=== PATIENT | female | born 1950 | race Caucasian/White ===

== ENCOUNTER 2023-02-19 15:50 | Outpatient (REF) | payer MEDICARE, MEDICAID, SELFPAY ==
[2023-02-20 09:32] LABS: Bilirubin Urine NEGATIVE (NEGATIVE); Blood Urine TRACE-I (NEGATIVE); Clarity Urine CLEAR (CLEAR); Color Urine LT. YELLOW (YELLOW); Glucose Urine UA 500 mg/dL (NEGATIVE); Ketones Urine 15 mg/dL (NEGATIVE); Leukocyte Esterase Urine SMALL (NEGATIVE); Nitrite Urine POSITIVE (NEGATIVE); Protein Urine NEGATIVE (NEG/TRACE); Urobilinogen Urine 0.2 EU/dL (0.2-1.0); pH Urine 5.5 (5.0-9.0)
[2023-02-20 09:41] LABS: Urine Microscopic Indicated YES
[2023-02-20 09:48] LABS: Bacteria Urine MODERATE #/HPF (NONE SEEN); Calcium Oxalate Crystals Urine RARE; Crystals Seen? Seen #/HPF (None Seen); Mucus Urine NONE SEEN (NONE SEEN); Squamous Epithelial Cell Urine FEW #/LPF (NONE/RARE)
[2023-02-20 09:49] LABS: Cast Seen? NONE SEEN #/LPF (NONE SEEN); Urine Culture Indicated YES
== END 2023-02-19 15:51 | disposition home or self-care (01) ==
LOC: LAB 15:50
PROVIDERS: PCP Family Medicine; Visit Provider Nurse Practitioner Family
DX: R41.82 Altered mental status, unspecified (principal)
CPT/HCPCS: 81001; 87086; 87150; 87186

== ENCOUNTER 2023-02-20 03:18 | Outpatient (REF) | payer MEDICARE, MEDICAID, SELFPAY ==
[2023-02-20 09:21] LABS: Basophils Absolute Auto 0.1 10^3/uL (0.0-0.1); Basophils Percent Auto 1.2 % (0.2-2.0); Eosinophils Absolute Auto 0.3 10^3/uL (0.0-0.7); Eosinophils Percent Auto 4.8 % (0.9-7.0); Hematocrit 36.6 % (36.0-48.0); Hemoglobin 11.7 g/dL (12.0-16.0); Immature Granulocytes Abs Auto 0.01 10^3/uL (0.00-0.03); Immature Granulocytes Pct Auto 0.2 % (0.0-0.5); Lymphocytes Absolute Auto 1.7 10^3/uL (1.2-3.8); Lymphocytes Percent Auto 28.7 % (20.5-60.0); Mean Corpuscular Hemoglobin 29.5 pg (26.7-34.0); Mean Corpuscular Volume 92.2 fL (81.0-99.0); Mean Platelet Volume 11.8 fL (9.5-13.5); Monocytes Absolute Auto 0.4 10^3/uL (0.3-0.8); Monocytes Percent Auto 7.6 % (1.7-12.0); Neutrophils Absolute Auto 3.4 10^3/uL (1.4-6.5); Neutrophils Percent Auto 57.5 % (43.0-75.0); Platelet Count 259 10^3/uL (150-450); Red Blood Count 3.97 10^6/uL (4.20-5.40); Red Cell Distribution Width 14.4 % (11.0-15.0); White Blood Count 5.8 10^3/uL (4.0-11.0)
[2023-02-20 09:48] LABS: Alanine Aminotransferase 18 U/L (14-59); Albumin Globulin Ratio 0.8; Alkaline Phosphatase 118 U/L (46-116); Anion Gap 11.4; Aspartate Amino Transferase 17 U/L (15-37); BUN Creatinine Ratio 12.7; Bilirubin Total 0.5 mg/dL (0.2-1.0); Calcium 9.6 mg/dL (8.5-10.1); Carbon Dioxide 28.7 mmol/L (21.0-32.0); Chloride 109 mmol/L (98-107); Estimated GFR (African America >60 (>=60); Estimated GFR (Non-African Ame >60 (>=60); Globulin 3.9 g/dL; Glucose 102 mg/dL (74-106); Potassium 3.1 mmol/L (3.5-5.1); Sodium 146 mmol/L (136-145); Total Protein 6.9 g/dL (6.4-8.2)
== END 2023-02-20 03:19 | disposition home or self-care (01) ==
LOC: LAB 03:18
PROVIDERS: PCP Family Medicine; Visit Provider Nurse Practitioner Family
DX: R41.82 Altered mental status, unspecified (principal)
CPT/HCPCS: 36415; 80053; 85025

== ENCOUNTER 2023-03-06 01:08 | Outpatient (REF) | payer MEDICARE, MEDICAID, SELFPAY ==
--- OUTSIDE RECORDS SUMMARY | 2023-03-06 01:11 | XMS_ITS | CCD ---
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 Mily Beckwith Primary Care Rosemary vailable Dr. Bruce Elias Attending Unavailable Dr. Bruce Elias Referring Unavailable Dr. Bruce Elias Referring Unavailable CHELITA Sandhu Attending Unavailable Lupe, Ms. 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 Repository (7 sources) Penicillins Drug Allergy 9 Hives, Other (See Comments) [facility] Medications Current Medications Medication Drug Class(es) Dates Sig (Normalized) Sig (Original) amLODIPine 5 mg oral tablet (1 source) Dihydropyridine Calcium Channel Shantel take 1 tablet by mouth in the morning amLODIPine (NORVASC) 5 mg tablet Take 1 tablet (5 mg total) by mouth in the morning. 0 Active apixaban 5 mg oral tablet (1 source) Factor Xa Inhibitor Start: 01-21-2023 take 1 tablet by mouth in the morning, then take 1 tablet by mouth at bedtime apixaban (ELIQUIS) 5 mg tablet Take 1 tablet (5 mg total) by mouth in the morning and 1 tablet (5 mg total) before bedtime. 60 tablet 2 01/21/2023 Active calcium carbonate 1250 mg / cholecalciferol 200 unt oral tablet (1 source) Vitamin D take 1 tablet by mouth once in the morning calcium carbonate-vitam in D3 (OSCAL 500 + D) 500 mg(1,250mg) -200 units per tablet Take 1 tablet by mouth in the morning and 1 tablet in the evening. Take with meals. 0 Active docusate sodium 50 mg / sennosides, residential 8.6 mg oral tablet (1 source) take 1 tablet by mouth in the morning sennosides-docu sate sodium (SENNA WITH DOCUSATE SODIUM) 8.6-50 mg Take 1 tablet by mouth in the morning. 0 Active 3 ml insulin aspart, human 100 unt/ml pen injector (17 sources) Insulin Analog insulin aspart U-100 (NovoLOG) 100 unit/mL (3 mL) insulin pen Inject under the skin. 0 Active insulin aspart ( NOVOLOG FLEXPEN U-100 INSULIN SUBCUTANEOUS) Inject subcutaneously. Per sliding scale 0 Active NovoLOG SOLN INJ ECT SUBCUTANEOUSLY DIRECTED. Quantity: 0 Refills: 0 Ordered: 04-Dec-2020 DO Active Comment on above: Inject subcutaneousl y. Per sliding scale insulin glargine 100 unt/ml injectable solution (1 source) Insulin Analog inject 0.15 mL by subcutaneous injection once daily insulin glargine (LANTUS) 100 unit/mL injection Inject 0.15 mL (15 Units total) under the skin nightly. 0 Active insulin lispro (HumaLOG) 100 unit/mL insulin pen (2 sources) Start: 01-22-20 23 insulin lispro (HumaLOG) 100 unit/mL insulin pen Inject 4 Units under the skin in the morning and 4 Units at noon and 4 Units in the evening. Inject with meals. 15 mL 12 01/21/2023 Active Start: 01-21-2023 inject 2-10 [IU] by subcutaneous injection four times daily at mealtime insulin lispro (HumaLOG) 100 unit/mL insulin pen Inject 2-10 Units under the skin 4 (four) times a day with meals and nightly. 15 mL 12 01/21/2023 Active levothyroxine sodium 0.15 mg oral tablet (17 sources) l-Thyroxine take 1 tablet by mouth in the morning levothyroxine (SYNTHROID, LEVOTHROID) 150 MCG tablet Take 1 tablet (150 mcg total) by mouth in the morning. 0 Active Comment on above: Take 150 mcg by mout h once daily. magnesium hydroxide 80 mg/ml oral suspension (1 source) take 30 mL by mouth once daily as needed magnesium hydroxide 400 mg/5 mL suspension Take 30 mL by mouth nightly as needed. 0 Active melatonin 3 mg oral capsule (1 source) take 1 capsule by mouth once daily as needed melatonin 3 mg capsule Take 3 mg by mouth nightly as needed (insomnia). 0 Active ondansetron 4 mg oral tablet (1 source) Serotonin-3 Receptor Antagonist take 1 tablet by mouth every eight hours as needed for nausea and vomiting ondansetron (ZOFRAN) 4 mg tablet Take 1 tablet (4 mg total) by mouth every 8 (eight) hours as needed for nausea or vomiting. 0 Active pregabalin 25 mg oral capsule (1 source) take 1 capsule by mouth in the morning, then take 1 capsule by mouth at bedtime pregabalin (LYRICA) 25 mg capsule Take 1 capsule (25 mg total) by mouth in the morning and 1 capsule (25 mg total) before bedtime. 0 Active sennosides, residential 8.6 mg oral tablet (1 source) Start: 023 take 1 tablet by mouth twice daily as needed for constipation senna (SENOKOT) 8.6 mg tablet Take 1 tablet (8.6 mg total) by mouth 2 (two) times a day as needed for constipation. 30 each 0 01/21/2023 Active 24 hr venlafaxine 37.5 mg extended release oral capsule (1 source) Serotonin and Norepinephrine Reuptake Inhibitor take 1 capsule by mouth every twenty-four hours in the morning venlafaxine XR (EFFEXOR XR) 37.5 mg 24 hr capsule Take 1 capsule (37.5 mg total) by mouth in the morning. 0 Active Completed/Discontinued Medications Medication Drug Class(es) Dates Sig (Normalized) Sig (Original) aspirin 81 mg chewable tablet (20 sources) Platelet Aggregation Inhibitor, Nonsteroidal Anti-inflammatory Drug Start: 07-04-2021 take 1 tablet by mouth once daily Aspirin 81 MG Oral Tablet Chewable CHEW AND SWALLOW 1 TABLET DAILY. Quantity: 90 Refills: 3 Ordered: 04-Jul-2021 Salas Yeung Start : 04-Jul-2021 Active take 1 tablet by mouth in the mo rning aspirin 81 mg Take 1 tablet (81 mg total) by mouth in the morning. 0 Active Comment on above: Take 81 mg by mouth once daily. atorvastatin 40 mg oral tablet (17 sources) HMG-CoA Reductase Inhibitor Start: 07-05-19 take 1 tablet by mouth once daily Atorvastatin Calcium 40 MG Oral Tablet TAKE 1 TABLET EVERY DAY Quantity: 90 Refills: 3 Ordered: 26-Aug-2022 Bruce Elias DO Start : 04-Jul-2021 Active Comment on above: Take 40 mg by mouth once daily. cilostazol 50 mg oral tablet (8 sources) Phosphodiesterase 3 Inhibitor take 1 tablet by mouth twice daily Cilostazol 50 MG Oral Tablet Take 1 tablet twice daily Quantity: 0 Refills: 0 Ordered: 05-Feb-2021 DO Active clopidogrel 75 mg oral tablet (9 sources) P2Y12 Platelet Inhibitor take 1 tablet by mouth once daily clopidogrel (PLAVIX) 75 mg tablet Take 75 mg by mouth once daily. 0 Active Plavix 75 MG Ora l Tablet Quantity: 0 Refills: 0 Ordered: 04-Dec-2020 DO Active Comment on above: Take 75 mg by mouth once daily. 3 ml insulin degludec 100 unt/ml pen injector (14 sources) Insulin Analog inject 5 [IU] by subcutaneous injection once daily at bedtime insulin degludec (TRESIBA FLEXTOUCH U-100) 100 unit/mL (3 mL) injection Inject 5 Units subcutaneously daily at bedtime. 0 Active Tresiba 100 UNIT /ML Subcutaneous Solution As directed. Quantity: 0 Refills: 0 Ordered: 05-Feb-2021 DO Active Comment on above: Inject 5 Units subcu taneously daily at bedtime. iv contrast (will be provided with radiology test) (20 sources) Start: 09-19-2020 iv contrast (will be provided with radiology test) CT Chest W -Inject, intravenously, once for 1 dose.No IV access, insert saline lock prior to the beginning of sedation, infusion, injection of imaging exam. Discontinue saline lock post exam. If Pt. has a central line or IVAD, may access for administration according to line specific nursing protocol. Once exam is complete flush line and de-access according to line specific nursing protocol in the CT contrast administration guidelines link. 1 Each 0 09/19/2020 Active Start: 04-25-2020 iv contrast (w ill be provided with radiology test) CT Chest W -Inject, intravenously, once for 1 dose.No IV access, insert saline lock prior to the beginning of sedation, infusion, injection of imaging exam. Discontinue saline lock post exam. If Pt. has a central line or IVAD, may access for administration according to line specific nursing protocol. Once exam is complete flush line and de-access according to line specific nursing protocol in the CT contrast administration guidelines link. 1 Each 0 04/25/2020 Active Start: 04-20-2019 inject 1 dose intravenously on ce iv contrast (will be provided with radiology test) CT Cardiac - No IV access, insert saline lock prior to the sedation, infusion, injection for imaging exam. Discontinue saline lock post exam. If Pt. has a central line or IVAD, may access for administration according to line specific nursing protocol. Once exam is complete flush line and de-access according to line specific nursing protocol in the CT contrast administration guidelines link. 1 Each 0 04/20/2019 Active Start: 10-13-2018 inject 1 dose intravenously on ce iv contrast (will be provided with radiology test) CT Cardiac - No IV access, insert saline lock prior to the sedation, infusion, injection for imaging exam. Discontinue saline lock post exam. If Pt. has a central line or IVAD, may access for administration according to line specific nursing protocol. Once exam is complete flush line and de-access according to line specific nursing protocol in the CT contrast administration guidelines link. 1 Each 0 10/13/2018 Active Comment on above: CT Cardiac - No IV a ccess, insert saline lock prior to the sedation, infusion, injection for imaging exam. Discontinue saline lock post exam. If Pt. has a central line or IVAD, may access for administration according to line specific nursing protocol. Once exam is complete flush line and de-access according to line specific nursing protocol in the CT contrast administration guidelines link. CT Chest W -Inject, intravenously, once for 1 dose.No IV access, insert saline lock prior to the beginning of sedation, infusion, injection of imaging exam. Discontinue saline lock post exam. If Pt. has a central line or IVAD, may access for administration according to line specific nursing protocol. Once exam is complete flush line and de-access according to line specific nursing protocol in the CT contrast administration guidelines link. losartan potassium 25 mg oral tablet (16 sources) Angiotensin 2 Receptor Shantel take 2 tablets by mouth once daily losartan (COZAAR) 25 mg tablet Take 50 mg by mouth once daily. 0 Active take 1 tablet by mouth once michelle y Losartan Potassium 50 MG Oral Tablet TAKE 1 TABLET DAILY. Quantity: 90 Refills: 3 Ordered: 11-Oct-2021 Salas Yeung Active correct dose and tablet form. take 1 tablet by mouth once michelle y Losartan Potassium 100 MG Oral Tablet TAKE 1 TABLET ONCE DAILY. Quantity: 3 Refills: 3 Ordered: 05-Feb-2021 Salas Yeung Active Comment on above: Take 50 mg by mouth once daily. 24 hr metoprolol succinate 100 mg extended release oral tablet (18 sources) beta-Adrenergic Shantel Start: 09-04-19 take 1 tablet by mouth once daily Metoprolol Succinate ER 100 MG Oral Tablet Extended Release 24 Hour TAKE 1 TABLET EVERY DAY Quantity: 90 Refills: 3 Ordered: 05-Sep-2021 Bruce Elias DO Start : 03-Sep-2021 Active Comment on above: Take 100 mg by mouth once daily. nitroglycerin 0.4 mg sublingual tablet (15 sources) Nitrate Vasodilator Start: 01-08-20 Nitroglycerin 0.4 MG Sublingual Tablet Sublingual PLACE 1 TABLET UNDER THE TONGUE EVERY 5 MINUTES FOR UP TO 3 DOSES NEEDED FOR CHEST PAIN. CALL 911 IF PAIN PERSISTS. Quantity: 1 Refills: 3 Ordered: 08-Jan-2022 Bruce Elias DO Start : 07-Jan-2022 Active Comment on above: Dissolve 0.4 mg unde r the tongue every 5 minutes as needed. Problems Active Problems Problem Classification Problem Date Documented Date Episodic/Chronic Acute and unspecified renal failure (1 source) Acute injury of kidney; Translations: [Acute kidney failure, unspecified] Onset: 01-16-2023 01-16-2023 Episodic Acute cerebrovascular disease (1 source) Ischemic stroke; Translations: [Cerebral infarction, unspecified] 12-16-2022 Chronic Aortic; peripheral; and visceral artery aneurysms (12 sources) Aneurysm of descending aorta; Translations: [Aortic aneurysm of unspecified site without mention of rupture] Onset: 11-19-2020 Resolved: 01-16-2023 11-19-2020 Chronic Chronic obstructive pulmonary disease and bronchiectasis (11 sources) Chronic obstructive lung disease; Translations: [Chronic airway obstruction, not elsewhere classified] Onset: 01-16-2023 01-16-2023 Chronic Coronary atherosclerosis and other heart disease (15 sources) Coronary arteriosclerosis; Translations: [Coronary atherosclerosis of unspecified type of vessel, [place] or graft] Onset: 09-05-2020 Chronic Diabetes mellitus with complications (2 sources) Diabetic ketoacidosis without coma; Translations: [Type 2 diabetes mellitus with ketoacidosis without coma] Onset: 01-08-2021 01-16-2023 Chronic Diabetes mellitus without complication (11 sources) Diabetes mellitus; Translations: [Diabetes mellitus without mention of complication, type II or unspecified type, not stated as uncontrolled] Onset: 03-11-2021 Chronic Disorders of lipid metabolism (13 sources) Hyperlipidemia; Translations: [Other and unspecified hyperlipidemia] Onset: 12-01-2014 12-16-2022 Chronic E Codes: Fall (1 source) Fall; Translations: [Unspecified fall, initial encounter] Onset: 01-16-2023 01-16-2023 Episodic Essential hypertension (13 sources) Hypertensive disorder; Translations: [Unspecified essential hypertension] Onset: 03-11-2021 12-16-2022 Chronic Fluid and electrolyte disorders (1 source) Metabolic acidosis, increased anion gap (IAG); Translations: [High anion gap metabolic acidosis] Onset: 01-16-2023 01-16-2023 Episodic Intestinal obstruction without hernia (1 source) Fecal impaction; Translations: [Fecal impaction] Onset: 01-18-2023 01-18-2023 Episodic Noninfectious gastroenteritis (1 source) Stercoral colitis; Translations: [Other specified noninfective gastroenteritis and colitis] Onset: 01-18-2023 01-18-2023 Episodic Occlusion or stenosis of precerebral arteries (1 source) Bilateral stenosis of carotid arteries; Translations: [Occlusion and stenosis of bilateral carotid arteries] Onset: 11-19-2020 11-19-2020 Chronic Other and ill-defined cerebrovascular disease (1 source) Cerebral arterial aneurysm; Translations: [Cerebral aneurysm, nonruptured] 12-16-2022 Chronic Other and ill-defined cerebrovascular disease (1 source) Aneurysm of middle cerebral artery; Translations: [Cerebral aneurysm, nonruptured] Onset: 01-16-2023 01-16-2023 Chronic Other circulatory disease (1 source) History of cerebrovascular accident; Translations: [Personal history of transient ischemic attack (TIA), and cerebral infarction without residual deficits] Onset: 12-26-2022 01-16-2023 Episodic Other nervous system disorders (4 sources) Spinal cord compression; Translations: [Unspecified disease of spinal cord] Chronic Other nutritional; endocrine; and metabolic disorders (10 sources) Overweight in adulthood with body mass index of 25 or more but less than 30; Translations: [Overweight] Episodic Other nutritional; endocrine; and metabolic disorders (2 sources) Body mass index 25-29 - overweight; Translations: [Body Mass Index 29.0-29.9, adult] Episodic Other screening for suspected conditions (not mental disorders or infectious disease) (1 source) Raised cardiac enzyme or marker; Translations: [Other specified abnormal findings of blood chemistry] Onset: 01-16-2023 01-16-2023 Episodic Peripheral and visceral atherosclerosis (6 sources) Peripheral vascular disease; Translations: [Peripheral vascular disease, unspecified] Onset: 11-19-2020 11-19-2020 Chronic Residual codes; unclassified (1 source) Pain, unspecified; Translations: [Pain, unspecified] Onset: 03-01-2023 Episodic Substance-related disorders (11 sources) Smokes tobacco daily; Translations: [Tobacco use disorder] 12-16-2022 Chronic Comment on above: 1/2 PPD; Past or Other Problems Problem Classification Problem Date Documented Da te Episodic/Chronic Acute myocardial infarction (11 sources) Myocardial infarction; Translations: [Subendocardial infarction, initial episode of care] Onset: 01-16-2023 Resolved: 01-16-2023 01-16-2023 Chronic Screening and history of mental health and substance abuse codes (1 source) Ex-smoker; Translations: [Personal history of nicotine dependence] Onset: 01-16-2023 Resolved: 01-16-2023 01-16-2023 Episodic Spondylosis; intervertebral disc disorders; other back problems (2 sources) Lumbar radiculopathy; Translations: [Radiculopathy, lumbar region] Onset: 11-27-2021 Resolved: 01-16-2023 11-27-2021 Episodic Results Test Name Value Interpretation Reference Range Facility [facility] SERALUCILA Stan ([id number]) 1950 F Date Time Provider Department 01/02/23 JAH DIAZ [facility] During your visit today, we recorded the following information about you: Lane Alarcon RN 01/02/2023 1:34 PM Signed Voice mail left for daughter to discuss plan of care for follow up of cerebral aneurysm as discussed with Dr Diaz at appointment. Imaging in 6 months versus cerebral angiogram. Requested daughter to either call this office or send a [facility] message with preference Elisa Lees 01/07/2023 12:30 PM Signed Daughter, Mila Kramer returned call - please call [phone]. Lane Alarcon RN 01/07/2023 12:43 PM Signed Attempted to return call, voice mail left for daughter with office number to return call to this office at her convenience. Jenny Moreno 01/07/2023 2:14 PM Signed Please call daughter back at [phone]. Until 4pm. Lane Alarcon RN 01/07/2023 2:43 PM Signed Returned call to patient's daughter, she states she and patient would like to follow up in 6 months with imaging so that patient has time to recover from stroke. Reviewed signs and symptoms of SAH and when to call 911. Asked daughter to call with any questions or concerns. 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 - metoprolol succinate ER (TOPROL XL) 100 mg Take 100 mg by mouth once daily. - clopidogrel (PLAVIX) 75 mg tablet Take 75 mg by mouth once daily. - nitroglycerin sublingual (NITROQUICK) 0.4 mg SL tablet Dissolve 0.4 mg under the tongue every 5 minutes as needed. - aspirin, enteric coated (ASPIRIN, ENTERIC COATED) 81 mg EC tablet Take 81 mg by mouth once daily. - iv contrast (will be provided with radiology test) CT Chest W -Inject, intravenously, once for 1 dose.No IV access, insert saline lock prior to the beginning of sedation, infusion, injection of imaging exam. Discontinue saline lock post exam. If Pt. has a central line or IVAD, may access for administration according to line specific nursing protocol. Once exam is complete flush line and de-access according to line specific nursing protocol in the CT contrast administration guidelines link. - iv contrast (will be provided with radiology test) CT Chest W -Inject, intravenously, once for 1 dose.No IV access, insert saline lock prior to the beginning of sedation, infusion, injection of imaging exam. Discontinue saline lock post exam. If Pt. has a central line or IVAD, may access for administration according to line specific nursing protocol. Once exam is complete flush line and de-access according to line specific nursing protocol in the CT contrast administration guidelines link. - iv contrast (will be provided with radiology test) CT Cardiac - No IV access, insert saline lock prior to the sedation, infusion, injection for imaging exam. Discontinue saline lock post exam. If Pt. has a central line or IVAD, may access for administration according to line specific nursing protocol. Once exam is complete flush line and de-access according to line specific nursing protocol in the CT contrast administration guidelines link. - losartan (COZAAR) 25 mg tablet Take 50 mg by mouth once daily. - levothyroxine (SYNTHROID) 150 mcg tablet Take 150 mcg by mouth once daily. - insulin degludec (TRESIBA FLEXTOUCH U-100) 100 unit/mL (3 mL) injection Inject 5 Units subcutaneously daily at bedtime. - insulin aspart (NOVOLOG FLEXPEN U-100 INSULIN SUBCUTANEOUS) Inject subcutaneously. Per sliding scale - iv contrast (will be provided with radiology test) CT Cardiac - No IV access, insert saline lock prior to the sedation, infusion, injection for imaging exam. Discontinue saline lock post exam. If Pt. has a central line or IVAD, may access for administration according to line specific nursing protocol. Once exam is complete flush line and de-access according to line specific nursing protocol in the CT contrast administration guidelines link. Problem List As Of Date: 01/02/2023 (None) Encounter Status:Closed by LNAE ALARCON on 01/02/23 [facility] 12-04-2022 [facility] Telephone ([facility]) LUCILA TINEO ([id number]) 1950 F Date Time Provider Department 12/04/22 NEUROLOGY PROVIDER [facility] During your visit today, we recorded the following information about you: Tonja Andre 12/04/2022 12:49 PM Signed ENDOVASCULAR INTAKE Patient name: Lucila Tineo Confirm Diagnosis/RFV (Reason for Visit): Aneurysm Is this a self-referral? no, who is the referring provider : Osei Majano [facility], [place]/His direct office number if any questions: [phone] Is this a direct referral? yes neurosurgeon Have you been recommended for surgery or procedure? Yes. coiling Are you seeking a second opinion? Yes. Do you have a MRI/MRA/CT/Ultrasound for this diagnosis? Yes. Type of imaging CT's, name/address of facility where completed [facility]. [Only has reports in folder, no images] Was there a previous surgery or procedure for this diagnosis/reason for visit? No. Are there any other health history we should know about? : Hypertension, Diabetic, 4.6 Stable Thoracic Aortic Aneurysm, along with recent ongoing issues with balance + peripheral vision Would you prefer a virtual visit or in-person visit? Virtual visit : what state will you be in at the time of the visit? 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 Did see a neurologist this past Thursday to clear patient to fly back home, adamant to get her in sooner > later. Please call him if any questions. Tonja Andre 12/09/2022 2:22 PM Addendum OSH imaging/records received from [facility]: December 04, 2022 -12.02.22 Dr. Majano Progress Notes scanned to chart. PENDING: -2022 Imaging -Medical Hx AND Imaging Reports Walked discs over to imaging library + gave to Adry to upload MAGDALENE. Successfully sent CARRI AND [employer] overnight label via [employer]~ Tracking#[id number] December 05, 2022 10:30 AM 07 [employer] Priority Overnight? $14.14 From: Theresa Andre Last change on 12/04/2022 12:16:46 pm Sent on 12/04/2022 12:16:33 pm Completed Tonja Andre 12/09/2022 2:25 PM Addendum OSH imaging/records received from [facility]: December 08, 2022 -12.02.22 Dr. Majano Progress Notes scanned to chart. -Medical Hx AND Imaging Reports available in Care Everywhere. Received confirmation email from [facility] that imaging hs been uploaded--per dropping off disc to imaging library to upload as I wasn't able to + kept getting error per below. Allergies As of Date: 12/04/2022 Noted Allergy Reaction PENICILLINS 10/11/2018 4 - Hives Date Reviewed: 09/20/2020 Reviewed by: Sepideh Mustafa LPN - Fully Assessed Reason for Visit: Future Appointment [256] Cmt: New Patient, [place], Any Prescriptions as of 02/11/2023 - atorvastatin (LIPITOR) 40 mg tablet Take 40 mg by mouth once daily. - metoprolol succinate ER (TOPROL XL) 100 mg Take 100 mg by mouth once daily. - clopidogrel (PLAVIX) 75 mg tablet Take 75 mg by mouth once daily. - nitroglycerin sublingual (NITROQUICK) 0.4 mg SL tablet Dissolve 0.4 mg under the tongue every 5 minutes as needed. - aspirin, enteric coated (ASPIRIN, ENTERIC COATED) 81 mg EC tablet Take 81 mg by mouth once daily. - iv contrast (will be provided with radiology test) CT Chest W -Inject, intravenously, once for 1 dose.No IV access, insert saline lock prior to the beginning of sedation, infusion, injection of imaging exam. Discontinue saline lock post exam. If Pt. has a central line or IVAD, may access for administration according to line specific nursing protocol. Once exam is complete flush line and de-access according to line specific nursing protocol in the CT contrast administration guidelines link. - iv contrast (will be provided with radiology test) CT Chest W -Inject, intravenously, once for 1 dose.No IV access, insert saline lock prior to the beginning of sedation, infusion, injection of imaging exam. Discontinue saline lock post exam. If Pt. has a central line or IVAD, may access for administration according to line specific nursing protocol. Once exam is complete flush line and de-access according to line specific nursing protocol in the CT contrast administration guidelines link. - iv contrast (will be provided with radiology test) CT Cardiac - No IV access, insert saline lock prior to the sedation, infusion, injection for imaging exam. Discontinue saline lock post exam. If Pt. has a central line or IVAD, may access for administration according to line specific nursing protocol. Once exam is complete flush line and de-access according to line specific nursing protocol in the CT contrast administration guidelines link. - losartan (COZAAR) 25 mg tablet Take 50 mg by mouth once daily. - levothyroxine (SYNTHROID) 150 mcg tablet Take 150 mcg by mouth once daily. - insulin degludec (TRESIBA FLEXTOUCH U-100) 100 unit (more content not included)... Normal [facility] SCREENING MAMMOGRAM W/SAULO, BILATERAL*on 04-24-2022 SCREENING MAMMOGRAM W/SAULO, BILATERAL* COMPARISON: November 20, 2020, September 28, 2015 TECHNIQUE: 2D and 3D Tomosynthesis of the right and left breasts was performed. FINDINGS: Breast composition demonstrates heterogeneously dense parenchyma. Typically benign calcifications. Overall appearance is stable. No suspicious microcalcifications, asymmetry, architectural distortion, or associated features are present. IMPRESSION: BIRADS 2: Benign mammogram COMMENT: Given dense breast tissue, recommend close correlation with self-breast and clinical exam findings. If any new symptoms or signs present clinically, recommend ultrasound to complement mammography. Board Certified Radiologist. Accredited by the ACR and FDA. MAMMOGRAPHY IS VERY IMPORTANT TO YOUR HEALTH. THE CURRENT [employer] GUIDELINES RECOMMENDS ANNUAL MAMMOGRAPHY BEGINNING AT AGE 40 THIS FACILITY USES A REMINDER SYSTEM TO ENSURE ALL PATIENTS RECEIVE REMINDER NOTIFICATIONS AT THE APPROPRIATE TIME BASED ON THE RECOMMENDATIONS OF THIS EXAM. 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 Office Visit (Cardiology)on 12-11-2021 Follow-up visit Diagnoses/Problems Assessed CAD (coronary artery disease) (414.00) (I25.10) NSTEMI, initial episode of care (410.71) (I21.4) Descending aortic aneurysm (441.9) (I71.9) HLD (hyperlipidemia) (272.4) (E78.5) Hypertension (401.9) (I10) COPD (chronic obstructive pulmonary disease) (496) (J44.9) Diabetes mellitus (250.00) (E11.9) Normal echocardiogram (V72.85) Overweight with body mass index (BMI) of 27 to 27.9 in adult (278.02,V85.23) (E66.3,Z68.27) Current every day smoker (305.1) (F17.200) 1/2 PPD PVD (peripheral vascular disease) (443.9) (I73.9) Lumbar cord compression (336.9) (G95.20) Orders CAD (coronary artery disease), HLD (hyperlipidemia) ALT - Alanine Aminotransferase, Serum; Status:Active - Retrospective Authorization; Requested for:11Dec2021; AST; Status:Active - Retrospective Authorization; Requested for:11Dec2021; Lipid Panel; Status:Active - Retrospective Authorization; Requested for:11Dec2021; CAD (coronary artery disease), HLD (hyperlipidemia), Hypertension Basic Metabolic Panel; Status:Active - Retrospective Authorization; Requested for:11Dec2021; Overweight with body mass index (BMI) of 27 to 27.9 in adult Healthy Weight Tips; Status:Complete - Retrospective Authorization; Done: 11Dec2021 Some eating tips that can help you lose weight.; Status:Complete - Retrospective Authorization; Done: 11Dec2021 SocHx: Current every day smoker You need to quit smoking.; Status:Complete - Retrospective Authorization; Done: 11Dec2021 Tobacco Use Screening; Status:Complete; Done: 11Dec2021 You need to stop smoking. Though it is not easy, more than half of all adult smokers have quit. We encourage you to write down all the reasons you should quit smoking and set a quit date for yourself. Ask us how we can help. You may also call 1-409-UTJGNOW for free resources and assistance.; Status:Complete - Retrospective Authorization; Done: 11Dec2021 Patient Instructions Please bring all medicines, vitamins, and herbal supplements with you when you come to the office. Prescriptions will not be filled unless you are compliant with your follow up appointments or have a follow up appointment scheduled as per instruction of your physician. Refills should be requested at the time of your visit. Patient provided Falls Prevention education sheet. Follow up in 1 year Chief Complaint LUCILA TINEO is being seen for an annual follow-up of. 71-year-old female who returns she is doing well from a cardiac standpoint she denies angina. She does admit to vascular claudication in addition to possible pseudoclaudication due to recent diagnosis of lumbar compression degenerative disc disease but she also has bilateral lower extremity vascular disease. Her vascular surgeon placed her on cilostazol over the past year; her clopidogrel has been discontinued. She has known history of ASHD with chronic occlusion of the RCA we tried to intervene on this 1 year ago in an antegrade fashion, she has left right collaterals and normal LV function. She remains on appropriate guideline directed medical therapies. Unfortunately she continues to smoke approximately half pack cigarettes daily. We counseled her extensively on the hazards of tobacco use, worsening of vascular and coronary atherosclerosis and acute coronary/vascular and neuro events, and benefits of smoking cessation. She otherwise remains on appropriate guideline directed medical therapies, will follow-up in 1 year Current Meds Medication NameInstruction Aspirin EC 81 MG Oral Tablet Delayed ReleaseTAKE 1 TABLET DAILY. Atorvastatin Calcium 40 MG Oral TabletTAKE 1 TABLET EVERY DAY Cilostazol 50 MG Oral TabletTake 1 tablet twice daily Levothyroxine Sodium 150 MCG Oral TabletTAKE 1 TABLET DAILY. Losartan Potassium 50 MG Oral TabletTAKE 1 TABLET DAILY. Metoprolol Succinate ER 100 MG Oral Tablet Extended Release 24 HourTAKE 1 TABLET EVERY DAY Nitroglycerin 0.4 [address] Tablet SublingualPL[address] 1 TABLET UNDER THE TONGUE EVERY 5 MINUTES FOR UP TO 3 DOSES NEEDED FOR CHEST PAIN.CALL 911 IF PAIN PERSISTS. NovoLOG SOLNINJECT SUBCUTANEOUSLY DIRECTED. Tresiba 100 UNIT/ML Subcutaneous SolutionAs directed. Allergies Medication Penicillins Recorded By: Celine Marrero; 11/06/2020 3:13:58 PM Social History Problems Caffeine use (V49.89) (Z78.9) 1 TEA DAILY Current every day smoker (305.1) (F17.200) 1/2 PPD No alcohol use No illicit drug use Vitals Vital Signs Recorded: 11Dec2021 11:20AM Heart Rate76, L Radial [id number], LUE, Sitting Cpzjybkou33, LUE, Sitting Height5 ft 4 in Pwhydg710 lb BMI Iiisgglhmr19.98 kg/m2 BSA Calculated1.79 Tobacco Usea) Yes Patient encouraged to stop using tobacco productsYes PHQ-2 #1. Over the last 2 weeks have you felt down, depressed or hopeless? (If yes, answer PHQ-9 below)No PHQ-2 #2. Over the last 2 weeks have you felt little interest or pleasure in doing things? (If yes, answer PHQ-9 below)No Fa (more content not included)... Normal [place] Tobacco Screening.on Adult depression screening assessment No [facility] [employer] DO Work Phone: Fall risk assessment b) One or more fall s in the last year [facility] [employer] DO Work Phone: Tobacco use status CPHS a) Yes [facility] [employer] DO Work Phone: Tobacco Screening. Yes [facility] [employer] 250 DO Work Phone: XR Spine Lumbar Complete w/F tyrone AND Mccormick 11-18-2021 XR Spine Lumbar Complete w/Flex AND Ext FINDINGS: Vertebral body heights are normal. Mild disc space loss lumbosacral region. Sclerosis involves posterior elements of the mid and distal lumbar spine; however, no acute spondylolysis is seen. SI joints are normal. No acute fracture is identified. Soft tissues are relatively unremarkable. Flexion and extension: T12-L1 - L3-4: Normal alignment, no change L4-5: 4 mm anterolisthesis, no change L5-S1: Normal alignment, no change IMPRESSION: 1. Distal lumbar arthritis, L4-5 anterolisthesis 2. No change with flexion and extension Report reported and signed by Silviano Roth on 11/18/2021 1519 Normal [facility] [employer] US Venous, Bilateral, Lower Mccormick 10-02-2021 US Venous, Bilateral, Lower Ext FINDINGS: The deep venous system of bilateral lower extremities exhibits full compressibility and normal flow augmentation. These specifically include the common femoral, superficial femoral, popliteal, and visualized anterior tibialis, posterior tibialis, and peroneal veins. No evidence of deep venous thrombosis is present. Greater saphenous vein is patent. No cystic or soft tissue mass in the popliteal fossa. 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 Left system no significant disease Daily activity > 4 METs without recurrent symptoms Current every day smoker (305.1) (F17.200) 1/2 PPD has 'cut pack' < 1/2 pack Chantix - 'wacky' Wellbutrin - 'cry all the time' Overweight with body mass index (BMI) of 28 to 28.9 in adult (278.02,V85.24) (E66.3,Z68.28) Reviewed the merits of healthy lifestyle choices on overall cardiovascular health. Descending aortic aneurysm (441.9) (I71.9) Follows annually with [facility] Diabetes mellitus (250.00) (E11.9) Well controlled On statin/ARB Type I HLD (hyperlipidemia) (272.4) (E78.5) Moderate Intesnity Statin Sep 2020 HDL 60, LDL 93 Normal echocardiogram (V72.85) July 2020 LVEF 65-70% Orders Hypertension Changed: From Losartan Potassium 50 MG Oral Tablet TAKE 1 TABLET DAILY To Losartan Potassium 100 MG Oral Tablet TAKE 1 TABLET ONCE DAILY Basic Metabolic Panel; Status:Active; Requested for:[id number]; SocHx: Current every day smoker Tobacco Use Screening; Status:Complete; Done: [id number] Patient Instructions PLAN: Through informed decision making process incorporating patients unique circumstances, the following treatment plan will be initiated: 1. Prescription drug management of cardiovascular medication for efficacy, adherence to treatment, side effect assessment and polypharmacy. Current treatment clinically warranted and to continue with following modifications: - Increase cozaar 100mg po daily 2. Chem6 one week 3. Return for follow-up; in the interim, contact the office if new symptoms arise. 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 Discussed the dynamic nature of coronary artery disease and the importance of seeking medical attention if new symptoms arise. Continued every day tobacco use. Have reviewed the negative cardiovascular impact of nicotine. Continues to decline pharmacological assistance. Encourage healthy lifestyle choices including: - Heart Health Diet: eat plenty of nutrient-rich foods (fruits and veggies, whole grains, lean poultry and fish). Avoid saturated fats, trans fats and excess sodium and sugar. - Get at least 150 minutes per week of moderate-intensity aerobic activity. Brisk walking (at least 2.5 miles per hour), water aerobics, gardening, biking slower than 10 miles per hours. Any amount of movement is better than none. The simplest way to get moving and improve your health is to start walking. It's free, easy and can be done just about anywhere, even in place. Even if you have been sedentary for years, today is the day you can begin to make healthy changes in your life. Please bring all medicines, vitamins, and herbal supplements with you when you come to the office. Prescriptions will not be filled unless you are compliant with your follow up appointments or have a follow up appointment scheduled as per instruction of your physician. Refills should be requested at the time of your visit. Chief Complaint I have been doing ok LUCILA VANDERGRIFF is being seen for hypertension. Patient is ambulatory with steady gait. Last evaluated in clinic by Dr. Elias November 2020. Early Dec 2020 COVID+, hospitalized overnight and treated with infusion. Saw Client Service Representative inpatient at [facility] due to minimally elevated troponin. Fully recovered. Patient attends to own ADLs and functional ADLs. Patient daily activity includes: housework, vacuum and mop Patient ambulate in from parking lot without concerns. Patient denies change to exercise tolerance or functional capacity since last evaluation. Prior Angina: chest pain Last NTG use: none BP at home 130, wrist cuff. No sleep study History of Present Illness The patient presents for follow-up of essential hypertension. The patient states she has been doing well with her blood pressure control since the last visit. Comorbid Illnesses: coronary artery disease. Symptoms: denies impaired vision, denies dyspnea, denies chest pain, denies intermittent leg claudication and denies lower extremity edema. Associated symptoms include no headache, no focal neurologic deficits and no memory loss. Home monitoring: The patient checks her blood pressure regularly. Medications: the patient is adherent with her medication regimen. She denies medication side effects. Active Problems Problems CAD (coronary artery disease) (414.00) (I25.10) COPD (chronic obstructive pulmonary disease) (496) (J44.9) Current every day smoker (305.1) (more content not included)... Normal [place] Tobacco Screening.on Fall risk assessment a) No falls within the last year [facility] [employer] DO Work Phone: Tobacco use status CPHS a) Yes [facility] [employer] DO Work Phone: Tobacco Screening. Yes [facility] [employer] DO Work Phone: Tobacco Screening.on Fall risk assessment a) No falls within the last year [facility] 600 DO Work Phone: Tobacco use status CPHS a) Yes [facility] [employer] DO Work Phone: Tobacco Screening. Yes [facility] 600 DO Work Phone: Comprehensive Metabolic Pane dom 08-08-2020 Albumin [Mass/Vol] 3.1 g/dL Low 3.2-5.5 [facility] Comment on above: Performed By: #### C MP #### [address] Albumin/Globulin [Mass ratio] 0.9 {ratio} Normal [facility] Comment on above: Performed By: #### C MP #### [address] ALP [Catalytic activity/Vol] 98 U/L High 32-92 [facility] Comment on above: Performed By: #### C MP #### [address] ALT [Catalytic activity/Vol] 17 U/L Normal 10-60 [facility] Comment on above: Performed By: #### C MP #### [address] AST [Catalytic activity/Vol] 24 U/L Normal 10-42 [facility] Comment on above: Performed By: #### C MP #### [address] Bilirubin [Mass/Vol] 0.6 mg/dL Normal 0.3-1.2 [facility] Comment on above: Performed By: #### C MP #### [place] [address] [place] Calcium [Mass/Vol] 8.8 mg/dL Normal 8.2-10.2 [facility] Comment on above: Performed By: #### C MP #### [facility] [address] [place] [address] [place] Chloride [Moles/Vol] 103 mmol/L Normal 95-114 [facility] Comment on above: Performed By: #### C MP #### [address] CO2 [Moles/Vol] 20.4 mmol/L Low 22.0-30.0 [facility] Comment on above: Performed By: #### C MP #### [address] Creatinine [Mass/Vol] 1.06 mg/dL High 0.44-1.03 [facility] Comment on above: Performed By: #### C MP #### [address] Creatinine Clr Calc Pharmacy 49.44 [facility] Comment on above: Result Comment: PERF ORMED BY: [place] [address] PATHOLOGIST [employer]FF[employer]IEUTENANT DOMINGA SOLIMAN M.D. Performed By: #### C MP #### [address] Estimated GFR ( Vania > 60 [facility] Comment on above: Result Comment: GFR estimated reference range: According to KDOQI guidelines, <60 ml/min/1.73m2 is sufficient to diagnose a patient with chronic kidney disease. Performed By: #### C MP #### [address] Estimated GFR (Non- Am 51 [facility] Comment on above: Performed By: #### C MP #### [address] Globulin (S) [Mass/Vol] 3.3 g/dL [facility] Comment on above: Performed By: #### C MP #### [address] Glucose [Mass/Vol] 282 mg/dL High 70-100 [facility] Comment on above: Result Comment: [place] om Glucose Reference Range is dependent on time and content of last meal. Glucose of more than 200 mg/dL in a nonstressed, ambulatory subject supports the diagnosis of Diabetes Mellitus. ADA recommended reference range Performed By: #### C MP #### [address] Potassium [Moles/Vol] 4.5 mmol/L Normal 3.5-5.1 [facility] Comment on above: Performed By: #### C MP #### [facility] [address] Protein [Mass/Vol] 6.4 g/dL Normal 6.1-7.9 [facility] Comment on above: Performed By: #### C MP #### [facility] [address] Sodium [Moles/Vol] 134 mmol/L Low 136-146 [facility] Comment on above: Performed By: #### C MP #### [facility] [address] Urea nitrogen [Mass/Vol] 29 mg/dL High - [facility] Comment on above: Performed By: #### C MP #### [facility] [address] [place] [address] ECG 12 lead ECGon 08-08-2020 ECG 12 lead ECG [facility] [place] [address] [place] [address] Electrocardiograph Report Signed Patient: Lucila Tineo MR#: [id number] : 1950 Acct:[id number] Age/Sex: 70 / F ADM Date: 08/06/20 Loc: Room: [address] [place] [address] Type: ADM IN Attending Dr: Drew Patterson MD Ordering Provider: Jodi Elias DO Date of Service: 08/08/20 ECG/ECG 12 lead ECG: Post Angioplasty Procedure in AM Copies to: Test Reason : Blood Pressure : / mmHG Vent. Rate : 080 BPM Atrial Rate : 080 BPM P-R Int : 154 ms QRS Dur : 096 ms QT Int : 386 ms P-R-T Axes : 050 -03 -17 degrees QTc Int : 445 ms Normal sinus rhythm Incomplete right bundle branch block Voltage criteria for left ventricular hypertrophy Nonspecific ST abnormality Abnormal ECG When compared with ECG of 06-AUG-2020 21:11, No significant change was found Confirmed by MARSHALL CASTILLO MD ([id number]) on 08/08/2020 10:17:41 AM Referred By: Electronically Signed By:MARSHALL CASTILLO MD Transcribed By: MUS Dictated By: Marshall Castillo MD 08/08/20 0734 Signed By: 08/08/20 1017 Normal [facility] Glucose Poct Glucometerson 0 08-08-2020 Commemt1 Glu2: Cleaned Meter [facility] Comment on above: Result Comment: PERF ORMED BY: [place] [address] PATHOLOGIST [employer] DOMINGA SOLIMAN M.D. Performed By: #### P T, CBC, PTT #### [place] [address] [place] Glucose [Mass/Vol] 354 mg/dL Normal [facility] Comment on above: Result Comment: [place] om Glucose Reference Range is dependent on time and content of last meal. Glucose of more than 200 mg/dL in a nonstressed, ambulatory subject supports the diagnosis of Diabetes Mellitus. Performed By: #### P T, CBC, PTT #### [place] [address] [place] Commemt1 Glu2: Cleaned Meter [facility] Comment on above: Result Comment: PERF ORMED BY: [place] [address] PATHOLOGIST [employer] DOMINGA SOLIMAN M.D. Performed By: #### P T, CBC, PTT #### [place] [address] [place] Glucose [Mass/Vol] 380 mg/dL Normal [facility] Comment on above: Result Comment: [place] om Glucose Reference Range is dependent on time and content of last meal. Glucose of more than 200 mg/dL in a nonstressed, ambulatory subject supports the diagnosis of Diabetes Mellitus. Performed By: #### P T, CBC, PTT #### [facility] [address] [place] [address] [place] Glucose [Mass/Vol] 80 mg/dL Normal [facility] Comment on above: Result Comment: [place] om Glucose Reference Range is dependent on time and content of last meal. Glucose of more than 200 mg/dL in a nonstressed, ambulatory subject supports the diagnosis of Diabetes Mellitus. PERFORMED BY: [facility] [address] [place] [address] PATHOLOGIST TRAFF[employer]IE[employer]ENANT DOMINGA SOLIMAN M.D. Performed By: #### P T, CBC, PTT #### [address] Commemt1 [facility] Comment on above: Result Comment: Glu2 : FOLLOW HYPOGLYCEMIC Performed By: #### P T, CBC, PTT #### [address] Commemt2 Cleaned Meter [facility] Comment on above: Performed By: #### P T, CBC, PTT #### [address] Commemt3 WILL NOTIFY DR/RN [facility] Comment on above: Result Comment: PERF ORMED BY: [place] [address] PATHOLOGIST [employer] DOMINGA SOLIMAN M.D. Performed By: #### P T, CBC, PTT #### [address] Glucose [Mass/Vol] 42 mg/dL Off scale low [facility] Comment on above: Result Comment: [facility] Glucose Reference Range is dependent on time and content of last meal. Glucose of more than 200 mg/dL in a nonstressed, ambulatory subject supports the diagnosis of Diabetes Mellitus. Performed By: #### P T, CBC, PTT #### [facility] [address] [place] [address] Troponin I(TnI)on 08-08-2020 Troponin I.cardiac [Mass/Vol] 2.45 ng/mL Off scale high 0-0.02 [facility] Comment on above: Result Comment: [facility] [place] Cut off value > or equal to 0.03 ng/mL in conjunction with clinical conditions of myocardial infarction. (www.escardio.org/guidelines) PERFORMED BY: [place] [address] PATHOLOGIST [employer] DOMINGA SOLIMAN M.D. Performed By: #### T ROP #### [address] A1C with Estimated Average G jewell 08-07-2020 Glucose [Mass/Vol] 183 mg/dL Normal [facility] Comment on above: Result Comment: PERF ORMED BY: [place] [address] PATHOLOGIST [employer] DOMINGA SOLIMAN M.D. Performed By: #### G LULS #### Point of Care testing , HbA1c (Bld) [Mass fraction] 8.0 % High 4.3-5.6 [facility] Comment on above: Result Comment: Incr eased risk for diabetes: 5.7 - 6.4 diabetes: >6.4 glycemic control for adults with diabetes: <7.0 Performed By: #### G LULS #### Point of Care testing , Complete Blood Count Auto Di ffon 08-07-2020 Basophils (Bld) [#/Vol] 0.1 10*3/uL Normal 0.0-0.2 [facility] Comment on above: Result Comment: PERF ORMED BY: [place] [address] PATHOLOGIST [employer] DOMINGA SOLIMAN M.D. Performed By: #### G LULS #### Point of Care testing , Basophils/100 WBC (Bld) 1.4 % Normal . [facility] Comment on above: Performed By: #### G LULS #### Point of Care testing , Eosinophils (Bld) [#/Vol] 0.1 10*3/uL Normal 0.0-0.45 [facility] Comment on above: Performed By: #### G LULS #### Point of Care testing , Eosinophils/100 WBC (Bld) 2.6 % Normal . [facility] Comment on above: Performed By: #### G LULS #### Point of Care testing , Erythrocyte distribution width (RBC) [Ratio] 15.6 % High 11.9-15.3 [facility] Comment on above: Performed By: #### G LULS #### Point of Care testing , Hematocrit (Bld) [Volume fraction] 39.8 % Normal 34.0-46.4 [facility] Comment on above: Performed By: #### [place] MUNROE #### Point of Care testing , Hemoglobin (Bld) [Mass/Vol] 13.8 g/dL Normal 11.8-15.4 [facility] Comment on above: Performed By: #### [place] MUNROE #### Point of Care testing , Lymphocytes (Bld) [#/Vol] 1.5 10*3/uL Normal 1.00-4.8 [facility] Comment on above: Performed By: #### G ARVINDLS #### Point of Care testing , Lymphocytes/100 WBC (Bld) 26.4 % Normal . [facility] Comment on above: Performed By: #### [place] SAMUELSLS #### Point of Care testing , MCH (RBC) [Entitic mass] 30.9 pg Normal 24.7-34.3 [facility] Comment on above: Performed By: #### [place] SAMUELSLS #### Point of Care testing , MCV (RBC) [Entitic vol] 89.0 fL Normal 80-100 [facility] Comment on above: Performed By: #### [place] MUNROE #### Point of Care testing , Mean Corpuscular HGB Conc 34.8 g/dL Normal 32.0-35.0 [facility] Comment on above: Performed By: #### [place] MUNROE #### Point of Care testing , Monocytes (Bld) [#/Vol] 0.4 10*3/uL Normal 0.0-0.8 [facility] Comment on above: Performed By: #### [place] SAMUELSLS #### Point of Care testing , Monocytes/100 WBC (Bld) 7.0 % Normal . [facility] Comment on above: Performed By: #### [place] SAMUELSLS #### Point of Care testing , Neutrophils (Bld) [#/Vol] 3.6 10*3/uL Normal 1.8-7.7 [facility] Comment on above: Performed By: #### [place] SAMUELSLS #### Point of Care testing , Neutrophils/100 WBC (Bld) 62.6 % Normal . [facility] Comment on above: Performed By: #### G SHANEKA #### Point of Care testing , Nucleated RBC/100 WBC (Bld) [Ratio] 0.4 % Normal 0-0.5 [facility] Comment on above: Performed By: #### G SHANEKA #### Point of Care testing , Platelet mean volume (Bld) [Entitic vol] 9.1 fL Normal 6.3-10.7 [facility] Comment on above: Performed By: #### G SHANEKA #### Point of Care testing , Platelets (Bld) [#/Vol] 201 10*3/uL Normal 150-450 [facility] Comment on above: Performed By: #### G SHANEKA #### Point of Care testing , RBC (Bld) [#/Vol] 4.47 10*6/uL Normal 3.60-5.00 [facility] Comment on above: Performed By: #### G SHANEKA #### Point of Care testing , WBC (Bld) [#/Vol] 5.7 10*3/uL Normal 4.5-11.0 [facility] Comment on above: Performed By: #### [place] MUNROE #### Point of Care testing , Basophils (Bld) [#/Vol] 0.1 10*3/uL Normal 0.0-0.2 [facility] Comment on above: Result Comment: PERF ORMED BY: [place] [address] PATHOLOGIST [employer] DOMINGA SOLIMAN M.D. Performed By: #### P T, CBC, PTT #### [facility] [address] [place] [address] [place] Basophils/100 WBC (Bld) 0.7 % Normal . [facility] Comment on above: Performed By: #### P T, CBC, PTT #### [facility] [address] [place] [address] [place] Eosinophils (Bld) [#/Vol] 0.1 10*3/uL Normal 0.0-0.45 [facility] Comment on above: Performed By: #### P T, CBC, PTT #### [facility] [address] [place] [address] [place] Eosinophils/100 WBC (Bld) 1.5 % Normal . [facility] Comment on above: Performed By: #### P T, CBC, PTT #### [facility] [address] Erythrocyte distribution width (RBC) [Ratio] 15.4 % High 11.9-15.3 [facility] Comment on above: Performed By: #### P T, CBC, PTT #### [address] Hematocrit (Bld) [Volume fraction] 41.4 % Normal 34.0-46.4 [facility] Comment on above: Performed By: #### P T, CBC, PTT #### [address] Hemoglobin (Bld) [Mass/Vol] 14.0 g/dL Normal 11.8-15.4 [facility] Comment on above: Performed By: #### P T, CBC, PTT #### [address] Lymphocytes (Bld) [#/Vol] 2.0 10*3/uL Normal 1.00-4.8 [facility] Comment on above: Performed By: #### P T, CBC, PTT #### [place] [address] [place] Lymphocytes/100 WBC (Bld) 30.1 % Normal . [facility] Comment on above: Performed By: #### P T, CBC, PTT #### [place] [address] [place] MCH (RBC) [Entitic mass] 30.4 pg Normal 24.7-34.3 [facility] Comment on above: Performed By: #### P T, CBC, PTT #### [address] MCV (RBC) [Entitic vol] 89.6 fL Normal 80-100 [facility] Comment on above: Performed By: #### P T, CBC, PTT #### [facility] [address] Mean Corpuscular HGB Conc 33.9 g/dL Normal 32.0-35.0 [facility] Comment on above: Performed By: #### P T, CBC, PTT #### [facility] [address] Monocytes (Bld) [#/Vol] 0.4 10*3/uL Normal 0.0-0.8 [facility] Comment on above: Performed By: #### P T, CBC, PTT #### [facility] [address] Monocytes/100 WBC (Bld) 6.4 % Normal . [facility] Comment on above: Performed By: #### P T, CBC, PTT #### [address] Neutrophils (Bld) [#/Vol] 4.2 10*3/uL Normal 1.8-7.7 [facility] Comment on above: Performed By: #### P T, CBC, PTT #### [address] Neutrophils/100 WBC (Bld) 61.3 % Normal . [facility] Comment on above: Performed By: #### P T, CBC, PTT #### [facility] [address] [place] [address] [place] Nucleated RBC/100 WBC (Bld) [Ratio] 0.1 % Normal 0-0.5 [facility] Comment on above: Performed By: #### P T, CBC, PTT #### [facility] [address] Platelet mean volume (Bld) [Entitic vol] 8.9 fL Normal 6.3-10.7 [facility] Comment on above: Performed By: #### P T, CBC, PTT #### [facility] [address] [place] [address] [place] Platelets (Bld) [#/Vol] 197 10*3/uL Normal 150-450 [facility] Comment on above: Performed By: #### P T, CBC, PTT #### [facility] [address] RBC (Bld) [#/Vol] 4.62 10*6/uL Normal 3.60-5.00 [facility] Comment on above: Performed By: #### P T, CBC, PTT #### [facility] [address] WBC (Bld) [#/Vol] 6.8 10*3/uL Normal 4.5-11.0 [facility] Comment on above: Performed By: #### P T, CBC, PTT #### [facility] [address] [place] [address] Comprehensive Metabolic Pane dom 08-07-2020 Albumin [Mass/Vol] 3.4 g/dL Normal 3.2-5.5 [facility] Comment on above: Performed By: #### G LULS #### Point of Care testing , Albumin/Globulin [Mass ratio] 1.0 {ratio} Normal [facility] Comment on above: Performed By: #### G SHANEKA #### Point of Care testing , ALP [Catalytic activity/Vol] 107 U/L High 32-92 [facility] Comment on above: Performed By: #### G LULS #### Point of Care testing , ALT [Catalytic activity/Vol] 17 U/L Normal 10-60 [facility] Comment on above: Performed By: #### G ARVINDLS #### Point of Care testing , AST [Catalytic activity/Vol] 25 U/L Normal 10-42 [facility] Comment on above: Performed By: #### G ARVINDLS #### Point of Care testing , Bilirubin [Mass/Vol] 0.9 mg/dL Normal 0.3-1.2 [facility] Comment on above: Performed By: #### G LULS #### Point of Care testing , Calcium [Mass/Vol] 9.1 mg/dL Normal 8.2-10.2 [facility] Comment on above: Performed By: #### G ARVINDLS #### Point of Care testing , Chloride [Moles/Vol] 105 mmol/L Normal 95-114 [facility] Comment on above: Performed By: #### G ARVINDLS #### Point of Care testing , CO2 [Moles/Vol] 20.9 mmol/L Low 22.0-30.0 [facility] Comment on above: Performed By: #### G ARVINDLS #### Point of Care testing , Creatinine [Mass/Vol] 0.96 mg/dL Normal 0.44-1.03 [facility] Comment on above: Performed By: #### G ARVINDLS #### Point of Care testing , Creatinine Clr Calc Pharmacy 54.35 [facility] Comment on above: Performed By: #### G ARVINDLS #### Point of Care testing , Estimated GFR ( Vania > 60 [facility] Comment on above: Result Comment: GFR estimated reference range: According to KDOQI guidelines, <60 ml/min/1.73m2 is sufficient to diagnose a patient with chronic kidney disease. Performed By: #### G ARVINDLS #### Point of Care testing , Estimated GFR (Non- Am 57 [facility] Comment on above: Performed By: #### G ARVINDLS #### Point of Care testing , Globulin (S) [Mass/Vol] 3.5 g/dL [facility] Comment on above: Performed By: #### G ARVINDLS #### Point of Care testing , Glucose [Mass/Vol] 391 mg/dL High 70-100 [facility] Comment on above: Result Comment: [place] Glucose Reference Range is dependent on time and content of last meal. Glucose of more than 200 mg/dL in a nonstressed, ambulatory subject supports the diagnosis of Diabetes Mellitus. ADA recommended reference range Performed By: #### G ARVINDLS #### Point of Care testing , Potassium [Moles/Vol] 4.4 mmol/L Normal 3.5-5.1 [facility] Comment on above: Performed By: #### G ARVINDLS #### Point of Care testing , Protein [Mass/Vol] 6.9 g/dL Normal 6.1-7.9 [facility] Comment on above: Performed By: #### [place] MUNROE #### Point of Care testing , Sodium [Moles/Vol] 136 mmol/L Normal 136-146 [facility] Comment on above: Performed By: #### [place] MUNROE #### Point of Care testing , Urea nitrogen [Mass/Vol] 19 mg/dL Normal 9-23 [facility] Comment on above: Performed By: #### [place] MUNROE #### Point of Care testing , Albumin [Mass/Vol] 3.4 g/dL Normal 3.2-5.5 [facility] Comment on above: Performed By: #### [place] MUNROE #### Point of Care testing , Albumin/Globulin [Mass ratio] 0.9 {ratio} Normal [facility] Comment on above: Performed By: #### [place] MUNROE #### Point of Care testing , ALP [Catalytic activity/Vol] 100 U/L High 32-92 [facility] Comment on above: Performed By: #### [place] MUNROE #### Point of Care testing , ALT [Catalytic activity/Vol] 17 U/L Normal 10-60 [facility] Comment on above: Performed By: #### [place] MUNROE #### Point of Care testing , AST [Catalytic activity/Vol] 34 U/L Normal 10-42 [facility] Comment on above: Performed By: #### [place] MUNROE #### Point of Care testing , Bilirubin [Mass/Vol] 0.8 mg/dL Normal 0.3-1.2 [facility] Comment on above: Performed By: #### [place] MUNROE #### Point of Care testing , Calcium [Mass/Vol] 9.2 mg/dL Normal 8.2-10.2 [facility] Comment on above: Performed By: #### [place] MUNROE #### Point of Care testing , Chloride [Moles/Vol] 104 mmol/L Normal 95-114 [facility] Comment on above: Performed By: #### [place] MUNROE #### Point of Care testing , CO2 [Moles/Vol] 20.0 mmol/L Low 22.0-30.0 [facility] Comment on above: Performed By: #### G LULS #### Point of Care testing , Creatinine [Mass/Vol] 0.95 mg/dL Normal 0.44-1.03 [facility] Comment on above: Performed By: #### G LULS #### Point of Care testing , Creatinine Clr Calc Pharmacy 55.10 [facility] Comment on above: Result Comment: PERF ORMED BY: [facility] [address] [place] [address] PATHOLOGIST [employer] DOMINGA SOLIMAN M.D. Performed By: #### G LULS #### Point of Care testing , Estimated GFR ( Vania > 60 [facility] Comment on above: Result Comment: GFR estimated reference range: According to KDOQI guidelines, <60 ml/min/1.73m2 is sufficient to diagnose a patient with chronic kidney disease. Performed By: #### G LULS #### Point of Care testing , Estimated GFR (Non- Am 58 [facility] Comment on above: Performed By: #### G LULS #### Point of Care testing , Globulin (S) [Mass/Vol] 3.6 g/dL [facility] Comment on above: Performed By: #### G LULS #### Point of Care testing , Glucose [Mass/Vol] 271 mg/dL High 70-100 [facility] Comment on above: Result Comment: [place] Glucose Reference Range is dependent on time and content of last meal. Glucose of more than 200 mg/dL in a nonstressed, ambulatory subject supports the diagnosis of Diabetes Mellitus. ADA recommended reference range Performed By: #### G LULS #### Point of Care testing , Potassium [Moles/Vol] 4.0 mmol/L Normal 3.5-5.1 [facility] Comment on above: Performed By: #### G LULS #### Point of Care testing , Protein [Mass/Vol] 7.0 g/dL Normal 6.1-7.9 [facility] Comment on above: Performed By: #### G LULS #### Point of Care testing , Sodium [Moles/Vol] 136 mmol/L Normal 136-146 [facility] Comment on above: Performed By: #### G LULS #### Point of Care testing , Urea nitrogen [Mass/Vol] 15 mg/dL Normal 9-23 [facility] Comment on above: Performed By: #### G LULS #### Point of Care testing , [facility] echo transthoracicon [facility] echo transthoracic [facility] Main [place] [address] [place] [address] Echocardiogram Signed Patient: Lucila Tineo MR#: [id number] : 1950 Acct:[id number] Age/Sex: 70 / F ADM Date: 08/06/20 Loc: Room: [address] [place] [address] Type: ADM IN Attending Dr: Drew Patterson MD Ordering Provider: Bravo Abdi MD Date of Service: 08/06/20 [facility] echo transthoracic: NSTEMI, wall motion abnormalities Copies to: MD Cory Del Toro MD, [facility] Height: 64 in Weight: 167 lb Performed By: MARIA ALEJANDRA Pope BSA: 1.8 m2 BP: 156/88 mmHg HR: 92 Reason For Study: NSTEMI, wall motion abnormalities History: DM, HTN, Thoracic Aortic Aneurysm, Smoker Interpretation Summary Mild concentric left ventricular hypertrophy. Ejection Fraction = 65-70%. A variety of Doppler measurements indicate impaired left ventricular relaxation, which is associated with grade I/IV or mild diastolic dysfunction. Mitral valve annulus tissue Doppler imaging is consistent with elevated left atrial pressure. There is no prior echocardiogram noted for this patient. Procedure/Quality: A two-dimensional transthoracic echocardiogram with color flow and Doppler was performed. The study was technically good in quality. There is no prior echocardiogram noted for this patient. Left Ventricle: Mild concentric left ventricular hypertrophy. Left ventricular systolic function is normal. Ejection Fraction = 65-70%. A variety of Doppler measurements indicate impaired left ventricular relaxation, which is associated with grade I/IV or mild diastolic dysfunction. Mitral valve annulus tissue Doppler imaging is consistent with elevated left atrial pressure. Left Atrium: The left atrium appears normal in size. The atrial septum appears normal. Right Atrium: The right atrium appears normal in size. Right Ventricle: The right ventricular size, thickness and function are normal. Aortic Valve: The aortic valve is mildly sclerotic. Mitral Valve: The mitral valve is mildly sclerotic. There is trace mitral regurgitation. Tricuspid Valve: The tricuspid valve is normal. Pulmonic Valve: The pulmonic valve is not well visualized. Arteries: The aortic root is normal size. Pericardium/Pleura: No pericardial effusion seen. There is no pleural effusion. IVC/Hepatic Viens: The inferior vena cava is normal in size, with a normal collapsibility index. Miscellaneous: No thrombus, vegetation or mass is seen. Measurements with Normals IVSd: 1.4 cm (0.7-1.1 cm)LVIDd: 3.8 cm (3.7-5.4 cm) LVPWd: 1.0 cm (0.7-1.1 cm)LVIDs: 2.7 cm (2.3-3.6 cm) LA dimension: 2.8 cm(2.3-4.0 cm)Ao root diam: 2.8 cm(2.0-3.2 cm) Doppler with Normals MV E max sharlene: 74.4 cm/sec (0.8-1.3m/s) MV A max sharlene: 136.2 cm/sec(0.0-0.0m/s) MV E/A: 0.55 (<1.5) MMode/2D Measurements Calculations RVDd: 1.7 cm FS: 27.8 % Ao root area: 6.2 cm2 LVLd ap4: 5.6 cm TAPSE: 1.9 cm EDV(Teich): EDV(MOD-sp4): RV S Sharlene: 60.2 ml 39.3 ml 12.9 cm/sec ESV(Teich): LVLs ap4: 4.6 cm 27.3 ml ESV(MOD-sp4): EF(Teich): 54.7 % 10.8 ml EF(MOD-sp4): 72.5 % __ SV(MOD-sp4): LAV(MOD-sp4): LA A2 area: 18.5 cm2 28.5 ml 59.5 ml LAV(MOD-sp2): LA A4 area: 20.5 cm2 56.2 ml LA length (vol): 5.3 cm LA vol: 60.9 ml LA vol index: 33.6 ml/m2 Doppler Measurements Calculations MV dec time: 0.18 sec MV max PG: E/E' lat: MV dec slope: 35.0 mmHg 15.2 E/E' med: 414.2 cm/sec2 23.6 __ MR max sharlene: RAP systole: 296.8 cm/sec 5.0 mmHg MR max P.8 mmHg Transcribed By: DELANO 08/07/201126 Dictated By: Cory Vazquez MD, [facility] 08/07/20926 Signed By: 08/07/20 1127 [facility] Glucose Poct Glucometerson 0 08-07-2020 Commemt3 Cleaned Meter [facility] Comment on above: Result Comment: PERF ORMED BY: [address] [place] [address] PATHOLOGIST [employer] DOMINGA SOLIMAN M.D. Performed By: #### G SHANEKA #### Point of Care testing , Glucose [Mass/Vol] 503 mg/dL Off scale [facility] Comment on above: Result Comment: [facility] Glucose Reference Range is dependent on time and content of last meal. Glucose of more than 200 mg/dL in a nonstressed, ambulatory subject supports the diagnosis of Diabetes Mellitus. Performed By: #### G LULS #### Point of Care testing , Commemt1 Glu2: Cleaned Meter [facility] Comment on above: Result Comment: PERF ORMED BY: [facility] [address] [place] [address] PATHOLOGIST [employer] DOMINGA SOLIMAN M.D. Performed By: #### G LULS #### Point of Care testing , Glucose [Mass/Vol] 299 mg/dL [facility] Comment on above: Result Comment: [place] om Glucose Reference Range is dependent on time and content of last meal. Glucose of more than 200 mg/dL in a nonstressed, ambulatory subject supports the diagnosis of Diabetes Mellitus. Performed By: #### G LULS #### Point of Care testing , Commemt1 [facility] Comment on above: Result Comment: Glu2 : Will Repeat Test Performed By: #### G LULS #### Point of Care testing , Result Comment: Glu2 : WILL NOTIFY DR/RN Commemt2 Cleaned Meter [facility] Comment on above: Result Comment: PERF ORMED BY: [place] [address] PATHOLOGIST [employer] DOMINGA SOLIMAN M.D. Performed By: #### G LULS #### Point of Care testing , Glucose [Mass/Vol] 429 mg/dL Off scale high [facility] Comment on above: Result Comment: [place] om Glucose Reference Range is dependent on time and content of last meal. Glucose of more than 200 mg/dL in a nonstressed, ambulatory subject supports the diagnosis of Diabetes Mellitus. Performed By: #### G LULS #### Point of Care testing , Commemt1 Glu2: Cleaned Meter [facility] Comment on above: Performed By: #### P T, CBC, PTT #### [facility] [address] [place] [address]memt[address] WILL NOT[address]/SHREYA [facility] Comment on above: Performed By: #### G LULS #### Point of Care testing , Performed By: #### P T, CBC, PTT #### [facility] [address] [place] [address] Commemt3 Will Repeat Test [facility] Comment on above: Result Comment: PERF ORMED BY: [place] [address] PATHOLOGIST [employer] DOMINGA SOLIMAN M.D. Performed By: #### P T, CBC, PTT #### [facility] [address] [place] [address] Glucose [Mass/Vol] 429 mg/dL Off scale high [facility] Comment on above: Result Comment: [place] om Glucose Reference Range is dependent on time and content of last meal. Glucose of more than 200 mg/dL in a nonstressed, ambulatory subject supports the diagnosis of Diabetes Mellitus. Performed By: #### P T, CBC, PTT #### [facility] [address] [place] [address] Commemt1 Glu2: Cleaned Meter Normal [facility] Comment on above: Result Comment: PERF ORMED BY: [place] [address] PATHOLOGIST [employer] DOMINGA SOLIMAN M.D. Performed By: #### G LULS #### Point of Care testing , Glucose [Mass/Vol] 373 mg/dL Normal [facility] Comment on above: Result Comment: [place] om Glucose Reference Range is dependent on time and content of last meal. Glucose of more than 200 mg/dL in a nonstressed, ambulatory subject supports the diagnosis of Diabetes Mellitus. Performed By: #### G LULS #### Point of Care testing , Glucose [Mass/Vol] 261 mg/dL Normal [facility] Comment on above: Result Comment: [place] om Glucose Reference Range is dependent on time and content of last meal. Glucose of more than 200 mg/dL in a nonstressed, ambulatory subject supports the diagnosis of Diabetes Mellitus. PERFORMED BY: [place] [address] PATHOLOGIST [employer] DOMINGA SOLIMAN M.D. Performed By: #### P T, CBC, PTT #### [facility] [address] [place] [address] Lipid Panelon 08-07-2020 Cholesterol [Mass/Vol] 201 mg/dL High 140-200 [facility] Comment on above: Result Comment: Chol less than 200 mg/dl low risk Chol 201-239 mg/dl borderline risk Chol 240 mg/dl and greater high risk Performed By: #### G LULS #### Point of Care testing , Cholesterol in HDL [Mass/Vol] 49 mg/dL Normal 35-85 [facility] Comment on above: Result Comment: HDL CHOL ATP-III CLASSIFICATION Cardiovascular Risk HDL > or equal to 60 mg/dL LOW HDL < 40 mg/dL HIGH Performed By: #### G LULS #### Point of Care testing , Cholesterol.total/Ch olesterol in HDL [Mass ratio] 4.1 {ratio} Normal <5.0 [facility] Comment on above: Result Comment: PERF ORMED BY: [facility] [address] [place] [address] PATHOLOGIST [employer] DOMINGA SOLIMAN M.D. Performed By: #### G LULS #### Point of Care testing , LDL Cholesterol,Calculat ed 127 mg/dL High 0-100 [facility] Comment on above: Result Comment: LDL ATP III CLASSIFICATION LDL less than 100 mg/dL Optimal LDL 100-129 mg/dL Near or above optimal LDL 130-159 mg/dL Borderline high LDL 160-189 mg/dL High LDL greater than 189 mg/dL Very high Performed By: #### G LULS #### Point of Care testing , Triglyceride w/Reflex 126 mg/dL Normal 35-149 [facility] Comment on above: Result Comment: TRIG ATP III CLASSIFICATION TRIG less than 150 mg/dL Normal TRIG 150-199 mg/dL Borderline high TRIG 200-500 mg/dL High TRIG greater than 500 mg/dL Very high Standard traceable to the Center for Disease Conrtrol and Prevention (CDC) test method. Performed By: #### G LULS #### Point of Care testing , VLDL CHOLESTEROL 25 mg/dL Normal [facility] Comment on above: Performed By: #### G LULS #### Point of Care testing , Magnesiumon 08-07-2020 Magnesium [Mass/Vol] 2.0 mg/dL Normal 1.6-2.6 [facility] Comment on above: Performed By: #### G LULS #### Point of Care testing , Partial Thromboplastin Timeo n 08-07-2020 aPTT Coag (Bld) [Time] 42.8 s High 25.1-36.5 [facility] Comment on above: Result Comment: PERF ORMED BY: [place] [address] PATHOLOGIST [employer] DOMINGA SOLIMAN M.D. Performed By: #### G LULS #### Point of Care testing , aPTT Coag (Bld) [Time] 33.2 s Normal 25.1-36.5 [facility] Comment on above: Result Comment: PERF ORMED BY: [place] [address] PATHOLOGIST [employer] DOMINGA SOLIMAN M.D. Performed By: #### P T, CBC, PTT #### [address] Prothrombin Time INRon 08-07 INR Coag (PPP) [Relative time] 1.0 {INR} Normal [facility] Comment on above: Result Comment: INR Therapeutic Range A) Pre- and Peroperative OAT started two weeks before surgery. NOT HIP SURGERY: 1.5 - 2.5 HIP SURGERY: 2 - 3 B) Primary and secondary prevention of venous THROMBOSIS: 2 - 3 C) Active venous thrombosis, pulmonary embolism and prevention of recurrent venous thrombosis: 2 - 3 D) Prevention of arterial thromboembolism including patients with mechanical heart valves: 3 - 4.5 Performed By: #### G LULS #### Point of Care testing , PT Coag (PPP) [Time] 11.4 s Normal 9.0-12.9 [facility] Comment on above: Performed By: #### G LULS #### Point of Care testing , INR Coag (PPP) [Relative time] 1.0 {INR} Normal [facility] Comment on above: Result Comment: INR Therapeutic Range A) Pre- and Peroperative OAT started two weeks before surgery. NOT HIP SURGERY: 1.5 - 2.5 HIP SURGERY: 2 - 3 B) Primary and secondary prevention of venous THROMBOSIS: 2 - 3 C) Active venous thrombosis, pulmonary embolism and prevention of recurrent venous thrombosis: 2 - 3 D) Prevention of arterial thromboembolism including patients with mechanical heart valves: 3 - 4.5 Performed By: #### P T, CBC, PTT #### [facility] [address] PT Coag (PPP) [Time] 11.2 s Normal 9.0-12.9 [facility] Comment on above: Performed By: #### P T, CBC, PTT #### [facility] [address] [place] [address] [place] Troponin I(TnI)on 08-07-2020 Troponin I.cardiac [Mass/Vol] 3.26 ng/mL Off scale high 0-0.02 [facility] Comment on above: Result Comment: KRISTI CO Cut off value > or equal to 0.03 ng/mL in conjunction with clinical conditions of myocardial infarction. (www.escardio.org/guidelines) PERFORMED BY: [place] [address] PATHOLOGIST [employer]FF[employer] LIEUTENANT DOMINGA SOLIMAN M.D. Performed By: #### P T, CBC, PTT #### [facility] [address] [place] [address] [place] Troponin I.cardiac [Mass/Vol] 3.61 ng/mL Off scale high 0-0.02 [facility] Comment on above: Result Comment: KRISTI CO Cut off value > or equal to 0.03 ng/mL in conjunction with clinical conditions of myocardial infarction. (www.escardio.org/guidelines) PERFORMED BY: [place] [address] PATHOLOGIST [employer]IE[employer]ENANT DOMINGA SOLIMAN M.D. Performed By: #### T ROP #### [facility] [address] [place] [address] [place] Troponin I.cardiac [Mass/Vol] 4.39 ng/mL Off scale high 0-0.02 [facility] Comment on above: Result Comment: Resu lts called at 0009 on 08/07/20 KRISTI CO Cut off value > or equal to 0.03 ng/mL in conjunction with clinical conditions of myocardial infarction. (www.escardio.org/guidelines) PERFORMED BY: [place] [address] PATHOLOGIST [employer] LIE[employer]ENANT DOMINGA SOLIMAN M.D. Performed By: #### P T, CBC, PTT #### [facility] [address] [place] [id number] [facility] ECG 12 lead ECGon 08-06-2020 ECG 12 lead ECG [facility] [place] [address] [place] [address] Electrocardiograph Report Signed Patient: Lucila Tineo MR#: [id number] : 1950 Acct:[id number] Age/Sex: 70 / F ADM Date: 08/06/20 Loc: Room: [address] [place] [address] Type: ADM IN Attending Dr: Drew Patterson MD Ordering Provider: Drew Patterson MD Date of Service: 08/06/20 ECG/ECG 12 lead ECG: pt evaluation Copies to: Test Reason : Blood Pressure : / mmHG Vent. Rate : 082 BPM Atrial Rate : 082 BPM P-R Int : 150 ms QRS Dur : 078 ms QT Int : 404 ms P-R-T Axes : 041 -09 -08 degrees QTc Int : 472 ms Normal sinus rhythm Left ventricular hypertrophy with repolarization abnormality Abnormal ECG When compared with ECG of 06-AUG-2020 21:11, (Unconfirmed) No significant change was found Confirmed by MARSHALL CASTILLO MD ([id number]) on 08/07/2020 5:12:45 PM Referred By: Electronically Signed By:MARSHALL CASTILLO MD Transcribed By: MUS Dictated By: Marshall Castillo MD 08/06/202110 Signed By: 08/07/20 1712 [facility] Vital Signs Date Time Vital Sign Value Performing Clinician Faci lity 12-11-2021 11:20-0400 Body height 162.56 cm Mily [facility] Work Phone: 12-11-2021 11:20-0400 Body mass index (BMI) [Ratio] 27.98 kg/m2 Mily Andrade Work Phone: [facility] 250 DO Work Phone: 12-11-2021 11:20-0400 Body surface area Derived from formula 1.79 m2 Mily Ashley Andrade Work Phone: [facility] 250 DO Work Phone: 12-11-2021 11:20-0400 Body weight 73.94 kg Mily Ashley Andrade Work Phone: [facility] 250 DO Work Phone: 12-11-2021 11:20-0400 Diastolic blood pressure 78 mm[Hg] Mily Ashley Andrade Work Phone: [facility] 250 DO Work Phone: 12-11-2021 11:20-0400 Heart rate 76 /min Mily Gonzalezzpatrick Work Phone: [facility] DO Work Phone: 12-11-2021 11:20-0400 Systolic blood pressure 136 mm[Hg] Mily Gonzalezzpatrick Work Phone: [facility] 250 DO Work Phone: 02-05-2021 11:35-0500 Body height 162.56 cm Mily Gonzalezzpatrick Work Phone: [facility] 250 DO Work Phone: 02-05-2021 11:35-0500 Body mass index (BMI) [Ratio] 28.67 kg/m2 Mily Ashley Andrade Work Phone: [facility] 250 DO Work Phone: 02-05-2021 11:35-0500 Body surface area Derived from formula 1.81 m2 Mily Ashley Andrade Work Phone: [facility] 250 DO Work Phone: 02-05-2021 11:35-0500 Body weight 75.75 kg Mily Ashley Andrade Work Phone: [facility] 250 DO Work Phone: 02-05-2021 11:35-0500 Diastolic blood pressure 81 mm[Hg] Mily Ashley Andrade Work Phone: [facility] 250 DO Work Phone: 02-05-2021 11:35-0500 Heart rate 77 /min Mily Ashley Andrade Work Phone: [facility] 250 DO Work Phone: 02-05-2021 11:35-0500 Systolic blood pressure 157 mm[Hg] Mily Ashley Andrade Work Phone: [facility] DO Work Phone: 12-04-2020 15:01-0400 Diastolic blood pressure 72 mm[Hg] Bruce Elias DO Work Phone: [facility] 600 DO Work Phone: 12-04-2020 15:01-0400 Systolic blood pressure 170 mm[Hg] Bruce Elias DO Work Phone: [facility] 600 DO Work Phone: 12-04-2020 13:53-0400 Body height 162.56 cm Bruce Elias DO Work Phone: [facility] 600 DO Work Phone: 12-04-2020 13:53-0400 Body mass index (BMI) [Ratio] 29.01 kg/m2 Bruce Elias DO Work Phone: [facility] 600 DO Work Phone: 12-04-2020 13:53-0400 Body surface area Derived from formula 1.82 m2 Bruce Elias DO Work Phone: [facility] 600 DO Work Phone: 12-04-2020 13:53-0400 Body weight 76.66 kg Bruce Elias DO Work Phone: -[facility] 600 DO Work Phone: 12-04-2020 13:53-0400 Diastolic blood pressure 90 mm[Hg] Bruce Elias DO Work Phone: -[facility] 600 DO Work Phone: 12-04-2020 13:53-0400 Heart rate 68 /min Bruce Elias DO Work Phone: -[facility] 600 DO Work Phone: 12-04-2020 13:53-0400 Systolic blood pressure 150 mm[Hg] Bruce Elias DO Work Phone: -[facility] 600 DO Work Phone: 11-06-2020 15:18-0400 70 1 Bruce Elias DO Work Phone: [facility] 600 DO Work Phone: Comment on above: [id number] Encounters Encounter Date Encounter Type Care Provider Facility Start: 03-05-2023 Telephone encounter Corrie Goldstein [facility] Start: 03-02-2023 ambulatory [facility] Start: 03-01-2023 ambulatory [facility] Start: 01-20-2023 ambulatory Jah Diaz MD Work Phone: [facility] Comment on above: Anticoag Start: 01-16-2023 ambulatory Jah Diaz MD Work Phone: [facility] Comment on above: Images Start: 01-02-2023 Telephone encounter Jah Diaz MD Work Phone: [facility] 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 Start: 12-16-2022 End: 12-16-2022 ambulatory Jah Diaz MD Work Phone: [facility] Comment on above: Unruptured cerebral aneurysm (Primary Dx); Ischemic stroke (HCC); Hypertension, unspecified type; Hyperlipidemia, unspecified hyperlipidemia type; Smoking Start: 12-16-2022 End: 12-16-2022 Telemedicine consultation with patient Jah Diaz MD Work Phone: [facility] Start: 12-04-2022 Telephone encounter Neurology Provid er [facility] Comment on above: Future Appointment ( New Patient, [place], Any) Start: 08-25-2022 Rx Renewal Mily boswell Work Phone: [facility] 250 DO Work Phone: Start: 01-07-2022 Rx Renewal Mily Gaitan andreia Work Phone: [facility] 250 DO Work Phone: Start: 12-11-2021 Office outpatient vi sit 15 minutes Mily Ashley Andrade Work Phone: [facility] 250 DO Work Phone: Start: 12-11-2021 ambulatory Ms. Mily ramos Andrade Facility: Start: 10-11-2021 Telephone encounter Mily A Andrade Work Phone: [facility] 250 DO Work Phone: Start: 09-03-2021 Rx Renewal Mily Gaitan andreia Work Phone: [facility] 250 DO Work Phone: Start: 02-05-2021 Office outpatient vi sit 10 minutes Mily A Andrade Work Phone: [facility] 250 DO Work Phone: Start: 02-05-[address] Bruce Elias [facility]: Start: 12-04-2020 Patient encounter procedure Bruce Elias DO Work Phone: [facility] 600 DO Work Phone: Start: 09-05-2020 End: 03-06-2021 ambulatory SALAS ADORNOSANDHU Facility: Echocardiogram normal Mily A Andrade Work Phone: [facility] 250 DO Work Phone: Procedures Date Procedure Procedure Detail Performing Clinician Appendectomy Bruce Elias DO Work Phone: Decompression of median nerve Bruce Elias DO Work Phone: Excision of cyst Bruce zambrano DO Work Phone: Hysterectomy Bruce Elias DO Work Phone: Ligation of fallopian tube Jodi gómez Curt DO Work Phone: Percutaneous translu darryl coronary angioplasty Bruce Elias DO Work Phone: Tonsillectomy Bruce ramos DO Work Phone: Total colonoscopy Bruce robin DO Work Phone: Plan of Treatment Date Care Activity Detail Author Start: 06-09-2028 DTaP,Tdap and Td Vaccines (2 - Td or Tdap) DTaP,Tdap and Td Vaccines (2 - Td or Tdap) [facility] Start: 06-09-2028 Urine microalbumin profile DTaP,Tdap,Td Vaccine (2 - Td or Tdap) [facility] Start: 01-16-2026 Diabetes Screening Diabetes Screening [facility] Start: 01-22-2024 Adult BMI Screening Adult BMI Screening [facility] Start: 01-19-2024 Tobacco Screening Tobacco Screening [facility] Start: 03-06-2023 End: 03-06-2023 Patient encounter procedure 03/06/2023 10:15 AM EST Office Visit [facility] [address] [place] [address] Vipul Chatman MD [address] [place] [address] [facility] Start: 12-11-2022 FUV, Provider: Bruce Elias, Status: Pen, Time: 10:20 AM FUV, Provider: Bruce Elias, Status: Pen, Time: 10:20 AM -[facility] DO Work Phone: Start: 10-31-2022 Covid-19 Vaccine () Covid-19 Vaccine () [facility] Start: 10-31-2022 Influenza vaccination [facility] Start: 03-02-2022 Advance Directive Discussion Advance Directive Discussion [facility] Start: 03-02-2022 Depression Assessment Depression Assessment [facility] Start: 12-11-2021 FUV, Provider: Bruce Elias, Status: Pen, Time: 11:20 AM FUV, Provider: Bruce Elias, Status: Pen, Time: 11:20 AM [facility] 600 DO Work Phone: Start: 02-19-2021 NURSEVST, Provider: DAVID LANDEROS STUDENT 1,[id number], Status: Pen, Time: 11:00 AM NURSEVST, Provider: DAVID LANDEROS STUDENT 1,[id number], Status: Pen, Time: 11:00 AM -[facility] DO Work Phone: Start: 01-09-2021 FUV, Provider: Salas Wilson, Status: Pen, Time: 1:30 PM FUV, Provider: Salas Wilson, Status: Pen, Time: 1:30 PM -[facility] 600 DO Work Phone: Start: 04-03-2020 Administration of varicella zoster vaccine Zoster (Shingles) Vaccine (2 of 2) [facility] Start: 04-03-2020 Shingrix Vaccine (2 of 2) Shingrix Vaccine (2 of 2) [facility] Start: 2015 Bone Density Screening Bone Density Screening [facility] Start: 2015 Fall Risk Screening Fall Risk Screening [facility] Start: 2010 RSV Vaccine (1 - 1-dose 60+ series) RSV Vaccine (1 - 1-dose 60+ series) [facility] Start: 02-22-2000 Shingrix Vaccine (1 of 2) Shingrix Vaccine (1 of 2) [facility] Start: 1995 Cologuard (FIT-DNA) Cologuard (FIT-DNA) [facility] Start: 1995 Colonoscopy Colonoscopy [facility] Start: 1995 Colorectal Cancer Screening Colorectal Cancer Screening [facility] Start: [address] COLONOGRAPHY [facility] Start: 1995 Diabetes Screening Diabetes Screening [facility] Start: 1995 Fecal Occult Blood Fecal Occult Blood [facility] Start: 1995 Lipid 1996 panel - Serum or Plasma Lipid Screening [facility] Start: 1995 SIGMOIDOSCOPY SIGMOIDOSCOPY [facility] Start: 1990 Mammography Mammogram Screening [facility] Start: 1969 Urine microalbumin profile DTaP,Tdap,Td Vaccine (1 - Tdap) [facility] Start: 02-22-1968 Adult BMI Follow Up Plan Adult BMI Follow Up Plan [facility] Start: 02-22-1968 Diabetic foot examination Diabetic Foot Exam [facility] Start: 02-22-1968 Hepatitis C Screening Hepatitis C Screening [facility] Start: 1962 Depression Screening Depression Screening [facility] Start: 02-22-1956 Pneumococcal Vaccine: 65+ (1 - PCV) Pneumococcal Vaccine: 65+ (1 - PCV) [facility] Start: 1950 Glaucoma screening Diabetic Ophthalmology Exam [facility] Start: 1950 Medicare Annual Wellness Visit Medicare Annual Wellness Visit [facility] Start: 1950 Tobacco Counseling Tobacco Counseling [facility] Start: 1950 Urine screening for protein Urine Microalbumin [facility] Immunizations Immunization Date Immunization Notes Care Provider Ronny naylor 05-16-2022 influenza virus vaccine, unspecified formulation Jah Diaz MD Work Phone: [facility] 04-10-2021 Moderna COVID-19 Vaccine 100 MCG/0.5ML Intramuscular Suspension [facility]ily [facility] Work Phone: 05-09-2020 Lico COVID-19 Vaccine 0.5 ML Intramuscular Suspension Bruce Elias DO Work Phone: [facility] 02-07-2020 influenza, high dose seasonal, preservative-free [facility] DO [facility] Work Phone: 02-07-2020 zoster vaccine recombinant Bruce Elias DO Work Phone: [facility] 600 DO Work Phone: 02-07-2020 influenza virus vaccine, unspecified formulation Neurology Provider [facility] 02-07-2020 zoster vaccine, unspecified formulation Corrie Goldstein [facility] 03-02-2019 influenza, seasonal, injectable [facility] DO [facility] Work Phone: 02-14-2019 influenza, high dose seasonal, preservative-free Bruce Eli[facility] DO [facility] Work Phone: 06-09-2018 tetanus toxoid, redu clif diphtheria toxoid, and acellular pertussis vaccine, adsorbed Bruce Eli[facility] DO [facility] DO Work Phone: 03-02-2018 pneumococcal polysaccharide vaccine, 23 valent Bruce [facility] DO [facility] Work Phone: 12-02-2017 influenza, high dose seasonal, preservative-free Bruce [facility] DO [facility] Work Phone: 02-25-2017 influenza, high dose seasonal, preservative-free Bruce Elisa DO Work Phone: [facility] 600 DO Work Phone: 02-17-2017 pneumococcal polysaccharide vaccine, 23 valent Bruce Elias DO Work Phone: [facility] 600 DO Work Phone: 11-06-2015 influenza, injectabl e, quadrivalent, contains preservative Bruce Elias DO Work Phone: [facility] 600 DO Work Phone: 11-06-2015 pneumococcal conjuga te vaccine, 13 valent Bruce Elias DO Work Phone: [facility] 600 DO Work Phone: 12-15-2013 influenza, seasonal, injectable Bruce Elias DO Work Phone: [facility] 600 DO Work Phone: 12-21-2012 influenza, seasonal, injectable Bruce Elias DO Work Phone: [facility] 600 DO Work Phone: 12-16-2006 pneumococcal polysaccharide vaccine, 23 valent Bruce Elias DO Work Phone: [facility] 600 DO Work Phone: 11-18-2006 pneumococcal polysaccharide vaccine, 23 valent Bruce Elias DO Work Phone: [facility] 600 DO Work Phone: Payers Date Payer Category Payer Medicare [id number] 1959 Medicare [id number] 1950 Unknown [id number] 1950 Unknown [id number] 1950 Unknown [id number] 1950 Unknown [id number] 1950 Unknown [id number] Unknown Social History Date Type Detail Facility Start: 10-14-2018 End: 05-08-2020 No alcohol use No alcohol use [facility] Comment on above: 1 TEA DAILY; 1/2 PPD; Start: 10-14-2018 End: 05-27-2022 Tobacco smoking status NHIS Smokes tobacco daily [facility] History of tobacco use Cigarette Smoker [facility] Start: 10-14-2018 End: 05-27-2022 Tobacco use and exposure Smokeless tobacco non-user [facility] Start: 04-21-2019 End: 05-08-2020 Tobacco use panel [facility] National Score (1-10 0), lower number is lower risk Not on file [facility] Start: 1950 Sex Assigned At Female [facility] Start: 12-09-2022 Gender identity Identifies as female gender (finding) [facility] Start: 12-09-2022 Sexual orientation Heterosexual (fin pedro) [facility] Start: 01-18-2023 Alcohol intake Ex-drinker (finding) [facility] Start: 1950 Sex Assigned At Not on file P [facility] Goals Date Patient Goal Desired Activity /State Personal health goal Comment on above: Formatting of this n ote might be different from the original. Evaluation of progress towards goal: In progress: Return to [place]. Note 03-05-2023 Telephone Encounter - Corrie Goldstein CMA - 03/05/2023 12:21 PM EST Note Date & Type Note Facility 03-05-2023 Miscellaneous Notes Formattin g of this note might be different from the original. Left message for patient to remind them to bring their most current medication list with them to their appointment. documented in this encounter [facility] Telephone encounter Note 03-05-2023 Telephone Encounter - Corrie Goldstein CMA - 03/05/2023 12:21 PM EST Note Date & Type Note Facility 03-05-2023 Telephone encount er Note Left message for patient to remind them to bring their most current medication list with them to their appointment[facility] 01-02-2023 Telephone Encounter - Lane Alarcon RN - 01/02/2023 1:28 PM EDT Note Date & Type Note Facility 01-02-2023 Miscellaneous Notes Formattin g of this note might be different from the original. Voice mail left for daughter to discuss plan of care for follow up of cerebral aneurysm as discussed with Dr Diaz at appointment. Imaging in 6 months versus cerebral angiogram. Requested daughter to either call this office or send a My Chart message with preference documented in this encounter [facility] Progress note 12-16-2022 Note Date & Type Note Facility 12-16-2022 Note HNO ID: [id number] Author: Jah Diaz MD Service: ? Author Type: Physician Type: Progress Notes Filed: 12/16/2022 6:24 PM Note Text: [facility] Virtual Visit Lucila Tineo [facility]#: [id number] Date of Service: 12/16/2022 Primary Care Provider: Mily Andrade, [employer] [address] [facility] [address] The patient was referred by Osei Majano for opinion regarding brain aneurysm. I will provide a written report of my findings to the referring through letter, e communication, or epic. OUTPATIENT CONSULTATION Chief complaint: Incidental unruptured brain aneurysm History of present illness: Ms. Veloz is a 72-year-old female with vascular risk factors, who presents for evaluation of an incidentally discovered unruptured brain aneurysm. The patient was residing in [place], and was found down on October 29, 2022. She had left-sided weakness and slurred speech. She was diagnosed with a right hemispheric acute stroke and admitted to the hospital for work-up. Reportedly atrial fibrillation was found as a possible stroke etiology, as well as atherosclerotic disease. The patient was not started on anticoagulation due to fear of bleeding from an unruptured left middle cerebral artery aneurysm that was also identified on the stroke work-up. The patient then returned to [place], and she is still at a nursing facility. She continues to have significant left-sided deficits with weakness, numbness, hearing and visual field deficit. She uses a wheelchair and is unable to walk. She is a 1 assist transferred to the toilet. Previously she was independent without significant neurologic deficits. She used to be a heavy smoker until the time of her stroke in September 2022. She had smoked for about 30 years. She also has hypertension and diabetes. Reportedly she is currently on Pletal and aspirin. She denies significant headaches. There is no family history of brain aneurysm, but her son had abdominal aortic aneurysm. Hypertension NA Coronary Artery Disease NA Diabetes Y Obesity NA Dyslipidemia NA Tobacco Use (Please Update Smoking History) Y Stroke NA Intracranial Aneurysm NA Past Medical History: Thoracic aortic aneurysm Unruptured brain aneurysm Hypertension Hypertension lipidemia Diabetes Ischemic stroke PAST SURGICAL HISTORY Procedure Laterality Date APPENDECTOMY HYSTERECTOMY Allergies: Penicillins Medications: Current Outpatient Medications Medication Sig atorvastatin (LIPITOR) 40 mg tablet Take 40 mg by mouth once daily. metoprolol succinate ER (TOPROL XL) 100 mg Take 100 mg by mouth once daily. clopidogrel (PLAVIX) 75 mg tablet Take 75 mg by mouth once daily. nitroglycerin sublingual (NITROQUICK) 0.4 mg SL tablet Dissolve 0.4 mg under the tongue every 5 minutes as needed. aspirin, enteric coated (ASPIRIN, ENTERIC COATED) 81 mg EC tablet Take 81 mg by mouth once daily. iv contrast (will be provided with radiology test) CT Chest W -Inject, intravenously, once for 1 dose.No IV access, insert saline lock prior to the beginning of sedation, infusion, injection of imaging exam. Discontinue saline lock post exam. If Pt. has a central line or IVAD, may access for administration according to line specific nursing protocol. Once exam is complete flush line and de-access according to line specific nursing protocol in the CT contrast administration guidelines link. iv contrast (will be provided with radiology test) CT Chest W -Inject, intravenously, once for 1 dose.No IV access, insert saline lock prior to the beginning of sedation, infusion, injection of imaging exam. Discontinue saline lock post exam. If Pt. has a central line or IVAD, may access for administration according to line specific nursing protocol. Once exam is complete flush line and de-access according to line specific nursing protocol in the CT contrast administration guidelines link. iv contrast (will be provided with radiology test) CT Cardiac - No IV access, insert saline lock prior to the sedation, infusion, injection for imaging exam. Discontinue saline lock post exam. If Pt. has a central line or IVAD, may access for administration according to line specific nursing protocol. Once exam is complete flush line and de-access according to line specific nursing protocol in the CT contrast administration guidelines link. losartan (COZAAR) 25 mg tablet Take 50 mg by mouth once daily. levothyroxine (SYNTHROID) 150 mcg tablet Take 150 mcg by mouth once daily. insulin degludec (TRESIBA FLEXTOUCH U-100) 100 unit/mL (3 mL) injection Inject 5 Units subcutaneously daily at bedtime. insulin aspart (NOVOLOG FLEXPEN U-100 INSULIN SUBCUTANEOUS) Inject subcutaneously. Per sliding scale iv contrast (will be provided with radiology test) CT Cardiac - No IV access, insert saline lock prior to the sedation, infusion, injection for imaging exam. Discontinue saline lo (more content not included)... [facility] History of Present illness Narrative 12-16-2022 Jah Diaz MD - 12/16/2022 1:06 PM EDT Note Date & Type Note Facility 12-16-2022 History of Presen t illness Narrative [facility] Virtual Visit Lucila Tineo [facility]#: [id number] Date of Service: 12/16/2022 Primary Care Provider: Mily Andrade, PRECINCT POLICE SERGEANT [address] [facility] [address] The patient was referred by Osei Majano for opinion regarding brain aneurysm. I will provide a written report of my findings to the referring through letter, e communication, or epic. OUTPATIENT CONSULTATION Chief complaint: Incidental unruptured brain aneurysm History of present illness: Ms. Veloz is a 72-year-old female with vascular risk factors, who presents for evaluation of an incidentally discovered unruptured brain aneurysm. The patient was residing in [place], and was found down on October 29, 2022. She had left-sided weakness and slurred speech. She was diagnosed with a right hemispheric acute stroke and admitted to the hospital for work-up. Reportedly atrial fibrillation was found as a possible stroke etiology, as well as atherosclerotic disease. The patient was not started on anticoagulation due to fear of bleeding from an unruptured left middle cerebral artery aneurysm that was also identified on the stroke work-up. The patient then returned to [place], and she is still at a nursing facility. She continues to have significant left-sided deficits with weakness, numbness, hearing and visual field deficit. She uses a wheelchair and is unable to walk. She is a 1 assist transferred to the toilet. Previously she was independent without significant neurologic deficits. She used to be a heavy smoker until the time of her stroke in September 2022. She had smoked for about 30 years. She also has hypertension and diabetes. Reportedly she is currently on Pletal and aspirin. She denies significant headaches. There is no family history of brain aneurysm, but her son had abdominal aortic aneurysm. Hypertension NA Coronary Artery Disease NA Diabetes Y Obesity NA Dyslipidemia NA Tobacco Use (Please Update Smoking History) Y Stroke NA Intracranial Aneurysm NA Past Medical History: Thoracic aortic aneurysm Unruptured brain aneurysm Hypertension Hypertension lipidemia Diabetes Ischemic stroke PAST SURGICAL HISTORY Procedure Laterality Date APPENDECTOMY HYSTERECTOMY Allergies: Penicillins Medications: Current Outpatient Medications Medication Sig atorvastatin (LIPITOR) 40 mg tablet Take 40 mg by mouth once daily. metoprolol succinate ER (TOPROL XL) 100 mg Take 100 mg by mouth once daily. clopidogrel (PLAVIX) 75 mg tablet Take 75 mg by mouth once daily. nitroglycerin sublingual (NITROQUICK) 0.4 mg SL tablet Dissolve 0.4 mg under the tongue every 5 minutes as needed. aspirin, enteric coated (ASPIRIN, ENTERIC COATED) 81 mg EC tablet Take 81 mg by mouth once daily. iv contrast (will be provided with radiology test) CT Chest W -Inject, intravenously, once for 1 dose.No IV access, insert saline lock prior to the beginning of sedation, infusion, injection of imaging exam. Discontinue saline lock post exam. If Pt. has a central line or IVAD, may access for administration according to line specific nursing protocol. Once exam is complete flush line and de-access according to line specific nursing protocol in the CT contrast administration guidelines link. iv contrast (will be provided with radiology test) CT Chest W -Inject, intravenously, once for 1 dose.No IV access, insert saline lock prior to the beginning of sedation, infusion, injection of imaging exam. Discontinue saline lock post exam. If Pt. has a central line or IVAD, may access for administration according to line specific nursing protocol. Once exam is complete flush line and de-access according to line specific nursing protocol in the CT contrast administration guidelines link. iv contrast (will be provided with radiology test) CT Cardiac - No IV access, insert saline lock prior to the sedation, infusion, injection for imaging exam. Discontinue saline lock post exam. If Pt. has a central line or IVAD, may access for administration according to line specific nursing protocol. Once exam is complete flush line and de-access according to line specific nursing protocol in the CT contrast administration guidelines link. losartan (COZAAR) 25 mg tablet Take 50 mg by mouth once daily. levothyroxine (SYNTHROID) 150 mcg tablet Take 150 mcg by mouth once daily. insulin degludec (TRESIBA FLEXTOUCH U-100) 100 unit/mL (3 mL) injection Inject 5 Units subcutaneously daily at bedtime. insulin aspart (NOVOLOG FLEXPEN U-100 INSULIN SUBCUTANEOUS) Inject subcutaneously. Per sliding scale iv contrast (will be provided with radiology test) CT Cardiac - No IV access, insert saline lock prior to the sedation, infusion, injection for imaging exam. Discontinue saline lock post exam. If Pt. has a central line or IVAD, may access for administration according to line specific nursing protocol. Once exam is complete flush line and de-access according to line specific nursing protocol in the CT contrast administration guidelines link. No current facility-administered medications for this visit. Social History Tobacco Use Smoking status: Every Day Packs/day: 0.75 Years: 62.00 Additional pack years: 0.00 Total pack years: 46.50 Types: Cigarettes Smokeless tobacco: Never Illicit Drug Use: no Family History: Subarachnoid hemorrhage: None Aneurysms: None Stroke: None Vascular malformations: Yes, son with thoracic aorta aneurysm Other neurologic diseases: None Review of Systems Constitutional: Positive for fatigue. HENT: Positive for hearing loss. Eyes: Positive for visual disturbance. Respiratory: Negative. Cardiovascular: Negative. Gastrointestinal: Negative. Hematologic/Lymphatic: Negative. Musculoskeletal: Positive for arthralgias. Skin: Negative. Neurological: Positive for dizziness, numbness/tingling and weakness. Psychiatric: Positive for anxiety. Patient Entered Questionnaires Health Status Impact by Stroke or CVD 12/15/2022 Impact To a great extent PROMIS/NeuroQoL Score Percentiles Physical Health 12/15/2022 Physical Function Percentile 0 Sleep Percentile 27* Fatigue Percentile 5 Pain Interference Percentile 12 Mental Health 12/15/2022 NeuroQol Cognitive Function Percentile 2 General Self-Efficacy Percentile 8 PROMIS Global Health Scale 12/15/2022 Physical Health Percentile 4 Mental Health Percentile 13 Percentiles provide an indication of how a patient's score ranks in relation to the [place] general population. > 31st percentile is within normal limits or better * < 31st percentile is at least SD worse than population, which may be clinically relevant < 16th percentile is at least 1 SD worse than population and warrants attention Depression Screening: PHQ-9 12/15/2022 Score 10 Self-Harm Response 0 PHQ-9 Scores: PHQ-9 Self-Harm (Item 9) Response: 0 - 9 No to Mild depression 0 - Not at all 10 - 14 Moderate depression 1 - Several Days > 15 Severe depression 2 - More than half the days 3 - Nearly every day Sleep Apnea Probability Score 12/15/2022 Sleep Apnea Screen V2 29 (Sleep study not recommended) PHYSICAL EXAMINATION There were no vitals taken for this visit. General: Not in acute distress, pleasant elderly female, well-developed, well-nourished Head: atraumatic, normocephalic Eyes: No scleral icterus, no conjunctival injection Neck: Normal neck range of motion Extremities: No edema, clubbing reported. Skin: No significant bruising or rash reported Neurological: Mental status: Alert, awake and oriented x3. Speech, language, attention span are intact. Slightly decreased memory. Cranial nerves: EOMI. Facial sensation reportedly decreased on the left side. Subtle left facial asymmetry. Decreased left shoulder shrug. Motor: Left hemiparesis with limited movements on the left side.. Sensory: Decreased sensation on the left side of the body Coordination: Limited by weakness on the left side Gait: Deferred. Patient is unable to ambulate independently due to left hemiparesis. Mostly wheelchair-bound. IMAGING OSH CTA head and neck September 2022: Available images demonstrate significant diffuse atherosclerotic changes, and presence of an approximately 1.5 cm left middle cerebral bifurcation region partially thrombosed aneurysm with calcified rim. There is also cut off of mid M2 prominent branch, likely the cause of the patient's right MCA stroke. [facility] brain September 2022: Available images demonstrate a large right hemispheric acute ischemic stroke. Additional changes also seen in the left occipital pole of unclear etiology, possibly previous ischemia. Stroke Mechanism and Scales Ischemic or TIA: Ischemic Stroke Cerebrovascular Disease w/o Stroke Event: Unruptured Aneurysm Modified [place] Score: Score: 4 NIH Stroke Scale: LOC: 0 LOC Questions: 0 LOC Commands: 0 LOC Normal Gaze: 0 Visual Corona: 2 Facial Palsy: 1 Motor Left Arm: 3 Motor Right Arm: 0 Motor Left Le Motor Right Le Limb Ataxia: 0 Sensory: 2 Language: 0 Dysarthria: 0 Extinction/Neglect: 1 Total Daily NIHSS: 12 IMPRESSION Incidental unruptured brain aneurysm. Found during work-up for recent stroke. Imaging demonstrates a partially thrombosed left middle cerebral artery bifurcation aneurysm. The filling portion is approximately 4-5 mm, but the entire aneurysm appears to be approximately 1.5 cm. The aneurysm appears to have a calcified ring suggestive of a chronic lesion. Patient does not have previous imaging to compare. She is asymptomatic from the aneurysm standpoint, and her recent stroke was unrelated to this aneurysm. Discussed natural history and rupture risk with patient and her daughter. Normally this aneurysm would be considered for treatment, however, the patient is currently post recent stroke event with significant residual deficits. A diagnostic cerebral angiogram for treatment planning is a consideration once she is in a condition to undergo the procedure. However, I emphasized that treatment would also require further hospitalization, general anesthesia, which would put the patient at further risk for adverse events in addition to the procedure risk. The family would like to discuss these with the patient, and we will decide about conservative management versus possible diagnostic angiogram for treatment planning. All questions were answered. Ischemic strokes. Imaging from September 2022 revealed a large right hemispheric ischemic stroke with an M2 vessel cutoff. Patient's daughter states atrial fibrillation was found, which is a possible etiology. Imaging also suggests a separate left occipital lobe possible prior infarct. The patient would require further cardiac work-up and possible anticoagulation if atrial fibrillation is confirmed. PLAN Difficult decision about possible angiography and subsequent aneurysm treatment due to significant comorbidities and recent stroke. See discussion above. Recommend consideration of cardiac work-up for stroke etiology and proper treatment. See discussion above. Blood pressure and vascular risk factor control Education provided Thank you very much for this consultation. Questions asked/ answered. Follow-up with results/ adherence to plan/ continued education. SIGNATURE Jah Diaz MD December 16, 2022 CC OSEI MAJANO [address] [facility] [address] Mily Andrade [address] [place] [address] documented in this encounter [facility] Note 12-08-2022 Telephone Encounter - Tonja Andre - 12/08/2022 7:18 AM EDTTelephone Encounter - Tonja Andre - 12/04/2022 11:16 AM EDTTelephone Encounter - Tonja Andre - 12/04/2022 11:00 AM EDT Note Date & Type Note Facility 12-08-2022 Miscellaneous Notes Formattin g of this note might be different from the original. Images from the original note were not included. OSH imaging/records received from [facility]: December 08, 2022 -12.02.22 Dr. Majano Progress Notes scanned to chart. -Medical Hx & Imaging Reports available in Care Everywhere. Received confirmation email from Caio that imaging hs been uploaded--per dropping off disc to imaging library to upload as I wasn't able to + kept getting error per below. Images from the original note were not included. OSH imaging/records received from [facility]: December 04, 2022 -12.02.22 Dr. Majano Progress Notes scanned to chart. PENDING: -2022 Imaging -Medical Hx & Imaging Reports Walked discs over to imaging library + gave to Adry to upload MAGDALENE. Successfully sent CARRI & [employer] overnight label via [employer]~ Tracking#[id number] December 05, 2022 10:30 AM 07 [employer] Priority Overnight $14.14 From: Theresa mabry Last change on 12/04/2022 12:16:46 pm Sent on 12/04/2022 12:16:33 pm Completed [facility] Patient name: Lucila Tineo Confirm Diagnosis/RFV (Reason for Visit): Aneurysm Is this a self-referral? no, who is the referring provider : Osei Majano [facility] in [place], [place]/His direct office number if any questions: [phone] Is this a direct referral? yes neurosurgeon Have you been recommended for surgery or procedure? Yes. coiling Are you seeking a second opinion? Yes. Do you have a MRI/MRA/CT/Ultrasound for this diagnosis? Yes. Type of imaging CT's, name/address of facility where completed [facility]. [Only has reports in folder, no images] Was there a previous surgery or procedure for this diagnosis/reason for visit? No. Are there any other health history we should know about? : Hypertension, Diabetic, 4.6 Stable Thoracic Aortic Aneurysm, along with recent ongoing issues with balance + peripheral vision Would you prefer a virtual visit or in-person visit? Virtual visit : what state will you be in at the time of the visit? 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 Did see a neurologist this past Thursday to clear patient to fly back home, adamant to get her in sooner > later. Please call him if any questions. documented in this encounter [facility] Evaluation note Note Date & Type Note Facility Evaluation note Diagnosis Unruptured cerebral aneurysm- Primary Cerebral aneurysm, nonruptured Ischemic stroke (HCC) Hypertension, unspecified type Hyperlipidemia, unspecified hyperlipidemia type Smoking Tobacco use disorder documented in this encounter [facility] History of Present illness Narrative Note Date & Type Note Facility History of Present illness Narrative The patient presents for follow-up of essential hypertension. The patient states she has been doing well with her blood pressure control since the last visit. Comorbid Illnesses: coronary artery disease.Symptoms: denies impaired vision, denies dyspnea, denies chest pain, denies intermittent leg claudication and denies lower extremity edema. Associated symptoms include no headache, no focal neurologic deficits and no memory loss.Home monitoring: The patient checks her blood pressure regularly.Medications: the patient is adherent with her medication regimen. She denies medication side effects. [facility] [address] DO Work Phone: Instructions Note Date & Type Note Facility Instructions Not on filedocumented in this en counter [facility] Summary Purpose Family History Unknown Family Member Name Dates Details Essential hypertension, allison gn: Brother Status:Active Family history of lung cance r: Father(V16.1, Z80.1) Status:Active Unknown Family Member Name Dates Details Essential hypertension, allison gn: Brother Status:Active Family history of lung cance r: Father(V16.1, Z80.1) Status:Active Unknown Family Member Name Dates Details Essential hypertension, allison gn: Brother Status:Active Family history of lung cance r: Father(V16.1, Z80.1) Status:Active Unknown Family Member Name Dates Details Essential hypertension, allison gn: Brother Status:Active Family history of lung cance r: Father(V16.1, Z80.1) Status:Active Unknown Family Member Name Dates Details Essential hypertension, allison gn: Brother Status:Active Family history of lung cance r: Father(V16.1, Z80.1) Status:Active Unknown Family Member Name Dates Details Essential hypertension, allison gn: Brother Status:Active Family history of lung cance r: Father(V16.1, Z80.1) Status:Active Unknown Family Member Name Dates Details Essential hypertension, allison gn: Brother Status:Active Family history of lung cance r: Father(V16.1, Z80.1) Status:Active Unknown Family Member Name Dates Details Essential hypertension, allison gn: Brother Status:Active Family history of lung cance r: Father(V16.1, Z80.1) Status:Active Unknown Family Member Name Dates Details Essential hypertension, allison gn: Brother Status:Active Family history of lung cance r: Father(V16.1, Z80.1) Status:Active Advance Directives Documents on File Type Date Recorded Patient 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 * Patient is ambulatory with steady gait. * Last evaluated in clinic by Dr. Elias November 2020. * Early Dec 2020 COVID+, hospitalized overnight and treated with infusion. Saw Client Service Representative [facility] due to minimally elevated troponin. Fully recovered. * Patient attends to own ADLs and functional ADLs. * Patient daily activity includes: housework, vacuum and mop * Patient ambulate in from parking lot without concerns. * Patient denies change to exercise tolerance or functional capacity since last evaluation. * Prior Angina: chest pain * Last NTG use: none * BP at home 130, wrist cuff. * No sleep study * LUCILA TINEO is being seen for an annual follow-up of. * 71-year-old female who returns she is doing well from a cardiac standpoint she denies angina. She does admit to vascular claudication in addition to possible pseudoclaudication due to recent diagnosis of lumbar compression degenerative disc disease but she also has bilateral lower extremity vascular disease. Her vascular surgeon placed her on cilostazol over the past year; her clopidogrel has been discontinued. She has known history of ASHD with chronic occlusion of the RCA we tried to intervene on this 1 year ago in an antegrade fashion, she has left right collaterals and normal LV function.She remains on appropriate guideline directed medical therapies. Unfortunately she continues to smoke approximately half pack cigarettes daily. * We counseled her extensively on the hazards of tobacco use, worsening of vascular and coronary atherosclerosis and acute coronary/vascular and neuro events, and benefits of smoking cessation. * She otherwise remains on appropriate guideline directed medical therapies, will follow-up in 1 year Additional Source Comments INFORMATION SOURCE (unrecogn ized section and content) DATE CREATED AUTHOR 08/20/2020 [facility] DATE CREATED AUTHOR AUTHOR'S ORGANIZ ATION 03/11/2021 [facility] DATE CREATED AUTHOR AUTHOR'S ORGANIZ ATION 12/11/2021 [facility] DATE CREATED AUTHOR AUTHOR'S ORGANIZ ATION 12/11/2021 [facility] DATE CREATED AUTHOR AUTHOR'S ORGANIZ ATION 04/26/2022 [facility] DATE CREATED AUTHOR AUTHOR'S ORGANIZ ATION 02/14/2023 [facility] DATE CREATED AUTHOR AUTHOR'S ORGANIZ ATION 03/02/2023 [facility] Source Comments (unrecognize d section and content) In the event this informatio n is protected by the Federal Confidentiality of Alcohol and Drug Abuse Patient Records regulations: The Federal rules restrict any use of the information to criminally investigate or prosecute any alcohol or drug abuse patient.[facility] the event this information is protected by the Federal Confidentiality of Alcohol and Drug Abuse Patient Records regulations: The Federal rules restrict any use of the information to criminally investigate or prosecute any alcohol or drug abuse patient.[facility] the event this information is protected by the Federal Confidentiality of Alcohol and Drug Abuse Patient Records regulations: The Federal rules restrict any use of the information to criminally investigate or prosecute any alcohol or drug abuse patient.[facility] the event this information is protected by the Federal Confidentiality of Alcohol and Drug Abuse Patient Records regulations: The Federal rules restrict any use of the information to criminally investigate or prosecute any alcohol or drug abuse patient.[facility] the event this information is protected by the Federal Confidentiality of Alcohol and Drug Abuse Patient Records regulations: The Federal rules restrict any use of the information to criminally investigate or prosecute any alcohol or drug abuse patient.[facility] the event this information is protected by the Federal Confidentiality of Alcohol and Drug Abuse Patient Records regulations: The Federal rules restrict any use of the information to criminally investigate or prosecute any alcohol or drug abuse patient.[facility] Reason for Visit (unrecogniz ed section and content) Reason Comments Future Appointment New [place], [place], Any Reason Comments Unruptured Aneurysm 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 Teams (unrecognized sec tion and content) Top Lift Cutter Relationship Specialty Start Date End Date Mily Andrade CNP [address] [place] [address] PCP - General Family Medicine 09/29/18 Osei Majano [address] [place] [address] Referring Neurology 12/04/22 Top Lift Cutter Relationship Specialty Start Date End Date Mily Andrade CNP [address] [place] [facility] [address] PCP - General Family Medicine 09/29/18 Osei Majano [address] [place] [address] Referring Neurology 12/04/22 Top Lift 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 Relationship Specialty Start Date End Date Mily Andrade CNP [address] [facility] [place] [address] PCP - General Family Medicine 09/29/18 Osei Majano [address] [place] [address] Referring Neurology 12/04/22 Top Lift 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 This clinical summary was aggregated from multiple sources. Caution should be exercised in using it in the provision of clinical care. This summary normalizes information from multiple sources, and as a consequence, information in this document may materially change the coding, format and clinical context of patient data. In addition, data may be omitted in some cases. CLINICAL DECISIONS SHOULD BE BASED ON THE PRIMARY CLINICAL RECORDS. [facility] provides no warranty or guarantee of the accuracy or completeness of information in this document.
[2023-03-06 11:04] LABS: Alanine Aminotransferase 19 U/L (14-59); Albumin Globulin Ratio 0.7; Albumin Level 2.7 g/dL (3.4-5.0); Alkaline Phosphatase 102 U/L (46-116); Anion Gap 8.9; Aspartate Amino Transferase 20 U/L (15-37); BUN Creatinine Ratio 18.7; Bilirubin Total 0.4 mg/dL (0.2-1.0); Calcium 9.3 mg/dL (8.5-10.1); Carbon Dioxide 28.3 mmol/L (21.0-32.0); Chloride 108 mmol/L (98-107); Estimated GFR (African America >60 (>=60); Estimated GFR (Non-African Ame >60 (>=60); Globulin 3.7 g/dL; Glucose 107 mg/dL (74-106); Potassium 3.2 mmol/L (3.5-5.1); Sodium 142 mmol/L (136-145); Total Protein 6.4 g/dL (6.4-8.2)
== END 2023-03-06 01:09 | disposition home or self-care (01) ==
LOC: LAB 01:08
PROVIDERS: PCP Family Medicine; Visit Provider Family Medicine
DX: E11.10 Type 2 diabetes mellitus with ketoacidosis without coma (principal)
CPT/HCPCS: 36415; 80053

== ENCOUNTER 2023-03-09 03:20 | Outpatient (REF) | payer MEDICARE, MEDICAID, SELFPAY ==
--- OUTSIDE RECORDS SUMMARY | 2023-03-09 03:26 | XMS_ITS | CCD ---
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 Bruce Elias Attending Unavailable Dr. Bruce Elias Referring Unavailable Dr. Bruce Elias Referring Unavailable CHELITA Sandhu Attending Unavailable Lupe, Jaylen Mily Amena Primary Care Rosemary vailable Mily Andrade CNP Primary Care Provider Osei Majano Unavailable OSEI MAJANO Referring Unavailable MILY ANDRADE Primary Care Unavailable JAH DIAZ Attending Unavailable MILY ANDRADE Referring Unavailab le ANDRADE, MILY Ashley Primary Care Unavailab le ANDRADE, MILY Ashley Referring Unavailab le ANDRADE, MILY Ashley Primary Care Unavailab le Andrade ESTHETICIAN/SPA COORDINATOR-EQUIPMENT MANAGER, Mily Ashley Primary Care Pro vider ANGE GEE Attending Unavailable MILY ANDRADE Referring Unavailab le ANDRADEMILY Primary Care Unavailab le Allergies Allergy Classification Reported Allergen(s) Allergy Type Date of Onset Reaction(s) Facility (13 sources) Penicillins; Translations: [Penicillins] Allergy to drug (finding) 9 [facility] Repository (7 sources) Penicillins Drug Allergy 9 Hives, Other (See Comments) [facility] Medications Current Medications Medication Drug Class(es) [...] Active docusate sodium 50 mg / sennosides, chcf 8.6 mg oral tablet (1 source) take [...] mg total) before bedtime. 0 Active sennosides, chcf 8.6 mg oral tablet (1 source) Start: [...] rupture] Onset: 11-19-2020 Resolved: 01-16-2023 11-19-2020 Chronic Cardiac dysrhythmias (1 source) Paroxysmal atrial fibrillation; Translations: [Paroxysmal atrial fibrillation] Onset: 03-06-2023 Chronic Chronic obstructive pulmonary disease and bronchiectasis (11 sources) Chronic obstructive lung disease; Translations: [Chronic airway obstruction, not elsewhere classified] Onset: 01-16-2023 01-16-2023 Chronic Coronary atherosclerosis and other heart disease (15 sources) Coronary arteriosclerosis; Translations: [Coronary atherosclerosis of unspecified type of vessel, mucklesh[place] or graft] Onset: 09-05-2020 Chronic Diabetes mellitus [...] encounter] Onset: 01-16-2023 01-16-2023 Episodic Essential hypertension (14 sources) Hypertensive disorder; Translations: [Unspecified essential hypertension] Onset: 03-11-2021 12-16-2022 Chronic Fluid and electrolyte disorders (1 source) Metabolic acidosis, increased anion gap (IAG); Translations: [High anion gap metabolic acidosis] Onset: 01-16-2023 01-16-2023 Episodic Intestinal obstruction without hernia (1 source) Fecal impaction; Translations: [Fecal impaction] Onset: 01-18-2023 3 Episodic Noninfectious gastroenteritis (1 source) Stercoral colitis; [...] Test Name Value Interpretation Reference Range Facility [facility] 01-02-2023 CNPN Telephone (NSEN) LUCILA TINEO ([id number]) 1950 F Date Time Provider Department 01/02/23 JAH DIAZ [facility] During your visit today, we recorded the following information about you: Lane Alarcon RN 01/02/2023 1:34 PM Signed Voice mail left for daughter to discuss plan of care for follow up of cerebral aneurysm as discussed with Dr Diaz at appointment. Imaging in 6 months versus cerebral angiogram. Requested daughter to either call this office or send a Next Glass message with preference Elisa Lees 01/07/2023 12:30 PM Signed Daughter, Mila Kramer returned call - please call [phone]. Lane Alarcon, SHREYA 01/07/2023 12:43 PM Signed Attempted to return call, voice mail left for daughter with office number to return call to this office at her convenience. Jenny Moreno 01/07/2023 2:14 PM Signed Please call daughter back at [phone]. Until 4pm. 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 no, who is the referring provider : Osei Majano [place] [employer] in [facility], [place]/His direct office number if any questions: [phone] Is this a direct referral? yes neurosurgeon Have you been recommended for surgery or procedure? Yes. coiling Are you seeking a second opinion? Yes. Do you have a MRI/MRA/CT/Ultrasound for this diagnosis? Yes. Type of imaging CT's, name/address of facility where completed [facility]. [Only has reports in folder, no images] [...] 2:22 PM Addendum OSH imaging/records received from [facility]: December 04, 2022 -12.02.22 Dr. Majano Progress Notes scanned to chart. PENDING: -2022 Imaging -Medical Hx AND Imaging Reports Walked discs over to imaging library + gave to Adry to upload MAGDALENE. Successfully sent CRARI AND [employer] overnight label via [employer]~ Tracking#[id number] December 05, 2022 10:30 AM 07 [employer] Priority Overnight? $14.14 From: Theresa Andre Last change on 12/04/2022 12:16:46 pm Sent on 12/04/2022 12:16:33 pm Completed Tonja Andre 12/09/2022 2:25 PM Addendum OSH imaging/records received from [facility]: December 08, 2022 -12.02.22 Dr. Majano [...] 100 unit (more content not included)... Normal [facility] SCREENING MAMMOGRAM W/SAULO, BILATERAL*on 04-24-2022 SCREENING MAMMOGRAM [...] VERY IMPORTANT TO YOUR HEALTH. THE CURRENT [place] [employer] GUIDELINES RECOMMENDS ANNUAL MAMMOGRAPHY BEGINNING AT AGE 40 THIS FACILITY USES A REMINDER SYSTEM TO ENSURE ALL PATIENTS RECEIVE REMINDER NOTIFICATIONS AT THE APPROPRIATE TIME BASED ON THE RECOMMENDATIONS OF THIS EXAM. Report reported and signed by Silviano Roth on 04/25/2022 0759 Normal [facility] Senior Graduate Advisor Office Visit (Cardiology)on 12-11-2021 Follow-up visit Diagnoses/Problems [...] quit smoking.; Status:Complete - Retrospective Authorization; Done: [id number] Tobacco Use Screening; Status:Complete; Done: 11Dec2021 You need to stop smoking. Though it is not easy, more than half of all adult smokers have quit. We encourage you to write down all the reasons you should quit smoking and set a quit date for yourself. Ask us how we can help. You may also call 1-469-DYFYNOW for free resources and assistance.; Status:Complete - [...] Recorded: 11Dec2021 11:20AM Heart Rate76, L Radial Owcjggdz291, LUE, Sitting Mcctjwegl31, LUE, Sitting Height5 ft 4 in Jnlemh631 lb BMI Yapswjxxuu41.98 kg/m2 BSA Calculated1.79 Tobacco Usea) Yes Patient encouraged to stop using tobacco productsYes PHQ-2 #1. Over the last 2 weeks have you felt down, depressed or hopeless? (If yes, answer PHQ-9 below)No PHQ-2 #2. Over the last 2 weeks have you felt little interest or pleasure in doing things? (If yes, answer PHQ-9 below)No Fa (more content not included)... Normal [employer] Tobacco Screening.on 022 Adult depression screening assessment No [facility] [facility] 250 DO Work Phone: Fall risk assessment b) One or more fall s in the last year [facility] [employer] 250 DO Work Phone: Tobacco use status CPHS a) Yes [facility] [employer] 250 DO Work Phone: Tobacco Screening. Yes [facility] 250 DO Work Phone: XR Spine Lumbar Complete w/F tyrone AND [place] 11-18-2021 XR Spine Lumbar Complete w/Flex AND [...] by Silviano Roth on 11/18/2021 1519 Normal [facility] Senior Graduate Advisor US Venous, Bilateral, Lower [place] 10-02-2021 US Venous, Bilateral, Lower Ext FINDINGS: [...] by Silviano Roth on 10/03/2021 0652 Normal [facility] Senior Graduate Advisor Office Visit (Cardiology)on 02-05-2021 Follow-up visit Diagnoses/Problems Assessed Hypertension (401.9) (I10) Remains suboptimal CAD (coronary artery disease) (414.00) (I25.10) July 2020 ACS admit Cath: 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 TOY PACKER in 2 weeks Adhering to 2017 AHA/ACC [...] Complaint I have been doing ok LUCILA TINEO is being seen for hypertension. Patient is ambulatory with steady gait. Last evaluated in clinic by Dr. Elias November 2020. Early Dec 2020 COVID+, hospitalized overnight and treated with infusion. Saw Tracer Clerk inpatient at [facility] due to minimally elevated troponin. Fully recovered. [...] smoker (305.1) (more content not included)... Normal [employer] Tobacco Screening.on Fall risk assessment a) No falls within the last year [facility] 250 DO Work Phone: Tobacco use status CPHS a) Yes [facility] 250 DO Work Phone: Tobacco Screening. Yes [facility] 250 DO Work Phone: Tobacco Screening.on 021 Fall risk assessment a) No falls within the last year [facility] 600 DO Work Phone: Tobacco use status CPHS a) Yes [facility] 600 DO Work Phone: Tobacco Screening. Yes [facility] 600 DO Work Phone: Comprehensive Metabolic Pane dom 08-08-2020 Albumin [Mass/Vol] 3.1 g/dL Low 3.2-5.5 [facility] Comment on above: Performed By: #### C MP #### [facility] [address] Albumin/Globulin [Mass ratio] 0.9 {ratio} Normal [facility] Comment on above: Performed By: #### C MP #### [address] ALP [Catalytic activity/Vol] 98 U/L High 32-92 [facility] Comment on above: Performed By: #### C MP #### [facility] [address] [place] [address] ALT [Catalytic activity/Vol] 17 U/L Normal 10-60 [facility] Comment on above: Performed By: #### C MP #### [address] AST [Catalytic activity/Vol] 24 U/L Normal 10-42 [facility] Comment on above: Performed By: #### C MP #### [place] [id number] [facility] Bilirubin [Mass/Vol] 0.6 mg/dL Normal 0.3-1.2 [facility] Comment on above: Performed By: #### C MP #### [facility] [address] [place] [id number] [place] Calcium [Mass/Vol] 8.8 mg/dL Normal 8.2-10.2 [facility] Comment on above: Performed By: #### C MP #### [place] [address] [place] Chloride [Moles/Vol] 103 mmol/L Normal 95-114 [facility] Comment on above: Performed By: #### C MP #### [address] CO2 [Moles/Vol] 20.4 mmol/L Low 22.0-30.0 [facility] Comment on above: Performed By: #### C MP #### [address] Creatinine [Mass/Vol] 1.06 mg/dL High 0.44-1.03 [facility] Comment on above: Performed By: #### C MP #### [address] Creatinine Clr Calc Pharmacy 49.44 [facility] Comment on above: Result Comment: PERF ORMED BY: [place] [address] PATHOLOGIST SENIOR DIRECTOR INSIGHT DOMINGA SOLIMAN M.D. Performed By: #### C MP #### [address] Estimated GFR ( Vania > 60 [facility] Comment on above: Result Comment: GFR estimated reference range: According to KDOQI guidelines, <60 ml/min/1.73m2 is sufficient to diagnose a patient with chronic kidney disease. Performed By: #### C MP #### [address] Estimated GFR (Non- Am 51 [facility] Comment on above: Performed By: #### C MP #### [address] Globulin (S) [Mass/Vol] 3.3 g/dL [facility] Comment on above: Performed By: #### C MP #### [address] Glucose [Mass/Vol] 282 mg/dL High 70-100 [facility] Comment on above: Result Comment: [place] Glucose Reference Range is dependent on time and content of last meal. Glucose of more than 200 mg/dL in a nonstressed, ambulatory subject supports the diagnosis of Diabetes Mellitus. ADA recommended reference range Performed By: #### C MP #### [address] [place] [address] [place] Potassium [Moles/Vol] 4.5 mmol/L Normal 3.5-5.1 [facility] Comment on above: Performed By: #### C MP #### [facility] [address] Protein [Mass/Vol] 6.4 g/dL Normal 6.1-7.9 [facility] Comment on above: Performed By: #### C MP #### [address] Sodium [Moles/Vol] 134 mmol/L Low 136-146 [facility] Comment on above: Performed By: #### C MP #### [address] Urea nitrogen [Mass/Vol] 29 mg/dL High 9-23 [facility] Comment on above: Performed By: #### C MP #### [address] ECG 12 lead ECGon 08-08-2020 ECG 12 lead ECG [facility] Main [place] [address] [place] [address] Electrocardiograph Report Signed Patient: Lucila Tineo MR#: [id number] : 1950 Acct:[id number] Age/Sex: 70 / F ADM Date: 08/06/20 Loc: Room: [address] [place] [address] Type: ADM IN Attending Dr: Drew Patterson [...] MD 08/08/20 0734 Signed By: 08/08/20 1017 [facility] Glucose Poct Glucometerson 0 08-08-2020 Commemt1 Glu2: Cleaned Meter [facility] Comment on above: Result Comment: PERF ORMED BY: [place] [address] PATHOLOGIST SENIOR DIRECTOR INSIGHT DOMINGA SOLIMAN M.D. Performed By: #### P T, CBC, PTT #### [place] [address] [place] Glucose [Mass/Vol] 354 mg/dL Normal [facility] Comment on above: Result Comment: [place] om Glucose Reference Range is dependent on time and content of last meal. Glucose of more than 200 mg/dL in a nonstressed, ambulatory subject supports the diagnosis of Diabetes Mellitus. Performed By: #### P T, CBC, PTT #### [address] Commemt1 Glu2: Cleaned Meter [facility] Comment on above: Result Comment: PERF ORMED BY: [place] [address] PATHOLOGIST SENIOR DIRECTOR INSIGHT DOMINGA SOLIMAN M.D. Performed By: #### P T, CBC, PTT #### [place] [id number] [place] Glucose [Mass/Vol] 380 mg/dL Normal [facility] Comment on above: Result Comment: [place] om Glucose Reference Range is dependent on time and content of last meal. Glucose of more than 200 mg/dL in a nonstressed, ambulatory subject supports the diagnosis of Diabetes Mellitus. Performed By: #### P T, CBC, PTT #### [place] [id number] [place] Glucose [Mass/Vol] 80 mg/dL Normal [facility] Comment on above: Result Comment: [place] om Glucose Reference Range is dependent on time and content of last meal. Glucose of more than 200 mg/dL in a nonstressed, ambulatory subject supports the diagnosis of Diabetes Mellitus. PERFORMED BY: [address] [place] [address] PATHOLOGIST SENIOR DIRECTOR INSIGHT DOMINGA SOLIMAN M.D. Performed By: #### P T, CBC, PTT #### [facility] [address] [place] [address] Commemt1 [facility] Comment on above: Result Comment: Glu2 : FOLLOW HYPOGLYCEMIC Performed By: #### P T, CBC, PTT #### [facility] [address] [place] [address] Commemt2 Cleaned Meter [facility] Comment on above: Performed By: #### P T, CBC, PTT #### [address] Commemt3 WILL NOTIFY DR/RN [facility] Comment on above: Result Comment: PERF ORMED BY: [facility] [address]111 [facility] [place] [address] PATHOLOGIST SENIOR DIRECTOR INSIGHT DOMINGA SOLIMAN M.D. Performed By: #### P T, CBC, PTT #### [address] Glucose [Mass/Vol] 42 mg/dL Off scale low [facility] Comment on above: Result Comment: [facility] Glucose Reference Range is dependent on time and content of last meal. Glucose of more than 200 mg/dL in a nonstressed, ambulatory subject supports the diagnosis of Diabetes Mellitus. Performed By: #### P T, CBC, PTT #### [facility] [address] [place] [address] Troponin I(TnI)on 08-08-2020 Troponin I.cardiac [Mass/Vol] 2.45 ng/mL Off scale high 0-0.02 [facility] Comment on above: Result Comment: [place] Cut off value > or equal to 0.03 ng/mL in conjunction with clinical conditions of myocardial infarction. (www.escardio.org/guidelines) PERFORMED BY: [address] [place] [address] PATHOLOGIST SENIOR DIRECTOR INSIGHT DOMINGA SOLIMAN M.D. Performed By: #### T ROP #### [place] [address] [place] A1C with Estimated Average G [facility] 08-07-2020 Glucose [Mass/Vol] 183 mg/dL Normal [facility] Comment on above: Result Comment: PERF ORMED BY: [address] [place] [address] PATHOLOGIST SENIOR DIRECTOR INSIGHT DOMINGA SOLIMAN M.D. Performed By: #### G LULS #### Point of Care testing , HbA1c (Bld) [Mass fraction] 8.0 % High 4.3-5.6 [facility] Comment on above: Result Comment: Incr eased risk for diabetes: 5.7 - 6.4 diabetes: >6.4 glycemic control for adults with diabetes: <7.0 Performed By: #### G LULS #### Point of Care testing , Complete Blood Count Auto Di ffon 08-07-2020 Basophils (Bld) [#/Vol] 0.1 10*3/uL Normal 0.0-0.2 [facility] Comment on above: Result Comment: PERF ORMED BY: [address] [place] [address] PATHOLOGIST SENIOR DIRECTOR INSIGHT DOMINGA SOLIMAN M.D. Performed By: #### G LULS #### Point of Care testing , Basophils/100 WBC (Bld) 1.4 % Normal . [facility] Comment on above: Performed By: #### G LULS #### Point of Care testing , Eosinophils (Bld) [#/Vol] 0.1 10*3/uL Normal 0.0-0.45 [facility] Comment on above: Performed By: #### G LULS #### Point of Care testing , Eosinophils/100 WBC (Bld) 2.6 % Normal . [facility] Comment on above: Performed By: #### G LULS #### Point of Care testing , Erythrocyte distribution width (RBC) [Ratio] 15.6 % High 11.9-15.3 [facility] Comment on above: Performed By: #### [place] MUNROE #### Point of Care testing , Hematocrit (Bld) [Volume fraction] 39.8 % Normal 34.0-46.4 [facility] Comment on above: Performed By: #### G ARVINDLS #### Point of Care testing , Hemoglobin (Bld) [Mass/Vol] 13.8 g/dL Normal 11.8-15.4 [facility] Comment on above: Performed By: #### G SHANEKA #### Point of Care testing , Lymphocytes (Bld) [#/Vol] 1.5 10*3/uL Normal 1.00-4.8 [facility] Comment on above: Performed By: #### G SHANEKA #### Point of Care testing , Lymphocytes/100 WBC (Bld) 26.4 % Normal . [facility] Comment on above: Performed By: #### [place] SAMUELSLS #### Point of Care testing , MCH (RBC) [Entitic mass] 30.9 pg Normal 24.7-34.3 [facility] Comment on above: Performed By: #### [place] MUNROE #### Point of Care testing , MCV (RBC) [Entitic vol] 89.0 fL Normal 80-100 [facility] Comment on above: Performed By: #### G SHANEKA #### Point of Care testing , Mean Corpuscular HGB Conc 34.8 g/dL Normal 32.0-35.0 [facility] Comment on above: Performed By: #### [place] MUNROE #### Point of Care testing , Monocytes (Bld) [#/Vol] 0.4 10*3/uL Normal 0.0-0.8 [facility] Comment on above: Performed By: #### G ARVINDLS #### Point of Care testing , Monocytes/100 WBC (Bld) 7.0 % Normal . [facility] Comment on above: Performed By: #### [place] MUNROE #### Point of Care testing , Neutrophils (Bld) [#/Vol] 3.6 10*3/uL Normal 1.8-7.7 [facility] Comment on above: Performed By: #### G SHANEKA #### Point of Care testing , Neutrophils/100 WBC (Bld) 62.6 % Normal . [facility] Comment on above: Performed By: #### G SHANEKA #### Point of Care testing , Nucleated RBC/100 WBC (Bld) [Ratio] 0.4 % Normal 0-0.5 [facility] Comment on above: Performed By: #### G ARVINDLS #### Point of Care testing , Platelet mean volume (Bld) [Entitic vol] 9.1 fL Normal 6.3-10.7 [facility] Comment on above: Performed By: #### G ARVINDLS #### Point of Care testing , Platelets (Bld) [#/Vol] 201 10*3/uL Normal 150-450 [facility] Comment on above: Performed By: #### G ARVINDLS #### Point of Care testing , RBC (Bld) [#/Vol] 4.47 10*6/uL Normal 3.60-5.00 [facility] Comment on above: Performed By: #### G SHANEKA #### Point of Care testing , WBC (Bld) [#/Vol] 5.7 10*3/uL Normal 4.5-11.0 [facility] Comment on above: Performed By: #### G SHANEKA #### Point of Care testing , Basophils (Bld) [#/Vol] 0.1 10*3/uL Normal 0.0-0.2 [facility] Comment on above: Result Comment: PERF ORMED BY: [place] [address] PATHOLOGIST SENIOR DIRECTOR INSIGHT DOMINGA SOLIMAN M.D. Performed By: #### P T, CBC, PTT #### [facility] [address] Basophils/100 WBC (Bld) 0.7 % Normal . [facility] Comment on above: Performed By: #### P T, CBC, PTT #### [facility] [address] Eosinophils (Bld) [#/Vol] 0.1 10*3/uL Normal 0.0-0.45 [facility] Comment on above: Performed By: #### P T, CBC, PTT #### [address] Eosinophils/100 WBC (Bld) 1.5 % Normal . [facility] Comment on above: Performed By: #### P T, CBC, PTT #### [address] Erythrocyte distribution width (RBC) [Ratio] 15.4 % High 11.9-15.3 [facility] Comment on above: Performed By: #### P T, CBC, PTT #### [address] Hematocrit (Bld) [Volume fraction] 41.4 % Normal 34.0-46.4 [facility] Comment on above: Performed By: #### P T, CBC, PTT #### [address] Hemoglobin (Bld) [Mass/Vol] 14.0 g/dL Normal 11.8-15.4 [facility] Comment on above: Performed By: #### P T, CBC, PTT #### [address] Lymphocytes (Bld) [#/Vol] 2.0 10*3/uL Normal 1.00-4.8 [facility] Comment on above: Performed By: #### P T, CBC, PTT #### [place] [address] [place] Lymphocytes/100 WBC (Bld) 30.1 % Normal . [facility] Comment on above: Performed By: #### P T, CBC, PTT #### [address] MCH (RBC) [Entitic mass] 30.4 pg Normal 24.7-34.3 [facility] Comment on above: Performed By: #### P T, CBC, PTT #### [facility] [address] MCV (RBC) [Entitic vol] 89.6 fL Normal 80-100 [facility] [facility] Comment on above: Performed By: #### P T, CBC, PTT #### [facility] [address] Mean Corpuscular HGB Conc 33.9 g/dL Normal 32.0-35.0 [facility] Comment on above: Performed By: #### P T, CBC, PTT #### [facility] [address] Monocytes (Bld) [#/Vol] 0.4 10*3/uL Normal 0.0-0.8 [facility] Comment on above: Performed By: #### P T, CBC, PTT #### [facility] [address] Monocytes/100 WBC (Bld) 6.4 % Normal . [facility] Comment on above: Performed By: #### P T, CBC, PTT #### [facility] [address] [place] [address] [place] Neutrophils (Bld) [#/Vol] 4.2 10*3/uL Normal 1.8-7.7 [facility] Comment on above: Performed By: #### P T, CBC, PTT #### [place] [address] [place] Neutrophils/100 WBC (Bld) 61.3 % Normal . [facility] Comment on above: Performed By: #### P T, CBC, PTT #### [facility] [address] [place] [address] [place] Nucleated RBC/100 WBC (Bld) [Ratio] 0.1 % Normal 0-0.5 [facility] Comment on above: Performed By: #### P T, CBC, PTT #### [facility] [address] Platelet mean volume (Bld) [Entitic vol] 8.9 fL Normal 6.3-10.7 [facility] Comment on above: Performed By: #### P T, CBC, PTT #### [facility] [address] Platelets (Bld) [#/Vol] 197 10*3/uL Normal 150-450 [facility] Comment on above: Performed By: #### P T, CBC, PTT #### [facility] [address] RBC (Bld) [#/Vol] 4.62 10*6/uL Normal 3.60-5.00 [facility] Comment on above: Performed By: #### P T, CBC, PTT #### [facility] [address] WBC (Bld) [#/Vol] 6.8 10*3/uL Normal 4.5-11.0 [facility] Comment on above: Performed By: #### P T, CBC, PTT #### [facility] [address] Comprehensive Metabolic Pane dom 08-07-2020 Albumin [Mass/Vol] 3.4 g/dL Normal 3.2-5.5 [facility] Comment on above: Performed By: #### G SHANEKA #### Point of Care testing , Albumin/Globulin [Mass ratio] 1.0 {ratio} Normal [facility] Comment on above: Performed By: #### G SHANEKA #### Point of Care testing , ALP [Catalytic activity/Vol] 107 U/L High 32-92 [facility] Comment on above: Performed By: #### G SHANEKA #### Point of Care testing , ALT [Catalytic activity/Vol] 17 U/L Normal 10-60 [facility] Comment on above: Performed By: #### G SHANEKA #### Point of Care testing , AST [Catalytic activity/Vol] 25 U/L Normal 10-42 [facility] Comment on above: Performed By: #### G SHANEKA #### Point of Care testing , Bilirubin [Mass/Vol] 0.9 mg/dL Normal 0.3-1.2 [facility] Comment on above: Performed By: #### G ARVINDLS #### Point of Care testing , Calcium [Mass/Vol] 9.1 mg/dL Normal 8.2-10.2 [facility] Comment on above: Performed By: #### G LULS #### Point of Care testing , Chloride [Moles/Vol] 105 mmol/L Normal 95-114 [facility] Comment on above: Performed By: #### G ARVINDLS #### Point of Care testing , CO2 [Moles/Vol] 20.9 mmol/L Low 22.0-30.0 [facility] Comment on above: Performed By: #### G ARVINDLS #### Point of Care testing , Creatinine [Mass/Vol] 0.96 mg/dL Normal 0.44-1.03 [facility] Comment on above: Performed By: #### G ARVINDLS #### Point of Care testing , Creatinine Clr Calc Pharmacy 54.35 [facility] Comment on above: Performed By: #### G ARVINDLS #### Point of Care testing , Estimated GFR ( Vania > 60 [facility] Comment on above: Result Comment: GFR estimated reference range: According to KDOQI guidelines, <60 ml/min/1.73m2 is sufficient to diagnose a patient with chronic kidney disease. Performed By: #### G LULS #### Point of Care testing , Estimated GFR (Non- Am 57 [facility] Comment on above: Performed By: #### G LULS #### Point of Care testing , Globulin (S) [Mass/Vol] 3.5 g/dL [facility] Comment on above: Performed By: #### G LULS #### Point of Care testing , Glucose [Mass/Vol] 391 mg/dL High 70-100 [facility] Comment on above: Result Comment: [place] Glucose Reference Range is dependent on time and content of last meal. Glucose of more than 200 mg/dL in a nonstressed, ambulatory subject supports the diagnosis of Diabetes Mellitus. ADA recommended reference range Performed By: #### G LULS #### Point of Care testing , Potassium [Moles/Vol] 4.4 mmol/L Normal 3.5-5.1 [facility] Comment on above: Performed By: #### [place] MUNROE #### Point of Care testing , Protein [Mass/Vol] 6.9 g/dL Normal 6.1-7.9 [facility] Comment on above: Performed By: #### [place] MUNROE #### Point of Care testing , Sodium [Moles/Vol] 136 mmol/L Normal 136-146 [facility] Comment on above: Performed By: #### [place] MUNROE #### Point of Care testing , Urea nitrogen [Mass/Vol] 19 mg/dL Normal 9-23 [facility] Comment on above: Performed By: #### [place] MUNROE #### Point of Care testing , Albumin [Mass/Vol] 3.4 g/dL Normal 3.2-5.5 [facility] Comment on above: Performed By: #### [place] MUNROE #### Point of Care testing , Albumin/Globulin [Mass ratio] 0.9 {ratio} Normal [facility] Comment on above: Performed By: #### [place] MUNROE #### Point of Care testing , ALP [Catalytic activity/Vol] 100 U/L High 32-92 [facility] Comment on above: Performed By: #### [place] MUNROE #### Point of Care testing , ALT [Catalytic activity/Vol] 17 U/L Normal 10-60 [facility] Comment on above: Performed By: #### [place] MUNROE #### Point of Care testing , AST [Catalytic activity/Vol] 34 U/L Normal 10-42 [facility] Comment on above: Performed By: #### [place] MUNROE #### Point of Care testing , Bilirubin [Mass/Vol] 0.8 mg/dL Normal 0.3-1.2 [facility] Comment on above: Performed By: #### [place] MUNROE #### Point of Care testing , Calcium [Mass/Vol] 9.2 mg/dL Normal 8.2-10.2 [facility] Comment on above: Performed By: #### [place] MUNROE #### Point of Care testing , Chloride [Moles/Vol] 104 mmol/L Normal 95-114 [facility] Comment on above: Performed By: #### G LULS #### Point of Care testing , CO2 [Moles/Vol] 20.0 mmol/L Low 22.0-30.0 [facility] Comment on above: Performed By: #### G LULS #### Point of Care testing , Creatinine [Mass/Vol] 0.95 mg/dL Normal 0.44-1.03 [facility] Comment on above: Performed By: #### G LULS #### Point of Care testing , Creatinine Clr Calc Pharmacy 55.10 [facility] Comment on above: Result Comment: PERF ORMED BY: [facility] [address] [address] PATHOLOGIST SENIOR DIRECTOR INSIGHT DOMINGA SOLIMAN M.D. Performed By: #### G LULS #### Point of Care testing , Estimated GFR ( Vania > 60 [facility] Comment on above: Result Comment: GFR estimated reference range: According to KDOQI guidelines, <60 ml/min/1.73m2 is sufficient to diagnose a patient with chronic kidney disease. Performed By: #### G LULS #### Point of Care testing , Estimated GFR (Non- Am 58 [facility] Comment on above: Performed By: #### G LULS #### Point of Care testing , Globulin (S) [Mass/Vol] 3.6 g/dL [facility] Comment on above: Performed By: #### G LULS #### Point of Care testing , Glucose [Mass/Vol] 271 mg/dL High 70-100 [facility] Comment on above: Result Comment: [place] om Glucose Reference Range is dependent on time and content of last meal. Glucose of more than 200 mg/dL in a nonstressed, ambulatory subject supports the diagnosis of Diabetes Mellitus. ADA recommended reference range Performed By: #### G LULS #### Point of Care testing , Potassium [Moles/Vol] 4.0 mmol/L Normal 3.5-5.1 [facility] Comment on above: Performed By: #### G LULS #### Point of Care testing , Protein [Mass/Vol] 7.0 g/dL Normal 6.1-7.9 [facility] Comment on above: Performed By: #### G LULS #### Point of Care testing , Sodium [Moles/Vol] 136 mmol/L Normal 136-146 [facility] Comment on above: Performed By: #### G LULS #### Point of Care testing , Urea nitrogen [Mass/Vol] 15 mg/dL Normal 9-23 [facility] Comment on above: Performed By: #### G LULS #### Point of Care testing , [facility] echo transthoracicon [facility] echo transthoracic [facility] [place] [address] Echocardiogram Signed Patient: Lucila Tineo MR#: [id number] : 1950 Acct:[id number] Age/Sex: 70 / F ADM Date: 08/06/20 Loc: Room: [address] [place] [address] Type: ADM IN Attending Dr: Drew Patterson MD Ordering Provider: Bravo Abdi MD Date of Service: 08/06/20 [facility] echo transthoracic: NSTEMI, wall motion abnormalities Copies to: MD Cory Del Toro MD, [facility] Height: 64 in Weight: 167 [...] DELANO 08/07/201126 Dictated By: Cory Vazquez MD, [facility] 08/07/20 09 Signed By: 08/07/20 1127 [facility] Glucose Poct Glucometerson 0 08-07-2020 Commemt3 Cleaned Meter [facility] Comment on above: Result Comment: PERF ORMED BY: [facility] [address] [place] [address] PATHOLOGIST SENIOR DIRECTOR INSIGHT DOMINGA SOLIMAN M.D. Performed By: #### G LULS #### Point of Care testing , Glucose [Mass/Vol] 503 mg/dL Off scale [facility] Comment on above: Result Comment: [facility] Glucose Reference Range is dependent on time and content of last meal. Glucose of more than 200 mg/dL in a nonstressed, ambulatory subject supports the diagnosis of Diabetes Mellitus. Performed By: #### G LULS #### Point of Care testing , Commemt1 Glu2: Cleaned Meter [facility] Comment on above: Result Comment: PERF ORMED BY: [place] [address] PATHOLOGIST SENIOR DIRECTOR INSIGHT DOMINGA SOLIMAN M.D. Performed By: #### G LULS #### Point of Care testing , Glucose [Mass/Vol] 299 mg/dL [facility] Comment on above: Result Comment: [place] om Glucose Reference Range is dependent on time and content of last meal. Glucose of more than 200 mg/dL in a nonstressed, ambulatory subject supports the diagnosis of Diabetes Mellitus. Performed By: #### G LULS #### Point of Care testing , Commemt1 [facility] Comment on above: Result Comment: Glu2 : Will Repeat Test Performed By: #### G LULS #### Point of Care testing , Result Comment: Glu2 : WILL NOTIFY DR/RN Commemt2 Cleaned Meter [facility] Comment on above: Result Comment: PERF ORMED BY: [place] [address] PATHOLOGIST SENIOR DIRECTOR INSIGHT DOMINGA SOLIMAN M.D. Performed By: #### G LULS #### Point of Care testing , Glucose [Mass/Vol] 429 mg/dL Off scale [facility] Comment on above: Result Comment: [place] om Glucose Reference Range is dependent on time and content of last meal. Glucose of more than 200 mg/dL in a nonstressed, ambulatory subject supports the diagnosis of Diabetes Mellitus. Performed By: #### G LULS #### Point of Care testing , Commemt1 Glu2: Cleaned Meter [facility] Comment on above: Performed By: #### P T, CBC, PTT #### [facility] [address] [place] [address] [place] Commemt2 WILL NOTIFY DR/RN [facility] Comment on above: Performed By: #### G LULS #### Point of Care testing , Performed By: #### P T, CBC, PTT #### [facility] [address] [place] [address] Commemt3 Will Repeat Test Normal [facility] Comment on above: Result Comment: PERF ORMED BY: [address] [place] [address] PATHOLOGIST SENIOR DIRECTOR INSIGHT DOMINGA SOLIMAN M.D. Performed By: #### P T, CBC, PTT #### [address] Glucose [Mass/Vol] 429 mg/dL Off scale high [facility] Comment on above: Result Comment: [place] om Glucose Reference Range is dependent on time and content of last meal. Glucose of more than 200 mg/dL in a nonstressed, ambulatory subject supports the diagnosis of Diabetes Mellitus. Performed By: #### P T, CBC, PTT #### [address] Commemt1 Glu2: Cleaned Meter Normal [facility] Comment on above: Result Comment: PERF ORMED BY: [address] [place] [address] PATHOLOGIST SENIOR DIRECTOR INSIGHT DOMINGA SOLIMAN M.D. Performed By: #### G LULS #### Point of Care testing , Glucose [Mass/Vol] 373 mg/dL Normal [facility] Comment on above: Result Comment: [place] om Glucose Reference Range is dependent on time and content of last meal. Glucose of more than 200 mg/dL in a nonstressed, ambulatory subject supports the diagnosis of Diabetes Mellitus. Performed By: #### G LULS #### Point of Care testing , Glucose [Mass/Vol] 261 mg/dL Normal [facility] Comment on above: Result Comment: [place] om Glucose Reference Range is dependent on time and content of last meal. Glucose of more than 200 mg/dL in a nonstressed, ambulatory subject supports the diagnosis of Diabetes Mellitus. PERFORMED BY: [place] [address] PATHOLOGIST SENIOR DIRECTOR INSIGHT DOMINGA SOLIMAN M.D. Performed By: #### P T, CBC, PTT #### [address] Lipid Panelon 08-07-2020 Cholesterol [Mass/Vol] 201 mg/dL High 140-200 [facility] Comment on above: Result Comment: Chol less than 200 mg/dl low risk Chol 201-239 mg/dl borderline risk Chol 240 mg/dl and greater high risk Performed By: #### G LULS #### Point of Care testing , Cholesterol in HDL [Mass/Vol] 49 mg/dL Normal 35-85 [facility] Comment on above: Result Comment: HDL CHOL ATP-III CLASSIFICATION Cardiovascular Risk HDL > or equal to 60 mg/dL LOW HDL < 40 mg/dL HIGH Performed By: #### G LULS #### Point of Care testing , Cholesterol.total/Ch olesterol in HDL [Mass ratio] 4.1 {ratio} Normal <5.0 [facility] Comment on above: Result Comment: PERF ORMED BY: [facility] [address] [place] [address] PATHOLOGIST SENIOR DIRECTOR INSIGHT DOMINGA SOLIMAN M.D. Performed By: #### G LULS #### Point of Care testing , LDL Cholesterol,Calculat ed 127 mg/dL High 0-100 [facility] Comment on above: Result Comment: LDL ATP III CLASSIFICATION LDL less than 100 mg/dL Optimal LDL 100-129 mg/dL Near or above optimal LDL 130-159 mg/dL Borderline high LDL 160-189 mg/dL High LDL greater than 189 mg/dL Very high Performed By: #### G LULS #### Point of Care testing , Triglyceride w/Reflex 126 mg/dL Normal 35-149 [facility] Comment on above: Result Comment: TRIG ATP III CLASSIFICATION TRIG less than 150 mg/dL Normal TRIG 150-199 mg/dL Borderline high TRIG 200-500 mg/dL High TRIG greater than 500 mg/dL Very high Standard traceable to the Center for Disease Conrtrol and Prevention (CDC) test method. Performed By: #### G LULS #### Point of Care testing , VLDL CHOLESTEROL 25 mg/dL Normal [facility] Comment on above: Performed By: #### G LULS #### Point of Care testing , Magnesiumon 08-07-2020 Magnesium [Mass/Vol] 2.0 mg/dL Normal 1.6-2.6 [facility] Comment on above: Performed By: #### G LULS #### Point of Care testing , Partial Thromboplastin Timeo n 08-07-2020 aPTT Coag (Bld) [Time] 42.8 s High 25.1-36.5 [facility] Comment on above: Result Comment: PERF ORMED BY: [place] [address] PATHOLOGIST SENIOR DIRECTOR INSIGHT DOMINGA SOLIMAN M.D. Performed By: #### G LULS #### Point of Care testing , aPTT Coag (Bld) [Time] 33.2 s Normal 25.1-36.5 [facility] Comment on above: Result Comment: PERF ORMED BY: [place] [address] PATHOLOGIST SENIOR DIRECTOR INSIGHT DOMINGA SOLIMAN M.D. Performed By: #### P T, CBC, PTT #### [address] Prothrombin Time INRon 08-07 INR Coag (PPP) [Relative time] 1.0 {INR} Normal [facility] Comment on above: Result Comment: INR Therapeutic [...] Coag (PPP) [Time] 11.4 s Normal 9.0-12.9 [facility] Comment on above: Performed By: #### G LULS #### Point of Care testing , INR Coag (PPP) [Relative time] 1.0 {INR} Normal [facility] Comment on above: Result Comment: INR Therapeutic [...] By: #### P T, CBC, PTT #### [facility] [address] PT Coag (PPP) [Time] 11.2 s Normal 9.0-12.9 [facility] Comment on above: Performed By: #### P T, CBC, PTT #### [facility] [address] Troponin I(TnI)on 08-07-2020 Troponin I.cardiac [Mass/Vol] 3.26 ng/mL Off scale high 0-0.02 [facility] Comment on above: Result Comment: [place] Cut off value > or equal to 0.03 ng/mL in conjunction with clinical conditions of myocardial infarction. (www.escardio.org/guidelines) PERFORMED BY: [place] [address] PATHOLOGIST SENIOR DIRECTOR INSIGHT DOMINGA SOLIMAN M.D. Performed By: #### P T, CBC, PTT #### [facility] [address] Troponin I.cardiac [Mass/Vol] 3.61 ng/mL Off scale high 0-0.02 [facility] Comment on above: Result Comment: [place] Cut off value > or equal to 0.03 ng/mL in conjunction with clinical conditions of myocardial infarction. (www.escardio.org/guidelines) PERFORMED BY: [place] [address] PATHOLOGIST SENIOR DIRECTOR INSIGHT DOMINGA SOLIMAN M.D. Performed By: #### T ROP #### [facility] [address] [place] [address] [place] Troponin I.cardiac [Mass/Vol] 4.39 ng/mL Off scale high 0-0.02 [facility] Comment on above: Result Comment: Resu lts called at 0009 on 08/07/20 [place] Cut off value > or equal to 0.03 ng/mL in conjunction with clinical conditions of myocardial infarction. (www.escardio.org/guidelines) PERFORMED BY: [place] [address] PATHOLOGIST SENIOR DIRECTOR INSIGHT DOMINGA SOLIMAN M.D. Performed By: #### P T, CBC, PTT #### [address] ECG 12 lead ECGon 08-06-2020 ECG 12 lead ECG [facility] [place] [address] [place] [address] Electrocardiograph Report Signed Patient: Lucila Tineo MR#: [id number] : 1950 Acct:[id number] Age/Sex: 70 / F ADM Date: 08/06/20 Loc: Room: [address] [place] [address] Type: ADM IN Attending Dr: Drew Patterson [...] Marshall Castillo MD 08/06/202110 Signed By: 08/07/20 171 [facility] Vital Signs Date Time Vital Sign Value Performing Clinician Faci lity 12-11-2021 11:20-0400 Body height 162.56 cm Mily Gaitanpatrick Work Phone: [facility] DO Work Phone: 12-11-2021 11:20-0400 Body mass index (BMI) [Ratio] 27.98 kg/m2 Mily Ashley Andrade Work Phone: [facility] 250 DO Work Phone: 12-11-2021 11:20-0400 Body surface area Derived from formula 1.79 m2 Mily Ashley Andrade Work Phone: [facility] 250 DO Work Phone: 12-11-2021 11:20-0400 Body weight 73.94 kg Mily Ashley Andrade Work Phone: [facility] 250 DO Work Phone: 12-11-2021 11:20-0400 Diastolic blood pressure 78 mm[Hg] Mily Ashley Andrade Work Phone: [facility] 250 DO Work Phone: 12-11-2021 11:20-0400 Heart rate 76 /min Mily Ashley Andrade Work Phone: [facility] 250 DO Work Phone: 12-11-2021 11:20-0400 Systolic blood pressure 136 mm[Hg] Mily Ashley Andrade Work Phone: [facility] 250 DO Work Phone: 02-05-2021 11:35-0500 Body height 162.56 cm Mily Ashley Andrade Work Phone: [facility] 250 DO Work Phone: 02-05-2021 11:35-0500 Body mass index (BMI) [Ratio] 28.67 kg/m2 Mily Ashley Andrade Work Phone: [facility] 250 DO Work Phone: 02-05-2021 11:35-0500 Body surface area Derived from formula 1.81 m2 Mily Ashley Andrade Work Phone: [facility] 250 DO Work Phone: 02-05-2021 11:35-0500 Body weight 75.75 kg Mily Ashley Andrade Work Phone: [facility] 250 DO Work Phone: 02-05-2021 11:35-0500 Diastolic blood pressure 81 mm[Hg] Mily Ashley Andrade Work Phone: [facility] 250 DO Work Phone: 02-05-2021 11:35-0500 Heart rate 77 /min Mily Ashley Andrade Work Phone: [facility] 250 DO Work Phone: 02-05-2021 11:35-0500 Systolic blood pressure 157 mm[Hg] Mily Ashley Andrade Work Phone: [facility] 250 DO Work Phone: 12-04-2020 15:01-0400 Diastolic blood pressure 72 mm[Hg] Bruce Elias DO Work Phone: [facility] 600 DO Work Phone: 12-04-2020 15:01-0400 Systolic blood pressure 170 mm[Hg] Bruce Elias DO Work Phone: [facility] 600 DO Work Phone: 12-04-2020 13:53-0400 Body height 162.56 cm Bruce Elias DO Work Phone: [facility] 600 DO Work Phone: 12-04-2020 13:53-0400 Body mass index (BMI) [Ratio] 29.01 kg/m2 Bruce Elias DO Work Phone: [facility] 600 DO Work Phone: 12-04-2020 13:53-0400 Body surface area Derived from formula 1.82 m2 Bruce Elias DO Work Phone: [facility] 600 DO Work Phone: 12-04-2020 13:53-0400 Body weight 76.66 kg Bruce Elias DO Work Phone: -[facility] 600 DO Work Phone: 12-04-2020 13:53-0400 Diastolic blood pressure 90 mm[Hg] Bruce Elias DO Work Phone: -[facility] 600 DO Work Phone: 12-04-2020 13:53-0400 Heart rate 68 /min Bruce Elias DO Work Phone: [facility] 600 DO Work Phone: 12-04-2020 13:53-0400 Systolic blood pressure 150 mm[Hg] Bruce Elias DO Work Phone: [facility] 600 DO Work Phone: 11-06-2020 15:18-0400 70 1 Bruce Elias DO Work Phone: [facility] 600 DO Work Phone: Comment on above: [id number] Encounters Encounter Date Encounter Type Care Provider Facility Start: 03-06-2023 End: 03-06-2023 ambulatory ANGE GEE [facility] Start: 03-05-2023 Telephone encounter Corrie Goldstein [facility] Start: 03-02-2023 ambulatory [facility] Start: 03-01-2023 ambulatory [facility] Start: 01-20-2023 ambulatory Jah Diaz MD Work Phone: [facility] Comment on above: Anticoag Start: 01-16-2023 ambulatory Jah Diaz MD Work Phone: [facility] Comment on above: Images Start: 01-02-2023 Telephone encounter Jah Diaz MD Work Phone: [facility] Comment on above: [employer] Start: 12-16-2022 End: 12-16-2022 ambulatory Jah Diaz MD Work Phone: [facility] Comment on above: Unruptured cerebral aneurysm (Primary Dx); Ischemic stroke (HCC); Hypertension, unspecified type; Hyperlipidemia, unspecified hyperlipidemia type; Smoking Start: 12-16-2022 End: 12-16-2022 Telemedicine consultation with patient Jah Diaz MD Work Phone: [facility] Start: 12-04-2022 Telephone encounter Neurology [facility] Comment on above: Future Appointment ( [place], Any) Start: 08-25-2022 Rx Renewal Mily Ashley Arnie dumasrick Work Phone: [facility] DO Work Phone: Start: 01-07-2022 Rx Renewal Mily Ashley Arnie dumasrick Work Phone: [facility] 250 DO Work Phone: Start: 12-11-2021 Office outpatient vi sit 15 minutes Mily Andrade Work Phone: [facility] 250 DO Work Phone: Start: 12-11-2021 ambulatory Ms. Mily ramos Andrade Facility: Start: 10-11-2021 Telephone encounter Mily Andrade Work Phone: [facility] 250 DO Work Phone: Start: 09-03-2021 Rx Renewal Mily Ashley Arnie boswell Work Phone: [facility] 250 DO Work Phone: Start: 02-05-2021 Office outpatient vi sit 10 minutes Mily Andrade Work Phone: [facility] [employer] 250 DO Work Phone: Start: 02-05-[address] Bruce Elias Fac ility: Start: 12-04-2020 Patient encounter procedure Bruce Elias DO Work Phone: [facility] 600 DO Work Phone: Start: 09-05-2020 End: 03-06-2021 ambulatory SALAS KIRKPATRICK Facility:H1 Echocardiogram normal Milydayana Albertok Work Phone: [facility] [employer] 250 DO Work Phone: Procedures Date Procedure Procedure Detail Performing Clinician Start: 03-06-2023 Follow-up visit Follow-up ANGE GEE Appendectomy Bruce Elias DO Work Phone: Decompression of med estuardo nerve Bruce Elias DO Work Phone: Excision of cyst Bruce zmabrano DO Work Phone: Hysterectomy Bruce Elias DO Work Phone: Ligation of fallopian tube Jodi dalia Curt DO Work Phone: Percutaneous translu darryl coronary angioplasty Bruce Elias DO Work Phone: Tonsillectomy Bruce ramos DO Work Phone: Total colonoscopy Bruce robin DO Work Phone: Plan of Treatment Date Care Activity Detail Author Start: 06-09-2028 DTaP,Tdap and Td Vaccines (2 - Td or Tdap) DTaP,Tdap and Td Vaccines (2 - Td or Tdap) [facility] Start: 06-09-2028 Urine microalbumin profile DTaP,Tdap,Td Vaccine (2 - Td or Tdap) [facility] Start: 01-16-2026 Diabetes Screening Diabetes Screening [facility] Start: 01-22-2024 Adult BMI Screening Adult BMI Screening [facility] Start: 01-19-2024 Tobacco Screening Tobacco Screening [facility] Start: 03-06-2023 End: 03-06-2023 Patient encounter procedure 03/06/2023 10:15 AM EST Office Visit [facility] [address] [place] [id number] Ange Gee MD [address] [place] [address] [facility] Start: 12-11-2022 FUV, Provider: Bruce Elias, Status: Pen, Time: 10:20 AM FUV, Provider: Bruce Elias, Status: Pen, Time: 10:20 AM [facility] 250 DO Work Phone: Start: 10-31-2022 Covid-19 Vaccine () Covid-19 Vaccine () [facility] Start: 10-31-2022 Influenza vaccination [facility] Start: 03-02-2022 Advance Directive Discussion Advance Directive Discussion [facility] Start: 03-02-2022 Depression Assessment Depression Assessment [facility] Start: 12-11-2021 FUV, Provider: Bruce Elias, Status: Pen, Time: 11:20 AM FUV, Provider: Bruce Elias, Status: Pen, Time: 11:20 AM [facility] 600 DO Work Phone: Start: 02-19-2021 NURSEVST, Provider: DAVID LANDEROS CLEANING LABORER 1,[id number], Status: Pen, Time: 11:00 AM NURSEVST, Provider: DAVID LANDEROS CLEANING LABORER 1,[id number], Status: Pen, Time: 11:00 AM [facility] 250 DO Work Phone: Start: 01-09-2021 FUV, Provider: Salas Wilson, Status: Pen, Time: 1:30 PM FUV, Provider: Salas Wilson, Status: Pen, Time: [facility]:30 PM [facility] Work Phone: Start: 04-03-2020 Administration of varicella zoster vaccine Zoster (Shingles) Vaccine (2 of 2) [facility] Start: 04-03-2020 Shingrix Vaccine (2 of 2) Shingrix Vaccine (2 of 2) [facility] Start: 2015 Bone Density Screening Bone Density Screening [facility] Start: 2015 Fall Risk Screening Fall Risk Screening [facility] Start: 2010 RSV Vaccine (1 - 1-dose 60+ series) RSV Vaccine (1 - 1-dose 60+ series) [facility] Start: 02-22-2000 Shingrix Vaccine (1 of 2) Shingrix Vaccine (1 of 2) [facility] Start: 1995 Cologuard (FIT-DNA) Cologuard (FIT-DNA) [facility] Start: 1995 Colonoscopy Colonoscopy [facility] Start: 1995 Colorectal Cancer Screening Colorectal Cancer Screening [facility] Start: [address] COLONOGRAPHY [facility] Start: 1995 Diabetes Screening Diabetes Screening [facility] Start: 1995 Fecal Occult Blood Fecal Occult Blood [facility] Start: 1995 Lipid 1996 panel - Serum or Plasma Lipid Screening [facility] Start: 1995 SIGMOIDOSCOPY SIGMOIDOSCOPY [facility] Start: 1990 Mammography Mammogram Screening [facility] Start: 1969 Urine microalbumin profile DTaP,Tdap,Td Vaccine (1 - Tdap) [facility] Start: 02-22-1968 Adult BMI Follow Up Plan Adult BMI Follow Up Plan [facility] Start: 02-22-1968 Diabetic foot examination Diabetic Foot Exam [facility] Start: 02-22-1968 Hepatitis C Screening Hepatitis C Screening [facility] Start: 1962 Depression Screening Depression Screening [facility] Start: 02-22-1956 Pneumococcal Vaccine: 65+ (1 - PCV) Pneumococcal Vaccine: 65+ (1 - PCV) [facility] Start: 1950 Glaucoma screening Diabetic Ophthalmology Exam [facility] Start: 1950 Medicare Annual Wellness Visit Medicare Annual Wellness Visit [facility] Start: 1950 Tobacco Counseling Tobacco Counseling [facility] Start: 1950 Urine screening for protein Urine Microalbumin [facility] Immunizations Immunization Date Immunization Notes Care Provider Ronny naylor 05-16-2022 influenza virus vaccine, unspecified formulation Jah Diaz MD Work Phone: [facility] 04-10-2021 Moderna COVID-19 Vaccine 100 MCG/0.5ML Intramuscular Suspension Mily Albertok Work Phone: [facility] [employer] 250 DO Work Phone: 05-09-2020 Lico COVID-19 Vaccine 0.5 ML Intramuscular Suspension Bruce Elias DO Work Phone: [facility] 02-07-2020 influenza, high dose seasonal, preservative-free Bruce [facility]as DO [facility] Work Phone: 02-07-2020 zoster vaccine recombinant Brcue Elias DO Work Phone[facility] DO Work Phone: 02-07-2020 influenza virus vaccine, unspecified formulation Neurology Provider [facility] 02-07-2020 zoster vaccine, unspecified formulation Corrie Goldstein [facility] 03-02-2019 influenza, seasonal, injectable [facility] DO [facility] Work Phone: 02-14-2019 influenza, high dose seasonal, preservative-free Bruce Elias DO Work Phone[facility] DO Work Phone: 06-09-2018 tetanus toxoid, redu clif diphtheria toxoid, and acellular pertussis vaccine, adsorbed Bruce Elias DO Work Phone: [facility] DO Work Phone: 03-02-2018 pneumococcal polysaccharide vaccine, 23 valent Bruce Updon DO Work Phone: [facility] 600 DO Work Phone: 12-02-2017 influenza, high dose seasonal, preservative-free Bruce Elias DO [facility]: [facility] DO Work Phone: 02-25-2017 influenza, high dose seasonal, preservative-free Bruce Elias DO Work Phone: [facility] 600 DO Work Phone: 02-17-2017 pneumococcal polysaccharide vaccine, 23 valent Bruce Elias DO [facility]: [facility] Work Phone: 11-06-2015 influenza, injectabl e, quadrivalent, contains preservative Bruce Elias DO Work Phone: [facility] 600 DO Work Phone: 11-06-2015 pneumococcal conjuga te vaccine, 13 valent Bruce Elias DO Work Phone: [facility] 600 DO Work Phone: 12-15-2013 influenza, seasonal, injectable Bruce Elias DO Work Phone: [facility] 600 DO Work Phone: 12-21-2012 influenza, seasonal, injectable Bruce Elias DO Work Phone: [facility] 600 DO Work Phone: 12-16-2006 pneumococcal polysaccharide vaccine, 23 valent Bruce [facility] DO [facility] Work Phone: 11-18-2006 pneumococcal polysaccharide vaccine, 23 valent Bruce [facility] DO [facility] Work Phone: Payers Date Payer Category Payer Medicaid [id number] 2018 Medicare [id number] 1959 Medicare [id number] 1950 Unknown [id number] 1950 Unknown [id number] [id number] 1950 Unknown [id number] [id number]. [id number] 1950 Unknown [id number] 1950 Unknown [id number] 1950 Unknown [id number] Unknown Social History Date Type Detail Facility Start: 10-14-2018 End: 05-08-2020 No alcohol use No alcohol use [facility] Comment on above: 1 TEA DAILY; 1/2 PPD; Start: 10-14-2018 End: 05-27-2022 Tobacco smoking status NHIS Smokes tobacco daily [facility] History of tobacco use [facility] Start: 10-14-2018 End: 05-27-2022 Tobacco use and exposure Smokeless tobacco non-user [facility] Start: 04-21-2019 End: 05-08-2020 Tobacco use panel [facility] National Score (1-10 0), lower number is lower risk Not on file [facility] Start: 1950 [facility]igned [facility] Start: 12-09-2022 Gender identity Identifies as female gender (finding) [facility] Start: 12-09-2022 Sexual orientation Heterosexual (chay vasquez) [facility] Start: 01-18-2023 Alcohol intake [facility] (finding) [facility] Start: 1950 Sex Assigned At Not on file P [facility] Goals Date Patient Goal Desired Activity /State [...] to their appointment. documented in this encounter [facility] Telephone encounter Note 03-05-2023 Telephone Encounter - Corrie Goldstein CMA - 03/05/2023 12:21 PM EST Note Date & Type Note Facility 03-05-2023 Telephone encount er Note Left message for patient to remind them to bring their most current medication list with them to their appointment. [facility] Note 01-02-2023 Telephone Encounter - Lane [...] either call this office or send a [employer] Chart message with preference documented in this encounter [facility] Progress note 12-16-2022 Note Date & Type Note Facility 12-16-2022 Note HNO ID: [id number] Author: Jah Diaz MD Service: ? Author Type: Physician Type: Progress Notes Filed: 12/16/2022 6:24 PM Note Text: [facility] Virtual Visit Lucila Pierce Rivka CC#: [id number] Date of Service: 12/16/2022 Primary Care Provider: Mily Andrade, EQUIPMENT MANAGER [address] [place] [address] The patient was referred by Osei Majano [...] brain aneurysm. The patient was residing in [place], and was found down on October 29, [...] stroke work-up. The patient then returned to [place], and she is still at a nursing [...] Discontinue saline lo (more content not included)... [facility] History of Present illness Narrative 12-16-2022 Jah Diaz MD - 12/16/2022 1:06 PM EDT Note Date & Type Note Facility 12-16-2022 History of Presen t illness Narrative [facility] Virtual Visit Lucila Tineo [facility]#: [id number] Date of Service: 12/16/2022 Primary Care Provider: Mily Andrade, EQUIPMENT MANAGER [address] [facility] [address] The patient was referred by Osei Majano [...] brain aneurysm. The patient was residing in [place], and was found down on October 29, [...] stroke work-up. The patient then returned to [place], and she is still at a nursing [...] cause of the patient's right MCA stroke. OSH MRI brain September 2022: Available images demonstrate a large right hemispheric acute ischemic stroke. Additional changes also seen in the left occipital pole of unclear etiology, possibly previous ischemia. Stroke Mechanism and Scales Ischemic or TIA: Ischemic Stroke Cerebrovascular Disease w/o Stroke Event: Unruptured Aneurysm Modified Rutland Score: Score: 4 NIH Stroke Scale: LOC: [...] OSEI MAJANO [address] [facility] [address] Mily Andrade [address] [place] [address] documented in this encounter [facility] Note 12-08-2022 Telephone Encounter - Tonja Andre - 12/08/2022 7:18 AM EDTTelephone Encounter - Tonja Andre - 12/04/2022 11:16 AM EDTTelephone Encounter - Tonja Andre - 12/04/2022 11:00 AM EDT Note Date & Type Note Facility 12-08-2022 Miscellaneous Notes Formattin g of this note might be different from the original. Images from the original note were not included. OSH imaging/records received from [facility]: December 08, 2022 -10.3.23 Dr. Majano Progress Notes scanned to chart. -Medical Hx & Imaging Reports available in Care Everywhere. Received confirmation email from Caio that imaging hs been uploaded--per dropping off disc to imaging library to upload as I wasn't able to + kept getting error per below. Images from the original note were not included. [facility] December 04, 2022 -10.3.23 Dr. Majano Progress Notes scanned to chart. PENDING: Imaging -Medical Hx & Imaging Reports Walked discs over to imaging library + gave to Adry to upload MAGDALENE. Successfully sent [employer] & [employer] overnight label via [employer] [facility] [employer]~ Tracking#[id number] December 05, 2022 10:30 AM 07 [employer] Priority Overnight $14.14 From: Theresa mabry Last change on 12/04/2022 12:16:46 pm Sent on 12/04/2022 12:16:33 pm Completed ENDOVASCULAR INTAKE Patient name: Lucila Tineo Confirm Diagnosis/RFV (Reason for Visit): Aneurysm Is this a self-referral? no, who is the referring provider : Osei Majano [facility] in [place], [place]/His direct office number if any questions: [phone] Is this a direct referral? yes neurosurgeon Have you been recommended for surgery or procedure? Yes. coiling Are you seeking a second opinion? Yes. Do you have a MRI/MRA/CT/Ultrasound for this diagnosis? Yes. Type of imaging CT's, name/address of facility where completed [facility]. [Only has reports in folder, no images] [...] if any questions. documented in this encounter [facility] Evaluation note Note Date & Type Note Facility Evaluation note Diagnosis Unruptured cerebral aneurysm- Primary Cerebral aneurysm, nonruptured Ischemic stroke (HCC) Hypertension, unspecified type Hyperlipidemia, unspecified hyperlipidemia type Smoking Tobacco use disorder documented in this encounter [facility] History of Present illness Narrative Note [...] medication regimen. She denies medication side effects. 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 [facility] trop[facility]. [...] section and content) DATE CREATED AUTHOR 08/20/2020 [facility] DATE CREATED AUTHOR AUTHOR'S ORGANIZ ATION 03/11/2021 [facility] DATE CREATED AUTHOR AUTHOR'S ORGANIZ ATION 12/11/2021 [facility] DATE CREATED AUTHOR AUTHOR'S ORGANIZ ATION 12/11/2021 [employer] DATE CREATED AUTHOR AUTHOR'S ORGANIZ ATION 04/26/2022 [facility] dical Specialist DATE CREATED AUTHOR AUTHOR'S ORGANIZ ATION 02/14/2023 [facility] DATE CREATED AUTHOR AUTHOR'S ORGANIZ ATION 03/02/2023 [facility] DATE CREATED AUTHOR AUTHOR'S ORGANIZ ATION 03/08/2023 [facility] Source Comments (unrecognize d section and content) In the event this informatio n is protected by the Federal Confidentiality of Alcohol and Drug Abuse Patient Records regulations: The Federal rules restrict any use of the information to criminally investigate or prosecute any alcohol or drug abuse patient.[facility] the event this information is protected by the Federal Confidentiality of Alcohol and Drug Abuse Patient Records regulations: The Federal rules restrict any use of the information to criminally investigate or prosecute any alcohol or drug abuse patient.[facility] the event this information is protected by the Federal Confidentiality of Alcohol and Drug Abuse Patient Records regulations: The Federal rules restrict any use of the information to criminally investigate or prosecute any alcohol or drug abuse patient.[facility] the event this information is protected by the Federal Confidentiality of Alcohol and Drug Abuse Patient Records regulations: The Federal rules restrict any use of the information to criminally investigate or prosecute any alcohol or drug abuse patient.[facility] the event this information is protected by the Federal Confidentiality of Alcohol and Drug Abuse Patient Records regulations: The Federal rules restrict any use of the information to criminally investigate or prosecute any alcohol or drug abuse patient.[facility] the event this information is protected by the Federal Confidentiality of Alcohol and Drug Abuse Patient Records regulations: The Federal rules restrict any use of the information to criminally investigate or prosecute any alcohol or drug abuse patient.[facility] Reason for Visit (unrecogniz ed section and content) Reason Comments Future Appointment [place], [place], Any Reason Comments Unruptured Aneurysm 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 [employer] provides no warranty or guarantee of the accuracy or completeness of information in this document.
[2023-03-09 12:52] LABS: Anion Gap 7.5; BUN Creatinine Ratio 21.2; Calcium 9.3 mg/dL (8.5-10.1); Carbon Dioxide 28.1 mmol/L (21.0-32.0); Chloride 108 mmol/L (98-107); Estimated GFR (African America >60 (>=60); Estimated GFR (Non-African Ame >60 (>=60); Glucose 144 mg/dL (74-106); Potassium 3.6 mmol/L (3.5-5.1); Sodium 140 mmol/L (136-145)
== END 2023-03-09 03:21 | disposition home or self-care (01) ==
LOC: LAB 03:20
PROVIDERS: PCP Family Medicine; Visit Provider Family Medicine
DX: R09.89 Other specified symptoms and signs involving the circulatory and respiratory systems (principal); Z51.81 Encounter for therapeutic drug level monitoring
CPT/HCPCS: 36415; 80048

== ENCOUNTER 2023-04-01 02:15 | Outpatient (REF) | payer MEDICARE, MEDICAID, SELFPAY ==
--- OUTSIDE RECORDS SUMMARY | 2023-04-01 02:27 | XMS_ITS | CCD ---
Author Name Unknown Address [address] [place] [address] Organization [facility] Care Team Providers Care Data Control Clerk Name Role Phone Unavailable Unavailable Mily Andrade Unavailable SALAS KIRKPATRICK Attending Unavailable SALAS KIRKPATRICK Admitting Unavailable Lupe, Ms. Mily Beckwith Primary Care Rosemary vailable Dr. Bruce Elias Attending Unavailable Dr. Bruce Elias Referring Unavailable Dr. Bruce Elias Referring Unavailable CHELITA Sandhu Attending Unavailable Lupe, Ms. Mily Beckwith Primary Care Rosemary vailable Andrade Mily MERLOS Primary Care Provider Osei Roe Unavailable LUPE MILY A Referring Unavailab le ANDRADE, MILY A Primary Care Unavailab le ANDRADE, MILY A Referring Unavailab le ANDRADE, MILY A Primary Care Unavailab le Andrade TRANSFORMER COIL WINDER-SHEET METAL MECHANIC, Mily A Primary Care Pro vider ANGE GEE Attending Unavailable ANDRADE, MILY A Referring Unavailab le ANDRADE, MILY A Primary Care Unavailab le ANDRADE, MILY Primary Care Unavailable BRO HAWK Attending Unavailable LUPE MILY Primary Care Unavailable BRO HAWK Referring Unavailable OSEI ROE Referring Unavailable ANDRADE, MILY Primary Care Unavailable JAH SHARPE Attending Unavailable ANDRADE, MILY Primary Care Unavailable EDWARD CHRISTINE Attending Unavailable Allergies Allergy Classification Reported Allergen(s) Allergy Type Date of Onset Reaction(s) Facility (13 sources) Penicillins; Translations: [Penicillins] Allergy to drug (finding) 9 [facility] (8 sources) Penicillins Drug Allergy 9 Hives, Other (See Comments) [facility] Medications Current Medications Medication Drug Class(es) Dates Sig (Normalized) Sig (Original) amLODIPine 5 mg oral tablet (2 sources) Dihydropyridine Calcium Channel Shantel take 1 tablet by mouth in the morning amLODIPine (NORVASC) 5 mg tablet Take 1 tablet (5 mg total) by mouth in the morning. 0 Active apixaban 5 mg oral tablet (2 sources) Factor Xa Inhibitor Start: 01-21-2023 take 1 tablet by mouth in the morning, then take 1 tablet by mouth at bedtime apixaban (ELIQUIS) 5 mg tablet Take 1 tablet (5 mg total) by mouth in the morning and 1 tablet (5 mg total) before bedtime. 60 tablet 2 01/21/2023 Active calcium carbonate 1250 mg / cholecalciferol 200 unt oral tablet (2 sources) Vitamin D take 1 tablet by mouth once in the morning calcium carbonate-vitam in D3 (OSCAL 500 + D) 500 mg(1,250mg) -200 units per tablet Take 1 tablet by mouth in the morning and 1 tablet in the evening. Take with meals. 0 Active docusate sodium 50 mg / sennosides, chcf 8.6 mg oral tablet (2 sources) take 1 tablet by mouth in the morning sennosides-docu sate sodium (SENNA WITH DOCUSATE SODIUM) 8.6-50 mg Take 1 tablet by mouth in the morning. 0 Active 3 ml insulin aspart, human 100 unt/ml pen injector (18 sources) Insulin Analog insulin aspart U-100 (NovoLOG) 100 unit/mL (3 mL) insulin pen Inject under the skin. 0 Active insulin aspart ( NOVOLOG FLEXPEN U-100 INSULIN SUBCUTANEOUS) Inject subcutaneously. Per sliding scale 0 Active NovoLOG SOLN INJ ECT SUBCUTANEOUSLY DIRECTED. Quantity: 0 Refills: 0 Ordered: 04-Dec-2020 DO Active Comment on above: Inject subcutaneousl y. Per sliding scale insulin glargine 100 unt/ml injectable solution (2 sources) Insulin Analog inject 0.15 mL by subcutaneous injection once daily insulin glargine (LANTUS) 100 unit/mL injection Inject 0.15 mL (15 Units total) under the skin nightly. 0 Active insulin lispro (HumaLOG) 100 unit/mL insulin pen (4 sources) Start: 01-22-20 insulin lispro (HumaLOG) 100 unit/mL insulin pen [...] Active levothyroxine sodium 0.15 mg oral tablet (18 sources) l-Thyroxine take 1 tablet by mouth in the morning levothyroxine (SYNTHROID, LEVOTHROID) 150 MCG tablet Take 1 tablet (150 mcg total) by mouth in the morning. 0 Active Comment on above: Take 150 mcg by mout h once daily. magnesium hydroxide 80 mg/ml oral suspension (2 sources) take 30 mL by mouth once daily as needed magnesium hydroxide 400 mg/5 mL suspension Take 30 mL by mouth nightly as needed. 0 Active melatonin 3 mg oral capsule (2 sources) take 1 capsule by mouth once daily as needed melatonin 3 mg capsule Take 3 mg by mouth nightly as needed (insomnia). 0 Active ondansetron 4 mg oral tablet (2 sources) Serotonin-3 Receptor Antagonist take 1 tablet by mouth every eight hours as needed for nausea and vomiting ondansetron (ZOFRAN) 4 mg tablet Take 1 tablet (4 mg total) by mouth every 8 (eight) hours as needed for nausea or vomiting. 0 Active pregabalin 25 mg oral capsule (2 sources) take 1 capsule by mouth in the morning, then take 1 capsule by mouth at bedtime pregabalin (LYRICA) 25 mg capsule Take 1 capsule (25 mg total) by mouth in the morning and 1 capsule (25 mg total) before bedtime. 0 Active sennosides, chcf 8.6 mg oral tablet (2 sources) Start: 023 take 1 tablet by mouth twice daily as needed for constipation senna (SENOKOT) 8.6 mg tablet Take 1 tablet (8.6 mg total) by mouth 2 (two) times a day as needed for constipation. 30 each 0 01/21/2023 Active traMADol hydrochloride 50 mg oral tablet (1 source) Opioid Agonist Start: 023 take 1 tablet by mouth every six hours as needed for pain traMADoL (ULTRAM) 50 mg tablet Take 1 tablet (50 mg total) by mouth every 6 (six) hours as needed for pain. 0 01/31/2023 Active 24 hr venlafaxine 37.5 mg extended release oral capsule (2 sources) Serotonin and Norepinephrine Reuptake Inhibitor take 1 [...] once daily. atorvastatin 40 mg oral tablet (18 sources) HMG-CoA Reductase Inhibitor Start: 07-05-19 take [...] Date Episodic/Chronic Acute and unspecified renal failure (2 sources) Acute injury of kidney; Translations: [Acute kidney failure, unspecified] Onset: 01-16-2023 01-16-2023 Episodic Acute cerebrovascular disease (1 source) Ischemic stroke; Translations: [Cerebral infarction, unspecified] 12-16-2022 Chronic Aortic; peripheral; and visceral artery aneurysms (14 sources) Aneurysm of descending aorta; Translations: [Aortic aneurysm of unspecified site without mention of rupture] Onset: 11-19-2020 Resolved: 01-16-2023 11-19-2020 Chronic Cardiac dysrhythmias (3 sources) Paroxysmal atrial fibrillation; Translations: [Paroxysmal atrial fibrillation] Onset: 03-06-2023 03-06-2023 Chronic Chronic obstructive pulmonary disease and bronchiectasis (12 sources) Chronic obstructive lung disease; Translations: [Chronic airway obstruction, not elsewhere classified] Onset: 01-16-2023 01-16-2023 Chronic Coronary atherosclerosis and other heart disease (17 sources) Coronary arteriosclerosis; Translations: [Coronary atherosclerosis of unspecified type of vessel, creek or graft] Onset: 09-05-2020 Chronic Diabetes mellitus with complications (5 sources) Diabetic ketoacidosis without coma; Translations: [Type 2 diabetes mellitus with ketoacidosis without coma] Onset: 01-08-2021 01-16-2023 Chronic Diabetes mellitus without complication (11 sources) Diabetes mellitus; Translations: [Diabetes mellitus without mention of complication, type II or unspecified type, not stated as uncontrolled] Onset: 03-11-2021 Chronic Disorders of lipid metabolism (14 sources) Hyperlipidemia; Translations: [Other and unspecified hyperlipidemia] Onset: 12-01-2014 12-16-2022 Chronic E Codes: Fall (2 sources) Fall; Translations: [Unspecified fall, initial encounter] Onset: 01-16-2023 01-16-2023 Episodic Essential hypertension (16 sources) Hypertensive disorder; Translations: [Unspecified essential hypertension] Onset: 03-11-2021 12-16-2022 Chronic Fluid and electrolyte disorders (2 sources) Metabolic acidosis, increased anion gap (IAG); Translations: [High anion gap metabolic acidosis] Onset: 01-16-2023 01-16-2023 Episodic Intestinal obstruction without hernia (2 sources) Fecal impaction; Translations: [Fecal impaction] Onset: 01-18-2023 01-18-2023 Episodic Noninfectious gastroenteritis (2 sources) Stercoral colitis; Translations: [Other specified noninfective gastroenteritis and colitis] Onset: 01-18-2023 01-18-2023 Episodic Nonspecific chest pain (1 source) Chest pain, unspecified; Translations: [Chest pain, unspecified type] Onset: 03-25-2023 Episodic Occlusion or stenosis of precerebral arteries (2 sources) Bilateral stenosis of carotid arteries; Translations: [Occlusion and stenosis of bilateral carotid arteries] Onset: 11-19-2020 11-19-2020 Chronic Other and ill-defined cerebrovascular disease (1 source) Cerebral arterial aneurysm; Translations: [Cerebral aneurysm, nonruptured] 12-16-2022 Chronic Other and ill-defined cerebrovascular disease (2 sources) Aneurysm of middle cerebral artery; Translations: [Cerebral aneurysm, nonruptured] Onset: 01-16-2023 01-16-2023 Chronic Other circulatory disease (2 sources) History of cerebrovascular accident; Translations: [Personal history [...] conditions (not mental disorders or infectious disease) (2 sources) Raised cardiac enzyme or marker; Translations: [Other specified abnormal findings of blood chemistry] Onset: 01-16-2023 01-16-2023 Episodic Peripheral and visceral atherosclerosis (8 sources) Peripheral vascular disease; Translations: [Peripheral vascular disease, unspecified] Onset: 11-19-2020 11-19-2020 Chronic Residual codes; unclassified (1 source) Pain, unspecified; Translations: [Pain, unspecified] Onset: 03-01-2023 Episodic Substance-related disorders (11 sources) Smokes tobacco daily; Translations: [Tobacco use disorder] 12-16-2022 Chronic Comment on above: 03/03 PPD; Unclassified (1 source) Thoracic aortic aneurysm without rupture, unspecified part (HCC); Translations: [Thoracic aortic aneurysm without rupture, unspecified part (HCC)] Onset: 03-25-2023 Past or Other Problems Problem Classification Problem Date Documented Da te Episodic/Chronic Acute myocardial infarction (12 sources) Myocardial infarction; Translations: [Subendocardial infarction, initial episode of care] Onset: 01-16-2023 Resolved: 01-16-2023 01-16-2023 Chronic Screening and history of mental health and substance abuse codes (2 sources) Ex-smoker; Translations: [Personal history of nicotine dependence] Onset: 01-16-2023 Resolved: 01-16-2023 01-16-2023 Episodic Spondylosis; intervertebral disc disorders; other back problems (4 sources) Lumbar radiculopathy; Translations: [Radiculopathy, lumbar region] Onset: 11-27-2021 Resolved: 01-16-2023 11-27-2021 Episodic Results Test Name Value Interpretation Reference Range Facility CBC panel Auto (Bld)on 03-25 Erythrocyte distribution width (RBC) [Ratio] 14.9 % Normal 11.5-15.0 [facility] Comment on above: Order Comment: Speci men Type: BLOOD SPECIMENOrdering Facility: [facility] Address: [address] [place] [address] Performed By: #### 5 8410-2 ####[facility] LABCLIA [id number] [facility] [id number] [place] [address] [place] Hematocrit (Bld) [Volume fraction] 37.0 % Normal 36.0-46.0 [facility] Comment on above: Order Comment: Speci men Type: BLOOD SPECIMENOrdering Facility: [facility] Address: [address] [place] [address] Performed By: #### 5 8410-2 ####[facility] LABIA [id number] [place] [address] [place] Hemoglobin (Bld) [Mass/Vol] 12.1 g/dL Normal 11.5-15.5 [facility] Comment on above: Order Comment: Speci men Type: BLOOD SPECIMENOrdering Facility: [facility] Address: [address] [place] [address] Performed By: #### 5 8410-2 ####[facility] [id number] [place] [address] [place] MCH (RBC) [Entitic mass] 29.4 pg Normal 26.0-34.0 [facility] Comment on above: Order Comment: Speci men Type: BLOOD SPECIMENOrdering Facility: [facility] Address: [address] [place] [address] Performed By: #### 5 8410-2 ####[facility] [id number] [place] [address] [place] MCHC (RBC) [Mass/Vol] 32.7 g/dL Normal 30.5-36.0 [facility] Comment on above: Order Comment: Speci men Type: BLOOD SPECIMENOrdering Facility: [facility] Address: [address] [place] [address] Performed By: #### 5 8410-2 ####[facility] [id number] [place] [address] [place] MCV (RBC) [Entitic vol] 90.0 fL Normal 80.0-100.0 [facility] Comment on above: Order Comment: Speci men Type: BLOOD SPECIMENOrdering Facility: [facility] Address: [address] [place] [address] Performed By: #### 5 8410-2 ####[facility] LABCLIA [id number] [place] [address] [place] Nucleated RBC (Bld) [#/Vol] 10*3/uL Normal <0.01 [facility] Comment on above: Order Comment: Speci men Type: BLOOD SPECIMENOrdering Facility: [facility] Address: [address] [place] [address] Performed By: #### 5 8410-2 ####[facility] LABIA [id number] [place] [address] [place] Platelet mean volume (Bld) [Entitic vol] 12.2 fL Normal 9.0-12.7 [facility] Comment on above: Order Comment: Speci men Type: BLOOD SPECIMENOrdering Facility: [facility] Address: [address] [place] [address] Performed By: #### 5 8410-2 ####[facility] LABIA [id number] [place] [address] [place] Platelets (Bld) [#/Vol] 157 10*3/uL Normal 150-400 [facility] Comment on above: Order Comment: Speci men Type: BLOOD SPECIMENOrdering Facility: [facility] Address: [address] [place] [address] Performed By: #### 5 8410-2 ####[facility] LABCLIA [id number] [place] [address] [place] RBC (Bld) [#/Vol] 4.11 10*6/uL Normal 3.90-5.20 [facility] Comment on above: Order Comment: Speci men Type: BLOOD SPECIMENOrdering Facility: [facility] Address: [address] [place] [address] Performed By: #### 5 8410-2 ####[facility] LABCLIA [id number] [place] [address] [place] WBC (Bld) [#/Vol] 3.70 10*3/uL Normal 3.70-11.00 [facility] Comment on above: Order Comment: Speci men Type: BLOOD SPECIMENOrdering Facility: [facility] Address: [address] [place] [address] Performed By: #### 5 8410-2 ####[facility] LABCLIA [id number] [place] [address] [place] CNOVon 03-25-2023 CNOV Office Visit (VASSMN ) LUCILA TINEO ([id number]) 1950 F Date Time Provider Department 03/25/23 9:15 AM BRO HAWK During your visit today, we recorded the following information about you: Pulse Blood pressure 104/minute 140/84 Bro Hawk MD 03/25/2023 11:09 AM [facility] [place] DEPARTMENT OF VASCULAR SURGERY OUTPATIENT VISIT DATE March 25, 2023 OUTPATIENT VISIT TYPE ESTABLISHED SERVICE DATE: 03/25/2023 SERVICE TIME: 11:07 AM PRIMARY CARE PHYSICIAN: Mily Andrade CNP HISTORY OF PRESENT ILLNESS: Ms. Tineo is a 73 year old female who presents today for a vascular surgery follow-up visit of her taaa. PAST MEDICAL HISTORY Diagnosis Date Current smoker Diabetes mellitus (HCC) Diabetes mellitus w/irratic blood glucose(s) SHIRA (renal artery stenosis) ([facility]) 2 arteries partially occluded Thoracoabdominal aortic aneurysm (TAAA) ([facility]) PAST SURGICAL HISTORY Procedure Laterality Date APPENDECTOMY HYSTERECTOMY SOCIAL HISTORY Social History Tobacco Use Smoking status: Every Day Packs/day: 0.75 Years: 62.00 Additional pack years: 0.00 Total pack years: 46.50 Types: Cigarettes Smokeless tobacco: Never MEDICATIONS: amLODIPine (NORVASC) 5 mg tablet Take 5 mg by mouth once daily. apixaban (ELIQUIS) 5 mg tab(s) Take 5 mg by mouth two times a day. pregabalin (LYRICA) 25 mg capsule Take 25 mg by mouth two times a day. ondansetron (ZOFRAN) 4 mg tablet Take 4 mg by mouth every 8 hours as needed for nausea/vomiting. POTASSIUM-99 ORAL Take 40 mEq by mouth once daily. Sennosides (SENNA) 8.6 mg cap Take 1 capsule by mouth as needed. traMADol (ULTRAM) 50 mg tablet Take 50 mg by mouth every 6 hours as needed for pain. venlafaxine ER (EFFEXOR XR) 37.5 mg 24 hr capsule Take 37.5 mg by mouth once daily. insulin glargine,hum.rec.anlog (INSULIN GLARGINE SUBCUTANEOUS) Inject 15 Units subcutaneously once daily. SLIDING SCALE insulin lispro (HUMALOG KWIKPEN) 100 unit/mL Inject 4 Units subcutaneously three times a day before meals. SLIDING SCALE atorvastatin (LIPITOR) 40 mg tablet Take 40 mg by mouth once daily. aspirin, enteric coated (ASPIRIN, ENTERIC COATED) 81 mg EC tablet Take 81 mg by mouth once daily. levothyroxine (SYNTHROID) 150 mcg tablet Take 150 mcg by mouth once daily. metoprolol succinate ER (TOPROL XL) 100 mg Take 100 mg by mouth once daily. clopidogrel (PLAVIX) 75 mg tablet Take 75 mg by mouth once daily. nitroglycerin sublingual (NITROQUICK) 0.4 mg SL tablet Dissolve 0.4 mg under the tongue every 5 minutes as needed. iv contrast (will be provided with radiology [...] Take 50 mg by mouth once daily. insulin degludec (TRESIBA [...] in the CT contrast administration guidelines link. ALLERGIES: ALLERGIES Allergen Reactions Peni (more content not included)... Normal [facility] CT BRAIN WO IVCONon 03-25-19 CT BRAIN WO IVCON * * *Final Report* * * DATE OF EXAM: Mar 25 2023 12:09PM [facility] 0504 - CT BRAIN WO IVCON / PROCEDURE REASON: Head trauma, moderate-severe * * * * Physician Interpretation * * * * EXAMINATION: CT BRAIN WO IVCON CLINICAL HISTORY: Head trauma, moderate to severe. TECHNIQUE: Serial axial images without IV contrast were obtained from the vertex to the foramen magnum. MQ: [id number] CT Radiation dose: Integrated Dose-Length Product (DLP) for this visit = 775 mGy*cm CT Dose Reduction Employed: Automated exposure control (AEC) COMPARISON: MRI brain and MRA 01/16/2023 CT brain 01/16/2023. RESULT: There is persistent intravenous contrast on board from earlier administration for the CTA chest/abdomen/pelvis, degrading assessment. Waiter Waitress (topogram) images: No additional findings. Post-operative change: None. Acute change: No evidence of an acute infarct or other acute parenchymal process. Hemorrhage: See below regarding hyperattenuation. No definite acute intracranial hemorrhage. 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 Mild localized mass effect on the anterior temporal pole superiorly, with adjacent vasogenic edema, similar to prior exams. Chronic change: Late subacute to chronic infarct in the right posterior MCA territory involving right parietal lobe, right posterior insula, and extending to the right superior temporal lobe, evolved from prior MRI 01/16/2023 and older examinations from 10/29/2022.Hypoattenuat ion extending to subcortical white matter and periventricular white matter. Notable gyriform appearing high attenuation along the cortical margins less, most likely reflecting gyriform enhancement from contrast material retained (from earlier CTA abdomen and pelvis 03/25/2023), and/or associated mineralization, overall enhancement pattern similar to the prior brain MRI 01/16/2023, within constraints of technical differences and prior motion artifact. Blood products in this region overall considered unlikely. Additional area of encephalomalacia involving the left occipital pole with subcortical of curvilinear high attenuation along the basal occipital region, also similar to prior brain MRI, most likely reflecting vascular enhancement or late subacute to chronic enhancement associated with the prior infarct. Patchy foci of low attenuation coefficient are present within the supratentorial white matter which is a nonspecific finding but likely represents moderate microvascular ischemia. Parenchyma: There is moderate generalized volume loss. Ventricles: Ex vacuo dilatation of the right lateral ventricle at the dorsal body, atrium, occipital horn. Slight ex vacuo dilatation of the left occipital horn. The remainder of the ventricular system appears commensurate with parenchymal volume. Paranasal sinuses and skull base: The visualized paranasal sinuses are grossly clear. The skull base and imaged soft tissues are unremarkable. IMPRESSION: No definite acute intracranial abnormality. Remote infarcts in the right posterior MCA and left PEDIATRIC DERMATOLOGIST territories with associated encephalomalacic changes, and interval development of high attenuation along the cortical margins on the right and few areas of high attenuation in the left PEDIATRIC DERMATOLOGIST territory. Findings most likely reflect gyriform enhancement (and/or possible component of mineralization) related to the late subacute to chronic infarcts, given the preceding same day enhanced CTA, and appears grossly similar to the prior MRI. Blood products in this region overall considered unlikely. 1.6 cm left MCA bifurcation partially calcified aneurysm, with mild mass effect upon the adjacent left anterior temporal lobe and stable adjacent vasogenic edema. Nail Puller: PSCB Transcribe Date/Time: Mar 25 2023 12:10P Dictated by : KRISTINE SANDHU MD This examination was interpreted and the report reviewed and electronically signed by: KASSANDRA SAWYER MD on Mar 25 2023 12:53PM EST [id number] Normal [facility] CTA ABD/PELV WO/W IVCONon CTA ABD/PELV WO/W IVCON * * *Final Report* * * DATE OF EXAM: Mar 25 2023 10:28AM [facility] 0467 - CTA ABD/PELV WO/W IVCON / PROCEDURE REASON: Thoracic aortic aneurysm without rupture, unspecified part (HCC) * * * * Physician Interpretation * * * * CTA Aorta chest , abdomen, and pelvis Direct Image Comparison: 2020 HISTORY: 73 years old Female with aortic disease TECHNIQUE: SCANNER: Multi-detector scanner PROTOCOL: 2-phase, non-gated spiral imaging with thin-slice reconstruction was performed following (arterial and venous phase) intravenous administration of contrast material Scan Range: thoracic inlet through the ischial tuberosities CT Dose-Length Product (DLP): 413 mGy*cm CT Dose Reduction Employed: Automated exposure control(AEC) and iterative recon CONTRAST: IV administration of 100 ml Omnipaque 350 Scan acquisition: uncomplicated For optimization of anatomic evaluation, advanced 3-D off-line postprocessing was performed on a dedicated workstation by the interpreting physician. STUDY LIMITATIONS: None. RESULT: LINES, TUBES and DEVICES: None CHEST: Chest wall anatomy: unremarkable. Hypodense nodules thyroid gland LUNGS: Superior emphysematous changes. Calcified granuloma. MEDIASTINUM: unremarkable. PERICARDIUM: unremarkable CENTRAL PULMONARY ARTERY: normal dimensions, assessment is limited due to limited contrast enhancement CARDIAC CHAMBERS: assessment is limited in the non-gated study LEFT VENTRICLE: normal size Right ventricle: normal size Left atrium: mildly dilated. AURORA: normal Right atrium: normal size CENTRAL VENOUS and PULMONARY VENOUS RETURN: normal Coronary Sinus: normal size MITRAL and TRICUSPID VALVE: Assessment is limited in the current study no leaflet calcification, No annular calcification PULMONIC VALVE: Assessment is limited in the current study; no leaflet calcification CORONARY ANATOMY: Normal origin of the coronary arteries Moderate atherosclerotic changes of the coronary arteries. However, the current study is not optimized for coronary assessment. AORTIC VALVE: Assessment is limited in the current study; no leaflet calcification AORTA: Size: Severe of descending thoracic aorta (4.6 cm at diaphragm; 4.2 cm on a prior CT) and suprarenal abdominal aorta. Pathology: No acute aortic pathology. STJ: maintained Wall Changes: moderate to severe Arch Branch Vessels: Normal origin of the arch branch vessels. Severe protruding atheromatous changes in the left subclavian and innominate artery without significant luminal narrowing. Visceral Branch Vessels: Normal origin of the visceral branch vessels and renal arteries. Severe luminal narrowing of proximal celiac trunk. Iliac Arteries: Patent, normal size iliac arteries. Partially calcified wall changes AORTIC DIMENSIONS: AORTIC ROOT: 3.3 cm measured [id number] mid ASCENDING THORACIC AORTA: 3.7 cm mid AORTIC ARCH: 3.1 cm mid DESCENDING THORACIC AORTA: 4.2 cm Diaphragm: 4.6 cm JUXTARENAL ABDOMINAL AORTA (level of SMA): 3.9 cm mid INFRARENAL ABDOMINAL AORTA: 3.1 cm ABDOMEN Gallbladder: unremarkable Liver: unremarkable Spleen: unremarkable Adrenal glands: unremarkable Pancreas: unremarkable Kidneys: Known segmental cortical thinning of the left kidney. Bowel: appears unremarkable within limitations of non-GI contrast examination PELVIS: scattered phleboliths Bladder: unremarkable IMPRESSION: Severe ectasia of descending thoracic aorta (4.6 cm at diaphragm; 4.2 cm on a prior CT) and suprarenal abdominal aorta. Slight progression since 2020. No significant changes otherwise. Nail Puller: МАРИНА Transcribe Date/Time: Mar 25 2023 12:00P Dictated by : SOHAM ALEMAN MD This examination was interpreted and the report reviewed and electronically signed by: SOHAM ALEMAN MD on Mar 25 2023 1:16PM EST [id number] Normal [facility] CTA CHEST (NONGATED) WO/W IV CONon 03-25-2023 CTA CHEST (NONGATED) WO/W IVCON * * *Final Report* * * DATE OF EXAM: Mar 25 2023 10:28AM [facility] [place] 0124 - CTA CHEST (NONGATED) WO/W IVCON / PROCEDURE REASON: Thoracic aortic aneurysm without rupture, unspecified part (HCC) * * * * Physician Interpretation * * * * CTA Aorta chest , abdomen, and pelvis Direct Image Comparison: 2020 HISTORY: 73 years old Female with aortic disease TECHNIQUE: SCANNER: Multi-detector scanner PROTOCOL: 2-phase, non-gated spiral imaging with thin-slice reconstruction was performed following (arterial and venous phase) intravenous administration of contrast material Scan Range: thoracic inlet through the ischial tuberosities CT Dose-Length Product (DLP): 413 mGy*cm CT Dose Reduction Employed: Automated exposure control(AEC) and iterative recon CONTRAST: IV administration of 100 ml Omnipaque 350 Scan acquisition: uncomplicated For optimization of anatomic evaluation, advanced 3-D off-line postprocessing was performed on a dedicated workstation by the interpreting physician. STUDY LIMITATIONS: None. RESULT: LINES, TUBES and DEVICES: None CHEST: Chest wall anatomy: unremarkable. Hypodense nodules thyroid gland LUNGS: Superior emphysematous changes. Calcified granuloma. MEDIASTINUM: unremarkable. PERICARDIUM: unremarkable CENTRAL PULMONARY ARTERY: normal dimensions, assessment is limited due to limited contrast enhancement CARDIAC CHAMBERS: assessment is limited in the non-gated study LEFT VENTRICLE: normal size Right ventricle: normal size Left atrium: mildly dilated. AURORA: normal Right atrium: normal size CENTRAL VENOUS and PULMONARY VENOUS RETURN: normal Coronary Sinus: normal size MITRAL and TRICUSPID VALVE: Assessment is limited in the current study no leaflet calcification, No annular calcification PULMONIC VALVE: Assessment is limited in the current study; no leaflet calcification CORONARY ANATOMY: Normal origin of the coronary arteries Moderate atherosclerotic changes of the coronary arteries. However, the current study is not optimized for coronary assessment. AORTIC VALVE: Assessment is limited in the current study; no leaflet calcification AORTA: Size: Severe of descending thoracic aorta (4.6 cm at diaphragm; 4.2 cm on a prior CT) and suprarenal abdominal aorta. Pathology: No acute aortic pathology. STJ: maintained Wall Changes: moderate to severe Arch Branch Vessels: Normal origin of the arch branch vessels. Severe protruding atheromatous changes in the left subclavian and innominate artery without significant luminal narrowing. Visceral Branch Vessels: Normal origin of the visceral branch vessels and renal arteries. Severe luminal narrowing of proximal celiac trunk. Iliac Arteries: Patent, normal size iliac arteries. Partially calcified wall changes AORTIC DIMENSIONS: AORTIC ROOT: 3.3 cm measured [id number]-tu-wlpsi mid ASCENDING THORACIC AORTA: 3.7 cm mid AORTIC ARCH: 3.1 cm mid DESCENDING THORACIC AORTA: 4.2 cm Diaphragm: 4.6 cm JUXTARENAL ABDOMINAL AORTA (level of SMA): 3.9 cm mid INFRARENAL ABDOMINAL AORTA: 3.1 cm ABDOMEN Gallbladder: unremarkable Liver: unremarkable Spleen: unremarkable Adrenal glands: unremarkable Pancreas: unremarkable Kidneys: Known segmental cortical thinning of the left kidney. Bowel: appears unremarkable within limitations of non-GI contrast examination PELVIS: scattered phleboliths Bladder: unremarkable IMPRESSION: Severe ectasia of descending thoracic aorta (4.6 cm at diaphragm; 4.[address] prior CT) and suprarenal abdominal aorta. Slight progression since 2020. No significant changes otherwise. Nail Puller: МАРИНА Transcribe Date/Time: Mar 25 2023 12:00P Dictated by : SOHAM ALEMAN MD This examination was interpreted and the report reviewed and electronically signed by: SOHAM ALEMAN MD on Mar 25 2023 1:16PM EST [id number] Normal [facility] Comprehensive metabolic 2000 panelon 03-25-2023 Albumin [Mass/Vol] 3.5 g/dL Low 3.9-4.9 [facility] Comment on above: Order Comment: Speci men Type: BLOOD SPECIMENOrdering Facility: [facility] Address: [address] [place] [address] Performed By: #### 2 4323-8 ####[facility] LABCLIA [id number] [place] [address] [place] ALP [Catalytic activity/Vol] 93 U/L Normal 34-123 [facility] Comment on above: Order Comment: Speci men Type: BLOOD SPECIMENOrdering Facility: [facility] Address: [address] [place] [address] Result Comment: Resu lts may be falsely decreased due to interference from hemolysis. Suggest reorder as clinically indicated. Performed By: #### 2 4323-8 ####[facility]CL[facility] [id number] [place] [address] [place] ALT [Catalytic activity/Vol] 21 U/L Normal 7-38 [facility] Comment on above: Order Comment: Speci men Type: BLOOD SPECIMENOrdering Facility: [facility] Address: [address] [place] [address] Result Comment: Resu lts may be falsely increased due to interference from hemolysis. Suggest reorder as clinically indicated. Performed By: #### 2 4323-8 ####[facility]CLIA [id number] [address] [place] Anion gap [Moles/Vol] 11 mmol/L Normal 9-18 [facility] Comment on above: Order Comment: Speci men Type: BLOOD SPECIMENOrdering Facility: [facility] Address: [address] [place] [address] Performed By: #### 2 4323-8 ####[facility]CL[facility] [id number] [address] [place] AST [Catalytic activity/Vol] 49 U/L High 13-35 [facility] Comment on above: Order Comment: Speci men Type: BLOOD SPECIMENOrdering Facility: [facility] Address: [address] [place] [address] Result Comment: Resu lts may be falsely increased due to interference from hemolysis. Suggest reorder as clinically indicated. Performed By: #### 2 4323-8 ####[facility]CL[facility] [id number] [place] [address] [place] Bilirubin [Mass/Vol] 0.4 mg/dL Normal 0.2-1.3 [facility] Comment on above: Order Comment: Speci men Type: BLOOD SPECIMENOrdering Facility: [facility] Address: [address] [place] [address] Performed By: #### 2 4323-8 ####[facility]CLIA [id number] [place] [address] [place] Calcium [Mass/Vol] 9.1 mg/dL Normal 8.5-10.2 [facility] Comment on above: Order Comment: Speci men Type: BLOOD SPECIMENOrdering Facility: [facility] Address: [address] [place] [address] Performed By: #### 2 4323-8 ####[facility]CLIA [id number] [place] [address] [place] Chloride [Moles/Vol] 101 mmol/L Normal 97-105 [facility] Comment on above: Order Comment: Speci men Type: BLOOD SPECIMENOrdering Facility: [facility] Address: [address] [place] [address] Performed By: #### 2 4323-8 ####[facility]CLIA [id number] [place] [address] [place] CO2 [Moles/Vol] 19 mmol/L Low 22-30 [facility] Comment on above: Order Comment: Speci men Type: BLOOD SPECIMENOrdering Facility: [facility] Address: [address] [place] [address] Performed By: #### 2 4323-8 ####[facility]CLIA [id number] [place] [address] [place] Creatinine [Mass/Vol] 0.60 mg/dL Normal 0.58-0.96 [facility] Comment on above: Order Comment: Speci men Type: BLOOD SPECIMENOrdering Facility: [facility] Address: [address] [place] [address] Performed By: #### 2 4323-8 ####[facility]CLIA [id number] [place] [address] [place] Creatinine and Glomerular filtration rate.predicted panel (S/P/Bld) 95 mL/min/1.73m??? Normal >=60 [facility] Comment on above: Order Comment: Speci men Type: BLOOD SPECIMENOrdering Facility: [facility] Address: [address] [place] [address] Result Comment: Janice mated Glomerular Filtration Rate (eGFR) is calculated using the 2020 CKD-EPI creatinine equation. This equation utilizes serum creatinine, sex, and age as parameters. The creatinine assay has traceable calibration to isotope dilution-mass spectrometry. Refer to KDIGO guidelines for clinical interpretation. In patients with unstable renal function, e.g. those with acute kidney injury, the eGFR may not accurately reflect actual GFR. Performed By: #### 2 4323-8 ####[facility] LABCLIA [id number] [place] [address] [place] Glucose [Mass/Vol] 435 mg/dL High 74-99 [facility] Comment on above: Order Comment: Speci men Type: BLOOD SPECIMENOrdering Facility: [facility] Address: [address] [place] [address] Result Comment: The Citizen [place] Diabetes Association (ADA) provides guidance for cutoff values for fasting glucose and random glucose. The ADA defines fasting as no caloric intake for at least 8 hours. Fasting plasma glucose results between 100 to 125 mg/dL indicate increased risk for diabetes (prediabetes). Fasting plasma glucose results greater than or equal to 126 mg/dL meet the criteria for diagnosis of diabetes. In the absence of unequivocal hyperglycemia, results should be confirmed by repeat testing. In a patient with classic symptoms of hyperglycemia or hyperglycemic crisis, random plasma glucose results greater than or equal to 200 mg/dL meet the criteria for diagnosis of diabetes. Reference: Standards of Medical Care in Diabetes 2016, [place] Diabetes Association. Diabetes Care. 2016.39(Suppl 1). Performed By: #### 2 4323-8 ####[facility]CL[facility] [id number] [place] [address] [place] Potassium [Moles/Vol] Normal [facility] Comment on above: Order Comment: Speci men Type: BLOOD SPECIMENOrdering Facility: [facility] Address: [address] [place] [address] Result Comment: Unab le to assay due to interference from hemolysis. Suggest reorder as clinically indicated. Performed By: #### 2 4323-8 ####[facility]CLIA [id number] [place] [address] [place] Protein [Mass/Vol] 6.7 g/dL Normal 6.3-8.0 [facility] Comment on above: Order Comment: Speci men Type: BLOOD SPECIMENOrdering Facility: [facility] Address: [address] [place] [address] Result Comment: Resu lts may be falsely increased due to interference from hemolysis. Suggest reorder as clinically indicated. Performed By: #### 2 4323-8 ####[facility] LABIA [id number] [place] [address] [place] Sodium [Moles/Vol] 131 mmol/L Low 136-144 [facility] Comment on above: Order Comment: Speci men Type: BLOOD SPECIMENOrdering Facility: [facility] Address: [address] [place] [address] Performed By: #### 2 4323-8 ####[facility] LABIA [id number] [place] [address] [place] Urea nitrogen [Mass/Vol] 16 mg/dL Normal 7-21 [facility] Comment on above: Order Comment: Speci men Type: BLOOD SPECIMENOrdering Facility: [facility] Address: [address] [place] [address] Performed By: #### 2 4323-8 ####[facility] LABIA [id number] [place] [address] [place] ECG COMPLETEon 03-25-2023 ECG COMPLETE Ventricular Rate : 8 9 BPM Atrial Rate : 89 BPM P-R Interval : 146 ms QRS Duration : 72 ms Q-T Interval : 370 ms QTC Calculation(Bazett) : 450 ms Calculated P [place] : 21 degrees Calculated R [place] : -6 degrees Calculated T [place] : 3 degrees NORMAL SINUS RHYTHM . BORDERLINE ECG Confirmed by DO CHRISTINE BRUCE ([id number]), editorial assistant YONY CHRIS ([id number]) on 03/27/2023 9:35:29 AM NAME : LUCILA TINEO PID : [id number] : 1950 Gender : Female Race : ORD : [id number] Procedure Date : Mar 25 2023 11:38:10 Edit Date : Mar 27 2023 09:35:30 Diagnosis: NORMAL SINUS RHYTHM . BORDERLINE ECG Confirmed by DO CHRISTINE BRUCE ([id number]), editorial assistant YONY CHRIS ([id number]) on 03/27/2023 9:35:29 AM Test Reason : Chest Pain Location : 2 : EDNS E018 Overread By : DO CHRISTINE BRUCE Edited By : YONY CHRIS Referred By : , Acquired by : Nicky MATHEWS [facility] ED NOTEon 03-25-2023 ED NOTE HNO ID: [id number] Author: SEPIDEH DE DIOS Medic Service: Emergency Medicine Author Type: Cloth Framer and Weigher Alloy Type: ED Notes Filed: 03/25/2023 16:57 Note Text: 3rd trop sent via straight stick in left hand [facility] ED NOTE HNO ID: [id number] Author: ESTHELA RAMAN RN Service: ? Author Type: Registered Nurse Type: ED Notes Filed: 03/25/2023 11:23 Note Text: Bed: E18-11 Expected date: Expected time: Means of arrival: Comments: HUGO Saunders [facility] ED PROV NOTEon 03-25-2023 ED PROV NOTE HNO ID: [id number] Author: EDWARD CHRISTINE DO Service: Emergency Medicine Author Type: Physician Type: ED Provider Notes Filed: 03/25/2023 17:44 Note Text: ED Provider Note Patient Name: Lucila Tineo : 1950 SERVICE DATE: 03/25/23 History HPI Patient presenting to the emergency department for evaluation of chest pain that occurred while she was at an outpatient vascular appointment where she was being followed for a known thoracoabdominal aortic aneurysm. The patient is accompanied by her daughter who provides much of the history, she reports that the patient was getting her vitals taken and then began experiencing left-sided chest pain, the patient clutched her chest, pain lasted about 15 minutes, there was no associated shortness of breath, diaphoresis, nausea or vomiting. Pt is non ambulatory so this did not follow any exertion. The patient reports that the pain did go to her right shoulder. It did not go into her back. Per daughter the vascular surgeon reviewed CT images of the aorta that were obtained today and said that there was no evidence of dissection. The patient is now pain-free. Per the daughter, the patient had a cardiac catheterization done a few years ago at an outside hospital that did show coronary artery disease that was not amendable to PCI. Pt is on eliquis and did reportedly fall 1 week ago hitting her head. PAST MEDICAL HISTORY Diagnosis Date Current smoker Diabetes mellitus (HCC) Diabetes mellitus w/irratic blood glucose(s) SHIRA (renal artery stenosis) ([facility]) 2 arteries partially occluded Thoracoabdominal aortic aneurysm (TAAA) ([facility]) PAST SURGICAL HISTORY Procedure Laterality Date APPENDECTOMY HYSTERECTOMY FAMILY HISTORY Problem Relation Age of Onset other (TAAA) Son 5.2cm Social History Tobacco Use Smoking status: Every Day Packs/day: 0.75 Years: 62.00 Additional pack years: 0.00 Total pack years: 46.50 Types: Cigarettes Smokeless tobacco: Never Substance and Sexual Activity Alcohol use: Not on file Drug use: Not on file Sexual activity: Not on file ALLERGIES Allergen Reactions Penicillins Hives Review of Systems Respiratory: Negative for shortness of breath. Cardiovascular: Negative for palpitations. Gastrointestinal: Negative for abdominal pain, nausea and vomiting. Musculoskeletal: Negative for back pain. Neurological: Chronic R sided vision loss from prior stroke Physical Exam Vitals [03/25/23 1146] BP Pulse Temp Temp src Resp SpO2 Weight Height 146/74 87 36.8 ?C (98.2 ?F) -- 22 99 % -- -- Physical Exam Vitals and nursing note reviewed. Constitutional: General: She is not in acute distress. Appearance: She is not ill-appearing. HENT: Head: Normocephalic and atraumatic. Mouth/Throat: Mouth: Mucous membranes are moist. Eyes: Pupils: Pupils are equal. Cardiovascular: Rate and Rhythm: Normal rate and regular rhythm. Pulses: Normal pulses. Heart sounds: Normal heart sounds. Comments: Mild b/l edema to both lower extremities Pulmonary: Effort: Pulmonary effort is normal. No tachypnea or accessory muscle usage. Chest: Chest wall: No tenderness. Musculoskeletal: Cervical back: Neck supple. Diagnostic Testing ED Labs Ordered and Reviewed COMP METABOLIC PANEL - Abnormal; Notable for the following components: Result Value Ref Range Albumin 3.5 (*) 3.9 - 4.9 g/dL AST 49 (*) 13 - 35 U/L Glucose 435 (*) 74 - 99 mg/dL Sodium 131 (*) 136 - 144 mmol/L CO2 19 (*) 22 - 30 mmol/L All other components within normal limits CBC - Normal HIGH SENSITIVITY TROPONIN T (INITIAL) HIGH SENSITIVITY TROPONIN T POTASSIUM - ED (POC) Procedures ED Course / Clinical Impression ED Course as of 03/25/23 1736 Edward Christine (Soham)'s Documentation ThuMar 25, 2023 1205 EKG STAT Normal sinus rhythm, rate 89, normal intervals, no STEMI 1313 Glucose(!): 435 Elevated glucose, did not take morning dose of insulin. Given 10units as per her home sliding scale and IVF Clinical Impressions as of 03/25/23 1736 Chest pain, unspecified type Coronary artery disease involving creek coronary artery of creek heart without angina pectoris Uncontrolled type 2 diabetes mellitus with hyperglycemia (HCC) MDM / Disposition / Plan Patient presented to the emergency department for evaluation of symptoms as per HPI. Initiated to evaluate for etiology of chest pain, troponins were negative, EKG with no ischemic changes, making cardiac etiology unlikely. Low suspicion for pulmonary embolism based on the description of symptoms. Did consider aortic dissection, however had a CTA done earlier in the day and this was negative for any acute dissection or significant change in the aorta. Chest x-ray also showed no acute process to explain symptoms. Unclear etiology of the patient's chest pain at this time, however she remained asymptomatic in the emergency depar (more content not included)... Normal [facility] HIGH SENSITIVITY TROPONIN T (INITIAL)on 03-25-2023 Troponin T.cardiac High sensitivity method [Mass/Vol] 18 ng/L High <12 [facility] Comment on above: Order Comment: Speci men Type: BLOOD SPECIMENOrdering Facility: [facility] Address: [address], [place] [address] Result Comment: When assessing risk for acute coronary syndromes: In patients undergoing blood draw greater than or equal to 2 hours from symptom onset, with history of very low to moderate risk and non-ischemic ECG, an initial hs-Troponin T less than 12 ng/L AND a 1 hour delta hs-Troponin T less than 3 ng/L should be considered very low risk for 30 day MACE. Performed By: #### L [id number] ####[facility] LABCLIA [id number] [address] HIGH SENSITIVITY TROPONIN T (SECOND)on 03-25-2023 Troponin T.cardiac High sensitivity method [Mass/Vol] 17 ng/L High <12 [facility] Comment on above: Order Comment: Letty sanchez Type: BLOOD SPECIMENOrdering Facility: [facility] Address: [address] [place] [address] Result Comment: When assessing risk for acute coronary syndromes: In patients undergoing blood draw greater than or equal to 2 hours from symptom onset, with history of very low to moderate risk and non-ischemic ECG, an initial hs-Troponin T less than 12 ng/L AND a 1 hour delta hs-Troponin T less than 3 ng/L should be considered very low risk for 30 day MACE. Performed By: #### L [id number] ####[facility] LABCLIA [id number] [address] HIGH SENSITIVITY TROPONIN T (THIRD) 3 HRS AFTER INITIALon 03-25-2023 Troponin T.cardiac High sensitivity method [Mass/Vol] 18 ng/L High <12 [facility] Comment on above: Order Comment: Letty sanchez Type: BLOOD SPECIMENOrdering Facility: [facility] Address: [address] [place] [address] Result Comment: When assessing risk for acute coronary syndromes: In patients undergoing blood draw greater than or equal to 2 hours from symptom onset, with history of very low to moderate risk and non-ischemic ECG, an initial hs-Troponin T less than 12 ng/L AND a 1 hour delta hs-Troponin T less than 3 ng/L should be considered very low risk for 30 day MACE. Performed By: #### L [id number] ####[facility] LABCLIA [id number] [address] [place] [facility] XR CHEST 2V FRONTAL/LATon XR CHEST 2V FRONTAL/LAT * * *Final Report* * * DATE OF EXAM: Mar 25 2023 12:44PM EGX [id number] - XR CHEST 2V FRONTAL/LAT / PROCEDURE REASON: Chest Pain * * * * Physician Interpretation * * * * EXAMINATION: CHEST RADIOGRAPH (2 VIEW FRONTAL and LATERAL) CLINICAL HISTORY: Chest Pain MQ: [id number]_6 EXAM DATE/TIME: 03/25/2023 12:44 PM COMPARISON: CT chest 09/20/2020 RESULT: Lines, tubes, and devices: None. Lungs and pleura: There is a 1.6 cm right upper lobe nodule , new since 09/20/20 most concerning for neoplasm. There is pulmonary emphysema. Cardiomediastinal silhouette: Similar cardiomediastinal silhouette. Ectatic thoracic aorta. Bones and soft tissues: Degenerative change of the thoracic spine. IMPRESSION: 1.6 cm right upper lobe nodule , new since 09/20/20 most concerning for neoplasm Emphysema Nail Puller: МАРИНА Transcribe Date/Time: Mar 25 2023 12:49P Dictated by : KHLOE GAYLE MD This examination was interpreted and the report reviewed and electronically signed by: KHLOE GAYLE MD on Mar 25 2023 1:04PM EST [id number] Normal [facility] CNPN Telephone (PODCCP) LUCILA TINEO ([id number]) 1950 F Date Time Provider Department 03/13/23 DARRYL SAUER PODCCP During your visit today, we recorded the following information about you: Darryl Sauer, RN 03/13/2023 3:39 PM Signed Reason for call: Mila called and she would like to schedule an appointment for Lucila with Dr Hawk. Looking for a Thursday apt. Contact Name: Mila Kramer Home and cell number: [phone] Diagnosis: TAAA. Rapid new growth Kind RegardsDarryl Allergies As of Date: 03/13/2023 Noted Allergy Reaction PENICILLINS 10/11/2018 4 - Hives Date Reviewed: 09/20/2020 Reviewed by: Sepideh Mustafa LPN - Fully Assessed Reason for Visit: Appointment [186] Prescriptions as of 03/13/2023 - atorvastatin (LIPITOR) 40 mg tablet Take [...] guidelines link. Problem List As Of Date: 03/13/2023 (None) Encounter Status:Closed by DARRYL SAUER on 03/13/23 [facility] Fernando [facility] LUCILA TINEO ([id number]) 1950 F Date Time Provider Department 01/02/23 JAH SHARPE [facility] During your visit today, we recorded the following information about you: Lane Vogt RN 01/02/2023 1:34 PM Signed Voice mail left for daughter to discuss plan of care for follow up of cerebral aneurysm as discussed with Dr Sharpe at appointment. Imaging in 6 months versus cerebral angiogram. Requested daughter to either call this office or send a My Chart message with preference Elisa Lees 01/07/2023 12:30 PM Signed Daughter, Mila Kramer returned call - please call [phone]. Lane Vogt, SHREYA 01/07/2023 12:43 PM Signed Attempted to return call, voice mail left for daughter with office number to return call to this office at her convenience. Jenny Moreno 01/07/2023 2:14 PM Signed Please call daughter back at [phone]. Until 4pm. 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 no, who is the referring provider : Osei Roe [employer] in [facility], [place]/His direct office number if any questions: [phone] Is this a direct referral? yes neurosurgeon Have you been recommended for surgery or procedure? Yes. coiling Are you seeking a second opinion? Yes. Do you have a MRI/MRA/CT/Ultrasound for this diagnosis? Yes. Type of imaging CT's, name/address of facility where completed [facility]. [Only has reports in folder, no images] [...] 2:22 PM Addendum OSH imaging/records received from [facility]: December 04, [address] Roe Progress Notes scanned to chart. PENDING: -2022 Imaging -Medical Hx AND Imaging Reports Walked discs over to imaging library + gave to Adry to upload MAGDALENE. Successfully sent CARRI AND [employer] overnight label via [employer]~ Tracking#[id number] December 05, 2022 10:30 AM 07 [employer] Priority Overnight? $14.14 From: Theresa Andre Last change on 12/04/2022 12:16:46 pm Sent on 12/04/2022 12:16:33 pm Completed Tonja Andre 12/09/2022 2:25 PM Addendum OSH imaging/records received from [facility]: December 08, [address] Roe Progress Notes scanned to chart. -Medical Hx [...] 100 unit (more content not included)... Normal [facility] SCREENING MAMMOGRAM W/SAULO, BILATERAL*on 04-24-2022 SCREENING MAMMOGRAM [...] VERY IMPORTANT TO YOUR HEALTH. THE CURRENT [place] [employer] OF [employer] AND [employer] COMPREHENSIVE CANC[employer] NETWORK GUIDELINES RECOMMENDS ANNUAL MAMMOGRAPHY BEGINNING AT AGE 40 THIS FACILITY USES A REMINDER SYSTEM TO ENSURE ALL PATIENTS RECEIVE REMINDER NOTIFICATIONS AT THE APPROPRIATE TIME BASED ON THE RECOMMENDATIONS OF THIS EXAM. Report reported and signed by Silviano Roth on 04/25/2022 0759 Normal [facility] Data Integrity Specialist Office Visit (Cardiology)on 12-11-2021 Follow-up visit Diagnoses/Problems [...] Aminotransferase, Serum; Status:Active - Retrospective Authorization; Requested for:[id number]; AST; Status:Active - Retrospective Authorization; Requested for:11Dec2021; Lipid Panel; Status:Active - Retrospective Authorization; Requested for:[id number]; CAD (coronary artery disease), HLD (hyperlipidemia), Hypertension Basic Metabolic Panel; Status:Active - Retrospective Authorization; Requested for:11Dec2021; Overweight with body mass index (BMI) of 27 to 27.9 in adult Healthy Weight Tips; Status:Complete - Retrospective Authorization; Done: [id number] Some eating tips that can help you [...] we can help. You may also call 9-069-WARBNOW for free resources and assistance.; Status:Complete - [...] Recorded: 11Dec2021 11:20AM Heart Rate76, L Radial Xcrwtodo118, LUE, Sitting Izhubpcdl41, LUE, Sitting Height5 ft 4 in Zzfofq333 lb BMI Wnbyrztoqh56.98 kg/m2 BSA Calculated1.79 Tobacco Usea) Yes Patient encouraged to stop using tobacco productsYes PHQ-2 #1. Over the last 2 weeks have you felt down, depressed or hopeless? (If yes, answer PHQ-9 below)No PHQ-2 #2. Over the last 2 weeks have you felt little interest or pleasure in doing things? (If yes, answer PHQ-9 below)No Fa (more content not included)... Normal [facility] Tobacco Screening.on 022 Adult depression screening assessment No [facility] [employer] 250 DO Work Phone: Fall risk assessment b) One or more fall s in the last year [facility] [employer] 250 DO Work Phone: Tobacco use status [facility] a) Yes [facility] [employer] 250 DO Work Phone: Tobacco Screening. Yes [facility] Correa DO Work Phone: XR Spine Lumbar Complete w/F tyrone AND [place] 11-18-2021 XR Spine Lumbar Complete w/Flex AND [...] by Silviano Roth on 11/18/2021 1519 Normal [facility] Data Integrity Specialist US Venous, Bilateral, Lower [place] 10-02-2021 US Venous, Bilateral, Lower Ext FINDINGS: [...] by Silviano Roth on 10/03/2021 0652 Normal [facility] Data Integrity Specialist Office Visit (Cardiology)on 02-05-2021 Follow-up visit Diagnoses/Problems Assessed Hypertension (401.9) (I10) Remains suboptimal CAD (coronary artery disease) (414.00) (I25.10) July 2020 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 Fully [...] smoker (305.1) (more content not included)... Normal [facility] Tobacco Screening.on Fall risk assessment a) No falls within the last year [facility] 250 DO Work Phone: Tobacco use status [facility] a) Yes [facility] 250 DO Work Phone: Tobacco Screening. Yes [facility] 250 DO Work Phone: Tobacco Screening.on Fall risk assessment a) No falls within the last year [facility] 600 DO Work Phone: Tobacco use status [facility] a) Yes -[facility] 600 DO Work Phone: Tobacco Screening. Yes -[facility] 600 DO Work Phone: Comprehensive Metabolic Pane dom 08-08-2020 Albumin [Mass/Vol] 3.1 g/dL Low 3.2-5.5 [facility] Comment on above: Performed By: #### C MP #### [address] Albumin/Globulin [Mass ratio] 0.9 {ratio} Normal [facility] Comment on above: Performed By: #### C MP #### [address] ALP [Catalytic activity/Vol] 98 U/L High 32-92 [facility] Comment on above: Performed By: #### C MP #### [facility] [address] [place] [address] ALT [Catalytic activity/Vol] 17 U/L Normal 10-60 [facility] Comment on above: Performed By: #### C MP #### [address] AST [Catalytic activity/Vol] 24 U/L Normal 10-42 [facility] Comment on above: Performed By: #### C MP #### [facility] [address] [place] [address] [place] Bilirubin [Mass/Vol] 0.6 mg/dL Normal 0.3-1.2 [facility] Comment on above: Performed By: #### C MP #### [facility] [address] [place] [address] [place] Calcium [Mass/Vol] 8.8 mg/dL Normal 8.2-10.2 [facility] Comment on above: Performed By: #### C MP #### [place] [address] [place] Chloride [Moles/Vol] 103 mmol/L Normal 95-114 [facility] Comment on above: Performed By: #### C MP #### [facility] [address] CO2 [Moles/Vol] 20.4 mmol/L Low 22.0-30.0 [facility] Comment on above: Performed By: #### C MP #### [facility] [address] Creatinine [Mass/Vol] 1.06 mg/dL High 0.44-1.03 [facility] Comment on above: Performed By: #### C MP #### [facility] [address] Creatinine Clr Calc Pharmacy 49.44 [facility] Comment on above: Result Comment: PERF ORMED BY: [place] [address] PATHOLOGIST PIANO PLAYER DOMINGA SOILMAN M.D. Performed By: #### C MP #### [address] Estimated GFR ( Grace > 60 [facility] Comment on above: Result Comment: GFR estimated reference range: According to KDOQI guidelines, <60 ml/min/1.73m2 is sufficient to diagnose a patient with chronic kidney disease. Performed By: #### C MP #### [address] Estimated GFR (Non- Am 51 [facility] Comment on above: Performed By: #### C MP #### [address] Globulin (S) [Mass/Vol] 3.3 g/dL [facility] Comment on above: Performed By: #### C MP #### [address] Glucose [Mass/Vol] 282 mg/dL High 70-100 [facility] Comment on above: Result Comment: [place] Glucose Reference Range is dependent on time and content of last meal. Glucose of more than 200 mg/dL in a nonstressed, ambulatory subject supports the diagnosis of Diabetes Mellitus. ADA recommended reference range Performed By: #### C MP #### [facility] [address] Potassium [Moles/Vol] 4.5 mmol/L Normal 3.5-5.1 [facility] Comment on above: Performed By: #### C MP #### [facility] [address] [place] [id number] [facility] Protein [Mass/Vol] 6.4 g/dL Normal 6.1-7.9 [facility] Comment on above: Performed By: #### C MP #### [facility] [address] Sodium [Moles/Vol] 134 mmol/L Low 136-146 [facility] Comment on above: Performed By: #### C MP #### [facility] [address] Urea nitrogen [Mass/Vol] 29 mg/dL High 9-23 [facility] Comment on above: Performed By: #### C MP #### [facility] [address] ECG 12 lead ECGon 08-08-2020 ECG 12 lead ECG [facility] Main [place] [address] [place] [address] Electrocardiograph Report Signed Patient: Lucila Tineo MR#: [id number] : 1950 Acct:[id number] Age/Sex: 70 / F ADM Date: 08/06/20 Loc: Room: [address] [place] [address] Type: ADM IN Attending Dr: Drew Patterson [...] MD 08/08/20 0734 Signed By: 08/08/20 1017 [facility] Glucose Poct Glucometerson 0 08-08-2020 Commemt1 Glu2: Cleaned Meter [facility] Comment on above: Result Comment: PERF ORMED BY: [place] [address] PATHOLOGIST [employer]O PLAYER DOMINGA SOLIMAN M.D. Performed By: #### P T, CBC, PTT #### [place] [address] [place] Glucose [Mass/Vol] 354 mg/dL Normal [facility] Comment on above: Result Comment: [place] om Glucose Reference Range is dependent on time and content of last meal. Glucose of more than 200 mg/dL in a nonstressed, ambulatory subject supports the diagnosis of Diabetes Mellitus. Performed By: #### P T, CBC, PTT #### [place] [address] [place] Commemt1 Glu2: Cleaned Meter [facility] Comment on above: Result Comment: PERF ORMED BY: [place] [address] PATHOLOGIST PI[employer]O PLAYER DOMINGA SOLIMAN M.D. Performed By: #### P T, CBC, PTT #### [place] [id number] [place] Glucose [Mass/Vol] 380 mg/dL Normal [facility] Comment on above: Result Comment: [place] om Glucose Reference Range is dependent on time and content of last meal. Glucose of more than 200 mg/dL in a nonstressed, ambulatory subject supports the diagnosis of Diabetes Mellitus. Performed By: #### P T, CBC, PTT #### [place] [id number] [place] Glucose [Mass/Vol] 80 mg/dL [facility] Comment on above: Result Comment: [facility] Glucose Reference Range is dependent on time and content of last meal. Glucose of more than 200 mg/dL in a nonstressed, ambulatory subject supports the diagnosis of Diabetes Mellitus. PERFORMED BY: [address] [place] [address] PATHOLOGIST PIANO PLAYER DOMINGA SOLIMAN M.D. Performed By: #### P T, CBC, PTT #### [address] Commemt1 [facility] Comment on above: Result Comment: Glu2 : FOLLOW HYPOGLYCEMIC Performed By: #### P T, CBC, PTT #### [address] Commemt2 Cleaned Meter [facility] Comment on above: Performed By: #### P T, CBC, PTT #### [address] Commemt3 WILL NOTIFY DR/RN [facility] Comment on above: Result Comment: PERF ORMED BY: [place] [address] PATHOLOGIST PIANO PLAYER DOMINGA SOLIMAN M.D. Performed By: #### P T, CBC, PTT #### [address] Glucose [Mass/Vol] 42 mg/dL Off scale low [facility] Comment on above: Result Comment: [facility] Glucose Reference Range is dependent on time and content of last meal. Glucose of more than 200 mg/dL in a nonstressed, ambulatory subject supports the diagnosis of Diabetes Mellitus. Performed By: #### P T, CBC, PTT #### [facility] [address] [place] [address] Troponin I(TnI)on 08-08-2020 Troponin I.cardiac [Mass/Vol] 2.45 ng/mL Off scale high 0-0.02 [facility] Comment on above: Result Comment: KRISTI [place] Cut off value > or equal to 0.03 ng/mL in conjunction with clinical conditions of myocardial infarction. (www.escardio.org/guidelines) PERFORMED BY: [address] [address] PATHOLOGIST PIANO PLAYER DOMINGA SOLIMAN M.D. Performed By: #### T ROP #### [place] [address] [place] A1C with Estimated Average [facility] 08-07-2020 Glucose [Mass/Vol] 183 mg/dL Normal [facility] Comment on above: Result Comment: PERF ORMED BY: [address] [place] [address] PATHOLOGIST PIANO PLAYER DOMINGA SOLIMAN M.D. Performed By: #### G LULS #### Point of Care testing , HbA1c (Bld) [Mass fraction] 8.0 % High 4.3-5.6 [facility] Comment on above: Result Comment: Incr eased risk for diabetes: 5.7 - 6.4 diabetes: >6.4 glycemic control for adults with diabetes: <7.0 Performed By: #### G LULS #### Point of Care testing , Complete Blood Count Auto Di ffon 08-07-2020 Basophils (Bld) [#/Vol] 0.1 10*3/uL Normal 0.0-0.2 [facility] Comment on above: Result Comment: PERF ORMED BY: [address] [place] [address] PATHOLOGIST PIANO PLAYER DOMINGA SOLIMAN M.D. Performed By: #### G LULS #### Point of Care testing , Basophils/100 WBC (Bld) 1.4 % Normal . [facility] Comment on above: Performed By: #### G LULS #### Point of Care testing , Eosinophils (Bld) [#/Vol] 0.1 10*3/uL Normal 0.0-0.45 [facility] Comment on above: Performed By: #### G LULS #### Point of Care testing , Eosinophils/100 WBC (Bld) 2.6 % Normal . [facility] Comment on above: Performed By: #### G SHANEKA #### Point of Care testing , Erythrocyte distribution width (RBC) [Ratio] 15.6 % High 11.9-15.3 [facility] Comment on above: Performed By: #### G ARVINDLS #### Point of Care testing , Hematocrit (Bld) [Volume fraction] 39.8 % Normal 34.0-46.4 [facility] Comment on above: Performed By: #### G ARVINDLS #### Point of Care testing , Hemoglobin (Bld) [Mass/Vol] 13.8 g/dL Normal 11.8-15.4 [facility] Comment on above: Performed By: #### G SHANEKA #### Point of Care testing , Lymphocytes (Bld) [#/Vol] 1.5 10*3/uL Normal 1.00-4.8 [facility] Comment on above: Performed By: #### G SHANEKA #### Point of Care testing , Lymphocytes/100 WBC (Bld) 26.4 % Normal . [facility] Comment on above: Performed By: #### G SHANEKA #### Point of Care testing , MCH (RBC) [Entitic mass] 30.9 pg Normal 24.7-34.3 [facility] Comment on above: Performed By: #### [place] SAMUELSLS #### Point of Care testing , MCV (RBC) [Entitic vol] 89.0 fL Normal 80-100 [facility] Comment on above: Performed By: #### [place] SAMUELSLS #### Point of Care testing , Mean Corpuscular HGB Conc 34.8 g/dL Normal 32.0-35.0 [facility] Comment on above: Performed By: #### G SHANEKA #### Point of Care testing , Monocytes (Bld) [#/Vol] 0.4 10*3/uL Normal 0.0-0.8 [facility] Comment on above: Performed By: #### G SHANEKA #### Point of Care testing , Monocytes/100 WBC (Bld) 7.0 % Normal . [facility] Comment on above: Performed By: #### [place] MUNROE #### Point of Care testing , Neutrophils (Bld) [#/Vol] 3.6 10*3/uL Normal 1.8-7.7 [facility] Comment on above: Performed By: #### G SHANEKA #### Point of Care testing , Neutrophils/100 WBC (Bld) 62.6 % Normal . [facility] Comment on above: Performed By: #### G SHANEKA #### Point of Care testing , Nucleated RBC/100 WBC (Bld) [Ratio] 0.4 % Normal 0-0.5 [facility] Comment on above: Performed By: #### G SHANEKA #### Point of Care testing , Platelet mean volume (Bld) [Entitic vol] 9.1 fL Normal 6.3-10.7 [facility] Comment on above: Performed By: #### G SHANEKA #### Point of Care testing , Platelets (Bld) [#/Vol] 201 10*3/uL Normal 150-450 [facility] Comment on above: Performed By: #### G SHANEKA #### Point of Care testing , RBC (Bld) [#/Vol] 4.47 10*6/uL Normal 3.60-5.00 [facility] Comment on above: Performed By: #### G SHANEKA #### Point of Care testing , WBC (Bld) [#/Vol] 5.7 10*3/uL Normal 4.5-11.0 [facility] Comment on above: Performed By: #### G SHANEKA #### Point of Care testing , Basophils (Bld) [#/Vol] 0.1 10*3/uL Normal 0.0-0.2 [facility] Comment on above: Result Comment: PERF ORMED BY: [place] [address] PATHOLOGIST PIANO PLAYER DOMINGA SOLIMAN M.D. Performed By: #### P T, CBC, PTT #### [facility] [address] Basophils/100 WBC (Bld) 0.7 % Normal . [facility] Comment on above: Performed By: #### P T, CBC, PTT #### [facility] [address] Eosinophils (Bld) [#/Vol] 0.1 10*3/uL Normal 0.0-0.45 [facility] Comment on above: Performed By: #### P T, CBC, PTT #### [address] Eosinophils/100 WBC (Bld) 1.5 % Normal . [facility] Comment on above: Performed By: #### P T, CBC, PTT #### [address] Erythrocyte distribution width (RBC) [Ratio] 15.4 % High 11.9-15.3 [facility] Comment on above: Performed By: #### P T, CBC, PTT #### [address] Hematocrit (Bld) [Volume fraction] 41.4 % Normal 34.0-46.4 [facility] Comment on above: Performed By: #### P T, CBC, PTT #### [address] Hemoglobin (Bld) [Mass/Vol] 14.0 g/dL Normal 11.8-15.4 [facility] Comment on above: Performed By: #### P T, CBC, PTT #### [address] Lymphocytes (Bld) [#/Vol] 2.0 10*3/uL Normal 1.00-4.8 [facility] Comment on above: Performed By: #### P T, CBC, PTT #### [place] [address] [place] Lymphocytes/100 WBC (Bld) 30.1 % Normal . [facility] Comment on above: Performed By: #### P T, CBC, PTT #### [address] MCH (RBC) [Entitic mass] 30.4 pg Normal 24.7-34.3 [facility] Comment on above: Performed By: #### P T, CBC, PTT #### [facility] [address] MCV (RBC) [Entitic vol] 89.6 fL Normal 80-100 [facility] Comment on above: Performed By: #### P T, CBC, PTT #### [facility] [address] Mean Corpuscular HGB Conc 33.9 g/dL Normal 32.0-35.0 [facility] Comment on above: Performed By: #### P T, CBC, PTT #### [facility] [address] Monocytes (Bld) [#/Vol] 0.4 10*3/uL Normal 0.0-0.8 [facility] Comment on above: Performed By: #### P T, CBC, PTT #### [facility] [address] Monocytes/100 WBC (Bld) 6.4 % Normal . [facility] Comment on above: Performed By: #### P T, CBC, PTT #### [facility] [address] Neutrophils (Bld) [#/Vol] 4.2 10*3/uL Normal 1.8-7.7 [facility] Comment on above: Performed By: #### P T, CBC, PTT #### [facility] [address] Neutrophils/100 WBC (Bld) 61.3 % Normal . [facility] Comment on above: Performed By: #### P T, CBC, PTT #### [facility] [address] Nucleated RBC/100 WBC (Bld) [Ratio] 0.1 % Normal 0-0.5 [facility] Comment on above: Performed By: #### P T, CBC, PTT #### [facility] [address] Platelet mean volume (Bld) [Entitic vol] 8.9 fL Normal 6.3-10.7 [facility] Comment on above: Performed By: #### P T, CBC, PTT #### [facility] [address] Platelets (Bld) [#/Vol] 197 10*3/uL Normal 150-450 [facility] Comment on above: Performed By: #### P T, CBC, PTT #### [facility] [address] RBC (Bld) [#/Vol] 4.62 10*6/uL Normal 3.60-5.00 [facility] Comment on above: Performed By: #### P T, CBC, PTT #### [facility] [address] WBC (Bld) [#/Vol] 6.8 10*3/uL Normal 4.5-11.0 [facility] Comment on above: Performed By: #### P T, CBC, PTT #### [facility] [address] [place] [address] Comprehensive Metabolic Pane dom 08-07-2020 Albumin [Mass/Vol] 3.4 g/dL Normal 3.2-5.5 [facility] Comment on above: Performed By: #### G ARVINDLS #### Point of Care testing , Albumin/Globulin [Mass ratio] 1.0 {ratio} Normal [facility] Comment on above: Performed By: #### G SHANEKA #### Point of Care testing , ALP [Catalytic activity/Vol] 107 U/L High 32-92 [facility] Comment on above: Performed By: #### G LULS #### Point of Care testing , ALT [Catalytic activity/Vol] 17 U/L Normal 10-60 [facility] Comment on above: Performed By: #### G ARVINDLS #### Point of Care testing , AST [Catalytic activity/Vol] 25 U/L Normal 10-42 [facility] Comment on above: Performed By: #### G LULS #### Point of Care testing , Bilirubin [Mass/Vol] 0.9 mg/dL Normal 0.3-1.2 [facility] Comment on above: Performed By: #### G ARVINDLS #### Point of Care testing , Calcium [Mass/Vol] 9.1 mg/dL Normal 8.2-10.2 [facility] Comment on above: Performed By: #### G LULS #### Point of Care testing , Chloride [Moles/Vol] 105 mmol/L Normal 95-114 [facility] Comment on above: Performed By: #### G LULS #### Point of Care testing , CO2 [Moles/Vol] 20.9 mmol/L Low 22.0-30.0 [facility] Comment on above: Performed By: #### G LULS #### Point of Care testing , Creatinine [Mass/Vol] 0.96 mg/dL Normal 0.44-1.03 [facility] Comment on above: Performed By: #### G LULS #### Point of Care testing , Creatinine Clr Calc Pharmacy 54.35 [facility] Comment on above: Performed By: #### G LULS #### Point of Care testing , Estimated GFR ( Grace > 60 [facility] Comment on above: Result Comment: GFR estimated reference range: According to KDOQI guidelines, <60 ml/min/1.73m2 is sufficient to diagnose a patient with chronic kidney disease. Performed By: #### G LULS #### Point of Care testing , Estimated GFR (Non- Am 57 [facility] Comment on above: Performed By: #### G LULS #### Point of Care testing , Globulin (S) [Mass/Vol] 3.5 g/dL [facility] Comment on above: Performed By: #### G LULS #### Point of Care testing , Glucose [Mass/Vol] 391 mg/dL High 70-100 [facility] Comment on above: Result Comment: [place] Glucose Reference Range is dependent on time and content of last meal. Glucose of more than 200 mg/dL in a nonstressed, ambulatory subject supports the diagnosis of Diabetes Mellitus. ADA recommended reference range Performed By: #### G LULS #### Point of Care testing , Potassium [Moles/Vol] 4.4 mmol/L Normal 3.5-5.1 [facility] Comment on above: Performed By: #### [place] MUNROE #### Point of Care testing , Protein [Mass/Vol] 6.9 g/dL Normal 6.1-7.9 [facility] Comment on above: Performed By: #### [place] MUNROE #### Point of Care testing , Sodium [Moles/Vol] 136 mmol/L Normal 136-146 [facility] Comment on above: Performed By: #### [place] MUNROE #### Point of Care testing , Urea nitrogen [Mass/Vol] 19 mg/dL Normal 9-23 [facility] Comment on above: Performed By: #### [place] MUNROE #### Point of Care testing , Albumin [Mass/Vol] 3.4 g/dL Normal 3.2-5.5 [facility] Comment on above: Performed By: #### [place] MUNROE #### Point of Care testing , Albumin/Globulin [Mass ratio] 0.9 {ratio} Normal [facility] Comment on above: Performed By: #### [place] MUNROE #### Point of Care testing , ALP [Catalytic activity/Vol] 100 U/L High 32-92 [facility] Comment on above: Performed By: #### [place] MUNROE #### Point of Care testing , ALT [Catalytic activity/Vol] 17 U/L Normal 10-60 [facility] Comment on above: Performed By: #### [place] MUNROE #### Point of Care testing , AST [Catalytic activity/Vol] 34 U/L Normal 10-42 [facility] Comment on above: Performed By: #### [place] MUNROE #### Point of Care testing , Bilirubin [Mass/Vol] 0.8 mg/dL Normal 0.3-1.2 [facility] Comment on above: Performed By: #### [place] MUNROE #### Point of Care testing , Calcium [Mass/Vol] 9.2 mg/dL Normal 8.2-10.2 [facility] Comment on above: Performed By: #### G LULS #### Point of Care testing , Chloride [Moles/Vol] 104 mmol/L Normal 95-114 [facility] Comment on above: Performed By: #### G LULS #### Point of Care testing , CO2 [Moles/Vol] 20.0 mmol/L Low 22.0-30.0 [facility] Comment on above: Performed By: #### G LULS #### Point of Care testing , Creatinine [Mass/Vol] 0.95 mg/dL Normal 0.44-1.03 [facility] Comment on above: Performed By: #### G LULS #### Point of Care testing , Creatinine Clr Calc Pharmacy 55.10 [facility] Comment on above: Result Comment: PERF ORMED BY: [facility] [address] [place] [address] PATHOLOGIST [employer] DOMINGA SOLIMAN M.D. Performed By: #### G LULS #### Point of Care testing , Estimated GFR ( Grace > 60 [facility] Comment on above: Result Comment: GFR estimated reference range: According to KDOQI guidelines, <60 ml/min/1.73m2 is sufficient to diagnose a patient with chronic kidney disease. Performed By: #### G LULS #### Point of Care testing , Estimated GFR (Non- Am 58 [facility] Comment on above: Performed By: #### G LULS #### Point of Care testing , Globulin (S) [Mass/Vol] 3.6 g/dL [facility] Comment on above: Performed By: #### G LULS #### Point of Care testing , Glucose [Mass/Vol] 271 mg/dL High 70-100 [facility] Comment on above: Result Comment: [place] Glucose Reference Range is dependent on time and content of last meal. Glucose of more than 200 mg/dL in a nonstressed, ambulatory subject supports the diagnosis of Diabetes Mellitus. ADA recommended reference range Performed By: #### G LULS #### Point of Care testing , Potassium [Moles/Vol] 4.0 mmol/L Normal 3.5-5.1 [facility] Comment on above: Performed By: #### G LULS #### Point of Care testing , Protein [Mass/Vol] 7.0 g/dL Normal 6.1-7.9 [facility] Comment on above: Performed By: #### G LULS #### Point of Care testing , Sodium [Moles/Vol] 136 mmol/L Normal 136-146 [facility] Comment on above: Performed By: #### G LULS #### Point of Care testing , Urea nitrogen [Mass/Vol] 15 mg/dL Normal 9-23 [facility] Comment on above: Performed By: #### G LULS #### Point of Care testing , COUNTS INCLUDE 234 BEDS AT THE [facility] echo transthoracicon COUNTS INCLUDE 234 BEDS AT THE [facility] echo transthoracic [facility] [place] [address] [place] [address] Echocardiogram Signed Patient: Lucila Tineo MR#: [id number] : 1950 Acct:[id number] Age/Sex: 70 / F ADM Date: 08/06/20 Loc: Room: [address] [place] [address] Type: ADM IN Attending Dr: Drew Patterson MD Ordering Provider: Bravo Abdi MD Date of Service: 08/06/20 COUNTS INCLUDE 234 BEDS AT THE [facility]/COUNTS INCLUDE 234 BEDS AT THE [facility] echo transthoracic: NSTEMI, wall motion abnormalities Copies to: MD Cory Del Toro MD, [facility] Height: 64 in Weight: 167 lb Performed [...] Transcribed By: DELANO 08/07/201126 Dictated By: Cory Rudd MD, [facility] 08/07/20 0927 Signed By: 08/07/20 1127 [facility] Glucose Poct Glucometerson 0 08-07-2020 Commemt3 Cleaned Meter [facility] Comment on above: Result Comment: PERF ORMED BY: [facility] [address] [place] [address] PATHOLOGIST [employer] DOMINGA SOLIMAN M.D. Performed By: #### G LULS #### Point of Care testing , Glucose [Mass/Vol] 503 mg/dL Off scale [facility] Comment on above: Result Comment: [facility] Glucose Reference Range is dependent on time and content of last meal. Glucose of more than 200 mg/dL in a nonstressed, ambulatory subject supports the diagnosis of Diabetes Mellitus. Performed By: #### G LULS #### Point of Care testing , Commemt1 Glu2: Cleaned Meter [facility] Comment on above: Result Comment: PERF ORMED BY: [place] [address] PATHOLOGIST [employer] DOMINGA SOLIMAN M.D. Performed By: #### G LULS #### Point of Care testing , Glucose [Mass/Vol] 299 mg/dL [facility] Comment on above: Result Comment: [place] om Glucose Reference Range is dependent on time and content of last meal. Glucose of more than 200 mg/dL in a nonstressed, ambulatory subject supports the diagnosis of Diabetes Mellitus. Performed By: #### G LULS #### Point of Care testing , Commemt1 [facility] Comment on above: Result Comment: Glu2 : Will Repeat Test Performed By: #### G LULS #### Point of Care testing , Result Comment: Glu2 : WILL NOTIFY DR/RN Commemt2 Cleaned Meter [facility] Comment on above: Result Comment: PERF ORMED BY: [place] [address] PATHOLOGIST [employer] DOMINGA SOLIMAN M.D. Performed By: #### G LULS #### Point of Care testing , Glucose [Mass/Vol] 429 mg/dL Off scale [facility] Comment on above: Result Comment: [place] om Glucose Reference Range is dependent on time and content of last meal. Glucose of more than 200 mg/dL in a nonstressed, ambulatory subject supports the diagnosis of Diabetes Mellitus. Performed By: #### G LULS #### Point of Care testing , Commemt1 Glu2: Cleaned Meter [facility] Comment on above: Performed By: #### P T, CBC, PTT #### [facility] [address] [place] [address] [place] Commemt2 WILL NOTIFY DR/RN [facility] Comment on above: Performed By: #### G LULS #### Point of Care testing , Performed By: #### P T, CBC, PTT #### [facility] [address] [place] [address] Commemt3 Will Repeat Test Normal [facility] Comment on above: Result Comment: PERF ORMED BY: [place] [address] PATHOLOGIST [employer] DOMINGA SOLIMAN M.D. Performed By: #### P T, CBC, PTT #### [address] Glucose [Mass/Vol] 429 mg/dL Off scale high [facility] Comment on above: Result Comment: [place] om Glucose Reference Range is dependent on time and content of last meal. Glucose of more than 200 mg/dL in a nonstressed, ambulatory subject supports the diagnosis of Diabetes Mellitus. Performed By: #### P T, CBC, PTT #### [address] Commemt1 Glu2: Cleaned Meter Normal [facility] Comment on above: Result Comment: PERF ORMED BY: [place] [address] PATHOLOGIST [employer] DOMINGA SOLIMAN M.D. Performed By: #### G LULS #### Point of Care testing , Glucose [Mass/Vol] 373 mg/dL Normal [facility] Comment on above: Result Comment: [place] om Glucose Reference Range is dependent on time and content of last meal. Glucose of more than 200 mg/dL in a nonstressed, ambulatory subject supports the diagnosis of Diabetes Mellitus. Performed By: #### G LULS #### Point of Care testing , Glucose [Mass/Vol] 261 mg/dL Normal [facility] Comment on above: Result Comment: [place] om Glucose Reference Range is dependent on time and content of last meal. Glucose of more than 200 mg/dL in a nonstressed, ambulatory subject supports the diagnosis of Diabetes Mellitus. PERFORMED BY: [place] [address] PATHOLOGIST [employer] DOMINGA SOLIMAN M.D. Performed By: #### P T, CBC, PTT #### [address] [place] [address] [facility] Lipid Panelon 08-07-2020 Cholesterol [Mass/Vol] 201 mg/dL High 140-200 [facility] Comment on above: Result Comment: Chol less than 200 mg/dl low risk Chol 201-239 mg/dl borderline risk Chol 240 mg/dl and greater high risk Performed By: #### G LULS #### Point of Care testing , Cholesterol in HDL [Mass/Vol] 49 mg/dL Normal 35-85 [facility] Comment on above: Result Comment: HDL CHOL ATP-III CLASSIFICATION Cardiovascular Risk HDL > or equal to 60 mg/dL LOW HDL < 40 mg/dL HIGH Performed By: #### G LULS #### Point of Care testing , Cholesterol.total/Ch olesterol in HDL [Mass ratio] 4.1 {ratio} Normal <5.0 [facility] Comment on above: Result Comment: PERF ORMED BY: [facility] [address] [place] [address] PATHOLOGIST [employer] DOMINGA SOLIMAN M.D. Performed By: #### G LULS #### Point of Care testing , LDL Cholesterol,Calculat ed 127 mg/dL High 0-100 [facility] Comment on above: Result Comment: LDL ATP III CLASSIFICATION LDL less than 100 mg/dL Optimal LDL 100-129 mg/dL Near or above optimal LDL 130-159 mg/dL Borderline high LDL 160-189 mg/dL High LDL greater than 189 mg/dL Very high Performed By: #### G LULS #### Point of Care testing , Triglyceride w/Reflex 126 mg/dL Normal 35-149 [facility] Comment on above: Result Comment: TRIG ATP III CLASSIFICATION TRIG less than 150 mg/dL Normal TRIG 150-199 mg/dL Borderline high TRIG 200-500 mg/dL High TRIG greater than 500 mg/dL Very high Standard traceable to the Center for Disease Conrtrol and Prevention (CDC) test method. Performed By: #### G LULS #### Point of Care testing , VLDL CHOLESTEROL 25 mg/dL Normal [facility] Comment on above: Performed By: #### G LULS #### Point of Care testing , Magnesiumon 08-07-2020 Magnesium [Mass/Vol] 2.0 mg/dL Normal 1.6-2.6 [facility] Comment on above: Performed By: #### G LULS #### Point of Care testing , Partial Thromboplastin Timeo n 08-07-2020 aPTT Coag (Bld) [Time] 42.8 s High 25.1-36.5 [facility] Comment on above: Result Comment: PERF ORMED BY: [facility] [address] [place] [address] PATHOLOGIST [employer] DOMINGA SOLIMAN M.D. Performed By: #### G LULS #### Point of Care testing , aPTT Coag (Bld) [Time] 33.2 s Normal 25.1-36.5 [facility] Comment on above: Result Comment: PERF ORMED BY: [place] [address] PATHOLOGIST [employer] DOMINGA SOLIMAN M.D. Performed By: #### P T, CBC, PTT #### [address] Prothrombin Time INRon 08-07 INR Coag (PPP) [Relative time] 1.0 {INR} Normal [facility] Comment on above: Result Comment: INR Therapeutic [...] Coag (PPP) [Time] 11.4 s Normal 9.0-12.9 [facility] Comment on above: Performed By: #### G LULS #### Point of Care testing , INR Coag (PPP) [Relative time] 1.0 {INR} Normal [facility] Comment on above: Result Comment: INR Therapeutic [...] By: #### P T, CBC, PTT #### [facility] [address] PT Coag (PPP) [Time] 11.2 s Normal 9.0-12.9 [facility] Comment on above: Performed By: #### P T, CBC, PTT #### [facility] [address] Troponin I(TnI)on 08-07-2020 Troponin I.cardiac [Mass/Vol] 3.26 ng/mL Off scale high 0-0.02 [facility] Comment on above: Result Comment: [place]I [place] Cut off value > or equal to 0.03 ng/mL in conjunction with clinical conditions of myocardial infarction. (www.escardio.org/guidelines) PERFORMED BY: [place] [address] PATHOLOGIST [employer] DOMINGA SOLIMAN M.D. Performed By: #### P T, CBC, PTT #### [facility] [address] [place] [address] [place] Troponin I.cardiac [Mass/Vol] 3.61 ng/mL Off scale high 0-0.02 [facility] Comment on above: Result Comment: [place]I [place] Cut off value > or equal to 0.03 ng/mL in conjunction with clinical conditions of myocardial infarction. (www.escardio.org/guidelines) PERFORMED BY: [place] [address] PATHOLOGIST [employer] DOMINGA SOLIMAN M.D. Performed By: #### T ROP #### [facility] [address] [place] [address] [place] Troponin I.cardiac [Mass/Vol] 4.39 ng/mL Off scale high 0-0.02 [facility] Comment on above: Result Comment: Resu lts called at 0009 on 08/07/20 [place]I [place] Cut off value > or equal to 0.03 ng/mL in conjunction with clinical conditions of myocardial infarction. (www.escardio.org/guidelines) PERFORMED BY: [place] [address] PATHOLOGIST [employer] DOMINGA SOLMIAN M.D. Performed By: #### P T, CBC, PTT #### [address] ECG 12 lead ECGon 08-06-2020 ECG 12 lead ECG [facility] [place] [address] [place] [address] Electrocardiograph Report Signed Patient: Lucila Tineo MR#: [id number] : 1950 Acct:[id number] Age/Sex: 70 / F ADM Date: 08/06/20 Loc: Room: [address] [place] [address] Type: ADM IN Attending Dr: Drew Patterson [...] Castillo MD 08/06/202110 Signed By: 08/07/20 1712 [facility] Vital Signs Date Time Vital Sign Value Performing Clinician Faci lity 03-06-2023 10:08-0500 Body height 162.6 cm Ange Gee MD Work Phone: [employer] 03-06-2023 10:08-0500 Body mass index (BMI) [Ratio] 25.23 kg/m2 Ange Gee MD Work Phone: [employer] 03-06-2023 10:08-0500 Body weight 66.68 kg Ange Gee MD Work Phone: [employer] 03-06-2023 10:08-0500 Diastolic blood pressure 80 mm[Hg] Ange Gee MD Work Phone: [employer] 03-06-2023 10:08-0500 Heart rate 87 /min Ange Gee MD Work Phone: [employer] 03-06-2023 10:08-0500 SaO2% (BldA) [Mass fraction] 94 % Ange Gee MD Work Phone: [employer] 03-06-2023 10:08-0500 Systolic blood pressure 132 mm[Hg] Ange Gee MD Work Phone: [facility] 12-11-2021 11:20-0400 Body height 162.56 cm Mily Ashley Andrade Work Phone: [facility] 250 DO Work Phone: 12-11-2021 11:20-0400 Body mass index (BMI) [Ratio] 27.98 kg/m2 Mily Ashley Andrade Work Phone: [facility] 250 DO Work Phone: 12-11-2021 11:20-0400 Body surface area Derived from formula 1.79 m2 Mily Ashley Andrade Work Phone: [facility] 250 DO Work Phone: 12-11-2021 11:20-0400 Body weight 73.94 kg Mily Ashley Andrade Work Phone: [facility] [facility] 250 DO Work Phone: 12-11-2021 11:20-0400 Diastolic blood pressure 78 mm[Hg] Mily A Andrade Work Phone: [facility] 250 DO Work Phone: 12-11-2021 11:20-0400 Heart rate 76 /min Mily Ashley Andrade Work Phone: [facility] 250 DO Work Phone: 12-11-2021 11:20-0400 Systolic blood pressure 136 mm[Hg] Mily Gabi Andrade Work Phone: [facility] 250 DO Work Phone: 02-05-2021 11:35-0500 Body height 162.56 cm Mily A Andrade Work Phone: [facility] 250 DO Work Phone: 02-05-2021 11:35-0500 Body mass index (BMI) [Ratio] 28.67 kg/m2 Mily Gabi Andrade Work Phone: [facility] 250 DO Work Phone: 02-05-2021 11:35-0500 Body surface area Derived from formula 1.81 m2 Mily Gbai Andrade Work Phone: [facility] 250 DO Work Phone: 02-05-2021 11:35-0500 Body weight 75.75 kg Mily Gabi Andrade Work Phone: [facility] 250 DO Work Phone: 02-05-2021 11:35-0500 Diastolic blood pressure 81 mm[Hg] Mily A Andrade Work Phone: [facility] 250 DO Work Phone: 02-05-2021 11:35-0500 Heart rate 77 /min Mily Ashley Andrade Work Phone: [facility] 250 DO Work Phone: 02-05-2021 11:35-0500 Systolic blood pressure 157 mm[Hg] Mily Ashley Andrade Work Phone: [facility] 250 DO Work Phone: 12-04-2020 15:01-0400 Diastolic blood pressure 72 mm[Hg] Bruce Updon DO Work Phone: [facility] 600 DO Work Phone: 12-04-2020 15:01-0400 Systolic blood pressure 170 mm[Hg] Bruce Elias DO Work Phone: [facility] 600 DO Work Phone: 12-04-2020 13:53-0400 Body height 162.56 cm Bruce Elias DO Work Phone: [facility] 600 DO Work Phone: 12-04-2020 13:53-0400 Body mass index (BMI) [Ratio] 29.01 kg/m2 Bruce Elias DO Work Phone: [facility] 600 DO Work Phone: 12-04-2020 13:53-0400 Body surface area Derived from formula 1.82 m2 Bruce Elias DO Work Phone: [facility] 600 DO Work Phone: 12-04-2020 13:53-0400 Body weight 76.66 kg Bruce Elias DO Work Phone: [facility] [address] DO Work Phone: 12-04-2020 13:53-0400 Diastolic blood pressure 90 mm[Hg] Bruce Elias DO Work Phone: [facility] 600 DO Work Phone: 12-04-2020 13:53-0400 Heart rate 68 /min Bruce Elias DO Work Phone: [facility] 600 DO Work Phone: 12-04-2020 13:53-0400 Systolic blood pressure 150 mm[Hg] Bruce Elias DO Work Phone: [facility] 600 DO Work Phone: 11-06-2020 15:18-0400 70 1 Bruce Elias DO Work Phone: -[facility] 600 DO Work Phone: Comment on above: [id number] Encounters Encounter Date Encounter Type Care Provider Facility Start: 03-25-2023 End: 03-25-2023 Emergency department patient visit MILY ANDRADE Facility:[facility] Start: 03-25-2023 End: 03-25-2023 ambulatory MILY ANDRADE Facility:[facility] Start: 03-06-2023 End: 03-06-2023 ambulatory ANGE GEE [facility] Start: 03-06-2023 End: 03-06-2023 Office outpatient visit 25 minutes Ange Gee MD Work Phone: [facility] Comment on above: Essential hypertensi on (Primary Dx); Paroxysmal atrial fibrillation ([facility]) Start: 03-05-2023 Telephone encounter Corrie Goldstein 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 Start: 12-04-2022 Telephone encounter Neurology Provid er [facility] Comment on above: Future Appointment ( New [place], [place], Any) Start: 08-25-2022 Rx Renewal Mily dumasrick Work Phone: [facility] 250 DO Work Phone: Start: 01-07-2022 Rx Renewal Mily dumasrick Work Phone: [facility] 250 DO Work Phone: Start: 12-11-2021 Office outpatient vi sit 15 minutes Mily Gonzalezzpatrick Work Phone: [facility] 250 DO Work Phone: Start: 12-11-2021 ambulatory Ms. Mily ramos Lupe Facility: Start: 10-11-2021 Telephone encounter Mily Andrade Work Phone: [facility] 250 DO Work Phone: Start: 09-03-2021 Rx Renewal Mily Gabi Arnie boswell Work Phone: [facility] 250 DO Work Phone: Start: 02-05-2021 Office outpatient vi sit 10 minutes Mily Gonzalezzpatrick Work Phone: [facility] 250 DO Work Phone: Start: 02-05-[address] Bruce Elias Fac ility: Start: 12-04-2020 Patient encounter procedure Bruce Elias DO Work Phone: [facility] 600 DO Work Phone: Start: 09-05-2020 End: 03-06-2021 ambulatory SALAS ADORNOLisaSANDHU Facility: Echocardiogram normal Mily A Andrade Work Phone: [facility] 250 DO Work Phone: Procedures Date Procedure [...] Td Vaccines (2 - Td or Tdap) [facility] Start: 06-09-2028 Urine microalbumin profile DTaP,Tdap,Td Vaccine (2 - Td or Tdap) [facility] Start: 01-16-2026 Diabetes Screening Diabetes Screening [facility] Start: 03-06-2024 Adult BMI Screening Adult BMI Screening [facility] Start: 03-06-2024 Tobacco Screening Tobacco Screening [facility] Start: 01-22-2024 Adult BMI Screening Adult BMI Screening [facility] Start: 01-19-2024 Tobacco Screening Tobacco Screening [facility] Start: 03-06-2023 End: 03-06-2023 Patient encounter procedure 03/06/2023 10:15 AM EST Office Visit [facility] [address] [place] [address] Ange Gee MD [address] [place] [address] [facility] Start: 12-11-2022 FUV, Provider: Bruce Elias, Status: Pen, Time: 10:20 AM FUV, Provider: rBuce Elias, Status: Pen, Time: 10:20 AM -[facility] 250 DO Work Phone: Start: 10-31-2022 Covid-19 Vaccine ( season) Covid-19 Vaccine () [facility] Start: 10-31-2022 Influenza vaccination [facility] Start: 03-02-2022 Advance Directive Discussion Advance Directive Discussion [facility] Start: 03-02-2022 Depression Assessment Depression Assessment [facility] Start: 12-11-2021 FUV, Provider: Bruce Elias, Status: Pen, Time: 11:20 AM FUV, Provider: Bruce Elias, Status: Pen, Time: 11:20 AM [facility] 600 DO Work Phone: Start: 02-19-2021 NURSEVST, Provider: DAVID LANDEROS WIRE BOUND BOX MACHINE OPERATOR 1,[id number], Status: Pen, Time: 11:00 AM NURSEVST, Provider: DAVID LANDEROS WIRE BOUND BOX MACHINE OPERATOR 1,[id number], Status: Pen, Time: 11:00 AM [facility] 250 DO Work Phone: Start: 01-09-2021 FUV, Provider: Salas Wilson, Status: Pen, Time: 1:30 PM FUV, Provider: Salas Wilson, Status: Pen, Time: 1:30 PM [facility] 600 DO Work Phone: Start: 04-03-2020 Administration of varicella zoster vaccine Zoster (Shingles) Vaccine (2 of 2) [facility] Start: 04-03-2020 Shingrix Vaccine (2 of 2) Shingrix Vaccine (2 of 2) [facility] Start: 2015 Bone Density Screening Bone Density Screening [facility] Start: 2015 Fall Risk Screening Fall Risk Screening [facility] Start: 2010 RSV Vaccine (1 - 1-dose 60+ series) RSV Vaccine (1 - 1-dose 60+ series) [facility] Start: 02-22-2000 Shingrix Vaccine (1 of 2) Shingrix Vaccine (1 of 2) [facility] Start: 1995 Cologuard (FIT-DNA) Cologuard (FIT-DNA) [facility] Start: 1995 Colonoscopy Colonoscopy [facility] Start: 1995 Colorectal Cancer Screening Colorectal Cancer Screening [facility] Start: [address] COLONOGRAPHY [facility] Start: 1995 Diabetes Screening Diabetes Screening [facility] Start: 1995 Fecal Occult Blood Fecal Occult Blood [facility] Start: 1995 Lipid 1996 panel - Serum or Plasma Lipid Screening [facility] Start: 1995 SIGMOIDOSCOPY SIGMOIDOSCOPY [facility] Start: 1990 Mammography Mammogram Screening [facility] Start: 1969 Urine microalbumin profile DTaP,Tdap,Td Vaccine (1 - Tdap) [facility] Start: 02-22-1968 Adult BMI Follow Up Plan Adult BMI Follow Up Plan [facility] Start: 02-22-1968 Diabetic foot examination Diabetic Foot Exam [facility] Start: 02-22-1968 Hepatitis C Screening Hepatitis C Screening [facility] Start: 1962 Depression Screening Depression Screening [facility] Start: 02-22-1956 Pneumococcal Vaccine: 65+ (1 - PCV) Pneumococcal Vaccine: 65+ (1 - PCV) [facility] Start: 1950 Glaucoma screening Diabetic Ophthalmology Exam [facility] Start: 1950 Medicare Annual Wellness Visit Medicare Annual Wellness Visit [facility] Start: 1950 Tobacco Counseling Tobacco Counseling [facility] Start: 1950 Urine screening for protein Urine Microalbumin [facility] Immunizations Immunization Date Immunization Notes Care Provider Ronny naylor 05-16-2022 influenza virus vaccine, unspecified formulation Jah Sharpe MD Work Phone: [facility] 04-10-2021 Moderna COVID-19 Vaccine 100 MCG/0.5ML Intramuscular Suspension Mily Gonzalezzpatrick [facility] Work Phone: 05-09-2020 Lico COVID-19 Vaccine 0.5 ML Intramuscular Suspension Bruce Elias DO Work Phone: [facility] 02-07-2020 influenza, high dose seasonal, preservative-free Bruce Elias DO Work Phone: [facility] 600 DO Work Phone: 02-07-2020 zoster vaccine recombinant Bruce Elias DO Work Phone: [facility] 600 DO Work Phone: 02-07-2020 influenza virus vaccine, unspecified formulation Neurology Provider [facility] 02-07-2020 zoster vaccine, unspecified formulation Corrie Goldstein [facility] 03-02-2019 influenza, seasonal, injectable Bruce Elias DO Work Phone: [facility] 600 DO Work Phone: 02-14-2019 influenza, high dose seasonal, preservative-free Bruce Elias DO Work Phone: [facility] 600 DO Work Phone: 06-09-2018 tetanus toxoid, redu clif diphtheria toxoid, and acellular pertussis vaccine, adsorbed Bruce Elias DO Work Phone: [facility] 600 DO Work Phone: 03-02-2018 pneumococcal polysaccharide vaccine, 23 valent Bruce Elias DO Work Phone: [facility] 600 DO Work Phone: 12-02-2017 influenza, high dose seasonal, preservative-free Bruce Elias DO Work Phone: [facility] 600 DO Work Phone: 02-25-2017 influenza, high dose seasonal, preservative-free Bruce Elias DO Work Phone: [facility] 600 DO Work Phone: 02-17-2017 pneumococcal polysaccharide vaccine, 23 valent Bruce Elias DO Work Phone: [facility] 600 DO Work Phone: 11-06-2015 influenza, injectabl e, quadrivalent, contains preservative Bruce Elias DO Work Phone: [facility] 600 DO Work Phone: 11-06-2015 pneumococcal conjuga te vaccine, 13 valent Bruce Elias DO Work Phone: [facility] 600 DO Work Phone: 12-15-2013 influenza, seasonal, injectable Bruce Elias DO Work Phone: [facility] 600 DO Work Phone: 12-21-2012 influenza, seasonal, injectable Bruce Elias DO Work Phone: [facility] 600 DO Work Phone: 12-16-2006 pneumococcal polysaccharide vaccine, 23 valent Bruce Elias DO Work Phone: [facility] 600 DO Work Phone: 11-18-2006 pneumococcal polysaccharide vaccine, 23 valent Bruce Elias DO Work Phone: [facility] 600 DO Work Phone: Payers Date Payer Category Payer Medicaid MEDICAID [facility] EDICAID [id number] 2023-[facility] [phone] [place] [id number] 2023 Medicaid [id number] 2018 Medicare [id number] 1959 Medicare [id number] 1950 Unknown [id number] 1950 Unknown [id number] 1950 Unknown [id number] 1950 Unknown [id number] 1950 Unknown [id number] 1950 Unknown [id number] Unknown Social History Date Type Detail Facility Start: 10-14-2018 End: 05-08-2020 No alcohol use No alcohol use [facility] Comment on above: 1 TEA DAILY; 1/2 PPD; Start: 10-14-2018 End: 05-27-2022 Tobacco smoking status SCIS Smokes tobacco daily [facility] History of tobacco use Cigarette Smoker [facility] Start: 10-14-2018 End: 05-27-2022 Tobacco use and exposure Smokeless tobacco non-user [facility] Start: 04-21-2019 End: 05-08-2020 Tobacco use panel [facility] National Score (1-10 0), lower number is lower risk Not on file [facility] Start: 1950 Sex Assigned At Female C [facility] Start: 12-09-2022 Gender identity Identifies as female gender (finding) [facility] Start: 12-09-2022 Sexual orientation Heterosexual (fin ding) [facility] Start: 01-18-2023 End: 03-06-2023 Alcohol intake Ex-drinker (finding) [facility] [facility] Start: 1950 Sex Assigned At Not on file [facility] [employer] Goals Date Patient Goal Desired Activity /State Personal health goal Comment on above: Formatting of this n ote might be different from the original. Evaluation of progress towards goal: In progress: Return to [place]. Clinical Notes 12-08-2022 to 03-25-2023 Ange Gee MD - 03/06/2023 10:15 AM ESTTelephone Encounter - Corrie Goldstein, [facility] - 03/05/2023 12:21 PM ESTTelephone Encounter - Corrie Goldstein, [facility] - 03/05/2023 12:21 PM EST Note Date & Type Note Facility 03-25-2023 Note HNO ID: [id number] Author: KRISTI MARTINEZ RT(R) Service: Radiology Author Type: Technologist Type: Progress Notes Filed: 03/25/2023 12:47 Note Text: Radiology Service Progress Note PATIENT NAME: Lucila Tineo DATE OF SERVICE: March 25, 2023 TIME: 12:47 PM PATIENT IDENTITY VERIFICATION COMPLETED USING TWO (2) IDENTIFIERS: Name and Date of confirmed by patient verbally. FALL SCREENING: Has the patient had 2 falls in the last year or 1 fall with injury or currently using an Ambulatory Assistive Device (Walker, Cane, Wheelchair, Crutches, etc.)? Emergency Room Patient: Screened in ED PATIENT GENDER DATA: Female. status: : No status: NO. PATIENT RELEVANT IMPLANT DATA REVIEWED: Not Applicable RADIOLOGY DEPARTMENT: General X-ray: Exam(s) Completed: Chest X-Ray PERIPHERAL IV DATA: Not applicable SIGNED BY: RT Mahesh(R) March 25, 2023 12:47 PM [facility] 03-25-2023 Note HNO ID: [id number] Author: BRO HAWK MD Service: ? Author Type: Physician Type: Progress Notes Filed: 03/25/2023 11:09 Note Text: [facility] [place] DEPARTMENT OF VASCULAR SURGERY OUTPATIENT VISIT DATE March 25, 2023 OUTPATIENT VISIT TYPE ESTABLISHED SERVICE DATE: 03/25/2023 SERVICE TIME: 11:07 AM PRIMARY CARE PHYSICIAN: Mily Andrade CNP HISTORY OF PRESENT ILLNESS: Ms. Tineo is a 73 year old female who presents today for a vascular surgery follow-up visit of her taaa. PAST MEDICAL HISTORY Diagnosis Date Current smoker Diabetes mellitus (HCC) Diabetes mellitus w/irratic blood glucose(s) SHIRA (renal artery stenosis) (HCC) 2 arteries partially occluded Thoracoabdominal aortic aneurysm (TAAA) (HCC) PAST SURGICAL HISTORY Procedure Laterality Date APPENDECTOMY HYSTERECTOMY SOCIAL HISTORY Social History Tobacco Use Smoking status: Every Day Packs/day: 0.75 Years: 62.00 Additional pack years: 0.00 Total pack years: 46.50 Types: Cigarettes Smokeless tobacco: Never MEDICATIONS: amLODIPine (NORVASC) 5 mg tablet Take 5 mg by mouth once daily. apixaban (ELIQUIS) 5 mg tab(s) Take 5 mg by mouth two times a day. pregabalin (LYRICA) 25 mg capsule Take 25 mg by mouth two times a day. ondansetron (ZOFRAN) 4 mg tablet Take 4 mg by mouth every 8 hours as needed for nausea/vomiting. POTASSIUM-99 ORAL Take 40 mEq by mouth once daily. Sennosides (SENNA) 8.6 mg cap Take 1 capsule by mouth as needed. traMADol (ULTRAM) 50 mg tablet Take 50 mg by mouth every 6 hours as needed for pain. venlafaxine ER (EFFEXOR XR) 37.5 mg 24 hr capsule Take 37.5 mg by mouth once daily. insulin glargine,hum.rec.anlog (INSULIN GLARGINE SUBCUTANEOUS) Inject 15 Units subcutaneously once daily. SLIDING SCALE insulin lispro (HUMALOG KWIKPEN) 100 unit/mL Inject 4 Units subcutaneously three times a day before meals. SLIDING SCALE atorvastatin (LIPITOR) 40 mg tablet Take 40 mg by mouth once daily. aspirin, enteric coated (ASPIRIN, ENTERIC COATED) 81 mg EC tablet Take 81 mg by mouth once daily. levothyroxine (SYNTHROID) 150 mcg tablet Take 150 mcg by mouth once daily. metoprolol succinate ER (TOPROL XL) 100 mg Take 100 mg by mouth once daily. clopidogrel (PLAVIX) 75 mg tablet Take 75 mg by mouth once daily. nitroglycerin sublingual (NITROQUICK) 0.4 mg SL tablet Dissolve 0.4 mg under the tongue every 5 minutes as needed. iv contrast (will be provided with radiology [...] Take 50 mg by mouth once daily. insulin degludec (TRESIBA [...] in the CT contrast administration guidelines link. ALLERGIES: ALLERGIES Allergen Reactions Penicillins Hives PHYSICAL EXAM: BP 140/84 Pulse 104 Complaining of chest pain . Diagnostic tests reviewed for today's visit: Most recent imaging shows unchanged IMPRESSION: Ms. Tineo is a 73 year old female with stable taaa. N (more content not included)... [facility] 03-25-2023 Note HNO ID: [id number] Author: SEPIDEH TOVAR RN Service: Nursing Author Type: Registered Nurse Type: Progress Notes Filed: 03/25/2023 10:01 Note Text: Radiology Service Progress Note DATE OF SERVICE: March 25, 2023 TIME: 9:59 AM PATIENT WEIGHT: 120LBS PATIENT IDENTITY VERIFICATION COMPLETED USING TWO (2) STANDARD IDENTIFIERS: Name and Date of confirmed by patient verbally and Name and Date of confirmed by identification band. FALL SCREENING: Has the patient had 2 falls in the last year or 1 fall with injury or currently using an Ambulatory Assistive Device (Walker, Cane, Wheelchair, Crutches, etc.)? Yes, Patient High Risk for Falls What interventions were put in place to prevent falls during this visit? Yellow Falls Risk Wristband Applied PATIENT GENDER DATA: Female. status: : No status: NO. ALLERGIES: Reviewed and unchanged CONTRAST ALLERGY: No EXAM: CT -CONTRAST INDUCED NEPHROPATHY RISK FACTORS: Patient age > 60 years and Diabetic: Yes. Current medication(s): Insulin Glucose Monitoring: N/A Scan Performed: N/A and Tresiba. Patient currently has insulin pump?: No. CREATININE: Creatinine (POCT) Date Value Ref Range Status 09/20/2020 0.80 0.7 - 1.4 mg/dL Final 04/21/2019 0.70 0.7 - 1.4 mg/dL Final 10/14/2018 0.70 0.7 - 1.4 mg/dL Final eGFR (POCT) Date Value Ref Range Status 09/20/2020 >60 mL/min/1.73 m2 Final eGFR- (POCT) Date Value Ref Range Status 09/20/2020 >60 mL/min/1.73 m2 Final P.O.C.T. RESULTS: POC done: Yes, See Lab Tab March 25, 2023 - 95 TREATMENT: No Hydration needed. IV SITE: Ambulatory: A peripheral IV was started in the Left antecubital site with a Angio cath: 20 gauge. IV SITE APPEARANCE: Clean,Dry and Intact SIGNATURE: Sepideh Tovar RN PATIENT NAME: Lucila Tineo DATE: March 25, 2023 TIME: 9:59 AM [facility] 03-25-2023 Note HNO ID: [id number] Author: FRANK COLEMAN RT(R) Service: Radiology Author Type: Technologist Type: Progress Notes Filed: 03/25/2023 10:22 Note Text: Radiology Service Progress Note PATIENT NAME: Lucila Tineo DATE OF SERVICE: March 25, 2023 TIME: 10:19 AM PATIENT IDENTITY VERIFICATION COMPLETED USING TWO (2) IDENTIFIERS: Name and Date of confirmed by patient verbally. FALL SCREENING: Has the patient had 2 falls in the last year or 1 fall with injury or currently using an Ambulatory Assistive Device (Walker, Cane, Wheelchair, Crutches, etc.)? No PATIENT GENDER DATA: Female. status: : No status: NO. PATIENT RELEVANT IMPLANT DATA REVIEWED: Yes RADIOLOGY DEPARTMENT: CT; Exam(s) Completed: Cardiac PERIPHERAL IV DATA: Site assessment: Clean,Dry and Intact, Site disposition Discontinued SIGNED BY: RT Monica(R) March 25, 2023 10:19 AM [facility] 03-06-2023 History of Presen t illness Narrative Lucila Tineo Date of visit: 03/06/2023 Date of : 1950 Age: 73 y.o. Patient Active Problem List Diagnosis Bilateral carotid artery stenosis Thoracic aortic aneurysm without rupture ([facility]) PAD (peripheral artery disease) ([facility]) Claudication ([facility]) Lumbar radiculopathy, chronic Fall, initial encounter 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 ([facility]) Uncontrolled type 2 diabetes mellitus with hyperglycemia ([facility]) HLD (hyperlipidemia) History of stroke COPD (chronic obstructive pulmonary disease) ([facility]) ASCVD (arteriosclerotic cardiovascular disease) High anion gap metabolic acidosis Left middle cerebral artery aneurysm JEYSON (acute kidney injury) ([facility]) Elevated troponin Essential hypertension Fecal impaction ([facility]) Stercoral colitis Paroxysmal atrial fibrillation ([facility]) Allergies Allergen Reactions Penicillins Hives and Other (See Comments) Other Reaction(s): Hives Current Outpatient Medications Medication Sig Dispense Refill amLODIPine (NORVASC) 5 mg tablet Take 1 tablet (5 mg total) by mouth in the morning. apixaban (ELIQUIS) 5 mg tablet Take 1 tablet (5 mg total) by mouth in the morning and 1 tablet (5 mg total) before bedtime. 60 tablet 2 aspirin 81 mg Take 1 tablet (81 mg total) by mouth in the morning. atorvastatin (LIPITOR) 40 mg tablet Take 1 tablet (40 mg total) by mouth in the morning. calcium carbonate-vitamin D3 (OSCAL 500 + D) 500 mg(1,250mg) -200 units per tablet Take 1 tablet by mouth in the morning and 1 tablet in the evening. Take with meals. insulin aspart U-100 (NovoLOG) 100 unit/mL (3 mL) insulin pen Inject under the skin. insulin glargine (LANTUS) 100 unit/mL injection Inject 0.15 mL (15 Units total) under the skin nightly. insulin lispro (HumaLOG) 100 unit/mL insulin pen Inject 4 Units under the skin in the morning and 4 Units at noon and 4 Units in the evening. Inject with meals. 15 mL 12 insulin lispro (HumaLOG) 100 unit/mL insulin pen Inject 2-10 Units under the skin 4 (four) times a day with meals and nightly. 15 mL 12 levothyroxine (SYNTHROID, LEVOTHROID) 150 MCG tablet Take 1 tablet (150 mcg total) by mouth in the morning. magnesium hydroxide 400 mg/5 mL suspension Take 30 mL by mouth nightly as needed. melatonin 3 mg capsule Take 3 mg by mouth nightly as needed (insomnia). ondansetron (ZOFRAN) 4 mg tablet Take 1 tablet (4 mg total) by mouth every 8 (eight) hours as needed for nausea or vomiting. pregabalin (LYRICA) 25 mg capsule Take 1 capsule (25 mg total) by mouth in the morning and 1 capsule (25 mg total) before bedtime. senna (SENOKOT) 8.6 mg tablet Take 1 tablet (8.6 mg total) by mouth 2 (two) times a day as needed for constipation. 30 each 0 sennosides-docusate sodium (SENNA WITH DOCUSATE SODIUM) 8.6-50 mg Take 1 tablet by mouth in the morning. traMADoL (ULTRAM) 50 mg tablet Take 1 tablet (50 mg total) by mouth every 6 (six) hours as needed for pain. venlafaxine XR (EFFEXOR XR) 37.5 mg 24 hr capsule Take 1 capsule (37.5 mg total) by mouth in the morning. No current facility-administered medications for this visit. Chief Complaint Patient presents with Follow-up EST PT IP LARRY FALL 30 DAY EM POSSIBLE AFIB SCHED W/ALBA PT DAUGHTER ALEX AND PT KNOWS SHE IS OOP History of Present Illness Lucila is here for follow-up. She has suffered a stroke late last year. There has no definite etiology initially noted but then during a subsequent hospitalization in December, she was noted to have paroxysms of atrial fibrillation with RVR. She would cerebral aneurysms that were known and followed conservatively by [facility]. She has been started on Eliquis. She is doing well with this. She has not symptomatic from a standpoint of atrial fibrillation. She does not have palpitations. She has in an extended care facility but largely doing a lot of care on her own. She has not having vitals checked regularly. She does not have any chest pain or shortness of breath. She has residual deficits from the stroke. Has a descending thoracic aneurysm that is followed by vascular in [place]. She has not been back to [place] in some time. A repeat CTA of the abdomen and pelvis that was not a dedicated CTA study was done here in [place] and reported 4.9 cm aneurysm. I do not see the last assessment in [place] but there is a reading from 2020 42 mm. I am not sure whether getting the measurement of 4.9 cm on the study here. There is a lot of artifact and I see measurements that may be 44-45 mm but not clearly 49. Past Medical History: Diagnosis Date JEYSON (acute kidney injury) ([facility]) 01/16/2023 Cancer ([facility]) Chronic pain disorder Descending aortic aneurysm ([facility]) Diabetes mellitus type 2, controlled ([facility]) Emphysema of lung ([facility]) Former smoker Hypertension Low back pain NSTEMI, initial episode of care ([facility]) PAD (peripheral artery disease) ([facility]) 11/19/2020 Skin cancer Spinal stenosis of lumbar region with neurogenic claudication Stroke ([facility]) Uncontrolled type 2 diabetes mellitus with hyperglycemia ([facility]) 01/08/2021 No data recorded No data recorded No data recorded Past Surgical History: Procedure Laterality Date APPENDECTOMY CARPAL TUNNEL RELEASE CYST REMOVAL HYSTERECTOMY INJECTION BLOCK EPIDURAL CAUDAL STEROID N/A 05/09/2022 Performed by Bruce Mcgregor MD at [facility] SKIN CANCER EXCISION TONSILLECTOMY Family History Problem Relation Age of Onset Heart disease Mother Coronary artery disease Mother Coronary artery disease Father Cancer Father Social History Socioeconomic History Marital status: Spouse name: Not on file Number of children: Not on file Years of education: Not on file Highest education level: Not on file Occupational History Not on file Tobacco Use Smoking status: Every Day Smokeless tobacco: Never Vaping Use Vaping Use: Never used Substance and Sexual Activity Alcohol use: Not Currently Drug use: Never Sexual activity: Not on file Other Topics Concern Caffeine Use Yes Social History Narrative Not on file Social Determinants of Health Financial Resource Strain: Not on file Food Insecurity: No Food Insecurity (03/06/2023) Hunger Screening Food Insecurity - Worry: Never True Food Insecurity - Inability: Never True Transportation Needs: Not on file Physical Activity: Not on file Stress: Not on file Social Connections: Not on file Interpersonal Safety: Not on file Review of Systems Review of Systems Constitutional: Negative for chills, fever and malaise/fatigue. HENT: Negative for hearing loss, hoarse voice and nosebleeds. Eyes: Positive for visual disturbance. Negative for blurred vision and double vision. Respiratory: Negative for cough, shortness of breath and wheezing. Hematologic/Lymphatic: Negative for bleeding problem. Bruises/bleeds easily. Skin: Negative for color change, rash and suspicious lesions. Musculoskeletal: Positive for back pain. Negative for joint swelling and muscle weakness. Gastrointestinal: Negative for change in bowel habit, constipation, diarrhea and hematochezia. Genitourinary: Negative for hematuria. Neurological: Negative for dizziness, headaches, light-headedness, loss of balance and numbness. Psychiatric/Behavioral: Negative for depression. The patient is not nervous/anxious. Allergic/Immunologic: Negative for environmental allergies. CARDIOVASCULAR: Please review HPI. Physical Examination General appearance: Alert, oriented and cooperative. In no acute distress. Skin: Warm and dry to touch. Head: Normocephalic, without obvious abnormality, atraumatic. Ears, Nose, Mouth, Throat: Throat clear without erythema or exudate. Dentition intact. Eyes: Conjunctivae unremarkable, EOM intact. Neck: No JVD, No carotid bruit. Neck supple, trachea midline. Respiratory: Clear to auscultation bilaterally, no use of accessory muscles. Cardiovascular: RRR with normal S1 and S2 with no murmurs. Gastrointestinal: Soft, non-tender. Bowel sounds normal. Musculoskeletal: No peripheral edema. Neurologic: Oriented to time, person and place, affect appropriate. No focal/major motor defects noted. Psychiatric: Appropriate mood, memory and judgement. VITAL SIGNS: BP 132/80 (BP Site: Right Arm, BP Postition: Sitting) Pulse 87 Ht 162.6 cm (5' 4 ) Wt 66.7 kg (147 lb) SpO2 94% BMI 25.23 kg/m Orders Placed or Reconciled This Encounter Medications traMADoL (ULTRAM) 50 mg tablet Sig: Take 1 tablet (50 mg total) by mouth every 6 (six) hours as needed for pain. There are no discontinued medications. IMPRESSIONS/PLAN 1. Essential hypertension 2. Paroxysmal atrial fibrillation (CMS-HCC) 1. New right parietal lobe CVA with History of CVA 09/2022, large right hemispheric ischemic stroke with M2 vessel cut off, diagnosed in [place], [place] 2. Primary hypertension 3. Hyperlipidemia 4. Type 2 diabetes , DKA 5. Elevation. Non-STEMI 2020 with catheterization revealing thrombotic/chronic occlusion of the RCA with attempted stent at the time. 5. ASCVD with NSTEMI 2020; LHC 2020 with thrombotic/chronic occlusion of the RCA and attempted stent 7. Aneurysmal dilatation of descending thoracic aorta measuring up to 4.9 cm in width by vascular in [place], unclear if 4.9 cm as an accurate measurement and was not as enlarged on prior study in [place]. 9. Ascending aortic enlargement/aneurysm 10. Unruptured middle cerebral artery aneurysm, follows with Dr Sharpe [facility] 11. Tobacco abuse until 09/2022 12. Hypothyroid 13. Paroxysmal atrial fibrillation with RVR, asymptomatic, picked up during recent hospital stay 12/2022 Continue Eliquis She was not placed on rate control, this is likely okay for now but I would like her to at least get vitals checked intermittently to screen for high heart rate readings and some point will need rate control added, particularly if has more prolonged episodes of atrial fibrillation Went over with her daughter who is a nurse that works here at [facility] that she should get evaluated again by Madison in an expedited fashion. I am not certain that the descending thoracic aorta is truly 4.9 cm but if this is the case, this is a rapid progression compared to previous and likely merits intervention at this point. I think she will likely need a dedicated study. I think Madison will prefer that they get a CTA there for planning. I only see the aorta closer to 4.5 cm I would nonetheless want her to make sure she meet with vascular. TODAYS ORDERS No orders of the defined types were placed in this encounter. FOLLOW UP Return in about 4 months (around 07/05/2023). PCP: MARILYN HEARD Referring Physician: MARILYN Heard [address], [address] [place] [address] documented in this encounter [facility] 03-05-2023 Miscellaneous Notes Left message for patient to remind them to bring their most current medication list with them to their appointment. documented in this encounter [facility] 03-05-2023 Telephone encounter Note Left message for patient to remind them to bring their most current medication list with them to their appointment. [facility] 01-02-2023 Miscellaneous Notes Voice mail left for daughter to discuss plan of care for follow up of cerebral aneurysm as discussed with Dr Sharpe at appointment. Imaging in 6 months versus cerebral angiogram. Requested daughter to either call this office or send a My Chart message with preference documented in this encounter [facility] 12-16-2022 Note HNO ID: [id number] Author: Jah Sharpe MD Service: ? Author Type: Physician Type: Progress Notes Filed: 12/16/2022 6:24 PM Note Text: [facility] Virtual Visit Lucila Tineo CC#: [id number] Date of Service: 12/16/2022 Primary Care Provider: Mily Andrade, SHEET METAL MECHANIC [address] [facility] [address] The patient was referred by Osei Roe for opinion regarding brain aneurysm. I will provide a written report of my findings to the referring through letter, e communication, or epic. OUTPATIENT CONSULTATION Chief complaint: Incidental unruptured brain aneurysm History of present illness: Ms. Veloz is a 72-year-old female with vascular risk factors, who presents for evaluation of an incidentally discovered unruptured brain aneurysm. The patient was residing in [place], and was found down on October 29, [...] stroke work-up. The patient then returned to [place], and she is still at a nursing [...] Discontinue saline lo (more content not included)... [facility] 12-16-2022 History of Presen t illness Narrative [facility] Virtual Visit Lucila Tineo [facility]#: [id number] Date of Service: 12/16/2022 Primary Care Provider: Mily Andrade, SHEET METAL MECHANIC [address] [facility] [address] The patient was referred by Osei Roe for opinion regarding brain aneurysm. I will provide a written report of my findings to the referring through letter, e communication, or epic. OUTPATIENT CONSULTATION Chief complaint: Incidental unruptured brain aneurysm History of present illness: Ms. Veloz is a 72-year-old female with vascular risk factors, who presents for evaluation of an incidentally discovered unruptured brain aneurysm. The patient was residing in [place], and was found down on October 29, [...] stroke work-up. The patient then returned to [place], and she is still at a nursing [...] due to left hemiparesis. Mostly wheelchair-bound. IMAGING OS CTA head and neck September 2022: Available images demonstrate significant diffuse atherosclerotic changes, and presence of an approximately 1.5 cm left middle cerebral bifurcation region partially thrombosed aneurysm with calcified rim. There is also cut off of mid M2 prominent branch, likely the cause of the patient's right MCA stroke. [facility] MRI brain September 2022: Available images demonstrate a large right hemispheric acute ischemic stroke. Additional changes also seen in the left occipital pole of unclear etiology, possibly previous ischemia. Stroke Mechanism and Scales Ischemic or TIA: Ischemic Stroke Cerebrovascular Disease w/o Stroke Event: Unruptured Aneurysm Modified [place] Score: Score: 4 NIH Stroke Scale: LOC: [...] adherence to plan/ continued education. SIGNATURE Jah Sharpe MD December 16, 2022 CC OSEI ROE [address] [facility] [address] Mily Andrade [address] [place] [address] documented in this encounter [facility] 12-08-2022 Miscellaneous Notes Images from the original note were not included. OSH imaging/records received from [facility]: December 08, 2022 -12.02.22 Dr. Roe Progress Notes scanned to chart. -Medical Hx & Imaging Reports available in Care Everywhere. Received confirmation email from Caio that imaging hs been uploaded--per dropping off disc to imaging library to upload as I wasn't able to + kept getting error per below. Images from the original note were not included. OSH imaging/records received from [facility]: December 04, 2022 -12.02.22 Dr. Roe Progress Notes scanned to chart. PENDING: -2022 Imaging -Medical Hx & Imaging Reports Walked discs over to imaging library + gave to Adry to upload MAGDALENE. Successfully sent [employer] overnight label via [employer]~ Tracking#[id number] December 05, 2022 10:30 AM 07 [employer] Priority Overnight $14.14 From: Theresa [email or web address] Last change on 12/04/2022 12:16:46 pm Sent on 12/04/2022 12:16:33 pm Completed ENDOVASCULAR INTAKE Patient name: Lucila Tineo Confirm Diagnosis/RFV (Reason for Visit): Aneurysm Is this a self-referral? no, who is the referring provider : Osei Roe [place] in [facility], [place]/His direct office number if any questions: [phone] Is this a direct referral? yes neurosurgeon Have you been recommended for surgery or procedure? Yes. coiling Are you seeking a second opinion? Yes. Do you have a MRI/MRA/CT/Ultrasound for this diagnosis? Yes. Type of imaging CT's, name/address of facility where completed [place]. [Only has reports in folder, no images] [...] if any questions. documented in this encounter [facility] Evaluation note Diagnosis Unruptured cerebral aneurysm- Primary Cerebral aneurysm, nonruptured Ischemic stroke (HCC) Hypertension, unspecified type Hyperlipidemia, unspecified hyperlipidemia type Smoking Tobacco use disorder [facility] Diagnosis Essential hypertension- Primary Unspecified essential hypertension Paroxysmal atrial fibrillation ([facility]) Atrial fibrillation [facility]* The patient presents for follow-up of essential hypertension. The patient states she has been doingwell with her blood pressure control since the last visit. Comorbid Illnesses: coronary artery disease. * Symptoms: denies impaired vision, denies dyspnea, denies chest pain, denies intermittent leg claudication and denies lower extremity edema. Associated symptoms include no headache, no focal neurologic deficits and no memory loss. * Home monitoring: The patient checks her blood pressure regularly. * Medications: the patient is adherent with her medication regimen. She denies medication side effects. 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 * Patient is ambulatory with steady gait. * Last evaluated in clinic by Dr. Elias November 2020. * Early Dec 2020 COVID+, hospitalized overnight and treated with infusion. [facility] due to minimally elevated troponin. [...] section and content) DATE CREATED AUTHOR 08/20/2020 [facility] DATE CREATED AUTHOR AUTHOR'S ORGANIZ ATION 03/11/2021 [facility] DATE CREATED AUTHOR AUTHOR'S ORGANIZ ATION 12/11/2021 [facility] DATE CREATED AUTHOR AUTHOR'S ORGANIZ ATION 12/11/2021 [employer] DATE CREATED AUTHOR AUTHOR'S ORGANIZ ATION 04/26/2022 [facility] dical Specialist DATE CREATED AUTHOR AUTHOR'S ORGANIZ ATION 03/02/2023 [facility] DATE CREATED AUTHOR AUTHOR'S ORGANIZ ATION 03/08/2023 [facility] DATE CREATED AUTHOR AUTHOR'S ORGANIZ ATION 03/28/2023 [facility] Source Comments (unrecognize d section and content) In the event this informatio n is protected by the Federal Confidentiality of Alcohol and Drug Abuse Patient Records regulations: The Federal rules restrict any use of the information to criminally investigate or prosecute any alcohol or drug abuse patient.[facility] Hospital[facility] the event this information is protected by the Federal Confidentiality of Alcohol and Drug Abuse Patient Records regulations: The Federal rules restrict any use of the information to criminally investigate or prosecute any alcohol or drug abuse patient.[facility] HospitalIn the event this information is protected by the Federal Confidentiality of Alcohol and Drug Abuse Patient Records regulations: The Federal rules restrict any use of the information to criminally investigate or prosecute any alcohol or drug abuse patient.[facility] HospitalIn the event this information is protected by the Federal Confidentiality of Alcohol and Drug Abuse Patient Records regulations: The Federal rules restrict any use of the information to criminally investigate or prosecute any alcohol or drug abuse patient.[facility] HospitalIn the event this information is protected by the Federal Confidentiality of Alcohol and Drug Abuse Patient Records regulations: The Federal rules restrict any use of the information to criminally investigate or prosecute any alcohol or drug abuse patient.[facility] HospitalIn the event this information is protected by the Federal Confidentiality of Alcohol and Drug Abuse Patient Records regulations: The Federal rules restrict any use of the information to criminally investigate or prosecute any alcohol or drug abuse patient.[facility] Reason for Visit (unrecogniz ed section and content) Reason Comments Future Appointment [place], [place], Any Reason Comments Unruptured Aneurysm 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 - Other Reason Comments Follow-up EST PT IP LARRY FALL 3 0 DAY EM POSSIBLE AFIB SCHED W/ALBA PT DAUGHTER ALEX AND PT KNOWS SHE IS OOP Care Teams (unrecognized sec tion and content) Data Control Clerk Relationship Specialty Start Date End Date Mily Andrade CNP [address] [place] [address] PCP - General Family Medicine 09/29/18 Osei Roe [address] [place] [address] Referring Neurology 12/04/22 Data Control Clerk Relationship Specialty Start Date End Date Mily Andrade CNP [address] [place] [address] PCP - General Family Medicine 09/29/18 Osei Roe [address] [place] [address] Referring Neurology 12/04/22 Data Control Clerk Relationship Specialty Start Date End Date Mily Andrade CNP [address] [place] [address] PCP - General Family Medicine 09/29/18 Osei Roe [address] [place] [address] Referring Neurology 12/04/22 Data Control Clerk Relationship Specialty Start Date End Date Mily Andrade CNP [address] [place] [address] PCP - General Family Medicine 09/29/18 Osei oRe [address] [place] [address] Referring Neurology 12/04/22 Data Control Clerk Relationship Specialty Start Date End Date Mily Andrade APRN-SHEET 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 [employer] [facility]. provides no warranty or guarantee of the accuracy or completeness of information in this document.
[2023-04-01 07:55] LABS: Basophils Percent Auto 0.6 % (0.2-2.0); Eosinophils Absolute Auto 0.2 10^3/uL (0.0-0.7); Eosinophils Percent Auto 3.6 % (0.9-7.0); Hematocrit 33.5 % (36.0-48.0); Hemoglobin 10.9 g/dL (12.0-16.0); Immature Granulocytes Abs Auto 0.02 10^3/uL (0.00-0.03); Immature Granulocytes Pct Auto 0.3 % (0.0-0.5); Mean Corpuscular HGB Conc 32.5 g/dL (29.9-35.2); Mean Corpuscular Hemoglobin 29.2 pg (26.7-34.0); Mean Corpuscular Volume 89.8 fL (81.0-99.0); Mean Platelet Volume 11.4 fL (9.5-13.5); Monocytes Absolute Auto 0.5 10^3/uL (0.3-0.8); Monocytes Percent Auto 7.3 % (1.7-12.0); Neutrophils Absolute Auto 3.4 10^3/uL (1.4-6.5); Neutrophils Percent Auto 55.2 % (43.0-75.0); Platelet Count 252 10^3/uL (150-450); Red Blood Count 3.73 10^6/uL (4.20-5.40); Red Cell Distribution Width 14.2 % (11.0-15.0); White Blood Count 6.2 10^3/uL (4.0-11.0)
[2023-04-01 09:06] LABS: Alanine Aminotransferase 18 U/L (14-59); Albumin Globulin Ratio 0.7; Albumin Level 2.6 g/dL (3.4-5.0); Alkaline Phosphatase 87 U/L (46-116); Anion Gap 10.1; Aspartate Amino Transferase 15 U/L (15-37); BUN Creatinine Ratio 19.5; Bilirubin Total 0.4 mg/dL (0.2-1.0); Calcium 8.9 mg/dL (8.5-10.1); Carbon Dioxide 28.4 mmol/L (21.0-32.0); Chloride 106 mmol/L (98-107); Estimated GFR (African America >60 (>=60); Estimated GFR (Non-African Ame >60 (>=60); Globulin 3.6 g/dL; Glucose 222 mg/dL (74-106); Potassium 3.5 mmol/L (3.5-5.1); Sodium 141 mmol/L (136-145); Total Protein 6.2 g/dL (6.4-8.2)
== END 2023-04-01 02:16 | disposition home or self-care (01) ==
LOC: LAB 02:15
PROVIDERS: PCP Family Medicine; Visit Provider Nurse Practitioner Family
DX: R73.9 Hyperglycemia, unspecified (principal); R32 Unspecified urinary incontinence
CPT/HCPCS: 36415; 80053; 81003; 85025

== ENCOUNTER 2023-04-01 05:30 | Outpatient (REF) | payer MEDICARE, MEDICAID, SELFPAY ==
--- OUTSIDE RECORDS SUMMARY | 2023-04-02 08:48 | XMS_ITS | CCD ---
Author Name Unknown Address [address] [place] [address] Organization [facility] Care Team Providers Care Mine Wedge Sawyer Name Role Phone Unavailable Unavailable Mily Andrade Unavailable [phone] SALAS KIRKPATRICK Attending Unavailable SALAS KIRKPATRICK Admitting [...] MILY A Primary Care Unavailab le Andrade FORM PRESS OPERATOR-POWER PLANT MANAGER, Mily A Primary Care Pro vider ANGE [...] Drug Allergy 9 Hives, Other (See Comments) [facility] Medications Current Medications Medication Drug Class(es) [...] Active docusate sodium 50 mg / sennosides, penitentiary 8.6 mg oral tablet (2 sources) take [...] mg total) before bedtime. 0 Active sennosides, penitentiary 8.6 mg oral tablet (2 sources) Start: [...] [Coronary atherosclerosis of unspecified type of vessel, [place] or graft] Onset: 09-05-2020 Chronic Diabetes mellitus [...] width (RBC) [Ratio] 14.9 % Normal 11.5-15.0 [facility] Comment on above: Order Comment: Speci men Type: BLOOD SPECIMENOrdering Facility: [facility] Address: [address] [place] [address] Performed By: #### 5 8410-2 ####[facility] LABCLIA [id number] [facility] [id number] [place] [address] [place] Hematocrit (Bld) [Volume fraction] 37.0 % Normal 36.0-46.0 [facility] Comment on above: Order Comment: Speci men Type: BLOOD SPECIMENOrdering Facility: [facility] Address: [address] [place] [address] Performed By: #### 5 8410-2 ####[facility] LABIA [id number] [place] [address] [place] Hemoglobin (Bld) [Mass/Vol] 12.1 g/dL Normal 11.5-15.5 [facility] Comment on above: Order Comment: Speci men Type: BLOOD SPECIMENOrdering Facility: [facility] Address: [address] [place] [address] Performed By: #### 5 8410-2 ####[facility] [id number] [place] [address] [place] MCH (RBC) [Entitic mass] 29.4 pg Normal 26.0-34.0 [facility] Comment on above: Order Comment: Speci men Type: BLOOD SPECIMENOrdering Facility: [facility] Address: [address] [place] [address] Performed By: #### 5 8410-2 ####[facility] [id number] [place] [address] [place] MCHC (RBC) [Mass/Vol] 32.7 g/dL Normal 30.5-36.0 [facility] Comment on above: Order Comment: Speci men Type: BLOOD SPECIMENOrdering Facility: [facility] Address: [address] [place] [address] Performed By: #### 5 8410-2 ####[facility] LABWH[facility] [id number] [place] [address] [place] MCV (RBC) [Entitic vol] 90.0 fL Normal 80.0-100.0 [facility] Comment on above: Order Comment: Speci men Type: BLOOD SPECIMENOrdering Facility: [facility] Address: [address] [place] [address] Performed By: #### 5 8410-2 ####[facility] LABCLIA [id number] [place] [address] [place] Nucleated RBC (Bld) [#/Vol] 10*3/uL Normal <0.01 [facility] Comment on above: Order Comment: Speci men Type: BLOOD SPECIMENOrdering Facility: [facility] Address: [address] [place] [address] Performed By: #### 5 8410-2 ####[facility] LABIA [id number] [place] [address] [place] Platelet mean volume (Bld) [Entitic vol] 12.2 fL Normal 9.0-12.7 [facility] Comment on above: Order Comment: Speci men Type: BLOOD SPECIMENOrdering Facility: [facility] Address: [address] [place] [address] Performed By: #### 5 8410-2 ####[facility] LABIA [id number] [place] [address] [place] Platelets (Bld) [#/Vol] 157 10*3/uL Normal 150-400 [facility] Comment on above: Order Comment: Speci men Type: BLOOD SPECIMENOrdering Facility: [facility] Address: [address] [place] [address] Performed By: #### 5 8410-2 ####[facility] LABCLIA [id number] [place] [address] [place] RBC (Bld) [#/Vol] 4.11 10*6/uL Normal 3.90-5.20 [facility] Comment on above: Order Comment: Speci men Type: BLOOD SPECIMENOrdering Facility: [facility] Address: [address] [place] [address] Performed By: #### 5 8410-2 ####[facility] LABCLIA [id number] [place] [address] [place] WBC (Bld) [#/Vol] 3.70 10*3/uL Normal 3.70-11.00 [facility] Comment on above: Order Comment: Speci men Type: BLOOD SPECIMENOrdering Facility: [facility] Address: [address] [place] [address] Performed By: #### 5 8410-2 ####[facility] LABCLIA [id number] [place] [address] [place] CNOVon 03-25-2023 CNOV Office Visit (VASSMN ) LUCILA TINEO ([id number]) 1950 F Date Time Provider Department 03/25/23 9:15 AM BRO HAWK During your visit today, we recorded the following information about you: Pulse Blood pressure 104/minute 140/84 Bro Hawk MD 03/25/2023 11:09 AM [facility] [place] DEPARTMENT OF VASCULAR SURGERY OUTPATIENT VISIT DATE [...] w/irratic blood glucose(s) SHIRA (renal artery stenosis) ([facility]) 2 arteries partially occluded Thoracoabdominal aortic aneurysm (TAAA) ([facility]) PAST SURGICAL HISTORY Procedure Laterality Date APPENDECTOMY [...] Reactions Peni (more content not included)... Normal [facility] CT BRAIN WO IVCONon 03-25-19 CT BRAIN [...] administration for the CTA chest/abdomen/pelvis, degrading assessment. Job Analysis Manager (topogram) images: No additional findings. Post-operative change: [...] in the right posterior MCA and left STAMP COLLECTOR territories with associated encephalomalacic changes, and interval development of high attenuation along the cortical margins on the right and few areas of high attenuation in the left STAMP COLLECTOR territory. Findings most likely reflect gyriform enhancement [...] temporal lobe and stable adjacent vasogenic edema. Commercial Service Technician: PSCB Transcribe Date/Time: Mar 25 2023 12:10P Dictated by : KRISTINE SANDHU MD This examination was interpreted and the report reviewed and electronically signed by: KASSANDRA SAWYER MD on Mar 25 2023 12:53PM EST [id number] Normal [facility] CTA ABD/PELV WO/W IVCONon CTA ABD/PELV WO/W IVCON * * *Final Report* * * DATE OF EXAM: Mar 25 2023 10:28AM [facility] [place] [facility] 0467 - CTA ABD/PELV WO/W IVCON / [...] AORTIC DIMENSIONS: AORTIC ROOT: 3.3 cm measured nryuz-sr-jxsmm mid ASCENDING THORACIC AORTA: 3.7 cm mid [...] progression since 2020. No significant changes otherwise. Commercial Service Technician: МАРИНА Transcribe Date/Time: Mar 25 2023 12:00P Dictated by : SOHAM ALEMAN MD This examination was interpreted and the report reviewed and electronically signed by: SOHAM ALEMAN MD on Mar 25 2023 1:16PM EST [id number] Normal [facility] CTA CHEST (NONGATED) WO/W IV CONon 03-25-2023 CTA CHEST (NONGATED) WO/W IVCON * * *Final Report* * * DATE OF EXAM: Mar 25 2023 10:28AM [facility] [place] 0124 - CTA CHEST (NONGATED) WO/W IVCON [...] AORTIC DIMENSIONS: AORTIC ROOT: 3.3 cm measured tfqvx-sj-huvte mid ASCENDING THORACIC AORTA: 3.7 cm mid [...] progression since 2020. No significant changes otherwise. Commercial Service Technician: МАРИНА Transcribe Date/Time: Mar 25 2023 12:00P Dictated by : SOHAM ALEMAN MD This examination was interpreted and the report reviewed and electronically signed by: SOHAM ALEMAN MD on Mar 25 2023 1:16PM EST [id number] Normal [facility] Comprehensive metabolic 2000 panelon 03-25-2023 Albumin [Mass/Vol] 3.5 g/dL Low 3.9-4.9 [facility] Comment on above: Order Comment: Speci men Type: BLOOD SPECIMENOrdering Facility: [facility] Address: [address] [place] [address] Performed By: #### 2 4323-8 ####[facility] LABCLIA [id number] [place] [address] [place] ALP [Catalytic activity/Vol] 93 U/L Normal 34-123 [facility] Comment on above: Order Comment: Speci men Type: BLOOD SPECIMENOrdering Facility: [facility] Address: [address] [place] [address] Result Comment: Resu lts may be falsely decreased due to interference from hemolysis. Suggest reorder as clinically indicated. Performed By: #### 2 4323-8 ####[facility] LABCLIA [id number] [place] [address] [place] ALT [Catalytic activity/Vol] 21 U/L Normal 7-38 [facility] Comment on above: Order Comment: Speci men Type: BLOOD SPECIMENOrdering Facility: [facility] Address: [address] [place] [address] Result Comment: Resu lts may be falsely increased due to interference from hemolysis. Suggest reorder as clinically indicated. Performed By: #### 2 4323-8 ####[facility] LABCLIA [id number] [address] [place] Anion gap [Moles/Vol] 11 mmol/L Normal 9-18 [facility] Comment on above: Order Comment: Speci men Type: BLOOD SPECIMENOrdering Facility: [facility] Address: [address] [place] [address] Performed By: #### 2 4323-8 ####[facility] LABCLIA [id number] [address] [place] AST [Catalytic activity/Vol] 49 U/L High 13-35 [facility] Comment on above: Order Comment: Speci men Type: BLOOD SPECIMENOrdering Facility: [facility] Address: [address] [place] [address] Result Comment: Resu lts may be falsely increased due to interference from hemolysis. Suggest reorder as clinically indicated. Performed By: #### 2 4323-8 ####[facility] LABCLIA [id number] [place] [address] [place] Bilirubin [Mass/Vol] 0.4 mg/dL Normal 0.2-1.3 [facility] Comment on above: Order Comment: Speci men Type: BLOOD SPECIMENOrdering Facility: [facility] Address: [address] [place] [address] Performed By: #### 2 4323-8 ####[facility] LABCLIA [id number] [place] [address] [place] Calcium [Mass/Vol] 9.1 mg/dL Normal 8.5-10.2 [facility] Comment on above: Order Comment: Speci men Type: BLOOD SPECIMENOrdering Facility: [facility] Address: [address] [place] [address] Performed By: #### 2 4323-8 ####[facility] LABCLIA [id number] [place] [address] [place] Chloride [Moles/Vol] 101 mmol/L Normal 97-105 [facility] Comment on above: Order Comment: Speci men Type: BLOOD SPECIMENOrdering Facility: [facility] Address: [address] [place] [address] Performed By: #### 2 4323-8 ####[facility] LABCLIA [id number] [place] [address] [place] CO2 [Moles/Vol] 19 mmol/L Low 22-30 [facility] Comment on above: Order Comment: Speci men Type: BLOOD SPECIMENOrdering Facility: [facility] Address: [address] [place] [address] Performed By: #### 2 4323-8 ####[facility] LABCLIA [id number] [place] [address] [place] Creatinine [Mass/Vol] 0.60 mg/dL Normal 0.58-0.96 [facility] Comment on above: Order Comment: Speci men Type: BLOOD SPECIMENOrdering Facility: [facility] Address: [address] [place] [address] Performed By: #### 2 4323-8 ####[facility] LABCLIA [id number] [place] [address] [place] Creatinine and Glomerular filtration rate.predicted panel (S/P/Bld) 95 mL/min/1.73m??? Normal >=60 [facility] Comment on above: Order Comment: Speci men Type: BLOOD SPECIMENOrdering Facility: [facility] Address: [address] [place] [address] Result Comment: Janice mated Glomerular Filtration Rate [...] actual GFR. Performed By: #### 2 4323-8 ####[facility] LABCLIA [id number] [place] [address] [place] Glucose [Mass/Vol] 435 mg/dL High 74-99 [facility] Comment on above: Order Comment: Speci men Type: BLOOD SPECIMENOrdering Facility: [facility] Address: [address] [place] [address] Result Comment: The [place] Diabetes Association (ADA) provides guidance for cutoff [...] Standards of Medical Care in Diabetes 2016, [place] Diabetes Association. Diabetes Care. 2016.39(Suppl 1). Performed By: #### 2 4323-8 ####[facility] LABCLIA [id number] [place] [address] [place] Potassium [Moles/Vol] Normal [facility] Comment on above: Order Comment: Speci men Type: BLOOD SPECIMENOrdering Facility: [facility] Address: [address] [place] [address] Result Comment: Unab le to assay due to interference from hemolysis. Suggest reorder as clinically indicated. Performed By: #### 2 4323-8 ####[facility] LABCLIA [id number] [place] [address] [place] Protein [Mass/Vol] 6.7 g/dL Normal 6.3-8.0 [facility] Comment on above: Order Comment: Speci men Type: BLOOD SPECIMENOrdering Facility: [facility] Address: [address] [place] [address] Result Comment: Resu lts may be falsely increased due to interference from hemolysis. Suggest reorder as clinically indicated. Performed By: #### 2 4323-8 ####[facility] LABIA [id number] [place] [address] [place] Sodium [Moles/Vol] 131 mmol/L Low 136-144 [facility] Comment on above: Order Comment: Speci men Type: BLOOD SPECIMENOrdering Facility: [facility] Address: [address] [place] [address] Performed By: #### 2 4323-8 ####[facility] LABIA [id number] [place] [address] [place] Urea nitrogen [Mass/Vol] 16 mg/dL Normal 7-21 [facility] Comment on above: Order Comment: Speci men Type: BLOOD SPECIMENOrdering Facility: [facility] Address: [address] [place] [address] Performed By: #### 2 4323-8 ####[facility] LABIA [id number] [place] [address] [place] ECG COMPLETEon 03-25-2023 ECG COMPLETE Ventricular Rate : 8 9 BPM Atrial Rate : 89 BPM P-R Interval : 146 ms QRS Duration : 72 ms Q-T Interval : 370 ms QTC Calculation(Bazett) : 450 ms Calculated P Lawler : 21 degrees Calculated R Lawler : -6 degrees Calculated T Lawler : 3 degrees NORMAL SINUS RHYTHM . BORDERLINE ECG Confirmed by DO CHRISTINE BRUCE ([id number]), desk editor YONY CHRIS ([id number]) on 03/27/2023 9:35:29 AM NAME : LUCILA TINEO PID : [id number] : 1950 Gender : Female Race : ORD : [id number] Procedure Date : Mar 25 2023 11:38:10 Edit Date : Mar 27 2023 09:35:30 Diagnosis: NORMAL SINUS RHYTHM . BORDERLINE ECG Confirmed by DO CHRISTINE BRUCE ([id number]), desk editor YONY CHRIS ([id number]) on 03/27/2023 9:35:29 AM Test Reason : Chest Pain Location : 2 : EDNS E018 Overread By : DO CHRISTINE BRUCE Edited By : YONY CHRIS Referred By : , Acquired by : Nicky MATHEWS [facility] ED NOTEon 03-25-2023 ED NOTE HNO ID: [id number] Author: SEPIDEH DE DIOS Medic Service: Emergency Medicine Author Type: Rig Manager and Candy Rolling Machine Operator Type: ED Notes Filed: 03/25/2023 16:57 Note Text: 3rd trop sent via straight stick in left hand [facility] ED NOTE HNO ID: [id number] Author: ESTHELA RAMAN RN Service: ? Author Type: Registered Nurse Type: ED Notes Filed: 03/25/2023 11:23 Note Text: Bed: E18-11 Expected date: Expected time: Means of arrival: Comments: HUGO Saunders [facility] ED PROV NOTEon 03-25-2023 ED PROV NOTE HNO ID: [id number] Author: EDWARD CHRISTINE DO Service: Emergency Medicine [...] w/irratic blood glucose(s) SHIRA (renal artery stenosis) ([facility]) 2 arteries partially occluded Thoracoabdominal aortic aneurysm (TAAA) ([facility]) PAST SURGICAL HISTORY Procedure Laterality Date APPENDECTOMY [...] pain, unspecified type Coronary artery disease involving [place] coronary artery of [place] heart without angina pectoris Uncontrolled type 2 [...] emergency depar (more content not included)... Normal [facility] HIGH SENSITIVITY TROPONIN T (INITIAL)on 03-25-2023 Troponin T.cardiac High sensitivity method [Mass/Vol] 18 ng/L High <12 [facility] Comment on above: Order Comment: Speci men Type: BLOOD SPECIMENOrdering Facility: [facility] Address: [address], [place] [address] Result Comment: When assessing risk for acute [...] 30 day MACE. Performed By: #### L [id number] ####[facility] LABCLIA [id number] HIGH SENSITIVITY TROPONIN T (SECOND)on 03-25-2023 Troponin T.cardiac High sensitivity method [Mass/Vol] 17 ng/L High <12 [facility] Comment on above: Order Comment: Letty sanchez Type: BLOOD SPECIMENOrdering Facility: [facility] Address: [address] [place] [address] Result Comment: When assessing risk for acute [...] 30 day MACE. Performed By: #### L [id number] ####[facility] LABCLIA [id number] HIGH SENSITIVITY TROPONIN T (THIRD) 3 HRS AFTER INITIALon 03-25-2023 Troponin T.cardiac High sensitivity method [Mass/Vol] 18 ng/L High <12 [facility] Comment on above: Order Comment: Letty sanchez Type: BLOOD SPECIMENOrdering Facility: [facility] Address: [address] [place] [address] Result Comment: When assessing risk for acute [...] 30 day MACE. Performed By: #### L [id number] ####[facility] LABCLIA [id number] [facility] XR CHEST 2V FRONTAL/LATon XR CHEST 2V [...] since 09/20/20 most concerning for neoplasm Emphysema Commercial Service Technician: МАРИНА Transcribe Date/Time: Mar 25 2023 12:49P Dictated by : KHLOE GAYLE MD This examination was interpreted and the report reviewed and electronically signed by: KHLOE GAYLE MD on Mar 25 2023 1:04PM EST [id number] Normal [facility] CNPN Telephone (PODCCP) LUCILA TINEO ([id number]) 1950 F Date Time Provider Department 03/13/23 DARRYL SAUER PODCCP During your visit today, we recorded the following information about you: Darryl Sauer, RN 03/13/2023 3:39 PM Signed Reason for call: Mila called and she would like to schedule an appointment for Lucila with Dr Hawk. Looking for a Thursday apt. Contact Name: Mila Kramer Home and cell number: [phone] Diagnosis: TAAA. Rapid new growth Kind RegardsDarryl [...] Encounter Status:Closed by DARRYL SAUER on 03/13/23 [facility] LUCIL[facility] TINE[facility] ([id number]) 1950 F Date Time Provider Department 01/02/23 JAH SHARPE [facility] During your visit today, we recorded [...] Mila Kramer returned call - please call [phone]. [address] Vogt, SHREYA 01/07/2023 12:43 PM Signed Attempted to return call, voice mail left for daughter with office number to return call to this office at her convenience. Jenny Moreno 01/07/2023 2:14 PM Signed Please call daughter back at [phone]. Until 4pm. 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 no, who is the referring provider : Osei Roe [employer] [facility], [place]/His direct office number if any questions: [phone] Is this a direct referral? yes neurosurgeon Have you been recommended for surgery or procedure? Yes. coiling Are you seeking a second opinion? Yes. Do you have a MRI/MRA/CT/Ultrasound for this diagnosis? Yes. Type of imaging CT's, name/address of facility where completed [facility]. [Only has reports in folder, no [...] 2:22 PM Addendum OSH imaging/records received from [facility]: December 04, [address] Roe Progress Notes scanned to chart. PENDING: -2022 Imaging -Medical Hx AND Imaging Reports Walked discs over to imaging library + gave to Adry to upload MAGDALENE. Successfully sent CARRI AND [employer]ex overnight label via [employer]~ Tracking#[id number] December 05, 2022 10:30 AM 07 [employer]Ex Priority Overnight? $14.14 From: Theresa Andre Last change on 12/04/2022 12:16:46 pm Sent on 12/04/2022 12:16:33 pm Completed Tonja Andre 12/09/2022 2:25 PM Addendum OSH imaging/records received from [facility]: December 08, [address] Roe Progress [...] 100 unit (more content not included)... Normal [facility] SCREENING MAMMOGRAM W/SAULO, BILATERAL*on 04-24-2022 SCREENING MAMMOGRAM [...] VERY IMPORTANT TO YOUR HEALTH. THE CURRENT [employer] GUIDELINES RECOMMENDS ANNUAL MAMMOGRAPHY BEGINNING AT AGE 40 THIS FACILITY USES A REMINDER SYSTEM TO ENSURE ALL PATIENTS RECEIVE REMINDER NOTIFICATIONS AT THE APPROPRIATE TIME BASED ON THE RECOMMENDATIONS OF THIS EXAM. Report reported and signed by Silviano Roth on 04/25/2022 0759 Normal [facility] Senior Biostatistician Office Visit (Cardiology)on 12-11-2021 Follow-up visit Diagnoses/Problems [...] Aminotransferase, Serum; Status:Active - Retrospective Authorization; Requested for:[id number]; AST; Status:Active - Retrospective Authorization; Requested for:11Dec2021; Lipid Panel; Status:Active - Retrospective Authorization; Requested for:14Pcg4630; CAD (coronary artery disease), HLD (hyperlipidemia), Hypertension Basic Metabolic Panel; Status:Active - Retrospective Authorization; Requested for:11Dec2021; Overweight with body mass index (BMI) of 27 to 27.9 in adult Healthy Weight Tips; Status:Complete - Retrospective Authorization; Done: [id number] Some eating tips that can help you [...] we can help. You may also call 1-524-ZICHNOW for free resources and assistance.; Status:Complete - [...] Recorded: 11Dec2021 11:20AM Heart Rate76, L Radial Yvkznhhi476, LUE, Sitting Sqvykpnzv04, LUE, Sitting Height5 ft 4 in Yczjat709 lb BMI Nwemoetrwh95.98 kg/m2 BSA Calculated1.79 Tobacco Usea) Yes Patient encouraged to stop using tobacco productsYes PHQ-2 #1. Over the last 2 weeks have you felt down, depressed or hopeless? (If yes, answer PHQ-9 below)No PHQ-2 #2. Over the last 2 weeks have you felt little interest or pleasure in doing things? (If yes, answer PHQ-9 below)No Fa (more content not included)... Normal [employer] Tobacco Screening.on 022 Adult depression screening assessment No [facility] [employer] 250 DO Work Phone: Fall risk assessment b) One or more fall s in the last year [facility] [employer] 250 DO Work Phone: Tobacco use status [facility] a) Yes [facility] [employer] 250 DO Work Phone: Tobacco Screening. Yes [facility] Heart-Jayden Correa DO Work Phone: XR Spine Lumbar Complete w/F tyrone AND [place] 11-18-2021 XR Spine Lumbar Complete w/Flex AND [...] by Silviano Roth on 11/18/2021 1519 Normal [facility] Senior Biostatistician US Venous, Bilateral, Lower [place] 10-02-2021 US Venous, Bilateral, Lower Ext FINDINGS: [...] by Silviano Roth on 10/03/2021 0652 Normal [facility] Senior Biostatistician Office Visit (Cardiology)on 02-05-2021 Follow-up visit Diagnoses/Problems Assessed Hypertension (401.9) (I10) Remains suboptimal CAD (coronary artery disease) (414.00) (I25.10) July 2020 ACS admit 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 GUEST ATTENDANT in 2 weeks Adhering to 2017 AHA/ACC [...] hospitalized overnight and treated with infusion. 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 due to minimally elevated troponin. Fully [...] smoker (305.1) (more content not included)... Normal [employer] Tobacco Screening.on Fall risk assessment a) No falls within the last year [facility] 250 DO Work Phone: Tobacco use status [facility] a) Yes [facility] 250 DO Work Phone: Tobacco Screening. Yes [facility] 250 DO Work Phone: Tobacco Screening.on Fall risk assessment a) No falls within the last year [facility] 600 DO Work Phone: Tobacco use status [facility] a) Yes -[facility] 600 DO Work Phone: Tobacco Screening. Yes -[facility] 600 DO Work Phone: Comprehensive Metabolic Pane dom 08-08-2020 Albumin [Mass/Vol] 3.1 g/dL Low 3.2-5.5 [facility] Comment on above: Performed By: #### C MP #### [address] Albumin/Globulin [Mass ratio] 0.9 {ratio} Normal [facility] Comment on above: Performed By: #### C MP #### [address] ALP [Catalytic activity/Vol] 98 U/L High 32-92 [facility] Comment on above: Performed By: #### C MP #### [facility] [address] [place] [address] ALT [Catalytic activity/Vol] 17 U/L Normal 10-60 [facility] Comment on above: Performed By: #### C MP #### [address] AST [Catalytic activity/Vol] 24 U/L Normal 10-42 [facility] Comment on above: Performed By: #### C MP #### [facility] [address] [place] [address] [place] Bilirubin [Mass/Vol] 0.6 mg/dL Normal 0.3-1.2 [facility] Comment on above: Performed By: #### C MP #### [facility] [address] [place] [address] [place] Calcium [Mass/Vol] 8.8 mg/dL Normal 8.2-10.2 [facility] Comment on above: Performed By: #### C MP #### [place] [address] [place] Chloride [Moles/Vol] 103 mmol/L Normal 95-114 [facility] Comment on above: Performed By: #### C MP #### [facility] [address] CO2 [Moles/Vol] 20.4 mmol/L Low 22.0-30.0 [facility] Comment on above: Performed By: #### C MP #### [facility] [address] Creatinine [Mass/Vol] 1.06 mg/dL High 0.44-1.03 [facility] Comment on above: Performed By: #### C MP #### [facility] [address] Creatinine Clr Calc Pharmacy 49.44 [facility] Comment on above: Result Comment: PERF ORMED BY: [place] [address] PATHOLOGIST INCIDENT RESPONSE MANAGER DOMINGA SOLIMAN M.D. Performed By: #### C MP #### [address] Estimated GFR ( Grace > 60 [facility] Comment on above: Result Comment: GFR estimated reference range: According to KDOQI guidelines, <60 ml/min/1.73m2 is sufficient to diagnose a patient with chronic kidney disease. Performed By: #### C MP #### [address] Estimated GFR (Non- Am 51 [facility] Comment on above: Performed By: #### C MP #### [address] Globulin (S) [Mass/Vol] 3.3 g/dL [facility] Comment on above: Performed By: #### C MP #### [address] Glucose [Mass/Vol] 282 mg/dL High 70-100 [facility] Comment on above: Result Comment: Ray Glucose Reference Range is dependent on time and content of last meal. Glucose of more than 200 mg/dL in a nonstressed, ambulatory subject supports the diagnosis of Diabetes Mellitus. ADA recommended reference range Performed By: #### C MP #### [facility] [address] Potassium [Moles/Vol] 4.5 mmol/L Normal 3.5-5.1 [facility] Comment on above: Performed By: #### C MP #### [facility] [address] [place] [id number] [facility] Protein [Mass/Vol] 6.4 g/dL Normal 6.1-7.9 [facility] Comment on above: Performed By: #### C MP #### [facility] [address] Sodium [Moles/Vol] 134 mmol/L Low 136-146 [facility] Comment on above: Performed By: #### C MP #### [facility] [address] Urea nitrogen [Mass/Vol] 29 mg/dL High 9-23 [facility] Comment on above: Performed By: #### C MP #### [facility] [address] ECG 12 lead ECGon 08-08-2020 ECG 12 lead ECG [facility] Main [place] [address] [place] [address] Electrocardiograph Report Signed Patient: Lucila Tineo MR#: [id number] : 1950 Acct:[id number] Age/Sex: 70 / F ADM Date: 08/06/20 Loc: Room: [address] [place] [address] Type: ADM IN Attending Dr: Drew Patterson [...] MD 08/08/20 0734 Signed By: 08/08/20 1017 [facility] Glucose Poct Glucometerson 0 08-08-2020 Commemt1 Glu2: Cleaned Meter [facility] Comment on above: Result Comment: PERF ORMED BY: [place] [address] PATHOLOGIST INCIDENT RESPONSE MANAGER DOMINGA SOLIMAN M.D. Performed By: #### P T, CBC, PTT #### [place] [address] [place] Glucose [Mass/Vol] 354 mg/dL Normal [facility] Comment on above: Result Comment: Ray om Glucose Reference Range is dependent on time and content of last meal. Glucose of more than 200 mg/dL in a nonstressed, ambulatory subject supports the diagnosis of Diabetes Mellitus. Performed By: #### P T, CBC, PTT #### [place] [address] [place] Commemt1 Glu2: Cleaned Meter [facility] Comment on above: Result Comment: PERF ORMED BY: [place] [address] PATHOLOGIST INCIDENT RESPONSE MANAGER DOMINGA SOLIMAN M.D. Performed By: #### P T, CBC, PTT #### [place] [id number] [place] Glucose [Mass/Vol] 380 mg/dL Normal [facility] Comment on above: Result Comment: Ray om Glucose Reference Range is dependent on time and content of last meal. Glucose of more than 200 mg/dL in a nonstressed, ambulatory subject supports the diagnosis of Diabetes Mellitus. Performed By: #### P T, CBC, PTT #### [place] [id number] [place] Glucose [Mass/Vol] 80 mg/dL [facility] Comment on above: Result Comment: [facility] Glucose Reference Range is dependent on time and content of last meal. Glucose of more than 200 mg/dL in a nonstressed, ambulatory subject supports the diagnosis of Diabetes Mellitus. PERFORMED BY: [address] [place] [address] PATHOLOGIST INCIDENT RESPONSE MANAGER DOMINGA SOLIMAN M.D. Performed By: #### P T, CBC, PTT #### [address] Commemt1 [facility] Comment on above: Result Comment: Glu2 : FOLLOW HYPOGLYCEMIC Performed By: #### P T, CBC, PTT #### [address] Commemt2 Cleaned Meter [facility] Comment on above: Performed By: #### P T, CBC, PTT #### [address] Commemt3 WILL NOTIFY DR/RN [facility] Comment on above: Result Comment: PERF ORMED BY: [place] [address] PATHOLOGIST INCIDENT RESPONSE MANAGER DOMINGA SOLIMAN M.D. Performed By: #### P T, CBC, PTT #### [address] Glucose [Mass/Vol] 42 mg/dL Off scale low [facility] Comment on above: Result Comment: [facility] Glucose Reference Range is dependent on time and content of last meal. Glucose of more than 200 mg/dL in a nonstressed, ambulatory subject supports the diagnosis of Diabetes Mellitus. Performed By: #### P T, CBC, PTT #### [facility] [address] [place] [address] Troponin I(TnI)on 08-08-2020 Troponin I.cardiac [Mass/Vol] 2.45 ng/mL Off scale high 0-0.02 [facility] Comment on above: Result Comment: KRISTI [place] Cut off value > or equal to 0.03 ng/mL in conjunction with clinical conditions of myocardial infarction. (www.escardio.org/guidelines) PERFORMED BY: [address] [place] [address] PATHOLOGIST INCIDENT RESPONSE MANAGER DOMINGA SOLIMAN M.D. Performed By: #### T ROP #### [place] [address] [place] A1C with Estimated Average G [facility] 08-07-2020 Glucose [Mass/Vol] 183 mg/dL Normal [facility] Comment on above: Result Comment: PERF ORMED BY: [address] [place] [address] PATHOLOGIST INCIDENT RESPONSE MANAGER DOMINGA SOLIMAN M.D. Performed By: #### G LULS #### Point of Care testing , HbA1c (Bld) [Mass fraction] 8.0 % High 4.3-5.6 [facility] Comment on above: Result Comment: Incr eased risk for diabetes: 5.7 - 6.4 diabetes: >6.4 glycemic control for adults with diabetes: <7.0 Performed By: #### G LULS #### Point of Care testing , Complete Blood Count Auto Di ffon 08-07-2020 Basophils (Bld) [#/Vol] 0.1 10*3/uL Normal 0.0-0.2 [facility] Comment on above: Result Comment: PERF ORMED BY: [address] [place] [address] PATHOLOGIST INCIDENT RESPONSE MANAGER DOMINGA SOLIMAN M.D. Performed By: #### G LULS #### Point of Care testing , Basophils/100 WBC (Bld) 1.4 % Normal . [facility] Comment on above: Performed By: #### G LULS #### Point of Care testing , Eosinophils (Bld) [#/Vol] 0.1 10*3/uL Normal 0.0-0.45 [facility] Comment on above: Performed By: #### G LULS #### Point of Care testing , Eosinophils/100 WBC (Bld) 2.6 % Normal . [facility] Comment on above: Performed By: #### G SHANEKA #### Point of Care testing , Erythrocyte distribution width (RBC) [Ratio] 15.6 % High 11.9-15.3 [facility] Comment on above: Performed By: #### G ARVINDLS #### Point of Care testing , Hematocrit (Bld) [Volume fraction] 39.8 % Normal 34.0-46.4 [facility] Comment on above: Performed By: #### G ARVINDLS #### Point of Care testing , Hemoglobin (Bld) [Mass/Vol] 13.8 g/dL Normal 11.8-15.4 [facility] Comment on above: Performed By: #### G SHANEKA #### Point of Care testing , Lymphocytes (Bld) [#/Vol] 1.5 10*3/uL Normal 1.00-4.8 [facility] Comment on above: Performed By: #### G SHANEKA #### Point of Care testing , Lymphocytes/100 WBC (Bld) 26.4 % Normal . [facility] Comment on above: Performed By: #### G SHANEKA #### Point of Care testing , MCH (RBC) [Entitic mass] 30.9 pg Normal 24.7-34.3 [facility] Comment on above: Performed By: #### [place] SAMUELSLS #### Point of Care testing , MCV (RBC) [Entitic vol] 89.0 fL Normal 80-100 [facility] Comment on above: Performed By: #### [place] SAMUELSLS #### Point of Care testing , Mean Corpuscular HGB Conc 34.8 g/dL Normal 32.0-35.0 [facility] Comment on above: Performed By: #### G SHANEKA #### Point of Care testing , Monocytes (Bld) [#/Vol] 0.4 10*3/uL Normal 0.0-0.8 [facility] Comment on above: Performed By: #### G SHANEKA #### Point of Care testing , Monocytes/100 WBC (Bld) 7.0 % Normal . [facility] Comment on above: Performed By: #### [place] MUNROE #### Point of Care testing , Neutrophils (Bld) [#/Vol] 3.6 10*3/uL Normal 1.8-7.7 [facility] Comment on above: Performed By: #### G SHANEKA #### Point of Care testing , Neutrophils/100 WBC (Bld) 62.6 % Normal . [facility] Comment on above: Performed By: #### G SHANEKA #### Point of Care testing , Nucleated RBC/100 WBC (Bld) [Ratio] 0.4 % Normal 0-0.5 [facility] Comment on above: Performed By: #### G SHANEKA #### Point of Care testing , Platelet mean volume (Bld) [Entitic vol] 9.1 fL Normal 6.3-10.7 [facility] Comment on above: Performed By: #### G SHANEKA #### Point of Care testing , Platelets (Bld) [#/Vol] 201 10*3/uL Normal 150-450 [facility] Comment on above: Performed By: #### G SHANEKA #### Point of Care testing , RBC (Bld) [#/Vol] 4.47 10*6/uL Normal 3.60-5.00 [facility] Comment on above: Performed By: #### G SHANEKA #### Point of Care testing , WBC (Bld) [#/Vol] 5.7 10*3/uL Normal 4.5-11.0 [facility] Comment on above: Performed By: #### G SHANEKA #### Point of Care testing , Basophils (Bld) [#/Vol] 0.1 10*3/uL Normal 0.0-0.2 [facility] Comment on above: Result Comment: PERF ORMED BY: [place] [address] PATHOLOGIST INCIDENT RESPONSE MANAGER DOMINGA SOLIMAN M.D. Performed By: #### P T, CBC, PTT #### [facility] [address] Basophils/100 WBC (Bld) 0.7 % Normal . [facility] Comment on above: Performed By: #### P T, CBC, PTT #### [facility] [address] Eosinophils (Bld) [#/Vol] 0.1 10*3/uL Normal 0.0-0.45 [facility] Comment on above: Performed By: #### P T, CBC, PTT #### [address] Eosinophils/100 WBC (Bld) 1.5 % Normal . [facility] Comment on above: Performed By: #### P T, CBC, PTT #### [address] Erythrocyte distribution width (RBC) [Ratio] 15.4 % High 11.9-15.3 [facility] Comment on above: Performed By: #### P T, CBC, PTT #### [address] Hematocrit (Bld) [Volume fraction] 41.4 % Normal 34.0-46.4 [facility] Comment on above: Performed By: #### P T, CBC, PTT #### [address] Hemoglobin (Bld) [Mass/Vol] 14.0 g/dL Normal 11.8-15.4 [facility] Comment on above: Performed By: #### P T, CBC, PTT #### [address] Lymphocytes (Bld) [#/Vol] 2.0 10*3/uL Normal 1.00-4.8 [facility] Comment on above: Performed By: #### P T, CBC, PTT #### [place] [address] [place] Lymphocytes/100 WBC (Bld) 30.1 % Normal . [facility] Comment on above: Performed By: #### P T, CBC, PTT #### [address] MCH (RBC) [Entitic mass] 30.4 pg Normal 24.7-34.3 [facility] Comment on above: Performed By: #### P T, CBC, PTT #### [facility] [address] MCV (RBC) [Entitic vol] 89.6 fL Normal 80-100 [facility] Comment on above: Performed By: #### P T, CBC, PTT #### [facility] [address] Mean Corpuscular HGB Conc 33.9 g/dL Normal 32.0-35.0 [facility] Comment on above: Performed By: #### P T, CBC, PTT #### [facility] [address] Monocytes (Bld) [#/Vol] 0.4 10*3/uL Normal 0.0-0.8 [facility] Comment on above: Performed By: #### P T, CBC, PTT #### [facility] [address] Monocytes/100 WBC (Bld) 6.4 % Normal . [facility] Comment on above: Performed By: #### P T, CBC, PTT #### [facility] [address] Neutrophils (Bld) [#/Vol] 4.2 10*3/uL Normal 1.8-7.7 [facility] Comment on above: Performed By: #### P T, CBC, PTT #### [facility] [address] Neutrophils/100 WBC (Bld) 61.3 % Normal . [facility] Comment on above: Performed By: #### P T, CBC, PTT #### [facility] [address] Nucleated RBC/100 WBC (Bld) [Ratio] 0.1 % Normal 0-0.5 [facility] Comment on above: Performed By: #### P T, CBC, PTT #### [facility] [address] Platelet mean volume (Bld) [Entitic vol] 8.9 fL Normal 6.3-10.7 [facility] Comment on above: Performed By: #### P T, CBC, PTT #### [facility] [address] Platelets (Bld) [#/Vol] 197 10*3/uL Normal 150-450 [facility] Comment on above: Performed By: #### P T, CBC, PTT #### [facility] [address] RBC (Bld) [#/Vol] 4.62 10*6/uL Normal 3.60-5.00 [facility] Comment on above: Performed By: #### P T, CBC, PTT #### [facility] [address] WBC (Bld) [#/Vol] 6.8 10*3/uL Normal 4.5-11.0 [facility] Comment on above: Performed By: #### P T, CBC, PTT #### [facility] [address] [place] [address] Comprehensive Metabolic Pane dom 08-07-2020 Albumin [Mass/Vol] 3.4 g/dL Normal 3.2-5.5 [facility] Comment on above: Performed By: #### G ARVINDLS #### Point of Care testing , Albumin/Globulin [Mass ratio] 1.0 {ratio} Normal [facility] Comment on above: Performed By: #### G SHANEKA #### Point of Care testing , ALP [Catalytic activity/Vol] 107 U/L High 32-92 [facility] Comment on above: Performed By: #### G LULS #### Point of Care testing , ALT [Catalytic activity/Vol] 17 U/L Normal 10-60 [facility] Comment on above: Performed By: #### G ARVINDLS #### Point of Care testing , AST [Catalytic activity/Vol] 25 U/L Normal 10-42 [facility] Comment on above: Performed By: #### G LULS #### Point of Care testing , Bilirubin [Mass/Vol] 0.9 mg/dL Normal 0.3-1.2 [facility] Comment on above: Performed By: #### G ARVINDLS #### Point of Care testing , Calcium [Mass/Vol] 9.1 mg/dL Normal 8.2-10.2 [facility] Comment on above: Performed By: #### G LULS #### Point of Care testing , Chloride [Moles/Vol] 105 mmol/L Normal 95-114 [facility] Comment on above: Performed By: #### G LULS #### Point of Care testing , CO2 [Moles/Vol] 20.9 mmol/L Low 22.0-30.0 [facility] Comment on above: Performed By: #### G LULS #### Point of Care testing , Creatinine [Mass/Vol] 0.96 mg/dL Normal 0.44-1.03 [facility] Comment on above: Performed By: #### G LULS #### Point of Care testing , Creatinine Clr Calc Pharmacy 54.35 [facility] Comment on above: Performed By: #### G LULS #### Point of Care testing , Estimated GFR ( Grace > 60 [facility] Comment on above: Result Comment: GFR estimated reference range: According to KDOQI guidelines, <60 ml/min/1.73m2 is sufficient to diagnose a patient with chronic kidney disease. Performed By: #### G LULS #### Point of Care testing , Estimated GFR (Non- Am 57 [facility] Comment on above: Performed By: #### G LULS #### Point of Care testing , Globulin (S) [Mass/Vol] 3.5 g/dL [facility] Comment on above: Performed By: #### G LULS #### Point of Care testing , Glucose [Mass/Vol] 391 mg/dL High 70-100 [facility] Comment on above: Result Comment: Ray Glucose Reference Range is dependent on time and content of last meal. Glucose of more than 200 mg/dL in a nonstressed, ambulatory subject supports the diagnosis of Diabetes Mellitus. ADA recommended reference range Performed By: #### G LULS #### Point of Care testing , Potassium [Moles/Vol] 4.4 mmol/L Normal 3.5-5.1 [facility] Comment on above: Performed By: #### [place] MUNROE #### Point of Care testing , Protein [Mass/Vol] 6.9 g/dL Normal 6.1-7.9 [facility] Comment on above: Performed By: #### [place] MUNROE #### Point of Care testing , Sodium [Moles/Vol] 136 mmol/L Normal 136-146 [facility] Comment on above: Performed By: #### [place] MUNROE #### Point of Care testing , Urea nitrogen [Mass/Vol] 19 mg/dL Normal 9-23 [facility] Comment on above: Performed By: #### [place] MUNROE #### Point of Care testing , Albumin [Mass/Vol] 3.4 g/dL Normal 3.2-5.5 [facility] Comment on above: Performed By: #### [place] MUNROE #### Point of Care testing , Albumin/Globulin [Mass ratio] 0.9 {ratio} Normal [facility] Comment on above: Performed By: #### [place] MUNROE #### Point of Care testing , ALP [Catalytic activity/Vol] 100 U/L High 32-92 [facility] Comment on above: Performed By: #### [place] MUNROE #### Point of Care testing , ALT [Catalytic activity/Vol] 17 U/L Normal 10-60 [facility] Comment on above: Performed By: #### [place] MUNROE #### Point of Care testing , AST [Catalytic activity/Vol] 34 U/L Normal 10-42 [facility] Comment on above: Performed By: #### [place] MUNROE #### Point of Care testing , Bilirubin [Mass/Vol] 0.8 mg/dL Normal 0.3-1.2 [facility] Comment on above: Performed By: #### [place] MUNROE #### Point of Care testing , Calcium [Mass/Vol] 9.2 mg/dL Normal 8.2-10.2 [facility] Comment on above: Performed By: #### G LULS #### Point of Care testing , Chloride [Moles/Vol] 104 mmol/L Normal 95-114 [facility] Comment on above: Performed By: #### G LULS #### Point of Care testing , CO2 [Moles/Vol] 20.0 mmol/L Low 22.0-30.0 [facility] Comment on above: Performed By: #### G LULS #### Point of Care testing , Creatinine [Mass/Vol] 0.95 mg/dL Normal 0.44-1.03 [facility] Comment on above: Performed By: #### G LULS #### Point of Care testing , Creatinine Clr Calc Pharmacy 55.10 [facility] Comment on above: Result Comment: PERF ORMED BY: [facility] [address] [place] [address] PATHOLOGIST INCIDENT RESPONSE MANAGER DOMINGA SOLIMAN M.D. Performed By: #### G LULS #### Point of Care testing , Estimated GFR ( Grace > 60 [facility] Comment on above: Result Comment: GFR estimated reference range: According to KDOQI guidelines, <60 ml/min/1.73m2 is sufficient to diagnose a patient with chronic kidney disease. Performed By: #### G LULS #### Point of Care testing , Estimated GFR (Non- Am 58 [facility] Comment on above: Performed By: #### G LULS #### Point of Care testing , Globulin (S) [Mass/Vol] 3.6 g/dL [facility] Comment on above: Performed By: #### G LULS #### Point of Care testing , Glucose [Mass/Vol] 271 mg/dL High 70-100 [facility] Comment on above: Result Comment: Ray Glucose Reference Range is dependent on time and content of last meal. Glucose of more than 200 mg/dL in a nonstressed, ambulatory subject supports the diagnosis of Diabetes Mellitus. ADA recommended reference range Performed By: #### G LULS #### Point of Care testing , Potassium [Moles/Vol] 4.0 mmol/L Normal 3.5-5.1 [facility] Comment on above: Performed By: #### G LULS #### Point of Care testing , Protein [Mass/Vol] 7.0 g/dL Normal 6.1-7.9 [facility] Comment on above: Performed By: #### G LULS #### Point of Care testing , Sodium [Moles/Vol] 136 mmol/L Normal 136-146 [facility] Comment on above: Performed By: #### G LULS #### Point of Care testing , Urea nitrogen [Mass/Vol] 15 mg/dL Normal 9-23 [facility] Comment on above: Performed By: #### G LULS #### Point of Care testing , [facility] echo transthoracicon [facility] echo transthoracic [facility] Main [place] [address] [place] [address] Echocardiogram Signed Patient: Lucila Tineo MR#: [id number] : 1950 Acct:[id number] Age/Sex: 70 / F ADM Date: 08/06/20 Loc: Room: [address] [place] [address] Type: ADM IN Attending Dr: Drew Patterson MD Ordering Provider: Bravo Abdi MD Date of Service: 08/06/20 [facility] echo transthoracic: NSTEMI, wall motion abnormalities Copies to: MD Cory Del Toro MD, LOCATED [facility] Height: 64 in Weight: 167 [...] DELANO 08/07/201126 Dictated By: Cory Rudd MD, [facility] 08/07/20 0927 Signed By: 08/07/20 1127 [facility] Glucose Poct Glucometerson 0 08-07-2020 Commemt3 Cleaned Meter [facility] Comment on above: Result Comment: PERF ORMED BY: [facility] [address] [place] [address] PATHOLOGIST INCIDENT RESPONSE MANAGER DOMINGA SOLIMAN M.D. Performed By: #### G LULS #### Point of Care testing , Glucose [Mass/Vol] 503 mg/dL Off scale [facility] Comment on above: Result Comment: [facility] Glucose Reference Range is dependent on time and content of last meal. Glucose of more than 200 mg/dL in a nonstressed, ambulatory subject supports the diagnosis of Diabetes Mellitus. Performed By: #### G LULS #### Point of Care testing , Commemt1 Glu2: Cleaned Meter [facility] Comment on above: Result Comment: PERF ORMED BY: [place] [address] PATHOLOGIST INCIDENT RESPONSE MANAGER DOMINGA SOLIMAN M.D. Performed By: #### G LULS #### Point of Care testing , Glucose [Mass/Vol] 299 mg/dL [facility] Comment on above: Result Comment: Ray om Glucose Reference Range is dependent on time and content of last meal. Glucose of more than 200 mg/dL in a nonstressed, ambulatory subject supports the diagnosis of Diabetes Mellitus. Performed By: #### G LULS #### Point of Care testing , Commemt1 [facility] Comment on above: Result Comment: Glu2 : Will Repeat Test Performed By: #### G LULS #### Point of Care testing , Result Comment: Glu2 : WILL NOTIFY DR/RN Commemt2 Cleaned Meter [facility] Comment on above: Result Comment: PERF ORMED BY: [place] [address] PATHOLOGIST INCIDENT RESPONSE MANAGER DOMINGA SOLIMAN M.D. Performed By: #### G LULS #### Point of Care testing , Glucose [Mass/Vol] 429 mg/dL Off scale [facility] Comment on above: Result Comment: Ray om Glucose Reference Range is dependent on time and content of last meal. Glucose of more than 200 mg/dL in a nonstressed, ambulatory subject supports the diagnosis of Diabetes Mellitus. Performed By: #### G LULS #### Point of Care testing , Commemt1 Glu2: Cleaned Meter [facility] Comment on above: Performed By: #### P T, CBC, PTT #### [facility] [address] [place] [address] [place] Commemt2 WILL NOTIFY DR/RN [facility] Comment on above: Performed By: #### G LULS #### Point of Care testing , Performed By: #### P T, CBC, PTT #### [facility] [address] [place] [address] Commemt3 Will Repeat Test Normal [facility] Comment on above: Result Comment: PERF ORMED BY: [place] [address] PATHOLOGIST INCIDENT RESPONSE MANAGER DOMINGA SOLIMAN M.D. Performed By: #### P T, CBC, PTT #### [address] Glucose [Mass/Vol] 429 mg/dL Off scale high [facility] Comment on above: Result Comment: Ray om Glucose Reference Range is dependent on time and content of last meal. Glucose of more than 200 mg/dL in a nonstressed, ambulatory subject supports the diagnosis of Diabetes Mellitus. Performed By: #### P T, CBC, PTT #### [address] Commemt1 Glu2: Cleaned Meter Normal [facility] Comment on above: Result Comment: PERF ORMED BY: [place] [address] PATHOLOGIST INCIDENT RESPONSE MANAGER DOMINGA SOLIMAN M.D. Performed By: #### G LULS #### Point of Care testing , Glucose [Mass/Vol] 373 mg/dL Normal [facility] Comment on above: Result Comment: Ray om Glucose Reference Range is dependent on time and content of last meal. Glucose of more than 200 mg/dL in a nonstressed, ambulatory subject supports the diagnosis of Diabetes Mellitus. Performed By: #### G LULS #### Point of Care testing , Glucose [Mass/Vol] 261 mg/dL Normal [facility] Comment on above: Result Comment: Ray om Glucose Reference Range is dependent on time and content of last meal. Glucose of more than 200 mg/dL in a nonstressed, ambulatory subject supports the diagnosis of Diabetes Mellitus. PERFORMED BY: [place] [address] PATHOLOGIST INCIDENT RESPONSE MANAGER DOMINGA SOLIMAN M.D. Performed By: #### P T, CBC, PTT #### [address] [place] [address] [facility] Lipid Panelon 08-07-2020 Cholesterol [Mass/Vol] 201 mg/dL High 140-200 [facility] Comment on above: Result Comment: Chol less than 200 mg/dl low risk Chol 201-239 mg/dl borderline risk Chol 240 mg/dl and greater high risk Performed By: #### G LULS #### Point of Care testing , Cholesterol in HDL [Mass/Vol] 49 mg/dL Normal 35-85 [facility] Comment on above: Result Comment: HDL CHOL ATP-III CLASSIFICATION Cardiovascular Risk HDL > or equal to 60 mg/dL LOW HDL < 40 mg/dL HIGH Performed By: #### G LULS #### Point of Care testing , Cholesterol.total/Ch olesterol in HDL [Mass ratio] 4.1 {ratio} Normal <5.0 [facility] Comment on above: Result Comment: PERF ORMED BY: [facility] [address] [place] [address] PATHOLOGIST INCIDENT RESPONSE MANAGER DOMINGA SOLIMAN M.D. Performed By: #### G LULS #### Point of Care testing , LDL Cholesterol,Calculat ed 127 mg/dL High 0-100 [facility] Comment on above: Result Comment: LDL ATP III CLASSIFICATION LDL less than 100 mg/dL Optimal LDL 100-129 mg/dL Near or above optimal LDL 130-159 mg/dL Borderline high LDL 160-189 mg/dL High LDL greater than 189 mg/dL Very high Performed By: #### G LULS #### Point of Care testing , Triglyceride w/Reflex 126 mg/dL Normal 35-149 [facility] Comment on above: Result Comment: TRIG ATP III CLASSIFICATION TRIG less than 150 mg/dL Normal TRIG 150-199 mg/dL Borderline high TRIG 200-500 mg/dL High TRIG greater than 500 mg/dL Very high Standard traceable to the Center for Disease Conrtrol and Prevention (CDC) test method. Performed By: #### G LULS #### Point of Care testing , VLDL CHOLESTEROL 25 mg/dL Normal [facility] Comment on above: Performed By: #### G LULS #### Point of Care testing , Magnesiumon 08-07-2020 Magnesium [Mass/Vol] 2.0 mg/dL Normal 1.6-2.6 [facility] Comment on above: Performed By: #### G LULS #### Point of Care testing , Partial Thromboplastin Timeo n 08-07-2020 aPTT Coag (Bld) [Time] 42.8 s High 25.1-36.5 [facility] Comment on above: Result Comment: PERF ORMED BY: [facility] [address] [place] [address] PATHOLOGIST INCIDENT RESPONSE MANAGER DOMINGA SOLIMAN M.D. Performed By: #### G LULS #### Point of Care testing , aPTT Coag (Bld) [Time] 33.2 s Normal 25.1-36.5 [facility] Comment on above: Result Comment: PERF ORMED BY: [place] [address] PATHOLOGIST INCIDENT RESPONSE MANAGER DOMINGA SOLIMAN M.D. Performed By: #### P T, CBC, PTT #### [address] Prothrombin Time INRon 08-07 INR Coag (PPP) [Relative time] 1.0 {INR} Normal [facility] Comment on above: Result Comment: INR [...] [Time] 11.4 s Normal 9.0-12.9 [facility] Comment on above: Performed By: #### G LULS #### Point of Care testing , INR Coag (PPP) [Relative time] 1.0 {INR} Normal [facility] Comment on above: Result Comment: INR [...] By: #### P T, CBC, PTT #### [facility] [address] PT Coag (PPP) [Time] 11.2 s Normal 9.0-12.9 [facility] Comment on above: Performed By: #### P T, CBC, PTT #### [facility] [address] Troponin I(TnI)on 08-07-2020 Troponin I.cardiac [Mass/Vol] 3.26 ng/mL Off scale high 0-0.02 [facility] Comment on above: Result Comment: KRISTI [place] Cut off value > or equal to 0.03 ng/mL in conjunction with clinical conditions of myocardial infarction. (www.escardio.org/guidelines) PERFORMED BY: [place] [address] PATHOLOGIST INCIDENT RESPONSE MANAGER DOMINGA SOLIMAN M.D. Performed By: #### P T, CBC, PTT #### [facility] [address] [place] [address] [place] Troponin I.cardiac [Mass/Vol] 3.61 ng/mL Off scale high 0-0.02 [facility] Comment on above: Result Comment: KRISTI [place] Cut off value > or equal to 0.03 ng/mL in conjunction with clinical conditions of myocardial infarction. (www.escardio.org/guidelines) PERFORMED BY: [place] [address] PATHOLOGIST INCIDENT RESPONSE MANAGER DOMINGA SOLIMAN M.D. Performed By: #### T ROP #### [facility] [address] [place] [address] [place] Troponin I.cardiac [Mass/Vol] 4.39 ng/mL Off scale high 0-0.02 [facility] Comment on above: Result Comment: Resu lts called at 0009 on 08/07/20 KRISTI [place] Cut off value > or equal to 0.03 ng/mL in conjunction with clinical conditions of myocardial infarction. (www.escardio.org/guidelines) PERFORMED BY: [place] [address] PATHOLOGIST INCIDENT RESPONSE MANAGER DOMINGA SOLIMAN M.D. Performed By: #### P T, CBC, PTT #### [address] ECG 12 lead ECGon 08-06-2020 ECG 12 lead ECG [facility] [place] [address] [place] [address] Electrocardiograph Report Signed Patient: Lucila Tineo MR#: [id number] : 1950 Acct:[id number] Age/Sex: 70 / F ADM Date: 08/06/20 Loc: Room: [address] [place] [address] Type: ADM IN Attending Dr: Drew Patterson [...] Castillo MD 08/06/202110 Signed By: 08/07/20 1712 [facility] Vital Signs Date Time Vital Sign Value Performing Clinician Faci lity 03-06-2023 10:08-0500 Body height 162.6 cm Ange Gee MD Work Phone: [employer] 03-06-2023 10:08-0500 Body mass index (BMI) [Ratio] 25.23 kg/m2 Ange Gee MD Work Phone: [employer] 03-06-2023 10:08-0500 Body weight 66.68 kg Ange Gee MD Work Phone: [employer] 03-06-2023 10:08-0500 Diastolic blood pressure 80 mm[Hg] Ange Gee MD Work Phone: [employer] 03-06-2023 10:08-0500 Heart rate 87 /min Ange Gee MD Work Phone: [employer] 03-06-2023 10:08-0500 SaO2% (BldA) [Mass fraction] 94 % Ange Gee MD Work Phone: [employer] 03-06-2023 10:08-0500 Systolic blood pressure 132 mm[Hg] Ange Gee MD Work Phone: [facility] 12-11-2021 11:20-0400 Body height 162.56 cm Mily Ashley Andrade Work Phone: [facility] 250 DO Work Phone: 12-11-2021 11:20-0400 Body mass index (BMI) [Ratio] 27.98 kg/m2 Mily Ashley Andrade Work Phone: [facility] 250 DO Work Phone: 12-11-2021 11:20-0400 Body surface area Derived from formula 1.79 m2 Mily Ashley Andrade Work Phone: [facility] 250 DO Work Phone: 12-11-2021 11:20-0400 Body weight 73.94 kg Mily Ashley Andrade Work Phone: [facility] 250 DO Work Phone: 12-11-2021 11:20-0400 Diastolic blood pressure 78 mm[Hg] Mily A Andrade Work Phone: [facility] 250 DO Work Phone: 12-11-2021 11:20-0400 Heart rate 76 /min Mily Ashley Andrade Work Phone: [facility] 250 DO Work Phone: 12-11-2021 11:20-0400 Systolic blood pressure 136 mm[Hg] Mily Gabi Anrdade Work Phone: [facility] 250 DO Work Phone: 02-05-2021 11:35-0500 Body height 162.56 cm Mily A Andrade Work Phone: [facility] 250 DO Work Phone: 02-05-2021 11:35-0500 Body mass index (BMI) [Ratio] 28.67 kg/m2 Mily Gabi Andrade Work Phone: [facility] 250 DO Work Phone: 02-05-2021 11:35-0500 Body surface area Derived from formula 1.81 m2 Mily Gabi Andrade Work Phone: [facility] 250 DO Work Phone: 02-05-2021 11:35-0500 Body weight 75.75 kg Mily Gabi Andrade Work Phone: [facility] 250 DO Work Phone: 02-05-2021 11:35-0500 Diastolic blood pressure 81 mm[Hg] Mily A Andrade Work Phone: [facility] 250 DO Work Phone: 02-05-2021 11:35-0500 Heart rate 77 /min Mily Ashley Andrade Work Phone: [facility] 250 DO Work Phone: 02-05-2021 11:35-0500 Systolic blood pressure 157 mm[Hg] Mily Ashley Andrade Work Phone: [facility] 250 DO Work Phone: 12-04-2020 15:01-0400 Diastolic blood pressure 72 mm[Hg] Bruce Updon DO Work Phone: [facility] 600 DO Work Phone: 12-04-2020 15:01-0400 Systolic blood pressure 170 mm[Hg] Bruce Elias DO Work Phone: [facility] 600 DO Work Phone: 12-04-2020 13:53-0400 Body height 162.56 cm Bruce Elias DO Work Phone: [facility] 600 DO Work Phone: 12-04-2020 13:53-0400 Body mass index (BMI) [Ratio] 29.01 kg/m2 Bruce Elias DO Work Phone: [facility] 600 DO Work Phone: 12-04-2020 13:53-0400 Body surface area Derived from formula 1.82 m2 Bruce Elias DO Work Phone: [facility] 600 DO Work Phone: 12-04-2020 13:53-0400 Body weight 76.66 kg Bruce Elias DO Work Phone: [facility] 600 DO Work Phone: 12-04-2020 13:53-0400 Diastolic blood pressure 90 mm[Hg] Bruce Elias DO Work Phone: [facility] 600 DO Work Phone: 12-04-2020 13:53-0400 Heart rate 68 /min Bruce Elias DO Work Phone: [facility] 600 DO Work Phone: 12-04-2020 13:53-0400 Systolic blood pressure 150 mm[Hg] Bruce Elias DO Work Phone: [facility] 600 DO Work Phone: 11-06-2020 15:18-0400 70 1 Bruce Elias DO Work Phone: -[facility] 600 DO Work Phone: Comment on above: [id number] Encounters Encounter Date Encounter Type Care Provider Facility Start: 03-25-2023 End: 03-25-2023 Emergency department patient visit MILY ANDRADE Facility:[facility] Start: 03-25-2023 End: 03-25-2023 ambulatory MILY ANDRADE Facility:[facility] Start: 03-06-2023 End: 03-06-2023 ambulatory ANGE GEE [facility] Start: 03-06-2023 End: 03-06-2023 Office outpatient visit 25 minutes Ange Gee MD Work Phone: [facility] Comment on above: Essential hypertensi on (Primary Dx); Paroxysmal atrial fibrillation ([facility]) Start: 03-05-2023 Telephone encounter Corrie Goldstein [facility] Start: 03-02-[address] [facility] Start: 03-01-[address] 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 Mily ramos Lupe Facility: Start: 10-11-2021 Telephone encounter Mily Andrade Work Phone: [facility] 250 DO Work Phone: Start: 09-03-2021 Rx Renewal Mily Gabi Arnie boswell Work Phone: [facility] 250 DO Work Phone: Start: 02-05-2021 Office outpatient vi sit 10 minutes Mily Gonzalezzpatrick Work Phone: [facility] 250 DO Work Phone: Start: 02-05-[address] Bruce Elias Fac ility: Start: 12-04-2020 Patient encounter procedure Bruce Elias DO Work Phone: [facility] 600 DO Work Phone: Start: 09-05-2020 End: 03-06-2021 ambulatory SALAS ADORNOLisaSANDHU Facility: Echocardiogram normal Mily A Andrade Work Phone: [facility] 250 DO Work Phone: Procedures Date Procedure [...] Td Vaccines (2 - Td or Tdap) [facility] Start: 06-09-2028 Urine microalbumin profile DTaP,Tdap,Td Vaccine (2 - Td or Tdap) [facility] Start: 01-16-2026 Diabetes Screening Diabetes Screening [facility] Start: 03-06-2024 Adult BMI Screening Adult BMI Screening [facility] Start: 03-06-2024 Tobacco Screening Tobacco Screening [facility] Start: 01-22-2024 Adult BMI Screening Adult BMI Screening [facility] Start: 01-19-2024 Tobacco Screening Tobacco Screening [facility] Start: 03-06-2023 End: 03-06-2023 Patient encounter procedure 03/06/2023 10:15 AM EST Office Visit [facility] [address] [place] [address] Ange Gee MD [address] [place] [address] [facility] Start: 12-11-2022 FUV, Provider: Bruce Elias, Status: Pen, Time: 10:20 AM FUV, Provider: Bruce Elias, Status: Pen, Time: 10:20 AM -[facility] 250 DO Work Phone: Start: 10-31-2022 Covid-19 Vaccine ( season) Covid-19 Vaccine () [facility] Start: 10-31-2022 Influenza vaccination [facility] Start: 03-02-2022 Advance Directive Discussion Advance Directive Discussion [facility] Start: 03-02-2022 Depression Assessment Depression Assessment [facility] Start: 12-11-2021 FUV, Provider: Bruce Elias, Status: Pen, Time: 11:20 AM FUV, Provider: Bruce Elias, Status: Pen, Time: 11:20 AM [facility] 600 DO Work Phone: Start: 02-19-2021 NURSEVST, Provider: DAVID LANDEROS GLOVE FINISHER 1,[id number], Status: Pen, Time: 11:00 AM NURSEVST, Provider: DAVID LANDEROS GLOVE FINISHER 1,[id number], Status: Pen, Time: 11:00 AM [facility] 250 DO Work Phone: Start: 01-09-2021 FUV, Provider: Salas Wilson, Status: Pen, Time: 1:30 PM FUV, Provider: Salas Wilson, Status: Pen, Time: 1:30 PM [facility] 600 DO Work Phone: Start: 04-03-2020 Administration of varicella zoster vaccine Zoster (Shingles) Vaccine (2 of 2) [facility] Start: 04-03-2020 Shingrix Vaccine (2 of 2) Shingrix Vaccine (2 of 2) [facility] Start: 2015 Bone Density Screening Bone Density Screening [facility] Start: 2015 Fall Risk Screening Fall Risk Screening [facility] Start: 2010 RSV Vaccine (1 - 1-dose 60+ series) RSV Vaccine (1 - 1-dose 60+ series) [facility] Start: 02-22-2000 Shingrix Vaccine (1 of 2) Shingrix Vaccine (1 of 2) [facility] Start: 1995 Cologuard (FIT-DNA) Cologuard (FIT-DNA) [facility] Start: 1995 Colonoscopy Colonoscopy [facility] Start: 1995 Colorectal Cancer Screening Colorectal Cancer Screening [facility] Start: [address] COLONOGRAPHY [facility] Start: 1995 Diabetes Screening Diabetes Screening [facility] Start: 1995 Fecal Occult Blood Fecal Occult Blood [facility] Start: 1995 Lipid 1996 panel - Serum or Plasma Lipid Screening [facility] Start: 1995 SIGMOIDOSCOPY SIGMOIDOSCOPY [facility] Start: 1990 Mammography Mammogram Screening [facility] Start: 1969 Urine microalbumin profile DTaP,Tdap,Td Vaccine (1 - Tdap) [facility] Start: 02-22-1968 Adult BMI Follow Up Plan Adult BMI Follow Up Plan [facility] Start: 02-22-1968 Diabetic foot examination Diabetic Foot Exam [facility] Start: 02-22-1968 Hepatitis C Screening Hepatitis C Screening [facility] Start: 1962 Depression Screening Depression Screening [facility] Start: 02-22-1956 Pneumococcal Vaccine: 65+ (1 - PCV) Pneumococcal Vaccine: 65+ (1 - PCV) [facility] Start: 1950 Glaucoma screening Diabetic Ophthalmology Exam [facility] Start: 1950 Medicare Annual Wellness Visit Medicare Annual Wellness Visit [facility] Start: 1950 Tobacco Counseling Tobacco Counseling [facility] Start: 1950 Urine screening for protein Urine Microalbumin [facility] Immunizations Immunization Date Immunization Notes Care Provider Ronny naylor 05-16-2022 influenza virus vaccine, unspecified formulation Jah Sharpe MD Work Phone: [facility] 04-10-2021 Moderna COVID-19 Vaccine 100 MCG/0.5ML Intramuscular Suspension Mily Gonzalezzpatrick [facility] DO Work Phone: 05-09-2020 Lico COVID-19 Vaccine 0.5 ML Intramuscular Suspension Bruce Elias DO Work Phone: [facility] 02-07-2020 influenza, high dose seasonal, preservative-free Bruce Elias DO Work Phone: [facility] 600 DO Work Phone: 02-07-2020 zoster vaccine recombinant Bruce Elias DO Work Phone: [facility] 600 DO Work Phone: 02-07-2020 influenza virus vaccine, unspecified formulation Neurology Provider [facility] 02-07-2020 zoster vaccine, unspecified formulation Corrie Goldstein [facility] 03-02-2019 influenza, seasonal, injectable Bruce Elias DO Work Phone: [facility] 600 DO Work Phone: 02-14-2019 influenza, high dose seasonal, preservative-free Bruce Elias DO Work Phone: [facility] 600 DO Work Phone: 06-09-2018 tetanus toxoid, redu clif diphtheria toxoid, and acellular pertussis vaccine, adsorbed Bruce Elias DO Work Phone: [facility] 600 DO Work Phone: 03-02-2018 pneumococcal polysaccharide vaccine, 23 valent Bruce Elias DO Work Phone: [facility] 600 DO Work Phone: 12-02-2017 influenza, high dose seasonal, preservative-free Bruce Elias DO [facility] Phone[facility] 600 DO Work Phone: 02-25-2017 influenza, high dose seasonal, preservative-free Bruce Elias DO Work Phone: [facility] 600 DO Work Phone: 02-17-2017 pneumococcal polysaccharide vaccine, 23 valent Bruce Elias DO Work Phone: [facility] 600 DO Work Phone: 11-06-2015 influenza, injectabl e, quadrivalent, contains preservative Bruce Elias DO Work Phone: [facility] 600 DO Work Phone: 11-06-2015 pneumococcal conjuga te vaccine, 13 valent Bruce Elias DO Work Phone: [facility] 600 DO Work Phone: 12-15-2013 influenza, seasonal, injectable Bruce Elias DO Work Phone: [facility] 600 DO Work Phone: 12-21-2012 influenza, seasonal, injectable Bruce Elias DO Work Phone: [facility] 600 DO Work Phone: 12-16-2006 pneumococcal polysaccharide vaccine, 23 valent Bruce Elias DO Work Phone: [facility] 600 DO Work Phone: 11-18-2006 pneumococcal polysaccharide vaccine, 23 valent Bruce Elias DO Work Phone: [facility] 600 DO Work Phone: Payers Date Payer Category Payer Medicaid MEDICAID [facility] EDICAID [id number] 2023-[facility] [phone] [place] [id number] 2023 Medicaid [id number] 2018 Medicare [id number] 1959 Medicare [id number] 1950 Unknown [id number] 1950 Unknown [id number] 1950 Unknown [id number] 1950 Unknown [id number] 1950 Unknown [id number] 1950 Unknown [id number] Unknown Social History Date Type Detail Facility Start: 10-14-2018 End: 05-08-2020 No alcohol use No alcohol use [facility] Comment on above: 1 TEA DAILY; 1/2 PPD; Start: 10-14-2018 End: 05-27-2022 Tobacco smoking status HIIS Smokes tobacco daily [facility] History of tobacco use Cigarette Smoker [facility] Start: 10-14-2018 End: 05-27-2022 Tobacco use and exposure Smokeless tobacco non-user [facility] Start: 04-21-2019 End: 05-08-2020 Tobacco use panel [facility] National Score (1-10 0), lower number is lower risk Not on file [facility] Start: 1950 Sex Assigned At Female [facility] Start: 12-09-2022 Gender identity Identifies as female gender (finding) [facility] Start: 12-09-2022 Sexual orientation Heterosexual (fin ding) [facility] Start: 01-18-2023 End: 03-06-2023 Alcohol intake Ex-drinker (finding) [employer] Start: 1950 Sex Assigned At Not on file P [employer] Goals Date Patient Goal Desired Activity /State Personal health goal Comment on above: Formatting of this n ote might be different from the original. Evaluation of progress towards goal: In progress: Return to [place]. Clinical Notes 12-08-2022 to 03-25-2023 Ange Gee MD - 03/06/2023 10:15 AM ESTTelephone Encounter - Corrie Goldstein, [facility] [address] [address] - 03/05/2023 12:21 PM ESTTelephone Encounter - Corrie Goldstein, [facility] - 03/05/2023 12:21 PM EST Note Date & Type Note Facility 03-25-2023 Note HNO ID: [id number] Author: KRISTI MARTINEZ RT(R) Service: Radiology Author [...] IV DATA: Not applicable SIGNED BY: RT Mahehs(R) March 25, 2023 12:47 PM [facility] 03-25-2023 Note HNO ID: [id number] Author: BRO HAWK MD Service: ? Author Type: Physician Type: Progress Notes Filed: 03/25/2023 11:09 Note Text: Heart , Vascular [facility] Thoracic [place] DEPARTMENT OF VASCULAR SURGERY OUTPATIENT VISIT DATE [...] stable taaa. N (more content not included)... [facility] 03-25-2023 Note HNO ID: [id number] Author: SEPIDEH TOVAR RN Service: Nursing Author [...] DATE: March 25, 2023 TIME: 9:59 AM [facility] 03-25-2023 Note HNO ID: [id number] Author: FRANK COLEMAN RT(R) Service: Radiology Author [...] RT Monica(R) March 25, 2023 10:19 AM [facility] 03-06-2023 History of Presen t illness Narrative Lucila Tineo Date of visit: 03/06/2023 Date of : 1950 Age: 73 y.o. Patient Active Problem List Diagnosis Bilateral carotid artery stenosis Thoracic aortic aneurysm without rupture [place] PAD (peripheral artery disease) ([facility] Claudication ([facility]) Lumbar radiculopathy, chronic Fall, initial encounter 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 ([facility] Uncontrolled type 2 diabetes mellitus with hyperglycemia ([facility]) HLD (hyperlipidemia) History of stroke COPD (chronic obstructive pulmonary disease) ([facility]) ASCVD (arteriosclerotic cardiovascular disease) High anion gap metabolic acidosis Left middle cerebral artery aneurysm JEYSON (acute kidney injury) ([facility] Elevated troponin Essential hypertension Fecal impaction ([facility]) Stercoral colitis Paroxysmal atrial fibrillation ([facility]) Allergies Allergen Reactions Penicillins Hives and Other [...] that were known and followed conservatively by [facility]. She has been started on Eliquis. [...] aneurysm that is followed by vascular in [place]. She has not been back to [place] in some time. A repeat CTA of the abdomen and pelvis that was not a dedicated CTA study was done here in [place] and reported 4.9 cm aneurysm. I do not see the last assessment in [place] but there is a reading from 2020 42 mm. I am not sure whether getting the measurement of 4.9 cm on the study here. There is a lot of artifact and I see measurements that may be 44-45 mm but not clearly 49. Past Medical History: Diagnosis Date JEYSON (acute kidney injury) ([facility]) 01/16/2023 Cancer ([facility] Chronic pain disorder Descending aortic aneurysm ([facility]) Diabetes mellitus type 2, controlled ([facility]) Emphysema of lung ([facility]) Former smoker Hypertension Low back pain NSTEMI, initial episode of care ([facility]) PAD (peripheral artery disease) ([facility]) 11/19/2020 Skin cancer Spinal stenosis of lumbar region with neurogenic claudication Stroke ([facility]) Uncontrolled type 2 diabetes mellitus with hyperglycemia ([facility]) 01/08/2021 No data recorded No data recorded No data recorded Past Surgical History: Procedure Laterality Date APPENDECTOMY CARPAL TUNNEL RELEASE CYST REMOVAL HYSTERECTOMY INJECTION BLOCK EPIDURAL CAUDAL STEROID N/A 05/09/2022 Performed by Bruce Mcgregor MD at [facility] SKIN CANCER EXCISION TONSILLECTOMY Family History Problem [...] with M2 vessel cut off, diagnosed in [place], [place] 2. Primary hypertension 3. Hyperlipidemia 4. Type 2 diabetes , DKA 5. Elevation. Non-STEMI 2020 with catheterization revealing thrombotic/chronic occlusion of the RCA with attempted stent at the time. 5. ASCVD with NSTEMI 2020; LHC 2020 with thrombotic/chronic occlusion of the RCA and attempted stent 7. Aneurysmal dilatation of descending thoracic aorta measuring up to 4.9 cm in width by vascular in [place], unclear if 4.9 cm as an accurate measurement and was not as enlarged on prior study in [place]. 9. Ascending aortic enlargement/aneurysm 10. 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 I am not certain that the descending thoracic aorta is truly 4.9 cm but if this is the case, this is a rapid progression compared to previous and likely merits intervention at this point. I think she will likely need a dedicated study. I think [place] will prefer that they get a CTA there for planning. I only see the aorta closer to 4.5 cm I would nonetheless want her to make sure she meet with vascular. TODAYS ORDERS No orders of the defined types were placed in this encounter. FOLLOW UP Return in about 4 months (around 07/05/2023). PCP: MARILYN HEARD Referring Physician: MARILYN Heard [id number], [address] [place] [address] documented in this encounter [facility] 03-05-2023 Miscellaneous Notes Left message for patient to remind them to bring their most current medication list with them to their appointment. documented in this encounter [facility] 03-05-2023 Telephone encounter Note Left message for patient to remind them to bring their most current medication list with them to their appointment. [facility] 01-02-2023 Miscellaneous Notes Voice mail left for daughter to discuss plan of care for follow up of cerebral aneurysm as discussed with Dr Sharpe at appointment. Imaging in 6 months versus cerebral angiogram. Requested daughter to either call this office or send a My Chart message with preference documented in this encounter [facility] 12-16-2022 Note HNO ID: [id number] Author: Jah Sharpe MD Service: ? Author Type: Physician Type: Progress Notes Filed: 12/16/2022 6:24 PM Note Text: [facility] Virtual Visit Lucila Tineo CC#: [id number] Date of Service: 12/16/2022 Primary Care Provider: Mily Andrade, POWER PLANT MANAGER [address] [facility] [address] The patient was referred by Osei Roe [...] brain aneurysm. The patient was residing in [place], and was found down on October 29, [...] stroke work-up. The patient then returned to [place], and she is still at a nursing [...] Discontinue saline lo (more content not included)... [facility] 12-16-2022 History of Presen t illness Narrative [facility] Virtual Visit Lucila Tineo [facility]#: [id number] Date of Service: 12/16/2022 Primary Care Provider: Mily Andrade, POWER PLANT MANAGER [address] [facility] [address] The patient was referred by Osei Roe [...] brain aneurysm. The patient was residing in [place], and was found down on October 29, [...] stroke work-up. The patient then returned to [place], and she is still at a nursing [...] cause of the patient's right MCA stroke. [facility] MRI brain September 2022: Available images demonstrate a large right hemispheric acute ischemic stroke. Additional changes also seen in the left occipital pole of unclear etiology, possibly previous ischemia. Stroke Mechanism and Scales Ischemic or TIA: Ischemic Stroke Cerebrovascular Disease w/o Stroke Event: Unruptured Aneurysm Modified Bethel Score: Score: 4 NIH Stroke Scale: LOC: [...] OSEI ROE [address] [facility] [address] Mily Andrade [address] [place] [address] documented in this encounter [facility] 12-08-2022 Miscellaneous Notes Images from the original note were not included. OSH imaging/records received from [facility]: December 08, 2022 -12.02.22 Dr. Roe Progress Notes scanned to chart. -Medical Hx & Imaging Reports available in Care Everywhere. Received confirmation email from [facility] that imaging hs been uploaded--per dropping off disc to imaging library to upload as I wasn't able to + kept getting error per below. Images from the original note were not included. OSH imaging/records received from [facility]: December 04, 2022 -12.02.22 Dr. Roe Progress Notes scanned to chart. PENDING: -2022 Imaging -Medical Hx & Imaging Reports Walked discs over to imaging library + gave to Adry to upload MAGDALENE. Successfully sent [employer] overnight label via [employer]~ Tracking#[id number] December 05, 2022 10:30 AM 07 [employer] Priority Overnight $14.14 From: Theresa mabry Last change on 12/04/2022 12:16:46 pm Sent on 12/04/2022 12:16:33 pm Completed ENDOVASCULAR INTAKE Patient name: Lucila Tineo Confirm Diagnosis/RFV (Reason for Visit): Aneurysm Is this a self-referral? no, who is the referring provider : Osei Roe [facility], [place]/His direct office number if any questions: [phone] Is this a direct referral? yes neurosurgeon Have you been recommended for surgery or procedure? Yes. coiling Are you seeking a second opinion? Yes. Do you have a MRI/MRA/CT/Ultrasound for this diagnosis? Yes. Type of imaging CT's, name/address of facility where completed [facility]. [Only has reports in folder, no images] [...] if any questions. documented in this encounter [facility] Evaluation note Diagnosis Unruptured cerebral aneurysm- Primary Cerebral aneurysm, nonruptured Ischemic stroke (HCC) Hypertension, unspecified type Hyperlipidemia, unspecified hyperlipidemia type Smoking Tobacco use disorder [facility] Diagnosis Essential hypertension- Primary Unspecified essential hypertension Paroxysmal atrial fibrillation ([facility]) Atrial fibrillation [facility] The patient [...] medication regimen. She denies medication side effects. 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 [facility] W[facility]y [facility] due [facility] minimally elevated troponin. [...] section and content) DATE CREATED AUTHOR 08/20/2020 [facility] DATE CREATED AUTHOR AUTHOR'S ORGANIZ ATION 03/11/2021 [facility] DATE CREATED AUTHOR AUTHOR'S ORGANIZ ATION 12/11/2021 [facility] DATE CREATED AUTHOR AUTHOR'S ORGANIZ ATION 12/11/2021 [employer] DATE CREATED AUTHOR AUTHOR'S ORGANIZ ATION 04/26/2022 [facility] dical Specialist DATE CREATED AUTHOR AUTHOR'S ORGANIZ ATION 03/02/2023 [facility] DATE CREATED AUTHOR AUTHOR'S ORGANIZ ATION 03/08/2023 [facility] DATE CREATED AUTHOR AUTHOR'S ORGANIZ ATION 03/28/2023 [facility] Source Comments (unrecognize d section and content) In the event this informatio n is protected by the Federal Confidentiality of Alcohol and Drug Abuse Patient Records regulations: The Federal rules restrict any use of the information to criminally investigate or prosecute any alcohol or drug abuse patient.[facility] the event this information is protected by the Federal Confidentiality of Alcohol and Drug Abuse Patient Records regulations: The Federal rules restrict any use of the information to criminally investigate or prosecute any alcohol or drug abuse patient.[facility] the event this information is protected by the Federal Confidentiality of Alcohol and Drug Abuse Patient Records regulations: The Federal rules restrict any use of the information to criminally investigate or prosecute any alcohol or drug abuse patient.[facility] the event this information is protected by the Federal Confidentiality of Alcohol and Drug Abuse Patient Records regulations: The Federal rules restrict any use of the information to criminally investigate or prosecute any alcohol or drug abuse patient.[facility] the event this information is protected by the Federal Confidentiality of Alcohol and Drug Abuse Patient Records regulations: The Federal rules restrict any use of the information to criminally investigate or prosecute any alcohol or drug abuse patient.[facility] the event this information is protected by the Federal Confidentiality of Alcohol and Drug Abuse Patient Records regulations: The Federal rules restrict any use of the information to criminally investigate or prosecute any alcohol or drug abuse patient.[facility] Reason for Visit (unrecogniz ed section and content) Reason Comments Future Appointment [place], [place], Any Reason Comments Unruptured Aneurysm 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 Follow-up EST PT IP LARRY FALL 3 0 DAY EM POSSIBLE AFIB SCHED W/ALBA PT DAUGHTER ALEX AND PT KNOWS SHE IS OOP Care Teams (unrecognized sec tion and content) Mine Wedge Sawyer Relationship Specialty Start Date End Date Mily Andrade CNP [address] [place] [address] PCP - General Family Medicine 09/29/18 Osei Roe [address] [place] [address] Referring Neurology 12/04/22 Mine Wedge Sawyer Relationship Specialty Start Date End Date Mily Andrade CNP [address] [place] [address] PCP - General Family Medicine 09/29/18 Osei Roe [address] [place] [address] Referring Neurology 12/04/22 Mine Wedge Sawyer Relationship Specialty Start Date End Date Mily Andrade CNP [address] [place] [address] PCP - General Family Medicine 09/29/18 Osei Roe [address] [place] [address] Referring Neurology 12/04/22 Mine Wedge Sawyer Relationship Specialty Start Date End Date iMly Andrade CNP [address] [place] [address] PCP - General Family Medicine 09/29/18 Osei Roe [address] [place] [address] Referring Neurology 12/04/22 Mine Wedge Sawyer Relationship Specialty Start Date End Date Mily Andrade APRN-POWER PLANT MANAGER [address] [place] [address] PCP - General Internal Medicine 08/06/20 Mine Wedge Sawyer Relationship Specialty Start Date End Date Lupe Mily Ashley APRN-CHELITA [address] [place] [address] PCP - General Internal Medicine 08/06/20 FOR [...] BE BASED ON THE PRIMARY CLINICAL RECORDS. [facility]. provides no warranty or guarantee of the accuracy or completeness of information in this document.
[2023-04-02 09:28] LABS: Bilirubin Urine NEGATIVE (NEGATIVE); Blood Urine NEGATIVE (NEGATIVE); Clarity Urine CLOUDY (CLEAR); Color Urine LT. YELLOW (YELLOW); Glucose Urine UA 250 mg/dL (NEGATIVE); Ketones Urine NEGATIVE (NEGATIVE); Leukocyte Esterase Urine NEGATIVE (NEGATIVE); Nitrite Urine NEGATIVE (NEGATIVE); Protein Urine NEGATIVE (NEG/TRACE); Specific Gravity Urine <=1.005 (1.005-1.025); Urine Microscopic Indicated NO; Urobilinogen Urine 0.2 EU/dL (0.2-1.0)
== END 2023-04-01 05:31 | disposition home or self-care (01) ==
LOC: LAB 05:30
PROVIDERS: PCP Family Medicine; Visit Provider Nurse Practitioner Family
DX: R73.9 Hyperglycemia, unspecified (principal); R32 Unspecified urinary incontinence
CPT/HCPCS: 81003

== ENCOUNTER 2023-04-14 10:54 | Outpatient (REF) | payer MEDICARE, MEDICAID, SELFPAY ==
--- OUTSIDE RECORDS SUMMARY | 2023-04-14 10:59 | XMS_ITS | CCD ---
Author Name Unknown Address [address] [place] [address] Organization [facility] Care Team Providers Care 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 Name Role Phone Unavailable Unavailable Mily Andrade [...] MILY A Primary Care Unavailab le Andrade UNIVERSITY ADMINISTRATIVE ASSISTANT-QUALITY RN, Mily A Primary Care Pro vider ANGE [...] Drug Allergy 9 Hives, Other (See Comments) [facility] Medications Current Medications Medication Drug Class(es) [...] Active docusate sodium 50 mg / sennosides, senior living 8.6 mg oral tablet (2 sources) take [...] mg total) before bedtime. 0 Active sennosides, senior living 8.6 mg oral tablet (2 sources) Start: [...] [Coronary atherosclerosis of unspecified type of vessel, round valley or graft] Onset: 09-05-2020 Chronic Diabetes mellitus [...] width (RBC) [Ratio] 14.9 % Normal 11.5-15.0 [facility] Comment on above: Order Comment: Speci men Type: BLOOD SPECIMENOrdering Facility: [facility] Address: [address] [place] [address] Performed By: #### 5 8410-2 ####[facility] LABCLIA [id number] [facility] [id number] [place] [address] [place] Hematocrit (Bld) [Volume fraction] 37.0 % Normal 36.0-46.0 [facility] Comment on above: Order Comment: Speci men Type: BLOOD SPECIMENOrdering Facility: [facility] Address: [address] [place] [address] Performed By: #### 5 8410-2 ####[facility] LABIA [id number] [place] [address] [place] Hemoglobin (Bld) [Mass/Vol] 12.1 g/dL Normal 11.5-15.5 [facility] Comment on above: Order Comment: Speci men Type: BLOOD SPECIMENOrdering Facility: [facility] Address: [address] [place] [address] Performed By: #### 5 8410-2 ####[facility] [id number] [place] [address] [place] MCH (RBC) [Entitic mass] 29.4 pg Normal 26.0-34.0 [facility] Comment on above: Order Comment: Speci men Type: BLOOD SPECIMENOrdering Facility: [facility] Address: [address] [place] [address] Performed By: #### 5 8410-2 ####[facility] [id number] [place] [address] [place] MCHC (RBC) [Mass/Vol] 32.7 g/dL Normal 30.5-36.0 [facility] Comment on above: Order Comment: Speci men Type: BLOOD SPECIMENOrdering Facility: [facility] Address: [address] [place] [address] Performed By: #### 5 8410-2 ####[facility] [id number] [place] [address] [place] MCV (RBC) [Entitic vol] 90.0 fL Normal 80.0-100.0 [facility] Comment on above: Order Comment: Speci men Type: BLOOD SPECIMENOrdering Facility: [facility] Address: [address] [place] [address] Performed By: #### 5 8410-2 ####[facility] LABCLIA [id number] [place] [address] [place] Nucleated RBC (Bld) [#/Vol] 10*3/uL Normal <0.01 [facility] Comment on above: Order Comment: Speci men Type: BLOOD SPECIMENOrdering Facility: [facility] Address: [address] [place] [address] Performed By: #### 5 8410-2 ####[facility] LABIA [id number] [place] [address] [place] Platelet mean volume (Bld) [Entitic vol] 12.2 fL Normal 9.0-12.7 [facility] Comment on above: Order Comment: Speci men Type: BLOOD SPECIMENOrdering Facility: [facility] Address: [address] [place] [address] Performed By: #### 5 8410-2 ####[facility] LABIA [id number] [place] [address] [place] Platelets (Bld) [#/Vol] 157 10*3/uL Normal 150-400 [facility] Comment on above: Order Comment: Speci men Type: BLOOD SPECIMENOrdering Facility: [facility] Address: [address] [place] [address] Performed By: #### 5 8410-2 ####[facility] LABCLIA [id number] [place] [address] [place] RBC (Bld) [#/Vol] 4.11 10*6/uL Normal 3.90-5.20 [facility] Comment on above: Order Comment: Speci men Type: BLOOD SPECIMENOrdering Facility: [facility] Address: [address] [place] [address] Performed By: #### 5 8410-2 ####[facility] LABCLIA [id number] [place] [address] [place] WBC (Bld) [#/Vol] 3.70 10*3/uL Normal 3.70-11.00 [facility] Comment on above: Order Comment: Speci men Type: BLOOD SPECIMENOrdering Facility: [facility] Address: [address] [place] [address] Performed By: #### 5 8410-2 ####[facility] LABCLIA [id number] [place] [address] [place] CNOVon 03-25-2023 CNOV Office Visit (VASSMN ) LUCILA TINEO ([id number]) 1950 F Date Time Provider Department 03/25/23 9:15 AM BRO HAWK During your visit today, we recorded the following information about you: Pulse Blood pressure 104/minute 140/84 Bro Hawk MD 03/25/2023 11:09 AM [facility] [place] DEPARTMENT OF VASCULAR SURGERY OUTPATIENT VISIT DATE [...] w/irratic blood glucose(s) SHIRA (renal artery stenosis) ([facility]) 2 arteries partially occluded Thoracoabdominal aortic aneurysm (TAAA) ([facility]) PAST SURGICAL HISTORY Procedure Laterality Date [...] Reactions Peni (more content not included)... Normal [facility] CT BRAIN WO IVCONon 03-25-19 CT BRAIN WO IVCON * * *Final Report* * * DATE OF EXAM: Mar 25 2023 12:09PM [facility] 0504 - CT BRAIN WO IVCON / [...] administration for the CTA chest/abdomen/pelvis, degrading assessment. Material Chaser (topogram) images: No additional findings. Post-operative change: [...] in the right posterior MCA and left PAY STATION ATTENDANT territories with associated encephalomalacic changes, and interval development of high attenuation along the cortical margins on the right and few areas of high attenuation in the left PAY STATION ATTENDANT territory. Findings most likely reflect gyriform enhancement [...] temporal lobe and stable adjacent vasogenic edema. Cigarette Making Machine Operator: PSCB Transcribe Date/Time: Mar 25 2023 12:10P Dictated by : KRISTINE SANDHU MD This examination was interpreted and the report reviewed and electronically signed by: KASSANDRA SAWYER MD on Mar 25 2023 12:53PM EST [id number] Normal [facility] CTA ABD/PELV WO/W IVCONon CTA ABD/PELV WO/W IVCON * * *Final Report* * * DATE OF EXAM: Mar 25 2023 10:28AM [facility] 0467 - CTA ABD/PELV WO/W IVCON / [...] AORTIC DIMENSIONS: AORTIC ROOT: 3.3 cm measured qbbdu-ui-aryla mid ASCENDING THORACIC AORTA: 3.7 cm mid [...] progression since 2020. No significant changes otherwise. Cigarette Making Machine Operator: МАРИНА Transcribe Date/Time: Mar 25 2023 12:00P Dictated by : SOHAM ALEMAN MD This examination was interpreted and the report reviewed and electronically signed by: SOHAM ALEMAN MD on Mar 25 2023 1:16PM EST [id number] Normal [facility] CTA CHEST (NONGATED) WO/W IV CONon 03-25-2023 CTA CHEST (NONGATED) WO/W IVCON * * *Final Report* * * DATE OF EXAM: Mar 25 2023 10:28AM [facility] 0124 - CTA CHEST (NONGATED) WO/W IVCON [...] AORTIC DIMENSIONS: AORTIC ROOT: 3.3 cm measured zeavr-bz-ekxxm mid ASCENDING THORACIC AORTA: 3.7 cm mid [...] progression since 2020. No significant changes otherwise. Cigarette Making Machine Operator: МАРИНА Transcribe Date/Time: Mar 25 2023 12:00P Dictated by : SOHAM ALEMAN MD This examination was interpreted and the report reviewed and electronically signed by: SOHAM ALEMAN MD on Mar 25 2023 1:16PM EST [id number] Normal [facility] Comprehensive metabolic 2000 panelon 03-25-2023 Albumin [Mass/Vol] 3.5 g/dL Low 3.9-4.9 [facility] Comment on above: Order Comment: Speci men Type: BLOOD SPECIMENOrdering Facility: [facility] Address: [address] [place] [address] Performed By: #### 2 4323-8 ####[facility] LABCLIA [id number] [place] [address] [place] ALP [Catalytic activity/Vol] 93 U/L Normal 34-123 [facility] Comment on above: Order Comment: Speci men Type: BLOOD SPECIMENOrdering Facility: [facility] Address: [address] [place] [address] Result Comment: Resu lts may be falsely decreased due to interference from hemolysis. Suggest reorder as clinically indicated. Performed By: #### 2 4323-8 ####[facility] LABCLIA [id number] [place] [address] [place] ALT [Catalytic activity/Vol] 21 U/L Normal 7-38 [facility] Comment on above: Order Comment: Speci men Type: BLOOD SPECIMENOrdering Facility: [facility] Address: [address] [place] [address] Result Comment: Resu lts may be falsely increased due to interference from hemolysis. Suggest reorder as clinically indicated. Performed By: #### 2 4323-8 ####[facility] LABCLIA [id number] [address] [place] Anion gap [Moles/Vol] 11 mmol/L Normal 9-18 [facility] Comment on above: Order Comment: Speci men Type: BLOOD SPECIMENOrdering Facility: [facility] Address: [address] [place] [address] Performed By: #### 2 4323-8 ####[facility] LABCLIA [id number] [address] [place] AST [Catalytic activity/Vol] 49 U/L High 13-35 [facility] Comment on above: Order Comment: Speci men Type: BLOOD SPECIMENOrdering Facility: [facility] Address: [address] [place] [address] Result Comment: Resu lts may be falsely increased due to interference from hemolysis. Suggest reorder as clinically indicated. Performed By: #### 2 4323-8 ####[facility] LABCLIA [id number] [place] [address] [place] Bilirubin [Mass/Vol] 0.4 mg/dL Normal 0.2-1.3 [facility] Comment on above: Order Comment: Speci men Type: BLOOD SPECIMENOrdering Facility: [facility] Address: [address] [place] [address] Performed By: #### 2 4323-8 ####[facility] LABCLIA [id number] [place] [address] [place] Calcium [Mass/Vol] 9.1 mg/dL Normal 8.5-10.2 [facility] Comment on above: Order Comment: Speci men Type: BLOOD SPECIMENOrdering Facility: [facility] Address: [address] [place] [address] Performed By: #### 2 4323-8 ####[facility] LABCLIA [id number] [place] [address] [place] Chloride [Moles/Vol] 101 mmol/L Normal 97-105 [facility] Comment on above: Order Comment: Speci men Type: BLOOD SPECIMENOrdering Facility: [facility] Address: [address] [place] [address] Performed By: #### 2 4323-8 ####[facility] LABCLIA [id number] [place] [address] [place] CO2 [Moles/Vol] 19 mmol/L Low 22-30 [facility] Comment on above: Order Comment: Speci men Type: BLOOD SPECIMENOrdering Facility: [facility] Address: [address] [place] [address] Performed By: #### 2 4323-8 ####[facility] LABCLIA [id number] [place] [address] [place] Creatinine [Mass/Vol] 0.60 mg/dL Normal 0.58-0.96 [facility] Comment on above: Order Comment: Speci men Type: BLOOD SPECIMENOrdering Facility: [facility] Address: [address] [place] [address] Performed By: #### 2 4323-8 ####[facility] LABCLIA [id number] [place] [address] [place] Creatinine and Glomerular filtration rate.predicted panel (S/P/Bld) 95 mL/min/1.73m??? Normal >=60 [facility] Comment on above: Order Comment: Speci men Type: BLOOD SPECIMENOrdering Facility: [facility] Address: [address] [place] [address] Result Comment: Janice mated Glomerular Filtration Rate [...] actual GFR. Performed By: #### 2 4323-8 ####[facility] LABCLIA [id number] [place] [address] [place] Glucose [Mass/Vol] 435 mg/dL High 74-99 [facility] Comment on above: Order Comment: Speci men Type: BLOOD SPECIMENOrdering Facility: [facility] Address: [address] [place] [address] Result Comment: The [place] Diabetes Association (ADA) provides guidance for cutoff [...] Standards of Medical Care in Diabetes 2016, [place] [employer] Association. Diabetes Care. 2016.39(Suppl 1). Performed By: #### 2 4323-8 ####[facility] LABCLIA [id number] [place] [address] [place] Potassium [Moles/Vol] Normal [facility] Comment on above: Order Comment: Speci men Type: BLOOD SPECIMENOrdering Facility: [facility] Address: [address] [place] [address] Result Comment: Unab le to assay due to interference from hemolysis. Suggest reorder as clinically indicated. Performed By: #### 2 4323-8 ####[facility] LABCLIA [id number] [place] [address] [place] Protein [Mass/Vol] 6.7 g/dL Normal 6.3-8.0 [facility] Comment on above: Order Comment: Speci men Type: BLOOD SPECIMENOrdering Facility: [facility] Address: [address] [place] [address] Result Comment: Resu lts may be falsely increased due to interference from hemolysis. Suggest reorder as clinically indicated. Performed By: #### 2 4323-8 ####[facility] LABIA [id number] [place] [address] [place] Sodium [Moles/Vol] 131 mmol/L Low 136-144 [facility] Comment on above: Order Comment: Speci men Type: BLOOD SPECIMENOrdering Facility: [facility] Address: [address] [place] [address] Performed By: #### 2 4323-8 ####[facility] LABIA [id number] [place] [address] [place] Urea nitrogen [Mass/Vol] 16 mg/dL Normal 7-21 [facility] Comment on above: Order Comment: Speci men Type: BLOOD SPECIMENOrdering Facility: [facility] Address: [address] [place] [address] Performed By: #### 2 4323-8 ####[facility] LABIA [id number] [place] [address] [place] ECG COMPLETEon 03-25-2023 ECG COMPLETE Ventricular Rate : 8 9 BPM Atrial Rate : 89 BPM P-R Interval : 146 ms QRS Duration : 72 ms Q-T Interval : 370 ms QTC Calculation(Bazett) : 450 ms Calculated P [place] : 21 degrees Calculated R [place] : -6 degrees Calculated T [place] : 3 degrees NORMAL SINUS RHYTHM . BORDERLINE ECG Confirmed by DO CHRISTINE BRUCE ([id number]), film editor supervisor YONY CHRIS ([id number]) on 03/27/2023 9:35:29 AM NAME : LUCILA TINEO PID : [id number] : 1950 Gender : Female Race : ORD : [id number] Procedure Date : Mar 25 2023 11:38:10 Edit Date : Mar 27 2023 09:35:30 Diagnosis: NORMAL SINUS RHYTHM . BORDERLINE ECG Confirmed by DO CHRISTINE BRUCE ([id number]), film editor supervisor YONY CHRIS ([id number]) on 03/27/2023 9:35:29 AM Test Reason : Chest Pain Location : 2 : EDNS E018 Overread By : DO CHRISTINE BRUCE Edited By : YONY CHRIS Referred By : , Acquired by : Nicky MATHEWS [facility] ED NOTEon 03-25-2023 ED NOTE HNO ID: [id number] Author: SEPIDEH DE DIOS Medic Service: Emergency Medicine Author Type: Floating Operator and Parts Expediter Type: ED Notes Filed: 03/25/2023 16:57 Note Text: 3rd trop sent via straight stick in left hand [facility] ED NOTE HNO ID: [id number] Author: ESTHELA RAMAN RN Service: ? Author Type: Registered Nurse Type: ED Notes Filed: 03/25/2023 11:23 Note Text: Bed: E18-11 Expected date: Expected time: Means of arrival: Comments: HUGO Saunders [facility] ED PROV NOTEon 03-25-2023 ED PROV NOTE HNO ID: [id number] Author: EDWARD CHRISTINE DO Service: Emergency Medicine [...] w/irratic blood glucose(s) SHIRA (renal artery stenosis) ([facility]) 2 arteries partially occluded Thoracoabdominal aortic aneurysm (TAAA) ([facility]) PAST SURGICAL HISTORY Procedure Laterality Date [...] pain, unspecified type Coronary artery disease involving round valley coronary artery of round valley heart without angina pectoris Uncontrolled type 2 [...] emergency depar (more content not included)... Normal [facility] HIGH SENSITIVITY TROPONIN T (INITIAL)on 03-25-2023 Troponin T.cardiac High sensitivity method [Mass/Vol] 18 ng/L High <12 [facility] Comment on above: Order Comment: Speci men Type: BLOOD SPECIMENOrdering Facility: [facility] Address: [address], [place] [address] Result Comment: When assessing risk for acute [...] 30 day MACE. Performed By: #### L [id number] ####[facility] LABCLIA [id number] HIGH SENSITIVITY TROPONIN T (SECOND)on 03-25-2023 Troponin T.cardiac High sensitivity method [Mass/Vol] 17 ng/L High <12 [facility] Comment on above: Order Comment: Letty sanchez Type: BLOOD SPECIMENOrdering Facility: [facility] Address: [address] [place] [address] Result Comment: When assessing risk for acute [...] 30 day MACE. Performed By: #### L [id number] ####[facility] LABCLIA [id number] HIGH SENSITIVITY TROPONIN T (THIRD) 3 HRS AFTER INITIALon 03-25-2023 Troponin T.cardiac High sensitivity method [Mass/Vol] 18 ng/L High <12 [facility] Comment on above: Order Comment: Letty sanchez Type: BLOOD SPECIMENOrdering Facility: [facility] Address: [address] [place] [address] Result Comment: When assessing risk for acute [...] 30 day MACE. Performed By: #### L [id number] ####[facility] LABCLIA [id number] [address] STATES OF [facility] XR CHEST 2V FRONTAL/LATon XR CHEST 2V [...] since 09/20/20 most concerning for neoplasm Emphysema Cigarette Making Machine Operator: МАРИНА Transcribe Date/Time: Mar 25 2023 12:49P Dictated by : KHLOE GAYLE MD This examination was interpreted and the report reviewed and electronically signed by: KHLOE GAYLE MD on Mar 25 2023 1:04PM EST [id number] Normal [facility] C[facility] Telephone (PODCCP) LUCILA TINEO ([id number]) 1950 F Date Time Provider Department 03/13/23 DARRYL SAUER PODCCP During your visit today, we recorded the following information about you: Darryl Sauer, RN 03/13/2023 3:39 PM Signed Reason for call: Mila called and she would like to schedule an appointment for Lucila with Dr Hawk. Looking for a Thursday apt. Contact Name: Mila Kramer Home and cell number: [phone] Diagnosis: TAAA. Rapid new growth Kind RegardsDarryl [...] Encounter Status:Closed by DARRYL SAUER on 03/13/23 [facility] LUCILA TINE[facility] ([id number]) 1950 F Date Time Provider Department 01/02/23 JAH SHARPE [facility] During your visit today, we recorded [...] Mila Kramer returned call - please call [phone]. [address] Vogt, SHREYA 01/07/2023 12:43 PM Signed Attempted to return call, voice mail left for daughter with office number to return call to this office at her convenience. Jenny Moreno 01/07/2023 2:14 PM Signed Please call daughter back at [phone]. Until [address] Vogt RN 01/07/2023 2:43 [...] LPN - Fully Assessed Reason for Visit: Passenger [place] - Other [3602] Prescriptions as of 01/07/2023 [...] Encounter Status:Closed by LANE VOGT [facility] [facility] ([facility] LUCILA TINEO ([id number]) 1950 F Date Time Provider Department 12/04/22 NEUROLOGY PROVIDER [facility] During your visit today, we recorded the following information about you: Tonja Andre 12/04/2022 12:49 PM Signed ENDOVASCULAR INTAKE Patient name: Lucila Tineo Confirm Diagnosis/RFV (Reason for Visit): Aneurysm Is this a self-referral? no, who is the referring provider : Osei Roe [place] [employer] [facility], [place]/His direct office number if any questions: [phone] Is this a direct referral? yes neurosurgeon Have you been recommended for surgery or procedure? Yes. coiling Are you seeking a second opinion? Yes. Do you have a MRI/MRA/CT/Ultrasound for this diagnosis? Yes. Type of imaging CT's, name/address of facility where completed [facility]. [Only has reports in folder, no [...] 2:22 PM Addendum OSH imaging/records received from [facility]: December 04, [address] -.[address] Roe Progress Notes scanned to chart. PENDING: -2022 Imaging -Medical Hx AND Imaging Reports Walked discs over to imaging library + gave to Adry to upload MAGDALENE. Successfully sent CARRI AND [employer] overnight label via [employer]~ Tracking#[id number] December 05, 2022 10:30 AM 07 [employer] Priority Overnight? $14.14 From: Theresa Andre Last change on 12/04/2022 12:16:46 pm Sent on 12/04/2022 12:16:33 pm Completed Tonja Andre 12/09/2022 2:25 PM Addendum OSH imaging/records received from [facility]: December 08, [address] Roe [...] 100 unit (more content not included)... Normal [facility] SCREENING MAMMOGRAM W/SAULO, BILATERAL*on 04-24-2022 SCREENING MAMMOGRAM [...] VERY IMPORTANT TO YOUR HEALTH. THE CURRENT [employer] GUIDELINES RECOMMENDS ANNUAL MAMMOGRAPHY BEGINNING AT AGE 40 THIS FACILITY USES A REMINDER SYSTEM TO ENSURE ALL PATIENTS RECEIVE REMINDER NOTIFICATIONS AT THE APPROPRIATE TIME BASED ON THE RECOMMENDATIONS OF THIS EXAM. Report reported and signed by Silviano Roth on 04/25/2022 0759 Normal [facility] Drafting Technician Office Visit (Cardiology)on 12-11-2021 Follow-up visit Diagnoses/Problems [...] Aminotransferase, Serum; Status:Active - Retrospective Authorization; Requested for:[id number]; AST; Status:Active - Retrospective Authorization; Requested for:11Dec2021; Lipid Panel; Status:Active - Retrospective Authorization; Requested for:[id number]; CAD (coronary artery disease), HLD (hyperlipidemia), Hypertension Basic Metabolic Panel; Status:Active - Retrospective Authorization; Requested for:11Dec2021; Overweight with body mass index (BMI) of 27 to 27.9 in adult Healthy Weight Tips; Status:Complete - Retrospective Authorization; Done: [id number] Some eating tips that can help you [...] we can help. You may also call 9-245-EYJWNOW for free resources and assistance.; Status:Complete - [...] Recorded: 11Dec2021 11:20AM Heart Rate76, L Radial Snezsdnq312, LUE, Sitting Upehmqpll82, LUE, Sitting Height5 ft 4 in Uaiodt221 lb BMI Jtkfpubjgg55.98 kg/m2 BSA Calculated1.79 Tobacco Usea) Yes Patient encouraged to stop using tobacco productsYes PHQ-2 #1. Over the last 2 weeks have you felt down, depressed or hopeless? (If yes, answer PHQ-9 below)No PHQ-2 #2. Over the last 2 weeks have you felt little interest or pleasure in doing things? (If yes, answer PHQ-9 below)No Fa (more content not included)... Normal [facility] Tobacco Screening.on 022 Adult depression screening assessment No [facility] [employer] [address] DO Work Phone: Fall risk assessment b) One or more fall s in the last year [facility] [employer] 250 DO Work Phone: Tobacco use status [facility] a) Yes [facility] [employer] 250 DO Work Phone: Tobacco Screening. Yes [facility]-Jayden Correa DO Work Phone: XR Spine Lumbar Complete w/F tyrone AND [place] 11-18-2021 XR Spine Lumbar Complete w/Flex AND [...] by Silviano Roth on 11/18/2021 1519 Normal [facility] Drafting Technician US Venous, Bilateral, Lower [place] 10-02-2021 US Venous, Bilateral, Lower Ext FINDINGS: [...] by Silviano Roth on 10/03/2021 0652 Normal [facility] Drafting Technician Office Visit (Cardiology)on 02-05-2021 Follow-up visit Diagnoses/Problems Assessed Hypertension (401.9) (I10) Remains suboptimal CAD (coronary artery disease) (414.00) (I25.10) July 2020 ACS admit Cath: pRCA CLINICAL GENETICIST with unsuccessful antegrade attempt, fills left to [...] ONCE DAILY Basic Metabolic Panel; Status:Active; Requested for:[id number]; SocHx: Current every day smoker Tobacco Use Screening; Status:Complete; Done: [id number] Patient Instructions PLAN: Through informed decision making [...] contact the office if new symptoms arise. PERFORMANCE IMPROVEMENT MANAGER in 2 weeks Adhering to 2017 AHA/ACC [...] hospitalized overnight and treated with infusion. Saw Map Maker inpatient at [facility] due to minimally elevated troponin. [...] smoker (305.1) (more content not included)... Normal [employer] Tobacco Screening.on Fall risk assessment a) No falls within the last year [facility] 250 DO Work Phone: Tobacco use status [facility] a) Yes [facility] 250 DO Work Phone: Tobacco Screening. Yes [facility] 250 DO Work Phone: Tobacco Screening.on Fall risk assessment a) No falls within the last year [facility] 600 DO Work Phone: Tobacco use status [facility] a) Yes -[facility] 600 DO Work Phone: Tobacco Screening. Yes -[facility] 600 DO Work Phone: Comprehensive Metabolic Pane dom 08-08-2020 Albumin [Mass/Vol] 3.1 g/dL Low 3.2-5.5 [facility] Comment on above: Performed By: #### C MP #### [address] Albumin/Globulin [Mass ratio] 0.9 {ratio} Normal [facility] Comment on above: Performed By: #### C MP #### [address] ALP [Catalytic activity/Vol] 98 U/L High 32-92 [facility] Comment on above: Performed By: #### C MP #### [facility] [address] [place] [address] ALT [Catalytic activity/Vol] 17 U/L Normal 10-60 [facility] Comment on above: Performed By: #### C MP #### [address] AST [Catalytic activity/Vol] 24 U/L Normal 10-42 [facility] Comment on above: Performed By: #### C MP #### [facility] [address] [place] [address] [place] Bilirubin [Mass/Vol] 0.6 mg/dL Normal 0.3-1.2 [facility] Comment on above: Performed By: #### C MP #### [facility] [address] [place] [address] [place] Calcium [Mass/Vol] 8.8 mg/dL Normal 8.2-10.2 [facility] Comment on above: Performed By: #### C MP #### [place] [address] [place] Chloride [Moles/Vol] 103 mmol/L Normal 95-114 [facility] Comment on above: Performed By: #### C MP #### [facility] [address] CO2 [Moles/Vol] 20.4 mmol/L Low 22.0-30.0 [facility] Comment on above: Performed By: #### C MP #### [facility] [address] Creatinine [Mass/Vol] 1.06 mg/dL High 0.44-1.03 [facility] Comment on above: Performed By: #### C MP #### [facility] [address] Creatinine Clr Calc Pharmacy 49.44 [facility] Comment on above: Result Comment: PERF ORMED BY: [place] [address] PATHOLOGIST PUBLIC HEALTH ADMINISTRATOR DOMINGA SOLIMAN M.D. Performed By: #### C MP #### [address] Estimated GFR ( Grace > 60 [facility] Comment on above: Result Comment: GFR estimated reference range: According to KDOQI guidelines, <60 ml/min/1.73m2 is sufficient to diagnose a patient with chronic kidney disease. Performed By: #### C MP #### [address] Estimated GFR (Non- Am 51 [facility] Comment on above: Performed By: #### C MP #### [address] Globulin (S) [Mass/Vol] 3.3 g/dL [facility] Comment on above: Performed By: #### C MP #### [address] Glucose [Mass/Vol] 282 mg/dL High 70-100 [facility] Comment on above: Result Comment: [place] Glucose Reference Range is dependent on time and content of last meal. Glucose of more than 200 mg/dL in a nonstressed, ambulatory subject supports the diagnosis of Diabetes Mellitus. ADA recommended reference range Performed By: #### C MP #### [facility] [address] Potassium [Moles/Vol] 4.5 mmol/L Normal 3.5-5.1 [facility] Comment on above: Performed By: #### C MP #### [facility] [address] [place] [id number] [facility] Protein [Mass/Vol] 6.4 g/dL Normal 6.1-7.9 [facility] Comment on above: Performed By: #### C MP #### [facility] [address] Sodium [Moles/Vol] 134 mmol/L Low 136-146 [facility] Comment on above: Performed By: #### C MP #### [facility] [address] Urea nitrogen [Mass/Vol] 29 mg/dL High 9-23 [facility] Comment on above: Performed By: #### C MP #### [facility] [address] ECG 12 lead ECGon 08-08-2020 ECG 12 lead ECG [facility] [place] [address] [place] [address] Electrocardiograph Report Signed Patient: Lucila Tineo MR#: [id number] : 1950 Acct:[id number] Age/Sex: 70 / F ADM Date: 08/06/20 Loc: Room: [address] [place] [address] Type: ADM IN Attending Dr: Drew aPtterson MD Ordering Provider: Jodi Elias DO Date [...] Glucometerson 0 08-08-2020 Commemt1 Glu2: Cleaned Meter [facility] Comment on above: Result Comment: PERF ORMED BY: [place] [address] PATHOLOGIST PUBLIC HEALTH ADMINISTRATOR DOMINGA SOLIMAN M.D. Performed By: #### P T, CBC, PTT #### [place] [address] [place] Glucose [Mass/Vol] 354 mg/dL Normal [facility] Comment on above: Result Comment: [place] om Glucose Reference Range is dependent on time and content of last meal. Glucose of more than 200 mg/dL in a nonstressed, ambulatory subject supports the diagnosis of Diabetes Mellitus. Performed By: #### P T, CBC, PTT #### [place] [address] [place] Commemt1 Glu2: Cleaned Meter [facility] Comment on above: Result Comment: PERF ORMED BY: [place] [address] PATHOLOGIST PUBLIC HEALTH ADMINISTRATOR DOMINGA SOLIMAN M.D. Performed By: #### P T, CBC, PTT #### [place] [id number] [place] Glucose [Mass/Vol] 380 mg/dL Normal [facility] Comment on above: Result Comment: [place] om Glucose Reference Range is dependent on time and content of last meal. Glucose of more than 200 mg/dL in a nonstressed, ambulatory subject supports the diagnosis of Diabetes Mellitus. Performed By: #### P T, CBC, PTT #### [place] [id number] [place] Glucose [Mass/Vol] 80 mg/dL [facility] Comment on above: Result Comment: [facility] Glucose Reference Range is dependent on time and content of last meal. Glucose of more than 200 mg/dL in a nonstressed, ambulatory subject supports the diagnosis of Diabetes Mellitus. PERFORMED BY: [address] [place] [address] PATHOLOGIST PUBLIC HEALTH ADMINISTRATOR DOMINGA SOLIMAN M.D. Performed By: #### P T, CBC, PTT #### [address] Commemt1 [facility] Comment on above: Result Comment: Glu2 : FOLLOW HYPOGLYCEMIC Performed By: #### P T, CBC, PTT #### [address] Commemt2 Cleaned Meter [facility] Comment on above: Performed By: #### P T, CBC, PTT #### [address] Commemt3 WILL NOTIFY DR/RN [facility] Comment on above: Result Comment: PERF ORMED BY: [place] [address] PATHOLOGIST PUBLIC HEALTH ADMINISTRATOR DOMINGA SOLIMAN M.D. Performed By: #### P T, CBC, PTT #### [address] Glucose [Mass/Vol] 42 mg/dL Off scale low [facility] Comment on above: Result Comment: [facility] Glucose Reference Range is dependent on time and content of last meal. Glucose of more than 200 mg/dL in a nonstressed, ambulatory subject supports the diagnosis of Diabetes Mellitus. Performed By: #### P T, CBC, PTT #### [facility] [address] [place] [address] Troponin I(TnI)on 08-08-2020 Troponin I.cardiac [Mass/Vol] 2.45 ng/mL Off scale high 0-0.02 [facility] Comment on above: Result Comment: [place] Cut off value > or equal to 0.03 ng/mL in conjunction with clinical conditions of myocardial infarction. (www.escardio.org/guidelines) PERFORMED BY: [address] [place] [address] PATHOLOGIST PUBLIC HEALTH ADMINISTRATOR DOMINGA SOLIMAN M.D. Performed By: #### T ROP #### [place] [address] [place] A1C with Estimated Average G [facility] 08-07-2020 Glucose [Mass/Vol] 183 mg/dL Normal [facility] Comment on above: Result Comment: PERF ORMED BY: [address] [place] [address] PATHOLOGIST PUBLIC HEALTH ADMINISTRATOR DOMINGA SOLIMAN M.D. Performed By: #### G LULS #### Point of Care testing , HbA1c (Bld) [Mass fraction] 8.0 % High 4.3-5.6 [facility] Comment on above: Result Comment: Incr eased risk for diabetes: 5.7 - 6.4 diabetes: >6.4 glycemic control for adults with diabetes: <7.0 Performed By: #### G LULS #### Point of Care testing , Complete Blood Count Auto Di ffon 08-07-2020 Basophils (Bld) [#/Vol] 0.1 10*3/uL Normal 0.0-0.2 [facility] Comment on above: Result Comment: PERF ORMED BY: [address] [place] [address] PATHOLOGIST PUBLIC HEALTH ADMINISTRATOR DOMINGA SOLIMAN M.D. Performed By: #### G LULS #### Point of Care testing , Basophils/100 WBC (Bld) 1.4 % Normal . [facility] Comment on above: Performed By: #### G LULS #### Point of Care testing , Eosinophils (Bld) [#/Vol] 0.1 10*3/uL Normal 0.0-0.45 [facility] Comment on above: Performed By: #### G LULS #### Point of Care testing , Eosinophils/100 WBC (Bld) 2.6 % Normal . [facility] Comment on above: Performed By: #### G SHANEKA #### Point of Care testing , Erythrocyte distribution width (RBC) [Ratio] 15.6 % High 11.9-15.3 [facility] Comment on above: Performed By: #### G ARVINDLS #### Point of Care testing , Hematocrit (Bld) [Volume fraction] 39.8 % Normal 34.0-46.4 [facility] Comment on above: Performed By: #### G ARVINDLS #### Point of Care testing , Hemoglobin (Bld) [Mass/Vol] 13.8 g/dL Normal 11.8-15.4 [facility] Comment on above: Performed By: #### G SHANEKA #### Point of Care testing , Lymphocytes (Bld) [#/Vol] 1.5 10*3/uL Normal 1.00-4.8 [facility] Comment on above: Performed By: #### G SHANEKA #### Point of Care testing , Lymphocytes/100 WBC (Bld) 26.4 % Normal . [facility] Comment on above: Performed By: #### G SHANEKA #### Point of Care testing , MCH (RBC) [Entitic mass] 30.9 pg Normal 24.7-34.3 [facility] Comment on above: Performed By: #### [place] SAMUELSLS #### Point of Care testing , MCV (RBC) [Entitic vol] 89.0 fL Normal 80-100 [facility] Comment on above: Performed By: #### [place] SAMUELSLS #### Point of Care testing , Mean Corpuscular HGB Conc 34.8 g/dL Normal 32.0-35.0 [facility] Comment on above: Performed By: #### G SHANEKA #### Point of Care testing , Monocytes (Bld) [#/Vol] 0.4 10*3/uL Normal 0.0-0.8 [facility] Comment on above: Performed By: #### G SHANEKA #### Point of Care testing , Monocytes/100 WBC (Bld) 7.0 % Normal . [facility] Comment on above: Performed By: #### [place] MUNROE #### Point of Care testing , Neutrophils (Bld) [#/Vol] 3.6 10*3/uL Normal 1.8-7.7 [facility] Comment on above: Performed By: #### G SHANEKA #### Point of Care testing , Neutrophils/100 WBC (Bld) 62.6 % Normal . [facility] Comment on above: Performed By: #### G SHANEKA #### Point of Care testing , Nucleated RBC/100 WBC (Bld) [Ratio] 0.4 % Normal 0-0.5 [facility] Comment on above: Performed By: #### G SHANEKA #### Point of Care testing , Platelet mean volume (Bld) [Entitic vol] 9.1 fL Normal 6.3-10.7 [facility] Comment on above: Performed By: #### G SHANEKA #### Point of Care testing , Platelets (Bld) [#/Vol] 201 10*3/uL Normal 150-450 [facility] Comment on above: Performed By: #### G SHANEKA #### Point of Care testing , RBC (Bld) [#/Vol] 4.47 10*6/uL Normal 3.60-5.00 [facility] Comment on above: Performed By: #### G SHANEKA #### Point of Care testing , WBC (Bld) [#/Vol] 5.7 10*3/uL Normal 4.5-11.0 [facility] Comment on above: Performed By: #### G SHANEKA #### Point of Care testing , Basophils (Bld) [#/Vol] 0.1 10*3/uL Normal 0.0-0.2 [facility] Comment on above: Result Comment: PERF ORMED BY: [place] [address] PATHOLOGIST PUBLIC HEALTH ADMINISTRATOR DOMINGA SOLIMAN M.D. Performed By: #### P T, CBC, PTT #### [facility] [address] Basophils/100 WBC (Bld) 0.7 % Normal . [facility] Comment on above: Performed By: #### P T, CBC, PTT #### [facility] [address] Eosinophils (Bld) [#/Vol] 0.1 10*3/uL Normal 0.0-0.45 [facility] Comment on above: Performed By: #### P T, CBC, PTT #### [address] Eosinophils/100 WBC (Bld) 1.5 % Normal . [facility] Comment on above: Performed By: #### P T, CBC, PTT #### [address] Erythrocyte distribution width (RBC) [Ratio] 15.4 % High 11.9-15.3 [facility] Comment on above: Performed By: #### P T, CBC, PTT #### [address] Hematocrit (Bld) [Volume fraction] 41.4 % Normal 34.0-46.4 [facility] Comment on above: Performed By: #### P T, CBC, PTT #### [address] Hemoglobin (Bld) [Mass/Vol] 14.0 g/dL Normal 11.8-15.4 [facility] Comment on above: Performed By: #### P T, CBC, PTT #### [address] Lymphocytes (Bld) [#/Vol] 2.0 10*3/uL Normal 1.00-4.8 [facility] Comment on above: Performed By: #### P T, CBC, PTT #### [place] [address] [place] Lymphocytes/100 WBC (Bld) 30.1 % Normal . [facility] Comment on above: Performed By: #### P T, CBC, PTT #### [address] MCH (RBC) [Entitic mass] 30.4 pg Normal 24.7-34.3 [facility] Comment on above: Performed By: #### P T, CBC, PTT #### [facility] [address] MCV (RBC) [Entitic vol] 89.6 fL Normal 80-100 [facility] Comment on above: Performed By: #### P T, CBC, PTT #### [facility] [address] Mean Corpuscular HGB Conc 33.9 g/dL Normal 32.0-35.0 [facility] Comment on above: Performed By: #### P T, CBC, PTT #### [facility] [address] Monocytes (Bld) [#/Vol] 0.4 10*3/uL Normal 0.0-0.8 [facility] Comment on above: Performed By: #### P T, CBC, PTT #### [facility] [address] Monocytes/100 WBC (Bld) 6.4 % Normal . [facility] Comment on above: Performed By: #### P T, CBC, PTT #### [facility] [address] Neutrophils (Bld) [#/Vol] 4.2 10*3/uL Normal 1.8-7.7 [facility] Comment on above: Performed By: #### P T, CBC, PTT #### [facility] [address] Neutrophils/100 WBC (Bld) 61.3 % Normal . [facility] Comment on above: Performed By: #### P T, CBC, PTT #### [facility] [address] Nucleated RBC/100 WBC (Bld) [Ratio] 0.1 % Normal 0-0.5 [facility] Comment on above: Performed By: #### P T, CBC, PTT #### [facility] [address] Platelet mean volume (Bld) [Entitic vol] 8.9 fL Normal 6.3-10.7 [facility] Comment on above: Performed By: #### P T, CBC, PTT #### [facility] [address] Platelets (Bld) [#/Vol] 197 10*3/uL Normal 150-450 [facility] Comment on above: Performed By: #### P T, CBC, PTT #### [facility] [address] RBC (Bld) [#/Vol] 4.62 10*6/uL Normal 3.60-5.00 [facility] Comment on above: Performed By: #### P T, CBC, PTT #### [facility] [address] WBC (Bld) [#/Vol] 6.8 10*3/uL Normal 4.5-11.0 [facility] Comment on above: Performed By: #### P T, CBC, PTT #### [facility] [address] [place] [address] Comprehensive Metabolic Pane dom 08-07-2020 Albumin [Mass/Vol] 3.4 g/dL Normal 3.2-5.5 [facility] Comment on above: Performed By: #### G ARVINDLS #### Point of Care testing , Albumin/Globulin [Mass ratio] 1.0 {ratio} Normal [facility] Comment on above: Performed By: #### G SHANEKA #### Point of Care testing , ALP [Catalytic activity/Vol] 107 U/L High 32-92 [facility] Comment on above: Performed By: #### G LULS #### Point of Care testing , ALT [Catalytic activity/Vol] 17 U/L Normal 10-60 [facility] Comment on above: Performed By: #### G ARVINDLS #### Point of Care testing , AST [Catalytic activity/Vol] 25 U/L Normal 10-42 [facility] Comment on above: Performed By: #### G LULS #### Point of Care testing , Bilirubin [Mass/Vol] 0.9 mg/dL Normal 0.3-1.2 [facility] Comment on above: Performed By: #### G ARVINDLS #### Point of Care testing , Calcium [Mass/Vol] 9.1 mg/dL Normal 8.2-10.2 [facility] Comment on above: Performed By: #### G LULS #### Point of Care testing , Chloride [Moles/Vol] 105 mmol/L Normal 95-114 [facility] Comment on above: Performed By: #### G LULS #### Point of Care testing , CO2 [Moles/Vol] 20.9 mmol/L Low 22.0-30.0 [facility] Comment on above: Performed By: #### G LULS #### Point of Care testing , Creatinine [Mass/Vol] 0.96 mg/dL Normal 0.44-1.03 [facility] Comment on [...] , Glucose [Mass/Vol] 391 mg/dL High 70-100 [facility] Comment on above: Result Comment: [place] Glucose Reference Range is dependent on time and content of last meal. Glucose of more than 200 mg/dL in a nonstressed, ambulatory subject supports the diagnosis of Diabetes Mellitus. ADA recommended reference range Performed By: #### G LULS #### Point of Care testing , Potassium [Moles/Vol] 4.4 mmol/L Normal 3.5-5.1 [facility] Comment on above: Performed By: #### [place] MUNROE #### Point of Care testing , Protein [Mass/Vol] 6.9 g/dL Normal 6.1-7.9 [facility] Comment on above: Performed By: #### [place] MUNROE #### Point of Care testing , Sodium [Moles/Vol] 136 mmol/L Normal 136-146 [facility] Comment on above: Performed By: #### [place] MUNROE #### Point of Care testing , Urea nitrogen [Mass/Vol] 19 mg/dL Normal 9-23 [facility] Comment on above: Performed By: #### [place] MUNROE #### Point of Care testing , Albumin [Mass/Vol] 3.4 g/dL Normal 3.2-5.5 [facility] Comment on above: Performed By: #### [place] MUNROE #### Point of Care testing , Albumin/Globulin [Mass ratio] 0.9 {ratio} Normal [facility] Comment on above: Performed By: #### [place] MUNROE #### Point of Care testing , ALP [Catalytic activity/Vol] 100 U/L High 32-92 [facility] Comment on above: Performed By: #### [place] MUNROE #### Point of Care testing , ALT [Catalytic activity/Vol] 17 U/L Normal 10-60 [facility] Comment on above: Performed By: #### [place] MUNROE #### Point of Care testing , AST [Catalytic activity/Vol] 34 U/L Normal 10-42 [facility] Comment on above: Performed By: #### [place] MUNROE #### Point of Care testing , Bilirubin [Mass/Vol] 0.8 mg/dL Normal 0.3-1.2 [facility] Comment on above: Performed By: #### [place] MUNROE #### Point of Care testing , Calcium [Mass/Vol] 9.2 mg/dL Normal 8.2-10.2 [facility] Comment on above: Performed By: #### G LULS #### Point of Care testing , Chloride [Moles/Vol] 104 mmol/L Normal 95-114 [facility] Comment on above: Performed By: #### G LULS #### Point of Care testing , CO2 [Moles/Vol] 20.0 mmol/L Low 22.0-30.0 [facility] Comment on above: Performed By: #### G LULS #### Point of Care testing , Creatinine [Mass/Vol] 0.95 mg/dL Normal 0.44-1.03 [facility] Comment on above: Performed By: #### G LULS #### Point of Care testing , Creatinine Clr Calc Pharmacy 55.10 [facility] Comment on above: Result Comment: PERF ORMED BY: [facility] [address] [place] [address] PATHOLOGIST PUBLIC HEALTH ADMINISTRATOR DOMINGA SOLIMAN M.D. Performed By: #### G [...] , Glucose [Mass/Vol] 271 mg/dL High 70-100 [facility] Comment on above: Result Comment: [place] Glucose Reference Range is dependent on time and content of last meal. Glucose of more than 200 mg/dL in a nonstressed, ambulatory subject supports the diagnosis of Diabetes Mellitus. ADA recommended reference range Performed By: #### G LULS #### Point of Care testing , Potassium [Moles/Vol] 4.0 mmol/L Normal 3.5-5.1 [facility] Comment on above: Performed By: #### G LULS #### Point of Care testing , Protein [Mass/Vol] 7.0 g/dL Normal 6.1-7.9 [facility] Comment on above: Performed By: #### G LULS #### Point of Care testing , Sodium [Moles/Vol] 136 mmol/L Normal 136-146 [facility] Comment on above: Performed By: #### G LULS #### Point of Care testing , Urea nitrogen [Mass/Vol] 15 mg/dL Normal 9-23 [facility] Comment on above: Performed By: #### G LULS #### Point of Care testing , [facility] echo transthoracicon [facility] echo transthoracic [facility] [place] [address] [place] [address] Echocardiogram Signed Patient: Lucila Tineo MR#: [id number] : 1950 Acct:[id number] Age/Sex: 70 / F ADM Date: 08/06/20 Loc: Room: [address] [place] [address] Type: ADM IN Attending Dr: Drew Patterson MD Ordering Provider: Bravo Abdi MD Date of Service: 08/06/20 [facility] [facility] echo transthoracic: NSTEMI, wall motion abnormalities Copies to: MD Cory Del Toro MD, [facility] Height: 64 in Weight: 167 lb Performed [...] Transcribed By: DELANO 08/07/201126 Dictated By: Cory Rdud MD, [facility] 08/07/20 0927 Signed By: 08/07/20 1127 [facility] Glucose Poct Glucometerson 0 08-07-2020 Commemt3 Cleaned Meter [facility] Comment on above: Result Comment: PERF ORMED BY: [facility] [address] [place] [address] PATHOLOGIST PUBLIC HEALTH ADMINISTRATOR DOMINGA SOLIMAN M.D. Performed By: #### G LULS #### Point of Care testing , Glucose [Mass/Vol] 503 mg/dL Off scale [facility] Comment on above: Result Comment: [facility] Glucose Reference Range is dependent on time and content of last meal. Glucose of more than 200 mg/dL in a nonstressed, ambulatory subject supports the diagnosis of Diabetes Mellitus. Performed By: #### G LULS #### Point of Care testing , Commemt1 Glu2: Cleaned Meter [facility] Comment on above: Result Comment: PERF ORMED BY: [place] [address] PATHOLOGIST PUBLIC HEALTH ADMINISTRATOR DOMINGA SOLIMAN M.D. Performed By: #### G LULS #### Point of Care testing , Glucose [Mass/Vol] 299 mg/dL [facility] Comment on above: Result Comment: [place] [facility] Glucose Reference Range is dependent on [...] on above: Result Comment: PERF ORMED BY: [place] [address] PATHOLOGIST PUBLIC HEALTH ADMINISTRATOR DOMINGA SOLIMAN M.D. Performed By: #### G LULS #### Point of Care testing , Glucose [Mass/Vol] 429 mg/dL Off scale [facility] Comment on above: Result Comment: [place] [facility] Glucose Reference Range is dependent on time and content of last meal. Glucose of more than 200 mg/dL in a nonstressed, ambulatory subject supports the diagnosis of Diabetes Mellitus. Performed By: #### G LULS #### Point of Care testing , Commemt1 Glu2: Cleaned Meter [facility] Comment on above: Performed By: #### P T, CBC, PTT #### [facility] [address] [place] [address] [place] Commemt2 WILL NOTIFY DR/RN [facility] Comment on above: Performed By: #### G LULS #### Point of Care testing , Performed By: #### P T, CBC, PTT #### [facility] [address] [place] [address] Commemt3 Will Repeat Test Normal [facility] Comment on above: Result Comment: PERF ORMED BY: [place] [address] PATHOLOGIST PUBLIC HEALTH ADMINISTRATOR DOMINGA SOLIMAN M.D. Performed By: #### P T, CBC, PTT #### [address] Glucose [Mass/Vol] 429 mg/dL Off scale high [facility] Comment on above: Result Comment: [place] [facility] Glucose Reference Range is dependent on time and content of last meal. Glucose of more than 200 mg/dL in a nonstressed, ambulatory subject supports the diagnosis of Diabetes Mellitus. Performed By: #### P T, CBC, PTT #### [address] Commemt1 Glu2: Cleaned Meter Normal [facility] Comment on above: Result Comment: PERF ORMED BY: [place] [address] PATHOLOGIST PUBLIC HEALTH ADMINISTRATOR DOMINGA SOLIMAN M.D. Performed By: #### G LULS #### Point of Care testing , Glucose [Mass/Vol] 373 mg/dL Normal [facility] Comment on above: Result Comment: [place] [facility] Glucose Reference Range is dependent on time and content of last meal. Glucose of more than 200 mg/dL in a nonstressed, ambulatory subject supports the diagnosis of Diabetes Mellitus. Performed By: #### G LULS #### Point of Care testing , Glucose [Mass/Vol] 261 mg/dL Normal [facility] Comment on above: Result Comment: [place] [facility] Glucose Reference Range is dependent on time and content of last meal. Glucose of more than 200 mg/dL in a nonstressed, ambulatory subject supports the diagnosis of Diabetes Mellitus. PERFORMED BY: [place] [address] PATHOLOGIST PUBLIC HEALTH ADMINISTRATOR DOMINGA SOLIMAN M.D. Performed By: #### P T, CBC, PTT #### [address] [place] [address] [facility] Lipid Panelon 08-07-2020 Cholesterol [Mass/Vol] 201 mg/dL High 140-200 [facility] Comment on above: Result Comment: Chol less than 200 mg/dl low risk Chol 201-239 mg/dl borderline risk Chol 240 mg/dl and greater high risk Performed By: #### G LULS #### Point of Care testing , Cholesterol in HDL [Mass/Vol] 49 mg/dL Normal 35-85 [facility] Comment on above: Result Comment: HDL CHOL ATP-III CLASSIFICATION Cardiovascular Risk HDL > or equal to 60 mg/dL LOW HDL < 40 mg/dL HIGH Performed By: #### G LULS #### Point of Care testing , Cholesterol.total/Ch olesterol in HDL [Mass ratio] 4.1 {ratio} Normal <5.0 [facility] Comment on above: Result Comment: PERF ORMED BY: [facility] [address] [place] [address] PATHOLOGIST PUBLIC HEALTH ADMINISTRATOR DOMINGA SOLIMAN M.D. Performed By: #### G LULS #### Point of Care testing , LDL Cholesterol,Calculat ed 127 mg/dL High 0-100 [facility] Comment on above: Result Comment: LDL ATP III CLASSIFICATION LDL less than 100 mg/dL Optimal LDL 100-129 mg/dL Near or above optimal LDL 130-159 mg/dL Borderline high LDL 160-189 mg/dL High LDL greater than 189 mg/dL Very high Performed By: #### G LULS #### Point of Care testing , Triglyceride w/Reflex 126 mg/dL Normal 35-149 [facility] Comment on above: Result Comment: TRIG ATP III CLASSIFICATION TRIG less than 150 mg/dL Normal TRIG 150-199 mg/dL Borderline high TRIG 200-500 mg/dL High TRIG greater than 500 mg/dL Very high Standard traceable to the Center for Disease Conrtrol and Prevention (CDC) test method. Performed By: #### G LULS #### Point of Care testing , VLDL CHOLESTEROL 25 mg/dL Normal [facility] Comment on above: Performed By: #### G LULS #### Point of Care testing , Magnesiumon 08-07-2020 Magnesium [Mass/Vol] 2.0 mg/dL Normal 1.6-2.6 [facility] Comment on above: Performed By: #### G LULS #### Point of Care testing , Partial Thromboplastin Timeo n 08-07-2020 aPTT Coag (Bld) [Time] 42.8 s High 25.1-36.5 [facility] Comment on above: Result Comment: PERF ORMED BY: [facility] [address] [place] [address] PATHOLOGIST PUBLIC HEALTH ADMINISTRATOR DOMINGA SOLIMAN M.D. Performed By: #### G LULS #### Point of Care testing , aPTT Coag (Bld) [Time] 33.2 s Normal 25.1-36.5 [facility] Comment on above: Result Comment: PERF ORMED BY: [place] [address] PATHOLOGIST PUBLIC HEALTH ADMINISTRATOR DOMINGA SOLIMAN M.D. Performed By: #### P T, CBC, PTT #### [address] Prothrombin Time INRon 08-07 INR Coag (PPP) [Relative time] 1.0 {INR} Normal [facility] Comment on above: Result Comment: [...] Coag (PPP) [Time] 11.4 s Normal 9.0-12.9 [facility] Comment on above: Performed By: #### G LULS #### Point of Care testing , INR Coag (PPP) [Relative time] 1.0 {INR} Normal [facility] Comment on above: Result Comment: [...] By: #### P T, CBC, PTT #### [facility] [address] PT Coag (PPP) [Time] 11.2 s Normal 9.0-12.9 [facility] Comment on above: Performed By: #### P T, CBC, PTT #### [facility] [address] Troponin I(TnI)on 08-07-2020 Troponin I.cardiac [Mass/Vol] 3.26 ng/mL Off scale high 0-0.02 [facility] Comment on above: Result Comment: KRISTI [place] Cut off value > or equal to 0.03 ng/mL in conjunction with clinical conditions of myocardial infarction. (www.escardio.org/guidelines) PERFORMED BY: [place] [address] PATHOLOGIST PUBLIC HEALTH ADMINISTRATOR DOMINGA SOLIMAN M.D. Performed By: #### P T, CBC, PTT #### [facility] [address] [place] [address] [place] Troponin I.cardiac [Mass/Vol] 3.61 ng/mL Off scale high 0-0.02 [facility] Comment on above: Result Comment: KRISTI [place] Cut off value > or equal to 0.03 ng/mL in conjunction with clinical conditions of myocardial infarction. (www.escardio.org/guidelines) PERFORMED BY: [place] [address] PATHOLOGIST PUBLIC HEALTH ADMINISTRATOR DOMINGA SOLIMAN M.D. Performed By: #### T ROP #### [facility] [address] [place] [address] [place] Troponin I.cardiac [Mass/Vol] 4.39 ng/mL Off scale high 0-0.02 [facility] Comment on above: Result Comment: Resu lts called at 0009 on 08/07/20 KRISTI [place] Cut off value > or equal to 0.03 ng/mL in conjunction with clinical conditions of myocardial infarction. (www.escardio.org/guidelines) PERFORMED BY: [place] [address] PATHOLOGIST PUBLIC HEALTH ADMINISTRATOR DOMINGA SOLIMAN M.D. Performed By: #### P T, CBC, PTT #### [address] ECG 12 lead ECGon 08-06-2020 ECG 12 lead ECG [facility] [place] [address] [place] [address] Electrocardiograph Report Signed Patient: Lucila Tineo MR#: [id number] : 1950 Acct:[id number] Age/Sex: 70 / F ADM Date: 08/06/20 Loc: Room: [address] [place] [address] Type: ADM IN Attending Dr: Drew Patterson [...] 162.6 cm Ange Gee MD Work Phone: [facility] 03-06-2023 10:08-0500 Body mass index (BMI) [Ratio] 25.23 kg/m2 Ange Gee MD Work Phone: [facility] 03-06-2023 10:08-0500 Body weight 66.68 kg Ange Gee MD Work Phone: [facility] 03-06-2023 10:08-0500 Diastolic blood pressure 80 mm[Hg] Ange Gee MD Work Phone: [facility] 03-06-2023 10:08-0500 Heart rate 87 /min Ange Gee MD Work Phone: [facility] 03-06-2023 10:08-0500 SaO2% (BldA) [Mass fraction] 94 % Ange Gee MD Work Phone: [facility] 03-06-2023 10:08-0500 Systolic blood pressure 132 mm[Hg] Ange Gee MD Work Phone: [facility] 12-11-2021 11:20-0400 Body height 162.56 cm Mily Ashley Andrade Work Phone: [facility] [address] DO Work Phone: 12-11-2021 11:20-0400 Body mass index (BMI) [Ratio] 27.98 kg/m2 Mily Ashley Andrade Work Phone: [facility] 250 DO Work Phone: 12-11-2021 11:20-0400 Body surface area Derived from formula 1.79 m2 Mily Ashley Andrade Work Phone: [facility] [address] DO Work Phone: 12-11-2021 11:20-0400 Body weight 73.94 kg Mily Ashley Andrade Work Phone: [facility] 250 DO Work Phone: 12-11-2021 11:20-0400 Diastolic blood pressure 78 mm[Hg] Mily A Andrade Work Phone: [facility] [address] DO Work Phone: 12-11-2021 11:20-0400 Heart rate 76 /min Mily Ashley Andrade Work Phone: [facility] 250 DO Work Phone: 12-11-2021 11:20-0400 Systolic blood pressure 136 mm[Hg] Mily Gabi Andrade Work Phone: [facility] 250 DO Work Phone: 02-05-2021 11:35-0500 Body height 162.56 cm Mily A Andrade Work Phone: [facility] [address] DO Work Phone: 02-05-2021 11:35-0500 Body mass index (BMI) [Ratio] 28.67 kg/m2 Mily Gabi Andrade Work Phone: [facility] [address] DO Work Phone: 02-05-2021 11:35-0500 Body surface area Derived from formula 1.81 m2 Mily Gabi Andrade Work Phone: [facility] [address] DO Work Phone: 02-05-2021 11:35-0500 Body weight 75.75 kg Mily Gabi Andrade Work Phone: [facility] [address] DO Work Phone: 02-05-2021 11:35-0500 Diastolic blood pressure 81 mm[Hg] Mily A Andrade Work Phone: [facility] [address] DO Work Phone: 02-05-2021 11:35-0500 Heart rate 77 /min Mily Ashley Andrade Work Phone: [facility] [address] DO Work Phone: 02-05-2021 11:35-0500 Systolic blood pressure 157 mm[Hg] Mily Ashley Andrade Work Phone: [facility] [address] DO Work Phone: 12-04-2020 15:01-0400 Diastolic blood pressure 72 mm[Hg] Bruce Updon DO Work Phone: [facility] [address] DO Work Phone: 12-04-2020 15:01-0400 Systolic blood pressure 170 mm[Hg] Bruce Elias DO Work Phone: [facility] [address] DO Work Phone: 12-04-2020 13:53-0400 Body height 162.56 cm Bruce Elias DO Work Phone: [facility] [address] DO Work Phone: 12-04-2020 13:53-0400 Body mass index (BMI) [Ratio] 29.01 kg/m2 Bruce Elias DO Work Phone: [facility] [address] DO Work Phone: 12-04-2020 13:53-0400 Body surface area Derived from formula 1.82 m2 Bruce Elias DO Work Phone: [facility] [address] DO Work Phone: 12-04-2020 13:53-0400 Body weight 76.66 kg Bruce Elias DO Work Phone: [facility] [address] DO Work Phone: 12-04-2020 13:53-0400 Diastolic blood pressure 90 mm[Hg] Bruce Elias DO Work Phone: [facility] [address] DO Work Phone: 12-04-2020 13:53-0400 Heart rate 68 /min Bruce Elias DO Work Phone: [facility] [address] DO Work Phone: 12-04-2020 13:53-0400 Systolic blood pressure 150 mm[Hg] Bruce Elias DO Work Phone: [facility] [address] DO Work Phone: 11-06-2020 15:18-0400 70 1 Bruce Elias DO Work Phone: -[facility] [address] DO Work Phone: Comment on above: [id number] Encounters Encounter Date Encounter Type Care Provider Facility Start: 03-25-2023 End: 03-25-2023 Emergency department patient visit MILY ANDRADE Facility:[facility] Start: 03-25-2023 End: 03-25-2023 ambulatory MILY ANDRADE Facility:[facility] Start: 03-06-2023 End: 03-06-2023 ambulatory ANGE GEE [facility] Start: 03-06-2023 End: 03-06-2023 Office outpatient visit 25 minutes Ange Gee MD Work Phone: [facility] Comment on above: Essential hypertensi on (Primary Dx); Paroxysmal atrial fibrillation ([facility]) Start: 03-05-2023 Telephone encounter Corrie Goldstein [facility] Start[facility] 03-02-[address] [facility] Start[facility] 03-01-[address] [facility] Start: 01-20-2023 ambulatory Jah Sharpe MD Work Phone: [facility] Comment on above: Anticoag Start: 01-16-2023 ambulatory Jah Sharpe MD Work Phone: [facility] Comment on above: Images Start: 01-02-2023 Telephone encounter Jah Sharpe MD Work Phone: [facility] Comment on above: [facility] [place] [facility] Start: 12-16-2022 End: 12-16-2022 ambulatory Jah Sharpe MD Work Phone: [facility] Comment on above: Unruptured cerebral aneurysm (Primary Dx); Ischemic stroke (HCC); Hypertension, unspecified type; Hyperlipidemia, unspecified hyperlipidemia type; Smoking Start: 12-16-2022 End: 12-16-2022 Telemedicine consultation with patient Jah Sharpe MD Work Phone: [facility] Start: 12-04-2022 Telephone encounter Neurology Provid er [facility] Comment on above: Future Appointment ( New [place], [place], Any) Start: 08-25-2022 Rx Renewal Mily dumasrick Work Phone: [facility] [address] DO Work Phone: Start: 01-07-2022 Rx Renewal Mily dumasrick Work Phone: [facility] [address] DO Work Phone: Start: 12-11-2021 Office outpatient vi sit 15 minutes Mily Gonzalezzpatrick Work Phone: [facility] [address] DO Work Phone: Start: 12-11-2021 ambulatory Ms. Mily ramos Lupe Facility: Start: 10-11-2021 Telephone encounter Mily Andrade Work Phone: [facility] [address] DO Work Phone: Start: 09-03-2021 Rx Renewal Mily Gabi Arnie boswell Work Phone: [facility] [address] DO Work Phone: Start: 02-05-2021 Office outpatient vi sit 10 minutes Mily Gonzalezzpatrick Work Phone: [facility] [address] DO Work Phone: Start: 02-05-[address] Bruce Elias Fac ility: Start: 12-04-2020 Patient encounter procedure Bruce Elias DO Work Phone: [facility] 600 DO Work Phone: Start: 09-05-2020 End: 03-06-2021 ambulatory SALAS ADORNOLisaSANDHU Facility: Echocardiogram normal Mily A Andrade Work Phone: [facility] DO Work Phone: Procedures Date Procedure [...] Td Vaccines (2 - Td or Tdap) [facility] Start: 06-09-2028 Urine microalbumin profile DTaP,Tdap,Td Vaccine (2 - Td or Tdap) [facility] Start: 01-16-2026 Diabetes Screening Diabetes Screening [facility] Start: 03-06-2024 Adult BMI Screening Adult BMI Screening [facility] Start: 03-06-2024 Tobacco Screening Tobacco Screening [facility] Start: 01-22-2024 Adult BMI Screening Adult BMI Screening [facility] Start: 01-19-2024 Tobacco Screening Tobacco Screening [facility] Start: 03-06-2023 End: 03-06-2023 Patient encounter procedure 03/06/2023 10:15 AM EST Office Visit [facility] [address] [place] [address] Ange Gee MD [address] [place] [place] [address] [facility] Start: 12-11-2022 FUV, Provider: Bruce Elias, Status: Pen, Time: 10:20 AM FUV, Provider: Bruce Elias, Status: Pen, Time: 10:20 AM -[facility] 250 DO Work Phone: Start: 10-31-2022 Covid-19 Vaccine ( season) Covid-19 Vaccine () [facility] Start: 10-31-2022 Influenza vaccination [facility] Start: 03-02-2022 Advance Directive Discussion Advance Directive Discussion [facility] Start: 03-02-2022 Depression Assessment Depression Assessment [facility] Start: 12-11-2021 FUV, Provider: Bruce Elias, Status: Pen, Time: 11:20 AM FUV, Provider: Bruce Elias, Status: Pen, Time: 11:20 AM [facility] 600 DO Work Phone: Start: 02-19-2021 NURSEVST, Provider: DAVID LANDEROS RECEIVING WORKER 1,[id number], Status: Pen, Time: 11:00 AM NURSEVST, Provider: DAVID LANDEROS RECEIVING WORKER 1,[id number], Status: Pen, Time: 11:00 AM [facility] [address] DO Work Phone: Start: 01-09-2021 FUV, Provider: Salas Wilson, Status: Pen, Time: 1:30 PM FUV, Provider: Salas Wilson, Status: Pen, Time: 1:30 PM [facility] 600 DO Work Phone: Start: 04-03-2020 Administration of varicella zoster vaccine Zoster (Shingles) Vaccine (2 of 2) [facility] Start: 04-03-2020 Shingrix Vaccine (2 of 2) Shingrix Vaccine (2 of 2) [facility] Start: 2015 Bone Density Screening Bone Density Screening [facility] Start: 2015 Fall Risk Screening Fall Risk Screening [facility] Start: 2010 RSV Vaccine (1 - 1-dose 60+ series) RSV Vaccine (1 - 1-dose 60+ series) [facility] Start: 02-22-2000 Shingrix Vaccine (1 of 2) Shingrix Vaccine (1 of 2) [facility] Start: 1995 Cologuard (FIT-DNA) Cologuard (FIT-DNA) [facility] Start: 1995 Colonoscopy Colonoscopy [facility] Start: 1995 Colorectal Cancer Screening Colorectal Cancer Screening [facility] Start: [address] COLONOGRAPHY [facility] Start: 1995 Diabetes Screening Diabetes Screening [facility] Start: 1995 Fecal Occult Blood Fecal Occult Blood [facility] Start: 1995 Lipid 1996 panel - Serum or Plasma Lipid Screening [facility] Start: 1995 SIGMOIDOSCOPY SIGMOIDOSCOPY [facility] Start: 1990 Mammography Mammogram Screening [facility] Start: 1969 Urine microalbumin profile DTaP,Tdap,Td Vaccine (1 - Tdap) [facility] Start: 02-22-1968 Adult BMI Follow Up Plan Adult BMI Follow Up Plan [facility] Start: 02-22-1968 Diabetic foot examination Diabetic Foot Exam [facility] Start: 02-22-1968 Hepatitis C Screening Hepatitis C Screening [facility] Start: 1962 Depression Screening Depression Screening [facility] Start: 02-22-1956 Pneumococcal Vaccine: 65+ (1 - PCV) Pneumococcal Vaccine: 65+ (1 - PCV) [facility] Start: 1950 Glaucoma screening Diabetic Ophthalmology Exam [facility] Start: 1950 Medicare Annual Wellness Visit Medicare Annual Wellness Visit [facility] Start: 1950 Tobacco Counseling Tobacco Counseling [facility] Start: 1950 Urine screening for protein Urine Microalbumin [facility] Immunizations Immunization Date Immunization Notes Care Provider Ronny naylor 05-16-2022 influenza virus vaccine, unspecified formulation Jah Sharpe MD Work Phone: [facility] 04-10-2021 Moderna COVID-19 Vaccine 100 MCG/0.5ML Intramuscular Suspension Mily Gonzalezzpatrick [facility] Work Phone: 05-09-2020 Lico COVID-19 Vaccine 0.5 ML Intramuscular Suspension Bruce Elias DO Work Phone: [facility] 02-07-2020 influenza, high dose seasonal, preservative-free Bruce Elias DO Work Phone: [facility] 600 DO Work Phone: 02-07-2020 zoster vaccine recombinant Bruce Elias DO Work Phone: [facility] 600 DO Work Phone: 02-07-2020 influenza virus vaccine, unspecified formulation Neurology Provider [facility] 02-07-2020 zoster vaccine, unspecified formulation Corrie Goldstein [facility] 03-02-2019 influenza, seasonal, injectable Bruce Elias DO Work Phone: [facility] 600 DO Work Phone: 02-14-2019 influenza, high dose seasonal, preservative-free Bruce Elias DO Work Phone: [facility] 600 DO Work Phone: 06-09-2018 tetanus toxoid, redu clif diphtheria toxoid, and acellular pertussis vaccine, adsorbed Bruce Elias DO Work Phone: [facility] 600 DO Work Phone: 03-02-2018 pneumococcal polysaccharide vaccine, 23 valent Bruce Elias DO Work Phone: [facility] 600 DO Work Phone: 12-02-2017 influenza, high dose seasonal, preservative-free Bruce [facility] DO [facility] DO Work Phone: 02-25-2017 influenza, high dose seasonal, preservative-free Bruce Elias DO Work Phone: [facility] DO Work Phone: 02-17-2017 pneumococcal polysaccharide vaccine, 23 valent Bruce Elias DO Work Phone: [facility] DO Work Phone: 11-06-2015 influenza, injectabl e, quadrivalent, contains preservative [facility] Work Phone: 11-06-2015 pneumococcal conjuga te vaccine, 13 valent Bruce [facility] DO [facility] Work Phone: 12-15-2013 influenza, seasonal, injectable Bruce [facility] DO [facility] Work Phone: 12-21-2012 influenza, seasonal, injectable Bruce Elias DO [facility] Work Phone: 12-16-2006 pneumococcal polysaccharide vaccine, 23 valent Bruce [facility] DO [facility] Work Phone: 11-18-2006 pneumococcal polysaccharide vaccine, 23 valent Bruce Elias DO Work Phone: [facility] DO Work Phone: Payers Date Payer Category Payer Medicaid MEDICAID [facility] EDICAID [id number] 2023-[facility] [phone] [place] [id number] 2023 Medicaid [id number] 2018 Medicare [id number] 1959 Medicare [id number] 1950 Unknown [id number] 1950 Unknown [id number] 1950 Unknown [id number] 1950 Unknown [id number] 1950 Unknown [id number] 1950 Unknown [id number] Unknown Social History Date Type Detail Facility Start: 10-14-2018 End: 05-08-2020 No alcohol use No alcohol use [facility] Comment on above: 1 TEA DAILY; 1/2 PPD; Start: 10-14-2018 End: 05-27-2022 Tobacco smoking status MEIS Smokes tobacco daily [facility] History of tobacco use Cigarette Smoker [facility] Start: 10-14-2018 End: 05-27-2022 Tobacco use and exposure Smokeless tobacco non-user [facility] Start: 04-21-2019 End: 05-08-2020 Tobacco use panel [facility] National Score (1-10 0), lower number is lower risk Not on file [facility] Start: 1950 Sex Assigned At Female [facility] Start: 12-09-2022 Gender identity Identifies as female gender (finding) [facility] Start: 12-09-2022 Sexual orientation Heterosexual (fin ding) [facility] Start: 01-18-2023 End: 03-06-2023 Alcohol intake Ex-drinker (finding) [facility] Start: 1950 Sex Assigned At Not on file [facility] Goals Date Patient Goal Desired Activity /State Personal health goal Comment on above: Formatting of this n ote might be different from the original. Evaluation of progress towards goal: In progress: Return to [place]. Clinical Notes 12-08-2022 to 03-25-2023 Ange Gee MD - 03/06/2023 10:15 AM ESTTelephone Encounter - Corrie Goldstein, [facility] - 03/05/2023 12:21 PM ESTTelephone Encounter - Corrie Goldstein, [facility] - 03/05/2023 12:21 PM EST Note Date & Type Note Facility 03-25-2023 Note HNO ID: [id number] Author: KRISTI MARTINEZ RT(R) Service: Radiology Author [...] RT Mahesh(R) March 25, 2023 12:47 PM [facility] 03-25-2023 Note HNO ID: [id number] Author: BRO HAWK MD Service: ? Author Type: Physician Type: Progress Notes Filed: 03/25/2023 11:09 Note Text: Heart , Vascular [facility] Thoracic [place] DEPARTMENT OF VASCULAR SURGERY OUTPATIENT VISIT DATE [...] stable taaa. N (more content not included)... [facility] 03-25-2023 Note HNO ID: [id number] Author: SEPIDEH TOVAR RN Service: Nursing Author [...] DATE: March 25, 2023 TIME: 9:59 AM [facility] 03-25-2023 Note HNO ID: [id number] Author: FRANK COLEMAN RT(R) Service: Radiology Author [...] RT Monica(R) March 25, 2023 10:19 AM [facility] 03-06-2023 History of Presen t illness Narrative Lucila Tineo Date of visit: 03/06/2023 Date of : 1950 Age: 73 y.o. Patient Active Problem List Diagnosis Bilateral carotid artery stenosis Thoracic aortic aneurysm without rupture ([facility]) PAD (peripheral artery disease) ([facility]) Claudication ([facility]) Lumbar radiculopathy, chronic Fall, initial encounter 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 ([facility]) Uncontrolled type 2 diabetes mellitus with hyperglycemia ([facility]) HLD (hyperlipidemia) History of stroke COPD (chronic obstructive pulmonary disease) ([facility]) ASCVD (arteriosclerotic cardiovascular disease) High anion gap metabolic acidosis Left middle cerebral artery aneurysm JEYSON (acute kidney injury) ([facility]) Elevated troponin Essential hypertension Fecal impaction ([facility]) Stercoral colitis Paroxysmal atrial fibrillation ([facility]) Allergies Allergen Reactions Penicillins Hives and Other [...] that were known and followed conservatively by [facility]. She has been started on Eliquis. [...] aneurysm that is followed by vascular in [place]. She has not been back to [place] in some time. A repeat CTA of the abdomen and pelvis that was not a dedicated CTA study was done here in [place] and reported 4.9 cm aneurysm. I do not see the last assessment in [place] but there is a reading from 2020 42 mm. I am not sure whether getting the measurement of 4.9 cm on the study here. There is a lot of artifact and I see measurements that may be 44-45 mm but not clearly 49. Past Medical History: Diagnosis Date JEYSON (acute kidney injury) ([facility]) 01/16/2023 Cancer ([facility]) Chronic pain disorder Descending aortic aneurysm ([facility]) Diabetes mellitus type 2, controlled ([facility]) Emphysema of lung ([facility]) Former smoker Hypertension Low back pain NSTEMI, initial episode of care ([facility]) PAD (peripheral artery disease) ([facility]) 11/19/2020 Skin cancer Spinal stenosis of lumbar region with neurogenic claudication Stroke ([facility]) Uncontrolled type 2 diabetes mellitus with hyperglycemia ([facility]) 01/08/2021 No data recorded No data recorded No data recorded Past Surgical History: Procedure Laterality Date APPENDECTOMY CARPAL TUNNEL RELEASE CYST REMOVAL HYSTERECTOMY INJECTION BLOCK EPIDURAL CAUDAL STEROID N/A 05/09/2022 Performed by Bruce Mcgregor MD at [facility] SKIN CANCER EXCISION TONSILLECTOMY Family History Problem [...] with M2 vessel cut off, diagnosed in [place], [place] 2. Primary hypertension 3. Hyperlipidemia 4. Type 2 diabetes , DKA 5. Elevation. Non-STEMI 2020 with catheterization revealing thrombotic/chronic occlusion of the RCA with attempted stent at the time. 5. ASCVD with NSTEMI 2020; LHC 2020 with thrombotic/chronic occlusion of the RCA and attempted stent 7. Aneurysmal dilatation of descending thoracic aorta measuring up to 4.9 cm in width by vascular in [place], unclear if 4.9 cm as an accurate measurement and was not as enlarged on prior study in [place]. 9. Ascending aortic enlargement/aneurysm 10. 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 I am not certain that the descending thoracic aorta is truly 4.9 cm but if this is the case, this is a rapid progression compared to previous and likely merits intervention at this point. I think she will likely need a dedicated study. I think [place] will prefer that they get a CTA there for planning. I only see the aorta closer to 4.5 cm I would nonetheless want her to make sure she meet with vascular. TODAYS ORDERS No orders of the defined types were placed in this encounter. FOLLOW UP Return in about 4 months (around 07/05/2023). PCP: MARILYN HEARD Referring Physician: MARILYN Heard [address], [address] [place] [address] documented in this encounter [facility] 03-05-2023 Miscellaneous Notes Left message for patient to remind them to bring their most current medication list with them to their appointment. documented in this encounter [facility] 03-05-2023 Telephone encounter Note Left message for patient to remind them to bring their most current medication list with them to their appointment. [facility] 01-02-2023 Miscellaneous Notes Voice mail left for daughter to discuss plan of care for follow up of cerebral aneurysm as discussed with Dr Sharpe at appointment. Imaging in 6 months versus cerebral angiogram. Requested daughter to either call this office or send a My Chart message with preference documented in this encounter [facility] 12-16-2022 Note HNO ID: [id number] Author: Jah Sharpe MD Service: ? Author Type: Physician Type: Progress Notes Filed: 12/16/2022 6:24 PM Note Text: [facility] Virtual Visit Lucila Tineo CC#: [id number] Date of Service: 12/16/2022 Primary Care Provider: Mily Andrade, QUALITY RN [address] [facility] [address] The patient was referred by Osei Roe [...] brain aneurysm. The patient was residing in [place], and was found down on October 29, [...] stroke work-up. The patient then returned to [place], and she is still at a nursing [...] Discontinue saline lo (more content not included)... [facility] 12-16-2022 History of Presen t illness Narrative [facility] Virtual Visit Lucila Tineo [facility]#: [id number] Date of Service: 12/16/2022 Primary Care Provider: Mily Andrade, QUALITY RN [address] [facility] [address] The patient was referred by Osei Roe [...] brain aneurysm. The patient was residing in [place], and was found down on October 29, [...] stroke work-up. The patient then returned to [place], and she is still at a nursing [...] cause of the patient's right MCA stroke. [facility] MRI brain September 2022: Available images demonstrate a large right hemispheric acute ischemic stroke. Additional changes also seen in the left occipital pole of unclear etiology, possibly previous ischemia. Stroke Mechanism and Scales Ischemic or TIA: Ischemic Stroke Cerebrovascular Disease w/o Stroke Event: Unruptured Aneurysm Modified Reina Score: Score: 4 NIH Stroke Scale: LOC: [...] OSEI ROE [address] [facility] [address] Mily Andrade [address] [place] [address] documented in this encounter [facility] 12-08-2022 Miscellaneous Notes Images from the original note were not included. OSH imaging/records received from [facility]: December 08, 2022 -12.02.22 Dr. Roe Progress Notes scanned to chart. -Medical Hx & Imaging Reports available in Care Everywhere. Received confirmation email from Ca[facility] that imaging hs been uploaded--per dropping off disc to imaging library to upload as I wasn't able to + kept getting error per below. Images from the original note were not included. OSH imaging/records received from [facility]: December 04, 2022 -12.02.22 Dr. Roe Progress Notes scanned to chart. PENDING: -2022 Imaging -Medical Hx & Imaging Reports Walked discs over to imaging library + gave to Adry to upload MAGDALENE. Successfully sent CARRI & [employer] overnight label via [employer]~ Tracking#[id number] December 05, 2022 10:30 AM 07 [employer] Priority Overnight $14.14 From: Theresa mabry Last change on 12/04/2022 12:16:46 pm Sent on 12/04/2022 12:16:33 pm Completed ENDOVASCULAR INTAKE Patient name: Lucila Tineo Confirm Diagnosis/RFV (Reason for Visit): Aneurysm Is this a self-referral? no, who is the referring provider : Osei Roe [address] in [facility], [place]/His direct office number if any questions: [phone] Is this a direct referral? yes neurosurgeon Have you been recommended for surgery or procedure? Yes. coiling Are you seeking a second opinion? Yes. Do you have a MRI/MRA/CT/Ultrasound for this diagnosis? Yes. Type of imaging CT's, name/address of facility where completed [facility]. [Only has reports in folder, no images] [...] if any questions. documented in this encounter [facility] Evaluation note Diagnosis Unruptured cerebral aneurysm- Primary Cerebral aneurysm, nonruptured Ischemic stroke (HCC) Hypertension, unspecified type Hyperlipidemia, unspecified hyperlipidemia type Smoking Tobacco use disorder documented in this [facility] Diagnosis Essential hypertension- Primary Unspecified essential hypertension Paroxysmal atrial fibrillation ([facility]) Atrial fibrillation [facility] N[facility]* The [...] medication regimen. She denies medication side effects. [facility] [address] DO Work Phone: InstructionsNot on filedocumented in this encounter [facility] HospitalNing by [employer] SystemInstructionsNot on filedocumented in this encounter [facility] Summary Purpose Family History No Family History [...] FoundDocuments on File Type Date Recorded Patient [employer] Observer Expl anation DNR Physician Order 02/13/2023 4:38 PM Latest Code Status on File Code Status Date Activated Date Inactivated Comments DNR Comfort Care Arrest (DNR -CCA) [place] 01/16/2023 12:33 PM 01/21/2023 2:44 PM Code [...] hospitalized overnight and treated with infusion. [facility] due to minimally elevated [...] section and content) DATE CREATED AUTHOR 08/20/2020 [facility] DATE CREATED AUTHOR AUTHOR'S ORGANIZ ATION 03/11/2021 [facility] DATE CREATED AUTHOR AUTHOR'S ORGANIZ ATION 12/11/2021 [facility] DATE CREATED AUTHOR AUTHOR'S ORGANIZ ATION 12/11/2021 [employer] DATE CREATED AUTHOR AUTHOR'S ORGANIZ ATION 04/26/2022 [facility] DATE CREATED AUTHOR AUTHOR'S ORGANIZ ATION 03/02/2023 [facility] DATE CREATED AUTHOR AUTHOR'S ORGANIZ ATION 03/08/2023 [facility] DATE CREATED AUTHOR AUTHOR'S ORGANIZ ATION 03/28/2023 [facility] Source Comments (unrecognize d section and content) In the event this informatio n is protected by the Federal Confidentiality of Alcohol and Drug Abuse Patient Records regulations: The Federal rules restrict any use of the information to criminally investigate or prosecute any alcohol or drug abuse patient.[facility] the event this information is protected by the Federal Confidentiality of Alcohol and Drug Abuse Patient Records regulations: The Federal rules restrict any use of the information to criminally investigate or prosecute any alcohol or drug abuse patient.[facility] Hospital[facility] the event this information is protected by the Federal Confidentiality of Alcohol and Drug Abuse Patient Records regulations: The Federal rules restrict any use of the information to criminally investigate or prosecute any alcohol or drug abuse patient.[facility] HospitalIn the event this information is protected by the Federal Confidentiality of Alcohol and Drug Abuse Patient Records regulations: The Federal rules restrict any use of the information to criminally investigate or prosecute any alcohol or drug abuse patient.[facility] Hospital[facility] the event this information is protected by the Federal Confidentiality of Alcohol and Drug Abuse Patient Records regulations: The Federal rules restrict any use of the information to criminally investigate or prosecute any alcohol or drug abuse patient.[facility] HospitalIn the event this information is protected by the Federal Confidentiality of Alcohol and Drug Abuse Patient Records regulations: The Federal rules restrict any use of the information to criminally investigate or prosecute any alcohol or drug abuse patient.[facility] Reason for Visit (unrecogniz ed section and content) Reason Comments Future Appointment [place], [place], Any Reason Comments Unruptured Aneurysm Reason Comments Passenger [place] - Other Reason Comments Follow-up EST PT IP LARRY FALL 3 0 DAY EM POSSIBLE AFIB SCHED W/ALBA PT DAUGHTER ALEX AND PT KNOWS SHE IS OOP Care Teams (unrecognized sec tion and content) 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 Relationship Specialty Start Date End Date Mily Andrade CNP [address] [place] [address] PCP - General Family Medicine 09/29/18 Osei Roe [address] [place] [address] Referring Neurology 12/04/22 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 Relationship Specialty Start Date End Date Mily Andrade CNP [address] [place] [address] PCP - General Family Medicine 09/29/18 Osei Roe [address] [place] [address] Referring Neurology 12/04/22 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 Relationship Specialty Start Date End Date Mily Andrade CNP [address] [place] [address] PCP - General Family Medicine 09/29/18 Osei Roe [address] [place] [address] Referring Neurology 12/04/22 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 [facility]. provides no warranty or guarantee of the accuracy or completeness of information in this document.
[2023-04-14 11:33] LABS: Bilirubin Urine NEGATIVE (NEGATIVE); Blood Urine NEGATIVE (NEGATIVE); Clarity Urine CLEAR (CLEAR); Color Urine LT. YELLOW (YELLOW); Glucose Urine UA >=1000 mg/dL (NEGATIVE); Ketones Urine NEGATIVE (NEGATIVE); Leukocyte Esterase Urine SMALL (NEGATIVE); Nitrite Urine NEGATIVE (NEGATIVE); Protein Urine NEGATIVE (NEG/TRACE); Urine Microscopic Indicated YES; Urobilinogen Urine 0.2 EU/dL (0.2-1.0)
[2023-04-14 12:12] LABS: Bacteria Urine SMALL #/HPF (NONE SEEN); Mucus Urine TRACE (NONE SEEN); RBC Urine 0-2 #/HPF (0-2); Squamous Epithelial Cell Urine FEW #/LPF (NONE/RARE)
[2023-04-14 12:13] LABS: Cast Seen? NONE SEEN #/LPF (NONE SEEN); Crystals Seen? None Seen #/HPF (None Seen)
[2023-04-14 12:14] LABS: Urine Culture Indicated YES
== END 2023-04-14 10:55 | disposition home or self-care (01) ==
LOC: LAB 10:54
PROVIDERS: PCP Family Medicine; Visit Provider Family Medicine
DX: N39.0 Urinary tract infection, site not specified (principal)
CPT/HCPCS: 81001; 87086; 87106

== ENCOUNTER 2023-04-17 03:17 | Outpatient (REF) | payer MEDICARE, MEDICAID, SELFPAY ==
--- OUTSIDE RECORDS SUMMARY | 2023-04-17 03:20 | XMS_ITS | CCD ---
Author Name Unknown Address [address] [place] [address] Organization [facility] Care Team Providers Care Reach Lift Truck Driver Name Role Phone Unavailable Unavailable Mily Andrade Unavailable [phone] SALAS KIRKPATRICK Attending Unavailable SALAS KIRKPATRICK Admitting Unavailable Lupe, Jaylen Mily Amena Primary Care Rosemary vailable Dr. Bruce Elias Attending Unavailable Dr. Bruce Elias Referring Unavailable Dr. Bruce Elias Referring Unavailable CHELITA Sandhu Attending Unavailable Lupe, Jaylen Mily Amena Primary Care Rosemary vailable Mily Andrade CNP Primary Care Provider Osei Roe Unavailable MILY ANDRADE Referring Unavailab le ANDRADE, MILY A Primary Care Unavailab le ANDRADE, MILY A Referring Unavailab le ANDRADE, MILY A Primary Care Unavailab le Andrade YARD ASSOCIATE-MECHANICAL SYSTEMS CONTROL ENGINEER, Mily A Primary Care Pro vider ANGE GEE Attending Unavailable MILY ANDRADE Referring Unavailab le ANDRADE, MILY A Primary Care Unavailab le ANDRADE, MILY Primary Care Unavailable BRO HAWK Attending Unavailable MILY ANDRADE Primary Care Unavailable BRO HAWK Referring Unavailable OSEI ROE Referring Unavailable LUPE, MILY Primary Care Unavailable JAH SHARPE Attending Unavailable MILY ANDRADE Primary Care Unavailable EDWARD CHRISTINE Attending Unavailable Chyna Portillo DO Unavailable Corrie Coley MD Primary Care Provider Allergies Allergy Classification Reported Allergen(s) Allergy Type Date of Onset Reaction(s) Facility (13 sources) Penicillins; Translations: [Penicillins] Allergy to drug (finding) 9 [facility] (8 sources) Penicillins Drug Allergy 9 Hives, Other (See Comments) [facility] (1 source) Penicillins Drug Allergy 9 Hives [facility] Work Phone: Medications Current Medications Medication Drug Class(es) Dates Sig (Normalized) Sig (Original) amLODIPine 5 mg oral tablet (3 sources) Dihydropyridine Calcium Channel Shantel Start: 12-03-2022 take 1 tablet by mouth in the morning amLODIPine (Norvasc) 5 MG tablet Take 5 mg by mouth in the morning. 0 12/03/2022 Active apixaban 5 mg oral tablet (2 sources) Factor Xa Inhibitor Start: 01-21-2023 take 1 tablet by mouth in the morning, then take 1 tablet by mouth at bedtime apixaban (ELIQUIS) 5 mg tablet Take 1 tablet (5 mg total) by mouth in the morning and 1 tablet (5 mg total) before bedtime. 60 tablet 2 01/21/2023 Active aspirin 325 mg oral tablet (20 sources) Platelet Aggregation Inhibitor, Nonsteroidal Anti-inflammatory Drug Start: 12-03-2022 take 1 tablet by mouth in the morning aspirin 325 MG tablet Take 325 mg by mouth in the morning. 0 12/03/2022 Active Start: 07-04-2021 take 1 tablet by rita th once daily Aspirin 81 MG Oral Tablet Chewable CHEW AND SWALLOW 1 TABLET DAILY. Quantity: 90 Refills: 3 Ordered: 04-Jul-2021 Salas Yeung Start : 04-Jul-2021 Active take 1 tablet by rita th in the morning aspirin 81 mg Take 1 tablet (81 mg total) by mouth in the morning. 0 Active Comment on above: Take 81 mg by mouth once daily. calcium carbonate 1250 mg / cholecalciferol 200 unt oral tablet (2 sources) Vitamin D take 1 tablet by mouth once in the morning calcium carbonate-vitamin D3 (OSCAL 500 + D) 500 mg(1,250mg) -200 units per tablet Take 1 tablet by mouth in the morning and 1 tablet in the evening. Take with meals. 0 Active docusate sodium 50 mg / sennosides, skilled nursing 8.6 mg oral tablet (3 sources) Start: take 1 tablet by mouth in the morning senna-docusate (Lydia-Colace) 8.6-50 MG tablet Take 1 tablet by mouth in the morning and 1 tablet in the evening. 0 12/02/2022 Active insulin aspart (NovoLOG) 100 UNIT/ML injection (1 source) insulin aspart (NovoLOG) 100 UNIT/ML injection INJECT 1U:5GM CARBS BREAKFAST AND LUNCH; 1U:15GM CARBS DINNER PLUS CORRECTION 1U:100 OVER 250. MAX 40 UNITS/DAY 0 Active 3 ml insulin aspart, human [...] above: Inject subcutaneousl y. Per sliding scale 3 ml insulin degludec 100 unt/ml pen injector (15 sources) Insulin Analog Tresiba FlexTouc h 100 UNIT/ML injection 1 (one) time each day at the same time. 0 Active inject 5 [IU] by sub cutaneous injection once daily at bedtime insulin degludec (TRESIBA FLEXTOUCH U-10 0) 100 unit/mL (3 mL) injection Inject 5 Units subcutaneously daily at bedtime. 0 Active Tresiba 100 UNIT /ML Subcutaneous Solution As directed. Quantity: 0 Refills: 0 Ordered: 05-Feb-2021 DO Active Comment on above: Inject 5 Units subcu taneously daily at bedtime. insulin glargine 100 unt/ml injectable solution (3 sources) Insulin Analog Start: 12-03-19 inject 10 [IU] by subcutaneous injection in the morning insulin glargine (Lantus) 100 UNIT/ML injection Inject 10 Units under the skin in the morning. 0 12/02/2022 Active inject 0.15 mL by arteaga bcutaneous injection once daily insulin glargine (LANTUS) 100 unit/mL injection Inject 0.15 mL (15 Units total) under the skin nightly. 0 Active insulin lispro 100 unt/ml injectable solution (1 source) Insulin Analog Start: 12-02-2022 Insulin Lispro 100 UNIT/ML solution Inject 8 Units under the skin in the morning and 8 Units at noon and 8 Units in the evening. Inject with meals. 0 12/02/2022 Active insulin lispro (HumaLOG) 100 unit/mL insulin pen (4 sources) Start: 01-21-2023 insulin lispro (HumaLOG) 100 unit/mL insulin pen [...] 15 mL 12 01/21/2023 Active levothyroxine sodium 0.125 mg oral tablet (19 sources) l-Thyroxine Start: 07-23-2022 take 1 tablet by mouth before mealtime levothyroxine (Synthroid, Levoxyl) 125 MCG tablet Indications: Hypothyroidism (acquired) (CMS/HCC) Take 1 tablet (125 mcg) by mouth in the morning. Take before meals. 90 tablet 0 07/23/2022 Active take 1 tablet by mouth in the mo rning levothyroxine (SYNTHROID, LEVOTHROID) 150 MCG tablet Take 1 tablet (150 mcg total) by mouth in the morning. 0 Active Comment on above: Take 150 mcg by mout h once daily. losartan potassium 50 mg oral tablet (17 sources) Angiotensin 2 Receptor Shantel Start: 09-09-2022 losartan (Cozaar) 50 MG tablet Indications: Primary hypertension (CMS/HCC) Take one tablets daily by mouth, 90 tablets with no refills 90 tablet 0 09/09/2022 Active take 2 tablets by mouth once gen ly losartan (COZAAR) 25 mg tablet Take 50 mg by mouth once daily. 0 Active take 1 tablet by mouth once michelle y Losartan Potassium 50 MG Oral Tablet TAKE 1 TABLET DAILY. Quantity: 90 Refills: 3 Ordered: 12-Aug-2022 Barragan Salas Ford Active correct dose and tablet form. take 1 tablet by mouth once michelle y Losartan Potassium 100 MG Oral Tablet TAKE 1 TABLET ONCE DAILY. Quantity: 3 Refills: 3 Ordered: 05-Feb-2021 Yung Salas Ford Active Comment on above: Take 50 mg by mouth once daily. magnesium hydroxide 80 mg/ml oral suspension (2 sources) take 30 mL by mouth once daily as needed magnesium hydroxide 400 mg/5 mL suspension Take 30 mL by mouth nightly as needed. 0 Active melatonin 3 mg oral tablet (3 sources) Start: 12-02-2022 take 2 tablets by mouth at bedtime melatonin 3 MG tablet Take 6 mg by mouth at bedtime. 0 12/02/2022 Active take 1 capsule by mo uth once daily as needed melatonin 3 mg capsule Take 3 mg by mout h nightly as needed (insomnia). 0 Active ondansetron 4 mg oral tablet (2 sources) Serotonin-3 Receptor Antagonist take 1 tablet by mouth every eight hours as needed for nausea and vomiting ondansetron (ZOFRAN) 4 mg tablet Take 1 tablet (4 mg total) by mouth every 8 (eight) hours as needed for nausea or vomiting. 0 Active pregabalin 25 mg oral capsule (4 sources) Start: 2022 End: 2023 take 1 capsule by mouth in the morning pregabalin (Lyrica) 25 MG capsule Indications: Polyneuropathy Take 1 capsule (25 mg) by mouth in the morning and 1 capsule (25 mg) before bedtime. 60 capsule 3 01/31/2023 05/31/2023 Active rosuvastatin calcium 40 mg oral tablet (1 source) HMG-CoA Reductase Inhibitor Start: 2022 take 1 tablet by mouth at bedtime rosuvastatin (Crestor) 40 MG tablet Take 40 mg by mouth at bedtime. 0 12/02/2022 Active sennosides, skilled nursing 8.6 mg oral tablet (2 sources) Start: 2022 take 1 tablet by mouth twice daily as needed for constipation senna (SENOKOT) 8.6 mg tablet Take 1 tablet (8.6 mg total) by mouth 2 (two) times a day as needed for constipation. 30 each 0 01/21/2023 Active traMADol hydrochloride 50 mg oral tablet (1 source) Opioid Agonist Start: 2022 take 1 tablet by mouth every six hours as needed for pain traMADoL (ULTRAM) 50 mg tablet Take 1 tablet (50 mg total) by mouth every 6 (six) hours as needed for pain. 0 01/31/2023 Active 24 hr venlafaxine 37.5 mg extended release oral capsule (3 sources) Serotonin and Norepinephrine Reuptake Inhibitor Start: 2022 take 1 capsule by mouth every twenty-four hours at mealtime venlafaxine XR (Effexor XR) 37.5 MG 24 hr capsule Take 37.5 mg by mouth in the morning. Take with meals. 0 12/03/2022 Active Completed/Discontinued Medications Medication Drug Class(es) Dates Sig (Normalized) Sig (Original) atorvastatin 40 mg oral tablet (19 sources) HMG-CoA Reductase Inhibitor Start: 07-04-2021 take 1 tablet by mouth [...] Take 75 mg by mouth once daily. iv contrast [...] in the CT contrast administration guidelines link. 24 hr metoprolol succinate 100 mg extended [...] Onset: 01-16-2023 01-16-2023 Episodic Acute cerebrovascular disease (2 sources) Ischemic stroke; Translations: [Cerebral infarction, unspecified] Onset: 12-26-2022 12-16-2022 Chronic Aortic; peripheral; and visceral artery aneurysms (14 sources) Aneurysm of descending aorta; Translations: [Aortic aneurysm of unspecified site without mention of rupture] Onset: 11-19-2020 Resolved: 01-16-2023 11-19-2020 Chronic Cardiac dysrhythmias (3 sources) Paroxysmal atrial fibrillation; Translations: [Paroxysmal atrial fibrillation] Onset: 03-06-2023 03-06-2023 Chronic Cataract (1 source) Bilateral age-related nuclear cataracts; Translations: [Age-related nuclear cataract, bilateral] Onset: 12-26-2022 12-26-2022 Chronic Chronic obstructive pulmonary disease and bronchiectasis (12 sources) Chronic obstructive lung disease; Translations: [Chronic airway obstruction, not elsewhere classified] Onset: 01-16-2023 01-16-2023 Chronic Coronary atherosclerosis and other heart disease (17 sources) Coronary arteriosclerosis; Translations: [Coronary atherosclerosis of unspecified type of vessel, [place] or graft] Onset: 09-05-2020 Chronic Diabetes mellitus [...] 12-16-2022 Chronic Comment on above: 1/2 PPD; Unclassified (1 source) Thoracic aortic aneurysm without rupture, unspecified part (HCC); Translations: [Thoracic aortic aneurysm without rupture, unspecified part (HCC)] Onset: 03-25-2023 Past or Other Problems Problem Classification Problem Date Documented Da te Episodic/Chronic Acute myocardial infarction (12 sources) Myocardial infarction; Translations: [Subendocardial infarction, initial episode of care] Onset: 01-16-2023 Resolved: 01-16-2023 01-16-2023 Chronic Blindness and vision defects (1 source) Left homonymous hemianopsia; Translations: [Homonymous bilateral field defects, left side] Onset: 12-26-2022 12-26-2022 Episodic Other eye disorders (1 source) Dry eyes; Translations: [Dry eye syndrome of bilateral lacrimal glands] Onset: 12-26-2022 12-26-2022 Episodic Screening and history of mental health and substance abuse codes (2 sources) Ex-smoker; Translations: [Personal history of nicotine dependence] Onset: 01-16-2023 Resolved: 01-16-2023 01-16-2023 Episodic Spondylosis; intervertebral disc disorders; other back problems (4 sources) Lumbar radiculopathy; Translations: [Radiculopathy, lumbar region] Onset: 11-27-2021 Resolved: 01-16-2023 11-27-2021 Episodic Results Test Name Value Interpretation Reference Range Facility No Panel Informationon 04-14 Interpretation and review of laboratory results Abnormal [facility] TB UA (CLEAN/CATCH) BASEBALL PITCHER/ERICK RO IF IND.on 04-14-2023 BILIRUBIN URINE Negative NEGATIVE [facility] BLOOD URINE Negative NEGATIVE [facility] Clarity (U) CLEAR CLEAR [facility] Color (U) LT. YELLOW YELLOW [facility] GLUCOSE URINE UA >=1000 Abnormal NEGATIVE mg/dL [facility] Ketones Ql (U) Negative NEGATIVE mg/dL [facility] Leukocyte esterase Test strip Ql (U) SMALL Abnormal NEGATIVE [facility] NITRITE URINE Negative NEGATIVE [facility] pH (U) 6.0 [pH] 5.0 - 9.0 [facility] PROTEIN URINE Negative NEG/TRACE mg/dL [facility] SPECIFIC GRAVITY URINE 1.010 1.005 - 1.025 [facility] URINE MICROSCOPIC INDICATED YES [facility] UROBILINOGEN URINE 0.2 EU/dL 0.2 - 1.0 EU/dL [facility] URINE MICROSCOPIC ONLYon 04-14-2023 BACTERIA URINE SMALL Abnormal NONE SEEN #/HPF [facility] CAST SEEN? NONE SEEN NONE SEEN #/LPF [facility] CRYSTALS SEEN? None Seen None Seen #/HPF [facility] MUCUS URINE TRACE Abnormal NONE SEEN [facility] SQUAMOUS EPITHELIAL CELL URINE FEW Abnormal NONE/RARE #/LPF [facility] RBC 0-2 [facility] WBC 10-20 Abnormal NONE SEEN #/HPF [facility] URINE CULTURE INDICATED YES [facility] YEAST URINE SEEN Abnormal NONE SEEN [facility] Comment on above: 4+ BUDDING CBC panel Auto (Bld)on 03-25 Erythrocyte distribution width (RBC) [Ratio] 14.9 % Normal 11.5-15.0 [facility] Comment on above: Order Comment: Speci men Type: BLOOD SPECIMENOrdering Facility: [facility] Address: [address] [place] [address] Performed By: #### 5 8410-2 ####[facility] LABCL[facility] [id number] [place] [address] [place] Hematocrit (Bld) [Volume fraction] 37.0 % Normal 36.0-46.0 [facility] Comment on above: Order Comment: Speci men Type: BLOOD SPECIMENOrdering Facility: [facility] Address: [address] [place] [address] Performed By: #### 5 8410-2 ####[facility] LABIA [id number] [place] [address] [place] Hemoglobin (Bld) [Mass/Vol] 12.1 g/dL Normal 11.5-15.5 [facility] Comment on above: Order Comment: Speci men Type: BLOOD SPECIMENOrdering Facility: [facility] Address: [address] [place] [address] Performed By: #### 5 8410-2 ####[facility] LABIA [id number] [place] [address] [place] MCH (RBC) [Entitic mass] 29.4 pg Normal 26.0-34.0 [facility] Comment on above: Order Comment: Speci men Type: BLOOD SPECIMENOrdering Facility: [facility] Address: [address] [place] [address] Performed By: #### 5 8410-2 ####[facility]CL[facility] [id number] [place] [address] [place] MCHC (RBC) [Mass/Vol] 32.7 g/dL Normal 30.5-36.0 [facility] Comment on above: Order Comment: Speci men Type: BLOOD SPECIMENOrdering Facility: [facility] Address: [address] [place] [address] Performed By: #### 5 8410-2 ####[facility] LABCLIA [id number] [place] [address] [place] MCV (RBC) [Entitic vol] 90.0 fL Normal 80.0-100.0 [facility] Comment on above: Order Comment: Speci men Type: BLOOD SPECIMENOrdering Facility: [facility] Address: [address] [place] [address] Performed By: #### 5 8410-2 ####[facility] LABIA [id number] [place] [address] [place] Nucleated RBC (Bld) [#/Vol] 10*3/uL Normal <0.01 [facility] Comment on above: Order Comment: Speci men Type: BLOOD SPECIMENOrdering Facility: [facility] Address: [address] [place] [address] Performed By: #### 5 8410-2 ####[facility] LABIA [id number] [place] [address] [place] Platelet mean volume (Bld) [Entitic vol] 12.2 fL Normal 9.0-12.7 [facility] Comment on above: Order Comment: Speci men Type: BLOOD SPECIMENOrdering Facility: [facility] Address: [address] [place] [address] Performed By: #### 5 8410-2 ####[facility] LABIA [id number] [place] [address] [place] Platelets (Bld) [#/Vol] 157 10*3/uL Normal 150-400 [facility] Comment on above: Order Comment: Speci men Type: BLOOD SPECIMENOrdering Facility: [facility] Address: [address] [place] [address] Performed By: #### 5 8410-2 ####[facility] LABCLIA [id number] [place] [address] [place] RBC (Bld) [#/Vol] 4.11 10*6/uL Normal 3.90-5.20 [facility] Comment on above: Order Comment: Speci men Type: BLOOD SPECIMENOrdering Facility: [facility] Address: [address] [place] [address] Performed By: #### 5 8410-2 ####[facility] LABCLIA [id number] [place] [address] [place] WBC (Bld) [#/Vol] 3.70 10*3/uL Normal 3.70-11.00 [facility] Comment on above: Order Comment: Speci men Type: BLOOD SPECIMENOrdering Facility: [facility] Address: [address] [place] [address] Performed By: #### 5 8410-2 ####[facility] LABCLIA [id number] [place] [address] [place] CNOVon 03-25-2023 CNOV Office Visit (VASMORGANN ) LUCILA TINEO ([id number]) 1950 F Date Time Provider Department 03/25/23 9:15 AM BRO HAWK During your visit today, we recorded the following information about you: Pulse Blood pressure 104/minute 140/84 Bro Hawk MD 03/25/2023 11:09 AM Signed [facility] Thor[facility] DEPARTMENT OF VASCULAR SURGERY OUTPATIENT VISIT DATE [...] Reactions Peni (more content not included)... Normal [facility] CT BRAIN WO IVCONon 03-25-19 CT BRAIN WO IVCON * * *Final Report* * * DATE OF EXAM: Mar 25 2023 12:09PM [facility] 0504 - CT BRAIN WO IVCON [...] administration for the CTA chest/abdomen/pelvis, degrading assessment. Cloth Winder (topogram) images: No additional findings. Post-operative change: [...] in the right posterior MCA and left HEALTHCARE OR MEDICAL territories with associated encephalomalacic changes, and interval development of high attenuation along the cortical margins on the right and few areas of high attenuation in the left HEALTHCARE OR MEDICAL territory. Findings most likely reflect gyriform enhancement [...] temporal lobe and stable adjacent vasogenic edema. Furnace Mechanic Helper: [facility] Transcribe Date/Time: Mar 25 2023 12:10P Dictated by : KRISTINE SANDHU MD This examination was interpreted and the report reviewed and electronically signed by: KASSANDRA SAYWER MD on Mar 25 2023 12:53PM EST [id number] Normal [facility] CTA ABD/PELV WO/W IVCONon CTA ABD/PELV WO/W IVCON * * *Final Report* * * DATE OF EXAM: Mar 25 2023 10:28AM [facility] ABD/PELV WO/W IVCON / [...] AORTIC DIMENSIONS: AORTIC ROOT: 3.3 cm measured [id number] mid ASCENDING THORACIC AORTA: 3.7 cm mid [...] progression since 2020. No significant changes otherwise. Furnace Mechanic Helper: МАРИНА Transcribe Date/Time: Mar 25 2023 12:00P Dictated by : SOHAM ALEMAN MD This examination was interpreted and the report reviewed and electronically signed by: SOHAM ALEMAN MD on Mar 25 2023 1:16PM EST [id number] Normal [facility] CTA CHEST (NONGATED) WO/W IV CONon 03-25-2023 CTA CHEST (NONGATED) WO/W IVCON * * *Final Report* * * DATE OF EXAM: Mar 25 2023 10:28AM [facility] 0124 - CTA CHEST (NONGATED) WO/W IVCON [...] AORTIC DIMENSIONS: AORTIC ROOT: 3.3 cm measured [id number] mid ASCENDING THORACIC AORTA: 3.7 cm mid [...] progression since 2020. No significant changes otherwise. Furnace Mechanic Helper: [facility] Transcribe Date/Time: Mar 25 2023 12:00P Dictated by : SOHAM ALEMAN MD This examination was interpreted and the report reviewed and electronically signed by: SOHAM ALEMAN MD on Mar 25 2023 1:16PM EST [id number] Normal [facility] Comprehensive metabolic 2000 panelon 03-25-2023 Albumin [Mass/Vol] 3.5 g/dL Low 3.9-4.9 [facility] Comment on above: Order Comment: Speci men Type: BLOOD SPECIMENOrdering Facility: [facility] Address: [address] [place] [address] Performed By: #### 2 4323-8 ####[facility] LABCLIA [id number] [place] [address] [place] ALP [Catalytic activity/Vol] 93 U/L Normal 34-123 [facility] Comment on above: Order Comment: Speci men Type: BLOOD SPECIMENOrdering Facility: [facility] Address: [address] [place] [address] Result Comment: Resu lts may be falsely decreased due to interference from hemolysis. Suggest reorder as clinically indicated. Performed By: #### 2 4323-8 ####[facility] LABCLIA [id number] [place] [address] [place] ALT [Catalytic activity/Vol] 21 U/L Normal 7-38 [facility] Comment on above: Order Comment: Speci men Type: BLOOD SPECIMENOrdering Facility: [facility] Address: [address] [place] [address] Result Comment: Resu lts may be falsely increased due to interference from hemolysis. Suggest reorder as clinically indicated. Performed By: #### 2 4323-8 ####[facility] LABIA [id number] [place] [address] [place] Anion gap [Moles/Vol] 11 mmol/L Normal 9-18 [facility] Comment on above: Order Comment: Speci men Type: BLOOD SPECIMENOrdering Facility: [facility] Address: [address] [place] [address] Performed By: #### 2 4323-8 ####[facility] LABIA [id number] [place] [address] [place] AST [Catalytic activity/Vol] 49 U/L High 13-35 [facility] Comment on above: Order Comment: Speci men Type: BLOOD SPECIMENOrdering Facility: [facility] Address: [address] [place] [address] Result Comment: Resu lts may be falsely increased due to interference from hemolysis. Suggest reorder as clinically indicated. Performed By: #### 2 4323-8 ####[facility] LABIA [id number] [place] [address] [place] Bilirubin [Mass/Vol] 0.4 mg/dL Normal 0.2-1.3 [facility] Comment on above: Order Comment: Speci men Type: BLOOD SPECIMENOrdering Facility: [facility] Address: [address] [id number] Performed By: #### 2 4323-8 ####[facility] LABCLIA [id number] [place] [address] [place] Calcium [Mass/Vol] 9.1 mg/dL Normal 8.5-10.2 [facility] Comment on above: Order Comment: Speci men Type: BLOOD SPECIMENOrdering Facility: [facility] Address: [address] [place] [address] Performed By: #### 2 4323-8 ####[facility] LABCLIA [id number] [place] [address] [place] Chloride [Moles/Vol] 101 mmol/L Normal 97-105 [facility] Comment on above: Order Comment: Speci men Type: BLOOD SPECIMENOrdering Facility: [facility] Address: [address] [place] [address] Performed By: #### 2 4323-8 ####[facility] LABCLIA [id number] [place] [address] [place] CO2 [Moles/Vol] 19 mmol/L Low 22-30 [facility] Comment on above: Order Comment: Speci men Type: BLOOD SPECIMENOrdering Facility: [facility] Address: [address] [place], [place] [address] Performed By: #### 2 4323-8 ####[facility] LABCLIA [id number] [place] [id number] [place] Creatinine [Mass/Vol] 0.60 mg/dL Normal 0.58-0.96 [facility] Comment on above: Order Comment: Speci men Type: BLOOD SPECIMENOrdering Facility: [facility] Address: [address] [place], [place] [address] Performed By: #### 2 4323-8 ####[facility] LABCLIA [id number] [place] [id number] [place] Creatinine and Glomerular filtration rate.predicted panel (S/P/Bld) 95 mL/min/1.73m??? Normal >=60 [facility] Comment on above: Order Comment: Letty sanchez Type: BLOOD SPECIMENOrdering Facility: [facility] Address: [address] [place] [address] Result Comment: Janice mated Glomerular Filtration Rate [...] actual GFR. Performed By: #### 2 4323-8 ####[facility] LABCLIA [id number] [place] [address] [place] Glucose [Mass/Vol] 435 mg/dL High 74-99 [facility] Comment on above: Order Comment: Letty sanchez Type: BLOOD SPECIMENOrdering Facility: [facility] Address: [address] [place] [address] Result Comment: The [place] Diabetes Association (ADA) provides guidance for cutoff [...] Standards of Medical Care in Diabetes 2016, [place] Diabetes Association. Diabetes Care. 2016.39(Suppl 1). Performed By: #### 2 4323-8 ####[facility] LABCLIA [id number] [place] [address] [place] Potassium [Moles/Vol] Normal [facility] Comment on above: Order Comment: Speci men Type: BLOOD SPECIMENOrdering Facility: [facility] Address: [address] [place] [address] Result Comment: Unab le to assay due to interference from hemolysis. Suggest reorder as clinically indicated. Performed By: #### 2 4323-8 ####[facility] LABCLIA [id number] [place] [address] [place] Protein [Mass/Vol] 6.7 g/dL Normal 6.3-8.0 [facility] Comment on above: Order Comment: Speci men Type: BLOOD SPECIMENOrdering Facility: [facility] Address: [address] [place] [address] Result Comment: Resu lts may be falsely increased due to interference from hemolysis. Suggest reorder as clinically indicated. Performed By: #### 2 4323-8 ####[facility] LABCLIA [id number] [place] [address] [place] Sodium [Moles/Vol] 131 mmol/L Low 136-144 [facility] Comment on above: Order Comment: Speci men Type: BLOOD SPECIMENOrdering Facility: [facility] Address: [address] [place] [address] Performed By: #### 2 4323-8 ####[facility] LABCLIA [id number] [place] [address] [place] Urea nitrogen [Mass/Vol] 16 mg/dL Normal 7-21 [facility] Comment on above: Order Comment: Speci men Type: BLOOD SPECIMENOrdering Facility: [facility] Address: [address] [place] [address] Performed By: #### 2 4323-8 ####[facility] LABCLIA [id number] [place] [address] [place] ECG COMPLETEon 03-25-2023 ECG COMPLETE Ventricular Rate : 8 9 BPM Atrial Rate : 89 BPM P-R Interval : 146 ms QRS Duration : 72 ms Q-T Interval : 370 ms QTC Calculation(Bazett) : 450 ms Calculated P Hamlin : 21 degrees Calculated R Hamlin : -6 degrees Calculated T Hamlin : 3 degrees NORMAL SINUS RHYTHM . BORDERLINE ECG Confirmed by DO CHRISTINE BRUCE ([id number]), international editorial producer YONY CHRIS ([id number]) on 03/27/2023 9:35:29 AM NAME : LUCILA TINEO PID : [id number] : 1950 Gender : Female Race : ORD : [id number] Procedure Date : Mar 25 2023 11:38:10 Edit Date : Mar 27 2023 09:35:30 Diagnosis: NORMAL SINUS RHYTHM . BORDERLINE ECG Confirmed by DO CHRISTINE BRUCE ([id number]), international editorial producer YONY CHRIS ([id number]) on 03/27/2023 9:35:29 AM Test Reason : Chest Pain Location : 2 : EDNS E018 Overread By : DO CHRISTINE BRUCE Edited By : YONY CHRIS Referred By : , Acquired by : , [facility] ED NOTEon 03-25-2023 ED NOTE HNO ID: [id number] Author: SEPIDEH DE DIOS Medic Service: Emergency Medicine Author Type: Disassembler and Medical Authorization Specialist Type: ED Notes Filed: 03/25/2023 16:57 Note Text: 3rd trop sent via straight stick in left hand [facility] ED NOTE HNO ID: [id number] Author: ESTHELA RAMAN RN Service: ? Author Type: Registered Nurse Type: ED Notes Filed: 03/25/2023 11:23 Note Text: Bed: E18-11 Expected date: Expected time: Means of arrival: Comments: HUGO Normal [facility] ED PROV NOTEon 03-25-2023 ED PROV NOTE HNO ID: [id number] Author: EDWARD CHRISTINE DO Service: Emergency Medicine [...] glucose(s) SHIRA (renal artery stenosis) ([facility]) 2 arteries partially occluded Thoracoabdominal aortic aneurysm (TAAA) ([facility]) PAST SURGICAL HISTORY Procedure Laterality Date APPENDECTOMY [...] pain, unspecified type Coronary artery disease involving s[place]ovia coronary artery of [place]ov[place] heart without angina pectoris Uncontrolled type 2 [...] emergency depar (more content not included)... Normal [facility] HIGH SENSITIVITY TROPONIN T (INITIAL)on 03-25-2023 Troponin T.cardiac High sensitivity method [Mass/Vol] 18 ng/L High <12 [facility] Comment on above: Order Comment: Speci men Type: BLOOD SPECIMENOrdering Facility: [facility] Address: [address] [place] [address] Result Comment: When assessing risk for acute [...] 30 day MACE. Performed By: #### L [id number] ####[facility] LABCLIA [id number] [place] [address] [place] HIGH SENSITIVITY TROPONIN T (SECOND)on 03-25-2023 Troponin T.cardiac High sensitivity method [Mass/Vol] 17 ng/L High <12 [facility] Comment on above: Order Comment: Speci men Type: BLOOD SPECIMENOrdering Facility: [facility] Address: [address] [place] [address] Result Comment: When assessing risk for acute [...] 30 day MACE. Performed By: #### L [id number] ####[facility] LABCLIA [id number] [address] [place] HIGH SENSITIVITY TROPONIN T (THIRD) 3 HRS AFTER INITIALon 03-25-2023 Troponin T.cardiac High sensitivity method [Mass/Vol] 18 ng/L High <12 [facility] Comment on above: Order Comment: Letty men Type: BLOOD SPECIMENOrdering Facility: [facility] Address: [address] [place] [address] Result Comment: When assessing risk for acute [...] 30 day MACE. 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 Looking for a Thursday apt. Contact Name: Mila Kramer Home and cell number: [phone] Diagnosis: TAAA. Rapid new growth Kind Regards, Darryl Sauer Allergies As of Date: 03/13/2023 Noted Allergy [...] by DARRYL SAUER on 03/13/[address] [facility] Fernando [facility] LUCILA TINEO ([id number]) 1950 F Date Time Provider Department 01/02/23 JAH SHARPE [facility] During your visit today, we recorded the following information about you: Lane Vogt, SHREYA 01/02/2023 1:34 PM Signed Voice mail left for daughter to discuss plan of care for follow up of cerebral aneurysm as discussed with Dr Sharpe at appointment. Imaging in 6 months versus cerebral angiogram. Requested daughter to either call this office or send a [employer] message with preference Elisa Lees 01/07/2023 12:30 PM Signed Daughter, Mila Kramer returned call - please call [phone]. Lane Vogt, RN 01/07/2023 12:43 PM Signed Attempted to return call, voice mail left for daughter with office number to return call to this office at her convenience. Jenny Moreno 01/07/2023 2:14 PM Signed Please call daughter back at [phone]. Until 4pm. 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 Fernando 12-04-2022 [facility] ([facility]) RIVKALUCILA ([id number]) 1950 F Date Time Provider Department 12/04/22 NEUROLOGY PROVIDER [facility] During your visit today, we recorded the following information about you: Tonja Andre 12/04/2022 12:49 PM Signed ENDOVASCULAR INTAKE Patient name: Lucila Tineo Confirm Diagnosis/RFV (Reason for Visit): Aneurysm Is this a self-referral? no, who is the referring provider : Osei Roe [employer] in [facility], [place]/His direct office number if any questions: [phone] Is this a direct referral? yes neurosurgeon Have you been recommended for surgery or procedure? Yes. coiling Are you seeking a second opinion? Yes. Do you have a MRI/MRA/CT/Ultrasound for this diagnosis? Yes. Type of imaging CT's, name/address of facility where completed [facility]. [Only has reports in folder, no images] [...] 2:22 PM Addendum OSH imaging/records received from [facility]: December 04, [address] Roe Progress Notes scanned to chart. PENDING: -2022 Imaging -Medical Hx AND Imaging Reports Walked discs over to imaging library + gave to [facility] to upload MAGDALENE. Successfully sent CARRI AND [employer]ex overnight label via [employer]~ Tracking#[id number] December 05, 2022 10:30 AM 07 [employer]Ex Priority Overnight? $14.14 From: Theresa Andre Last change on 12/04/2022 12:16:46 pm Sent on 12/04/2022 12:16:33 pm Completed Tonja Andre 12/09/2022 2:25 PM Addendum OSH imaging/records received from [facility]: December 08, [address] Roe Progress [...] 100 unit (more content not included)... Normal [facility] SCREENING MAMMOGRAM W/SAULO, BILATERAL*on 04-24-2022 [...] VERY IMPORTANT TO YOUR HEALTH. THE CURRENT [employer] GUIDELINES RECOMMENDS ANNUAL MAMMOGRAPHY BEGINNING AT AGE 40 THIS FACILITY USES A REMINDER SYSTEM TO ENSURE ALL PATIENTS RECEIVE REMINDER NOTIFICATIONS AT THE APPROPRIATE TIME BASED ON THE RECOMMENDATIONS OF THIS EXAM. Report reported and signed by Silviano Roth on 04/25/[address] [facility] [place] [facility] Pathology Secretary/Transcriptionist Office Visit (Cardiology)on 12-11-2021 Follow-up visit Diagnoses/Problems [...] we can help. You may also call [phone] for free resources and assistance.; Status:Complete - [...] illicit drug use Vitals Vital Signs Recorded: [id number] 11:20AM Heart Rate76, L Radial Outknfoz442, LUE, Sitting Pgklwrmxb12, LUE, Sitting Height5 ft 4 in Eublbz374 lb BMI Xpyrmsyxrf73.98 kg/m2 BSA Calculated1.79 Tobacco Usea) Yes Patient encouraged to stop using tobacco productsYes PHQ-2 #1. Over the last 2 weeks have you felt down, depressed or hopeless? (If yes, answer PHQ-9 below)No PHQ-2 #2. Over the last 2 weeks have you felt little interest or pleasure in doing things? (If yes, answer PHQ-9 below)No Fa (more content not included)... Normal [employer] Tobacco Screening.on Adult depression screening assessment No [facility] 250 DO Work Phone: Fall risk assessment b) One or more fall s in the last year [facility] 250 DO Work Phone: Tobacco use status [facility] a) Yes [facility] 250 DO Work Phone: Tobacco Screening. Yes [facility] 250 DO Work Phone: XR Spine Lumbar Complete w/F tyrone AND [place] 11-18-2021 XR Spine Lumbar Complete w/Flex AND [...] by Silviano Roth on 11/18/[address] [facility] [place] [facility] Pathology Secretary/Transcriptionist US Venous, Bilateral, [place] 10-02-2021 US Venous, Bilateral, Lower Ext FINDINGS: [...] by Silviano Roth on 10/03/[address] [facility] [place] [facility]ology Secretary/Transcriptionist Office Visit (Cardiology)on 02-05-2021 Follow-up visit Diagnoses/Problems Assessed Hypertension (401.9) (I10) Remains suboptimal CAD (coronary artery disease) (414.00) (I25.10) July 2020 ACS admit Cath: pRCA CERAMIC ARTIST with unsuccessful antegrade attempt, fills left to [...] ONCE DAILY Basic Metabolic Panel; Status:Active; Requested for:70Zyc2309; SocHx: Current every day smoker Tobacco Use Screening; Status:Complete; Done: 19Yxv0071 Patient Instructions PLAN: Through informed decision making [...] contact the office if new symptoms arise. ACCESS CONSULTANT in 2 weeks Adhering to 2017 AHA/ACC [...] hospitalized overnight and treated with infusion. 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 Fully recovered. [...] smoker (305.1) (more content not included)... Normal [employer] Tobacco Screening.on 021 Fall risk assessment a) No falls within the last year [facility] 250 DO Work Phone: Tobacco use status CP a) Yes [facility] 250 DO Work Phone: Tobacco Screening. Yes [facility] 250 DO Work Phone: Tobacco Screening.on 021 Fall risk assessment a) No falls within the last year [facility] 600 DO Work Phone: Tobacco use status [facility] a) Yes [facility] 600 DO Work Phone: Tobacco Screening. Yes [facility] 600 DO Work Phone: Comprehensive Metabolic Pane dom 08-08-2020 Albumin [Mass/Vol] 3.1 g/dL Low 3.2-5.5 [facility] Comment on above: Performed By: #### C MP #### [address] Albumin/Globulin [Mass ratio] 0.9 {ratio} Normal [facility] Comment on above: Performed By: #### C MP #### [facility] [address] [place] [id number] [place] ALP [Catalytic activity/Vol] 98 U/L High 32-[address] [facility] Comment on above: Performed By: #### C MP #### [place] [id number] [facility] ALT [Catalytic activity/Vol] 17 U/L Normal 10-[address] [facility] Comment on above: Performed By: #### C MP #### [facility] [address] [place] [phone] [place] AST [Catalytic activity/Vol] 24 U/L Normal 10-[address] [facility] Comment on above: Performed By: #### C MP #### [place] [id number] [place] Bilirubin [Mass/Vol] 0.6 mg/dL Normal 0.3-1.2 [facility] Comment on above: Performed By: #### C MP #### [place] [id number] [place] Calcium [Mass/Vol] 8.8 mg/dL Normal 8.2-10.2 [facility] Comment on above: Performed By: #### C MP #### [address] Chloride [Moles/Vol] 103 mmol/L Normal 95-114 [facility] Comment on above: Performed By: #### C MP #### [address] CO2 [Moles/Vol] 20.4 mmol/L Low 22.0-30.0 [facility] Comment on above: Performed By: #### C MP #### [address] Creatinine [Mass/Vol] 1.06 mg/dL High 0.44-1.[address] [facility] Comment on above: Performed By: #### C MP #### [address] Creatinine Clr Calc Pharmacy 49.44 [facility] Comment on above: Result Comment: PERF ORMED BY: [place] [address] PATHOLOGIST GARAGE DOOR INSTALLER DOMINGA SOLIMAN M.D. Performed By: #### C MP #### [address] Estimated GFR ( Garce > 60 [facility] Comment on above: Result Comment: GFR estimated reference range: According to KDOQI guidelines, <60 ml/min/1.73m2 is sufficient to diagnose a patient with chronic kidney disease. Performed By: #### C MP #### [address] Estimated GFR (Non- Am 51 [facility] Comment on above: Performed By: #### C MP #### [address] Globulin (S) [Mass/Vol] 3.3 g/dL [facility] Comment on above: Performed By: #### C MP #### [place] [id number] [place] Glucose [Mass/Vol] 282 mg/dL High 70-100 [facility] Comment on above: Result Comment: [place] Glucose Reference Range is dependent on time and content of last meal. Glucose of more than 200 mg/dL in a nonstressed, ambulatory subject supports the diagnosis of Diabetes Mellitus. ADA recommended reference range Performed By: #### C MP #### [facility] [address] Potassium [Moles/Vol] 4.5 mmol/L Normal 3.5-5.[address] [facility] Comment on above: Performed By: #### C MP #### [facility] [address] Protein [Mass/Vol] 6.4 g/dL Normal 6.1-7.9 [facility] Comment on above: Performed By: #### C MP #### [address] Sodium [Moles/Vol] 134 mmol/L Low 136-146 [facility] Comment on above: Performed By: #### C MP #### [facility] [address] Urea nitrogen [Mass/Vol] 29 mg/dL High 9-[address] [facility] Comment on above: Performed By: #### C MP #### [address] ECG 12 lead ECGon 08-08-2020 ECG 12 lead ECG [facility] Main [place] [address] [place] [address] Electrocardiograph Report Signed Patient: Lucila Tineo MR#: [id number] : 1950 Acct:[id number] Age/Sex: 70 / F ADM Date: 08/06/20 Loc: Room: [address] [place] [address] Type: ADM IN Attending Dr: Drew Patterson [...] 10:17:41 AM Referred By: Electronically Signed By:MARSHALL CSATILLO MD Transcribed By: MUS Dictated By: Marshall Castillo MD 08/08/20 0734 Signed By: 08/08/20 1017 [facility] Glucose Poct Glucometerson 0 08-08-2020 Commemt1 Glu2: Cleaned Meter [facility] Comment on above: Result Comment: PERF ORMED BY: [place] [address] PATHOLOGIST GARAGE DOOR INSTALLER DOMINGA SOLIMAN M.D. Performed By: #### P T, CBC, PTT #### [address] Glucose [Mass/Vol] 354 mg/dL [facility] Comment on above: Result Comment: [facility] Glucose Reference Range is dependent on time and content of last meal. Glucose of more than 200 mg/dL in a nonstressed, ambulatory subject supports the diagnosis of Diabetes Mellitus. Performed By: #### P T, CBC, PTT #### [facility] [address] [place] [address] Commemt1 Glu2: Cleaned Meter [facility] Comment on above: Result Comment: PERF ORMED BY: [facility] [address] [place] [address] PATHOLOGIST GARAGE DOOR INSTALLER DOMINGA SOLIMAN M.D. Performed By: #### P T, CBC, PTT #### [facility] [address] [place], [place] [id number] [facility] Glucose [Mass/Vol] 380 mg/dL Normal [facility] Comment on above: Result Comment: [place] om Glucose Reference Range is dependent on time and content of last meal. Glucose of more than 200 mg/dL in a nonstressed, ambulatory subject supports the diagnosis of Diabetes Mellitus. Performed By: #### P T, CBC, PTT #### [address] Glucose [Mass/Vol] 80 mg/dL [facility] Comment on above: Result Comment: [place] om Glucose Reference Range is dependent on time and content of last meal. Glucose of more than 200 mg/dL in a nonstressed, ambulatory subject supports the diagnosis of Diabetes Mellitus. PERFORMED BY: [place] [address] PATHOLOGIST GARAGE DOOR INSTALLER DOMINGA SOLIMAN M.D. Performed By: #### P T, CBC, PTT #### [address] Commemt1 [facility] Comment on above: Result Comment: Glu2 : FOLLOW HYPOGLYCEMIC Performed By: #### P T, CBC, PTT #### [address] Commemt2 Cleaned Meter [facility] Comment on above: Performed By: #### P T, CBC, PTT #### [address] Commemt3 WILL NOTIFY DR/RN [facility] Comment on above: Result Comment: PERF ORMED BY: [place] [address] PATHOLOGIST GARAGE DOOR INSTALLER DOMINGA SOLIMAN M.D. Performed By: #### P T, CBC, PTT #### [address] Glucose [Mass/Vol] 42 mg/dL Off scale low [facility] Comment on above: Result Comment: [place] om Glucose Reference Range is dependent on time and content of last meal. Glucose of more than 200 mg/dL in a nonstressed, ambulatory subject supports the diagnosis of Diabetes Mellitus. Performed By: #### P T, CBC, PTT #### [address] [place] [address] [place] Troponin I(TnI)on 08-08-2020 Troponin I.cardiac [Mass/Vol] 2.45 ng/mL Off scale high 0-0.[address] [facility] Comment on above: Result Comment: [place] Cut off value > or equal to 0.03 ng/mL in conjunction with clinical conditions of myocardial infarction. (www.escardio.org/guidelines) PERFORMED BY: [place] [address] PATHOLOGIST GARAGE DOOR INSTALLER DOMINGA SOLIMAN M.D. Performed By: #### T ROP #### [facility] [address] [place] [address] A1C with Estimated Average G luon 08-07-2020 Glucose [Mass/Vol] 183 mg/dL Normal [facility] Comment on above: Result Comment: PERF ORMED BY: [place] [address] PATHOLOGIST GARAGE DOOR INSTALLER DOMINGA SOLIMAN M.D. Performed By: #### G LULS #### Point of Care testing , HbA1c (Bld) [Mass fraction] 8.0 % High 4.3-5.[address] [facility] Comment on above: Result Comment: Incr eased risk for diabetes: 5.7 - 6.4 diabetes: >6.4 glycemic control for adults with diabetes: <7.0 Performed By: #### G LULS #### Point of Care testing , Complete Blood Count Auto Di ffon 08-07-2020 Basophils (Bld) [#/Vol] 0.1 10*3/uL Normal 0.0-0.[address] [facility] Comment on above: Result Comment: PERF ORMED BY: [address] [place] [address] PATHOLOGIST GARAGE DOOR INSTALLER DOMINGA SOLIMAN M.D. Performed By: #### G LULS #### Point of Care testing , Basophils/100 WBC (Bld) 1.4 % Normal . [facility] Comment on above: Performed By: #### G LULS #### Point of Care testing , Eosinophils (Bld) [#/Vol] 0.1 10*3/uL Normal 0.0-0.[address] [facility] Comment on above: Performed By: #### [place] MUNROE #### Point of Care testing , Eosinophils/100 WBC (Bld) 2.6 % Normal . [facility] Comment on above: Performed By: #### G ARVINDLS #### Point of Care testing , Erythrocyte distribution width (RBC) [Ratio] 15.6 % High 11.9-15.[address] [facility] Comment on above: Performed By: #### [place] MUNROE #### Point of Care testing , Hematocrit (Bld) [Volume fraction] 39.8 % Normal 34.0-46.[address] [facility] Comment on above: Performed By: #### [place] SAMUELSLS #### Point of Care testing , Hemoglobin (Bld) [Mass/Vol] 13.8 g/dL Normal 11.8-15.[address] [facility] Comment on above: Performed By: #### [place] MUNROE #### Point of Care testing , Lymphocytes (Bld) [#/Vol] 1.5 10*3/uL Normal 1.00-4.[address] [facility] Comment on above: Performed By: #### [place] MUNROE #### Point of Care testing , Lymphocytes/100 WBC (Bld) 26.4 % Normal . [facility] Comment on above: Performed By: #### [place] SAMUELSLS #### Point of Care testing , MCH (RBC) [Entitic mass] 30.9 pg Normal 24.7-34.[address] [facility] Comment on above: Performed By: #### [place] MUNROE #### Point of Care testing , MCV (RBC) [Entitic vol] 89.0 fL Normal 80-[address] [facility] Comment on above: Performed By: #### [place] MUNROE #### Point of Care testing , Mean Corpuscular HGB Conc 34.8 g/dL Normal 32.0-35.[address] [facility] Comment on above: Performed By: #### [place] MUNROE #### Point of Care testing , Monocytes (Bld) [#/Vol] 0.4 10*3/uL Normal 0.0-0.[address] [facility] Comment on above: Performed By: #### G ARVINDLS #### Point of Care testing , Monocytes/100 WBC (Bld) 7.0 % Normal . [facility] Comment on above: Performed By: #### G LULS #### Point of Care testing , Neutrophils (Bld) [#/Vol] 3.6 10*3/uL Normal 1.8-7.[address] [facility] Comment on above: Performed By: #### G LULS #### Point of Care testing , Neutrophils/100 WBC (Bld) 62.6 % Normal . [facility] Comment on above: Performed By: #### G ARVINDLS #### Point of Care testing , Nucleated RBC/100 WBC (Bld) [Ratio] 0.4 % Normal 0-0.[address] [facility] Comment on above: Performed By: #### G ARVINDLS #### Point of Care testing , Platelet mean volume (Bld) [Entitic vol] 9.1 fL Normal 6.3-10.[address] [facility] Comment on above: Performed By: #### G ARVINDLS #### Point of Care testing , Platelets (Bld) [#/Vol] 201 10*3/uL Normal 150-[address] [facility] Comment on above: Performed By: #### G ARVINDLS #### Point of Care testing , RBC (Bld) [#/Vol] 4.47 10*6/uL Normal 3.60-5.00 [facility] Comment on above: Performed By: #### G ARVINDLS #### Point of Care testing , WBC (Bld) [#/Vol] 5.7 10*3/uL Normal 4.5-11.0 [facility] Comment on above: Performed By: #### G LULS #### Point of Care testing , Basophils (Bld) [#/Vol] 0.1 10*3/uL Normal 0.0-0.[address] [facility] Comment on above: Result Comment: PERF ORMED BY: [facility] [place] [address] PATHOLOGIST [employer] INST[employer]ER DOMINGA SOLIMAN M.D. Performed By: #### P T, CBC, PTT #### [facility] [address] Basophils/100 WBC (Bld) 0.7 % Normal . [facility] Comment on above: Performed By: #### P T, CBC, PTT #### [facility] [address] Eosinophils (Bld) [#/Vol] 0.1 10*3/uL Normal 0.0-0.[address] [facility] Comment on above: Performed By: #### P T, CBC, PTT #### [address] Eosinophils/100 WBC (Bld) 1.5 % Normal . [facility] Comment on above: Performed By: #### P T, CBC, PTT #### [address] Erythrocyte distribution width (RBC) [Ratio] 15.4 % High 11.9-15.[address] [facility] Comment on above: Performed By: #### P T, CBC, PTT #### [address] Hematocrit (Bld) [Volume fraction] 41.4 % Normal 34.0-46.[address] [facility] Comment on above: Performed By: #### P T, CBC, PTT #### [place] [address] [place] Hemoglobin (Bld) [Mass/Vol] 14.0 g/dL Normal 11.8-15.[address] [facility] Comment on above: Performed By: #### P T, CBC, PTT #### [place] [address] [place] Lymphocytes (Bld) [#/Vol] 2.0 10*3/uL Normal 1.00-4.[address] [facility] Comment on above: Performed By: #### P T, CBC, PTT #### [place] [address] [place] Lymphocytes/100 WBC (Bld) 30.1 % Normal . [facility] Comment on above: Performed By: #### P T, CBC, PTT #### [facility] [address] [place] [address] MCH (RBC) [Entitic mass] 30.4 pg Normal 24.7-34.[address] [facility] Comment on above: Performed By: #### P T, CBC, PTT #### [address] MCV (RBC) [Entitic vol] 89.6 fL Normal 80-[address] [facility] Comment on above: Performed By: #### P T, CBC, PTT #### [address] Mean Corpuscular HGB Conc 33.9 g/dL Normal 32.0-35.[address] [facility] Comment on above: Performed By: #### P T, CBC, PTT #### [address] Monocytes (Bld) [#/Vol] 0.4 10*3/uL Normal 0.0-0.[address] [facility] Comment on above: Performed By: #### P T, CBC, PTT #### [address] Monocytes/100 WBC (Bld) 6.4 % Normal . [facility] Comment on above: Performed By: #### P T, CBC, PTT #### [address] Neutrophils (Bld) [#/Vol] 4.2 10*3/uL Normal 1.8-7.[address] [facility] Comment on above: Performed By: #### P T, CBC, PTT #### [address] Neutrophils/100 WBC (Bld) 61.3 % Normal . [facility] Comment on above: Performed By: #### P T, CBC, PTT #### [facility] [address] [place] [address] Nucleated RBC/100 WBC (Bld) [Ratio] 0.1 % Normal 0-0.[address] [facility] Comment on above: Performed By: #### P T, CBC, PTT #### [address] Platelet mean volume (Bld) [Entitic vol] 8.9 fL Normal 6.3-10.[address] [facility] Comment on above: Performed By: #### P T, CBC, PTT #### [address] Platelets (Bld) [#/Vol] 197 10*3/uL Normal 150-[address] [facility] Comment on above: Performed By: #### P T, CBC, PTT #### [address] RBC (Bld) [#/Vol] 4.62 10*6/uL Normal 3.60-5.00 [facility] Comment on above: Performed By: #### P T, CBC, PTT #### [address] WBC (Bld) [#/Vol] 6.8 10*3/uL Normal 4.5-11.0 [facility] Comment on above: Performed By: #### P T, CBC, PTT #### [address] Comprehensive Metabolic Pane dom 08-07-2020 Albumin [Mass/Vol] 3.4 g/dL Normal 3.2-5.5 [facility] Comment on above: Performed By: #### G LULS #### Point of Care testing , Albumin/Globulin [Mass ratio] 1.0 {ratio} Normal [facility] Comment on above: Performed By: #### G LULS #### Point of Care testing , ALP [Catalytic activity/Vol] 107 U/L High 32-[address] [facility] Comment on above: Performed By: #### G LULS #### Point of Care testing , ALT [Catalytic activity/Vol] 17 U/L Normal 10-[address] [facility] Comment on above: Performed By: #### G ARVINDLS #### Point of Care testing , AST [Catalytic activity/Vol] 25 U/L Normal 10-[address] [facility] Comment on above: Performed By: #### G ARVINDLS #### Point of Care testing , Bilirubin [Mass/Vol] 0.9 mg/dL Normal 0.3-1.2 [facility] Comment on above: Performed By: #### G ARVINDLS #### Point of Care testing , Calcium [Mass/Vol] 9.1 mg/dL Normal 8.2-10.2 [facility] Comment on above: Performed By: #### G ARVINDLS #### Point of Care testing , Chloride [Moles/Vol] 105 mmol/L Normal 95-114 [facility] Comment on above: Performed By: #### G ARVINDLS #### Point of Care testing , CO2 [Moles/Vol] 20.9 mmol/L Low 22.0-30.0 [facility] Comment on above: Performed By: #### G ARVINDLS #### Point of Care testing , Creatinine [Mass/Vol] 0.96 mg/dL Normal 0.44-1.[address] [facility] Comment on above: Performed By: #### G ARVINDLS #### Point of Care testing , Creatinine Clr Calc Pharmacy 54.35 [facility] Comment on above: Performed By: #### G ARVINDLS #### Point of Care testing , Estimated GFR ( Grace > 60 [facility] Comment on above: Result Comment: GFR estimated reference range: According to KDOQI guidelines, <60 ml/min/1.73m2 is sufficient to diagnose a patient with chronic kidney disease. Performed By: #### G ARVINDLS #### Point of Care testing , Estimated GFR (Non- Am 57 [facility] Comment on above: Performed By: #### G ARVINDLS #### Point of Care testing , Globulin (S) [Mass/Vol] 3.5 g/dL [facility] Comment on above: Performed By: #### G ARVINDLS #### Point of Care testing , Glucose [Mass/Vol] 391 mg/dL High 70-100 [facility] Comment on above: Result Comment: [place] Glucose Reference Range is dependent on time and content of last meal. Glucose of more than 200 mg/dL in a nonstressed, ambulatory subject supports the diagnosis of Diabetes Mellitus. ADA recommended reference range Performed By: #### G ARVINDLS #### Point of Care testing , Potassium [Moles/Vol] 4.4 mmol/L Normal 3.5-5.[address] [facility] Comment on above: Performed By: #### G ARVINDLS #### Point of Care testing , Protein [Mass/Vol] 6.9 g/dL Normal 6.1-7.9 [facility] Comment on above: Performed By: #### G ARVINDLS #### Point of Care testing , Sodium [Moles/Vol] 136 mmol/L Normal 136-146 [facility] Comment on above: Performed By: #### G ARVINDLS #### Point of Care testing , Urea nitrogen [Mass/Vol] 19 mg/dL Normal 9-[address] [facility] Comment on above: Performed By: #### G ARVINDLS #### Point of Care testing , Albumin [Mass/Vol] 3.4 g/dL Normal 3.2-5.5 [facility] Comment on above: Performed By: #### G ARVINDLS #### Point of Care testing , Albumin/Globulin [Mass ratio] 0.9 {ratio} Normal [facility] Comment on above: Performed By: #### G ARVINDLS #### Point of Care testing , ALP [Catalytic activity/Vol] 100 U/L High 32-[address] [facility] Comment on above: Performed By: #### G ARVINDLS #### Point of Care testing , ALT [Catalytic activity/Vol] 17 U/L Normal 10-[address] [facility] Comment on above: Performed By: #### G ARVINDLS #### Point of Care testing , AST [Catalytic activity/Vol] 34 U/L Normal 10-[address] [facility] Comment on above: Performed By: #### G ARVINDLS #### Point of Care testing , Bilirubin [Mass/Vol] 0.8 mg/dL Normal 0.3-1.2 [facility] Comment on above: Performed By: #### G LULS #### Point of Care testing , Calcium [Mass/Vol] 9.2 mg/dL Normal 8.2-10.2 [facility] Comment on above: Performed By: #### G LULS #### Point of Care testing , Chloride [Moles/Vol] 104 mmol/L Normal 95-114 [facility] Comment on above: Performed By: #### G LULS #### Point of Care testing , CO2 [Moles/Vol] 20.0 mmol/L Low 22.0-30.0 [facility] Comment on above: Performed By: #### G LULS #### Point of Care testing , Creatinine [Mass/Vol] 0.95 mg/dL Normal 0.44-1.[address] [facility] Comment on above: Performed By: #### G LULS #### Point of Care testing , Creatinine Clr Calc Pharmacy 55.10 [facility] Comment on above: Result Comment: PERF ORMED BY: [facility] [address] [place] [address] PATHOLOGIST [employer] INST[employer]ER DOMINGA SOLIMAN M.D. Performed By: #### G LULS #### Point of Care testing , Estimated GFR ( Grace > 60 [facility] Comment on above: Result Comment: GFR estimated reference range: According to KDOQI guidelines, <60 ml/min/1.73m2 is sufficient to diagnose a patient with chronic kidney disease. Performed By: #### G LULS #### Point of Care testing , Estimated GFR (Non- Am 58 [facility] Comment on above: Performed By: #### G LULS #### Point of Care testing , Globulin (S) [Mass/Vol] 3.6 g/dL [facility] Comment on above: Performed By: #### G LULS #### Point of Care testing , Glucose [Mass/Vol] 271 mg/dL High 70-100 [facility] Comment on above: Result Comment: [place] Glucose Reference Range is dependent on time and content of last meal. Glucose of more than 200 mg/dL in a nonstressed, ambulatory subject supports the diagnosis of Diabetes Mellitus. ADA recommended reference range Performed By: #### G LULS #### Point of Care testing , Potassium [Moles/Vol] 4.0 mmol/L Normal 3.5-5.[address] [facility] Comment on above: Performed By: #### G LULS #### Point of Care testing , Protein [Mass/Vol] 7.0 g/dL Normal 6.1-7.9 [facility] Comment on above: Performed By: #### G LULS #### Point of Care testing , Sodium [Moles/Vol] 136 mmol/L Normal 136-146 [facility] Comment on above: Performed By: #### G LULS #### Point of Care testing , Urea nitrogen [Mass/Vol] 15 mg/dL Normal 9-[address] [facility] Comment on above: Performed By: #### G LULS #### Point of Care testing , [facility] echo transthoracicon [facility] echo transthoracic [facility] [place] [address] Echocardiogram Signed Patient: Lucila Tineo MR#: [id number] : 1950 Acct:[id number] Age/Sex: 70 / F ADM Date: 08/06/20 Loc: Room: [address] [place] [address] Type: ADM IN Attending Dr: Drew Patterson MD Ordering Provider: Bravo Abdi MD Date of Service: 08/06/20 [facility] echo transthoracic: NSTEMI, wall motion abnormalities Copies to: MD Cory Del Toro MD, [facility] Height: 64 in Weight: 167 [...] mmHg MR max P.8 mmHg Transcribed By: [facility] 08/07/20 1127 Dictated By: Cory Rudd MD, [facility] 08/07/20 0927 Signed By: 08/07/20 1127 [facility] Glucose Poct Glucometerson 0 08-07-2020 Commemt3 Cleaned Meter [facility] Comment on above: Result Comment: PERF ORMED BY: [facility] [address] [place] [address] PATHOLOGIST [employer] INST[employer]ER DOMINGA SOLIMAN M.D. Performed By: #### G LULS #### Point of Care testing , Glucose [Mass/Vol] 503 mg/dL Off scale high [facility] Comment on above: Result Comment: [place] om Glucose Reference Range is dependent on time and content of last meal. Glucose of more than 200 mg/dL in a nonstressed, ambulatory subject supports the diagnosis of Diabetes Mellitus. Performed By: #### G LULS #### Point of Care testing , Commemt1 Glu2: Cleaned Meter [facility] Comment on above: Result Comment: PERF ORMED BY: [place] [address] PATHOLOGIST [employer] INST[employer]ER DOMINGA SOLIMAN M.D. Performed By: #### G LULS #### Point of Care testing , Glucose [Mass/Vol] 299 mg/dL [facility] Comment on above: Result Comment: [place] om Glucose Reference Range is dependent on time and content of last meal. Glucose of more than 200 mg/dL in a nonstressed, ambulatory subject supports the diagnosis of Diabetes Mellitus. Performed By: #### G LULS #### Point of Care testing , Commemt1 [facility] Comment on above: Result Comment: Glu2 : Will Repeat Test Performed By: #### G LULS #### Point of Care testing , Result Comment: Glu2 : WILL NOTIFY DR/RN Commemt2 Cleaned Meter [facility] Comment on above: Result Comment: PERF ORMED BY: [place] [address] PATHOLOGIST [employer] INST[employer]ER DOMINGA SOLIMAN M.D. Performed By: #### G LULS #### Point of Care testing , Glucose [Mass/Vol] 429 mg/dL Off scale [facility] Comment on above: Result Comment: [place] om Glucose Reference Range is dependent on time and content of last meal. Glucose of more than 200 mg/dL in a nonstressed, ambulatory subject supports the diagnosis of Diabetes Mellitus. Performed By: #### G LULS #### Point of Care testing , Commemt1 Glu2: Cleaned Meter [facility] Comment on above: Performed By: #### P T, CBC, PTT #### [facility] [address] [place] [address] Commemt[address] WILL NOT[address]/RN Normal [facility] Comment on above: Performed By: #### G LULS #### Point of Care testing , Performed By: #### P T, CBC, PTT #### [facility] [address] [place] [address] Commemt3 Will Repeat Test [facility] Comment on above: Result Comment: PERF ORMED BY: [place] [address] PATHOLOGIST [employer] INST[employer]ER DOMINGA SOLIMAN M.D. Performed By: #### P T, CBC, PTT #### [address] Glucose [Mass/Vol] 429 mg/dL Off scale high [facility] Comment on above: Result Comment: [place] Glucose Reference Range is dependent on time and content of last meal. Glucose of more than 200 mg/dL in a nonstressed, ambulatory subject supports the diagnosis of Diabetes Mellitus. Performed By: #### P T, CBC, PTT #### [facility] [address] [place] [address] Commemt1 Glu2: Cleaned Meter Normal [facility] Comment on above: Result Comment: PERF ORMED BY: [place] [address] PATHOLOGIST [employer] INSTALLER DOMINGA SOLIMAN M.D. Performed By: #### G LULS #### Point of Care testing , Glucose [Mass/Vol] 373 mg/dL [facility] Comment on above: Result Comment: [place] om Glucose Reference Range is dependent on time and content of last meal. Glucose of more than 200 mg/dL in a nonstressed, ambulatory subject supports the diagnosis of Diabetes Mellitus. Performed By: #### G LULS #### Point of Care testing , Glucose [Mass/Vol] 261 mg/dL [facility] Comment on above: Result Comment: [place] Glucose Reference Range is dependent on time and content of last meal. Glucose of more than 200 mg/dL in a nonstressed, ambulatory subject supports the diagnosis of Diabetes Mellitus. PERFORMED BY: [place] [address] PATHOLOGIST [employer]OR INSTALLER DOMINGA SOLIMAN M.D. Performed By: #### P T, CBC, PTT #### [facility] [address] [place] [address] Lipid Panelon 08-07-2020 Cholesterol [Mass/Vol] 201 mg/dL High 140-[address] [facility] Comment on above: Result Comment: Chol less than 200 mg/dl low risk Chol 201-239 mg/dl borderline risk Chol 240 mg/dl and greater high risk Performed By: #### G LULS #### Point of Care testing , Cholesterol in HDL [Mass/Vol] 49 mg/dL Normal 35-[address] [facility] Comment on above: Result Comment: HDL CHOL ATP-III CLASSIFICATION Cardiovascular Risk HDL > or equal to 60 mg/dL LOW HDL < 40 mg/dL HIGH Performed By: #### G LULS #### Point of Care testing , Cholesterol.total/Ch olesterol in HDL [Mass ratio] 4.1 {ratio} Normal <5.[address] [facility] Comment on above: Result Comment: PERF ORMED BY: [facility] [address] [place] [address] PATHOLOGIST [employer] INST[employer]ER DOMINGA SOLIMAN M.D. Performed By: #### G LULS #### Point of Care testing , LDL Cholesterol,Calculat ed 127 mg/dL High 0-[address] [facility] Comment on above: Result Comment: LDL ATP III CLASSIFICATION LDL less than 100 mg/dL Optimal LDL 100-129 mg/dL Near or above optimal LDL 130-159 mg/dL Borderline high LDL 160-189 mg/dL High LDL greater than 189 mg/dL Very high Performed By: #### G LULS #### Point of Care testing , Triglyceride w/Reflex 126 mg/dL Normal 35-[address] [facility] Comment on above: Result Comment: TRIG ATP III CLASSIFICATION TRIG less than 150 mg/dL Normal TRIG 150-199 mg/dL Borderline high TRIG 200-500 mg/dL High TRIG greater than 500 mg/dL Very high Standard traceable to the Center for Disease Conrtrol and Prevention (CDC) test method. Performed By: #### G LULS #### Point of Care testing , VLDL CHOLESTEROL 25 mg/dL Normal [facility] Comment on above: Performed By: #### G LULS #### Point of Care testing , Magnesiumon 08-07-2020 Magnesium [Mass/Vol] 2.0 mg/dL Normal 1.6-2.6 [facility] Comment on above: Performed By: #### G LULS #### Point of Care testing , Partial Thromboplastin Timeo n 08-07-2020 aPTT Coag (Bld) [Time] 42.8 s High 25.1-36.[address] [facility] Comment on above: Result Comment: PERF ORMED BY: [place] [address] PATHOLOGIST [employer] INST[employer]ER DOMINGA SOLIMAN M.D. Performed By: #### G LULS #### Point of Care testing , aPTT Coag (Bld) [Time] 33.2 s Normal 25.1-36.[address] [facility] Comment on above: Result Comment: PERF ORMED BY: [place] [address] PATHOLOGIST GAR[employer] INSTALLER DOMINGA SOLIMAN M.D. Performed By: #### P T, CBC, PTT #### [address] Prothrombin Time INRon 08-07 INR Coag (PPP) [Relative time] 1.0 {INR} Normal [facility] Comment on above: Result Comment: INR [...] Coag (PPP) [Time] 11.4 s Normal 9.0-12.9 [facility] Comment on above: Performed By: #### G LULS #### Point of Care testing , INR Coag (PPP) [Relative time] 1.0 {INR} Normal [facility] Comment on above: Result Comment: INR [...] By: #### P T, CBC, PTT #### [facility] [address] PT Coag (PPP) [Time] 11.2 s Normal 9.0-12.9 [facility] Comment on above: Performed By: #### P T, CBC, PTT #### [facility] [address] [place] [address] [place] Troponin I(TnI)on 08-07-2020 Troponin I.cardiac [Mass/Vol] 3.26 ng/mL Off scale high 0-0.[address] [facility] Comment on above: Result Comment: KRISTI CO Cut off value > or equal to 0.03 ng/mL in conjunction with clinical conditions of myocardial infarction. (www.escardio.org/guidelines) PERFORMED BY: [place] [address] PATHOLOGIST GARAGE [employer]OR INSTALLER DOMINGA SOLIMAN M.D. Performed By: #### P T, CBC, PTT #### [facility] [address] [place] [address] [place] Troponin I.cardiac [Mass/Vol] 3.61 ng/mL Off scale high 0-0.[address] [facility] Comment on above: Result Comment: KRISTI CO Cut off value > or equal to 0.03 ng/mL in conjunction with clinical conditions of myocardial infarction. (www.escardio.org/guidelines) PERFORMED BY: [place] [address] PATHOLOGIST GARAGE DOOR INSTALLER DOMINGA SOLIMAN M.D. Performed By: #### T ROP #### [facility] [address] [place] [address] Troponin I.cardiac [Mass/Vol] 4.39 ng/mL Off scale high 0-0.[address] [facility] Comment on above: Result Comment: Resu lts called at 0009 on 08/07/20 KRISTI CO Cut off value > or equal to 0.03 ng/mL in conjunction with clinical conditions of myocardial infarction. (www.escardio.org/guidelines) PERFORMED BY: [place] [address] PATHOLOGIST GARAGE DOOR INSTALLER DOMINGA SOLIMAN M.D. Performed By: #### P T, CBC, PTT #### [facility] [address] [place], [place] [id number] [facility] ECG 12 lead ECGon 08-06-2020 ECG 12 lead ECG [facility] Main [place] [address] [place] [address] Electrocardiograph Report Signed Patient: Lucila Tineo MR#: [id number] : 1950 Acct:[id number] Age/Sex: 70 / F ADM Date: 08/06/20 Loc: Room: [address] [place] [address] Type: ADM IN Attending Dr: Drew Patterson [...] Castillo MD 08/06/202110 Signed By: 08/07/20 1712 [facility] Vital Signs Date Time Vital Sign Value Performing Clinician Cody chinchilla 03-06-2023 10:08-0500 Body height 162.6 cm Ange Gee MD Work Phone: [employer] 03-06-2023 10:08-0500 Body mass index (BMI) [Ratio] 25.23 kg/m2 Ange Gee MD Work Phone: [facility] 03-06-2023 10:08-0500 Body weight 66.68 kg Ange Gee MD Work Phone: [facility] 03-06-2023 10:08-0500 Diastolic blood pressure 80 mm[Hg] Ange Gee MD Work Phone: [facility] 03-06-2023 10:08-0500 Heart rate 87 /min Ange Gee MD Work Phone: [facility] 03-06-2023 10:08-0500 SaO2% (BldA) [Mass fraction] 94 % Ange Gee MD Work Phone: [facility] 03-06-2023 10:08-0500 Systolic blood pressure 132 mm[Hg] Ange Gee MD Work Phone: [facility] 12-11-2021 11:20-0400 Body height 162.56 cm Mily Ashley [employer] Work Phone: [facility] [employer] 250 DO Work Phone: 12-11-2021 11:20-0400 Body mass index (BMI) [Ratio] 27.98 kg/m2 Mily Ashley [employer] Work Phone: [facility] [employer] 250 DO Work Phone: 12-11-2021 11:20-0400 Body surface area Derived from formula 1.79 m2 Mily Ashley [employer] Work Phone: [facility] 250 DO Work Phone: 12-11-2021 11:20-0400 Body weight 73.94 kg Mily A Andrade Work Phone: [facility] 250 DO Work Phone: 12-11-2021 11:20-0400 Diastolic blood pressure 78 mm[Hg] Mily Ashley Andrade Work Phone: [facility] 250 DO Work Phone: 12-11-2021 11:20-0400 Heart rate 76 /min Mily Ashley Andrade Work Phone: [facility] 250 DO Work Phone: 12-11-2021 11:20-0400 Systolic blood pressure 136 mm[Hg] Mily Ashley Andrade Work Phone: [facility] 250 DO Work Phone: 02-05-2021 11:35-0500 Body height 162.56 cm Mily Ashley Andrade Work Phone: [facility] 250 DO Work Phone: 02-05-2021 11:35-0500 Body mass index (BMI) [Ratio] 28.67 kg/m2 Mily Ashley Andrade Work Phone: [facility] 250 DO Work Phone: 02-05-2021 11:35-0500 Body surface area Derived from formula 1.81 m2 Mily Ashley Andrade Work Phone: [facility] 250 DO Work Phone: 02-05-2021 11:35-0500 Body weight 75.75 kg Mily Ashley Andrade Work Phone: [facility] 250 DO Work Phone: 02-05-2021 11:35-0500 Diastolic blood pressure 81 mm[Hg] Mily Ashley Andrade Work Phone: [facility] 250 DO Work Phone: 02-05-2021 11:35-0500 Heart rate 77 /min Mily Gabi Andrade Work Phone: [facility] 250 DO Work Phone: 02-05-2021 11:35-0500 Systolic blood pressure 157 mm[Hg] Mily Ashley Andrade Work Phone: [facility] 250 DO Work Phone: 12-04-2020 15:01-0400 Diastolic blood pressure 72 mm[Hg] Bruce Elias DO Work Phone: [facility] 600 DO Work Phone: 12-04-2020 15:01-0400 Systolic blood pressure 170 mm[Hg] Bruce Elias DO Work Phone: [facility] DO Work Phone: 12-04-2020 13:53-0400 Body height 162.56 cm Bruce Elias DO Work Phone: [facility] DO Work Phone: 12-04-2020 13:53-0400 Body mass index (BMI) [Ratio] 29.01 kg/m2 Bruce Elias DO Work Phone: [facility] DO Work Phone: 12-04-2020 13:53-0400 Body surface area Derived from formula 1.82 m2 Bruce Elias DO Work Phone: [facility] DO Work Phone: 12-04-2020 13:53-0400 Body weight 76.66 kg Bruce Elias DO Work Phone: [facility] DO Work Phone: 12-04-2020 13:53-0400 Diastolic blood pressure 90 mm[Hg] Bruce Elias DO Work Phone: [facility] DO Work Phone: 12-04-2020 13:53-0400 Heart rate 68 /min Bruce Elias DO Work Phone: [facility] DO Work Phone: 12-04-2020 13:53-0400 Systolic blood pressure 150 mm[Hg] Bruce Elias DO Work Phone: [facility] DO Work Phone: 11-06-2020 15:18-0400 70 1 Bruce Elias DO Work Phone: [facility] DO Work Phone: Comment on above: [id number] Encounters Encounter Date Encounter Type Care Provider Facility Start: 04-14-2023 Clinisync Result Encounter Radha Herrera MD Work Phone: [facility] Unsolicited Start: 04-14-2023 Clinisync Result Encounter Radha Herrera MD Work Phone: [facility] Unsolicited Start: 03-25-2023 End: 03-25-2023 Emergency department patient visit [facility] Facility:[facility] Start: 03-25-2023 End: 03-25-2023 ambulatory [facility] Facility:[facility] Start: 03-06-2023 End: 03-06-2023 ambulatory ANGE GEE [facility] Start: 03-06-2023 End: 03-06-2023 Office outpatient visit 25 minutes Ange Gee MD Work Phone: [facility] Comment on above: Essential hypertensi on (Primary Dx); Paroxysmal atrial fibrillation (CMS-HCC) Start: 03-05-2023 Telephone encounter Corrie Goldstein CMA [facility] Start: 03-02-2023 ambulatory MILY ANDRADE P [facility] Start: 03-01-2023 ambulatory MILY ANDRADE P [facility] Start: 01-20-2023 ambulatory Jah Sharpe MD Work Phone: [facility] Comment on above: Anticoag Start: 01-16-2023 ambulatory Jah Sharpe MD Work Phone: [facility] Comment on above: Images Start: 01-02-2023 Telephone encounter Jah Sharpe MD Work Phone: [facility] Comment on above: 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 Start: 12-16-2022 End: 12-16-2022 ambulatory Jah Sharpe MD Work Phone: [facility] Comment on above: Unruptured cerebral aneurysm (Primary Dx); Ischemic stroke (HCC); Hypertension, unspecified type; Hyperlipidemia, unspecified hyperlipidemia type; Smoking Start: 12-16-2022 End: 12-16-2022 Telemedicine consultation with patient Jah Sharpe MD Work Phone: [facility] Start: 12-04-2022 Telephone encounter Neurology Provid er [facility] Comment on above: Future Appointment ( [place], [place], Any) Start: 08-25-2022 Rx Renewal Mily boswell Work Phone: [facility] 250 DO Work Phone: Start: 01-07-2022 Rx Renewal Mily boswell Work Phone: [facility] 250 DO Work Phone: Start: 12-11-2021 Office outpatient vi sit 15 minutes Mily Andrade Work Phone: [facility] 250 DO Work Phone: Start: 12-11-2021 ambulatory Ms. Mily Yoon rachel Andrade Facility: Start: 10-11-2021 Telephone encounter Mily Andrade Work Phone: [facility] 250 DO Work Phone: Start: 09-03-2021 Rx Renewal Mily Gaitan andreia Work Phone: [facility] 250 DO Work Phone: Start: 02-05-2021 Office outpatient vi sit 10 minutes Mily Andrade Work Phone: [facility] 250 DO Work Phone: Start: 02-05-[address] Bruce Elias Fac ility: Start: 12-04-2020 Patient encounter procedure Bruce Elias DO Work Phone: [facility] 600 DO Work Phone: Start: 09-05-2020 End: 03-06-2021 ambulatory SALAS KIRKPATRICK Facility: Echocardiogram normal Mily Gabi Andrade Work Phone: [facility] 250 DO Work Phone: Procedures Date Procedure Procedure Detail Performing Clinician Start: 04-14-2023 TBH UA (CLEAN/CATCH) BASEBALL PITCHER/MICRO IF IND. Radha Herrera MD Work Phone: Start: 04-14-2023 TB URINE MICROSCOPIC ONLY Radha Herrera MD Work Phone: Start: 03-06-2023 Follow-up visit Follow-up ANGE GEE Start: 04-24-2022 Mammography Radha Herrera MD Work Phone: Start: 06-05-2016 Colonoscopy Radha Herrera MD Work Phone: Appendectomy Bruce Elias DO Work Phone: Decompression of med estuardo nerve Bruce Elias DO Work Phone: Excision of cyst Bruce zambrano DO Work Phone: Hysterectomy Bruce Elias DO Work Phone: Ligation of fallopian tube W douglasm Curt DO Work Phone: Percutaneous translu darryl coronary angioplasty Bruce Elias DO Work Phone: Tonsillectomy Bruce ramos DO Work Phone: Total colonoscopy Bruce robin DO Work Phone: Plan of Treatment Date Care Activity Detail Author Start: 06-09-2028 DTaP,Tdap and Td Vaccines (2 - Td or Tdap) DTaP,Tdap and Td Vaccines (2 - Td or Tdap) [facility] Start: 06-09-2028 Urine microalbumin profile DTaP,Tdap,Td Vaccine (2 - Td or Tdap) [facility] Start: 06-05-2026 Screening for malignant neoplasm of colon [facility] Start: 01-16-2026 Diabetes Screening Diabetes Screening [facility] Start: 12-26-2024 Glaucoma screening Diabetes: Retinopathy Screening [facility] Start: 03-06-2024 Adult BMI Screening Adult BMI Screening [facility] Start: 03-06-2024 Tobacco Screening Tobacco Screening [facility] Start: 01-22-2024 Adult BMI Screening Adult BMI Screening [facility] Start: 01-19-2024 Tobacco Screening Tobacco Screening [facility] Start: 05-17-2023 Urine screening for protein Diabetes: Urine Protein Screening [facility] Start: 04-24-2023 Screening for malignant neoplasm of breast Mammogram [facility] Start: 04-21-2023 End: 04-21-2023 Patient encounter procedure 04/21/2023 3:00 PM EST Office Visit [facility] [address] [place] [address] Mily Andrade NP [address] [place] [address] [facility] Start: 04-16-2023 Medicare Annual Wellness (AWV) Medicare Annual Wellness (AWV) [facility] Start: 03-06-2023 End: 03-06-2023 Patient encounter procedure 03/06/2023 10:15 AM EST Office Visit [facility] [address] [place] [address] Ange Gee MD [address] [place] [address] [facility] Start: 12-11-2022 FUV, Provider: Bruce Elias, Status: Pen, Time: 10:20 AM FUV, Provider: Bruce Elias, Status: Pen, Time: 10:20 AM [facility] 250 DO Work Phone: Start: 10-31-2022 Covid-19 Vaccine () Covid-19 Vaccine () [facility] Start: 10-31-2022 Influenza vaccination [facility] Start: 06-11-2022 Hemoglobin A1c measurement Diabetes: Hemoglobin A1C [facility] Start: 03-02-2022 Advance Directive Discussion Advance Directive Discussion [facility] Start: 03-02-2022 Depression Assessment Depression Assessment [facility] Start: 12-11-2021 FUV, Provider: Bruce Elias, Status: Pen, Time: 11:20 AM FUV, Provider: Bruce Elias, Status: Pen, Time: 11:20 AM [facility] 600 DO Work Phone: Start: 02-19-2021 NURSEVST, Provider: DAVID LANDEROS POLE LIFT OPERATOR 1,[id number], Status: Pen, Time: 11:00 AM NURSEVST, Provider: DAVID LANDEROS POLE LIFT OPERATOR 1,[id number], Status: Pen, Time: 11:[address] [facility] 250 DO Work Phone: Start: 01-09-2021 FUV, Provider: Salas Wilson, Status: Pen, Time: 1:30 PM FUV, Provider: Salas Wilson, Status: Pen, Time: 1:30 PM [facility] 600 DO Work Phone: Start: 04-03-2020 Administration of varicella zoster vaccine Zoster (Shingles) Vaccine (2 of 2) [facility] Start: 04-03-2020 Shingrix Vaccine (2 of 2) Shingrix Vaccine (2 of 2) [facility] Start: 2015 Bone Density Screening Bone Density Screening [facility] Start: 2015 Fall Risk Screening Fall Risk Screening [facility] Start: 2010 RSV Vaccine (1 - 1-dose 60+ series) RSV Vaccine (1 - 1-dose 60+ series) [facility] Start: 02-22-2000 Shingrix Vaccine (1 of 2) Shingrix Vaccine (1 of 2) [facility] Start: 1995 Cologuard (FIT-DNA) Cologuard (FIT-DNA) [facility] Start: 1995 Colonoscopy Colonoscopy [facility] Start: 1995 Colorectal Cancer Screening Colorectal Cancer Screening [facility] Start: [address] COLONOGRAPHY [facility] Start: 1995 Diabetes Screening Diabetes Screening [facility] Start: 1995 Fecal Occult Blood Fecal Occult Blood [facility] Start: 1995 Lipid 1996 panel - Serum or Plasma Lipid Screening [facility] Start: 1995 SIGMOIDOSCOPY SIGMOIDOSCOPY [facility] Start: 1990 Mammography Mammogram Screening [facility] Start: 1969 Urine microalbumin profile DTaP,Tdap,Td Vaccine (1 - Tdap) [facility] Start: 02-22-1968 Adult BMI Follow Up Plan Adult BMI Follow Up Plan [facility] Start: 02-22-1968 Diabetic foot examination Diabetic Foot Exam [facility] Start: 02-22-1968 Hepatitis C Screening Hepatitis C Screening [facility] Start: 1962 Depression Screening Depression Screening [facility] Start: 02-22-1956 Pneumococcal Vaccine: 65+ (1 - PCV) Pneumococcal Vaccine: 65+ (1 - PCV) [facility] Start: 1950 Glaucoma screening Diabetic Ophthalmology Exam [facility] Start: 1950 Medicare Annual Wellness Visit Medicare Annual Wellness Visit [facility] Start: 1950 Screening for malignant neoplasm of colon [facility] Start: 1950 Tobacco Counseling Tobacco Counseling [facility] Start: 1950 Urine screening for protein Urine Microalbumin [facility] Immunizations Immunization Date Immunization Notes Care Provider Ronny naylor 05-16-2022 influenza virus vaccine, unspecified formulation Jah Sharpe MD Work Phone: [facility] 04-10-2021 Moderna COVID-19 Vaccine 100 MCG/0.5ML Intramuscular Suspension Mily Gonzalezzpatrick Work Phone: [facility] DO Work Phone: 05-09-2020 Lico COVID-19 Vaccine 0.5 ML Intramuscular Suspension Bruce Elias DO Work Phone: [facility] 02-07-2020 influenza, high dose seasonal, preservative-free Bruce Elias DO Work Phone: [facility] DO Work Phone: 02-07-2020 zoster vaccine recombinant Bruce Elias DO Work Phone: [facility] 600 DO Work Phone: 02-07-2020 influenza virus vaccine, unspecified formulation Neurology Provider [facility] 02-07-2020 zoster vaccine, unspecified formulation Corrie Goldstein [facility] 03-02-2019 influenza, seasonal, injectable Bruce Elias DO Work Phone: [facility] 600 DO Work Phone: 02-14-2019 influenza, high dose seasonal, preservative-free Bruce Elias DO Work Phone: [facility] 600 DO Work Phone: 06-09-2018 tetanus toxoid, redu clif diphtheria toxoid, and acellular pertussis vaccine, adsorbed Bruce Elias DO Work Phone: [facility] 600 DO Work Phone: 03-02-2018 pneumococcal polysaccharide vaccine, 23 valent Bruce Elias DO Work Phone: [facility] 600 DO Work Phone: 12-02-2017 influenza, high dose seasonal, preservative-free Bruce Elias DO Work Phone: [facility] 600 DO Work Phone: 02-25-2017 influenza, high dose seasonal, preservative-free Bruce Elias DO Work Phone: [facility] DO Work Phone: 02-17-2017 pneumococcal polysaccharide vaccine, 23 valent Bruce Elias DO Work Phone: [facility] 600 DO Work Phone: 11-06-2015 influenza, injectabl e, quadrivalent, contains preservative Bruce Elias DO Work Phone: [facility] 600 DO Work Phone: 11-06-2015 pneumococcal conjuga te vaccine, 13 valent Bruce Elias DO Work Phone: [facility] 600 DO Work Phone: 12-15-2013 influenza, seasonal, injectable Bruce Elias DO Work Phone: [facility] DO Work Phone: 12-21-2012 influenza, seasonal, injectable Bruce Elias DO Work Phone: [facility] 600 DO Work Phone: 12-16-2006 pneumococcal polysaccharide vaccine, 23 valent Bruce Elias DO Work Phone: [facility] DO Work Phone: 11-18-2006 pneumococcal polysaccharide vaccine, 23 valent Bruce Elias DO Work Phone: [facility] 600 DO Work Phone: Payers Date Payer Category Payer Medicaid MEDICAID [facility] EDICAID [id number] 2023-[facility] [phone] [place], [place] [id number] 2023 Medicaid [id number] 2018 Medicare [id number] 1959 Medicare [id number] 1950 Unknown [id number] 1950 Unknown [id number] 1950 Unknown [id number] 1950 Unknown [id number] 1950 Unknown [id number] 1950 Unknown [id number] Unknown Social History Date Type Detail Facility Start: 10-14-2018 End: 12-26-2022 No alcohol use No alcohol use [facility] Comment on above: 1 TEA DAILY; 1/2 PPD; Start: 10-14-2018 End: 05-27-2022 Tobacco smoking status GAIS Smokes tobacco daily [facility] History of tobacco use Cigarette Smoker [facility] Start: 10-14-2018 End: 12-26-2022 Tobacco use and exposure Smokeless tobacco non-user [facility] Start: 04-21-2019 End: 12-26-2022 Tobacco use panel [facility] National Score (1-10 0), lower number is lower risk Not on file [facility] Start: 1950 Sex Assigned At Female [facility] Start: 05-14-2022 Gender identity Identifies as female gender (finding) [facility] Start: 12-09-2022 Sexual orientation Heterosexual (fin pedro) [facility] Start: 01-18-2023 End: 03-06-2023 Alcohol intake Ex-drinker (finding) [facility] [employer] [facility] Start: 1950 Sex Assigned At Not on file [employer] Start: 12-26-2022 [facility] History of tobacco use Current smoker [facility] Medical Equipment Procedure Code Equipment Code Equipment Origin al Text Equipment Identifier Dates Inject 1 each un chano the skin in the morning and 1 each in the evening and 1 each before bedtime. [id number] Start: 07-22-2022 Goals Date Patient Goal Desired Activity /State Personal health goal Comment on above: Formatting of this n ote might be different from the original. Evaluation of progress towards goal: In progress: Return to spring. Clinical Notes 12-08-2022 to 03-25-2023 Ange Gee MD - 03/06/2023 10:15 AM ESTTelephone Encounter - Corrie Goldstein [facility] - 03/05/2023 12:21 PM ESTTelephone Encounter - Corrie Goldstein CMA - 03/05/2023 12:21 PM EST Note Date & Type Note Facility 03-25-2023 Note HNO ID: [id number] Author: KRISTI MARTINEZ RT(R) Service: Radiology Author [...] RT Mahesh(R) March 25, 2023 12:47 PM [facility] 03-25-2023 Note HNO ID: [id number] Author: BRO HAWK MD Service: ? Author Type: Physician Type: Progress Notes Filed: 03/25/2023 11:09 Note Text: Heart , V[facility] Thor[facility] [place] DEPARTMENT OF VASCULAR SURGERY OUTPATIENT VISIT DATE [...] stable taaa. N (more content not included)... [facility] 03-25-2023 Note HNO ID: [id number] Author: SEPIDEH TOVAR RN Service: Nursing Author [...] See Lab Tab March 25, 2023 - TREATMENT: No Hydration needed. IV SITE: Ambulatory: A peripheral IV was started in the Left antecubital site with a Angio cath: 20 gauge. IV SITE APPEARANCE: Clean,Dry and Intact SIGNATURE: Sepideh Tovar RN PATIENT NAME: Lucila Tineo DATE: March 25, 2023 TIME: 9:59 AM [facility] 03-25-2023 Note HNO ID: [id number] Author: FRANK COLEMAN RT(R) Service: Radiology Author [...] RT Monica(R) March 25, 2023 10:19 AM [facility] 03-06-2023 History of Presen t illness Narrative Lcuila Tineo Date of visit: 03/06/2023 Date of : 1950 Age: 73 y.o. Patient Active Problem List Diagnosis Bilateral carotid artery stenosis Thoracic aortic aneurysm without rupture ([facility]) PAD (peripheral artery disease) ([facility]) Claudication ([facility]) Lumbar radiculopathy, chronic Fall, initial encounter 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 ([facility]) Uncontrolled type 2 diabetes mellitus with hyperglycemia ([facility]) HLD (hyperlipidemia) History of stroke COPD (chronic obstructive pulmonary disease) ([facility]) ASCVD (arteriosclerotic cardiovascular disease) High anion gap metabolic acidosis Left middle cerebral artery aneurysm JEYSON (acute kidney injury) ([facility]) Elevated troponin Essential hypertension Fecal impaction ([facility]) Stercoral colitis Paroxysmal atrial fibrillation ([facility]) Allergies Allergen Reactions Penicillins Hives and Other [...] that were known and followed conservatively by [facility]. She has been started on Eliquis. [...] aneurysm that is followed by vascular in [place]. She has not been back to [place] in some time. A repeat CTA of the abdomen and pelvis that was not a dedicated CTA study was done here in [place] and reported 4.9 cm aneurysm. I do not see the last assessment in [place] but there is a reading from 2020 42 mm. I am not sure whether getting the measurement of 4.9 cm on the study here. There is a lot of artifact and I see measurements that may be 44-45 mm but not clearly 49. Past Medical History: Diagnosis Date JEYSON (acute kidney injury) ([facility]) 01/16/2023 Cancer ([facility]) Chronic pain disorder Descending aortic aneurysm ([facility]) Diabetes mellitus type 2, controlled ([facility]) Emphysema of lung ([facility]) Former smoker Hypertension Low back pain NSTEMI, initial episode of care ([facility]) PAD (peripheral artery disease) ([facility]) 11/19/2020 Skin cancer Spinal stenosis of lumbar region with neurogenic claudication Stroke ([facility]) Uncontrolled type 2 diabetes mellitus with hyperglycemia ([facility]) 01/08/2021 No data recorded No data recorded No data recorded Past Surgical History: Procedure Laterality Date APPENDECTOMY CARPAL TUNNEL RELEASE CYST REMOVAL HYSTERECTOMY INJECTION BLOCK EPIDURAL CAUDAL STEROID N/A 05/09/2022 Performed by Bruce Mcgregor MD at [facility] SKIN CANCER EXCISION TONSILLECTOMY Family History Problem [...] with M2 vessel cut off, diagnosed in [place], [place] 2. Primary hypertension 3. Hyperlipidemia 4. Type 2 diabetes , DKA 5. Elevation. Non-STEMI 2020 with catheterization revealing thrombotic/chronic occlusion of the RCA with attempted stent at the time. 5. ASCVD with NSTEMI 2020; LHC 2020 with thrombotic/chronic occlusion of the RCA and attempted stent 7. Aneurysmal dilatation of descending thoracic aorta measuring up to 4.9 cm in width by vascular in [place], unclear if 4.9 cm as an accurate measurement and was not as enlarged on prior study in [place]. 9. Ascending aortic enlargement/aneurysm 10. Unruptured middle cerebral artery aneurysm, follows with Dr Sharpe [facility] 11. Tobacco abuse until 09/2022 12. Hypothyroid 13. Paroxysmal atrial fibrillation with RVR, asymptomatic, picked up during recent hospital stay 12/2022 Continue [place] She was not placed on rate control, this is likely okay for now but I would like her to at least get vitals checked intermittently to screen for high heart rate readings and some point will need rate control added, particularly if has more prolonged episodes of atrial fibrillation Went over with her daughter who is a nurse that works here at [facility] that she should get evaluated again by [place] in an expedited fashion. I am not certain that the descending thoracic aorta is truly 4.9 cm but if this is the case, this is a rapid progression compared to previous and likely merits intervention at this point. I think she will likely need a dedicated study. I think [place] will prefer that they get a CTA there for planning. I only see the aorta closer to 4.5 cm I would nonetheless want her to make sure she meet with vascular. TODAYS ORDERS No orders of the defined types were placed in this encounter. FOLLOW UP Return in about 4 months (around 07/05/2023). PCP: MARILYN HEARD Referring Physician: MARILYN Heard [id number], [address] [address] documented in this encounter [facility] 03-05-2023 Miscellaneous Notes Left message for patient to remind them to bring their most current medication list with them to their appointment. documented in this encounter [facility] 03-05-2023 Telephone encounter Note Left message for patient to remind them to bring their most current medication list with them to their appointment. [facility] 01-02-2023 Miscellaneous Notes Voice mail left for daughter to discuss plan of care for follow up of cerebral aneurysm as discussed with Dr Sharpe at appointment. Imaging in 6 months versus cerebral angiogram. Requested daughter to either call this office or send a My Chart message with preference documented in this encounter [facility] 12-16-2022 Note HNO ID: [id number] Author: Jah Sharpe MD Service: ? Author Type: Physician Type: Progress Notes Filed: 12/16/2022 6:24 PM Note Text: [facility] Virtual Visit Lucila Pierce Rivka [facility]#: [id number] Date of Service: 12/16/2022 Primary Care Provider: Mily Andrade CNP [address] [place] [facility] [address] The patient was referred by Osei Roe [...] brain aneurysm. The patient was residing in [place], and was found down on October 29, [...] stroke work-up. The patient then returned to [place], and she is still at a nursing [...] Discontinue saline lo (more content not included)... [facility] 12-16-2022 History of Presen t illness Narrative [facility] Virtual Visit Lucila Stan Tineo [facility]#: [id number] Date of Service: 12/16/2022 Primary Care Provider: Mily Andrade, CHELITA [address] [facility] [address] The patient was referred by Osei Roe [...] brain aneurysm. The patient was residing in [place], and was found down on October 29, [...] stroke work-up. The patient then returned to [place], and she is still at a nursing [...] OSEI ROE [address] [place] [address] Mily Andrade [address] [place] [address] documented in this encounter [facility] 12-08-2022 Miscellaneous Notes Images from the original note were not included. OSH imaging/records received from [facility]: December 08, 2022 -12.02.22 Dr. Roe Progress Notes scanned to chart. -Medical Hx & Imaging Reports available in Care Everywhere. Received confirmation email from Caio that imaging hs been uploaded--per dropping off disc to imaging library to upload as I wasn't able to + kept getting error per below. Images from the original note were not included. OSH imaging/records received from [facility]: December 04, 2022 -12.02.22 Dr. Roe Progress Notes scanned to chart. PENDING: -2022 Imaging -Medical Hx & Imaging Reports Walked discs over to imaging library + gave to Adry to upload MAGDALENE. Successfully sent [employer] & [employer] overnight label via [employer]~ Tracking#[id number] December 05, 2022 10:30 AM 07 [employer] Priority Overnight $14.14 From: Theresa mabry Last change on 12/04/2022 12:16:46 pm Sent on 12/04/2022 12:16:33 pm Completed ENDOVASCULAR INTAKE Patient name: Lucila Tineo Confirm Diagnosis/RFV (Reason for Visit): Aneurysm Is this a self-referral? no, who is the referring provider : Osei Roe [employer] in [place], [place]/His direct office number if any questions: [phone] Is this a direct referral? yes neurosurgeon Have you been recommended for surgery or procedure? Yes. coiling Are you seeking a second opinion? Yes. Do you have a MRI/MRA/CT/Ultrasound for this diagnosis? Yes. Type of imaging CT's, name/address of facility where completed [facility]. [Only has reports in folder, no images] [...] if any questions. documented in this encounter [facility] Evaluation note Diagnosis Unruptured cerebral aneurysm- Primary Cerebral aneurysm, nonruptured Ischemic stroke (HCC) Hypertension, unspecified type Hyperlipidemia, unspecified hyperlipidemia type Smoking Tobacco use disorder [facility] Essential hypertension- Primary Unspecified essential hypertension Paroxysmal atrial fibrillation ([facility]) Atrial fibrillation [facility] The patient [...] medication regimen. She denies medication side effects. [facility] DO Work Phone: InstructionsNot on filedocumented in this encounter [facility] SystemInstructionsNot on filedocumented in this encounter [facility] Summary Purpose Family History Unknown Family Member [...] Documents on File Type Date Recorded Patient Biomedical Engineering Aide Expl anation DNR Physician Order 02/13/2023 4:38 PM Latest Code Status on File Code Status Date Activated Date Inactivated Comments DNR Comfort Care Arrest (DNR -CCA) [place] 01/16/2023 12:33 PM 01/21/2023 2:44 PM Code [...] hospitalized overnight and treated with infusion. [facility] Accountant Controller [facility] due to minimally elevated troponin. [...] section and content) DATE CREATED AUTHOR 08/20/2020 [facility] DATE CREATED AUTHOR AUTHOR'S ORGANIZ ATION 03/11/2021 [facility] DATE CREATED AUTHOR AUTHOR'S ORGANIZ ATION 12/11/2021 [facility] DATE CREATED AUTHOR AUTHOR'S ORGANIZ ATION 12/11/2021 [facility] DATE CREATED AUTHOR AUTHOR'S ORGANIZ ATION 04/26/2022 [facility] dical Specialist DATE CREATED AUTHOR AUTHOR'S ORGANIZ ATION 03/02/2023 [facility] DATE CREATED AUTHOR AUTHOR'S ORGANIZ ATION 03/08/2023 [facility] DATE CREATED AUTHOR AUTHOR'S ORGANIZ ATION 03/28/2023 [facility] Source Comments (unrecognize d section and content) In the event this informatio n is protected by the Federal Confidentiality of Alcohol and Drug Abuse Patient Records regulations: The Federal rules restrict any use of the information to criminally investigate or prosecute any alcohol or drug abuse patient.[facility] the event this information is protected by the Federal Confidentiality of Alcohol and Drug Abuse Patient Records regulations: The Federal rules restrict any use of the information to criminally investigate or prosecute any alcohol or drug abuse patient.[facility] the event this information is protected by the Federal Confidentiality of Alcohol and Drug Abuse Patient Records regulations: The Federal rules restrict any use of the information to criminally investigate or prosecute any alcohol or drug abuse patient.[facility] the event this information is protected by the Federal Confidentiality of Alcohol and Drug Abuse Patient Records regulations: The Federal rules restrict any use of the information to criminally investigate or prosecute any alcohol or drug abuse patient.[facility] the event this information is protected by the Federal Confidentiality of Alcohol and Drug Abuse Patient Records regulations: The Federal rules restrict any use of the information to criminally investigate or prosecute any alcohol or drug abuse patient.[facility] the event this information is protected by the Federal Confidentiality of Alcohol and Drug Abuse Patient Records regulations: The Federal rules restrict any use of the information to criminally investigate or prosecute any alcohol or drug abuse patient.[facility] Reason for Visit (unrecogniz ed section and content) Reason Comments Future Appointment [place], [place], Any Reason Comments Unruptured Aneurysm 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 - 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 Reason Comments Follow-up EST PT IP LARRY FALL 3 0 DAY EM POSSIBLE AFIB SCHED W/ALBA PT DAUGHTER ALEX AND PT KNOWS SHE IS OOP Care Teams (unrecognized sec tion and content) Reach Lift Truck Driver Relationship Specialty Start Date End Date Mily Andrade CNP [address] [facility] [place] [address] PCP - General Family Medicine 09/29/18 Osei Roe [address] [place] [address] Referring Neurology 12/04/22 Reach Lift Truck Driver Relationship Specialty Start Date End Date Mily Andrade CNP [address] [facility] [place] [address] PCP - General Family Medicine 09/29/18 Osei Roe [address] [place] [address] Referring Neurology 12/04/22 Reach Lift Truck Driver Relationship Specialty Start Date End Date Mily Andrade CNP [address] [facility] [place] [address] PCP - General Family Medicine 09/29/18 Osei Roe [address] [place] [address] Referring Neurology 12/04/22 Reach Lift Truck Driver Relationship Specialty Start Date End Date Mily Andrade CNP [address] [place] [address] PCP - General Family Medicine 09/29/18 Osei Roe [address] [place] [address] Referring Neurology 12/04/22 Reach Lift Truck Driver Relationship Specialty Start Date End Date Mily Andrade APRN-MECHANICAL SYSTEMS CONTROL ENGINEER [address] [facility] [place] [address] PCP - General Internal Medicine 08/06/20 Reach Lift Truck Driver Relationship Specialty Start Date End Date Mily Andrade APRN-MECHANICAL SYSTEMS CONTROL ENGINEER [address] [facility] [place] [address] PCP - General Internal Medicine 08/06/20 Reach Lift Truck Driver Relationship Specialty Start Date End Date Chyna Portillo DO [address] [facility] [address] [place] [address] PCP - [employer] 03/02/20 Corrie Coley MD [address] [facility] [place] [address] PCP - General Family Medicine 03/26/23 FOR RECORDS PERTAINING TO PATIENTS WHO ARE [...] BE BASED ON THE PRIMARY CLINICAL RECORDS. [facility]. provides no warranty or guarantee of the accuracy or completeness of information in this document.
[2023-04-17 09:32] LABS: Anion Gap 12.8; BUN Creatinine Ratio 23.2; Calcium 9.4 mg/dL (8.5-10.1); Carbon Dioxide 26.8 mmol/L (21.0-32.0); Chloride 107 mmol/L (98-107); Estimated GFR (African America >60 (>=60); Estimated GFR (Non-African Ame >60 (>=60); Glucose 86 mg/dL (74-106); Potassium 3.6 mmol/L (3.5-5.1); Sodium 143 mmol/L (136-145)
[2023-04-17 10:24] LABS: Basophils Absolute Auto 0.1 10^3/uL (0.0-0.1); Basophils Percent Auto 0.8 % (0.2-2.0); Eosinophils Absolute Auto 0.1 10^3/uL (0.0-0.7); Eosinophils Percent Auto 2.2 % (0.9-7.0); Hematocrit 34.5 % (36.0-48.0); Hemoglobin 10.9 g/dL (12.0-16.0); Immature Granulocytes Abs Auto 0.02 10^3/uL (0.00-0.03); Immature Granulocytes Pct Auto 0.3 % (0.0-0.5); Lymphocytes Absolute Auto 1.5 10^3/uL (1.2-3.8); Lymphocytes Percent Auto 23.2 % (20.5-60.0); Mean Corpuscular HGB Conc 31.6 g/dL (29.9-35.2); Mean Corpuscular Hemoglobin 28.7 pg (26.7-34.0); Mean Corpuscular Volume 90.8 fL (81.0-99.0); Mean Platelet Volume 11.9 fL (9.5-13.5); Monocytes Absolute Auto 0.5 10^3/uL (0.3-0.8); Monocytes Percent Auto 8.4 % (1.7-12.0); Neutrophils Absolute Auto 4.1 10^3/uL (1.4-6.5); Neutrophils Percent Auto 65.1 % (43.0-75.0); Platelet Count 233 10^3/uL (150-450); Red Cell Distribution Width 14.8 % (11.0-15.0); White Blood Count 6.3 10^3/uL (4.0-11.0)
== END 2023-04-17 03:18 | disposition home or self-care (01) ==
LOC: LAB 03:17
PROVIDERS: PCP Family Medicine; Visit Provider Family Medicine
DX: N39.0 Urinary tract infection, site not specified (principal)
CPT/HCPCS: 36415; 80048; 85025

== ENCOUNTER 2023-06-05 02:47 | Outpatient (REF) | payer MEDICARE, MEDICAID, SELFPAY ==
--- OUTSIDE RECORDS SUMMARY | 2023-06-05 02:52 | XMS_ITS | CCD ---
Author Organization [facility] Care Team Providers Care Keyboard Teacher Name Role Phone Unavailable Unavailable Mily Andrade A Unavailable [phone] SALAS KIRKPATRICK Attending Unavailable SALAS KIRKPATRICK Admitting Unavailable Lupe, Jaylen Mily Amena Primary Care Rosemary vailable Curt, Dr. Barrera Attending Unavailable Dr. Bruce Elias Referring Unavailable Dr. Bruce Elias Referring Unavailable CHELITA Sandhu Attending Unavailable Lupe, Jaylen Mily Beckwith Primary Care Rosemary vailable AndradeMily boswell CNP Primary Care Provider Osei Roe Unavailable LUPE MILY A Referring Unavailab le ANDRADE, MILY A Primary Care Unavailab le ANDRADE, MILY A Referring Unavailab le ANDRADE, MILY A Primary Care Unavailab le Andrade DOORMAKER-PHYSICIAN'S AIDE, Mily A Primary Care Pro vider ANGE GEE Attending Unavailable ANDRADE, MILY A Referring Unavailab le ANDRADE, MILY A Primary Care Unavailab le ANDRADE, MILY Primary Care Unavailable BRO HAWK Attending Unavailable MILY ANDRADE Primary Care Unavailable BRO HAWK Referring Unavailable ROE, SWARAJ Referring Unavailable ANDRADE, MILY Primary Care Unavailable JAH SHARPE Attending Unavailable MILY ANDRADE Primary Care Unavailable EDWARD CHRISTINE Attending Unavailable Chyna Portillo DO Unavailable [phone] Corrie Coley MD Primary Care Provider MILY ANDRADE Attending Unavailab le Allergies Allergy Classification Reported Allergen(s) Allergy Type Date of Onset Reaction(s) Facility (13 sources) Penicillins; Translations: [Penicillins] Allergy to drug (finding) 9 [facility] (10 sources) Penicillins Drug Allergy 9 Hives, Other (See Comments) [facility] (1 source) Penicillins Drug Allergy 9 Hives [facility] Work Phone: Medications Current Medications Medication Drug Class(es) Dates Sig (Normalized) Sig (Original) amLODIPine 5 mg oral tablet (5 sources) Dihydropyridine Calcium Channel Shantel Start: 12-03-2022 take 1 tablet by mouth in the morning amLODIPine (Norvasc) 5 MG tablet Take 5 mg by mouth in the morning. 0 12/03/2022 Active apixaban 5 mg oral tablet (4 sources) Factor Xa Inhibitor Start: 01-21-2023 take [...] mg / cholecalciferol 200 unt oral tablet (4 sources) Vitamin D take 1 tablet by mouth once in the morning calcium carbonate-vitamin D3 (OSCAL 500 + D) 500 mg(1,250mg) -200 units per tablet Take 1 tablet by mouth in the morning and 1 tablet in the evening. Take with meals. 0 Active docusate sodium 50 mg / sennosides, residential 8.6 mg oral tablet (5 sources) Start: take 1 tablet by mouth [...] insulin aspart, human 100 unt/ml pen injector (20 sources) Insulin Analog insulin aspart U-100 (NovoLOG) [...] bedtime. insulin glargine 100 unt/ml injectable solution (5 sources) Insulin Analog Start: 12-03-19 inject 10 [IU] by subcutaneous injection in the morning insulin glargine (Lantus) 100 UNIT/ML injection Inject 10 Units under the skin in the morning. 0 12/02/2022 Active inject 0.15 mL by arteaga bcutaneous injection once daily insulin glargine (LANTUS) 100 unit/mL injection Inject 0.15 mL (15 Units total) under the skin nightly. 0 Active 3 ml insulin lispro 100 unt/ml pen injector (5 sources) Insulin Analog Start: 01-21-2023 insulin lispro (HumaLOG) 100 unit/mL [...] and nightly. 15 mL 12 01/21/2023 Active Start: 12-02-2022 Insulin Lispro 100 UNIT/ML solution [...] Active levothyroxine sodium 0.125 mg oral tablet (20 sources) l-Thyroxine Start: 07-23-2022 take 1 tablet [...] daily. magnesium hydroxide 80 mg/ml oral suspension (4 sources) take 30 mL by mouth once daily as needed magnesium hydroxide 400 mg/5 mL suspension Take 30 mL by mouth nightly as needed. 0 Active melatonin 3 mg oral tablet (5 sources) Start: 12-02-2022 take 2 tablets by mouth at bedtime melatonin 3 MG tablet Take 6 mg by mouth at bedtime. 0 12/02/2022 Active take 1 capsule by mo uth once daily as needed melatonin 3 mg capsule Take 3 mg by mout h nightly as needed (insomnia). 0 Active ondansetron 4 mg oral tablet (4 sources) Serotonin-3 Receptor Antagonist take 1 tablet by mouth every eight hours as needed for nausea and vomiting ondansetron (ZOFRAN) 4 mg tablet Take 1 tablet (4 mg total) by mouth every 8 (eight) hours as needed for nausea or vomiting. 0 Active pregabalin 25 mg oral capsule (6 sources) Start: 2022 End: 2023 take 1 [...] mouth at bedtime. 0 12/02/2022 Active sennosides, residential 8.6 mg oral tablet (4 sources) Start: 2022 take 1 tablet by mouth twice daily as needed for constipation senna (SENOKOT) 8.6 mg tablet Take 1 tablet (8.6 mg total) by mouth 2 (two) times a day as needed for constipation. 30 each 0 01/21/2023 Active traMADol hydrochloride 50 mg oral tablet (3 sources) Opioid Agonist Start: 2022 take 1 tablet by mouth every six hours as needed for pain traMADoL (ULTRAM) 50 mg tablet Take 1 tablet (50 mg total) by mouth every 6 (six) hours as needed for pain. 0 01/31/2023 Active 24 hr venlafaxine 37.5 mg extended release oral capsule (5 sources) Serotonin and Norepinephrine Reuptake Inhibitor Start: 2022 take 1 capsule by mouth every twenty-four hours at mealtime venlafaxine XR (Effexor XR) 37.5 MG 24 hr capsule Take 37.5 mg by mouth in the morning. Take with meals. 0 12/03/2022 Active Completed/Discontinued Medications Medication Drug Class(es) Dates Sig (Normalized) Sig (Original) atorvastatin 40 mg oral tablet (20 sources) HMG-CoA Reductase Inhibitor Start: 07-04-2021 take [...] Classification Problem Date Documented Date Episodic/Chronic Acute cerebrovascular disease (2 sources) Ischemic stroke; Translations: [Cerebral infarction, unspecified] Onset: 12-26-2022 12-16-2022 Chronic Aortic; peripheral; and visceral artery aneurysms (18 sources) Aneurysm of descending aorta; Translations: [Aortic aneurysm of unspecified site without mention of rupture] Onset: 11-19-2020 Resolved: 01-16-2023 11-19-2020 Chronic Cardiac dysrhythmias (5 sources) Paroxysmal atrial fibrillation; Translations: [Paroxysmal atrial fibrillation] Onset: 03-06-2023 03-06-2023 Chronic Cataract (1 source) Bilateral age-related nuclear cataracts; Translations: [Age-related nuclear cataract, bilateral] Onset: 12-26-2022 12-26-2022 Chronic Chronic obstructive pulmonary disease and bronchiectasis (14 sources) Chronic obstructive lung disease; Translations: [Chronic airway obstruction, not elsewhere classified] Onset: 01-16-2023 01-16-2023 Chronic Coronary atherosclerosis and other heart disease (19 sources) Coronary arteriosclerosis; Translations: [Coronary atherosclerosis of unspecified type of vessel, kalispel or graft] Onset: 09-05-2020 Chronic Diabetes mellitus with complications (9 sources) Diabetic ketoacidosis without coma; Translations: [Type 2 diabetes mellitus with ketoacidosis without coma] Onset: 01-08-2021 01-16-2023 Chronic Diabetes mellitus without complication (11 sources) Diabetes mellitus; Translations: [Diabetes mellitus without mention of complication, type II or unspecified type, not stated as uncontrolled] Onset: 03-11-2021 Chronic Disorders of lipid metabolism (16 sources) Hyperlipidemia; Translations: [Other and unspecified hyperlipidemia] Onset: 12-01-2014 12-16-2022 Chronic Essential hypertension (18 sources) Hypertensive disorder; Translations: [Unspecified essential hypertension] Onset: 03-11-2021 12-16-2022 Chronic Nonspecific chest pain (1 source) Chest pain, unspecified; Translations: [Chest pain, unspecified type] Onset: 03-25-2023 Episodic Occlusion or stenosis of precerebral arteries (4 sources) Bilateral stenosis of carotid arteries; Translations: [Occlusion and stenosis of bilateral carotid arteries] Onset: 11-19-2020 11-19-2020 Chronic Other and ill-defined cerebrovascular disease (1 source) Cerebral arterial aneurysm; Translations: [Cerebral aneurysm, nonruptured] 12-16-2022 Chronic Other and ill-defined cerebrovascular disease (4 sources) Aneurysm of middle cerebral artery; Translations: [Cerebral aneurysm, nonruptured] Onset: 01-16-2023 01-16-2023 Chronic Other lower respiratory disease (1 source) Calcified granuloma of lung; Translations: [Pulmonary fibrosis, unspecified] 04-29-2023 Chronic Other nervous system disorders (4 sources) Spinal cord compression; Translations: [Unspecified disease of spinal cord] Chronic Other nutritional; endocrine; and metabolic disorders (10 sources) Overweight in adulthood with body mass index of 25 or more but less than 30; Translations: [Overweight] Episodic Other nutritional; endocrine; and metabolic disorders (2 sources) Body mass index 25-29 - overweight; Translations: [Body Mass Index 29.0-29.9, adult] Episodic Peripheral and visceral atherosclerosis (12 sources) Peripheral vascular disease; Translations: [Peripheral vascular disease, unspecified] Onset: 11-19-2020 11-19-2020 Chronic Residual codes; unclassified (1 source) Pain, unspecified; Translations: [Pain, unspecified] Onset: 03-01-2023 Episodic Substance-related disorders (11 sources) Smokes tobacco daily; Translations: [Tobacco use disorder] 12-16-2022 Chronic Comment on above: 1/ PPD; Unclassified (1 source) Thoracic aortic aneurysm without rupture, unspecified part (HCC); Translations: [Thoracic aortic aneurysm without rupture, unspecified part (HCC)] Onset: 03-25-2023 Past or Other Problems Problem Classification Problem Date Documented Date Episodic/Chronic Acute and unspecified renal failure (4 sources) Acute injury of kidney; Translations: [Acute kidney failure, unspecified] Onset: 01-16-2023 01-16-2023 Episodic Acute myocardial infarction (14 sources) Myocardial infarction; Translations: [Subendocardial infarction, initial episode of care] Onset: 01-16-2023 Resolved: 01-16-2023 01-16-2023 Chronic Blindness and vision defects (1 source) Left homonymous hemianopsia; Translations: [Homonymous bilateral field defects, left side] Onset: 12-26-2022 12-26-2022 Episodic E Codes: Fall (4 sources) Fall; Translations: [Unspecified fall, initial encounter] Onset: 01-16-2023 01-16-2023 Episodic Fluid and electrolyte disorders (4 sources) Metabolic acidosis, increased anion gap (IAG); Translations: [High anion gap metabolic acidosis] Onset: 01-16-2023 01-16-2023 Episodic Intestinal obstruction without hernia (4 sources) Fecal impaction; Translations: [Fecal impaction] Onset: 01-18-2023 01-18-2023 Episodic Noninfectious gastroenteritis (4 sources) Stercoral colitis; Translations: [Other specified noninfective gastroenteritis and colitis] Onset: 01-18-2023 01-18-2023 Episodic Other circulatory disease (4 sources) History of cerebrovascular accident; Translations: [Personal history of transient ischemic attack (TIA), and cerebral infarction without residual deficits] Onset: 12-26-2022 01-16-2023 Episodic Other eye disorders (1 source) Dry eyes; Translations: [Dry eye syndrome of bilateral lacrimal glands] Onset: 12-26-2022 12-26-2022 Episodic Other screening for suspected conditions (not mental disorders or infectious disease) (4 sources) Raised cardiac enzyme or marker; Translations: [Other specified abnormal findings of blood chemistry] Onset: 01-16-2023 01-16-2023 Episodic Screening and history of mental health and substance abuse codes (4 sources) Ex-smoker; Translations: [Personal history of nicotine dependence] Onset: 01-16-2023 Resolved: 01-16-2023 01-16-2023 Episodic Spondylosis; intervertebral disc disorders; other back problems (8 sources) Lumbar radiculopathy; Translations: [Radiculopathy, lumbar region] Onset: 11-27-2021 Resolved: 01-16-2023 11-27-2021 Episodic Results Test Name Value Interpretation Reference Range Facility No Panel Informationon 04-14 Interpretation and review of laboratory results Abnormal [facility] TB UA (CLEAN/CATCH) ELEMENTARY EDUCATOR/ERICK RO IF IND.on 04-14-2023 BILIRUBIN URINE Negative NEGATIVE [facility] BLOOD URINE Negative NEGATIVE [facility] Clarity (U) CLEAR CLEAR [facility] Color (U) LT. YELLOW YELLOW [facility] GLUCOSE URINE UA >=1000 Abnormal NEGATIVE mg/dL [facility] Ketones Ql (U) Negative NEGATIVE mg/dL [facility] Leukocyte esterase Test strip Ql (U) SMALL Abnormal NEGATIVE [facility] NITRITE URINE Negative NEGATIVE [facility] pH (U) 6.0 [pH] 5.0 - 9.0 [facility] PROTEIN URINE Negative NEG/TRACE mg/dL [facility] SPECIFIC GRAVITY URINE 1.010 1.005 - 1.025 [facility] URINE MICROSCOPIC INDICATED YES [facility] UROBILINOGEN URINE 0.2 EU/dL 0.2 - 1.0 EU/dL [facility] TBH URINE MICROSCOPIC ONLYon 04-14-2023 BACTERIA URINE SMALL Abnormal NONE SEEN #/HPF [facility] CAST SEEN? NONE SEEN NONE SEEN #/LPF [facility] CRYSTALS SEEN? None Seen None Seen #/HPF [facility] MUCUS URINE TRACE Abnormal NONE SEEN [facility] SQUAMOUS EPITHELIAL CELL URINE FEW Abnormal NONE/RARE #/LPF [facility] TBH RBC 0-2 [facility] WBC 10-20 Abnormal NONE SEEN #/HPF [facility] URINE CULTURE INDICATED YES [facility] YEAST URINE SEEN Abnormal NONE SEEN [facility] Comment on above: 4+ BUDDING CBC panel Auto (Bld)on 03-25 Erythrocyte distribution width (RBC) [Ratio] 14.9 % Normal 11.5-15.0 [facility] Comment on above: Order Comment: Speci men Type: BLOOD SPECIMENOrdering Facility: [facility] Address: [address] [place] [address] Performed By: #### 5 8410-2 ####[facility] LABIA [id number] [place] [address] [place] Hematocrit (Bld) [Volume fraction] 37.0 % Normal 36.0-46.0 [facility] Comment on above: Order Comment: Speci men Type: BLOOD SPECIMENOrdering Facility: [facility] Address: [address] [place] [address] Performed By: #### 5 8410-2 ####[facility]IA [id number] [place] [address] [place] Hemoglobin (Bld) [Mass/Vol] 12.1 g/dL Normal 11.5-15.5 [facility] Comment on above: Order Comment: Speci men Type: BLOOD SPECIMENOrdering Facility: [facility] Address: [address] [place] [address] Performed By: #### 5 8410-2 ####[facility] LABIA [id number] [place] [address] [place] MCH (RBC) [Entitic mass] 29.4 pg Normal 26.0-34.0 [facility] Comment on above: Order Comment: Speci men Type: BLOOD SPECIMENOrdering Facility: [facility] Address: [address] [place] [address] Performed By: #### 5 8410-2 ####[facility] LABCLIA [id number] [place] [address] [place] MCHC (RBC) [Mass/Vol] 32.7 g/dL Normal 30.5-36.0 [facility] Comment on above: Order Comment: Speci men Type: BLOOD SPECIMENOrdering Facility: [facility] Address: [address] [place] [address] Performed By: #### 5 8410-2 ####[facility] LABCLIA [id number] [place] [address] [place] MCV (RBC) [Entitic vol] 90.0 fL Normal 80.0-100.0 [facility] Comment on above: Order Comment: Speci men Type: BLOOD SPECIMENOrdering Facility: [facility] Address: [address] [place] [address] Performed By: #### 5 8410-2 ####[facility] LABIA [id number] [place] [address] [place] Nucleated RBC (Bld) [#/Vol] 10*3/uL Normal <0.01 [facility] Comment on above: Order Comment: Speci men Type: BLOOD SPECIMENOrdering Facility: [facility] Address: [address] [place] [address] Performed By: #### 5 8410-2 ####[facility] LABIA [id number] [place] [address] [place] Platelet mean volume (Bld) [Entitic vol] 12.2 fL Normal 9.0-12.7 [facility] Comment on above: Order Comment: Speci men Type: BLOOD SPECIMENOrdering Facility: [facility] Address: [address] [place] [address] Performed By: #### 5 8410-2 ####[facility]IA [id number] [place] [address] [place] Platelets (Bld) [#/Vol] 157 10*3/uL Normal 150-400 [facility] Comment on above: Order Comment: Speci men Type: BLOOD SPECIMENOrdering Facility: [facility] Address: [address] [place] [address] Performed By: #### 5 8410-2 ####[facility] LABCLIA [id number] [place] [address] [place] RBC (Bld) [#/Vol] 4.11 10*6/uL Normal 3.90-5.20 [facility] Comment on above: Order Comment: Speci men Type: BLOOD SPECIMENOrdering Facility: [facility] Address: [address] [place] [address] Performed By: #### 5 8410-2 ####[facility] LABIA [id number] [place] [address] [place] WBC (Bld) [#/Vol] 3.70 10*3/uL Normal 3.70-11.00 [facility] Comment on above: Order Comment: Speci men Type: BLOOD SPECIMENOrdering Facility: [facility] Address: [address] [place] [address] Performed By: #### 5 8410-2 ####[facility] LABIA [id number] [place] [address] [place] CNOVon 03-25-2023 CNOV Office Visit (VASSMN ) LUCILA TINEO ([id number]) 1950 F Date Time Provider Department 03/25/23 9:15 AM CARINE, BRO J VASSMN During your visit today, we recorded the following information about you: Pulse Blood pressure 104/minute 140/84 Bro Hawk MD 03/25/2023 11:09 AM Signed [facility] DEPARTMENT OF VASCULAR SURGERY OUTPATIENT VISIT DATE [...] Reactions Peni (more content not included)... Normal [facility] CT BRAIN WO IVCONon 03-25-19 CT BRAIN WO IVCON * * *Final Report* * * DATE OF EXAM: Mar 25 2023 12:09PM [facility] 0504 - CT BRAIN WO IVCON [...] administration for the CTA chest/abdomen/pelvis, degrading assessment. [place] (topogram) images: No additional findings. Post-operative change: [...] in the right posterior MCA and left MANAGER TARGET territories with associated encephalomalacic changes, and interval development of high attenuation along the cortical margins on the right and few areas of high attenuation in the left MANAGER TARGET territory. Findings most likely reflect gyriform enhancement [...] temporal lobe and stable adjacent vasogenic edema. Dental Financial Coordinator: МАРИНА Transcribe Date/Time: Mar 25 2023 12:10P Dictated by : KRISTINE SANDHU MD This examination was interpreted and the report reviewed and electronically signed by: KASSANDRA SAWYER MD on Mar 25 2023 12:53PM EST [id number] Normal [facility] CTA ABD/PELV WO/W IVCONon CTA ABD/PELV WO/W IVCON * * *Final Report* * * DATE OF EXAM: Mar 25 2023 10:28AM [facility] 0467 - CTA ABD/PELV WO/W IVCON [...] AORTIC DIMENSIONS: AORTIC ROOT: 3.3 cm measured [id number] mid ASCENDING THORACIC AORTA: 3.7 cm mid [...] progression since 2020. No significant changes otherwise. Dental Financial Coordinator: PSCB Transcribe Date/Time: Mar 25 2023 12:00P Dictated by : SOHAM ALEMAN MD This examination was interpreted and the report reviewed and electronically signed by: SOHAM ALEMAN MD on Mar 25 2023 1:16PM EST [id number] Normal [facility] CTA CHEST (NONGATED) WO/W IV CONon 03-25-2023 CTA CHEST (NONGATED) WO/W IVCON * * *Final Report* * * DATE OF EXAM: Mar 25 2023 10:28AM [facility] 0124 - CTA CHEST (NONGATED) WO/W [...] AORTIC DIMENSIONS: AORTIC ROOT: 3.3 cm measured [id number] mid ASCENDING THORACIC AORTA: 3.7 cm mid [...] progression since 2020. No significant changes otherwise. Dental Financial Coordinator: PSCB Transcribe Date/Time: Mar 25 2023 12:00P Dictated by : SOHMA ALEMAN MD This examination was interpreted and the report reviewed and electronically signed by: SOHAM ALEMAN MD on Mar 25 2023 1:16PM EST [id number] Normal [facility] metabolic 2000 panelon 03-25-2023 Albumin [Mass/Vol] 3.5 g/dL Low 3.9-4.[address] [facility] Comment on above: Order Comment: Speci men Type: BLOOD SPECIMENOrdering Facility: [facility] Address: [address] [place], [place] [id number] Performed By: #### 2 4323-8 ####[facility] LABCLIA [id number] [address] [address] [place] ALP [Catalytic activity/Vol] 93 U/L Normal 34-123 [facility] Comment on above: Order Comment: Speci men Type: BLOOD SPECIMENOrdering Facility: [facility] Address: [address] [place], [place] [id number] Result Comment: Resu lts may be falsely decreased due to interference from hemolysis. Suggest reorder as clinically indicated. Performed By: #### 2 4323-8 ####[facility] LABCLIA [id number] [place] [address] [place] ALT [Catalytic activity/Vol] 21 U/L Normal 7-38 [facility] Comment on above: Order Comment: Speci men Type: BLOOD SPECIMENOrdering Facility: [facility] Address: [address] [place] [address] Result Comment: Resu lts may be falsely increased due to interference from hemolysis. Suggest reorder as clinically indicated. Performed By: #### 2 4323-8 ####[facility] LABCLIA [id number] [place] [address] [place] Anion gap [Moles/Vol] 11 mmol/L Normal 9-18 [facility] Comment on above: Order Comment: Speci men Type: BLOOD SPECIMENOrdering Facility: [facility] Address: [address] [place], [place] [address] Performed By: #### 2 4323-8 ####[facility] LABCLIA [id number] [place] [id number] [place] AST [Catalytic activity/Vol] 49 U/L High 13-35 [facility] Comment on above: Order Comment: Speci men Type: BLOOD SPECIMENOrdering Facility: [facility] Address: [address] [place] [address] Result Comment: Resu lts may be falsely increased due to interference from hemolysis. Suggest reorder as clinically indicated. Performed By: #### 2 4323-8 ####[facility] LABCLIA [id number] [place] [address] [place] Bilirubin [Mass/Vol] 0.4 mg/dL Normal 0.2-1.3 [facility] Comment on above: Order Comment: Speci men Type: BLOOD SPECIMENOrdering Facility: [facility] Address: [address] [place] [address] Performed By: #### 2 4323-8 ####[facility] LABCLIA [id number] [place] [address] [place] Calcium [Mass/Vol] 9.1 mg/dL Normal 8.5-10.[address] [facility] Comment on above: Order Comment: Speci men Type: BLOOD SPECIMENOrdering Facility: [facility] Address: [address] [place] [address] Performed By: #### 2 4323-8 ####[facility] LABCLIA [id number] [place] [address] [place] Chloride [Moles/Vol] 101 mmol/L Normal 97-105 [facility] Comment on above: Order Comment: Speci men Type: BLOOD SPECIMENOrdering Facility: [facility] Address: [address] [place] [address] Performed By: #### 2 4323-8 ####[facility] LABCLIA [id number] [place] [address] [place] CO2 [Moles/Vol] 19 mmol/L Low 22-30 [facility] Comment on above: Order Comment: Speci men Type: BLOOD SPECIMENOrdering Facility: [facility] Address: [address] [place] [address] Performed By: #### 2 4323-8 ####[facility] LABCLIA [id number] [place] [id number] [place] Creatinine [Mass/Vol] 0.60 mg/dL Normal 0.58-0.96 [facility] Comment on above: Order Comment: Letty sanchez Type: BLOOD SPECIMENOrdering Facility: [facility] Address: [address] [place] [address] Performed By: #### 2 4323-8 ####[facility] LABIA [id number] [place] [address] [facility] Creatinine and Glomerular filtration rate.predicted panel (S/P/Bld) 95 mL/min/1.73m??? Normal >=60 [facility] Comment on above: Order Comment: Letty sanchez Type: BLOOD SPECIMENOrdering Facility: [facility] Address: [address] [place] [address] Result Comment: Janice mated Glomerular Filtration Rate [...] actual GFR. Performed By: #### 2 4323-8 ####[facility] LABIA [id number] [place] [address] [place] Glucose [Mass/Vol] 435 mg/dL High 74-[address] [facility] Comment on above: Order Comment: Letty sanchez Type: BLOOD SPECIMENOrdering Facility: [facility] Address: [address] [place] [address] Result Comment: The [place] Diabetes Association (ADA) provides guidance for cutoff [...] Standards of Medical Care in Diabetes 2016, [place] Diabetes Association. Diabetes Care. 2016.39(Suppl 1). Performed By: #### 2 4323-8 ####[facility] LABCLIA [id number] [place] [address] [place] Potassium [Moles/Vol] Normal [facility] Comment on above: Order Comment: Speci men Type: BLOOD SPECIMENOrdering Facility: [facility] Address: [address] [place] [address] Result Comment: Unab le to assay due to interference from hemolysis. Suggest reorder as clinically indicated. Performed By: #### 2 4323-8 ####[facility] LABCLIA [id number] [place] [address] [place] Protein [Mass/Vol] 6.7 g/dL Normal 6.3-8.[address] [facility] Comment on above: Order Comment: Letty sanchez Type: BLOOD SPECIMENOrdering Facility: [facility] Address: [address] [place] [address] Result Comment: Resu lts may be falsely increased due to interference from hemolysis. Suggest reorder as clinically indicated. Performed By: #### 2 4323-8 ####[facility] LABCLIA [id number] [place] [address] [place] Sodium [Moles/Vol] 131 mmol/L Low 136-[address] [facility] Comment on above: Order Comment: Letty sanchez Type: BLOOD SPECIMENOrdering Facility: [facility] Address: [address] [place] [address] Performed By: #### 2 4323-8 ####[facility] LABCLIA [id number] [place] [address] [place] Urea nitrogen [Mass/Vol] 16 mg/dL Normal 7-21 [facility] Comment on above: Order Comment: Speci men Type: BLOOD SPECIMENOrdering Facility: [facility] Address: [address] [place] [address] Performed By: #### 2 4323-8 ####[facility] LABCLIA [id number] [facility] [place] [address] [place] ECG COMPLETEon 03-25-2023 ECG COMPLETE Ventricular Rate : 8 9 BPM Atrial Rate : 89 BPM P-R Interval : 146 ms QRS Duration : 72 ms Q-T Interval : 370 ms QTC Calculation(Bazett) : 450 ms Calculated P [place] : 21 degrees Calculated R [place] : -6 degrees Calculated T [place] : 3 degrees NORMAL SINUS RHYTHM . BORDERLINE ECG Confirmed by DO CHRISTINE BRUCE ([id number]), dictionary editor YONY CHRIS ([id number]) on 03/27/2023 9:35:29 AM NAME : LUCILA TINEO PID : [id number] : 1950 Gender : Female Race : ORD : [id number] Procedure Date : Mar 25 2023 11:38:10 Edit Date : Mar 27 2023 09:35:30 Diagnosis: NORMAL SINUS RHYTHM . 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 Author Type: Registered Nurse Type: ED Notes Filed: 03/25/2023 11:23 Note Text: Bed: E18-11 Expected date: Expected time: Means of arrival: Comments: HUGO Normal [facility] ED PROV NOTEon 03-25-2023 ED PROV NOTE HNO ID: [id number] Author: EDWARD CHRISTINE DO Service: Emergency Medicine [...] arteries partially occluded Thoracoabdominal aortic aneurysm (TAAA) ([facility]) PAST SURGICAL HISTORY Procedure Laterality Date [...] pain, unspecified type Coronary artery disease involving [place] coronary artery of [place] heart without angina pectoris Uncontrolled type 2 [...] emergency depar (more content not included)... Normal [facility] HIGH SENSITIVITY TROPONIN T (INITIAL)on 03-25-2023 Troponin T.cardiac High sensitivity method [Mass/Vol] 18 ng/L High <12 [facility] Comment on above: Order Comment: Letty sanchez Type: BLOOD SPECIMENOrdering Facility: [facility] Address: [address] [place] [address] Result Comment: When assessing risk for acute [...] 30 day MACE. Performed By: #### L [id number] ####[facility] LABCLIA [id number] [place] [address] [place] HIGH SENSITIVITY TROPONIN T (SECOND)on 03-25-2023 Troponin T.cardiac High sensitivity method [Mass/Vol] 17 ng/L High <12 [facility] Comment on above: Order Comment: Letty sanchez Type: BLOOD SPECIMENOrdering Facility: [facility] Address: [address] [place] [address] Result Comment: When assessing risk for acute [...] 30 day MACE. Performed By: #### L [id number] ####[facility] LABCLIA [id number] [place] [address] [place] HIGH SENSITIVITY TROPONIN T (THIRD) 3 HRS AFTER INITIALon 03-25-2023 Troponin T.cardiac High sensitivity method [Mass/Vol] 18 ng/L High <12 [facility] Comment on above: Order Comment: Speci men Type: BLOOD SPECIMENOrdering Facility: [facility] Address: [address] [place] [address] Result Comment: When assessing risk for acute [...] 30 day MACE. Performed By: #### L [id number] ####[facility] LABCLIA [id number] [place] [address] [place] XR CHEST 2V [...] since 09/20/20 most concerning for neoplasm Emphysema Dental Financial Coordinator: PSCB Transcribe Date/Time: Mar 25 2023 12:49P Dictated by : KHLOE GAYLE MD This examination was interpreted and the report reviewed and electronically signed by: KHLOE GAYLE MD on Mar 25 2023 1:04PM EST [id number] Normal [facility] CNPNon 03-13-2023 CNPN Telephone (PODP) LUCILA TINEO ([id number]) 1950 F Date Time Provider Department 03/13/23 DARRYL SAUER During your visit today, we recorded the following information about you: Darryl Sauer, RN 03/13/2023 3:39 PM Signed Reason for call: Mila called and she would like to schedule an appointment for Lucila with Dr Hawk. Looking for a Thursday apt. Contact Name: Mila Kramer Home and cell number: [phone] Diagnosis: TAAA. Rapid new growth Kind RegardsDarryl [...] Encounter Status:Closed by DARRYL SAUER on 03/13/23 [facility] [place] 01-02-2023 [place] Telephone ([facility] LUCILA TINEO ([id number]) 1950 F Date Time Provider Department 01/02/23 JAH SHARPE During your visit today, we recorded the following information about you: Lane Vogt RN 01/02/2023 1:34 PM Signed Voice mail left for daughter to discuss plan of care for follow up of cerebral aneurysm as discussed with Dr Sharpe at appointment. Imaging in 6 months versus cerebral angiogram. Requested daughter to either call this office or send a [employer] message with preference Henry KatherineElisa 01/07/2023 12:30 PM Signed Daughter, Mila Kramer returned call - please call [phone]. Lane Vogt RN 01/07/2023 12:43 PM Signed Attempted to return call, voice mail left for daughter with office number to return call to this office at her convenience. Josh KatherineJenny 01/07/2023 2:14 PM Signed Please call daughter back at [phone]. Until 4pm. 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 no, who is the referring provider : Osei Roe [employer] in [place], [place]/His direct office number if any questions: [phone] Is this a direct referral? yes neurosurgeon Have you been recommended for surgery or procedure? Yes. coiling Are you seeking a second opinion? Yes. Do you have a MRI/MRA/CT/Ultrasound for this diagnosis? Yes. Type of imaging CT's, name/address of facility where completed [facility]. [Only has reports in folder, no images] [...] 2:22 PM Addendum OSH imaging/records received from [facility]: December 04, 2022 -12.02.22 Dr. Roe Progress Notes scanned to chart. PENDING: Imaging -Medical Hx AND Imaging Reports Walked discs over to imaging library + gave to Adry to upload MAGDALENE. Successfully sent CARRI AND Fedex overnight label via [employer]~ Tracking#[id number] December 05, 2022 10:30 AM 07 [employer]Ex Priority Overnight? $14.14 From: Theresabentley Echols Andre Last change on 12/04/2022 12:16:46 pm Sent on 12/04/2022 12:16:33 pm Completed ThaiErisTonja 12/09/2022 2:25 PM Addendum OSH imaging/records received from [facility]: December 08, 2022 -10.3.23 Dr. Roe Progress Notes scanned to chart. -Medical Hx AND Imaging Reports available in Care Everywhere. Received confirmation email from [employer] that imaging hs been uploaded--per dropping off [...] 100 unit (more content not included)... Normal [facility] SCREENING MAMMOGRAM W/SALUO, BILATERAL*on 04-24-2022 SCREENING MAMMOGRAM W/SAULO, BILATERAL* COMPARISON: [...] VERY IMPORTANT TO YOUR HEALTH. THE CURRENT [place] [employer] GUIDELINES RECOMMENDS ANNUAL MAMMOGRAPHY BEGINNING AT AGE 40 THIS FACILITY USES A REMINDER SYSTEM TO ENSURE ALL PATIENTS RECEIVE REMINDER NOTIFICATIONS AT THE APPROPRIATE TIME BASED ON THE RECOMMENDATIONS OF THIS EXAM. Report reported and signed by Silviano Roth on 04/25/2022 0759 Normal [facility] Oracle Security Consultant Office Visit (Cardiology)on 12-11-2021 Follow-up visit Diagnoses/Problems [...] we can help. You may also call [phone] for free resources and assistance.; Status:Complete - [...] Recorded: 11Dec2021 11:20AM Heart Rate76, L Radial Lomstqyq925, LUE, Sitting Uwqocsmaj52, LUE, Sitting Height5 ft 4 in Kkxsqy623 lb BMI Fcfhbiepny32.98 kg/m2 BSA Calculated1.79 Tobacco Usea) Yes Patient encouraged to stop using tobacco productsYes PHQ-2 #1. Over the last 2 weeks have you felt down, depressed or hopeless? (If yes, answer PHQ-9 below)No PHQ-2 #2. Over the last 2 weeks have you felt little interest or pleasure in doing things? (If yes, answer PHQ-9 below)No Fa (more content not included)... Normal [facility] Tobacco Screening.on 022 Adult depression screening assessment No [facility] 250 DO Work Phone: Fall risk assessment b) One or more fall s in the last year [facility] [employer] 250 DO Work Phone: Tobacco use status CPHS a) Yes [facility] [employer] 250 DO Work Phone: Tobacco Screening. Yes [facility] [employer] 250 DO Work Phone: XR Spine Lumbar Complete w/F tyrone AND [place] 11-18-2021 XR Spine Lumbar Complete w/Flex AND [...] by Silviano Roth on 11/18/2021 1519 Normal [facility] [employer] Security Consultant US Venous, Bilateral, Lower [place] 10-02-2021 US Venous, Bilateral, Lower Ext FINDINGS: [...] by Silviano Roth on 10/03/2021 0652 Normal [facility] [employer] Security Consultant Office Visit (Cardiology)on 02-05-2021 Follow-up visit Diagnoses/Problems Assessed Hypertension (401.9) (I10) Remains suboptimal CAD (coronary artery disease) (414.00) (I25.10) July 2020 ACS admit 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 ELECTRICAL TESTER in 2 weeks Adhering to 2017 AHA/ACC [...] hospitalized overnight and treated with infusion. 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 Fully recovered. [...] smoker (305.1) (more content not included)... Normal [facility] Tobacco Screening.on Fall risk assessment a) No falls within the last year -[facility] 250 DO Work Phone: Tobacco use status CPHS a) Yes [facility] 250 DO Work Phone: Tobacco Screening. Yes [facility] 250 DO Work Phone: Tobacco Screening.on Fall risk assessment a) No falls within the last year [facility] 600 DO Work Phone: Tobacco use status CPHS a) Yes [facility] 600 DO Work Phone: Tobacco Screening. Yes [facility] 600 DO Work Phone: Comprehensive Metabolic Pane dom 08-08-2020 Albumin [Mass/Vol] 3.1 g/dL Low 3.2-5.5 [facility] Comment on above: Performed By: #### C MP #### [facility] [address] [id number] [facility] Albumin/Globulin [Mass ratio] 0.9 {ratio} Normal [facility] Comment on above: Performed By: #### C MP #### [facility] [address] [place] [address] [place] ALP [Catalytic activity/Vol] 98 U/L High 32- [facility] Comment on above: Performed By: #### C MP #### [facility] [address] [place] [address] [facility] ALT [Catalytic activity/Vol] 17 U/L Normal 10- [facility] Comment on above: Performed By: #### C MP #### [address] AST [Catalytic activity/Vol] 24 U/L Normal 10-42 [facility] Comment on above: Performed By: #### C MP #### [address] Bilirubin [Mass/Vol] 0.6 mg/dL Normal 0.3-1.2 [facility] Comment on above: Performed By: #### C MP #### [address] Calcium [Mass/Vol] 8.8 mg/dL Normal 8.2-10.2 [facility] Comment on above: Performed By: #### C MP #### [address] Chloride [Moles/Vol] 103 mmol/L Normal 95-114 [facility] Comment on above: Performed By: #### C MP #### [address] CO2 [Moles/Vol] 20.4 mmol/L Low 22.0-30.0 [facility] Comment on above: Performed By: #### C MP #### [address] Creatinine [Mass/Vol] 1.06 mg/dL High 0.44-1.03 [facility] Comment on above: Performed By: #### C MP #### [address] Creatinine Clr Calc Pharmacy 49.44 [facility] Comment on above: Result Comment: PERF ORMED BY: [place] [address] PATHOLOGIST NEURO PSYCH SALES SPECIALIST DOMINGA SOLIMAN M.D. Performed By: #### C MP #### [address] Estimated GFR ( Grace > 60 Normal [facility] Comment on above: Result Comment: GFR estimated reference range: According to KDOQI guidelines, <60 ml/min/1.73m2 is sufficient to diagnose a patient with chronic kidney disease. Performed By: #### C MP #### [address] Estimated GFR (Non- Am 51 Normal [facility] Comment on above: Performed By: #### C MP #### [facility] [address] Globulin (S) [Mass/Vol] 3.3 g/dL Normal [facility] Comment on above: Performed By: #### C MP #### [address] Glucose [Mass/Vol] 282 mg/dL High 70-100 [facility] Comment on above: Result Comment: [place] Glucose Reference Range is dependent on time and content of last meal. Glucose of more than 200 mg/dL in a nonstressed, ambulatory subject supports the diagnosis of Diabetes Mellitus. ADA recommended reference range Performed By: #### C MP #### [address] Potassium [Moles/Vol] 4.5 mmol/L Normal 3.5-5.1 [facility] Comment on above: Performed By: #### C MP #### [address] Protein [Mass/Vol] 6.4 g/dL Normal 6.1-7.9 [facility] Comment on above: Performed By: #### C MP #### [address] Sodium [Moles/Vol] 134 mmol/L Low 136-146 [facility] Comment on above: Performed By: #### C MP #### [address] Urea nitrogen [Mass/Vol] 29 mg/dL High 9-23 [facility] Comment on above: Performed By: #### C MP #### [address] ECG 12 lead ECGon 06-09-2021 ECG 12 lead ECG [facility] [address] [place] [address] [place] [address] Electrocardiograph Report Signed Patient: Lucila Tineo MR#: [id number] : 1950 Acct:[id number] Age/Sex: 70 / F ADM Date: 08/06/20 Loc: Room: [address] [place] [address] Type: ADM IN Attending Dr: Drew Patterson [...] MD 08/08/20 0734 Signed By: 08/08/20 1017 [facility] Glucose Poct Glucometerson 0 08-08-2020 Commemt1 Glu2: Cleaned Meter [facility] Comment on above: Result Comment: PERF ORMED BY: [place] [address] PATHOLOGIST NEURO PSYCH SALES SPECIALIST DOMINGA SOLIMAN M.D. Performed By: #### P T, CBC, PTT #### [place] [address] [place] Glucose [Mass/Vol] 354 mg/dL Normal [facility] Comment on above: Result Comment: [facility][note 2] Glucose Reference Range is dependent on time and content of last meal. Glucose of more than 200 mg/dL in a nonstressed, ambulatory subject supports the diagnosis of Diabetes Mellitus. Performed By: #### P T, CBC, PTT #### [facility] [address] [place] [address] Commemt1 Glu2: Cleaned Meter [facility] Comment on above: Result Comment: PERF ORMED BY: [place] [address] PATHOLOGIST NEURO PSYCH SALES SPECIALIST DOMINGA SOLIMAN M.D. Performed By: #### P T, CBC, PTT #### [address] Glucose [Mass/Vol] 380 mg/dL Normal [facility] Comment on above: Result Comment: [place] om Glucose Reference Range is dependent on time and content of last meal. Glucose of more than 200 mg/dL in a nonstressed, ambulatory subject supports the diagnosis of Diabetes Mellitus. Performed By: #### P T, CBC, PTT #### [address] Glucose [Mass/Vol] 80 mg/dL Normal [facility] Comment on above: Result Comment: [place] om Glucose Reference Range is dependent on time and content of last meal. Glucose of more than 200 mg/dL in a nonstressed, ambulatory subject supports the diagnosis of Diabetes Mellitus. PERFORMED BY: [place] [address] PATHOLOGIST NEURO PSYCH SALES SPECIALIST DOMINGA SOLIMAN M.D. Performed By: #### P T, CBC, PTT #### [address] Commemt1 [facility] Comment on above: Result Comment: Glu2 : FOLLOW HYPOGLYCEMIC Performed By: #### P T, CBC, PTT #### [facility] [address] [place] [address] Commemt2 Cleaned Meter [facility] Comment on above: Performed By: #### P T, CBC, PTT #### [facility] [address] [place] [address]/RN [facility] Comment on above: Result Comment: PERF ORMED BY: [address] [address] PATHOLOGIST NEURO PSYCH SALES SPECIALIST DOMINGA SOLIMAN M.D. Performed By: #### P T, CBC, PTT #### [facility] [address] Glucose [Mass/Vol] 42 mg/dL Off scale low Fir [facility] Comment on above: Result Comment: [place] Glucose Reference Range is dependent on time and content of last meal. Glucose of more than 200 mg/dL in a nonstressed, ambulatory subject supports the diagnosis of Diabetes Mellitus. Performed By: #### P T, CBC, PTT #### [facility] [address] Troponin I(TnI)on 08-08-2020 Troponin I.cardiac [Mass/Vol] 2.45 ng/mL Off scale high 0-0.02 [facility] Comment on above: Result Comment: [place] Cut off value > or equal to 0.03 ng/mL in conjunction with clinical conditions of myocardial infarction. (www.escardio.org/guidelines) PERFORMED BY: [place] [address] PATHOLOGIST NEURO PSYCH SALES SPECIALIST DOMINGA SOLIMAN M.D. Performed By: #### T ROP #### [address] A1C with Estimated Average G luon 08-07-2020 Glucose [Mass/Vol] 183 mg/dL Normal [facility] Comment on above: Result Comment: PERF ORMED BY: [place] [address] PATHOLOGIST NEURO PSYCH SALES SPECIALIST DOMINGA SOLIMAN M.D. Performed By: #### G LULS #### Point of Care testing , HbA1c (Bld) [Mass fraction] 8.0 % High 4.3-5.6 [facility] Comment on above: Result Comment: Incr eased risk for diabetes: 5.7 - 6.4 diabetes: >6.4 glycemic control for adults with diabetes: <7.0 Performed By: #### G LULS #### Point of Care testing , Complete Blood Count Auto Di ffon 08-07-2020 Basophils (Bld) [#/Vol] 0.1 10*3/uL Normal 0.0-0.2 [facility] Comment on above: Result Comment: PERF ORMED BY: [facility] [place] [address] PATHOLOGIST NEURO PSYCH SALES SPECIALIST DOMINGA SOLIMAN M.D. Performed By: #### G LULS #### Point of Care testing , Basophils/100 WBC (Bld) 1.4 % Normal . [facility] Comment on above: Performed By: #### G LULS #### Point of Care testing , Eosinophils (Bld) [#/Vol] 0.1 10*3/uL Normal 0.0-0.45 [facility] Comment on above: Performed By: #### G LULS #### Point of Care testing , Eosinophils/100 WBC (Bld) 2.6 % Normal . [facility] Comment on above: Performed By: #### G LULS #### Point of Care testing , Erythrocyte distribution width (RBC) [Ratio] 15.6 % High 11.9-15.3 [facility] Comment on above: Performed By: #### G LULS #### Point of Care testing , Hematocrit (Bld) [Volume fraction] 39.8 % Normal 34.0-46.4 [facility] Comment on above: Performed By: #### G LULS #### Point of Care testing , Hemoglobin (Bld) [Mass/Vol] 13.8 g/dL Normal 11.8-15.4 [facility] Comment on above: Performed By: #### G LULS #### Point of Care testing , Lymphocytes (Bld) [#/Vol] 1.5 10*3/uL Normal 1.00-4.8 [facility] Comment on above: Performed By: #### G LULS #### Point of Care testing , Lymphocytes/100 WBC (Bld) 26.4 % Normal . [facility] Comment on above: Performed By: #### G LULS #### Point of Care testing , MCH (RBC) [Entitic mass] 30.9 pg Normal 24.7-34.3 [facility] Comment on above: Performed By: #### [place] MUNROE #### Point of Care testing , MCV (RBC) [Entitic vol] 89.0 fL Normal 80-100 [facility] Comment on above: Performed By: #### [place] MUNROE #### Point of Care testing , Mean Corpuscular HGB Conc 34.8 g/dL Normal 32.0-35.0 [facility] Comment on above: Performed By: #### G SHANEKA #### Point of Care testing , Monocytes (Bld) [#/Vol] 0.4 10*3/uL Normal 0.0-0.8 [facility] Comment on above: Performed By: #### [place] MUNROE #### Point of Care testing , Monocytes/100 WBC (Bld) 7.0 % Normal . [facility] Comment on above: Performed By: #### [place] MUNROE #### Point of Care testing , Neutrophils (Bld) [#/Vol] 3.6 10*3/uL Normal 1.8-7.7 [facility] Comment on above: Performed By: #### [place] MUNROE #### Point of Care testing , Neutrophils/100 WBC (Bld) 62.6 % Normal . [facility] Comment on above: Performed By: #### [place] MUNROE #### Point of Care testing , Nucleated RBC/100 WBC (Bld) [Ratio] 0.4 % Normal 0-0.5 [facility] Comment on above: Performed By: #### [place] MUNROE #### Point of Care testing , Platelet mean volume (Bld) [Entitic vol] 9.1 fL Normal 6.3-10.7 [facility] Comment on above: Performed By: #### [place] MUNROE #### Point of Care testing , Platelets (Bld) [#/Vol] 201 10*3/uL Normal 150-450 [facility] Comment on above: Performed By: #### [place] MUNROE #### Point of Care testing , RBC (Bld) [#/Vol] 4.47 10*6/uL Normal 3.60-5.00 [facility] Comment on above: Performed By: #### G LULS #### Point of Care testing , WBC (Bld) [#/Vol] 5.7 10*3/uL Normal 4.5-11.0 [facility] Comment on above: Performed By: #### G LULS #### Point of Care testing , Basophils (Bld) [#/Vol] 0.1 10*3/uL Normal 0.0-0.2 [facility] Comment on above: Result Comment: PERF ORMED BY: [place] [address] PATHOLOGIST NEURO PSYCH SALES SPECIALIST DOMINGA SOLIMAN M.D. Performed By: #### P T, CBC, PTT #### [address] Basophils/100 WBC (Bld) 0.7 % Normal . [facility] Comment on above: Performed By: #### P T, CBC, PTT #### [address] Eosinophils (Bld) [#/Vol] 0.1 10*3/uL Normal 0.0-0.45 [facility] Comment on above: Performed By: #### P T, CBC, PTT #### [address] Eosinophils/100 WBC (Bld) 1.5 % Normal . [facility] Comment on above: Performed By: #### P T, CBC, PTT #### [address] Erythrocyte distribution width (RBC) [Ratio] 15.4 % High 11.9-15.3 [facility] Comment on above: Performed By: #### P T, CBC, PTT #### [address] Hematocrit (Bld) [Volume fraction] 41.4 % Normal 34.0-46.4 [facility] Comment on above: Performed By: #### P T, CBC, PTT #### [address] [place] [address] [place] Hemoglobin (Bld) [Mass/Vol] 14.0 g/dL Normal 11.8-15.4 [facility] Comment on above: Performed By: #### P T, CBC, PTT #### [facility] [address] Lymphocytes (Bld) [#/Vol] 2.0 10*3/uL Normal 1.00-4.8 [facility] Comment on above: Performed By: #### P T, CBC, PTT #### [facility] [address] Lymphocytes/100 WBC (Bld) 30.1 % Normal . [facility] Comment on above: Performed By: #### P T, CBC, PTT #### [facility] [address] MCH (RBC) [Entitic mass] 30.4 pg Normal 24.7-34.3 [facility] Comment on above: Performed By: #### P T, CBC, PTT #### [address] MCV (RBC) [Entitic vol] 89.6 fL Normal 80-100 [facility] Comment on above: Performed By: #### P T, CBC, PTT #### [address] Mean Corpuscular HGB Conc 33.9 g/dL Normal 32.0-35.0 [facility] Comment on above: Performed By: #### P T, CBC, PTT #### [facility] [address] [place] [address] [place] Monocytes (Bld) [#/Vol] 0.4 10*3/uL Normal 0.0-0.8 [facility] Comment on above: Performed By: #### P T, CBC, PTT #### [facility] [address] [place] [address] [place] Monocytes/100 WBC (Bld) 6.4 % Normal . [facility] Comment on above: Performed By: #### P T, CBC, PTT #### [facility] [address] Neutrophils (Bld) [#/Vol] 4.2 10*3/uL Normal 1.8-7.7 [facility] Comment on above: Performed By: #### P T, CBC, PTT #### [facility] [address] Neutrophils/100 WBC (Bld) 61.3 % Normal . [facility] Comment on above: Performed By: #### P T, CBC, PTT #### [facility] [address] Nucleated RBC/100 WBC (Bld) [Ratio] 0.1 % Normal 0-0.5 [facility] Comment on above: Performed By: #### P T, CBC, PTT #### [address] Platelet mean volume (Bld) [Entitic vol] 8.9 fL Normal 6.3-10.7 [facility] Comment on above: Performed By: #### P T, CBC, PTT #### [address] Platelets (Bld) [#/Vol] 197 10*3/uL Normal 150-450 [facility] Comment on above: Performed By: #### P T, CBC, PTT #### [address] RBC (Bld) [#/Vol] 4.62 10*6/uL Normal 3.60-5.00 [facility] Comment on above: Performed By: #### P T, CBC, PTT #### [place] [address] [place] WBC (Bld) [#/Vol] 6.8 10*3/uL Normal 4.5-11.0 [facility] Comment on above: Performed By: #### P T, CBC, PTT #### [address] Comprehensive Metabolic Pane dom 08-07-2020 Albumin [Mass/Vol] 3.4 g/dL Normal 3.2-5.5 [facility] Comment on above: Performed By: #### [place] MUNROE #### Point of Care testing , Albumin/Globulin [Mass ratio] 1.0 {ratio} [facility] Comment on above: Performed By: #### [place] MUNROE #### Point of Care testing , ALP [Catalytic activity/Vol] 107 U/L High 32-92 [facility] Comment on above: Performed By: #### [place] MUNROE #### Point of Care testing , ALT [Catalytic activity/Vol] 17 U/L Normal 10-60 [facility] Comment on above: Performed By: #### [place] MUNROE #### Point of Care testing , AST [Catalytic activity/Vol] 25 U/L Normal 10-42 [facility] Comment on above: Performed By: #### [place] MUNROE #### Point of Care testing , Bilirubin [Mass/Vol] 0.9 mg/dL Normal 0.3-1.2 [facility] Comment on above: Performed By: #### [place] MUNROE #### Point of Care testing , Calcium [Mass/Vol] 9.1 mg/dL Normal 8.2-10.2 [facility] Comment on above: Performed By: #### [place] MUNROE #### Point of Care testing , Chloride [Moles/Vol] 105 mmol/L Normal 95-114 [facility] Comment on above: Performed By: #### [place] MUNROE #### Point of Care testing , CO2 [Moles/Vol] 20.9 mmol/L Low 22.0-30.0 [facility] Comment on above: Performed By: #### [place] MUNROE #### Point of Care testing , Creatinine [Mass/Vol] 0.96 mg/dL Normal 0.44-1.03 [facility] Comment on above: Performed By: #### [place] MUNROE #### Point of Care testing , Creatinine Clr Calc Pharmacy 54.35 [facility] Comment on above: Performed By: #### [place] MUNROE #### Point of Care testing , Estimated GFR ( Grace > 60 [facility] Comment on above: Result Comment: GFR estimated reference range: According to KDOQI guidelines, <60 ml/min/1.73m2 is sufficient to diagnose a patient with chronic kidney disease. Performed By: #### G ARVINDLS #### Point of Care testing , Estimated GFR (Non- Am 57 [facility] Comment on above: Performed By: #### G LULS #### Point of Care testing , Globulin (S) [Mass/Vol] 3.5 g/dL Normal [facility] Comment on above: Performed By: #### G LULS #### Point of Care testing , Glucose [Mass/Vol] 391 mg/dL High 70-100 [facility] Comment on above: Result Comment: [place] om Glucose Reference Range is dependent on time and content of last meal. Glucose of more than 200 mg/dL in a nonstressed, ambulatory subject supports the diagnosis of Diabetes Mellitus. ADA recommended reference range Performed By: #### G ARVINDLS #### Point of Care testing , Potassium [Moles/Vol] 4.4 mmol/L Normal 3.5-5.1 [facility] Comment on above: Performed By: #### G ARVINDLS #### Point of Care testing , Protein [Mass/Vol] 6.9 g/dL Normal 6.1-7.9 [facility] Comment on above: Performed By: #### G ARVINDLS #### Point of Care testing , Sodium [Moles/Vol] 136 mmol/L Normal 136-146 [facility] Comment on above: Performed By: #### G ARVINDLS #### Point of Care testing , Urea nitrogen [Mass/Vol] 19 mg/dL Normal 9-23 [facility] Comment on above: Performed By: #### G ARVINDLS #### Point of Care testing , Albumin [Mass/Vol] 3.4 g/dL Normal 3.2-5.5 [facility] Comment on above: Performed By: #### G LULS #### Point of Care testing , Albumin/Globulin [Mass ratio] 0.9 {ratio} [facility] Comment on above: Performed By: #### G LULS #### Point of Care testing , ALP [Catalytic activity/Vol] 100 U/L High 32-92 [facility] Comment on above: Performed By: #### G ARVINDLS #### Point of Care testing , ALT [Catalytic activity/Vol] 17 U/L Normal 10-60 [facility] Comment on above: Performed By: #### G LULS #### Point of Care testing , AST [Catalytic activity/Vol] 34 U/L Normal 10-42 [facility] Comment on above: Performed By: #### G LULS #### Point of Care testing , Bilirubin [Mass/Vol] 0.8 mg/dL Normal 0.3-1.2 [facility] Comment on above: Performed By: #### G ARVINDLS #### Point of Care testing , Calcium [Mass/Vol] 9.2 mg/dL Normal 8.2-10.2 [facility] Comment on above: Performed By: #### G ARVINDLS #### Point of Care testing , Chloride [Moles/Vol] 104 mmol/L Normal 95-114 [facility] Comment on above: Performed By: #### G ARVINDLS #### Point of Care testing , CO2 [Moles/Vol] 20.0 mmol/L Low 22.0-30.0 [facility] Comment on above: Performed By: #### G ARVINDLS #### Point of Care testing , Creatinine [Mass/Vol] 0.95 mg/dL Normal 0.44-1.03 [facility] Comment on above: Performed By: #### G ARVINDLS #### Point of Care testing , Creatinine Clr Calc Pharmacy 55.10 [facility] Comment on above: Result Comment: PERF ORMED BY: [facility] [address] [place] [address] PATHOLOGIST NEURO PSYCH SALES SPECIALIST DOMINGA SOLIMAN M.D. Performed By: #### G LULS #### Point of Care testing , Estimated GFR ( Grace > 60 Normal [facility] Comment on above: Result Comment: GFR estimated reference range: According to KDOQI guidelines, <60 ml/min/1.73m2 is sufficient to diagnose a patient with chronic kidney disease. Performed By: #### G LULS #### Point of Care testing , Estimated GFR (Non- Am 58 [facility] Comment on above: Performed By: #### G LULS #### Point of Care testing , Globulin (S) [Mass/Vol] 3.6 g/dL Normal [facility] Comment on above: Performed By: #### G LULS #### Point of Care testing , Glucose [Mass/Vol] 271 mg/dL High 70-100 [facility] Comment on above: Result Comment: [facility][note 2] Glucose Reference Range is dependent on time and content of last meal. Glucose of more than 200 mg/dL in a nonstressed, ambulatory subject supports the diagnosis of Diabetes Mellitus. ADA recommended reference range Performed By: #### G LULS #### Point of Care testing , Potassium [Moles/Vol] 4.0 mmol/L Normal 3.5-5.1 [facility] Comment on above: Performed By: #### G LULS #### Point of Care testing , Protein [Mass/Vol] 7.0 g/dL Normal 6.1-7.9 [facility] Comment on above: Performed By: #### G LULS #### Point of Care testing , Sodium [Moles/Vol] 136 mmol/L Normal 136-146 [facility] Comment on above: Performed By: #### G LULS #### Point of Care testing , Urea nitrogen [Mass/Vol] 15 mg/dL Normal 9-23 [facility] Comment on above: Performed By: #### G LULS #### Point of Care testing , ECH echo transthoracicon [facility] echo transthoracic [facility] [place] [address] Echocardiogram Signed Patient: Lucila Tineo MR#: [id number] : 1950 Acct:[id number] Age/Sex: 70 / F ADM Date: 08/06/20 Loc: Room: [address] [place] [address] Type: ADM IN Attending Dr: Drew Patterson MD Ordering Provider: Bravo Abdi MD Date of Service: 08/06/20 ECH/ECH echo transthoracic: NSTEMI, wall motion abnormalities Copies to: MD Cory Del Toro MD, [facility] Height: 64 in Weight: 167 lb Performed [...] DELANO 08/07/201126 Dictated By: Cory Rudd MD, [facility] 08/07/20 0927 Signed By: 08/07/20 1127 [facility] Glucose Poct Glucometerson 0 08-07-2020 Commemt3 Cleaned Meter [facility] Comment on above: Result Comment: PERF ORMED BY: [facility] [address] [facility] [place] [place] [address] PATHOLOGIST NEURO PSYCH SALES SPECIALIST DOMINGA SOLIMAN M.D. Performed By: #### G LULS #### Point of Care testing , Glucose [Mass/Vol] 503 mg/dL Off scale [facility] Comment on above: Result Comment: [place] Glucose Reference Range is dependent on time and content of last meal. Glucose of more than 200 mg/dL in a nonstressed, ambulatory subject supports the diagnosis of Diabetes Mellitus. Performed By: #### G LULS #### Point of Care testing , Commemt1 Glu2: Cleaned Meter [facility] Comment on above: Result Comment: PERF ORMED BY: [facility] [address] [place] [address] PATHOLOGIST NEURO PSYCH SALES SPECIALIST DOMINGA SOLIMAN M.D. Performed By: #### G LULS #### Point of Care testing , Glucose [Mass/Vol] 299 mg/dL [facility] Comment on above: Result Comment: [place] Glucose Reference Range is dependent on time and content of last meal. Glucose of more than 200 mg/dL in a nonstressed, ambulatory subject supports the diagnosis of Diabetes Mellitus. Performed By: #### G LULS #### Point of Care testing , Commemt1 [facility] Comment on above: Result Comment: Glu2 : Will Repeat Test Performed By: #### G LULS #### Point of Care testing , Result Comment: Glu2 : WILL NOTIFY DR/RN Commemt2 Cleaned Meter [facility] Comment on above: Result Comment: PERF ORMED BY: [facility] [address] [place] [address] PATHOLOGIST NEURO PSYCH SALES SPECIALIST DOMINGA SOLIMAN M.D. Performed By: #### G LULS #### Point of Care testing , Glucose [Mass/Vol] 429 mg/dL Off scale [facility] Comment on above: Result Comment: [facility][note 2] Glucose Reference Range is dependent on time and content of last meal. Glucose of more than 200 mg/dL in a nonstressed, ambulatory subject supports the diagnosis of Diabetes Mellitus. Performed By: #### G LULS #### Point of Care testing , Commemt1 Glu2: Cleaned Meter [facility] Comment on above: Performed By: #### P T, CBC, PTT #### [address] Commemt2 WILL NOTIFY DR/RN [facility] Comment on above: Performed By: #### G LULS #### Point of Care testing , Performed By: #### P T, CBC, PTT #### [address] Commemt3 Will Repeat Test [facility] Comment on above: Result Comment: PERF ORMED BY: [place] [address] PATHOLOGIST NEURO PSYCH SALES SPECIALIST DOMINGA SOLIMAN M.D. Performed By: #### P T, CBC, PTT #### [address] Glucose [Mass/Vol] 429 mg/dL Off scale [facility] Comment on above: Result Comment: [facility][note 2] Glucose Reference Range is dependent on time and content of last meal. Glucose of more than 200 mg/dL in a nonstressed, ambulatory subject supports the diagnosis of Diabetes Mellitus. Performed By: #### P T, CBC, PTT #### [facility] [address] [place] [address] Commemt1 Glu2: Cleaned Meter [facility] Comment on above: Result Comment: PERF ORMED BY: [place] [address] PATHOLOGIST NEURO PSYCH SALES SPECIALIST JIANLAN SUN M.D. Performed By: #### G LULS #### Point of Care testing , Glucose [Mass/Vol] 373 mg/dL Normal [facility] Comment on above: Result Comment: [place] om Glucose Reference Range is dependent on time and content of last meal. Glucose of more than 200 mg/dL in a nonstressed, ambulatory subject supports the diagnosis of Diabetes Mellitus. Performed By: #### G LULS #### Point of Care testing , Glucose [Mass/Vol] 261 mg/dL Normal [facility] Comment on above: Result Comment: [place] om Glucose Reference Range is dependent on time and content of last meal. Glucose of more than 200 mg/dL in a nonstressed, ambulatory subject supports the diagnosis of Diabetes Mellitus. PERFORMED BY: [place] [address] PATHOLOGIST NEURO PSYCH SALES SPECIALIST DOMINGA SOLIMAN M.D. Performed By: #### P T, CBC, PTT #### [address] Lipid Panelon 08-07-2020 Cholesterol [Mass/Vol] 201 mg/dL High 140-200 [facility] Comment on above: Result Comment: Chol less than 200 mg/dl low risk Chol 201-239 mg/dl borderline risk Chol 240 mg/dl and greater high risk Performed By: #### G LULS #### Point of Care testing , Cholesterol in HDL [Mass/Vol] 49 mg/dL Normal 35-85 [facility] Comment on above: Result Comment: HDL CHOL ATP-III CLASSIFICATION Cardiovascular Risk HDL > or equal to 60 mg/dL LOW HDL < 40 mg/dL HIGH Performed By: #### G LULS #### Point of Care testing , Cholesterol.total/Ch olesterol in HDL [Mass ratio] 4.1 {ratio} Normal <5.0 [facility] Comment on above: Result Comment: PERF ORMED BY: [place] [address] PATHOLOGIST NEURO PSYCH SALES SPECIALIST DOMINGA SOLIMAN M.D. Performed By: #### G LULS #### Point of Care testing , LDL Cholesterol,Calculat ed 127 mg/dL High 0-100 [facility] Comment on above: Result Comment: LDL ATP III CLASSIFICATION LDL less than 100 mg/dL Optimal LDL 100-129 mg/dL Near or above optimal LDL 130-159 mg/dL Borderline high LDL 160-189 mg/dL High LDL greater than 189 mg/dL Very high Performed By: #### G LULS #### Point of Care testing , Triglyceride w/Reflex 126 mg/dL Normal 35-149 [facility] Comment on above: Result Comment: TRIG ATP III CLASSIFICATION TRIG less than 150 mg/dL Normal TRIG 150-199 mg/dL Borderline high TRIG 200-500 mg/dL High TRIG greater than 500 mg/dL Very high Standard traceable to the Center for Disease Conrtrol and Prevention (CDC) test method. Performed By: #### G LULS #### Point of Care testing , VLDL CHOLESTEROL 25 mg/dL Normal [facility] Comment on above: Performed By: #### G LULS #### Point of Care testing , Magnesiumon 08-07-2020 Magnesium [Mass/Vol] 2.0 mg/dL Normal 1.6-2.6 [facility] Comment on above: Performed By: #### G LULS #### Point of Care testing , Partial Thromboplastin Timeo n 08-07-2020 aPTT Coag (Bld) [Time] 42.8 s High 25.1-36.5 [facility] Comment on above: Result Comment: PERF ORMED BY: [place] [address] PATHOLOGIST NEURO PSYCH SALES SPECIALIST DOMINGA SOLIMAN M.D. Performed By: #### G LULS #### Point of Care testing , aPTT Coag (Bld) [Time] 33.2 s Normal 25.1-36.5 [facility] Comment on above: Result Comment: PERF ORMED BY: [place] [address] PATHOLOGIST NEURO PSYCH SALES SPECIALIST DOMINGA SOLIMAN M.D. Performed By: #### P T, CBC, PTT #### [place] [address] [place] Prothrombin Time INRon 08-07 INR Coag (PPP) [Relative time] 1.0 {INR} Normal [facility] Comment on above: Result Comment: INR [...] [Time] 11.4 s Normal 9.0-12.9 [facility] Comment on above: Performed By: #### G LULS #### Point of Care testing , INR Coag (PPP) [Relative time] 1.0 {INR} Normal [facility] Comment on above: Result Comment: INR [...] By: #### P T, CBC, PTT #### [facility] [address] PT Coag (PPP) [Time] 11.2 s Normal 9.0-12.9 [facility] Comment on above: Performed By: #### P T, CBC, PTT #### [facility] [address] [place] [address] [place] Troponin I(TnI)on 08-07-2020 Troponin I.cardiac [Mass/Vol] 3.26 ng/mL Off scale high 0-0.02 [facility] Comment on above: Result Comment: [place] Cut off value > or equal to 0.03 ng/mL in conjunction with clinical conditions of myocardial infarction. (www.escardio.org/guidelines) PERFORMED BY: [place] [address] PATHOLOGIST NEURO PSYCH SALES SPECIALIST DOMINGA SOLIMAN M.D. Performed By: #### P T, CBC, PTT #### [address] Troponin I.cardiac [Mass/Vol] 3.61 ng/mL Off scale high 0-0.02 [facility] Comment on above: Result Comment: [place] Cut off value > or equal to 0.03 ng/mL in conjunction with clinical conditions of myocardial infarction. (www.escardio.org/guidelines) PERFORMED BY: [place] [address] PATHOLOGIST NEURO PSYCH SALES SPECIALIST DOMINGA SOLIMAN M.D. Performed By: #### T ROP #### [address] Troponin I.cardiac [Mass/Vol] 4.39 ng/mL Off scale high 0-0.02 [facility] Comment on above: Result Comment: Resu lts called at 0009 on 08/07/20 [place] Cut off value > or equal to 0.03 ng/mL in conjunction with clinical conditions of myocardial infarction. (www.escardio.org/guidelines) PERFORMED BY: [place] [address] PATHOLOGIST NEURO PSYCH SALES SPECIALIST DOMINGA SOLIMAN M.D. Performed By: #### P T, CBC, PTT #### [place] [id number] [facility] ECG 12 lead ECGon 08-06-2020 ECG 12 lead ECG [facility] [place] [address] Electrocardiograph Report Signed Patient: Lucila Tineo MR#: [id number] : 1950 Acct:[id number] Age/Sex: 70 / F ADM Date: 08/06/20 Loc: Room: [address] [place] [address] Type: ADM IN Attending Dr: Drew Patterson [...] 5:12:45 PM Referred By: Electronically Signed By:MARSHALL CASTLILO MD Transcribed By: MUS Dictated By: Marshall Castillo MD 08/06/202110 Signed By: 08/07/20 171 [facility] Vital Signs Date Time Vital Sign Value Performing Clinician Cody chinchilla 03-06-2023 10:08-0500 Body height 162.6 cm Ange Gee MD Work Phone: [facility] 03-06-2023 10:08-0500 Body mass index (BMI) [Ratio] 25.23 kg/m2 Ange Gee MD Work Phone: [facility] 03-06-2023 10:08-0500 Body weight 66.68 kg Ange Gee MD Work Phone: [facility] 03-06-2023 10:08-0500 Diastolic blood pressure 80 mm[Hg] Ange Gee MD Work Phone: [facility] 03-06-2023 10:08-0500 Heart rate 87 /min Ange Gee MD Work Phone: [facility] 03-06-2023 10:08-0500 SaO2% (BldA) [Mass fraction] 94 % Ange Gee MD Work Phone: [facility] 03-06-2023 10:08-0500 Systolic blood pressure 132 mm[Hg] Ange Gee MD Work Phone: [facility] 12-11-2021 11:20-0400 Body height 162.56 cm Mily Andrade Work Phone: [facility] 250 DO Work Phone: 12-11-2021 11:20-0400 Body mass index (BMI) [Ratio] 27.98 kg/m2 Mily Ashley Andrade Work Phone: [facility] 250 DO Work Phone: 12-11-2021 11:20-0400 Body surface area Derived from formula 1.79 m2 Mily Ashley Andrade Work Phone: [facility] 250 DO Work Phone: 12-11-2021 11:20-0400 Body weight 73.94 kg Mily Ashley Andrade Work Phone: [facility] 250 DO Work Phone: 12-11-2021 11:20-0400 Diastolic blood pressure 78 mm[Hg] Mily Ashley Andrade Work Phone: [facility] 250 DO Work Phone: 12-11-2021 11:20-0400 Heart rate 76 /min Mily Ashley Andrade Work Phone: [facility] 250 DO Work Phone: 12-11-2021 11:20-0400 Systolic blood pressure 136 mm[Hg] Mily Ashley Andrade Work Phone: [facility] 250 DO Work Phone: 02-05-2021 11:35-0500 Body height 162.56 cm Mily Ashley Andrade Work Phone: [facility] 250 DO Work Phone: 02-05-2021 11:35-0500 Body mass index (BMI) [Ratio] 28.67 kg/m2 Mily Ashley Andrade Work Phone: [facility] 250 DO Work Phone: 02-05-2021 11:35-0500 Body surface area Derived from formula 1.81 m2 Mily Ashley Andrade Work Phone: [facility] 250 DO Work Phone: 02-05-2021 11:35-0500 Body weight 75.75 kg Mily Ashley Andrade Work Phone: [facility] 250 DO Work Phone: 02-05-2021 11:35-0500 Diastolic blood pressure 81 mm[Hg] Mily Ashley Andrade Work Phone: [facility] 250 DO Work Phone: 02-05-2021 11:35-0500 Heart rate 77 /min Mily Ashley Andrade Work Phone: [facility] 250 DO Work Phone: 02-05-2021 11:35-0500 Systolic blood pressure 157 mm[Hg] Mily Ashley Andrade Work Phone: [facility] 250 DO Work Phone: 12-04-2020 15:01-0400 Diastolic blood pressure 72 mm[Hg] Bruce Elias DO Work Phone: [facility] 600 DO Work Phone: 12-04-2020 15:01-0400 Systolic blood pressure 170 mm[Hg] Bruce Elias DO Work Phone: [facility] 600 DO Work Phone: 12-04-2020 13:53-0400 Body height 162.56 cm Bruce Elias DO Work Phone: [facility] 600 DO Work Phone: 12-04-2020 13:53-0400 Body mass index (BMI) [Ratio] 29.01 kg/m2 Bruce Elias DO Work Phone: [facility] Work Phone: 12-04-2020 13:53-0400 Body surface area Derived from formula 1.82 m2 Burce Elias DO Work Phone: [facility] DO Work Phone: 12-04-2020 13:53-0400 Body weight 76.66 kg Bruce Elias DO Work Phone: [facility] DO Work Phone: 12-04-2020 13:53-0400 Diastolic blood pressure 90 mm[Hg] Bruce Elias DO Work Phone: [facility] DO Work Phone: 12-04-2020 13:53-0400 Heart rate 68 /min Bruce Elias DO Work Phone: [facility] DO Work Phone: 12-04-2020 13:53-0400 Systolic blood pressure 150 mm[Hg] Bruce Elias DO Work Phone: [facility] DO Work Phone: 11-06-2020 15:18-0400 70 1 Bruce Elias DO Work Phone: [facility] 600 DO Work Phone: Comment on above: [id number] Encounters Encounter Date Encounter Type Care Provider Facility Start: 04-29-2023 Telephone encounter Yeni Pfeiffer [facility] Comment on above: Calcified granuloma of lung (CMS-HCC) (Primary Dx) Start: 04-21-2023 End: 04-22-2023 ambulatory MILY ANDRADE Not Available Start: 04-14-2023 Clinisync Result Encounter Radha Herrera MD Work Phone: [facility] External Department Unsolicited Start: 04-14-2023 Clinisync Result Encounter Radha Herrera MD Work Phone: [facility] External Department Unsolicited Start: 03-25-2023 End: 03-25-2023 [facility] Start: 03-25-2023 End: 03-25-2023 ambulatory [facility] Facility:[facility] Start: 03-06-2023 End: 03-06-2023 ambulatory ANGE GEE [facility] Start: 03-06-2023 End: 03-06-2023 Office outpatient visit 25 minutes Ange Gee MD Work Phone: [facility] Comment on above: Essential hypertensi on (Primary Dx); Paroxysmal atrial fibrillation (CMS-HCC) Start: 03-05-2023 Telephone encounter Corrie Goldstein [facility] Start: 03-02-2023 ambulatory [facility] Start: 03-01-2023 ambulatory [facility] Start: 01-20-2023 ambulatory Jah Sharpe MD Work Phone: [facility] Comment on above: Anticoag Start: 01-16-2023 ambulatory Jah Sharpe MD Work Phone: [facility] Comment on above: Images Start: 01-02-2023 Telephone encounter Jah Sharpe MD Work Phone: [facility] Comment on above: Dermatology Specialist - O ther Start: 12-16-2022 End: 12-16-2022 ambulatory Jah Sharpe MD Work Phone: [facility] Comment on above: Unruptured cerebral aneurysm (Primary Dx); Ischemic stroke (HCC); Hypertension, unspecified type; Hyperlipidemia, unspecified hyperlipidemia type; Smoking Start: 12-16-2022 End: 12-16-2022 Telemedicine consultation with patient Jah Sharpe MD Work Phone: [facility] Start: 12-04-2022 Telephone encounter Neurology Provid er [facility] Comment on above: Future Appointment ( [place], [place], Any) Start: 08-25-2022 Rx Renewal Mily Gaitan andreia Work Phone: [facility] 250 DO Work Phone: Start: 01-07-2022 Rx Renewal Mily Gaitan andreia Work Phone: [facility] 250 DO Work Phone: Start: 12-11-2021 Office outpatient vi sit 15 minutes Mily A Andrade Work Phone: [facility] 250 DO Work Phone: Start: 12-11-2021 ambulatory Ms. Mily ramos Andrade Facility: Start: 10-11-2021 Telephone encounter Mily Ashley Andrade Work Phone: [facility] 250 DO Work Phone: Start: 09-03-2021 Rx Renewal Mily Gaitan andreia Work Phone: [facility] 250 DO Work Phone: Start: 02-05-2021 Office outpatient vi sit 10 minutes Mliy A Andrade Work Phone: [facility] 250 DO Work Phone: Start: 02-05-[address] Bruce Elias [facility]: Start: 12-04-2020 Patient encounter procedure Bruce Elias DO Work Phone: [facility] 600 DO Work Phone: Start: 09-05-2020 End: 03-06-2021 ambulatory SALAS KIRKPATRICK Facility:[facility]1 Echocardiogram normal Mily A Andrade Work Phone: [facility] 250 DO Work Phone: Procedures Date Procedure Procedure Detail Performing Clinician Start: 04-14-2023 [facility] UA (CLEAN/CATCH) ELEMENTARY EDUCATOR/MICRO IF IND. Radha Herrera MD Work Phone: Start: 04-14-2023 [facility] URINE MICROSCOPIC ONLY Radha Herrera MD Work Phone: Start: 03-06-2023 Follow-up visit Follow-up ANGE GEE Start: 04-24-2022 Mammography Radha Herrera MD Work Phone: Start: 06-05-2016 Colonoscopy Radha Herrera MD Work Phone: Appendectomy Bruce Elias DO Work Phone: Decompression of med estuardo nerve Bruce Elias DO Work Phone: Excision of cyst Bruce Keller kenya DO Work Phone: Hysterectomy Bruce Elias DO Work Phone: Ligation of fallopian tube Jodi Elias DO Work Phone: Percutaneous translu darryl coronary angioplasty Bruce Elias DO Work Phone: Tonsillectomy Bruce Updo ramos DO Work Phone: Total colonoscopy Bruce robin DO Work Phone: Plan of Treatment Date Care Activity Detail Author Start: 06-09-2028 DTaP,Tdap and Td Vaccines (2 - Td or Tdap) DTaP,Tdap and Td Vaccines (2 - Td or Tdap) [facility] Start: 06-09-2028 Urine microalbumin profile DTaP,Tdap,Td Vaccine (2 - Td or Tdap) [facility] Start: 06-05-2026 Screening for malign ant neoplasm of colon [facility] Start: 01-16-2026 Diabetes Screening Diabetes Screenin g [facility] Start: 12-26-2024 Glaucoma screening Diabetes: R etinopathy Screening [facility] Start: 03-06-2024 Adult BMI Screening Adult BMI Screen ing [facility] Start: 03-06-2024 Tobacco Screening Tobacco Screening [facility] Start: 01-22-2024 Adult BMI Screening Adult BMI Screen ing [facility] Start: 01-19-2024 Tobacco Screening Tobacco Screening [facility] Start: 06-25-2023 End: 06-25-2023 Patient encounter procedure 06/25/2023 2:00 PM EDT Office Visit [facility] [address] [place] [id number] Jeniffer Jefferson, DO [address] [address] [facility] Start: 05-17-2023 Urine screening for protein Diabetes: Urine Protein Screening [facility] Start: 04-24-2023 Screening for malign ant neoplasm of breast Mammogram [facility] Start: 04-21-2023 End: 04-21-2023 Patient encounter procedure 04/21/2023 3:00 PM EST Office Visit [facility] [address] [place] [id number] Mily Andrade NP [address] [place] [address] [facility] Start: 04-16-2023 Medicare Annual Well ness (AWV) Medicare Annual Wellness (AWV) [facility] Start: 03-06-2023 End: 03-06-2023 Patient encounter procedure 03/06/2023 10:15 AM EST Office Visit [facility] [address] [facility] [address] [place] [id number] Ange Gee MD [address] [place] [address] [facility] Start: 12-11-2022 FUV, Provider: Bruce Elias, Status: Pen, Time: 10:20 AM FUV, Provider: Bruce Elias, Status: Pen, Time: 10:[address] [facility] 250 DO Work Phone: Start: 10-31-2022 Covid-19 Vaccine () Covid-19 Vaccine ( season) [facility] Start: 10-31-2022 Influenza vaccination C [facility] Start: 06-11-2022 Hemoglobin A1c measurement Diabetes: Hemoglobin A1C [facility] Start: 03-02-2022 Advance Directive Discussion Advance Directive Discussion [facility] Start: 03-02-2022 Depression Assessment Depression Ass essment [facility] Start: 12-11-2021 FUV, Provider: Bruce Elias, Status: Pen, Time: 11:20 AM FUV, Provider: Bruce Elias, Status: Pen, Time: 11:20 AM [facility] Work Phone: Start: 02-19-2021 NURSEVST, Provider: DAVID LANDEROS DATA ANALYSIS ASSISTANT 1,[id number], Status: Pen, Time: 11:00 AM NURSE[facility]ST, Provider: DAVID LANDEROS DATA ANALYSIS ASSISTANT 1,[id number], Status: Pen, Time: 11:00 AM [facility] Work Phone: Start: 01-09-2021 FUV, Provider: Salas Wilson, Status: Pen, Time: 1:30 PM FUV, Provider: Salas Wilson, Status: Pen, Time: 1:30 PM [facility] DO Work Phone: Start: 04-03-2020 Administration of varicella zoster vaccine Zoster (Shingles) Vaccine (2 of 2) [facility] Start: 04-03-2020 Shingrix Vaccine (2 of 2) Shingrix Vaccine (2 of 2) [facility] Start: 2015 Bone Density Screening Bone Density Screening [facility] Start: 2015 Fall Risk Screening Fall Risk Screen ing [facility] Start: 2010 RSV Vaccine (1 - 1-d ose 60+ series) RSV Vaccine (1 - 1-dose 60+ series) [facility] Start: 02-22-2000 Shingrix Vaccine (1 of 2) Shingrix Vaccine (1 of 2) [facility] Start: 1995 Cologuard (FIT-DNA) Cologuard (FIT-D NA) [facility] Start: 1995 Colonoscopy Colonoscopy [facility] Start: 1995 Colorectal Cancer Screening Colorectal Cancer Screening [facility] Start: [address] COLONOGRAPHY [facility] Start: 1995 Diabetes Screening Diabetes Screenin g [facility] Start: 1995 Fecal Occult Blood Fecal Occult Bloo d [facility] Start: 1995 Lipid 1996 panel - S lilliam or Plasma Lipid Screening [facility] Start: 1995 SIGMOIDOSCOPY SIGMOIDOSCOPY [facility] Start: 1990 Mammography Mammogram Screening [facility] Start: 1969 Urine microalbumin profile DTaP,Tdap,Td Vaccine (1 - Tdap) [facility] Start: 02-22-1968 Adult BMI Follow Up Plan Adult BMI F ollow Up Plan [facility] Start: 02-22-1968 Diabetic foot examination Diabetic Foot Exam [facility] Start: 02-22-1968 Hepatitis C Screening Hepatitis C Sc reening [facility] Start: 1962 Depression Screening Depression Scre ening [facility] Start: 02-22-1956 Pneumococcal Vaccine : 65+ (1 - PCV) Pneumococcal Vaccine: 65+ (1 - PCV) [facility] Start: 1950 Glaucoma screening Diabetic Op hthalmology Exam [facility] Start: 1950 Medicare Annual Well ness Visit Medicare Annual Wellness Visit [facility] Start: 1950 Screening for malign ant neoplasm of colon [facility] Start: 1950 Tobacco Counseling Tobacco Counselin g [facility] Start: 1950 Urine screening for protein Urine Microalbumin [facility] End: 04-29-2024 Pulmonary function test Complete PFT w/ BD (Spirometry (Flow Volume Loop) pre/post short acting bronchodilator w/ DLCO (diffusion study) and Lung Volume) Pulmonary function test Complete PFT w/ BD (Spirometry (Flow Volume Loop) pre/post short acting bronchodilator w/ DLCO (diffusion study) and Lung Volume) PFT Routine Calcified granuloma of lung (CMS-HCC) 1 Occurrences starting 04/29/2023 until 04/29/2024 [employer] Work Phone: Comment on above: 1 Occurrences starti ng 04/29/2023 until 04/29/2024 [facility] c Immunizations Immunization Date Immunization Notes Care Provider Ronny naylor 05-16-2022 influenza virus vaccine, unspecified formulation Jah Sharpe MD Work Phone: [facility] 04-10-2021 Moderna COVID-19 Vaccine 100 MCG/0.5ML Intramuscular Suspension Mily Albertok Work Phone: [facility] 250 DO Work Phone: 05-09-2020 Lico COVID-19 Vaccine 0.5 ML Intramuscular Suspension Bruce Elias DO Work Phone: [facility] 02-07-2020 influenza, high dose seasonal, preservative-free Bruce Elias DO Work Phone: [facility] 600 DO Work Phone: 02-07-2020 zoster vaccine recombinant Bruce [facility] DO [facility]: [facility] Work Phone: 02-07-2020 influenza virus vaccine, unspecified formulation Neurology Provider [facility] 02-07-2020 zoster vaccine, unspecified formulation Corrie Goldstein [facility] 03-02-2019 influenza, seasonal, injectable Bruce Elias DO Work Phone: [facility] Work Phone: 02-14-2019 influenza, high dose seasonal, preservative-free Bruce Elias DO Work Phone: [facility] DO Work Phone: 06-09-2018 tetanus toxoid, redu clif diphtheria toxoid, and acellular pertussis vaccine, adsorbed Bruce Elias DO Work Phone: [facility] DO Work Phone: 03-02-2018 pneumococcal polysaccharide vaccine, 23 valent Bruce Elias DO Work Phone: [facility] 600 DO Work Phone: 12-02-2017 influenza, high dose seasonal, preservative-free Bruce Elias DO Work Phone: [facility] DO Work Phone: 02-25-2017 influenza, high dose seasonal, preservative-free Bruce Elias DO Work Phone: [facility] DO Work Phone: 02-17-2017 pneumococcal polysaccharide vaccine, 23 valent Bruce Elias DO Work Phone: [facility] DO Work Phone: 11-06-2015 influenza, injectabl e, quadrivalent, contains preservative Bruce Elias DO Work Phone: [facility] DO Work Phone: 11-06-2015 pneumococcal conjuga te vaccine, 13 valent Bruce Elias DO Work Phone: [facility] DO Work Phone: 12-15-2013 influenza, seasonal, injectable Bruce Elias DO Work Phone: [facility] DO Work Phone: 12-21-2012 influenza, seasonal, injectable Bruce Elias DO Work Phone: [facility] DO Work Phone: 12-16-2006 pneumococcal polysaccharide vaccine, 23 valent Bruce Elias DO Work Phone: [facility] DO Work Phone: 11-18-2006 pneumococcal polysaccharide vaccine, 23 valent Bruce Elias DO Work Phone: [facility] DO Work Phone: Payers Date Payer Category Payer Medicaid [id number] 2023 Medicaid MEDICAID [facility] EDICAID [id number] 2023-Present [phone] [address] [place] [address] [id number] 2023 Medicaid [id number] 2018 Medicare [id number] 1959 Medicare [id number] 1950 Unknown [id number] 1950 Unknown [id number] 1950 Unknown [id number] 1950 Unknown [id number] 1950 Unknown [id number] 1950 Unknown [id number] 1950 Unknown [id number] Unknown Social History Date Type Detail Facility Start: 10-14-2018 End: 05-08-2020 No alcohol use No alcohol use [facility] Comment on above: 1 TEA DAILY; 1/2 PPD; Start: 10-14-2018 End: 05-27-2022 Tobacco smoking status NHIS Smokes tobacco daily [facility] History of tobacco use Cigarette Smoker [facility] Start: 10-14-2018 End: 05-27-2022 Tobacco use and exposure Smokeless tobacco non-user [facility] Start: 04-21-2019 End: 05-08-2020 Tobacco use panel [facility] National Score (1-10 0), lower number is lower risk Not on file [facility] Start: 1950 [facility] Assigned At [facility] Start: 05-14-2022 Gender identity Identifies as female gender (finding) [facility] Start: 12-09-2022 Sexual orientation Heterosexual (fin ding) [facility] Start: 01-18-2023 End: 03-06-2023 Alcohol intake Ex-drinker (finding) [facility] Start: 1950 Sex Assigned At Not on file P [facility] Start: 12-26-2022 Tobacco smoking stat us NHIS Ex-smoker [facility] History of tobacco use Current smoker [facility] Medical Equipment Procedure Code Equipment Code Equipment Origin al Text Equipment Identifier Dates Inject 1 each un chano the skin in the morning and 1 each in the evening and 1 each before bedtime. [id number] Start: 07-22-2022 Goals Date Patient Goal Desired Activity /State Personal health goal Comment on above: Formatting of this n ote might be different from the original. Evaluation of progress towards goal: In progress: [place] Clinical Notes 12-08-2022 to 04-29-2023 Telephone Encounter - Yeni Pfeiffer - 04/29/2023 4:05 PM ESTTelephone Encounter - Yeni Pfeiffer - 04/29/2023 4:05 PM Nydia Gee MD - 03/06/2023 10:15 AM Jah Hui MD - 12/16/2022 1:06 PM EDT Note Date & Type Note Facility 04-29-2023 Miscellaneous Notes Apt ok per RA PT daughter (Alex) would rather not schedule a PFT at this time for her mother documented in this encounter [facility] 04-29-2023 Telephone encounter Note Apt ok per RA PT daughter (Alex) would rather not schedule a PFT at this time for her mother [facility] 03-25-2023 Note HNO ID: [id number] Author: KIRSTI MARTINEZ RT(R) Service: Radiology Author Type: Technologist [...] IV DATA: Not applicable SIGNED BY: RT Mahesh(Jett) March 25, 2023 12:47 PM [facility] 03-25-2023 Note HNO ID: [id number] Author: BRO HAWK MD Service: ? Author Type: Physician Type: Progress Notes Filed: 03/25/2023 11:09 Note Text: Heart , Vascular and Thoracic [facility] DEPARTMENT OF VASCULAR SURGERY OUTPATIENT VISIT DATE [...] stable taaa. N (more content not included)... [facility] 03-25-2023 Note HNO ID: [id number] Author: SEPIDEH TOVAR RN Service: Nursing Author [...] DATE: March 25, 2023 TIME: 9:59 AM [facility] 03-25-2023 Note HNO ID: [id number] Author: FRANK COLEMAN RT(R) Service: Radiology Author [...] RT Monica(R) March 25, 2023 10:19 AM [facility] 03-06-2023 History of Presen t illness Narrative Lucila Tineo Date of visit: 03/06/2023 Date of : 1950 Age: 73 y.o. Patient Active Problem List Diagnosis Bilateral carotid artery stenosis Thoracic aortic [place] without rupture [place] PAD (peripheral artery disease) [place] Claudication [place] Lumbar radiculopathy, chronic Fall, initial encounter 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 ([facility] Uncontrolled type 2 diabetes mellitus with hyperglycemia ([facility] HLD (hyperlipidemia) History of stroke COPD (chronic obstructive pulmonary disease) [place] ASCVD (arteriosclerotic cardiovascular disease) High anion gap metabolic acidosis Left middle cerebral artery aneurysm JEYSON (acute kidney injury) ([facility] Elevated troponin Essential hypertension Fecal impaction ([facility] Stercoral colitis Paroxysmal atrial fibrillation ([facility] Allergies Allergen Reactions Penicillins Hives and [...] but then during a subsequent hospitalization in November, she was noted to have paroxysms of atrial fibrillation with RVR. She would cerebral aneurysms that were known and followed conservatively by [facility]. She has been started on Eliquis. She [...] aneurysm that is followed by vascular in [place]. She has not been back to [place] in some time. A repeat CTA of the abdomen and pelvis that was not a dedicated CTA study was done here in [place] and reported 4.9 cm aneurysm. I do not see the last assessment in [place] but there is a reading from 2020 42 mm. I am not sure whether getting the measurement of 4.9 cm on the study here. There is a lot of artifact and I see measurements that may be 44-45 mm but not clearly 49. Past Medical History: Diagnosis Date JEYSON (acute kidney injury) ([facility] 01/16/2023 Cancer [place] Chronic pain disorder Descending aortic aneurysm [place] Diabetes mellitus type 2, controlled ([facility] Emphysema of lung [place] Former smoker Hypertension Low back pain NSTEMI, initial episode of care [place] PAD (peripheral artery disease) [place] 11/19/2020 Skin cancer Spinal stenosis of lumbar region with neurogenic claudication Stroke [place] Uncontrolled type 2 diabetes mellitus with hyperglycemia ([facility] 01/08/2021 No data recorded No data recorded No data recorded Past Surgical History: Procedure Laterality Date APPENDECTOMY CARPAL TUNNEL RELEASE CYST REMOVAL HYSTERECTOMY INJECTION BLOCK EPIDURAL CAUDAL STEROID N/A 05/09/2022 Performed by Brcue Mcgregor MD at [facility] SKIN CANCER EXCISION TONSILLECTOMY Family [...] 1. Essential hypertension 2. Paroxysmal atrial fibrillation ([facility]) 1. New right parietal lobe CVA with History of CVA 09/2022, large right hemispheric ischemic stroke with M2 vessel cut off, diagnosed in [place], [place] 2. Primary hypertension 3. Hyperlipidemia 4. Type 2 diabetes , DKA 5. Elevation. Non-STEMI 2020 with catheterization revealing thrombotic/chronic occlusion of the RCA with attempted stent at the time. 5. ASCVD with NSTEMI 2020; C 2020 with thrombotic/chronic occlusion of the RCA and attempted stent 7. Aneurysmal dilatation of descending thoracic aorta measuring up to 4.9 cm in width by vascular in [place], unclear if 4.9 cm as an accurate measurement and was not as enlarged on prior study in [place]. 9. Ascending aortic enlargement/aneurysm 10. 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 I am not certain that the descending thoracic aorta is truly 4.9 cm but if this is the case, this is a rapid progression compared to previous and likely merits intervention at this point. I think she will likely need a dedicated study. I think [place] will prefer that they get a CTA there for planning. I only see the aorta closer to 4.5 cm I would nonetheless want her to make sure she meet with vascular. TODAYS ORDERS No orders of the defined types were placed in this encounter. FOLLOW UP Return in about 4 months (around 07/05/2023). PCP: MARILYN HEARD Referring Physician: MARILYN Heard [id number], [address] [address] documented in this encounter [facility] 03-05-2023 Miscellaneous Notes Left message for patient to remind them to bring their most current medication list with them to their appointment. documented in this encounter [facility] 03-05-2023 Telephone encounter Note Left message for patient to remind them to bring their most current medication list with them to their appointment. [facility] 01-02-2023 Miscellaneous Notes Voice mail left for daughter to discuss plan of care for follow up of cerebral aneurysm as discussed with Dr Sharpe at appointment. Imaging in 6 months versus cerebral angiogram. Requested daughter to either call this office or send a My Chart message with preference documented in this encounter [facility] 12-16-2022 Note HNO ID: [id number] Author: Jah Sharpe MD Service: ? Author Type: Physician Type: Progress Notes Filed: 12/16/2022 6:24 PM Note Text: [facility] Virtual Visit Lucila Tineo [facility]#: [id number] Date of Service: 12/16/2022 Primary Care Provider: Mily Andrade, CHELITA [address] [place] [address] The patient was referred by Osei Roe [...] brain aneurysm. The patient was residing in [place], and was found down on October 29, [...] stroke work-up. The patient then returned to [place], and she is still at a nursing [...] Discontinue saline lo (more content not included)... [facility] 12-16-2022 History of Presen t illness Narrative [facility] Virtual Visit Lucila Tineo [facility]#: [id number] Date of Service: 12/16/2022 Primary Care Provider: Mily Andrade, PHYSICIAN'S AIDE [address] [facility] [address] The patient was referred by Osei Roe [...] brain aneurysm. The patient was residing in [place], and was found down on October 29, [...] stroke work-up. The patient then returned to [place], and she is still at a nursing [...] Disease w/o Stroke Event: Unruptured Aneurysm Modified [place] Score: Score: 4 NIH Stroke Scale: LOC: [...] OSEI ROE [address] [facility] [address] [facility] [place] [address] [place] [address] documented in this encounter [facility] 12-08-2022 Miscellaneous Notes Images from the original note were not included. OSH imaging/records received from [facility]: December 08, 2022 -10.3.23 Dr. Roe Progress Notes scanned to chart. -Medical Hx & Imaging Reports available in Care Everywhere. Received confirmation email from [facility] that imaging hs been uploaded--per dropping off disc to imaging library to upload as I wasn't able to + kept getting error per below. Images from the original note were not included. OSH imaging/records received from [facility]: December 04, 2022 -10.3.23 Dr. Roe Progress Notes scanned to chart. PENDING: Imaging -Medical Hx & Imaging Reports Walked discs over to imaging library + gave to Adry to upload MAGDALENE. Successfully sent [employer] & [employer] overnight label via [employer]~ Tracking#[id number] December 05, 2022 10:30 AM 07 [employer] Priority Overnight $14.14 From: Theresa mabry Last change on 12/04/2022 12:16:46 pm Sent on 12/04/2022 12:16:33 pm Completed ENDOVASCULAR INTAKE Patient name: Lucila Tineo Confirm Diagnosis/RFV (Reason for Visit): Aneurysm Is this a self-referral? no, who is the referring provider : Osei Roe [employer] [facility], [place]/His direct office number if any questions: [phone] Is this a direct referral? yes neurosurgeon Have you been recommended for surgery or procedure? Yes. coiling Are you seeking a second opinion? Yes. Do you have a MRI/MRA/CT/Ultrasound for this diagnosis? Yes. Type of imaging CT's, name/address of facility where completed [facility]. [Only has reports in folder, no images] [...] if any questions. documented in this encounter [facility] Evaluation note Diagnosis Unruptured cerebral aneurysm- Primary Cerebral aneurysm, nonruptured Ischemic stroke (HCC) Hypertension, unspecified type Hyperlipidemia, unspecified hyperlipidemia type Smoking Tobacco use disorder [facility] Diagnosis Essential hypertension- Primary Unspecified essential hypertension Paroxysmal atrial fibrillation ([facility]-HCC) Atrial fibrillation [facility] Diagnosis Calcified granuloma of lung (CMS-HCC)- Primary [facility] N[facility]* The [...] medication regimen. She denies medication side effects. 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 [facility] Barrel [facility] due [facility] minimally elevated troponin. [...] section and content) DATE CREATED AUTHOR 08/20/2020 [facility] DATE CREATED AUTHOR AUTHOR'S ORGANIZ ATION 03/11/2021 [facility] DATE CREATED AUTHOR AUTHOR'S ORGANIZ ATION 12/11/2021 [facility] DATE CREATED AUTHOR AUTHOR'S ORGANIZ ATION 12/11/2021 [facility] DATE CREATED AUTHOR AUTHOR'S ORGANIZ ATION 04/26/2022 [facility] dical Specialist DATE CREATED AUTHOR AUTHOR'S ORGANIZ ATION 03/02/2023 [facility] DATE CREATED AUTHOR AUTHOR'S ORGANIZ ATION 03/08/2023 [facility] DATE CREATED AUTHOR AUTHOR'S ORGANIZ ATION 03/28/2023 [facility] DATE CREATED AUTHOR AUTHOR'S ORGANIZ ATION 04/28/2023 [facility] dical Specialists [employer] Comments (unrecognize d section and content) In the event this informatio n is protected by the Federal Confidentiality of Alcohol and Drug Abuse Patient Records regulations: The Federal rules restrict any use of the information to criminally investigate or prosecute any alcohol or drug abuse patient.[facility] the event this information is protected by the Federal Confidentiality of Alcohol and Drug Abuse Patient Records regulations: The Federal rules restrict any use of the information to criminally investigate or prosecute any alcohol or drug abuse patient.[facility] the event this information is protected by the Federal Confidentiality of Alcohol and Drug Abuse Patient Records regulations: The Federal rules restrict any use of the information to criminally investigate or prosecute any alcohol or drug abuse patient.[facility] the event this information is protected by the Federal Confidentiality of Alcohol and Drug Abuse Patient Records regulations: The Federal rules restrict any use of the information to criminally investigate or prosecute any alcohol or drug abuse patient.[facility] the event this information is protected by the Federal Confidentiality of Alcohol and Drug Abuse Patient Records regulations: The Federal rules restrict any use of the information to criminally investigate or prosecute any alcohol or drug abuse patient.[facility] the event this information is protected by the Federal Confidentiality of Alcohol and Drug Abuse Patient Records regulations: The Federal rules restrict any use of the information to criminally investigate or prosecute any alcohol or drug abuse patient.[facility] Reason for Visit (unrecogniz ed section and content) Reason Comments Future Appointment New Patient, [place], Any Reason Comments Unruptured Aneurysm Reason Comments Dermatology Specialist - Other Reason Comments Follow-up EST PT IP LARRY FALL 3 0 DAY EM POSSIBLE AFIB SCHED W/ALBA PT DAUGHTER ALEX AND PT KNOWS SHE IS OOP Care Teams (unrecognized sec tion and content) Keyboard Teacher Relationship Specialty Start Date End Date Mily Andrade CNP [address] [place] [address] PCP - General Family Medicine 09/29/18 Osei Roe [address] [place] [address] Referring Neurology 12/04/22 Keyboard Teacher Relationship Specialty Start Date End Date Mily Andrade CNP [address] [place] [address] PCP - General Family Medicine 09/29/18 Osei Roe [address] [place] [address] Referring Neurology 12/04/22 Keyboard Teacher Relationship Specialty Start Date End Date Mily Andrade CNP [address] [facility] [place] [address] PCP - General Family Medicine 09/29/18 Osei Roe [address] [place] [address] Referring Neurology 12/04/22 Keyboard Teacher Relationship Specialty Start Date End Date Mily Andrade CNP [address] [facility] [place] [address] PCP - General Family Medicine 09/29/18 Osei Roe [address] [place] [address] Referring Neurology 12/04/22 Keyboard Teacher Relationship Specialty Start Date End Date Mily Andrade APRN-CNP [address] [place] [address] PCP - General Internal Medicine 08/06/20 Keyboard Teacher Relationship Specialty Start Date End Date Mily Andrade APRN-CNP [address] [facility] [place] [address] PCP - General Internal Medicine 08/06/20 Keyboard Teacher Relationship Specialty Start Date End Date Chyna Portillo DO [address] [place] [address] PCP - [employer] 03/02/20 Corrie Coley MD [address] [facility] [place] [address] PCP - General Family Medicine 03/26/23 Keyboard Teacher Relationship Specialty Start Date End Date Mily Andrade APRN-CNP [address] [place] [address] PCP - General Internal Medicine 08/06/20 Keyboard Teacher Relationship Specialty Start Date End Date Mily Andrade APRN-CHELITA [address] [place] [address] PCP - General Internal Medicine 08/06/20 FOR [...] BE BASED ON THE PRIMARY CLINICAL RECORDS. [facility] [employer] provides no warranty or guarantee of the accuracy or completeness of information in this document.
[2023-06-05 08:31] LABS: BUN Creatinine Ratio 26.6; Calcium 9.8 mg/dL (8.5-10.1); Carbon Dioxide 28.6 mmol/L (21.0-32.0); Chloride 107 mmol/L (98-107); Estimated GFR (African America >60 (>=60); Estimated GFR (Non-African Ame >60 (>=60); Glucose 53 mg/dL (74-106); Potassium 3.6 mmol/L (3.5-5.1); Sodium 143 mmol/L (136-145)
== END 2023-06-05 02:48 | disposition home or self-care (01) ==
LOC: LAB 02:47
PROVIDERS: PCP Family Medicine; Visit Provider Family Medicine
DX: M62.838 Other muscle spasm (principal)
CPT/HCPCS: 36415; 80048

== ENCOUNTER 2023-09-29 08:02 | Emergency (ER) | payer MEDICARE, MEDICAID, SELFPAY ==
[2023-09-29] VITALS (19 sets, daily range): BP systolic 123–169; BP diastolic 69–112; PULSE 82–92; TEMP 36.8; O2SAT 96–99; BMI 24.0
--- NOTE | 2023-09-29 08:06 | XR_ITS ---
The [address] [address] Patient Name: KATELYN ZAMORA MRN: [id number] date: 1950 Sex: F Assigned Patient Location: ER Current Patient Location: ER Accession/Order Number: [id number] Exam Date: 09/29/2023 08:33 Report Date: 09/29/2023 08:54 At the request of: HEMALATHA KERR Procedure: XR chest 1V EXAMINATION: XR chest 1V HISTORY: weak COMPARISON: 04/12/2010 TECHNIQUE: AP portable FINDINGS: LUNGS: No significant pulmonary parenchymal abnormalities. VASCULATURE: No increased pulmonary vasculature. PLEURA: No pneumothorax, effusion, or pleural thickening. CARDIAC: No cardiomegaly or cardiac silhouette abnormality. MEDIASTINUM: Widened mediastinum. Aortic atherosclerosis BONES: No fracture or visible bone lesion. OTHER: Negative. XR/XR chest 1V IMPRESSION: Widened mediastinum. Follow-up PA and lateral chest x-ray recommended Electronically authenticated by: CODI WYLIE Date: 09/29/2023 08:54
--- NOTE | 2023-09-29 08:06 | ECG_ITS ---
The [facility] Test Date: 2023-09-29 Pat Name: KATELYN ZAMORA Department: Room: - Gender: Female Support Group Manager: : 1950 Requested By: MAIOCL PATINO Order Number: [id number] Reading MD: MAKAYLA NAILS Measurements Intervals [place] Rate: 85 P: 26 TN: 162 QRS: 27 QRSD: 80 T: 44 QT: 366 QTc: 408 Interpretive Statements 1100 Sinus rhythm 1570 with occasional ventricular premature complexes 9140 abnormal rhythm ECG No previous ECG available for comparison Electronically Signed On 09-29-2023 23:06:28 EDT by MAKAYLA NAILS
--- NOTE | 2023-09-29 08:06 | CT_ITS ---
The [place] [id number] Patient Name: KATELYN ZAMORA MRN: [id number] date: 1950 Sex: F Assigned Patient Location: ER Current Patient Location: ER Accession/Order Number: [id number] Exam Date: 09/29/2023 08:33 Report Date: 09/29/2023 09:02 At the request of: HEMALATHA KERR Procedure: CT head/brain wo con EXAMINATION: CT head/brain wo con, 09/29/2023 8:33 AM EDT HISTORY: Fall COMPARISON: None. TECHNIQUE: CT scan of the head was performed without IV contrast. CT dose reduction technique was used, including Automated Exposure Control. FINDINGS: BRAIN: 8.5 cm area of encephalomalacia with loss of rodriguez-white differentiation in the right occipital lobe with ex vacuo dilation of the occipital horn. 4.5 cm area of encephalomalacia in the left parietal lobe. 1.5 cm calcified mass in the left middle cranial fossa, axial image #13, this extends from the middle cerebral artery and I suspect an aneurysm. No acute intracranial hemorrhage CSF SPACES: No subarachnoid hemorrhage or mass SKULL: No fracture, mass, or other significant visible lesion. SINUSES: No significant mucosal thickening or fluid on the limited views. ORBITS: No appreciable abnormality on the limited views. OTHER: Negative CT/CT head/brain wo con IMPRESSION: No acute intracranial hemorrhage 1.5 cm calcified mass left middle cranial fossa, arterial aneurysm arising off the middle cerebral artery is favored Large areas of encephalomalacia right occipital and left parietal regions, I favor remote injuries Electronically authenticated by: CODI WYLIE Date: 09/29/2023 09:02
--- OUTSIDE RECORDS SUMMARY | 2023-09-29 08:19 | XMS_ITS | CCD ---
Author Organization [facility] Care Team Providers Care Computer Teacher Name Role Phone Unavailable Unavailable Mily Andrade Unavailable SALAS KIRKPATRICK Attending Unavailable SALAS KIRKPATRICK Admitting Unavailable Lupe, Ms. Mily Beckwith Primary Care Rosemary vailable Curt, Dr. Barrera Attending Unavailable Curt, Dr. Barrera Referring Unavailable Dr. Bruce Elias Referring Unavailable CHELITA Sandhu Attending Unavailable Luep, Jaylen Mily Amena Primary Care Rosemary vailable Mily Andrade CNP Primary Care Provider Osei Roe Unavailable Lupe LAUNDRY PRESS OPERATOR-Mily MERLOS Primary Care Pro vider ANGE GEE Attending Unavailable MILY ANDRADE Referring Unavailab le ANDRADE, MILY Ashley Primary Care Unavailab Chyna Romero DO Unavailable Corrie Coley MD Primary Care Provider MILY ANDRADE Attending Unavailab le ANDRADEMILY Referring Unavailab le ANDRADE, MILY Ashley Primary Care Unavailab le ANDRADEMILY Referring Unavailab le ANDRADE, MILY Ashley Primary Care Unavailab JENIFFER Rawls Attending Unavailable LUPE, MILY Ashley Referring Unavailab le ANDRADE, MILY Ashley Primary Care Unavailab le Andrade Mily MERLOS Primary Care Provider Osei Roe MD Unavailable [facility] Unavailable BRO HAWK Attending Unavailable [facility] Unavailable BRO HAWK Referring Unavailable [facility] Unavailable DO CHRISTINE BRUCE Attending Unavailable [facility] Unavailable OSEI ROE Referring Unavailable JAH SHARPE Attending Unavailable JEFFERY GORDON Referring Unavailable ANNEMARIEJAH Attending Unavailable [facility] Unavailable TUSCARORA, [facility] Unavailable FAGERT, VAN Referring Unavailable Allergies Allergy Classification Reported Allergen(s) Allergy Type Date of Onset Reaction(s) Facility (13 sources) Penicillins; Translations: [Penicillins] Allergy to drug (finding) 9 [facility] (17 sources) Penicillins Drug Allergy 9 Hives, Other (See Comments) [facility] (1 source) Penicillins Drug Allergy 9 Hives [facility] Work Phone: Medications Current Medications Medication Drug Class(es) Dates Sig (Normalized) Sig (Original) amLODIPine 5 mg oral tablet (12 sources) Dihydropyridine Calcium Channel Shantel Start: 12-03-2022 take 1 tablet by mouth in the morning amLODIPine (Norvasc) 5 MG tablet Take 5 mg by mouth in the morning. 0 12/03/2022 Active apixaban 5 mg oral tablet (11 sources) Factor Xa Inhibitor Start: 01-21-2023 take [...] DAILY. Quantity: 90 Refills: 3 Ordered: 04-Jul-2021 Yung Sandhu APRN-HOG CONFINEMENT SYSTEM MANAGERSalas Start : 04-Jul-2021 Active take 1 tablet by rita th once daily aspirin, enteric coated (ASPIRIN, ENTERIC COATED) 81 mg EC tablet Take 81 mg by mouth once daily. 0 Active Comment on above: Take 81 [...] the evening. Take with meals. 0 Active clopidogrel 75 mg oral tablet (16 sources) P2Y12 Platelet Inhibitor take 1 tablet by mouth once daily clopidogrel (PLAVIX) 75 mg tablet Take 75 mg by mouth once daily. 0 Active Plavix 75 MG Ora l Tablet Quantity: 0 Refills: 0 Ordered: 04-Dec-2020 DO Active Comment on above: Take 75 mg by mouth once daily. docusate sodium 50 mg / sennosides, senior care 8.6 mg oral tablet (5 sources) Start: 12-02-2022 take 1 tablet by mouth in the morning senna-docusate (Lydia-Colace) 8.6-50 MG tablet Take 1 tablet by mouth in the morning and 1 tablet in the evening. 0 12/02/2022 Active insulin aspart (NovoLOG) 100 UNIT/ML injection (1 source) insulin aspart (NovoLOG) 100 UNIT/ML injection INJECT 1U:5GM CARBS BREAKFAST AND LUNCH; 1U:15GM CARBS DINNER PLUS CORRECTION 1U:100 OVER 250. MAX 40 UNITS/DAY 0 Active insulin aspart, human (20 sources) Insulin Analog insulin aspart U -100 (NovoLOG) 100 unit/mL (3 mL) insulin pen Inject under the skin. 0 Active insulin aspart ( NOVOLOG FLEXPEN U-100 INSULIN SUBCUTANEOUS) Inject subcutaneously. Per sliding scale 0 Active NovoLOG SOLN INJ ECT SUBCUTANEOUSLY DIRECTED. Quantity: 0 Refills: 0 Ordered: 04-Dec-2020 DO Active Comment on above: Inject subcutaneousl y. Per sliding scale 3 ml insulin degludec 100 unt/ml pen injector (20 sources) Insulin Analog inject 5 [IU] by subcutaneous injection once daily at bedtime insulin degludec (TRESIBA FLEXTOUCH U-100) 100 unit/mL (3 mL) injection Inject 5 Units subcutaneously daily at bedtime. 0 Active Tresiba FlexTouc h 100 UNIT/ML injection 1 (one) time each day at the same time. 0 Active Tresiba 100 UNIT /ML Subcutaneous [...] under the skin nightly. 0 Active insulin glargine,hum.rec.anlog (INSULIN GLARGINE SUBCUTANEOUS) (7 sources) inject 15 [IU] by subcutaneous injection once daily insulin glargine,hum.rec.anlog (INSULIN GLARGINE SUBCUTANEOUS) Inject 15 Units subcutaneously once daily. SLIDING SCALE 0 Active 3 ml insulin lispro 100 unt/ml pen injector (12 sources) Insulin Analog Star t: 01-01 insulin lispro (HumaLOG) 100 unit/mL insulin pen [...] evening. Inject with meals. 0 12/02/2022 Active inject 4 [IU] by sub cutaneous injection three times daily before mealtime insulin lispro (HUMALOG KWIKPEN) 100 unit/mL Inject 4 Units subcutaneously three times a day before meals. SLIDING SCALE 0 Active insulin lispro (HumaLOG) 100 unit/mL [...] and nightly. 15 mL 12 01/21/2023 Active iv contrast (will be provide d with radiology test) (20 sources) Start: 09-19-2020 iv contrast (w ill be provided with [...] in the CT contrast administration guidelines link. levothyroxine sodium 0.125 mg oral tablet (20 sources) l-Thyroxine Start: 023 take 1 tablet by mouth before mealtime levothyroxine (Synthroid, Levoxyl) 125 MCG tablet Indications: Hypothyroidism (acquired) (CMS/HCC) Take 1 tablet (125 mcg) by mouth in the morning. Take before meals. 90 tablet 0 07/23/2022 Active take 1 tablet by mouth once michelle y levothyroxine (SYNTHROID) 150 mcg tablet Take 150 mcg by mouth once daily. 0 Active Comment on above: Take 150 mcg by mout h once daily. losartan potassium 50 mg oral tablet (20 sources) Angiotensin 2 Receptor Shantel Start: 09-09-2022 [...] 0 Active ondansetron 4 mg oral tablet (11 sources) Serotonin-3 Receptor Antagonist take 1 tablet by mouth every eight hours as needed ondansetron (ZOFRAN) 4 mg tablet Take 4 mg by mouth every 8 hours as needed for nausea/vomiting. 0 Active POTASSIUM-99 ORAL (7 sources) take 40 mEq by mouth once daily POTASSIUM-99 ORAL Take 40 mEq by mouth once daily. 0 Active pregabalin 25 mg oral capsule (13 sources) Start: End: take 1 capsule by mouth in the morning pregabalin (Lyrica) 25 MG capsule Indications: Polyneuropathy Take 1 capsule (25 mg) by mouth in the morning and 1 capsule (25 mg) before bedtime. 60 capsule 3 01/31/2023 05/31/2023 Active rOPINIRole 0.5 mg oral tablet (6 sources) Nonergot Dopamine Agonist Start: take 1 tablet by mouth once daily at bedtime rOPINIRole (REQUIP) 0.5 mg tablet Take 0.5 mg by mouth daily at bedtime. 0 07/02/2023 Active rosuvastatin calcium 40 mg oral tablet (1 source) HMG-CoA Reductase Inhibitor Start: take 1 tablet by mouth at bedtime rosuvastatin (Crestor) 40 MG tablet Take 40 mg by mouth at bedtime. 0 12/02/2022 Active sennosides, senior care 8.6 mg oral tablet (11 sources) Start: 023 take 1 tablet by mouth twice daily as needed for constipation senna (SENOKOT) 8.6 mg tablet Take 1 tablet (8.6 mg total) by mouth 2 (two) times a day as needed for constipation. 30 each 0 01/21/2023 Active Sennosides (ARACELI A) 8.6 mg cap Take 1 capsule by mouth as needed. 0 Active traMADol hydrochloride 50 mg oral tablet (10 sources) Opioid Agonist Start: 01-31-2023 take 1 tablet by mouth every six hours as needed for pain traMADoL (ULTRAM) 50 mg tablet Take 1 tablet (50 mg total) by mouth every 6 (six) hours as needed for pain. 0 01/31/2023 Active 24 hr venlafaxine 37.5 mg extended release oral capsule (12 sources) Serotonin and Norepinephrine Reuptake Inhibitor Start: 12-03-2022 take 1 capsule by mouth every twenty-four hours at mealtime venlafaxine XR (Effexor XR) 37.5 MG 24 hr capsule Take 37.5 mg by mouth in the morning. Take with meals. 0 12/03/2022 Active take 1 capsule by mouth once gen ly venlafaxine ER (EFFEXOR XR) 37.5 mg 24 hr capsule Take 37.5 mg by mouth once daily. 0 Active Completed/Discontinued Medications Medication Drug Class(es) [...] 0 Refills: 0 Ordered: 05-Feb-2021 DO Active 24 hr metoprolol succinate 100 mg extended release oral tablet (20 sources) beta-Adrenergic Shantel Start: 09-03-2021 take 1 tablet by mouth once daily Metoprolol Succinate ER 100 MG Oral Tablet Extended Release 24 Hour TAKE 1 TABLET EVERY DAY Quantity: 90 Refills: 3 Ordered: 05-Sep-2021 Bruce Elias DO Start : 03-Sep-2021 Active Comment on above: Take 100 mg by mouth once daily. nitroglycerin 0.4 mg sublingual tablet (20 sources) Nitrate Vasodilator Start: 01-07-2022 Nitroglycerin 0.4 [address]ual Tablet Sublingual PL[address] [...] Date Documented Date Episodic/Chronic Acute cerebrovascular disease (3 sources) Ischemic stroke; Translations: [Cerebral infarction, unspecified] Onset: 12-26-2022 12-16-2022 Chronic Aortic; peripheral; and visceral artery aneurysms (18 sources) Aneurysm of descending aorta; Translations: [Aortic aneurysm of unspecified site without mention of rupture] Onset: 11-19-2020 Resolved: 01-16-2023 11-19-2020 Chronic Cardiac dysrhythmias (6 sources) Paroxysmal atrial fibrillation; Translations: [Paroxysmal atrial [...] [Coronary atherosclerosis of unspecified type of vessel, [place] or graft] Onset: 09-05-2020 Chronic Diabetes mellitus with complications (16 sources) Diabetic ketoacidosis without coma; Translations: [Type 2 diabetes mellitus with ketoacidosis without coma] Onset: 01-08-2021 01-16-2023 Chronic Diabetes mellitus without complication (11 sources) Diabetes mellitus; Translations: [Diabetes mellitus without mention of complication, type II or unspecified type, not stated as uncontrolled] Onset: 03-11-2021 Chronic Disorders of lipid metabolism (17 sources) Hyperlipidemia; Translations: [Other and unspecified hyperlipidemia] Onset: 12-01-2014 12-16-2022 Chronic Essential hypertension (19 sources) Hypertensive disorder; Translations: [Unspecified essential hypertension] Onset: 03-11-2021 12-16-2022 Chronic Occlusion or stenosis of precerebral arteries (4 sources) Bilateral stenosis of carotid arteries; Translations: [Occlusion and stenosis of bilateral carotid arteries] Onset: 11-19-2020 11-19-2020 Chronic Other aftercare (1 source) Drug therapy finding; Translations: [Encounter for therapeutic drug level monitoring] 07-13-2023 Episodic Other and ill-defined cerebrovascular disease (4 sources) Cerebral arterial aneurysm; Translations: [Cerebral aneurysm, nonruptured] 12-16-2022 Chronic Other and ill-defined cerebrovascular disease (4 sources) Aneurysm of middle cerebral artery; Translations: [Cerebral aneurysm, nonruptured] Onset: 01-16-2023 01-16-2023 Chronic Other and ill-defined cerebrovascular disease (1 source) Cerebral aneurysm, nonruptured; Translations: [Nonruptured cerebral aneurysm] Onset: 07-07-2023 Chronic Other lower respiratory disease (1 source) [...] 29.0-29.9, adult] Episodic Peripheral and visceral atherosclerosis (19 sources) Peripheral vascular disease; Translations: [Peripheral vascular disease, unspecified] Onset: 11-19-2020 11-19-2020 Chronic Substance-related disorders (11 sources) Smokes tobacco daily; Translations: [Tobacco use disorder] 12-16-2022 Chronic Comment on above: 1/2 PPD; Unclassified (1 source) New Patient Onset: 06-25-2023 Unclassified (1 source) Pulmonary Nodule Onset: 06-25-2023 Unclassified (1 source) Thoracic aortic aneurysm without [...] [Chest pain, unspecified type] Onset: 03-25-2023 Episodic Other circulatory disease (4 sources) History [...] of blood chemistry] Onset: 01-16-2023 01-16-2023 Episodic Residual codes; unclassified (1 source) Pain, unspecified; Translations: [Pain, unspecified] Onset: 03-01-2023 Episodic Screening and history of mental health and substance abuse codes (4 sources) Ex-smoker; Translations: [Personal history of nicotine dependence] Onset: 01-16-2023 Resolved: 01-16-2023 01-16-2023 Episodic Spondylosis; intervertebral disc disorders; other back problems (8 sources) Lumbar radiculopathy; Translations: [Radiculopathy, lumbar region] Onset: 11-27-2021 Resolved: 01-16-2023 11-27-2021 Episodic Results Test Name Value Interpretation Reference Range Facility [facility] LUC[facility] ([id number]) 1950 F Date Time Provider Department 07/16/23 JAH SHARPE [id number] During your visit today, we recorded the following information about you: Jenny Haines 07/16/2023 12:26 PM Signed Rec'd lab report from [facility] imported into [employer]. Lane Vogt, SHREYA 07/17/2023 8:06 AM Signed Labs for upcoming cerebral angiogram Allergies As of Date: 07/16/2023 Noted Allergy Reaction PENICILLINS 10/11/2018 4 - Hives Date Reviewed: 07/07/2023 Reviewed by: Latoya Greene MA - Fully Assessed Reason for Visit: Received Outside Medical Records [3004] Cmt: Rec'd lab report from [facility] imported into [employer]. Prescriptions as of 07/17/2023 - rOPINIRole (REQUIP) 0.5 mg tablet Take 0.5 mg by mouth daily at bedtime. - amLODIPine (NORVASC) 5 mg tablet Take 5 mg by mouth once daily. - apixaban (ELIQUIS) 5 mg tab(s) Take 5 mg by mouth two times a day. - pregabalin (LYRICA) 25 mg capsule Take 25 mg by mouth two times a day. - ondansetron (ZOFRAN) 4 mg tablet Take 4 mg by mouth every 8 hours as needed for nausea/vomiting. - POTASSIUM-99 ORAL Take 40 mEq by mouth once daily. - Sennosides (SENNA) 8.6 mg cap Take 1 capsule by mouth as needed. - traMADol (ULTRAM) 50 mg tablet Take 50 mg by mouth every 6 hours as needed for pain. - venlafaxine ER (EFFEXOR XR) 37.5 mg 24 hr capsule Take 37.5 mg by mouth once daily. - insulin glargine,hum.rec.anlog (INSULIN GLARGINE SUBCUTANEOUS) Inject 15 Units subcutaneously once daily. SLIDING SCALE - insulin lispro (HUMALOG KWIKPEN) 100 unit/mL Inject 4 Units subcutaneously three times a day before meals. SLIDING SCALE - atorvastatin (LIPITOR) 40 mg tablet Take [...] administration guidelines link. Problem List As Of Date 07/16/2023 Noted Resolved Uncontrolled type 2 diabetes mellitus with hype*03/25/2023 Claudication (HCC) [I73.9] 03/25/2023 Encounter Status:Closed by JENNY HAINES on 07/16/23 [facility] Fernando 07-14-2023 [facility] Telephone (NECVS8) LUCILA TINEO ([id number]) 1950 F Date Time Provider Department 07/14/23 JAH SHARPE [id number] During your visit today, we recorded the following information about you: Jenny Haines 07/14/2023 3:34 PM Signed Rec'd patient PT/INR results imported into [employer]. Allergies As of Date: 07/14/2023 Noted Allergy Reaction PENICILLINS 10/11/2018 4 - Hives Date Reviewed: 07/07/2023 Reviewed by: Latoya Greene MA - Fully Assessed Reason for Visit: Results [95] Cmt: PT-INR Results Prescriptions as of 07/16/2023 - rOPINIRole (REQUIP) 0.5 mg tablet Take 0.5 mg by mouth daily at bedtime. - amLODIPine (NORVASC) 5 mg tablet Take 5 mg by mouth once daily. - apixaban (ELIQUIS) 5 mg tab(s) Take 5 mg by mouth two times a day. - pregabalin (LYRICA) 25 mg capsule Take 25 mg by mouth two times a day. - ondansetron (ZOFRAN) 4 mg tablet Take 4 mg by mouth every 8 hours as needed for nausea/vomiting. - POTASSIUM-99 ORAL Take 40 mEq by mouth once daily. - Sennosides (SENNA) 8.6 mg cap Take 1 capsule by mouth as needed. - traMADol (ULTRAM) 50 mg tablet Take 50 mg by mouth every 6 hours as needed for pain. - venlafaxine ER (EFFEXOR XR) 37.5 mg 24 hr capsule Take 37.5 mg by mouth once daily. - insulin glargine,hum.rec.anlog (INSULIN GLARGINE SUBCUTANEOUS) Inject 15 Units subcutaneously once daily. SLIDING SCALE - insulin lispro (HUMALOG KWIKPEN) 100 unit/mL Inject 4 Units subcutaneously three times a day before meals. SLIDING SCALE - atorvastatin (LIPITOR) 40 mg tablet Take [...] administration guidelines link. Problem List As Of Date 07/14/2023 Noted Resolved Uncontrolled type 2 diabetes mellitus with hype*03/25/2023 Claudication (HCC) [I73.9] 03/25/2023 Encounter Status:Closed by JENNY HAINES on 07/16/23 [facility] CNOVon 07-07-2023 CNOV Office Visit (NSEVMN ) LUCILA TINEO ([id number]) 1950 F Date Time Provider Department 07/07/23 10:40 AM JAH SHARPE NSEN During your visit today, we recorded the following information about you: Pulse Blood pressure Weight Height 85/minute 123/52 60.8 kg 1.626 m Jah Sharpe MD 07/07/2023 5:09 PM [facility] Established Outpatient Visit Lucila Tineo [facility]#: [id number] Date of Service: 07/07/2023 Primary Care Provider: Mily Andrade, CHELITA [address] [facility] [address] FOLLOW UP VISIT Chief complaint: Follow up for incidental unruptured brain aneurysm History of present illness: Ms. Veloz is a 73-year-old female with vascular risk factors, who presents for follow-up evaluation of an incidentally discovered unruptured brain aneurysm. The patient was residing in [place], and was found down on October 29, 2022. She had left-sided weakness and slurred speech. She was diagnosed with a right hemispheric acute stroke and admitted to the hospital for work-up. Reportedly atrial fibrillation was found as a possible stroke etiology, as well as atherosclerotic disease. The patient was eventually started on anticoagulation, in addition to dual antiplatelet therapy. 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 The patient then returned to [place], and she is still at a nursing facility, but regained some function on the left side of her body, and she is now able to walk with a walker and assistance. She still has significant visual field deficits, and residual left-sided weakness and numbness. Previously she was independent without significant neurologic deficits. She used to be a heavy smoker until the time of her stroke in September 2022. She had smoked for about 30 years. She also has hypertension and diabetes. According to the daughter, the patient remains on triple therapy with aspirin, Plavix and apixaban. She denies significant headaches. There is no family history of brain aneurysm, but her son had abdominal aortic aneurysm. Hypertension NA Coronary Artery Disease NA Diabetes Y Obesity NA Dyslipidemia NA Tobacco Use (Please Update Smoking History) Y Stroke NA Intracranial Aneurysm NA Past Medical History: ACTIVE PROBLEM LIST Uncontrolled Type 2 Diabetes Mellitus With Hyperglycemia (Hcc) Claudication (Hcc) Thoracic aortic aneurysm Unruptured brain aneurysm Hypertension Hypertension lipidemia Diabetes Ischemic stroke PAST SURGICAL HISTORY Procedure Laterality Date APPENDECTOMY HYSTERECTOMY Allergies: Penicillins Medications: Current Outpatient Medications Medication Sig rOPINIRole (REQUIP) 0.5 mg tablet Take 0.5 mg by mouth daily at bedtime. amLODIPine (NORVASC) 5 mg tablet Take 5 [...] Take 81 mg by mouth once daily. losartan (COZAAR) 25 mg tablet Take 50 [...] line and de-access according to line specific nu (more content not included)... Normal [facility] CREATININE, BLOOD (POC)on Creatinine [Mass/Vol] 0.70 mg/dL 0.7 - 1.4 mg/dL [facility] eGFR (POCT) mL/min/1.73 m2 [facility] Location:Radiology [facility], [address] [place] [address], [address] [place] [address] POINT OF CARE [facility] CTA HEAD WO/W IVCONon 2023 CTA HEAD WO/W IVCON * * *Final Report* * * DATE OF EXAM: Jul 07 2023 9:44AM [facility] 0023 - CTA HEAD WO/W IVCON / PROCEDURE REASON: Nonruptured cerebral aneurysm * * * * Physician Interpretation * * * * CTA HEAD WO/W IVCON HISTORY: Nonruptured cerebral aneurysm TECHNIQUE: CT head without contrast and CTA head. 3-D post-processed images were created, reviewed and archived. MQ: [id number] Contrast: IV administration of 80 cc Omnipaque 350 Dose-Length Product (DLP): 1361 mGy*cm CT Dose Reduction Employed: No dose reduction techniques were required COMPARISON: MRA of the brain dated 01/16/2023 RESULT: BRAIN: Acute change: No evidence of an acute intracranial process. Hemorrhage: No evidence of acute intracranial hemorrhage. Mass Lesion / Mass Effect: No evidence of an intracranial mass, extra-axial fluid collection, or significant localized mass effect. Chronic change: Scattered patchy foci of low attenuation are present within supratentorial white matter which is a nonspecific finding but likely represents mild microvascular ischemia. Encephalomalacia within the right MCA territory including frontal operculum, posterior aspect of the superior and middle frontal gyrus, precentral and postcentral gyrus, posterior aspect of the right insular cortex, and superior parietal lobule. Encephalomalacia within the left RETAIL STOCKER territory including the occipital lobe. Hypoattenuation within the left posterior cerebellar hemisphere consistent with chronic infarct. Parenchyma: Mild generalized volume loss. Ventricles: Ex vacuo dilation of the right lateral ventricle trigone. Ventricles are otherwise normal caliber. Other: The calvarium, skull base, imaged paranasal sinuses, mastoids, orbits and extracranial soft tissues are unremarkable. 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 The overall size of the aneurysm measures approximately 1.4 x 1.2 cm. There is interval increase in the size of the lumen previously measured 0.5 x 0.4 cm (AP X TS) on CT head dated 10/29/2022 similarly showing increase in size when compared to MRA of the brain dated 01/16/2023. Otherwise, distal bilateral ICAs, proximal bilateral ACAs and proximal right MCAs are patent without aneurysm or dissection. A1 segments are codominant. Posterior circulation: Distal vertebral arteries, basilar trunk and recycling attendant are patent without aneurysm or dissection. Opacified dural venous sinuses and major deep and superficial draining veins are patent. Animal Maintenance Supervisor (topogram) images: No additional findings. IMPRESSION: Brain: No acute intracranial infarction or hemorrhage. Encephalomalacia within the right MCA and left RETAIL STOCKER territories. CTA brain: Left MCA M2 segment aneurysm with interval increase in the lumen size as detailed. No large vessel occlusion or high-grade arterial stenosis intracranially. Arterial blood flow was measured to detect acute large vessel occlusion by computer aided detection software: Not Performed. Concordance between software and imaging review: Concordant. Hull Builder: МАРИНА Transcribe Date/Time: Jul 07 2023 9:47A Dictated by : DURAN FRANCO MD This examination was interpreted and the report reviewed and electronically signed by: JOSE CRUZ CARBAJAL MD on Jul 07 2023 11:52AM EST [id number] Normal [facility] CTA Head vessels WO and W co ntrast Marisol 07-07-2023 IMPRESSION: Brain: No acute intracranial infarction or hemorrhage. Encephalomalacia within the right MCA and left RETAIL STOCKER territories. CTA brain: Left MCA M2 segment aneurysm with interval increase in the lumen size as detailed. No large vessel occlusion or high-grade arterial stenosis intracranially. Arterial blood flow was measured to detect acute large vessel occlusion by computer aided detection software: Not Performed. Concordance between software and imaging review: Concordant. Hull Builder: [facility] Transcribe Date/Time: Jul 07 2023 9:47A Dictated by : DURAN FRANCO MD This examination was interpreted and the report reviewed and electronically signed by: JOSE CRUZ CARBAJAL MD on Jul 07 2023 11:52AM EST DIVISION OF RADIOLOGY * * *Final Report* * * DATE OF EXAM: Jul 07 2023 9:44AM [facility] 0023 - CTA HEAD WO/W IVCON / PROCEDURE REASON: Nonruptured cerebral aneurysm * * * * Physician Interpretation * * * * CTA HEAD WO/W IVCON HISTORY: Nonruptured cerebral aneurysm TECHNIQUE: CT head without contrast and CTA head. 3-D post-processed images were created, reviewed and archived. MQ: CTABNPlus_3 Contrast: IV administration of 80 cc Omnipaque 350 Dose-Length Product (DLP): 1361 mGy*cm CT Dose Reduction Employed: No dose reduction techniques were required COMPARISON: MRA of the brain dated 01/16/2023 RESULT: BRAIN: Acute change: No evidence of an acute intracranial process. Hemorrhage: No evidence of acute intracranial hemorrhage. Mass Lesion / Mass Effect: No evidence of an intracranial mass, extra-axial fluid collection, or significant localized mass effect. Chronic change: Scattered patchy foci of low attenuation are present within supratentorial white matter which is a nonspecific finding but likely represents mild microvascular ischemia. Encephalomalacia within the right MCA territory including frontal operculum, posterior aspect of the superior and middle frontal gyrus, precentral and postcentral gyrus, posterior aspect of the right insular cortex, and superior parietal lobule. Encephalomalacia within the left RETAIL STOCKER territory including the occipital lobe. Hypoattenuation within the left posterior cerebellar hemisphere consistent with chronic infarct. Parenchyma: Mild generalized volume loss. Ventricles: Ex vacuo dilation of the right lateral ventricle trigone. Ventricles are otherwise normal caliber. Other: The calvarium, skull base, imaged paranasal sinuses, mastoids, orbits and extracranial soft tissues are unremarkable. 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 The overall size of the aneurysm measures approximately 1.4 x 1.2 cm. There is interval increase in the size of the lumen previously measured 0.5 x 0.4 cm (AP X TS) on CT head dated 10/29/2022 similarly showing increase in size when compared to MRA of the brain dated 01/16/2023. Otherwise, distal bilateral ICAs, proximal bilateral ACAs and proximal right MCAs are patent without aneurysm or dissection. A1 segments are codominant. Posterior circulation: Distal vertebral arteries, basilar trunk and recycling attendant are patent without aneurysm or dissection. Opacified dural venous sinuses and major deep and superficial draining veins are patent. Animal Maintenance Supervisor (topogram) images: No additional findings. DIVISION OF RADIOLOGY Provider, [facility] - 07/07/2023 * * *Final Report* * * DATE OF EXAM: Jul 07 2023 9:44AM [facility] 0023 - CTA HEAD WO/W IVCON / PROCEDURE REASON: Nonruptured cerebral aneurysm * * * * Physician Interpretation * * * * CTA HEAD WO/W IVCON HISTORY: Nonruptured cerebral aneurysm TECHNIQUE: CT head without contrast and CTA head. 3-D post-processed images were created, reviewed and archived. MQ: CTABNPlus_3 Contrast: IV administration of 80 cc Omnipaque 350 Dose-Length Product (DLP): 1361 mGy*cm CT Dose Reduction Employed: No dose reduction techniques were required COMPARISON: MRA of the brain dated 01/16/2023 RESULT: BRAIN: Acute change: No evidence of an acute intracranial process. Hemorrhage: No evidence of acute intracranial hemorrhage. Mass Lesion / Mass Effect: No evidence of an intracranial mass, extra-axial fluid collection, or significant localized mass effect. Chronic change: Scattered patchy foci of low attenuation are present within supratentorial white matter which is a nonspecific finding but likely represents mild microvascular ischemia. Encephalomalacia within the right MCA territory including frontal operculum, posterior aspect of the superior and middle frontal gyrus, precentral and postcentral gyrus, posterior aspect of the right insular cortex, and superior parietal lobule. Encephalomalacia within the left RETAIL STOCKER territory including the occipital lobe. Hypoattenuation within the left posterior cerebellar hemisphere consistent with chronic infarct. Parenchyma: Mild generalized volume loss. Ventricles: Ex vacuo dilation of the right lateral ventricle trigone. Ventricles are otherwise normal caliber. Other: The calvarium, skull base, imaged paranasal sinuses, mastoids, orbits and extracranial soft tissues are unremarkable. 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 The overall size of the aneurysm measures approximately 1.4 x 1.2 cm. There is interval increase in the size of the lumen previously measured 0.5 x 0.4 cm (AP X TS) on CT head dated 10/29/2022 similarly showing increase in size when compared to MRA of the brain dated 01/16/2023. Otherwise, distal bilateral ICAs, proximal bilateral ACAs and proximal right MCAs are patent without aneurysm or dissection. A1 segments are codominant. Posterior circulation: Distal vertebral arteries, basilar trunk and recycling attendant are patent without aneurysm or dissection. Opacified dural venous sinuses and major deep and superficial draining veins are patent. Animal Maintenance Supervisor (topogram) images: No additional findings. IMPRESSION IMPRESSION: Brain: No acute intracranial infarction or hemorrhage. Encephalomalacia within the right MCA and left RETAIL STOCKER territories. CTA brain: Left MCA M2 segment aneurysm with interval increase in the lumen size as detailed. No large vessel occlusion or high-grade arterial stenosis intracranially. Arterial blood flow was measured to detect acute large vessel occlusion by computer aided detection software: Not Performed. Concordance between software and imaging review: Concordant. Hull Builder: МАРИНА Transcribe Date/Time: Jul 07 2023 9:47A Dictated by : DURAN FRANCO MD This examination was interpreted and the report reviewed and electronically signed by: JOSE CRUZ CARBAJAL MD on Jul 07 2023 11:52AM EST [facility] Radiology Study observation (narrative) [facility] CTA Head vessels WO and W co ntrast IVOrdered By: Ccf Provider on 07-07-2023 [facility] No Panel Informationon 04-14 Interpretation and review of laboratory results Abnormal [facility] TB UA (CLEAN/CATCH) GRADUATION COACH/ERICK RO IF IND.on 04-14-2023 BILIRUBIN URINE Negative NEGATIVE [facility] BLOOD URINE Negative NEGATIVE [facility] Clarity (U) CLEAR CLEAR [facility] Color (U) LT. YELLOW YELLOW [facility] GLUCOSE URINE UA >=1000 Abnormal NEGATIVE mg/dL [facility] Ketones Ql (U) Negative NEGATIVE mg/dL [facility] Leukocyte esterase Test strip Ql (U) SMALL Abnormal NEGATIVE [facility] NITRITE URINE Negative NEGATIVE [facility] pH (U) 6.0 [pH] 5.0 - 9.0 [facility] PROTEIN URINE Negative NEG/TRACE mg/dL [facility] Healthcare SPECIFIC GRAVITY URINE 1.010 1.005 - 1.025 [facility] URINE MICROSCOPIC INDICATED YES [facility] UROBILINOGEN URINE 0.2 EU/dL 0.2 - 1.0 EU/dL [facility] TB URINE MICROSCOPIC ONLYon 04-14-2023 BACTERIA URINE SMALL Abnormal NONE SEEN #/HPF [facility] CAST SEEN? NONE SEEN NONE SEEN #/LPF [facility] CRYSTALS SEEN? None Seen None Seen #/HPF [facility] MUCUS URINE TRACE Abnormal NONE SEEN [facility] SQUAMOUS EPITHELIAL CELL URINE FEW Abnormal NONE/RARE #/LPF [facility] TBH RBC 0-2 [facility] TB WBC 10-20 Abnormal NONE SEEN #/HPF [facility] URINE CULTURE INDICATED YES [facility] YEAST URINE SEEN Abnormal NONE SEEN [facility] Comment on above: 4+ BUDDING CBC panel Auto (Bld)on 03-25 Erythrocyte distribution width (RBC) [Ratio] 14.9 % Normal 11.5-15.0 [facility] Comment on above: Order Comment: Speci men Type: BLOOD SPECIMENOrdering Facility: [facility] Address: [address] [place] [address] Performed By: #### 5 8410-2 ####[facility] LABCLIA [id number] [place] [address] [place] Hematocrit (Bld) [Volume fraction] 37.0 % Normal 36.0-46.0 [facility] Comment on above: Order Comment: Speci men Type: BLOOD SPECIMENOrdering Facility: [facility] Address: [address] [place] [address] Performed By: #### 5 8410-2 ####[facility] LABIA [id number] [place] [address] [place] Hemoglobin (Bld) [Mass/Vol] 12.1 g/dL Normal 11.5-15.5 [facility] Comment on above: Order Comment: Speci men Type: BLOOD SPECIMENOrdering Facility: [facility] Address: [address] [place] [address] Performed By: #### 5 8410-2 ####[facility] LABIA [id number] [place] [address] [place] MCH (RBC) [Entitic mass] 29.4 pg Normal 26.0-34.0 [facility] Comment on above: Order Comment: Speci men Type: BLOOD SPECIMENOrdering Facility: [facility] Address: [address] [place] [address] Performed By: #### 5 8410-2 ####[facility] LABIA [id number] [place] [address] [place] MCHC (RBC) [Mass/Vol] 32.7 g/dL Normal 30.5-36.0 [facility] Comment on above: Order Comment: Speci men Type: BLOOD SPECIMENOrdering Facility: [facility] Address: [address] [place] [address] Performed By: #### 5 8410-2 ####[facility] LABIA [id number] [place] [address] [place] MCV (RBC) [Entitic vol] 90.0 fL Normal 80.0-100.0 [facility] Comment on above: Order Comment: Speci men Type: BLOOD SPECIMENOrdering Facility: [facility] Address: [address] [place] [address] Performed By: #### 5 8410-2 ####[facility] LABCLIA [id number] [place] [address] [place] Nucleated RBC (Bld) [#/Vol] 10*3/uL Normal <0.01 [facility] Comment on above: Order Comment: Speci men Type: BLOOD SPECIMENOrdering Facility: [facility] Address: [address] [place] [address] Performed By: #### 5 8410-2 ####[facility] LABIA [id number] [place] [address] [place] Platelet mean volume (Bld) [Entitic vol] 12.2 fL Normal 9.0-12.7 [facility] Comment on above: Order Comment: Speci men Type: BLOOD SPECIMENOrdering Facility: [facility] Address: [address] [place] [address] Performed By: #### 5 8410-2 ####[facility] LABIA [id number] [place] [address] [place] Platelets (Bld) [#/Vol] 157 10*3/uL Normal 150-400 [facility] Comment on above: Order Comment: Speci men Type: BLOOD SPECIMENOrdering Facility: [facility] Address: [address] [place] [address] Performed By: #### 5 8410-2 ####[facility] LABIA [id number] [place] [address] [place] RBC (Bld) [#/Vol] 4.11 10*6/uL Normal 3.90-5.20 [facility] Comment on above: Order Comment: Speci men Type: BLOOD SPECIMENOrdering Facility: [facility] Address: [address] [id number] Performed By: #### 5 8410-2 ####[facility] LABIA [id number] [place] [id number] [place] WBC (Bld) [#/Vol] 3.70 10*3/uL Normal 3.70-11.00 [facility] Comment on above: Order Comment: Speci men Type: BLOOD SPECIMENOrdering Facility: [facility] Address: [address] [place] [address] Performed By: #### 5 8410-2 ####[facility] LABIA [id number] [place] [id number] [place] CNOVon 03-25-2023 CNOV Office Visit (VASSMN ) LUCILA TINEO ([id number]) 1950 F Date Time Provider Department 03/25/23 9:15 AM BRO HAWK During your visit today, we recorded the following information about you: Pulse Blood pressure 104/minute 140/84 Bro Hawk MD 03/25/2023 11:09 AM [facility] [place] DEPARTMENT OF VASCULAR SURGERY OUTPATIENT VISIT DATE [...] Reactions Peni (more content not included)... Normal [facility] CT BRAIN WO IVCONon 03-25-19 CT BRAIN WO IVCON * * *Final Report* * * DATE OF EXAM: Mar 25 2023 12:09PM [facility] 0504 - CT BRAIN WO IVCON [...] administration for the CTA chest/abdomen/pelvis, degrading assessment. Animal Maintenance Supervisor (topogram) images: No additional findings. Post-operative change: [...] in the right posterior MCA and left RETAIL STOCKER territories with associated encephalomalacic changes, and interval development of high attenuation along the cortical margins on the right and few areas of high attenuation in the left RETAIL STOCKER territory. Findings most likely reflect gyriform enhancement [...] temporal lobe and stable adjacent vasogenic edema. Hull Builder: [facility] Transcribe Date/Time: Mar 25 2023 12:10P Dictated by : KRISTINE SANDHU MD This examination was interpreted and the report reviewed and electronically signed by: KASSANDRA SAWYER MD on Mar 25 2023 12:53PM EST [id number] Normal [facility] CTA ABD/PELV WO/W IVCONon CTA ABD/PELV WO/W IVCON * * *Final Report* * * DATE OF EXAM: Mar 25 2023 10:28AM [facility] [place] - CTA ABD/PELV WO/W IVCON / [...] AORTIC DIMENSIONS: AORTIC ROOT: 3.3 cm measured [id number] mid ASCENDING THORACIC AORTA: 3.7 cm mid [...] progression since 2020. No significant changes otherwise. Hull Builder: PSCDavid Transcribe Date/Time: Mar 25 2023 12:00P Dictated by : SOHAM ALEMAN MD This examination was interpreted and the report reviewed and electronically signed by: SOHAM ALEMAN MD on Mar 25 2023 1:16PM EST [id number] Normal [facility] CTA CHEST (NONGATED) WO/W IV CONon 03-25-2023 CTA CHEST (NONGATED) WO/W IVCON * * *Final Report* * * DATE OF EXAM: Mar 25 2023 10:28AM [facility] [place]124 - CTA CHEST (NONGATED) WO/W IVCON [...] AORTIC DIMENSIONS: AORTIC ROOT: 3.3 cm measured [id number] mid ASCENDING THORACIC AORTA: 3.7 cm mid [...] progression since 2020. No significant changes otherwise. Hull Builder: [facility]ON[facility] Transcribe Date/Time: Mar 25 2023 12:00P Dictated by : SOHAM ALEMAN MD This examination was interpreted and the report reviewed and electronically signed by: SOHAM ALEMAN MD on Mar 25 2023 1:16PM EST [id number] Normal [facility] Comprehensive metabolic 2000 panelon 03-25-2023 Albumin [Mass/Vol] 3.5 g/dL Low 3.9-4.9 [facility] Comment on above: Order Comment: Speci men Type: BLOOD SPECIMENOrdering Facility: [facility] Address: [address] [place] [address] Performed By: #### 2 4323-8 ####[facility] LABCLIA [id number] [place] [address] [id number] [place] ALP [Catalytic activity/Vol] 93 U/L Normal 34-123 [facility] Comment on above: Order Comment: Speci men Type: BLOOD SPECIMENOrdering Facility: [facility] Address: [address] [place] [address] Result Comment: Resu lts may be falsely decreased due to interference from hemolysis. Suggest reorder as clinically indicated. Performed By: #### 2 4323-8 ####[facility] LABCLIA [id number] [place] [address] [place] ALT [Catalytic activity/Vol] 21 U/L Normal 7-38 [facility] Comment on above: Order Comment: Speci men Type: BLOOD SPECIMENOrdering Facility: [facility] Address: [address] [place] [address] Result Comment: Resu lts may be falsely increased due to interference from hemolysis. Suggest reorder as clinically indicated. Performed By: #### 2 4323-8 ####[facility] LABCLIA [id number] [place] [address] [place] Anion gap [Moles/Vol] 11 mmol/L Normal 9-18 [facility] Comment on above: Order Comment: Speci men Type: BLOOD SPECIMENOrdering Facility: [facility] Address: [address] [place] [address] Performed By: #### 2 4323-8 ####[facility] LABCLIA [id number] [place] [address] [place] AST [Catalytic activity/Vol] 49 U/L High 13-35 [facility] Comment on above: Order Comment: Speci men Type: BLOOD SPECIMENOrdering Facility: [facility] Address: [address] [place] [address] Result Comment: Resu lts may be falsely increased due to interference from hemolysis. Suggest reorder as clinically indicated. Performed By: #### 2 4323-8 ####[facility] LABCLIA [id number] [place] [address] [place] Bilirubin [Mass/Vol] 0.4 mg/dL Normal 0.2-1.[address] [facility] Comment on above: Order Comment: Speci men Type: BLOOD SPECIMENOrdering Facility: [facility] Address: [address] [place] [address] Performed By: #### 2 4323-8 ####[facility] LABCLIA [id number] [place] [address] [place] Calcium [Mass/Vol] 9.1 mg/dL Normal 8.5-10.2 [facility] Comment on above: Order Comment: Speci men Type: BLOOD SPECIMENOrdering Facility: [facility] Address: [address] [place] [address] Performed By: #### 2 4323-8 ####[facility] LABCLIA [id number] [place] [address] [place] Chloride [Moles/Vol] 101 mmol/L Normal 97-[address] [facility] Comment on above: Order Comment: Speci men Type: BLOOD SPECIMENOrdering Facility: [facility] Address: [address] [place] [address] Performed By: #### 2 4323-8 ####[facility] LABCLIA [id number] [place] [address] [place] CO2 [Moles/Vol] 19 mmol/L Low 22-30 [facility] Comment on above: Order Comment: Speci men Type: BLOOD SPECIMENOrdering Facility: [facility] Address: [address] [place] [address] Performed By: #### 2 4323-8 ####[facility] LABCLIA [id number] [place] [address] [place] Creatinine [Mass/Vol] 0.60 mg/dL Normal 0.58-0.96 [facility] Comment on above: Order Comment: Speci men Type: BLOOD SPECIMENOrdering Facility: [facility] Address: [address] [place] [address] Performed By: #### 2 4323-8 ####[facility] LABCLIA [id number] [place] [address] [place] Creatinine and Glomerular filtration rate.predicted panel (S/P/Bld) 95 mL/min/1.73m??? Normal >=60 [facility] Comment on above: Order Comment: Letty sanchez Type: BLOOD SPECIMENOrdering Facility: [facility] Address: [address] [place] [address] Result Comment: Janice mated Glomerular Filtration Rate [...] actual GFR. Performed By: #### 2 4323-8 ####[facility] LABIA [id number] [place] [address] [place] Glucose [Mass/Vol] 435 mg/dL High 74-99 [facility] Comment on above: Order Comment: Letty sanchez Type: BLOOD SPECIMENOrdering Facility: [facility] Address: [address] [place] [address] Result Comment: The [place] [employer] Association (ADA) provides guidance for cutoff [...] Standards of Medical Care in Diabetes 2016, [place] [employer]. Diabetes Care. 2016.39(Suppl 1). Performed By: #### 2 4323-8 ####[facility] [id number] [place] [address] [place] Potassium [Moles/Vol] Normal [facility] Comment on above: Order Comment: Letty sanchez Type: BLOOD SPECIMENOrdering Facility: [facility] Address: [address] [place] [address] Result Comment: Unab le to assay due to interference from hemolysis. Suggest reorder as clinically indicated. Performed By: #### 2 4323-8 ####[facility] LABCLIA [id number] [place] [address] [place] Protein [Mass/Vol] 6.7 g/dL Normal 6.3-8.0 [facility] Comment on above: Order Comment: Speci men Type: BLOOD SPECIMENOrdering Facility: [facility] Address: [address] [place] [address] Result Comment: Resu lts may be falsely increased due to interference from hemolysis. Suggest reorder as clinically indicated. Performed By: #### 2 4323-8 ####[facility] LABIA [id number] [place] [address] [place] Sodium [Moles/Vol] 131 mmol/L Low 136-144 [facility] Comment on above: Order Comment: Speci men Type: BLOOD SPECIMENOrdering Facility: [facility] Address: [address] [place] [address] Performed By: #### 2 4323-8 ####[facility] LABIA [id number] [place] [address] [place] Urea nitrogen [Mass/Vol] 16 mg/dL Normal 7-21 [facility] Comment on above: Order Comment: Speci men Type: BLOOD SPECIMENOrdering Facility: [facility] Address: [address] [place] [address] Performed By: #### 2 4323-8 ####[facility] LABIA [id number] [place] [address] [place] ECG COMPLETEon 03-25-2023 ECG COMPLETE Ventricular Rate : 8 9 BPM Atrial Rate : 89 BPM P-R Interval : 146 ms QRS Duration : 72 ms Q-T Interval : 370 ms QTC Calculation(Bazett) : 450 ms Calculated P [place] : 21 degrees Calculated R [place] : -6 degrees Calculated T [place] : 3 degrees NORMAL SINUS RHYTHM . BORDERLINE ECG Confirmed by DO CHRISTINE BRUCE ([id number]), film editor YONY CHRIS ([id number]) on 03/27/2023 9:35:29 AM NAME : LUCILA TINEO PID : [id number] : 1950 Gender : Female Race : ORD : [id number] Procedure Date : Mar 25 2023 11:38:10 Edit Date : Mar 27 2023 09:35:30 Diagnosis: NORMAL SINUS RHYTHM . BORDERLINE ECG Confirmed by DO CHRISTINE BRUCE ([id number]), film editor YONY CHRIS ([id number]) on 03/27/2023 9:35:29 AM Test Reason : Chest Pain Location : 2 : EDNS E018 Overread By : DO CHRISTINE BRUCE Edited By : YONY CHRIS Referred By : , Acquired by : [facility] ED NOTEon 03-25-2023 ED NOTE HNO ID: [id number] Author: SEPIDEH DE DIOS Medic Service: Emergency Medicine Author Type: Catalogue Maker and Plastic Top Assembler Type: ED Notes Filed: 03/25/2023 16:57 Note Text: 3rd trop sent via straight stick in left hand [facility] ED NOTE HNO ID: [id number] Author: ESTHELA RAMAN RN Service: ? Author Type: Registered Nurse Type: ED Notes Filed: 03/25/2023 11:23 Note Text: Bed: E18-11 Expected date: Expected time: Means of arrival: Comments: HUGO [facility] ED PROV NOTEon 03-25-2023 ED PROV NOTE HNO ID: [id number] Author: EDWARD CHRISTINE DO Service: Emergency Medicine [...] w/irratic blood glucose(s) SHIRA (renal artery stenosis) ([facility]) 2 arteries partially occluded Thoracoabdominal aortic aneurysm (TAAA) ([facility]) PAST SURGICAL HISTORY Procedure Laterality Date [...] pain, unspecified type Coronary artery disease involving [place] coronary artery of [place] heart without angina pectoris Uncontrolled type 2 [...] emergency depar (more content not included)... Normal [facility] HIGH SENSITIVITY TROPONIN T (INITIAL)on 03-25-2023 Troponin T.cardiac High sensitivity method [Mass/Vol] 18 ng/L High <12 [facility] Comment on above: Order Comment: Speci men Type: BLOOD SPECIMENOrdering Facility: [facility] Address: [address] [place] [address] Result Comment: When assessing risk for acute [...] 30 day MACE. Performed By: #### L [id number] ####[facility] LABCLIA [id number] [address] HIGH SENSITIVITY TROPONIN T (SECOND)on 03-25-2023 Troponin T.cardiac High sensitivity method [Mass/Vol] 17 ng/L High <12 [facility] Comment on above: Order Comment: Letty sancehz Type: BLOOD SPECIMENOrdering Facility: [facility] Address: [address] [place] [address] Result Comment: When assessing risk for acute [...] 30 day MACE. Performed By: #### L [id number] ####[facility] LABCLIA [id number] [address] HIGH SENSITIVITY TROPONIN T (THIRD) 3 HRS AFTER INITIALon 03-25-2023 Troponin T.cardiac High sensitivity method [Mass/Vol] 18 ng/L High <12 [facility] Comment on above: Order Comment: Letty sanchez Type: BLOOD SPECIMENOrdering Facility: [facility] Address: [address] [place] [address] Result Comment: When assessing risk for acute [...] 30 day MACE. Performed By: #### L [id number] ####[facility] LABCLIA [id number] [id number], [place] [address] [place] XR CHEST 2V [...] since 09/20/20 most concerning for neoplasm Emphysema Hull Builder[facility] Transcribe Date/Time: Mar 25 2023 12:49P Dictated by : KHLOE GAYLE MD This examination was interpreted and the report reviewed and electronically signed by: KHLOE GAYLE MD on Mar 25 2023 1:04PM EST [id number] Normal [facility] CNPNon 03-13-2023 CNPN Telephone (PODCCP) LUCILA TINEO ([id number]) 1950 F Date Time Provider Department 03/13/23 DARRYL SAUER PODMANJEET During your visit today, we recorded the following information about you: Darryl Sauer, RN 03/13/2023 3:39 PM Signed Reason for call: Mila called and she would like to schedule an appointment for Lucila with Dr Hawk. Looking for a Thursday apt. Contact Name: Mila Kramer Home and cell number: [phone] Diagnosis: TAAA. Rapid new growth Kind Regards, [...] Encounter Status:Closed by DARRYL SAUER on 03/13/23 [facility] LUCIL[facility]INE[facility] ([id number]) 1950 F Date Time Provider Department 01/02/23 [facility] During your visit today, we recorded the following information about you: Lane Vogt, SHREYA 01/02/2023 1:34 PM Signed Voice mail left for daughter to discuss plan of care for follow up of cerebral aneurysm as discussed with Dr Sharpe at appointment. Imaging in 6 months versus cerebral angiogram. Requested daughter to either call this office or send a D square nv Chart message with preference Elisa Lees 01/07/2023 12:30 PM Signed Daughter, Mila Kramer returned call - please call [phone]. Lane Vogt, SHREYA 01/07/2023 12:43 PM Signed Attempted to return call, voice mail left for daughter with office number to return call to this office at her convenience. Jenny Haines 01/07/2023 2:14 PM Signed Please call daughter back at [phone]. Until 4pm. 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 Telephone ([facility]) LUCILA TINEO ([id number]) 1950 F Date Time Provider Department 12/04/22 NEUROLOGY PROVIDER [facility] During your visit today, we recorded the following information about you: Tonja Andre 12/04/2022 12:49 PM Signed ENDOVASCULAR INTAKE Patient name: Lucila Tineo Confirm Diagnosis/RFV (Reason for Visit): Aneurysm Is this a self-referral? no, who is the referring provider : Osei Roe [employer] in [facility], [place]/His direct office number if any questions: [phone] Is this a direct referral? yes neurosurgeon Have you been recommended for surgery or procedure? Yes. coiling Are you seeking a second opinion? Yes. Do you have a MRI/MRA/CT/Ultrasound for this diagnosis? Yes. Type of imaging CT's, name/address of facility where completed [facility]. [Only has reports in folder, no images] [...] 2:22 PM Addendum OSH imaging/records received from [facility]: December 04, [address] Roe Progress Notes scanned to chart. PENDING: -2022 Imaging -Medical Hx AND Imaging Reports Walked discs over to imaging library + gave to Adry to upload MAGDALENE. Successfully sent CARRI AND Fedex overnight label via [employer]~ Tracking#[id number] December 05, 2022 10:30 AM 07 [employer]Ex Priority Overnight? $14.14 From: Theresa Andre Last change on 12/04/2022 12:16:46 pm Sent on 12/04/2022 12:16:33 pm Completed Tonja Andre 12/09/2022 2:25 PM Addendum OSH imaging/records received from [facility]: December 08, [address] -.[address] Roe [...] 100 unit (more content not included)... Normal [facility] SCREENING MAMMOGRAM W/SAULO, BILATERAL*on 04-24-2022 SCREENING [...] VERY IMPORTANT TO YOUR HEALTH. THE CURRENT [place] [employer] GUIDELINES RECOMMENDS ANNUAL MAMMOGRAPHY BEGINNING AT AGE 40 THIS FACILITY USES A REMINDER SYSTEM TO ENSURE ALL PATIENTS RECEIVE REMINDER NOTIFICATIONS AT THE APPROPRIATE TIME BASED ON THE RECOMMENDATIONS OF THIS EXAM. 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 You may also call 2-700-KBEZNOW for free resources and assistance.; Status:Complete - [...] Recorded: 11Dec2021 11:20AM Heart Rate76, L Radial Vpwlpxzs212, LUE, Sitting Pgebjkswe07, LUE, Sitting Height5 ft 4 in Ksegrg368 lb BMI Gjvutjvoiq39.98 kg/m2 BSA Calculated1.79 Tobacco Usea) Yes Patient encouraged to stop using tobacco productsYes PHQ-2 #1. Over the last 2 weeks have you felt down, depressed or hopeless? (If yes, answer PHQ-9 below)No PHQ-2 #2. Over the last 2 weeks have you felt little interest or pleasure in doing things? (If yes, answer PHQ-9 below)No Fa (more content not included)... Normal [facility] Tobacco Screening.on 022 Adult depression screening assessment No [facility] [employer] 250 DO Work Phone: Fall risk assessment b) One or more fall s in the last year [facility] 250 DO Work Phone: Tobacco use status [facility] a) Yes -[facility] 250 DO Work Phone: Tobacco Screening. 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 Fully [...] smoker (305.1) (more content not included)... Normal [facility] Tobacco Screening.on 021 Fall risk assessment a) No falls within the last year [facility] 250 DO Work Phone: Tobacco use status [facility] a) Yes [facility] 250 DO Work Phone: Tobacco Screening. Yes [facility] 250 DO Work Phone: Tobacco Screening.on 021 Fall risk assessment a) No falls within the last year [facility] 600 DO Work Phone: Tobacco use status [facility] a) Yes [facility] 600 DO Work Phone: Tobacco Screening. Yes [facility] 600 DO Work Phone: Comprehensive Metabolic Pane dom 08-08-2020 Albumin [Mass/Vol] 3.1 g/dL Low 3.2-5.5 [facility] Comment on above: Performed By: #### C MP #### [address] Albumin/Globulin [Mass ratio] 0.9 {ratio} Normal [facility] Comment on above: Performed By: #### C MP #### [facility] [address] ALP [Catalytic activity/Vol] 98 U/L High 32-92 [facility] Comment on above: Performed By: #### C MP #### [facility] [address] [place] [id number] [facility] ALT [Catalytic activity/Vol] 17 U/L Normal 10-60 [facility] Comment on above: Performed By: #### C MP #### [facility] [address] [place] [phone] [place] AST [Catalytic activity/Vol] 24 U/L Normal 10-42 [facility] Comment on above: Performed By: #### C MP #### [facility] [address] [place] [id number] [place] Bilirubin [Mass/Vol] 0.6 mg/dL Normal 0.3-1.2 [facility] Comment on above: Performed By: #### C MP #### [address] Calcium [Mass/Vol] 8.8 mg/dL Normal 8.2-10.2 [facility] Comment on above: Performed By: #### C MP #### [address] Chloride [Moles/Vol] 103 mmol/L Normal 95-114 [facility] Comment on above: Performed By: #### C MP #### [address] CO2 [Moles/Vol] 20.4 mmol/L Low 22.0-30.0 [facility] Comment on above: Performed By: #### C MP #### [address] Creatinine [Mass/Vol] 1.06 mg/dL High 0.44-1.03 [facility] Comment on above: Performed By: #### C MP #### [address] Creatinine Clr Calc Pharmacy 49.44 [facility] Comment on above: Result Comment: PERF ORMED BY: [place] [address] PATHOLOGIST STUDENT OUTREACH COORDINATOR DOMINGA SOLIMAN M.D. Performed By: #### C MP #### [address] Estimated GFR ( Grace > 60 [facility] Comment on above: Result Comment: GFR estimated reference range: According to KDOQI guidelines, <60 ml/min/1.73m2 is sufficient to diagnose a patient with chronic kidney disease. Performed By: #### C MP #### [address] Estimated GFR (Non- Am 51 [facility] Comment on above: Performed By: #### C MP #### [address] Globulin (S) [Mass/Vol] 3.3 g/dL [facility] Comment on above: Performed By: #### C MP #### [address] Glucose [Mass/Vol] 282 mg/dL High 70-100 [facility] Comment on above: Result Comment: Erin sampson Glucose Reference Range is dependent on time and content of last meal. Glucose of more than 200 mg/dL in a nonstressed, ambulatory subject supports the diagnosis of Diabetes Mellitus. ADA recommended reference range Performed By: #### C MP #### [facility] [address] Potassium [Moles/Vol] 4.5 mmol/L Normal 3.5-5.1 [facility] Comment on above: Performed By: #### C MP #### [facility] [address] Protein [Mass/Vol] 6.4 g/dL Normal 6.1-7.9 [facility] Comment on above: Performed By: #### C MP #### [facility] [address] Sodium [Moles/Vol] 134 mmol/L Low 136-146 [facility] Comment on above: Performed By: #### C MP #### [facility] [address] Urea nitrogen [Mass/Vol] 29 mg/dL High - [facility] Comment on above: Performed By: #### C MP #### [address] ECG 12 lead ECGon 08-08-2020 ECG 12 lead ECG [facility] [place] [address] [place] [address] Electrocardiograph Report Signed Patient: Lucila Tineo MR#: [id number] : 1950 Acct:[id number] Age/Sex: 70 / F ADM Date: 08/06/20 Loc: Room: [address] [place] [address] Type: ADM IN Attending Dr: Drew Patterson [...] MD 08/08/20 0734 Signed By: 08/08/20 1017 [facility] Glucose Poct Glucometerson 0 08-08-2020 Commemt1 Glu2: Cleaned Meter [facility] Comment on above: Result Comment: PERF ORMED BY: [place] [address] PATHOLOGIST STUDENT OUTREACH COORDINATOR DOMINGA SOLIMAN M.D. Performed By: #### P T, CBC, PTT #### [address] Glucose [Mass/Vol] 354 mg/dL Normal [facility] Comment on above: Result Comment: [facility] Glucose Reference Range is dependent on time and content of last meal. Glucose of more than 200 mg/dL in a nonstressed, ambulatory subject supports the diagnosis of Diabetes Mellitus. Performed By: #### P T, CBC, PTT #### [facility] [address] [place] [address] Commemt1 Glu2: Cleaned Meter [facility] Comment on above: Result Comment: PERF ORMED BY: [place] [address] PATHOLOGIST STUDENT OUTREACH COORDINATOR DOMINGA SOLIMAN M.D. Performed By: #### P T, CBC, PTT #### [facility] [address] [place] [address] Glucose [Mass/Vol] 380 mg/dL Normal [facility] Comment on above: Result Comment: [place] Glucose Reference Range is dependent on time and content of last meal. Glucose of more than 200 mg/dL in a nonstressed, ambulatory subject supports the diagnosis of Diabetes Mellitus. Performed By: #### P T, CBC, PTT #### [address] Glucose [Mass/Vol] 80 mg/dL [facility] Comment on above: Result Comment: [place] Glucose Reference Range is dependent on time and content of last meal. Glucose of more than 200 mg/dL in a nonstressed, ambulatory subject supports the diagnosis of Diabetes Mellitus. PERFORMED BY: [place] [address] PATHOLOGIST STUDENT OUTREACH COORDINATOR DOMINGA SOLIMAN M.D. Performed By: #### P T, CBC, PTT #### [address] Commemt1 [facility] Comment on above: Result Comment: Glu2 : FOLLOW HYPOGLYCEMIC Performed By: #### P T, CBC, PTT #### [address] Commemt2 Cleaned Meter [facility] Comment on above: Performed By: #### P T, CBC, PTT #### [address] Commemt3 WILL NOTIFY DR/RN [facility] Comment on above: Result Comment: PERF ORMED BY: [place] [address] PATHOLOGIST STUDENT OUTREACH COORDINATOR DOMINGA SOLIMAN M.D. Performed By: #### P T, CBC, PTT #### [address] Glucose [Mass/Vol] 42 mg/dL Off scale low [facility] Comment on above: Result Comment: [place] Glucose Reference Range is dependent on time and content of last meal. Glucose of more than 200 mg/dL in a nonstressed, ambulatory subject supports the diagnosis of Diabetes Mellitus. Performed By: #### P T, CBC, PTT #### [address] Troponin I(TnI)on 08-08-2020 Troponin I.cardiac [Mass/Vol] 2.45 ng/mL Off scale high 0-0.02 [facility] Comment on above: Result Comment: [place] Cut off value > or equal to 0.03 ng/mL in conjunction with clinical conditions of myocardial infarction. (www.escardio.org/guidelines) PERFORMED BY: [place] [address] PATHOLOGIST STUDENT OUTREACH COORDINATOR DOMINGA SOLIMAN M.D. Performed By: #### T ROP #### [address] A1C with Estimated Average [facility] 08-07-2020 Glucose [Mass/Vol] 183 mg/dL Normal [facility] Comment on above: Result Comment: PERF ORMED BY: [place] [address] PATHOLOGIST STUDENT OUTREACH COORDINATOR DOMINGA SOLIMAN M.D. Performed By: #### G LULS #### Point of Care testing , HbA1c (Bld) [Mass fraction] 8.0 % High 4.3-5.6 [facility] Comment on above: Result Comment: Incr eased risk for diabetes: 5.7 - 6.4 diabetes: >6.4 glycemic control for adults with diabetes: <7.0 Performed By: #### G LULS #### Point of Care testing , Complete Blood Count Auto Di ffon 08-07-2020 Basophils (Bld) [#/Vol] 0.1 10*3/uL Normal 0.0-0.2 [facility] Comment on above: Result Comment: PERF ORMED BY: [place] [address] PATHOLOGIST STUDENT OUTREACH COORDINATOR DOMINGA SOLIMAN M.D. Performed By: #### G LULS #### Point of Care testing , Basophils/100 WBC (Bld) 1.4 % Normal . [facility] Comment on above: Performed By: #### G LULS #### Point of Care testing , Eosinophils (Bld) [#/Vol] 0.1 10*3/uL Normal 0.0-0.45 [facility] Comment on above: Performed By: #### G SHANEKA #### Point of Care testing , Eosinophils/100 WBC (Bld) 2.6 % Normal . [facility] Comment on above: Performed By: #### G ARVINDLS #### Point of Care testing , Erythrocyte distribution width (RBC) [Ratio] 15.6 % High 11.9-15.3 [facility] Comment on above: Performed By: #### G ARVINDLS #### Point of Care testing , Hematocrit (Bld) [Volume fraction] 39.8 % Normal 34.0-46.4 [facility] Comment on above: Performed By: #### G ARVINDLS #### Point of Care testing , Hemoglobin (Bld) [Mass/Vol] 13.8 g/dL Normal 11.8-15.4 [facility] Comment on above: Performed By: #### G ARVINDLS #### Point of Care testing , Lymphocytes (Bld) [#/Vol] 1.5 10*3/uL Normal 1.00-4.8 [facility] Comment on above: Performed By: #### G ARVINDLS #### Point of Care testing , Lymphocytes/100 WBC (Bld) 26.4 % Normal . [facility] Comment on above: Performed By: #### G ARVINDLS #### Point of Care testing , MCH (RBC) [Entitic mass] 30.9 pg Normal 24.7-34.3 [facility] Comment on above: Performed By: #### G ARVINDLS #### Point of Care testing , MCV (RBC) [Entitic vol] 89.0 fL Normal 80-100 [facility] Comment on above: Performed By: #### G ARVINDLS #### Point of Care testing , Mean Corpuscular HGB Conc 34.8 g/dL Normal 32.0-35.0 [facility] Comment on above: Performed By: #### G ARVINDLS #### Point of Care testing , Monocytes (Bld) [#/Vol] 0.4 10*3/uL Normal 0.0-0.8 [facility] Comment on above: Performed By: #### [place] MUNROE #### Point of Care testing , Monocytes/100 WBC (Bld) 7.0 % Normal . [facility] Comment on above: Performed By: #### G ARVINDLS #### Point of Care testing , Neutrophils (Bld) [#/Vol] 3.6 10*3/uL Normal 1.8-7.7 [facility] Comment on above: Performed By: #### G SHANEKA #### Point of Care testing , Neutrophils/100 WBC (Bld) 62.6 % Normal . [facility] Comment on above: Performed By: #### G SHANEKA #### Point of Care testing , Nucleated RBC/100 WBC (Bld) [Ratio] 0.4 % Normal 0-0.5 [facility] Comment on above: Performed By: #### G SHANEKA #### Point of Care testing , Platelet mean volume (Bld) [Entitic vol] 9.1 fL Normal 6.3-10.7 [facility] Comment on above: Performed By: #### [place] MUNROE #### Point of Care testing , Platelets (Bld) [#/Vol] 201 10*3/uL Normal 150-450 [facility] Comment on above: Performed By: #### [place] MUNROE #### Point of Care testing , RBC (Bld) [#/Vol] 4.47 10*6/uL Normal 3.60-5.00 [facility] Comment on above: Performed By: #### [place] MUNROE #### Point of Care testing , WBC (Bld) [#/Vol] 5.7 10*3/uL Normal 4.5-11.0 [facility] Comment on above: Performed By: #### G SHANEKA #### Point of Care testing , Basophils (Bld) [#/Vol] 0.1 10*3/uL Normal 0.0-0.2 [facility] Comment on above: Result Comment: PERF ORMED BY: [facility] [address] PATHOLOGIST STUDENT OUTREACH COORDINATOR DOMINGA SOLIMAN M.D. Performed By: #### P T, CBC, PTT #### [facility] [address] [place] [address] [place] Basophils/100 WBC (Bld) 0.7 % Normal . [facility] Comment on above: Performed By: #### P T, CBC, PTT #### [facility] [address] Eosinophils (Bld) [#/Vol] 0.1 10*3/uL Normal 0.0-0.45 [facility] Comment on above: Performed By: #### P T, CBC, PTT #### [facility] [address] Eosinophils/100 WBC (Bld) 1.5 % Normal . [facility] Comment on above: Performed By: #### P T, CBC, PTT #### [facility] [address] Erythrocyte distribution width (RBC) [Ratio] 15.4 % High 11.9-15.3 [facility] Comment on above: Performed By: #### P T, CBC, PTT #### [facility] [address] Hematocrit (Bld) [Volume fraction] 41.4 % Normal 34.0-46.4 [facility] Comment on above: Performed By: #### P T, CBC, PTT #### [facility] [address] Hemoglobin (Bld) [Mass/Vol] 14.0 g/dL Normal 11.8-15.4 [facility] Comment on above: Performed By: #### P T, CBC, PTT #### [facility] [address] [place] [address] [place] Lymphocytes (Bld) [#/Vol] 2.0 10*3/uL Normal 1.00-4.8 [facility] Comment on above: Performed By: #### P T, CBC, PTT #### [facility] [address] [place] [address] [place] Lymphocytes/100 WBC (Bld) 30.1 % Normal . [facility] Comment on above: Performed By: #### P T, CBC, PTT #### [facility] [address] MCH (RBC) [Entitic mass] 30.4 pg Normal 24.7-34.3 [facility] Comment on above: Performed By: #### P T, CBC, PTT #### [address] MCV (RBC) [Entitic vol] 89.6 fL Normal 80-100 [facility] Comment on above: Performed By: #### P T, CBC, PTT #### [facility] [address] Mean Corpuscular HGB Conc 33.9 g/dL Normal 32.0-35.0 [facility] Comment on above: Performed By: #### P T, CBC, PTT #### [address] Monocytes (Bld) [#/Vol] 0.4 10*3/uL Normal 0.0-0.8 [facility] Comment on above: Performed By: #### P T, CBC, PTT #### [address] Monocytes/100 WBC (Bld) 6.4 % Normal . [facility] Comment on above: Performed By: #### P T, CBC, PTT #### [address] Neutrophils (Bld) [#/Vol] 4.2 10*3/uL Normal 1.8-7.7 [facility] Comment on above: Performed By: #### P T, CBC, PTT #### [address] Neutrophils/100 WBC (Bld) 61.3 % Normal . [facility] Comment on above: Performed By: #### P T, CBC, PTT #### [address] Nucleated RBC/100 WBC (Bld) [Ratio] 0.1 % Normal 0-0.5 [facility] Comment on above: Performed By: #### P T, CBC, PTT #### [facility] [address] Platelet mean volume (Bld) [Entitic vol] 8.9 fL Normal 6.3-10.7 [facility] Comment on above: Performed By: #### P T, CBC, PTT #### [facility] [address] Platelets (Bld) [#/Vol] 197 10*3/uL Normal 150-450 [facility] Comment on above: Performed By: #### P T, CBC, PTT #### [facility] [address] RBC (Bld) [#/Vol] 4.62 10*6/uL Normal 3.60-5.00 [facility] Comment on above: Performed By: #### P T, CBC, PTT #### [address] WBC (Bld) [#/Vol] 6.8 10*3/uL Normal 4.5-11.0 [facility] Comment on above: Performed By: #### P T, CBC, PTT #### [address] Comprehensive Metabolic Pane dom 08-07-2020 Albumin [Mass/Vol] 3.4 g/dL Normal 3.2-5.5 [facility] Comment on above: Performed By: #### G LULS #### Point of Care testing , Albumin/Globulin [Mass ratio] 1.0 {ratio} Normal [facility] Comment on above: Performed By: #### G LULS #### Point of Care testing , ALP [Catalytic activity/Vol] 107 U/L High 32-92 [facility] Comment on above: Performed By: #### G LULS #### Point of Care testing , ALT [Catalytic activity/Vol] 17 U/L Normal 10-60 [facility] Comment on above: Performed By: #### G LULS #### Point of Care testing , AST [Catalytic activity/Vol] 25 U/L Normal 10-42 [facility] Comment on above: Performed By: #### G LULS #### Point of Care testing , Bilirubin [Mass/Vol] 0.9 mg/dL Normal 0.3-1.2 [facility] Comment on above: Performed By: #### G LULS #### Point of Care testing , Calcium [Mass/Vol] 9.1 mg/dL Normal 8.2-10.2 [facility] Comment on above: Performed By: #### G LULS #### Point of Care testing , Chloride [Moles/Vol] 105 mmol/L Normal 95-114 [facility] Comment on above: Performed By: #### G LULS #### Point of Care testing , CO2 [Moles/Vol] 20.9 mmol/L Low 22.0-30.0 [facility] Comment on above: Performed By: #### G LULS #### Point of Care testing , Creatinine [Mass/Vol] 0.96 mg/dL Normal 0.44-1.03 [facility] Comment on above: Performed By: #### G LULS #### Point of Care testing , Creatinine Clr Calc Pharmacy 54.35 [facility] Comment on above: Performed By: #### G LULS #### Point of Care testing , Estimated GFR ( Grace > 60 [facility] Comment on above: Result Comment: GFR estimated reference range: According to KDOQI guidelines, <60 ml/min/1.73m2 is sufficient to diagnose a patient with chronic kidney disease. Performed By: #### G LULS #### Point of Care testing , Estimated GFR (Non- Am 57 [facility] Comment on above: Performed By: #### G LULS #### Point of Care testing , Globulin (S) [Mass/Vol] 3.5 g/dL [facility] Comment on above: Performed By: #### G LULS #### Point of Care testing , Glucose [Mass/Vol] 391 mg/dL High 70-100 [facility] Comment on above: Result Comment: [place] Glucose Reference Range is dependent on time and content of last meal. Glucose of more than 200 mg/dL in a nonstressed, ambulatory subject supports the diagnosis of Diabetes Mellitus. ADA recommended reference range Performed By: #### G ARVINDLS #### Point of Care testing , Potassium [Moles/Vol] 4.4 mmol/L Normal 3.5-5.1 [facility] Comment on above: Performed By: #### G ARVINDLS #### Point of Care testing , Protein [Mass/Vol] 6.9 g/dL Normal 6.1-7.9 [facility] Comment on above: Performed By: #### G ARVINDLS #### Point of Care testing , Sodium [Moles/Vol] 136 mmol/L Normal 136-146 [facility] Comment on above: Performed By: #### G ARVINDLS #### Point of Care testing , Urea nitrogen [Mass/Vol] 19 mg/dL Normal 9-23 [facility] Comment on above: Performed By: #### [place] SAMUELSLS #### Point of Care testing , Albumin [Mass/Vol] 3.4 g/dL Normal 3.2-5.5 [facility] Comment on above: Performed By: #### [place] MUNROE #### Point of Care testing , Albumin/Globulin [Mass ratio] 0.9 {ratio} Normal [facility] Comment on above: Performed By: #### G ARVINDLS #### Point of Care testing , ALP [Catalytic activity/Vol] 100 U/L High 32-92 [facility] Comment on above: Performed By: #### [place] SAMUELSLS #### Point of Care testing , ALT [Catalytic activity/Vol] 17 U/L Normal 10-60 [facility] Comment on above: Performed By: #### [place] MUNROE #### Point of Care testing , AST [Catalytic activity/Vol] 34 U/L Normal 10-42 [facility] Comment on above: Performed By: #### G ARVINDLS #### Point of Care testing , Bilirubin [Mass/Vol] 0.8 mg/dL Normal 0.3-1.2 [facility] Comment on above: Performed By: #### G LULS #### Point of Care testing , Calcium [Mass/Vol] 9.2 mg/dL Normal 8.2-10.2 [facility] Comment on above: Performed By: #### G LULS #### Point of Care testing , Chloride [Moles/Vol] 104 mmol/L Normal 95-114 [facility] Comment on above: Performed By: #### G LULS #### Point of Care testing , CO2 [Moles/Vol] 20.0 mmol/L Low 22.0-30.0 [facility] Comment on above: Performed By: #### G LULS #### Point of Care testing , Creatinine [Mass/Vol] 0.95 mg/dL Normal 0.44-1.03 [facility] Comment on above: Performed By: #### G LULS #### Point of Care testing , Creatinine Clr Calc Pharmacy 55.10 [facility] Comment on above: Result Comment: PERF ORMED BY: [facility] [address] [place] [address] PATHOLOGIST STUDENT OUTREACH COORDINATOR DOMINGA SOLIMAN M.D. Performed By: #### G LULS #### Point of Care testing , Estimated GFR ( Grace > 60 [facility] Comment on above: Result Comment: GFR estimated reference range: According to KDOQI guidelines, <60 ml/min/1.73m2 is sufficient to diagnose a patient with chronic kidney disease. Performed By: #### G LULS #### Point of Care testing , Estimated GFR (Non- Am 58 [facility] Comment on above: Performed By: #### G LULS #### Point of Care testing , Globulin (S) [Mass/Vol] 3.6 g/dL [facility] Comment on above: Performed By: #### G LULS #### Point of Care testing , Glucose [Mass/Vol] 271 mg/dL High 70-100 [facility] Comment on above: Result Comment: [place] Glucose Reference Range is dependent on time and content of last meal. Glucose of more than 200 mg/dL in a nonstressed, ambulatory subject supports the diagnosis of Diabetes Mellitus. ADA recommended reference range Performed By: #### G LULS #### Point of Care testing , Potassium [Moles/Vol] 4.0 mmol/L Normal 3.5-5.1 [facility] Comment on above: Performed By: #### G LULS #### Point of Care testing , Protein [Mass/Vol] 7.0 g/dL Normal 6.1-7.9 [facility] Comment on above: Performed By: #### G LULS #### Point of Care testing , Sodium [Moles/Vol] 136 mmol/L Normal 136-146 [facility] Comment on above: Performed By: #### G LULS #### Point of Care testing , Urea nitrogen [Mass/Vol] 15 mg/dL Normal 9-23 [facility] Comment on above: Performed By: #### G LULS #### Point of Care testing , [facility] echo transthoracicon [facility] echo transthoracic [facility] [place] [address] Echocardiogram Signed Patient: Lucila Tineo MR#: [id number] : 1950 Acct:[id number] Age/Sex: 70 / F ADM Date: 08/06/20 Loc: Room: [address] [place] [address] Type: ADM IN Attending Dr: Drew Patterson MD Ordering Provider: Bravo Abdi MD Date of Service: 08/06/20 [facility] echo transthoracic: NSTEMI, wall motion abnormalities Copies to: MD Cory Del Toro MD, [facility] Height: 64 in Weight: 167 lb [...] mmHg MR max P.8 mmHg Transcribed By: [facility] 08/07/201126 Dictated By: Cory Rudd MD, [facility] 08/07/20 0927 Signed By: 08/07/20 1127 [facility] Glucose Poct Glucometerson 0 08-07-2020 Commemt3 Cleaned Meter [facility] Comment on above: Result Comment: PERF ORMED BY: [facility] [address] [place] [address] PATHOLOGIST STUDENT OUTREACH COORDINATOR DOMINGA SOLIMAN M.D. Performed By: #### G SHANEKA #### Point of Care testing , Glucose [Mass/Vol] 503 mg/dL Off scale [facility] Comment on above: Result Comment: [facility] Glucose Reference Range is dependent on time and content of last meal. Glucose of more than 200 mg/dL in a nonstressed, ambulatory subject supports the diagnosis of Diabetes Mellitus. Performed By: #### G LULS #### Point of Care testing , Commemt1 Glu2: Cleaned Meter [facility] Comment on above: Result Comment: PERF ORMED BY: [place] [address] PATHOLOGIST STUDENT OUTREACH COORDINATOR DOMINGA SOLIMAN M.D. Performed By: #### G LULS #### Point of Care testing , Glucose [Mass/Vol] 299 mg/dL [facility] Comment on above: Result Comment: [place] om Glucose Reference Range is dependent on time and content of last meal. Glucose of more than 200 mg/dL in a nonstressed, ambulatory subject supports the diagnosis of Diabetes Mellitus. Performed By: #### G LULS #### Point of Care testing , Commemt1 [facility] Comment on above: Result Comment: Glu2 : Will Repeat Test Performed By: #### G LULS #### Point of Care testing , Result Comment: Glu2 : WILL NOTIFY DR/RN Commemt2 Cleaned Meter [facility] Comment on above: Result Comment: PERF ORMED BY: [place] [address] PATHOLOGIST STUDENT OUTREACH COORDINATOR DOMINGA SOLIMAN M.D. Performed By: #### G LULS #### Point of Care testing , Glucose [Mass/Vol] 429 mg/dL Off scale high [facility] Comment on above: Result Comment: [place] om Glucose Reference Range is dependent on time and content of last meal. Glucose of more than 200 mg/dL in a nonstressed, ambulatory subject supports the diagnosis of Diabetes Mellitus. Performed By: #### G LULS #### Point of Care testing , Commemt1 Glu2: Cleaned Meter [facility] Comment on above: Performed By: #### P T, CBC, PTT #### [facility] [address] [place] [address] [place] Commemt2 WILL NOTIFY DR/RN [facility] Comment on above: Performed By: #### G LULS #### Point of Care testing , Performed By: #### P T, CBC, PTT #### [address] Commemt3 Will Repeat Test Normal [facility] Comment on above: Result Comment: PERF ORMED BY: [place] [address] PATHOLOGIST STUDENT OUTREACH COORDINATOR DOMINGA SOLIMAN M.D. Performed By: #### P T, CBC, PTT #### [address] Glucose [Mass/Vol] 429 mg/dL Off scale high [facility] Comment on above: Result Comment: [place] om Glucose Reference Range is dependent on time and content of last meal. Glucose of more than 200 mg/dL in a nonstressed, ambulatory subject supports the diagnosis of Diabetes Mellitus. Performed By: #### P T, CBC, PTT #### [facility] [address] [place] [address] Commemt1 Glu2: Cleaned Meter [facility] Comment on above: Result Comment: PERF ORMED BY: [place] [address] PATHOLOGIST STUDENT OUTREACH COORDINATOR DOMINGA SOLIMAN M.D. Performed By: #### G LULS #### Point of Care testing , Glucose [Mass/Vol] 373 mg/dL [facility] Comment on above: Result Comment: [place] om Glucose Reference Range is dependent on time and content of last meal. Glucose of more than 200 mg/dL in a nonstressed, ambulatory subject supports the diagnosis of Diabetes Mellitus. Performed By: #### G LULS #### Point of Care testing , Glucose [Mass/Vol] 261 mg/dL [facility] Comment on above: Result Comment: [place] om Glucose Reference Range is dependent on time and content of last meal. Glucose of more than 200 mg/dL in a nonstressed, ambulatory subject supports the diagnosis of Diabetes Mellitus. PERFORMED BY: [place] [id number] PATHOLOGIST STUDENT OUTREACH COORDINATOR DOMINGA SOLIMAN M.D. Performed By: #### P T, CBC, PTT #### [address] Lipid Panelon 08-07-2020 Cholesterol [Mass/Vol] 201 mg/dL High 140-200 [facility] Comment on above: Result Comment: Chol less than 200 mg/dl low risk Chol 201-239 mg/dl borderline risk Chol 240 mg/dl and greater high risk Performed By: #### G LULS #### Point of Care testing , Cholesterol in HDL [Mass/Vol] 49 mg/dL Normal 35-85 [facility] Comment on above: Result Comment: HDL CHOL ATP-III CLASSIFICATION Cardiovascular Risk HDL > or equal to 60 mg/dL LOW HDL < 40 mg/dL HIGH Performed By: #### G LULS #### Point of Care testing , Cholesterol.total/Ch olesterol in HDL [Mass ratio] 4.1 {ratio} Normal <5.0 [facility] Comment on above: Result Comment: PERF ORMED BY: [place] [address] PATHOLOGIST STUDENT OUTREACH COORDINATOR DOMINGA SOLIMAN M.D. Performed By: #### G LULS #### Point of Care testing , LDL Cholesterol,Calculat ed 127 mg/dL High 0-100 [facility] Comment on above: Result Comment: LDL ATP III CLASSIFICATION LDL less than 100 mg/dL Optimal LDL 100-129 mg/dL Near or above optimal LDL 130-159 mg/dL Borderline high LDL 160-189 mg/dL High LDL greater than 189 mg/dL Very high Performed By: #### G LULS #### Point of Care testing , Triglyceride w/Reflex 126 mg/dL Normal 35-149 [facility] Comment on above: Result Comment: TRIG [...] 08-07-2020 Magnesium [Mass/Vol] 2.0 mg/dL Normal 1.6-2.6 [facility] Comment on above: Performed By: #### G LULS #### Point of Care testing , Partial Thromboplastin Timeo n 08-07-2020 aPTT Coag (Bld) [Time] 42.8 s High 25.1-36.5 [facility] Comment on above: Result Comment: PERF ORMED BY: [place] [address] PATHOLOGIST STUDENT OUTREACH COORDINATOR DOMINGA SOLIMAN M.D. Performed By: #### G ARVINDLS #### Point of Care testing , aPTT Coag (Bld) [Time] 33.2 s Normal 25.1-36.5 [facility] Comment on above: Result Comment: PERF ORMED BY: [place] [address] PATHOLOGIST STUDENT OUTREACH COORDINATOR DOMINGA SOLIMAN M.D. Performed By: #### P T, CBC, PTT #### [address] Prothrombin Time INRon 08-07 INR Coag (PPP) [Relative time] 1.0 {INR} Normal [facility] Comment on above: Result Comment: INR [...] Coag (PPP) [Time] 11.4 s Normal 9.0-12.9 [facility] Comment on above: Performed By: #### G LULS #### Point of Care testing , INR Coag (PPP) [Relative time] 1.0 {INR} Normal [facility] Comment on above: Result Comment: INR [...] By: #### P T, CBC, PTT #### [address] PT Coag (PPP) [Time] 11.2 s Normal 9.0-12.9 [facility] Comment on above: Performed By: #### P T, CBC, PTT #### [place] [address] [place] Troponin I(TnI)on 08-07-2020 Troponin I.cardiac [Mass/Vol] 3.26 ng/mL Off scale high 0-0.02 [facility] Comment on above: Result Comment: [place] Cut off value > or equal to 0.03 ng/mL in conjunction with clinical conditions of myocardial infarction. (www.escardio.org/guidelines) PERFORMED BY: [place] [address] PATHOLOGIST STUDENT OUTREACH COORDINATOR DOMINGA SOLIMAN M.D. Performed By: #### P T, CBC, PTT #### [address] Troponin I.cardiac [Mass/Vol] 3.61 ng/mL Off scale high 0-0.02 [facility] Comment on above: Result Comment: [place] Cut off value > or equal to 0.03 ng/mL in conjunction with clinical conditions of myocardial infarction. (www.escardio.org/guidelines) PERFORMED BY: [place] [address] PATHOLOGIST STUDENT OUTREACH COORDINATOR DOMINGA SOLIMAN M.D. Performed By: #### T ROP #### [address] [place] [address] [facility] Troponin I.cardiac [Mass/Vol] 4.39 ng/mL Off scale high 0-0.02 [facility] Comment on above: Result Comment: Resu lts called at 0009 on 08/07/20 [place] Cut off value > or equal to 0.03 ng/mL in conjunction with clinical conditions of myocardial infarction. (www.escardio.org/guidelines) PERFORMED BY: [place] [address] PATHOLOGIST STUDENT OUTREACH COORDINATOR DOMINGA SOLIMAN M.D. Performed By: #### P T, CBC, PTT #### [facility] [address] [place] [address] ECG 12 lead ECGon 08-06-2020 ECG 12 lead ECG [facility] [place] [address] [place] [address] Electrocardiograph Report Signed Patient: Lucila Tineo MR#: [id number] : 1950 Acct:[id number] Age/Sex: 70 / F ADM Date: 08/06/20 Loc: Room: [address] [place] [address] Type: ADM IN Attending Dr: Drew Patterson [...] Castillo MD 08/06/202110 Signed By: 08/07/20 171 Normal [facility] Vital Signs Date Time Vital Sign Value Performing Clinician Faci amor 07-07-2023 10:46-0400 Body height 162.6 cm Jah Sharpe MD Work Phone: [facility] 07-07-2023 10:46-0400 Body mass index (BMI) [Ratio] 23 kg/m2 Jah Sharpe MD Work Phone: [facility] 07-07-2023 10:46-0400 Body weight 60.78 kg Jah Sharpe MD Work Phone: [facility] 07-07-2023 10:46-0400 Diastolic blood pressure 52 mm[Hg] Jah Sharpe MD Work Phone: [facility] 07-07-2023 10:46-0400 Heart rate 85 /min Jah Sharpe MD Work Phone: [facility] 07-07-2023 10:46-0400 SaO2% (BldA) [Mass fraction] 96 % Jah Sharpe MD Work Phone: [facility] 07-07-2023 10:46-0400 Systolic blood pressure 123 mm[Hg] Jah Sharpe MD Work Phone: [facility] 03-06-2023 10:08-0500 Body height 162.6 cm Ange Gee MD Work Phone: [facility] 03-06-2023 10:08-0500 Body mass index (BMI) [Ratio] 25.23 kg/m2 Ange Gee MD Work Phone: [facility] 03-06-2023 10:08-0500 Body weight 66.68 kg Ange Gee MD Work Phone: [facility] 03-06-2023 10:08-0500 Diastolic blood pressure 80 mm[Hg] Ange Gee MD Work Phone: [facility] 03-06-2023 10:08-0500 Heart rate 87 /min Ange Gee MD Work Phone: [facility] 03-06-2023 10:08-0500 SaO2% (BldA) [Mass fraction] 94 % Ange Gee MD Work Phone: [employer] 03-06-2023 10:08-0500 Systolic blood pressure 132 mm[Hg] An[facility]ee [facility] 12-11-2021 11:20-0400 Body height 162.56 cm Mily Gabi Andrade Work Phone: [facility] 250 DO Work Phone: 12-11-2021 11:20-0400 Body mass index (BMI) [Ratio] 27.98 kg/m2 Mily Ashley Andrade Work Phone: [facility] 250 DO Work Phone: 12-11-2021 11:20-0400 Body surface area Derived from formula 1.79 m2 Mily Ashley Andrade Work Phone: [facility] 250 DO Work Phone: 12-11-2021 11:20-0400 Body weight 73.94 kg Mily Ashley Andrade Work Phone: [facility] 250 DO Work Phone: 12-11-2021 11:20-0400 Diastolic blood pressure 78 mm[Hg] Mily Ashley Andrade Work Phone: [facility] 250 DO Work Phone: 12-11-2021 11:20-0400 Heart rate 76 /min Mily Ashley Andrade Work Phone: [facility] DO Work Phone: 12-11-2021 11:20-0400 Systolic blood pressure 136 mm[Hg] Mily Ashley Andrade Work Phone: [facility] DO Work Phone: 02-05-2021 11:35-0500 Body height 162.56 cm Mily Ashley Andrade Work Phone: [facility] DO Work Phone: 02-05-2021 11:35-0500 Body mass index (BMI) [Ratio] 28.67 kg/m2 Mily A Andrade Work Phone: [facility] 250 DO Work Phone: 02-05-2021 11:35-0500 Body surface area Derived from formula 1.81 m2 Mily A Andrade Work Phone: [facility] 250 DO Work Phone: 02-05-2021 11:35-0500 Body weight 75.75 kg Mily A Andrade Work Phone: [facility] 250 DO Work Phone: 02-05-2021 11:35-0500 Diastolic blood pressure 81 mm[Hg] Mily A Andrade Work Phone: [facility] 250 DO Work Phone: 02-05-2021 11:35-0500 Heart rate 77 /min Mily A Andrade Work Phone: [facility] 250 DO Work Phone: 02-05-2021 11:35-0500 Systolic blood pressure 157 mm[Hg] Mily Gabi Andrade Work Phone: [facility] 250 DO Work Phone: 12-04-2020 15:01-0400 Diastolic blood pressure 72 mm[Hg] Bruce Elias DO Work Phone: [facility] 600 DO Work Phone: 12-04-2020 15:01-0400 Systolic blood pressure 170 mm[Hg] Bruce Elias DO Work Phone: -[facility] 600 DO Work Phone: 12-04-2020 13:53-0400 Body height 162.56 cm Bruce Elias DO Work Phone: -[facility] 600 DO Work Phone: 12-04-2020 13:53-0400 Body mass index (BMI) [Ratio] 29.01 kg/m2 Bruce Elias DO Work Phone: -[facility] 600 DO Work Phone: 12-04-2020 13:53-0400 Body surface area Derived from formula 1.82 m2 Bruce Elias DO Work Phone: [facility] DO Work Phone: 12-04-2020 13:53-0400 Body weight 76.66 kg Bruce Elias DO Work Phone: -[facility] 600 DO Work Phone: 12-04-2020 13:53-0400 Diastolic blood pressure 90 mm[Hg] Bruce Elias DO Work Phone: -[facility] 600 DO Work Phone: 12-04-2020 13:53-0400 Heart rate 68 /min Bruce Elias DO Work Phone: [facility] 600 DO Work Phone: 12-04-2020 13:53-0400 Systolic blood pressure 150 mm[Hg] Bruce Elias DO Work Phone: -[facility] 600 DO Work Phone: 11-06-2020 15:18-0400 70 1 Bruce Elias DO Work Phone: [facility] DO Work Phone: Comment on above: [id number] Encounters Encounter Date Encounter Type Care Provider Facility Start: 07-16-2023 Telephone encounter Jah Sharpe MD Work Phone: [facility] Comment on above: Received Outside [facility] (Rec'd lab report from [employer] imported into [employer]./) Start: 07-14-2023 Telephone encounter Jah Sharpe MD Work Phone: [facility] Comment on above: Results (PT-INR Resu lts ) Start: 07-13-2023 ambulatory Jah Sharpe MD Work Phone: [facility] Comment on above: Unruptured Aneurysm (Diagnostic Cerebral Angiogram) Cerebral Angiogram I nstructions for 08/06/2023 Start: 07-13-2023 E-mail encounter fito seth caregiver Jah Sharpe MD Work Phone: [facility] Start: 07-10-2023 ambulatory Jah Sharpe MD Work Phone: [facility] Comment on above: Plan of Care Start: 07-10-2023 E-mail encounter fito seth caregiver Jah Sharpe MD Work Phone: [facility] Start: 07-07-2023 End: 07-07-2023 ambulatory [facility] Facility:[facility] Start: 07-07-2023 End: 07-07-2023 ambulatory MILY ANDRADE Facility:[facility] Start: 07-07-2023 End: 07-07-2023 Patient encounter procedure Jah Sharpe MD Work Phone: [facility] Comment on above: Unruptured cerebral aneurysm (Primary Dx); Hypertension, unspecified type; Hyperlipidemia, unspecified hyperlipidemia type; Atrial fibrillation, unspecified type (HCC); Ischemic stroke (HCC) Start: 07-07-2023 End: 07-07-2023 Subsequent hospital visit by physician Ct 2 Main Qb (I-Stat) Radiology Comment on above: Nonruptured cerebral aneurysm [I67.1] Start: 06-25-2023 End: 06-25-2023 ambulatory JENIFFER [facility] Start: 04-29-2023 Telephone encounter Yeni Rai [facility] Comment on above: Calcified granuloma of lung (CMS-HCC) (Primary Dx) Start: 04-21-2023 End: 04-22-2023 ambulatory [facility] Not Available Start: 04-14-2023 Clinisync Result Encounter Radha Herrera MD Work Phone: [facility] External Department Unsolicited Start: 04-14-2023 Clinisync Result Encounter Radha Herrera MD Work Phone: [facility] External Department Unsolicited Start: 03-25-2023 End: 03-25-2023 Emergency department patient visit MILY LUPE Facility:[facility] Start: 03-25-2023 End: 03-25-2023 [facility] Start: 03-06-2023 End: 03-06-2023 [facility]ulatory [facility] Start: 03-06-2023 End: 03-06-2023 Office outpatient visit 25 minutes Ange Gee MD Work Phone: [facility] Comment on above: Essential hypertensi on (Primary Dx); Paroxysmal atrial fibrillation ([facility]) Start: 03-05-2023 Telephone encounter Corrie Goldstein [facility] Start: 03-02-2023 ambulatory [facility] Start: 03-01-2023 ambulatory [facility] Start: 01-20-2023 ambulatory Jah Sharpe MD Work Phone: [facility] Comment on above: Anticoag Start: 01-16-2023 ambulatory Jah Sharpe MD Work Phone: [facility] Comment on above: Images Start: 01-02-2023 Telephone encounter Jah Sharpe MD Work Phone: [facility] Comment on above: Staff 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 Midwife - O ther Start: 12-16-2022 End: 12-16-2022 ambulatory Jah Sharpe MD Work Phone: [facility] Comment on above: Unruptured cerebral aneurysm (Primary Dx); Ischemic stroke (HCC); Hypertension, unspecified type; Hyperlipidemia, unspecified hyperlipidemia type; Smoking Start: 12-16-2022 End: 12-16-2022 Telemedicine consultation with patient Jah Sharpe MD Work Phone: [facility] Start: 12-04-2022 Telephone encounter Neurology Provid [facility] Comment on above: Future Appointment ( New Patient, [place], Any) Start: 08-25-2022 Rx Renewal Mily Gabi Andrade Work Phone: [facility] DO Work Phone: Start: 01-07-2022 Rx Renewal Mily A Andrade Work Phone: [facility] DO Work Phone: Start: 12-11-2021 Office outpatient vi sit 15 minutes Mily A Andrade Work Phone: [facility] 250 DO Work Phone: Start: 12-11-2021 ambulatory Ms. Mily ramos Andrade Facility: Start: 10-11-2021 Telephone encounter Mily Ashley Andrade Work Phone: [facility] DO Work Phone: Start: 09-03-2021 Rx Renewal Mily Ashley Andrade Work Phone: [facility] DO Work Phone: Start: 02-05-2021 Office outpatient vi sit 10 minutes Mily A Andrade Work Phone: [facility] DO Work Phone: Start: 02-05-[address] Bruce Elias [facility]: Start: 12-04-2020 Patient encounter procedure Bruce Elias DO Work Phone: [facility] 600 DO Work Phone: Start: 09-05-2020 End: 01-05-2022 ambulatory SALAS KIRKPATRICK Facility:H1 Echocardiogram normal Mily Andrade Work Phone: -[facility] DO Work Phone: Procedures Date Procedure Procedure Detail Performing Clinician Start: 07-07-2023 Ct angiography head w/contrast/noncontrast Jeffery Gordon APRN.CNP Work Phone: Start: 07-07-2023 Creatinine [Mass/vol ume] in Serum or Plasma [facility] Provider Start: 04-14-2023 [facility] UA (CLEAN/CATCH) GRADUATION COACH/MICRO IF IND. Radha Herrera MD Work Phone: Start: 04-14-2023 [facility] URINE MICROSCOPIC ONLY Radha Herrera MD Work [...] Td Vaccines (2 - Td or Tdap) [facility] Start: 06-09-2028 Urine microalbumin profile DTaP,Tdap,Td Vaccine (2 - Td or Tdap) [facility] Start: 06-05-2026 Screening for malign ant neoplasm of colon [facility] Start: 01-16-2026 Diabetes Screening Diabetes Screenin g [facility] Start: 12-26-2024 Glaucoma screening Diabetes: R etinopathy Screening [facility] Start: 07-06-2024 BP Controlled (<130/80) BP Controlle d (<130/80) [facility] Start: 03-06-2024 Adult BMI Screening Adult BMI Screen ing [facility] Start: 03-06-2024 Tobacco Screening Tobacco Screening [facility] Start: 01-22-2024 Adult BMI Screening Adult BMI Screen ing [facility] Start: 01-19-2024 Tobacco Screening Tobacco Screening [facility] Start: 11-01-2023 Influenza vaccination Influenz a Vaccine (Season Ended) [facility] Start: 08-06-2023 Subsequent hospital visit by physician 08/06/2023 Hospital Encounter Angio [address] [place] [address] Jah Sharpe MD [address] [place], [place] [id number] Unruptured cerebral aneurysm [I67.1] Angio Comment on above: Unruptured cerebral aneurysm [I67.1] Start: 07-17-2023 Hemoglobin A1c measurement HbA1C [facility] Start: 07-13-2023 End: 10-12-2023 aPTT in Platelet poor plasma by Coagulation assay ACTIVATED PARTIAL THROMBOPLASTIN TIME Lab Routine Unruptured cerebral aneurysm Encounter for monitoring antiplatelet therapy Expected: 07/13/2023, Expires: 10/12/2023 [facility] Comment on above: Expected: 07/13/2023 , Expires: 10/12/2023 Start: 07-13-2023 End: 10-12-2023 Basic metabolic 2000 panel - Serum or Plasma BASIC METABOLIC PANEL Lab Routine Unruptured cerebral aneurysm Expected: 07/13/2023, Expires: 10/12/2023 [facility] Comment on above: Expected: 07/13/2023 , Expires: 10/12/2023 Start: 07-13-2023 End: 10-12-2023 CBC panel - Blood by Automated count COMPLETE BLOOD COUNT Lab Routine Unruptured cerebral aneurysm Expected: 07/13/2023, Expires: 10/12/2023 [facility] Work Phone: Comment on above: Expected: 07/13/2023 , Expires: 10/12/2023 Start: 07-13-2023 End: 10-12-2023 PT panel - Platelet poor plasma by Coagulation assay PROTHROMBIN TIME Lab Routine Unruptured cerebral aneurysm Encounter for monitoring antiplatelet therapy Expected: 07/13/2023, Expires: 10/12/2023 [facility] Comment on above: Expected: 07/13/2023 , Expires: 10/12/2023 Start: 06-25-2023 End: 06-25-2023 Patient encounter procedure 06/25/2023 2:00 PM EDT Office Visit [facility] [address] [place] [id number] Jeniffer Jefferson, [address] [address] [facility] Start: 05-17-2023 Urine screening for protein Diabetes: Urine Protein Screening [facility] Start: 04-24-2023 Screening for malign ant neoplasm of breast [facility] Start: 04-21-2023 End: 04-21-2023 Patient encounter procedure 04/21/2023 3:00 PM EST Office Visit [facility] [address] [place] [phone] Mily Andrade NP [address], [place] [id number] [facility] Start: 04-16-2023 Medicare Annual Well ness (AWV) Medicare Annual Wellness (AWV) [facility] Start: 03-06-2023 End: 03-06-2023 Patient encounter procedure 03/06/2023 10:15 AM EST Office Visit [facility] [address] [place] [phone] Ange Gee MD [address] [place], [place] [id number] [facility] Start: 03-02-2023 Advance Directive Discussion Advance Directive Discussion [facility] Start: 03-02-2023 Behavioral Health Screening Behavioral Health Screening [facility] Start: 12-11-2022 FUV, Provider: Bruce Elias, Status: Pen, Time: 10:20 AM FUV, Provider: Bruce Elias, Status: Pen, Time: 10:[address] [facility] DO Work Phone: Start: 10-31-2022 Covid-19 Vaccine () Covid-19 Vaccine () [facility] Start: 10-31-2022 Influenza vaccination C [facility] Start: 06-11-2022 Hemoglobin A1c measurement Diabetes: Hemoglobin A1C [facility] Start: 03-02-2022 Advance Directive Discussion Advance Directive Discussion [facility] Start: 03-02-2022 Depression Assessment Depression Ass essment [facility] Start: 12-11-2021 FUV, Provider: Bruce Elias, Status: Pen, Time: 11:20 AM FUV, Provider: Bruce Elias, Status: Pen, Time: 11:[address] [facility] 600 DO Work Phone: Start: 02-19-2021 NURSEVST, Provider: DAVID LANDEROS STEEL CHECKER [id number], Status: Pen, Time: 11:00 AM NURSEVST, Provider: DAVID LANDEROS STEEL CHECKER 1,[id number], Status: Pen, Time: 11:[address] [facility] DO Work Phone: Start: 01-09-2021 FUV, Provider: Salas Wilson, Status: Pen, Time: 1:30 PM FUV, Provider: Salas Wilson, Status: Pen, Time: 1:[address] [facility] 600 DO Work Phone: Start: 04-03-2020 Administration of varicella zoster vaccine Zoster (Shingles) Vaccine (2 of 2) [facility] Start: 04-03-2020 Shingrix Vaccine (2 of 2) Shingrix Vaccine (2 of 2) [facility] Start: 2015 Bone Density Screening Bone Density Screening [facility] Start: 2015 Fall Risk Screening Fall Risk Screen ing [facility] Start: 2010 RSV Vaccine (1 - 1-d ose 60+ series) RSV Vaccine (1 - 1-dose 60+ series) [facility] Start: 02-22-2000 Screening for malign ant neoplasm of lung Lung Cancer Screening [facility] Start: 02-22-2000 Shingrix Vaccine (1 of 2) Shingrix Vaccine (1 of 2) [facility] Start: 1995 Cologuard (FIT-DNA) Cologuard (FIT-D NA) [facility] Start: 1995 Colonoscopy Colonoscopy [facility] Start: 1995 Colorectal Cancer Screening Colorectal Cancer Screening [facility] Start: [address] COLONOGRAPHY [facility] Start: 1995 Diabetes Screening Diabetes Screenin g [facility] Start: 1995 Fecal Occult Blood Fecal Occult Bloo d [facility] Start: 1995 Lipid 1996 panel - S lilliam or Plasma Lipid Screening [facility] Start: 1995 Screening for malign ant neoplasm of colon [facility] Start: [address] 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 Annual PCP Team Chronic Disease Visit [facility] Start: 02-22-1968 Diabetic foot examination Diabetic Foot Exam [facility] Start: 02-22-1968 Hepatitis B surface antibody level LDL Cholesterol [facility] Start: 02-22-1968 Hepatitis C Screening Hepatitis C [facility] Start: 02-22-1968 Hepatitis C screening Hepatitis C [facility] Start: 1962 Depression Screening Depression Scre ening [facility] Start: 02-22-1960 Diabetic foot examination Diabetic Foot Exam [facility] Start: 02-22-1960 Glaucoma screening Dilated Retinal E xam [facility] Start: 02-22-1960 Hepatitis B screening Urine Al bumin:Creatinine Ratio [facility] Start: 02-22-1956 Pneumococcal Vaccine : 65+ (1 - PCV) Pneumococcal Vaccine: 65+ (1 - PCV) [facility] Start: 1950 Glaucoma screening Diabetic Op hthalmology Exam [facility] Start: 1950 Medicare Annual Well ness Visit Medicare Annual Wellness Visit [facility] Start: 1950 Screening for malign ant neoplasm of colon [facility] Start: 1950 Tobacco Counseling Tobacco Counselin g [facility] Start: 1950 Urine screening for protein Urine Microalbumin [facility] IR CEREBRAL ARCH & T HREE VESSEL IR CEREBRAL ARCH & THREE VESSEL Radiology Routine Unruptured cerebral aneurysm Ordered: 07/13/2023 [facility] Comment on above: Ordered: 07/13/2023 End: 04-29-2024 Pulmonary function test Complete PFT w/ BD (Spirometry (Flow Volume Loop) pre/post short acting bronchodilator w/ DLCO (diffusion study) and Lung Volume) Pulmonary function test Complete PFT w/ BD (Spirometry (Flow Volume Loop) pre/post short acting bronchodilator w/ DLCO (diffusion study) and Lung Volume) PFT Routine Calcified granuloma of lung (CMS-HCC) 1 Occurrences starting 04/29/2023 until 04/29/2024 [facility] Work Phone: Comment on above: 1 Occurrences starti ng 04/29/2023 until 04/29/2024 Slctv cath intrcrnl brnch angio intrl carot/vert SELECTIVE CATHETER PLACEMENT EACH INTRACRANIAL BRANCH OF THE INTERNAL CAROTID OR VERTEBRAL ARTERIES UNILATERAL W/ ANGIOGRAPHY OF THE SELECTED VESSEL CIRCULATION AND ALL ASSOCIATED RADIOLOGICAL SUPERVISION AND INTERPRETATION Unruptured cerebral aneurysm [facility] Immunizations Immunization Date Immunization Notes Care Provider Ronny naylor 05-16-2022 influenza virus vaccine, unspecified formulation Jah Sharpe MD Work Phone: [facility] 04-10-2021 Moderna COVID-19 Vaccine 100 MCG/0.5ML Intramuscular Suspension Mily Andrade Work [facility]: [facility] Work Phone: 05-09-2020 Lico COVID-19 Vaccine 0.5 ML Intramuscular Suspension Bruce Elias DO Work Phone: [facility] 02-07-2020 influenza, high dose seasonal, preservative-free Bruce Elias DO Work Phone: [facility] DO Work Phone: 02-07-2020 zoster vaccine recombinant Bruce Elias DO Work Phone: [facility] DO Work Phone: 02-07-2020 influenza virus vaccine, unspecified formulation Neurology Provider [facility] 02-07-2020 zoster vaccine, unspecified formulation Corrie Goldstein [facility] 03-02-2019 influenza, seasonal, injectable Bruce Elias DO Work Phone: [facility] DO Work Phone: 02-14-2019 influenza, high dose seasonal, preservative-free Bruce Elias DO Work Phone: [facility] DO Work Phone: 06-09-2018 tetanus toxoid, redu clif diphtheria toxoid, and acellular pertussis vaccine, adsorbed Bruce Elias DO Work Phone: [facility] DO Work Phone: 03-02-2018 pneumococcal polysaccharide vaccine, 23 valent Bruce Elias DO Work Phone: [facility] DO Work Phone: 12-02-2017 influenza, high dose seasonal, preservative-free Bruce Elias DO Work Phone: [facility] DO Work Phone: 02-25-2017 influenza, high dose seasonal, preservative-free Bruce Elias DO [facility] Phone: [facility] DO Work Phone: 02-17-2017 pneumococcal polysaccharide vaccine, 23 valent Bruce Elias DO Work Phone: [facility] 600 DO Work Phone: 11-06-2015 influenza, injectabl e, quadrivalent, contains preservative Bruce Elias DO Work Phone: [facility] 600 DO Work Phone: 11-06-2015 pneumococcal conjuga te vaccine, 13 valent Bruce Elias DO Work Phone: [facility] 600 DO Work Phone: 12-15-2013 influenza, seasonal, injectable Bruce Elias DO Work Phone: [facility] 600 DO Work Phone: 12-21-2012 influenza, seasonal, injectable Bruce Elias DO Work Phone: [facility] 600 DO Work Phone: 12-16-2006 pneumococcal polysaccharide vaccine, 23 valent Bruce Elias DO Work Phone: [facility] 600 DO Work Phone: 11-18-2006 pneumococcal polysaccharide vaccine, 23 valent Bruce Elias DO Work Phone: [facility] 600 DO Work Phone: Payers Date Payer Category Payer Medicare [id number] 2023 Medicaid [id number] 2023 Medicaid [id number] 2023 Medicaid [id number] 2018 Medicare [id number] 1959 Medicare [id number] 1950 [facility] [id number] 1950 Unknown [id number] [id number] 1950 Unknown [id number] [id number]. [id number] 1950 Unknown [id number] 1950 Unknown [id number] 1950 Unknown [id number] [id number] 1950 Unknown [id number] [id number] 1950 Unknown [id number] Unknown Social History Date Type Detail Facility Start: 10-14-2018 End: 02-07-2020 No alcohol use No alcohol use [facility] Comment on above: 1 TEA DAILY; 1/2 PPD; Start: 10-14-2018 End: 03-25-2023 Tobacco smoking status SDIS Smokes tobacco daily [facility] History of tobacco use Cigarette Smoker C [facility] Start: 10-14-2018 End: 03-25-2023 Tobacco use and exposure Smokeless tobacco non-user [facility] Start: 04-21-2019 End: 02-07-2020 Tobacco use panel [facility] National Score (1-10 0), lower number is lower risk Not on file [facility] Start: 1950 Sex Assigned At Female C [facility] Start: 05-14-2022 Gender identity Identifies as female gender (finding) [facility] Start: 12-09-2022 Sexual orientation Heterosexual (fin ding) [facility] Start: 01-18-2023 End: 03-06-2023 Alcohol intake Ex-drinker (finding) [facility] Start: 1950 Sex Assigned At Not on file P [facility] Start: 12-26-2022 Tobacco smoking stat us SDIS Ex-smoker [facility] History of tobacco use Current smoker [facility] Medical Equipment Procedure Code Equipment Code Equipment Origin al Text Equipment Identifier Dates Inject 1 each un chano the skin in the morning and 1 each in the evening and 1 each before bedtime. [id number] Start: 07-22-2022 Goals Date Patient Goal Desired Activity /State Personal health goal Comment on above: Formatting of this n ote might be different from the original. Evaluation of progress towards goal: In progress: Return to [place]. Clinical Notes 12-08-2022 to 07-16-2023 Telephone Encounter - Jenny Haines - 07/16/2023 12:24 PM EDTTelephone Encounter - Jenny Haines - 07/16/2023 12:24 PM EDTTJah laughlin MD - 07/07/2023 10:54 AM EDT Note Date & Type Note Facility 07-16-2023 Telephone encounter Note Rec'd lab report from [employer] imported into [employer]. [facility] Work Phone: 07-16-2023 Miscellaneous Notes Rec'd lab report from [employer] imported into [employer]. documented in this encounter [facility] 07-14-2023 Telephone encounter Note Images from the original note were not included. Rec'd patient PT/INR results imported into [employer]. [facility] Work Phone: 07-14-2023 Miscellaneous Notes Images from the original note were not included. Rec'd patient PT/INR results imported into [employer]. documented in this encounter [facility] 07-07-2023 Note HNO ID: [id number] Author: JAH SHARPE MD Service: ? Author Type: Physician Type: Progress Notes Filed: 07/07/2023 17:09 Note Text: [facility] Established Outpatient Visit Lucila Tineo [facility]#: [id number] Date of Service: 07/07/2023 Primary Care Provider: Mily Andrade, HOG CONFINEMENT SYSTEM MANAGER [address] [place] [address] FOLLOW UP VISIT Chief complaint: Follow up for incidental unruptured brain aneurysm History of present illness: Ms. Veloz is a 73-year-old female with vascular risk factors, who presents for follow-up evaluation of an incidentally discovered unruptured brain aneurysm. The patient was residing in [place], and was found down on October 29, 2022. She had left-sided weakness and slurred speech. She was diagnosed with a right hemispheric acute stroke and admitted to the hospital for work-up. Reportedly atrial fibrillation was found as a possible stroke etiology, as well as atherosclerotic disease. The patient was eventually started on anticoagulation, in addition to dual antiplatelet therapy. 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 The patient then returned to [place], and she is still at a nursing facility, but regained some function on the left side of her body, and she is now able to walk with a walker and assistance. She still has significant visual field deficits, and residual left-sided weakness and numbness. Previously she was independent without significant neurologic deficits. She used to be a heavy smoker until the time of her stroke in September 2022. She had smoked for about 30 years. She also has hypertension and diabetes. According to the daughter, the patient remains on triple therapy with aspirin, Plavix and apixaban. She denies significant headaches. There is no family history of brain aneurysm, but her son had abdominal aortic aneurysm. Hypertension NA Coronary Artery Disease NA Diabetes Y Obesity NA Dyslipidemia NA Tobacco Use (Please Update Smoking History) Y Stroke NA Intracranial Aneurysm NA Past Medical History: ACTIVE PROBLEM LIST Uncontrolled Type 2 Diabetes Mellitus With Hyperglycemia (Hcc) Claudication (Hcc) Thoracic aortic aneurysm Unruptured brain aneurysm Hypertension Hypertension lipidemia Diabetes Ischemic stroke PAST SURGICAL HISTORY Procedure Laterality Date APPENDECTOMY HYSTERECTOMY Allergies: Penicillins Medications: Current Outpatient Medications Medication Sig rOPINIRole (REQUIP) 0.5 mg tablet Take 0.5 mg by mouth daily at bedtime. amLODIPine (NORVASC) 5 mg tablet Take 5 [...] Take 81 mg by mouth once daily. losartan (COZAAR) 25 mg tablet Take 50 [...] to the beginning of sedation, infusion, injection o (more content not included)... [facility] 07-07-2023 Note HNO ID: [id number] Author: JOSE A FLORES RN Service: Radiology Author Type: Registered Nurse Type: Progress Notes Filed: 07/07/2023 09:39 Note Text: Radiology Service Progress Note DATE OF SERVICE: July 07, 2023 TIME: 9:24 AM PATIENT WEIGHT: 134LBS PATIENT IDENTITY VERIFICATION COMPLETED USING TWO (2) [...] during this visit? [place] Risk Wristband Applied, Instructed Patient to Call for Help if Needed, and Offered Assistance with Transfers/Clothing PATIENT GENDER DATA: Female. status: : No status: NO. ALLERGIES: Reviewed and unchanged CONTRAST ALLERGY: No EXAM: CT -CONTRAST INDUCED NEPHROPATHY RISK FACTORS: Patient age > 60 years and Diabetic: Yes. Current medication(s): Insulin Glucose Monitoring: YES Scan Performed: YES. Patient currently has insulin pump?: No. CREATININE: Creatinine Date Value Ref Range Status 03/25/2023 0.60 0.58 - 0.96 mg/dL Final Creatinine (POCT) Date Value Ref Range Status 03/25/2023 0.60 (A) 0.7 - 1.4 mg/dL Final 09/20/2020 0.80 0.7 - 1.4 mg/dL Final Estimated Glomerular Filtration Rate Date Value Ref Range Status 03/25/2023 95 >=60 mL/min/1.73m? Final Comment: Estimated Glomerular Filtration Rate (eGFR) is calculated using the 2020 CKD-EPI creatinine equation. This equation utilizes serum creatinine, sex, and age as parameters. The creatinine assay has traceable calibration to isotope dilution-mass spectrometry. Refer to KDIGO guidelines for clinical interpretation. In patients with unstable renal function, e.g. those with acute kidney injury, the eGFR may not accurately reflect actual GFR. eGFR- (POCT) Date Value Ref Range Status 09/20/2020 >60 mL/min/1.73 m2 Final P.O.C.T. RESULTS: POC done: Yes, See Lab Tab July 07, 2023 istat not transferring, 0.7 creatinine, gfr >60 TREATMENT: No Hydration needed. IV SITE: Ambulatory: A peripheral IV was started in the Right antecubital site with a Angio cath: 20 gauge. IV SITE APPEARANCE: Clean,Dry and Intact SIGNATURE: Jose A Flores RN PATIENT NAME: Lucila Tineo DATE: July 07, 2023 TIME: 9:24 AM [facility] 07-07-2023 Note HNO ID: [id number] Author: BILLY BOATENG RT(R) Service: Radiology Author Type: Technologist Type: Progress Notes Filed: 07/07/2023 09:44 Note Text: Radiology Service Progress Note PATIENT NAME: Lucila Tineo DATE OF SERVICE: July 07, 2023 TIME: 9:37 AM PATIENT IDENTITY VERIFICATION COMPLETED USING TWO [...] place to prevent falls during this visit? Increased Observations by Caregivers PATIENT GENDER DATA: Female. status: : No status: NO. PATIENT RELEVANT IMPLANT DATA REVIEWED: Yes PATIENT PRESENTS WITH AN IMPLANTABLE OR ATTACHED PHYSICAL PLANT MANAGER: No RADIOLOGY DEPARTMENT: CT; Exam(s) Completed: Brain and CTA Brain PERIPHERAL IV DATA: Site assessment: Clean,Dry and Intact, Site disposition Discontinued SIGNED BY: RT Cande(Jett) July 07, 2023 9:37 AM [facility] 07-07-2023 History of Presen t illness Narrative [facility] Established Outpatient Visit Lucila Tineo [facility]#: [id number] Date of Service: 07/07/2023 Primary Care Provider: Mily Andrade, CHELITA [address] [facility] [address] FOLLOW UP VISIT Chief complaint: Follow up for incidental unruptured brain aneurysm History of present illness: Ms. Veloz is a 73-year-old female with vascular risk factors, who presents for follow-up evaluation of an incidentally discovered unruptured brain aneurysm. The patient was residing in [place], and was found down on October 29, 2022. She had left-sided weakness and slurred speech. She was diagnosed with a right hemispheric acute stroke and admitted to the hospital for work-up. Reportedly atrial fibrillation was found as a possible stroke etiology, as well as atherosclerotic disease. The patient was eventually started on anticoagulation, in addition to dual antiplatelet therapy. 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 The patient then returned to [place], and she is still at a nursing facility, but regained some function on the left side of her body, and she is now able to walk with a walker and assistance. She still has significant visual field deficits, and residual left-sided weakness and numbness. Previously she was independent without significant neurologic deficits. She used to be a heavy smoker until the time of her stroke in September 2022. She had smoked for about 30 years. She also has hypertension and diabetes. According to the daughter, the patient remains on triple therapy with aspirin, Plavix and apixaban. She denies significant headaches. There is no family history of brain aneurysm, but her son had abdominal aortic aneurysm. Hypertension NA Coronary Artery Disease NA Diabetes Y Obesity NA Dyslipidemia NA Tobacco Use (Please Update Smoking History) Y Stroke NA Intracranial Aneurysm NA Past Medical History: ACTIVE PROBLEM LIST Uncontrolled Type 2 Diabetes Mellitus With Hyperglycemia (Hcc) Claudication (Hcc) Thoracic aortic aneurysm Unruptured brain aneurysm Hypertension Hypertension lipidemia Diabetes Ischemic stroke PAST SURGICAL HISTORY Procedure Laterality Date APPENDECTOMY HYSTERECTOMY Allergies: Penicillins Medications: Current Outpatient Medications Medication Sig rOPINIRole (REQUIP) 0.5 mg tablet Take 0.5 mg by mouth daily at bedtime. amLODIPine (NORVASC) 5 mg tablet Take 5 [...] Take 81 mg by mouth once daily. losartan (COZAAR) 25 mg tablet Take 50 [...] in the CT contrast administration guidelines link. (Patient not taking: Reported on 07/07/2023) iv contrast (will be provided with radiology [...] in the CT contrast administration guidelines link. (Patient not taking: Reported on 07/07/2023) iv contrast (will be provided with radiology [...] in the CT contrast administration guidelines link. (Patient not taking: Reported on 07/07/2023) No current facility-administered medications for this visit. [...] Psychiatric: Positive for anxiety. Patient Entered Questionnaires 12/15/2022 Health Status Impact by Stroke or CVD Impact To a great extent 07/05/2023 Health Status Change Since Last Visit Change Much improved PROMIS/NeuroQoL Score Percentiles 07/05/2023 12/15/2022 Physical Health Physical Function Percentile 4 0 Sleep Percentile 27* 27* Fatigue Percentile 79 5 Pain Interference Percentile 12 12 07/05/2023 PROMIS SOCIAL ROLE SCORE Social Role Satisfaction Percentile 1 07/05/2023 12/15/2022 Mental Health NeuroQol Cognitive Function Percentile 16* 2 General Self-Efficacy Percentile 5 8 07/05/2023 12/15/2022 PROMIS Global Health Scale Physical Health Percentile 7 4 Mental Health Percentile 13 13 Percentiles provide an indication of how a patient's score ranks in relation to the [place] general population. > 31st percentile is within normal limits or better * < 31st percentile is at least SD worse than population, which may be clinically relevant < 16th percentile is at least 1 SD worse than population and warrants attention Descriptive Summary for PROMIS Physical Function T-score = 32 (Percentile 4) Unable - Do 2 hours of physical labor Unable - Walk at a normal speed. Depression Screenin07/05/2023 12/15/2022 PHQ-9 Score 6 10 Self-Harm Response Not at all Not at all PHQ-9 Scores: PHQ-9 Self-Harm (Item 9) Response: 0 - 9 No to Mild depression 0 - Not at all 10 - 14 Moderate depression 1 - Several Days > 15 Severe depression 2 - More than half the days 3 - Nearly every day 12/15/2022 Sleep Apnea Probability Score Probability (%) 29 (Sleep study not recommended) PHYSICAL EXAMINATION BP 123/52 (BP Site: Right Arm, BP Position: Sitting, BP Cuff Size: Small Adult) Pulse 85 Ht 162.6 cm (5' 4 ) Wt 60.8 kg (134 lb) SpO2 96% BMI 23.00 kg/m General: Not in acute distress, pleasant elderly female, well-developed, well-nourished in a wheelchair Head: atraumatic, normocephalic Eyes: No scleral icterus, no conjunctival injection Neck: Normal neck range of motion Extremities: No edema, clubbing. Skin: No significant bruising or rash Neurological: Mental status: Alert, awake and oriented x3. Speech, language, attention span are intact. Slightly decreased memory. Left-sided neglect and extinction noted. Cranial nerves: Bilateral incongruent peripheral visual field deficits, more significant on the left side. EOMI. Facial sensation decreased on the left side. Trace left facial asymmetry. Decreased left shoulder shrug. Motor: Left hemiparesis with antigravity movements on the left side. Limited left hand fine motor skills. Sensory: Decreased sensation on the left side of the body with extinction and mild neglect Coordination: Limited by weakness on the left side Gait: Deferred. Reportedly walks with a walker and one-person assistance. Currently in a wheelchair. IMAGING CT/CTA head July 2023: ON MY REVIEW, right posterior MCA territory and left RETAIL STOCKER territory encephalomalacia representing prior stroke. Stable overall size of the previously described calcified and partially thrombosed left middle cerebral bifurcation aneurysm. However, the filling portion of the aneurysm has increased in size since prior CTA in September 2022. OSH CTA head and neck September 2022: [...] and Scales Ischemic or TIA: Ischemic Stroke Modified Reina Score: Score: 4 NIH Stroke Scale: LOC: 0 LOC Questions: 0 LOC Commands: 0 LOC Normal Gaze: 0 Visual Corona: 2 Facial Palsy: 1 Motor Left Arm: 1 Motor Right Arm: 0 Motor Left Le Motor Right Le Limb Ataxia: 0 Sensory: 2 Language: 0 Dysarthria: 0 Extinction/Neglect: 1 Total Daily NIHSS: 8 Cerebrovascular Disease w/o Stroke Event: Unruptured Aneurysm IMPRESSION 1. Incidental unruptured brain aneurysm. Found during work-up for stroke in 2022. Imaging demonstrated a partially thrombosed left middle cerebral artery bifurcation aneurysm that remained stable in size overall, however, the filling portion has increased since last imaging. This is most likely due to the fact that the patient has been on triple therapy with anticoagulation and antiplatelet therapy. The aneurysm's calcified ring is highly suggestive of a chronic lesion, but patient does not have previous imaging to compare. She is asymptomatic from the aneurysm standpoint, and her recent stroke was unrelated to the aneurysm. Discussed natural history and rupture risk with patient and her daughter. Normally this aneurysm would be considered for treatment, however, the patient is still recovering from a 2022 stroke with residual deficits requiring assistance. A diagnostic cerebral angiogram, for treatment planning, is a consideration once she is in a condition to undergo the procedure. The family would like to re-discuss this option, and they will decide about continued conservative management versus possible diagnostic angiogram. All questions were answered. 2. Ischemic strokes. Reportedly atrial fibrillation was found as the most likely etiology of her strokes in 2022, and she has been on antiplatelet and anticoagulation therapy. I recommend continuing anticoagulation and low-dose aspirin, but discontinuing clopidogrel therapy to avoid long-term bleeding risk. PLAN Patient is deciding about possible angiography for subsequent aneurysm treatment planning versus continued medical management. See discussion above. Continue apixaban and low-dose aspirin. Discontinue clopidogrel therapy. Blood pressure and vascular risk factor control Questions asked/ answered. Follow-up with results/ adherence to plan/ continued education. SIGNATURE Jah Sharpe MD July 07, 2023 documented in this encounter [facility] 07-07-2023 History of Presen t illness Narrative Radiology Service Progress Note DATE OF SERVICE: July 07, 2023 TIME: 9:24 AM PATIENT WEIGHT: 134LBS PATIENT IDENTITY VERIFICATION COMPLETED USING TWO (2) [...] during this visit? [place] Risk Wristband Applied, Instructed Patient to Call for Help if Needed, and Offered Assistance with Transfers/Clothing PATIENT GENDER DATA: Female. status: : No status: NO. ALLERGIES: Reviewed and unchanged CONTRAST ALLERGY: No EXAM: CT -CONTRAST INDUCED NEPHROPATHY RISK FACTORS: Patient age > 60 years and Diabetic: Yes. Current medication(s): Insulin Glucose Monitoring: YES Scan Performed: YES. Patient currently has insulin pump?: No. CREATININE: Creatinine Date Value Ref Range Status 03/25/2023 0.60 0.58 - 0.96 mg/dL Final Creatinine (POCT) Date Value Ref Range Status 03/25/2023 0.60 (A) 0.7 - 1.4 mg/dL Final 09/20/2020 0.80 0.7 - 1.4 mg/dL Final Estimated Glomerular Filtration Rate Date Value Ref Range Status 03/25/2023 95 >=60 mL/min/1.73m Final Comment: Estimated Glomerular Filtration Rate (eGFR) is calculated using the 2020 CKD-EPI creatinine equation. This equation utilizes serum creatinine, sex, and age as parameters. The creatinine assay has traceable calibration to isotope dilution-mass spectrometry. Refer to KDIGO guidelines for clinical interpretation. In patients with unstable renal function, e.g. those with acute kidney injury, the eGFR may not accurately reflect actual GFR. eGFR- (POCT) Date Value Ref Range Status 09/20/2020 >60 mL/min/1.73 m2 Final P.O.C.T. RESULTS: POC done: Yes, See Lab Tab July 07, 2023 istat not transferring, 0.7 creatinine, gfr >60 TREATMENT: No Hydration needed. IV SITE: Ambulatory: A peripheral IV was started in the Right antecubital site with a Angio cath: 20 gauge. IV SITE APPEARANCE: Clean,Dry and Intact SIGNATURE: Jose A Flores RN PATIENT NAME: Lucila Tineo DATE: July 07, 2023 TIME: 9:24 AM Radiology Service Progress Note PATIENT NAME: Lucila Tineo DATE OF SERVICE: July 07, 2023 TIME: 9:37 AM PATIENT IDENTITY VERIFICATION COMPLETED USING TWO [...] place to prevent falls during this visit? Increased Observations by Caregivers PATIENT GENDER DATA: Female. status: : No status: NO. PATIENT RELEVANT IMPLANT DATA REVIEWED: Yes PATIENT PRESENTS WITH AN IMPLANTABLE OR ATTACHED PHYSICAL PLANT MANAGER: No RADIOLOGY DEPARTMENT: CT; Exam(s) Completed: Brain and CTA Brain PERIPHERAL IV DATA: Site assessment: Clean,Dry and Intact, Site disposition Discontinued SIGNED BY: RT Cande(Jett) July 07, 2023 9:37 AM documented in this encounter [facility] 04-29-2023 Miscellaneous Notes Apt ok per RA PT daughter (Alex) would rather not schedule a PFT at this time for her mother documented in this encounter [facility] 04-29-2023 Telephone encounter Note Apt ok per RA PT daughter (Alex) would rather not schedule a PFT at this time for her mother [facility] 03-25-2023 Note HNO ID: [id number] Author: KRISTI MARTINEZ RT(R) Service: Radiology Author [...] PERIPHERAL IV DATA: Not applicable SIGNED BY: TYRONE Aragon) March 25, 2023 12:47 PM [facility] 03-25-2023 Note HNO ID: [id number] Author: BRO HAWK MD Service: ? Author Type: Physician Type: Progress Notes Filed: 03/25/2023 11:09 Note Text: Heart , Vascular and Thoracic [place] DEPARTMENT OF VASCULAR SURGERY OUTPATIENT VISIT DATE [...] stable taaa. N (more content not included)... [facility] 03-25-2023 Note HNO ID: [id number] Author: SEPIDEH TOVAR RN Service: Nursing Author [...] DATE: March 25, 2023 TIME: 9:59 AM [facility] 03-25-2023 Note HNO ID: [id number] Author: FRANK COLEMAN RT(Jett) Service: Radiology Author Type: Technologist Type: Progress [...] RT Monica(R) March 25, 2023 10:19 AM [facility] 03-06-2023 History of Presen t illness Narrative Lucila Tineo Date of visit: 03/06/2023 Date of : 1950 Age: 73 y.o. Patient Active Problem List Diagnosis Bilateral carotid artery stenosis Thoracic aortic aneurysm without rupture ([facility]) PAD (peripheral artery disease) ([facility]) Claudication ([facility]) Lumbar radiculopathy, chronic Fall, initial encounter 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 ([facility]) Uncontrolled type 2 diabetes mellitus with hyperglycemia ([facility]) HLD (hyperlipidemia) History of stroke COPD (chronic obstructive pulmonary disease) ([facility]) ASCVD (arteriosclerotic cardiovascular disease) High anion gap metabolic acidosis Left middle cerebral artery aneurysm JEYSON (acute kidney injury) ([facility]) Elevated troponin Essential hypertension Fecal impaction ([facility]) Stercoral colitis Paroxysmal atrial fibrillation ([facility]) Allergies Allergen Reactions Penicillins Hives [...] that were known and followed conservatively by [facility]. She has been started on Eliquis. She [...] aneurysm that is followed by vascular in [place]. She has not been back to [place] in some time. A repeat CTA of the abdomen and pelvis that was not a dedicated CTA study was done here in [place] and reported 4.9 cm aneurysm. I do not see the last assessment in [place] but there is a reading from 2020 42 mm. I am not sure whether getting the measurement of 4.9 cm on the study here. There is a lot of artifact and I see measurements that may be 44-45 mm but not clearly 49. Past Medical History: Diagnosis Date JEYSON (acute kidney injury) ([facility]) 01/16/2023 Cancer ([facility]) Chronic pain disorder Descending aortic aneurysm ([facility]) Diabetes mellitus type 2, controlled ([facility]) Emphysema of lung ([facility]) Former smoker Hypertension Low back pain NSTEMI, initial episode of care ([facility]) PAD (peripheral artery disease) ([facility]) 11/19/2020 Skin cancer Spinal stenosis of lumbar region with neurogenic claudication Stroke ([facility]) Uncontrolled type 2 diabetes mellitus with hyperglycemia ([facility]) 01/08/2021 No data recorded No data recorded No data recorded Past Surgical History: Procedure Laterality Date APPENDECTOMY CARPAL TUNNEL RELEASE CYST REMOVAL HYSTERECTOMY INJECTION BLOCK EPIDURAL CAUDAL STEROID N/A 05/09/2022 Performed by Bruce Mcgregor MD at [facility] SKIN CANCER EXCISION TONSILLECTOMY Family History Problem [...] with M2 vessel cut off, diagnosed in [place], [place] 2. Primary hypertension 3. Hyperlipidemia 4. Type 2 diabetes , DKA 5. Elevation. Non-STEMI 2020 with catheterization revealing thrombotic/chronic occlusion of the RCA with attempted stent at the time. 5. ASCVD with NSTEMI 2020; LHC 2020 with thrombotic/chronic occlusion of the RCA and attempted stent 7. Aneurysmal dilatation of descending thoracic aorta measuring up to 4.9 cm in width by vascular in [place], unclear if 4.9 cm as an accurate measurement and was not as enlarged on prior study in [place]. 9. Ascending aortic enlargement/aneurysm 10. Unruptured middle [...] that works here at [facility] that she should get evaluated again by [place] in an expedited fashion. I am not certain that the descending thoracic aorta is truly 4.9 cm but if this is the case, this is a rapid progression compared to previous and likely merits intervention at this point. I think she will likely need a dedicated study. I think [place] will prefer that they get a CTA there for planning. I only see the aorta closer to 4.5 cm I would nonetheless want her to make sure she meet with vascular. TODAYS ORDERS No orders of the defined types were placed in this encounter. FOLLOW UP Return in about 4 months (around 07/05/2023). PCP: MARILYN HEARD Referring Physician: MARILYN Heard [address] [facility], [address] [address] documented in this encounter [facility] 03-05-2023 Miscellaneous Notes Left message for patient to remind them to bring their most current medication list with them to their appointment. documented in this encounter [facility] 03-05-2023 Telephone encounter Note Left message for patient to remind them to bring their most current medication list with them to their appointment. [facility] 01-02-2023 Miscellaneous Notes Voice mail left for daughter to discuss plan of care for follow up of cerebral aneurysm as discussed with Dr Sharpe at appointment. Imaging in 6 months versus cerebral angiogram. Requested daughter to either call this office or send a D square nv Chart message with preference documented in this encounter [facility] 12-16-2022 Note HNO ID: [id number] Author: Jah Sharpe MD Service: ? Author Type: Physician Type: Progress Notes Filed: 12/16/2022 6:24 PM Note Text: [facility] Virtual Visit Lucila Pierce Rivka [facility]#: [id number] Date of Service: 12/16/2022 Primary Care Provider: Mily Andrade CNP [address] [facility] [address] The patient was referred by Osei Roe [...] brain aneurysm. The patient was residing in [place], and was found down on October 29, [...] stroke work-up. The patient then returned to [place], and she is still at a nursing [...] Discontinue saline lo (more content not included)... [facility] 12-16-2022 History of Presen t illness Narrative [facility] Virtual Visit Lucila Stan Tineo [facility]#: [id number] Date of Service: 12/16/2022 Primary Care Provider: Mily Andrade, HOG CONFINEMENT SYSTEM MANAGER [address] [facility] [address] The patient was referred by Osei Roe [...] brain aneurysm. The patient was residing in [place], and was found down on October 29, [...] stroke work-up. The patient then returned to [place], and she is still at a nursing [...] Disease w/o Stroke Event: Unruptured Aneurysm Modified [place] Score: Score: 4 NIH Stroke Scale: LOC: [...] OSEI ROE [address] [place] [address] Mily Andrade [address] [place] [address] documented in this encounter [facility] 12-08-2022 Miscellaneous Notes Images from the original note were not included. OSH imaging/records received from [facility]: December 08, 2022 -12.02.22 Dr. Roe Progress Notes scanned to chart. -Medical Hx & Imaging Reports available in Care Everywhere. Received confirmation email from Caio that imaging hs been uploaded--per dropping off disc to imaging library to upload as I wasn't able to + kept getting error per below. Images from the original note were not included. OSH imaging/records received from [facility]: December 04, 2022 -12.02.22 Dr. Roe Progress Notes scanned to chart. PENDING: -2022 Imaging -Medical Hx & Imaging Reports Walked discs over to imaging library + gave to Adry to upload MAGDALENE. Successfully sent CARRI & [employer] overnight label via [employer]~ Tracking#[id number] December 05, 2022 10:30 AM 07 [employer] Priority Overnight $14.14 From: Theresa mabry Last change on 12/04/2022 12:16:46 pm Sent on 12/04/2022 12:16:33 pm Completed ENDOVASCULAR INTAKE Patient name: Lucila Tineo Confirm Diagnosis/RFV (Reason for Visit): Aneurysm Is this a self-referral? no, who is the referring provider : Osei Roe [email or web address] in [facility], [place]/His direct office number if any questions: [phone] Is this a direct referral? yes neurosurgeon Have you been recommended for surgery or procedure? Yes. coiling Are you seeking a second opinion? Yes. Do you have a MRI/MRA/CT/Ultrasound for this diagnosis? Yes. Type of imaging CT's, name/address of facility where completed [facility]. [Only has reports in folder, no images] [...] if any questions. documented in this encounter [facility] Evaluation note Diagnosis Unruptured cerebral aneurysm- Primary Cerebral aneurysm, nonruptured Ischemic stroke (HCC) Hypertension, unspecified type Hyperlipidemia, unspecified hyperlipidemia type Smoking Tobacco use disorder [facility] Diagnosis Essential hypertension- Primary Unspecified essential hypertension Paroxysmal atrial fibrillation ([facility]) Atrial fibrillation documented [facility]* Diagnosis Calcified granuloma of lung (CMS-HCC)- Primary documented in this encounter [facility]* Diagnosis Unruptured cerebral aneurysm- Primary Cerebral aneurysm, nonruptured Hypertension, unspecified type Hyperlipidemia, unspecified hyperlipidemia type Atrial fibrillation, unspecified type (HCC) Ischemic stroke (HCC) [facility] Diagnosis Nonruptured cerebral aneurysm Cerebral aneurysm, nonruptured [facility] Diagnosis Unruptured cerebral aneurysm- Primary Cerebral aneurysm, nonruptured Encounter for monitoring antiplatelet therapy Encounter for therapeutic drug monitoring [facility] N[facility]ative* The patient presents [...] medication regimen. She denies medication side effects. [facility] Work Phone: InstructionsNot on filedocumented in this encounter [facility] SystemInstructionsNot on filedocumented in this encounter [facility] SystemInstructionsNot on filedocumented in this encounter [facility] Summary Purpose Family History No Family History Records FoundUnknown Family Member Name Dates Details Essential hypertension, allison gn: Brother Status:Active Family history of lung cance r: Father(V16.1, Z80.1) Status:Active Unknown Family Member Name Dates Details Essential hypertension, allison gn: Brother Status:Active Family history of lung cance r: Father(V16.1, Z80.1) Status:Active Unknown Family Member Name Dates Details Essential hypertension, alliosn gn: Brother Status:Active Family history of lung [...] FoundDocuments on File Type Date Recorded Patient Tribal Council Member Expl anation DNR Physician Order 02/13/2023 4:38 PM Latest Code Status on File Code Status Date Activated Date Inactivated Comments DNR Comfort Care Arrest (DNR -CCA) [place] 01/16/2023 12:33 PM 01/21/2023 2:44 PM Code [...] hospitalized overnight and treated with infusion. [facility] minimally elevated troponin. [...] medical therapies, will follow-up in 1 year Reason for Referral Specialty Diagnoses / Procedures Referred By Clemente jones Referred To Contact CT IMAGING Diagnoses Nonruptured cerebral aneurysm Procedures CTA HEAD WO/W IVCON CT ANGIOGRAPHY HEAD W/CONTRAST/NONCONTRAST Jeffery Gordon, DORYS.HOG CONFINEMENT SYSTEM MANAGER [id number] [facility] [place] [address] Referral ID Status Reason Start Date Expiration Date V isits Requested Visits Authorized [id number] Closed Auto-Generate d Referral 04/08/2023 05/07/2024 1 1 Additional Source Comments INFORMATION SOURCE (unrecogn ized section and content) DATE CREATED AUTHOR 08/20/[address] [facility] DATE CREATED AUTHOR AUTHOR'S ORGANIZ ATION 03/11/2021 [facility] DATE CREATED AUTHOR AUTHOR'S ORGANIZ ATION 12/11/2021 [facility] DATE CREATED AUTHOR AUTHOR'S ORGANIZ ATION 12/11/2021 [employer] DATE CREATED AUTHOR AUTHOR'S ORGANIZ ATION 04/26/2022 [facility] dical Specialist DATE CREATED AUTHOR AUTHOR'S ORGANIZ ATION 03/08/2023 [facility] DATE CREATED AUTHOR AUTHOR'S ORGANIZ ATION 04/28/2023 [facility] dical Specialists [facility] DATE CREATED AUTHOR AUTHOR'S ORGANIZ ATION 06/27/2023 [facility] DATE CREATED AUTHOR AUTHOR'S ORGANIZ ATION 07/18/2023 [facility] Source Comments (unrecognize d section and content) In the event this informatio n is protected by the Federal Confidentiality of Alcohol and Drug Abuse Patient Records regulations: The Federal rules restrict any use of the information to criminally investigate or prosecute any alcohol or drug abuse patient.[facility] the event this information is protected by the Federal Confidentiality of Alcohol and Drug Abuse Patient Records regulations: The Federal rules restrict any use of the information to criminally investigate or prosecute any alcohol or drug abuse patient.[facility] the event this information is protected by the Federal Confidentiality of Alcohol and Drug Abuse Patient Records regulations: The Federal rules restrict any use of the information to criminally investigate or prosecute any alcohol or drug abuse patient.[facility] the event this information is protected by the Federal Confidentiality of Alcohol and Drug Abuse Patient Records regulations: The Federal rules restrict any use of the information to criminally investigate or prosecute any alcohol or drug abuse patient.[facility] the event this information is protected by the Federal Confidentiality of Alcohol and Drug Abuse Patient Records regulations: The Federal rules restrict any use of the information to criminally investigate or prosecute any alcohol or drug abuse patient.[facility] the event this information is protected by the Federal Confidentiality of Alcohol and Drug Abuse Patient Records regulations: The Federal rules restrict any use of the information to criminally investigate or prosecute any alcohol or drug abuse patient.[facility]stown[facility] the event this information is protected by the Federal Confidentiality of Alcohol and Drug Abuse Patient Records regulations: The Federal rules restrict any use of the information to criminally investigate or prosecute any alcohol or drug abuse patient.[facility] the event this information is protected by the Federal Confidentiality of Alcohol and Drug Abuse Patient Records regulations: The Federal rules restrict any use of the information to criminally investigate or prosecute any alcohol or drug abuse patient.[facility] the event this information is protected by the Federal Confidentiality of Alcohol and Drug Abuse Patient Records regulations: The Federal rules restrict any use of the information to criminally investigate or prosecute any alcohol or drug abuse patient.[facility] the event this information is protected by the Federal Confidentiality of Alcohol and Drug Abuse Patient Records regulations: The Federal rules restrict any use of the information to criminally investigate or prosecute any alcohol or drug abuse patient.[facility] the event this information is protected by the Federal Confidentiality of Alcohol and Drug Abuse Patient Records regulations: The Federal rules restrict any use of the information to criminally investigate or prosecute any alcohol or drug abuse patient.[facility] the event this information is protected by the Federal Confidentiality of Alcohol and Drug Abuse Patient Records regulations: The Federal rules restrict any use of the information to criminally investigate or prosecute any alcohol or drug abuse patient.[facility] the event this information is protected by the Federal Confidentiality of Alcohol and Drug Abuse Patient Records regulations: The Federal rules restrict any use of the information to criminally investigate or prosecute any alcohol or drug abuse patient.[facility] Reason for Visit (unrecogniz ed section and content) Reason Comments Future Appointment New Patient, [place], Any Reason Comments Unruptured Aneurysm Reason Comments Staff Nurse Midwife - Other Reason Comments Follow-up EST PT IP [place] 3 0 DAY EM POSSIBLE AFIB SCHED W/ALBA PT DAUGHTER ALEX AND PT KNOWS SHE IS OOP Reason Comments Established Patient Established NI Patie nt Reason Comments Radiology CT Specialty Diagnoses / Procedures Referred By Contac t Referred To Contact CT IMAGING Diagnoses Nonruptured cerebral aneurysm Procedures CTA HEAD WO/W IVCON CT ANGIOGRAPHY HEAD W/CONTRAST/NONCONTRAST Jeffery Gordon APRN.HOG CONFINEMENT SYSTEM MANAGER [address] [place] [address] [place] [address] Referral ID Status Reason Start Date Expiration Date V isits Requested Visits Authorized [id number] Closed Auto-Generate d Referral 04/08/2023 05/07/2024 1 1 Reason Comments Unruptured Aneurysm Diagnostic Cerebral Angiogram Reason Comments Results PT-INR Results Reason Comments Received Outside Medical Records Rec'd l ab report from [employer] imported into [employer]. Care Teams (unrecognized sec tion and content) Computer Teacher Relationship Specialty Start Date End Date Mily Andrade CNP [address] [place] [address] PCP - General Family Medicine 09/29/18 Osei Roe [address] [place] [address] Referring Neurology 12/04/22 Computer Teacher Relationship Specialty Start Date End Date Mily Andrade CNP [address] [place] [address] PCP - General Family Medicine 09/29/18 Osei Roe [address] [place] [address] Referring Neurology 12/04/22 Computer Teacher Relationship Specialty Start Date End Date Mily Andrade CNP [address] [place] [address] PCP - General Family Medicine 09/29/18 Osei Roe [address] [place] [address] Referring Neurology 12/04/22 Computer Teacher Relationship Specialty Start Date End Date Mily Andrade CNP [address] [place] [address] PCP - General Family Medicine 09/29/18 Osei Roe [address] [place] [address] Referring Neurology 12/04/22 Computer Teacher Relationship Specialty Start Date End Date Mily Andrade APRN-CHELITA [address] [place] [address] PCP - General Internal Medicine 08/06/20 Computer Teacher Relationship Specialty Start Date End Date Miyl Andrade APRN-HOG CONFINEMENT SYSTEM MANAGER [address] [place] [address] PCP - General Internal Medicine 08/06/20 Computer Teacher Relationship Specialty Start Date End Date Chyna Portillo DO [address] [place] [address] PCP - [employer] 03/02/20 Corrie Coley MD [address] [facility] [place] [address] PCP - General Family Medicine 03/26/23 Computer Teacher Relationship Specialty Start Date End Date Mily Andrade APRN-HOG CONFINEMENT SYSTEM MANAGER [address] [place] [address] PCP - General Internal Medicine 08/06/20 Computer Teacher Relationship Specialty Start Date End Date Mily Andrade APRN-HOG CONFINEMENT SYSTEM MANAGER [address] [facility] [place] [address] PCP - General Internal Medicine 08/06/20 Computer Teacher Relationship Specialty Start Date End Date Mily Andrade CNP [address] [facility] [place] [address] PCP - General Family Medicine 09/29/18 Osei Roe MD [address] [place] [address] Referring Neurology 12/04/22 Computer Teacher Relationship Specialty Start Date End Date Mily Andrade CNP [address] [facility] [place] [address] PCP - General Family Medicine 09/29/18 Osei Roe MD [address] [facility] [address] [place] [address] Referring Neurology 12/04/22 Computer Teacher Relationship Specialty Start Date End Date Mily Andrade CNP [address] [place] [facility] [place] [address] PCP - General Family Medicine 09/29/18 Osei Roe MD [address] [facility] [address] [place] [address] Referring Neurology 12/04/22 Computer Teacher Relationship Specialty Start Date End Date Mily Andrade CNP [address] [place] [address] PCP - General Family Medicine 09/29/18 Osei Roe MD [address] [facility] [address] [place] [address] Referring Neurology 12/04/22 Computer Teacher Relationship Specialty Start Date End Date Mily Andrade CNP [address] [place] [place] [address] PCP - General Family Medicine 09/29/18 Osei Roe MD [address] [facility] [address] [place] [address] Referring Neurology 12/04/22 Computer Teacher Relationship Specialty Start Date End Date Mily Andrade CNP [address] [place] [address] PCP - General Family Medicine 09/29/18 Osei Roe MD [address] [place] [address] Referring Neurology 12/04/22 FOR RECORDS PERTAINING TO PATIENTS WHO ARE [...] BE BASED ON THE PRIMARY CLINICAL RECORDS. [employer] provides no warranty or guarantee of the accuracy or completeness of information in this document.
[2023-09-29 08:22] LABS: Basophils Absolute Auto 0.1 10^3/uL (0.0-0.1); Basophils Percent Auto 0.8 % (0.2-2.0); Eosinophils Absolute Auto 0.1 10^3/uL (0.0-0.7); Eosinophils Percent Auto 1.1 % (0.9-7.0); Hematocrit 36.3 % (36.0-48.0); Hemoglobin 11.8 g/dL (12.0-16.0); Immature Granulocytes Abs Auto 0.01 10^3/uL (0.00-0.03); Immature Granulocytes Pct Auto 0.2 % (0.0-0.5); Lymphocytes Absolute Auto 1.6 10^3/uL (1.2-3.8); Lymphocytes Percent Auto 25.5 % (20.5-60.0); Mean Corpuscular HGB Conc 32.5 g/dL (29.9-35.2); Mean Corpuscular Hemoglobin 28.4 pg (26.7-34.0); Mean Corpuscular Volume 87.3 fL (81.0-99.0); Mean Platelet Volume 10.4 fL (9.5-13.5); Monocytes Absolute Auto 0.4 10^3/uL (0.3-0.8); Monocytes Percent Auto 5.8 % (1.7-12.0); Neutrophils Absolute Auto 4.2 10^3/uL (1.4-6.5); Neutrophils Percent Auto 66.6 % (43.0-75.0); Platelet Count 250 10^3/uL (150-450); Red Blood Count 4.16 10^6/uL (4.20-5.40); Red Cell Distribution Width 16.1 % (11.0-15.0); White Blood Count 6.4 10^3/uL (4.0-11.0)
[2023-09-29 08:23] LABS: Glucometer 99 mg/dL (74-106)
[2023-09-29 08:36] LABS: Prothrombin Time 10.6 sec (9.0-11.6)
[2023-09-29 08:42] LABS: Alanine Aminotransferase 28 U/L (14-59); Albumin Globulin Ratio 0.8; Albumin Level 3.2 g/dL (3.4-5.0); Alkaline Phosphatase 113 U/L (46-116); Anion Gap 13.2; Aspartate Amino Transferase 23 U/L (15-37); BUN Creatinine Ratio 22.3; Bilirubin Total 0.6 mg/dL (0.2-1.0); Calcium 8.7 mg/dL (8.5-10.1); Carbon Dioxide 26.9 mmol/L (21.0-32.0); Chloride 107 mmol/L (98-107); Estimated GFR (African America >60 (>=60); Estimated GFR (Non-African Ame 58 (>=60); Globulin 3.8 g/dL; Glucose 164 mg/dL (74-106); Potassium 4.1 mmol/L (3.5-5.1); Sodium 143 mmol/L (136-145)
[2023-09-29] MEDS: 0.9 % SODIUM CHLORIDE 1,000 ML 1000 ML IV (08:42)
[2023-09-29 08:44] LABS: Lactate/Lactic Acid 1.2 mmol/L (0.4-2.0); Troponin I High Sensitivity 14.5 pg/mL (4.0-51.3)
[2023-09-29 09:35] LABS: Bilirubin Urine NEGATIVE (NEGATIVE); Blood Urine TRACE-I (NEGATIVE); Clarity Urine CLEAR (CLEAR); Color Urine LT. YELLOW (YELLOW); Glucose Urine UA >=1000 mg/dL (NEGATIVE); Ketones Urine NEGATIVE (NEGATIVE); Leukocyte Esterase Urine NEGATIVE (NEGATIVE); Nitrite Urine NEGATIVE (NEGATIVE); Protein Urine NEGATIVE (NEG/TRACE); Urobilinogen Urine 0.2 EU/dL (0.2-1.0); pH Urine 7.5 (5.0-9.0)
[2023-09-29 09:57] LABS: Urine Microscopic Indicated YES
--- NOTE | 2023-09-29 10:09 | ED.AMS1 ---
HPI - Altered Mental Status General Chief Complaint: Altered Mental Status Stated Complaint: CONFUSION/ GENERAL WEAKNESS Time Seen by Provider: 09/29/23 08:06 Source: patient and family Mode of arrival: ambulance Limitations: no limitations History of Present Illness HPI narrative: This patient comes to us from the [place]. She had altered mentation today. They checked her sugar and it was low. They called the squad to bring her here in the was even lower. The squad gave oral glucose but they did not give any D50. However even with the oral glucose she improved dramatically she has a diabetic and was just recently approximately 2 to 3 weeks ago according to her family's history started on Jardiance because elevation of her resting glucose and elevation of her hemoglobin A1c. She says she does not know if she had enough carbohydrate yesterday but she has been actually eating pretty good. She has a history of large right hemispheric stroke. Normally she is very awake cognizant coherent and a good historian. Family is here confirming that information. As it turns out several days ago she also had a event where she slid or fell to the floor. She is really not complaining any headache at this time. She has not been vomiting. Related Data Allergies Allergy/AdvReac Type Severity Reaction Status Date / Time Penicillins Allergy Severe Hives Verified 09/29/23 08:13 Exam Narrative Exam Narrative: Awake alert [place] x 3 GCS is 15 her skin is warm and dry she is not clammy or diaphoretic. There is no evidence of CSF otorrhea or rhinorrhea. There is no hemotympanum. Her neck is not tender. She has no headache. Her lungs were clear with no wheeze rales or rhonchi heart sounds are normal. Abdomen is benign. She does have some residual weakness on the left side from her previous right-sided stroke. There are no other injury true her trunk torso or extremities and she is not displaying any change in her mental status. Constitutional Vital Signs, click to edit/add: Last Vital Signs Temp 98.3 F 09/29/23 08:04 Pulse 87 09/29/23 08:04 Resp 16 09/29/23 08:04 BP 159/88 H 09/29/23 08:04 Pulse Ox 98 09/29/23 08:05 O2 Del Method Room Air 09/29/23 08:05 Course Vital Signs Vital signs: Vital Signs Temperature 98.3 F 07/30/24 08:04 Pulse Rate 87 09/29/23 08:04 Respiratory Rate 16 09/29/23 08:04 Blood Pressure 159/88 H 09/29/23 08:04 Pulse Oximetry 96 09/29/23 08:04 Oxygen Delivery Method Room Air 09/29/23 08:04 Temperature 98.3 F 09/29/23 08:04 Pulse Rate 87 09/29/23 08:04 Respiratory Rate 16 09/29/23 08:04 Blood Pressure 159/88 H 09/29/23 08:04 Pulse Oximetry 98 09/29/23 08:05 Oxygen Delivery Method Room Air 09/29/23 08:05 MDM - Altered Mental Status MDM Narrative Medical decision making narrative: This patient had a fall earlier this week. She just finished up a course of antibiotics for urinary tract infection that was diagnosed at her care facility. Family does not have any information of whether a culture was done. Because the fall we went ahead and did a CT scan which shows the old right posterior cerebral stroke and also an area that appears to be a calcified brain aneurysm on the left side. Fortunately the family has all of her medical records and this brain aneurysm has been diagnosed previously. She is actually been to the [facility] and talk to neurosurgery about resection but the family and the patient have agreed that they do not want any intervention done on the aneurysm that she has. Additionally when we do a chest x-ray there is a widened mediastinum. Again this is something the family has been aware of they have talked to cardiothoracic surgeons and they have decided not to do any surgical intervention for her thoracic aortic aneurysm either. She remained stable while here she is able to eat breakfast. We repeated a urinalysis does not show any infection at all. I will speak with her primary care doctor so they can adjust her diabetes medications. Lab Data Labs: Lab Results 09/29/23 09/29/23 09/29/23 Range/Units 08:17 08:20 09:29 WBC 6.4 (4.0-11.0) 10^3/uL RBC 4.16 L (4.20-5.40) 10^6/uL Hgb 11.8 L (12.0-16.0) g/dL Hct 36.3 (36.0-48.0) % MCV 87.3 (81.0-99.0) fL MCH 28.4 (26.7-34.0) pg MCHC 32.5 (29.9-35.2) g/dL RDW 16.1 H (11.0-15.0) % Plt Count 250 (150-450) 10^3/uL MPV 10.4 (9.5-13.5) fL Neut % (Auto) 66.6 (43.0-75.0) % Lymph % (Auto) 25.5 (20.5-60.0) % [place] % (Auto) 5.8 (1.7-12.0) % Eos % (Auto) 1.1 (0.9-7.0) % Baso % (Auto) 0.8 (0.2-2.0) % Neut # (Auto) 4.2 (1.4-6.5) 10^3/uL Lymph # (Auto) 1.6 (1.2-3.8) 10^3/uL [place] # (Auto) 0.4 (0.3-0.8) 10^3/uL Eos # (Auto) 0.1 (0.0-0.7) 10^3/uL Baso # (Auto) 0.1 (0.0-0.1) 10^3/uL Abs Immat Gran (auto) 0.01 (0.00-0.03) 10^3/uL Imm/Tot Granulo (auto) 0.2 (0.0-0.5) % PT 10.6 (9.0-11.6) sec INR 1.00 Sodium 143 (136-145) mmol/L Potassium 4.1 (3.5-5.1) mmol/L Chloride 107 (98-107) mmol/L Carbon Dioxide 26.9 (21.0-32.0) mmol/L Anion Gap 13.2 BUN 21.0 H (7.0-18.0) mg/dL Creatinine 0.94 (0.55-1.02) mg/dL Est GFR ( Amer) >60 (>=60) Est GFR (Non-Af Amer) 58 L (>=60) BUN/Creatinine Ratio 22.3 Glucose 164 H (74-106) mg/dL Lactate 1.2 (0.4-2.0) mmol/L Calcium 8.7 (8.5-10.1) mg/dL Total Bilirubin 0.6 (0.2-1.0) mg/dL AST 23 (15-37) U/L ALT 28 (14-59) U/L Alkaline Phosphatase 113 (46-116) U/L Troponin I High Sens 14.5 (4.0-51.3) pg/mL Total Protein 7.0 (6.4-8.2) g/dL Albumin 3.2 L (3.4-5.0) g/dL Globulin 3.8 g/dL Albumin/Globulin Ratio 0.8 Urine Color Lt. yellow (YELLOW) Urine Clarity Clear (CLEAR) Urine pH 7.5 (5.0-9.0) Ur Specific [place] 1.010 (1.005-1.025) Urine Protein Negative (NEG/TRACE) mg/dL Urine Glucose (UA) >=1000 A (NEGATIVE) mg/dL Urine Ketones Negative (NEGATIVE) mg/dL Urine Occult Blood Trace-i (NEGATIVE) Urine Nitrite Negative (NEGATIVE) Urine Bilirubin Negative (NEGATIVE) Urine Urobilinogen 0.2 (0.2-1.0) EU/dL Ur Leukocyte Esterase Negative (NEGATIVE) POC Glucose 99 (74-106) mg/dL Discharge Plan Discharge Stand Alone Forms: Portal Instructions Chief Complaint: Altered Mental Status Clinical Impression: Hypoglycemia Patient Disposition: Home, Self-Care Time of Disposition Decision: 10:14 Print Language: Maltese Additional Instructions: We will contact your doctor to adjust your diabetic medicines. They should not give you anything until this is clarified Referrals: MAICOL PATINO [Primary Care Provider] - 1 week
[2023-09-29 10:25] LABS: Bacteria Urine TRACE #/HPF (NONE SEEN); Cast Seen? NONE SEEN #/LPF (NONE SEEN); Crystals Seen? None Seen #/HPF (None Seen); Mucus Urine NONE SEEN (NONE SEEN); Squamous Epithelial Cell Urine RARE #/LPF (NONE/RARE); WBC Urine 0-2 #/HPF (NONE SEEN)
[2023-09-29 10:27] LABS: Urine Culture Indicated NO
== END 2023-09-29 10:40 | disposition home or self-care (01) ==
PROVIDERS: Emergency Provider Emergency Medicine Emergency Medical Services; PCP Family Medicine
DX: E11.649 Type 2 diabetes mellitus with hypoglycemia without coma (principal); I69.354 Hemiplegia and hemiparesis following cerebral infarction affecting left non-dominant side; I71.20 Thoracic aortic aneurysm, without rupture, unspecified; Z87.440 Personal history of urinary (tract) infections; Z91.81 History of falling
CPT/HCPCS: 36415; 70450; 71045; 80053; 81001; 83605; 84484; 85025; 85610; 93005; 99285

== ENCOUNTER 2023-12-11 11:06 | Outpatient (REF) | payer MEDICARE, MEDICAID, SELFPAY ==
--- OUTSIDE RECORDS SUMMARY | 2023-12-11 11:11 | XMS_ITS | CCD ---
Author Organization [facility] Care Team Providers Care Steno Pool Supervisor Name Role Phone Unavailable Unavailable Mily Andrade Unavailable [phone] SALAS KIRKPATRICK Attending Unavailable SALAS KIRKPATRICK Admitting Unavailable Lupe, Ms. Mily Beckwith Primary Care Rosemary vailable Curt, Dr. Barrera Attending Unavailable Curt, Dr. Barrera Referring Unavailable Curt, Dr. Barrera Referring Unavailable CHELITA Sandhu Attending Unavailable Lupe, Jaylen Beckwith Primary Care Rosemary vailable Mily Andrade CNP Primary Care Provider Osei Roe Unavailable Lupe FOREIGN SERVICE TEACHER-Mily MERLOS Primary Care Pro vider ANGE GEE Attending Unavailable MILY ANDRADE Referring Unavailab le ANDRADE, MILY Ashley Primary Care Unavailab le Chyna Portillo DO Unavailable Corrie Coley MD Primary Care Provider MILY ANDRADE Referring Unavailab le ANDRADEMILY Primary Care Unavailab le ANDRADE, MILY Ashley Referring Unavailab le ANDRADE, MILY A Primary Care Unavailab JENIFFER Rawls Attending Unavailable MILY ANDRADE Referring Unavailab le ANDRADE, MILY Ashley Primary Care Unavailab le Andrade Mily MERLOS Primary Care Provider Osei Roe MD Unavailable MILY ANDRADE Primary Care Unavailable BRO HAWK Attending Unavailable BRO HAWK Referring Unavailable ANDRADE, MILY Primary Care Unavailable ANDRADE, MILY Primary Care Unavailable EDWARD CHRISTINE (SOHAM) Attending Unavailabl e JAH SHARPE Attending Unavailable OSEI ROE Referring Unavailable ANDRADE, MILY Primary Care Unavailable ANDRADE, MILY Primary Care Unavailable JAH SHARPE Attending Unavailable FAGERT, VAN Referring Unavailable ANDRADE, MILY Primary Care Unavailable FAGERT, VAN Referring Unavailable Petznick Chyna RIVERA Unavailable [phone] Dylan LUMBER TRIMMER, Chyna Unavailable [phone] SONU BRUNER Attending Unavailable ANDRADE, MILY Ashley Referring Unavailab le PETCHYNA CHARLES Attending Unavailable ANDRADE, MILY A Referring Unavailab le ANDRADE, MILY A Referring Unavailab le ANDRADE, MILY A Referring Unavailab le ANDRADE, MILY A Referring Unavailab le ANDRADE, MILY A Attending Unavailab le ANDRADE, MILY Ashley Attending Unavailab le Allergies Allergy Classification Reported Allergen(s) Allergy Type Date of Onset Reaction(s) Facility (13 sources) Penicillins; Translations: [Penicillins] Allergy to drug (finding) 9 [facility] (18 sources) Penicillins Drug Allergy 9 Hives, Other (See Comments) [facility] (4 sources) Penicillins Drug Allergy 9 Hives [facility] Work Phone: Medications Current Medications Medication Drug Class(es) Dates Sig (Normalized) Sig (Original) acetaminophen 325 mg oral tablet (3 sources) Start: 11-11-2023 acetaminophen (Tylenol) 325 MG tablet 11/11/2023 Active amLODIPine 5 mg oral tablet (16 sources) Dihydropyridine Calcium Channel Shantel Start: 12-03-2022 take 1 tablet by mouth in the morning amLODIPine (Norvasc) 5 MG tablet Take 5 mg by mouth in the morning. 0 12/03/2022 Active apixaban 5 mg oral tablet (15 sources) Factor Xa Inhibitor Start: 01-21-2023 End: 12-02-2023 take 1 tablet by mouth in the morning, then take 1 tablet by mouth at bedtime apixaban (ELIQUIS) 5 mg tablet Take 1 tablet (5 mg total) by mouth in the morning and 1 tablet (5 mg total) before bedtime. 60 tablet 2 01/21/2023 Active calcium carbonate 1250 mg oral tablet (3 sources) Start: 09-14-2023 Oyster Shell Calcium 500 MG tablet 09/14/2023 Active calcium carbonate 1250 mg / cholecalciferol 200 unt oral tablet (4 sources) Vitamin D take 1 tablet by mouth once in the morning calcium carbonate-vitamin D3 (OSCAL 500 + D) 500 mg(1,250mg) -200 units per tablet Take 1 tablet by mouth in the morning and 1 tablet in the evening. Take with meals. 0 Active cholecalciferol 0.025 mg oral capsule (3 sources) Vitamin D Start: 09-14-2023 D3-1000 25 MCG (1000 UT) capsule 09/14/2023 Active clopidogrel 75 mg oral tablet (17 sources) P2Y12 Platelet Inhibitor take 1 tablet by mouth once daily clopidogrel (PLAVIX) 75 mg tablet Take 75 mg by mouth once daily. Active Plavix 75 MG Ora l Tablet Quantity: 0 Refills: 0 Ordered: 04-Dec-2020 DO Active Comment on above: Take 75 mg by mouth once daily. Continuous Glucose Label Rewinder (FreeStyle Ruby 2 Dorena) device (1 source) Start: 11-19-2023 Continuous Glucose Label Rewinder (FreeStyle Ruby 2 Dorena) device Indications: 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 ([facility]/HCC) 1 each every 14 (fourteen) days 6 each 3 11/19/2023 Active FreeStyle Ruby 2 Sensor misc 1 each (1 source) Start: 11-19-2023 FreeStyle Ruby 2 Sensor misc 1 each insulin aspart (NovoLOG) 100 UNIT/ML injection (4 sources) insulin aspart ( NovoLOG) 100 UNIT/ML injection INJECT 1U:5GM CARBS BREAKFAST AND LUNCH; 1U:15GM CARBS DINNER PLUS CORRECTION 1U:100 OVER 250. MAX 40 UNITS/DAY Active insulin aspart ( NovoLOG) 100 UNIT/ML injection INJECT 1U:5GM CARBS BREAKFAST AND LUNCH; 1U:15GM CARBS DINNER PLUS CORRECTION 1U:100 OVER 250. MAX 40 UNITS/DAY 0 Active insulin aspart, human (20 sources) Insulin Analog insulin aspart ( NOVOLOG FLEXPEN U-100 INSULIN SUBCUTANEOUS) Inject subcutaneously. Per sliding scale Active insulin aspart U -100 (NovoLOG) 100 unit/mL [...] Inject 5 Units subcutaneously daily at bedtime. Active End: 11-17-2023 Tresiba FlexTouch 100 UNIT/M L injection 1 (one) time each day at the same time. 11/17/2023 Discontinued (Therapy completed) Tresiba 100 UNIT /ML Subcutaneous Solution As directed. Quantity: 0 Refills: 0 Ordered: 05-Feb-2021 DO Active Comment on above: Inject 5 Units subcu taneously daily at bedtime. insulin glargine 100 unt/ml injectable solution (8 sources) Insulin Analog Start: 12-03-19 inject 10 [IU] by subcutaneous injection in the morning insulin glargine (Lantus) 100 UNIT/ML injection Inject 10 Units under the skin in the morning. 12/02/2022 Active inject 0.15 mL by arteaga bcutaneous injection once daily insulin glargine (LANTUS) 100 unit/mL injection Inject 0.15 mL (15 Units total) under the skin nightly. 0 Active insulin glargine,hum.rec.anl og (INSULIN GLARGINE SUBCUTANEOUS) (8 sources) inject 15 [IU] by subcutaneous injection once daily insulin glargine,hum.rec.anlog (INSULIN GLARGINE SUBCUTANEOUS) Inject 15 Units subcutaneously once daily. SLIDING SCALE Active inject 15 [IU] by arteaga bcutaneous injection once daily insulin glargine,hum.rec.anlog (INSULIN GLARGINE SUBCUTANEOUS) Inject 15 Units subcutaneously once daily. SLIDING SCALE 0 Active 3 ml insulin lispro 100 unt/ml pen injector (16 sources) Insulin Analog Start: 01-21-2023 insulin lispro [...] Units in the evening. Inject with meals. 12/02/2022 Active inject 4 [IU] by sub cutaneous injection three times daily before mealtime insulin lispro (HUMALOG KWIKPEN) 100 unit/mL Inject 4 Units subcutaneously three times a day before meals. SLIDING SCALE Active insulin lispro (HumaLOG) 100 unit/mL insulin [...] CT contrast administration guidelines link. 1 Each 09/19/2020 Active Start: 09-19-2020 iv contrast (w ill be [...] CT contrast administration guidelines link. 1 Each 04/25/2020 Active Start: 04-25-2020 iv contrast (w ill [...] CT contrast administration guidelines link. 1 Each 04/20/2019 Active Start: 04-20-2019 inject 1 dose intravenously [...] CT contrast administration guidelines link. 1 Each 10/13/2018 Active Start: 10-13-2018 inject 1 dose intravenously [...] in the CT contrast administration guidelines link. loperamide hydrochloride 2 mg oral tablet (3 sources) Opioid Agonist Start: 11-14-2023 Anti-Diarrheal 2 MG tablet 11/14/2023 Active losartan potassium 50 mg oral tablet (20 sources) Angiotensin 2 Receptor Shantel Start: 09-09-2022 losartan (Cozaar) 50 MG tablet Indications: Primary hypertension (CMS/HCC) Take one tablets daily by mouth, 90 tablets with no refills 90 tablet 09/09/2022 Active take 2 tablets by mouth once gen ly losartan (COZAAR) 25 mg tablet Take 50 mg by mouth once daily. Active take 1 tablet by mouth once [...] by mouth nightly as needed. 0 Active ondansetron 4 mg oral tablet (15 sources) Serotonin-3 Receptor Antagonist take 1 tablet by mouth every eight hours as needed ondansetron (ZOFRAN) 4 mg tablet Take 4 mg by mouth every 8 hours as needed for nausea/vomiting. Active polyethylene glycol 3350 46264 mg powder for oral solution (3 sources) Osmotic Laxative Start: 4 polyethylene glycol, PEG, 3350 (MiraLax) 17 GM/SCOOP powder Indications: Slow transit constipation Take 17 g by mouth every other day if needed (constipation) 527 g 3 04/26/2023 Active potassium chloride 10 meq extended release oral capsule (3 sources) Start: 3 potassium chloride ER (Micro-K) 10 MEQ ER capsule 02/20/2023 Active POTASSIUM-99 ORAL (8 sources) take 40 mEq by mouth once daily POTASSIUM-99 ORAL Take 40 mEq by mouth once daily. Active take 40 mEq by mouth once daily POTASSIUM-99 ORAL Take 40 mEq by mouth once daily. 0 Active pregabalin 25 mg oral capsule (19 sources) Start: 01-31-2023 End: 11-23-2024 take 1 capsule by mouth in the morning pregabalin (Lyrica) 25 MG capsule Indications: Degeneration of lumbar intervertebral disc Take 1 capsule (25 mg) by mouth in the morning and 1 capsule (25 mg) before bedtime. 60 capsule 1 11/24/2023 11/23/2024 Active rivaroxaban 20 mg oral tablet (1 source) Factor Xa Inhibitor Start: 12-02-2023 take 1 tablet by mouth at mealtime rivaroxaban (Xarelto) 20 MG tablet Indications: Paroxysmal atrial fibrillation (CMS/HCC) Take 1 tablet (20 mg) by mouth in the evening. Take with meals Take with food. 90 tablet 1 12/02/2023 Active Start: 12-02-2023 take 1 tablet by rita th at mealtime rivaroxaban (Xarelto) 20 MG tablet Indications: Paroxysmal atrial fibrillation (CMS/HCC) Take 1 tablet (20 mg) by mouth in the evening. Take with meals Take with food. 90 tablet 1 12/02/2023 Active rOPINIRole 0.5 mg oral tablet (10 sources) Nonergot Dopamine Agonist Start: 07-02-2023 take 1 tablet by mouth once daily at bedtime rOPINIRole (REQUIP) 0.5 mg tablet Take 0.5 mg by mouth daily at bedtime. 07/02/2023 Active sennosides, alf 8.6 mg oral tablet (14 sources) Start: 01-21-2023 take 1 tablet by mouth twice daily as needed for constipation senna (SENOKOT) 8.6 mg tablet Take 1 tablet (8.6 mg total) by mouth 2 (two) times a day as needed for constipation. 30 each 0 01/21/2023 Active End: 11-17-2023 Sennosides (SENNA) 8.6 mg ca p Take 1 capsule by mouth as needed. Active traMADol hydrochloride 50 mg oral tablet (13 sources) Opioid Agonist Start: 01-31-2023 End: 11-17-2023 take 1 tablet by mouth every six hours as needed for pain traMADoL (ULTRAM) 50 mg tablet Take 1 tablet (50 mg total) by mouth every 6 (six) hours as needed for pain. 0 01/31/2023 Active 24 hr venlafaxine 37.5 mg extended release oral capsule (16 sources) Serotonin and Norepinephrine Reuptake Inhibitor Start: 12-03-2022 take 1 capsule by mouth every twenty-four hours at mealtime venlafaxine XR (Effexor XR) 37.5 MG 24 hr capsule Take 37.5 mg by mouth in the morning. Take with meals. 12/03/2022 Active take 1 capsule by mouth once gen ly venlafaxine ER (EFFEXOR XR) 37.5 mg 24 hr capsule Take 37.5 mg by mouth once daily. Active Completed/Discontinued Medications Medication Drug Class(es) Dates Sig (Normalized) Sig (Original) aspirin 325 mg oral tablet (20 sources) Platelet Aggregation Inhibitor, Nonsteroidal Anti-inflammatory Drug Start: 12-03-2022 End: 11-17-2023 take 1 tablet by mouth in the morning aspirin 325 MG tablet Take 325 mg by mouth in the morning. 12/03/2022 11/17/2023 Discontinued (Therapy completed) Start: 07-04-2021 take 1 tablet by rita th once daily Aspirin 81 MG Oral Tablet Chewable CHEW AND SWALLOW 1 TABLET DAILY. Quantity: 90 Refills: 3 Ordered: 04-Jul-2021 Salas Yeung Start : 04-Jul-2021 Active take 1 tablet by rita th once daily aspirin, enteric coated (ASPIRIN, ENTERIC COATED) 81 mg EC tablet Take 81 mg by mouth once daily. Active Comment on above: Take 81 mg by mouth once daily. atorvastatin 40 mg oral tablet (20 sources) HMG-CoA Reductase Inhibitor Start: take 1 tablet by mouth once [...] 0 Refills: 0 Ordered: 05-Feb-2021 DO Active docusate sodium 50 mg / sennosides, alf 8.6 mg oral tablet (10 sources) Start: 023 End: take 1 tablet by mouth in the morning senna-docusate (Lydia-Colace) 8.6-50 MG tablet Take 1 tablet by mouth in the morning and 1 tablet in the evening. 12/02/2022 11/17/2023 Discontinued (Therapy completed) take 1 tablet by mouth once michelle y senna-docusate sodium (Senokot-S) 8.6-50 MG tablet Take 1 tablet by mouth Daily Active doxycycline hyclate 100 mg oral tablet (2 sources) Tetracycline-class Drug Start: 11-17-2023 End: 11-27-2023 doxycycline (Vibra-Tabs) 100 MG tablet Indications: Acute cystitis with hematuria , Acute left otitis media Take 1 tablet (100 mg) by mouth in the morning and 1 tablet (100 mg) before bedtime. Do all this for 10 days. Take with a full glass of water and do not lie down for at least 30 minutes after.. 20 tablet 11/17/2023 11/27/2023 fluconazole 150 mg oral tablet (4 sources) Azole Antifungal Start: 11-17-2023 End: 11-17-2023 take 1 tablet by mouth once fluconazole (Diflucan) 150 MG tablet Indications: Vaginal yeast infection Take 1 tablet (150 mg) by mouth 1 (one) time for 1 dose 1 tablet 11/17/2023 11/17/2023 Start: 04-15-2023 End: 11-17-2023 fluconazole (Diflucan) 100 M G tablet 04/15/2023 11/17/2023 Discontinued (Therapy completed) levothyroxine sodium 0.125 mg oral tablet (20 sources) l-Thyroxine Start: 07-23-2022 End: 11-17-2023 take 1 tablet by mouth before mealtime levothyroxine (Synthroid, Levoxyl) 125 MCG tablet Indications: Hypothyroidism (acquired) (CMS/HCC) Take 1 tablet (125 mcg) by mouth in the morning. Take before meals. 90 tablet 07/23/2022 11/17/2023 Discontinued (Therapy completed) take 1 tablet by mouth once michelle y levothyroxine (SYNTHROID) 150 mcg tablet Take 150 mcg by mouth once daily. Active Comment on above: Take 150 mcg by mout h once daily. melatonin 3 mg oral tablet (7 sources) Start: 12-02-2022 End: 11-17-2023 take 2 tablets by mouth at bedtime melatonin 3 MG tablet Take 6 mg by mouth at bedtime. 12/02/2022 11/17/2023 Discontinued (Therapy completed) take 1 capsule by mo uth once daily as needed melatonin 3 mg capsule Take 3 mg by mout h nightly as needed (insomnia). 0 Active 24 hr metoprolol succinate 100 mg extended release oral tablet (20 sources) beta-Adrenergic Shantel Start: 09-03-2021 take 1 tablet by mouth once daily Metoprolol Succinate ER 100 MG Oral Tablet Extended Release 24 Hour TAKE 1 TABLET EVERY DAY Quantity: 90 Refills: 3 Ordered: 05-Sep-2021 Bruce Elias DO Start : 03-Sep-2021 Active Comment on above: Take 100 mg by mouth once daily. nitrofurantoin, macrocrystals 25 mg / nitrofurantoin, monohydrate 75 mg oral capsule (2 sources) Nitrofuran Antibacterial Start: 11-17-2023 End: 11-17-2023 take 1 capsule by mouth in the morning nitrofurantoin, macrocrystal-monoh ydrate, (Macrobid) 100 MG capsule Indications: Acute cystitis with hematuria Take 1 capsule (100 mg) by mouth in the morning and 1 capsule (100 mg) before bedtime. Do all this for 7 days. 14 capsule 11/17/2023 11/17/2023 Discontinued (Ineffective) nitroglycerin 0.4 mg sublingual tablet (20 sources) [...] the tongue every 5 minutes as needed. rosuvastatin calcium 40 mg oral tablet (3 sources) HMG-CoA Reductase Inhibitor Start: 12-02-2022 End: 11-17-2023 take 1 tablet by mouth at bedtime rosuvastatin (Crestor) 40 MG tablet Take 40 mg by mouth at bedtime. 12/02/2022 11/17/2023 Discontinued (Therapy completed) Problems Active Problems Problem Classification Problem Date Documented Date Episodic/Chronic Acute cerebrovascular disease (8 sources) Ischemic stroke; Translations: [Cerebral infarction, unspecified] Onset: 12-26-2022 12-16-2022 Chronic Acute myocardial infarction (17 sources) Myocardial infarction; Translations: [Subendocardial infarction, initial episode of care] Onset: 01-16-2023 Resolved: 01-16-2023 01-16-2023 Chronic Aortic; peripheral; and visceral artery aneurysms (20 sources) Aneurysm of descending aorta; Translations: [Aortic aneurysm of unspecified site without mention of rupture] Onset: 11-19-2020 Resolved: 01-16-2023 11-19-2020 Chronic Cardiac dysrhythmias (12 sources) Paroxysmal atrial fibrillation; Translations: [Paroxysmal atrial fibrillation] Onset: 03-06-2023 03-06-2023 Chronic Cataract (4 sources) Bilateral age-related nuclear cataracts; Translations: [Age-related nuclear cataract, bilateral] Onset: 12-26-2022 12-26-2022 Chronic Chronic obstructive pulmonary disease and bronchiectasis (17 sources) Chronic obstructive lung disease; Translations: [Chronic airway obstruction, not elsewhere classified] Onset: 01-16-2023 01-16-2023 Chronic Coronary atherosclerosis and other heart disease (20 sources) Coronary arteriosclerosis; Translations: [Coronary atherosclerosis of unspecified type of vessel, chemehuevi or graft] Onset: 09-05-2020 Chronic Crushing injury or internal injury (2 sources) Injury of posterior tibial artery; Translations: [Laceration of posterior tibial artery, left leg, initial encounter] 11-17-2023 Episodic Diabetes mellitus with complications (20 sources) Diabetic ketoacidosis without coma; Translations: [Type 2 diabetes mellitus with ketoacidosis without coma] Onset: 01-08-2021 01-16-2023 Chronic Diabetes mellitus without complication (11 sources) Diabetes mellitus; Translations: [Diabetes mellitus without mention of complication, type II or unspecified type, not stated as uncontrolled] Onset: 03-11-2021 Chronic Disorders of lipid metabolism (20 sources) Hyperlipidemia; Translations: [Other and unspecified hyperlipidemia] Onset: 12-01-2014 12-16-2022 Chronic Essential hypertension (20 sources) Hypertensive disorder; Translations: [Unspecified essential hypertension] Onset: 03-11-2021 12-16-2022 Chronic Genitourinary symptoms and ill-defined conditions (2 sources) Scalding pain on urination ; Translations: [Dysuria] 11-17-2023 Episodic Mycoses (2 sources) Candidiasis of vagina; Translations: [Vaginal yeast infection] 11-17-2023 Episodic Occlusion or stenosis of precerebral arteries (7 sources) Bilateral stenosis of carotid arteries; Translations: [Occlusion and stenosis of bilateral carotid arteries] Onset: 11-19-2020 11-19-2020 Chronic Osteoarthritis (3 sources) Arthritis; Translations: [Unspecified osteoarthritis, unspecified site] Onset: 04-26-2023 04-26-2023 Chronic Other aftercare (1 source) Drug therapy finding; Translations: [Encounter for therapeutic drug level monitoring] 07-13-2023 Episodic Other and ill-defined cerebrovascular disease (4 sources) Cerebral arterial aneurysm; Translations: [Cerebral aneurysm, nonruptured] 12-16-2022 Chronic Other and ill-defined cerebrovascular disease (7 sources) Aneurysm of middle cerebral artery; Translations: [Cerebral aneurysm, nonruptured] Onset: 01-16-2023 01-16-2023 Chronic Other and ill-defined cerebrovascular disease (1 source) Cerebral aneurysm, nonruptured; Translations: [Nonruptured cerebral aneurysm] Onset: 07-07-2023 Chronic Other injuries and conditions due to external causes (2 sources) At high risk for fall; Translations: [History of falling] 11-17-2023 Episodic Other lower respiratory disease (1 source) Calcified granuloma of lung; Translations: [Pulmonary fibrosis, unspecified] 04-29-2023 Chronic Other nervous system disorders (4 sources) Spinal cord compression; Translations: [Unspecified disease of spinal cord] Chronic Other nervous system disorders (3 sources) Chronic pain; Translations: [Other chronic pain] Onset: 04-26-2023 04-26-2023 Chronic Other nervous system disorders (2 sources) Unsteady when walking; Translations: [Unsteadiness on feet] 11-17-2023 Episodic Other nutritional; endocrine; and metabolic disorders (10 sources) Overweight in adulthood with body mass index of 25 or more but less than 30; Translations: [Overweight] Episodic Other nutritional; endocrine; and metabolic disorders (2 sources) Body mass index 25-29 - overweight; Translations: [Body Mass Index 29.0-29.9, adult] Episodic Otitis media and related conditions (2 sources) Acute left otitis media; Translations: [Otitis media, unspecified, left ear] 11-17-2023 Episodic Peripheral and visceral atherosclerosis (20 sources) Peripheral vascular disease; Translations: [Peripheral vascular disease, unspecified] Onset: 11-19-2020 11-19-2020 Chronic Residual codes; unclassified (2 sources) Edema of left lower leg; Translations: [Localized edema] 11-17-2023 Episodic Residual codes; unclassified (2 sources) Edema of foot; Translations: [Localized edema] 11-17-2023 Episodic Residual codes; unclassified (2 sources) Edema of lower extremity; Translations: [Localized edema] 11-17-2023 Episodic Spondylosis; intervertebral disc disorders; other back problems (3 sources) Degeneration of lumbar intervertebral disc; Translations: [Degeneration of lumbar intervertebral disc] Onset: 04-26-2023 04-26-2023 Chronic Substance-related disorders (14 sources) Smokes tobacco daily; Translations: [Tobacco use disorder] Onset: 04-26-2023 12-16-2022 Chronic Comment on above: 1/2 PPD; Thyroid disorders (3 sources) Hypothyroidism; Translations: [Hypothyroidism, unspecified] Onset: 04-26-2023 04-26-2023 Chronic Unclassified (1 source) New Patient Onset: 06-25-2023 Unclassified (1 source) Pulmonary Nodule Onset: 06-25-2023 Unclassified (1 source) Thoracic aortic aneurysm without rupture, unspecified part (HCC); Translations: [Thoracic aortic aneurysm without rupture, unspecified part (HCC)] Onset: 03-25-2023 Urinary tract infections (2 sources) Acute cystitis; Translations: [Acute cystitis with hematuria] 11-17-2023 Episodic Past or Other Problems Problem Classification Problem Date Documented Date Episodic/Chronic Acute and unspecified renal failure (4 sources) Acute injury of kidney; Translations: [Acute kidney failure, unspecified] Onset: 01-16-2023 01-16-2023 Episodic Blindness and vision defects (4 sources) Left homonymous hemianopsia; Translations: [Homonymous bilateral field [...] Translations: [Fecal impaction] Onset: 01-18-2023 01-18-2023 Episodic Mood disorders (3 sources) Mood disorders Onset: 11-17-2023 11-17-2023 Noninfectious gastroenteritis (4 sources) Stercoral colitis; Translations: [Other specified noninfective gastroenteritis and colitis] Onset: 01-18-2023 01-18-2023 Episodic Nonspecific chest pain (1 source) Chest pain, unspecified; Translations: [Chest pain, unspecified type] Onset: 03-25-2023 Episodic Other circulatory disease (7 sources) History of cerebrovascular accident; Translations: [Personal history of transient ischemic attack (TIA), and cerebral infarction without residual deficits] Onset: 12-26-2022 01-16-2023 Episodic Other eye disorders (4 sources) Dry eyes; Translations: [Dry eye syndrome of [...] Spondylosis; intervertebral disc disorders; other back problems (11 sources) Lumbar radiculopathy; Translations: [Radiculopathy, lumbar region] Onset: 11-27-2021 Resolved: 01-16-2023 11-27-2021 Episodic Results Test Name Value Interpretation Reference Range Facility [facility] 12-02-2023 [facility] Telephone ([id number]) LUCILA TINEO ([id number]) 1950 F Date Time Provider Department 12/02/23 JAH SHARPE [id number] During your visit today, we recorded the following information about you: Jenny Haines 12/02/2023 9:50 AM Signed CV PHONE Name of caller : Dr. Foote PCP Relationship to patient : Caregiver If not self Will need patient permission to release results or disclose health information with called documented in fy. Patient identified by Name and Date of . ( Lucila Tineo, 1950). Yes Number to return call [phone] Reason for Call: Medication Question: Chyna from Dr. Foote's office would like to know if patient can change to xarelto, because her insurance will not cover the eliquis. They are asking if you originally started patient on eliquis, this is why the question is raised. Please call back Chyna at the above number. Thank you calling [facility]. You will receive a return call within 48 hours ( or 2 business days if close to the weekend). If you feel that this is an urgent issue and needs immediate attention, it is recommended that you contact your primary care provider office or proceed to your nearest [facility] of Emergency Room ED for evaluation/treatment. Lane Vogt, RN 12/02/2023 9:57 AM Signed Returned call to office, notified that this office did not start the eliquis. It was a historical medication when she first came to the office. Verbalized understanding Allergies As of Date: 12/02/2023 Noted Allergy Reaction PENICILLINS 10/11/2018 4 - Hives Date Reviewed: 07/07/2023 Reviewed by: Latoya Greene MA - Fully Assessed Reason for Visit: Medication Question [1848] Prescriptions as of 12/02/2023 - rOPINIRole (REQUIP) 0.5 mg tablet Take [...] FLEXTOUCH U-100) 100 unit/mL (3 mL) injection (more content not included)... Normal [facility] Bacteria identified Cx Nom ( U)on 11-19-2023 Appearance (U) Adequate [facility] Internal identifier for Provider [id number] [facility] Specimen source Nom (Unsp spec) URINE [facility] STATUS FINAL [facility] Performing Organization Information Site ID: QPT Name: [facility] Address: [address] [place] [id number] Director: Blade Crane MD [facility] - Microbiology an d Antimicrobial susceptibilityon 11-19-2023 Bacteria identified Cx Nom (U) SEE NOTE [facility] Comment on above: Mixed genital rodriguez isolated. These superficial bacteria are not indicative of a urinary tract infection. No further organism identification is warranted on this specimen. If clinically indicated, recollect clean-catch, mid-stream urine and transfer immediately to Urine Culture Transport Tube. HbA1c (Bld) [Mass fraction]o n 11-17-2023 Interpretation and review of laboratory results Abnormal [facility] - Hematology and Cell countson 11-17-2023 HbA1c (Bld) [Mass fraction] 8.7 % [facility] US.doppler Lower extremity v ein - lefton 11-17-2023 Exam: US - US VENOUS UNILATERAL LIMITED Clinical History: Edema Reference Exam: No comparison FINDINGS: Imaging findings: Real-time ultrasonographic evaluation with color-flow Doppler sequencing and Doppler waveform analysis is provided for the deep venous system. The visualized left common femoral vein, superficial femoral vein, popliteal vein and veins of the trifurcation demonstrate appropriate compressibility and augmentation of flow. The greater saphenous vein is patent. No abnormality of the popliteal fossa is identified. Nodularity in the left groin probably benign lymph node accumulation measuring up to 1.6 x 1.2 x 1.9 cm. Other nodes are also present. Impression: 1. No ultrasonographic evidence of deep venous thrombosis in the visualized left lower extremity. 2. Slightly prominent lymph node left groin suspected. Dictated on: 11/17/2023 4:22 PM This report has been electronically signed and approved by the interpreting Radiologist. Electronically Signed Dom Najera M.D. 2023-11-17 16:23:40 IMAGING Dom Najera MD - 11/17/2023 Exam: US - US VENOUS UNILATERAL LIMITED Clinical History: Edema Reference Exam: No comparison FINDINGS: Imaging findings: Real-time ultrasonographic evaluation with color-flow Doppler sequencing and Doppler waveform analysis is provided for the deep venous system. The visualized left common femoral vein, superficial femoral vein, popliteal vein and veins of the trifurcation demonstrate appropriate compressibility and augmentation of flow. The greater saphenous vein is patent. No abnormality of the popliteal fossa is identified. Nodularity in the left groin probably benign lymph node accumulation measuring up to 1.6 x 1.2 x 1.9 cm. Other nodes are also present. Impression: 1. No ultrasonographic evidence of deep venous thrombosis in the visualized left lower extremity. 2. Slightly prominent lymph node left groin suspected. Dictated on: 11/17/2023 4:22 PM This report has been electronically signed and approved by the interpreting Radiologist. Electronically Signed Dom Najera M.D. 2023-11-17 16:23:40 [facility] Radiology Study observation (narrative) [facility] US.doppler Lower extremity v ein - leftOrdered By: Dom Najera on 11-17-2023 [facility] Work Phone: Urinalysis macro (dipstick) panel (U)on 11-17-2023 Bilirubin, UA Negative Negative - 4(70) +++ mg/dL [facility] Blood, UA Positive Negative - 50 Moncho/mcL [facility] Clarity, UA Cloudy [facility] Color, UA Yellow [facility] Glucose, UA Positive Negative - 2000(110) ++++ mg/dL [facility] Interpretation and review of laboratory results Abnormal [facility] Ketones, UA Negative Negative - 160(16) ++++ mg/dL [facility] Leukocytes, UA Positive Negative - 500+++ Cinthia/mcL [facility] Nitrite, UA Negative Negative - Positive [facility] pH, UA 6.5 5 - 9 [facility] Protein, UA Negative Negative - 2000(20) ++++ mg/dL [facility] Spec Grav, UA 1.005 1 - 1.03 [facility] Urobilinogen, UA 0.2 0.2 - 12 mg/dL [facility] US LOWER EXTREMITY VENO US DUPLEX LEFTon 11-17-2023 [facility] US LOWER EXTREMITY VENOUS DUPLEX LEFT Exam: US - US VENOUS UNILATERAL LIMITED Clinical History: Edema Reference Exam: No comparison FINDINGS: Imaging findings: Real-time ultrasonographic evaluation with color-flow Doppler sequencing and Doppler waveform analysis is provided for the deep venous system. The visualized left common femoral vein, superficial femoral vein, popliteal vein and veins of the trifurcation demonstrate appropriate compressibility and augmentation of flow. The greater saphenous vein is patent. No abnormality of the popliteal fossa is identified. Nodularity in the left groin probably benign lymph node accumulation measuring up to 1.6 x 1.2 x 1.9 cm. Other nodes are also present. Impression: 1. No ultrasonographic evidence of deep venous thrombosis in the visualized left lower extremity. 2. Slightly prominent lymph node left groin suspected. Dictated on: 11/17/2023 4:22 PM This report has been electronically signed and approved by the interpreting Radiologist. Electronically Signed Dom Najera M.D. 2023-11-17 16:23:40 Normal Not Available XR FOOT 3+ VIEWS LEFTon 10-31 XR FOOT 3+ VIEWS LEFT Exam: XR - LT FOOT COMPLETE MIN 3 VIEWS Reason for exam: Left foot swelling Prior comparative studies: None Findings: Bones are osteopenic. There is flattening and remodeling involving the articular surface of the third metatarsal head. No fracture or osteolysis is apparent. There is mild degenerative sclerosis at the first MTP joint and to a lesser degree in the midfoot. There is substantial soft tissue swelling in the forefoot. No emphysema or foreign bodies are identified. Plantar and calcaneal insertion spur are present. IMPRESSION: 1. No acute osseous abnormality identified. 2. 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 3. Osteopenia and degenerative changes. 4. Substantial soft tissue swelling. Electronically Signed Ion Rivera M.D. 2023-11-17 15:21:35 Normal Not Available XR Foot - left 3 Viewson Exam: XR - LT FOOT COMPLETE MIN 3 VIEWS Reason for exam: Left foot swelling Prior comparative studies: None Findings: Bones are osteopenic. There is flattening and remodeling involving the articular surface of the third metatarsal head. No fracture or osteolysis is apparent. There is mild degenerative sclerosis at the first MTP joint and to a lesser degree in the midfoot. There is substantial soft tissue swelling in the forefoot. No emphysema or foreign bodies are identified. Plantar and calcaneal insertion spur are present. IMPRESSION: 1. No acute osseous abnormality identified. 2. 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 3. Osteopenia and degenerative changes. 4. Substantial soft tissue swelling. Electronically Signed Ion Rivera M.D. 2023-11-17 15:21:35 IMAGING Ion Rivera MD - 11/17/2023 Exam: XR - LT FOOT COMPLETE MIN 3 VIEWS Reason for exam: Left foot swelling Prior comparative studies: None Findings: Bones are osteopenic. There is flattening and remodeling involving the articular surface of the third metatarsal head. No fracture or osteolysis is apparent. There is mild degenerative sclerosis at the first MTP joint and to a lesser degree in the midfoot. There is substantial soft tissue swelling in the forefoot. No emphysema or foreign bodies are identified. Plantar and calcaneal insertion spur are present. IMPRESSION: 1. No acute osseous abnormality identified. 2. 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 3. Osteopenia and degenerative changes. 4. Substantial soft tissue swelling. Electronically Signed Ion Rivera M.D. 2023-11-17 15:21:35 [facility] Radiology Study observation (narrative) [facility] XR Foot - left 3 ViewsOrdere d By: Ion Rivera on 11-17-2023 [facility] [employer] Work Phone: [facility] 07-16-2023 [facility] Telephone (NECVS8) LUCILA TINEO ([id number]) 1950 F Date Time Provider Department 07/16/23 JAH SHARPE NECVS8 During your visit today, we recorded the following information about you: Jenny Haines 07/16/2023 12:26 PM Signed Rec'd lab report from [facility] imported into [employer]. Lane Vogt RN 07/17/2023 8:06 AM Signed Labs for upcoming cerebral angiogram Allergies As of Date: 07/16/2023 Noted Allergy Reaction PENICILLINS 10/11/2018 4 - Hives Date Reviewed: 07/07/2023 Reviewed by: Latoya Greene MA - Fully Assessed Reason for Visit: Received Outside Medical Records [3570] Cmt: Rec'd lab report from [facility] imported into [employer]. Prescriptions as of 07/17/2023 - rOPINIRole (REQUIP) [...] Encounter Status:Closed by JENNY HAINES on 07/16/23 [facility] 07-14-2023 CNPN Telephone (NECVS8) LUCILA TINEO ([id number]) 1950 F Date Time Provider Department 07/14/23 JAH SHARPE NECVS8 During your visit today, we recorded the following information about you: Jenny Haines 07/14/2023 3:34 PM Signed Rec'd patient PT/INR results imported into [employer]. Allergies As of Date: 07/14/2023 Noted Allergy [...] Encounter Status:Closed by JENNY HAINES on 07/16/23 [facility] Dem[facility] 07-07-2023 CNOV Office Visit (NSEVMN ) LUCILA TINEO ([id number]) 1950 F Date Time Provider Department 07/07/23 10:40 AM JAH SHARPE NSEN During your visit today, we recorded the following information about you: Pulse Blood pressure Weight Height 85/minute 123/52 60.8 kg 1.626 m Jah Sharpe MD 07/07/2023 5:09 PM Signed [facility] Established Outpatient Visit Lucila Tineo [facility]#: [id number] Date of Service: 07/07/2023 Primary Care Provider: Mily Andrade, CHELITA [address] [facility] [address] FOLLOW UP VISIT Chief complaint: Follow up for incidental unruptured brain aneurysm History of present illness: Ms. Veloz is a 73-year-old female with vascular risk factors, who presents for follow-up evaluation of an incidentally discovered unruptured brain aneurysm. The patient was residing in [place], and was found down on October 29, [...] stroke work-up. The patient then returned to [place], and she is still at a nursing [...] specific nu (more content not included)... Normal [facility] CREATININE, BLOOD (POC)on Creatinine [Mass/Vol] 0.70 mg/dL 0.7 - 1.4 mg/dL [facility] eGFR (POCT) mL/min/1.73 m2 [facility] Location:Radiology [facility], [address] [place] [address], [address] [place] [address] POINT OF CARE [facility] CTA HEAD WO/W IVCONon 2023 CTA HEAD WO/W IVCON * * *Final Report* * * DATE OF EXAM: Jul 07 2023 9:44AM [facility] [place] CTA HEAD WO/W IVCON / [...] superior parietal lobule. Encephalomalacia within the left SEMICONDUCTOR PACKAGES SEALER territory including the occipital lobe. Hypoattenuation within [...] circulation: Distal vertebral arteries, basilar trunk and project development leader are patent without aneurysm or dissection. Opacified dural venous sinuses and major deep and superficial draining veins are patent. Accessibility Lift Technician (topogram) images: No additional findings. IMPRESSION: Brain: No acute intracranial infarction or hemorrhage. Encephalomalacia within the right MCA and left SEMIC[employer]CTOR P[employer] SEALER territories. CTA brain: Left MCA M2 segment aneurysm with interval increase in the lumen size as detailed. No large vessel occlusion or high-grade arterial stenosis intracranially. Arterial blood flow was measured to detect acute large vessel occlusion by computer aided detection software: Not Performed. Concordance between software and imaging review: Concordant. Instrument Specialist: МАРИНА Transcribe Date/Time: Jul 07 2023 9:47A Dictated by : DURAN FRANCO MD This examination was interpreted and the report reviewed and electronically signed by: JOSE CRUZ CARBAJAL MD on Jul 07 2023 11:52AM EST [id number] Normal [facility] CTA Head vessels WO and W co ntrast Marisol 07-07-2023 IMPRESSION: Brain: No acute intracranial infarction or hemorrhage. Encephalomalacia within the right MCA and left SEMIC[employer] P[employer] SEALER territories. CTA brain: Left MCA M2 segment aneurysm with interval increase in the lumen size as detailed. No large vessel occlusion or high-grade arterial stenosis intracranially. Arterial blood flow was measured to detect acute large vessel occlusion by computer aided detection software: Not Performed. Concordance between software and imaging review: Concordant. Instrument Specialist: МАРИНА Transcribe Date/Time: Jul 07 2023 9:47A Dictated by : DURAN FRANCO MD This examination was interpreted and the report reviewed and electronically signed by: JOSE CRUZ CARBAJAL MD on Jul 07 2023 11:52AM [facility] DIVISION OF RADIOLOGY * * *Final Report* * * DATE OF EXAM: Jul 07 2023 9:44AM [facility] [place] - CTA HEAD WO/W IVCON / [...] superior parietal lobule. Encephalomalacia within the left SEMIC[employer]CTOR P[employer] SEALER territory including the occipital lobe. Hypoattenuation within [...] circulation: Distal vertebral arteries, basilar trunk and project development leader are patent without aneurysm or dissection. Opacified dural venous sinuses and major deep and superficial draining veins are patent. Accessibility Lift Technician (topogram) images: No additional findings. DIVISION OF RADIOLOGY Provider, [facility] - 07/07/2023 * * *Final Report* * * DATE OF EXAM: Jul 07 2023 9:44AM [facility] [place] - CTA HEAD WO/W IVCON / [...] superior parietal lobule. Encephalomalacia within the left SEM[employer] P[employer] SEALER territory including the occipital lobe. Hypoattenuation within [...] circulation: Distal vertebral arteries, basilar trunk and project development leader are patent without aneurysm or dissection. Opacified dural venous sinuses and major deep and superficial draining veins are patent. Accessibility Lift Technician (topogram) images: No additional findings. IMPRESSION IMPRESSION: Brain: No acute intracranial infarction or hemorrhage. Encephalomalacia within the right MCA and left SEMIC[employer] P[employer] SE[employer]ER territories. CTA brain: Left MCA M2 segment aneurysm with interval increase in the lumen size as detailed. No large vessel occlusion or high-grade arterial stenosis intracranially. Arterial blood flow was measured to detect acute large vessel occlusion by computer aided detection software: Not Performed. Concordance between software and imaging review: Concordant. Instrument Specialist: PSCB Transcribe Date/Time: Jul 07 2023 9:47A Dictated by : DURAN FRANCO MD This examination was interpreted and the report reviewed and electronically signed by: JOSE CRUZ CARBAJAL MD on Jul 07 2023 11:52AM EST [facility] Radiology Study observation (narrative) [facility] CTA Head vessels WO and W co ntrast IVOrdered By: Ccf Provider on 07-07-2023 [facility] No Panel Informationon 04-14 Interpretation and review of laboratory results Abnormal [facility] UA (CLEAN/CATCH) CHARGE ACCOUNT CLERK/ERICK RO IF IND.on 04-14-2023 BILIRUBIN URINE Negative NEGATIVE [facility] BLOOD URINE Negative NEGATIVE [facility] Clarity (U) CLEAR CLEAR [facility] Color (U) LT. YELLOW YELLOW [facility] GLUCOSE URINE UA >=1000 Abnormal NEGATIVE mg/dL [facility] Ketones Ql (U) Negative NEGATIVE mg/dL [facility] Leukocyte esterase Test strip Ql (U) SMALL Abnormal NEGATIVE [facility] NITRITE URINE Negative NEGATIVE [facility] pH (U) 6.0 [pH] 5.0 - 9.0 [facility] PROTEIN URINE Negative NEG/TRACE mg/dL [facility] SPECIFIC GRAVITY URINE 1.010 1.005 - 1.025 [facility] URINE MICROSCOPIC INDICATED YES [facility] UROBILINOGEN URINE 0.2 EU/dL 0.2 - 1.0 EU/dL [facility] URINE MICROSCOPIC ONLYon 04-14-2023 BACTERIA URINE SMALL Abnormal NONE SEEN #/HPF [facility] CAST SEEN? NONE SEEN NONE SEEN #/LPF [facility] CRYSTALS SEEN? None Seen None Seen #/HPF [facility] MUCUS URINE TRACE Abnormal NONE SEEN [facility] SQUAMOUS EPITHELIAL CELL URINE FEW Abnormal NONE/RARE #/LPF [facility] RBC 0-2 [facility] WBC 10-20 Abnormal NONE SEEN #/HPF [facility] URINE CULTURE INDICATED YES [facility] YEAST URINE SEEN Abnormal NONE SEEN [facility] Comment on above: 4+ BUDDING CBC panel Auto (Bld)on 03-25 Erythrocyte distribution width (RBC) [Ratio] 14.9 % Normal 11.5-15.0 [facility] Comment on above: Order Comment: Speci men Type: BLOOD SPECIMENOrdering Facility: [facility] Address: [address] [place] [address] Performed By: #### 5 8410-2 ####[facility] LABIA [id number] [place] [address] [place] Hematocrit (Bld) [Volume fraction] 37.0 % Normal 36.0-46.0 [facility] Comment on above: Order Comment: Speci men Type: BLOOD SPECIMENOrdering Facility: [facility] Address: [address] [place] [address] Performed By: #### 5 8410-2 ####[facility] [id number] [place] [address] [place] Hemoglobin (Bld) [Mass/Vol] 12.1 g/dL Normal 11.5-15.5 [facility] Comment on above: Order Comment: Speci men Type: BLOOD SPECIMENOrdering Facility: [facility] Address: [address] [place] [address] Performed By: #### 5 8410-2 ####[facility] [id number] [place] [address] [place] MCH (RBC) [Entitic mass] 29.4 pg Normal 26.0-34.0 [facility] Comment on above: Order Comment: Speci men Type: BLOOD SPECIMENOrdering Facility: [facility] Address: [address] [place] [address] Performed By: #### 5 8410-2 ####[facility] [id number] [place] [address] [place] MCHC (RBC) [Mass/Vol] 32.7 g/dL Normal 30.5-36.0 [facility] Comment on above: Order Comment: Speci men Type: BLOOD SPECIMENOrdering Facility: [facility] Address: [address] [place] [address] Performed By: #### 5 8410-2 ####[facility] [id number] [place] [address] [place] MCV (RBC) [Entitic vol] 90.0 fL Normal 80.0-100.0 [facility] Comment on above: Order Comment: Speci men Type: BLOOD SPECIMENOrdering Facility: [facility] Address: [address] [place] [address] Performed By: #### 5 8410-2 ####[facility] [id number] [place] [address] [place] Nucleated RBC (Bld) [#/Vol] 10*3/uL Normal <0.01 [facility] Comment on above: Order Comment: Speci men Type: BLOOD SPECIMENOrdering Facility: [facility] Address: [address] [place] [address] Performed By: #### 5 8410-2 ####[facility] [id number] [place] [address] [place] Platelet mean volume (Bld) [Entitic vol] 12.2 fL Normal 9.0-12.7 [facility] Comment on above: Order Comment: Speci men Type: BLOOD SPECIMENOrdering Facility: [facility] Address: [address] [place] [address] Performed By: #### 5 8410-2 ####[facility] [id number] [place] [address] [place] Platelets (Bld) [#/Vol] 157 10*3/uL Normal 150-400 [facility] Comment on above: Order Comment: Speci men Type: BLOOD SPECIMENOrdering Facility: [facility] Address: [address] [place] [address] Performed By: #### 5 8410-2 ####[facility] [id number] [place] [address] [place] RBC (Bld) [#/Vol] 4.11 10*6/uL Normal 3.90-5.20 [facility] Comment on above: Order Comment: Speci men Type: BLOOD SPECIMENOrdering Facility: [facility] Address: [address] [place] [address] Performed By: #### 5 8410-2 ####[facility] [id number] [place] [address] [place] WBC (Bld) [#/Vol] 3.70 10*3/uL Normal 3.70-11.00 [facility] Comment on above: Order Comment: Speci men Type: BLOOD SPECIMENOrdering Facility: [facility] Address: [address] [place] [address] Performed By: #### 5 8410-2 ####[facility]IA [id number] [place] [address] [place] CNOVon 03-25-2023 CNOV Office Visit (VASSMN ) LUCILA TINEO ([id number]) 1950 F Date Time Provider Department 03/25/23 9:15 AM BRO HAWK During your visit today, we recorded the following information about you: Pulse Blood pressure 104/minute 140/84 Bro Hawk MD 03/25/2023 11:09 AM [facility] Heart , Vascular and Thoracic [place] DEPARTMENT OF VASCULAR SURGERY OUTPATIENT VISIT DATE [...] w/irratic blood glucose(s) SHIRA (renal artery stenosis) ([facility]) 2 arteries partially occluded Thoracoabdominal aortic aneurysm (TAAA) ([facility]) PAST SURGICAL HISTORY Procedure Laterality Date [...] Reactions Peni (more content not included)... Normal [facility] CT BRAIN WO IVCONon 03-25-19 CT BRAIN WO IVCON * * *Final Report* * * DATE OF EXAM: Mar 25 2023 12:09PM [facility] 0504 - CT BRAIN WO IVCON / [...] administration for the CTA chest/abdomen/pelvis, degrading assessment. Accessibility Lift Technician (topogram) images: No additional findings. Post-operative change: [...] prior MRI 01/16/2023 and older examinations from 10/29/2022.Hypoattenua tion extending to subcortical white matter and periventricular [...] in the right posterior MCA and left SEMICOND[employer]CTOR PACKAGES SEALER territories with associated encephalomalacic changes, and interval development of high attenuation along the cortical margins on the right and few areas of high attenuation in the left SEMICONDUCTOR P[employer] SEALER territory. Findings most likely reflect gyriform enhancement [...] temporal lobe and stable adjacent vasogenic edema. Instrument Specialist: PSCB Transcribe Date/Time: Mar 25 2023 12:10P Dictated by : KRISTINE SANDHU MD This examination was interpreted and the report reviewed and electronically signed by: KASSANDRA SAWYER MD on Mar 25 2023 12:53PM EST [id number] Normal [facility] CTA ABD/PELV WO/W IVCONon CTA ABD/PELV WO/W IVCON * * *Final Report* * * DATE OF EXAM: Mar 25 2023 10:28AM [facility] 0467 - CTA ABD/PELV [...] AORTIC DIMENSIONS: AORTIC ROOT: 3.3 cm measured pvawi-wq-bejpa mid ASCENDING THORACIC AORTA: 3.7 cm mid [...] progression since 2020. No significant changes otherwise. Instrument Specialist: [facility] STERLINGDavid Transcribe Date/Time: Mar 25 2023 12:00P Dictated by : SOHAM ALEMAN MD This examination was interpreted and the report reviewed and electronically signed by: SOHAM ALEMAN MD on Mar 25 2023 1:16PM EST [id number] Normal [facility] CTA CHEST (NONGATED) WO/W IV CONon 03-25-2023 CTA CHEST (NONGATED) WO/W IVCON * * *Final Report* * * DATE OF EXAM: Mar 25 2023 10:28AM [facility] 0124 - CTA CHEST [...] AORTIC DIMENSIONS: AORTIC ROOT: 3.3 cm measured avhmw-nf-jlwfu mid ASCENDING THORACIC AORTA: 3.7 cm mid [...] progression since 2020. No significant changes otherwise. Instrument Specialist: МАРИНА Transcribe Date/Time: Mar 25 2023 12:00P Dictated by : SOHAM ALEMAN MD This examination was interpreted and the report reviewed and electronically signed by: SOHAM ALEMAN MD on Mar 25 2023 1:16PM EST [id number] Normal [facility] metabolic 2000 panelon 03-25-2023 Albumin [Mass/Vol] 3.5 g/dL Low 3.9-4.9 [facility] Comment on above: Order Comment: Speci men Type: BLOOD SPECIMENOrdering Facility: [facility] Address: [address] [place] [address] Performed By: #### 2 4323-8 ####[facility] [id number] [place] [address] [place] ALP [Catalytic activity/Vol] 93 U/L Normal 34-123 [facility] Comment on above: Order Comment: Speci men Type: BLOOD SPECIMENOrdering Facility: [facility] Address: [address] [place] [address] Result Comment: Resu lts may be falsely decreased due to interference from hemolysis. Suggest reorder as clinically indicated. Performed By: #### 2 4323-8 ####[facility] [id number] [place] [address] [place] ALT [Catalytic activity/Vol] 21 U/L Normal 7-38 [facility] Comment on above: Order Comment: Speci men Type: BLOOD SPECIMENOrdering Facility: [facility] Address: [address] [place] [address] Result Comment: Resu lts may be falsely increased due to interference from hemolysis. Suggest reorder as clinically indicated. Performed By: #### 2 4323-8 ####[facility] LABIA [id number] [place] [address] [place] Anion gap [Moles/Vol] 11 mmol/L Normal 9-18 [facility] Comment on above: Order Comment: Speci men Type: BLOOD SPECIMENOrdering Facility: [facility] Address: [address] [place] [address] Performed By: #### 2 4323-8 ####[facility] LABCLIA [id number] [place] [address] [place] AST [Catalytic activity/Vol] 49 U/L High 13-35 [facility] Comment on above: Order Comment: Speci men Type: BLOOD SPECIMENOrdering Facility: [facility] Address: [address] [place] [address] Result Comment: Resu lts may be falsely increased due to interference from hemolysis. Suggest reorder as clinically indicated. Performed By: #### 2 4323-8 ####[facility] LABCLIA [id number] [place] [address] [place] Bilirubin [Mass/Vol] 0.4 mg/dL Normal 0.2-1.3 [facility] Comment on above: Order Comment: Speci men Type: BLOOD SPECIMENOrdering Facility: [facility] Address: [address] [place] [address] Performed By: #### 2 4323-8 ####[facility] LABCLIA [id number] [place] [address] [place] Calcium [Mass/Vol] 9.1 mg/dL Normal 8.5-10.2 [facility] Comment on above: Order Comment: Speci men Type: BLOOD SPECIMENOrdering Facility: [facility] Address: [address] [place] [address] Performed By: #### 2 4323-8 ####[facility] LABCLIA [id number] [place] [address] [place] Chloride [Moles/Vol] 101 mmol/L Normal 97-105 [facility] Comment on above: Order Comment: Speci men Type: BLOOD SPECIMENOrdering Facility: [facility] Address: [address] [place] [address] Performed By: #### 2 4323-8 ####[facility] LABCLIA [id number] [place] [address] [place] CO2 [Moles/Vol] 19 mmol/L Low 22-30 [facility] Comment on above: Order Comment: Speci men Type: BLOOD SPECIMENOrdering Facility: [facility] Address: [address] [place] [address] Performed By: #### 2 4323-8 ####[facility] LABIA [id number] [place] [address] [place] Creatinine [Mass/Vol] 0.60 mg/dL Normal 0.58-0.96 [facility] Comment on above: Order Comment: Speci men Type: BLOOD SPECIMENOrdering Facility: [facility] Address: [address] [place] [address] Performed By: #### 2 4323-8 ####[facility] LABIA [id number] [place] [address] [place] Creatinine and Glomerular filtration rate.predicted panel (S/P/Bld) 95 mL/min/1.73m??? Normal >=60 [facility] Comment on above: Order Comment: Speci men Type: BLOOD SPECIMENOrdering Facility: [facility] Address: [address] [place] [address] Result Comment: Janice mated Glomerular Filtration Rate [...] actual GFR. Performed By: #### 2 4323-8 ####[facility] LABCLIA [id number] [place] [address] [place] Glucose [Mass/Vol] 435 mg/dL High 74-99 [facility] Comment on above: Order Comment: Speci men Type: BLOOD SPECIMENOrdering Facility: [facility] Address: [address] [place] [address] Result Comment: The [place] Diabetes Association (ADA) provides guidance for cutoff [...] Standards of Medical Care in Diabetes 2016, [place] Diabetes Association. Diabetes Care. 2016.39(Suppl 1). Performed By: #### 2 4323-8 ####[facility] LABCLIA [id number] [place] [address] [place] Potassium [Moles/Vol] Normal [facility] Comment on above: Order Comment: Letty [facility] Type: BLOOD SPECIMENOrdering Facility: [facility] Address: [address] [place] [address] Result Comment: Unab le to assay due to interference from hemolysis. Suggest reorder as clinically indicated. Performed By: #### 2 4323-8 ####[facility] LABCLIA [id number] [place] [address] [place] Protein [Mass/Vol] 6.7 g/dL Normal 6.3-8.0 [facility] Comment on above: Order Comment: Letty [facility] Type: BLOOD SPECIMENOrdering Facility: [facility] Address: [address] [place] [address] Result Comment: Resu lts may be falsely increased due to interference from hemolysis. Suggest reorder as clinically indicated. Performed By: #### 2 4323-8 ####[facility] LABCLIA [id number] [place] [address] [place] Sodium [Moles/Vol] 131 mmol/L Low 136-144 [facility] Comment on above: Order Comment: Speci men Type: BLOOD SPECIMENOrdering Facility: [facility] Address: [address] [place] [address] Performed By: #### 2 4323-8 ####[facility] LABCLIA [id number] [place] [id number] [place] Urea nitrogen [Mass/Vol] 16 mg/dL Normal 7-21 [facility] Comment on above: Order Comment: Speci men Type: BLOOD SPECIMENOrdering Facility: [facility] Address: [address] [place] [address] Performed By: #### 2 4323-8 ####[facility] LABCLIA [id number] [address] [place] ECG COMPLETEon 03-25-2023 ECG COMPLETE Ventricular Rate : 8 9 BPM Atrial Rate : 89 BPM P-R Interval : 146 ms QRS Duration : 72 ms Q-T Interval : 370 ms QTC Calculation(Bazett) : 450 ms Calculated P [place] : 21 degrees Calculated R [place] : -6 degrees Calculated T [place] : 3 degrees NORMAL SINUS RHYTHM . BORDERLINE ECG Confirmed by DO CHRISTINE BRUCE ([id number]), advertising editor YONY CHRIS ([id number]) on 03/27/2023 9:35:29 AM NAME : LUCILA TINEO PID : [id number] : 1950 Gender : Female Race : ORD : [id number] Procedure Date : Mar 25 2023 11:38:10 Edit Date : Mar 27 2023 09:35:30 Diagnosis: NORMAL SINUS RHYTHM . BORDERLINE ECG Confirmed by DO CHRISTINE BRUCE ([id number]), advertising editor YONY CHRIS ([id number]) on 03/27/2023 9:35:29 AM Test Reason : Chest Pain Location : 2 : EDNS E018 Overread By : DO CHRISTINE BRUCE Edited By : YONY CHRIS Referred By : , Acquired by : Nicky MATHEWS [facility] ED NOTEon 03-25-2023 ED NOTE HNO ID: [id number] Author: SEPIDEH DE DIOS, Medic Service: Emergency Medicine Author Type: Senior Qualitative Researcher and Grants Analyst Type: ED Notes Filed: 03/25/2023 16:57 Note Text: 3rd trop sent via straight stick in left hand Normal [facility] ED NOTE HNO ID: [id number] Author: ESTHELA RAMAN, SHREYA Service: ? Author Type: Registered Nurse Type: ED Notes Filed: 03/25/2023 11:23 Note Text: Bed: E18-11 Expected date: Expected time: Means of arrival: Comments: HUGO Normal [facility] ED PROV NOTEon 03-25-2023 ED PROV NOTE HNO ID: [id number] Author: EDWARD CHRISTINE DO Service: Emergency Medicine [...] Clinical Impression ED Course as of 03/25/23 5971 Edward Christine (Soham)'s Documentation ThuMar 25, 2023 1205 EKG STAT Normal sinus rhythm, rate 89, normal intervals, no STEMI 1313 Glucose(!): 435 Elevated glucose, did not take morning dose of insulin. Given 10units as per her home sliding scale and IVF Clinical Impressions as of 03/25/23 1736 Chest pain, unspecified type Coronary artery disease involving chemehuevi coronary artery of chemehuevi heart without angina pectoris Uncontrolled type 2 [...] emergency depar (more content not included)... Normal [facility] HIGH SENSITIVITY TROPONIN T (INITIAL)on 03-25-2023 Troponin T.cardiac High sensitivity method [Mass/Vol] 18 ng/L High <12 [facility] Comment on above: Order Comment: Letty sanchez Type: BLOOD SPECIMENOrdering Facility: [facility] Address: [address] [place] [address] Result Comment: When assessing risk for acute [...] 30 day MACE. Performed By: #### L [id number] ####[facility] LABCLIA [id number] [facility] [id number] [address] [facility] HIGH SENSITIVITY TROPONIN T (SECOND)on 03-25-2023 Troponin T.cardiac High sensitivity method [Mass/Vol] 17 ng/L High <12 [facility] Comment on above: Order Comment: Letty sanchez Type: BLOOD SPECIMENOrdering Facility: [facility] Address: [address] [place] [address] Result Comment: When assessing risk for acute [...] 30 day MACE. Performed By: #### L [id number] ####[facility] LABIA [id number] [place] [id number] [place] HIGH SENSITIVITY TROPONIN T (THIRD) 3 HRS AFTER INITIALon 03-25-2023 Troponin T.cardiac High sensitivity method [Mass/Vol] 18 ng/L High <12 [facility] Comment on above: Order Comment: Speci men Type: BLOOD SPECIMENOrdering Facility: [facility] Address: [address] [place] [address] Result Comment: When assessing risk for acute [...] 30 day MACE. Performed By: #### L [id number] ####[facility] LABCLIA [id number] [place] [address] [place] XR CHEST 2V [...] since 09/20/20 most concerning for neoplasm Emphysema Instrument Specialist: МАРИНА Transcribe Date/Time: Mar 25 2023 12:49P Dictated by : KHLOE GAYLE MD This examination was interpreted and the report reviewed and electronically signed by: KHLOE GAYLE MD on Mar 25 2023 1:04PM EST [id number] Normal [facility] CNPNon 03-13-2023 CNPN Telephone (PODCCP) LUCILA TINEO ([id number]) 1950 F Date Time Provider Department 03/13/23 DARRYL SAUER PODCCP During your visit today, we recorded the following information about you: Darryl Sauer, RN 03/13/2023 3:39 PM Signed Reason for call: Mila called and she would like to schedule an appointment for Lucila with Dr Hawk. Looking for a Thursday apt. Contact Name: Mila Kramer Home and cell number: [phone] Diagnosis: TAAA. Rapid new growth Kind RegardsDarryl [...] Encounter Status:Closed by DARRYL SAUER on 03/13/23 [facility] Fernando 01-02-2023 CNPN Telephone (NSEVMN) LUCILA TINEO ([id number]) 1950 F Date Time Provider Department 01/02/23 JAH SHARPE [facility] During your visit today, we recorded the following information about you: Lane Vogt RN 01/02/2023 1:34 PM Signed Voice mail left for daughter to discuss plan of care for follow up of cerebral aneurysm as discussed with Dr Sharpe at appointment. Imaging in 6 months versus cerebral angiogram. Requested daughter to either call this office or send a [facility] message with preference Elisa Lees 01/07/2023 12:30 PM Signed Daughter, Mila Kramer returned call - please call [phone]. Lane Vogt RN 01/07/2023 12:43 PM Signed Attempted to return call, voice mail left for daughter with office number to return call to this office at her convenience. Jenny Haines 01/07/2023 2:14 PM Signed Please call daughter back at [phone]. Until 4pm. 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 no, who is the referring provider : Osei Roe [employer] in [facility], [place]/His direct office number if any questions: [phone] Is this a direct referral? yes neurosurgeon Have you been recommended for surgery or procedure? Yes. coiling Are you seeking a second opinion? Yes. Do you have a MRI/MRA/CT/Ultrasound for this diagnosis? Yes. Type of imaging CT's, name/address of facility where completed [employer]. [Only has reports in folder, no images] [...] 2:22 PM Addendum [facility] December 04, 2022 -12.02.22 Dr. Roe Progress Notes scanned to chart. PENDING: -2022 Imaging -Medical Hx AND Imaging Reports Walked discs over to imaging library + gave to Adry to upload MAGDALENE. Successfully sent CARRI AND [employer]ex overnight label via [employer]~ Tracking#[id number] December 05, 2022 10:30 AM 07 [employer]Ex Priority Overnight? $14.14 From: Theresa Andre Last change on 12/04/2022 12:16:46 pm Sent on 12/04/2022 12:16:33 pm Completed Tonja Andre 12/09/2022 2:25 PM Addendum OSH imaging/records received from [facility]: December 08, 2022 -12.02.22 Dr. [...] 100 unit (more content not included)... Normal [facility] SCREENING MAMMOGRAM W/SAULO, BILATERAL*on 04-24-2022 SCREENING MAMMOGRAM [...] VERY IMPORTANT TO YOUR HEALTH. THE CURRENT [place] [employer] GUIDELINES RECOMMENDS ANNUAL MAMMOGRAPHY BEGINNING AT AGE 40 THIS FACILITY USES A REMINDER SYSTEM TO ENSURE ALL PATIENTS RECEIVE REMINDER NOTIFICATIONS AT THE APPROPRIATE TIME BASED ON THE RECOMMENDATIONS OF THIS EXAM. Report reported and signed by Silviano Roth on 04/25/2022 0759 Normal [facility] [employer] Office Visit (Cardiology)on 12-11-2021 Follow-up visit Diagnoses/Problems [...] we can help. You may also call [phone] for free resources and assistance.; Status:Complete - Retrospective Authorization; Done: [id number] Patient Instructions Please bring all medicines, vitamins, [...] SolutionAs directed. Allergies Medication Penicillins Recorded By: Celien Marrero; 11/06/2020 3:13:58 PM Social History Problems Caffeine use (V49.89) (Z78.9) 1 TEA DAILY Current every day smoker (305.1) (F17.200) 1/2 PPD No alcohol use No illicit drug use Vitals Vital Signs Recorded: 11Dec2021 11:20AM Heart Rate76, L Radial Bsqfpzzd731, LUE, Sitting Wendbxhvz28, LUE, Sitting Height5 ft 4 in Ldrqhv602 lb BMI Vctwgylwdp58.98 kg/m2 BSA Calculated1.79 Tobacco Usea) Yes Patient encouraged to stop using tobacco productsYes PHQ-2 #1. Over the last 2 weeks have you felt down, depressed or hopeless? (If yes, answer PHQ-9 below)No PHQ-2 #2. Over the last 2 weeks have you felt little interest or pleasure in doing things? (If yes, answer PHQ-9 below)No Fa (more content not included)... Normal [facility] Tobacco Screening.on Adult depression screening assessment No [facility] [employer] Traxx 250 DO Work Phone: Fall risk assessment b) One or more fall s in the last year [facility] Referral.IM DO Work Phone: Tobacco use status CPHS a) Yes [facility] [employer] 250 DO Work Phone: Tobacco Screening. Yes [facility] Heart-[employer] 250 DO Work Phone: XR Spine Lumbar Complete w/F tyrone AND [place] 11-18-2021 XR Spine Lumbar Complete w/Flex AND [...] by Silviano Roth on 11/18/2021 1519 Normal [facility] US Venous, Bilateral, Lower [place] 10-02-2021 US Venous, Bilateral, Lower Ext FINDINGS: [...] by Silviano Roth on 10/03/2021 0652 Normal [facility] Office Visit (Cardiology)on 02-05-2021 Follow-up visit Diagnoses/Problems Assessed Hypertension (401.9) (I10) Remains suboptimal CAD (coronary artery disease) (414.00) (I25.10) July 2020 ACS admit 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 Fully [...] smoker (305.1) (more content not included)... Normal [facility] Tobacco Screening.on Fall risk assessment a) No falls within the last year [facility] Heart-[place] 250 DO Work Phone: Tobacco use status CPHS a) Yes [facility] Heart-[place] 250 DO Work Phone: Tobacco Screening. Yes [facility] Heart-[place] 250 DO Work Phone: Tobacco Screening.on Fall risk assessment a) No falls within the last year [facility]-[place] 600 DO Work Phone: Tobacco use status CPHS a) Yes [facility] 600 DO Work Phone: Tobacco Screening. Yes [facility] Heart-[place] 600 DO Work Phone: Comprehensive Metabolic Pane dom 08-08-2020 Albumin [Mass/Vol] 3.1 g/dL Low 3.2-5.5 [facility] Comment on above: Performed By: #### C MP #### [facility] [address] Albumin/Globulin [Mass ratio] 0.9 {ratio} Normal [facility] Comment on above: Performed By: #### C MP #### [facility] [address] [place] [address] ALP [Catalytic activity/Vol] 98 U/L High 32-92 [facility] Comment on above: Performed By: #### C MP #### [address] ALT [Catalytic activity/Vol] 17 U/L Normal 10-60 [facility] Comment on above: Performed By: #### C MP #### [address] AST [Catalytic activity/Vol] 24 U/L Normal 10-42 [facility] Comment on above: Performed By: #### C MP #### [address] Bilirubin [Mass/Vol] 0.6 mg/dL Normal 0.3-1.2 [facility] Comment on above: Performed By: #### C MP #### [address] Calcium [Mass/Vol] 8.8 mg/dL Normal 8.2-10.2 [facility] Comment on above: Performed By: #### C MP #### [address] Chloride [Moles/Vol] 103 mmol/L Normal 95-114 [facility] Comment on above: Performed By: #### C MP #### [address] CO2 [Moles/Vol] 20.4 mmol/L Low 22.0-30.0 [facility] Comment on above: Performed By: #### C MP #### [address] Creatinine [Mass/Vol] 1.06 mg/dL High 0.44-1.03 [facility] Comment on above: Performed By: #### C MP #### [address] Creatinine Clr Calc Pharmacy 49.44 Normal [facility] Comment on above: Result Comment: PERF ORMED BY: [address] [place] [address] PATHOLOGIST BIRD TENDER DOMINGA SOLIMAN M.D. Performed By: #### C MP #### [address] Estimated GFR ( Grace > 60 [facility] Comment on above: Result Comment: GFR estimated reference range: According to KDOQI guidelines, <60 ml/min/1.73m2 is sufficient to diagnose a patient with chronic kidney disease. Performed By: #### C MP #### [place] [address] [place] Estimated GFR (Non- Am 51 [facility] Comment on above: Performed By: #### C MP #### [address] Globulin (S) [Mass/Vol] 3.3 g/dL [facility] Comment on above: Performed By: #### C MP #### [address] Glucose [Mass/Vol] 282 mg/dL High 70-100 [facility] Comment on above: Result Comment: [place] Glucose Reference Range is dependent on time and content of last meal. Glucose of more than 200 mg/dL in a nonstressed, ambulatory subject supports the diagnosis of Diabetes Mellitus. ADA recommended reference range Performed By: #### C MP #### [place] [address] [place] Potassium [Moles/Vol] 4.5 mmol/L Normal 3.5-5.1 [facility] Comment on above: Performed By: #### C MP #### [place] [address] [place] Protein [Mass/Vol] 6.4 g/dL Normal 6.1-7.9 [facility] Comment on above: Performed By: #### C MP #### [place] [address] [place] Sodium [Moles/Vol] 134 mmol/L Low 136-146 [facility] Comment on above: Performed By: #### C MP #### [facility] [address] [place] [address] Urea nitrogen [Mass/Vol] 29 mg/dL High 11-22 [facility] Comment on above: Performed By: #### C MP #### [facility] [address] [place] [address] ECG 12 lead ECGon 08-08-2020 ECG 12 lead ECG [facility] Main [place] [address] [place] [address] Electrocardiograph Report Signed Patient: Lucila Tineo MR#: [id number] : 1950 Acct:[id number] Age/Sex: 70 / F ADM Date: 08/06/20 Loc: Room: [address] [place] [address] Type: ADM IN Attending Dr: Drew Patterson [...] MD 08/08/20 0734 Signed By: 08/08/20 1017 [facility] Glucose Poct Glucometerson 0 08-08-2020 Commemt1 Glu2: Cleaned Meter Normal [place] Comment on above: Result Comment: PERF ORMED BY: [place] [address] PATHOLOGIST BIRD TENDER DOMINGA SOLIMAN M.D. Performed By: #### P T, CBC, PTT #### [address] Glucose [Mass/Vol] 354 mg/dL Normal [facility] Comment on above: Result Comment: [place] om Glucose Reference Range is dependent on time and content of last meal. Glucose of more than 200 mg/dL in a nonstressed, ambulatory subject supports the diagnosis of Diabetes Mellitus. Performed By: #### P T, CBC, PTT #### [address] Commemt1 Glu2: Cleaned Meter Normal [place] Comment on above: Result Comment: PERF ORMED BY: [place] [address] PATHOLOGIST BIRD TENDER DOMINGA SOLIMAN M.D. Performed By: #### P T, CBC, PTT #### [address] Glucose [Mass/Vol] 380 mg/dL Normal [facility] Comment on above: Result Comment: [place] om Glucose Reference Range is dependent on time and content of last meal. Glucose of more than 200 mg/dL in a nonstressed, ambulatory subject supports the diagnosis of Diabetes Mellitus. Performed By: #### P T, CBC, PTT #### [address] Glucose [Mass/Vol] 80 mg/dL Normal [facility] Comment on above: Result Comment: [place] om Glucose Reference Range is dependent on time and content of last meal. Glucose of more than 200 mg/dL in a nonstressed, ambulatory subject supports the diagnosis of Diabetes Mellitus. PERFORMED BY: [address] [place] [address] PATHOLOGIST BIRD TENDER DOMINGA SOLIMAN M.D. Performed By: #### P T, CBC, PTT #### [address] Commemt1 [facility] Comment on above: Result Comment: Glu2 : FOLLOW HYPOGLYCEMIC Performed By: #### P T, CBC, PTT #### [facility] [address] Commemt2 Cleaned Meter Normal [facility] Comment on above: Performed By: #### P T, CBC, PTT #### [facility] [address] Commemt3 WILL NOTIFY DR/RN Normal [facility] Comment on above: Result Comment: PERF ORMED BY: [place] [address] PATHOLOGIST BIRD TENDER DOMINGA SOLIMAN M.D. Performed By: #### P T, CBC, PTT #### [address] Glucose [Mass/Vol] 42 mg/dL Off scale low [facility] Comment on above: Result Comment: [facility] Glucose Reference Range is dependent on time and content of last meal. Glucose of more than 200 mg/dL in a nonstressed, ambulatory subject supports the diagnosis of Diabetes Mellitus. Performed By: #### P T, CBC, PTT #### [address] Troponin I(TnI)on 08-08-2020 Troponin I.cardiac [Mass/Vol] 2.45 ng/mL Off scale high 0-0.02 [facility] Comment on above: Result Comment: KRISTI ID Cut off value > or equal to 0.03 ng/mL in conjunction with clinical conditions of myocardial infarction. ([email or web address].org/guidelines) PERFORMED BY: [address] [place] [address] PATHOLOGIST BIRD TENDER DOMINGA SOLIMAN M.D. Performed By: #### T ROP #### [facility] [address] [place] [address] A1C with Estimated Average G luon 08-07-2020 Glucose [Mass/Vol] 183 mg/dL Normal [facility] Comment on above: Result Comment: PERF ORMED BY: [address] [place] [address] PATHOLOGIST BIRD TENDER DOMINGA SOLIMAN M.D. Performed By: #### G LULS #### Point of Care testing , HbA1c (Bld) [Mass fraction] 8.0 % High 4.3-5.6 [facility] Comment on above: Result Comment: Incr eased risk for diabetes: 5.7 - 6.4 diabetes: >6.4 glycemic control for adults with diabetes: <7.0 Performed By: #### G LULS #### Point of Care testing , Complete Blood Count Auto Di ffon 08-07-2020 Basophils (Bld) [#/Vol] 0.1 10*3/uL Normal 0.0-0.2 [facility] Comment on above: Result Comment: PERF ORMED BY: [facility] [address] [address] PATHOLOGIST BIRD TENDER DOMINGA SOLIMAN M.D. Performed By: #### G LULS #### Point of Care testing , Basophils/100 WBC (Bld) 1.4 % Normal . [facility] Comment on above: Performed By: #### G LULS #### Point of Care testing , Eosinophils (Bld) [#/Vol] 0.1 10*3/uL Normal 0.0-0.45 [facility] Comment on above: Performed By: #### G LULS #### Point of Care testing , Eosinophils/100 WBC (Bld) 2.6 % Normal . [facility] Comment on above: Performed By: #### G LULS #### Point of Care testing , Erythrocyte distribution width (RBC) [Ratio] 15.6 % High 11.9-15.3 [facility] Comment on above: Performed By: #### G LULS #### Point of Care testing , Hematocrit (Bld) [Volume fraction] 39.8 % Normal 34.0-46.4 [facility] Comment on above: Performed By: #### G LULS #### Point of Care testing , Hemoglobin (Bld) [Mass/Vol] 13.8 g/dL Normal 11.8-15.4 [facility] Comment on above: Performed By: #### G LULS #### Point of Care testing , Lymphocytes (Bld) [#/Vol] 1.5 10*3/uL Normal 1.00-4.8 [facility] Comment on above: Performed By: #### G SHANEKA #### Point of Care testing , Lymphocytes/100 WBC (Bld) 26.4 % Normal . [facility] Comment on above: Performed By: #### G ARVINDLS #### Point of Care testing , MCH (RBC) [Entitic mass] 30.9 pg Normal 24.7-34.3 [facility] Comment on above: Performed By: #### G ARVINDLS #### Point of Care testing , MCV (RBC) [Entitic vol] 89.0 fL Normal 80-100 [facility] Comment on above: Performed By: #### [place] SAMUELSLS #### Point of Care testing , Mean Corpuscular HGB Conc 34.8 g/dL Normal 32.0-35.0 [facility] Comment on above: Performed By: #### G ARVINDLS #### Point of Care testing , Monocytes (Bld) [#/Vol] 0.4 10*3/uL Normal 0.0-0.8 [facility] Comment on above: Performed By: #### [place] MUNROE #### Point of Care testing , Monocytes/100 WBC (Bld) 7.0 % Normal . [facility] Comment on above: Performed By: #### G ARVINDLS #### Point of Care testing , Neutrophils (Bld) [#/Vol] 3.6 10*3/uL Normal 1.8-7.7 [facility] Comment on above: Performed By: #### G ARVINDLS #### Point of Care testing , Neutrophils/100 WBC (Bld) 62.6 % Normal . [facility] Comment on above: Performed By: #### G ARVINDLS #### Point of Care testing , Nucleated RBC/100 WBC (Bld) [Ratio] 0.4 % Normal 0-0.5 [facility] Comment on above: Performed By: #### G ARVINDLS #### Point of Care testing , Platelet mean volume (Bld) [Entitic vol] 9.1 fL Normal 6.3-10.7 [facility] Comment on above: Performed By: #### G LULS #### Point of Care testing , Platelets (Bld) [#/Vol] 201 10*3/uL Normal 150-450 [facility] Comment on above: Performed By: #### G LULS #### Point of Care testing , RBC (Bld) [#/Vol] 4.47 10*6/uL Normal 3.60-5.00 [place] Comment on above: Performed By: #### G LULS #### Point of Care testing , WBC (Bld) [#/Vol] 5.7 10*3/uL Normal 4.5-11.0 [facility] Comment on above: Performed By: #### G LULS #### Point of Care testing , Basophils (Bld) [#/Vol] 0.1 10*3/uL Normal 0.0-0.2 [facility] Comment on above: Result Comment: PERF ORMED BY: [place] [address] PATHOLOGIST BIRD TENDER DOMINGA SOLIMAN M.D. Performed By: #### P T, CBC, PTT #### [facility] [address] [place] [address] Basophils/100 WBC (Bld) 0.7 % Normal . [facility] Comment on above: Performed By: #### P T, CBC, PTT #### [facility] [address] [place] [address] [place] Eosinophils (Bld) [#/Vol] 0.1 10*3/uL Normal 0.0-0.45 [facility] Comment on above: Performed By: #### P T, CBC, PTT #### [facility] [address] [place] [address] [place] Eosinophils/100 WBC (Bld) 1.5 % Normal . [facility] Comment on above: Performed By: #### P T, CBC, PTT #### [facility] [address] [place] [address] [place] Erythrocyte distribution width (RBC) [Ratio] 15.4 % High 11.9-15.3 [facility] Comment on above: Performed By: #### P T, CBC, PTT #### [address] Hematocrit (Bld) [Volume fraction] 41.4 % Normal 34.0-46.4 [facility] Comment on above: Performed By: #### P T, CBC, PTT #### [address] Hemoglobin (Bld) [Mass/Vol] 14.0 g/dL Normal 11.8-15.4 [facility] Comment on above: Performed By: #### P T, CBC, PTT #### [address] Lymphocytes (Bld) [#/Vol] 2.0 10*3/uL Normal 1.00-4.8 [facility] Comment on above: Performed By: #### P T, CBC, PTT #### [address] Lymphocytes/100 WBC (Bld) 30.1 % Normal . [facility] Comment on above: Performed By: #### P T, CBC, PTT #### [address] MCH (RBC) [Entitic mass] 30.4 pg Normal 24.7-34.3 [facility] Comment on above: Performed By: #### P T, CBC, PTT #### [address] MCV (RBC) [Entitic vol] 89.6 fL Normal 80-100 [facility] Comment on above: Performed By: #### P T, CBC, PTT #### [address] Mean Corpuscular HGB Conc 33.9 g/dL Normal 32.0-35.0 [facility] Comment on above: Performed By: #### P T, CBC, PTT #### [address] Monocytes (Bld) [#/Vol] 0.4 10*3/uL Normal 0.0-0.8 [facility] Comment on above: Performed By: #### P T, CBC, PTT #### [facility] [address] [place] [address] [place] Monocytes/100 WBC (Bld) 6.4 % Normal . [facility] Comment on above: Performed By: #### P T, CBC, PTT #### [facility] [address] Neutrophils (Bld) [#/Vol] 4.2 10*3/uL Normal 1.8-7.7 [facility] Comment on above: Performed By: #### P T, CBC, PTT #### [address] Neutrophils/100 WBC (Bld) 61.3 % Normal . [facility] Comment on above: Performed By: #### P T, CBC, PTT #### [facility] [address] Nucleated RBC/100 WBC (Bld) [Ratio] 0.1 % Normal 0-0.5 [facility] Comment on above: Performed By: #### P T, CBC, PTT #### [address] Platelet mean volume (Bld) [Entitic vol] 8.9 fL Normal 6.3-10.7 [facility] Comment on above: Performed By: #### P T, CBC, PTT #### [facility] [address] [place] [address] [place] Platelets (Bld) [#/Vol] 197 10*3/uL Normal 150-450 [facility] Comment on above: Performed By: #### P T, CBC, PTT #### [facility] [address] [place] [address] [place] RBC (Bld) [#/Vol] 4.62 10*6/uL Normal 3.60-5.00 [place] Comment on above: Performed By: #### P T, CBC, PTT #### [facility] [address] WBC (Bld) [#/Vol] 6.8 10*3/uL Normal 4.5-11.0 [facility] Comment on above: Performed By: #### P T, CBC, PTT #### [facility] [address] Comprehensive Metabolic Pane dom 08-07-2020 Albumin [Mass/Vol] 3.4 g/dL Normal 3.2-5.5 [facility] Comment on above: Performed By: #### G SHANEKA #### Point of Care testing , Albumin/Globulin [Mass ratio] 1.0 {ratio} Normal [facility] Comment on above: Performed By: #### [place] MUNROE #### Point of Care testing , ALP [Catalytic activity/Vol] 107 U/L High 32-92 [facility] Comment on above: Performed By: #### [place] MUNROE #### Point of Care testing , ALT [Catalytic activity/Vol] 17 U/L Normal 10-60 [facility] Comment on above: Performed By: #### [place] MUNROE #### Point of Care testing , AST [Catalytic activity/Vol] 25 U/L Normal 10-42 [facility] Comment on above: Performed By: #### [place] MUNROE #### Point of Care testing , Bilirubin [Mass/Vol] 0.9 mg/dL Normal 0.3-1.2 [facility] Comment on above: Performed By: #### [place] MUNROE #### Point of Care testing , Calcium [Mass/Vol] 9.1 mg/dL Normal 8.2-10.2 [facility] Comment on above: Performed By: #### [place] MUNROE #### Point of Care testing , Chloride [Moles/Vol] 105 mmol/L Normal 95-114 [facility] Comment on above: Performed By: #### [place] MUNROE #### Point of Care testing , CO2 [Moles/Vol] 20.9 mmol/L Low 22.0-30.0 [facility] Comment on above: Performed By: #### G LULS #### Point of Care testing , Creatinine [Mass/Vol] 0.96 mg/dL Normal 0.44-1.03 [facility] Comment on above: Performed By: #### G ARVINDLS #### Point of Care testing , Creatinine Clr Calc Pharmacy 54.35 [facility] Comment on above: Performed By: #### G LULS #### Point of Care testing , Estimated GFR ( Grace > 60 [facility] Comment on above: Result Comment: GFR estimated reference range: According to KDOQI guidelines, <60 ml/min/1.73m2 is sufficient to diagnose a patient with chronic kidney disease. Performed By: #### G LULS #### Point of Care testing , Estimated GFR (Non- Am 57 [facility] Comment on above: Performed By: #### G ARVINDLS #### Point of Care testing , Globulin (S) [Mass/Vol] 3.5 g/dL [facility] Comment on above: Performed By: #### G ARVINDLS #### Point of Care testing , Glucose [Mass/Vol] 391 mg/dL High 70-100 [facility] Comment on above: Result Comment: [place] Glucose Reference Range is dependent on time and content of last meal. Glucose of more than 200 mg/dL in a nonstressed, ambulatory subject supports the diagnosis of Diabetes Mellitus. ADA recommended reference range Performed By: #### G ARVINDLS #### Point of Care testing , Potassium [Moles/Vol] 4.4 mmol/L Normal 3.5-5.1 [facility] Comment on above: Performed By: #### G ARVINDLS #### Point of Care testing , Protein [Mass/Vol] 6.9 g/dL Normal 6.1-7.9 [facility] Comment on above: Performed By: #### G ARVINDLS #### Point of Care testing , Sodium [Moles/Vol] 136 mmol/L Normal 136-146 [facility] Comment on above: Performed By: #### G ARVINDLS #### Point of Care testing , Urea nitrogen [Mass/Vol] 19 mg/dL Normal 9-23 [facility] Comment on above: Performed By: #### [place] MUNROE #### Point of Care testing , Albumin [Mass/Vol] 3.4 g/dL Normal 3.2-5.5 [facility] Comment on above: Performed By: #### G SHANEKA #### Point of Care testing , Albumin/Globulin [Mass ratio] 0.9 {ratio} [facility] Comment on above: Performed By: #### [place] MUNROE #### Point of Care testing , ALP [Catalytic activity/Vol] 100 U/L High 32-92 [facility] Comment on above: Performed By: #### [place] MUNROE #### Point of Care testing , ALT [Catalytic activity/Vol] 17 U/L Normal 10-60 [facility] Comment on above: Performed By: #### [place] MUNROE #### Point of Care testing , AST [Catalytic activity/Vol] 34 U/L Normal 10-42 [facility] Comment on above: Performed By: #### [place] MUNROE #### Point of Care testing , Bilirubin [Mass/Vol] 0.8 mg/dL Normal 0.3-1.2 [facility] Comment on above: Performed By: #### [place] MUNROE #### Point of Care testing , Calcium [Mass/Vol] 9.2 mg/dL Normal 8.2-10.2 [facility] Comment on above: Performed By: #### [place] MUNROE #### Point of Care testing , Chloride [Moles/Vol] 104 mmol/L Normal 95-114 [facility] Comment on above: Performed By: #### [place] MUNROE #### Point of Care testing , CO2 [Moles/Vol] 20.0 mmol/L Low 22.0-30.0 [facility] Comment on above: Performed By: #### [place] MUNROE #### Point of Care testing , Creatinine [Mass/Vol] 0.95 mg/dL Normal 0.44-1.03 [facility] Comment on above: Performed By: #### [place] MUNROE #### Point of Care testing , Creatinine Clr Calc Pharmacy 55.10 [facility] Comment on above: Result Comment: PERF ORMED BY: [facility] [place] [address] PATHOLOGIST BIRD TENDER DOMINGA SOLIMAN M.D. Performed By: #### G LULS #### Point of Care testing , Estimated GFR ( Grace > 60 [facility] Comment on above: Result Comment: GFR estimated reference range: According to KDOQI guidelines, <60 ml/min/1.73m2 is sufficient to diagnose a patient with chronic kidney disease. Performed By: #### G LULS #### Point of Care testing , Estimated GFR (Non- Am 58 [facility] Comment on above: Performed By: #### G LULS #### Point of Care testing , Globulin (S) [Mass/Vol] 3.6 g/dL [facility] Comment on above: Performed By: #### G LULS #### Point of Care testing , Glucose [Mass/Vol] 271 mg/dL High 70-100 [facility] Comment on above: Result Comment: [place] Glucose Reference Range is dependent on time and content of last meal. Glucose of more than 200 mg/dL in a nonstressed, ambulatory subject supports the diagnosis of Diabetes Mellitus. ADA recommended reference range Performed By: #### G LULS #### Point of Care testing , Potassium [Moles/Vol] 4.0 mmol/L Normal 3.5-5.1 [facility] Comment on above: Performed By: #### G LULS #### Point of Care testing , Protein [Mass/Vol] 7.0 g/dL Normal 6.1-7.9 [facility] Comment on above: Performed By: #### G LULS #### Point of Care testing , Sodium [Moles/Vol] 136 mmol/L Normal 136-146 [facility] Comment on above: Performed By: #### G LULS #### Point of Care testing , Urea nitrogen [Mass/Vol] 15 mg/dL Normal 9-23 [facility] Comment on above: Performed By: #### G LULS #### Point of Care testing , ECH echo transthoracicon [facility] echo transthoracic [facility] Main [place] [address] [place] [address] Echocardiogram Signed Patient: Lucila Tineo MR#: [id number] : 1950 Acct:[id number] Age/Sex: 70 / F ADM Date: 08/06/20 Loc: Room: [address] [place] [address] Type: ADM IN Attending Dr: Drew Patterson MD Ordering Provider: Bravo Abdi MD Date of Service: 08/06/20 [facility] echo transthoracic: NSTEMI, wall motion abnormalities Copies to: MD Cory Del Toro MD, [facility] Height: 64 in Weight: 167 lb [...] DELANO 08/07/201126 Dictated By: Cory Rudd MD, [facility] 08/07/20926 Signed By: 08/07/20 1127 [facility] Glucose Poct Glucometerson 0 08-07-2020 Commemt3 Cleaned Meter [facility] Comment on above: Result Comment: PERF ORMED BY: [address] [place] [address] PATHOLOGIST BIRD TENDER DOMINGA SOLIMAN M.D. Performed By: #### G LULS #### Point of Care testing , Glucose [Mass/Vol] 503 mg/dL Off scale [facility] Comment on above: Result Comment: [facility] Glucose Reference Range is dependent on time and content of last meal. Glucose of more than 200 mg/dL in a nonstressed, ambulatory subject supports the diagnosis of Diabetes Mellitus. Performed By: #### G LULS #### Point of Care testing , Commemt1 Glu2: Cleaned Meter [facility] Comment on above: Result Comment: PERF ORMED BY: [facility] [address] [place] [address] PATHOLOGIST BIRD TENDER DOMINGA SOLIMAN M.D. Performed By: #### G LULS #### Point of Care testing , Glucose [Mass/Vol] 299 mg/dL [facility] Comment on above: Result Comment: [place] Glucose Reference Range is dependent on time and content of last meal. Glucose of more than 200 mg/dL in a nonstressed, ambulatory subject supports the diagnosis of Diabetes Mellitus. Performed By: #### G LULS #### Point of Care testing , Commemt1 [facility] Comment on above: Result Comment: Glu2 : Will Repeat Test Performed By: #### G LULS #### Point of Care testing , Result Comment: Glu2 : WILL NOTIFY DR/RN Commemt2 Cleaned Meter [facility] Comment on above: Result Comment: PERF ORMED BY: [place] [address] PATHOLOGIST BIRD TENDER DOMINGA SOLIMAN M.D. Performed By: #### G LULS #### Point of Care testing , Glucose [Mass/Vol] 429 mg/dL Off scale high [facility] Comment on above: Result Comment: [place] om Glucose Reference Range is dependent on time and content of last meal. Glucose of more than 200 mg/dL in a nonstressed, ambulatory subject supports the diagnosis of Diabetes Mellitus. Performed By: #### G LULS #### Point of Care testing , Commemt1 Glu2: Cleaned Meter [facility] Comment on above: Performed By: #### P T, CBC, PTT #### [facility] [address] [place] [address]/SHRE[facility] Comment on above: Performed By: #### G LULS #### Point of Care testing , Performed By: #### P T, CBC, PTT #### [facility] [address] [place] [address] Commemt3 Will Repeat Test [facility] Comment on above: Result Comment: PERF ORMED BY: [place] [address] PATHOLOGIST BIRD TENDER DOMINGA SOLIMAN M.D. Performed By: #### P T, CBC, PTT #### [facility] [address] [place] [address] Glucose [Mass/Vol] 429 mg/dL Off scale [facility] Comment on above: Result Comment: [place] om Glucose Reference Range is dependent on time and content of last meal. Glucose of more than 200 mg/dL in a nonstressed, ambulatory subject supports the diagnosis of Diabetes Mellitus. Performed By: #### P T, CBC, PTT #### [facility] [address] [place] [address] Commemt1 Glu2: Cleaned Meter Normal [place] Comment on above: Result Comment: PERF ORMED BY: [place] [address] PATHOLOGIST BIRD TENDER DOMINGA SOLIMAN M.D. Performed By: #### G LULS #### Point of Care testing , Glucose [Mass/Vol] 373 mg/dL Normal [facility] Comment on above: Result Comment: [place] om Glucose Reference Range is dependent on time and content of last meal. Glucose of more than 200 mg/dL in a nonstressed, ambulatory subject supports the diagnosis of Diabetes Mellitus. Performed By: #### G LULS #### Point of Care testing , Glucose [Mass/Vol] 261 mg/dL Normal [facility] Comment on above: Result Comment: [place] om Glucose Reference Range is dependent on time and content of last meal. Glucose of more than 200 mg/dL in a nonstressed, ambulatory subject supports the diagnosis of Diabetes Mellitus. PERFORMED BY: [place] [address] PATHOLOGIST BIRD TENDER DOMINGA SOLIMAN M.D. Performed By: #### P T, CBC, PTT #### [facility] [address] [place] [address] Lipid Panelon 08-07-2020 Cholesterol [Mass/Vol] 201 mg/dL High 140-200 [facility] Comment on above: Result Comment: Chol less than 200 mg/dl low risk Chol 201-239 mg/dl borderline risk Chol 240 mg/dl and greater high risk Performed By: #### G LULS #### Point of Care testing , Cholesterol in HDL [Mass/Vol] 49 mg/dL Normal 35-85 [facility] Comment on above: Result Comment: HDL CHOL ATP-III CLASSIFICATION Cardiovascular Risk HDL > or equal to 60 mg/dL LOW HDL < 40 mg/dL HIGH Performed By: #### G LULS #### Point of Care testing , Cholesterol.total/Cho lesterol in HDL [Mass ratio] 4.1 {ratio} Normal <5.0 [facility] Comment on above: Result Comment: PERF ORMED BY: [address] [address] PATHOLOGIST BIRD TENDER DOMINGA SOLIMAN M.D. Performed By: #### G LULS #### Point of Care testing , LDL Cholesterol,Calculate d 127 mg/dL High 0-100 [facility] Comment on above: Result Comment: LDL ATP III CLASSIFICATION LDL less than 100 mg/dL Optimal LDL 100-129 mg/dL Near or above optimal LDL 130-159 mg/dL Borderline high LDL 160-189 mg/dL High LDL greater than 189 mg/dL Very high Performed By: #### G LULS #### Point of Care testing , Triglyceride w/Reflex 126 mg/dL Normal 35-149 [facility] Comment on above: Result Comment: TRIG ATP III CLASSIFICATION TRIG less than 150 mg/dL Normal TRIG 150-199 mg/dL Borderline high TRIG 200-500 mg/dL High TRIG greater than 500 mg/dL Very high Standard traceable to the Center for Disease Conrtrol and Prevention (CDC) test method. Performed By: #### G LULS #### Point of Care testing , VLDL CHOLESTEROL 25 mg/dL Normal [facility] Comment on above: Performed By: #### G LULS #### Point of Care testing , Magnesiumon 08-07-2020 Magnesium [Mass/Vol] 2.0 mg/dL Normal 1.6-2.6 [facility] Comment on above: Performed By: #### G LULS #### Point of Care testing , Partial Thromboplastin Timeo n 08-07-2020 aPTT Coag (Bld) [Time] 42.8 s High 25.1-36.5 [facility] Comment on above: Result Comment: PERF ORMED BY: [facility] [address] [place] [address] PATHOLOGIST BIRD TENDER DOMINGA SOLIMAN M.D. Performed By: #### G LULS #### Point of Care testing , aPTT Coag (Bld) [Time] 33.2 s Normal 25.1-36.5 [facility] Comment on above: Result Comment: PERF ORMED BY: [place] [address] PATHOLOGIST BIRD TENDER DOMINGA SOLIMAN M.D. Performed By: #### P T, CBC, PTT #### [facility] [address] Prothrombin Time INRon 08-07 INR Coag (PPP) [Relative time] 1.0 {INR} Normal [facility] Comment on above: Result [...] Coag (PPP) [Time] 11.4 s Normal 9.0-12.9 [facility] Comment on above: Performed By: #### G LULS #### Point of Care testing , INR Coag (PPP) [Relative time] 1.0 {INR} Normal [facility] Comment on above: Result [...] By: #### P T, CBC, PTT #### [facility] [address] PT Coag (PPP) [Time] 11.2 s Normal 9.0-12.9 [facility] Comment on above: Performed By: #### P T, CBC, PTT #### [facility] [address] Troponin I(TnI)on 08-07-2020 Troponin I.cardiac [Mass/Vol] 3.26 ng/mL Off scale high 0-0.02 [facility] Comment on above: Result Comment: KRISTI ID Cut off value > or equal to 0.03 ng/mL in conjunction with clinical conditions of myocardial infarction. (www.escardio.org/guidelines) PERFORMED BY: [place] [address] PATHOLOGIST BIRD TENDER DOMINGA OSLIMAN M.D. Performed By: #### P T, CBC, PTT #### [facility] [address] [place] [address] [place] Troponin I.cardiac [Mass/Vol] 3.61 ng/mL Off scale high 0-0.02 [facility] Comment on above: Result Comment: KRISTI ID Cut off value > or equal to 0.03 ng/mL in conjunction with clinical conditions of myocardial infarction. (www.escardio.org/guidelines) PERFORMED BY: [place] [address] PATHOLOGIST BIRD TENDER DOMINGA SOLIMAN M.D. Performed By: #### T ROP #### [facility] [address] [place] [address] [place] Troponin I.cardiac [Mass/Vol] 4.39 ng/mL Off scale high 0-0.02 [facility] Comment on above: Result Comment: Resu lts called at 0009 on 08/07/20 KRISTI ID Cut off value > or equal to 0.03 ng/mL in conjunction with clinical conditions of myocardial infarction. (www.escardio.org/guidelines) PERFORMED BY: [place] [address] PATHOLOGIST BIRD TENDER DOMINGA SOLIMAN M.D. Performed By: #### P T, CBC, PTT #### [facility] [address] [place], [place] [id number] [place] ECG 12 lead ECGon 08-06-2020 ECG 12 lead ECG [facility] Main [place] [address] [place] [address] Electrocardiograph Report Signed Patient: Lucila Tineo MR#: [id number] : 1950 Acct:[id number] Age/Sex: 70 / F ADM Date: 08/06/20 Loc: Room: [address] [place] [address] Type: ADM IN Attending Dr: Drew Patterson [...] Castillo MD 08/06/202110 Signed By: 08/07/20 1712 [facility] Vital Signs Date Time Vital Sign Value Performing Clinician Facility 11-17-2023 15:01-0400 Body mass index (BMI) [Ratio] 24.55 kg/m2 Mily Andrade FURS SALESPERSON Work Phone: [facility] 11-17-2023 15:01-0400 Body temperature 97.5 [degF] Mily Andrade FURS SALESPERSON Work Phone: [facility] 11-17-2023 15:01-0400 Body weight 64.86 kg Mily Andrade FURS SALESPERSON Work Phone: [facility] 11-17-2023 15:01-0400 Diastolic blood pressure 84 mm[Hg] Mily Andrade FURS SALESPERSON Work Phone: [facility] 11-17-2023 15:01-0400 Heart rate 88 /min Mily Andrade FURS SALESPERSON Work Phone: [facility] 11-17-2023 15:01-0400 SaO2% (BldA) [Mass fraction] 96 % Mily Gonzalezzpatrick FURS SALESPERSON Work Phone: [facility] 11-17-2023 15:01-0400 Systolic blood pressure 134 mm[Hg] Mily Sandersonpatrick FURS SALESPERSON Work Phone: [facility] 07-07-2023 10:46-0400 Body height 162.6 cm Jah Sharpe MD Work Phone: [facility] 07-07-2023 10:46-0400 Body mass index (BMI) [Ratio] 23 kg/m2 Jah Sharpe MD Work Phone: [facility] 07-07-2023 10:46-0400 Body weight 60.78 kg Jah Sharpe MD Work Phone: [facility] 07-07-2023 10:46-0400 Diastolic blood pressure 52 mm[Hg] Jah Sharpe MD Work Phone: [facility] 07-07-2023 10:46-0400 Heart rate 85 /min Jah Sharpe MD Work Phone: [facility] 07-07-2023 10:46-0400 SaO2% (BldA) [Mass fraction] 96 % Jah Sharpe MD Work Phone: [facility] 07-07-2023 10:46-0400 Systolic blood pressure 123 mm[Hg] Jah Sharpe MD Work Phone: [facility] 03-06-2023 10:08-0500 Body height 162.6 cm Ange Gee MD Work Phone: [employer] 03-06-2023 10:08-0500 Body mass index (BMI) [Ratio] 25.23 kg/m2 Ange Gee MD Work Phone: [facility] 03-06-2023 10:08-0500 Body weight 66.68 kg Ange Gee MD Work Phone: [facility] 03-06-2023 10:08-0500 Diastolic blood pressure 80 mm[Hg] Ange Gee MD [facility] Phone: [facility] 03-06-2023 10:08-0500 Heart rate 87 /min Ange Gee MD [facility] Phone: [facility] 03-06-2023 10:08-0500 SaO2% (BldA) [Mass fraction] 94 % Ange Gee MD Work [facility]: [facility] 03-06-2023 10:08-0500 Systolic blood pressure 132 mm[Hg] Ange Gee MD Work Phone: [facility] 12-11-2021 11:20-0400 Body height 162.56 cm Mily Ashley Andrade Work Phone: [facility] 250 DO Work Phone: 12-11-2021 11:20-0400 Body mass index (BMI) [Ratio] 27.98 kg/m2 Mily Ashley Andrade Work Phone: [facility] 250 DO Work Phone: 12-11-2021 11:20-0400 Body surface area Derived from formula 1.79 m2 Mily Ashley Andrade Work Phone: [facility] 250 DO Work Phone: 12-11-2021 11:20-0400 Body weight 73.94 kg Mily Ashley Andrade Work Phone: [facility] 250 DO Work Phone: 12-11-2021 11:20-0400 Diastolic blood pressure 78 mm[Hg] Mily Ashley Andrade Work Phone: [facility] 250 DO Work Phone: 12-11-2021 11:20-0400 Heart rate 76 /min Mily Ashley Andrade Work Phone: [facility] 250 DO Work Phone: 12-11-2021 11:20-0400 Systolic blood pressure 136 mm[Hg] Mily Ashley Andrade Work Phone: [facility] 250 DO Work Phone: 02-05-2021 11:35-0500 Body height 162.56 cm Mily Ashley Andrade Work Phone: [facility] 250 DO Work Phone: 02-05-2021 11:35-0500 Body mass index (BMI) [Ratio] 28.67 kg/m2 Mily Ashley Andrade Work Phone: [facility] 250 DO Work Phone: 02-05-2021 11:35-0500 Body surface area Derived from formula 1.81 m2 Mily Ashley Andrade Work Phone: [facility] 250 DO Work Phone: 02-05-2021 11:35-0500 Body weight 75.75 kg Mily Ashley Andrade Work Phone: [facility] 250 DO Work Phone: 02-05-2021 11:35-0500 Diastolic blood pressure 81 mm[Hg] Mily Ashley Andrade Work Phone: [facility] 250 DO Work Phone: 02-05-2021 11:35-0500 Heart rate 77 /min Mily Ashley Andrade Work Phone: [facility] 250 DO Work Phone: 02-05-2021 11:35-0500 Systolic blood pressure 157 mm[Hg] Mily Ashley Andrade Work Phone: [facility] 250 DO Work Phone: 12-04-2020 15:01-0400 Diastolic blood pressure 72 mm[Hg] Bruce Elias DO Work Phone: [facility] 600 DO Work Phone: 12-04-2020 15:01-0400 Systolic blood pressure 170 mm[Hg] Bruce Elias DO Work Phone: [facility] 600 DO Work Phone: 12-04-2020 13:53-0400 Body height 162.56 cm Bruce Elias DO Work Phone: [facility] 600 DO Work Phone: 12-04-2020 13:53-0400 Body mass index (BMI) [Ratio] 29.01 kg/m2 Bruce Elias DO Work Phone: [facility] 600 DO Work Phone: 12-04-2020 13:53-0400 Body surface area Derived from formula 1.82 m2 Bruce Elias DO Work Phone: [facility] 600 DO Work Phone: 12-04-2020 13:53-0400 Body weight 76.66 kg Bruce Elias DO Work Phone: [facility] 600 DO Work Phone: 12-04-2020 13:53-0400 Diastolic blood pressure 90 mm[Hg] Bruce Elias DO Work Phone: [facility] 600 DO Work Phone: 12-04-2020 13:53-0400 Heart rate 68 /min Bruce Elias DO Work Phone: [facility] 600 DO Work Phone: 12-04-2020 13:53-0400 Systolic blood pressure 150 mm[Hg] Bruce Elias DO Work Phone: [facility] 600 DO Work Phone: 11-06-2020 15:18-0400 70 1 Bruce Elias DO Work Phone: [facility] 600 DO Work Phone: Comment on above: [id number] Encounters Encounter Date Encounter Type Care Provider Facility Start: 12-08-2023 End: 12-08-2023 ambulatory SONU BRUNER Not Available Start: 12-04-2023 End: 12-04-2023 ambulatory CHYNA Seth JEREMY Not Available Start: 12-02-2023 End: 12-02-2023 Telephone encounter Jah Sharpe MD Work Phone: [facility] Comment on above: Medication Question Paroxysmal atrial fi brillation (CMS/HCC) (Primary Dx) Start: 11-17-2023 End: 11-17-2023 ambulatory MILY ANDRADE Not Available Start: 11-17-2023 End: 11-17-2023 Office outpatient visit 25 minutes Mily Andrade FURS SALESPERSON Work Phone: [facility] Comment on above: Burning with urinati on (Primary Dx); 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 (CMS/HCC); Edema of left lower leg; Laceration of posterior tibial artery, left leg, initial encounter; Edema of left foot; Acute cystitis with hematuria; Unsteady gait when walking; At high risk for falls; Lower extremity edema; Vaginal yeast infection; Acute left otitis media; Cerebrovascular accident (CVA), unspecified mechanism (CMS/HCC); Paroxysmal atrial fibrillation (CMS/HCC) Start: 11-17-2023 End: 11-17-2023 ambulatory MILY ANDRADE Not Available Start: 07-16-2023 Telephone encounter Jah Sharpe MD Work Phone: [facility] Comment on above: Received Outside [employer] (Rec'd lab report from [employer] imported into [employer]) Start: 07-14-2023 Telephone encounter Jah Sharpe MD [...] Phone: [facility] Start: 07-07-2023 End: 07-07-2023 [facility] MILY SANDERSONPATRICK Facility:[facility] Start: 07-07-2023 End: 07-07-2023 Patient encounter procedure Jah Sharpe MD Work Phone: [facility] Comment on above: Unruptured cerebral aneurysm (Primary Dx); Hypertension, unspecified type; Hyperlipidemia, unspecified hyperlipidemia type; Atrial fibrillation, unspecified type (HCC); Ischemic stroke (HCC) Start: 07-07-2023 End: 07-07-2023 [facility] MILY ANDRADE Facility:[facility] Start: 07-07-2023 End: 07-07-2023 Subsequent hospital visit by physician Ct 2 Main Qb (I-Stat) Radiology Comment on above: Nonruptured cerebral aneurysm [I67.1] Start: 06-25-2023 End: 06-25-2023 ambulatory [facility] Start: 04-29-2023 Telephone encounter [facility] Comment on above: Calcified granuloma of lung (CMS-HCC) (Primary Dx) Start: 04-21-2023 End: 04-21-2023 ambulatory MILY ANDRADE Not Available Start: 04-14-2023 Clinisync Result Encounter Radha Herrera MD Work Phone: [facility] Unsolicited Start: 04-14-2023 Clinisync Result Encounter Radha Herrera MD Work Phone: [facility] Unsolicited Start: 03-25-2023 End: 03-25-2023 [facility] Start: 03-25-2023 End: 03-25-[address] [facility] Facility:[facility] Start: 03-06-2023 End: 03-06-2023 ambulatory ANGE GEE [facility] Start: 03-06-2023 End: 03-06-2023 Office outpatient visit 25 minutes Ange Gee MD Work Phone: [facility] Comment on above: Essential hypertensi on (Primary Dx); Paroxysmal atrial fibrillation (CMS-HCC) Start: 03-05-2023 Telephone encounter Corrie Goldstein CMA [facility] Start: 03-02-2023 ambulatory [facility] Start: 03-01-2023 ambulatory [facility] Start: 01-20-2023 ambulatory Jah Sharpe MD Work Phone: [facility] Comment on above: Anticoag Start: 01-16-2023 ambulatory Jah Sharpe MD Work Phone: [facility] Comment on above: Images Start: 01-02-2023 Telephone encounter Jah Sharpe MD Work Phone: [facility] Comment on above: 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 Start: 12-16-2022 End: 12-16-2022 ambulatory Jah Sharpe MD Work Phone: [facility] Comment on above: Unruptured cerebral aneurysm (Primary Dx); Ischemic stroke (HCC); Hypertension, unspecified type; Hyperlipidemia, unspecified hyperlipidemia type; Smoking Start: 12-16-2022 End: 12-16-2022 Telemedicine consultation with patient Jah Sharpe MD Work Phone: [facility] Start: 12-04-2022 Telephone encounter Neurology Provid er [facility] Comment on above: Future Appointment ( New Patient, [place], Any) Start: 08-25-2022 Rx Renewal Mily A Andrade Work Phone: [facility] 250 DO Work Phone: Start: 01-07-2022 Rx Renewal Mily Ashley Andrade Work Phone: [facility] 250 DO Work Phone: Start: 12-11-2021 Office outpatient vi sit 15 minutes Mily Ashley Andrade Work Phone: [facility] 250 DO Work Phone: Start: 12-11-2021 ambulatory Ms. Mily Yoon rachel GonzalezAndrade Facility: Start: 10-11-2021 Telephone encounter Mily Andrade Work Phone: [facility] 250 DO Work Phone: Start: 09-03-2021 Rx Renewal Mily Ashley Andrade Work Phone: [facility] 250 DO Work Phone: Start: 02-05-2021 Office outpatient vi sit 10 minutes Mily Ashley Andrade Work Phone: [facility] 250 DO Work Phone: Start: 02-05-[address] [facility] Start: 12-04-2020 Patient encounter procedure Bruce Elias DO Work Phone: [facility] 600 DO Work Phone: Start: 09-05-2020 End: 03-06-2021 ambulatory SALAS KIRKPATRICK Facility:[facility]1 Echocardiogram normal Mily Ashley Andrade Work Phone: [facility] 250 DO Work Phone: Procedures Date Procedure Procedure Detail Performing Clinician Start: 11-17-2023 Dup-scan xtr veins unilateral/limited study Mily Andrade FURS SALESPERSON Work Phone: Start: 11-17-2023 Culture bacterial quanttative colony count urine Mily Ashley Lupe FURS SALESPERSON Work Phone: Start: 11-17-2023 Urnls dip stick/tabl et rgnt non-auto w/o micrscp Mily Gabi Andrade FURS SALESPERSON Work Phone: Start: 11-17-2023 Hemoglobin glycosyla adarsh a1c Mily Ashley Lupe FURS SALESPERSON Work Phone: Start: 07-07-2023 Ct angiography head w/contrast/noncontrast Ras Gordon FOREIGN SERVICE TEACHER.CASH POSTING SPECIALIST Work Phone: Start: 07-07-2023 Creatinine [Mass/vol ume] in Serum or Plasma [facility] Provider Start: 04-14-2023 TB UA (CLEAN/CATCH) CHARGE ACCOUNT CLERK/MICRO IF IND. Radha Herrera MD Work Phone: [...] Td Vaccines (2 - Td or Tdap) [facility] Start: 06-09-2028 Urine microalbumin profile DTaP,Tdap,Td Vaccine (2 - Td or Tdap) [facility] Start: 06-05-2026 Screening for malign ant neoplasm of colon [facility] Start: 01-16-2026 Diabetes Screening Diabetes Screenin g [facility] Start: 12-26-2024 Glaucoma screening Diabetes: R etinopathy Screening [facility] Start: 07-06-2024 BP Controlled (<130/80) BP Controlle d (<130/80) [facility] Start: 03-06-2024 Adult BMI Screening Adult BMI Screen ing [facility] Start: 03-06-2024 Tobacco Screening Tobacco Screening [facility] Start: 02-16-2024 Hemoglobin A1c measurement Diabetes: Hemoglobin A1C [facility] Start: 01-22-2024 Adult BMI Screening Adult BMI Screen ing [facility] Start: 01-19-2024 Tobacco Screening Tobacco Screening [facility] Start: 12-08-2023 End: 12-08-2023 Patient encounter procedure 12/08/2023 3:15 PM EDT Office Visit [facility] [address] [place] [id number] Sonu Bruner, DPM [address] [place] [address] [facility] Start: 12-04-2023 End: 12-04-2023 Patient encounter procedure 12/04/2023 10:45 AM EDT Office Visit [facility] [address] [place] [phone] Chyna Portillo, [address] [place] [address] [facility] Start: 12-02-2023 Urine screening for protein Diabetes: Urine Protein Screening [facility] Start: 11-01-2023 Covid-19 Vaccine ( season) Covid-19 Vaccine ( season) [facility] Start: 11-01-2023 Influenza vaccination [facility] Start: 08-06-2023 Subsequent hospital visit by physician 08/06/2023 Hospital Encounter Angio [address] [facility] [place] [address] Jah Sharpe MD [address] [place] [address] Unruptured cerebral aneurysm [I67.1] Angio Comment on above: Unruptured cerebral aneurysm [I67.1] Start: 07-17-2023 Hemoglobin A1c measurement HbA1C [facility] Start: 07-13-2023 End: 10-12-2023 aPTT in Platelet poor plasma by Coagulation assay ACTIVATED PARTIAL THROMBOPLASTIN TIME Lab Routine Unruptured cerebral aneurysm Encounter for monitoring antiplatelet therapy Expected: 07/13/2023, Expires: 10/12/2023 [facility] Comment on above: Expected: 07/13/2023 , Expires: 10/12/2023 Start: 07-13-2023 End: 10-12-2023 Basic metabolic 2000 panel - Serum or Plasma BASIC METABOLIC PANEL Lab Routine Unruptured cerebral aneurysm Expected: 07/13/2023, Expires: 10/12/2023 [facility] Comment on above: Expected: 07/13/2023 , Expires: 10/12/2023 Start: 07-13-2023 End: 10-12-2023 CBC panel - Blood by Automated count COMPLETE BLOOD COUNT Lab Routine Unruptured cerebral aneurysm Expected: 07/13/2023, Expires: 10/12/2023 [facility] Work Phone: Comment on above: Expected: 07/13/2023 , Expires: 10/12/2023 Start: 07-13-2023 End: 10-12-2023 PT panel - Platelet poor plasma by Coagulation assay PROTHROMBIN TIME Lab Routine Unruptured cerebral aneurysm Encounter for monitoring antiplatelet therapy Expected: 07/13/2023, Expires: 10/12/2023 [facility] Comment on above: Expected: 07/13/2023 , Expires: 10/12/2023 Start: 06-25-2023 End: 06-25-2023 Patient encounter procedure 06/25/2023 2:00 PM EDT Office Visit [facility] [address] [place] [phone] Jeniffer Jefferson DO [address] [facility] [address] [place] [address] [facility] Start: 05-17-2023 Urine screening for protein Diabetes: Urine Protein Screening [facility] Start: 04-24-2023 Screening for malign ant neoplasm of breast [facility] Start: 04-21-2023 End: 04-21-2023 Patient encounter procedure 04/21/2023 3:00 PM EST Office Visit [facility] [address] [place] [phone] Mily Andrade NP [address] [place] [place] [address] [facility] Start: 04-16-2023 Medicare Annual Well ness (AWV) Medicare Annual Wellness (AWV) [facility] Start: 03-06-2023 End: 03-06-2023 Patient encounter procedure 03/06/2023 10:15 AM EST Office Visit [facility] [address] [facility] [address] [place] [phone] Ange Gee MD [address] [place] [address] [facility] Start: 03-02-2023 Advance Directive Discussion Advance Directive Discussion [facility] Start: 03-02-2023 Behavioral Health Screening Behavioral Health Screening [facility] Start: 12-11-2022 FUV, Provider: Bruce Elias, Status: Pen, Time: 10:20 AM FUV, Provider: Bruce Elias, Status: Pen, Time: 10:20 AM -[facility] 250 DO Work Phone: Start: 10-31-2022 Covid-19 Vaccine ( season) Covid-19 Vaccine ( season) [facility] Start: 10-31-2022 Influenza vaccination [facility] Start: 06-11-2022 Hemoglobin A1c measurement Diabetes: Hemoglobin A1C [facility] Start: 03-02-2022 Advance Directive Discussion Advance Directive Discussion [facility] Start: 03-02-2022 Depression Assessment Depression Ass essment [facility] Start: 12-11-2021 FUV, Provider: Bruce Elias, Status: Pen, Time: 11:20 AM FUV, Provider: Bruce Elias, Status: Pen, Time: 11:20 AM [facility] DO Work Phone: Start: 02-19-2021 NURSEVST, Provider: DAVID LANDEROS FIREWALL SECURITY ENGINEER 1,[id number], Status: Pen, Time: 11:00 AM NURSEVST, Provider: DAVID LANDEROS FIREWALL SECURITY ENGINEER 1,[id number], Status: Pen, Time: 11:00 AM [facility] Work Phone: Start: 01-09-2021 FUV, Provider: Salas Wilson, Status: Pen, Time: 1:30 PM FUV, Provider: Salas Wilson, Status: Pen, Time: 1:30 PM [facility] 600 DO Work Phone: Start: 04-03-2020 Administration of varicella zoster vaccine Zoster (Shingles) Vaccine (2 of 2) [facility] Start: 04-03-2020 Shingrix Vaccine (2 of 2) Shingrix Vaccine (2 of 2) [facility] Start: 2015 Bone Density Screening Bone Density Screening [facility] Start: 2015 Fall Risk Screening Fall Risk Screen ing [facility] Start: 2010 RSV Vaccine (1 - 1-d ose 60+ series) RSV Vaccine (1 - 1-dose 60+ series) [facility] Start: 2010 RSV Vaccine (1 - Ris k 60-74 years 1-dose series) RSV Vaccine (1 - Risk 60-74 years 1-dose series) [facility] Start: 02-22-2000 Screening for malign ant neoplasm of lung Lung Cancer Screening [facility] Start: 02-22-2000 Shingrix Vaccine (1 of 2) Shingrix Vaccine (1 of 2) [facility] Start: 1995 Cologuard (FIT-DNA) Cologuard (FIT-D NA) [facility] Start: 1995 Colonoscopy Colonoscopy [facility] Start: 1995 Colorectal Cancer Screening Colorectal Cancer Screening [facility] Start: [address] COLONOGRAPHY [facility] Start: 1995 Diabetes Screening Diabetes Screenin g [facility] Start: 1995 Fecal Occult Blood Fecal Occult Bloo d [facility] Start: 1995 Lipid 1996 panel - S lilliam or Plasma Lipid Screening [facility] Start: 1995 Screening for malign ant neoplasm of colon [facility] Start: 1995 SIGMOIDOSCOPY SIGMOIDOSCOPY [facility] Start: 1990 Mammography Mammogram Screening [facility] Start: 1969 Urine microalbumin profile DTaP,Tdap,Td Vaccine (1 - Tdap) [facility] Start: 02-22-1968 Adult BMI Follow Up Plan Adult BMI F ollow Up Plan [facility] Start: 02-22-1968 Annual PCP Team [employer] dorina Disease Visit Annual PCP Team Chronic Disease Visit [facility] Start: 02-22-1968 Anxiety Screening Anxiety Screening [facility] Start: 02-22-1968 Depression Screening Depression Scre ing [facility] Start: 02-22-1968 Diabetic foot examination Diabetic Foot Exam [facility] Start: 02-22-1968 Hepatitis B surface antibody level LDL Cholesterol [facility] Start: 02-22-1968 Hepatitis C Screening Hepatitis C [facility] Start: 02-22-1968 Hepatitis C screening Hepatitis C [facility] Start: 1962 Depression Screening Depression Scre ing [facility] Start: 02-22-1960 Diabetic foot examination Diabetic Foot Exam [facility] Start: 02-22-1960 Glaucoma screening Dilated Retinal E xam [facility] Start: 02-22-1960 Hepatitis B screening Urine Al bumin:Creatinine Ratio [facility] Start: 02-22-1956 Pneumococcal Vaccine : 65+ (1 - PCV) Pneumococcal Vaccine: 65+ (1 - PCV) [facility] Start: 1950 Glaucoma screening Diabetic Op hthalmology Exam [facility] Start: 1950 Medicare Annual Well ness Visit Medicare Annual Well[facility] Start: 1950 Screening for malign ant neoplasm of colon [facility] Start: 1950 Tobacco Counseling Tobacco Counselin g [facility] Start: 1950 Urine screening for protein Urine Microalbumin [facility] IR CEREBRAL ARCH & T HREE VESSEL IR CEREBRAL ARCH & THREE VESSEL Radiology Routine Unruptured cerebral aneurysm Ordered: 07/13/2023 [facility] Comment on above: Ordered: 07/13/2023 End: 04-29-2024 Pulmonary function test Complete PFT w/ BD (Spirometry (Flow Volume Loop) pre/post short acting bronchodilator w/ DLCO (diffusion study) and Lung Volume) Pulmonary function test Complete PFT w/ BD (Spirometry (Flow Volume Loop) pre/post short acting bronchodilator w/ DLCO (diffusion study) and Lung Volume) PFT Routine Calcified granuloma of lung ([facility]CC) 1 Occurrences starting 04/29/2023 until 04/29/2024 [facility] Work Phone: Comment on above: 1 Occurrences starti ng 04/29/2023 until 04/29/2024 Slctv cath intrcrnl brnch angio intrl carot/vert SELECTIVE CATHETER PLACEMENT EACH INTRACRANIAL BRANCH OF THE INTERNAL CAROTID OR VERTEBRAL ARTERIES UNILATERAL W/ ANGIOGRAPHY OF THE SELECTED VESSEL CIRCULATION AND ALL ASSOCIATED RADIOLOGICAL SUPERVISION AND INTERPRETATION Unruptured cerebral aneurysm [facility] Immunizations Immunization Date Immunization Notes Care Provider Ronny naylor 05-16-2022 influenza virus vaccine, unspecified formulation Jah Sharpe MD Work Phone: [facility] 04-10-2021 Moderna COVID-19 Vaccine 100 MCG/0.5ML Intramuscular Suspension Mily Andrade Work Phone: [facility] 250 DO Work Phone: 05-09-2020 Lico COVID-19 Vaccine 0.5 ML Intramuscular Suspension Bruce Elias DO Work Phone: [facility] 02-07-2020 influenza, high dose seasonal, preservative-free Bruce Elias DO Work Phone: [facility] 600 DO Work Phone: 02-07-2020 zoster vaccine recombinant Bruce Elias DO Work Phone: [facility] 600 DO Work Phone: 02-07-2020 influenza virus vaccine, unspecified formulation Neurology Provider [facility] 02-07-2020 zoster vaccine, unspecified formulation [facility]stein [facility] 03-02-2019 influenza, seasonal, injectable Bruce Elias DO [facility] Phone: [facility] Work Phone: 02-14-2019 influenza, high dose seasonal, preservative-free Bruce Elias DO Work Phone: [facility] 600 DO Work Phone: 06-09-2018 tetanus toxoid, redu clif diphtheria toxoid, and acellular pertussis vaccine, adsorbed Bruce Elias DO Work Phone: [facility] 600 DO Work Phone: 03-02-2018 pneumococcal polysaccharide vaccine, 23 valent Bruce Elias DO Work Phone: [facility] 600 DO Work Phone: 12-02-2017 influenza, high dose seasonal, preservative-free Bruce Elias DO Work Phone: [facility] 600 DO Work Phone: 02-25-2017 influenza, high dose seasonal, preservative-free Bruce Elias DO Work Phone: [facility] 600 DO Work Phone: 02-17-2017 pneumococcal polysaccharide vaccine, 23 valent Bruce Elias DO Work Phone: [facility] 600 DO Work Phone: 11-06-2015 influenza, injectabl e, quadrivalent, contains preservative Bruce Elias DO Work Phone: [facility] 600 DO Work Phone: 11-06-2015 pneumococcal conjuga te vaccine, 13 valent Bruce Elias DO Work Phone: [facility] 600 DO Work Phone: 12-15-2013 influenza, seasonal, injectable Bruce Elias DO Work Phone: [facility] 600 DO Work Phone: 12-21-2012 influenza, seasonal, injectable Bruce Elias DO Work Phone: [facility] 600 DO Work Phone: 12-16-2006 pneumococcal polysaccharide vaccine, 23 valent Bruce Elias DO Work Phone: [facility] 600 DO Work Phone: 11-18-2006 pneumococcal polysaccharide vaccine, 23 valent Bruce Elias DO Work Phone: [facility] 600 DO Work Phone: Payers Date Payer Category Payer Medicaid [id number] 2023 Medicaid [id number] 2023 Medicaid [id number] 2015 Medicare [id number] 2015 Medicare [id number] 1959 Medicare [id number] 1950 Unknown [id number] 2.16.84 [id number] 1950 Unknown [id number] 2.16. [id number] 1950 Unknown [id number] 2.16. [id number] 1950 Unknown [id number] 2.16.84 [id number] 1950 Unknown [id number] 2.16.8 [id number] 1950 Unknown [id number] 2.16.84 [id number] 1950 Unknown [id number] 2.16.84 [id number] 1950 Unknown [id number] 2.16.84 [id number] 1950 Unknown [id number] 2.16.84 [id number] 1950 Unknown [id number] 2.16.84 [id number] 1950 Unknown [id number] 2.16.84 [id number] 1950 Unknown [id number] 2.16.84 [id number] 1950 Unknown [id number] 2.16.84 [id number] 1950 Unknown [id number] 2.16.84 [id number] Unknown Social History Date Type Detail Facility Start: 10-14-2018 End: 11-17-2023 No alcohol use No alcohol use [facility] Comment on above: 1 TEA DAILY; 1/2 PPD; Start: 10-14-2018 End: 03-25-2023 Tobacco smoking status NHIS Smokes tobacco daily [facility] Start: 03-02-1989 History of tobacco use Cigarette Smo ker [facility] Start: 10-14-2018 End: 11-17-2023 Tobacco use and exposure Smokeless tobacco non-user [facility] Start: 04-21-2019 End: 11-17-2023 Tobacco use panel [facility] National Score (1-10 0), lower number is lower risk Not on file [facility] Start: 1950 Sex Assigned At Female C [facility] Start: 05-14-2022 Gender identity Identifies as female gender (finding) [facility] Start: 12-09-2022 Sexual orientation Heterosexual (fin pedro) [facility] Start: 01-18-2023 End: 03-06-2023 Alcohol intake Ex-drinker (finding) [facility] Start: 1950 Sex Assigned At Not on file P [facility] Start: 12-26-2022 End: 11-17-2023 Tobacco smoking status NHIS Ex-smoker [facility] Start: 03-02-1989 History of tobacco use Current smoke r [facility] Start: 12-02-2023 Alcoholic beverage intake Lifetime non-drinker (finding) [facility] Start: 11-17-2023 Alcohol Comment caffeine: 2-3 cups per day [facility] Medical Equipment Procedure Code Equipment Code Equipment Origin al Text Equipment Identifier Dates Inject 1 each un chano the skin in the morning and 1 each in the evening and 1 each before bedtime. [id number] Start: 07-22-2022 Goals Date Patient Goal Desired Activity /State Personal health goal Comment on above: Formatting of this n ote might be different from the original. Evaluation of progress towards goal: In progress: Return to [place]. Clinical Notes 12-08-2022 to 12-02-2023 Mily Andrade NP - 12/02/2023 12:03 PM EDTTelephone Encounter - Lane Vogt RN - 12/02/2023 9:54 AM EDTTelephone Encounter - Lane Vogt RN - 12/02/2023 9:54 AM EDT Note Date & Type Note Facility 12-02-2023 History of Presen t illness Narrative Prescription sent documented in this encounter [facility] 12-02-2023 Telephone encounter Note Returned call to office, notified that this office did not start the eliquis. It was a historical medication when she first came to the office. Verbalized understanding [facility] 12-02-2023 Miscellaneous Notes Returned call to office, notified that this office did not start the eliquis. It was a historical medication when she first came to the office. Verbalized understanding CV PHONE Name of caller : Dr. Foote PCP Relationship to patient : Caregiver If not self Will need patient permission to release results or disclose health information with called documented in fyi. Patient identified by Name and Date of . ( Lucila Tineo, 1950). Yes Number to return call [phone] Reason for Call: Medication Question: Chyna from Dr. Foote's office would like to know if patient can change to xarelto, because her insurance will not cover the eliquis. They are asking if you originally started patient on eliquis, this is why the question is raised. Please call back Chyna at the above number. Thank you calling [facility] [place]. You will receive a return call within 48 hours ( or 2 business days if close to the weekend). If you feel that this is an urgent issue and needs immediate attention, it is recommended that you contact your primary care provider office or proceed to your nearest Urgent Care Center of Emergency Room ED for evaluation/treatment. documented in this encounter [facility] 12-02-2023 Telephone encounter Note CV PHONE Name of caller : Dr. Foote PCP Relationship to patient : Caregiver If not self Will need patient permission to release results or disclose health information with called documented in fyi. Patient identified by Name and Date of . ( Lucila Tineo, 1950). Yes Number to return call [phone] Reason for Call: Medication Question: Chyna from Dr. Foote's office would like to know if patient can change to xarelto, because her insurance will not cover the eliquis. They are asking if you originally started patient on eliquis, this is why the question is raised. Please call back Chyna at the above number. Thank you calling [facility] [place]. You will receive a return call within 48 hours ( or 2 business days if close to the weekend). If you feel that this is an urgent issue and needs immediate attention, it is recommended that you contact your primary care provider office or proceed to your nearest Urgent Care Center of Emergency Room ED for evaluation/treatment. [facility] Work Phone: 11-17-2023 History of Presen t illness Narrative Images from the original note were not included. Lucila Tineo is a 73 y.o. female presents with chief complaint of Diabetes and UTI HPI: Patient is here for possible uti and also a diabetes appointment. UTI SUBJECTIVE: MEDICATIONS: ALLERGIES Current Outpatient Medications Medication Instructions acetaminophen (Tylenol) 325 MG tablet amLODIPine (NORVASC) 5 mg, Oral, Daily RT Anti-Diarrheal 2 MG tablet apixaban (ELIQUIS) 5 mg, Oral, 2 times daily ASPIRIN 81 MG chewable tablet Oral, Daily atorvastatin (Lipitor) 40 MG tablet Every 24 hours D3-1000 25 MCG (1000 UT) capsule insulin aspart (NovoLOG) 100 UNIT/ML injection INJECT 1U:5GM CARBS BREAKFAST AND LUNCH; 1U:15GM CARBS DINNER PLUS CORRECTION 1U:100 OVER 250. MAX 40 UNITS/DAY insulin glargine (LANTUS) 10 Units, Subcutaneous, Daily RT Insulin Lispro 8 Units, Subcutaneous, 3 times daily with meals Insulin Syringe 31G X 16 0.3 ML misc 1 each, Subcutaneous, 3 times daily levothyroxine (Synthroid) 150 MCG tablet Oral, Daily before breakfast losartan (Cozaar) 50 MG tablet Take one tablets daily by mouth, 90 tablets with no refills ondansetron (ZOFRAN) 4 mg, Oral, Every 8 hours PRN Oyster Shell Calcium 500 MG tablet polyethylene glycol (PEG) 3350 (MIRALAX) 17 g, Oral, Every 48 hours PRN potassium chloride ER (Micro-K) 10 MEQ ER capsule pregabalin (LYRICA) 25 mg, Oral, Daily RT rOPINIRole (REQUIP) 0.5 mg, Oral, Nightly senna-docusate sodium (Senokot-S) 8.6-50 MG tablet 1 tablet, Oral, Daily venlafaxine XR (EFFEXOR XR) 37.5 mg, Oral, Daily with breakfast Allergies Allergen Reactions Penicillins Hives Other Reaction(s): Hives PAST MEDICAL HISTORY: SOCIAL HISTORY SURGICAL HISTORY: Past Medical History: Diagnosis Date AAA (abdominal aortic aneurysm) (CMS/HCC) Arthritis Basal cell carcinoma Bilateral biceps tendonitis Carpal tunnel syndrome Cataract Coronary artery disease (CMS/HCC) COVID-19 Diabetes mellitus (CMS/HCC) Disease of thyroid gland (CMS/HCC) DM (diabetes mellitus) (CMS/HCC) Epidermal cyst of neck Hypercholesteremia (CMS/HCC) Hyperlipidemia (CMS/HCC) Hypertension (CMS/HCC) Hypothyroidism (CMS/HCC) Left knee pain correction (current) use of insulin ([facility]/HCC) Neck mass PAD (peripheral artery disease) ([facility]/HCC) Personal history of other malignant neoplasm of skin Right ankle pain Shingles Shoulder pain Skin cyst Stroke ([facility]/HCC) 09/2022 Tobacco dependence Type 2 diabetes mellitus without complications ([facility]/HCC) Venous insufficiency of leg Social History Tobacco Use Smoking status: Former Types: Cigarettes Start date: 03/02/1989 Smokeless tobacco: Never Substance Use Topics Alcohol use: Never Comment: caffeine: 2-3 cups per day Drug use: Never Past Surgical History: Procedure Laterality Date ADENOIDECTOMY APPENDECTOMY CARPAL TUNNEL RELEASE CT ANGIO HEAD 07/07/2023 CT ANGIO HEAD 07/07/2023 CT ANGIOGRAM ABDOMEN PELVIS 09/20/2020 CT ANGIOGRAM ABDOMEN PELVIS 09/20/2020 CT ANGIOGRAM HEART CORONARY 01/09/2021 CT ANGIOGRAM TAVR 01/09/2021 CT ANGIOGRAM HEART CORONARY 08/06/2020 CT ANGIOGRAM TAVR 08/06/2020 CT AORTA AND BILATERAL ILIOFEMORAL RUNOFF ANGIOGRAM W AND/OR WO IV CONTRAST 12/05/2020 CT AORTA AND BILATERAL ILIOFEMORAL RUNOFF ANGIOGRAM W AND/OR WO IV CONTRAST 12/05/2020 MR ANGIOGRAM HEAD WO IV CONTRAST 01/16/2023 MR ANGIOGRAM HEAD WO IV CONTRAST 01/16/2023 NECK MASS EXCISION posterior neck mass (05/15) TONSILLECTOMY TOTAL ABDOMINAL HYSTERECTOMY REVIEW OF SYMPTOMS: Review of Systems All other systems reviewed and are negative. OBJECTIVE: Vitals: 11/17/23 1501 BP: 134/84 Pulse: 88 Temp: 97.5 F SpO2: 96% Physical Exam ASSESSMENT AND PLAN: Assessment/Plan No follow-ups on file. Images from the original note were not included. Subjective Patient ID: Lucila Tineo is a 73 y.o. female who presents for Diabetes and UTI. Diabetes Pertinent negatives for hypoglycemia include no dizziness. Pertinent negatives for diabetes include no chest pain and no fatigue. UTI Review of Systems Constitutional: Negative for chills and fatigue. HENT: Negative for ear discharge, ear pain, rhinorrhea and sore throat. Eyes: Negative for pain and redness. Respiratory: Negative for cough and chest tightness. Cardiovascular: Negative for chest pain and palpitations. Gastrointestinal: Negative for abdominal distention and abdominal pain. Genitourinary: Negative for difficulty urinating and frequency. Musculoskeletal: Negative for arthralgias and gait problem. Skin: Negative. Neurological: Negative for dizziness and numbness. Endocrine: Negative. Allergic/Immunologic: Negative. Objective Physical Exam Vitals reviewed. Cardiovascular: Rate and Rhythm: Normal rate and regular rhythm. Pulses: Normal pulses. Heart sounds: Normal heart sounds. Pulmonary: Effort: Pulmonary effort is normal. Breath sounds: Normal breath sounds. Abdominal: General: Abdomen is flat. Bowel sounds are normal. Palpations: Abdomen is soft. Musculoskeletal: General: Normal range of motion. Skin: General: Skin is warm and dry. Neurological: General: No focal deficit present. Mental Status: She is oriented to person, place, and time. Assessment/Plan Diagnoses and all orders for this visit: Burning with urination - POCT urinalysis dipstick manually resulted - Urine culture (clean catch); Future Await results 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 (CMS/HCC)-stable continue on current medications - POCT glycosylated hemoglobin (Hb A1C) docked device - Ambulatory referral to Endocrinology; Future Edema of left lower leg Edema of left foot - XR foot 3+ views left; Future Acute cystitis with hematuria - doxycycline (Vibra-Tabs) 100 MG tablet; Take 1 tablet (100 mg) by mouth in the morning and 1 tablet (100 mg) before bedtime. Do all this for 10 days. Take with a full glass of water and do not lie down for at least 30 minutes after.. Take medications as prescribed Unsteady gait when walking At high risk for falls Lower extremity edema - Vascular US lower extremity venous duplex left; Future-await results Vaginal yeast infection - fluconazole (Diflucan) 150 MG tablet; Take 1 tablet (150 mg) by mouth 1 (one) time for 1 dose Acute left otitis media - doxycycline (Vibra-Tabs) 100 MG tablet; Take 1 tablet (100 mg) by mouth in the morning and 1 tablet (100 mg) before bedtime. Do all this for 10 days. Take with a full glass of water and do not lie down for at least 30 minutes after.. Cerebrovascular accident (CVA), unspecified mechanism (CMS/HCC)-stable. Paroxysmal atrial fibrillation (CMS/HCC) -stable documented in this encounter [facility] 11-17-2023 Miscellaneous Notes See other note documented in this encounter [facility] 11-17-2023 Progress note Formatting of t his note might be different from the original. See other note [facility] 07-16-2023 Telephone encounter Note Rec'd lab report from [facility] imported into [employer]. [facility] Work Phone: 07-16-2023 Miscellaneous Notes Rec'd lab report from [employer] imported into [employer]. documented in this encounter [facility] 07-14-2023 Telephone encounter Note Images from the original note were not included. Rec'd patient PT/INR results imported into [employer]. [facility] Work Phone: 07-14-2023 Miscellaneous Notes Images from the original note were not included. Rec'd patient PT/INR results imported into [employer]. documented in this encounter [facility] 07-07-2023 Note HNO ID: [id number] Author: JAH SHARPE MD Service: ? Author Type: Physician Type: Progress Notes Filed: 07/07/2023 17:09 Note Text: [facility] Established Outpatient Visit Lucila Tineo [facility]#: [id number] Date of Service: 07/07/2023 Primary Care Provider: Mily Andrade, CASH POSTING SPECIALIST [address] [facility] [address] FOLLOW UP VISIT Chief complaint: Follow up for incidental unruptured brain aneurysm History of present illness: Ms. Veloz is a 73-year-old female with vascular risk factors, who presents for follow-up evaluation of an incidentally discovered unruptured brain aneurysm. The patient was residing in [place], and was found down on October 29, [...] stroke work-up. The patient then returned to [place], and she is still at a nursing [...] infusion, injection o (more content not included)... [facility] 07-07-2023 History of Presen t illness Narrative [facility] Established Outpatient Visit Lucila Tineo [facility]#: [id number] Date of Service: 07/07/2023 Primary Care Provider: Mily Andrade, CHELITA [address] [facility] [address] FOLLOW UP VISIT Chief complaint: Follow up for incidental unruptured brain aneurysm History of present illness: Ms. Veloz is a 73-year-old female with vascular risk factors, who presents for follow-up evaluation of an incidentally discovered unruptured brain aneurysm. The patient was residing in [place], and was found down on October 29, [...] stroke work-up. The patient then returned to [place], and she is still at a nursing [...] REVIEW, right posterior MCA territory and left [employer] SE[employer] territory encephalomalacia representing prior stroke. Stable overall size of the previously described calcified and partially thrombosed left middle cerebral bifurcation aneurysm. However, the filling portion of the aneurysm has increased in size since prior CTA in September 2022. [facility] CTA head and neck September 2022: Available images demonstrate significant diffuse atherosclerotic changes, and presence of an approximately 1.5 cm left middle cerebral bifurcation region partially thrombosed aneurysm with calcified rim. There is also cut off of mid M2 prominent branch, likely the cause of the patient's right MCA stroke. [facility] MRI brain September 2022: Available images [...] July 07, 2023 documented in this encounter [facility] 07-07-2023 History of Presen t illness [...] PATIENT PRESENTS WITH AN IMPLANTABLE OR ATTACHED CONTRACT ASSOCIATE MANAGER: No RADIOLOGY DEPARTMENT: CT; Exam(s) Completed: Brain and CTA Brain PERIPHERAL IV DATA: Site assessment: Clean,Dry and Intact, Site disposition Discontinued SIGNED BY: RT Cande(Jett) July 07, 2023 9:37 AM documented in this encounter [facility] 07-07-2023 Note HNO ID: [id number] Author: JOSE A FLORES RN Service: Radiology [...] DATE: July 07, 2023 TIME: 9:24 AM [facility] 07-07-2023 Note HNO ID: [id number] Author: BILLY BOATENG RT(Jett) Service: Radiology Author Type: Technologist Type: [...] PATIENT PRESENTS WITH AN IMPLANTABLE OR ATTACHED CONTRACT ASSOCIATE MANAGER: No RADIOLOGY DEPARTMENT: CT; Exam(s) Completed: Brain and CTA Brain PERIPHERAL IV DATA: Site assessment: Clean,Dry and Intact, Site disposition Discontinued SIGNED BY: RT Cande(Jett) July 07, 2023 9:37 AM [facility] 04-29-2023 Miscellaneous Notes Apt ok per RA PT daughter (Alex) would rather not schedule a PFT at this time for her mother documented in this encounter [facility] 04-29-2023 Telephone encounter Note Apt ok per RA PT daughter (Alex) would rather not schedule a PFT at this time for her mother [facility] 03-25-2023 Note HNO ID: [id number] Author: GABBIE MARTINEZ RT(R) Service: Radiology Author Type: Technologist [...] PERIPHERAL IV DATA: Not applicable SIGNED BY: Gabbie Martinez RT(R) March 25, 2023 12:47 PM [facility] 03-25-2023 Note HNO ID: [id number] Author: BRO HAWK MD Service: ? Author Type: Physician Type: Progress Notes Filed: 03/25/2023 11:09 Note Text: [facility] , Vascular [facility] Thor[facility] [place] DEPARTMENT OF VASCULAR SURGERY OUTPATIENT VISIT DATE [...] occluded Thoracoabdominal aortic aneurysm (TAAA) ([facility]) PAST SURGICAL HISTORY Procedure Laterality Date [...] stable taaa. N (more content not included)... [facility] 03-25-2023 Note HNO ID: [id number] Author: SEPIDEH TOVAR RN Service: Nursing Author [...] DATE: March 25, 2023 TIME: 9:59 AM [facility] 03-25-2023 Note HNO ID: [id number] Author: FRANK COLEMAN RT(R) Service: Radiology Author [...] RT Monica(R) March 25, 2023 10:19 AM [facility] 03-06-2023 History of Presen t illness Narrative Lucila Tineo Date of visit: 03/06/2023 Date of : 1950 Age: 73 y.o. Patient Active Problem List Diagnosis Bilateral carotid artery stenosis Thoracic aortic aneurysm without rupture ([facility] PAD (peripheral artery disease) ([facility] Claudication ([facility] Lumbar radiculopathy, chronic Fall, initial encounter 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 ([facility]) Uncontrolled type 2 diabetes mellitus with hyperglycemia ([facility]) HLD (hyperlipidemia) History of stroke COPD (chronic obstructive pulmonary disease) ([facility]) ASCVD (arteriosclerotic cardiovascular disease) High anion gap metabolic acidosis Left middle cerebral artery aneurysm JEYSON (acute kidney injury) ([facility] Elevated troponin Essential hypertension Fecal impaction ([facility]) Stercoral colitis Paroxysmal atrial fibrillation ([facility]) Allergies Allergen Reactions Penicillins Hives and Other [...] that were known and followed conservatively by [facility]. She has been started on Eliquis. [...] aneurysm that is followed by vascular in [place]. She has not been back to [place] in some time. A repeat CTA of the abdomen and pelvis that was not a dedicated CTA study was done here in [place] and reported 4.9 cm aneurysm. I do not see the last assessment in [place] but there is a reading from 2020 42 mm. I am not sure whether getting the measurement of 4.9 cm on the study here. There is a lot of artifact and I see measurements that may be 44-45 mm but not clearly 49. Past Medical History: Diagnosis Date JEYSON (acute kidney injury) ([facility]) 01/16/2023 Cancer ([facility]) Chronic pain disorder Descending aortic aneurysm ([facility]) Diabetes mellitus type 2, controlled ([facility]) Emphysema of lung ([facility]) Former smoker Hypertension Low back pain NSTEMI, initial episode of care ([facility]) PAD (peripheral artery disease) ([facility]) 11/19/2020 Skin cancer Spinal stenosis of lumbar region with neurogenic claudication Stroke ([facility]) Uncontrolled type 2 diabetes mellitus with hyperglycemia ([facility]) 01/08/2021 No data recorded No data recorded No data recorded Past Surgical History: Procedure Laterality Date APPENDECTOMY CARPAL TUNNEL RELEASE CYST REMOVAL HYSTERECTOMY INJECTION BLOCK EPIDURAL CAUDAL STEROID N/A 05/09/2022 Performed by Bruce Mcgregor MD at [facility] SKIN CANCER EXCISION TONSILLECTOMY Family History Problem [...] 1. Essential hypertension 2. Paroxysmal atrial fibrillation ([facility]) 1. New right parietal lobe CVA with History of CVA 09/2022, large right hemispheric ischemic stroke with M2 vessel cut off, diagnosed in [place], [place] 2. Primary hypertension 3. Hyperlipidemia 4. Type 2 diabetes , DKA 5. Elevation. Non-STEMI 2020 with catheterization revealing thrombotic/chronic occlusion of the RCA with attempted stent at the time. 5. ASCVD with NSTEMI 2020; C 2020 with thrombotic/chronic occlusion of the RCA and attempted stent 7. Aneurysmal dilatation of descending thoracic aorta measuring up to 4.9 cm in width by vascular in [place], unclear if 4.9 cm as an accurate measurement and was not as enlarged on prior study in [place]. 9. Ascending aortic enlargement/aneurysm 10. Unruptured middle cerebral artery aneurysm, follows with Dr Sharpe [facility] 11. Tobacco abuse until 09/2022 12. Hypothyroid 13. Paroxysmal atrial fibrillation with RVR, asymptomatic, picked up during recent hospital stay 12/2022 Continue Carynis She was not placed on rate control, this is likely okay for now but I would like her to at least get vitals checked intermittently to screen for high heart rate readings and some point will need rate control added, particularly if has more prolonged episodes of atrial fibrillation Went over with her daughter who is a nurse that works here at [facility] that she should get evaluated again by [facility] in an expedited fashion. I am not certain that the descending thoracic aorta is truly 4.9 cm but if this is the case, this is a rapid progression compared to previous and likely merits intervention at this point. I think she will likely need a dedicated study. I think [place] will prefer that they get a CTA there for planning. I only see the aorta closer to 4.5 cm I would nonetheless want her to make sure she meet with vascular. TODAYS ORDERS No orders of the defined types were placed in this encounter. FOLLOW UP Return in about 4 months (around 07/05/2023). PCP: MARILYN HEARD Referring Physician: MARILYN Heard [address] [place] [address] documented in this encounter [facility] 03-05-2023 Miscellaneous Notes Left message for patient to remind them to bring their most current medication list with them to their appointment. documented in this encounter [facility] 03-05-2023 Telephone encounter Note Left message for patient to remind them to bring their most current medication list with them to their appointment. [facility] Miscellaneous Notes Voice mail left for daughter to discuss plan of care for follow up of cerebral aneurysm as discussed with Dr Sharpe at appointment. Imaging in 6 months versus cerebral angiogram. Requested daughter to either call this office or send a My Chart message with preference documented in this encounter [facility] 12-16-2022 Note HNO ID: [id number] Author: Jah Sharpe MD Service: ? Author Type: Physician Type: Progress Notes Filed: 12/16/2022 6:24 PM Note Text: [facility] Virtual Visit Lucila Tineo [facility]#: [id number] Date of Service: 12/16/2022 Primary Care Provider: Mily Andrade, CASH POSTING SPECIALIST [address] [facility] [address] The patient was referred by Osei Roe [...] brain aneurysm. The patient was residing in [place], and was found down on October 29, [...] stroke work-up. The patient then returned to [place], and she is still at a nursing [...] Discontinue saline lo (more content not included)... [facility] 12-16-2022 History of Presen t illness Narrative [facility] Virtual Visit Lucila Tineo [facility]#: [id number] Date of Service: 12/16/2022 Primary Care Provider: Mily Andrade, CASH POSTING SPECIALIST [address] [facility] [address] The patient was referred by Osei Roe [...] brain aneurysm. The patient was residing in [place], and was found down on October 29, [...] stroke work-up. The patient then returned to [place], and she is still at a nursing [...] Disease w/o Stroke Event: Unruptured Aneurysm Modified [place] Score: Score: 4 NIH Stroke Scale: LOC: [...] OSEI ROE [address] [facility] [address] Mily Andrade [address] [place] [address] documented in this encounter [facility] 12-08-2022 Miscellaneous Notes Images from the original note were not included. OSH imaging/records received from [facility]: December 08, 2022 -10.3.23 Dr. Roe Progress Notes scanned to chart. -Medical Hx & Imaging Reports available in Care Everywhere. Received confirmation email from Caio that imaging hs been uploaded--per dropping off disc to imaging library to upload as I wasn't able to + kept getting error per below. Images from the original note were not included. OSH imaging/records received from [facility] [employer]: December 04, 2022 -10.3.23 Dr. Roe Progress Notes scanned to chart. PENDING: Imaging -Medical Hx & Imaging Reports Walked discs over to imaging library + gave to Adry to upload MAGDALENE. Successfully sent CARRI & [employer] overnight label via [employer]~ Tracking#[id number] December 05, 2022 10:30 AM 07 [employer] Priority Overnight $14.14 From: Theresa mabry Last change on 12/04/2022 12:16:46 pm Sent on 12/04/2022 12:16:33 pm Completed ENDOVASCULAR INTAKE Patient name: Lucila Tineo Confirm Diagnosis/RFV (Reason for Visit): Aneurysm Is this a self-referral? no, who is the referring provider : Osei Roe [facility] [employer] [facility] in [place], [place]/His direct office number if any questions: [phone] Is this a direct referral? yes neurosurgeon Have you been recommended for surgery or procedure? Yes. coiling Are you seeking a second opinion? Yes. Do you have a MRI/MRA/CT/Ultrasound for this diagnosis? Yes. Type of imaging CT's, name/address of facility where completed [employer]. [Only has reports in folder, no images] [...] if any questions. documented in this encounter [facility] Evaluation note Diagnosis Unruptured cerebral aneurysm- Primary Cerebral aneurysm, nonruptured Ischemic stroke (HCC) Hypertension, unspecified type Hyperlipidemia, unspecified hyperlipidemia type Smoking Tobacco use disorder [facility] Diagnosis Essential hypertension- Primary Unspecified essential hypertension Paroxysmal atrial fibrillation (CMS-HCC) Atrial fibrillation [facility] Diagnosis Calcified granuloma of lung (CMS-HCC)- Primary [facility]* Diagnosis Unruptured cerebral aneurysm- Primary Cerebral aneurysm, nonruptured Hypertension, unspecified type Hyperlipidemia, unspecified hyperlipidemia type Atrial fibrillation, unspecified type (HCC) Ischemic stroke (HCC) documented [facility] this [facility] Diagnosis Nonruptured cerebral aneurysm Cerebral aneurysm, nonruptured documented [facility] Diagnosis Unruptured cerebral aneurysm- Primary Cerebral aneurysm, nonruptured Encounter for monitoring antiplatelet therapy Encounter for therapeutic drug monitoring documented [facility] this [facility] Diagnosis Burning with urination- Primary Dysuria 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 (CMS/HCC) Edema of left lower leg Laceration of posterior tibial artery, left leg, initial encounter Edema of left foot Acute cystitis with hematuria Unsteady gait when walking At high risk for falls Lower extremity edema Edema Vaginal yeast infection Candidiasis of vulva and vagina Acute left otitis media Cerebrovascular accident (CVA), unspecified mechanism (CMS/HCC) Paroxysmal atrial fibrillation (CMS/HCC) Atrial fibrillation Edema of left foot [facility] Diagnosis Paroxysmal atrial fibrillation (CMS/HCC)- Primary Atrial fibrillation [facility] N[facility]* The patient presents [...] medication regimen. She denies medication side effects. [facility] [address] DO Work Phone: InstructionsNot on filedocumented in this encounter [facility] on filedocumented in this encounter [facility]ructionsNot on filedocumented in this encounter [facility] SystemReason for referral (narrative)* Consultation (Urgent) - Authorized Specialty Diagnoses / Procedures Referred By Clemente jones Referred To Contact Family Medicine Diagnoses 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 (CMS/HCC) Procedures [place] OFFICE/OUTPATIENT [facility] MDM 60 MINUTES Mily Andrade NP [address] [place] [address] Chyna Portillo, [address] [facility] [address] [place] [address] Referral ID Status Reason Start Date Expiration Date Visits Requested Visits Authorized [id number] Authorized Specialty Services Required 11/17/2023 05/15/2024 1 1 [facility] Summary Purpose Family History No Family History [...] FoundDocuments on File Type Date Recorded Patient Carriage Dogger Expl anation DNR Physician Order 02/13/2023 4:38 PM Latest Code Status on File Code Status Date Activated Date Inactivated Comments DNR Comfort Care Arrest (DNR -CCA) [place] 01/16/2023 12:33 PM 01/21/2023 2:44 PM Code [...] hospitalized overnight and treated with infusion. [facility] due [facility] minimally elevated troponin. [...] HEAD WO/W IVCON CT ANGIOGRAPHY HEAD W/CONTRAST/NONCONTRAST Ras Gordon, FOREIGN SERVICE TEACHER.CASH POSTING SPECIALIST [address] [place] [address] Ct Imaging [place] [address] Referral ID Status Reason Start Date Expiration Date V isits Requested Visits Authorized [id number] Closed Auto-Generate d Referral 04/08/2023 05/07/2024 1 1 Additional Source Comments INFORMATION SOURCE (unrecogn ized section and content) DATE CREATED AUTHOR 08/20/2020 [facility] DATE CREATED AUTHOR AUTHOR'S ORGANIZ ATION 03/11/2021 [facility] DATE CREATED AUTHOR AUTHOR'S ORGANIZ ATION 12/11/2021 [facility] DATE CREATED AUTHOR AUTHOR'S ORGANIZ ATION 12/11/2021 [employer] DATE CREATED AUTHOR AUTHOR'S ORGANIZ ATION 04/26/2022 [facility] dical Specialist DATE CREATED AUTHOR AUTHOR'S ORGANIZ ATION 03/08/2023 [facility] DATE CREATED AUTHOR AUTHOR'S ORGANIZ ATION 06/27/2023 [facility] DATE CREATED AUTHOR AUTHOR'S ORGANIZ ATION 12/04/2023 [facility] DATE CREATED AUTHOR AUTHOR'S ORGANIZ ATION 12/10/2023 [facility] dical Specialists EPIC Source Comments (unrecognize d section and content) In the event this informatio n is protected by the Federal Confidentiality of Alcohol and Drug Abuse Patient Records regulations: The Federal rules restrict any use of the information to criminally investigate or prosecute any alcohol or drug abuse patient.[facility] the event this information is protected by the Federal Confidentiality of Alcohol and Drug Abuse Patient Records regulations: The Federal rules restrict any use of the information to criminally investigate or prosecute any alcohol or drug abuse patient.[facility] Hospital[facility] the event this information is protected by the Federal Confidentiality of Alcohol and Drug Abuse Patient Records regulations: The Federal rules restrict any use of the information to criminally investigate or prosecute any alcohol or drug abuse patient.[facility] the event this information is protected by the Federal Confidentiality of Alcohol and Drug Abuse Patient Records regulations: The Federal rules restrict any use of the information to criminally investigate or prosecute any alcohol or drug abuse patient.[facility] Hospital[facility] the event this information is protected by the Federal Confidentiality of Alcohol and Drug Abuse Patient Records regulations: The Federal rules restrict any use of the information to criminally investigate or prosecute any alcohol or drug abuse patient.[facility] Hospital[facility] the event this information is protected by the Federal Confidentiality of Alcohol and Drug Abuse Patient Records regulations: The Federal rules restrict any use of the information to criminally investigate or prosecute any alcohol or drug abuse patient.[facility] Hospital[facility] the event this information is protected by the Federal Confidentiality of Alcohol and Drug Abuse Patient Records regulations: The Federal rules restrict any use of the information to criminally investigate or prosecute any alcohol or drug abuse patient.[facility] Hospital[facility] the event this information is protected by the Federal Confidentiality of Alcohol and Drug Abuse Patient Records regulations: The Federal rules restrict any use of the information to criminally investigate or prosecute any alcohol or drug abuse patient.[facility] Hospital[facility] the event this information is protected by the Federal Confidentiality of Alcohol and Drug Abuse Patient Records regulations: The Federal rules restrict any use of the information to criminally investigate or prosecute any alcohol or drug abuse patient.[facility] Hospital[facility] the event this information is protected by the Federal Confidentiality of Alcohol and Drug Abuse Patient Records regulations: The Federal rules restrict any use of the information to criminally investigate or prosecute any alcohol or drug abuse patient.[facility] Hospital[facility] the event this information is protected by the Federal Confidentiality of Alcohol and Drug Abuse Patient Records regulations: The Federal rules restrict any use of the information to criminally investigate or prosecute any alcohol or drug abuse patient.[facility] HospitalIn the event this information is protected by the Federal Confidentiality of Alcohol and Drug Abuse Patient Records regulations: The Federal rules restrict any use of the information to criminally investigate or prosecute any alcohol or drug abuse patient.[facility] HospitalIn the event this information is protected by the Federal Confidentiality of Alcohol and Drug Abuse Patient Records regulations: The Federal rules restrict any use of the information to criminally investigate or prosecute any alcohol or drug abuse patient.[facility] Hospital[facility] the event this information is protected by the Federal Confidentiality of Alcohol and Drug Abuse Patient Records regulations: The Federal rules restrict any use of the information to criminally investigate or prosecute any alcohol or drug abuse patient.[facility] Reason for Visit (unrecogniz ed section and content) Reason Comments Future Appointment New Patient, [place], Any Reason Comments Unruptured Aneurysm 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 Reason Comments Medication Question Reason Comments Diabetes UTI Care Teams (unrecognized sec tion and content) Steno Pool Supervisor Relationship Specialty Start Date End Date Mily Andrade CNP [address] [place] [address] PCP - General Family Medicine 09/29/18 Osei Roe [address] [place] [address] Referring Neurology 12/04/22 Steno Pool Supervisor Relationship Specialty Start Date End Date Mily Andrade CNP [address] [facility] [place] [address] PCP - General Family Medicine 09/29/18 Osei Roe [address] [place] [address] Referring Neurology 12/04/22 Steno Pool Supervisor Relationship Specialty Start Date End Date Mily Andrade CNP [address] [facility] [place] [address] PCP - General Family Medicine 09/29/18 Osei Roe [address] [place] [address] Referring Neurology 12/04/22 Steno Pool Supervisor Relationship Specialty Start Date End Date Mily Andrade CNP [address] [facility] [place] [address] PCP - General Family Medicine 09/29/18 Osei Roe [address] [place] [address] Referring Neurology 12/04/22 Steno Pool Supervisor Relationship Specialty Start Date End Date Mily Andrade APRN-CASH POSTING SPECIALIST [address] [facility] [place] [address] PCP - General Internal Medicine 08/06/20 Steno Pool Supervisor Relationship Specialty Start Date End Date Mily Andrade APRN-CASH POSTING SPECIALIST [address] [facility] [place] [address] PCP - General Internal Medicine 08/06/20 Steno Pool Supervisor Relationship Specialty Start Date End Date Chyna Portillo DO [address] [place] [address] PCP - [employer] 03/02/20 Corrie Coley MD [address] [facility] [place] [address] PCP - General Family Medicine 03/26/23 Steno Pool Supervisor Relationship Specialty Start Date End Date Mily Andrade APRN-CASH POSTING SPECIALIST [address] [place] [address] PCP - General Internal Medicine 08/06/20 Steno Pool Supervisor Relationship Specialty Start Date End Date Mily Andrade FOREIGN SERVICE TEACHER-CASH POSTING SPECIALIST [address] [place] [address] PCP - General Internal Medicine 08/06/20 Steno Pool Supervisor Relationship Specialty Start Date End Date Mily Andrade CNP [address] [place] [address] PCP - General Family Medicine 09/29/18 Osei Roe MD [address] [place] [address] Referring Neurology 12/04/22 Steno Pool Supervisor Relationship Specialty Start Date End Date Mily Andrade CNP [address] [place] [facility] [place] [address] PCP - General Family Medicine 09/29/18 Osei Roe MD [address] [facility] [address] [place] [address] Referring Neurology 12/04/22 Steno Pool Supervisor Relationship Specialty Start Date End Date Mily Andrade CNP [address] [place] [address] PCP - General Family Medicine 09/29/18 Osei Roe MD [address] [facility] [address] [place] [address] Referring Neurology 12/04/22 Steno Pool Supervisor Relationship Specialty Start Date End Date Mily Andrade CNP [address] [place] [address] PCP - General Family Medicine 09/29/18 Osei Roe MD [address] [facility] [address] [place] [address] Referring Neurology 12/04/22 Steno Pool Supervisor Relationship Specialty Start Date End Date Mily Andrade CNP [address] [place] [address] PCP - General Family Medicine 09/29/18 Osei Roe MD [address] [facility] [address] [place] [address] Referring Neurology 12/04/22 Steno Pool Supervisor Relationship Specialty Start Date End Date Mily Andrade CNP [address] [place] [address] PCP - General Family Medicine 09/29/18 Osei Roe MD [address] [facility] [address] [place] [address] Referring Neurology 12/04/22 Steno Pool Supervisor Relationship Specialty Start Date End Date Chyna Portillo DO [address] [facility] [address] [facility] [address] [place] [address] PCP - [employer] 03/02/19 Corrie Coley MD [address] [place] [address] PCP - General Family Medicine 03/26/23 Steno Pool Supervisor Relationship Specialty Start Date End Date Chyna Portillo DO [address] [facility] [address] [facility] [address] [place] [address] PCP - [employer] 03/02/19 Corrie Coley MD [address] [place] [address] PCP - General Family Medicine 03/26/23 Chyna Richardson LSW Jira Developer Family Medicine 11/27/23 FOR RECORDS PERTAINING TO PATIENTS WHO ARE [...] BE BASED ON THE PRIMARY CLINICAL RECORDS. [employer]. provides no warranty or guarantee of the accuracy or completeness of information in this document.
[2023-12-11 11:19] LABS: Bilirubin Urine NEGATIVE (NEGATIVE); Blood Urine NEGATIVE (NEGATIVE); Clarity Urine CLEAR (CLEAR); Color Urine LT. YELLOW (YELLOW); Glucose Urine UA >=1000 mg/dL (NEGATIVE); Ketones Urine NEGATIVE (NEGATIVE); Leukocyte Esterase Urine NEGATIVE (NEGATIVE); Nitrite Urine NEGATIVE (NEGATIVE); Protein Urine NEGATIVE (NEG/TRACE); Urine Microscopic Indicated NO; Urobilinogen Urine 0.2 EU/dL (0.2-1.0)
== END 2023-12-11 11:07 | disposition home or self-care (01) ==
LOC: LAB 11:06
PROVIDERS: PCP Family Medicine
DX: E11.9 Type 2 diabetes mellitus without complications (principal)
CPT/HCPCS: 81003

== ENCOUNTER 2024-01-06 02:54 | Emergency (ER) | payer MEDICARE, MEDICAID, SELFPAY ==
[2024-01-06 02:55] VITALS: BP 150/82; PULSE 81; TEMP 36.7; O2SAT 99; BMI 23.5
--- NOTE | 2024-01-06 03:04 | ED_ITS ---
HPI HPI - General Adult General Chief complaint: Recheck/Abnormal Lab/Rx Stated complaint: weakness Time Seen by Provider: 01/06/24 03:00 Source: patient Mode of arrival: ambulance Limitations: no limitations History of Present Illness HPI narrative: Patient senting to the emergency department for evaluation of low blood sugar. At approximate 11:00 last night, she got her 10 units of short acting insulin because her blood sugar was 255. She states that she asked the nurse only give her 5 units and they gave her 10. She states that they told her it was better for her to be lower than to be high. She states that the before and dropped her to 43. Patient states that she was woken up by her continuous glucose monitor that her blood sugar was 60. She states it started beeping. They went and gave her orange juice, and ice cream sandwich, other food. Patient states that the time that she felt normal, never had any complaints. States that she was not weak as documented by her triage note. States that she feels fine now, never had any complaints now, never had any complaints then. She states because it was low they told her she had to come in from her assisted living and has no complaints at this time Related Data Home Medications ?Medication ?Instructions ?Recorded ?Confirmed amlodipine 2.5 mg tablet 2.5 mg PO DAILY 01/06/24 01/06/24 aspirin 81 mg tablet,delayed 81 mg PO DAILY 01/06/24 01/06/24 release Allergies Allergy/AdvReac Type Severity Reaction Status Date / Time Penicillins Allergy Severe Hives Verified 01/06/24 02:58 Opioid HPI Opioid Management Most Recent Opioid Data: Last Pain Scale 0 09/29/23 08:05 09/29/23 Review of Systems ROS Narrative Negative unless otherwise stated in the HPI PFSH PFSH Social History Little interest or pleasure in doing things: not at all Feeling down, depressed, or hopeless: not at all Exam Narrative Exam Narrative: General: NAD, AAOx3, no distress Eyes: PERRL, EOMI, lids/conjunctiva normal. HEENT: NCAT, mmm Respiratory: respiratory effort normal, speaks in full sentences, no tripod position, no accessory muscle use. Lungs clear to auscultation without rhonchi, wheezes, rales Cardiac: Regular rate and rhythm, no edema, regular s1/s2, no m/g/r Abdomen: Soft, ND/NT. No evidence of fluid wave. No pulsatile masses on exam, rebound tenderness, Jauregui sign or pain over Mcburney's point. Skin: Warm, pink and dry Neuro: Speech is clear and appropriate. Normal level of consciousness. Gait and coordination are normal. 5/5 strength in all extremities. Constitutional Vital Signs, click to edit/add: Last Vital Signs Temp 98.1 F 01/06/24 02:55 Pulse 81 01/06/24 02:55 Resp 18 01/06/24 02:55 BP 150/82 H 01/06/24 02:55 Pulse Ox 99 01/06/24 02:55 O2 Del Method Room Air 01/06/24 02:55 Course Vital Signs Vital signs: Vital Signs Temperature 98.1 F 01/06/24 02:55 Pulse Rate 81 01/06/24 02:55 Respiratory Rate 18 01/06/24 02:55 Blood Pressure 150/82 H 01/06/24 02:55 Pulse Oximetry 99 01/06/24 02:55 Oxygen Delivery Method Room Air 01/06/24 02:55 Temperature 98.1 F 01/06/24 02:55 Pulse Rate 81 01/06/24 02:55 Respiratory Rate 18 01/06/24 02:55 Blood Pressure 150/82 H 01/06/24 02:55 Pulse Oximetry 99 01/06/24 02:55 Oxygen Delivery Method Room Air 01/06/24 02:55 Medical Decision Making MDM Narrative Medical decision making narrative: Patient's blood sugar in the ED was >270. advanced guidance has been given. Vss, pex is benign at this time. Pt to fu with pcp 1-2 days for reeval, rter should sx worsen, persist or become worrysome in any way. All incidental laboratory studies, EKG, radiologic findings have been noted and discussed with patient. Patient was reevaluated with a benign exam at this time. Pt expressed understanding and agreement with plan of care at this time. Will fu as planned. Pt stable for discharge. Medical Records Medical records reviewed: Yes I reviewed the patient's medical records Lab Data Lab results reviewed: Yes I reviewed the patient's lab results Discharge Plan Discharge Chief Complaint: Recheck/Abnormal Lab/Rx Clinical Impression: Hypoglycemia Patient Disposition: Home, Self-Care Time of Disposition Decision: 03:30 Print Language: Macedonian Instructions: Hypoglycemia in a Person with Diabetes (DC), What to Do if Your Blood Sugar is Low (ED) Additional Instructions: Follow-up with your PCP in the next 1 to 2 days. Return to the emergency department should symptoms worsen or become worrisome in any way. Follow-up with your PCP for adjustment of your insulin sliding scale. Referrals: MAICOL PATINO [Primary Care Provider] - 1 week
--- OUTSIDE RECORDS SUMMARY | 2024-01-06 03:29 | XMS_ITS | CCD ---
Author Organization [facility] Care Team Providers Care Implementation Services Analyst Name Role Phone Unavailable Unavailable Mily Andrade Unavailable SALAS KIRKPATRICK Attending Unavailable SALAS KIRKPATRICK Admitting Unavailable Lupe, Ms. Mily Beckwith Primary Care Rosemary vailable Curt, Dr. Barrera Attending Unavailable Curt, Dr. Barrera Referring Unavailable Curt, Dr. Barrera Referring Unavailable CHELITA Sandhu Attending Unavailable Lupe, Mily Amena Primary Care Rosemary vailable Mily Andrade CNP Primary Care Provider Osei Roe Unavailable Lupe SE[employer] KNITTER-Mily MERLOS Primary Care Pro vider ANGE GEE Attending Unavailable MILY ANDRADE Referring Unavailab le ANDRADE, MILY Ashley Primary Care Unavailab le Chyna Luna DO Unavailable Corrie Coley MD Primary Care Provider MILY ANDRADE A Referring Unavailab le ANDRADE, MILY A Primary Care Unavailab le ANDRADE, MILY A Referring Unavailab le ANDRADE, MILY A Primary Care Unavailab JENIFFER Rawls Attending Unavailable MILY ANDRADE Referring Unavailab le ANDRADE, MILY A Primary Care Unavailab le Andrade Mily MERLOS Primary Care Provider Osei Roe MD Unavailable Chyna Luna DO Unavailable Dylan COLLECT ON DELIVERY CLERK, Chyna Unavailable [phone] SONU BRUNER Attending Unavailable ANDRADE, MILY A Referring Unavailab CHYNA Reardon Attending Unavailable ANDRADE, MILY A Referring Unavailab le ANDRADE, MILY A Referring Unavailab le ANDRADE, MILY A Referring Unavailab le ANDRADE, MILY A Referring Unavailab le ANDRADE, MILY A Attending Unavailab le ANDRADE, MILY A Attending Unavailab le ANDRADE, [facility] Primary Care Unavailable BRO HAWK Attending Unavailable ANDRADE, [facility] Primary Care Unavailable BRO HAWK Referring Unavailable ANDRADE, [facility] Primary Care Unavailable JEFFERY GORDON Referring Unavailable JAH SHARPE Attending Unavailable ANDRADE, [facility] Care Unavailable FAGERJEFFERY Jones Referring Unavailable EDWARD CHRISTINE Attending Unavailable ANDRADE, [facility] Unavailable Allergies Allergy Classification Reported Allergen(s) Allergy Type Date of Onset Reaction(s) Facility (13 sources) Penicillins; Translations: [Penicillins] Allergy to drug (finding) 9 [facility] (20 sources) Penicillins Drug Allergy 9 Hives, Other (See Comments) [facility] (14 sources) Penicillins Drug Allergy 9 Hives [facility] Work Phone: Medications Current Medications Medication Drug Class(es) Dates Sig (Normalized) Sig (Original) acetaminophen 325 mg oral tablet (13 sources) Start: 11-11-2023 acetaminophen (Tylenol) 325 MG tablet 11/11/2023 Active amLODIPine 5 mg oral tablet (20 sources) Dihydropyridine Calcium Channel Shantel Start: 12-03-2022 take 1 tablet by mouth in the morning amLODIPine (Norvasc) 5 MG tablet Take 5 mg by mouth in the morning. 12/03/2022 Active apixaban 5 mg oral tablet (17 sources) Factor Xa Inhibitor Start: 01-21-2023 End: 12-02-2023 take 1 tablet by mouth in the morning, then take 1 tablet by mouth at bedtime apixaban (ELIQUIS) 5 mg tablet Take 1 tablet (5 mg total) by mouth in the morning and 1 tablet (5 mg total) before bedtime. 60 tablet 2 01/21/2023 Active calcium carbonate 1250 mg oral tablet (13 sources) Start: 09-14-2023 Oyster Shell Calcium 500 MG tablet 2 (two) times a day 09/14/2023 Active calcium carbonate 1250 mg / cholecalciferol 200 unt oral tablet (4 sources) Vitamin D take 1 tablet by mouth once in the morning calcium carbonate-vitamin D3 (OSCAL 500 + D) 500 mg(1,250mg) -200 units per tablet Take 1 tablet by mouth in the morning and 1 tablet in the evening. Take with meals. 0 Active cholecalciferol 0.025 mg oral capsule (13 sources) Vitamin D Start: 09-14-2023 D3-1000 25 MCG (1000 UT) capsule 09/14/2023 Active clopidogrel 75 mg oral tablet (19 sources) P2Y12 Platelet Inhibitor take 1 tablet by mouth once daily clopidogrel (PLAVIX) 75 mg tablet Take 75 mg by mouth once daily. Active Plavix 75 MG Ora l Tablet Quantity: 0 Refills: 0 Ordered: 04-Dec-2020 DO Active Comment on above: Take 75 mg by mouth once daily. Continuous Glucose Cable Splicer Apprentice (FreeStyle Shaina 2 Rapidan) device (9 sources) Start: 12-08-2023 Continuous Glucose Cable Splicer Apprentice (FreeStyle Shaina 2 Rapidan) device Indications: Type 1 diabetes mellitus with other circulatory complications ([facility]/HCC) 1 each See administration instructions 1 each 12/08/2023 Active Start: 11-19-2023 Continuous Glu cose Cable Splicer Apprentice (FreeStyle Shaina 2 Rapidan) device Indications: 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 ([facility]/HCC) 1 each every 14 (fourteen) days 6 each 3 11/19/2023 Active Continuous Glucose Cable Splicer Apprentice (FreeStyle Shaina 3 Rapidan) device (6 sources) Start: 12-08-2023 Continuous Glucose Cable Splicer Apprentice (FreeStyle Shaina 3 Rapidan) device Indications: Type 1 diabetes mellitus with other circulatory complications ([facility]/HCC) 1 Device See administration instructions 1 each 12/08/2023 Active Continuous Glucose Sensor (FreeStyle Shaina 2 Sensor) misc (4 sources) Start: 12-08-2023 End: 12-07-2024 Continuous Glucose Sensor (FreeStyle Shaina 2 Sensor) misc Indications: 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) Wear subcutaneous daily every 14 days 6 each 3 12/08/2023 12/07/2024 Active Continuous Glucose Sensor (FreeStyle Shaina 3 Plus Sensor) [facility] (6 sources) Start: 12-08-2023 Continuous Glucose Sensor (FreeStyle Shaina 3 Plus Sensor) [facility] Indications: 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) 1 each See administration instructions 6 each 3 12/08/2023 Active empagliflozin 10 mg oral tablet (2 sources) Sodium-Glucose Cotransporter 2 Inhibitor Start: 11-14-2023 End: 12-04-2023 take 10 mg by mouth once daily Jardiance 10 MG Indications: 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) Take 10 mg by mouth Daily 11/14/2023 12/04/2023 Discontinued FreeStyle Shaina 2 Sensor misc 1 each (11 sources) Start: 11-19-2023 FreeStyle Shaina 2 Sensor [facility] 1 each insulin aspart (NovoLOG) 100 UNIT/ML injection (7 sources) End: 12-04-2023 insulin aspart (NovoLOG) 100 UNIT/ML injection INJECT 1U:5GM CARBS BREAKFAST AND LUNCH; 1U:15GM CARBS DINNER PLUS CORRECTION 1U:100 OVER 250. MAX 40 UNITS/DAY 12/04/2023 Discontinued insulin aspart ( NovoLOG) 100 UNIT/ML injection [...] bedtime. insulin glargine 100 unt/ml injectable solution (20 sources) Insulin Analog Start: 12-02-2022 End: 12-04-2023 insulin glargine (Lantus) 100 UNIT/ML injection Injection subcutaneous 15 in the am and 10 units at night 10 mL 3 12/04/2023 Active Start: 12-02-2022 inject 10 [IU] by arteaga bcutaneous injection in the morning insulin glargine (Lantus) 100 UNIT/ML injection Inject 10 Units under the skin in the morning. 12/02/2022 Active insulin glargine,hum.rec.anl og (INSULIN GLARGINE SUBCUTANEOUS) (10 sources) inject 15 [IU] by subcutaneous injection once daily insulin glargine,hum.rec.anlog (INSULIN GLARGINE SUBCUTANEOUS) Inject 15 Units subcutaneously once daily. SLIDING SCALE Active inject 15 [IU] by arteaga bcutaneous injection once daily insulin glargine,hum.rec.anlog (INSULIN GLARGINE SUBCUTANEOUS) Inject 15 Units subcutaneously once daily. SLIDING SCALE 0 Active insulin lispro 100 unt/ml injectable solution (20 sources) Insulin Analog Start: 12-04-2023 End: 12-10-2023 insulin lispro (HumaLOG) 100 unit/ml injection Indications: 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) Injection subcutaneous 6 units breakfast/lunch, 10 units dinner plus correction 1:75 > 150 mg/dl (max daily 50 units) 10 mL 3 12/10/2023 Active Start: 01-21-2023 insulin lispro (HumaLOG) 100 unit/mL [...] 15 mL 12 01/21/2023 Active Start: 12-02-2022 End: 12-04-2023 Insulin Lispro 100 UNIT/ML solution 2:50> 150mg d/l 12/02/2022 12/04/2023 Discontinued Start: 12-02-2022 Insulin Lispro 100 UNIT/ML solution [...] 12 01/21/2023 Active iv contrast (will be provided with radiology test) (20 sources) Start: 12-04-2023 End: 12-05-2023 inject 1 dose intravenously once iv contrast (will be provided with radiology test) Indications: Nonruptured cerebral aneurysm CTA Head WO/W IVCON No IV access, insert saline lock prior to the sedation, infusion, injection for imaging exam. Discontinue saline lock post exam. If Pt. has a central line or IVAD, may access for administration according to line specific nursing protocol. Once exam is complete flush line and de-access according to line specific nursing protocol in the CT contrast administration guidelines link. 1 Each 12/04/2023 12/05/2023 Active Start: 09-19-2020 iv contrast (w ill [...] link. loperamide hydrochloride 2 mg oral tablet (13 sources) Opioid Agonist Start: 11-14-2023 Anti-Diarrheal 2 MG tablet 11/14/2023 Active losartan potassium 50 mg oral tablet (20 sources) Angiotensin 2 Receptor Shantel Start: 09-09-2022 End: 12-04-2023 losartan (Cozaar) 50 MG tablet Indications: Primary hypertension (CMS/HCC) Take one tablets daily by mouth, 90 tablets with no refills 90 tablet 09/09/2022 12/04/2023 Discontinued take 2 tablets by mouth once gen [...] 0 Active ondansetron 4 mg oral tablet (20 sources) Serotonin-3 Receptor Antagonist take 1 tablet by mouth every eight hours as needed ondansetron (Zofran) 4 MG tablet Take 4 mg by mouth every 8 (eight) hours if needed Active polyethylene glycol 3350 44618 mg powder for oral solution (6 sources) Osmotic Laxative Start: End: polyethylene glycol, PEG, 3350 (MiraLax) 17 GM/SCOOP powder Indications: Slow transit constipation Take 17 g by mouth every other day if needed (constipation) 527 g 3 04/26/2023 12/04/2023 Discontinued potassium chloride 10 meq extended release oral capsule (13 sources) Start: potassium chloride ER (Micro-K) 10 MEQ ER capsule Take 40 mEq by mouth Daily 02/20/2023 Active Start: 02-20-2023 potassium chlo ride ER (Micro-K) 10 MEQ ER capsule 02/20/2023 Active POTASSIUM-99 ORAL (10 sources) take 40 mEq by mouth once daily POTASSIUM-99 ORAL Take 40 mEq by mouth once daily. Active take 40 mEq by mouth once daily POTASSIUM-99 ORAL Take 40 mEq by mouth once daily. 0 Active pregabalin 25 mg oral capsule (20 sources) Start: 01-31-2023 End: 11-23-2024 take 1 capsule by mouth in the morning pregabalin (Lyrica) 25 MG capsule Indications: Degeneration of lumbar intervertebral disc Take 1 capsule (25 mg) by mouth in the morning and 1 capsule (25 mg) before bedtime. 60 capsule 1 11/24/2023 11/23/2024 Active rivaroxaban 20 mg oral tablet (11 sources) Factor Xa Inhibitor Start: 12-02-2023 take 1 tablet by mouth at mealtime rivaroxaban (Xarelto) 20 MG tablet Indications: Paroxysmal atrial fibrillation (CMS/HCC) Take 1 tablet (20 mg) by mouth in the evening. Take with meals Take with food. 90 tablet 1 12/02/2023 Active rOPINIRole 0.5 mg oral tablet (20 sources) Nonergot Dopamine Agonist Start: 07-02-2023 take 1 tablet by mouth at bedtime rOPINIRole (Requip) 0.5 MG tablet Take 0.5 mg by mouth at bedtime 07/02/2023 Active sennosides, prison 8.6 mg oral tablet (16 sources) Start: 01-21-2023 take 1 tablet by mouth twice daily as needed for constipation senna (SENOKOT) 8.6 mg tablet Take 1 tablet (8.6 mg total) by mouth 2 (two) times a day as needed for constipation. 30 each 0 01/21/2023 Active End: 11-17-2023 Sennosides (SENNA) 8.6 mg ca p Take 1 capsule by mouth as needed. Active traMADol hydrochloride 50 mg oral tablet (15 sources) Opioid Agonist Start: 01-31-2023 End: 11-17-2023 take 1 tablet by mouth every six hours as needed for pain traMADoL (ULTRAM) 50 mg tablet Take 1 tablet (50 mg total) by mouth every 6 (six) hours as needed for pain. 0 01/31/2023 Active 24 hr venlafaxine 37.5 mg extended release oral capsule (20 sources) Serotonin and Norepinephrine Reuptake Inhibitor Start: 12-03-2022 End: 03-14-2024 take 1 capsule by mouth every twenty-four hours at mealtime venlafaxine XR (Effexor XR) 37.5 MG 24 hr capsule Indications: Major depressive disorder, remission status unspecified, unspecified whether recurrent (CMS/HCC) Take 1 capsule (37.5 mg) by mouth in the morning. Take with meals. 90 capsule 12/15/2023 03/14/2024 Active take 1 capsule by mouth once [...] 90 Refills: 3 Ordered: 04-Jul-2021 Yung Sandhu APRN-Salas MERLOS Start : 04-Jul-2021 Active take 1 tablet by rita th once daily aspirin, enteric coated (ASPIRIN, ENTERIC COATED) 81 mg EC tablet Take 81 mg by mouth once daily. Active Comment on above: Take 81 mg by mouth once daily. atorvastatin 40 mg oral tablet (20 sources) HMG-CoA Reductase Inhibitor Start: 022 take 1 tablet by mouth once daily [...] Active docusate sodium 50 mg / sennosides, prison 8.6 mg oral tablet (20 sources) Start: 023 End: 024 take 1 tablet by mouth in the [...] 90 tablet 07/23/2022 11/17/2023 Discontinued (Therapy completed) levothyroxine (S ynthroid) 150 MCG tablet Take by mouth Daily before meals Active Comment on above: Take 150 mcg [...] Date Documented Date Episodic/Chronic Acute cerebrovascular disease (20 sources) Ischemic stroke; Translations: [Cerebral infarction, unspecified] Onset: 12-26-2022 12-16-2022 Chronic Acute myocardial infarction (20 sources) Myocardial infarction; Translations: [Subendocardial infarction, initial episode of care] Onset: 01-16-2023 Resolved: 01-16-2023 01-16-2023 Chronic Aortic; peripheral; and visceral artery aneurysms (20 sources) Aneurysm of descending aorta; Translations: [Aortic aneurysm of unspecified site without mention of rupture] Onset: 11-19-2020 Resolved: 01-16-2023 11-19-2020 Chronic Cardiac dysrhythmias (20 sources) Paroxysmal atrial fibrillation; Translations: [Paroxysmal atrial fibrillation] Onset: 03-06-2023 03-06-2023 Chronic Cataract (14 sources) Bilateral age-related nuclear cataracts; Translations: [Age-related nuclear cataract, bilateral] Onset: 12-26-2022 12-26-2022 Chronic Chronic obstructive pulmonary disease and bronchiectasis (20 sources) Chronic obstructive lung disease; Translations: [Chronic airway obstruction, not elsewhere classified] Onset: 01-16-2023 01-16-2023 Chronic Coronary atherosclerosis and other heart disease (20 sources) Coronary arteriosclerosis; Translations: [Coronary atherosclerosis of unspecified type of vessel, barrow or graft] Onset: 09-05-2020 Chronic Crushing injury [...] on urination ; Translations: [Dysuria] 11-17-2023 Episodic Lymphadenitis (2 sources) Lymphadenopathy; Translations: [Enlarged lymph nodes, unspecified] 12-08-2023 Episodic Mood disorders (1 source) Major depressive disorder; Translations: [Major depressive disorder, single episode, unspecified] 12-15-2023 Chronic Mycoses (4 sources) Candidiasis of vagina; Translations: [Vaginal yeast infection] 11-17-2023 Episodic Occlusion or stenosis of precerebral arteries (17 sources) Bilateral stenosis of carotid arteries; Translations: [Occlusion and stenosis of bilateral carotid arteries] Onset: 11-19-2020 11-19-2020 Chronic Osteoarthritis (13 sources) Arthritis; Translations: [Unspecified osteoarthritis, unspecified site] Onset: 04-26-2023 04-26-2023 Chronic Other aftercare (1 source) Drug therapy finding; Translations: [Encounter for therapeutic drug level monitoring] 07-13-2023 Episodic Other and ill-defined cerebrovascular disease (5 sources) Cerebral arterial aneurysm; Translations: [Cerebral aneurysm, nonruptured] 12-16-2022 Chronic Other and ill-defined cerebrovascular disease (17 sources) Aneurysm of middle cerebral artery; Translations: [Cerebral aneurysm, nonruptured] Onset: 01-16-2023 01-16-2023 Chronic Other and ill-defined cerebrovascular disease (1 source) Cerebral aneurysm, nonruptured; Translations: [Nonruptured cerebral aneurysm] Onset: 07-07-2023 Chronic Other connective tissue disease (2 sources) Foot swelling; Translations: [Other specified soft tissue disorders] 12-08-2023 Episodic Other connective tissue disease (2 sources) Pain in both feet; Translations: [Pain in right foot] 12-08-2023 Episodic Other injuries and conditions due to external causes (2 sources) At high risk for fall; Translations: [History of falling] 11-17-2023 Episodic Other lower respiratory disease (1 source) Calcified granuloma of lung; Translations: [Pulmonary fibrosis, unspecified] 04-29-2023 Chronic Other nervous system disorders (4 sources) Spinal cord compression; Translations: [Unspecified disease of spinal cord] Chronic Other nervous system disorders (13 sources) Chronic pain; Translations: [Other chronic pain] [...] [Body Mass Index 29.0-29.9, adult] Episodic Other skin disorders (2 sources) Dystrophia unguium; Translations: [Nail dystrophy] 12-08-2023 Episodic Otitis media and related conditions (2 [...] Spondylosis; intervertebral disc disorders; other back problems (13 sources) Degeneration of lumbar intervertebral disc; Translations: [Degeneration of lumbar intervertebral disc] Onset: 04-26-2023 04-26-2023 Chronic Substance-related disorders (20 sources) Smokes tobacco daily; Translations: [Tobacco use disorder] Onset: 04-26-2023 12-16-2022 Chronic Comment on above: 1/2 PPD; Thyroid disorders (13 sources) Hypothyroidism; Translations: [Hypothyroidism, unspecified] Onset: 04-26-2023 04-26-2023 Chronic Unclassified (1 source) New Patient Onset: 06-25-2023 Unclassified (1 source) Pulmonary Nodule Onset: 06-25-2023 Unclassified (2 sources) Patient on antidepressant monitoring plan Onset: 12-15-2023 12-15-2023 Unclassified (1 source) Thoracic aortic aneurysm without [...] 01-16-2023 01-16-2023 Episodic Blindness and vision defects (14 sources) Left homonymous hemianopsia; Translations: [Homonymous bilateral [...] impaction] Onset: 01-18-2023 01-18-2023 Episodic Mood disorders (13 sources) Mood disorders Onset: 11-17-2023 11-17-2023 Noninfectious gastroenteritis (4 sources) Stercoral colitis; Translations: [Other specified noninfective gastroenteritis and colitis] Onset: 01-18-2023 01-18-2023 Episodic Nonspecific chest pain (1 source) Chest pain, unspecified; Translations: [Chest pain, unspecified type] Onset: 03-25-2023 Episodic Other circulatory disease (17 sources) History of cerebrovascular accident; Translations: [Personal history of transient ischemic attack (TIA), and cerebral infarction without residual deficits] Onset: 12-26-2022 01-16-2023 Episodic Other eye disorders (14 sources) Dry eyes; Translations: [Dry eye syndrome [...] Spondylosis; intervertebral disc disorders; other back problems (20 sources) Lumbar radiculopathy; Translations: [Radiculopathy, lumbar region] Onset: 11-27-2021 Resolved: 01-16-2023 11-27-2021 Episodic Results Test Name Value Interpretation Reference Range Facility [facility] 12-17-2023 [facility] Letter Text Normal [facility] UA (CLEAN/CATCH) MICROSC OPIC IF INDICATEon 12-11-2023 BILIRUBIN URINE Negative NEGATIVE [facility] BLOOD URINE Negative NEGATIVE [facility] Clarity (U) CLEAR CLEAR [facility] Color (U) LT. YELLOW YELLOW [facility] GLUCOSE URINE UA >=1000 Abnormal NEGATIVE mg/dL [facility] Interpretation and review of laboratory results Abnormal [facility] Ketones Ql (U) Negative NEGATIVE mg/dL [facility] Leukocyte esterase Test strip Ql (U) Negative NEGATIVE [facility] NITRITE URINE Negative NEGATIVE [facility] pH (U) 6.0 [pH] 5.0 - 9.0 [facility] PROTEIN URINE Negative NEG/TRACE mg/dL [facility] SPECIFIC GRAVITY URINE 1.010 1.005 - 1.025 [facility] URINE MICROSCOPIC INDICATED NO [facility] UROBILINOGEN URINE 0.2 EU/dL 0.2 - 1.0 EU/dL [facility]ISY[facility] CNPNon 12-02-2023 CNPN Telephone (N[facility]VS8) LUCILA TINEO ([id number]) 1950 F Date Time Provider Department 12/02/23 JAH SHARPE [id number] During your visit today, we recorded the following information about you: Jenny Haines 12/02/2023 9:50 AM Signed CV PHONE Name of caller : Dr. Foote PCP Relationship to patient : Caregiver If not self Will need patient permission to release results or disclose health information with called documented in . Patient identified by Name and Date of . ( Lucila Tineo, 1950). Yes Number to return call [phone] Reason for Call: Medication Question: Chyna from Dr. Foote's office would like to know if patient can change to xarelto, because her insurance will not cover the eliquis. They are asking if you originally started patient on eliquis, this is why the question is raised. Please call back Chyna at the above number. Thank you calling [facility]. You will receive a return call within [...] Fully Assessed Reason for Visit: Medication Question [3888] Prescriptions as of 12/02/2023 - rOPINIRole (REQUIP) [...] mL) injection (more content not included)... Normal [facility] Bacteria identified Cx Nom ( U)on 11-19-2023 Appearance (U) Adequate [facility] Internal identifier for Provider [id number] [facility] Specimen source Nom (Unsp spec) URINE [facility] STATUS FINAL [facility] Performing Organization Information Site ID: [email or web address] Name: [email or web address] Address: [address] [place] [address], [address] [place] [id number] Director: Blade Crane MD Pending sale to [facility] - Microbiology an d Antimicrobial susceptibilityon 11-19-2023 Bacteria identified Cx Nom (U) SEE NOTE [facility] Comment on above: Mixed genital rodriguez isolated. These superficial bacteria are not indicative of a urinary tract infection. No further organism identification is warranted on this specimen. If clinically indicated, recollect clean-catch, mid-stream urine and transfer immediately to Urine Culture Transport Tube. HbA1c (Bld) [Mass fraction]o n 11-17-2023 Interpretation and review of laboratory results Abnormal Pending sale to [facility] - Hematology and Cell countson 11-17-2023 HbA1c (Bld) [Mass fraction] 8.7 % [facility] US.doppler Lower extremity v ein - [...] Electronically Signed Dom Najera M.D. 2023-11-17 16:23:40 [facility] Radiology Study observation (narrative) [facility] US.doppler Lower extremity v ein - leftOrdered By: Dom Najera on 11-17-2023 [facility] [employer] Work Phone: Urinalysis macro (dipstick) panel (U)on 11-17-2023 Bilirubin, UA Negative Negative - 4(70) +++ mg/dL [facility] Blood, UA Positive Negative - 50 Moncho/mcL [facility] Clarity, UA Cloudy [facility] Color, UA Yellow [facility] Glucose, UA Positive Negative - 2000(110) ++++ mg/dL [facility] Interpretation and review of laboratory results Abnormal [facility] Ketones, UA Negative Negative - 160(16) ++++ mg/dL [facility] Leukocytes, UA Positive Negative - 500+++ Cinthia/mcL [facility] Nitrite, UA Negative Negative - Positive [facility] pH, UA 6.5 5 - 9 [facility] Protein, UA Negative Negative - 2000(20) ++++ mg/dL [facility] Spec Grav, UA 1.005 1 - 1.03 [facility] Urobilinogen, UA 0.2 0.2 - 12 mg/dL Pending sale to [facility] VASC US LOWER EXTREMITY VENO US DUPLEX LEFTon 11-17-2023 VAS US LOWER EXTREMITY VENOUS DUPLEX LEFT Exam: [...] Electronically Signed Ion Rivera M.D. 2023-11-17 15:21:35 [facility] Radiology Study observation (narrative) [facility] XR Foot - left 3 ViewsOrdere d By: Ion Rivera on 11-17-2023 [facility] Work Phone: Fernando 07-16-2023 [facility] Telephone ([facility]) SERALUCILA Stan ([id number]) 1950 F Date Time Provider Department 07/16/23 JAH SHARPE [id number] During your visit today, we recorded the following information about you: Jenny Haines 07/16/2023 12:26 PM Signed Rec'd lab report from [employer] imported into [employer]. Lane Vogt RN 07/17/2023 8:06 AM Signed Labs for upcoming cerebral angiogram Allergies As of Date: 07/16/2023 Noted Allergy Reaction PENICILLINS 10/11/2018 4 - Hives Date Reviewed: 07/07/2023 Reviewed by: Latoya Greene MA - Fully Assessed Reason for Visit: Received Outside Medical Records [3575] Cmt: Rec'd lab report from [employer] imported into [employer]. Prescriptions as of 07/17/2023 - rOPINIRole (REQUIP) [...] Encounter Status:Closed by JENNY HAINES [facility] 07/16/23 [facility] CNPN Telephone (NECVS8) LUCILA TINEO ([id number]) 1950 F Date Time Provider Department 07/14/23 JAH SHARPE NECVS8 During your visit today, we recorded the following information about you: Jenny Haines 07/14/2023 3:34 PM Signed Rec'd patient PT/INR results imported into [employer]. Allergies As of Date: 07/14/2023 Noted Allergy [...] Encounter Status:Closed by JENNY HAINES on 07/16/23 Nicky [facility] Demi 07-07-2023 CNOV Office Visit (NSEVMN ) LUCILA TINEO ([id number]) 1950 F Date Time Provider Department 07/07/23 10:40 AM [facility] During your visit today, we recorded the following information about you: Pulse Blood pressure Weight Height 85/minute 123/52 60.8 kg 1.626 m Jah Sharpe MD 07/07/2023 5:09 PM Signed [facility] Established Outpatient Visit Lucila Tineo CC#: [id number] Date of Service: 07/07/2023 Primary Care Provider: Mily Andrade, TRIAGE TECHNICIAN [address] [facility] [address] FOLLOW UP VISIT Chief complaint: Follow up for incidental unruptured brain aneurysm History of present illness: Ms. Veloz is a 73-year-old female with vascular risk factors, who presents for follow-up evaluation of an incidentally discovered unruptured brain aneurysm. The patient was residing in [place], and was found down on October 29, [...] stroke work-up. The patient then returned to [place], and she is still at a nursing [...] specific nu (more content not included)... Normal [facility] CREATININE, BLOOD (POC)on Creatinine [Mass/Vol] 0.70 mg/dL 0.7 - 1.4 mg/dL [facility] eGFR (POCT) mL/min/1.73 m2 [facility] Location:Radiology [facility], [facility] [place], [place], [address] [place] [address] POINT OF CARE [facility] CTA HEAD WO/W IVCONon 2023 CTA HEAD WO/W IVCON * * *Final Report* * * DATE OF EXAM: Jul 07 2023 9:44AM [facility] [place] - CTA HEAD WO/W IVCON / [...] superior parietal lobule. Encephalomalacia within the left ROTARY DRIER FEEDER territory including the occipital lobe. Hypoattenuation within [...] circulation: Distal vertebral arteries, basilar trunk and almond blancher operator are patent without aneurysm or dissection. Opacified dural venous sinuses and major deep and superficial draining veins are patent. Contract Technician (topogram) images: No additional findings. IMPRESSION: Brain: No acute intracranial infarction or hemorrhage. Encephalomalacia within the right MCA and left ROTARY DRIER FEEDER territories. CTA brain: Left MCA M2 segment aneurysm with interval increase in the lumen size as detailed. No large vessel occlusion or high-grade arterial stenosis intracranially. Arterial blood flow was measured to detect acute large vessel occlusion by computer aided detection software: Not Performed. Concordance between software and imaging review: Concordant. Medical/Surgery Registered Nurse: МАРИНА Transcribe Date/Time: Jul 07 2023 9:47A Dictated by : DURAN FRANCO MD This examination was interpreted and the report reviewed and electronically signed by: JOSE CRUZ CARBAJAL MD on Jul 07 2023 11:52AM EST [id number] Normal [facility] CTA Head vessels WO and W co ntrast Marisol 07-07-2023 IMPRESSION: Brain: No acute intracranial infarction or hemorrhage. Encephalomalacia within the right MCA and left ROTARY DRIER FEEDER territories. CTA brain: Left MCA M2 segment aneurysm with interval increase in the lumen size as detailed. No large vessel occlusion or high-grade arterial stenosis intracranially. Arterial blood flow was measured to detect acute large vessel occlusion by computer aided detection software: Not Performed. Concordance between software and imaging review: Concordant. Medical/Surgery Registered Nurse: МАРИНА Transcribe Date/Time: Jul 07 2023 9:47A Dictated by : DURAN FRANCO MD This examination was interpreted and the report reviewed and electronically signed by: JOSE CRUZ CARBAJAL MD on Jul 07 2023 11:52AM [facility] DIVISION OF RADIOLOGY * * *Final Report* * * DATE OF EXAM: Jul 07 2023 9:44AM [facility] [place] - CTA HEAD WO/W IVCON / [...] superior parietal lobule. Encephalomalacia within the left ROTARY DRIER FEEDER territory including the occipital lobe. Hypoattenuation within [...] circulation: Distal vertebral arteries, basilar trunk and almond blancher operator are patent without aneurysm or dissection. Opacified dural venous sinuses and major deep and superficial draining veins are patent. Contract Technician (topogram) images: No additional findings. DIVISION OF RADIOLOGY Provider, [facility] - 07/07/2023 * * *Final Report* * * DATE OF EXAM: Jul 07 2023 9:44AM [facility] [place] - CTA HEAD WO/W IVCON / [...] superior parietal lobule. Encephalomalacia within the left ROTARY DRIER FEEDER territory including the occipital lobe. Hypoattenuation within [...] circulation: Distal vertebral arteries, basilar trunk and almond blancher operator are patent without aneurysm or dissection. Opacified dural venous sinuses and major deep and superficial draining veins are patent. Contract Technician (topogram) images: No additional findings. IMPRESSION IMPRESSION: Brain: No acute intracranial infarction or hemorrhage. Encephalomalacia within the right MCA and left ROTARY DRIER FEEDER territories. CTA brain: Left MCA M2 segment aneurysm with interval increase in the lumen size as detailed. No large vessel occlusion or high-grade arterial stenosis intracranially. Arterial blood flow was measured to detect acute large vessel occlusion by computer aided detection software: Not Performed. Concordance between software and imaging review: Concordant. Medical/Surgery Registered Nurse: МАРИНА Transcribe Date/Time: Jul 07 2023 9:47A Dictated by : DURAN FRANCO MD This examination was interpreted and the report reviewed and electronically signed by: JOSE CRUZ CARBAJAL MD on Jul 07 2023 11:52AM EST [facility] Radiology Study observation (narrative) [facility] CTA Head vessels WO and W co ntrast IVOrdered By: Ccf Provider on 07-07-2023 [facility] No Panel Informationon 04-14 Interpretation and review of laboratory results Abnormal [facility] CLINISYNC [facility] UA (CLEAN/CATCH) SALES SUPPORT SPECIALIST/ERICK RO IF IND.on 04-14-2023 BILIRUBIN URINE Negative NEGATIVE [facility] BLOOD URINE Negative NEGATIVE [facility] Clarity (U) CLEAR CLEAR [facility] Color (U) LT. YELLOW YELLOW [facility] GLUCOSE URINE UA >=1000 Abnormal NEGATIVE mg/dL [facility] Ketones Ql (U) Negative NEGATIVE mg/dL [facility] Leukocyte esterase Test strip Ql (U) SMALL Abnormal NEGATIVE [facility] NITRITE URINE Negative NEGATIVE [facility] pH (U) 6.0 [pH] 5.0 - 9.0 [facility] PROTEIN URINE Negative NEG/TRACE mg/dL [facility] SPECIFIC GRAVITY URINE 1.010 1.005 - 1.025 [facility] URINE MICROSCOPIC INDICATED YES [facility] UROBILINOGEN URINE 0.2 EU/dL 0.2 - 1.0 EU/dL [facility] URINE MICROSCOPIC ONLYon 04-14-2023 BACTERIA URINE SMALL Abnormal NONE SEEN #/HPF [facility] CAST SEEN? NONE SEEN NONE SEEN #/LPF [facility] CRYSTALS SEEN? None Seen None Seen #/HPF [facility] MUCUS URINE TRACE Abnormal NONE SEEN [facility] SQUAMOUS EPITHELIAL CELL URINE FEW Abnormal NONE/RARE #/LPF [facility] RBC 0-2 [facility] WBC 10-20 Abnormal NONE SEEN #/HPF [facility] URINE CULTURE INDICATED YES [facility] YEAST URINE SEEN Abnormal NONE SEEN [facility] Comment on above: 4+ BUDDING CBC panel Auto (Bld)on 03-25 Erythrocyte distribution width (RBC) [Ratio] 14.9 % Normal 11.5-15.0 [facility] Comment on above: Order Comment: Speci men Type: BLOOD SPECIMENOrdering Facility: [facility] Address: [address] [place] [address] Performed By: #### 5 8410-2 ####[facility] LABCLIA [id number] [place] [address] [place] Hematocrit (Bld) [Volume fraction] 37.0 % Normal 36.0-46.0 [facility] Comment on above: Order Comment: Speci men Type: BLOOD SPECIMENOrdering Facility: [facility] Address: [address] [place] [address] Performed By: #### 5 8410-2 ####[facility] LABCLIA [id number] [place] [address] [place] Hemoglobin (Bld) [Mass/Vol] 12.1 g/dL Normal 11.5-15.5 [facility] Comment on above: Order Comment: Speci men Type: BLOOD SPECIMENOrdering Facility: [facility] Address: [address] [place] [address] Performed By: #### 5 8410-2 ####[facility] LABIA [id number] [place] [address] [place] MCH (RBC) [Entitic mass] 29.4 pg Normal 26.0-34.0 [facility] Comment on above: Order Comment: Speci men Type: BLOOD SPECIMENOrdering Facility: [facility] Address: [address] [place] [address] Performed By: #### 5 8410-2 ####[facility] [id number] [place] [address] [place] MCHC (RBC) [Mass/Vol] 32.7 g/dL Normal 30.5-36.0 [facility] Comment on above: Order Comment: Speci men Type: BLOOD SPECIMENOrdering Facility: [facility] Address: [address] [place] [address] Performed By: #### 5 8410-2 ####[facility] LABIA [id number] [place] [address] [place] MCV (RBC) [Entitic vol] 90.0 fL Normal 80.0-100.0 [facility] Comment on above: Order Comment: Speci men Type: BLOOD SPECIMENOrdering Facility: [facility] Address: [address] [place] [address] Performed By: #### 5 8410-2 ####[facility] LABIA [id number] [place] [address] [place] Nucleated RBC (Bld) [#/Vol] 10*3/uL Normal <0.01 [facility] Comment on above: Order Comment: Speci men Type: BLOOD SPECIMENOrdering Facility: [facility] Address: [address] [place] [address] Performed By: #### 5 8410-2 ####[facility] LABCLIA [id number] [place] [address] [place] Platelet mean volume (Bld) [Entitic vol] 12.2 fL Normal 9.0-12.7 [facility] Comment on above: Order Comment: Speci men Type: BLOOD SPECIMENOrdering Facility: [facility] Address: [address] [place] [address] Performed By: #### 5 8410-2 ####[facility] LABCLIA [id number] [place] [address] [place] Platelets (Bld) [#/Vol] 157 10*3/uL Normal 150-400 [facility] Comment on above: Order Comment: Speci men Type: BLOOD SPECIMENOrdering Facility: [facility] Address: [address] [place] [address] Performed By: #### 5 8410-2 ####[facility] LABCLIA [id number] [place] [address] [place] RBC (Bld) [#/Vol] 4.11 10*6/uL Normal 3.90-5.20 [facility] Comment on above: Order Comment: Speci men Type: BLOOD SPECIMENOrdering Facility: [facility] Address: [address] [place] [address] Performed By: #### 5 8410-2 ####[facility] LABCLIA [id number] [place] [address] [place] WBC (Bld) [#/Vol] 3.70 10*3/uL Normal 3.70-11.00 [facility] Comment on above: Order Comment: Speci men Type: BLOOD SPECIMENOrdering Facility: [facility] Address: [address] [place] [address] Performed By: #### 5 8410-2 ####[facility] LABCLIA [id number] [address] [address] [address] [place] CNOVon 03-25-2023 CNOV Office Visit (EDUAR ) LUCILA TINEO ([id number]) 1950 F Date Time Provider Department 03/25/23 9:15 AM BRO HAWK During your visit today, we recorded the following information about you: Pulse Blood pressure 104/minute 140/84 Bro Hawk MD 03/25/2023 11:09 AM [facility] [place] DEPARTMENT OF VASCULAR SURGERY OUTPATIENT VISIT DATE [...] Reactions Peni (more content not included)... Normal [facility] CT BRAIN WO IVCONon 03-25-19 CT BRAIN WO IVCON * * *Final Report* * * DATE OF EXAM: Mar 25 2023 12:09PM [facility] 0504 - CT BRAIN WO [...] administration for the CTA chest/abdomen/pelvis, degrading assessment. Contract Technician (topogram) images: No additional findings. Post-operative [...] in the right posterior MCA and left ROTARY DRIER FEEDER territories with associated encephalomalacic changes, and interval development of high attenuation along the cortical margins on the right and few areas of high attenuation in the left ROTARY DRIER FEEDER territory. Findings most likely reflect gyriform enhancement [...] temporal lobe and stable adjacent vasogenic edema. Medical/Surgery Registered Nurse: МАРИНА Transcribe Date/Time: Mar 25 2023 12:10P Dictated by : KRISTINE SANDHU MD This examination was interpreted and the report reviewed and electronically signed by: KASSANDRA SAWYER MD on Mar 25 2023 12:53PM EST [id number] Normal [facility] CTA ABD/PELV WO/W IVCONon CTA ABD/PELV WO/W IVCON * * *Final Report* * * DATE OF EXAM: Mar 25 2023 10:28AM [facility] 0467 - CTA ABD/PELV WO/W IVCON / [...] AORTIC DIMENSIONS: AORTIC ROOT: 3.3 cm measured [id number] mid ASCENDING THORACIC AORTA: 3.7 cm mid [...] progression since 2020. No significant changes otherwise. Medical/Surgery [facility]istered [facility] Transcribe Date/Time: Mar 25 2023 12:00P Dictated by : SOHAM ALEMAN MD This examination was interpreted and the report reviewed and electronically signed by: SOHAM ALEMAN MD on Mar 25 2023 1:16PM EST [id number] Normal [facility] CTA CHEST (NONGATED) WO/W IV CONon 03-25-2023 CTA CHEST (NONGATED) WO/W IVCON * * *Final Report* * * DATE OF EXAM: Mar 25 2023 10:28AM [facility] 0124 - CTA CHEST (NONGATED) WO/W IVCON [...] AORTIC DIMENSIONS: AORTIC ROOT: 3.3 cm measured [id number]-[id number] mid ASCENDING THORACIC AORTA: 3.7 cm mid [...] progression since 2020. No significant changes otherwise. Medical/Surgery Registered Nurse: МАРИНА Transcribe Date/Time: Mar 25 2023 12:00P Dictated by : SOHAM ALEMAN MD This examination was interpreted and the report reviewed and electronically signed by: SOHAM ALEMAN MD on Mar 25 2023 1:16PM EST [id number] Normal [facility] Comprehensive metabolic 2000 panelon 03-25-2023 Albumin [Mass/Vol] 3.5 g/dL Low 3.9-4.9 [facility] Comment on above: Order Comment: Speci men Type: BLOOD SPECIMENOrdering Facility: [facility] Address: [address] [place] [address] Performed By: #### 2 4323-8 ####[facility] LABIA [id number] [place] [address] [place] ALP [Catalytic activity/Vol] 93 U/L Normal 34-123 [facility] Comment on above: Order Comment: Speci men Type: BLOOD SPECIMENOrdering Facility: [facility] Address: [address] [place] [address] Result Comment: Resu lts may be falsely decreased due to interference from hemolysis. Suggest reorder as clinically indicated. Performed By: #### 2 4323-8 ####[facility] LABCLIA [id number] [place] [address] [place] ALT [Catalytic activity/Vol] 21 U/L Normal 7-38 [facility] Comment on above: Order Comment: Speci men Type: BLOOD SPECIMENOrdering Facility: [facility] Address: [address] [place] [address] Result Comment: Resu lts may be falsely increased due to interference from hemolysis. Suggest reorder as clinically indicated. Performed By: #### 2 4323-8 ####[facility] LABCLIA [id number] [place] [address] [place] Anion gap [Moles/Vol] 11 mmol/L Normal 9-18 [facility] Comment on above: Order Comment: Speci men Type: BLOOD SPECIMENOrdering Facility: [facility] Address: [address] [place] [address] Performed By: #### 2 4323-8 ####[facility] LABCLIA [id number] [place] [address] [place] AST [Catalytic activity/Vol] 49 U/L High 13-35 [facility] Comment on above: Order Comment: Speci men Type: BLOOD SPECIMENOrdering Facility: [facility] Address: [address] [place] [address] Result Comment: Resu lts may be falsely increased due to interference from hemolysis. Suggest reorder as clinically indicated. Performed By: #### 2 4323-8 ####[facility] LABCLIA [id number] [place] [address] [place] Bilirubin [Mass/Vol] 0.4 mg/dL Normal 0.2-1.3 [facility] Comment on above: Order Comment: Speci men Type: BLOOD SPECIMENOrdering Facility: [facility] Address: [address] [place] [address] Performed By: #### 2 4323-8 ####[facility] LABCLIA [id number] [place] [address] [place] Calcium [Mass/Vol] 9.1 mg/dL Normal 8.5-10.2 [facility] Comment on above: Order Comment: Speci men Type: BLOOD SPECIMENOrdering Facility: [facility] Address: [address] [place] [address] Performed By: #### 2 4323-8 ####[facility] LABCLIA [id number] [place] [address] [place] Chloride [Moles/Vol] 101 mmol/L Normal 97-105 [facility] Comment on above: Order Comment: Speci men Type: BLOOD SPECIMENOrdering Facility: [facility] Address: [address] [place] [address] Performed By: #### 2 4323-8 ####[facility] LABCLIA [id number] [place] [id number] [place] CO2 [Moles/Vol] 19 mmol/L Low 22-30 [facility] Comment on above: Order Comment: Speci men Type: BLOOD SPECIMENOrdering Facility: [facility] Address: [address] [place] [address] Performed By: #### 2 4323-8 ####[facility] LABCLIA [id number] [address] STATES OF [facility] Creatinine [Mass/Vol] 0.60 mg/dL Normal 0.58-0.96 [facility] Comment on above: Order Comment: Speci men Type: BLOOD SPECIMENOrdering Facility: [facility] Address: [address] [place] [address] Performed By: #### 2 4323-8 ####[facility] LABIA [id number] [address] [place] [facility] Creatinine and Glomerular filtration rate.predicted panel (S/P/Bld) 95 mL/min/1.73m??? Normal >=60 [facility] Comment on above: Order Comment: Speci men Type: BLOOD SPECIMENOrdering Facility: [facility] Address: [address] [place] [address] Result Comment: Janice mated Glomerular Filtration Rate [...] actual GFR. Performed By: #### 2 4323-8 ####[facility] LABCLIA [id number] [place] [address] [place] Glucose [Mass/Vol] 435 mg/dL High 74-99 [facility] Comment on above: Order Comment: Speci men Type: BLOOD SPECIMENOrdering Facility: [facility] Address: [address] [place] [address] Result Comment: The [place] Diabetes Association (ADA) provides guidance for cutoff [...] Standards of Medical Care in Diabetes 2016, [place] [employer]. Diabetes Care. 2016.39(Suppl 1). Performed By: #### 2 4323-8 ####[facility] LABIA [id number] [place] [address] [place] Potassium [Moles/Vol] Normal [facility] Comment on above: Order Comment: Speci men Type: BLOOD SPECIMENOrdering Facility: [facility] Address: [address] [place] [address] Result Comment: Unab le to assay due to interference from hemolysis. Suggest reorder as clinically indicated. Performed By: #### 2 4323-8 ####[facility] LABIA [id number] [place] [address] [place] Protein [Mass/Vol] 6.7 g/dL Normal 6.3-8.0 [facility] Comment on above: Order Comment: Speci men Type: BLOOD SPECIMENOrdering Facility: [facility] Address: [address] [place] [address] Result Comment: Resu lts may be falsely increased due to interference from hemolysis. Suggest reorder as clinically indicated. Performed By: #### 2 4323-8 ####[facility] LABCLIA [id number] [place] [address] [place] Sodium [Moles/Vol] 131 mmol/L Low 136-144 [facility] Comment on above: Order Comment: Speci men Type: BLOOD SPECIMENOrdering Facility: [facility] Address: [address] [place] [address] Performed By: #### 2 4323-8 ####[facility] LABCLIA [id number] [place] [address] [place] Urea nitrogen [Mass/Vol] 16 mg/dL Normal 7-21 [facility] Comment on above: Order Comment: Speci men Type: BLOOD SPECIMENOrdering Facility: [facility] Address: [address] [place] [address] Performed By: #### 2 4323-8 ####[facility] LABCLIA [id number] [place] [address] [place] ECG COMPLETEon 03-25-2023 ECG COMPLETE Ventricular Rate : 8 9 BPM Atrial Rate : 89 BPM P-R Interval : 146 ms QRS Duration : 72 ms Q-T Interval : 370 ms QTC Calculation(Bazett) : 450 ms Calculated P [place] : 21 degrees Calculated R [place] : -6 degrees Calculated T [place] : 3 degrees NORMAL SINUS RHYTHM . BORDERLINE ECG Confirmed by DO CHRISTINE BRUCE ([id number]), clinical editor YONY CHRIS ([id number]) on 03/27/2023 9:35:29 AM NAME : LUCILA TINEO PID : [id number] : 1950 Gender : Female Race : ORD : [id number] Procedure Date : Mar 25 2023 11:38:10 Edit Date : Mar 27 2023 09:35:30 Diagnosis: NORMAL SINUS RHYTHM . 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 Author Type: Registered Nurse Type: ED Notes Filed: 03/25/2023 11:23 Note Text: Bed: E18-11 Expected date: Expected time: Means of arrival: Comments: HUGO Normal [facility] ED PROV NOTEon 03-25-2023 ED PROV NOTE HNO ID: [id number] Author: EDWARD CHRISTINE DO Service: Emergency Medicine [...] arteries partially occluded Thoracoabdominal aortic aneurysm (TAAA) ([facility]) PAST SURGICAL HISTORY Procedure Laterality Date APPENDECTOMY [...] Clinical Impression ED Course as of 03/25/23 2650 Edward Christine)'s Documentation ThuMar 25, 2023 1205 EKG STAT Normal sinus rhythm, rate 89, normal intervals, no STEMI 1313 Glucose(!): 435 Elevated glucose, did not take morning dose of insulin. Given 10units as per her home sliding scale and IVF Clinical Impressions as of 03/25/23 1736 Chest pain, unspecified type Coronary artery disease involving barrow coronary artery of barrow heart without angina pectoris Uncontrolled type 2 [...] emergency depar (more content not included)... Normal [facility] HIGH SENSITIVITY TROPONIN T (INITIAL)on 03-25-2023 Troponin T.cardiac High sensitivity method [Mass/Vol] 18 ng/L High <12 [facility] Comment on above: Order Comment: Letty sanchez Type: BLOOD SPECIMENOrdering Facility: [facility] Address: [address] [place] [address] Result Comment: When assessing risk for acute [...] 30 day MACE. Performed By: #### L [id number] ####[facility] LABCLIA [id number] [place] [address] [place] HIGH SENSITIVITY TROPONIN T (SECOND)on 03-25-2023 Troponin T.cardiac High sensitivity method [Mass/Vol] 17 ng/L High <12 [facility] Comment on above: Order Comment: Letty sanchez Type: BLOOD SPECIMENOrdering Facility: [facility] Address: [address] [place] [address] Result Comment: When assessing risk for acute [...] 30 day MACE. Performed By: #### L [id number] ####[facility] LABCLIA [id number] [place] [address] [place] HIGH SENSITIVITY TROPONIN T (THIRD) 3 HRS AFTER INITIALon 03-25-2023 Troponin T.cardiac High sensitivity method [Mass/Vol] 18 ng/L High <12 [facility] Comment on above: Order Comment: Speci men Type: BLOOD SPECIMENOrdering Facility: [facility] Address: [address] [place] [address] Result Comment: When assessing risk for acute [...] 30 day MACE. Performed By: #### L [id number] ####[facility] LABCLIA [id number] [place] [address] [place] XR CHEST 2V [...] since 09/20/20 most concerning for neoplasm Emphysema Medical/Surgery Registered Nurse: МАРИНА Transcribe Date/Time: Mar 25 2023 12:49P Dictated by : KHLOE GAYLE MD This examination was interpreted and the report reviewed and electronically signed by: KHLOE GAYLE MD on Mar 25 2023 1:04PM EST [id number] Normal [facility] CNPNon 03-13-2023 CNPN Telephone (PODCCP) SERALUCILA ([id number]) 1950 F Date Time Provider Department 03/13/23 DARRYL SAUER During your visit today, we recorded the following information about you: Darryl Sauer, RN 03/13/2023 3:39 PM Signed Reason for call: Mila called and she would like to schedule an appointment for Lucila with Dr aHwk. Looking for a Thursday apt. Contact Name: Mila Kramer Home and cell number: [phone] Diagnosis: TAAA. Rapid new growth Kind RegardsDarryl [...] Encounter Status:Closed by DARRYL SAUER on 03/13/23 Normal [facility] Fernando 01-02-2023 CNPN Telephone (NSEVMN) SERALUCILA Stan ([id number]) 1950 F Date Time Provider Department 01/02/23 [facility] During your visit today, we recorded the following information about you: Lane Vogt RN 01/02/2023 1:34 PM Signed Voice mail left for daughter to discuss plan of care for follow up of cerebral aneurysm as discussed with Dr Sharpe at appointment. Imaging in 6 months versus cerebral angiogram. Requested daughter to either call this office or send a Path Chart message with preference Elisa Lees 01/07/2023 12:30 PM Signed Daughter, Mila Kramer returned call - please call [phone]. Lane Vogt RN 01/07/2023 12:43 PM Signed Attempted to return call, voice mail left for daughter with office number to return call to this office at her convenience. Jenny Haines 01/07/2023 2:14 PM Signed Please call daughter back at [phone]. Until 4pm. Lane Vogt RN 01/07/2023 2:43 [...] LPN - Fully Assessed Reason for Visit: Line Maintenance - Other [3602] Prescriptions as of 01/07/2023 [...] Encounter Status:Closed by LANE VOGT on 01/02/23 Normal [facility] SCREENING MAMMOGRAM W/SAULO, BILATERAL*on 04-24-2022 SCREENING MAMMOGRAM [...] VERY IMPORTANT TO YOUR HEALTH. THE CURRENT [employer] GUIDELINES RECOMMENDS ANNUAL MAMMOGRAPHY BEGINNING AT AGE 40 THIS FACILITY USES A REMINDER SYSTEM TO ENSURE ALL PATIENTS RECEIVE REMINDER NOTIFICATIONS AT THE APPROPRIATE TIME BASED ON THE RECOMMENDATIONS OF THIS EXAM. Report reported and signed by Silviano Roth on 04/25/2022 0759 Normal [facility] Social Science Research Assistant Office Visit (Cardiology)on 12-11-2021 Follow-up visit Diagnoses/Problems [...] we can help. You may also call [phone] for free resources and assistance.; Status:Complete - [...] Recorded: 11Dec2021 11:20AM Heart Rate76, L Radial Fdkqkktl559, LUE, Sitting Xensmmkcd64, LUE, Sitting Height5 ft 4 in Noidkk213 lb BMI Qrrsyilcya86.98 kg/m2 BSA Calculated1.79 Tobacco Usea) Yes Patient encouraged to stop using tobacco productsYes PHQ-2 #1. Over the last 2 weeks have you felt down, depressed or hopeless? (If yes, answer PHQ-9 below)No PHQ-2 #2. Over the last 2 weeks have you felt little interest or pleasure in doing things? (If yes, answer PHQ-9 below)No Fa (more content not included)... Normal [facility] Tobacco Screening.on 022 Adult depression screening assessment No [facility] 250 DO Work Phone: Fall risk assessment b) One or more fall s in the last year [facility] 250 DO Work Phone: Tobacco use status CPHS a) Yes [facility] 250 DO Work Phone: Tobacco Screening. Yes [facility] 250 DO Work Phone: XR Spine Lumbar Complete w/F tyrone AND [place] 11-18-2021 XR Spine Lumbar Complete w/Flex AND [...] by Silviano Roth on 11/18/2021 1519 Normal [facility] Social Science Research Assistant US Venous, Bilateral, [place] 10-02-2021 US Venous, Bilateral, Lower Ext FINDINGS: [...] by Silviano Roth on 10/03/2021 0652 Normal [facility] Social Science Research Assistant Office Visit (Cardiology)on 02-05-2021 Follow-up visit Diagnoses/Problems Assessed Hypertension (401.9) (I10) Remains suboptimal CAD (coronary artery disease) (414.00) (I25.10) July 2020 ACS admit 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 SUPERINTENDENT MAINTENANCE in 2 weeks Adhering to 2017 AHA/ACC [...] hospitalized overnight and treated with infusion. 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 [...] smoker (305.1) (more content not included)... Normal [facility] Tobacco Screening.on Fall risk assessment a) No falls within the last year -[facility] 250 DO Work Phone: Tobacco use status CP a) Yes [facility] 250 DO Work Phone: Tobacco Screening. Yes [facility] 250 DO Work Phone: Tobacco Screening.on 021 Fall risk assessment a) No falls within the last year [facility] 600 DO Work Phone: Tobacco use status CPHS a) Yes [facility] 600 DO Work Phone: Tobacco Screening. Yes [facility] 600 DO Work Phone: Comprehensive Metabolic Pane dom 08-08-2020 Albumin [Mass/Vol] 3.1 g/dL Low 3.2-5.5 [facility] Comment on above: Performed By: #### C MP #### [facility] [address] [place] [address] Albumin/Globulin [Mass ratio] 0.9 {ratio} Normal [facility] Comment on above: Performed By: #### C MP #### [facility] [address] [place] [address] [facility] ALP [Catalytic activity/Vol] 98 U/L High 32-92 [facility] Comment on above: Performed By: #### C MP #### [facility] [address] [place] [address] [place] ALT [Catalytic activity/Vol] 17 U/L Normal 10-60 [facility] Comment on above: Performed By: #### C MP #### [facility] [address] [place] [address] [facility] AST [Catalytic activity/Vol] 24 U/L Normal 10-42 [facility] Comment on above: Performed By: #### C MP #### [facility] [address] Bilirubin [Mass/Vol] 0.6 mg/dL Normal 0.3-1.2 [facility] Comment on above: Performed By: #### C MP #### [address] Calcium [Mass/Vol] 8.8 mg/dL Normal 8.2-10.2 [facility] Comment on above: Performed By: #### C MP #### [address] Chloride [Moles/Vol] 103 mmol/L Normal 95-114 [facility] Comment on above: Performed By: #### C MP #### [address] CO2 [Moles/Vol] 20.4 mmol/L Low 22.0-30.0 [facility] Comment on above: Performed By: #### C MP #### [address] Creatinine [Mass/Vol] 1.06 mg/dL High 0.44-1.03 [facility] Comment on above: Performed By: #### C MP #### [address] Creatinine Clr Calc Pharmacy [address] [facility] Comment on above: Result Comment: PERF ORMED BY: [place] [address] PATHOLOGIST SURVEILLANCE SYSTEM MONITOR DOMINGA SOLIMAN M.D. Performed By: #### C MP #### [address] Estimated GFR ( Grace > [address] [facility] [address] [facility] Comment on above: Result Comment: GFR estimated reference range: According to KDOQI guidelines, <60 ml/min/1.73m2 is sufficient to diagnose a patient with chronic kidney disease. Performed By: #### C MP #### [address] Estimated GFR (Non- Am [address] [facility] [address] [facility] Comment on above: Performed By: #### C MP #### [facility] [address] Globulin (S) [Mass/Vol] 3.3 g/dL Normal [facility] Comment on above: Performed By: #### C MP #### [facility] [address] Glucose [Mass/Vol] 282 mg/dL High 70-100 [facility] Comment on above: Result Comment: [facility] Glucose Reference Range is dependent on time and content of last meal. Glucose of more than 200 mg/dL in a nonstressed, ambulatory subject supports the diagnosis of Diabetes Mellitus. ADA recommended reference range Performed By: #### C MP #### [address] Potassium [Moles/Vol] 4.5 mmol/L Normal 3.5-5.1 [facility] Comment on above: Performed By: #### C MP #### [address] Protein [Mass/Vol] 6.4 g/dL Normal 6.1-7.9 [facility] Comment on above: Performed By: #### C MP #### [address] Sodium [Moles/Vol] 134 mmol/L Low 136-146 [facility] Comment on above: Performed By: #### C MP #### [facility] [address] [place] [address] [place] Urea nitrogen [Mass/Vol] 29 mg/dL High -23 [facility] Comment on above: Performed By: #### C MP #### [address] ECG 12 lead ECGon 08-08-2020 ECG 12 lead ECG [facility] [place] [address] [place] [address] Electrocardiograph Report Signed Patient: Lucila Tineo MR#: [id number] : 1950 Acct:[id number] Age/Sex: 70 / F ADM Date: 08/06/20 Loc: 4P Room: 0J0276-0 Type: ADM IN Attending Dr: Drew Patterson [...] MD 08/08/20 0734 Signed By: 08/08/[address] [facility] [address] [facility] Glucose Poct Glucometerson 0 08-08-2020 Commemt1 Glu2: Cleaned Meter [facility] Comment on above: Result Comment: PERF ORMED BY: [place] [address] PATHOLOGIST SURVEILLANCE SYSTEM MONITOR DOMINGA SOLIMAN M.D. Performed By: #### P T, CBC, PTT #### [facility] [address] [place] [address] Glucose [Mass/Vol] 354 mg/dL [facility] Comment on above: Result Comment: [facility] Glucose Reference Range is dependent on time and content of last meal. Glucose of more than 200 mg/dL in a nonstressed, ambulatory subject supports the diagnosis of Diabetes Mellitus. Performed By: #### P T, CBC, PTT #### [facility] [address] [place] [address] Commemt1 Glu2: Cleaned Meter [facility] Comment on above: Result Comment: PERF ORMED BY: [place] [address] PATHOLOGIST SURVEILLANCE SYSTEM MONITOR DOMINGA SOLIMAN M.D. Performed By: #### P T, CBC, PTT #### [facility] [address] [place] [address] Glucose [Mass/Vol] 380 mg/dL [facility] Comment on above: Result Comment: [place] [facility] Glucose Reference Range is dependent on time and content of last meal. Glucose of more than 200 mg/dL in a nonstressed, ambulatory subject supports the diagnosis of Diabetes Mellitus. Performed By: #### P T, CBC, PTT #### [facility] [address] [place] [address] Glucose [Mass/Vol] 80 mg/dL Normal [facility] Comment on above: Result Comment: [place] [facility] Glucose Reference Range is dependent on time and content of last meal. Glucose of more than 200 mg/dL in a nonstressed, ambulatory subject supports the diagnosis of Diabetes Mellitus. PERFORMED BY: [place] [address] PATHOLOGIST SURVEILLANCE SYSTEM MONITOR DOMINGA SOLIMAN M.D. Performed By: #### P T, CBC, PTT #### [address] [facility] Comment on above: Result Comment: Glu2 : FOLLOW HYPOGLYCEMIC Performed By: #### P T, CBC, PTT #### [facility] [address] [place] [address] Commemt[address] Cleaned Meter [facility] Comment on above: Performed By: #### P T, CBC, PTT #### [facility] [address] [place] [address]/RN [facility] Comment on above: Result Comment: PERF ORMED BY: [place] [address] PATHOLOGIST SURVEILLANCE SYSTEM MONITOR DOMINGA SOLIMAN M.D. Performed By: #### P T, CBC, PTT #### [facility] [address] [place] [address] Glucose [Mass/Vol] 42 mg/dL Off scale low [facility] Comment on above: Result Comment: [facility] Glucose Reference Range is dependent on time and content of last meal. Glucose of more than 200 mg/dL in a nonstressed, ambulatory subject supports the diagnosis of Diabetes Mellitus. Performed By: #### P T, CBC, PTT #### [facility] [address] [place] [address] Troponin I(TnI)on 08-08-2020 Troponin I.cardiac [Mass/Vol] 2.45 ng/mL Off scale high 0-0.02 [facility] Comment on above: Result Comment: [facility] [place] Cut off value > or equal to 0.03 ng/mL in conjunction with clinical conditions of myocardial infarction. (www.escardio.org/guidelines) PERFORMED BY: [place] [address] PATHOLOGIST SURVEILLANCE SYSTEM MONITOR DOMINGA SOLIMAN M.D. Performed By: #### T ROP #### [facility] [address] [place] [address] A1C with Estimated Average G luon 08-07-2020 Glucose [Mass/Vol] 183 mg/dL Normal [facility] Comment on above: Result Comment: PERF ORMED BY: [place] [address] PATHOLOGIST SURVEILLANCE SYSTEM MONITOR DOMINGA SOLIMAN M.D. Performed By: #### G LULS #### Point of Care testing , HbA1c (Bld) [Mass fraction] 8.0 % High 4.3-5.6 [facility] Comment on above: Result Comment: Incr eased risk for diabetes: 5.7 - 6.4 diabetes: >6.4 glycemic control for adults with diabetes: <7.0 Performed By: #### G LULS #### Point of Care testing , Complete Blood Count Auto Di ffon 08-07-2020 Basophils (Bld) [#/Vol] 0.1 10*3/uL Normal 0.0-0.2 [facility] Comment on above: Result Comment: PERF ORMED BY: [place] [address] PATHOLOGIST SURVEILLANCE SYSTEM MONITOR DOMINGA SOLIMAN M.D. Performed By: #### G ARVINDLS #### Point of Care testing , Basophils/100 WBC (Bld) 1.4 % Normal . [facility] Comment on above: Performed By: #### G ARVINDLS #### Point of Care testing , Eosinophils (Bld) [#/Vol] 0.1 10*3/uL Normal 0.0-0.45 [facility] Comment on above: Performed By: #### G ARVINDLS #### Point of Care testing , Eosinophils/100 WBC (Bld) 2.6 % Normal . [facility] Comment on above: Performed By: #### [place] SAMUELSLS #### Point of Care testing , Erythrocyte distribution width (RBC) [Ratio] 15.6 % High 11.9-15.3 [facility] Comment on above: Performed By: #### G ARVINDLS #### Point of Care testing , Hematocrit (Bld) [Volume fraction] 39.8 % Normal 34.0-46.4 [facility] Comment on above: Performed By: #### G ARVINDLS #### Point of Care testing , Hemoglobin (Bld) [Mass/Vol] 13.8 g/dL Normal 11.8-15.4 [facility] Comment on above: Performed By: #### G ARVINDLS #### Point of Care testing , Lymphocytes (Bld) [#/Vol] 1.5 10*3/uL Normal 1.00-4.8 [facility] Comment on above: Performed By: #### G ARVINDLS #### Point of Care testing , Lymphocytes/100 WBC (Bld) 26.4 % Normal . [facility] Comment on above: Performed By: #### G ARVINDLS #### Point of Care testing , MCH (RBC) [Entitic mass] 30.9 pg Normal 24.7-34.3 [facility] Comment on above: Performed By: #### G ARVINDLS #### Point of Care testing , MCV (RBC) [Entitic vol] 89.0 fL Normal 80-100 [facility] Comment on above: Performed By: #### G LULS #### Point of Care testing , Mean Corpuscular HGB Conc 34.8 g/dL Normal 32.0-35.0 [facility] Comment on above: Performed By: #### [place] SAMUELSLS #### Point of Care testing , Monocytes (Bld) [#/Vol] 0.4 10*3/uL Normal 0.0-0.8 [facility] Comment on above: Performed By: #### [place] SAMUELSLS #### Point of Care testing , Monocytes/100 WBC (Bld) 7.0 % Normal . [facility] Comment on above: Performed By: #### G ARVINDLS #### Point of Care testing , Neutrophils (Bld) [#/Vol] 3.6 10*3/uL Normal 1.8-7.7 [facility] Comment on above: Performed By: #### [place] MUNROE #### Point of Care testing , Neutrophils/100 WBC (Bld) 62.6 % Normal . [facility] Comment on above: Performed By: #### [place] MUNROE #### Point of Care testing , Nucleated RBC/100 WBC (Bld) [Ratio] 0.4 % Normal 0-0.5 [facility] Comment on above: Performed By: #### [place] MUNROE #### Point of Care testing , Platelet mean volume (Bld) [Entitic vol] 9.1 fL Normal 6.3-10.7 [facility] Comment on above: Performed By: #### [place] MUNROE #### Point of Care testing , Platelets (Bld) [#/Vol] 201 10*3/uL Normal 150-450 [facility] Comment on above: Performed By: #### [place] MUNROE #### Point of Care testing , RBC (Bld) [#/Vol] 4.47 10*6/uL Normal 3.60-5.00 [facility] Comment on above: Performed By: #### G SHANEKA #### Point of Care testing , WBC (Bld) [#/Vol] 5.7 10*3/uL Normal 4.5-11.0 [facility] Comment on above: Performed By: #### [place] SAMUELSLS #### Point of Care testing , Basophils (Bld) [#/Vol] 0.1 10*3/uL Normal 0.0-0.2 [facility] Comment on above: Result Comment: PERF ORMED BY: [place] [address] PATHOLOGIST SURVEILLANCE SYSTEM MONITOR DOMINGA SOLIMAN M.D. Performed By: #### P T, CBC, PTT #### [address] Basophils/100 WBC (Bld) 0.7 % Normal . [facility] Comment on above: Performed By: #### P T, CBC, PTT #### [address] Eosinophils (Bld) [#/Vol] 0.1 10*3/uL Normal 0.0-0.45 [facility] Comment on above: Performed By: #### P T, CBC, PTT #### [address] Eosinophils/100 WBC (Bld) 1.5 % Normal . [facility] Comment on above: Performed By: #### P T, CBC, PTT #### [address] Erythrocyte distribution width (RBC) [Ratio] 15.4 % High 11.9-15.3 [facility] Comment on above: Performed By: #### P T, CBC, PTT #### [address] Hematocrit (Bld) [Volume fraction] 41.4 % Normal 34.0-46.4 [facility] Comment on above: Performed By: #### P T, CBC, PTT #### [address] Hemoglobin (Bld) [Mass/Vol] 14.0 g/dL Normal 11.8-15.4 [facility] Comment on above: Performed By: #### P T, CBC, PTT #### [place] [address] [place] Lymphocytes (Bld) [#/Vol] 2.0 10*3/uL Normal 1.00-4.8 [facility] Comment on above: Performed By: #### P T, CBC, PTT #### [facility] [address] Lymphocytes/100 WBC (Bld) 30.1 % Normal . [facility] Comment on above: Performed By: #### P T, CBC, PTT #### [facility] [address] MCH (RBC) [Entitic mass] 30.4 pg Normal 24.7-34.3 [facility] Comment on above: Performed By: #### P T, CBC, PTT #### [facility] [address] MCV (RBC) [Entitic vol] 89.6 fL Normal 80-100 [facility] Comment on above: Performed By: #### P T, CBC, PTT #### [facility] [address] Mean Corpuscular HGB Conc 33.9 g/dL Normal 32.0-35.0 [facility] Comment on above: Performed By: #### P T, CBC, PTT #### [facility] [address] Monocytes (Bld) [#/Vol] 0.4 10*3/uL Normal 0.0-0.8 [facility] Comment on above: Performed By: #### P T, CBC, PTT #### [facility] [address] [place] [address] [place] Monocytes/100 WBC (Bld) 6.4 % Normal . [facility] Comment on above: Performed By: #### P T, CBC, PTT #### [facility] [address] Neutrophils (Bld) [#/Vol] 4.2 10*3/uL Normal 1.8-7.7 [facility] Comment on above: Performed By: #### P T, CBC, PTT #### [facility] [address] Neutrophils/100 WBC (Bld) 61.3 % Normal . [facility] Comment on above: Performed By: #### P T, CBC, PTT #### [facility] [address] Nucleated RBC/100 WBC (Bld) [Ratio] 0.1 % Normal 0-0.5 [facility] Comment on above: Performed By: #### P T, CBC, PTT #### [facility] [address] Platelet mean volume (Bld) [Entitic vol] 8.9 fL Normal 6.3-10.7 [facility] Comment on above: Performed By: #### P T, CBC, PTT #### [address] Platelets (Bld) [#/Vol] 197 10*3/uL Normal 150-450 [facility] Comment on above: Performed By: #### P T, CBC, PTT #### [address] RBC (Bld) [#/Vol] 4.62 10*6/uL Normal 3.60-5.00 [facility] Comment on above: Performed By: #### P T, CBC, PTT #### [address] WBC (Bld) [#/Vol] 6.8 10*3/uL Normal 4.5-11.0 [facility] Comment on above: Performed By: #### P T, CBC, PTT #### [address] Comprehensive Metabolic Pane dom 08-07-2020 Albumin [Mass/Vol] 3.4 g/dL Normal 3.2-5.5 [facility] Comment on above: Performed By: #### G LULS #### Point of Care testing , Albumin/Globulin [Mass ratio] 1.0 {ratio} Normal [facility] Comment on above: Performed By: #### G LULS #### Point of Care testing , ALP [Catalytic activity/Vol] 107 U/L High 32-92 [facility] Comment on above: Performed By: #### G ARVINDLS #### Point of Care testing , ALT [Catalytic activity/Vol] 17 U/L Normal 10-60 [facility] Comment on above: Performed By: #### G ARVINDLS #### Point of Care testing , AST [Catalytic activity/Vol] 25 U/L Normal 10-42 [facility] Comment on above: Performed By: #### G ARVINDLS #### Point of Care testing , Bilirubin [Mass/Vol] 0.9 mg/dL Normal 0.3-1.2 [facility] [facility] [place] Comment on above: Performed By: #### G ARVINDLS #### Point of Care testing , Calcium [Mass/Vol] 9.1 mg/dL Normal 8.2-10.2 [facility] Comment on above: Performed By: #### G ARVINDLS #### Point of Care testing , Chloride [Moles/Vol] 105 mmol/L Normal 95-114 [facility] [place] Comment on above: Performed By: #### G SHANEKA #### Point of Care testing , CO2 [Moles/Vol] 20.9 mmol/L Low 22.0-30.0 [facility] Comment on above: Performed By: #### G ARVINDLS #### Point of Care testing , Creatinine [Mass/Vol] 0.96 mg/dL Normal 0.44-1.03 [facility] Comment on above: Performed By: #### G ARVINDLS #### Point of Care testing , Creatinine Clr Calc Pharmacy [address] [facility] Comment on above: Performed By: #### G ARVINDLS #### Point of Care testing , Estimated GFR ( Grace > [address] [facility] Comment on above: Result Comment: GFR estimated reference range: According to KDOQI guidelines, <60 ml/min/1.73m2 is sufficient to diagnose a patient with chronic kidney disease. Performed By: #### G ARVINDLS #### Point of Care testing , Estimated GFR (Non- Am [address] [facility] Comment on above: Performed By: #### G SHANEKA #### Point of Care testing , Globulin (S) [Mass/Vol] 3.5 g/dL [facility] Comment on above: Performed By: #### G ARVINDLS #### Point of Care testing , Glucose [Mass/Vol] 391 mg/dL High 70-100 [facility] Comment on above: Result Comment: [facility] Glucose Reference Range is dependent on time and content of last meal. Glucose of more than 200 mg/dL in a nonstressed, ambulatory subject supports the diagnosis of Diabetes Mellitus. ADA recommended reference range Performed By: #### G ARVINDLS #### Point of Care testing , Potassium [Moles/Vol] 4.4 mmol/L Normal 3.5-5.1 [facility] Comment on above: Performed By: #### G ARVINDLS #### Point of Care testing , Protein [Mass/Vol] 6.9 g/dL Normal 6.1-7.9 [facility] Comment on above: Performed By: #### G SHANEKA #### Point of Care testing , Sodium [Moles/Vol] 136 mmol/L Normal 136-146 [facility] Comment on above: Performed By: #### G SHANEKA #### Point of Care testing , Urea nitrogen [Mass/Vol] 19 mg/dL Normal 9-23 [facility] Comment on above: Performed By: #### G SHANEKA #### Point of Care testing , Albumin [Mass/Vol] 3.4 g/dL Normal 3.2-5.5 [facility] Comment on above: Performed By: #### G SHANEKA #### Point of Care testing , Albumin/Globulin [Mass ratio] 0.9 {ratio} [facility] Comment on above: Performed By: #### G ARVINDLS #### Point of Care testing , ALP [Catalytic activity/Vol] 100 U/L High 32-92 [facility] Comment on above: Performed By: #### G SHANEKA #### Point of Care testing , ALT [Catalytic activity/Vol] 17 U/L Normal 10-60 [facility] Comment on above: Performed By: #### G LULS #### Point of Care testing , AST [Catalytic activity/Vol] 34 U/L Normal 10-42 [facility] Comment on above: Performed By: #### G LULS #### Point of Care testing , Bilirubin [Mass/Vol] 0.8 mg/dL Normal 0.3-1.2 [facility] [place] Comment on above: Performed By: #### G LULS #### Point of Care testing , Calcium [Mass/Vol] 9.2 mg/dL Normal 8.2-10.2 [facility] Comment on above: Performed By: #### G LULS #### Point of Care testing , Chloride [Moles/Vol] 104 mmol/L Normal 95-114 [facility] [place] Comment on above: Performed By: #### G LULS #### Point of Care testing , CO2 [Moles/Vol] 20.0 mmol/L Low 22.0-30.0 [facility] Comment on above: Performed By: #### G LULS #### Point of Care testing , Creatinine [Mass/Vol] 0.95 mg/dL Normal 0.44-1.03 [facility] Comment on above: Performed By: #### G LULS #### Point of Care testing , Creatinine Clr Calc Pharmacy [address] [facility] Comment on above: Result Comment: PERF ORMED BY: [facility] [address] [place] [address] PATHOLOGIST [employer] MONITOR DOMINGA SOLIMAN M.D. Performed By: #### G LULS #### Point of Care testing , Estimated GFR ( Grace > [address] [facility] Comment on above: Result Comment: GFR estimated reference range: According to KDOQI guidelines, <60 ml/min/1.73m2 is sufficient to diagnose a patient with chronic kidney disease. Performed By: #### G LULS #### Point of Care testing , Estimated GFR (Non- Am [address] [facility] Comment on above: Performed By: #### G LULS #### Point of Care testing , Globulin (S) [Mass/Vol] 3.6 g/dL Normal [facility] Comment on above: Performed By: #### G LULS #### Point of Care testing , Glucose [Mass/Vol] 271 mg/dL High 70-100 [facility] Comment on above: Result Comment: [facility] Glucose Reference Range is dependent on time and content of last meal. Glucose of more than 200 mg/dL in a nonstressed, ambulatory subject supports the diagnosis of Diabetes Mellitus. ADA recommended reference range Performed By: #### G LULS #### Point of Care testing , Potassium [Moles/Vol] 4.0 mmol/L Normal 3.5-5.1 [facility] Comment on above: Performed By: #### G LULS #### Point of Care testing , Protein [Mass/Vol] 7.0 g/dL Normal 6.1-7.9 [facility] Comment on above: Performed By: #### G LULS #### Point of Care testing , Sodium [Moles/Vol] 136 mmol/L Normal 136-146 [facility] Comment on above: Performed By: #### G LULS #### Point of Care testing , Urea nitrogen [Mass/Vol] 15 mg/dL Normal 9-23 [facility] Comment on above: Performed By: #### G LULS #### Point of Care testing , ECH echo transthoracicon ECH echo transthoracic [facility] [place] [address] Echocardiogram Signed Patient: Lucila Tineo MR#: [id number] : 1950 Acct:[id number] Age/Sex: 70 / F ADM Date: 08/06/20 Loc: Room: [address] [place] [address] Type: ADM IN Attending Dr: Drew Patterson MD Ordering Provider: Bravo Abdi MD Date of Service: 08/06/20 ECH/ECH echo transthoracic: NSTEMI, wall motion abnormalities Copies to: MD Cory Del Toro MD, [facility] Height: 64 in Weight: 167 lb [...] MR max P.8 mmHg Transcribed By: DELANO 08/07/20 1127 Dictated By: Cory Rudd MD, [facility] 08/07/20 0927 Signed By: 08/07/[address] [facility] Glucose Poct Glucometerson 0 08-07-[address] [facility] Comment on above: Result Comment: PERF ORMED BY: [facility] [address] [facility] [address] PATHOLOGIST [employer] MONITOR DOMINGA SOLIMAN M.D. Performed By: #### G LULS #### Point of Care testing , Glucose [Mass/Vol] 503 mg/dL Off scale high [facility] Comment on above: Result Comment: [place] [facility] Glucose Reference Range is dependent on time and content of last meal. Glucose of more than 200 mg/dL in a nonstressed, ambulatory subject supports the diagnosis of Diabetes Mellitus. Performed By: #### G LULS #### Point of Care testing , Commemt1 Glu2: Cleaned Meter [facility] Comment on above: Result Comment: PERF ORMED BY: [address] [place] [address] PATHOLOGIST [employer]ANCE [employer] MONITOR DOMINGA SLOIMAN M.D. Performed By: #### G LULS #### Point of Care testing , Glucose [Mass/Vol] 299 mg/dL Normal [facility] Comment on above: Result Comment: [place] [facility] Glucose Reference Range is dependent on time and content of last meal. Glucose of more than 200 mg/dL in a nonstressed, ambulatory subject supports the diagnosis of Diabetes Mellitus. Performed By: #### G LULS #### Point of Care testing , Commemt1 [facility] Comment on above: Result Comment: Glu2 : Will Repeat Test Performed By: #### G LULS #### Point of Care testing , Result Comment: Glu2 : WILL NOTIFY DR/RN Commemt2 [employer] [address] [facility] Comment on above: Result Comment: PERF ORMED BY: [address] [place] [address] PATHOLOGIST [employer] MONITOR DOMINGA SOLIMAN M.D. Performed By: #### G LULS #### Point of Care testing , Glucose [Mass/Vol] 429 mg/dL Off scale high [facility] Comment on above: Result Comment: [place] [facility] Glucose Reference Range is dependent on time and content of last meal. Glucose of more than 200 mg/dL in a nonstressed, ambulatory subject supports the diagnosis of Diabetes Mellitus. Performed By: #### G LULS #### Point of Care testing , Commemt1 Glu2: Cleaned Meter [facility] Comment on above: Performed By: #### P T, CBC, PTT #### [address] Commemt2 WILL NOTIFY DR/RN Normal [facility] Comment on above: Performed By: #### G LULS #### Point of Care testing , Performed By: #### P T, CBC, PTT #### [address] Commemt3 Will Repeat Test [facility] Comment on above: Result Comment: PERF ORMED BY: [place] [address] PATHOLOGIST [employer] MONITOR DOMINGA SOLIMAN M.D. Performed By: #### P T, CBC, PTT #### [address] Glucose [Mass/Vol] 429 mg/dL Off scale high [facility] Comment on above: Result Comment: [facility] Glucose Reference Range is dependent on time and content of last meal. Glucose of more than 200 mg/dL in a nonstressed, ambulatory subject supports the diagnosis of Diabetes Mellitus. Performed By: #### P T, CBC, PTT #### [facility] [address] [place] [address] Commemt1 Glu2: Cleaned Meter [facility] Comment on above: Result Comment: PERF ORMED BY: [place] [address] PATHOLOGIST [employer]ANCE [employer] MONITOR DOMINGA SOLIMAN M.D. Performed By: #### G LULS #### Point of Care testing , Glucose [Mass/Vol] 373 mg/dL [facility] Comment on above: Result Comment: [place] Glucose Reference Range is dependent on time and content of last meal. Glucose of more than 200 mg/dL in a nonstressed, ambulatory subject supports the diagnosis of Diabetes Mellitus. Performed By: #### G LULS #### Point of Care testing , Glucose [Mass/Vol] 261 mg/dL Normal [facility] Comment on above: Result Comment: [facility] Glucose Reference Range is dependent on time and content of last meal. Glucose of more than 200 mg/dL in a nonstressed, ambulatory subject supports the diagnosis of Diabetes Mellitus. PERFORMED BY: [facility] [address] [place] [address] PATHOLOGIST [employer]ANCE [employer] MONITOR DOMINGA SOLIMAN M.D. Performed By: #### P T, CBC, PTT #### [facility] [address] [place] [address] Lipid Panelon 08-07-2020 Cholesterol [Mass/Vol] 201 mg/dL High 140-200 [facility] Comment on above: Result Comment: Chol less than 200 mg/dl low risk Chol 201-239 mg/dl borderline risk Chol 240 mg/dl and greater high risk Performed By: #### G LULS #### Point of Care testing , Cholesterol in HDL [Mass/Vol] 49 mg/dL Normal 35-85 [facility] Comment on above: Result Comment: HDL CHOL ATP-III CLASSIFICATION Cardiovascular Risk HDL > or equal to 60 mg/dL LOW HDL < 40 mg/dL HIGH Performed By: #### G LULS #### Point of Care testing , Cholesterol.total/Cho lesterol in HDL [Mass ratio] 4.1 {ratio} Normal <5.0 [facility] Comment on above: Result Comment: PERF ORMED BY: [place] [address] PATHOLOGIST [employer] MONITOR DOMINGA SOLIMAN M.D. Performed By: #### G LULS #### Point of Care testing , LDL Cholesterol,Calculate d 127 mg/dL High 0-100 [facility] Comment on above: Result Comment: LDL ATP III CLASSIFICATION LDL less than 100 mg/dL Optimal LDL 100-129 mg/dL Near or above optimal LDL 130-159 mg/dL Borderline high LDL 160-189 mg/dL High LDL greater than 189 mg/dL Very high Performed By: #### G LULS #### Point of Care testing , Triglyceride w/Reflex 126 mg/dL Normal 35-149 [facility] Comment on above: Result Comment: TRIG ATP III CLASSIFICATION TRIG less than 150 mg/dL Normal TRIG 150-199 mg/dL Borderline high TRIG 200-500 mg/dL High TRIG greater than 500 mg/dL Very high Standard traceable to the Center for Disease Conrtrol and Prevention (CDC) test method. Performed By: #### G LULS #### Point of Care testing , VLDL CHOLESTEROL 25 mg/dL Normal [facility] Comment on above: Performed By: #### G LULS #### Point of Care testing , Magnesiumon 08-07-2020 Magnesium [Mass/Vol] 2.0 mg/dL Normal 1.6-2.6 [facility] [place] Comment on above: Performed By: #### G LULS #### Point of Care testing , Partial Thromboplastin Timeo n 08-07-2020 aPTT Coag (Bld) [Time] 42.8 s High 25.1-36.5 [facility] Comment on above: Result Comment: PERF ORMED BY: [place] [address] PATHOLOGIST [employer] MONITOR DOMIGNA SOLIMAN M.D. Performed By: #### G LULS #### Point of Care testing , aPTT Coag (Bld) [Time] 33.2 s Normal 25.1-36.5 [facility] Comment on above: Result Comment: PERF ORMED BY: [place] [address] PATHOLOGIST [employer]ANCE [employer] MONITOR DOMINGA SOLIMAN M.D. Performed By: #### P T, CBC, PTT #### [place] [address] [place] Prothrombin Time INRon 08-07 INR Coag (PPP) [Relative time] 1.0 {INR} Normal [facility] Comment on above: Result Comment: INR [...] 3 - 4.5 Performed By: #### G SHANEKA #### Point of Care testing , PT Coag (PPP) [Time] 11.4 s Normal 9.0-12.9 [facility] [place] Comment on above: Performed By: #### G SHANEKA #### Point of Care testing , INR Coag (PPP) [Relative time] 1.0 {INR} Normal [facility] Comment on above: Result Comment: INR [...] By: #### P T, CBC, PTT #### [facility] [address] [place] [address] [place] PT Coag (PPP) [Time] 11.2 s Normal 9.0-12.9 [facility] [place] Comment on above: Performed By: #### P T, CBC, PTT #### [facility] [address] [place] [address] [place] Troponin I(TnI)on 08-07-2020 Troponin I.cardiac [Mass/Vol] 3.26 ng/mL Off scale high 0-0.02 [facility] Comment on above: Result Comment: KRISTI [place] Cut off value > or equal to 0.03 ng/mL in conjunction with clinical conditions of myocardial infarction. (www.escardio.org/guidelines) PERFORMED BY: [place] [address] PATHOLOGIST SUR[employer]ANCE SYSTEM MONITOR DOMINGA SOLIMAN M.D. Performed By: #### P T, CBC, PTT #### [facility] [address] [place] [address] [place] Troponin I.cardiac [Mass/Vol] 3.61 ng/mL Off scale high 0-0.02 [facility] Comment on above: Result Comment: KRISTI CO Cut off value > or equal to 0.03 ng/mL in conjunction with clinical conditions of myocardial infarction. (www.escardio.org/guidelines) PERFORMED BY: [place] [address] PATHOLOGIST SUR[employer]ANCE SYSTEM MONITOR DOMINGA SOLIMAN M.D. Performed By: #### T ROP #### [facility] [address] [place] [address] Troponin I.cardiac [Mass/Vol] 4.39 ng/mL Off scale high 0-0.02 [facility] Comment on above: Result Comment: Resu lts called at 0009 on 08/07/20 KRISTI CO Cut off value > or equal to 0.03 ng/mL in conjunction with clinical conditions of myocardial infarction. (www.escardio.org/guidelines) PERFORMED BY: [place] [address] PATHOLOGIST SUR[employer]ANCE SYSTEM MONITOR DOMINGA SOLIMAN M.D. Performed By: #### P T, CBC, PTT #### [facility] [address] [place] [address] ECG 12 lead ECGon 08-06-2020 ECG 12 lead ECG [facility] [place] [address] [place] [address] Electrocardiograph Report Signed Patient: Lucila Tineo MR#: [id number] : 1950 Acct:[id number] Age/Sex: 70 / F ADM Date: 08/06/20 Loc: Room: [address] [place] [address] Type: ADM IN Attending Dr: Drew Patterson [...] Castillo MD 08/06/202110 Signed By: 08/07/[address] [facility] Vital Signs Date Time Vital Sign Value Performing Clinician Facility 12-08-2023 15:02-0400 Body height 162.6 cm Sonu Bruner DPM Work Phone: [facility] 12-08-2023 15:02-0400 Body mass index (BMI) [Ratio] 24.55 kg/m2 Sonu Bruner DPM Work Phone: [facility] 12-08-2023 15:02-0400 Body weight 64.86 kg Sonu Bruner DPM Work Phone: [facility] 12-04-2023 10:54-0400 Body height 162.6 cm Chyna Petznick DO Work Phone: [facility] 12-04-2023 10:54-0400 Body mass index (BMI) [Ratio] 24.55 kg/m2 Chyna Petznick DO Work Phone: [facility] 12-04-2023 10:54-0400 Body temperature 98.71 [degF] Chyna Petznick DO Work Phone: [facility] 12-04-2023 10:54-0400 Body weight 64.86 kg Chyna Petznick DO Work Phone: [facility] 12-04-2023 10:54-0400 Diastolic blood pressure 80 mm[Hg] Chyna Petznick DO Work Phone: [facility] 12-04-2023 10:54-0400 Heart rate 85 /min Chyna Petznick DO Work Phone: [facility] 12-04-2023 10:54-0400 SaO2% (BldA) [Mass fraction] 98 % Chyna Petznick DO Work Phone: [facility] 12-04-2023 10:54-0400 Systolic blood pressure 136 mm[Hg] Chyna Neelyick DO Work Phone: [facility] 11-17-2023 15:01-0400 Body mass index (BMI) [Ratio] 24.55 kg/m2 Mily Gaitanpatrick SUPERINTENDENT MAINTENANCE Work Phone: [facility] 11-17-2023 15:01-0400 Body temperature 97.5 [degF] Mily Gonzalezzpatrick SUPERINTENDENT MAINTENANCE Work Phone: [facility] 11-17-2023 15:01-0400 Body weight 64.86 kg Mily Gaitanpatrick SUPERINTENDENT MAINTENANCE Work Phone: [facility] 11-17-2023 15:01-0400 Diastolic blood pressure 84 mm[Hg] Mily Gonzalezzpatrick SUPERINTENDENT MAINTENANCE Work Phone: [facility] 11-17-2023 15:01-0400 Heart rate 88 /min Mily Colladotrick SUPERINTENDENT MAINTENANCE Work Phone: [facility] 11-17-2023 15:01-0400 SaO2% (BldA) [Mass fraction] 96 % Mily Colladotrick SUPERINTENDENT MAINTENANCE Work Phone: [facility] 11-17-2023 15:01-0400 Systolic blood pressure 134 mm[Hg] Mily Gonzalezzpatrick SUPERINTENDENT MAINTENANCE Work Phone: [facility] 07-07-2023 10:46-0400 Body height 162.6 cm Jah Sharpe MD Work Phone: [facility] 07-07-2023 10:46-0400 Body mass index (BMI) [Ratio] 23 kg/m2 Jah Sharpe MD Work Phone: [facility] 07-07-2023 10:46-0400 Body weight 60.78 kg Jah Sharpe MD Work Phone: [facility] 07-07-2023 10:46-0400 Diastolic blood pressure 52 mm[Hg] Jah Sharpe MD Work Phone: [facility] 07-07-2023 10:46-0400 Heart rate 85 /min Jah Sharpe MD Work Phone: [facility] 07-07-2023 10:46-0400 SaO2% (BldA) [Mass fraction] 96 % Jah Sharpe MD Work Phone: [facility] 07-07-2023 10:46-0400 Systolic blood pressure 123 mm[Hg] Jah Sharpe MD Work Phone: [facility] 03-06-2023 10:08-0500 Body height 162.6 cm Ange Gee MD Work Phone: [facility] 03-06-2023 10:08-0500 Body mass index (BMI) [Ratio] 25.23 kg/m2 Ange Gee MD Work Phone: [facility] 03-06-2023 10:08-0500 Body weight 66.68 kg Ange Gee MD Work Phone: [facility] 03-06-2023 10:08-0500 Diastolic blood pressure 80 mm[Hg] Ange Gee MD Work Phone: [facility] 03-06-2023 10:08-0500 Heart rate 87 /min Ange Gee MD Work Phone: [facility] 03-06-2023 10:08-0500 SaO2% (BldA) [Mass fraction] 94 % Ange Gee MD Work Phone: [facility] 03-06-2023 10:08-0500 Systolic blood pressure 132 mm[Hg] Ange Gee MD Work Phone: [employer] 12-11-2021 11:20-0400 Body height 162.56 cm Mily Andrade Work Phone: [facility] [address] DO Work Phone: 12-11-2021 11:20-0400 Body mass index (BMI) [Ratio] 27.98 kg/m2 Mily A Andrade Work Phone: [facility] [address] DO Work Phone: 12-11-2021 11:20-0400 Body surface area Derived from formula 1.79 m2 Mily A Andrade Work Phone: [facility] [address] DO Work Phone: 12-11-2021 11:20-0400 Body weight 73.94 kg Mily A Andrade Work Phone: [facility] [address] DO Work Phone: 12-11-2021 11:20-0400 Diastolic blood pressure 78 mm[Hg] Mily A Andrade Work Phone: [facility] [address] DO Work Phone: 12-11-2021 11:20-0400 Heart rate 76 /min Mily A Andrade Work Phone: [facility] [address] DO Work Phone: 12-11-2021 11:20-0400 Systolic blood pressure 136 mm[Hg] Mily Ashley Andrade Work Phone: [facility] [address] DO Work Phone: 02-05-2021 11:35-0500 Body height 162.56 cm Mily A Andrade Work Phone: [facility] [address] DO Work Phone: 02-05-2021 11:35-0500 Body mass index (BMI) [Ratio] 28.67 kg/m2 Mily A Andrade Work Phone: [facility] [address] DO Work Phone: 02-05-2021 11:35-0500 Body surface area Derived from formula 1.81 m2 Mily Ashley Andrade Work Phone: [facility] [address] DO Work Phone: 02-05-2021 11:35-0500 Body weight 75.75 kg Mily Ashley Andrade Work Phone: [facility] [address] DO Work Phone: 02-05-2021 11:35-0500 Diastolic blood pressure 81 mm[Hg] Mily A Andrade Work Phone: [facility] [address] DO Work Phone: 02-05-2021 11:35-0500 Heart rate 77 /min Mily Ashley Andrade Work Phone: [facility] [address] DO Work Phone: 02-05-2021 11:35-0500 Systolic blood pressure 157 mm[Hg] Mily Ashley Andrade Work Phone: [facility] [address] DO Work Phone: 12-04-2020 15:01-0400 Diastolic blood pressure 72 mm[Hg] Bruce Elias DO Work Phone: [facility] [employer] [address] DO Work Phone: 12-04-2020 15:01-0400 Systolic blood pressure 170 mm[Hg] Bruce Elias DO Work Phone: [facility] [address] DO Work Phone: 12-04-2020 13:53-0400 Body height 162.56 cm Bruce Elias DO Work Phone: [facility] [address] DO Work Phone: 12-04-2020 13:53-0400 Body mass index (BMI) [Ratio] 29.01 kg/m2 Bruce Elias DO Work Phone: [facility] [employer] [address] DO Work Phone: 12-04-2020 13:53-0400 Body surface area Derived from formula 1.82 m2 Bruce Elias DO Work Phone: -[facility] 600 DO Work Phone: 12-04-2020 13:53-0400 Body weight 76.66 kg Bruce Elias DO Work Phone: -[facility] [address] DO Work Phone: 12-04-2020 13:53-0400 Diastolic blood pressure 90 mm[Hg] Bruce Elias DO Work Phone: -[facility] [address] DO Work Phone: 12-04-2020 13:53-0400 Heart rate 68 /min Bruce Elias DO Work Phone: [facility] [address] DO Work Phone: 12-04-2020 13:53-0400 Systolic blood pressure 150 mm[Hg] Bruce Elias DO Work Phone: -[facility] [address] DO Work Phone: 11-06-2020 15:18-0400 70 1 Bruce Elias DO Work Phone: [facility] 600 DO Work Phone: Comment on above: [id number] Encounters Encounter Date Encounter Type Care Provider Facility Start: 12-15-2023 End: 12-17-2023 Orders Only Corrie Coley MD Work Phone: [facility] Comment on above: Major depressive dis order, remission status unspecified, unspecified whether recurrent (CMS/HCC) (Primary Dx) Start: 12-11-2023 End: 12-11-2023 Clinisync Result Encounter Yadira Andrade NP Work Phone: [facility] External Department Unsolicited Start: 12-11-2023 End: 12-11-2023 Clinisync Result Encounter Yadira Andrade NP Work Phone: [facility] External Department Unsolicited Start: 12-10-2023 End: 12-10-2023 Telephone encounter Chyna Luna DO Work Phone: [facility] Start: 12-08-2023 End: 12-08-2023 Office outpatient new 30 minutes Sonu Bruner DPM Work Phone: [facility] Comment on above: Lymph node enlargeme nt (Primary Dx); Foot swelling; Onychodystrophy; Onychomycosis; Weakness due to acute cerebrovascular accident (CVA) (CMS/HCC); Pain in both feet Start: 12-08-2023 End: 12-08-2023 ambulatory SONU BRUNER Not Available Start: 12-08-2023 End: 12-08-2023 E-mail encounter from caregiver Jah Sharpe MD Work Phone: [facility] Start: 12-08-2023 End: 12-08-2023 Patient encounter procedure Jah Sharpe MD Work Phone: [facility] Comment on above: Cerebrovascular Neur ology Appointment Reminder Start: 12-04-2023 End: 12-04-2023 Bamboo flowsheet Chyna Luna DO Work Phone: [facility] 230 Start: 12-04-2023 End: 12-04-2023 Bamboo flowsheet Chyna Luna DO Work Phone: [facility] 230 Start: 12-04-2023 End: 12-04-2023 Telephone encounter Chyna Luna DO Work Phone: [facility] 230 Start: 12-04-2023 End: 12-04-2023 Office outpatient visit 25 minutes Chyna Luna DO Work Phone: [facility] 230 Comment on above: Type 1 diabetes clarita itus with other circulatory complications (CMS/HCC) (Primary Dx); Type 1 diabetes mellitus with hyperglycemia (HCC) (CMS/HCC); Type 1 diabetes mellitus with hypoglycemia and without coma (CMS/HCC) Start: 12-04-2023 End: 12-04-2023 ambulatory CHYNA LUNA [facility] Comment on above: Unruptured Aneurysm Start: 12-02-2023 End: 12-02-2023 Telephone encounter Jah Sharpe MD Work Phone: [facility] Comment on above: Medication Question Paroxysmal atrial fi brillation (CMS/HCC) (Primary Dx) Start: 11-17-2023 End: 11-17-2023 ambulatory MILY ANDRADE Not Available Start: 11-17-2023 End: 11-17-2023 Office outpatient visit 25 minutes Mily Andrade SUPERINTENDENT MAINTENANCE Work Phone: [facility] Comment on above: Burning with urinati on [...] [facility] Comment on above: Received Outside [facility] Records (Rec'd lab report from [employer] imported into [employer]) Start: 07-14-2023 Telephone encounter Jah Sharpe MD Work Phone: [facility] Comment on above: Results (PT-INR Resu lts ) Start: 07-13-2023 ambulatory Jah Sharpe MD Work Phone: [facility] Comment on above: Unruptured Aneurysm (Diagnostic Cerebral Angiogram) Cerebral Angiogram I nstructions for 08/06/2023 Start: 07-13-2023 E-mail encounter fito rolo caregiver Jah Sharpe MD Work Phone: [facility] Start: 07-10-2023 ambulatory Jah Sharpe MD Work Phone: [facility] Comment on above: Plan of Care Start: 07-10-2023 E-mail encounter fro m caregiver Jah Sharpe MD Work Phone: [facility] Start: 07-07-2023 End: 07-07-2023 ambulatory MILY ANDRADE Facility:[facility] Start: 07-07-2023 End: 07-07-2023 Patient encounter procedure Jah Sharpe MD Work Phone: [facility] Comment on above: Unruptured cerebral aneurysm (Primary Dx); Hypertension, unspecified type; Hyperlipidemia, unspecified hyperlipidemia type; Atrial fibrillation, unspecified type (HCC); Ischemic stroke (HCC) Start: 07-07-2023 End: 07-07-2023 ambulatory MILYDayana ANDRADE Facility:[facility] Start: 07-07-2023 End: 07-07-2023 Subsequent hospital visit by physician Ct 2 Main Qb (I-Stat) Radiology Comment on above: Nonruptured cerebral aneurysm [I67.1] Start: 06-25-2023 End: 06-25-2023 ambulatory [facility] Start: 04-29-2023 Telephone encounter [facility]eni [facility] Comment on above: Calcified granuloma of lung (CMS-HCC) (Primary Dx) Start: 04-21-2023 End: 04-21-2023 ambulatory MILY ANDRADE Not Available Start: 04-14-2023 Clinisync Result Encounter Radha Herrera MD Work Phone: [facility] External Department Unsolicited Start: 04-14-2023 Clinisync Result Encounter Radha Herrera MD Work Phone: [facility] External Department Unsolicited Start: 03-25-2023 End: 03-25-2023 Emergency department patient visit EDWARD CHRISTINE Facility:[facility] Start: 03-25-2023 End: 03-25-2023 ambulatory MILY ANDRADE Facility:[facility] Start: 03-06-2023 End: 03-06-2023 ambulatory [place] [facility] Start: 03-06-2023 End: 03-06-2023 Office outpatient visit 25 minutes Ange Gee MD Work Phone: [facility] Comment on above: Essential hypertensi on (Primary Dx); Paroxysmal atrial fibrillation (CMS-HCC) Start: 03-05-2023 Telephone encounter [facility] Goldstein [facility] Start: 03-02-2023 ambulatory [facility] Start: 03-01-2023 ambulatory [facility] Start: 01-20-2023 ambulatory Jah Sharpe MD Work Phone: [facility] Comment on above: Anticoag Start: 01-16-2023 ambulatory Jah Sharpe MD Work Phone: [facility] Comment on above: Images Start: 01-02-2023 Telephone encounter Jah Sharpe MD Work Phone: [facility] Comment on above: Line Maintenance - O ther Start: 12-16-2022 End: 12-16-2022 ambulatory Jah Sharpe MD Work Phone: [facility] Comment on above: Unruptured cerebral aneurysm (Primary Dx); Ischemic stroke (HCC); Hypertension, unspecified type; Hyperlipidemia, unspecified hyperlipidemia type; Smoking Start: 12-16-2022 End: 12-16-2022 Telemedicine consultation with patient Jah Sharpe MD Work Phone: [facility] Start: 12-04-2022 Telephone encounter Neurology Provid er [facility] Comment on above: Future Appointment ( New [place], [place], Any) Start: 08-25-2022 Rx Renewal Mily Andrade Work Phone: [facility] 250 DO Work Phone: Start: 01-07-2022 Rx Renewal Mily Andrade Work Phone: [facility] 250 DO Work Phone: Start: 12-11-2021 Office outpatient vi sit 15 minutes Mily Andrade Work Phone: [facility] 250 DO Work Phone: Start: 12-11-2021 ambulatory Ms. Mily ramos Lupe Facility: Start: 10-11-2021 Telephone encounter Mily Ashley Lupe Work Phone: [facility] 250 DO Work Phone: Start: 09-03-2021 Rx Renewal Mily Ashley Andrade Work Phone: [facility] 250 DO Work Phone: Start: 02-05-2021 Office outpatient vi sit 10 minutes Mily Ashley Andrade [facility] Work Phone: Start: 02-05-[address] Bruce Elias [facility] ility: Start: 12-04-2020 Patient encounter procedure Bruce Elias DO Work Phone: [facility] 600 DO Work Phone: Start: 09-05-2020 End: 03-06-2021 ambulatory SALAS KIRKPATRICK Facility: Echocardiogram normal Mily Ashley Andrade [facility] Work Phone: Procedures Date Procedure Procedure Detail Performing Clinician Start: 12-11-2023 TBH UA (CLEAN/CATCH) MICROSCOPIC IF INDICATE Yadira Andrade SUPERINTENDENT MAINTENANCE Work Phone: Start: 11-17-2023 Dup-scan xtr veins unilateral/limited study Mily Andrade SUPERINTENDENT MAINTENANCE Work Phone: Start: 11-17-2023 Culture bacterial quanttative colony count urine Mily Gabi Lupe SUPERINTENDENT MAINTENANCE Work Phone: Start: 11-17-2023 Urnls dip stick/tabl et rgnt non-auto w/o micrscp Mily Andrade SUPERINTENDENT MAINTENANCE Work Phone: Start: 11-17-2023 Hemoglobin glycosyla adarsh a1c Mily Ashley Lupe SUPERINTENDENT MAINTENANCE Work Phone: Start: 07-07-2023 Ct angiography head w/contrast/noncontrast Jeffery Gordon APRN.TRIAGE TECHNICIAN Work Phone: Start: 07-07-2023 Creatinine [Mass/vol ume] in Serum or Plasma [facility] Provider Start: 04-14-2023 TB UA (CLEAN/CATCH) SALES SUPPORT SPECIALIST/MICRO IF IND. Radha Herrera MD Work Phone: Start: 04-14-2023 TB URINE MICROSCOPIC ONLY Radha Herrera MD Work Phone: Start: 03-06-2023 Follow-up visit Follow-up ANGE MarJaylen GERARD Start: 04-24-2022 Mammography Radha Herrera MD Work Phone: Start: 06-05-2016 Colonoscopy Radha Herrera MD Work Phone: Appendectomy Bruce Elias DO Work Phone: Decompression of med estuardo nerve Bruce Elias DO Work Phone: Excision of cyst Bruce zambrano DO Work Phone: Hysterectomy Bruce Elias DO Work Phone: Ligation of fallopian tube Jodi douglasrolo Elias DO Work Phone: Percutaneous translu darryl coronary angioplasty Bruce Elias DO Work Phone: Tonsillectomy Bruce ramos DO Work Phone: Total colonoscopy Bruce robin DO Work Phone: Plan of Treatment Date Care Activity Detail Author Start: 06-09-2028 DTaP,Tdap and Td Vaccines (2 - Td or Tdap) DTaP,Tdap and Td Vaccines (2 - Td or Tdap) [facility] Start: 06-09-2028 Urine microalbumin profile DTaP,Tdap,Td Vaccine (2 - Td or Tdap) [facility] Start: 06-05-2026 Screening for malign ant neoplasm of colon [facility] Start: 01-16-2026 Diabetes Screening Diabetes Screenin g [facility] Start: 12-03-2025 Glaucoma screening Diabetes: R etinopathy Screening [facility] Start: 12-26-2024 Glaucoma screening Diabetes: R etinopathy Screening [facility] Start: 07-06-2024 BP Controlled (<130/80) BP Controlle d (<130/80) [facility] Start: 03-11-2024 End: 03-11-2024 Patient encounter procedure 03/11/2024 10:15 AM EST Office Visit [facility] [address] [place] [address] Chyna Luna, DO [address] [place] [address] [facility] 230 Start: 03-06-2024 Adult BMI Screening Adult BMI Screen ing [facility] Start: 03-06-2024 Tobacco Screening Tobacco Screening [facility] Start: 02-16-2024 Hemoglobin A1c measurement Diabetes: Hemoglobin A1C [facility] Start: 02-09-2024 End: 02-09-2024 Patient encounter procedure 02/09/2024 1:00 PM EST Office Visit [facility] [address] [place] [address] Jorge A Doshi DO [address] [place] [address] [facility] Start: 01-27-2024 End: 01-27-2024 Patient encounter procedure 01/27/2024 2:00 PM EST Office Visit [facility] [address] [place] [address] Jorge A Doshi DO [address] [place] [address] [facility] Start: 01-22-2024 Adult BMI Screening Adult BMI Screen ing [facility] Start: 01-19-2024 Tobacco Screening Tobacco Screening [facility] Start: 12-08-2023 End: 12-08-2023 Patient encounter procedure 12/08/2023 3:15 PM EDT Office Visit [facility] [address] [place] [phone] Sonu Bruner DPM [address] [place], [place] [id number] [facility] Start: 12-04-2023 End: 03-04-2024 CREATININE BLD CREATININE BLD Lab Routine Nonruptured cerebral aneurysm Expected: 12/04/2023, Expires: 03/04/2024 [facility] Comment on above: Expected: 12/04/2023 , Expires: 03/04/2024 Start: 12-04-2023 End: 12-04-2023 Patient encounter procedure [facility] 230 Comment on above: Diabetic ketoacidosi s without coma associated with type 2 diabetes mellitus ([facility]) Start: 12-02-2023 Urine screening for protein Diabetes: Urine Protein Screening [facility] Start: 11-01-2023 Covid-19 Vaccine ( season) Covid-19 Vaccine () [facility] Start: 11-01-2023 Influenza vaccination [facility] Start: 08-06-2023 Subsequent hospital visit by physician 08/06/2023 Hospital Encounter [facility] [address] [place] [address] Jah Sharpe MD [address] [place], [place] [id number] Unruptured cerebral aneurysm [I67.1] [facility] Comment on above: Unruptured cerebral aneurysm [I67.1] Start: 07-17-2023 Hemoglobin A1c measurement HbA1C [facility] Start: 07-13-2023 End: 10-12-2023 aPTT in Platelet poor plasma by Coagulation assay ACTIVATED PARTIAL THROMBOPLASTIN TIME Lab Routine Unruptured cerebral aneurysm Encounter for monitoring antiplatelet therapy Expected: 07/13/2023, Expires: 10/12/2023 [facility] Comment on above: Expected: 07/13/2023 , Expires: 10/12/2023 Start: 07-13-2023 End: 10-12-2023 Basic metabolic 2000 panel - Serum or Plasma BASIC METABOLIC PANEL Lab Routine Unruptured cerebral aneurysm Expected: 07/13/2023, Expires: 10/12/2023 [facility] Comment on above: Expected: 07/13/2023 , Expires: 10/12/2023 Start: 07-13-2023 End: 10-12-2023 CBC panel - Blood by Automated count COMPLETE BLOOD COUNT Lab Routine Unruptured cerebral aneurysm Expected: 07/13/2023, Expires: 10/12/2023 [facility] Work Phone: Comment on above: Expected: 07/13/2023 , Expires: 10/12/2023 Start: 07-13-2023 End: 10-12-2023 PT panel - Platelet poor plasma by Coagulation assay PROTHROMBIN TIME Lab Routine Unruptured cerebral aneurysm Encounter for monitoring antiplatelet therapy Expected: 07/13/2023, Expires: 10/12/2023 [facility] Comment on above: Expected: 07/13/2023 , Expires: 10/12/2023 Start: 06-25-2023 End: 06-25-2023 Patient encounter procedure 06/25/2023 2:00 PM EDT Office Visit [facility] [address] [place] [phone] Jeniffer Jefferson, DO [address] [id number] [facility] Start: 05-17-2023 Urine screening for protein Diabetes: Urine Protein Screening [facility] Start: 04-24-2023 Screening for malign ant neoplasm of breast [facility] Start: 04-21-2023 End: 04-21-2023 Patient encounter procedure 04/21/2023 3:00 PM EST Office Visit [facility] [address] [phone] Mily Andrade NP [address] [place] [address] [facility] Start: 04-16-2023 Medicare Annual Well ness (AWV) Medicare Annual Wellness (AWV) [facility] Start: 03-06-2023 End: 03-06-2023 Patient encounter procedure 03/06/2023 10:15 AM EST Office Visit [facility] [address] [place] [address] Ange Gee MD [address] [place] [address] [facility] Start: 03-02-2023 Advance Directive Discussion Advance Directive Discussion [facility] Start: 03-02-2023 Behavioral Health Screening Behavioral Health Screening [facility] Start: 12-11-2022 FUV, Provider: Bruce Elias, Status: Pen, Time: 10:20 AM FUV, Provider: Bruce Elias, Status: Pen, Time: 10:20 AM [facility] 250 DO Work Phone: Start: 10-31-2022 Covid-19 Vaccine ( season) Covid-19 Vaccine () [facility] Start: 10-31-2022 Influenza vaccination C [facility] Start: 06-11-2022 Hemoglobin A1c measurement Diabetes: Hemoglobin A1C [facility] Start: 03-02-2022 Advance Directive Discussion Advance Directive Discussion [facility] Start: 03-02-2022 Depression Assessment Depression Ass essment [facility] Start: 12-11-2021 FUV, Provider: Bruce Elias, Status: Pen, Time: 11:20 AM FUV, Provider: Bruce Elias, Status: Pen, Time: 11:20 AM [facility] 600 DO Work Phone: Start: 02-19-2021 NURSEVST, Provider: DAVID LANDEROS SOIL SORT WORKER 1,[id number], Status: Pen, Time: 11:00 AM NURSEVST, Provider: DAVID LANDEROS SOIL SORT WORKER 1,[id number], Status: Pen, Time: 11:00 AM [facility] 250 DO Work Phone: Start: 01-09-2021 FUV, Provider: Salas Wilson, Status: Pen, Time: 1:30 PM FUV, Provider: Salas Wilson, Status: Pen, Time: 1:30 PM [facility] 600 DO Work Phone: Start: 04-03-2020 Administration of varicella zoster vaccine Zoster (Shingles) Vaccine (2 of 2) [facility] Start: 04-03-2020 Shingrix Vaccine (2 of 2) Shingrix Vaccine (2 of 2) [facility] Start: 2015 Bone Density Screening Bone Density Screening [facility] Start: 2015 Fall Risk Screening Fall Risk Screen ing [facility] Start: 2010 RSV Vaccine (1 - 1-d ose 60+ series) RSV Vaccine (1 - 1-dose 60+ series) [facility] Start: 2010 RSV Vaccine (1 - Ris k 60-74 years 1-dose series) RSV Vaccine (1 - Risk 60-74 years 1-dose series) [facility] Start: 02-22-2000 Screening for malign ant neoplasm of lung Lung Cancer Screening [facility] Start: 02-22-2000 Shingrix Vaccine (1 of 2) Shingrix Vaccine (1 of 2) [facility] Start: 1995 Cologuard (FIT-DNA) Cologuard (FIT-D NA) [facility] Start: 1995 Colonoscopy Colonoscopy [facility] Start: 1995 Colorectal Cancer Screening Colorectal Cancer Screening [facility] Start: [address] COLONOGRAPHY [facility] Start: 1995 Diabetes Screening Diabetes Screenin g [facility] Start: 1995 Fecal Occult Blood Fecal Occult Bloo d [facility] Start: 1995 Lipid 1996 panel - S lilliam or Plasma Lipid Screening [facility] Start: 1995 Screening for malign ant neoplasm of colon [facility] Start: 1995 SIGMOIDOSCOPY SIGMOIDOSCOPY [facility] Start: 1990 Mammography Mammogram Screening [facility] Start: 1969 Urine microalbumin profile DTaP,Tdap,Td Vaccine (1 - Tdap) [facility] Start: 02-22-1968 Adult BMI Follow Up Plan Adult BMI F ollow Up Plan [facility] Start: 02-22-1968 Annual PCP Team Lead Die Molder dorina Disease Visit Annual PCP Team Chronic Disease Visit [facility] Start: 02-22-1968 Anxiety Screening Anxiety Screening [facility] Start: 02-22-1968 Depression Screening Depression Scre ening [facility] Start: 02-22-1968 Diabetic foot examination Diabetic Foot Exam [facility] Start: 02-22-1968 Hepatitis B surface antibody level LDL Cholesterol [facility] Start: 02-22-1968 Hepatitis C Screening Hepatitis C [facility] Start: 02-22-1968 Hepatitis C screening Hepatitis C [facility] Start: 1962 Depression Screening Depression Scre ening [facility] Start: 02-22-1960 Diabetic foot examination Diabetic Foot Exam [facility] Start: 02-22-1960 Glaucoma screening Dilated Retinal E xam [facility] Start: 02-22-1960 Hepatitis B screening Urine Al bumin:Creatinine Ratio [facility] Start: 02-22-1956 Pneumococcal Vaccine : 65+ (1 - PCV) Pneumococcal Vaccine: 65+ (1 - PCV) [facility] Start: 1950 Glaucoma screening Diabetic Op hthalmology Exam [facility] Start: 1950 Medicare Annual Well ness Visit Medicare Annual Wellness Visit [facility] Start: 1950 Screening for malign ant neoplasm of colon [facility] Start: 1950 Tobacco Counseling Tobacco Counselin g [facility] Start: 1950 Urine screening for protein Urine Microalbumin [facility] End: 01-02-2025 CTA Head vessels WO and W contrast IV CTA HEAD WO/W IVCON Radiology Routine Nonruptured cerebral aneurysm 1 Occurrences starting 12/04/2023 until 01/02/2025 [facility] Work Phone: Comment on above: 1 Occurrences starti ng 12/04/2023 until 01/02/2025 IR CEREBRAL ARCH & T HREE VESSEL IR CEREBRAL ARCH & THREE VESSEL Radiology Routine Unruptured cerebral aneurysm Ordered: 07/13/2023 [facility] Comment on above: Ordered: 07/13/2023 End: [...] RADIOLOGICAL SUPERVISION AND INTERPRETATION Unruptured cerebral aneurysm [facility] Immunizations Immunization Date Immunization Notes Care Provider [facility] 05-16-2022 influenza, injectabl e, quadrivalent, preservative free Chyna Luna DO Work Phone: [facility] 05-16-2022 influenza virus vaccine, unspecified formulation Jah Sharpe MD Work Phone: [facility] 04-10-2021 Moderna COVID-19 Vaccine 100 MCG/0.5ML Intramuscular Suspension Mily Andrade Work Phone: [facility] 250 DO Work Phone: 05-09-2020 Lico COVID-19 Vaccine 0.5 ML Intramuscular Suspension Bruce Elias DO Work Phone: [facility] 02-07-2020 influenza, high dose seasonal, preservative-free Bruce Elias DO Work Phone: [facility] 600 DO Work Phone: 02-07-2020 zoster vaccine recombinant Bruce Elias DO Work Phone: [facility] 600 DO Work Phone: 02-07-2020 influenza virus vaccine, unspecified formulation Neurology Provider [facility] 02-07-2020 zoster vaccine, unspecified formulation Corrie Goldstein [facility] 03-02-2019 influenza, seasonal, injectable Bruce Elias DO Work Phone: [facility] 600 DO Work Phone: 02-14-2019 influenza, high dose seasonal, preservative-free Bruce Elias DO Work Phone: [facility] 600 DO Work Phone: 06-09-2018 tetanus toxoid, redu clif diphtheria toxoid, and acellular pertussis vaccine, adsorbed Bruce Elias DO Work Phone: [facility] 600 DO Work Phone: 03-02-2018 pneumococcal polysaccharide vaccine, 23 valent Bruce Elias DO Work Phone: [facility] 600 DO Work Phone: 12-02-2017 influenza, high dose seasonal, preservative-free Bruce Elias DO Work Phone: [facility] 600 DO Work Phone: 02-25-2017 influenza, high dose seasonal, preservative-free Bruce Elias DO Work Phone: [facility] 600 DO Work Phone: 02-17-2017 pneumococcal polysaccharide vaccine, 23 valent Bruce Elias DO Work Phone: [facility] 600 DO Work Phone: 11-06-2015 influenza, injectabl e, quadrivalent, contains preservative Bruce Elias DO Work Phone: [facility] 600 DO Work Phone: 11-06-2015 influenza, injectabl e, quadrivalent, preservative free Chyna Bandar DO Work Phone: [facility] 11-06-2015 pneumococcal conjuga te vaccine, 13 valent Bruce Elias DO Work Phone: [facility] 600 DO Work Phone: 12-11-2014 seasonal influenza, intradermal, preservative free Chyna Petlisetteick DO Work Phone: [facility] 11-30-2014 influenza, seasonal, injectable, preservative free Chyna Luna DO Work Phone: [facility] 12-15-2013 influenza, seasonal, injectable Bruce Elias DO Work Phone: [facility] 600 DO Work Phone: 12-21-2012 influenza, seasonal, injectable Bruce Elias DO Work Phone: [facility] 600 DO Work Phone: 12-16-2006 pneumococcal polysaccharide vaccine, 23 valent Bruce Elias DO Work Phone: [facility] 600 DO Work Phone: 11-18-2006 pneumococcal polysaccharide vaccine, 23 valent Bruce Elias DO Work Phone: [facility] 600 DO Work Phone: Payers Date Payer Category Payer Medicaid [id number] 2023 Medicaid [id number] 2023 Medicaid [id number] 2015 Medicare [id number] 2015 Medicare [id number] 1959 Medicare [id number] 1950 Unknown [id number] 2.16.84 [id number] 1950 Unknown [id number] 2.16. [id number] 1950 Unknown [id number] 2.16. [id number] 1950 Unknown [id number] 2.16.84 [id number] 1950 Unknown [id number] 2.16.8 [id number] 1950 Unknown [id number] 2.16.84 [id number] 1950 Unknown [id number] 2.16.84 [id number] 1950 Unknown [id number] 2.16.84 [id number] 1950 Unknown [id number] 2.16.84 [id number] 1950 Unknown [id number] 2.16.84 [id number] 1950 Unknown [id number] 2.16.84 [id number] 1950 Unknown [id number] 2.16.84 [id number] 1950 Unknown [id number] 2.16.84 [id number] 1950 Unknown [id number] 2.16.84 [id number] Unknown Social History Date Type Detail Facility Start: 10-14-2018 End: 11-17-2023 No alcohol use No alcohol use [facility] Comment on above: 1 TEA DAILY; 1/2 PPD; Start: 10-14-2018 End: 03-25-2023 Tobacco smoking status NHIS Smokes tobacco daily [facility] Start: 03-02-1989 History of tobacco use Cigarette Smo ker [facility] Start: 10-14-2018 End: 11-17-2023 Tobacco use and exposure Smokeless tobacco non-user [facility] Start: 04-21-2019 End: 11-17-2023 Tobacco use panel [facility] National Score (1-10 0), lower number is lower risk Not on file [facility] Start: 1950 Sex Assigned At Female C [facility] Start: 05-14-2022 Gender identity Identifies as female gender (finding) [facility] Start: 12-09-2022 Sexual orientation Heterosexual (fin ding) [facility] Start: 01-18-2023 End: 03-06-2023 Alcohol intake Ex-drinker (finding) [facility] Start: 1950 Sex Assigned At Not on file P [facility] Start: 12-26-2022 End: 11-17-2023 Tobacco smoking status WIIS Ex-smoker [facility] Start: 03-02-1989 History of tobacco use Current smoke r [facility] Start: 12-02-2023 End: 12-08-2023 Alcoholic beverage intake Lifetime non-drinker (finding) [facility] Start: 11-17-2023 Alcohol Comment caffeine: 2-3 cups per day [facility] How often to you hav e a drink containing alcohol? Never [facility] Medical Equipment Procedure Code Equipment Code Equipment Origin al Text Equipment Identifier Dates Inject 1 each un chano the skin in the morning and 1 each in the evening and 1 each before bedtime. [id number] Start: 07-22-2022 Goals Date Patient Goal Desired Activity /State Personal health goal Comment on above: Formatting of this n ote might be different from the original. Evaluation of progress towards goal: In progress: Return to [place]. Personal health goal Clinical Notes 12-08-2022 to 12-15-2023 Telephone Encounter - Corrie Coley MD - 12/15/2023 5:36 PM EDTTelephone Encounter - Corrie Coley MD - 12/15/2023 5:36 PM EDTTelephone Encounter - Florentin Russ - 12/15/2023 8:57 AM EDT Note Date & Type Note Facility 12-15-2023 Telephone encounter Note Refills sent. [facility] 12-15-2023 Miscellaneous Notes Refills sent. Needs to capsules please Rosa at [facility] [phone] Would like a callback about the rx I called the assisted living to confirm the pharmacy and they have to call back, so I'm not sure if the Medicine shop is correct or not. documented in this encounter [facility] 12-15-2023 Telephone encounter Note Needs to capsules please [facility] 12-15-2023 Telephone encounter Note Rosa at [facility] [phone] Would like a callback about the rx I called the assisted living to confirm the pharmacy and they have to call back, so I'm not sure if the Medicine shop is correct or not. [facility] 12-10-2023 Telephone encounter Note Please have them change her meal time insulin to 6 units breakfast and lunch and 10 units dinner plus corrections. thanks [facility] 12-10-2023 Miscellaneous Notes Please have them change her meal time insulin to 6 units breakfast and lunch and 10 units dinner plus corrections. thanks documented in this encounter [facility] 12-08-2023 History of Present illness Narrative Images from the original note were not included. Subjective Patient ID: Lucila Tineo is a 73 y.o. female who presents for Foot Problem (73 yo OP presents today with concerns of swelling in left foot, pt relates she had xrays done. Had xrays done with [facility], no fx, just soft tissue swelling. Stroke last September 2022. PCP: [facility]ar [facility] 12/04/23, A1C: 8.7, BS: 325). HPI This is a new patient who presents to clinic with concern of swelling of the left lower extremity. Patient states that she sustained a cerebrovascular accident approximately a year ago with left lower extremity weakness. She has been living in an assisted facility since that time and working with therapyTo improve her strength. Since her stroke she has noted swelling along the left lower extremity. Swelling is seeming to worsen recently. No treatment tried. She did have radiographs of the left foot as well as venous duplex ultrasound of the left lower extremity. Review of Systems Constitutional: Positive for activity change. Negative for fatigue. Respiratory: Negative for chest tightness and shortness of breath. Cardiovascular: Positive for leg swelling. Negative for chest pain. Musculoskeletal: Positive for gait problem. Negative for arthralgias and joint swelling. Skin: Negative for color change and wound. Neurological: Positive for weakness and numbness. Psychiatric/Behavioral: Negative for agitation and behavioral problems. Hematological: Does not bruise/bleed easily. Allergic/Immunologic: Negative for immunocompromised state. Past medical History Past Medical History: Diagnosis Date AAA (abdominal aortic aneurysm) ([facility]/HCC) Arthritis Basal cell carcinoma Bilateral biceps tendonitis Carpal tunnel syndrome Cataract Coronary artery disease (CMS/HCC) COVID-19 Diabetes mellitus (CMS/HCC) Disease of thyroid gland (CMS/HCC) DM (diabetes mellitus) (CMS/HCC) Epidermal cyst of neck Hypercholesteremia (CMS/HCC) Hyperlipidemia (CMS/HCC) Hypertension (CMS/HCC) Hypothyroidism (CMS/HCC) Left knee pain director long term care (current) use of insulin (CMS/HCC) Neck mass PAD (peripheral artery disease) (CMS/HCC) Personal history of other malignant neoplasm of skin Right ankle pain Shingles Shoulder pain Skin cyst Stroke (CMS/HCC) 09/2022 Tobacco dependence Type 2 diabetes mellitus without complications (CMS/HCC) Venous insufficiency of leg Medications Current Outpatient Medications: acetaminophen (Tylenol) 325 MG tablet, , Disp: , Rfl: Anti-Diarrheal 2 MG tablet, , Disp: , Rfl: ASPIRIN 81 MG chewable tablet, Chew Daily, Disp: , Rfl: atorvastatin (Lipitor) 40 MG tablet, 1 (one) time each day at the same time., Disp: , Rfl: Continuous Glucose Cable Splicer Apprentice (FreeStyle Shaina 3 Rapidan) device, 1 Device See administration instructions, Disp: 1 each, Rfl: 0 Continuous Glucose Sensor (FreeStyle Shaina 3 Plus Sensor) misc, 1 each See administration instructions, Disp: 6 each, Rfl: 3 D3-1000 25 MCG (1000 UT) capsule, , Disp: , Rfl: insulin glargine (Lantus) 100 UNIT/ML injection, Injection subcutaneous 15 in the am and 10 units at night, Disp: 10 mL, Rfl: 3 insulin lispro (HumaLOG) 100 unit/ml injection, Injection subcutaneous 4 units breakfast, 6 units lunch/dinner plus correction 1:75 > 150 mg/dl (max daily 50 units), Disp: 10 mL, Rfl: 3 levothyroxine (Synthroid) 150 MCG tablet, Take by mouth Daily before meals, Disp: , Rfl: ondansetron (Zofran) 4 MG tablet, Take 4 mg by mouth every 8 (eight) hours if needed, Disp: , Rfl: Oyster Shell Calcium 500 MG tablet, 2 (two) times a day, Disp: , Rfl: potassium chloride ER (Micro-K) 10 MEQ ER capsule, Take 40 mEq by mouth Daily, Disp: , Rfl: pregabalin (Lyrica) 25 MG capsule, Take 1 capsule (25 mg) by mouth in the morning and 1 capsule (25 mg) before bedtime., Disp: 60 capsule, Rfl: 1 rivaroxaban (Xarelto) 20 MG tablet, Take 1 tablet (20 mg) by mouth in the evening. Take with meals Take with food., Disp: 90 tablet, Rfl: 1 rOPINIRole (Requip) 0.5 MG tablet, Take 0.5 mg by mouth at bedtime, Disp: , Rfl: senna-docusate sodium (Senokot-S) 8.6-50 MG tablet, Take 1 tablet by mouth Daily, Disp: , Rfl: amLODIPine (Norvasc) 5 MG tablet, Take 5 mg by mouth in the morning., Disp: , Rfl: Insulin Syringe 31G X 5/16 0.3 ML mis, Inject 1 each under the skin in the morning and 1 each in the evening and 1 each before bedtime., Disp: 300 each, Rfl: 3 venlafaxine XR (Effexor XR) 37.5 MG 24 hr capsule, Take 37.5 mg by mouth in the morning. Take with meals., Disp: , Rfl: Current Facility-Administered Medications: FreeStyle Shaina 2 Sensor misc 1 each, 1 each, Does not apply, Daily, Mily Andrade, SUPERINTENDENT MAINTENANCE Allergies Penicillins Past Surgical History Past Surgical History: Procedure Laterality Date ADENOIDECTOMY [...] neck mass (05/15) TONSILLECTOMY TOTAL ABDOMINAL HYSTERECTOMY Family History Family History Problem Relation Name Age of Onset Lung cancer Father Objective Physical Exam Constitutional: General: She is not in acute distress. Comments: Presents to clinic in a wheelchair. She is able to transfer to the treatment chair. Accompanied by her daughter. HENT: Head: Normocephalic and atraumatic. Cardiovascular: Comments: DP, PT pulses nonpalpable on the left side. Plus two pitting edema left lower extremity. Pulmonary: Effort: Pulmonary effort is normal. No respiratory distress. Musculoskeletal: Cervical back: Neck supple. Comments: Right foot: Muscle strength 5/5 for all quadrants. Left foot: Muscle strength 4/5 for all quadrants. No tenderness to palpation. Skin: Capillary Refill: Capillary refill takes less than 2 seconds. Comments: 2 toenails exhibit clinical mycosis with thickened appearance, yellow discoloration, crumbly texture and subungual debris. Tenderness to palpation: Hallux toenails bilaterally. All 10 toenails are elongated. Neurological: Mental Status: She is alert. Comments: Loss of protective sensation, left forefoot. Psychiatric: Mood and Affect: Mood normal. Behavior: Behavior normal. 11/17/2023: 3 radiographs are nonweightbearing. No osseous abnormalities. 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 Diffuse osteopenia. Extensive soft tissue swelling. 11/17/2023: Venous duplex ultrasound reveals no evidence of DVT. There was a prominent lymph node in the left groin which appeared benign per the ultrasound read. Assessment/Plan ICD-10-CM 1. Lymph node enlargement R59.9 2. Foot swelling M79.89 Ambulatory referral to Podiatry 3. Onychodystrophy L60.3 4. Onychomycosis B35.1 5. Weakness due to acute cerebrovascular accident (CVA) ([facility]) I63.9 R53.1 6. Pain in both feet M79.671 M79.672 Patient examined and evaluated. I personally reviewed her radiographs and her venous duplex study from October of this year. Discussed likely multifactorial issue with the swelling in the left lower extremity. I suspect that some of it is due to the atrophy from her cerebrovascular accident. I believe that a lot of this caused some atrophy that reduce her muscle pump function which cause some swelling in the lower extremity. Her ultrasound did suggest a lymph node that was enlarged and this could be causing some of the edema in the left lower extremity as well. I recommend following up with this with her primary care physician to discuss if further workup is indicated at this time. I do not see any concerning signs or symptoms in her feet that would be contributing to the edema. I do recommend that she continue to work with therapy to work on her strength which would help with some of the muscle function which would improve some of her edema. Additionally I recommend that she consider massage therapy for mobilization of the fluid and compression socks on a daily basis to reduce fluid buildup in the lower extremity. Elevate as much as possible. Follow up with me as needed. At the end of our visit patient noted concern about her elongated, thickened, painful toenails. Ten toenails were debrided by me in length and thickness utilizing a nail Nipper and electric bur shear grinder operator without incident. Patient noted relief of symptoms after debridement. Discussed proper pedal hygiene. Follow up as needed. This note was created with the assistance of a speech recognition program. While intending to generate a timely document that accurately reflects the content of the visit, no guarantee can be provided that every grammatical or spelling mistake has been or will be identified or corrected. Thank you for your understanding. Sonu Bruner DPM documented in this encounter [facility] 12-04-2023 Telephone encounter Note Pt's daughter called requesting the shaina system be sent to the [facility] in [place]. This is who the assisted living facility works with. [facility] 12-04-2023 Miscellaneous Notes Pt's daughter called requesting the shaina system be sent to the [facility] in [place]. This is who the assisted living facility works with. documented in this encounter [facility] 12-04-2023 History of Present illness Narrative Associated Problem(s): Type 1 diabetes mellitus with other circulatory complications ([facility]) During the appointment today all pertinent labs, imaging, health maintenance, and glucose readings were reviewed. Encouraged to check blood glucose throughout the day with some fasting and some PP readings. They are to bring their glucose meter/cgm in to all appointments. All of the patients questions, treatment options, and current care plan and goals were discussed. A copy of this along with pertinent instructions were given to the patient at the end of the appointment. The patient voices understanding of all of this and is to call in between appointments if they have any problems or questions. Lucila Tineo is struggling to gain control of their diabetes. I am very concerned for diabetes related complications. , Discussed dietary changes at length. Encouraged to limit simple carbs and focus more on healthy protein/fat with all meals and snacks. They should also avoid any sugary drinks. , Instructed on the importance of taking insulin before eating. If it has been more than 30-45 min since eating they should not give the meal dose but should just give a correction insulin dose. , Instructions given today include: Hypoglycemia management, Insulin instructions, and Dietary education. She has type 1 diabetes and needs insulin for her meals regardless of what her bg are. Will restart prandial insulin and loosen the correction scale to help smooth out her readings. Encouraged to only have protein for her snack between meals and to avoid sugary drinks. Will work on getting her a shaina 3 cgm. Will stop jardiance as it is not approved for pts with type 1 diabetes and I do have concerns with her side effects of yeast infections/UTI's and increased risk for DKA. Images from the original note were not included. Lucila Tineo is a 73 y.o. female presents with chief complaint of Diabetes HPI: Diabetes Mellitus Follow-up: Lucila Tineo is here for follow-up evaluation of diabetes mellitus. The initial diagnosis of diabetes was made in 2008 Diabetes complications: cardiovascular disease and cerebrovascular disease Previously tried medications include: metformin- diarrhea She has been checking her blood glucose with a 3-4 times a day Last A1c: 8.7 on 11/17/2023 Last eye exam: 12/26/2022 Current concerns include: Last office visit was 03/13/2022 A1c was 8.3 States bg levels are improving a little the past month. She is living at [facility] since November 14. Was in [facility] and had a stroke making it difficult for her to care for herself. She is getting meals at [facility] and they are giving her all of her medications. Is in the assisted living part of the facility. Jardiance was started couple months ago. She has had couple UTI and yeast infections. Has swelling in her left leg. PCP did an xray- soft tissue swelling. Advised to see horticultural specialty grower. Diet: meals are provided for her. Drinks: unsweetened ice tea, diet pop Exercise: walking Hypoglycemia: on occasion in the morning Interested in the Freestyle shaina CGM Breakfast: cereal Lunch/Dinner; turkey wrap, PB and jelly sandwich, noodles, vegetables Snacks: trail mix, sugar free jello, popcorn Has only been getting humalog with a SSI and not for her meals. 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 ([facility]) Essential hypertension ([facility]) Bilateral carotid artery stenosis Cigarette nicotine dependence without complication COPD (chronic obstructive pulmonary disease) ([facility]) Degeneration of lumbar intervertebral disc Descending aortic aneurysm ([facility]) Type 1 diabetes mellitus with other circulatory complications ([facility]) History of non-ST elevation myocardial infarction (NSTEMI) ([facility]) History of stroke Hyperlipidemia ([facility]) Hypothyroid ([facility]) Intermittent claudication ([facility]) Lumbar radiculopathy, chronic Middle cerebral artery aneurysm Non-ST elevation (NSTEMI) myocardial infarction ([facility]) PAD (peripheral artery disease) ([facility]) Other chronic pain Paroxysmal atrial fibrillation ([facility]) Thoracic aortic aneurysm without rupture ([facility]) Type 1 diabetes mellitus with hyperglycemia ([facility]) ([facility]) Type 1 diabetes mellitus with hypoglycemia and without coma ([facility]) Social History Tobacco Use Smoking status: Former Types: Cigarettes Start date: 03/02/1989 Smokeless tobacco: Never Substance Use Topics Alcohol use: Never Comment: caffeine: 2-3 cups per day Drug use: Never Allergies Allergen Reactions Penicillins Hives Other Reaction(s): Hives Synopsis [facility] 12/04/2023 11/17/2023 11/14/2023 00:00 Antidiabetic medications Empagliflozin 10 mg Daily PO (10 MG TABS)-Discontinued 10 mg Daily PO (10 MG TABS) 10 mg Daily PO (10 MG TABS) Insulin Aspart INJECT 1U:5GM CARBS BREAKFAST AND LUNCH; 1U:15GM CARBS DINNER PLUS CORRECTION 1U:100 OVER 250. MAX 40 UNITS/DAY (100 UNIT/ML SOLN)-Discontinued INJECT 1U:5GM CARBS BREAKFAST AND LUNCH; 1U:15GM CARBS DINNER PLUS CORRECTION 1U:100 OVER 250. MAX 40 UNITS/DAY (100 UNIT/ML SOLN) INJECT 1U:5GM CARBS BREAKFAST AND LUNCH; 1U:15GM CARBS DINNER PLUS CORRECTION 1U:100 OVER 250. MAX 40 UNITS/DAY (100 UNIT/ML SOLN) No sig Insulin Degludec 1 (one) time each day at the same time. (100 UNIT/ML SOPN)-Discontinued (Therapy comp) 1 (one) time each day at the same time. (100 UNIT/ML SOPN) No sig Insulin Glargine 15 am 10 pm (100 UNIT/ML SOLN)-Discontinued (Dose adjustm) Inject 10 Units under the skin in the morning. Inject 10 Units under the skin in the morning. No sig Insulin Glargine Injection subcutaneous 15 in the am and 10 units at night (100 UNIT/ML SOLN) Insulin Lispro 2:50> 150mg d/l (100 UNIT/ML SOLN)-Discontinued Inject 8 Units under the skin in the morning and 8 Units at noon and 8 Units in the evening. Inject with meals. Inject 8 Units under the skin in the morning and 8 Units at noon and 8 Units in the evening. Inject with meals. No sig Insulin Lispro Injection subcutaneous 4 units breakfast, 6 units lunch/dinner plus correction 1:75 > 150 mg/dl (max daily 50 units) (100 unit/ml SOLN) Labs MHPT A1C 8.7 Outpatient prescription Medication marked as long-term Patient-reported medication REVIEW OF SYMPTOMS: Review of Systems Constitutional: Positive for fatigue. Negative for appetite change and unexpected weight change. Eyes: Positive for visual disturbance. Respiratory: Negative for cough, shortness of breath and wheezing. Cardiovascular: Negative for chest pain, palpitations and leg swelling. Neurological: Positive for numbness. Endocrine: Negative for polydipsia, polyphagia and polyuria. OBJECTIVE: 12/04/2023 10:54 AM 11/17/2023 3:01 PM 04/21/2023 3:18 PM Vitals BMI 24.55 kg/m2 24.55 kg/m2 22.9 kg/m2 Systolic 136 134 Diastolic 80 84 Heart Rate 85 88 Temp 98.7 F 97.5 F Height (in) 5' 4 Weight (lb) 143 143 133.4 Visit Report Report Report Report Physical Exam Constitutional: General: She is not in acute distress. Appearance: Normal appearance. Cardiovascular: Rate and Rhythm: Normal rate and regular rhythm. Heart sounds: Murmur heard. No friction rub. No gallop. Pulmonary: Breath sounds: Normal breath sounds. No wheezing, rhonchi or rales. Musculoskeletal: General: No swelling. Neurological: Mental Status: She is alert. ASSESSMENT AND PLAN: Problem List Items Addressed This Visit 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) - Primary During the appointment today all pertinent labs, imaging, health maintenance, and glucose readings were reviewed. Encouraged to check blood glucose throughout the day with some fasting and some PP readings. They are to bring their glucose meter/cgm in to all appointments. All of the patients questions, treatment options, and current care plan and goals were discussed. A copy of this along with pertinent instructions were given to the patient at the end of the appointment. The patient voices understanding of all of this and is to call in between appointments if they have any problems or questions. Lucila Tineo is struggling to gain control of their diabetes. I am very concerned for diabetes related complications. , Discussed dietary changes at length. Encouraged to limit simple carbs and focus more on healthy protein/fat with all meals and snacks. They should also avoid any sugary drinks. , Instructed on the importance of taking insulin before eating. If it has been more than 30-45 min since eating they should not give the meal dose but should just give a correction insulin dose. , Instructions given today include: Hypoglycemia management, Insulin instructions, and Dietary education. She has type 1 diabetes and needs insulin for her meals regardless of what her bg are. Will restart prandial insulin and loosen the correction scale to help smooth out her readings. Encouraged to only have protein for her snack between meals and to avoid sugary drinks. Will work on getting her a shaina 3 cgm. Will stop jardiance as it is not approved for pts with type 1 diabetes and I do have concerns with her side effects of yeast infections/UTI's and increased risk for DKA. Relevant Medications insulin lispro (HumaLOG) 100 unit/ml injection Type 1 diabetes mellitus with hyperglycemia (HCC) (CMS/HCC) Type 1 diabetes mellitus with hypoglycemia and without coma (CMS/[facility]) Follow up in about 3 months (around 03/05/2024) for Recheck. Patient's Medications New Prescriptions INSULIN LISPRO (HUMALOG) 100 UNIT/ML INJECTION Injection subcutaneous 4 units breakfast, 6 units lunch/dinner plus correction 1:75 > 150 mg/dl (max daily 50 units) Previous Medications ACETAMINOPHEN (TYLENOL) 325 MG TABLET AMLODIPINE (NORVASC) 5 MG TABLET Take 5 mg by mouth in the morning. ANTI-DIARRHEAL 2 MG TABLET ASPIRIN 81 MG CHEWABLE TABLET Chew Daily ATORVASTATIN (LIPITOR) 40 MG TABLET 1 (one) time each day at the same time. CONTINUOUS GLUCOSE IRRIGATION SERVICE TECHNICIAN (FREESTYLE SHAINA 2 READER) DEVICE 1 each every 14 (fourteen) days D3-1000 25 MCG (1000 UT) CAPSULE INSULIN SYRINGE 31G X 5/16 0.3 ML MISC Inject 1 each under the skin in the morning and 1 each in the evening and 1 each before bedtime. LEVOTHYROXINE (SYNTHROID) 150 MCG TABLET Take by mouth Daily before meals ONDANSETRON (ZOFRAN) 4 MG TABLET Take 4 mg by mouth every 8 (eight) hours if needed OYSTER SHELL CALCIUM 500 MG TABLET 2 (two) times a day POTASSIUM CHLORIDE ER (MICRO-K) 10 MEQ ER CAPSULE Take 40 mEq by mouth Daily PREGABALIN (LYRICA) 25 MG CAPSULE Take 1 capsule (25 mg) by mouth in the morning and 1 capsule (25 mg) before bedtime. RIVAROXABAN (XARELTO) 20 MG TABLET Take 1 tablet (20 mg) by mouth in the evening. Take with meals Take with food. ROPINIROLE (REQUIP) 0.5 MG TABLET Take 0.5 mg by mouth at bedtime SENNA-DOCUSATE SODIUM (SENOKOT-S) 8.6-50 MG TABLET Take 1 tablet by mouth Daily VENLAFAXINE XR (EFFEXOR XR) 37.5 MG 24 HR CAPSULE Take 37.5 mg by mouth in the morning. Take with meals. Modified Medications Modified Medication Previous Medication INSULIN GLARGINE (LANTUS) 100 UNIT/ML INJECTION insulin glargine (Lantus) 100 UNIT/ML injection Injection subcutaneous 15 in the am and 10 units at night 15 am 10 pm Discontinued Medications INSULIN ASPART (NOVOLOG) 100 UNIT/ML INJECTION INJECT 1U:5GM CARBS BREAKFAST AND LUNCH; 1U:15GM CARBS DINNER PLUS CORRECTION 1U:100 OVER 250. MAX 40 UNITS/DAY INSULIN LISPRO 100 UNIT/ML SOLUTION 2:50> 150mg d/l JARDIANCE 10 MG Take 10 mg by mouth Daily LOSARTAN (COZAAR) 50 MG TABLET Take one tablets daily by mouth, 90 tablets with no refills POLYETHYLENE GLYCOL, PEG, 3350 (MIRALAX) 17 GM/SCOOP POWDER Take 17 g by mouth every other day if needed (constipation) I have reviewed and reconciled the history and medication list with the patient today. documented in this encounter [facility] 12-02-2023 History of Present illness Narrative Prescription sent documented in this encounter [facility] 12-02-2023 Telephone encounter Note Returned call to office, notified that this office did not start the eliquis. It was a historical medication when she first came to the office. Verbalized understanding [facility] 12-02-2023 Miscellaneous Notes Returned call to office, notified that this office did not start the eliquis. It was a historical medication when she first came to the office. Verbalized understanding CV PHONE Name of caller : Dr. Foote PCP Relationship to patient : Caregiver If not self Will need patient permission to release results or disclose health information with called documented in . Patient identified by Name and Date of . ( Lucila Tineo, 1950). Yes Number to return call [phone] Reason for Call: Medication Question: Chyna from Dr. Foote's office would like to know if patient can change to xarelto, because her insurance will not cover the eliquis. They are asking if you originally started patient on eliquis, this is why the question is raised. Please call back Chyan at the above number. Thank you calling [facility]. You will receive a return call within 48 hours ( or 2 business days if close to the weekend). If you feel that this is an urgent issue and needs immediate attention, it is recommended that you contact your primary care provider office or proceed to your nearest Urgent Care Center of Emergency Room ED for evaluation/treatment. documented in this encounter [facility] 12-02-2023 Telephone encounter Note CV PHONE Name of caller : Dr. Foote PCP Relationship to patient : Caregiver If not self Will need patient permission to release results or disclose health information with called documented in fyi. Patient identified by Name and Date of . ( Lucila Tineo, 1950). Yes Number to return call [phone] Reason for Call: Medication Question: Chyna from Dr. Foote's office would like to know if patient can change to xarelto, because her insurance will not cover the eliquis. They are asking if you originally started patient on eliquis, this is why the question is raised. Please call back Chyna at the above number. Thank you calling [facility]. You will receive a return call within 48 hours ( or 2 business days if close to the weekend). If you feel that this is an urgent issue and needs immediate attention, it is recommended that you contact your primary care provider office or proceed to your nearest Urgent Care Center of Emergency Room ED for evaluation/treatment. [facility] Work Phone: 11-17-2023 History of Present illness Narrative Images from the original note [...] daily with meals Insulin Syringe 31G X 07/15 0.3 ML misc 1 each, Subcutaneous, 3 [...] History: Diagnosis Date AAA (abdominal aortic aneurysm) ([facility]) Arthritis Basal cell carcinoma Bilateral biceps tendonitis Carpal tunnel syndrome Cataract Coronary artery disease ([facility]) COVID-19 Diabetes mellitus ([facility]) Disease of thyroid gland ([facility]) DM (diabetes mellitus) ([facility]) Epidermal cyst of neck Hypercholesteremia ([facility]/HCC) Hyperlipidemia ([facility]) Hypertension ([facility]) Hypothyroidism ([facility]/HCC) Left knee pain director long term care (current) use of insulin ([facility]CC) Neck mass PAD (peripheral artery disease) ([facility]/H[facility]) Personal history of other malignant neoplasm of skin Right ankle pain Shingles Shoulder pain Skin cyst Stroke ([facility]CC) 09/2022 Tobacco dependence Type 2 diabetes mellitus without complications ([facility]) Venous insufficiency of leg Social History Tobacco [...] fibrillation (CMS/HCC) -stable documented in this encounter [facility] 11-17-2023 Miscellaneous Notes See other note documented in this encounter [facility] 11-17-2023 Progress note Formatting of t his note might be different from the original. See other note [facility] 07-16-2023 Telephone encounter Note Rec'd lab report from [employer] imported into [employer]. [facility] Work Phone: 07-16-2023 Miscellaneous Notes Rec'd lab report from [employer] imported into [employer]. documented in this encounter [facility] 07-14-2023 Telephone encounter Note Images from the original note were not included. Rec'd patient PT/INR results imported into [employer]. [facility] Work Phone: 07-14-2023 Miscellaneous Notes Images from the original note were not included. Rec'd patient PT/INR results imported into [employer]. documented in this encounter [facility] 07-07-2023 Note HNO ID: [id number] Author: JAH SHARPE MD Service: ? Author Type: Physician Type: Progress Notes Filed: 07/07/2023 17:09 Note Text: [facility] Established Outpatient Visit Lucila Tineo CC#: [id number] Date of Service: 07/07/2023 Primary Care Provider: Mily Andrade, CHELITA [address] [place] [address] FOLLOW UP VISIT Chief complaint: Follow up for incidental unruptured brain aneurysm History of present illness: Ms. Veloz is a 73-year-old female with vascular risk factors, who presents for follow-up evaluation of an incidentally discovered unruptured brain aneurysm. The patient was residing in [place], and was found down on October 29, [...] stroke work-up. The patient then returned to [place], and she is still at a nursing [...] infusion, injection o (more content not included)... [facility] 07-07-2023 History of Present illness Narrative [facility] Established Outpatient Visit Lucila Tineo [facility]#: [id number] Date of Service: 07/07/2023 Primary Care Provider: Mily Andrade, TRIAGE TECHNICIAN [address] [place] [address] FOLLOW UP VISIT Chief complaint: Follow up for incidental unruptured brain aneurysm History of present illness: Ms. Veloz is a 73-year-old female with vascular risk factors, who presents for follow-up evaluation of an incidentally discovered unruptured brain aneurysm. The patient was residing in [place], and was found down on October 29, [...] stroke work-up. The patient then returned to [place], and she is still at a nursing [...] REVIEW, right posterior MCA territory and left ROTARY DRIER FEEDER territory encephalomalacia representing prior stroke. Stable overall [...] Scales Ischemic or TIA: Ischemic Stroke Modified Ballard Score: Score: 4 NIH Stroke Scale: LOC: [...] July 07, 2023 documented in this encounter [facility] 07-07-2023 History of Present illness Narrative Radiology Service Progress Note DATE [...] PATIENT PRESENTS WITH AN IMPLANTABLE OR ATTACHED SENIOR NATIONAL ACCOUNT MANAGER: No RADIOLOGY DEPARTMENT: CT; Exam(s) Completed: Brain and CTA Brain PERIPHERAL IV DATA: Site assessment: Clean,Dry and Intact, Site disposition Discontinued SIGNED BY: RT Cande(R) July 07, 2023 9:37 AM documented in this encounter [facility] 07-07-2023 Note HNO ID: [id number] Author: JOSE A FLORES RN Service: Radiology [...] DATE: July 07, 2023 TIME: 9:24 AM [facility] 07-07-2023 Note HNO ID: [id number] Author: BILLY BOATENG RT(Jett) Service: Radiology Author [...] PATIENT PRESENTS WITH AN IMPLANTABLE OR ATTACHED SENIOR NATIONAL ACCOUNT MANAGER: No RADIOLOGY DEPARTMENT: CT; Exam(s) Completed: Brain and CTA Brain PERIPHERAL IV DATA: Site assessment: Clean,Dry and Intact, Site disposition Discontinued SIGNED BY: RT Cande(Jett) July 07, 2023 9:37 AM [facility] 04-29-2023 Miscellaneous Notes Apt ok per RA PT daughter (Alex) would rather not schedule a PFT at this time for her mother documented in this encounter [facility] 04-29-2023 Telephone encounter Note Apt ok per RA PT daughter (Alex) would rather not schedule a PFT at this time for her mother [facility] 03-25-2023 Note HNO ID: [id number] Author: KRISTI MARTINEZ RT(Jett) Service: Radiology Author Type: Technologist Type: [...] RT Mahesh(Jett) March 25, 2023 12:47 PM [facility] 03-25-2023 Note HNO ID: [id number] Author: BRO HAWK MD Service: ? Author Type: Physician Type: Progress Notes Filed: 03/25/2023 11:09 Note Text: [facility] DEPARTMENT OF VASCULAR SURGERY OUTPATIENT VISIT DATE [...] stable taaa. N (more content not included)... [facility] 03-25-2023 Note HNO ID: [id number] Author: SEPIDEH TOVAR RN Service: Nursing Author [...] DATE: March 25, 2023 TIME: 9:59 AM [facility] 03-25-2023 Note HNO ID: [id number] Author: FRANK COLEMAN RT(R) Service: Radiology Author [...] RT Monica(R) March 25, 2023 10:19 AM [facility] 03-06-2023 History of Present illness Narrative Lucila Stan Tineo Date of visit: 03/06/2023 Date of : 1950 Age: 73 y.o. Patient Active Problem List Diagnosis Bilateral carotid artery stenosis Thoracic aortic aneurysm without rupture ([facility]) PAD (peripheral artery disease) ([facility]) Claudication ([facility]) Lumbar radiculopathy, chronic Fall, initial encounter 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 ([facility]) Uncontrolled type 2 diabetes mellitus with hyperglycemia ([facility]) HLD (hyperlipidemia) History of stroke COPD (chronic obstructive pulmonary disease) ([facility]) ASCVD (arteriosclerotic cardiovascular disease) High anion gap metabolic acidosis Left middle cerebral artery aneurysm JEYSON (acute kidney injury) ([facility]) Elevated troponin Essential hypertension Fecal impaction ([facility]) Stercoral colitis Paroxysmal atrial fibrillation ([facility]) Allergies Allergen Reactions Penicillins [...] that were known and followed conservatively by [facility]. She has been started on Eliquis. [...] aneurysm that is followed by vascular in [place]. She has not been back to [place] in some time. A repeat CTA of the abdomen and pelvis that was not a dedicated CTA study was done here in [place] and reported 4.9 cm aneurysm. I do not see the last assessment in [place] but there is a reading from 2020 42 mm. I am not sure whether getting the measurement of 4.9 cm on the study here. There is a lot of artifact and I see measurements that may be 44-45 mm but not clearly 49. Past Medical History: Diagnosis Date JEYSON (acute kidney injury) ([facility]) 01/16/2023 Cancer ([facility]) Chronic pain disorder Descending aortic aneurysm ([facility]) Diabetes mellitus type 2, controlled ([facility]) Emphysema of lung ([facility]) Former smoker Hypertension Low back pain NSTEMI, initial episode of care ([facility]) PAD (peripheral artery disease) ([facility]) 11/19/2020 Skin cancer Spinal stenosis of lumbar region with neurogenic claudication Stroke ([facility]) Uncontrolled type 2 diabetes mellitus with hyperglycemia ([facility]) 01/08/2021 No data recorded No data recorded No data recorded Past Surgical History: Procedure Laterality Date APPENDECTOMY CARPAL TUNNEL RELEASE CYST REMOVAL HYSTERECTOMY INJECTION BLOCK EPIDURAL CAUDAL STEROID N/A 05/09/2022 Performed by Bruce Mcgregor MD at [facility] SKIN CANCER EXCISION TONSILLECTOMY Family [...] with M2 vessel cut off, diagnosed in [place], [place] 2. Primary hypertension 3. Hyperlipidemia 4. Type 2 diabetes , DKA 5. Elevation. Non-STEMI 2020 with catheterization revealing thrombotic/chronic occlusion of the RCA with attempted stent at the time. 5. ASCVD with NSTEMI 2020; LHC 2020 with thrombotic/chronic occlusion of the RCA and attempted stent 7. Aneurysmal dilatation of descending thoracic aorta measuring up to 4.9 cm in width by vascular in [place], unclear if 4.9 cm as an accurate measurement and was not as enlarged on prior study in [place]. 9. Ascending aortic enlargement/aneurysm 10. Unruptured middle cerebral artery aneurysm, follows with Dr Emily JUNE 11. Tobacco abuse until 09/2022 12. 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 I am not certain that the descending thoracic aorta is truly 4.9 cm but if this is the case, this is a rapid progression compared to previous and likely merits intervention at this point. I think she will likely need a dedicated study. I think [place] will prefer that they get a CTA there for planning. I only see the aorta closer to 4.5 cm I would nonetheless want her to make sure she meet with vascular. TODAYS ORDERS No orders of the defined types were placed in this encounter. FOLLOW UP Return in about 4 months (around 07/05/2023). PCP: MARILYN HEARD Referring Physician: MARILYN Heard [id number], [address] [address] documented in this encounter [facility] 03-05-2023 Miscellaneous Notes Left message for patient to remind them to bring their most current medication list with them to their appointment. documented in this encounter [facility] 03-05-2023 Telephone encounter Note Left message for patient to remind them to bring their most current medication list with them to their appointment. [facility] 01-02-2023 Miscellaneous Notes Voice mail left for daughter to discuss plan of care for follow up of cerebral aneurysm as discussed with Dr Sharpe at appointment. Imaging in 6 months versus cerebral angiogram. Requested daughter to either call this office or send a My Chart message with preference documented in this encounter [facility] 12-16-2022 History of Present illness Narrative [facility] Virtual Visit Lucila Tineo [facility]#: [id number] Date of Service: 12/16/2022 Primary Care Provider: Mily Andrade, TRIAGE TECHNICIAN [address] [facility] [address] The patient was referred by Osei Roe [...] brain aneurysm. The patient was residing in [place], and was found down on October 29, [...] stroke work-up. The patient then returned to [place], and she is still at a nursing [...] Disease w/o Stroke Event: Unruptured Aneurysm Modified Ballard Score: Score: 4 NIH Stroke Scale: LOC: [...] SIGNATURE Jah Sharpe MD December 16, 2022 OSEI MOTA [address] [place] [address] Mily Andrade [address] [place] [address] documented in this encounter [facility] 12-08-2022 Miscellaneous Notes Images from the original note were not included. OSH imaging/records received from [facility]: December 08, 2022 -12.02.22 Dr. Roe Progress Notes scanned to chart. -Medical Hx & Imaging Reports available in Care Everywhere. Received confirmation email from [facility] that imaging hs been uploaded--per dropping off disc to imaging library to upload as I wasn't able to + kept getting error per below. Images from the original note were not included. OSH imaging/records received from [facility]: December 04, 2022 -12.02.22 Dr. Roe Progress Notes scanned to chart. PENDING: -2022 Imaging -Medical Hx & Imaging Reports Walked discs over to imaging library + gave to Adry to upload MAGDALENE. Successfully sent [employer] & [employer] overnight label via [employer]~ Tracking#[id number] December 05, 2022 10:30 AM 07 [employer] Priority Overnight $14.14 From: Theresa mabry Last change on 12/04/2022 12:16:46 pm Sent on 12/04/2022 12:16:33 pm Completed ENDOVASCULAR INTAKE Patient name: Lucila Tineo Confirm Diagnosis/RFV (Reason for Visit): Aneurysm Is this a self-referral? no, who is the referring provider : Osei Roe [facility] in [place], [place]/His direct office number if any questions: [phone] Is this a direct referral? yes neurosurgeon Have you been recommended for surgery or procedure? Yes. coiling Are you seeking a second opinion? Yes. Do you have a MRI/MRA/CT/Ultrasound for this diagnosis? Yes. Type of imaging CT's, name/address of facility where completed [facility]. [Only has reports in folder, no images] [...] if any questions. documented in this encounter [facility] Evaluation note Diagnosis Unruptured cerebral aneurysm- Primary Cerebral aneurysm, nonruptured Ischemic stroke (HCC) Hypertension, unspecified type Hyperlipidemia, unspecified hyperlipidemia type Smoking Tobacco use disorder [facility] Diagnosis Essential hypertension- Primary Unspecified essential hypertension Paroxysmal atrial fibrillation (CMS-HCC) Atrial fibrillation documented [facility] Diagnosis Calcified granuloma of lung (CMS-HCC)- Primary documented in this encounter [facility]* Diagnosis Unruptured cerebral aneurysm- Primary Cerebral aneurysm, nonruptured Hypertension, unspecified type Hyperlipidemia, unspecified hyperlipidemia type Atrial fibrillation, unspecified type (HCC) Ischemic stroke (HCC) [facility] Diagnosis Nonruptured cerebral aneurysm Cerebral aneurysm, nonruptured [facility] Diagnosis Unruptured cerebral aneurysm- Primary Cerebral aneurysm, nonruptured Encounter for monitoring antiplatelet therapy Encounter for therapeutic drug monitoring [facility] Diagnosis Burning with urination- Primary Dysuria [...] of left foot [facility] Diagnosis Paroxysmal atrial fibrillation (CMS/HCC)- Primary Atrial fibrillation documented in this encounter [facility]* Diagnosis Nonruptured cerebral aneurysm- Primary Cerebral aneurysm, nonruptured [facility] Diagnosis 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 Type 1 diabetes mellitus with hyperglycemia (HCC) (CMS/HCC) Type 1 diabetes mellitus with hypoglycemia and without coma (CMS/HCC) documented in this encounter [facility]* Diagnosis Lymph node enlargement- Primary Enlargement of lymph nodes Foot swelling Swelling of limb Onychodystrophy Other specified disease of nail Onychomycosis Dermatophytosis of nail Weakness due to acute cerebrovascular accident (CVA) (CMS/HCC) Pain in both feet documented in this encounter [facility]* Diagnosis 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) documented in this encounter [facility]* Diagnosis 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 She denies medication side effects. [facility] 250 DO Work Phone: InstructionsNot on filedocumented in this encounter [facility] filedocumented in this encounter [facility]ructionsNot on filedocumented in this encounter [facility] for [facility] (narrative)* Consultation (Urgent) - Authorized Specialty Diagnoses / Procedures Referred By Contac t Referred To Contact Family Medicine Diagnoses 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 (CMS/HCC) Procedures [place] OFFICE/OUTPATIENT [facility] 60 MINUTES Mily Andrade NP [address] [place] [address] Chyna Luna, [address] [address] Referral ID Status Reason Start Date Expiration Date Visits Requested Visits Authorized [id number] Authorized Specialty Services Required 11/17/2023 05/15/2024 1 [...] FoundDocuments on File Type Date Recorded 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 [facility]illance [facility] due to minimally elevated troponin. [...] IVCON CT ANGIOGRAPHY HEAD W/CONTRAST/NONCONTRAST Jeffery Gordon APRN.TRIAGE TECHNICIAN [address] [place] [address] [place] [address] Referral ID Status Reason Start Date Expiration Date V isits Requested Visits Authorized [id number] Closed Auto-Generate d Referral 04/08/2023 05/07/2024 1 1 Referral ID Status Reason Start Date Expiration Date Visits Requested Visits Authorized [id number] New Request Auto-Generat ed Referral 12/04/2023 01/02/2025 1 1 Additional Source Comments INFORMATION SOURCE (unrecogn ized section and content) DATE CREATED AUTHOR 08/20/2020 [facility] DATE CREATED AUTHOR AUTHOR'S ORGANIZ ATION 03/11/2021 [facility] DATE CREATED AUTHOR AUTHOR'S ORGANIZ ATION 12/11/2021 [facility] DATE CREATED AUTHOR AUTHOR'S ORGANIZ ATION 12/11/2021 [facility] DATE CREATED AUTHOR AUTHOR'S ORGANIZ ATION 04/26/2022 [facility] dical Specialist DATE CREATED AUTHOR AUTHOR'S ORGANIZ ATION 03/08/2023 [facility] DATE CREATED AUTHOR AUTHOR'S ORGANIZ ATION 06/27/2023 [facility] DATE CREATED AUTHOR AUTHOR'S ORGANIZ ATION 12/10/2023 [facility] dical Specialists EPIC DATE CREATED AUTHOR AUTHOR'S ORGANIZ ATION 12/20/2023 [facility] Source Comments (unrecognize d section and content) In the event this informatio n is protected by the Federal Confidentiality of Alcohol and Drug Abuse Patient Records regulations: The Federal rules restrict any use of the information to criminally investigate or prosecute any alcohol or drug abuse patient.[facility] the event this information is protected by the Federal Confidentiality of Alcohol and Drug Abuse Patient Records regulations: The Federal rules restrict any use of the information to criminally investigate or prosecute any alcohol or drug abuse patient.[facility] Hospital[facility] the event this information is protected by the Federal Confidentiality of Alcohol and Drug Abuse Patient Records regulations: The Federal rules restrict any use of the information to criminally investigate or prosecute any alcohol or drug abuse patient.[facility] HospitalIn the event this information is protected by the Federal Confidentiality of Alcohol and Drug Abuse Patient Records regulations: The Federal rules restrict any use of the information to criminally investigate or prosecute any alcohol or drug abuse patient.[facility] HospitalIn the event this information is protected by the Federal Confidentiality of Alcohol and Drug Abuse Patient Records regulations: The Federal rules restrict any use of the information to criminally investigate or prosecute any alcohol or drug abuse patient.[facility] HospitalIn the event this information is protected by the Federal Confidentiality of Alcohol and Drug Abuse Patient Records regulations: The Federal rules restrict any use of the information to criminally investigate or prosecute any alcohol or drug abuse patient.[facility] HospitalIn the event this information is protected by the Federal Confidentiality of Alcohol and Drug Abuse Patient Records regulations: The Federal rules restrict any use of the information to criminally investigate or prosecute any alcohol or drug abuse patient.[facility] HospitalIn the event this information is protected by the Federal Confidentiality of Alcohol and Drug Abuse Patient Records regulations: The Federal rules restrict any use of the information to criminally investigate or prosecute any alcohol or drug abuse patient.[facility] HospitalIn the event this information is protected by the Federal Confidentiality of Alcohol and Drug Abuse Patient Records regulations: The Federal rules restrict any use of the information to criminally investigate or prosecute any alcohol or drug abuse patient.[facility] the event this information is protected by the Federal Confidentiality of Alcohol and Drug Abuse Patient Records regulations: The Federal rules restrict any use of the information to criminally investigate or prosecute any alcohol or drug abuse patient.[facility] HospitalIn the event this information is protected by the Federal Confidentiality of Alcohol and Drug Abuse Patient Records regulations: The Federal rules restrict any use of the information to criminally investigate or prosecute any alcohol or drug abuse patient.[facility] HospitalIn the event this information is protected by the Federal Confidentiality of Alcohol and Drug Abuse Patient Records regulations: The Federal rules restrict any use of the information to criminally investigate or prosecute any alcohol or drug abuse patient.[facility] HospitalIn the event this information is protected by the Federal Confidentiality of Alcohol and Drug Abuse Patient Records regulations: The Federal rules restrict any use of the information to criminally investigate or prosecute any alcohol or drug abuse patient.[facility] HospitalIn the event this information is protected by the Federal Confidentiality of Alcohol and Drug Abuse Patient Records regulations: The Federal rules restrict any use of the information to criminally investigate or prosecute any alcohol or drug abuse patient.[facility] HospitalIn the event this information is protected by the Federal Confidentiality of Alcohol and Drug Abuse Patient Records regulations: The Federal rules restrict any use of the information to criminally investigate or prosecute any alcohol or drug abuse patient.[facility] HospitalIn the event this information is protected by the Federal Confidentiality of Alcohol and Drug Abuse Patient Records regulations: The Federal rules restrict any use of the information to criminally investigate or prosecute any alcohol or drug abuse patient.[facility] Reason for Visit (unrecogniz ed section and content) Reason Comments Future Appointment New Patient, [place], Any Reason Comments Unruptured Aneurysm Reason Comments Line Maintenance - Other Reason Comments Follow-up EST PT [...] IVCON CT ANGIOGRAPHY HEAD W/CONTRAST/NONCONTRAST Jeffery Gordon, SEAMLESS HOSIERY KNITTER.TRIAGE TECHNICIAN [address] [place] [address] [place] [address] Referral ID Status Reason Start Date Expiration Date V isits Requested Visits Authorized [id number] Closed Auto-Generate d Referral 04/08/2023 05/07/2024 1 1 Reason Comments Unruptured Aneurysm Diagnostic Cerebral Angiogram Reason Comments Results PT-INR Results Reason Comments Received Outside Medical Records Rec'd l ab report from [employer] imported into [employer]. Reason Comments Medication Question Reason Comments Diabetes UTI Reason Comments Unruptured Aneurysm Reason Comments Diabetes Specialty Diagnoses / Procedures Referred By Contac t Referred To Contact Family Medicine Diagnoses 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 ([facility]) Procedures [place] OFFICE/OUTPATIENT NEW HIGH MDM 60 MINUTES Mily Andrade, SUPERINTENDENT MAINTENANCE [address] [place] [address] Chyna Luna, DO [address] [facility] [address] [place] [address] Referral ID Status Reason Start Date Expiration Date V isits Requested Visits Authorized [id number] Closed Specialty Services Required 11/17/2023 05/15/2024 1 1 Reason Comments Foot Problem 73 yo OP presents to day with concerns of swelling in left foot, pt relates she had xrays done. Had xrays done with [facility], no fx, just soft tissue swelling. Stroke last September 2022. PCP: Bandar LV 12/04/23, A1C: 8.7, BS: 325 Specialty Diagnoses / Procedures Referred By Contac t Referred To Contact Podiatry Diagnoses Foot swelling Procedures [place] OFFICE/OUTPATIENT NEW HIGH MDM 60 MINUTES Mily Andrade NP [address] [place] [address] Sonu Bruner, DPM [address] [place] [address] Referral ID Status Reason Start Date Expiration Date V isits Requested Visits Authorized [id number] Closed Specialty Services Required 11/19/2023 05/17/2024 1 1 Care Teams (unrecognized sec tion and content) Implementation Services Analyst Relationship Specialty Start Date End Date Mily Andrade CNP [address] [place] [address] PCP - General Family Medicine 09/29/18 Osei Roe [address] [place] [address] Referring Neurology 12/04/22 Implementation Services Analyst Relationship Specialty Start Date End Date Mily Andrade CNP [address] [place] [address] PCP - General Family Medicine 09/29/18 Osei Roe [address] [place] [address] Referring Neurology 12/04/22 Implementation Services Analyst Relationship Specialty Start Date End Date Mily Andrade CNP [address] [facility] [place] [address] PCP - General Family Medicine 09/29/18 Osei Roe [address] [place] [address] Referring Neurology 12/04/22 Implementation Services Analyst Relationship Specialty Start Date End Date Mily Andrade CNP [address] [place] [address] PCP - General Family Medicine 09/29/18 RoeJenydarío [address] [place] [address] Referring Neurology 12/04/22 Implementation Services Analyst Relationship Specialty Start Date End Date Mily Andrade APRN-TRIAGE TECHNICIAN [address] [place] [address] PCP - General Internal Medicine 08/06/20 Implementation Services Analyst Relationship Specialty Start Date End Date Mily Andrade APRN-TRIAGE TECHNICIAN [address] [place] [address] PCP - General Internal Medicine 08/06/20 Implementation Services Analyst Relationship Specialty Start Date End Date Chyna Luna DO [address] [place] [address] PCP - [employer] 03/02/20 Corrie Coley MD [address] [place] [address] PCP - General Family Medicine 03/26/23 Implementation Services Analyst Relationship Specialty Start Date End Date Mily Andrade SEAMLESS HOSIERY KNITTER-TRIAGE TECHNICIAN [address] [place] [address] PCP - General Internal Medicine 08/06/20 Implementation Services Analyst Relationship Specialty Start Date End Date Mily Andrade SEAMLESS HOSIERY KNITTER-TRIAGE TECHNICIAN [address] [place] [address] PCP - General Internal Medicine 08/06/20 Implementation Services Analyst Relationship Specialty Start Date End Date Mily Adnrade CNP [address] [facility] [place] [address] PCP - General Family Medicine 09/29/18 Osei Roe MD [address] [facility] [address] [place] [address] Referring Neurology 12/04/22 Implementation Services Analyst Relationship Specialty Start Date End Date Mily Andrade CNP [address] [facility] [place] [address] PCP - General Family Medicine 09/29/18 Osei Roe MD [address] [facility] [address] [place] [address] Referring Neurology 12/04/22 Implementation Services Analyst Relationship Specialty Start Date End Date Mily Andrade CNP [address] [facility] [place] [address] PCP - General Family Medicine 09/29/18 Osei Roe MD [address] [facility] [address] [place] [address] Referring Neurology 12/04/22 Implementation Services Analyst Relationship Specialty Start Date End Date Mily Andrade CNP [address] [place] [address] PCP - General Family Medicine 09/29/18 Osei Roe MD [address] [facility] [address] [place] [address] Referring Neurology 12/04/22 Implementation Services Analyst Relationship Specialty Start Date End Date Mily Andrade CNP [address] [place] [facility] [place] [address] PCP - General Family Medicine 09/29/18 Osei Roe MD [address] [facility] [address] [place] [address] Referring Neurology 12/04/22 Implementation Services Analyst Relationship Specialty Start Date End Date Mily Andrade CNP [address] [place] [address] PCP - General Family Medicine 09/29/18 Osei Roe MD [address] [facility] [address] [place] [address] Referring Neurology 12/04/22 Implementation Services Analyst Relationship Specialty Start Date End Date Chyna Luna DO [address] [place] [address] PCP - [employer] 03/02/19 Corrie Coley MD [address] [place] [address] PCP - General Family Medicine 03/26/23 Implementation Services Analyst Relationship Specialty Start Date End Date Chyna Luna DO [address] [place] [address] PCP - [employer] 03/02/19 Corrie Coley MD [address] [place] [address] PCP - General Family Medicine 03/26/23 Chyna Richardson [facility] Multimedia Services Manager Family Medicine 11/27/23 Implementation Services Analyst Relationship Specialty Start Date End Date AndradeJoshuayCHELITA [address] [place] [address] PCP - General Family Medicine 09/29/18 Osei Roe MD [address] [place] [address] Referring Neurology 12/04/22 Implementation Services Analyst Relationship Specialty Start Date End Date Chyna Luna DO [address] [place] [address] PCP - [employer] 03/02/19 Corrie Coley MD [address] [place] [address] PCP - General Family Medicine 03/26/23 Chyna Richardson LSW Multimedia Services Manager Family Medicine 11/27/23 Implementation Services Analyst Relationship Specialty Start Date End Date Chyna Luna DO [address] [facility] [address] [place] [address] PCP - [employer] 03/02/19 Corrie Coley MD [address] [facility] [place] [address] PCP - General Family Medicine 03/26/23 Chyna Richardson LSW Multimedia Services Manager Family Medicine 11/27/23 Implementation Services Analyst Relationship Specialty Start Date End Date Chyna Luna DO [address] [place] [address] PCP - [employer] 03/02/19 Corrie Coley MD [address] [facility] [address] PCP - General Family Medicine 03/26/23 Chyna Richardson LSW Multimedia Services Manager Family Medicine 11/27/23 Implementation Services Analyst Relationship Specialty Start Date End Date Mily Andrade CNP [address] [facility] [place] [address] PCP - General Family Medicine 09/29/18 Osei Roe MD [address] [place] [address] Referring Neurology 12/04/22 Implementation Services Analyst Relationship Specialty Start Date End Date Chyna Luna DO [address] [place] [address] PCP - [employer] 03/02/19 Corrie Coley MD [address] [facility] [place] [address] PCP - General Family Medicine 03/26/23 Chyna Richardson LSW Multimedia Services Manager Family Medicine 11/27/23 Implementation Services Analyst Relationship Specialty Start Date End Date Chyna Luna DO [address] [place] [address] PCP - [employer] 03/02/19 Corrie Coley MD [address] [place] [address] PCP - General Family Medicine 03/26/23 Chyna Richardson LSW Multimedia Services Manager Family Medicine 11/27/23 Implementation Services Analyst Relationship Specialty Start Date End Date Chyna Luna, DO [address] [place] [address] PCP - [employer] 03/02/19 Corrie Coley MD [address] [place] [address] PCP - General Family Medicine 03/26/23 Chyna Richardson [facility] Multimedia Services Manager Family Medicine 11/27/23 Implementation Services Analyst Relationship Specialty Start Date End Date Chyna Luna DO [address] [place] [address] PCP - [employer] 03/02/19 Corrie Coley MD [address] [place] [address] PCP - General Family Medicine 03/26/23 Chyna Richardson LSW Multimedia Services Manager Family Medicine 11/27/23 Implementation Services Analyst Relationship Specialty Start Date End Date Chyna Luna DO [address] [place] [address] PCP - [employer] 03/02/19 Corrie Coley MD [address] [place] [address] PCP - General Family Medicine 03/26/23 Chyna Richardson LSW Multimedia Services Manager Family Medicine 11/27/23 FOR RECORDS PERTAINING TO [...] BASED ON THE PRIMARY CLINICAL RECORDS. [facility]. provides no warranty or guarantee of the accuracy or completeness of information in this document.
[2024-01-06 03:47] LABS: Glucometer 289 mg/dL (74-106)
== END 2024-01-06 04:46 | disposition home or self-care (01) ==
PROVIDERS: Emergency Provider Emergency Medicine; PCP Family Medicine
DX: E11.649 Type 2 diabetes mellitus with hypoglycemia without coma (principal)
CPT/HCPCS: 36415; 82948; 99283

== ENCOUNTER 2024-02-01 10:15 | Outpatient (OUT) | payer MEDICARE, MEDICAID, SELFPAY | END 2024-02-01 10:16 | disposition home or self-care (01) | LOC: PST 10:15 | PROVIDERS: PCP Family Medicine; Visit Provider Ophthalmology | DX: Z01.818 Encounter for other preprocedural examination (principal); H25.811 Combined forms of age-related cataract, right eye ==

== ENCOUNTER 2024-02-04 07:58 | Day surgery (SDC) | payer MEDICARE, MEDICAID, SELFPAY ==
--- NOTE | 2024-02-04 | HP_ITS ---
PREOPERATIVE HISTORY AND PHYSICAL ? Date:? 02/03/2024 ? HISTORY:? The patient is a 73-year-old white female with complaints of declining vision out of her right eye.? She states the onset of this has come on gradually over the last 2-3 years, but more progressing over the last seven months.? It has been constant in nature, affecting distance, mid and near ranges.? She has difficulty seeing the television and doing computer work.? She has difficulty in dim lighting and night time driving creates glare and halos. ? PAST OCULAR HISTORY:? Denies ? PAST MEDICAL HISTORY:? Venous insufficiency, type 2 diabetes, stroke, peripheral arterial disease, hypothyroidism, hypertension, hyperlipidemia, hypercholesterolemia, coronary artery disease, carpal tunnel syndrome, abdominal aortic aneurysm, hysterectomy, tonsillectomy, carpal tunnel release, appendectomy and adenoidectomy. ? SOCIAL HISTORY:? Denies tobacco, alcohol or recreational drug abuse. ? SYSTEMIC MEDICATIONS:? Include Senokot, ondansetron, levothyroxine, aspirin, atorvastatin, insulin, amlodipine, potassium chloride, Requip, meloxicam, Xarelto. ? ALLERGIES TO MEDICATIONS:? Penicillin. ? REVIEW OF SYSTEMS:? No pertinent positives. ? PHYSICAL EXAM: ? GENERAL:? In general, she is awake, alert and oriented x3, well developed, well nourished, in no acute distress.? ? HEART:? Regular rate and rhythm. ? LUNGS:? Clear bilaterally. ? ABDOMEN:? Soft, non-tender, non-distended. ? EXTREMITIES:? No pitting edema. ? OPHTHALMIC EXAM:? Revealed a visual acuity of 20/50 in the right and 20/100 in the left.? Pupils motility, muscle balance and confrontational visual thakkar within normal limits bilaterally.? Pressures are measured at 16 bilaterally.? Glare testing demonstrated 20/100 vision in the right, 20/400 vision in the left.? Slit lamp exam revealed blepharitis with a severe decrease in tear film bilaterally.? Conjunctiva, cornea, anterior chamber and iris were within normal limits bilaterally.? Lens status demonstrated 3+ nuclear sclerosis, 1+ cortical changes bilaterally.? ? FUNDUS EXAM:? Revealed good view with good dilation bilaterally.? Optic discs, macula, vessels, periphery and vitreous were within normal limits bilaterally.? ? ASSESSMENT AND PLAN:? Visually significant cataract, right eye.? After the risks, benefits, alternatives as well as expectations were delivered to the patient, she elected to go forward with cataract removal.? She understands the risks to include but not limited to infection, bleeding, loss of vision or loss of the eye itself.? Secondly, she understands that postoperatively she is likely to require spectacle correction for her best visual acuity.? Finally, a complete ophthalmic exam was performed and there was not determined to be any other source of vision decline other than that of cataract.? ? After understanding all risks as well as expectations, she elected to go forward with the cataract removal and will be doing so in the near future. LEONIDAS
--- NOTE | 2024-02-04 | OP_ITS ---
OPERATION DATE: 02/04/2024 SURGEON: Jorge A Doshi D.O. PREOPERATIVE DIAGNOSIS: Nuclear sclerotic cataract right eye. POSTOPERATIVE DIAGNOSIS: Nuclear sclerotic cataract right eye. PROCEDURE NAME: Cataract extraction with intraocular lens placement of the right eye. ANESTHESIA: Topical ESTIMATED BLOOD LOSS: Zero. COMPLICATIONS: None. PROCEDURE: The patient was brought to the Operating Room in supine position. After proper identification, the right eye was prepped and draped in a sterile ophthalmic fashion. A paracentesis created at the 11 o'clock position. Approximately 1 cc of unpreserved Xylocaine was injected into the anterior chamber followed by Amvisc Plus. Using a 2.6 mm Keratome blade, a clear corneal incision was created at the 9 o'clock limbus. A cystotome was then used to begin a curvilinear capsulorrhexis that was continued for 360 degrees with the Utrata forceps. BSS on a 26 gauge cannula was injected beneath the anterior capsule to hydrodissect as well as hydrodelineate the lens. After ensuring mobility, phacoemulsification was performed in a [id number]-type fashion. After all nuclear material had been removed from the eye, IA was introduced and all residual cortical material was cleaned up. Additional Amvisc Plus was injected into the posterior bag and a lens model [id number], 19.0 diopters was injected and dialed into position. After ensuring centration, IA was reintroduced into the anterior chamber and all residual Amvisc Plus was removed from the eye. BSS on a 30 gauge cannula was injected into the stroma of both the clear corneal incision as well as paracentesis to hydrate the wounds. Additional BSS was injected into the anterior chamber to pressurize the eye at approximately 20 to 22 mmHg by finger tension. 0.1 cc of antibiotic was injected into the anterior chamber and Weck-Judy sponges were used to check the wounds to be watertight. One drop of apraclonidine and one drop of prednisolone acetate placed into the eye and a shield was placed over top. The patient was sent to the postoperative area in satisfactory condition to follow up the following day for postoperative care. LEONIDAS
[2024-02-04 08:05] VITALS: BP 123/68; PULSE 76; TEMP 36.2; O2SAT 96; BMI 23.7
[2024-02-04] MEDS: DIAZEPAM 5 MG TABLET PO (08:14)
[2024-02-04] MEDS: BESIFLOXACIN HCL 100 DROP DROPS.SUSP OP ×4 (08:15→08:46)
--- OUTSIDE RECORDS SUMMARY | 2024-02-04 08:15 | XMS_ITS | CCD ---
Author Organization [facility] Care Team Providers Care Financial Services Agent Name Role Phone Unavailable Unavailable Mily Andrade Unavailable SALAS KIRKPATRICK Attending Unavailable SALAS KIKRPATRICK Admitting Unavailable Lupe, Ms. Mily Beckwith Primary Care Rosemary vailable Curt, Dr. Barrera Attending Unavailable Curt, Dr. Barrera Referring Unavailable Curt, Dr. Barrera Referring Unavailable CHELITA Sandhu Attending Unavailable Lupe, Mily Amena Primary Care Rosemary vailable Mily Andrade CNP Primary Care Provider Osei Roe Unavailable Lupe MELTER HELPER-Mily MERLOS Primary Care Pro vider ANGE GEE [...] MD Unavailable Chyna Luna DO Unavailable Dylan LAM Chyna Unavailable ANDRADE, MILY Primary Care Unavailable BRO HAWK Attending Unavailable ANDRADE, MILY Primary Care Unavailable BRO HAWK Referring Unavailable ANDRADE, MILY Primary Care Unavailable JEFFERY GORDON Referring Unavailable ANNEMARIEHORTENCIA AlbertOR Attending Unavailable ANDRADE, MILY Primary Care Unavailable JEFFERY GORDON Referring Unavailable EDWARD CHRISTINE Attending Unavailable ANDRADE, MILY Primary Care Unavailable ANDRADE, MILY A Attending Unavailab le ANDRADE, MILY A Attending Unavailab le ANDRADE, MILY A Referring Unavailab le ANDRADE, MILY A Referring Unavailab le ANDRADE, MILY A Referring Unavailab le CHYNA LUNA Attending Unavailable ANDRADE, MILY Ashley Referring Unavailab SONU Leavitt Attending Unavailable ANDRADE, MILY Ashley Referring Unavailab HOLLIE Henderson Attending Unavailable Kiah Qiu OD Unavailable Allergies Allergy Classification Reported Allergen(s) Allergy Type Date of Onset Reaction(s) Facility (13 sources) Penicillins; Translations: [Penicillins] Allergy to drug (finding) 9 [facility] (20 sources) Penicillins Drug Allergy 9 Hives, Other (See Comments) [facility] (18 sources) Penicillins Drug Allergy 9 Hives [facility] Work Phone: Medications Current Medications Medication Drug Class(es) Dates Sig (Normalized) Sig (Original) acetaminophen 325 mg oral tablet (17 sources) Start: 11-11-2023 acetaminophen (Tylenol) 325 MG [...] bedtime. 60 tablet 2 01/21/2023 Active aspirin 81 mg delayed release oral tablet (20 sources) Platelet Aggregation Inhibitor, Nonsteroidal Anti-inflammatory Drug Start: 01-07-2024 Aspirin Low Dose 81 MG EC tablet 01/07/2024 Active Start: 12-03-2022 End: 11-17-2023 take 1 tablet [...] mouth once daily. calcium carbonate 1250 mg oral tablet (17 sources) Start: 4 Oyster Shell Calcium 500 MG tablet 2 [...] 0 Active cholecalciferol 0.025 mg oral capsule (17 sources) Vitamin D Start: 4 D3-1000 25 MCG (1000 UT) capsule 09/14/2023 [...] mg by mouth once daily. 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) 1 each See administration instructions 1 each 12/08/2023 Active Start: 11-19-2023 Continuous Glu cose Packing Tractor Machine Operator (FreeStyle Shaina 2 [place]) device Indications: 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 (CMS/HCC) 1 each every 14 (fourteen) days 6 each 3 11/19/2023 Active Continuous Glucose Packing Tractor Machine Operator (FreeStyle Shaina 3 [place]) device (10 sources) Start: 12-08-2023 Continuous Glucose Packing Tractor Machine Operator (FreeStyle Shaina 3 [place]) device Indications: 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) 1 Device See administration instructions 1 each 12/08/2023 Active Continuous Glucose Sensor (FreeStyle Shaina 2 Sensor) misc (8 sources) Start: 12-08-2023 End: 12-07-2024 Continuous Glucose Sensor (FreeStyle Shaina 2 Sensor) misc Indications: 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) Wear subcutaneous daily every 14 days 6 each 3 12/08/2023 12/07/2024 Active Continuous Glucose Sensor (FreeStyle Shaina 3 Plus Sensor) misc (10 sources) Start: 12-08-2023 Continuous Glucose Sensor (FreeStyle Shaina 3 Plus Sensor) misc Indications: Type 1 diabetes mellitus [...] mg by mouth Daily 11/14/2023 12/04/2023 Discontinued fluconazole 150 mg oral tablet (6 sources) Azole Antifungal Start: 11-17-2023 fluconazole (Diflucan) 150 MG tablet 11/17/2023 Active Start: 11-17-2023 End: 11-17-2023 take 1 tablet by mouth once fluconazole (Diflucan) 150 MG tablet Indications: Vaginal yeast infection Take 1 tablet (150 mg) by mouth 1 (one) time for 1 dose 1 tablet 11/17/2023 11/17/2023 Start: 04-15-2023 End: 11-17-2023 fluconazole (Diflucan) 100 M G tablet 04/15/2023 11/17/2023 Discontinued (Therapy completed) FreeStyle Shaina 2 Sensor mis c 1 each (15 sources) Start: 11-19-2023 FreeStyle Libr e 2 Sensor misc 1 each insulin aspart [...] injectable solution (20 sources) Insulin Analog Start: 01-06-2024 insulin glargine (Lantus) 100 UNIT/ML injection Injection subcutaneous 12 in the am and 7 units at night 10 mL 3 01/06/2024 Active Start: 12-31-2023 Lantus SoloSta r 100 UNIT/ML pen 12/31/2023 Active Start: 12-02-2022 End: 12-04-2023 insulin glargine (Lantus) 10 0 UNIT/ML injection Injection subcutaneous 15 in the [...] once daily. 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 ketorolac tromethamine 5 mg/ml ophthalmic solution (2 sources) Nonsteroidal Anti-inflammatory Drug, Cyclooxygenase Inhibitor Start: 01-12-20 End: 02-11-20 24 take 1 drop(s) into the eye(s) in the morning ketorolac (Acular) 0.5 % ophthalmic solution Indications: Age-related nuclear cataract of both eyes Administer 1 drop into affected eye(s) in the morning and 1 drop before bedtime. 5 mL 1 01/12/2024 02/11/2024 Active lidocaine 0.04 mg/mg medicated patch (2 sources) Antiarrhythmic, Amide Local Anesthetic Start: 11-14-19 24 Lidocaine Pain Relief 4 % patch 11/14/2023 Active loperamide hydrochloride 2 mg oral tablet (17 sources) Opioid Agonist Start: 11-14-19 24 Anti-Diarrheal 2 MG tablet 11/14/2023 Active losartan potassium 50 mg oral tablet (20 sources) Angiotensin 2 Receptor Shantel Start: 09-10-19 23 End: 12-04-19 24 losartan (Cozaar) 50 MG tablet Indications: Primary [...] by mouth nightly as needed. 0 Active meloxicam 7.5 mg oral tablet (2 sources) Nonsteroidal Anti-inflammatory Drug Start: 11-02-19 meloxicam (Mobic) 7.5 MG tablet 11/02/2023 Active nitrofurantoin, macrocrystals 25 mg / nitrofurantoin, monohydrate 75 mg oral capsule (4 sources) Nitrofuran Antibacterial Start: 11-17-19 End: 11-17-19 24 nitrofurantoin, macrocrystal-monohydr ate, (Macrobid) 100 MG capsule 11/17/2023 Active ondansetron 4 mg disintegrating oral tablet (20 sources) Serotonin-3 Receptor Antagonist Start: 11-14-19 ondansetron ODT (Zofran-ODT) 4 MG disintegrating tablet 11/14/2023 Active take 1 tablet by rita every eight hours as needed ondansetron (Zofran) 4 MG tablet Take 4 mg by mouth every 8 (eight) hours if needed Active polyethylene glycol 3350 79372 mg powder for oral solution (6 sources) Osmotic Laxative Start: 04-26-2023 End: 12-04-2023 polyethylene glycol, PEG, 3350 (MiraLax) 17 GM/SCOOP powder Indications: Slow transit constipation Take 17 g by mouth every other day if needed (constipation) 527 g 3 04/26/2023 12/04/2023 Discontinued microencapsulated potassium chloride 20 meq extended release oral tablet (19 sources) Start: 12-30-2023 potassium chlo ride CR (Klor-Con M20) 20 MEQ ER tablet 12/30/2023 Active Start: 02-20-2023 potassium chlo ride ER (Micro-K) 10 MEQ ER capsule Take [...] mEq by mouth once daily. 0 Active prednisoLONE acetate 10 mg/ml ophthalmic suspension (2 sources) Corticosteroid Start: 01-12-2024 End: 01-26-2024 prednisoLONE acetate (Pred-Forte) 1 % ophthalmic suspension Indications: Age-related nuclear cataract of both eyes Administer 1 drop into affected eye(s) in the morning and 1 drop at noon and 1 drop in the evening and 1 drop before bedtime. Do all this for 14 days. 5 mL 1 01/12/2024 01/26/2024 Active rivaroxaban 20 mg oral tablet (15 sources) Factor Xa Inhibitor Start: 12-02-2023 take [...] by mouth at bedtime 07/02/2023 Active sennosides, halfway 8.6 mg oral tablet (18 sources) Start: 11-14-2023 Senna-Time 8.6 MG tablet 11/14/2023 Active Start: 01-21-2023 take 1 tablet by rita th twice daily as needed for constipation senna [...] Active docusate sodium 50 mg / sennosides, halfway 8.6 mg oral tablet (20 sources) Start: 12-02-2022 End: 11-17-2023 take 1 tablet [...] 30 minutes after.. 20 tablet 11/17/2023 11/27/2023 levothyroxine sodium 0.125 mg oral tablet (20 [...] the tongue every 5 minutes as needed. ofloxacin 3 mg/ml ophthalmic solution (1 source) Quinolone Antimicrobial Start: 01-12-2024 End: 01-13-2024 take 1 drop(s) into the eye(s) five times daily ofloxacin (Ocuflox) 0.3 % ophthalmic solution Indications: Age-related nuclear cataract of both eyes Administer 1 drop into affected eye(s) 5 (five) times a day for 1 day Starting 1 day before surgery, continue after surgery as directed 5 mL 1 01/12/2024 01/13/2024 pregabalin 25 mg oral capsule (20 sources) Start: 01-31-2023 End: 01-19-2025 take 1 capsule by mouth in the morning pregabalin (Lyrica) 25 MG capsule Indications: Degeneration of lumbar intervertebral disc Take 1 capsule (25 mg) by mouth in the morning and 1 capsule (25 mg) before bedtime. 60 capsule 1 11/24/2023 01/18/2024 Discontinued (Reorder) rosuvastatin calcium 40 mg oral tablet (3 [...] atrial fibrillation] Onset: 03-06-2023 03-06-2023 Chronic Cataract (19 sources) Bilateral age-related nuclear cataracts; Translations: [Age-related nuclear cataract, bilateral] Onset: 12-26-2022 12-26-2022 Chronic Chronic obstructive pulmonary disease and bronchiectasis (20 sources) Chronic obstructive lung disease; Translations: [Chronic airway obstruction, not elsewhere classified] Onset: 01-16-2023 01-16-2023 Chronic Coronary atherosclerosis and other heart disease (20 sources) Coronary arteriosclerosis; Translations: [Coronary atherosclerosis of unspecified type of vessel, [place] or graft] Onset: 09-05-2020 Chronic Crushing injury [...] Episodic Occlusion or stenosis of precerebral arteries (20 sources) Bilateral stenosis of carotid arteries; Translations: [Occlusion and stenosis of bilateral carotid arteries] Onset: 11-19-2020 11-19-2020 Chronic Osteoarthritis (17 sources) Arthritis; Translations: [Unspecified osteoarthritis, unspecified site] Onset: 04-26-2023 04-26-2023 Chronic Other aftercare (1 source) Drug therapy finding; Translations: [Encounter for therapeutic drug level monitoring] 07-13-2023 Episodic Other and ill-defined cerebrovascular disease (5 sources) Cerebral arterial aneurysm; Translations: [Cerebral aneurysm, nonruptured] 12-16-2022 Chronic Other and ill-defined cerebrovascular disease (20 sources) Aneurysm of middle cerebral artery; Translations: [...] [Pain in right foot] 12-08-2023 Episodic Other eye disorders (4 sources) Epithelial basement membrane dystrophy; 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] Onset: 01-12-2024 01-12-2024 Episodic Other injuries and conditions due to external causes (2 sources) At high risk for fall; Translations: [History of falling] 11-17-2023 Episodic Other lower respiratory disease (1 source) Calcified granuloma of lung; Translations: [Pulmonary fibrosis, unspecified] 04-29-2023 Chronic Other nervous system disorders (4 sources) Spinal cord compression; Translations: [Unspecified disease of spinal cord] Chronic Other nervous system disorders (17 sources) Chronic pain; Translations: [Other chronic pain] [...] Spondylosis; intervertebral disc disorders; other back problems (18 sources) Degeneration of lumbar intervertebral disc; Translations: [Degeneration of lumbar intervertebral disc] Onset: 04-26-2023 04-26-2023 Chronic Substance-related disorders (20 sources) Smokes tobacco daily; Translations: [Tobacco use disorder] Onset: 04-26-2023 12-16-2022 Chronic Comment on above: 1/2 PPD; Thyroid disorders (17 sources) Hypothyroidism; Translations: [Hypothyroidism, unspecified] Onset: 04-26-2023 04-26-2023 Chronic Unclassified (1 source) New Patient Onset: 06-25-2023 Unclassified (1 source) Pulmonary Nodule Onset: 06-25-2023 Unclassified (6 sources) Patient on antidepressant monitoring plan Onset: [...] 01-16-2023 01-16-2023 Episodic Blindness and vision defects (18 sources) Left homonymous hemianopsia; Translations: [Homonymous bilateral [...] impaction] Onset: 01-18-2023 01-18-2023 Episodic Mood disorders (17 sources) Mood disorders Onset: 11-17-2023 11-17-2023 Noninfectious gastroenteritis (4 sources) Stercoral colitis; Translations: [Other specified noninfective gastroenteritis and colitis] Onset: 01-18-2023 01-18-2023 Episodic Nonspecific chest pain (1 source) Chest pain, unspecified; Translations: [Chest pain, unspecified type] Onset: 03-25-2023 Episodic Other circulatory disease (20 sources) History of cerebrovascular accident; Translations: [Personal history of transient ischemic attack (TIA), and cerebral infarction without residual deficits] Onset: 12-26-2022 01-16-2023 Episodic Other eye disorders (18 sources) Dry eyes; Translations: [Dry eye syndrome [...] Test Name Value Interpretation Reference Range Facility [facility] - bilateralon 1 03-13-2023 Diagnosis: Cataract both eyes (OU) Testing Indication: Performed for preop measurements in the determination of an intraocular lens (IOL) for both eyes (OU) Test Reliability: Good quality both eyes (OU) Interpretation: Good measurements for intraocular lens (IOL) calculation purposes. Calculation made for both eyes (OU). [facility] Radiology Study observation (narrative) [facility] CNCOon 12-17-2023 CNCO Letter Text Normal [facility] UA (CLEAN/CATCH) MICROSC OPIC IF INDICATEon 12-11-2023 BILIRUBIN URINE Negative NEGATIVE [facility] BLOOD URINE Negative NEGATIVE [facility] Clarity (U) CLEAR CLEAR [facility] Color (U) LT. YELLOW YELLOW [facility] GLUCOSE URINE UA >=1000 Abnormal NEGATIVE mg/dL [facility] Interpretation and review of laboratory results Abnormal [facility] Ketones Ql (U) Negative NEGATIVE mg/dL [facility] Leukocyte esterase Test strip Ql (U) Negative NEGATIVE [facility] NITRITE URINE Negative NEGATIVE [facility] pH (U) 6.0 [pH] 5.0 - 9.0 [facility] PROTEIN URINE Negative NEG/TRACE mg/dL [facility] SPECIFIC GRAVITY URINE 1.010 1.005 - 1.025 [facility] URINE MICROSCOPIC INDICATED NO [facility] UROBILINOGEN URINE 0.2 EU/dL 0.2 - 1.0 EU/dL [facility] CNPNon 12-02-2023 CNPN Telephone (NECVS8) LUCILA TINEO ([id number]) 1950 F Date Time Provider Department 12/02/23 [...] Tineo, 1950). Yes Number to return call [phone] Reason for Call: Medication Question: Chyna from Dr. Foote's office would like to know if patient can change to xarelto, because her insurance will not cover the eliquis. They are asking if you originally started patient on eliquis, this is why the question is raised. Please call back Chyna at the above number. Thank you calling [facility]. You will receive a return call within 48 hours ( or 2 business days if close to the weekend). If you feel that this is an urgent issue and needs immediate attention, it is recommended that you contact your primary care provider office or proceed to your nearest Urgent Care Center of Emergency Room ED for evaluation/treatment. Lane Vogt RN 12/02/2023 9:57 AM Signed Returned call to office, notified that this office did not start the eliquis. It was a historical medication when she first came to the office. Verbalized understanding Allergies As of Date: 12/02/2023 Noted Allergy Reaction PENICILLINS 10/11/2018 4 - Hives Date Reviewed: 07/07/2023 Reviewed by: Latoya Greene MA - Fully Assessed Reason for Visit: Medication Question [5068] Prescriptions as of 12/02/2023 - rOPINIRole (REQUIP) [...] mL) injection (more content not included)... Normal [facility] Bacteria identified Cx Nom ( U)on 11-19-2023 Appearance (U) Adequate [facility] Internal identifier for Provider [id number] [facility] Specimen source Nom (Unsp spec) URINE [facility] STATUS FINAL [facility] Performing Organization Information Site ID: QPT Name: [employer] [facility] Address: [address] [place] [id number] Director: Blade Crane MD [facility] Laboratory - Microbiology an d Antimicrobial susceptibilityon 11-19-2023 Bacteria identified Cx Nom (U) SEE NOTE [facility] Comment on above: Mixed genital rodriguez isolated. These superficial bacteria are not indicative of a urinary tract infection. No further organism identification is warranted on this specimen. If clinically indicated, recollect clean-catch, mid-stream urine and transfer immediately to Urine Culture Transport Tube. HbA1c (Bld) [Mass fraction]o n 11-17-2023 Interpretation and review of laboratory results Abnormal [facility] Laboratory - Hematology and Cell countson 11-17-2023 HbA1c (Bld) [Mass fraction] 8.7 % [facility] US.doppler Lower extremity v ein - [...] Electronically Signed Dom Najera M.D. 2023-11-17 16:23:40 [facility] Radiology Study observation (narrative) [facility] US.doppler Lower extremity v ein - leftOrdered By: Dom Najera on 11-17-2023 [facility] Work Phone: Urinalysis macro (dipstick) panel (U)on 11-17-2023 Bilirubin, UA Negative Negative - 4(70) +++ mg/dL [facility] Blood, UA Positive Negative - 50 Moncho/mcL [facility] Clarity, UA Cloudy [facility] Color, UA Yellow [facility] Glucose, UA Positive Negative - 2000(110) ++++ mg/dL [facility] Interpretation and review of laboratory results Abnormal [facility] Ketones, UA Negative Negative - 160(16) ++++ mg/dL [facility] Leukocytes, UA Positive Negative - 500+++ Cinthia/mcL [facility] Nitrite, UA Negative Negative - Positive [facility] pH, UA 6.5 5 - 9 [facility] Protein, UA Negative Negative - 2000(20) ++++ mg/dL [facility] Spec Grav, UA 1.005 1 - 1.03 [facility] Urobilinogen, UA 0.2 0.2 - 12 mg/dL Replaced by [facility] US LOWER EXTREMITY VENO US DUPLEX LEFTon 11-17-2023 [facility] US LOWER EXTREMITY VENOUS DUPLEX LEFT [...] Electronically Signed Ion Rivera M.D. 2023-11-17 15:21:35 [facility] Radiology Study observation (narrative) [facility] XR Foot - left 3 ViewsOrdere d By: Ion Rivera on 11-17-2023 [facility] Work Phone: [facility] 07-16-2023 [facility] Telephone (NECVS8) LUCILA TINEO ([id number]) 1950 F Date Time Provider Department 07/16/23 JAH SHARPE NECVS8 During your visit today, we recorded the following information about you: Jenny Haines 07/16/2023 12:26 PM Signed Rec'd lab report from [facility] imported into [facility]. Lane Vogt RN 07/17/2023 8:06 AM Signed Labs for upcoming cerebral angiogram Allergies As of Date: 07/16/2023 Noted Allergy Reaction PENICILLINS 10/11/2018 4 - Hives Date Reviewed: 07/07/2023 Reviewed by: Latoya Greene MA - Fully Assessed Reason for Visit: Received Outside Medical Records [[id number]] Cmt: Rec'd lab report from [facility] imported into [facility]. Prescriptions as of 07/17/2023 - rOPINIRole (REQUIP) [...] Encounter Status:Closed by JENNY HAINES on 07/16/23 [facility] 07-14-2023 CNPN Telephone (NECVS8) LUCILA TINEO ([id number]) 1950 F Date Time Provider Department 07/14/23 JAH SHARPE NECVS8 During your visit today, we recorded the following information about you: Jenny Haines 07/14/2023 3:34 PM Signed Rec'd patient PT/INR results imported into [facility]. Allergies As of Date: 07/14/2023 Noted Allergy [...] Encounter Status:Closed by JENNY HAINES on 07/16/23 [facility] CNOVon 07-07-2023 CNOV Office Visit (NSEVMN ) LUCILA TINEO ([id number]) 1950 F Date Time Provider Department 07/07/23 10:40 AM JAH SHARPE During your visit today, we recorded the following information about you: Pulse Blood pressure Weight Height 85/minute 123/52 60.8 kg 1.626 m Jah Sharpe MD 07/07/2023 5:09 PM Signed [facility] Established Outpatient Visit Lucila Tineo [facility]#: [id number] Date of Service: 07/07/2023 Primary Care Provider: Mily Andrade, CHELITA [address] [place] [address] FOLLOW UP VISIT Chief complaint: Follow up for incidental unruptured brain aneurysm History of present illness: Ms. Veloz is a 73-year-old female with vascular risk factors, who presents for follow-up evaluation of an incidentally discovered unruptured brain aneurysm. The patient was residing in [place], and was found down on October 29, [...] stroke work-up. The patient then returned to [place], and she is still at a nursing [...] specific nu (more content not included)... Normal [facility] CREATININE, BLOOD (POC)on Creatinine [Mass/Vol] 0.70 mg/dL 0.7 - 1.4 mg/dL [facility] eGFR (POCT) mL/min/1.73 m2 [facility] Location:Radiology [facility], [address] [place] [address], [id number] [facility] POINT OF CARE [facility] CTA HEAD WO/W IVCONon 2023 CTA HEAD WO/W IVCON * * *Final Report* * * DATE OF EXAM: Jul 07 2023 9:44AM [facility] 0023 - CTA HEAD WO/W [...] superior parietal lobule. Encephalomalacia within the left JAVA PROJECT MANAGER territory including the occipital lobe. Hypoattenuation within [...] circulation: Distal vertebral arteries, basilar trunk and training coordinator are patent without aneurysm or dissection. Opacified dural venous sinuses and major deep and superficial draining veins are patent. Associate Trainer (topogram) images: No additional findings. IMPRESSION: Brain: No acute intracranial infarction or hemorrhage. Encephalomalacia within the right MCA and left JAVA PROJECT MANAGER territories. CTA brain: Left MCA M2 segment aneurysm with interval increase in the lumen size as detailed. No large vessel occlusion or high-grade arterial stenosis intracranially. Arterial blood flow was measured to detect acute large vessel occlusion by computer aided detection software: Not Performed. Concordance between software and imaging review: Concordant. School Operations Manager: [employer] Transcribe Date/Time: Jul 07 2023 9:47A Dictated by : DURAN FRANCO MD This examination was interpreted and the report reviewed and electronically signed by: JOSE CRUZ CARBAJAL MD on Jul 07 2023 11:52AM EST [id number] Normal [facility] CTA Head vessels WO and W co ntrast Marisol 07-07-2023 IMPRESSION: Brain: No acute intracranial infarction or hemorrhage. Encephalomalacia within the right MCA and left JAVA PROJECT MANAGER territories. CTA brain: Left MCA M2 segment aneurysm with interval increase in the lumen size as detailed. No large vessel occlusion or high-grade arterial stenosis intracranially. Arterial blood flow was measured to detect acute large vessel occlusion by computer aided detection software: Not Performed. Concordance between software and imaging review: Concordant. School Operations Manager: Favery Transcribe Date/Time: Jul 07 2023 9:47A Dictated by : DURAN FRANCO MD This examination was interpreted and the report reviewed and electronically signed by: JOSE CRUZ CARBAJAL MD on Jul 07 2023 11:52AM EST DIVISION OF RADIOLOGY * * *Final Report* * * DATE OF EXAM: Jul 07 2023 9:44AM [facility] 0023 - CTA HEAD WO/W [...] superior parietal lobule. Encephalomalacia within the left JAVA PROJECT MANAGER territory including the occipital lobe. Hypoattenuation within [...] circulation: Distal vertebral arteries, basilar trunk and training coordinator are patent without aneurysm or dissection. Opacified dural venous sinuses and major deep and superficial draining veins are patent. Associate Trainer (topogram) images: No additional findings. DIVISION OF RADIOLOGY Provider, Sergey Chagn [facility] - 07/07/2023 * * *Final Report* * * DATE OF EXAM: Jul 07 2023 9:44AM [facility] 0023 - CTA HEAD WO/W [...] superior parietal lobule. Encephalomalacia within the left JAVA PROJECT MANAGER territory including the occipital lobe. Hypoattenuation within [...] circulation: Distal vertebral arteries, basilar trunk and training coordinator are patent without aneurysm or dissection. Opacified dural venous sinuses and major deep and superficial draining veins are patent. Associate Trainer (topogram) images: No additional findings. IMPRESSION IMPRESSION: Brain: No acute intracranial infarction or hemorrhage. Encephalomalacia within the right MCA and left JAVA PROJECT MANAGER territories. CTA brain: Left MCA M2 segment aneurysm with interval increase in the lumen size as detailed. No large vessel occlusion or high-grade arterial stenosis intracranially. Arterial blood flow was measured to detect acute large vessel occlusion by computer aided detection software: Not Performed. Concordance between software and imaging review: Concordant. School Operations Manager: МАРИНА Transcribe Date/Time: Jul 07 2023 9:47A Dictated by : DURAN FRANCO MD This examination was interpreted and the report reviewed and electronically signed by: JOSE CRUZ CARBAJAL MD on Jul 07 2023 11:52AM EST [facility] Radiology Study observation (narrative) [facility] CTA Head vessels WO and W co ntrast IVOrdered By: Ccf Provider on 07-07-2023 [facility] No Panel Informationon 04-14 Interpretation and review of laboratory results Abnormal [facility] TBH UA (CLEAN/CATCH) SPINNING MACHINE OPERATOR/ERICK RO IF IND.on 04-14-2023 BILIRUBIN URINE Negative NEGATIVE [facility] Healthcare BLOOD URINE Negative NEGATIVE [facility] Healthcare Clarity (U) CLEAR CLEAR [facility] Color (U) LT. YELLOW YELLOW [facility] [...] - 1.025 [facility] URINE MICROSCOPIC INDICATED YES [facility] UROBILINOGEN URINE 0.2 EU/dL 0.2 - 1.0 EU/dL [facility] URINE MICROSCOPIC ONLYon 04-14-2023 BACTERIA URINE SMALL Abnormal NONE SEEN #/HPF [facility] CAST SEEN? NONE SEEN NONE SEEN #/LPF [facility] CRYSTALS SEEN? None Seen None Seen #/HPF [facility] MUCUS URINE TRACE Abnormal NONE SEEN [facility] SQUAMOUS EPITHELIAL CELL URINE FEW Abnormal NONE/RARE #/LPF [facility] TB RBC 0-2 [facility] WBC 10-20 Abnormal NONE SEEN #/HPF [facility] URINE CULTURE INDICATED YES [facility] YEAST URINE SEEN Abnormal NONE SEEN [facility] Comment on above: 4+ BUDDING CBC panel Auto (Bld)on 03-25 Erythrocyte distribution width (RBC) [Ratio] 14.9 % Normal 11.5-15.0 [facility] Comment on above: Order Comment: Speci men Type: BLOOD SPECIMENOrdering Facility: [facility] Address: [address] [place] [address] Performed By: #### 5 8410-2 ####[facility] LABIA [id number] [place] [address] [place] Hematocrit (Bld) [Volume fraction] 37.0 % Normal 36.0-46.0 [facility] Comment on above: Order Comment: Speci men Type: BLOOD SPECIMENOrdering Facility: [facility] Address: [address] [place] [address] Performed By: #### 5 8410-2 ####[facility] LABCLIA [id number] [place] [address] [place] Hemoglobin (Bld) [Mass/Vol] 12.1 g/dL Normal 11.5-15.5 [facility] Comment on above: Order Comment: Speci men Type: BLOOD SPECIMENOrdering Facility: [facility] Address: [address] [place] [address] Performed By: #### 5 8410-2 ####[facility] LABCLIA [id number] [place] [address] [place] MCH (RBC) [Entitic mass] 29.4 pg Normal 26.0-34.0 [facility] Comment on above: Order Comment: Speci men Type: BLOOD SPECIMENOrdering Facility: [facility] Address: [address] [place] [address] Performed By: #### 5 8410-2 ####[facility]IA [id number] [place] [address] [place] MCHC (RBC) [Mass/Vol] 32.7 g/dL Normal 30.5-36.0 [facility] Comment on above: Order Comment: Speci men Type: BLOOD SPECIMENOrdering Facility: [facility] Address: [address] [place] [address] Performed By: #### 5 8410-2 ####[facility] LABCLIA [id number] [place] [address] [place] MCV (RBC) [Entitic vol] 90.0 fL Normal 80.0-100.0 [facility] Comment on above: Order Comment: Speci men Type: BLOOD SPECIMENOrdering Facility: [facility] Address: [address] [place] [address] Performed By: #### 5 8410-2 ####[facility]IA [id number] [place] [address] [place] Nucleated RBC (Bld) [#/Vol] 10*3/uL Normal <0.01 [facility] Comment on above: Order Comment: Speci men Type: BLOOD SPECIMENOrdering Facility: [facility] Address: [address] [place] [address] Performed By: #### 5 8410-2 ####[facility] LABCLIA [id number] [place] [address] [place] Platelet mean volume (Bld) [Entitic vol] 12.2 fL Normal 9.0-12.7 [facility] Comment on above: Order Comment: Speci men Type: BLOOD SPECIMENOrdering Facility: [facility] Address: [address] [place] [address] Performed By: #### 5 8410-2 ####[facility] LABCLIA [id number] [place] [address] [place] Platelets (Bld) [#/Vol] 157 10*3/uL Normal 150-400 [facility] Comment on above: Order Comment: Speci men Type: BLOOD SPECIMENOrdering Facility: [facility] Address: [address] [place] [address] Performed By: #### 5 8410-2 ####[facility] [id number] [place] [address] [place] RBC (Bld) [#/Vol] 4.11 10*6/uL Normal 3.90-5.20 [facility] Comment on above: Order Comment: Speci men Type: BLOOD SPECIMENOrdering Facility: [facility] Address: [address] [place] [address] Performed By: #### 5 8410-2 ####[facility] LABIA [id number] [place] [address] [place] WBC (Bld) [#/Vol] 3.70 10*3/uL Normal 3.70-11.00 [facility] Comment on above: Order Comment: Speci men Type: BLOOD SPECIMENOrdering Facility: [facility] Address: [address] [place] [address] Performed By: #### 5 8410-2 ####[facility] [id number] [place] [address] [place] CNOVon 03-25-2023 CNOV Office Visit (VASSMN ) LUCILA TINEO ([id number]) 1950 F Date Time Provider Department 03/25/23 9:15 AM BRO HAWK During your visit today, we recorded the following information about you: Pulse Blood pressure 104/minute 140/84 Bro Hawk MD 03/25/2023 11:09 AM Signed [facility] [place] DEPARTMENT OF VASCULAR SURGERY OUTPATIENT VISIT DATE [...] Reactions Peni (more content not included)... Normal [facility] CT BRAIN WO IVCONon 03-25-19 CT BRAIN WO IVCON * * *Final Report* * * DATE OF EXAM: Mar 25 2023 12:09PM [facility] 0504 - CT BRAIN WO IVCON [...] administration for the CTA chest/abdomen/pelvis, degrading assessment. Associate Trainer (topogram) images: No additional findings. Post-operative change: [...] in the right posterior MCA and left JAVA PROJECT MANAGER territories with associated encephalomalacic changes, and interval development of high attenuation along the cortical margins on the right and few areas of high attenuation in the left JAVA PROJECT MANAGER territory. Findings most likely reflect gyriform enhancement [...] temporal lobe and stable adjacent vasogenic edema. School Operations Manager: PSCB Transcribe Date/Time: Mar 25 2023 12:10P Dictated by : KRISTINE SANDHU MD This examination was interpreted and the report reviewed and electronically signed by: KASSANDRA SAWYER MD on Mar 25 2023 12:53PM EST [id number] Normal [facility] CTA ABD/PELV WO/W IVCONon CTA ABD/PELV WO/W IVCON * * *Final Report* * * DATE OF EXAM: Mar 25 2023 10:28AM [facility] 0467 - CTA ABD/PELV WO/W IVCON / [...] AORTIC DIMENSIONS: AORTIC ROOT: 3.3 cm measured pypgq-[id number] mid ASCENDING THORACIC AORTA: 3.7 cm mid [...] progression since 2020. No significant changes otherwise. School Operations Manager: МАРИНА Transcribe Date/Time: Mar 25 2023 12:00P Dictated by : SOHAM ALEMAN MD This examination was interpreted and the report reviewed and electronically signed by: SOHAM ALEMAN MD on Mar 25 2023 1:16PM EST [id number] Normal [facility] CTA CHEST (NONGATED) WO/W IV CONon 03-25-2023 CTA CHEST (NONGATED) WO/W IVCON * * *Final Report* * * DATE OF EXAM: Mar 25 2023 10:28AM [facility] 0124 - CTA CHEST (NONGATED) WO/W IVCON [...] AORTIC DIMENSIONS: AORTIC ROOT: 3.3 cm measured yhrkn-uu-thbki mid ASCENDING THORACIC AORTA: 3.7 cm mid [...] progression since 2020. No significant changes otherwise. School Operations Manager: МАРИНА Transcribe Date/Time: Mar 25 2023 12:00P Dictated by : SOHAM ALEMAN MD This examination was interpreted and the report reviewed and electronically signed by: SOHAM ALEMAN MD on Mar 25 2023 1:16PM EST [id number] Normal [facility] Comprehensive metabolic 2000 panelon 03-25-2023 Albumin [Mass/Vol] 3.5 g/dL Low 3.9-4.9 [facility] Comment on above: Order Comment: Speci men Type: BLOOD SPECIMENOrdering Facility: [facility] Address: [address] [place] [address] Performed By: #### 2 4323-8 ####[facility] [id number] [place] [address] [place] ALP [Catalytic activity/Vol] 93 U/L Normal 34-123 [facility] Comment on above: Order Comment: Speci men Type: BLOOD SPECIMENOrdering Facility: [facility] Address: [address] [place] [address] Result Comment: Resu lts may be falsely decreased due to interference from hemolysis. Suggest reorder as clinically indicated. Performed By: #### 2 4323-8 ####[facility] [id number] [place] [address] [place] ALT [Catalytic activity/Vol] 21 U/L Normal 7-38 [facility] Comment on above: Order Comment: Speci men Type: BLOOD SPECIMENOrdering Facility: [facility] Address: [address] [place] [address] Result Comment: Resu lts may be falsely increased due to interference from hemolysis. Suggest reorder as clinically indicated. Performed By: #### 2 4323-8 ####[facility] [id number] [place] [address] [place] Anion gap [Moles/Vol] 11 mmol/L Normal 9-18 [facility] Comment on above: Order Comment: Speci men Type: BLOOD SPECIMENOrdering Facility: [facility] Address: [address] [place] [address] Performed By: #### 2 4323-8 ####[facility] LABCLIA [id number] [place] [address] [place] AST [Catalytic activity/Vol] 49 U/L High 13-35 [facility] Comment on above: Order Comment: Speci men Type: BLOOD SPECIMENOrdering Facility: [facility] Address: [address] [place] [address] Result Comment: Resu lts may be falsely increased due to interference from hemolysis. Suggest reorder as clinically indicated. Performed By: #### 2 4323-8 ####[facility] LABCLIA [id number] [place] [address] [place] Bilirubin [Mass/Vol] 0.4 mg/dL Normal 0.2-1.3 [facility] Comment on above: Order Comment: Speci men Type: BLOOD SPECIMENOrdering Facility: [facility] Address: [address] [place] [address] Performed By: #### 2 4323-8 ####[facility] LABCLIA [id number] [place] [address] [place] Calcium [Mass/Vol] 9.1 mg/dL Normal 8.5-10.2 [facility] Comment on above: Order Comment: Speci men Type: BLOOD SPECIMENOrdering Facility: [facility] Address: [address] [place] [address] Performed By: #### 2 4323-8 ####[facility] LABCLIA [id number] [place] [address] [place] Chloride [Moles/Vol] 101 mmol/L Normal 97-105 [facility] Comment on above: Order Comment: Speci men Type: BLOOD SPECIMENOrdering Facility: [facility] Address: [address] [place] [address] Performed By: #### 2 4323-8 ####[facility] LABCLIA [id number] [place] [address] [place] CO2 [Moles/Vol] 19 mmol/L Low 22-30 [facility] Comment on above: Order Comment: Speci men Type: BLOOD SPECIMENOrdering Facility: [facility] Address: [address] [place] [address] Performed By: #### 2 4323-8 ####[facility] LABCLIA [id number] [place] [address] [place] Creatinine [Mass/Vol] 0.60 mg/dL Normal 0.58-0.96 [facility] Comment on above: Order Comment: Speci men Type: BLOOD SPECIMENOrdering Facility: [facility] Address: [address] [place] [address] Performed By: #### 2 4323-8 ####[facility] [id number] [place] [address] [place] Creatinine and Glomerular filtration rate.predicted panel (S/P/Bld) 95 mL/min/1.73m??? Normal >=60 [facility] Comment on above: Order Comment: Speci men Type: BLOOD SPECIMENOrdering Facility: [facility] Address: [address] [place] [address] Result Comment: Janice mated Glomerular Filtration Rate [...] actual GFR. Performed By: #### 2 4323-8 ####[facility] LABCLIA [id number] [place] [address] [place] Glucose [Mass/Vol] 435 mg/dL High 74-99 [facility] Comment on above: Order Comment: Speci men Type: BLOOD SPECIMENOrdering Facility: [facility] Address: [address] [place] [address] Result Comment: The [place] Diabetes Association (ADA) provides guidance for cutoff [...] Standards of Medical Care in Diabetes 2016, [place] [employer] Association. Diabetes Care. 2016.39(Suppl 1). Performed By: #### 2 4323-8 ####[facility] LABCLIA [id number] [place] [address] [place] Potassium [Moles/Vol] Normal [facility] Comment on above: Order Comment: Speci men Type: BLOOD SPECIMENOrdering Facility: [facility] Address: [address] [place] [address] Result Comment: Unab le to assay due to interference from hemolysis. Suggest reorder as clinically indicated. Performed By: #### 2 4323-8 ####[facility] [id number] [place] [address] [place] Protein [Mass/Vol] 6.7 g/dL Normal 6.3-8.0 [facility] Comment on above: Order Comment: Speci men Type: BLOOD SPECIMENOrdering Facility: [facility] Address: [address] [place] [address] Result Comment: Resu lts may be falsely increased due to interference from hemolysis. Suggest reorder as clinically indicated. Performed By: #### 2 4323-8 ####[facility] [id number] [place] [address] [place] Sodium [Moles/Vol] 131 mmol/L Low 136-144 [facility] Comment on above: Order Comment: Speci men Type: BLOOD SPECIMENOrdering Facility: [facility] Address: [address] [place] [address] Performed By: #### 2 4323-8 ####[facility] [id number] [address] [place] Urea nitrogen [Mass/Vol] 16 mg/dL Normal 7-21 [facility] Comment on above: Order Comment: Speci men Type: BLOOD SPECIMENOrdering Facility: [facility] Address: [address] [place] [address] Performed By: #### 2 4323-8 ####[facility] [id number] [address] [place] ECG COMPLETEon 03-25-2023 ECG COMPLETE Ventricular Rate : 8 9 BPM Atrial Rate : 89 BPM P-R Interval : 146 ms QRS Duration : 72 ms Q-T Interval : 370 ms QTC Calculation(Bazett) : 450 ms Calculated P [place] : 21 degrees Calculated R [place] : -6 degrees Calculated T [place] : 3 degrees NORMAL SINUS RHYTHM . BORDERLINE ECG Confirmed by DO CHRISTINE BRUCE ([id number]), graphics editor YONY CHRIS ([id number]) on 03/27/2023 9:35:29 AM NAME : LUCILA TINEO PID : [id number] : 1950 Gender : Female Race : ORD : [id number] Procedure Date : Mar 25 2023 11:38:10 Edit Date : Mar 27 2023 09:35:30 Diagnosis: NORMAL SINUS RHYTHM . BORDERLINE ECG Confirmed by DO CHRISTINE BRUCE ([id number]), graphics editor YONY CHRIS ([id number]) on 03/27/2023 9:35:29 AM Test Reason : Chest Pain Location : 2 : EDNS E018 Overread By : DO CHRISTINE BRUCE Edited By : YONY CHRIS Referred By : , Acquired by : Nicky MATHESW [facility] ED NOTEon 03-25-2023 ED NOTE HNO ID: [id number] Author: SEPIDEH DE DIOS, Medic Service: Emergency Medicine Author Type: Infant And Toddler Teacher and Evs Tech Type: ED Notes Filed: 03/25/2023 16:57 Note Text: 3rd trop sent via straight stick in left hand Normal [facility] ED NOTE HNO ID: [id number] Author: ESTHELA RAAMN RN Service: ? Author Type: Registered Nurse Type: ED Notes Filed: 03/25/2023 11:23 Note Text: Bed: E18-11 Expected date: Expected time: Means of arrival: Comments: HUGO Normal [facility] ED PROV NOTEon 03-25-2023 ED PROV NOTE HNO ID: [id number] Author: EDWARD CHRISTINE DO Service: Emergency Medicine [...] w/irratic blood glucose(s) SHIRA (renal artery stenosis) ([facility]) 2 arteries partially occluded Thoracoabdominal aortic aneurysm (TAAA) ([facility]) PAST SURGICAL HISTORY Procedure Laterality Date [...] pain, unspecified type Coronary artery disease involving [place] coronary artery of [place] heart without angina pectoris Uncontrolled type 2 [...] emergency depar (more content not included)... Normal [facility] HIGH SENSITIVITY TROPONIN T (INITIAL)on 03-25-2023 Troponin T.cardiac High sensitivity method [Mass/Vol] 18 ng/L High <12 [facility] Comment on above: Order Comment: Letty sanchez Type: BLOOD SPECIMENOrdering Facility: [facility] Address: [address] [place] [address] Result Comment: When assessing risk for acute [...] 30 day MACE. Performed By: #### L [id number] ####[facility] LABCL[facility] [id number] [place] [address] [place] HIGH SENSITIVITY TROPONIN T (SECOND)on 03-25-2023 Troponin T.cardiac High sensitivity method [Mass/Vol] 17 ng/L High <12 [facility] Comment on above: Order Comment: Letty sanchez Type: BLOOD SPECIMENOrdering Facility: [facility] Address: [address] [place] [address] Result Comment: When assessing risk for acute [...] 30 day MACE. Performed By: #### L [id number] ####[facility]CL[facility] [id number] [place] [address] [place] HIGH SENSITIVITY TROPONIN T (THIRD) 3 HRS AFTER INITIALon 03-25-2023 Troponin T.cardiac High sensitivity method [Mass/Vol] 18 ng/L High <12 [facility] Comment on above: Order Comment: Speci men Type: BLOOD SPECIMENOrdering Facility: [facility] Address: [address] [place] [address] Result Comment: When assessing risk for acute [...] 30 day MACE. Performed By: #### L [id number] ####[facility] [id number] [address] [place] XR CHEST 2V FRONTAL/LATon [...] since 09/20/20 most concerning for neoplasm Emphysema School Operations Manager: МАРИНА Transcribe Date/Time: Mar 25 2023 12:49P Dictated by : KHLOE GAYLE MD This examination was interpreted and the report reviewed and electronically signed by: KHLOE GAYLE MD on Mar 25 2023 1:04PM EST [id number] Normal [facility] CNPKathleen 03-13-2023 CNPN Telephone (PODCCP) RIVKALUCILA Pierce ([id number]) 1950 F Date Time Provider Department 03/13/23 DARRYL SAUER PODCCP During your visit today, we recorded the following information about you: Darryl Sauer, SHREYA 03/13/2023 3:39 PM Signed Reason for call: Mila called and she would like to schedule an appointment for Lucila with Dr Hawk. Looking for a Thursday apt. Contact Name: Mila Kramer Home and cell number: [phone] Diagnosis: TAAA. Rapid new growth Kind RegardsDarryl [...] Encounter Status:Closed by DARRYL SAUER on 03/13/23 [facility] 01-02-2023 CHELITAN Telephone ([facility]) LUCILA TINEO ([id number]) 1950 F Date Time Provider Department 01/02/23 JAH SHARPE During your visit today, we recorded the following information about you: Lane Vogt, RN 01/02/2023 1:34 PM Signed Voice mail left for daughter to discuss plan of care for follow up of cerebral aneurysm as discussed with Dr Sharpe at appointment. Imaging in 6 months versus cerebral angiogram. Requested daughter to either call this office or send a [employer] message with preference [facility] 01/07/2023 12:30 PM Signed Daughter, Mila Kramer returned call - please call [phone]. Lane Vogt RN 01/07/2023 12:43 PM Signed Attempted to return call, voice mail left for daughter with office number to return call to this office at her convenience. [facility] 01/07/2023 2:14 PM Signed Please call daughter back at [phone]. Until 4pm. Lane Vogt RN 01/07/2023 2:43 [...] LPN - Fully Assessed Reason for Visit: Tire Care Manager - Other [[id number]] Prescriptions as of 01/07/2023 - atorvastatin (LIPITOR) [...] Status:Closed by LANE VOGT on 01/02/23 Normal [facility] SCREENING MAMMOGRAM W/SAULO, BILATERAL*on 04-24-2022 SCREENING MAMMOGRAM [...] VERY IMPORTANT TO YOUR HEALTH. THE CURRENT [place] [employer] GUIDELINES RECOMMENDS ANNUAL MAMMOGRAPHY BEGINNING AT AGE 40 THIS FACILITY USES A REMINDER SYSTEM TO ENSURE ALL PATIENTS RECEIVE REMINDER NOTIFICATIONS AT THE APPROPRIATE TIME BASED ON THE RECOMMENDATIONS OF THIS EXAM. Report reported and signed by Silviano Roth on 04/25/2022 0759 Normal [facility] Soccer Commentator Office Visit (Cardiology)on 12-11-2021 Follow-up visit Diagnoses/Problems [...] we can help. You may also call [phone] for free resources and assistance.; Status:Complete - [...] Recorded: 11Dec2021 11:20AM Heart Rate76, L Radial [id number], LUE, Sitting Uvinrgeuh10, LUE, Sitting Height5 ft 4 in Gjiabs921 lb BMI Cychaejaie89.98 kg/m2 BSA Calculated1.79 Tobacco Usea) Yes Patient encouraged to stop using tobacco productsYes PHQ-2 #1. Over the last 2 weeks have you felt down, depressed or hopeless? (If yes, answer PHQ-9 below)No PHQ-2 #2. Over the last 2 weeks have you felt little interest or pleasure in doing things? (If yes, answer PHQ-9 below)No Fa (more content not included)... Normal [employer] Tobacco Screening.on 022 Adult depression screening assessment No [facility] Chip Estimate 250 DO Work Phone: Fall risk assessment b) One or more fall s in the last year [facility] Joe 250 DO Work Phone: Tobacco use status CPHS a) Yes [facility] Joe Correa DO Work Phone: Tobacco Screening. Yes [facility] HeartMontse 250 DO Work Phone: XR Spine Lumbar Complete w/F tyrone AND [place] 11-18-2021 XR Spine Lumbar Complete w/Flex AND [...] by Silviano Roth on 11/18/2021 1519 Normal [facility] Soccer Commentator US Venous, Bilateral, Lower [place] 10-02-2021 US Venous, Bilateral, Lower Ext FINDINGS: [...] by Silviano Roth on 10/03/2021 0652 Normal [facility] Soccer Commentator Office Visit (Cardiology)on 02-05-2021 Follow-up visit Diagnoses/Problems Assessed Hypertension (401.9) (I10) Remains suboptimal CAD (coronary artery disease) (414.00) (I25.10) July 2020 ACS admit 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 ANIMAL CONTROL SUPERVISOR in 2 weeks Adhering to 2017 AHA/ACC [...] hospitalized overnight and treated with infusion. Saw Spudder inpatient at [facility] due to minimally elevated troponin. Fully recovered. [...] smoker (305.1) (more content not included)... Normal [employer] Tobacco Screening.on 021 Fall risk assessment a) No falls within the last [facility] Chip [facility]imate 250 DO Work Phone: Tobacco use status [facility] a) [facility] Chip Estimate 250 DO Work Phone: Tobacco Screening. Yes [facility] Heart-Jayden 250 DO Work Phone: Tobacco Screening.on 021 Fall risk assessment a) No falls within the last year [facility] Heart-Shan 600 DO Work Phone: Tobacco use status CP a) Yes [facility] Heart-Shan 600 DO Work Phone: Tobacco Screening. Yes [facility] HeartShan 600 DO Work Phone: Comprehensive Metabolic Pane dom 08-08-2020 Albumin [Mass/Vol] 3.1 g/dL Low 3.2-5.5 [facility] Comment on above: Performed By: #### C MP #### [address] Albumin/Globulin [Mass ratio] 0.9 {ratio} Normal [facility] Comment on above: Performed By: #### C MP #### [address] ALP [Catalytic activity/Vol] 98 U/L High 32-92 [facility] Comment on above: Performed By: #### C MP #### [address] ALT [Catalytic activity/Vol] 17 U/L Normal 10-60 [facility] Comment on above: Performed By: #### C MP #### [place] [address] [place] AST [Catalytic activity/Vol] 24 U/L Normal 10-42 [facility] Comment on above: Performed By: #### C MP #### [place] [address] [place] Bilirubin [Mass/Vol] 0.6 mg/dL Normal 0.3-1.2 [facility] Comment on above: Performed By: #### C MP #### [place] [address] [place] Calcium [Mass/Vol] 8.8 mg/dL Normal 8.2-10.2 [facility] Comment on above: Performed By: #### C MP #### [address] Chloride [Moles/Vol] 103 mmol/L Normal 95-114 [facility] Comment on above: Performed By: #### C MP #### [address] CO2 [Moles/Vol] 20.4 mmol/L Low 22.0-30.0 [facility] Comment on above: Performed By: #### C MP #### [address] Creatinine [Mass/Vol] 1.06 mg/dL High 0.44-1.03 [facility] Comment on above: Performed By: #### C MP #### [address] Creatinine Clr Calc Pharmacy 49.44 [facility] Comment on above: Result Comment: PERF ORMED BY: [place] [address] PATHOLOGIST FLOOR ATTENDANT DOMINGA SOLIMAN M.D. Performed By: #### C MP #### [address] Estimated GFR ( Grace > 60 [facility] Comment on above: Result Comment: GFR estimated reference range: According to KDOQI guidelines, <60 ml/min/1.73m2 is sufficient to diagnose a patient with chronic kidney disease. Performed By: #### C MP #### [place] [address] [place] Estimated GFR (Non- Am 51 [facility] Comment on above: Performed By: #### C MP #### [address] Globulin (S) [Mass/Vol] 3.3 g/dL [facility] Comment on above: Performed By: #### C MP #### [address] Glucose [Mass/Vol] 282 mg/dL High 70-100 [facility] Comment on above: Result Comment: Martha Glucose Reference Range is dependent on time and content of last meal. Glucose of more than 200 mg/dL in a nonstressed, ambulatory subject supports the diagnosis of Diabetes Mellitus. ADA recommended reference range Performed By: #### C MP #### [facility] [address] [place] [id number] [facility] Potassium [Moles/Vol] 4.5 mmol/L Normal 3.5-5.1 [facility] Comment on above: Performed By: #### C MP #### [facility] [address] Protein [Mass/Vol] 6.4 g/dL Normal 6.1-7.9 [facility] Comment on above: Performed By: #### C MP #### [facility] [address] Sodium [Moles/Vol] 134 mmol/L Low 136-146 [facility] Comment on above: Performed By: #### C MP #### [facility] [address] [place] [id number] [facility] Urea nitrogen [Mass/Vol] 29 mg/dL High 9-23 [facility] Comment on above: Performed By: #### C MP #### [facility] [address] [place] [id number] [facility] ECG 12 lead ECGon 08-08-2020 ECG 12 lead ECG [facility] Main [place] [address] [place] [address] Electrocardiograph Report Signed Patient: Lucila Tineo MR#: [id number] : 1950 Acct:[id number] Age/Sex: 70 / F ADM Date: 08/06/20 Loc: Room: [address] [place] [address] Type: ADM IN Attending Dr: Drew Patterson [...] MD 08/08/20 0734 Signed By: 08/08/20 1017 [facility] Glucose Poct Glucometerson 0 08-08-2020 Commemt1 Glu2: Cleaned Meter [facility] Comment on above: Result Comment: PERF ORMED BY: [place] [address] PATHOLOGIST FLOOR ATTENDANT DOMINGA SOLIMAN M.D. Performed By: #### P T, CBC, PTT #### [facility] [address] [place] [address] Glucose [Mass/Vol] 354 mg/dL Normal [facility] Comment on above: Result Comment: [place] Glucose Reference Range is dependent on time and content of last meal. Glucose of more than 200 mg/dL in a nonstressed, ambulatory subject supports the diagnosis of Diabetes Mellitus. Performed By: #### P T, CBC, PTT #### [facility] [address] [place] [address] Commemt1 Glu2: Cleaned Meter [facility] Comment on above: Result Comment: PERF ORMED BY: [facility] [address] [place] [address] PATHOLOGIST FLOOR ATTENDANT DOMINGA SOLIMAN M.D. Performed By: #### P T, CBC, PTT #### [facility] [address] [place], [place] [id number] [facility] Glucose [Mass/Vol] 380 mg/dL Normal [facility] Comment on above: Result Comment: Martha Glucose Reference Range is dependent on time and content of last meal. Glucose of more than 200 mg/dL in a nonstressed, ambulatory subject supports the diagnosis of Diabetes Mellitus. Performed By: #### P T, CBC, PTT #### [address] Glucose [Mass/Vol] 80 mg/dL [facility] Comment on above: Result Comment: Martha om Glucose Reference Range is dependent on time and content of last meal. Glucose of more than 200 mg/dL in a nonstressed, ambulatory subject supports the diagnosis of Diabetes Mellitus. PERFORMED BY: [place] [address] PATHOLOGIST FLOOR ATTENDANT DOMINGA SOLIMAN M.D. Performed By: #### P T, CBC, PTT #### [address] Commemt1 [facility] Comment on above: Result Comment: Glu2 : FOLLOW HYPOGLYCEMIC Performed By: #### P T, CBC, PTT #### [address] Commemt2 Cleaned Meter [facility] Comment on above: Performed By: #### P T, CBC, PTT #### [address] Commemt3 WILL NOTIFY DR/RN [facility] Comment on above: Result Comment: PERF ORMED BY: [place] [address] PATHOLOGIST FLOOR ATTENDANT DOMINGA SOLIMAN M.D. Performed By: #### P T, CBC, PTT #### [address] Glucose [Mass/Vol] 42 mg/dL Off scale low [facility] Comment on above: Result Comment: Martha om Glucose Reference Range is dependent on time and content of last meal. Glucose of more than 200 mg/dL in a nonstressed, ambulatory subject supports the diagnosis of Diabetes Mellitus. Performed By: #### P T, CBC, PTT #### [address] Troponin I(TnI)on 08-08-2020 Troponin I.cardiac [Mass/Vol] 2.45 ng/mL Off scale high 0-0.02 [facility] Comment on above: Result Comment: KRISTI [place] Cut off value > or equal to 0.03 ng/mL in conjunction with clinical conditions of myocardial infarction. (www.escardio.org/guidelines) PERFORMED BY: [place] [address] PATHOLOGIST FLOOR ATTENDANT DOMINGA SOLIMAN M.D. Performed By: #### T ROP #### [place] [address] [place] A1C with Estimated Average G luon 08-07-2020 Glucose [Mass/Vol] 183 mg/dL Normal [facility] Comment on above: Result Comment: PERF ORMED BY: [place] [address] PATHOLOGIST FLOOR ATTENDANT DOMINGA SOLIMAN M.D. Performed By: #### G LULS #### Point of Care testing , HbA1c (Bld) [Mass fraction] 8.0 % High 4.3-5.6 [facility] Comment on above: Result Comment: Incr eased risk for diabetes: 5.7 - 6.4 diabetes: >6.4 glycemic control for adults with diabetes: <7.0 Performed By: #### G LULS #### Point of Care testing , Complete Blood Count Auto Di ffon 08-07-2020 Basophils (Bld) [#/Vol] 0.1 10*3/uL Normal 0.0-0.2 [facility] Comment on above: Result Comment: PERF ORMED BY: [place] [address] PATHOLOGIST FLOOR ATTENDANT DOMINGA SOLIMAN M.D. Performed By: #### G LULS #### Point of Care testing , Basophils/100 WBC (Bld) 1.4 % Normal . [facility] Comment on above: Performed By: #### G LULS #### Point of Care testing , Eosinophils (Bld) [#/Vol] 0.1 10*3/uL Normal 0.0-0.45 [facility] Comment on above: Performed By: #### G SHANEKA #### Point of Care testing , Eosinophils/100 WBC (Bld) 2.6 % Normal . [facility] Comment on above: Performed By: #### G ARVINDLS #### Point of Care testing , Erythrocyte distribution width (RBC) [Ratio] 15.6 % High 11.9-15.3 [facility] Comment on above: Performed By: #### G ARVINDLS #### Point of Care testing , Hematocrit (Bld) [Volume fraction] 39.8 % Normal 34.0-46.4 [facility] Comment on above: Performed By: #### G ARVINDLS #### Point of Care testing , Hemoglobin (Bld) [Mass/Vol] 13.8 g/dL Normal 11.8-15.4 [facility] Comment on above: Performed By: #### [place] SAMUELSLS #### Point of Care testing , Lymphocytes (Bld) [#/Vol] 1.5 10*3/uL Normal 1.00-4.8 [facility] Comment on above: Performed By: #### G SHANEKA #### Point of Care testing , Lymphocytes/100 WBC (Bld) 26.4 % Normal . [facility] Comment on above: Performed By: #### G ARVINDLS #### Point of Care testing , MCH (RBC) [Entitic mass] 30.9 pg Normal 24.7-34.3 [facility] Comment on above: Performed By: #### [place] MUNROE #### Point of Care testing , MCV (RBC) [Entitic vol] 89.0 fL Normal 80-100 [facility] Comment on above: Performed By: #### G SHANEKA #### Point of Care testing , Mean Corpuscular HGB Conc 34.8 g/dL Normal 32.0-35.0 [facility] Comment on above: Performed By: #### G ARVINDLS #### Point of Care testing , Monocytes (Bld) [#/Vol] 0.4 10*3/uL Normal 0.0-0.8 [facility] Comment on above: Performed By: #### G SHANEKA #### Point of Care testing , Monocytes/100 WBC (Bld) 7.0 % Normal . [facility] Comment on above: Performed By: #### G ARVINDLS #### Point of Care testing , Neutrophils (Bld) [#/Vol] 3.6 10*3/uL Normal 1.8-7.7 [facility] Comment on above: Performed By: #### G ARVINDLS #### Point of Care testing , Neutrophils/100 WBC (Bld) 62.6 % Normal . [facility] Comment on above: Performed By: #### G ARVINDLS #### Point of Care testing , Nucleated RBC/100 WBC (Bld) [Ratio] 0.4 % Normal 0-0.5 [facility] Comment on above: Performed By: #### G SHANEKA #### Point of Care testing , Platelet mean volume (Bld) [Entitic vol] 9.1 fL Normal 6.3-10.7 [facility] Comment on above: Performed By: #### G SHANEKA #### Point of Care testing , Platelets (Bld) [#/Vol] 201 10*3/uL Normal 150-450 [facility] Comment on above: Performed By: #### G SHANEKA #### Point of Care testing , RBC (Bld) [#/Vol] 4.47 10*6/uL Normal 3.60-5.00 [facility] Comment on above: Performed By: #### G SHANEKA #### Point of Care testing , WBC (Bld) [#/Vol] 5.7 10*3/uL Normal 4.5-11.0 [facility] Comment on above: Performed By: #### [place] MUNROE #### Point of Care testing , Basophils (Bld) [#/Vol] 0.1 10*3/uL Normal 0.0-0.2 [facility] Comment on above: Result Comment: PERF ORMED BY: [facility] [address] [place] [address] PATHOLOGIST FLOOR ATTENDANT DOMINGA SOLIMAN M.D. Performed By: #### P T, CBC, PTT #### [facility] [address] [place] [address] [place] Basophils/100 WBC (Bld) 0.7 % Normal . [facility] Comment on above: Performed By: #### P T, CBC, PTT #### [facility] [address] [place] [address] [place] Eosinophils (Bld) [#/Vol] 0.1 10*3/uL Normal 0.0-0.45 [facility] Comment on above: Performed By: #### P T, CBC, PTT #### [facility] [address] [place] [address] [place] Eosinophils/100 WBC (Bld) 1.5 % Normal . [facility] Comment on above: Performed By: #### P T, CBC, PTT #### [facility] [address] Erythrocyte distribution width (RBC) [Ratio] 15.4 % High 11.9-15.3 [facility] Comment on above: Performed By: #### P T, CBC, PTT #### [facility] [address] [place] [address] [place] Hematocrit (Bld) [Volume fraction] 41.4 % Normal 34.0-46.4 [facility] Comment on above: Performed By: #### P T, CBC, PTT #### [facility] [address] [place] [address] [place] Hemoglobin (Bld) [Mass/Vol] 14.0 g/dL Normal 11.8-15.4 [facility] Comment on above: Performed By: #### P T, CBC, PTT #### [facility] [address] [place] [address] [place] Lymphocytes (Bld) [#/Vol] 2.0 10*3/uL Normal 1.00-4.8 [facility] Comment on above: Performed By: #### P T, CBC, PTT #### [facility] [address] [place] [address] [place] Lymphocytes/100 WBC (Bld) 30.1 % Normal . [facility] Comment on above: Performed By: #### P T, CBC, PTT #### [facility] [address] MCH (RBC) [Entitic mass] 30.4 pg Normal 24.7-34.3 [facility] Comment on above: Performed By: #### P T, CBC, PTT #### [facility] [address] MCV (RBC) [Entitic vol] 89.6 fL Normal 80-100 [facility] Comment on above: Performed By: #### P T, CBC, PTT #### [facility] [address] Mean Corpuscular HGB Conc 33.9 g/dL Normal 32.0-35.0 [facility] Comment on above: Performed By: #### P T, CBC, PTT #### [address] Monocytes (Bld) [#/Vol] 0.4 10*3/uL Normal 0.0-0.8 [facility] Comment on above: Performed By: #### P T, CBC, PTT #### [address] Monocytes/100 WBC (Bld) 6.4 % Normal . [facility] Comment on above: Performed By: #### P T, CBC, PTT #### [address] Neutrophils (Bld) [#/Vol] 4.2 10*3/uL Normal 1.8-7.7 [facility] Comment on above: Performed By: #### P T, CBC, PTT #### [address] Neutrophils/100 WBC (Bld) 61.3 % Normal . [facility] Comment on above: Performed By: #### P T, CBC, PTT #### [address] Nucleated RBC/100 WBC (Bld) [Ratio] 0.1 % Normal 0-0.5 [facility] Comment on above: Performed By: #### P T, CBC, PTT #### [facility] [address] Platelet mean volume (Bld) [Entitic vol] 8.9 fL Normal 6.3-10.7 [facility] Comment on above: Performed By: #### P T, CBC, PTT #### [facility] [address] Platelets (Bld) [#/Vol] 197 10*3/uL Normal 150-450 [facility] Comment on above: Performed By: #### P T, CBC, PTT #### [address] RBC (Bld) [#/Vol] 4.62 10*6/uL Normal 3.60-5.00 [facility] Comment on above: Performed By: #### P T, CBC, PTT #### [facility] [address] WBC (Bld) [#/Vol] 6.8 10*3/uL Normal 4.5-11.0 [facility] Comment on above: Performed By: #### P T, CBC, PTT #### [address] Comprehensive Metabolic Pane dom 08-07-2020 Albumin [Mass/Vol] 3.4 g/dL Normal 3.2-5.5 [facility] Comment on above: Performed By: #### G LULS #### Point of Care testing , Albumin/Globulin [Mass ratio] 1.0 {ratio} Normal [facility] Comment on above: Performed By: #### G LULS #### Point of Care testing , ALP [Catalytic activity/Vol] 107 U/L High 32-92 [facility] Comment on above: Performed By: #### G LULS #### Point of Care testing , ALT [Catalytic activity/Vol] 17 U/L Normal 10-60 [facility] Comment on above: Performed By: #### G LULS #### Point of Care testing , AST [Catalytic activity/Vol] 25 U/L Normal 10-42 [facility] Comment on above: Performed By: #### G ARVINDLS #### Point of Care testing , Bilirubin [Mass/Vol] 0.9 mg/dL Normal 0.3-1.2 [facility] Comment on above: Performed By: #### G ARVINDLS #### Point of Care testing , Calcium [Mass/Vol] 9.1 mg/dL Normal 8.2-10.2 [facility] Comment on above: Performed By: #### G ARVINDLS #### Point of Care testing , Chloride [Moles/Vol] 105 mmol/L Normal 95-114 [facility] Comment on above: Performed By: #### G ARVINDLS #### Point of Care testing , CO2 [Moles/Vol] 20.9 mmol/L Low 22.0-30.0 [facility] Comment on above: Performed By: #### G ARVINDLS #### Point of Care testing , Creatinine [Mass/Vol] 0.96 mg/dL Normal 0.44-1.03 [facility] Comment on above: Performed By: #### G SHANEKA #### Point of Care testing , Creatinine Clr Calc Pharmacy 54.35 [facility] Comment on above: Performed By: #### G ARVINDLS #### Point of Care testing , Estimated GFR ( Grace > 60 [facility] Comment on above: Result Comment: GFR estimated reference range: According to KDOQI guidelines, <60 ml/min/1.73m2 is sufficient to diagnose a patient with chronic kidney disease. Performed By: #### G ARVINDLS #### Point of Care testing , Estimated GFR (Non- Am 57 [facility] Comment on above: Performed By: #### G ARVINDLS #### Point of Care testing , Globulin (S) [Mass/Vol] 3.5 g/dL [facility] Comment on above: Performed By: #### G ARVINDLS #### Point of Care testing , Glucose [Mass/Vol] 391 mg/dL High 70-100 [facility] Comment on above: Result Comment: Martha Glucose Reference Range is dependent on time [...] , Protein [Mass/Vol] 6.9 g/dL Normal 6.1-7.9 [facility] Comment on above: Performed By: #### G ARVINDLS #### Point of Care testing , Sodium [Moles/Vol] 136 mmol/L Normal 136-146 [facility] Comment on above: Performed By: #### G ARVINDLS #### Point of Care testing , Urea nitrogen [Mass/Vol] 19 mg/dL Normal 9-23 [facility] Comment on above: Performed By: #### G ARVINDLS #### Point of Care testing , Albumin [Mass/Vol] 3.4 g/dL Normal 3.2-5.5 [facility] Comment on above: Performed By: #### G ARVINDLS #### Point of Care testing , Albumin/Globulin [Mass ratio] 0.9 {ratio} Normal [facility] Comment on above: Performed By: #### G ARVINDLS #### Point of Care testing , ALP [Catalytic activity/Vol] 100 U/L High 32-92 [facility] Comment on above: Performed By: #### G ARVINDLS #### Point of Care testing , ALT [Catalytic activity/Vol] 17 U/L Normal 10-60 [facility] Comment on above: Performed By: #### G ARVINDLS #### Point of Care testing , AST [Catalytic activity/Vol] 34 U/L Normal 10-42 [facility] Comment on above: Performed By: #### G ARVINDLS #### Point of Care testing , Bilirubin [Mass/Vol] 0.8 mg/dL Normal 0.3-1.2 [facility] Comment on above: Performed By: #### G LULS #### Point of Care testing , Calcium [Mass/Vol] 9.2 mg/dL Normal 8.2-10.2 [facility] Comment on above: Performed By: #### G LULS #### Point of Care testing , Chloride [Moles/Vol] 104 mmol/L Normal 95-114 [facility] Comment on above: Performed By: #### G LULS #### Point of Care testing , CO2 [Moles/Vol] 20.0 mmol/L Low 22.0-30.0 [facility] Comment on above: Performed By: #### G LULS #### Point of Care testing , Creatinine [Mass/Vol] 0.95 mg/dL Normal 0.44-1.03 [facility] Comment on above: Performed By: #### G LULS #### Point of Care testing , Creatinine Clr Calc Pharmacy 55.10 [facility] Comment on above: Result Comment: PERF ORMED BY: [facility] [address] [place] [address] PATHOLOGIST FLOOR ATTENDANT DOMINGA SOLIMAN M.D. Performed By: #### G LULS #### Point of Care testing , Estimated GFR ( Grace > 60 [facility] Comment on above: Result Comment: GFR estimated reference range: According to KDOQI guidelines, <60 ml/min/1.73m2 is sufficient to diagnose a patient with chronic kidney disease. Performed By: #### G LULS #### Point of Care testing , Estimated GFR (Non- Am 58 [facility] Comment on above: Performed By: #### G LULS #### Point of Care testing , Globulin (S) [Mass/Vol] 3.6 g/dL [facility] Comment on above: Performed By: #### G LULS #### Point of Care testing , Glucose [Mass/Vol] 271 mg/dL High 70-100 [facility] Comment on above: Result Comment: Martha Glucose Reference Range is dependent on time [...] , Protein [Mass/Vol] 7.0 g/dL Normal 6.1-7.9 [facility] Comment on above: Performed By: #### G LULS #### Point of Care testing , Sodium [Moles/Vol] 136 mmol/L Normal 136-146 [facility] Comment on above: Performed By: #### G LULS #### Point of Care testing , Urea nitrogen [Mass/Vol] 15 mg/dL Normal 9-23 [facility] Comment on above: Performed By: #### G LULS #### Point of Care testing , [facility] echo transthoracicon [facility] echo transthoracic [place] [address] Echocardiogram Signed Patient: Lucila Tineo MR#: [id number] : 1950 Acct:[id number] Age/Sex: 70 / F ADM Date: 08/06/20 Loc: Room: [address] [place] [address] Type: ADM IN Attending Dr: Drew Patterson MD Ordering Provider: Bravo Abdi MD Date of Service: 08/06/20 [facility] echo transthoracic: NSTEMI, wall motion abnormalities Copies to: MD Cory Del Toro MD, [facility] Height: 64 in Weight: 167 lb [...] mmHg MR max P.8 mmHg Transcribed By: [facility] 08/07/20 112 Dictated By: Cory Rudd MD, [facility] 08/07/20 0927 Signed By: 08/07/20 1127 Normal [facility] [facility] Glucose Poct Glucometerson 0 08-07-2020 Commemt3 Cleaned Meter [facility] Comment on above: Result Comment: PERF ORMED BY: [facility] [address] [place] [address] PATHOLOGIST FLOOR ATTENDANT DOMINGA SOLIMAN M.D. Performed By: #### G LULS #### Point of Care testing , Glucose [Mass/Vol] 503 mg/dL Off scale high [facility] Comment on above: Result Comment: Martha om Glucose Reference Range is dependent on time and content of last meal. Glucose of more than 200 mg/dL in a nonstressed, ambulatory subject supports the diagnosis of Diabetes Mellitus. Performed By: #### G LULS #### Point of Care testing , Commemt1 Glu2: Cleaned Meter [facility] Comment on above: Result Comment: PERF ORMED BY: [place] [address] PATHOLOGIST FLOOR ATTENDANT DOMINGA SOLIMAN M.D. Performed By: #### G LULS #### Point of Care testing , Glucose [Mass/Vol] 299 mg/dL [facility] Comment on above: Result Comment: Martha om Glucose Reference Range is dependent on time and content of last meal. Glucose of more than 200 mg/dL in a nonstressed, ambulatory subject supports the diagnosis of Diabetes Mellitus. Performed By: #### G LULS #### Point of Care testing , Commemt1 [facility] Comment on above: Result Comment: Glu2 : Will Repeat Test Performed By: #### G LULS #### Point of Care testing , Result Comment: Glu2 : WILL NOTIFY DR/RN Commemt2 Cleaned Meter [facility] Comment on above: Result Comment: PERF ORMED BY: [place] [address] PATHOLOGIST FLOOR ATTENDANT DOMINGA SOLIMAN M.D. Performed By: #### G LULS #### Point of Care testing , Glucose [Mass/Vol] 429 mg/dL Off scale high [facility] Comment on above: Result Comment: Martha om Glucose Reference Range is dependent on time and content of last meal. Glucose of more than 200 mg/dL in a nonstressed, ambulatory subject supports the diagnosis of Diabetes Mellitus. Performed By: #### G LULS #### Point of Care testing , Commemt1 Glu2: Cleaned Meter [facility] Comment on above: Performed By: #### P T, CBC, PTT #### [facility] [address] [place] [address]/RN Normal [facility] Comment on above: Performed By: #### G LULS #### Point of Care testing , Performed By: #### P T, CBC, PTT #### [address] Commemt3 Will Repeat Test [facility] Comment on above: Result Comment: PERF ORMED BY: [place] [address] PATHOLOGIST FLOOR ATTENDANT DOMINGA SOLIMAN M.D. Performed By: #### P T, CBC, PTT #### [address] Glucose [Mass/Vol] 429 mg/dL Off scale [facility] Comment on above: Result Comment: Martha Glucose Reference Range is dependent on time and content of last meal. Glucose of more than 200 mg/dL in a nonstressed, ambulatory subject supports the diagnosis of Diabetes Mellitus. Performed By: #### P T, CBC, PTT #### [address] Commemt1 Glu2: Cleaned Meter [facility] Comment on above: Result Comment: PERF ORMED BY: [place] [address] PATHOLOGIST FLOOR ATTENDANT DOMINGA SOLIMAN M.D. Performed By: #### G LULS #### Point of Care testing , Glucose [Mass/Vol] 373 mg/dL [facility] Comment on above: Result Comment: Martha om Glucose Reference Range is dependent on time and content of last meal. Glucose of more than 200 mg/dL in a nonstressed, ambulatory subject supports the diagnosis of Diabetes Mellitus. Performed By: #### G LULS #### Point of Care testing , Glucose [Mass/Vol] 261 mg/dL [facility] Comment on above: Result Comment: Martha om Glucose Reference Range is dependent on time and content of last meal. Glucose of more than 200 mg/dL in a nonstressed, ambulatory subject supports the diagnosis of Diabetes Mellitus. PERFORMED BY: [place] [address] PATHOLOGIST FLOOR ATTENDANT DOMINGA SOLIMAN M.D. Performed By: #### P T, CBC, PTT #### [address] Lipid Panelon 08-07-2020 Cholesterol [Mass/Vol] 201 mg/dL High 140-200 [facility] Comment on above: Result Comment: Chol less than 200 mg/dl low risk Chol 201-239 mg/dl borderline risk Chol 240 mg/dl and greater high risk Performed By: #### G LULS #### Point of Care testing , Cholesterol in HDL [Mass/Vol] 49 mg/dL Normal 35-85 [facility] Comment on above: Result Comment: HDL CHOL ATP-III CLASSIFICATION Cardiovascular Risk HDL > or equal to 60 mg/dL LOW HDL < 40 mg/dL HIGH Performed By: #### G LULS #### Point of Care testing , Cholesterol.total/Cho lesterol in HDL [Mass ratio] 4.1 {ratio} Normal <5.0 [facility] Comment on above: Result Comment: PERF ORMED BY: [place] [address] PATHOLOGIST FLOOR ATTENDANT DOMINGA SOLIMAN M.D. Performed By: #### G LULS #### Point of Care testing , LDL Cholesterol,Calculate d 127 mg/dL High 0-100 [facility] Comment on above: Result Comment: LDL [...] testing , VLDL CHOLESTEROL 25 mg/dL Normal [facility] Comment on above: Performed By: #### G LULS #### Point of Care testing , Magnesiumon 08-07-2020 Magnesium [Mass/Vol] 2.0 mg/dL Normal 1.6-2.6 [facility] Comment on above: Performed By: #### G LULS #### Point of Care testing , Partial Thromboplastin Timeo n 08-07-2020 aPTT Coag (Bld) [Time] 42.8 s High 25.1-36.5 [facility] Comment on above: Result Comment: PERF ORMED BY: [place] [address] PATHOLOGIST FLOOR ATTENDANT DOMINGA SOLIMAN M.D. Performed By: #### G LULS #### Point of Care testing , aPTT Coag (Bld) [Time] 33.2 s Normal 25.1-36.5 [facility] Comment on above: Result Comment: PERF ORMED BY: [place] [address] PATHOLOGIST FLOOR ATTENDANT DOMINGA SOLIMAN M.D. Performed By: #### P T, CBC, PTT #### [address] Prothrombin Time INRon 08-07 INR Coag (PPP) [Relative time] 1.0 {INR} Normal [facility] Comment on above: Result Comment: INR [...] Coag (PPP) [Time] 11.4 s Normal 9.0-12.9 [facility] Comment on above: Performed By: #### G LULS #### Point of Care testing , INR Coag (PPP) [Relative time] 1.0 {INR} Normal [facility] Comment on above: Result Comment: INR [...] P T, CBC, PTT #### [facility] [address] [place] [address] PT Coag (PPP) [Time] 11.2 s Normal 9.0-12.9 [facility] Comment on above: Performed By: #### P T, CBC, PTT #### [facility] [address] [place] [address] [place] Troponin I(TnI)on 08-07-2020 Troponin I.cardiac [Mass/Vol] 3.26 ng/mL Off scale high 0-0.02 [facility] Comment on above: Result Comment: KRISTI [place] Cut off value > or equal to 0.03 ng/mL in conjunction with clinical conditions of myocardial infarction. (www.escardio.org/guidelines) PERFORMED BY: [place] [address] PATHOLOGIST FLOOR ATTENDANT DOMINGA SOLIMAN M.D. Performed By: #### P T, CBC, PTT #### [facility] [address] [place] [address] [place] Troponin I.cardiac [Mass/Vol] 3.61 ng/mL Off scale high 0-0.02 [facility] Comment on above: Result Comment: KRISTI [place] Cut off value > or equal to 0.03 ng/mL in conjunction with clinical conditions of myocardial infarction. (www.escardio.org/guidelines) PERFORMED BY: [place] [address] PATHOLOGIST FLOOR ATTENDANT JIANLAN SUN M.D. Performed By: #### T ROP #### [facility] [address] [place] [address] Troponin I.cardiac [Mass/Vol] 4.39 ng/mL Off scale high 0-0.02 [facility] Comment on above: Result Comment: Resu lts called at 0009 on 08/07/20 KRISTI NC Cut off value > or equal to 0.03 ng/mL in conjunction with clinical conditions of myocardial infarction. (www.escardio.org/guidelines) PERFORMED BY: [place] [address] PATHOLOGIST FLOOR ATTENDANT DOMINGA SOLIMAN M.D. Performed By: #### P T, CBC, PTT #### [facility] [address] [place] [address] ECG 12 lead ECGon 08-06-2020 ECG 12 lead ECG [facility] [place] [address] [place] [address] Electrocardiograph Report Signed Patient: Lucila Tineo MR#: [id number] : 1950 Acct:[id number] Age/Sex: 70 / F ADM Date: 08/06/20 Loc: Room: [address] [place] [address] Type: ADM IN Attending Dr: Drew Patterson [...] Castillo MD 08/06/202110 Signed By: 08/07/20 1712 [facility] Vital Signs Date Time Vital Sign Value Performing Clinician Facility 12-08-2023 15:02-0400 Body height 162.6 cm Sonufaith Bruner DPM Work Phone: [facility] 12-08-2023 15:02-0400 Body mass index (BMI) [Ratio] 24.55 kg/m2 Sonu Arnulfo DPM Work Phone: [facility] 12-08-2023 15:02-0400 Body weight 64.86 kg Sonu Bruner DPM Work Phone: [facility] 12-04-2023 10:54-0400 Body height 162.6 cm Chyna Petznick DO Work Phone: [facility] 12-04-2023 10:54-0400 Body mass index (BMI) [Ratio] 24.55 kg/m2 Chyna Petznick DO Work Phone: [facility] 12-04-2023 10:54-0400 Body temperature 98.71 [degF] Chyna Petznick DO Work Phone: [facility] 12-04-2023 10:54-0400 Body weight 64.86 kg Chyna Petznick DO Work Phone: [facility] 12-04-2023 10:54-0400 Diastolic blood pressure 80 mm[Hg] Chyna Petznick DO Work Phone: [facility] 12-04-2023 10:54-0400 Heart rate 85 /min Chyna Petznick DO Work Phone: [facility] 12-04-2023 10:54-0400 SaO2% (BldA) [Mass fraction] 98 % Chyna Petznick DO Work Phone: [facility] 12-04-2023 10:54-0400 Systolic blood pressure 136 mm[Hg] Chyna Petznick DO Work Phone: [facility] 11-17-2023 15:01-0400 Body mass index (BMI) [Ratio] 24.55 kg/m2 Mily Andrade NP Work Phone: [facility] 11-17-2023 15:01-0400 Body temperature 97.5 [degF] Mily Albertok ANIMAL CONTROL SUPERVISOR Work Phone: [facility] 11-17-2023 15:01-0400 Body weight 64.86 kg Mily Albertok ANIMAL CONTROL SUPERVISOR Work Phone: [facility] 11-17-2023 15:01-0400 Diastolic blood pressure 84 mm[Hg] Mily Albertok ANIMAL CONTROL SUPERVISOR Work Phone: [facility] 11-17-2023 15:01-0400 Heart rate 88 /min Mily Albertok ANIMAL CONTROL SUPERVISOR Work Phone: [facility] 11-17-2023 15:01-0400 SaO2% (BldA) [Mass fraction] 96 % Mily Albertok ANIMAL CONTROL SUPERVISOR Work Phone: [facility] 11-17-2023 15:01-0400 Systolic blood pressure 134 mm[Hg] Mily Albertok ANIMAL CONTROL SUPERVISOR Work Phone: [facility] 07-07-2023 10:46-0400 Body height 162.6 cm Jah Sharpe MD Work Phone: [facility] 07-07-2023 10:46-0400 Body mass index (BMI) [Ratio] 23 kg/m2 Jah Sharpe MD Work Phone: [facility] 07-07-2023 10:46-0400 Body weight 60.78 kg Jah Sharpe MD Work Phone: [facility] 07-07-2023 10:46-0400 Diastolic blood pressure 52 mm[Hg] Jah Sharpe MD Work Phone: [facility] 07-07-2023 10:46-0400 Heart rate 85 /min Jah Sharpe MD Work Phone: [facility] 07-07-2023 10:46-0400 SaO2% (BldA) [Mass fraction] 96 % Jah Sharpe MD Work Phone: [facility] 07-07-2023 10:46-0400 Systolic blood pressure 123 mm[Hg] Jah Sharpe MD Work Phone: [facility] 03-06-2023 10:08-0500 Body height 162.6 cm Ange Gee MD Work Phone: [employer] 03-06-2023 10:08-0500 Body mass index (BMI) [Ratio] 25.23 kg/m2 Ange Gee MD Work Phone: [facility] [employer] 03-06-2023 10:08-0500 Body weight 66.68 kg Ange Gee MD Work Phone: [employer] 03-06-2023 10:08-0500 Diastolic blood pressure 80 mm[Hg] [facility] 03-06-2023 10:08-0500 Heart rate 87 /min Ange Gee MD Work Phone: [facility] [employer] 03-06-2023 10:08-0500 SaO2% (BldA) [Mass fraction] 94 % [facility] Gee MD [facility] 03-06-2023 10:08-0500 Systolic blood pressure 132 mm[Hg] [facility] [employer] 12-11-2021 11:20-0400 Body height 162.56 cm Mily Gaitanpatrick Work Phone: [facility] [place] [address] DO Work Phone: 12-11-2021 11:20-0400 Body mass index (BMI) [Ratio] 27.98 kg/m2 Mily Ashley [employer] [place] Work Phone: [facility] [address] DO Work Phone: 12-11-2021 11:20-0400 Body surface area Derived from formula 1.79 m2 Mily Ashley Andrade Work Phone: [facility] [facility] DO Work Phone: 12-11-2021 11:20-0400 Body weight 73.94 kg Mily A Andrade Work Phone: [facility] [facility] DO Work Phone: 12-11-2021 11:20-0400 Diastolic blood pressure 78 mm[Hg] Mily Ashley Andrade Work Phone: [facility] DO Work Phone: 12-11-2021 11:20-0400 Heart rate 76 /min Mily Ashley Andrade Work Phone: [facility] [facility] DO Work Phone: 12-11-2021 11:20-0400 Systolic blood pressure 136 mm[Hg] Mily Ashley Andrade Work Phone: [facility] [facility] DO Work Phone: 02-05-2021 11:35-0500 Body height 162.56 cm Mily Ashley Andrade Work Phone: [facility] [facility] DO Work Phone: 02-05-2021 11:35-0500 Body mass index (BMI) [Ratio] 28.67 kg/m2 Mily Ashley Andrade Work Phone: [facility] [facility] DO Work Phone: 02-05-2021 11:35-0500 Body surface area Derived from formula 1.81 m2 Mily Ashley Andrade Work Phone: [facility] [facility] DO Work Phone: 02-05-2021 11:35-0500 Body weight 75.75 kg Mily Ashley Andrade Work Phone: [facility] [facility] DO Work Phone: 02-05-2021 11:35-0500 Diastolic blood pressure 81 mm[Hg] Mily Ashley Andrade Work Phone: [facility] [facility] DO Work Phone: 02-05-2021 11:35-0500 Heart rate 77 /min Mily Gabi Andrade Work Phone: [facility] 250 DO Work Phone: 02-05-2021 11:35-0500 Systolic blood pressure 157 mm[Hg] Mily Gabi Andrade Work Phone: [facility] [facility] DO Work Phone: 12-04-2020 15:01-0400 Diastolic blood pressure 72 mm[Hg] Bruce Elias DO Work Phone: [facility] 600 DO Work Phone: 12-04-2020 15:01-0400 Systolic blood pressure 170 mm[Hg] Bruce Elias DO Work Phone: [facility] [facility] DO Work Phone: 12-04-2020 13:53-0400 Body height 162.56 cm Bruce Elias DO Work Phone: [facility] [facility] DO Work Phone: 12-04-2020 13:53-0400 Body mass index (BMI) [Ratio] 29.01 kg/m2 Bruce Elias DO Work Phone: [facility] 600 DO Work Phone: 12-04-2020 13:53-0400 Body surface area Derived from formula 1.82 m2 Bruce Elias DO Work Phone: [facility] [facility] DO Work Phone: 12-04-2020 13:53-0400 Body weight 76.66 kg Bruce Elias DO Work Phone: [facility] [facility] DO Work Phone: 12-04-2020 13:53-0400 Diastolic blood pressure 90 mm[Hg] Bruce Elias DO Work Phone: [facility] [facility] DO Work Phone: 12-04-2020 13:53-0400 Heart rate 68 /min Bruce Elias DO Work Phone: [facility] 600 DO Work Phone: 12-04-2020 13:53-0400 Systolic blood pressure 150 mm[Hg] Bruce Elias DO Work Phone: [facility] [facility] DO Work Phone: 11-06-2020 15:18-0400 70 1 Bruce Elias DO Work Phone: [facility] [facility] DO Work Phone: Comment on above: [id number] Encounters Encounter Date Encounter Type Care Provider Facility Start: 01-18-2024 End: 01-20-2024 Refill Corrie Coley MD Work Phone: [facility] Comment on above: Degeneration of lumb ar intervertebral disc Start: 01-12-2024 End: 01-12-2024 Bamboo flowsheet Hollie Gilbert DO Work Phone: [facility] Start: 01-12-2024 End: 01-12-2024 Bamboo flowsheet Hollie Iversonhler DO Work Phone: [facility] Start: 01-12-2024 End: 01-12-2024 ambulatory HOLLIE GILBERT Not Available Start: 01-08-2024 End: 01-08-2024 Telephone encounter Corrie Coley MD Work Phone: [facility] Start: 12-15-2023 End: 12-17-2023 Orders Only Corrie Coley MD Work Phone: [facility] Comment on above: Major depressive dis order, remission status unspecified, unspecified whether recurrent (CMS/HCC) (Primary Dx) Start: 12-11-2023 End: 12-11-2023 Clinisync Result Encounter Yadira Lupe ANIMAL CONTROL SUPERVISOR Work Phone: [facility] Unsolicited Start: 12-11-2023 End: 12-11-2023 Clinisync Result Encounter Yadira Andrade ANIMAL CONTROL SUPERVISOR Work Phone: [facility] Unsolicited Start: 12-10-2023 End: 12-10-2023 Telephone encounter Chyna Luna DO Work Phone: [facility] Start: 12-08-2023 End: 12-08-2023 Office outpatient new 30 minutes Sonu Bruner DPM Work Phone: [facility] Comment on above: Lymph node enlargeme [...] flowsheet Chyna Luna DO Work Phone: [facility] Start: 12-04-2023 End: 12-04-2023 Bamboo flowsheet Chyna Luna DO Work Phone: [facility] Start: 12-04-2023 End: 12-04-2023 Telephone encounter Chyna Luna DO Work Phone: [facility] Start: 12-04-2023 End: 12-04-2023 Office outpatient visit 25 minutes Chyna Luna DO Work Phone: [facility] 230 Comment on above: Type 1 diabetes clarita itus with other circulatory complications (CMS/HCC) (Primary Dx); Type 1 diabetes mellitus with hyperglycemia (HCC) (CMS/HCC); Type 1 diabetes mellitus with hypoglycemia and without coma (CMS/HCC) Start: 12-04-2023 End: 12-04-2023 ambulatory Jah Sharpe MD Work Phone: [facility] Comment on above: Unruptured Aneurysm Start: 12-02-2023 End: 12-02-2023 Telephone encounter Jah Sharpe MD Work Phone: [facility] Comment on above: Medication Question Paroxysmal atrial fi brillation (CMS/HCC) (Primary Dx) Start: 11-17-2023 End: 11-17-2023 ambulatory MILY ANDRADE Not Available Start: 11-17-2023 End: 11-17-2023 Office outpatient visit 25 minutes Mily Andrade ANIMAL CONTROL SUPERVISOR Work Phone: [facility] Comment on above: [...] [facility] Comment on above: Received Outside [facility] [employer] Records (Rec'd lab report from [employer] imported into [employer]./) Start: 07-14-2023 Telephone encounter Jah Sharpe MD [...] Start: 07-07-2023 End: 07-07-2023 ambulatory MILY ANDRADE Facility:[facility] Start: 07-07-2023 End: 07-07-2023 Patient encounter procedure Jah Sharpe MD Work Phone: [facility] Comment on above: Unruptured cerebral aneurysm (Primary Dx); Hypertension, unspecified type; Hyperlipidemia, unspecified hyperlipidemia type; Atrial fibrillation, unspecified type (HCC); Ischemic stroke (HCC) Start: 07-07-2023 End: 07-07-2023 ambulatory MILY ANDRADE Facility:[facility] Start: 07-07-2023 End: 07-07-2023 Subsequent hospital visit by physician Ct 2 Main Qb (I-Stat) Radiology Comment on above: Nonruptured cerebral aneurysm [I67.1] Start: 06-25-2023 End: 06-25-2023 ambulatory [facility] Start: 04-29-2023 Telephone encounter Yeni Pfeiffer [facility] Comment on above: Calcified granuloma of lung (CMS-HCC) (Primary Dx) Start: 04-21-2023 End: 04-21-2023 ambulatory MILY ANDRADE Not Available Start: 04-14-2023 Clinisync Result Encounter Radha Herrera MD Work Phone: [facility] Unsolicited Start: 04-14-2023 Clinisync Result Encounter Radha Herrera MD Work Phone: [facility] Unsolicited Start: 03-25-2023 End: 03-25-2023 Emergency department patient visit EDWARD CHRISTINE Facility:[facility] Start: 03-25-2023 End: 03-25-2023 ambulatory MILY ANDRADE Facility:[facility] Start: 03-06-2023 End: 03-06-2023 ambulatory ANGE GEE [facility] Start: 03-06-2023 End: 03-06-2023 Office outpatient visit 25 minutes Ange Gee MD Work Phone: [facility] Comment on above: Essential hypertensi on (Primary Dx); Paroxysmal atrial fibrillation (CMS-HCC) Start: 03-05-2023 Telephone encounter Corrie Goldstein [facility] Start: 03-02-2023 ambulatory [facility] Start: 03-01-2023 ambulatory [facility] Start: 01-20-2023 ambulatory Jah Sharpe MD Work Phone: [facility] Comment on above: Anticoag Start: 01-16-2023 ambulatory Jah Sharpe MD Work Phone: [facility] Comment on above: Images Start: 01-02-2023 Telephone encounter Jah Sharpe MD Work Phone: [facility] Comment on above: 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 Care 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 - O ther Start: 12-16-2022 End: 12-16-2022 ambulatory Jah Sharpe MD Work Phone: [facility] Comment on above: Unruptured cerebral aneurysm (Primary Dx); Ischemic stroke (HCC); Hypertension, unspecified type; Hyperlipidemia, unspecified hyperlipidemia type; Smoking Start: 12-16-2022 End: 12-16-2022 Telemedicine consultation with patient Jah Sharpe MD Work Phone: [facility] Start: 12-04-2022 Telephone encounter Neurology Provid er [facility] Comment on above: Future Appointment ( New [place], [place], Any) Start: 06-26-2023 Rx Renewal Mily A Andrade Work Phone: [facility] DO Work Phone: Start: 01-07-2022 Rx Renewal Mily Ashley Andrade Work Phone: [facility] [facility] DO Work Phone: Start: 12-11-2021 Office outpatient vi sit 15 minutes Mily Ashley Andrade Work Phone: [facility] [facility] DO Work Phone: Start: 12-11-2021 ambulatory Ms. Mily ramos Andrade Facility: Start: 10-11-2021 Telephone encounter Mily Ashley Andrade Work Phone: [facility] DO Work Phone: Start: 09-03-2021 Rx Renewal Mily Ashley Andrade Work Phone: [facility] DO Work Phone: Start: 02-05-2021 Office outpatient vi sit 10 minutes Mily Ashley Andrade Work Phone: [facility] [facility] DO Work Phone: Start: 02-05-[address] [facility] Start: 12-04-2020 Patient encounter procedure Bruce Elias DO Work Phone: [facility] 600 DO Work Phone: Start: 09-05-2020 End: 03-06-2021 ambulatory SALAS KIRKPATRICK Facility:[facility] Echocardiogram normal Mily Ashley Andrade Work Phone: [facility] DO Work Phone: Procedures Date Procedure Procedure Detail Performing Clinician Start: 01-12-2024 Oph bmtry prtl coher intrfrmtry io lens pwr agustina Gilbert DO Work Phone: Start: 01-12-2024 End: 01-12-2024 Ophth medical xm&eval comprhnsv estab pt 1/> Age-related nuclear cataract of both eyes Holliehardik Gilbert DO Work Phone: Comment on above: Age-related nuclear cataract of both eyes (Primary Dx); 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 Start: 12-11-2023 [facility] UA (CLEAN/CATCH) MICROSCOPIC IF INDICATE Yadira Andrade ANIMAL CONTROL SUPERVISOR Work Phone: Start: 11-17-2023 Dup-scan xtr veins unilateral/limited study Mily Andrade ANIMAL CONTROL SUPERVISOR Work Phone: Start: 11-17-2023 Culture bacterial quanttative colony count urine Mily Andrade ANIMAL CONTROL SUPERVISOR Work Phone: Start: 11-17-2023 Urnls dip stick/tabl et rgnt non-auto w/o micrscp Mily Andrade ANIMAL CONTROL SUPERVISOR Work Phone: Start: 11-17-2023 Hemoglobin glycosyla adarsh a1c Mily Andrade ANIMAL CONTROL SUPERVISOR Work Phone: Start: 07-07-2023 Ct angiography head w/contrast/noncontrast Jeffery Gordon APRN.ORDER ANALYST Work Phone: Start: 07-07-2023 Creatinine [Mass/vol ume] in Serum or Plasma [facility] Provider Start: 04-14-2023 [facility] UA (CLEAN/CATCH) SPINNING MACHINE OPERATOR/MICRO IF IND. Radha Herrera MD Work Phone: Start: 04-14-2023 TB URINE MICROSCOPI C ONLY Radha Herrera MD Work Phone: Start: 03-06-2023 Follow-up visit Follow-up ANGE GEE Start: 04-24-2022 Mammography Radha Herrera MD Work Phone: Start: 06-05-2016 Colonoscopy Radha Herrera MD Work Phone: Appendectomy Bruce Elias DO Work Phone: Decompression of med estuardo nerve Bruce Elias DO Work Phone: Excision of cyst Bruce zambrano DO Work Phone: Hysterectomy Bruce Elias DO Work Phone: Ligation of fallopia n tube Bruce Elias DO Work Phone: Percutaneous translu darryl coronary angioplasty Bruce Elias DO Work Phone: Tonsillectomy Bruce ramos DO Work Phone: Total colonoscopy Bruce robin DO Work Phone: Plan of Treatment Date Care Activity Detail Author Start: 06-09-2028 DTaP,Tdap and Td Vaccines (2 - Td or Tdap) DTaP,Tdap and Td Vaccines (2 - Td or Tdap) [facility] Start: 06-09-2028 Urine microalbumin profile DTaP,Tdap,Td Vaccine (2 - Td or Tdap) [facility] Start: 06-05-2026 Screening for malign ant neoplasm of colon [facility] Start: 01-16-2026 Diabetes Screening Diabetes Screenin g [facility] Start: 01-11-2026 Glaucoma screening Diabetes: R etinopathy Screening [facility] Start: 12-03-2025 Glaucoma screening Diabetes: R etinopathy Screening [facility] Start: 12-26-2024 Glaucoma screening Diabetes: R etinopathy Screening [facility] Start: 07-06-2024 BP Controlled (<130/80) BP Controlle d (<130/80) [facility] Start: 03-11-2024 End: 03-11-2024 Patient encounter procedure 03/11/2024 10:15 AM EST Office Visit [facility] [address] [place] [address] Chyna Luna DO [address] [place] [address] [facility] Start: 03-06-2024 Adult BMI Screening Adult BMI Screen ing [facility] Start: 03-06-2024 Tobacco Screening Tobacco Screening [facility] Start: 02-16-2024 Hemoglobin A1c measurement Diabetes: Hemoglobin A1C [facility] Start: 02-09-2024 End: 02-09-2024 Patient encounter procedure 02/09/2024 1:00 PM EST Office Visit [facility] [address] [place] [phone] Hollie Gilbert, DO [address] [place] [address] [facility] Start: 01-27-2024 End: 01-27-2024 Patient encounter procedure 01/27/2024 2:00 PM EST Office Visit [facility] [address] [place] [address] Hollie Gilbert, DO [address] [place] [address] [facility] Start: 01-22-2024 Adult BMI Screening Adult BMI Screen [facility] Start: 01-19-2024 Tobacco Screening Tobacco Screening [facility] Start: 01-12-2024 End: 01-12-2024 Patient encounter procedure 01/12/2024 1:00 PM EST Office Visit [facility] [address] [place] [address] Hollie Gilbert, DO [address] [place] [address] [facility] Start: 01-09-2024 End: 01-09-2024 Patient encounter procedure 01/09/2024 9:00 AM EST Office Visit [facility] [address] [place] [phone] Mily Andrade NP [address] [place] [address] [facility] Start: 12-08-2023 End: 12-08-2023 Patient encounter procedure 12/08/2023 3:15 PM EDT Office Visit [facility] [address] [place] [phone] Sonu Burner DPM [address] [place] [address] [facility] Start: 12-04-2023 End: 03-04-2024 CREATININE BLD CREATININE BLD Lab Routine Nonruptured cerebral aneurysm Expected: 12/04/2023, Expires: 03/04/2024 [facility] Comment on above: Expected: 12/04/2023 , Expires: 03/04/2024 Start: 12-04-2023 End: 12-04-2023 Patient encounter procedure [facility] 230 Comment on above: Diabetic ketoacidosi s without coma associated with type 2 diabetes mellitus ([facility]) Start: 12-02-2023 Urine screening for protein Diabetes: Urine Protein Screening [facility] Start: 11-01-2023 Covid-19 Vaccine ( season) Covid-19 Vaccine () [facility] Start: 11-01-2023 Influenza vaccination [facility] Start: 08-06-2023 Subsequent hospital visit by physician 08/06/2023 Hospital Encounter Angio [address] [place] [address] Jah Sharpe MD [address] [place], [place] [id number] Unruptured cerebral aneurysm [I67.1] Angio Comment on above: Unruptured cerebral aneurysm [I67.1] Start: 07-17-2023 Hemoglobin A1c measurement HbA1C [facility] Start: 07-13-2023 End: 10-12-2023 aPTT in Platelet poor plasma by Coagulation assay ACTIVATED PARTIAL THROMBOPLASTIN TIME Lab Routine Unruptured cerebral aneurysm Encounter for monitoring antiplatelet therapy Expected: 07/13/2023, Expires: 10/12/2023 [facility] Comment on above: Expected: 07/13/2023 , Expires: 10/12/2023 Start: 07-13-2023 End: 10-12-2023 Basic metabolic 2000 panel - Serum or Plasma BASIC METABOLIC PANEL Lab Routine Unruptured cerebral aneurysm Expected: 07/13/2023, Expires: 10/12/2023 [facility] Comment on above: Expected: 07/13/2023 , Expires: 10/12/2023 Start: 07-13-2023 End: 10-12-2023 CBC panel - Blood by Automated count COMPLETE BLOOD COUNT Lab Routine Unruptured cerebral aneurysm Expected: 07/13/2023, Expires: 10/12/2023 [facility] Work Phone: Comment on above: Expected: 07/13/2023 , Expires: 10/12/2023 Start: 07-13-2023 End: 10-12-2023 PT panel - Platelet poor plasma by Coagulation assay PROTHROMBIN TIME Lab Routine Unruptured cerebral aneurysm Encounter for monitoring antiplatelet therapy Expected: 07/13/2023, Expires: 10/12/2023 [facility] Comment on above: Expected: 07/13/2023 , Expires: 10/12/2023 Start: 06-25-2023 End: 06-25-2023 Patient encounter procedure 06/25/2023 2:00 PM EDT Office Visit [facility] [address] [place] [phone] [place] [address] [place], [place] [phone] [facility] Start: 05-17-2023 Urine screening for protein Diabetes: Urine Protein Screening [facility] Start: 04-24-2023 Screening for malign ant neoplasm of breast [facility] Start: 04-21-2023 End: 04-21-2023 Patient encounter procedure 04/21/2023 3:00 PM EST Office Visit [facility] [address] [place] [phone] Mily Andrade NP [address] [place], [place] [phone] [facility] Start: 04-16-2023 Medicare Annual Well ness (AWV) Medicare Annual Wellness (AWV) [facility] Start: 03-06-2023 End: 03-06-2023 Patient encounter procedure 03/06/2023 10:15 AM EST Office Visit [facility] [address] [place] [address] Ange Gee MD [address] [place] [address] [facility] Start: 03-02-2023 Advance Directive Discussion Advance Directive Discussion [facility] Start: 03-02-2023 Behavioral Health Screening Behavioral Health Screening [facility] Start: 12-11-2022 FUV, Provider: Bruce Elias, Status: Pen, Time: 10:20 AM FUV, Provider: Bruce Elias, Status: Pen, Time: 10:20 AM [facility] 250 DO Work Phone: Start: 10-31-2022 Covid-19 Vaccine ( season) Covid-19 Vaccine () [facility] Start: 10-31-2022 Influenza vaccination [facility] Start: 06-11-2022 Hemoglobin A1c measurement Diabetes: Hemoglobin A1C [facility] Start: 03-02-2022 Advance Directive Discussion Advance Directive Discussion [facility] Start: 03-02-2022 Depression Assessment Depression Ass essment [facility] Start: 12-11-2021 FUV, Provider: Bruce Elias, Status: Pen, Time: 11:20 AM FUV, Provider: Bruce Elias, Status: Pen, Time: 11:20 AM [facility] 600 DO Work Phone: Start: 02-19-2021 NURSEVST, Provider: DAVID LANDEROS LENS ASSORTER 1,[id number], Status: Pen, Time: 11:00 AM NURSEVST, Provider: DAVID LANDEROS LENS ASSORTER 1,[id number], Status: Pen, Time: 11:00 AM [facility] 250 DO Work Phone: Start: 01-09-2021 FUV, Provider: Salas Wilson, Status: Pen, Time: 1:30 PM FUV, Provider: Salas Wilson, Status: Pen, Time: 1:30 [facility] Work Phone: Start: 04-03-2020 Administration of varicella zoster vaccine Zoster (Shingles) Vaccine (2 of 2) [facility] Start: 04-03-2020 Shingrix Vaccine (2 of 2) Shingrix Vaccine (2 of 2) [facility] Start: 2015 Bone Density Screening Bone Density Screening [facility] Start: 2015 Fall Risk Screening Fall Risk Screen ing [facility] Start: 2010 RSV Vaccine (1 - 1-d ose 60+ series) RSV Vaccine (1 - 1-dose 60+ series) [facility] Start: 2010 RSV Vaccine (1 - Ris k 60-74 years 1-dose series) RSV Vaccine (1 - Risk 60-74 years 1-dose series) [facility] Start: 02-22-2000 Screening for malign ant neoplasm of lung Lung Cancer Screening [facility] Start: 02-22-2000 Shingrix Vaccine (1 of 2) Shingrix Vaccine (1 of 2) [facility] Start: 1995 Cologuard (FIT-DNA) Cologuard (FIT-D NA) [facility] Start: 1995 Colonoscopy Colonoscopy [facility] Start: 1995 Colorectal Cancer Screening Colorectal Cancer Screening [facility] Start: [address] COLONOGRAPHY [facility] Start: 1995 Diabetes Screening Diabetes Screenin g [facility] Start: 1995 Fecal Occult Blood Fecal Occult Bloo d [facility] Start: 1995 Lipid 1996 panel - S lilliam or Plasma Lipid Screening [facility] Start: 1995 Screening for malign ant neoplasm of colon [facility] Start: 1995 SIGMOIDOSCOPY SIGMOIDOSCOPY [facility] Start: 1990 Mammography Mammogram Screening [facility] Start: 1969 Urine microalbumin profile DTaP,Tdap,Td Vaccine (1 - Tdap) [facility] Start: 02-22-1968 Adult BMI Follow Up Plan Adult BMI F ollow Up Plan [facility] Start: 02-22-1968 Annual PCP Team Tooling Supervisor dorina Disease Visit Annual PCP Team Chronic Disease Visit [facility] Start: 02-22-1968 Anxiety Screening Anxiety Screening [facility] Start: 02-22-1968 Depression Screening Depression Scre ening [facility] Start: 02-22-1968 Diabetic foot examination Diabetic Foot Exam [facility] Start: 02-22-1968 Hepatitis B surface antibody level LDL Cholesterol [facility] Start: 02-22-1968 Hepatitis C Screening Hepatitis C [facility] Start: 02-22-1968 Hepatitis C screening Hepatitis C [facility] Start: 1962 Depression Screening Depression Scre ening [facility] Start: 02-22-1960 Diabetic foot examination Diabetic Foot Exam [facility] Start: 02-22-1960 Glaucoma screening Dilated Retinal E xam [facility] Start: 02-22-1960 Hepatitis B screening Urine Al bumin:Creatinine Ratio [facility] Start: 02-22-1956 Pneumococcal Vaccine : 65+ (1 - PCV) Pneumococcal Vaccine: 65+ (1 - PCV) [facility] Start: 1950 Glaucoma screening Diabetic Op hthalmology Exam [facility] Start: 1950 Medicare Annual Well ness Visit Medicare Annual Wellness Visit [facility] Start: 1950 Screening for malign ant neoplasm of colon [facility] Start: 1950 Tobacco Counseling Tobacco Counselin g [facility] Start: 1950 Urine screening for protein Urine Microalbumin [facility] End: 01-02-2025 CTA Head vessels WO and W contrast IV CTA HEAD WO/W IVCON Radiology Routine Nonruptured cerebral aneurysm 1 Occurrences starting 12/04/2023 until 01/02/2025 [facility] Work Phone: Comment on above: 1 Occurrences starti ng 12/04/2023 until 01/02/2025 IR CEREBRAL ARCH & T HREE VESSEL IR CEREBRAL ARCH & THREE VESSEL Radiology Routine Unruptured cerebral aneurysm Ordered: 07/13/2023 [facility] Comment on above: Ordered: 07/13/2023 End: [...] RADIOLOGICAL SUPERVISION AND INTERPRETATION Unruptured cerebral aneurysm [facility] Immunizations Immunization Date Immunization Notes Care Provider [facility] 05-16-2022 influenza, injectabl e, quadrivalent, preservative free Chyna Luna DO Work Phone: [facility] 05-16-2022 influenza virus vaccine, unspecified formulation Jah Sharpe MD Work Phone: [facility] 04-10-2021 Moderna COVID-19 Vaccine 100 MCG/0.5ML Intramuscular Suspension Mily Andrade Work Phone: [facility] 250 DO Work Phone: 05-09-2020 Lico COVID-19 Vaccine 0.5 ML Intramuscular Suspension Bruce Elias DO Work Phone: [facility] 02-07-2020 influenza, high dose seasonal, preservative-free Bruce Elias DO Work Phone: [facility] 600 DO Work Phone: 02-07-2020 zoster vaccine recombinant Bruce Elias DO Work Phone: [facility] 600 DO Work Phone: 02-07-2020 influenza virus vaccine, unspecified formulation Neurology Provider [facility] 02-07-2020 zoster vaccine, unspecified formulation Corrie Goldstein [facility] 03-02-2019 influenza, seasonal, injectable Bruce Elias DO Work Phone: [facility] 600 DO Work Phone: 02-14-2019 influenza, high dose seasonal, preservative-free Bruce Elias DO Work Phone: [facility] 600 DO Work Phone: 06-09-2018 tetanus toxoid, redu clif diphtheria toxoid, and acellular pertussis vaccine, adsorbed Bruce Elias DO Work Phone: [facility] 600 DO Work Phone: 03-02-2018 pneumococcal polysaccharide vaccine, 23 valent Bruce Elias DO Work Phone: [facility] 600 DO Work Phone: 12-02-2017 influenza, high dose seasonal, preservative-free Bruce Elias DO Work Phone: [facility] 600 DO Work Phone: 02-25-2017 influenza, high dose seasonal, preservative-free Bruce Elias DO Work Phone: [facility] 600 DO Work Phone: 02-17-2017 pneumococcal polysaccharide vaccine, 23 valent Bruce Elias DO Work Phone: [facility] 600 DO Work Phone: 11-06-2015 influenza, injectabl e, quadrivalent, contains preservative Bruce Elias DO Work Phone: [facility] 600 DO Work Phone: 11-06-2015 influenza, injectabl e, quadrivalent, preservative free Chyna Luna DO Work Phone: [facility] 11-06-2015 pneumococcal conjuga te vaccine, 13 valent Bruce Elias DO Work Phone: [facility] 600 DO Work Phone: 12-11-2014 seasonal influenza, intradermal, preservative free Chyna Petznick DO Work Phone: [facility] 11-30-2014 influenza, seasonal, injectable, preservative free Chyna Petlisetteick DO Work Phone: [facility] 12-15-2013 influenza, seasonal, injectable Bruce Elias DO Work Phone: [facility] 600 DO Work Phone: 12-21-2012 influenza, seasonal, injectable Bruce Elias DO Work Phone: [facility] 600 DO Work Phone: 12-16-2006 pneumococcal polysaccharide vaccine, 23 valent Bruce Elias DO Work Phone: [facility] 600 DO Work Phone: 11-18-2006 pneumococcal polysaccharide vaccine, 23 valent Bruce Elias DO Work Phone: [facility] 600 DO Work Phone: Payers Date Payer Category Payer Medicaid [id number] 2023 Medicaid [id number] 2023 Medicaid [id number] 2015 Medicare [id number] 2015 Medicare [id number] 1959 Medicare [id number] 1950 Unknown [id number] 2.16.84 [id number] 1950 Unknown [id number] 2.16. [id number] 1950 Unknown [id number] 2.16. [id number] 1950 Unknown [id number] 2.16.84 [id number] 1950 Unknown [id number] 2.16.8 [id number] 1950 Unknown [id number] 2.16.84 [id number] 1950 Unknown [id number] 2.16.84 [id number] 1950 Unknown [id number] 2.16.84 [id number] 1950 Unknown [id number] 2.16.84 [id number] 1950 Unknown [id number] 2.16.84 [id number] 1950 Unknown [id number] 2.16.84 [id number] 1950 Unknown [id number] 2.16.84 [id number] 1950 Unknown [id number] 2.16.84 [id number] 1950 Unknown [id number] 2.16.84 [id number] 1950 Unknown [id number] 2.16.84 [id number] Unknown Social History Date Type Detail Facility Start: 10-14-2018 End: 11-17-2023 No alcohol use No alcohol use [facility] Comment on above: 1 TEA DAILY; 1/2 PPD; Start: 10-14-2018 End: 03-25-2023 Tobacco smoking status NHIS Smokes tobacco daily [facility] Start: 03-02-1989 History of tobacco use Cigarette Smo ker [facility] Start: 10-14-2018 End: 01-12-2024 Tobacco use and exposure Smokeless tobacco non-user [facility] Start: 04-21-2019 End: 11-17-2023 Tobacco use panel [facility] National Score (1-10 0), lower number is lower risk Not on file [facility] Start: 1950 Sex Assigned At Female [facility] Start: 05-14-2022 Gender identity Identifies as female gender (finding) [facility] Start: 12-09-2022 Sexual orientation Heterosexual (fin ding) [facility] Start: 01-18-2023 End: 03-06-2023 Alcohol intake Ex-drinker (finding) [facility] Start: 1950 Sex Assigned At Not on file [facility] Start: 12-26-2022 End: 01-12-2024 Tobacco smoking status MDIS Ex-smoker [facility] Start: 03-02-1989 History of tobacco use Current smoke r [facility] Start: 12-02-2023 End: 01-12-2024 Alcoholic beverage intake Lifetime non-drinker (finding) [facility] Start: 11-17-2023 Alcohol Comment caffeine: 2-3 cups per day [facility] How often to you hav e a drink containing alcohol? Never [facility] Medical Equipment Procedure Code Equipment Code Equipment Origin al Text Equipment Identifier Dates Inject 1 each un chano the skin in the morning and 1 each in the evening and 1 each before bedtime. [id number] Start: 07-22-2022 Goals Date Patient Goal Desired Activity /State Personal health goal Comment on above: Formatting of this n ote might be different from the original. Evaluation of progress towards goal: In progress: Return to [place]. Personal health goal Clinical Notes 12-08-2022 to 01-12-2024 Hollie Gilbert DO - 01/12/2024 1:00 PM ESTTelephone Encounter - Floerntin Russ - 01/08/2024 10:20 AM ESTTelephone Encounter - Florentin Jeb - 01/08/2024 10:20 AM Jah Hui MD - 12/16/2022 1:06 PM EDT Note Date & Type Note Facility 01-12-2024 History of Present illness Narrative Images from the original note were not included. Subjective Patient ID: Lucila Tineo is a 73 y.o. female. Chief Complaint Cataract HPI Cataract In both eyes. Associated symptoms include blurred vision, glare and a need for brighter lights. Severity is moderate. Onset was gradual. Duration of 7 months. Frequency is constant. Context: distance vision, mid-range vision, near vision, reading, watching TV, computer work and dim lighting. Since onset it is gradually worsening. Affected activities include reading, working on the computer, watching TV and daily activities. Treatments tried include glasses. Response to treatment was no improvement. Comments Pt was referred by Dr. Qiu for Cataract Evaluation. No pain, dryness, vision has gradually delcined over the past 7 months, seeing glare around lights, not using drops. pt is diabetic. Last A1C 8.7 last BG 182 current. -latex -pm/df -flomax Last edited by THAI Estevez on 01/12/2024 1:29 PM. Current Outpatient Medications (Ophthalmic Agents) Medication Sig Dispense Refill ketorolac (Acular) 0.5 % ophthalmic solution Administer 1 drop into affected eye(s) in the morning and 1 drop before bedtime. 5 mL 1 ofloxacin (Ocuflox) 0.3 % ophthalmic solution Administer 1 drop into affected eye(s) 5 (five) times a day for 1 day Starting 1 day before surgery, continue after surgery as directed 5 mL 1 prednisoLONE acetate (Pred-Forte) 1 % ophthalmic suspension Administer 1 drop into affected eye(s) in the morning and 1 drop at noon and 1 drop in the evening and 1 drop before bedtime. Do all this for 14 days. 5 mL 1 No current facility-administered medications for this visit. (Ophthalmic Agents) Current Outpatient Medications (Other) Medication Sig Dispense Refill Aspirin Low Dose 81 MG EC tablet fluconazole (Diflucan) 150 MG tablet insulin glargine-yfgn (Semglee-yfgn) 100 UNIT/ML pen insulin lispro (HumaLOG) 100 UNIT/ML injection Lantus SoloStar 100 UNIT/ML pen Lidocaine Pain Relief 4 % patch meloxicam (Mobic) 7.5 MG tablet nitrofurantoin, macrocrystal-monohydrate, (Macrobid) 100 MG capsule ondansetron ODT (Zofran-ODT) 4 MG disintegrating tablet potassium chloride CR (Klor-Con M20) 20 MEQ ER tablet Senna-Time 8.6 MG tablet acetaminophen (Tylenol) 325 MG tablet amLODIPine (Norvasc) 5 MG tablet Take 5 mg by mouth in the morning. Anti-Diarrheal 2 MG tablet ASPIRIN 81 MG chewable tablet Chew Daily atorvastatin (Lipitor) 40 MG tablet 1 (one) time each day at the same time. Continuous Glucose Packing Tractor Machine Operator (FreeStyle Shaina 2 [place]) device 1 each See administration instructions 1 each 0 Continuous Glucose Packing Tractor Machine Operator (FreeStyle Shaina 3 [place]) device 1 Device See administration instructions 1 each 0 Continuous Glucose Sensor (FreeStyle Shaina 2 Sensor) misc Wear subcutaneous daily every 14 days 6 each 3 Continuous Glucose Sensor (FreeStyle Shaina 3 Plus Sensor) misc 1 each See administration instructions 6 each 3 D3-1000 25 MCG (1000 UT) capsule insulin glargine (Lantus) 100 UNIT/ML injection Injection subcutaneous 12 in the am and 7 units at night 10 mL 3 insulin lispro (HumaLOG) 100 unit/ml injection Injection subcutaneous 6 units breakfast/lunch, 8 units dinner plus correction 1:100 > 150 mg/dl (max daily 50 units) 10 mL 3 Insulin Syringe 31G X 5/16 0.3 ML misc Inject 1 each under the skin in the morning and 1 each in the evening and 1 each before bedtime. 300 each 3 levothyroxine (Synthroid) 150 MCG tablet Take by mouth Daily before meals ondansetron (Zofran) 4 MG tablet Take 4 mg by mouth every 8 (eight) hours if needed Oyster Shell Calcium 500 MG tablet 2 (two) times a day potassium chloride ER (Micro-K) 10 MEQ ER capsule Take 40 mEq by mouth Daily pregabalin (Lyrica) 25 MG capsule Take 1 capsule (25 mg) by mouth in the morning and 1 capsule (25 mg) before bedtime. 60 capsule 1 rivaroxaban (Xarelto) 20 MG tablet Take 1 tablet (20 mg) by mouth in the evening. Take with meals Take with food. 90 tablet 1 rOPINIRole (Requip) 0.5 MG tablet Take 0.5 mg by mouth at bedtime senna-docusate sodium (Senokot-S) 8.6-50 MG tablet Take 1 tablet by mouth Daily venlafaxine XR (Effexor XR) 37.5 MG 24 hr capsule Take 1 capsule (37.5 mg) by mouth in the morning. Take with meals. 90 capsule 0 Current Facility-Administered Medications (Other) Medication Dose Route Frequency Provider Last Rate Last Admin FreeStyle Shaina 2 Sensor misc 1 each 1 each Does not apply Daily Mily Andrade NP Past Medical History: Diagnosis Date AAA (abdominal aortic aneurysm) ([facility]) Arthritis Basal cell carcinoma Bilateral biceps tendonitis Carpal tunnel syndrome Cataract Coronary artery disease ([facility]) COVID-19 Diabetes mellitus ([facility]) Disease of thyroid gland ([facility] DM (diabetes mellitus) ([facility] Epidermal cyst of neck Hypercholesteremia ([facility]) Hyperlipidemia ([facility]) Hypertension ([facility] Hypothyroidism ([facility] [facility]) Left knee pain snf (current) use of insulin ([facility]) Neck mass PAD (peripheral artery disease) ([facility]) Personal history of other malignant neoplasm of skin Right ankle pain Shingles Shoulder pain Skin cyst Stroke ([facility]) 09/2022 Tobacco dependence Type 2 diabetes mellitus without complications ([facility]) Venous insufficiency of leg Allergies Allergen Reactions Penicillins Hives Other Reaction(s): Hives Review of Systems Constitutional: Negative. HENT: Negative. Eyes: Negative. Respiratory: Negative. Cardiovascular: Negative. Gastrointestinal: Negative. Genitourinary: Negative. Musculoskeletal: Negative. Skin: Negative. Neurological: Negative. Psychiatric/Behavioral: Negative. Hematological: Negative. Endocrine: Negative. Allergic/Immunologic: Negative. Objective Base Eye Exam Visual Acuity (Snellen - Linear) Right Left Dist cc 20/50 -2 20/100 -2 Correction: Glasses Tonometry (Applanation, 1:43 PM) Right Left Pressure 16 16 Pupils Pupils Right PERRL Left PERRL Visual Corona Left Right Full Full Extraocular Movement Right Left Full Full Neuro/Psych Oriented x3: Yes Dilation Both eyes: 1.0% Mydriacyl @ 1:30 PM Additional Tests Keratometry K1 [place] K2 [place] Right 40.75 093 43.75 003 Left 40.25 092 43.75 002 Glare Testing High Right 20/100 Left 20/400 Slit Lamp and Fundus Exam External Exam Right Left External Brow ptosis, Rosacea Brow ptosis, Rosacea Slit Lamp Exam Right Left Lids/Lashes Blepharitis, Dermatochalasis - upper lid, Ptosis Blepharitis, Dermatochalasis - upper lid, Ptosis Conjunctiva/Sclera White and quiet White and quiet Cornea Anterior basement membrane dystrophy, decreased tear film Anterior basement membrane dystrophy, decreased tear film Anterior Chamber Deep and quiet Deep and quiet Iris Round and reactive Round and reactive Lens 3+ Nuclear sclerosis, 1+ Cortical cataract 3+ Nuclear sclerosis, 1+ Cortical cataract Anterior Vitreous Normal Normal Fundus Exam Right Left Disc Normal Normal Macula Normal Normal Vessels Normal Normal Periphery Normal Normal Refraction Wearing Rx Sphere Cylinder [place] Add Right +0.25 -3.50 095 +2.25 Left +0.50 -3.25 092 +2.25 Manifest Refraction (Auto) Sphere Cylinder [place] Right +1.75 -5.00 089 Left +2.50 -5.00 087 Final Rx Sphere Cylinder [place] Dist VA Right +1.00 -5.00 090 20/50 Left +2.00 -5.00 088 20/70 Expiration Date: 01/11/2025 Assessment/Plan Age-related nuclear cataract of both eyes - Visually Significant Cataract, OU: I discussed the risks, benefits, alternatives, and expectations of cataract surgery. A complete ophthalmic exam was performed and it was determined that the cataracts were a primary source of vision decline, affecting activities of daily living, necessitating removal. Limited vision post-surgery may occur with pre-existing conditions affecting other areas of the eye or the brain was explained and the patient displayed an understanding. The overall objective is to improve ADLs, not eliminate glasses or restore vision to 20/20. Tests were reviewed - the different lens options were explained including the [id number] fees for any upgrades. Intraocular lens (IOL) selection may be altered either prior to or during the procedure based on the doctor's discretion including reverting to a traditional intraocular lens (IOL). They understood that there will exist the potential of glasses prescription need post surgery for near, distance or possibly both. The patient stated a full understanding and a desire to proceed with the procedure. The patient received cataract measurements and had any additional questions answered. - A complete exam was performed including a physical exam: General: AAOx3 and NAD, Lungs: Clear, Heart: RRR, Abdomen: S/NT/ND, Extremities: no pitting edema. - Coordination of care will be shared with Dr. Qiu. Cataract Surgery for OS will take place - 01/18 and OD - 02/03. 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 I suggested that if she wished to be independent from glasses that a superficial keratectomy would need to take place. She deferred that decision. documented in this encounter [facility] 01-08-2024 Telephone encounter Note Destiny from [facility] asked for office notes regarding need for Power Wheelchair . ty [facility] 01-08-2024 Miscellaneous Notes Destiny from [facility] asked for office notes regarding need for Power Wheelchair . ty documented in this encounter [facility] 12-15-2023 Telephone encounter Note Refills sent. [facility] 12-15-2023 Miscellaneous Notes Refills sent. Needs to capsules please Rosa at [facility] [phone] Would like a callback about the rx I called the assisted living to confirm the pharmacy and they have to call back, so I'm not sure if the Medicine shop is correct or not. documented in this encounter [facility] 12-15-2023 Telephone encounter Note Needs to capsules please [facility] 12-15-2023 Telephone encounter Note Rosa at [facility] [phone] Would like a callback about the rx I called the assisted living to confirm the pharmacy and they have to call back, so I'm not sure if the Medicine shop is correct or not. [facility] 12-10-2023 Telephone encounter Note Please have them change her meal time insulin to 6 units breakfast and lunch and 10 units dinner plus corrections. thanks [facility] 12-10-2023 Miscellaneous Notes Please have them change her meal time insulin to 6 units breakfast and lunch and 10 units dinner plus corrections. thanks documented in this encounter [facility] 12-08-2023 History of Present illness Narrative [...] History: Diagnosis Date AAA (abdominal aortic aneurysm) ([facility]/HCC) Arthritis Basal cell carcinoma Bilateral biceps tendonitis Carpal tunnel syndrome Cataract Coronary artery disease (CMS/HCC) COVID-19 Diabetes mellitus (CMS/HCC) Disease of thyroid gland (CMS/HCC) DM (diabetes mellitus) (CMS/HCC) Epidermal cyst of neck Hypercholesteremia (CMS/HCC) Hyperlipidemia (CMS/HCC) Hypertension (CMS/HCC) Hypothyroidism (CMS/HCC) Left knee pain manager long term care (current) use of insulin ([facility]CC) Neck mass PAD (peripheral artery disease) ([facility]CC) Personal history of other malignant neoplasm of skin Right ankle pain Shingles Shoulder pain Skin cyst Stroke ([facility]) 09/2022 Tobacco dependence Type 2 diabetes mellitus without complications ([facility]) Venous insufficiency of leg Medications Current Outpatient Medications: acetaminophen (Tylenol) 325 MG tablet, , Disp: , Rfl: Anti-Diarrheal 2 MG tablet, , Disp: , Rfl: ASPIRIN 81 MG chewable tablet, Chew Daily, Disp: , Rfl: atorvastatin (Lipitor) 40 MG tablet, 1 (one) time each day at the same time., Disp: , Rfl: Continuous Glucose Packing Tractor Machine Operator (FreeStyle Shaina 3 [place]) device, 1 Device See administration instructions, Disp: 1 each, Rfl: 0 Continuous Glucose Sensor (FreeStyle Shaina 3 Plus Sensor) [facility] [place] 1 each See administration instructions, Disp: 6 [...] Insulin Syringe 31G X 5/16 0.3 ML misc, Inject 1 each under the skin in [...] 1 each, Does not apply, Daily, Mily Andrade NP Allergies Penicillins Past Surgical History Past Surgical [...] Weakness due to acute cerebrovascular accident (CVA) ([facility]) I63.9 R53.1 6. Pain in both feet [...] utilizing a nail Nipper and electric bur lens edge grinder machine without incident. Patient noted relief of symptoms [...] Sonu Bruner DPM documented in this encounter [facility] 12-04-2023 Telephone encounter Note Pt's daughter called requesting the Saperion system be sent to the [facility] in [place]. This is who the assisted living facility works with. [facility] 12-04-2023 Miscellaneous Notes Pt's daughter called requesting the Saperion system be sent to the [facility] in [place]. This is who the assisted living facility works with. documented in this encounter [facility] 12-04-2023 History of Present illness Narrative Associated Problem(s): 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) During the appointment today all pertinent labs, [...] the past month. She is living at [facility] since November 14. Was in [facility] and had a stroke making it difficult for her to care for herself. She is getting meals at [facility] and they are giving her all of her medications. Is in the assisted living part of the facility. Jardiance was started couple months ago. She has had couple UTI and yeast infections. Has swelling in her left leg. PCP did an xray- soft tissue swelling. Advised to see ice scraper. Diet: meals are provided for her. Drinks: [...] Active Problem List Diagnosis Cerebrovascular accident (CVA) ([facility]) Left homonymous hemianopsia Age-related nuclear cataract of both eyes Dry eyes Arthritis Atherosclerotic heart disease of [place] coronary artery without angina pectoris ([facility]) Essential hypertension ([facility]) Bilateral carotid artery stenosis Cigarette nicotine dependence without complication COPD (chronic obstructive pulmonary disease) ([facility]) Degeneration of lumbar intervertebral disc Descending aortic aneurysm ([facility]) Type 1 diabetes mellitus with other circulatory complications ([facility]) History of non-ST elevation myocardial infarction (NSTEMI) ([facility]) History of stroke Hyperlipidemia ([facility]) Hypothyroid ([facility]) Intermittent claudication ([facility]) Lumbar radiculopathy, chronic Middle cerebral artery aneurysm Non-ST elevation (NSTEMI) myocardial infarction ([facility]) PAD (peripheral artery disease) ([facility]/HCC) Other chronic pain Paroxysmal atrial fibrillation (CMS/HCC) Thoracic aortic aneurysm without rupture (CMS/HCC) Type 1 diabetes mellitus with hyperglycemia (HCC) (CMS/HCC) Type 1 diabetes mellitus with hypoglycemia and without coma (CMS/HCC) Social History Tobacco Use Smoking status: Former [...] mellitus with hypoglycemia and without coma (CMS/HCC) Follow up in about 3 months (around [...] day at the same time. CONTINUOUS GLUCOSE ENVIRONMENTAL LABORATORY TECHNICIAN (Oculus VRSTYLE SHAINA 2 READER) DEVICE 1 each every [...] the patient today. documented in this encounter [facility] 12-02-2023 History of Present illness Narrative Prescription sent documented in this encounter [facility] 12-02-2023 Telephone encounter Note Returned call to office, notified that this office did not start the eliquis. It was a historical medication when she first came to the office. Verbalized understanding [facility] 12-02-2023 Miscellaneous Notes Returned call to [...] Name and Date of . ( Lucila Stan Tineo, 1950). Yes Number to return call [phone] Reason for Call: Medication Question: Chyna from Dr. Foote's office would like to know if patient can change to xarelto, because her insurance will not cover the eliquis. They are asking if you originally started patient on eliquis, this is why the question is raised. Please call back Chyna at the above number. Thank you calling [facility] [place]. You will receive a return call within 48 hours ( or 2 business days if close to the weekend). If you feel that this is an urgent issue and needs immediate attention, it is recommended that you contact your primary care provider office or proceed to your nearest Urgent Care Center of Emergency Room ED for evaluation/treatment. documented in this encounter [facility] 12-02-2023 Telephone encounter Note CV PHONE Name of caller : Dr. Foote PCP Relationship to patient : Caregiver If not self Will need patient permission to release results or disclose health information with called documented in fyi. Patient identified by Name and Date of . ( Lucila Pierce Rivka, 1950). Yes Number to return call [phone] Reason for Call: Medication Question: Chyna from Dr. Foote's office would like to know if patient can change to xarelto, because her insurance will not cover the eliquis. They are asking if you originally started patient on eliquis, this is why the question is raised. Please call back Chyna at the above number. Thank you calling [facility] [place]. You will receive a return call within 48 hours ( or 2 business days if close to the weekend). If you feel that this is an urgent issue and needs immediate attention, it is recommended that you contact your primary care provider office or proceed to your nearest Urgent Care Center of Emergency Room ED for evaluation/treatment. [facility] Work Phone: 11-17-2023 History of Present [...] daily with meals Insulin Syringe 31G X 5/16 0.3 ML misc 1 each, Subcutaneous, 3 [...] Hypertension (CMS/HCC) Hypothyroidism (CMS/HCC) Left knee pain snf (current) use of insulin (CMS/HCC) Neck mass PAD (peripheral artery disease) (CMS/HCC) Personal history of other malignant neoplasm of skin Right ankle pain Shingles Shoulder pain Skin cyst Stroke ([facility]CC) 09/2022 Tobacco dependence Type 2 diabetes mellitus without complications ([facility]/HCC) Venous insufficiency of leg Social History Tobacco [...] fibrillation (CMS/HCC) -stable documented in this encounter [facility] 11-17-2023 Miscellaneous Notes See other note documented in this encounter [facility] 11-17-2023 Progress note Formatting of t his note might be different from the original. See other note [facility] 07-16-2023 Telephone encounter Note Rec'd lab report from [employer] imported into [facility]. [facility] Work Phone: 07-16-2023 Miscellaneous Notes Rec'd lab report from [employer] imported into [facility]. documented in this encounter [facility] 07-14-2023 Telephone encounter Note Images from the original note were not included. Rec'd patient PT/INR results imported into [facility]. [facility] Work Phone: 07-14-2023 Miscellaneous Notes Images from the original note were not included. Rec'd patient PT/INR results imported into [employer]. documented in this encounter [facility] 07-07-2023 Note HNO ID: [id number] Author: JAH SHARPE MD Service: ? Author Type: Physician Type: Progress Notes Filed: 07/07/2023 17:09 Note Text: [facility] Established Outpatient Visit Lucila Tineo [facility]#: [id number] Date of Service: 07/07/2023 Primary Care Provider: Mily Andrade, [facility] [address] [facility] [address] FOLLOW UP VISIT Chief complaint: Follow up for incidental unruptured brain aneurysm History of present illness: Ms. Veolz is a 73-year-old female with vascular risk factors, who presents for follow-up evaluation of an incidentally discovered unruptured brain aneurysm. The patient was residing in [place], and was found down on October 29, [...] stroke work-up. The patient then returned to [place], and she is still at a nursing [...] infusion, injection o (more content not included)... [facility] 07-07-2023 History of Present illness Narrative [facility] Established Outpatient Visit Lucila Tineo [facility]#: [id number] Date of Service: 07/07/2023 Primary Care Provider: Mily Andrade, CHELITA [address] [facility] [address] FOLLOW UP VISIT Chief complaint: Follow up for incidental unruptured brain aneurysm History of present illness: Ms. Veloz is a 73-year-old female with vascular risk factors, who presents for follow-up evaluation of an incidentally discovered unruptured brain aneurysm. The patient was residing in [place], and was found down on October 29, [...] stroke work-up. The patient then returned to [place], and she is still at a nursing [...] REVIEW, right posterior MCA territory and left JAVA PROJECT MANAGER territory encephalomalacia representing prior stroke. Stable overall [...] Scales Ischemic or TIA: Ischemic Stroke Modified [place] Score: Score: 4 NIH Stroke Scale: LOC: [...] July 07, 2023 documented in this encounter [facility] 07-07-2023 History of Present illness Narrative [...] PATIENT PRESENTS WITH AN IMPLANTABLE OR ATTACHED COUNTY ADVISER: No RADIOLOGY DEPARTMENT: CT; Exam(s) Completed: Brain and CTA Brain PERIPHERAL IV DATA: Site assessment: Clean,Dry and Intact, Site disposition Discontinued SIGNED BY: RT Cande(Jett) July 07, 2023 9:37 AM documented in this encounter [facility] 07-07-2023 Note HNO ID: [id number] Author: JOSE A FLORES RN Service: Radiology [...] DATE: July 07, 2023 TIME: 9:24 AM [facility] 07-07-2023 Note HNO ID: [id number] Author: BILLY BOATENG, RT(R) Service: Radiology Author Type: Technologist Type: [...] PATIENT PRESENTS WITH AN IMPLANTABLE OR ATTACHED COUNTY ADVISER: No RADIOLOGY DEPARTMENT: CT; Exam(s) Completed: Brain and CTA Brain PERIPHERAL IV DATA: Site assessment: Clean,Dry and Intact, Site disposition Discontinued SIGNED BY: RT Cande(Jett) July 07, 2023 9:37 AM [facility] 04-29-2023 Miscellaneous Notes Apt ok per RA PT daughter (Alex) would rather not schedule a PFT at this time for her mother [facility] Telephone encounter Note Apt ok per RA PT daughter (Alex) would rather not schedule a PFT at this time for her mother [facility] 03-25-2023 Note HNO ID: [id number] Author: KRISTI MARTINEZ RT(R) Service: Radiology Author [...] RT Mahesh(R) March 25, 2023 12:47 PM [facility] 03-25-2023 Note HNO ID: [id number] Author: BRO HAWK MD Service: ? Author Type: Physician Type: Progress Notes Filed: 03/25/2023 11:09 Note Text: Heart , Vascular and Thoracic [place] DEPARTMENT OF VASCULAR SURGERY OUTPATIENT VISIT DATE [...] stable taaa. N (more content not included)... [facility] 03-25-2023 Note HNO ID: [id number] Author: SEPIDEH TOVAR RN Service: Nursing Author [...] DATE: March 25, 2023 TIME: 9:59 AM [facility] 03-25-2023 Note HNO ID: [id number] Author: FRANK COLEMAN RT(R) Service: Radiology Author [...] Intact, Site disposition Discontinued SIGNED BY: RT Monica(Jett) March 25, 2023 10:19 AM [facility] 03-06-2023 History of Present illness Narrative Lucila Tineo Date of visit: 03/06/2023 Date of : 1950 Age: 73 y.o. Patient Active Problem List Diagnosis Bilateral carotid artery stenosis Thoracic aortic aneurysm without rupture ([facility]) PAD (peripheral artery disease) ([facility]) Claudication ([facility]) Lumbar radiculopathy, chronic Fall, initial encounter 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 ([facility]) Uncontrolled type 2 diabetes mellitus with hyperglycemia ([facility]) HLD (hyperlipidemia) History of stroke COPD (chronic obstructive pulmonary disease) ([facility]) ASCVD (arteriosclerotic cardiovascular disease) High anion gap metabolic acidosis Left middle cerebral artery aneurysm JEYSON (acute kidney injury) ([facility]) Elevated troponin Essential hypertension Fecal impaction ([facility]) Stercoral colitis Paroxysmal atrial fibrillation ([facility]) Allergies Allergen Reactions Penicillins Hives and Other [...] that were known and followed conservatively by [facility]. She has been started on Eliquis. [...] aneurysm that is followed by vascular in [place]. She has not been back to [place] in some time. A repeat CTA of the abdomen and pelvis that was not a dedicated CTA study was done here in [place] and reported 4.9 cm aneurysm. I do not see the last assessment in [place] but there is a reading from 2020 42 mm. I am not sure whether getting the measurement of 4.9 cm on the study here. There is a lot of artifact and I see measurements that may be 44-45 mm but not clearly 49. Past Medical History: Diagnosis Date JEYSON (acute kidney injury) ([facility]) 01/16/2023 Cancer ([facility]) Chronic pain disorder Descending aortic aneurysm ([facility]) Diabetes mellitus type 2, controlled ([facility]) Emphysema of lung ([facility]) Former smoker Hypertension Low back pain NSTEMI, initial episode of care ([facility]) PAD (peripheral artery disease) ([facility]) 11/19/2020 Skin cancer Spinal stenosis of lumbar region with neurogenic claudication Stroke ([facility]) Uncontrolled type 2 diabetes mellitus with hyperglycemia ([facility]) 01/08/2021 No data recorded No data recorded No data recorded Past Surgical History: Procedure Laterality Date APPENDECTOMY CARPAL TUNNEL RELEASE CYST REMOVAL HYSTERECTOMY INJECTION BLOCK EPIDURAL CAUDAL STEROID N/A 05/09/2022 Performed by Bruce Mcgregor MD at [facility] SKIN CANCER EXCISION TONSILLECTOMY Family [...] 1. Essential hypertension 2. Paroxysmal atrial fibrillation ([facility]) 1. New right parietal lobe CVA with History of CVA 09/2022, large right hemispheric ischemic stroke with M2 vessel cut off, diagnosed in [place], [place] 2. Primary hypertension 3. Hyperlipidemia 4. Type 2 diabetes , DKA 5. Elevation. Non-STEMI 2020 with catheterization revealing thrombotic/chronic occlusion of the RCA with attempted stent at the time. 5. ASCVD with NSTEMI 2020; LHC 2020 with thrombotic/chronic occlusion of the RCA and attempted stent 7. Aneurysmal dilatation of descending thoracic aorta measuring up to 4.9 cm in width by vascular in [place], unclear if 4.9 cm as an accurate measurement and was not as enlarged on prior study in [place]. 9. Ascending aortic enlargement/aneurysm 10. 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 I am not certain that the descending thoracic aorta is truly 4.9 cm but if this is the case, this is a rapid progression compared to previous and likely merits intervention at this point. I think she will likely need a dedicated study. I think [place] will prefer that they get a CTA there for planning. I only see the aorta closer to 4.5 cm I would nonetheless want her to make sure she meet with vascular. TODAYS ORDERS No orders of the defined types were placed in this encounter. FOLLOW UP Return in about 4 months (around 07/05/2023). PCP: MARILYN HEARD Referring Physician: MARILYN Heard [id number] [place], [address] [address] documented in this encounter [facility] 03-05-2023 Miscellaneous Notes Left message for patient to remind them to bring their most current medication list with them to their appointment. documented in this encounter [facility] 03-05-2023 Telephone encounter Note Left message for patient to remind them to bring their most current medication list with them to their appointment. [facility] 01-02-2023 Miscellaneous Notes Voice mail left for daughter to discuss plan of care for follow up of cerebral aneurysm as discussed with Dr Sharpe at appointment. Imaging in 6 months versus cerebral angiogram. Requested daughter to either call this office or send a My Chart message with preference documented in this encounter [facility] 12-16-2022 History of Present illness Narrative [facility] Virtual Visit Lucila Tineo CCF#: [id number] Date of Service: 12/16/2022 Primary Care Provider: Mily Andrade, CHELITA [address] [place] [address] The patient was referred by Osei Roe [...] brain aneurysm. The patient was residing in [place], and was found down on October 29, [...] stroke work-up. The patient then returned to [place], and she is still at a nursing [...] Jah Sharpe MD December 16, 2022 OSEI ROE [address] [facility] [address] Mily Lupe [address] [place] [address] documented in this encounter [facility] 12-08-2022 Miscellaneous Notes Images from the original note were not included. OSH imaging/records received from [facility]: December 08, 2022 -12.02.22 Dr. Roe Progress Notes scanned to chart. -Medical Hx & Imaging Reports available in Care Everywhere. Received confirmation email from Caio that imaging hs been uploaded--per dropping off disc to imaging library to upload as I wasn't able to + kept getting error per below. Images from the original note were not included. OS imaging/records received from [facility]: December 04, 2022 -12.02.22 Dr. Roe Progress Notes scanned to chart. PENDING: -3 Imaging -Medical Hx & Imaging Reports Walked discs over to imaging library + gave to Adry to upload MAGDALENE. Successfully sent [employer]RI & [employer] overnight label via [employer]~ Tracking#[id number] December 05, 2022 10:30 AM 07 [employer] Priority Overnight $14.14 From: Theresa mabry Last change on 12/04/2022 12:16:46 pm Sent on 12/04/2022 12:16:33 pm Completed ENDOVASCULAR INTAKE Patient name: Lucila Tineo Confirm Diagnosis/RFV (Reason for Visit): Aneurysm Is this a self-referral? no, who is the referring provider : Bhupinder benita [facility] in [place], [place]/His direct office number if any questions: [phone] Is this a direct referral? yes neurosurgeon Have you been recommended for surgery or procedure? Yes. coiling Are you seeking a second opinion? Yes. Do you have a MRI/MRA/CT/Ultrasound for this diagnosis? Yes. Type of imaging CT's, name/address of facility where completed [facility] [facility] [Only has reports in folder, no images] [...] if any questions. documented in this encounter [facility] Evaluation note Diagnosis Unruptured cerebral aneurysm- Primary Cerebral aneurysm, nonruptured Ischemic stroke (HCC) Hypertension, unspecified type Hyperlipidemia, unspecified hyperlipidemia type Smoking Tobacco use disorder [facility] Diagnosis Essential hypertension- Primary Unspecified essential hypertension Paroxysmal atrial fibrillation (CMS-HCC) Atrial fibrillation [facility] Diagnosis Calcified granuloma of lung (CMS-HCC)- Primary [facility] Diagnosis Unruptured cerebral aneurysm- Primary Cerebral aneurysm, nonruptured Hypertension, unspecified type Hyperlipidemia, unspecified hyperlipidemia type Atrial fibrillation, unspecified type (HCC) Ischemic stroke (HCC) [facility] Diagnosis Nonruptured cerebral aneurysm Cerebral aneurysm, nonruptured [facility] Diagnosis Unruptured cerebral aneurysm- Primary Cerebral aneurysm, nonruptured Encounter for monitoring antiplatelet therapy Encounter for therapeutic drug monitoring [facility] Diagnosis Burning with urination- Primary [...] of left foot documented in this encounter [facility]* Diagnosis Paroxysmal atrial fibrillation (CMS/HCC)- Primary Atrial fibrillation documented in this encounter [facility]* Diagnosis Nonruptured cerebral aneurysm- Primary Cerebral aneurysm, nonruptured [facility] Diagnosis 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 Type 1 diabetes mellitus with hyperglycemia (HCC) (CMS/HCC) Type 1 diabetes mellitus with hypoglycemia and without coma (CMS/HCC) documented in this encounter [facility]* Diagnosis Lymph node enlargement- Primary Enlargement of lymph nodes Foot swelling Swelling of limb Onychodystrophy Other specified disease of nail Onychomycosis Dermatophytosis of nail Weakness due to acute cerebrovascular accident (CVA) (CMS/HCC) Pain in both feet documented in this encounter [facility]* Diagnosis 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) documented in this encounter [facility]* Diagnosis 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 Type 1 diabetes mellitus with hyperglycemia (HCC) (CMS/HCC) Type 1 diabetes mellitus with hypoglycemia and without coma (CMS/HCC) Major depressive disorder, remission status unspecified, unspecified whether recurrent (CMS/HCC)- Primary [facility] Diagnosis 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 Type 1 diabetes mellitus with hyperglycemia (HCC) (CMS/HCC) Type 1 diabetes mellitus with hypoglycemia and without coma (CMS/HCC) Degeneration of lumbar intervertebral disc Degeneration of lumbar or lumbosacral intervertebral disc [facility] Diagnosis 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 Type 1 diabetes mellitus with hyperglycemia (HCC) (CMS/HCC) Type 1 diabetes mellitus with hypoglycemia and without coma (CMS/HCC) Age-related nuclear cataract of both eyes- Primary 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 She denies medication side effects. [facility] 250 DO Work Phone: InstructionsNot on filedocumented in this encounter [facility] filedocumented in this encounter [facility] filedocumented in this encounter [facility] (narrative)* Consultation (Urgent) - Authorized Specialty Diagnoses / Procedures Referred By Clemente t Referred To Contact Family Medicine Diagnoses 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 (CMS/HCC) Procedures GA OFFICE/OUTPATIENT NEW HIGH MDM 60 MINUTES Mily Andrade NP [address] [place] [address] Chyna Luna, DO [address] [place] [address] Referral ID Status Reason Start Date Expiration Date Visits Requested Visits Authorized [id number] Authorized Specialty Services Required 11/17/2023 05/15/2024 1 1 [facility] Summary Purpose Family History Unknown Family Member [...] Documents on File Type Date Recorded Patient Resin Coater Expl anation DNR Physician Order 02/13/2023 4:38 PM Latest Code Status on File Code Status Date Activated Date Inactivated Comments DNR Comfort Care Arrest (DNR -CCA) [place] 01/16/2023 12:33 PM 01/21/2023 2:44 PM Code [...] hospitalized overnight and treated with infusion. [facility] due to minimally elevated troponin. [...] IVCON CT ANGIOGRAPHY HEAD W/CONTRAST/NONCONTRAST Jeffery Gordon, MELTER HELPER.ORDER ANALYST [address] [place] [address] [place] [address] Referral ID Status Reason Start Date Expiration Date V isits Requested Visits Authorized [id number] Closed Auto-Generate d Referral 04/08/2023 05/07/2024 1 1 Referral ID Status Reason Start Date Expiration Date Visits Requested Visits Authorized [id number] New Request Auto-Generat ed Referral 12/04/2023 01/02/2025 1 1 Additional Source Comments INFORMATION SOURCE (unrecogn ized section and content) DATE CREATED AUTHOR 08/20/2020 [facility] DATE CREATED AUTHOR AUTHOR'S ORGANIZ ATION 03/11/2021 [facility] DATE CREATED AUTHOR AUTHOR'S ORGANIZ ATION 12/11/2021 [facility] DATE CREATED AUTHOR AUTHOR'S ORGANIZ ATION 12/11/2021 [facility] DATE CREATED AUTHOR AUTHOR'S ORGANIZ ATION 04/26/2022 [facility] dical Specialist DATE CREATED AUTHOR AUTHOR'S ORGANIZ ATION 03/08/2023 [facility] DATE CREATED AUTHOR AUTHOR'S ORGANIZ ATION 06/27/2023 [facility] DATE CREATED AUTHOR AUTHOR'S ORGANIZ ATION 12/20/2023 [facility] DATE CREATED AUTHOR AUTHOR'S ORGANIZ ATION 01/14/2024 [facility] dical Specialists EPIC Source Comments (unrecognize d section and content) In the event this informatio n is protected by the Federal Confidentiality of Alcohol and Drug Abuse Patient Records regulations: The Federal rules restrict any use of the information to criminally investigate or prosecute any alcohol or drug abuse patient.[facility] the event this information is protected by the Federal Confidentiality of Alcohol and Drug Abuse Patient Records regulations: The Federal rules restrict any use of the information to criminally investigate or prosecute any alcohol or drug abuse patient.[facility] the event this information is protected by the Federal Confidentiality of Alcohol and Drug Abuse Patient Records regulations: The Federal rules restrict any use of the information to criminally investigate or prosecute any alcohol or drug abuse patient.[facility] the event this information is protected by the Federal Confidentiality of Alcohol and Drug Abuse Patient Records regulations: The Federal rules restrict any use of the information to criminally investigate or prosecute any alcohol or drug abuse patient.[facility] the event this information is protected by the Federal Confidentiality of Alcohol and Drug Abuse Patient Records regulations: The Federal rules restrict any use of the information to criminally investigate or prosecute any alcohol or drug abuse patient.[facility] the event this information is protected by the Federal Confidentiality of Alcohol and Drug Abuse Patient Records regulations: The Federal rules restrict any use of the information to criminally investigate or prosecute any alcohol or drug abuse patient.[facility] Hospital[facility] the event this information is protected by the Federal Confidentiality of Alcohol and Drug Abuse Patient Records regulations: The Federal rules restrict any use of the information to criminally investigate or prosecute any alcohol or drug abuse patient.[facility] Hospital[facility] the event this information is protected by the Federal Confidentiality of Alcohol and Drug Abuse Patient Records regulations: The Federal rules restrict any use of the information to criminally investigate or prosecute any alcohol or drug abuse patient.[facility] Hospital[facility] the event this information is protected by the Federal Confidentiality of Alcohol and Drug Abuse Patient Records regulations: The Federal rules restrict any use of the information to criminally investigate or prosecute any alcohol or drug abuse patient.[facility] Hospital[facility] the event this information is protected by the Federal Confidentiality of Alcohol and Drug Abuse Patient Records regulations: The Federal rules restrict any use of the information to criminally investigate or prosecute any alcohol or drug abuse patient.[facility] Hospital[facility] the event this information is protected by the Federal Confidentiality of Alcohol and Drug Abuse Patient Records regulations: The Federal rules restrict any use of the information to criminally investigate or prosecute any alcohol or drug abuse patient.[facility] Hospital[facility] the event this information is protected by the Federal Confidentiality of Alcohol and Drug Abuse Patient Records regulations: The Federal rules restrict any use of the information to criminally investigate or prosecute any alcohol or drug abuse patient.[facility] Hospital[facility] the event this information is protected by the Federal Confidentiality of Alcohol and Drug Abuse Patient Records regulations: The Federal rules restrict any use of the information to criminally investigate or prosecute any alcohol or drug abuse patient.[facility] Hospital[facility] the event this information is protected by the Federal Confidentiality of Alcohol and Drug Abuse Patient Records regulations: The Federal rules restrict any use of the information to criminally investigate or prosecute any alcohol or drug abuse patient.[facility] Hospital[facility] the event this information is protected by the Federal Confidentiality of Alcohol and Drug Abuse Patient Records regulations: The Federal rules restrict any use of the information to criminally investigate or prosecute any alcohol or drug abuse patient.[facility] Hospital[facility] the event this information is protected by the Federal Confidentiality of Alcohol and Drug Abuse Patient Records regulations: The Federal rules restrict any use of the information to criminally investigate or prosecute any alcohol or drug abuse patient.[facility] Reason for Visit (unrecogniz ed section and content) Reason Comments Future Appointment New Patient, [place], Any Reason Comments Unruptured Aneurysm Reason Comments Tire Care Manager - Other Reason Comments Follow-up EST PT [...] IVCON CT ANGIOGRAPHY HEAD W/CONTRAST/NONCONTRAST Jeffery Gordon, MELTER HELPER.ORDER ANALYST [address] [place] [address] [place] [address] Referral ID Status Reason Start Date Expiration Date V isits Requested Visits Authorized [id number] Closed Auto-Generate d Referral 04/08/2023 05/07/2024 1 1 Reason Comments Unruptured Aneurysm Diagnostic Cerebral Angiogram Reason Comments Results PT-INR Results Reason Comments Received Outside Medical Records Rec'd l ab report from [employer] imported into [employer]. Reason Comments Medication Question Reason Comments Diabetes UTI Reason Comments Unruptured Aneurysm Reason Comments Diabetes Specialty Diagnoses / Procedures [facility] Referred To Contact Family Medicine Diagnoses 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 ([facility]) Procedures GA OFFICE/OUTPATIENT NEW HIGH MDM 60 MINUTES Mily Andrade NP [address] [place] [address] Chyna Luna M, DO [address] [facility] [address] [place] [address] Referral ID Status Reason Start Date Expiration Date V isits Requested Visits Authorized [id number] Closed Specialty Services Required 11/17/2023 05/15/2024 1 1 Reason Comments Foot Problem 73 yo OP presents to day with concerns of swelling in left foot, pt relates she had xrays done. Had xrays done with [facility], no fx, just soft tissue swelling. Stroke last September 2022. PCP: Bandar TALBOT 12/04/23, A1C: 8.7, BS: 325 Specialty Diagnoses / Procedures Referred By Contac t Referred To Contact Podiatry Diagnoses Foot swelling Procedures GA OFFICE/OUTPATIENT NEW HIGH MDM 60 MINUTES Mily Andrade NP [address] [place] [address] Sonu Bruner, DPM [address] [place] [address] Referral ID Status Reason Start Date Expiration Date V isits Requested Visits Authorized [id number] Closed Specialty Services Required 11/19/2023 05/17/2024 1 1 Reason Comments Cataract Care Teams (unrecognized sec tion and content) Financial Services Agent Relationship Specialty Start Date End Date Mily Andrade CNP [address] [place] [address] PCP - General Family Medicine 09/29/18 Osei Roe [address] [place] [address] Referring Neurology 12/04/22 Financial Services Agent Relationship Specialty Start Date End Date Mily Andrade CNP [address] [place] [address] PCP - General Family Medicine 09/29/18 Osei Roe [address] [place] [address] Referring Neurology 12/04/22 Financial Services Agent Relationship Specialty Start Date End Date Mily Andrade CNP [address] [place] [address] PCP - General Family Medicine 09/29/18 Osei Roe [address] [place] [address] Referring Neurology 12/04/22 Financial Services Agent Relationship Specialty Start Date End Date Mily Andrade CNP [address] [place] [address] PCP - General Family Medicine 09/29/18 Osei Roe [address] [place] [address] Referring Neurology 12/04/22 Financial Services Agent Relationship Specialty Start Date End Date Mily Andrade APRN-ORDER ANALYST [address] [place] [place] [address] PCP - General Internal Medicine 08/06/20 Financial Services Agent Relationship Specialty Start Date End Date Mily Andrade APRN-ORDER ANALYST [address] [facility] [place] [address] PCP - General Internal Medicine 08/06/20 Financial Services Agent Relationship Specialty Start Date End Date Chyna Luna DO [address] [place] [address] PCP - [employer] 03/02/20 Corrie Coley MD [address] [facility] [place] [address] PCP - General Family Medicine 03/26/23 Financial Services Agent Relationship Specialty Start Date End Date Mily Andrade APRN-ORDER ANALYST [address] [facility] [place] [address] PCP - General Internal Medicine 08/06/20 Financial Services Agent Relationship Specialty Start Date End Date Mily Andrade APRN-ORDER ANALYST [address] [place] [address] PCP - General Internal Medicine 08/06/20 Financial Services Agent Relationship Specialty Start Date End Date Mily Andrade CNP [address] [place] [address] PCP - General Family Medicine 09/29/18 Osei Roe MD [address] [facility] [address] [place] [address] Referring Neurology 12/04/22 Financial Services Agent Relationship Specialty Start Date End Date Mily Andrade CNP [address] [facility] [place] [address] PCP - General Family Medicine 09/29/18 Osei Roe MD [address] [facility] [address] [place] [address] Referring Neurology 12/04/22 Financial Services Agent Relationship Specialty Start Date End Date Mily Andrade CNP [address] [facility] [place] [address] PCP - General Family Medicine 09/29/18 Osei Roe MD [address] [facility] [address] [place] [address] Referring Neurology 12/04/22 Financial Services Agent Relationship Specialty Start Date End Date Mily Andrade CNP [address] [facility] [place] [address] PCP - General Family Medicine 09/29/18 Osei Roe MD [address] [facility] [address] [place] [address] Referring Neurology 12/04/22 Financial Services Agent Relationship Specialty Start Date End Date Mily Andrade CNP [address] [place] [address] PCP - General Family Medicine 09/29/18 Osei Roe MD [address] [facility] [address] [place] [address] Referring Neurology 12/04/22 Financial Services Agent Relationship Specialty Start Date End Date Mily Andrade CNP [address] [place] [address] PCP - General Family Medicine 09/29/18 Osei Roe MD [address] [facility] [address] [place] [address] Referring Neurology 12/04/22 Financial Services Agent Relationship Specialty Start Date End Date Chyna Luna DO [address] [facility] [address] [place] [address] PCP - [employer] 03/02/19 Corrie Coley MD [address] [place] [address] PCP - General Family Medicine 03/26/23 Financial Services Agent Relationship Specialty Start Date End Date Chyna Luna DO [address] [facility] [address] [place] [address] PCP - [employer] 03/02/19 Corrie Coley MD [address] [place] [address] PCP - General Family Medicine 03/26/23 Chyna Richardson LSW [employer] Family Medicine 11/27/23 Financial Services Agent Relationship Specialty Start Date End Date Mily Andrade CNP [address] [place] [place] [address] PCP - General Family Medicine 09/29/18 Osei Roe MD [address] [place] [address] Referring Neurology 12/04/22 Financial Services Agent Relationship Specialty Start Date End Date Chyna Luna, DO [address] [place] [address] PCP - [employer] 03/02/19 Corrie Coley MD [address] [place] [address] PCP - General Family Medicine 03/26/23 Chyna Richardson LSW [employer] Family Medicine 11/27/23 Financial Services Agent Relationship Specialty Start Date End Date Chyna Luna DO [address] [place] [address] PCP - [employer] 03/02/19 Corrie Coley MD [address] [place] [place] [address] PCP - General Family Medicine 03/26/23 Chyna Richardson LSW [employer] Family Medicine 11/27/23 Financial Services Agent Relationship Specialty Start Date End Date Chyna Luna DO [address] [place] [address] PCP - [employer] 03/02/19 Corrie Coley MD [address] [place] [place] [address] PCP - General Family Medicine 03/26/23 Chyna Richardson, [facility] [employer] Family Medicine 11/27/23 Financial Services Agent Relationship Specialty Start Date End Date Andrade MilyCHELITA [address] [place] [address] PCP - General Family Medicine 09/29/18 Osei Roe MD [address] [place] [address] Referring Neurology 12/04/22 Financial Services Agent Relationship Specialty Start Date End Date Chyna Luna DO [address] [place] [address] PCP - [employer] 03/02/19 Corrie Coley MD [address] [place] [address] PCP - General Family Medicine 03/26/23 Chyna Richardson LSW [employer] Family Medicine 11/27/23 Financial Services Agent Relationship Specialty Start Date End Date Chyna Luna DO [address] [place] [address] PCP - [employer] 03/02/19 Corrie Coley MD [address] [place] [address] PCP - General Family Medicine 03/26/23 Chyna Richardson LSW [employer] Family Medicine 11/27/23 Financial Services Agent Relationship Specialty Start Date End Date Chyna Luna DO [address] [place] [address] PCP - [employer] 03/02/19 Corrie Coley MD [address] [place] [address] PCP - General Family Medicine 03/26/23 Chyna Richardson, [facility] [employer] Family Medicine 11/27/23 Financial Services Agent Relationship Specialty Start Date End Date Chyna Luna, DO [address] [place] [address] PCP - [employer] 03/02/19 Corrie Coley MD [address] [place] [address] PCP - General Family Medicine 03/26/23 Chyna Richardson, [facility] [employer] Family Medicine 11/27/23 Financial Services Agent Relationship Specialty Start Date End Date Chyna Luna, DO [address] [place] [address] PCP - [employer] 03/02/19 Corrie Coley MD [address] [place] [address] PCP - General Family Medicine 03/26/23 Chyna Richardson, [facility] [employer] Family Medicine 11/27/23 Financial Services Agent Relationship Specialty Start Date End Date Chyna Luna, DO [address] [place] [address] PCP - [employer] 03/02/19 Corrie Coley MD [address] [place] [address] PCP - General Family Medicine 03/26/23 Chyna Richardson LSW [employer] [facility] 11/27/23 Kiah Qiu, OD [address] [facility] [address] Referring Physician Optometry 01/12/24 Financial Services Agent Relationship Specialty Start Date End Date Chyna Luna, DO [address] [place] [address] PCP - [employer] 03/02/19 Corrie Coley MD [address] [facility] [place] [address] PCP - General Family Medicine 03/26/23 Chyna Richardson LSW [facility] 11/27/23 Kiah Qiu, OD [address] [place] [address] Referring Physician Optometry 01/12/24 Financial Services Agent Relationship Specialty Start Date End Date Chyna Luna, DO [address] [place] [address] PCP - [employer] 03/02/19 Corrie Coley MD [address] [place] [facility] [place] [address] PCP - General Family Medicine 03/26/23 Chyna Richardson LSW [employer] [facility] 11/27/23 Kiah Qiu, OD [address] [facility] [place] [address] Referring Physician Optometry 01/12/24 FOR RECORDS PERTAINING TO PATIENTS WHO ARE [...] BE BASED ON THE PRIMARY CLINICAL RECORDS. [employer] [facility]. provides no warranty or guarantee of the accuracy or completeness of information in this document.
[2024-02-04] MEDS: PHENYLEPHRINE HCL 2.5% OP SOL 40 DROP/2 ML BOTTLE OP ×4 (08:16→08:47)
[2024-02-04] MEDS: CYCLOPENTOLATE HCL 1% OP SOL 40 DROP/2 ML BOTTLE OP ×4 (08:16→08:47)
[2024-02-04] MEDS: TROPICAMIDE 1% OP SOL 300 DROP/15 ML BOTTLE OP ×4 (08:16→08:47)
[2024-02-04] MEDS: PROPARACAINE HCL 0.5% 300 DROP/15 ML BOTTLE OP (09:55)
[2024-02-04] MEDS: LIDOCAINE 2% JELLY 10 ML TOPICAL (09:56)
[2024-02-04] MEDS: BETADINE POVIDONE-IODINE 5% OP SOL 30 ML BOTTLE OP (09:56)
[2024-02-04 10:03] VITALS: BP 142/75; BP 151/79; PULSE 76; PULSE 77; O2SAT 99
[2024-02-04] MEDS: APRACLONIDINE HCL 0.5% SOL 100 DROP/5 ML BOTTLE OP (10:04)
[2024-02-04] MEDS: PHENYLEPHRINE/KETOROLAC 1-0.3% ML VIAL 4 ML IRR (10:05)
[2024-02-04] MEDS: HYALURONATE SODIUM 16 MG/ML SYRINGE OP (10:05)
[2024-02-04] MEDS: LIDOCAINE HCL 1% PF 20 MG/2 ML VIAL INJ (10:05)
[2024-02-04] MEDS: PREDNISOLONE ACETATE OP 1% SUSP 100 DROPS/5 ML 1 DROP OP (10:05)
[2024-02-04] MEDS: TETRACAINE HCL 0.5% OP SOL 80 DROP/4 ML BOTTLE OP (10:06)
== END 2024-02-04 10:28 | disposition home or self-care (01) ==
PROVIDERS: PCP Family Medicine; Visit Provider Ophthalmology
PROC: (CPT 66984; principal; 2024-02-04 09:10)
DX: H25.11 Age-related nuclear cataract, right eye (principal); E03.9 Hypothyroidism, unspecified; I10 Essential (primary) hypertension; E78.00 Pure hypercholesterolemia, unspecified; I25.10 Atherosclerotic heart disease of native coronary artery without angina pectoris; Z90.710 Acquired absence of both cervix and uterus; E11.51 Type 2 diabetes mellitus with diabetic peripheral angiopathy without gangrene; Z79.4 Long term (current) use of insulin; Z79.01 Long term (current) use of anticoagulants
CPT/HCPCS: 66984; V2630

== ENCOUNTER 2024-12-08 08:44 | Emergency (ER) | payer MEDICARE, MEDICAID, SELFPAY ==
[2024-12-08] VITALS (35 sets, daily range): BP systolic 131–151; BP diastolic 65–113; PULSE 60–98; TEMP 36.6; O2SAT 92–95; BMI 27.4
--- OUTSIDE RECORDS SUMMARY | 2024-12-08 09:03 | XMS_ITS | CCD ---
Author Organization [facility] ion [facility] Care Team Providers Care Automotive Diagnostic Technician Name Role Phone Unavailable Unavailable Mily Andrade Unavailable [phone] SALAS KIRKPATRICK Attending Unavailable SALAS KIRKPATRICK Admitting Unavailable Lupe, Ms. Mily Beckwith Primary Care Rosemary vailable Curt, Dr. Barrera Attending Unavailable Dr. Bruce Elias Referring Unavailable Dr. Bruce Elias Referring Unavailable CHELITA Sandhu Attending Unavailable Lupe, Ms. Mily Beckwith Primary Care Rosemary vailable Mily Andrade CNP Primary Care Provider Osei Roe Unavailable ANGE GEE Attending Unavailable MILY ANDRADE Referring Unavailab le ANDRADE, MILY Ashley Primary Care Unavailab le Chyna Luna DO Unavailable Corrie Dorantes MD Primary Care Provider MILY ANDRADE Referring Unavailab le ANDRADE, MILY A Primary Care Unavailab le ANDRADE, MILY Ashley Referring Unavailab le ANDRADE, MILY A Primary Care Unavailab le DINORA SULLIVAN Attending Unavailable MILY ANDRADE Referring Unavailab le ANDRADE, MILY Ashley Primary Care Unavailab le Andrade Mily MERLOS Primary Care Provider Osei Roe MD Unavailable Chyna Luna DO Unavailable Chyna White Unavailable Uyen OD, Kiah Unavailable Eneida Cantrell LPN Unavailable CHYNA LUNA Attending Unavailable KAMPJEANNETTE ROSENBERG Attending Unavailable PETZNCHYNA GRAVES Attending Unavailable JAYNACORRIE Attending Unavailable JAYNACORRIE LONG Referring Unavailable KAMPFER, JEANNETTE Referring Unavailable KAMPSHAKIRA, JEANNETTE Referring Unavailable ANDRADEMILY Attending Unavailab le ANDRADE, MILY Ashley Referring Unavailab le ANDRADE, MILY Ashley Referring Unavailab le ANDRADE, MILY Ashley Referring Unavailab le PETZNICK, CHYNA Seth Attending Unavailable ANDRADE, MILY Ashley Referring Unavailab SONU Leavitt Attending Unavailable ANDRADE, MILY sAhley Referring Unavailab le ZAHLERHOLLIE Attending Unavailable PETCHYNA CHARLES Attending Unavailable FAGERJEFFERY Jones Referring Unavailable ANDRADE, MILY Primary Care Unavailable FAGERTJEFFERY Referring Unavailable FAGERTJEFFERY Attending Unavailable ANDRADE [facility] [place] Primary Care Unavailable Allergies Allergy Classification Reported Allergen(s) Allergy Type Date of Onset Reaction(s) Facility (13 sources) Penicillins; Translations: [Penicillins] Allergy to drug (finding) 10-11-2018 [facility] (16 sources) Penicillins Drug Allergy 10-11-2018 [facility] (20 sources) Penicillins Drug Allergy 10-11-2018 [facility] Work Phone: (1 source) Penicillins Drug Allergy 10-11-2018 [facility] Medications Current Medications Medication Drug Class(es) Dates Sig (Normalized) Sig (Original) acetaminophen 325 mg oral tablet (20 sources) Start: 11-11-2023 take 2 tablets by mouth every six hours as needed for pain acetaminophen (Tylenol) 325 MG tablet Take 2 tablets by mouth every 6 (six) hours if needed for mild pain 11/11/2023 Active Start: 11-11-2023 acetaminophen (Tylenol) 325 MG tablet 11/11/2023 Active amLODIPine 5 mg oral tablet (20 sources) Dihydropyridine Calcium Channel Shivani Start: 12-03-2022 End: 01-28-2026 take 1 tablet by mouth in the morning amLODIPine (Norvasc) 5 MG tablet Indications: Essential hypertension Take 1 tablet (5 mg) by mouth in the morning. 30 tablet 19 07/01/2024 01/28/2026 Active apixaban 5 mg oral tablet (19 sources) Factor Xa Inhibitor End: 12-02-2023 take 1 tablet by mouth twice daily apixaban (ELIQUIS) 5 mg tab(s) Take 5 mg by mouth two times a day. Active aspirin 81 mg delayed release oral tablet (20 sources) Platelet Aggregation Inhibitor, Nonsteroidal Anti-inflammatory Drug Start: 01-07-2024 Aspirin Low Dose 81 MG EC tablet 01/07/2024 Active Start: 12-03-2022 End: 11-17-2023 take 1 tablet by mouth in the morning aspirin 325 MG tablet Take 325 mg by mouth in the morning. 12/03/2022 11/17/2023 Discontinued (Therapy completed) Start: 07-04-2021 End: 03-11-2024 take 1 tablet by mouth once daily Aspirin 81 MG Oral Tablet Chewable CHEW AND SWALLOW 1 TABLET DAILY. Quantity: 90 Refills: 3 Ordered: 04-Jul-2021 Salas Yeung Start : 04-Jul-2021 Active Comment on above: Take 81 mg by mouth once daily. atorvastatin 40 mg oral tablet (20 sources) HMG-CoA Reductase Inhibitor Start: 07-05-19 End: 07-02-19 take 1 tablet by mouth once daily atorvastatin (Lipitor) 40 MG tablet Indications: Mixed hyperlipidemia Take 1 tablet (40 mg) by mouth Daily 90 tablet 1 07/01/2024 Active Comment on above: Take 40 mg by mouth once daily. calcium carbonate 1250 mg oral tablet (20 sources) Start: 09-14-19 End: 02-21-20 take 1 tablet by mouth in the morning Oyster Shell Calcium 500 MG tablet Indications: Degeneration of lumbar intervertebral disc Take 1 tablet by mouth in the morning and 1 tablet before bedtime. 180 tablet 11/22/2024 02/20/2025 Active cholecalciferol 0.025 mg oral capsule (20 sources) Vitamin D Start: 09-14-19 D3-1000 25 MCG (1000 UT) capsule Daily 09/14/2023 Active Start: 09-14-2023 D3-1000 25 MCG (1000 UT) capsule 09/14/2023 Active clopidogrel 75 mg oral tablet (20 sources) P2Y12 Platelet Inhibitor take 1 tablet by mouth once daily clopidogrel (PLAVIX) 75 mg tablet Take 75 mg by mouth once daily. Active Plavix 75 MG Ora l Tablet Quantity: 0 Refills: 0 Ordered: 04-Dec-2020 DO Active Comment on above: Take 75 mg by mouth once daily. 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) 1 each See administration instructions 1 each 12/08/2023 Active Start: 11-19-2023 Continuous Glu cose Assistant Professor Of Drama (FreeStyle Shaina 2 [place]) device Indications: 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 (CMS/HCC) 1 each every 14 (fourteen) days 6 each 3 11/19/2023 Active Continuous Glucose Assistant Professor Of Drama (FreeStyle Shaina 3 [place]) device (20 sources) Start: 12-08-2023 Continuous Glu cose Assistant Professor Of Drama (FreeStyle Shaina 3 [place]) device Indications: Type 1 diabetes mellitus with other circulatory complications (HCC) 1 Device See administration instructions 1 each 12/08/2023 Active Start: 12-08-2023 Continuous Glu cose Assistant Professor Of Drama (FreeStyle Shaina 3 [place]) device Indications: Type 1 diabetes mellitus with other circulatory complications 1 Device See administration instructions 1 each 12/08/2023 Active Start: 12-08-2023 Continuous Glu cose Assistant Professor Of Drama (FreeStyle Shaina 3 [place]) device Indications: 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) 1 Device See administration instructions 1 each 12/08/2023 Active Continuous Glucose Sensor (FreeStyle Shaina 2 Sensor) misc (10 sources) Start: 12-08-2023 End: 03-11-2024 Continuous Glucose Sensor (FreeStyle Shaina 2 Sensor) misc Indications: 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) Wear subcutaneous daily every 14 days 6 each 3 12/08/2023 03/11/2024 Discontinued Start: 12-08-2023 End: 12-07-2024 Continuous Glucose Sensor (F reeStyle Shaina 2 Sensor) [facility] [place] Indications: 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) Wear subcutaneous daily every 14 days 6 each 3 12/08/2023 12/07/2024 Active Continuous Glucose Sensor (FreeStyle Shaina 3 Plus Sensor) mis (20 sources) Start: 12-08-2023 Continuous Glu cose Sensor (FreeStyle Shaina 3 Plus Sensor) [facility] [place] Indications: Type 1 diabetes mellitus with other circulatory complications (HCC) 1 each See administration instructions 6 each 3 12/08/2023 Active Start: 12-08-2023 Continuous Glu cose Sensor (FreeStyle Shaina 3 Plus Sensor) [facility] [place] Indications: Type 1 diabetes mellitus with other circulatory complications 1 each See administration instructions 6 each 3 12/08/2023 Active Start: 12-08-2023 Continuous Glu cose Sensor (FreeStyle Shaina 3 Plus Sensor) [facility] [place] Indications: Type 1 diabetes mellitus with other [...] 12/04/2023 Discontinued fluconazole 150 mg oral tablet (9 sources) Azole Antifungal Start: 11-17-2023 End: 03-11-2024 fluconazole (Diflucan) 150 MG tablet 11/17/2023 03/11/2024 Discontinued Start: 11-17-2023 End: 11-17-2023 take 1 tablet by mouth once fluconazole (Diflucan) 150 MG tablet Indications: Vaginal yeast infection Take 1 tablet (150 mg) by mouth 1 (one) time for 1 dose 1 tablet 11/17/2023 11/17/2023 Start: 04-15-2023 End: 11-17-2023 fluconazole (Diflucan) 100 M G tablet 04/15/2023 11/17/2023 Discontinued (Therapy completed) Glucose (20 sources) Start: 04-15-2024 End: 04-15-2025 glucose 4 g chewable tablet Indications: Type 1 diabetes mellitus with hypoglycemia and without coma (HCC) Chew 4 tablets (16 g) if needed for low blood sugar 50 tablet 04/15/2024 04/15/2025 Active Start: 04-15-2024 End: 04-15-2025 glucose 4 g chewable tablet Indications: Type 1 diabetes mellitus with hypoglycemia and without coma (CMS/HCC) Chew 4 tablets (16 g) if needed for low blood sugar 50 tablet 04/15/2024 04/15/2025 Active insulin aspart (NovoLOG) 100 UNIT/ML injection (12 sources) End: 12-04-2023 insulin aspart (NovoLOG) 100 [...] subcutaneously. Per sliding scale Active insulin aspart ( NOVOLOG FLEXPEN U-100 [...] 5 Units subcu taneously daily at bedtime. 3 ml insulin glargine 100 unt/ml pen injector (20 sources) Insulin Analog Start: 08-26-2024 insulin glargine (Lantus SoloStar) 100 UNIT/ML pen Indications: Type 1 diabetes mellitus with other circulatory complications (HCC) 12 units am and 9 units pm 15 mL 3 08/26/2024 Active Start: 08-02-2024 insulin glargi ne (Lantus SoloStar) 100 UNIT/ML pen 11 units am and 6 units pm 15 mL 3 08/02/2024 Active Start: 06-10-2024 insulin glargi ne (Lantus SoloStar) 100 UNIT/ML pen 10 units am and 5 units pm 15 mL 3 06/10/2024 Active Start: 03-11-2024 End: 06-10-2024 insulin glargine (Lantus SoloStar) 100 UNIT/ML pen 12 units am and 7 units pm 15 mL 3 03/11/2024 06/10/2024 Discontinued (Dose adjustment) Start: 01-06-2024 End: 03-11-2024 insulin glargine (Lantus) 10 0 UNIT/ML injection Injection subcutaneous 12 in the am and 7 units at night 10 mL 3 01/06/2024 03/11/2024 Discontinued Start: 12-31-2023 End: 03-11-2024 Lantus SoloStar 100 UNIT/ML pen 12/31/2023 03/11/2024 Discontinued Start: 12-02-2022 End: 12-04-2023 insulin glargine (Lantus) 10 0 UNIT/ML injection Injection subcutaneous 15 in the am and 10 units at night 10 mL 3 12/04/2023 Active Start: 12-02-2022 inject 10 [IU] by arteaga bcutaneous injection in the morning insulin glargine (Lantus) 100 UNIT/ML injection Inject 10 Units under the skin in the morning. 12/02/2022 Active End: 03-11-2024 inject 12 [IU] by subcutaneous injection at bedtime, then inject 7 [IU] by subcutaneous injection in the morning insulin glargine (Lantus SoloStar) 100 UNIT/ML pen Inject under the skin at bedtime 12 units am and 7 units pm 03/11/2024 Discontinued (Dose adjustment) insulin glargine,hum.rec.anl og (INSULIN GLARGINE SUBCUTANEOUS) (11 sources) inject 15 [IU] by subcutaneous injection once daily insulin glargine,hum.rec.anlog (INSULIN GLARGINE SUBCUTANEOUS) Inject 15 Units subcutaneously once daily. SLIDING SCALE Active inject 15 [IU] by arteaga bcutaneous injection once daily insulin glargine,hum.rec.anlog (INSULIN GLARGINE SUBCUTANEOUS) Inject 15 Units subcutaneously once daily. SLIDING SCALE 0 Active insulin glargine-yfgn (Semglee-yfgn) 100 UNIT/ML pen (4 sources) Start: 11-23-2023 End: 03-11-2024 insulin glargine-yfgn (Semglee-yfgn) 100 UNIT/ML pen 11/23/2023 03/11/2024 Discontinued (Therapy completed) Start: 11-23-2023 insulin glargi ne-yfgn (Semglee-yfgn) 100 UNIT/ML pen 11/23/2023 Active 3 ml insulin lispro 100 unt/ml pen injector (20 sources) Insulin Analog Start: 08-02-2024 insulin lispro (HumaLOG KWIKPEN) 100 UNIT/ML injection 4 units breakfast, 8 units lunch, 12 units dinner plus correction 1:75 > 150 mg/dl (max daily 50 units) 15 mL 3 08/26/2024 Active Start: 01-06-2024 End: 06-10-2024 insulin lispro (HumaLOG KWIK PEN) 100 UNIT/ML injection 5 units breakfast, 5 units lunch, 8 units dinner plus correction 1:100 > 150 mg/dl (max daily 50 units) 15 mL 3 06/10/2024 Active Start: 01-06-2024 End: 03-11-2024 insulin lispro (HumaLOG) 100 unit/ml injection Indications: 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 SLIDING SCALE Active iv contrast (will be provided with [...] sources) Nonsteroidal Anti-inflammatory Drug, Cyclooxygenase Inhibitor Start: End: 12-12-2 024 take 1 drop(s) into the eye(s) in the morning ketorolac (Acular) 0.5 % ophthalmic solution Indications: Age-related nuclear cataract of both eyes Administer 1 drop into affected eye(s) in the morning and 1 drop before bedtime. 5 mL 1 01/12/2024 02/11/2024 Active levothyroxine sodium 0.125 mg oral tablet (20 sources) l-Thyroxine Start: take 1 tablet by mouth once daily levothyroxine (Synthroid) 125 MCG tablet Indications: Acquired hypothyroidism Take 1 tablet (125 mcg) by mouth Daily Take on an empty stomach 90 tablet 07/04/2024 Active Start: 07-01-2024 take 1 tablet by rita th once daily levothyroxine (Synthroid) 150 MCG tablet Indications: Acquired hypothyroidism (CMS/HCC) Take 1 tablet (150 mcg) by mouth Daily Take on an empty stomach 90 tablet 1 07/01/2024 Active Start: 07-01-2024 take 1 tablet by rita th once daily levothyroxine (Synthroid) 150 MCG tablet Indications: Acquired hypothyroidism (CMS/HCC) Take 1 tablet (150 mcg) by mouth Daily Take on an empty stomach 90 tablet 1 07/01/2024 Active Start: 07-23-2022 End: 11-17-2023 take 1 tablet by mouth before mealtime levothyroxine (Synthroid, Levoxyl) 125 MCG tablet Indications: Hypothyroidism (acquired) (CMS/HCC) Take 1 tablet (125 mcg) by mouth in the morning. Take before meals. 90 tablet 07/23/2022 11/17/2023 Discontinued (Therapy completed) End: 07-01-2024 take 1 tablet by mouth once daily levothyroxine (SYNTHROID) 150 mcg tablet Take 150 mcg by mouth once daily. Active Comment on above: Take 150 mcg by mout h once daily. lidocaine 0.04 mg/mg medicated patch (4 sources) Antiarrhythmic, Amide Local Anesthetic Start: 11-14-19 End: 03-11-19 Lidocaine Pain Relief 4 % patch 11/14/2023 03/11/2024 Discontinued (Therapy completed) loperamide hydrochloride 2 mg oral tablet (20 sources) Opioid Agonist Start: 11-14-19 take 1 tablet by mouth every six hours as needed for diarrhea Anti-Diarrheal 2 MG tablet Take 1 tablet by mouth every 6 (six) hours if needed for diarrhea 11/14/2023 Active losartan potassium 50 mg oral tablet (20 sources) Angiotensin 2 Receptor Shivani Start: 09-10-19 End: 12-04-19 losartan (Cozaar) 50 MG tablet Indications: Primary [...] Take 50 mg by mouth once daily. meloxicam 7.5 mg oral tablet (4 sources) Nonsteroidal Anti-inflammatory Drug Start: 11-02-19 End: 03-11-19 meloxicam (Mobic) 7.5 MG tablet 11/02/2023 03/11/2024 Discontinued nitrofurantoin, macrocrystals 25 mg / nitrofurantoin, monohydrate 75 mg oral capsule (8 sources) Nitrofuran Antibacterial Start: 07-02-19 End: 07-07-19 take 1 capsule by mouth in the morning nitrofurantoin, macrocrystal-monohyd rate, (Macrobid) 100 MG capsule Indications: Urinary frequency Take 1 capsule (100 mg) by mouth in the morning and 1 capsule (100 mg) before bedtime. Do all this for 5 days. 10 capsule 07/01/2024 07/06/2024 Active Start: 11-17-2023 End: 03-11-2024 nitrofurantoin, macrocrystal -monohydrate, (Macrobid) 100 MG capsule 11/17/2023 03/11/2024 Discontinued (Therapy completed) ondansetron 4 mg disintegrating oral tablet (20 sources) Serotonin-3 Receptor Antagonist Start: 11-14-2023 take 1 tablet by mouth every eight hours as needed for nausea and vomiting ondansetron ODT (Zofran-ODT) 4 MG disintegrating tablet Take 4 mg by mouth every 8 (eight) hours if needed for nausea or vomiting 11/14/2023 Active End: 03-11-2024 take 1 tablet by mouth every eight hours as needed ondansetron (ZOFRAN) 4 mg tablet Take 4 mg by mouth every 8 hours as needed for nausea/vomiting. Active polyethylene glycol 3350 88371 mg powder for oral solution (11 sources) Osmotic Laxative Start: 04-26-2023 End: 12-04-2023 polyethylene glycol, PEG, 3350 (MiraLax) 17 GM/SCOOP powder Indications: Slow transit constipation Take 17 g by mouth every other day if needed (constipation) 527 g 3 04/26/2023 12/04/2023 Discontinued microencapsulated potassium chloride 20 meq extended release oral tablet (20 sources) Start: 07-01-2024 take 2 tablets by mouth once daily potassium chloride CR (Klor-Con M20) 20 MEQ ER tablet Indications: Hypokalemia Take 2 tablets (40 mEq) by mouth Daily 180 tablet 1 07/01/2024 Active Start: 12-30-2023 End: 07-01-2024 potassium chloride CR (Klor- Con M20) 20 MEQ ER tablet Take 40 mEq by mouth Daily 12/30/2023 07/01/2024 Discontinued (Reorder) Start: 02-20-2023 End: 03-11-2024 potassium chloride ER (Micro -K) 10 MEQ ER capsule Take 40 mEq by mouth Daily 02/20/2023 03/11/2024 Discontinued Start: 02-20-2023 potassium chlo ride ER (Micro-K) 10 MEQ ER capsule 02/20/2023 Active POTASSIUM-99 ORAL (11 sources) take 40 mEq by mouth once [...] 01/26/2024 Active rivaroxaban 20 mg oral tablet (20 sources) Factor Xa Inhibitor Start: 12-02-2023 End: 07-01-2024 take 1 tablet by mouth at mealtime rivaroxaban (Xarelto) 20 MG tablet Indications: Paroxysmal atrial fibrillation (HCC) Take 1 tablet (20 mg) by mouth in the evening. Take with meals Take with food. 90 tablet 1 07/01/2024 Active rOPINIRole 0.5 mg oral tablet (20 sources) Nonergot Dopamine Agonist Start: 07-02-2023 End: 07-01-2024 take 1 tablet by mouth at bedtime rOPINIRole (Requip) 0.5 MG tablet Indications: Restless Leg Syndrome Take 1 tablet (0.5 mg) by mouth at bedtime 90 tablet 1 07/01/2024 Active sennosides, long term 8.6 mg oral tablet (18 sources) Start: 11-14-2023 End: 03-11-2024 Senna-Time 8.6 MG tablet 11/14/2023 03/11/2024 Discontinued (Therapy completed) End: 11-17-2023 Sennosides (SENNA) 8.6 mg ca p Take 1 capsule by mouth as needed. Active traMADol hydrochloride 50 mg oral tablet (20 sources) Opioid Agonist End: 11-17-2023 take 1 tablet by mouth every six hours as needed for pain traMADol (Ultram) 50 MG tablet Take 50 mg by mouth every 6 (six) hours if needed for severe pain Active 24 hr venlafaxine 37.5 mg extended release oral capsule (20 sources) Serotonin and Norepinephrine Reuptake Inhibitor Start: 12-03-2022 End: 09-29-2024 take 1 capsule by mouth every twenty-four hours at mealtime venlafaxine XR (Effexor XR) 37.5 MG 24 hr capsule Indications: Major depressive disorder, remission status unspecified, unspecified whether recurrent Take 1 capsule (37.5 mg) by mouth in the morning. Take with meals. 90 capsule 07/01/2024 Active take 1 capsule by mouth once gen ly venlafaxine ER (EFFEXOR XR) 37.5 mg 24 hr capsule Take 37.5 mg by mouth once daily. Active Completed/Discontinued Medications Medication Drug Class(es) Dates Sig (Normalized) Sig (Original) cilostazol 50 mg oral tablet (8 sources) Phosphodiesterase 3 Inhibitor take 1 tablet by mouth twice daily Cilostazol 50 MG Oral Tablet Take 1 tablet twice daily Quantity: 0 Refills: 0 Ordered: 05-Feb-2021 DO Active docusate sodium 50 mg / sennosides, long term 8.6 mg oral tablet (20 sources) Start: 12-02-2022 End: 11-17-2023 take 1 tablet by mouth in the morning senna-docusate (Lydia-Colace) 8.6-50 MG tablet Take 1 tablet by mouth in the morning and 1 tablet in the evening. 12/02/2022 11/17/2023 Discontinued (Therapy completed) take 1 tablet by rita th twice daily as needed for constipation senna-docusate sodium (Senokot-S) 8.6-50 MG tablet Take 1 tablet by mouth 2 (two) times a day as needed for constipation Active take 1 tablet by mouth once michelle y senna-docusate sodium (Senokot-S) 8.6-50 MG tablet Take 1 tablet by mouth Daily Active doxycycline hyclate 100 mg oral tablet (4 sources) Tetracycline-class Drug Start: 11-17-2023 End: 11-27-2023 [...] 30 minutes after.. 20 tablet 11/17/2023 11/27/2023 FreeStyle Shaina 2 Sensor misc 1 each (20 sources) Start: 11-19-2023 End: 03-11-2024 FreeStyle Shaina 2 Sensor misc 1 each Start: 11-19-2023 FreeStyle Libr e 2 Sensor misc 1 each melatonin 3 mg oral tablet (4 sources) Start: 12-02-2022 End: 11-17-2023 take 2 tablets by mouth at bedtime melatonin 3 MG tablet Take 6 mg by mouth at bedtime. 12/02/2022 11/17/2023 Discontinued (Therapy completed) 24 hr metoprolol succinate 100 mg extended release oral tablet (20 sources) beta-Adrenergic Shivani Start: 09-03-2021 take 1 tablet by mouth [...] capsule (25 mg) before bedtime. 60 capsule 11/15/2024 11/22/2024 Discontinued (Reorder) rosuvastatin calcium 40 mg oral tablet (4 sources) HMG-CoA Reductase Inhibitor Start: 12-02-2022 End: [...] [Subendocardial infarction, initial episode of care] Onset: 01-17-2023 04-26-2023 Chronic Aortic; peripheral; and visceral artery aneurysms (20 sources) Aneurysm of descending aorta; Translations: [Aortic aneurysm of unspecified site without mention of rupture] Onset: 11-19-2020 04-26-2023 Chronic Cardiac dysrhythmias (20 sources) Paroxysmal atrial fibrillation; Translations: [Atrial fibrillation] Onset: 03-06-2023 07-07-2023 Chronic Cataract (20 sources) Bilateral age-related nuclear cataracts; Translations: [Age-related nuclear cataract, bilateral] Onset: 12-26-2022 12-26-2022 Chronic Chronic obstructive pulmonary disease and bronchiectasis (20 sources) Chronic obstructive lung disease; Translations: [Chronic airway obstruction, not elsewhere classified] Onset: 01-16-2023 04-26-2023 Chronic Coronary atherosclerosis and other heart disease (20 sources) Coronary arteriosclerosis; Translations: [Coronary atherosclerosis of unspecified type of vessel, [place] or graft] Onset: 09-05-2020 Chronic Crushing injury or internal injury (2 sources) Injury of posterior tibial artery; Translations: [Laceration of posterior tibial artery, left leg, initial encounter] 11-17-2023 Episodic Diabetes mellitus with complications (20 sources) Type II diabetes mellitus uncontrolled; Translations: [Type 2 diabetes mellitus with hyperglycemia] Onset: 01-16-2023 03-25-2023 Chronic Diabetes mellitus without complication (11 sources) [...] Chronic Fluid and electrolyte disorders (2 sources) Hypokalemia; Translations: [Hypokalemia] 07-01-2024 Episodic Genitourinary symptoms and ill-defined conditions (4 sources) Scalding pain on urination ; Translations: [Dysuria] 11-17-2023 Episodic Late effects of cerebrovascular disease (2 sources) Unspecified sequelae of cerebral infarction; Translations: [Hemiplegia and hemiparesis following cerebral infarction affecting left non-dominant side] Onset: 11-18-2024 Chronic Lymphadenitis (2 sources) Lymphadenopathy; Translations: [Enlarged lymph nodes, unspecified] 12-08-2023 Episodic Mood disorders (3 sources) Major depressive disorder; Translations: [Major depressive disorder, single episode, unspecified] 12-15-2023 Chronic Mycoses (4 sources) Candidiasis of vagina; Translations: [Vaginal yeast infection] 11-17-2023 Episodic Occlusion or stenosis of precerebral arteries (20 sources) Bilateral stenosis of carotid arteries; Translations: [Occlusion and stenosis of bilateral carotid arteries] Onset: 11-19-2020 04-26-2023 Chronic Osteoarthritis (20 sources) Arthritis; Translations: [Unspecified osteoarthritis, unspecified site] Onset: 04-26-2023 04-26-2023 Chronic Other aftercare (1 source) Drug therapy finding; Translations: [Encounter for therapeutic drug level monitoring] 07-13-2023 Episodic Other aftercare (1 source) custodial (current) use of antithrombotics/antip latelets; Translations: [custodial current use of antithrombotics/antip latelets] Onset: 11-18-2024 Episodic Other and ill-defined cerebrovascular disease (5 sources) Cerebral arterial aneurysm; Translations: [Cerebral aneurysm, nonruptured] 12-16-2022 Chronic Other and ill-defined cerebrovascular disease (20 sources) Aneurysm of middle cerebral artery; Translations: [Cerebral aneurysm, nonruptured] Onset: 01-16-2023 04-26-2023 Chronic Other and ill-defined cerebrovascular disease (1 source) Cerebral aneurysm, nonruptured; Translations: [Nonruptured cerebral aneurysm (HCC)] Onset: 11-18-2024 Chronic Other connective tissue disease (3 sources) Foot swelling; Translations: [Other specified soft tissue disorders] 12-08-2023 Episodic Other connective tissue disease (2 sources) Pain in both feet; Translations: [Pain in right foot] 12-08-2023 Episodic Other hereditary and degenerative nervous system conditions (2 sources) Restless legs; Translations: [Restless legs syndrome] 07-01-2024 Chronic Other injuries and conditions due to external causes (2 sources) At high risk for fall; Translations: [History of falling] 11-17-2023 Episodic Other nervous system disorders (4 sources) Spinal cord compression; Translations: [Unspecified disease of spinal cord] Chronic Other nervous system disorders (20 sources) Chronic pain; Translations: [Other chronic pain] [...] Translations: [Peripheral vascular disease, unspecified] Onset: 11-19-2020 03-25-2023 Chronic Residual codes; unclassified (2 sources) Edema of left lower leg; Translations: [Localized edema] 11-17-2023 Episodic Residual codes; unclassified (2 sources) Edema of foot; Translations: [Localized edema] 11-17-2023 Episodic Residual codes; unclassified (2 sources) Edema of lower extremity; Translations: [Localized edema] 11-17-2023 Episodic Residual codes; unclassified (2 sources) Edema of left lower limb; Translations: [Localized edema] 10-04-2024 Episodic Spondylosis; intervertebral disc disorders; other back problems (20 sources) Degeneration of lumbar intervertebral disc; Translations: [Degeneration of lumbar intervertebral disc] Onset: 04-26-2023 04-26-2023 Chronic Substance-related disorders (20 sources) Smokes tobacco daily; Translations: [Tobacco use disorder] Onset: 04-26-2023 12-16-2022 Chronic Comment on above: 1/2 PPD; Thyroid disorders (20 sources) Hypothyroidism; Translations: [Hypothyroidism, unspecified] Onset: 04-26-2023 04-26-2023 Chronic Unclassified (1 source) New Patient Onset: 06-25-2023 Unclassified (1 source) Pulmonary Nodule Onset: 06-25-2023 Unclassified (20 sources) Patient on antidepressant monitoring plan Onset: 12-15-2023 12-15-2023 Urinary tract infections (2 sources) Acute cystitis; Translations: [Acute cystitis with hematuria] 11-17-2023 Episodic Past or Other Problems Problem Classification Problem Date Documented Date Episodic/Chronic Blindness and vision defects (20 sources) Left homonymous hemianopsia; Translations: [Homonymous bilateral field defects, left side] Onset: 12-26-2022 12-26-2022 Episodic Mood disorders (20 sources) Mood disorders Onset: 11-17-2023 11-17-2023 Other circulatory disease (20 sources) History of cerebrovascular accident; Translations: [Personal history of transient ischemic attack (TIA), and cerebral infarction without residual deficits] Onset: 12-26-2022 04-26-2023 Episodic Other eye disorders (20 sources) Dry eyes; Translations: [Dry eye syndrome of bilateral lacrimal glands] Onset: 12-26-2022 12-26-2022 Episodic Other eye disorders (20 sources) Epithelial basement membrane dystrophy; 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] Onset: 01-12-2024 01-12-2024 Episodic Residual codes; unclassified (1 source) Pain, unspecified; Translations: [Pain, unspecified] Onset: 03-01-2023 Episodic Spondylosis; intervertebral disc disorders; other back problems (20 sources) Lumbar radiculopathy; Translations: [Radiculopathy, lumbar region] Onset: 11-27-2021 04-26-2023 Episodic Results Test Name Value Interpretation Reference Range Facility OVon 11-18-2024 [facility] Office Visit (NSEVMN ) LUCILA TINEO ([id number]) 1950 F Date Time Provider Department 11/18/24 11:30 AM JEFFERY GORDONOk During your visit today, we recorded the following information about you: Pulse Blood pressure Weight Height 95/minute 143/78 77.1 kg 1.626 m Jeffery Gordon APRN.LARRIMAN 11/28/2024 2:18 PM Signed [facility]: [facility] Established Visit Lucila Tineo [facility]#: [id number] Date of Service: 11/18/2024 Primary Care Provider: Mily Andrade CNP Subjective PCP: Mily Andrade CNP Collaborating Physician: Jah Diaz MD Referring Provider: Osei Roe Chief Complaint: Unruptured aneurysm History of Event: 74 year old female with PMH HTN, DM, HLD, hypothyroidism, CAD s/p NSTEMI, PAD, right MCA stroke 09/2022 due to M2 occlusion, and AAA, presenting for follow-up her 1.5cm partially thrombosed and calcified left MCA aneurysm. Accompanied by her daughter, who assists with providing history. TOOTIE 07/07/[address] 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 She suffered significant left-sided deficits due to her stroke and resided in a [facility] facility. She reports improvement in her left-sided deficits, now able to walk with a walker. Her left hand function is variable, sometimes cooperative and sometimes not, but she continues to practice exercises taught by therapists. She is right-handed and able to perform daily activities despite the deficits. She has been working with therapy for strength and recovery, but was recently discharged due to insurance reasons. She expresses interest in continuing therapy and in new treatments to improve her left hand function. She denies new headaches, numbness, tingling, or speech difficulties. She reports persistent vision problems since the stroke, which have not worsened. She also reports worsening left leg swelling over the past several weeks, with intermittent pain that has improved with increased activity. She denies any difference in temperature or sensation compared to the right leg. She had negative US as ordered by her PCP, awaiting upcoming appointment with [facility]. She is currently on triple antithrombotic therapy with Eliquis, aspirin 81 mg, and clopidogrel. She reports frequent bruising, but denies any bleeding from the nose, gums, urine, or stool. She is also on medication for hypertension, with recent blood pressure readings of 134/82 and 116/72. She does not monitor her blood pressure at home. She quit smoking in 2022 after her stroke and denies any current tobacco, drug, or alcohol use. She is currently living in assisted living but plans to transition to a granny pod on her daughter's property. She has a family history of stroke in her father and aortic aneurysm in her son. She denies any family history of brain aneurysm, AVMs, dissections. BP today 143/78. Treated for HTN. Aspirin, clopidogrel, Eliquis. Former smoker, quit 09/2022 No family history of brain aneurysms. Father suffered a stroke. Handedness: right-handed Review of Systems - see HPI Head: (-) headache Eyes: (+) decreased vision Ears/Nose/Mouth/Throat : (-) epistaxis, (-) gingival bleeding Gastrointestinal: (-) melena Genitourinary: (-) hematuria Musculoskeletal: (+) left leg swelling, (-) leg pain Neurological: (+) weakness, (-) numbness, (-) tingling, (-) dizziness, (-) lightheadedness, (-) speech difficulty Hematologic/Lymphatic: (+) bruising ACTIVE PROBLEM LIST Uncontrolled Type 2 Diabetes Mellitus With Hyperglycemia (Hcc) Claudication PAST SURGICAL HISTORY Procedure Laterality Date APPENDECTOMY [...] 4 Units subcutaneously three times a day befo (more content not included)... Normal [facility] CTA HEAD WO/W IVCONon 2024 * * *Final Report* * * DATE OF EXAM: Nov 18 2024 11:15AM [facility] [place] - CTA HEAD WO/W IVCON / PROCEDURE REASON: Nonruptured cerebral aneurysm (HCC) * * * * Physician Interpretation * * * * EXAMINATION: CTA HEAD WO/W IVCON HISTORY: Cerebral aneurysm follow-up TECHNIQUE: Routine CT of the brain without IV contrast. Next, spiral high resolution axial images were obtained through the head following bolus administration of intravenous contrast for CT angiography. 3D maximum intensity projection images were created, reviewed and archived . MQ: CTABPlus_4 Contrast: 80 mL Omnipaque [address] Radiation dose: Integrated Dose-Length Product (DLP) for this visit = 1265 mGy*cm. CT Dose Reduction Employed: mAs-kVp adjusted based on patient size-age COMPARISON: CTA head 07/07/2023 RESULT: Acute change: No evidence of an acute infarct or other acute parenchymal process. Hemorrhage: No evidence of acute intracranial hemorrhage. Computer aided detection reported suspected intracranial hemorrhage at the site of the partially mineralized left MCA aneurysm. Concordance between software and imaging review: Discordant. ECASS hemorrhagic transformation score: Not Applicable Mass Effect / Mass Lesion: There is no evidence of an intracranial mass or extra-axial fluid collection. No significant mass effect. Chronic change: Again demonstrated are large right MCA territory, left SIDE SAWYER territory, and left cerebellar chronic infarcts. There is increased gyriform hyperdensity in the region of evolving right cerebral hemisphere encephalomalacia, consistent with changes of cortical laminar necrosis. Mild hypodensity surrounding the partially mineralized and heterogeneously hyperdense left MCA M2 segment aneurysm, likely reflecting gliosis. Parenchyma: There is mild generalized volume loss. Ventricles: There is ex vacuo dilatation of the posterior right lateral ventricle. Otherwise, ventricular enlargement is concordant with the degree of parenchymal volume loss. Other: The visualized paranasal sinuses are grossly clear. The skull and visualized extracranial soft tissues are grossly normal. ARTERIOGRAM: Acute Stroke on CTA: Evaluation of the individual slices of the CTA demonstrates no evidence of an acute stroke. Anterior Circulation: Compared to 07/07/2023, again demonstrated is a left MCA M2 segment aneurysm with marginal calcifications and prominently central hypoattenuation, noting that the contrast enhancing lumen is decreased in size in the interval, now measuring 2 mm when previously up to 8 mm. There is a similar appearance of the aneurysm neck measuring approximately 2 x 6 x 2 mm (AP x TR x SI). The overall size of the aneurysm is not significantly changed, measuring approximately 12 x 14 x 17 mm (AP x TR x SI). There is a similar appearance of a 2 mm inferiorly directed focal outpouching arising from the distal left ICA, at the expected location of the left posterior communicating artery origin, likely infundibulum (example series 5, image 53). There are atheromatous changes of the bilateral intracranial ICAs resulting in mild luminal narrowing. There is new focal moderate to severe stenosis of the right MCA M2 segment superior division branch (example series 6, image 33). The left MCA is patent, with description of the aneurysm above. The bilateral ACAs appear patent without significant stenosis. Slight dominance of the left A1 segment. There is a patent anterior communicating artery. Vertebrobasilar Circulation: Bilateral intracranial vertebral arteries, basilar artery, and bilateral cloth winder appear patent without significant stenosis, proximal occlusion, or aneurysm. A diminutive right posterior communicating artery is present. A left posterior communicating artery is not discretely visualized. Ship Mate (topogram) images: No significant findings. IMPRESSION: 1. Compared to 07/07/2023, redemonstrated left MCA M2 segment aneurysm with decreased size of the enhancing lumen. Unchanged overall aneurysm size. 2. New right MCA M2 segment moderate to severe focal stenosis. No large vessel occlusion. 3. No acute intracranial findings. Redemonstrated right MCA, left SIDE SAWYER, and left cerebellar chronic infarcts. Arterial blood flow was measured to detect acute large vessel occlusion by computer aided detection software: Not Performed. Concordance between software and imaging review: Not Applicable. Bridge Inspector: МАРИНА Transcribe Date/Time: Nov 18 2024 1:59P Dictated by : ESTEPHANIE BREEN MD This examination was interpreted and the report reviewed and electronically signed by: ESTEPHANIE BREEN MD on Nov 18 2024 2:41PM EST [id number]^ ACN [facility], Radiologist, MD - 11/18/2024 * * *Final Report* * * DATE OF EXAM: Nov 18 2024 11:15AM [facility] [place] - CTA HEAD WO/W IVCON / PROCEDURE REASON: Nonruptured cerebral aneurysm (HCC) * * * * Physician Interpretation * * * * EXAMINATION: CTA HEAD WO/W IVCON HISTORY: Cerebral aneurysm follow-up TECHNIQUE: Routine CT of the brain without IV contrast. Next, spiral high resolution axial images were obtained through the head following bolus administration of intravenous contrast for CT angiography. 3D maximum intensity projection images were created, reviewed and archived . MQ: CTABPlus_4 Contrast: 80 mL Omnipaque [address] Radiation dose: Integrated Dose-Length Product (DLP) for this visit = 1265 mGy*cm. CT Dose Reduction Employed: mAs-kVp adjusted based on patient size-age COMPARISON: CTA head 07/07/2023 RESULT: Acute change: No evidence of an acute infarct or other acute parenchymal process. Hemorrhage: No evidence of acute intracranial hemorrhage. Computer aided detection reported suspected intracranial hemorrhage at the site of the partially mineralized left MCA aneurysm. Concordance between software and imaging review: Discordant. ECASS hemorrhagic transformation score: Not Applicable Mass Effect / Mass Lesion: There is no evidence of an intracranial mass or extra-axial fluid collection. No significant mass effect. Chronic change: Again demonstrated are large right MCA territory, left SIDE SAWYER territory, and left cerebellar chronic infarcts. There is increased gyriform hyperdensity in the region of evolving right cerebral hemisphere encephalomalacia, consistent with changes of cortical laminar necrosis. Mild hypodensity surrounding the partially mineralized and heterogeneously hyperdense left MCA M2 segment aneurysm, likely reflecting gliosis. Parenchyma: There is mild generalized volume loss. Ventricles: There is ex vacuo dilatation of the posterior right lateral ventricle. Otherwise, ventricular enlargement is concordant with the degree of parenchymal volume loss. Other: The visualized paranasal sinuses are grossly clear. The skull and visualized extracranial soft tissues are grossly normal. ARTERIOGRAM: Acute Stroke on CTA: Evaluation of the individual slices of the CTA demonstrates no evidence of an acute stroke. Anterior Circulation: Compared to 07/07/2023, again demonstrated is a left MCA M2 segment aneurysm with marginal calcifications and prominently central hypoattenuation, noting that the contrast enhancing lumen is decreased in size in the interval, now measuring 2 mm when previously up to 8 mm. There is a similar appearance of the aneurysm neck measuring approximately 2 x 6 x 2 mm (AP x TR x SI). The overall size of the aneurysm is not significantly changed, measuring approximately 12 x 14 x 17 mm (AP x TR x SI). There is a similar appearance of a 2 mm inferiorly directed focal outpouching arising from the distal left ICA, at the expected location of the left posterior communicating artery origin, likely infundibulum (example series 5, image 53). There are atheromatous changes of the bilateral intracranial ICAs resulting in mild luminal narrowing. There is new focal moderate to severe stenosis of the right MCA M2 segment superior division branch (example series 6, image 33). The left MCA is patent, with description of the aneurysm above. The bilateral ACAs appear patent without significant stenosis. Slight dominance of the left A1 segment. There is a patent anterior communicating artery. Vertebrobasilar Circulation: Bilateral intracranial vertebral arteries, basilar artery, and bilateral cloth winder appear patent without significant stenosis, proximal occlusion, or aneurysm. A diminutive right posterior communicating artery is present. A left posterior communicating artery is not discretely visualized. Ship Mate (topogram) images: No significant findings. IMPRESSION: 1. Compared to 07/07/2023, redemonstrated left MCA M2 segment aneurysm with decreased size of the enhancing lumen. Unchanged overall aneurysm size. 2. New right MCA M2 segment moderate to severe focal stenosis. No large vessel occlusion. 3. No acute intracranial findings. Redemonstrated right MCA, left SIDE SAWYER, and left cerebellar chronic infarcts. Arterial blood flow was measured to detect acute large vessel occlusion by computer aided detection software: Not Performed. Concordance between software and imaging review: Not Applicable. Bridge Inspector: МАРИНА Transcribe Date/Time: Nov 18 2024 1:59P Dictated by : ESTEPHANIE BREEN MD This examination was interpreted and the report reviewed and electronically signed by: ESTEPHANIE BREEN MD on Nov 18 2024 2:41PM EST [id number]^SI^ ACN [facility] CTA HEAD WO/W IVCON * * *Final Report* * * DATE OF EXAM: Nov 18 2024 11:15AM [facility] [place] - CTA HEAD WO/W IVCON / PROCEDURE REASON: Nonruptured cerebral aneurysm (HCC) * * * * Physician Interpretation * * * * EXAMINATION: CTA HEAD WO/W IVCON HISTORY: Cerebral aneurysm follow-up TECHNIQUE: Routine CT of the brain without IV contrast. Next, spiral high resolution axial images were obtained through the head following bolus administration of intravenous contrast for CT angiography. 3D maximum intensity projection images were created, reviewed and archived . MQ: CTABPlus_4 Contrast: 80 mL Omnipaque [address] Radiation dose: Integrated Dose-Length Product (DLP) for this visit = 1265 mGy*cm. CT Dose Reduction Employed: mAs-kVp adjusted based on patient size-age COMPARISON: CTA head 07/07/2023 RESULT: Acute change: No evidence of an acute infarct or other acute parenchymal process. Hemorrhage: No evidence of acute intracranial hemorrhage. Computer aided detection reported suspected intracranial hemorrhage at the site of the partially mineralized left MCA aneurysm. Concordance between software and imaging review: Discordant. ECASS hemorrhagic transformation score: Not Applicable Mass Effect / Mass Lesion: There is no evidence of an intracranial mass or extra-axial fluid collection. No significant mass effect. Chronic change: Again demonstrated are large right MCA territory, left SIDE SAWYER territory, and left cerebellar chronic infarcts. There is increased gyriform hyperdensity in the region of evolving right cerebral hemisphere encephalomalacia, consistent with changes of cortical laminar necrosis. Mild hypodensity surrounding the partially mineralized and heterogeneously hyperdense left MCA M2 segment aneurysm, likely reflecting gliosis. Parenchyma: There is mild generalized volume loss. Ventricles: There is ex vacuo dilatation of the posterior right lateral ventricle. Otherwise, ventricular enlargement is concordant with the degree of parenchymal volume loss. Other: The visualized paranasal sinuses are grossly clear. The skull and visualized extracranial soft tissues are grossly normal. ARTERIOGRAM: Acute Stroke on CTA: Evaluation of the individual slices of the CTA demonstrates no evidence of an acute stroke. Anterior Circulation: Compared to 07/07/2023, again demonstrated is a left MCA M2 segment aneurysm with marginal calcifications and prominently central hypoattenuation, noting that the contrast enhancing lumen is decreased in size in the interval, now measuring 2 mm when previously up to 8 mm. There is a similar appearance of the aneurysm neck measuring approximately 2 x 6 x 2 mm (AP x TR x SI). The overall size of the aneurysm is not significantly changed, measuring approximately 12 x 14 x 17 mm (AP x TR x SI). There is a similar appearance of a 2 mm inferiorly directed focal outpouching arising from the distal left ICA, at the expected location of the left posterior communicating artery origin, likely infundibulum (example series 5, image 53). There are atheromatous changes of the bilateral intracranial ICAs resulting in mild luminal narrowing. There is new focal moderate to severe stenosis of the right MCA M2 segment superior division branch (example series 6, image 33). The left MCA is patent, with description of the aneurysm above. The bilateral ACAs appear patent without significant stenosis. Slight dominance of the left A1 segment. There is a patent anterior communicating artery. Vertebrobasilar Circulation: Bilateral intracranial vertebral arteries, basilar artery, and bilateral cloth winder appear patent without significant stenosis, proximal occlusion, or aneurysm. A diminutive right posterior communicating artery is present. A left posterior communicating artery is not discretely visualized. Ship Mate (topogram) images: No significant findings. IMPRESSION: 1. Compared to 07/07/2023, redemonstrated left MCA M2 segment aneurysm with decreased size of the enhancing lumen. Unchanged overall aneurysm size. 2. New right MCA M2 segment moderate to severe focal stenosis. No large vessel occlusion. 3. No acute intracranial findings. Redemonstrated right MCA, left SIDE SAWYER, and left cerebellar chronic infarcts. Arterial blood flow was measured to detect acute large vessel occlusion by computer aided detection software: Not Performed. Concordance between software and imaging review: Not Applicable. Bridge Inspector: МАРИНА Transcribe Date/Time: Nov 18 2024 1:59P Dictated by : ESTEPHANIE BREEN MD This examination was interpreted and the report reviewed and electronically signed by: ESTEPHANIE BREEN MD on Nov 18 2024 2:41PM EST [id number] Normal [facility] Radiology Study observation (narrative) [facility] CTA HEAD WO/W Sidney Hernandez y: Radiologist Radiology on 11-18-2024 [facility] Healthcare Work Phone: Fernando [facility]28-20[facility] SERALUCIL[facility] ([id number]) 1950 F Date Time Provider Department 10/28/24 BRO [facility]WK During your visit today, we recorded the following information about you: Jacqui Juarez 10/28/2024 10:17 AM Signed Left message for patient to call office to reschedule 11/02/2024 appointment Jacqui Juarez 10/28/2024 12:46 PM Signed Patient's daughter called and rescheduled Allergies As of Date: 10/28/2024 Noted Allergy Reaction PENICILLINS 10/11/2018 4 - Hives Date Reviewed: 07/07/2023 Reviewed by: Latoya Greene MA - Fully Assessed Prescriptions as of 10/28/2024 - rOPINIRole (REQUIP) 0.5 mg tablet Take [...] guidelines link. Problem List As Of Date 10/28/2024 Noted Resolved Uncontrolled type 2 diabetes mellitus with hype*03/25/2023 Claudication (HCC) [I73.9] 03/25/2023 Encounter Status:Closed by JACQUI JUAREZ on 10/28/24 Normal [facility] US LOWER EXTREMITY PAYAL RIAL DUPLEX LEFT WITH ABIon 10-14-2024 [facility] US LOWER EXTREMITY ARTERIAL DUPLEX LEFT WITH MICHAEL [facility] US LOWER EXTREMITY ARTERIAL DUPLEX LEFT WITH MICHAEL: 10/14/2024 2:47 PM CLINICAL HISTORY: edema. COMPARISON: None available. Grayscale, color and waveform Doppler analysis of both lower extremity arterial systems was performed. FINDINGS: The arterial system is normal in caliber, without arterial occlusion, aneurysm or evidence of dissection. Mildly elevated velocities are present within both common femoral arteries, suggesting 30 to 49% stenosis. There are no other significantly elevated velocities identified. Mild to moderate atherosclerotic disease is present, with pulsatile predominantly monophasic waveforms. Right brachial artery pressure 144 cm/s, right ankle posterior tibial pressure 126 (index 0.83), and right ankle dorsalis pedis pressure 109) index 0.72) Left brachial artery pressure 152 cm/s, left ankle posterior tibial pressure >250, and left ankle dorsalis pedis pressure could not be obtained. Both great toe pressures >250 Maximum systolic velocities are: RIGHT LOWER EXTREMITY: Right common femoral artery 185 cm/s. Right proximal superficial femoral artery 69 cm/s. Right mid superficial femoral artery 49 cm/s. Right distal superficial femoral artery 56 cm/s. Right popliteal artery 45 cm/s. Right proximal anterior tibial artery 41 cm/s. Right proximal posterior tibial artery 27 cm/s. Right mid posterior tibial artery 29 cm/s. Right distal posterior tibial artery 30 cm/s. Right proximal peroneal artery 35 cm/s. LEFT LOWER EXTREMITY: Left common femoral artery 165 cm/s. Left proximal superficial femoral artery 93 cm/s. Left mid superficial femoral artery 136 cm/s. Left distal superficial femoral artery 145 cm/s. Left popliteal artery 70 cm/s. Left proximal anterior tibial artery 27 cm/s. Left proximal posterior tibial artery 40 cm/s. Left mid posterior tibial artery 23 cm/s. Left distal posterior tibial artery 17 cm/s. Left proximal peroneal artery 66 cm/s. IMPRESSION: NO EVIDENCE OF A FLOW-LIMITING STENOSIS, ARTERIAL OCCLUSION, OR ANEURYSM IDENTIFIED. MILD TO MODERATE DISTAL ATHEROSCLEROTIC DISEASE OF BOTH LOWER EXTREMITIES. STENOSIS CRITERIA % Stenosis Peak Sharlene Normal <150 cm/s 30%-49% 150-200 cm/s 50%-75% 200-400 cm/s >75% >400 cm/s Occlusion No color saturation Gregg DV, Tyree JE, et al. Comparison of contrast angiography to arterial mapping with color flow duplex imaging in the lower extremities. J Vasc Surg 1989;10:522-32 ELECTRONICALLY SIGNED BY: Ja Ferrera MD Normal Not Available CT PELVIS W IV CONTRASTon CT PELVIS W IV CONTRAST EXAMINATION: CT PELVIS W IV CONTRAST HISTORY: left inguinal mass TECHNIQUE: Multiple axial images were obtained of the pelvis with contrast. Multiplanar reformats were obtained. Delayed images were obtained. All CT scans at this facility use dose modulation, iterative reconstruction, and/or weight based dosing when appropriate to reduce radiation dose to as low as reasonably achievable. COMPARISON: Ultrasound October 04, 2024 FINDINGS: Within the subcutaneous soft tissues of the left inguinal region there is an ovoid 2.4 cm structure that is simple fluid density and does not appear to enhance. This structure extends to the skin surface and there is no adjacent edema. Normal-appearing bilateral inguinal lymph nodes are identified. Ectasia of the abdominal aorta, which is only partially visualized. The superior most portion of the abdominal aorta appears to measure up to 3.2 cm in diameter. Atherosclerotic calcification of the abdominal aorta. The visualized large and small bowel appear within normal limits. No abdominopelvic lymphadenopathy. No acute osseous abnormality. Degenerative changes of the spine. IMPRESSION: Ovoid structure within the left inguinal soft tissues extending to the skin most likely represents an epidermal inclusion cyst. Continued clinical surveillance is recommended. The superior most portion of the abdominal aorta appears to measure up to 3.[address] of the abdomen and pelvis with contrast is recommended to evaluate for abdominal aortic aneurysm. ELECTRONICALLY SIGNED BY: Ange Belle DO Normal Not Available US.doppler Lower extremity v ein - lefton 10-05-2024 No sonographic evidence of deep venous thrombosis of the left lower extremity. Nonspecific hypoechoic structure of the left inguinal soft tissues measures 1.7 x 2.[address] of the pelvis with contrast is recommended to further evaluate. ELECTRONICALLY SIGNED BY: Ange Belle DO IMAGING EXAM: [facility] US LOWER EXTREMITY VENOUS DUPLEX LEFT TECHNIQUE: LEFT lower extremity venous duplex exam was performed. HISTORY: edema, pain. FINDINGS: The common femoral, femoral, deep femoral, popliteal and calf veins were evaluated for deep venous thrombosis. The veins were evaluated with color Doppler imaging, compression and augmentation if possible. No sonographic evidence of deep venous thrombosis. Nonspecific left inguinal lymph node measures 2 x 2.3 x 0.8 cm. Nonspecific hypoechoic structure of the left inguinal soft tissues measures 1.7 x 2.4 x 1.2 cm. IMAGING Ange Belle DO - 10/05/2024 EXAM: [facility] US LOWER EXTREMITY VENOUS DUPLEX LEFT TECHNIQUE: LEFT lower extremity venous duplex exam was performed. HISTORY: edema, pain. FINDINGS: The common femoral, femoral, deep femoral, popliteal and calf veins were evaluated for deep venous thrombosis. The veins were evaluated with color Doppler imaging, compression and augmentation if possible. No sonographic evidence of deep venous thrombosis. Nonspecific left inguinal lymph node measures 2 x 2.3 x 0.8 cm. Nonspecific hypoechoic structure of the left inguinal soft tissues measures 1.7 x 2.4 x 1.2 cm. IMPRESSION: No sonographic evidence of deep venous thrombosis of the left lower extremity. Nonspecific hypoechoic structure of the left inguinal soft tissues measures 1.7 x 2.[address] of the pelvis with contrast is recommended to further evaluate. ELECTRONICALLY SIGNED BY: Ange Belle DO [facility] US.doppler Lower extremity v ein - leftOrdered By: Ange Belle on 10-05-2024 [facility] Work Phone: US.doppler Lower extremity v ein - lefton 10-04-2024 Radiology Study observation (narrative) [facility] US LOWER EXTREMITY VENO US DUPLEX LEFTon 10-04-2024 VAS US LOWER EXTREMITY VENOUS DUPLEX LEFT EXAM: VAS US LOWER EXTREMITY VENOUS DUPLEX LEFT TECHNIQUE: LEFT lower extremity venous duplex exam was performed. HISTORY: edema, pain. FINDINGS: The common femoral, femoral, deep femoral, popliteal and calf veins were evaluated for deep venous thrombosis. The veins were evaluated with color Doppler imaging, compression and augmentation if possible. No sonographic evidence of deep venous thrombosis. Nonspecific left inguinal lymph node measures 2 x 2.3 x 0.8 cm. Nonspecific hypoechoic structure of the left inguinal soft tissues measures 1.7 x 2.4 x 1.2 cm. IMPRESSION: No sonographic evidence of deep venous thrombosis of the left lower extremity. Nonspecific hypoechoic structure of the left inguinal soft tissues measures 1.7 x 2.[address] of the pelvis with contrast is recommended to further evaluate. ELECTRONICALLY SIGNED BY: Ange Belle DO Normal Not Available HbA1c (Bld) [Mass fraction]o n 09-16-2024 Interpretation and review of laboratory results Abnormal [facility] - Hematology and Cell countson 09-16-2024 HbA1c (Bld) [Mass fraction] 8.9 % [facility] Urinalysis macro (dipstick) panel (U)Ordered By: Pilar Nguyen on 07-01-2024 Bilirubin, UA Negative Negative - 4(70) +++ mg/dL [facility] Blood, UA Negative Negative - 50 Moncho/mcL [facility] Clarity, UA Clear [facility] Color, UA Yellow [facility] Glucose, UA Negative Negative - 2000(110) ++++ mg/dL [facility] Interpretation and review of laboratory results Abnormal [facility] Ketones, UA Negative Negative - 160(16) ++++ mg/dL [facility] Leukocytes, UA Trace Negative - 500+++ Cinthia/mcL [facility] Nitrite, UA Positive Negative - Positive [facility] pH, UA 7 5 - 9 [facility] Protein, UA Trace Negative - 2000(20) ++++ mg/dL [facility] Spec Grav, UA 1.01 1 - 1.03 [facility] Urobilinogen, UA 0.2 0.2 - 12 mg/dL [facility] HbA1c (Bld) [Mass fraction]o n 06-10-2024 Interpretation and review of laboratory results Abnormal [facility] - Hematology and Cell countson 06-10-2024 HbA1c (Bld) [Mass fraction] 8.4 % [facility] HbA1c (Bld) [Mass fraction]o n 03-11-2024 Interpretation and review of laboratory results Abnormal [facility] - Hematology and Cell countson 03-11-2024 HbA1c (Bld) [Mass fraction] 9.2 % [facility] US Eye+Orbit - bilateralon 1 03-13-2023 Diagnosis: Cataract both eyes (OU) Testing Indication: Performed for preop measurements in the determination of an intraocular lens (IOL) for both eyes (OU) Test Reliability: Good quality both eyes (OU) Interpretation: Good measurements for intraocular lens (IOL) calculation purposes. Calculation made for both eyes (OU). [facility] Radiology Study observation (narrative) [facility] CNCOon 12-17-2023 CNCO Letter Text Normal [facility] UA (CLEAN/CATCH) MICROSC OPIC IF INDICATEon 12-11-2023 BILIRUBIN URINE Negative NEGATIVE [facility] BLOOD URINE Negative NEGATIVE [facility] Clarity (U) CLEAR CLEAR [facility] Color (U) LT. YELLOW YELLOW [facility] GLUCOSE URINE UA >=1000 Abnormal NEGATIVE mg/dL [facility] Interpretation and review of laboratory results Abnormal [facility] Ketones Ql (U) Negative NEGATIVE mg/dL [facility] Leukocyte esterase Test strip Ql (U) Negative NEGATIVE [facility] NITRITE URINE Negative NEGATIVE [facility] pH (U) 6.0 [pH] 5.0 - 9.0 [facility] PROTEIN URINE Negative NEG/TRACE mg/dL [facility] SPECIFIC GRAVITY URINE 1.010 1.005 - 1.025 [facility] URINE MICROSCOPIC INDICATED NO [facility] UROBILINOGEN URINE 0.2 EU/dL 0.2 - 1.0 EU/dL [facility] Bacteria identified Cx Nom ( U)on 11-19-2023 Appearance (U) Adequate [facility] Internal identifier for Provider [id number] [facility] Specimen source Nom (Unsp spec) URINE [facility] STATUS FINAL [facility] Performing Organization Information Site ID: [email or web address] Name: [email or web address] Address: [address] [place] [id number] Director: Blade Crane MD [facility] - Microbiology an d Antimicrobial susceptibilityon 11-19-2023 Bacteria identified Cx Nom (U) SEE NOTE [facility] Comment on above: Mixed genital rodriguez isolated. These superficial bacteria are not indicative of a urinary tract infection. No further organism identification is warranted on this specimen. If clinically indicated, recollect clean-catch, mid-stream urine and transfer immediately to Urine Culture Transport Tube. HbA1c (Bld) [Mass fraction]o n 11-17-2023 Interpretation and review of laboratory results Abnormal [facility] - Hematology and Cell countson 11-17-2023 HbA1c (Bld) [Mass fraction] 8.7 % [facility] US.doppler Lower extremity v ein - lefton [...] Electronically Signed Dom Najera M.D. 2023-11-17 16:23:40 [facility] Radiology Study observation (narrative) [facility] US.doppler Lower extremity v ein - leftOrdered By: Dom Najera on 11-17-2023 [facility] Work Phone: Urinalysis macro (dipstick) panel (U)on 11-17-2023 Bilirubin, UA Negative Negative - 4(70) +++ mg/dL [facility] Blood, UA Positive Negative - 50 Moncho/mcL [facility] Clarity, UA Cloudy [facility] Color, UA Yellow [facility] Glucose, UA Positive Negative - 1999(110) ++++ mg/dL [facility] Interpretation and review of laboratory results Abnormal [facility] Ketones, UA Negative Negative - 160(16) ++++ mg/dL [facility] Leukocytes, UA Positive Negative - 500+++ Cinthia/mcL [facility] Nitrite, UA Negative Negative - Positive [facility] pH, UA 6.5 5 - 9 [facility] Protein, UA Negative Negative - 2000(20) ++++ mg/dL [facility] Spec Grav, UA 1.005 1 - 1.03 [facility] Urobilinogen, UA 0.2 0.2 - 12 mg/dL [facility] VASC US LOWER EXTREMITY VENO US DUPLEX LEFTon 11-17-2023 VASC US LOWER EXTREMITY VENOUS DUPLEX LEFT Exam: [...] 4. Substantial soft tissue swelling. Electronically Signed Omid Rivera M.D. 2023-11-17 15:21:35 Normal Not Available [...] 4. Substantial soft tissue swelling. Electronically Signed Omid Rivera M.D. 2023-11-17 15:21:35 IMAGING Omid Rivera MD - 11/17/2023 Exam: XR - [...] 4. Substantial soft tissue swelling. Electronically Signed Omid Rivera M.D. 2023-11-17 15:21:35 [facility] Radiology Study observation (narrative) [facility] XR Foot - left 3 ViewsOrdere d By: Omid Rivera on 11-17-2023 [facility] Work Phone: CREATININE, BLOOD (POC)on Creatinine [Mass/Vol] 0.70 mg/dL 0.7 - 1.4 mg/dL [facility] eGFR (POCT) mL/min/1.73 m2 [facility] Location:Radiology [facility], [address] [place] [address], [address] [place] [address] POINT OF CARE [facility] CTA Head vessels WO and W co ntrast Marisol 07-07-2023 IMPRESSION: Brain: No acute intracranial infarction or hemorrhage. Encephalomalacia within the right MCA and left SIDE SAWYER territories. CTA brain: Left MCA M2 segment aneurysm with interval increase in the lumen size as detailed. No large vessel occlusion or high-grade arterial stenosis intracranially. Arterial blood flow was measured to detect acute large vessel occlusion by computer aided detection software: Not Performed. Concordance between software and imaging review: Concordant. Bridge Inspector: МАРИНА Transcribe Date/Time: Jul 07 2023 9:47A Dictated by : DURAN FRANCO MD This examination was interpreted and the report reviewed and electronically signed by: JOSE CRUZ CARBAJAL MD on Jul 07 2023 11:52AM [facility] DIVISION OF RADIOLOGY * * *Final Report* * * DATE OF EXAM: Jul 07 2023 9:44AM [facility] 0023 - CTA HEAD WO/W IVCON / [...] superior parietal lobule. Encephalomalacia within the left SIDE SAWYER territory including the occipital lobe. Hypoattenuation within [...] circulation: Distal vertebral arteries, basilar trunk and cloth winder are patent without aneurysm or dissection. Opacified dural venous sinuses and major deep and superficial draining veins are patent. Ship Mate (topogram) images: No additional findings. DIVISION OF RADIOLOGY Provider, [facility] - 07/07/2023 * * *Final Report* * * DATE OF EXAM: Jul 07 2023 9:44AM [facility] 0023 - CTA HEAD WO/W IVCON / [...] superior parietal lobule. Encephalomalacia within the left SIDE SAWYER territory including the occipital lobe. Hypoattenuation within [...] circulation: Distal vertebral arteries, basilar trunk and cloth winder are patent without aneurysm or dissection. Opacified dural venous sinuses and major deep and superficial draining veins are patent. Ship Mate (topogram) images: No additional findings. IMPRESSION IMPRESSION: Brain: No acute intracranial infarction or hemorrhage. Encephalomalacia within the right MCA and left SIDE SAWYER territories. CTA brain: Left MCA M2 segment aneurysm with interval increase in the lumen size as detailed. No large vessel occlusion or high-grade arterial stenosis intracranially. Arterial blood flow was measured to detect acute large vessel occlusion by computer aided detection software: Not Performed. Concordance between software and imaging review: Concordant. Bridge Inspector: МАРИНА Transcribe Date/Time: Jul 07 2023 9:47A Dictated by : DURAN FRANCO MD This examination was interpreted and the report reviewed and electronically signed by: JOSE CRUZ CARBAJAL MD on Jul 07 2023 11:52AM EST [facility] Radiology Study observation (narrative) [facility] CTA Head vessels WO and W co ntrast IVOrdered By: [facility] Provider on 07-07-2023 [facility] No Panel Informationon 04-14 Interpretation and review of laboratory results Abnormal [facility] UA (CLEAN/CATCH) TEST HOLE DRILLER/ERICK RO IF IND.on 04-14-2023 BILIRUBIN URINE Negative NEGATIVE [facility] BLOOD URINE Negative NEGATIVE [facility] Clarity (U) CLEAR CLEAR [facility] Color (U) LT. YELLOW YELLOW [facility] GLUCOSE URINE UA >=1000 Abnormal NEGATIVE mg/dL [facility] Ketones Ql (U) Negative NEGATIVE mg/dL [facility] Leukocyte esterase Test strip Ql (U) SMALL Abnormal NEGATIVE [facility] NITRITE URINE Negative NEGATIVE [facility] pH (U) 6.0 [pH] 5.0 - 9.0 [facility] PROTEIN URINE Negative NEG/TRACE mg/dL [facility] SPECIFIC GRAVITY URINE 1.010 1.005 - 1.025 [facility] URINE MICROSCOPIC INDICATED YES [facility] UROBILINOGEN URINE 0.2 EU/dL 0.2 - 1.0 EU/dL [facility] URINE MICROSCOPIC ONLYon 04-14-2023 BACTERIA URINE SMALL Abnormal NONE SEEN #/HPF [facility] CAST SEEN? NONE SEEN NONE SEEN #/LPF [facility] CRYSTALS SEEN? None Seen None Seen #/HPF [facility] MUCUS URINE TRACE Abnormal NONE SEEN [facility] SQUAMOUS EPITHELIAL CELL URINE FEW Abnormal NONE/RARE #/[facility]2 [facility] WBC 10-20 Abnormal NONE SEEN #/HPF [facility] URINE CULTURE INDICATED YES [facility] YEAST URINE SEEN Abnormal NONE SEEN [facility] Comment on above: 4+ BUDDING SCREENING MAMMOGRAM W/SAULO, BILATERAL*on 04-24-2022 SCREENING MAMMOGRAM [...] VERY IMPORTANT TO YOUR HEALTH. THE CURRENT [employer] [employer] OF RADIOLOGY AND [employer] COMPREH[employer]WORK GUIDELINES RECOMMENDS ANNUAL MAMMOGRAPHY BEGINNING AT AGE 40 THIS FACILITY USES A REMINDER SYSTEM TO ENSURE ALL PATIENTS RECEIVE REMINDER NOTIFICATIONS AT THE APPROPRIATE TIME BASED ON THE RECOMMENDATIONS OF THIS EXAM. Report reported and signed by Silviano Roth on 04/25/2022 0759 Normal [facility] Benefits Specialist Recruiter Office Visit (Cardiology)on 12-11-2021 Follow-up visit Diagnoses/Problems [...] we can help. You may also call [phone] for free resources and assistance.; Status:Complete - [...] Recorded: 11Dec2021 11:20AM Heart Rate76, L Radial Dfbiydus101, LUE, Sitting Gshutxxvs51, LUE, Sitting Height5 ft 4 in Mdfcib861 lb BMI Cqtuoryubq92.98 kg/m2 BSA Calculated1.79 Tobacco Usea) Yes Patient encouraged to stop using tobacco productsYes PHQ-2 #1. Over the last 2 weeks have you felt down, depressed or hopeless? (If yes, answer PHQ-9 below)No PHQ-2 #2. Over the last 2 weeks have you felt little interest or pleasure in doing things? (If yes, answer PHQ-9 below)No Fa (more content not included)... Normal [employer] Tobacco Screening.on 022 Adult depression screening assessment No [facility] 250 DO Work Phone: Fall risk assessment b) One or more fall s in the last year [facility] [employer] 250 DO Work Phone: Tobacco use status CPHS a) Yes [facility] [employer] DO Work Phone: Tobacco Screening. Yes [facility] 250 DO Work Phone: XR Spine Lumbar Complete w/F tyrone AND [place] 11-18-2021 XR Spine Lumbar Complete w/Flex AND [...] by Silviano Roth on 11/18/2021 1519 Normal [facility] Benefits Specialist Recruiter US Venous, Bilateral, Lower [place] 10-02-2021 US Venous, Bilateral, Lower Ext FINDINGS: [...] by Silviano Roth on 10/03/2021 0652 Normal [facility] Benefits Specialist Recruiter Office Visit (Cardiology)on 02-05-2021 Follow-up visit Diagnoses/Problems Assessed Hypertension (401.9) (I10) Remains suboptimal CAD (coronary artery disease) (414.00) (I25.10) July 2020 ACS admit Cath: pRCA SENIOR COUNSEL with unsuccessful antegrade attempt, fills left to [...] ONCE DAILY Basic Metabolic Panel; Status:Active; Requested for:[id number]; SocHx: Current every day smoker Tobacco Use Screening; Status:Complete; Done: [id number] Patient Instructions PLAN: Through informed decision making [...] contact the office if new symptoms arise. CONTRACTOR BUYER in 2 weeks Adhering to 2017 AHA/ACC [...] hospitalized overnight and treated with infusion. Saw Pipe [employer] inpatient at [facility] due to minimally elevated troponin. Fully recovered. [...] smoker (305.1) (more content not included)... Normal [employer] Tobacco Screening.on Fall risk assessment a) No falls within the last year [facility] 250 DO Work Phone: Tobacco use status CPHS a) Yes [facility] 250 DO Work Phone: Tobacco Screening. Yes [facility] 250 DO Work Phone: Tobacco Screening.on Fall risk assessment a) No falls within the last year [facility] 600 DO Work Phone: Tobacco use status CP a) Yes [facility] 600 DO Work Phone: Tobacco Screening. Yes [facility] 600 DO Work Phone: Comprehensive Metabolic Pane dom 08-08-2020 Albumin [Mass/Vol] 3.1 g/dL Low 3.2-5.5 [facility] Comment on above: Performed By: #### C MP #### [facility] [address] [id number] [facility] Albumin/Globulin [Mass ratio] 0.9 {ratio} Normal [facility] Comment on above: Performed By: #### C MP #### [facility] [address] [id number] [facility] ALP [Catalytic activity/Vol] 98 U/L High 32-92 [facility] Comment on above: Performed By: #### C MP #### [facility] [address] [place] [address] [place] ALT [Catalytic activity/Vol] 17 U/L Normal 10-60 [facility] Comment on above: Performed By: #### C MP #### [facility] [address] AST [Catalytic activity/Vol] 24 U/L Normal 10-42 [facility] Comment on above: Performed By: #### C MP #### [facility] [address] Bilirubin [Mass/Vol] 0.6 mg/dL Normal 0.3-1.2 [facility] Comment on above: Performed By: #### C MP #### [facility] [address] Calcium [Mass/Vol] 8.8 mg/dL Normal 8.2-10.2 [facility] Comment on above: Performed By: #### C MP #### [facility] [address] [place] [address] [place] Chloride [Moles/Vol] 103 mmol/L Normal 95-114 [facility] Comment on above: Performed By: #### C MP #### [facility] [address] [place] [address] CO2 [Moles/Vol] 20.4 mmol/L Low 22.0-30.0 [facility] Comment on above: Performed By: #### C MP #### [facility] [address] [place] [address] Creatinine [Mass/Vol] 1.06 mg/dL High 0.44-1.03 [facility] Comment on above: Performed By: #### C MP #### [facility] [address] [place] [address] [place] Creatinine Clr Calc Pharmacy 49.44 [facility] Comment on above: Result Comment: PERF ORMED BY: [place] [address] PATHOLOGIST FISHING VESSEL DECKHAND DOMINGA SOLIMAN M.D. Performed By: #### C MP #### [facility] [address] [place] [address] [place] Estimated GFR ( Vania > 60 Normal [facility] Comment on above: Result Comment: GFR estimated reference range: According to KDOQI guidelines, <60 ml/min/1.73m2 is sufficient to diagnose a patient with chronic kidney disease. Performed By: #### C MP #### [address] Estimated GFR (Non- Am 51 [facility] Comment on above: Performed By: #### C MP #### [address] Globulin (S) [Mass/Vol] 3.3 g/dL Normal [facility] Comment on above: Performed By: #### C MP #### [address] Glucose [Mass/Vol] 282 mg/dL High 70-100 [facility] Comment on above: Result Comment: [place] om Glucose Reference Range is dependent on time and content of last meal. Glucose of more than 200 mg/dL in a nonstressed, ambulatory subject supports the diagnosis of Diabetes Mellitus. ADA recommended reference range Performed By: #### C MP #### [address] Potassium [Moles/Vol] 4.5 mmol/L Normal 3.5-5.1 [facility] Comment on above: Performed By: #### C MP #### [address] Protein [Mass/Vol] 6.4 g/dL Normal 6.1-7.9 [facility] Comment on above: Performed By: #### C MP #### [place] [address] [place] Sodium [Moles/Vol] 134 mmol/L Low 136-146 [facility] Comment on above: Performed By: #### C MP #### [place] [address] [place] Urea nitrogen [Mass/Vol] 29 mg/dL High 9-23 [facility] Comment on above: Performed By: #### C MP #### [address] [place] [address] [facility] ECG 12 lead ECGon 08-08-2020 ECG 12 lead ECG [facility] Main [place] [address] [place] [address] Electrocardiograph Report Signed Patient: Lucila Tineo MR#: [id number] : 1950 Acct:[id number] Age/Sex: 70 / F ADM Date: 08/06/20 Loc: Room: [address] [place] [address] Type: ADM IN Attending Dr: Drew Patterson [...] MD 08/08/20 0734 Signed By: 08/08/20 1017 [facility] Glucose Poct Glucometerson 0 08-08-2020 Commemt1 Glu2: Cleaned Meter [facility] Comment on above: Result Comment: PERF ORMED BY: [place] [address] PATHOLOGIST [employer] DECKHAND DOMINGA SOLIMAN M.D. Performed By: #### P T, CBC, PTT #### [facility] [address] [place], [place] [id number] [facility] Glucose [Mass/Vol] 354 mg/dL [facility] Comment on above: Result Comment: [facility] Glucose Reference Range is dependent on time and content of last meal. Glucose of more than 200 mg/dL in a nonstressed, ambulatory subject supports the diagnosis of Diabetes Mellitus. Performed By: #### P T, CBC, PTT #### [address] Commemt1 Glu2: Cleaned Meter [facility] Comment on above: Result Comment: PERF ORMED BY: [place] [address] PATHOLOGIST [employer] DECKHAND DOMINGA SOLIMAN M.D. Performed By: #### P T, CBC, PTT #### [address] Glucose [Mass/Vol] 380 mg/dL [facility] Comment on above: Result Comment: [place] om Glucose Reference Range is dependent on time and content of last meal. Glucose of more than 200 mg/dL in a nonstressed, ambulatory subject supports the diagnosis of Diabetes Mellitus. Performed By: #### P T, CBC, PTT #### [address] Glucose [Mass/Vol] 80 mg/dL Normal [facility] Comment on above: Result Comment: [place] om Glucose Reference Range is dependent on time and content of last meal. Glucose of more than 200 mg/dL in a nonstressed, ambulatory subject supports the diagnosis of Diabetes Mellitus. PERFORMED BY: [place] [address] PATHOLOGIST [employer] DECKHAND DOMINGA SOLIMAN M.D. Performed By: #### P T, CBC, PTT #### [address] Commemt1 [facility] Comment on above: Result Comment: Glu2 : FOLLOW HYPOGLYCEMIC Performed By: #### P T, CBC, PTT #### [address] Commemt2 Cleaned Meter [facility] Comment on above: Performed By: #### P T, CBC, PTT #### [address] Commemt3 WILL NOTIFY DR/SHREYA [facility] Comment on above: Result Comment: PERF ORMED BY: [facility] [address] [place] [address] PATHOLOGIST [employer] DECKHAND DOMINGA SOLIMAN M.D. Performed By: #### P T, CBC, PTT #### [facility] [address] Glucose [Mass/Vol] 42 mg/dL Off scale low [facility] Comment on above: Result Comment: [facility] Glucose Reference Range is dependent on time and content of last meal. Glucose of more than 200 mg/dL in a nonstressed, ambulatory subject supports the diagnosis of Diabetes Mellitus. Performed By: #### P T, CBC, PTT #### [facility] [address] Troponin I(TnI)on 08-08-2020 Troponin I.cardiac [Mass/Vol] 2.45 ng/mL Off scale high 0-0.02 [facility] Comment on above: Result Comment: KRISTI SD Cut off value > or equal to 0.03 ng/mL in conjunction with clinical conditions of myocardial infarction. ([email or web address].org/guidelines) PERFORMED BY: [place] [address] PATHOLOGIST [employer] DECKHAND DOMINGA SOLIMAN M.D. Performed By: #### T ROP #### [facility] [address] [place] [address] [place] A1C with Estimated Average G luon 08-07-2020 Glucose [Mass/Vol] 183 mg/dL Normal [facility] Comment on above: Result Comment: PERF ORMED BY: [facility] [address] [place] [address] PATHOLOGIST [employer] DECKHAND DOMINGA SOLIMAN M.D. Performed By: #### G LULS #### Point of Care testing , HbA1c (Bld) [Mass fraction] 8.0 % High 4.3-5.6 [facility] Comment on above: Result Comment: Incr eased risk for diabetes: 5.7 - 6.4 diabetes: >6.4 glycemic control for adults with diabetes: <7.0 Performed By: #### G LULS #### Point of Care testing , Complete Blood Count Auto Di ffon 08-07-2020 Basophils (Bld) [#/Vol] 0.1 10*3/uL Normal 0.0-0.2 [facility] Comment on above: Result Comment: PERF ORMED BY: [facility] [place] [address] PATHOLOGIST [employer] DECKHAND DOMINGA SOLIMAN M.D. Performed By: #### G LULS #### Point of Care testing , Basophils/100 WBC (Bld) 1.4 % Normal . [facility] Comment on above: Performed By: #### G LULS #### Point of Care testing , Eosinophils (Bld) [#/Vol] 0.1 10*3/uL Normal 0.0-0.45 [facility] Comment on above: Performed By: #### G ARVINDLS #### Point of Care testing , Eosinophils/100 WBC (Bld) 2.6 % Normal . [facility] Comment on above: Performed By: #### G ARVINDLS #### Point of Care testing , Erythrocyte distribution width (RBC) [Ratio] 15.6 % High 11.9-15.3 [facility] Comment on above: Performed By: #### G ARVINDLS #### Point of Care testing , Hematocrit (Bld) [Volume fraction] 39.8 % Normal 34.0-46.4 [facility] Comment on above: Performed By: #### G LULS #### Point of Care testing , Hemoglobin (Bld) [Mass/Vol] 13.8 g/dL Normal 11.8-15.4 [facility] Comment on above: Performed By: #### G LULS #### Point of Care testing , Lymphocytes (Bld) [#/Vol] 1.5 10*3/uL Normal 1.00-4.8 [facility] Comment on above: Performed By: #### G LULS #### Point of Care testing , Lymphocytes/100 WBC (Bld) 26.4 % Normal . [facility] Comment on above: Performed By: #### G LULS #### Point of Care testing , MCH (RBC) [Entitic mass] 30.9 pg Normal 24.7-34.3 [facility] Comment on above: Performed By: #### G ARVINDLS #### Point of Care testing , MCV (RBC) [Entitic vol] 89.0 fL Normal 80-100 [facility] Comment on above: Performed By: #### G ARVINDLS #### Point of Care testing , Mean Corpuscular HGB Conc 34.8 g/dL Normal 32.0-35.0 [facility] Comment on above: Performed By: #### G ARVINDLS #### Point of Care testing , Monocytes (Bld) [#/Vol] 0.4 10*3/uL Normal 0.0-0.8 [facility] Comment on above: Performed By: #### G SHANEKA #### Point of Care testing , Monocytes/100 WBC (Bld) 7.0 % Normal . [facility] Comment on above: Performed By: #### [place] SAMUELSLS #### Point of Care testing , Neutrophils (Bld) [#/Vol] 3.6 10*3/uL Normal 1.8-7.7 [facility] Comment on above: Performed By: #### [place] MUNROE #### Point of Care testing , Neutrophils/100 WBC (Bld) 62.6 % Normal . [facility] Comment on above: Performed By: #### G SHANEKA #### Point of Care testing , Nucleated RBC/100 WBC (Bld) [Ratio] 0.4 % Normal 0-0.5 [facility] Comment on above: Performed By: #### G SHANEKA #### Point of Care testing , Platelet mean volume (Bld) [Entitic vol] 9.1 fL Normal 6.3-10.7 [facility] Comment on above: Performed By: #### G ARVINDLS #### Point of Care testing , Platelets (Bld) [#/Vol] 201 10*3/uL Normal 150-450 [facility] Comment on above: Performed By: #### [place] MUNROE #### Point of Care testing , RBC (Bld) [#/Vol] 4.47 10*6/uL Normal 3.60-5.00 [facility] Comment on above: Performed By: #### G LUROHAN #### Point of Care testing , WBC (Bld) [#/Vol] 5.7 10*3/uL Normal 4.5-11.0 [facility] Comment on above: Performed By: #### G SHANEKA #### Point of Care testing , Basophils (Bld) [#/Vol] 0.1 10*3/uL Normal 0.0-0.2 [facility] Comment on above: Result Comment: PERF ORMED BY: [place] [address] PATHOLOGIST [employer] DECKHAND DOMINGA SOLIMAN M.D. Performed By: #### P T, CBC, PTT #### [facility] [address] [place] [address] Basophils/100 WBC (Bld) 0.7 % Normal . [facility] Comment on above: Performed By: #### P T, CBC, PTT #### [facility] [address] [place] [address] [place] Eosinophils (Bld) [#/Vol] 0.1 10*3/uL Normal 0.0-0.45 [facility] Comment on above: Performed By: #### P T, CBC, PTT #### [facility] [address] [place] [address] [place] Eosinophils/100 WBC (Bld) 1.5 % Normal . [facility] Comment on above: Performed By: #### P T, CBC, PTT #### [facility] [address] Erythrocyte distribution width (RBC) [Ratio] 15.4 % High 11.9-15.3 [facility] Comment on above: Performed By: #### P T, CBC, PTT #### [facility] [address] [place] [address] Hematocrit (Bld) [Volume fraction] 41.4 % Normal 34.0-46.4 [facility] Comment on above: Performed By: #### P T, CBC, PTT #### [facility] [address] Hemoglobin (Bld) [Mass/Vol] 14.0 g/dL Normal 11.8-15.4 [facility] Comment on above: Performed By: #### P T, CBC, PTT #### [facility] [address] Lymphocytes (Bld) [#/Vol] 2.0 10*3/uL Normal 1.00-4.8 [facility] Comment on above: Performed By: #### P T, CBC, PTT #### [facility] [address] Lymphocytes/100 WBC (Bld) 30.1 % Normal . [facility] Comment on above: Performed By: #### P T, CBC, PTT #### [facility] [address] MCH (RBC) [Entitic mass] 30.4 pg Normal 24.7-34.3 [facility] Comment on above: Performed By: #### P T, CBC, PTT #### [address] MCV (RBC) [Entitic vol] 89.6 fL Normal 80-100 [facility] Comment on above: Performed By: #### P T, CBC, PTT #### [address] Mean Corpuscular HGB Conc 33.9 g/dL Normal 32.0-35.0 [facility] Comment on above: Performed By: #### P T, CBC, PTT #### [facility] [address] [place] [address] [place] Monocytes (Bld) [#/Vol] 0.4 10*3/uL Normal 0.0-0.8 [facility] Comment on above: Performed By: #### P T, CBC, PTT #### [facility] [address] [place] [address] [place] Monocytes/100 WBC (Bld) 6.4 % Normal . [facility] Comment on above: Performed By: #### P T, CBC, PTT #### [facility] [address] Neutrophils (Bld) [#/Vol] 4.2 10*3/uL Normal 1.8-7.7 [facility] Comment on above: Performed By: #### P T, CBC, PTT #### [facility] [address] Neutrophils/100 WBC (Bld) 61.3 % Normal . [facility] Comment on above: Performed By: #### P T, CBC, PTT #### [facility] [address] Nucleated RBC/100 WBC (Bld) [Ratio] 0.1 % Normal 0-0.5 [facility] Comment on above: Performed By: #### P T, CBC, PTT #### [facility] [address] [place] [address] Platelet mean volume (Bld) [Entitic vol] 8.9 fL Normal 6.3-10.7 [facility] Comment on above: Performed By: #### P T, CBC, PTT #### [facility] [address] [place] [address] Platelets (Bld) [#/Vol] 197 10*3/uL Normal 150-450 [facility] Comment on above: Performed By: #### P T, CBC, PTT #### [facility] [address] [place] [address] [place] RBC (Bld) [#/Vol] 4.62 10*6/uL Normal 3.60-5.00 [facility] Comment on above: Performed By: #### P T, CBC, PTT #### [facility] [address] [place] [address] [place] WBC (Bld) [#/Vol] 6.8 10*3/uL Normal 4.5-11.0 [facility] Comment on above: Performed By: #### P T, CBC, PTT #### [address] Comprehensive Metabolic Pane dom 08-07-2020 Albumin [Mass/Vol] 3.4 g/dL Normal 3.2-5.5 [facility] Comment on above: Performed By: #### [place] MUNROE #### Point of Care testing , Albumin/Globulin [Mass ratio] 1.0 {ratio} [facility] Comment on above: Performed By: #### [place] MUNROE #### Point of Care testing , ALP [Catalytic activity/Vol] 107 U/L High 32-92 [facility] Comment on above: Performed By: #### [place] MUNROE #### Point of Care testing , ALT [Catalytic activity/Vol] 17 U/L Normal 10-60 [facility] Comment on above: Performed By: #### [place] MUNROE #### Point of Care testing , AST [Catalytic activity/Vol] 25 U/L Normal 10-42 [facility] Comment on above: Performed By: #### [place] MUNROE #### Point of Care testing , Bilirubin [Mass/Vol] 0.9 mg/dL Normal 0.3-1.2 [facility] Comment on above: Performed By: #### [place] MUNROE #### Point of Care testing , Calcium [Mass/Vol] 9.1 mg/dL Normal 8.2-10.2 [facility] Comment on above: Performed By: #### [place] MUNROE #### Point of Care testing , Chloride [Moles/Vol] 105 mmol/L Normal 95-114 [facility] Comment on above: Performed By: #### [place] MUNROE #### Point of Care testing , CO2 [Moles/Vol] 20.9 mmol/L Low 22.0-30.0 [facility] Comment on above: Performed By: #### [place] MUNROE #### Point of Care testing , Creatinine [Mass/Vol] 0.96 mg/dL Normal 0.44-1.03 [facility] Comment on above: Performed By: #### [place] MUNROE #### Point of Care testing , Creatinine Clr Calc Pharmacy 54.35 [facility] Comment on above: Performed By: #### G LULS #### Point of Care testing , Estimated GFR ( Vania > 60 Normal [facility] Comment on above: Result Comment: GFR estimated reference range: According to KDOQI guidelines, <60 ml/min/1.73m2 is sufficient to diagnose a patient with chronic kidney disease. Performed By: #### G LULS #### Point of Care testing , Estimated GFR (Non- Am 57 Normal [facility] Comment on above: Performed By: #### G LULS #### Point of Care testing , Globulin (S) [Mass/Vol] 3.5 g/dL Normal [facility] Comment on above: Performed By: #### G LULS #### Point of Care testing , Glucose [Mass/Vol] 391 mg/dL High 70-100 [facility] Comment on above: Result Comment: [place] Glucose Reference Range is dependent on time and content of last meal. Glucose of more than 200 mg/dL in a nonstressed, ambulatory subject supports the diagnosis of Diabetes Mellitus. ADA recommended reference range Performed By: #### G LULS #### Point of Care testing , Potassium [Moles/Vol] 4.4 mmol/L Normal 3.5-5.1 [facility] Comment on above: Performed By: #### G ARVINDLS #### Point of Care testing , Protein [Mass/Vol] 6.9 g/dL Normal 6.1-7.9 [facility] Comment on above: Performed By: #### G ARVINDLS #### Point of Care testing , Sodium [Moles/Vol] 136 mmol/L Normal 136-146 [facility] Comment on above: Performed By: #### G ARVINDLS #### Point of Care testing , Urea nitrogen [Mass/Vol] 19 mg/dL Normal 9-23 [facility] Comment on above: Performed By: #### G LULS #### Point of Care testing , Albumin [Mass/Vol] 3.4 g/dL Normal 3.2-5.5 [facility] Comment on above: Performed By: #### G LULS #### Point of Care testing , Albumin/Globulin [Mass ratio] 0.9 {ratio} [facility] Comment on above: Performed By: #### G ARVINDLS #### Point of Care testing , ALP [Catalytic activity/Vol] 100 U/L High 32-92 [facility] Comment on above: Performed By: #### G LULS #### Point of Care testing , ALT [Catalytic activity/Vol] 17 U/L Normal 10-60 [facility] Comment on above: Performed By: #### G LULS #### Point of Care testing , AST [Catalytic activity/Vol] 34 U/L Normal 10-42 [facility] Comment on above: Performed By: #### G ARVINDLS #### Point of Care testing , Bilirubin [Mass/Vol] 0.8 mg/dL Normal 0.3-1.2 [facility] Comment on above: Performed By: #### G ARVINDLS #### Point of Care testing , Calcium [Mass/Vol] 9.2 mg/dL Normal 8.2-10.2 [facility] Comment on above: Performed By: #### G ARVINDLS #### Point of Care testing , Chloride [Moles/Vol] 104 mmol/L Normal 95-114 [facility] Comment on above: Performed By: #### G ARVINDLS #### Point of Care testing , CO2 [Moles/Vol] 20.0 mmol/L Low 22.0-30.0 [facility] Comment on above: Performed By: #### G ARVINDLS #### Point of Care testing , Creatinine [Mass/Vol] 0.95 mg/dL Normal 0.44-1.03 [facility] Comment on above: Performed By: #### G LULS #### Point of Care testing , Creatinine Clr Calc Pharmacy 55.10 [facility] Comment on above: Result Comment: PERF ORMED BY: [facility] [address] [place] [address] PATHOLOGIST [employer] DECKHAND DOMINGA SOLIMAN M.D. Performed By: #### G LULS #### Point of Care testing , Estimated GFR ( Vania > 60 [facility] Comment on above: Result Comment: GFR estimated reference range: According to KDOQI guidelines, <60 ml/min/1.73m2 is sufficient to diagnose a patient with chronic kidney disease. Performed By: #### G LULS #### Point of Care testing , Estimated GFR (Non- Am 58 [facility] Comment on above: Performed By: #### G LULS #### Point of Care testing , Globulin (S) [Mass/Vol] 3.6 g/dL [facility] Comment on above: Performed By: #### G LULS #### Point of Care testing , Glucose [Mass/Vol] 271 mg/dL High 70-100 [facility] Comment on above: Result Comment: [place] Glucose Reference Range is dependent on time and content of last meal. Glucose of more than 200 mg/dL in a nonstressed, ambulatory subject supports the diagnosis of Diabetes Mellitus. ADA recommended reference range Performed By: #### G LULS #### Point of Care testing , Potassium [Moles/Vol] 4.0 mmol/L Normal 3.5-5.1 [facility] Comment on above: Performed By: #### G LULS #### Point of Care testing , Protein [Mass/Vol] 7.0 g/dL Normal 6.1-7.9 [facility] Comment on above: Performed By: #### G LULS #### Point of Care testing , Sodium [Moles/Vol] 136 mmol/L Normal 136-146 [facility] Comment on above: Performed By: #### G LULS #### Point of Care testing , Urea nitrogen [Mass/Vol] 15 mg/dL Normal 9-23 [facility] Comment on above: Performed By: #### G LULS #### Point of Care testing , [facility] echo transthoracicon [facility] echo transthoracic [facility] [place] [address] Echocardiogram Signed Patient: Lucila Tineo MR#: [id number] : 1950 Acct:[id number] Age/Sex: 70 / F ADM Date: 08/06/20 Loc: Room: 9J3313-8 Type: ADM IN Attending Dr: Drew Patterson MD Ordering Provider: Bravo Abdi MD Date of Service: 08/06/20 ECH/ECH echo transthoracic: NSTEMI, wall motion abnormalities Copies to: MD Cory Del Toro MD, [facility] Height: 64 in Weight: 167 lb Performed [...] DELANO 08/07/201126 Dictated By: Cory Rudd MD, [facility] 08/07/2027 Signed By: 08/07/20 1127 [facility] Glucose Poct Glucometerson 0 08-07-2020 Commemt3 Cleaned Meter [facility] Comment on above: Result Comment: PERF ORMED BY: [address] [place] [address] PATHOLOGIST [employer] DECKHAND DOMINGA SOLIMAN M.D. Performed By: #### G LULS #### Point of Care testing , Glucose [Mass/Vol] 503 mg/dL Off scale [facility] Comment on above: Result Comment: [place] om Glucose Reference Range is dependent on time and content of last meal. Glucose of more than 200 mg/dL in a nonstressed, ambulatory subject supports the diagnosis of Diabetes Mellitus. Performed By: #### G LULS #### Point of Care testing , Commemt1 Glu2: Cleaned Meter [facility] Comment on above: Result Comment: PERF ORMED BY: [address] [place] [address] PATHOLOGIST [employer] DECKHAND DOMINGA SOLIMAN M.D. Performed By: #### G LULS #### Point of Care testing , Glucose [Mass/Vol] 299 mg/dL [facility] Comment on above: Result Comment: [place] om Glucose Reference Range is dependent on time and content of last meal. Glucose of more than 200 mg/dL in a nonstressed, ambulatory subject supports the diagnosis of Diabetes Mellitus. Performed By: #### G LULS #### Point of Care testing , Commemt1 [facility] Comment on above: Result Comment: Glu2 : Will Repeat Test Performed By: #### G LULS #### Point of Care testing , Result Comment: Glu2 : WILL NOTIFY DR/RN Commemt2 Cleaned Meter [facility] Comment on above: Result Comment: PERF ORMED BY: [place] [address] PATHOLOGIST [employer] DECKHAND DOMINGA SOLIMAN M.D. Performed By: #### G LULS #### Point of Care testing , Glucose [Mass/Vol] 429 mg/dL Off scale high [facility] Comment on above: Result Comment: [place] om Glucose Reference Range is dependent on time and content of last meal. Glucose of more than 200 mg/dL in a nonstressed, ambulatory subject supports the diagnosis of Diabetes Mellitus. Performed By: #### G LULS #### Point of Care testing , Commemt1 Glu2: Cleaned Meter [facility] Comment on above: Performed By: #### P T, CBC, PTT #### [address] Commemt2 WILL NOTIFY DR/RN [facility] Comment on above: Performed By: #### G LULS #### Point of Care testing , Performed By: #### P T, CBC, PTT #### [address] Commemt3 Will Repeat Test Normal [facility] Comment on above: Result Comment: PERF ORMED BY: [place] [address] PATHOLOGIST [employer] DECKHAND DOMINGA SOLIMAN M.D. Performed By: #### P T, CBC, PTT #### [address] Glucose [Mass/Vol] 429 mg/dL Off scale [facility] Comment on above: Result Comment: [place] om Glucose Reference Range is dependent on time and content of last meal. Glucose of more than 200 mg/dL in a nonstressed, ambulatory subject supports the diagnosis of Diabetes Mellitus. Performed By: #### P T, CBC, PTT #### [address] Commemt1 Glu2: Cleaned Meter [facility] Comment on above: Result Comment: PERF ORMED BY: [address] [address] PATHOLOGIST FISHING VESSEL DECKHAND DOMINGA SOLIMAN M.D. Performed By: #### G LULS #### Point of Care testing , Glucose [Mass/Vol] 373 mg/dL Normal [facility] Comment on above: Result Comment: [place] om Glucose Reference Range is dependent on time and content of last meal. Glucose of more than 200 mg/dL in a nonstressed, ambulatory subject supports the diagnosis of Diabetes Mellitus. Performed By: #### G LULS #### Point of Care testing , Glucose [Mass/Vol] 261 mg/dL Normal [facility] Comment on above: Result Comment: [place] om Glucose Reference Range is dependent on time and content of last meal. Glucose of more than 200 mg/dL in a nonstressed, ambulatory subject supports the diagnosis of Diabetes Mellitus. PERFORMED BY: [place] [address] PATHOLOGIST FISHING VESSEL DECKHAND DOMINGA SOLIMAN M.D. Performed By: #### P T, CBC, PTT #### [facility] [address] [place] [address] Lipid Panelon 08-07-2020 Cholesterol [Mass/Vol] 201 mg/dL High 140-200 [facility] Comment on above: Result Comment: Chol less than 200 mg/dl low risk Chol 201-239 mg/dl borderline risk Chol 240 mg/dl and greater high risk Performed By: #### G LULS #### Point of Care testing , Cholesterol in HDL [Mass/Vol] 49 mg/dL Normal 35-85 [facility] Comment on above: Result Comment: HDL CHOL ATP-III CLASSIFICATION Cardiovascular Risk HDL > or equal to 60 mg/dL LOW HDL < 40 mg/dL HIGH Performed By: #### G LULS #### Point of Care testing , Cholesterol.total/Cho lesterol in HDL [Mass ratio] 4.1 {ratio} Normal <5.0 [facility] Comment on above: Result Comment: PERF ORMED BY: [facility] [address] [place] [address] PATHOLOGIST FISHING VESSEL DECKHAND DOMINGA SOLIMAN M.D. Performed By: #### G LULS #### Point of Care testing , LDL Cholesterol,Calculate d 127 mg/dL High 0-100 [facility] Comment on above: Result Comment: LDL ATP III CLASSIFICATION LDL less than 100 mg/dL Optimal LDL 100-129 mg/dL Near or above optimal LDL 130-159 mg/dL Borderline high LDL 160-189 mg/dL High LDL greater than 189 mg/dL Very high Performed By: #### G LULS #### Point of Care testing , Triglyceride w/Reflex 126 mg/dL Normal 35-149 [facility] Comment on above: Result Comment: TRIG ATP III CLASSIFICATION TRIG less than 150 mg/dL Normal TRIG 150-199 mg/dL Borderline high TRIG 200-500 mg/dL High TRIG greater than 500 mg/dL Very high Standard traceable to the Center for Disease Conrtrol and Prevention (CDC) test method. Performed By: #### G LULS #### Point of Care testing , VLDL CHOLESTEROL 25 mg/dL Normal [facility] Comment on above: Performed By: #### G LULS #### Point of Care testing , Magnesiumon 08-07-2020 Magnesium [Mass/Vol] 2.0 mg/dL Normal 1.6-2.6 [facility] Comment on above: Performed By: #### G LULS #### Point of Care testing , Partial Thromboplastin Timeo n 08-07-2020 aPTT Coag (Bld) [Time] 42.8 s High 25.1-36.5 [facility] Comment on above: Result Comment: PERF ORMED BY: [facility] [address] [place] [id number] PATHOLOGIST FISHING VESSEL DECKHAND DOMINGA SOLIMAN M.D. Performed By: #### G LULS #### Point of Care testing , aPTT Coag (Bld) [Time] 33.2 s Normal 25.1-36.5 [facility] Comment on above: Result Comment: PERF ORMED BY: [facility] [address] [place] [address] PATHOLOGIST FISHING VESSEL DECKHAND DOMINGA SOLIMAN M.D. Performed By: #### P T, CBC, PTT #### [facility] [address] [place] [id number] [place] Prothrombin Time INRon 08-07 INR Coag (PPP) [Relative time] 1.0 {INR} Normal [facility] Comment on above: Result Comment: INR [...] Coag (PPP) [Time] 11.4 s Normal 9.0-12.9 [facility] Comment on above: Performed By: #### G LULS #### Point of Care testing , INR Coag (PPP) [Relative time] 1.0 {INR} Normal [facility] Comment on above: Result Comment: INR [...] By: #### P T, CBC, PTT #### [facility] [address] [place] [address] [place] PT Coag (PPP) [Time] 11.2 s Normal 9.0-12.9 [facility] Comment on above: Performed By: #### P T, CBC, PTT #### [facility] [address] [place] [address] [place] Troponin I(TnI)on 08-07-2020 Troponin I.cardiac [Mass/Vol] 3.26 ng/mL Off scale high 0-0.02 [facility] Comment on above: Result Comment: KRISTI SD Cut off value > or equal to 0.03 ng/mL in conjunction with clinical conditions of myocardial infarction. (www.escardio.org/guidelines) PERFORMED BY: [place] [address] PATHOLOGIST FISHING VESSEL DECKHAND DOMINGA SOLIMAN M.D. Performed By: #### P T, CBC, PTT #### [place] [address] [place] Troponin I.cardiac [Mass/Vol] 3.61 ng/mL Off scale high 0-0.02 [facility] Comment on above: Result Comment: KRISTI SD Cut off value > or equal to 0.03 ng/mL in conjunction with clinical conditions of myocardial infarction. (www.escardio.org/guidelines) PERFORMED BY: [place] [address] PATHOLOGIST FISHING VESSEL DECKHAND DOMINGA SOLIMAN M.D. Performed By: #### T ROP #### [address] Troponin I.cardiac [Mass/Vol] 4.39 ng/mL Off scale high 0-0.02 [facility] Comment on above: Result Comment: Resu lts called at 0009 on 08/07/20 KRISTI SD Cut off value > or equal to 0.03 ng/mL in conjunction with clinical conditions of myocardial infarction. (www.escardio.org/guidelines) PERFORMED BY: [place] [address] PATHOLOGIST FISHING VESSEL DECKHAND DOMINGA SOLIMAN M.D. Performed By: #### P T, CBC, PTT #### [place] [id number] [facility] ECG 12 lead ECGon 08-06-2020 ECG 12 lead ECG [facility] [place] [address] Electrocardiograph Report Signed Patient: Lucila Tineo MR#: [id number] : 1950 Acct:[id number] Age/Sex: 70 / F ADM Date: 08/06/20 Loc: Room: [address] [place] [address] Type: ADM IN Attending Dr: Drew Patterson [...] Castillo MD 08/06/202110 Signed By: 08/07/20 1712 [facility] Vital Signs Date Time Vital Sign Value Performing Clinician Facility 10-04-2024 10:05-0400 Body height 162.6 cm Corrie Dorantes MD Work Phone: [facility] 10-04-2024 10:05-0400 Body mass index (BMI) [Ratio] 27.64 kg/m2 Corrie Dorantes MD Work Phone: [facility] 10-04-2024 10:05-0400 Body weight 73.03 kg Corrie Dorantes MD Work Phone: [facility] 10-04-2024 10:05-0400 Diastolic blood pressure 82 mm[Hg] Corrie Dorantes MD Work Phone: [facility] 10-04-2024 10:05-0400 Heart rate 82 /min Corrie Dorantes MD Work Phone: [facility] 10-04-2024 10:05-0400 SaO2% (BldA) [Mass fraction] 94 % Corrie Dorantes MD Work Phone: [facility] 10-04-2024 10:05-0400 Systolic blood pressure 134 mm[Hg] Corrie Dorantes MD Work Phone: [facility] 09-16-2024 13:15-0400 Body height 162.6 cm Chyna Petznick DO Work Phone: [facility] 09-16-2024 13:15-0400 Body mass index (BMI) [Ratio] 27.46 kg/m2 Chyna Petznick DO Work Phone: [facility] 09-16-2024 13:15-0400 Body temperature 98.01 [degF] Chyna Petznick DO Work Phone: [facility] 09-16-2024 13:15-0400 Body weight 72.58 kg Chyna Petznick DO Work Phone: [facility] 09-16-2024 13:15-0400 Diastolic blood pressure 72 mm[Hg] Chyna Petznick DO Work Phone: [facility] 09-16-2024 13:15-0400 Heart rate 82 /min Chyna Petznick DO Work Phone: [facility] 09-16-2024 13:15-0400 SaO2% (BldA) [Mass fraction] 97 % Chyna Petznick DO Work Phone: [facility] 09-16-2024 13:15-0400 Systolic blood pressure 116 mm[Hg] Chyna Petznick DO Work Phone: [facility] 07-01-2024 09:45-0400 Body height 162.6 cm Jeannette Gomezfadumo CONTRACTOR BUYER Work Phone: [facility] 07-01-2024 09:45-0400 Body mass index (BMI) [Ratio] 26.95 kg/m2 Jeannette Gomezfadumo CONTRACTOR BUYER Work Phone: [facility] 07-01-2024 09:45-0400 Body weight 71.22 kg Jeannette Gomezfadumo CONTRACTOR BUYER Work Phone: [facility] 07-01-2024 09:45-0400 Diastolic blood pressure 82 mm[Hg] Jeannette Christiano CONTRACTOR BUYER Work Phone: [facility] 07-01-2024 09:45-0400 Heart rate 78 /min Jeannette Alvarado CONTRACTOR BUYER Work Phone: [facility] 07-01-2024 09:45-0400 Respiratory rate 18 /min Jeannette Alvarado CONTRACTOR BUYER Work Phone: [facility] 07-01-2024 09:45-0400 SaO2% (BldA) [Mass fraction] 98 % Jeannette Alvarado CONTRACTOR BUYER Work Phone: [facility] 07-01-2024 09:45-0400 Systolic blood pressure 126 mm[Hg] Jeannette Alvarado CONTRACTOR BUYER Work Phone: [facility] 06-10-2024 13:40-0400 Body height 162.6 cm Chyna Petznick DO Work Phone: [facility] 06-10-2024 13:40-0400 Body mass index (BMI) [Ratio] 27.29 kg/m2 Chyna Petznick DO Work Phone: [facility] 06-10-2024 13:40-0400 Body temperature 98.71 [degF] Chyna Petznick DO Work Phone: [facility] 06-10-2024 13:40-0400 Body weight 72.12 kg Chyna Petznick DO Work Phone: [facility] 06-10-2024 13:40-0400 Diastolic blood pressure 76 mm[Hg] Chyna Petznick DO Work Phone: [facility] 06-10-2024 13:40-0400 Heart rate 82 /min Chyna Petznick DO Work Phone: [facility] 06-10-2024 13:40-0400 SaO2% (BldA) [Mass fraction] 96 % Chyna Petznick DO Work Phone: [facility] 06-10-2024 13:40-0400 Systolic blood pressure 126 mm[Hg] Chyna Petznick DO Work Phone: [facility] 03-11-2024 10:27-0500 Body height 162.6 cm Chyna Petznick DO Work Phone: [facility] 03-11-2024 10:27-0500 Body mass index (BMI) [Ratio] 25.4 kg/m2 Chyna Petznick DO Work Phone: [facility] 03-11-2024 10:27-0500 Body temperature 98.91 [degF] Chyna Petznick DO Work Phone: [facility] 03-11-2024 10:27-0500 Body weight 67.13 kg Chyna Petznick DO Work Phone: [facility] 03-11-2024 10:27-0500 Diastolic blood pressure 72 mm[Hg] Chyna Petznick DO Work Phone: [facility] 03-11-2024 10:27-0500 Heart rate 93 /min Chyna Petznick DO Work Phone: [facility] 03-11-2024 10:27-0500 SaO2% (BldA) [Mass fraction] 97 % Chyna Petznick DO Work Phone: [facility] 03-11-2024 10:27-0500 Systolic blood pressure 124 mm[Hg] Chyna Petznick DO Work Phone: [facility] 12-08-2023 15:02-0400 Body height 162.6 cm Sonu Bruner DPM Work Phone: [facility] 12-08-2023 15:02-0400 Body mass index (BMI) [Ratio] 24.55 kg/m2 Snou Bruner DPM Work Phone: [facility] 12-08-2023 15:02-0400 Body weight 64.86 kg Sonu Bruner DPM Work Phone: [facility] 12-04-2023 10:54-0400 Body height 162.6 cm Chyna Petznick DO Work Phone: [facility] 12-04-2023 10:54-0400 Body mass index (BMI) [Ratio] 24.55 kg/m2 Chyna Petznick DO Work Phone: [facility] 12-04-2023 10:54-0400 Body temperature 98.71 [degF] Chyna Petznick DO Work Phone: [facility] 12-04-2023 10:54-0400 Body weight 64.86 kg Chyna Petznick DO Work Phone: [facility] 12-04-2023 10:54-0400 Diastolic blood pressure 80 mm[Hg] Chyna Petznick DO Work Phone: [facility] 12-04-2023 10:54-0400 Heart rate 85 /min Chyna Petznick DO Work Phone: [facility] 12-04-2023 10:54-0400 SaO2% (BldA) [Mass fraction] 98 % Chyna Petznick DO Work Phone: [facility] 12-04-2023 10:54-0400 Systolic blood pressure 136 mm[Hg] Chyna Petznick DO Work Phone: [facility] 11-17-2023 15:01-0400 Body mass index (BMI) [Ratio] 24.55 kg/m2 Mily Colladotrick CONTRACTOR BUYER Work Phone: [facility] 11-17-2023 15:01-0400 Body temperature 97.5 [degF] Mily Colladotrick CONTRACTOR BUYER Work Phone: [facility] 11-17-2023 15:01-0400 Body weight 64.86 kg Mily Gaitanpatrick CONTRACTOR BUYER Work Phone: [facility] 11-17-2023 15:01-0400 Diastolic blood pressure 84 mm[Hg] Mily Gaitanpatrick CONTRACTOR BUYER Work Phone: [facility] 11-17-2023 15:01-0400 Heart rate 88 /min Mily Colladotrick CONTRACTOR BUYER Work Phone: [facility] 11-17-2023 15:01-0400 SaO2% (BldA) [Mass fraction] 96 % Mily Andrade CONTRACTOR BUYER Work Phone: [facility] 11-17-2023 15:01-0400 Systolic blood pressure 134 mm[Hg] Mily Andrade NP Work Phone: [facility] 07-07-2023 10:46-0400 Body height 162.6 cm Jah Diaz MD Work Phone: [facility] 07-07-2023 10:46-0400 Body mass index (BMI) [Ratio] 23 kg/m2 Jah Diaz MD Work Phone: [facility] 07-07-2023 10:46-0400 Body weight 60.78 kg Jah Diaz MD Work Phone: [facility] 07-07-2023 10:46-0400 Diastolic blood pressure 52 mm[Hg] Jah Diaz MD Work Phone: [facility] 07-07-2023 10:46-0400 Heart rate 85 /min Jah Diaz MD Work Phone: [facility] 07-07-2023 10:46-0400 SaO2% (BldA) [Mass fraction] 96 % Jah Diaz MD Work Phone: [facility] 07-07-2023 10:46-0400 Systolic blood pressure 123 mm[Hg] Jah Diaz MD Work Phone: [facility] 12-11-2021 11:20-0400 Body height 162.56 cm Mily Andrade Work Phone: [facility] [address] DO Work Phone: 12-11-2021 11:20-0400 Body mass index (BMI) [Ratio] 27.98 kg/m2 Mily Colladotrick Work Phone: [facility] [facility] DO Work Phone: 12-11-2021 11:20-0400 Body surface area Derived from formula 1.79 m2 Mily Gaitanpatrick Work Phone: [facility] [facility] DO Work Phone: 12-11-2021 11:20-0400 Body weight 73.94 kg Mily Ashley Andrade Work Phone: [facility] 250 DO Work Phone: 12-11-2021 11:20-0400 Diastolic blood pressure 78 mm[Hg] Mily A Andrade Work Phone: [facility] [facility] DO Work Phone: 12-11-2021 11:20-0400 Heart rate 76 /min Mily A Andrade Work Phone: [facility] [facility] DO Work Phone: 12-11-2021 11:20-0400 Systolic blood pressure 136 mm[Hg] Mily A Andrade Work Phone: [facility] [facility] DO Work Phone: 02-05-2021 11:35-0500 Body height 162.56 cm Mily A Andrade Work Phone: [facility] [facility] DO Work Phone: 02-05-2021 11:35-0500 Body mass index (BMI) [Ratio] 28.67 kg/m2 Mily Ashley Andrade Work Phone: [facility] [facility] DO Work Phone: 02-05-2021 11:35-0500 Body surface area Derived from formula 1.81 m2 Mily A Andrade Work Phone: [facility] [address] DO Work Phone: 02-05-2021 11:35-0500 Body weight 75.75 kg Mily A Andrade Work Phone: [facility] [facility] DO Work Phone: 02-05-2021 11:35-0500 Diastolic blood pressure 81 mm[Hg] Mily Ashley Andrade Work Phone: [facility] [facility] DO Work Phone: 02-05-2021 11:35-0500 Heart rate 77 /min Mily Ashley Andrade Work Phone: [facility] [facility] DO Work Phone: 02-05-2021 11:35-0500 Systolic blood pressure 157 mm[Hg] Mily Ashley Andrade Work Phone: [facility] [facility] DO Work Phone: 12-04-2020 15:01-0400 Diastolic blood pressure 72 mm[Hg] Bruce Elias DO Work Phone: [facility] [employer] [address] DO Work Phone: 12-04-2020 15:01-0400 Systolic blood pressure 170 mm[Hg] Bruce Elias DO Work Phone: [facility] [employer] [address] DO Work Phone: 12-04-2020 13:53-0400 Body height 162.56 cm Bruce Elias DO Work Phone: [facility] [employer] 600 DO Work Phone: 12-04-2020 13:53-0400 Body mass index (BMI) [Ratio] 29.01 kg/m2 Bruce Elias DO Work Phone: [facility] [employer] 600 DO Work Phone: 12-04-2020 13:53-0400 Body surface area Derived from formula 1.82 m2 Bruce Elias DO Work Phone: [facility] [employer] 600 DO Work Phone: 12-04-2020 13:53-0400 Body weight 76.66 kg Bruce Elias DO Work Phone: [facility] [employer] 600 DO Work Phone: 12-04-2020 13:53-0400 Diastolic blood pressure 90 mm[Hg] Bruce Elias DO Work Phone: [facility] 600 DO Work Phone: 12-04-2020 13:53-0400 Heart rate 68 /min Bruce Elias DO Work Phone: -[facility] 600 DO Work Phone: 12-04-2020 13:53-0400 Systolic blood pressure 150 mm[Hg] Bruce Elias DO Work Phone: -[facility] 600 DO Work Phone: 11-06-2020 15:18-0400 70 1 Bruce Elias DO Work Phone: -[facility] 600 DO Work Phone: Comment on above: [id number] Encounters Encounter Date Encounter Type Care Provider Facility Start: 11-22-2024 End: 11-22-2024 Raji Dorantes MD Work Phone: [facility] Comment on above: Degeneration of lumb ar intervertebral disc Start: 11-18-2024 End: 11-18-2024 Clinisync Result Encounter Generic External Data Provider [facility] External Department Unsolicited Start: 11-18-2024 End: 11-18-2024 Clinisync Result Encounter Generic External Data Provider [facility] External Department Unsolicited Start: 11-18-2024 End: 11-18-2024 ambulatory [facility] Facility:[facility] Start: 11-18-2024 ambulatory [facility] Facility:[facility] Start: 11-14-2024 End: 11-15-2024 Raji Dorantes MD Work Phone: [facility] Comment on above: Degeneration of lumb ar intervertebral disc Start: 10-28-2024 End: 10-28-2024 Telephone encounter Bro Hawk MD Work Phone: [facility] Start: 10-24-2024 End: 10-24-2024 Refill Corrie Dorantes MD Work Phone: [facility] Comment on above: Degeneration of lumb ar intervertebral disc Start: 10-14-2024 End: 10-14-2024 ambulatory JEANNETTE ALVARADO Not Available Start: 10-05-2024 End: 10-05-2024 ambulatory JEANNETTE ALVARADO Not Available Start: 10-04-2024 End: 10-04-2024 Bamboo flowsheet Corrie Dorantes MD Work Phone: [facility] Start: 10-04-2024 End: 10-04-2024 Bamboo flowsheet Corrie Dorantes MD Work Phone: [facility] Start: 10-04-2024 End: 10-04-2024 ambulatory CORRIE DORANTES Not Available Start: 10-04-2024 End: 10-04-2024 Office outpatient visit 15 minutes Corrie Dorantes MD Work Phone: [facility] Comment on above: Leg edema, left (Leticia nancy Dx) Start: 10-04-2024 End: 10-04-2024 ambulatory CORRIE DORANTES Not Available Start: 09-16-2024 End: 09-16-2024 Bamboo flowsheet Chyna Anuradha Petznick DO Work Phone: [facility] Start: 09-16-2024 End: 09-16-2024 Bamboo flowsheet Chyna M Petznick DO Work Phone: [facility] Start: 09-16-2024 End: 09-16-2024 Office outpatient visit 25 minutes Chyna M Petznick DO Work Phone: [facility] Comment on above: Type 1 diabetes clarita itus with other circulatory complications (HCC) Start: 09-16-2024 End: 09-16-2024 ambulatory CHYNA Anuradha PETZNICK Not Available Start: 08-26-2024 End: 08-26-2024 Refill Corrie Dorantes MD Work Phone: [facility] Comment on above: Degeneration of lumb ar intervertebral disc Start: 08-17-2024 End: 08-17-2024 Telephone encounter Chyna Luna DO Work Phone: [facility] Comment on above: Appointment Request Start: 07-28-2024 End: 07-29-2024 Refill Rae Perez MA [facility] Comment on above: Degeneration of lumb ar intervertebral disc Start: 07-01-2024 End: 07-01-2024 Bamboo flowsheet Jeannette Alvarado CONTRACTOR BUYER Work Phone: [facility] Start: 07-01-2024 End: 07-01-2024 Bamboo flowsheet Jeannette Alvarado CONTRACTOR BUYER Work Phone: [facility] Start: 07-01-2024 End: 07-01-2024 ambulatory JEANNETTE ALVARADO Not Available Start: 07-01-2024 End: 07-01-2024 Office outpatient visit 25 minutes Jeannette Alvarado NP Work Phone: [facility] Comment on above: Type 1 diabetes clarita itus with other circulatory complications (Primary Dx); Mixed hyperlipidemia (CMS/HCC); History of stroke; Acquired hypothyroidism (CMS/HCC); Urinary frequency; Lumbar radiculopathy, chronic; Essential hypertension (CMS/HCC); Major depressive disorder, remission status unspecified, unspecified whether recurrent (CMS/HCC); Paroxysmal atrial fibrillation (CMS/HCC); Degeneration of lumbar intervertebral disc; RLS (restless legs syndrome); Hypokalemia Start: 06-20-2024 End: 06-27-2024 Refill Corrie Dorantes MD Work Phone: [facility] Comment on above: Degeneration of lumb ar intervertebral disc Start: 06-10-2024 End: 06-10-2024 Office outpatient visit 25 minutes Chyna Luna DO Work Phone: [facility] Comment on above: Type 1 diabetes clarita itus with hypoglycemia and without coma (CMS/HCC) (Primary Dx); Type 1 diabetes mellitus with other circulatory complications Start: 06-10-2024 End: 06-10-2024 ambulatory CHYNA LUNA Not Available Start: 04-21-2024 End: 04-21-2024 Refill Yamileth Lundberg MA [facility] Comment on above: Degeneration of lumb ar intervertebral disc Start: 03-21-2024 End: 04-06-2024 Refill Corrie Dorantes MD Work Phone: [facility] Comment on above: Degeneration of lumb ar intervertebral disc Start: 03-11-2024 End: 03-11-2024 Office outpatient visit 25 minutes Chyna Luna DO Work Phone: [facility] Comment on above: Type 1 diabetes clarita itus with hyperglycemia (HCC) (CMS/HCC) (Primary Dx); 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); Type 1 diabetes mellitus with hypoglycemia and without coma (CMS/HCC) Start: 03-11-2024 End: 03-11-2024 ambulatory CHYNA LUNA Not Available Start: 01-18-2024 End: 01-20-2024 Refill Corrie Dorantes MD Work Phone: [facility] Comment on above: Degeneration of lumb ar intervertebral disc Start: 01-12-2024 End: 01-12-2024 Bamboo flowsheet Hollie Mar Zahler DO Work Phone: [facility] Start: 01-12-2024 End: 01-12-2024 Bamboo flowsheet Hollie Isabela Zahler DO Work Phone: [facility] Start: 01-12-2024 End: 01-12-2024 ambulatory HOLLIE Isabela MOELLERHLER Not Available Start: 01-08-2024 End: 01-08-2024 Telephone encounter Corrie Dorantes MD Work Phone: [facility] Start: 12-15-2023 End: 12-17-2023 Orders Only Corrie Dorantes MD Work Phone: [facility] Comment on above: Major depressive dis order, remission status unspecified, unspecified whether recurrent (CMS/HCC) (Primary Dx) Start: 12-11-2023 End: 12-11-2023 Clinisync Result Encounter Yadira Gaitanpatrick CONTRACTOR BUYER Work Phone: [facility] External Department Unsolicited Start: 12-11-2023 End: 12-11-2023 Clinisync Result Encounter Yadira Andrade CONTRACTOR BUYER Work Phone: [facility] External Department Unsolicited Start: 12-10-2023 End: 12-10-2023 Telephone encounter Chyna Neelyick DO Work Phone: [facility] [...] End: 12-08-2023 E-mail encounter from caregiver Jah Diaz MD Work Phone: [facility] Start: 12-08-2023 End: 12-08-2023 Patient encounter procedure Jah Diaz MD Work Phone: [facility] Comment on above: Cerebrovascular Neur ology Appointment Reminder Start: 12-04-2023 End: 12-04-2023 Bamboo flowsheet Chyna M Petznick DO Work Phone: [facility] Start: 12-04-2023 End: 12-04-2023 Bamboo flowsheet Chyna Anuradha Petznick DO Work Phone: [facility] Start: 12-04-2023 End: 12-04-2023 Telephone encounter Chyna Neelyick DO Work Phone: [facility] Start: 12-04-2023 End: 12-04-2023 Office outpatient visit 25 minutes Chyna Luna DO Work Phone: [facility] Comment on above: Type 1 diabetes clarita itus with other circulatory complications (CMS/HCC) (Primary Dx); Type 1 diabetes mellitus with hyperglycemia (HCC) (CMS/HCC); Type 1 diabetes mellitus with hypoglycemia and without coma (CMS/HCC) Start: 12-04-2023 End: 12-04-2023 ambulatory Jah Diaz MD Work Phone: [facility] Comment on above: Unruptured Aneurysm Start: 12-02-2023 End: 12-02-2023 Telephone encounter Jah Diaz MD Work Phone: [facility] Comment on above: Medication Question Paroxysmal atrial fi brillation (CMS/HCC) (Primary Dx) Start: 11-24-2023 End: 02-29-2024 Telephone encounter Corrie Dorantes MD Work Phone: [facility] Start: 11-19-2023 End: 11-19-2023 Orders Only Mily Andrade CONTRACTOR BUYER Work Phone: [facility] Comment on above: Foot swelling (Prima ry Dx) Diabetic ketoacidosi s without coma associated with type 2 diabetes mellitus (CMS/HCC) (Primary Dx) Start: 11-17-2023 End: 11-17-2023 ambulatory MILY ANDRADE Not Available Start: 11-17-2023 End: 11-17-2023 Office outpatient visit 25 minutes Mily Andrade CONTRACTOR BUYER Work Phone: [facility] Comment on [...] ANDRADE Not Available Start: 11-17-2023 End: 11-17-2023 Telephone encounter Corrie Dorantes MD Work Phone: [facility] Start: 11-16-2023 End: 11-24-2023 Telephone encounter Corrie Dorantes MD Work Phone: [facility] Start: 07-16-2023 Telephone encounter Jah Diaz MD Work Phone: [facility] Comment on above: Received Outside Med ical Records (Rec'd lab report from [facility] imported into [employer]) Start: 07-14-2023 Telephone encounter Jah Diaz MD Work Phone: [facility] Comment on above: Results (PT-INR Resu lts ) Start: 07-13-2023 ambulatory Jah Diaz MD Work Phone: [facility] Comment on above: Unruptured Aneurysm (Diagnostic Cerebral Angiogram) Cerebral Angiogram I nstructions for 08/06/2023 Start: 07-13-2023 E-mail encounter fito seth caregiver Jah Diaz MD Work Phone: [facility] Start: 07-10-2023 ambulatory Jah Diaz MD Work Phone: [facility] Comment on above: Plan of Care Start: 07-10-2023 E-mail encounter fito m caregiver Jah Diaz MD Work Phone: [facility] Start: 07-07-2023 End: 07-07-2023 Patient encounter procedure Jah Diaz MD Work Phone: [facility] Comment on above: Unruptured cerebral aneurysm (Primary Dx); Hypertension, unspecified type; Hyperlipidemia, unspecified hyperlipidemia type; Atrial fibrillation, unspecified type (HCC); Ischemic stroke (HCC) Start: 07-07-2023 End: 07-07-2023 Subsequent hospital visit by physician Ct 2 Main Qb (I-Stat) Radiology Comment on above: Nonruptured cerebral aneurysm [I67.1] Start: 06-25-2023 End: 06-25-2023 ambulatory [facility] Start: 04-14-2023 Clinisync Result Encounter Radha Herrera MD Work Phone: [facility] External Department Unsolicited Start: 04-14-2023 Clinisync Result Encounter Radha Herrera MD Work Phone: [facility] External Department Unsolicited Start: 03-06-2023 End: 03-06-2023 ambulatory ANGE [facility] Start: 03-02-2023 ambulatory [facility] Start: 03-01-2023 ambulatory [facility] Start: 01-20-2023 ambulatory Jah Diaz MD Work Phone: [facility] Comment on above: Anticoag Start: 01-16-2023 ambulatory Jah Diaz MD Work Phone: [facility] Comment on above: Images Start: 01-02-2023 Telephone encounter Jah Diaz MD Work Phone: [facility] Comment on above: Emergency Medical Technician Basic - O ther Start: 12-16-2022 End: 12-16-2022 ambulatory Jah Diaz MD Work Phone: [facility] Comment on above: Unruptured cerebral aneurysm (Primary Dx); Ischemic stroke (HCC); Hypertension, unspecified type; Hyperlipidemia, unspecified hyperlipidemia type; Smoking Start: 12-16-2022 End: 12-16-2022 Telemedicine consultation with patient Jah Diaz MD Work Phone: [facility] Start: 12-04-2022 Telephone encounter Neurology Provid er [facility] Comment on above: Future Appointment ( [place] Patient, [place], Any) Start: 08-25-2022 Rx Renewal Mily Andrade Work Phone: [facility] 250 DO Work Phone: Start: 01-07-2022 Rx Renewal Mily Andrade Work Phone: [facility] 250 DO Work Phone: Start: 12-11-2021 Office outpatient vi sit 15 minutes Mily A Andrade Work Phone: [facility] 250 DO Work Phone: Start: 12-11-2021 ambulatory Ms. Mily ramos Andarde Facility: Start: 10-11-2021 Telephone encounter Mily Ashley Andrade Work Phone: [facility] 250 DO Work Phone: Start: 09-03-2021 Rx Renewal Mily Aslhey Andrade Work Phone: [facility] 250 DO Work Phone: Start: 02-05-2021 Office outpatient vi sit 10 minutes Mily Ashley Andrade Work Phone: [facility] 250 DO Work Phone: Start: 02-05-[address] [facility] Start: 12-04-2020 Patient encounter procedure Bruce Elias DO Work Phone: [facility] 600 DO Work Phone: Start: 09-05-2020 End: 03-06-2021 ambulatory SALAS KIRKPATRICK Facility:H1 Echocardiogram normal Mily Ashley Andrade Work Phone: [facility] 250 DO Work Phone: Procedures Date Procedure Procedure Detail Performing Clinician Start: 11-18-2024 CTA HEAD WO/W IVCON Gen omid External Data Provider Start: 09-16-2024 Hemoglobin glycosyla adarsh a1c Chyna Seth Petlisetteick DO Work Phone: Start: 07-01-2024 Urnls dip stick/tabl et rgnt non-auto w/o micrscp Jeannette Alvarado CONTRACTOR BUYER Work Phone: Start: 06-10-2024 Hemoglobin glycosyla adarsh a1c Chyna Seth Petlisetteick DO Work Phone: Start: 01-10-2025 Hemoglobin glycosyla adarsh a1c Chyna Luna DO Work Phone: Start: 01-12-2024 Oph bmtry prtl coher intrfrmtry io lens pwr agustina Hollie Doshi DO Work Phone: Start: 01-12-2024 End: 01-12-2024 Ophth medical xm&eval comprhnsv estab pt 1/> Age-related nuclear cataract of both eyes Hollie Doshi DO Work Phone: Comment on above: Age-related nuclear cataract of both eyes (Primary Dx); 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 Start: 12-11-2023 [facility] UA (CLEAN/CATCH) MICROSCOPIC IF INDICATE Yadira Andrade CONTRACTOR BUYER Work Phone: Start: 11-17-2023 Dup-scan xtr veins unilateral/limited study Mily Andrade CONTRACTOR BUYER Work Phone: Start: 11-17-2023 Culture bacterial quanttative colony count urine Mily Andrade CONTRACTOR BUYER Work Phone: Start: 11-17-2023 Urnls dip stick/tabl et rgnt non-auto w/o micrscp Mily Andrade CONTRACTOR BUYER Work Phone: Start: 11-17-2023 Hemoglobin glycosyla adarsh a1c Mily Andrade CONTRACTOR BUYER Work Phone: Start: 07-07-2023 Ct angiography head w/contrast/noncontrast Jeffery Gordon SOLAR PROJECT ENGINEER.LARRIMAN Work Phone: Start: 07-07-2023 Creatinine [Mass/vol ume] in Serum or Plasma [facility] Provider Start: 04-14-2023 [facility] UA (CLEAN/CATCH) TEST HOLE DRILLER/MICRO IF IND. Radha Herrera MD Work Phone: Start: 04-14-2023 [facility] URINE MICROSCOPI C ONLY Radha Herrera MD [...] Date Care Activity Detail Author Start: 06-09-2028 Urine microalbumin profile DTaP,Tdap,Td Vaccine (2 - Td or Tdap) [facility] Start: 06-05-2026 Screening for malign ant neoplasm of colon [facility] Start: 01-16-2026 Diabetes Screening Diabetes Screenin [facility] Start: 01-11-2026 Glaucoma screening Diabetes: R etinopathy Screening [facility] Start: 12-03-2025 Glaucoma screening Diabetes: R etinopathy Screening [facility] Start: 07-01-2025 Urine screening for protein Diabetes: Urine Protein Screening [facility] Start: 12-26-2024 Glaucoma screening Diabetes: R etinopathy Screening [facility] Start: 12-21-2024 End: 12-21-2024 Patient encounter procedure Radiology Comment on above: 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] Start: 12-17-2024 Hemoglobin A1c measurement Diabetes: Hemoglobin A1C [facility] Start: 12-16-2024 End: 12-16-2024 Patient encounter procedure [facility] Start: 11-18-2024 End: 11-18-2024 Patient encounter procedure Radiology Comment on above: CTA HEAD WO/W IVCON/ Nonruptured cerebral aneurysm (HCC) [I67.1] aneurysm follow up Start: 10-31-2024 Influenza vaccination [facility] Start: 10-04-2024 End: 10-04-2024 Patient encounter procedure [facility] Comment on above: Arrived Start: 09-16-2024 End: 09-16-2024 Patient encounter procedure [facility] 230 Comment on above: Type 1 diabetes clarita itus with other circulatory complications (HCC) Start: 09-09-2024 Hemoglobin A1c measurement Diabetes: Hemoglobin A1C [facility] Start: 09-09-2024 End: 09-09-2024 Patient encounter procedure 09/09/2024 1:30 PM EDT Office Visit [facility] [address] [place] [phone] Chyna Luna DO [address] [place] [address] [facility] Start: 07-06-2024 BP Controlled (<130/80) BP Controlle d (<130/80) [facility] Start: 07-01-2024 End: 07-01-2025 Bacteria identified in Urine by Culture Urine culture (clean catch) Microbiology Routine Urinary frequency Expected: 07/01/2024 (Approximate), Expires: 07/01/2025 [facility] Comment on above: Expected: 07/01/2024 (Approximate), Expires: 07/01/2025 Start: 07-01-2024 End: 07-01-2025 Comprehensive metabolic 2000 panel - Serum or Plasma Comprehensive metabolic panel Lab Routine Type 1 diabetes mellitus with other circulatory complications Expected: 07/01/2024 (Approximate), Expires: 07/01/2025 [facility] Work Phone: Comment on above: Expected: 07/01/2024 (Approximate), Expires: 07/01/2025 Start: 07-01-2024 End: 07-01-2025 Lipid 1996 panel - Serum or Plasma Lipid panel Lab Routine Mixed hyperlipidemia (CMS/HCC) Expected: 07/01/2024 (Approximate), Expires: 07/01/2025 [facility] Comment on above: Expected: 07/01/2024 (Approximate), Expires: 07/01/2025 Start: 07-01-2024 End: 07-01-2025 Microalbumin/Creatinine panel in random Urine Microalbumin / creatinine, urine ratio Lab Routine Type 1 diabetes mellitus with other circulatory complications Expected: 07/01/2024 (Approximate), Expires: 07/01/2025 [facility] Comment on above: Expected: 07/01/2024 (Approximate), Expires: 07/01/2025 Start: 07-01-2024 End: 07-01-2025 TSH W/REFLEX TO FT4 TSH W/REFLEX TO FT4 Lab Routine Acquired hypothyroidism (CMS/HCC) Expected: 07/01/2024 (Approximate), Expires: 07/01/2025 [facility] Comment on above: Expected: 07/01/2024 (Approximate), Expires: 07/01/2025 Start: 07-01-2024 End: 07-01-2024 Patient encounter procedure 07/01/2024 9:30 AM EDT Office Visit [facility] [address] [place] [address] Jeannette Alvarado NP [address] [place] [address] [facility] Start: 06-10-2024 End: 06-10-2024 Patient encounter procedure 06/10/2024 1:30 PM EDT Office Visit [facility] [address] [place] [phone] Chyna Luna, DO [address] [place] [address] [facility] 230 Start: 06-09-2024 Hemoglobin A1c measurement Diabetes: Hemoglobin A1C [facility] Start: 03-11-2024 End: 03-11-2024 Patient encounter procedure 03/11/2024 10:15 AM EST Office Visit [facility] [address] [place] [address] Chyna Luna M, DO [address] [place] [address] [facility] 230 Start: 01-01-2025 Advance Directive Discussion Advance Directive Discussion [facility] Start: 02-16-2024 Hemoglobin A1c measurement Diabetes: Hemoglobin A1C [facility] Start: 02-09-2024 End: 02-09-2024 Patient encounter procedure 02/09/2024 1:00 PM EST Office Visit [facility] [address] [place] [phone] Hollie Doshi, DO [address] [place] [address] [facility] Start: 01-27-2024 End: 01-27-2024 Patient encounter procedure 01/27/2024 2:00 PM EST Office Visit [facility] [address] [place] [phone] Hollie Doshi, DO [address] [place] [address] [facility] Start: 01-12-2024 End: 01-12-2024 Patient encounter procedure 01/12/2024 1:00 PM EST Office Visit [facility] [address] [place] [address] Hollie Doshi, DO [address] [place] [address] [facility] Start: 01-09-2024 End: 01-09-2024 Patient encounter procedure 01/09/2024 9:00 AM EST Office Visit [facility] [address] [place] [address] Mily Andrade NP [address] [place] [address] [facility] Start: 12-08-2023 End: 12-08-2023 Patient encounter procedure 12/08/2023 3:15 PM EDT Office Visit [facility] [address] [place] [phone] Sonu Bruner, JAY JAY [address] [place], [place] [phone] [facility] Start: 12-04-2023 End: 03-04-2024 CREATININE BLD CREATININE BLD Lab Routine Nonruptured cerebral aneurysm Expected: 12/04/2023, Expires: 03/04/2024 [facility] Comment on above: Expected: 12/04/2023 , Expires: 03/04/2024 Start: 12-04-2023 End: 12-04-2023 Patient encounter procedure [facility] 230 Comment on above: Diabetic ketoacidosi s without coma associated with type 2 diabetes mellitus ([facility]) Start: 12-02-2023 Urine screening for protein Diabetes: Urine Protein Screening [facility] Start: 11-17-2023 End: 11-17-2023 Patient encounter procedure 11/17/2023 3:00 PM EDT Office Visit [facility] [address] [place] [phone] Mily Andrade, ANDRESAS [address] [place], [place] [phone] [facility] Start: 11-01-2023 Covid-19 Vaccine ( season) Covid-19 Vaccine () [facility] Start: 11-01-2023 Influenza vaccination [facility] Start: 08-06-2023 Subsequent hospital visit by physician 08/06/2023 Hospital Encounter [facility] [address] [place] [address] Jah Diaz MD [address] [place] [address] Unruptured cerebral aneurysm [I67.1] [facility] Comment on above: Unruptured cerebral aneurysm [I67.1] Start: 07-17-2023 Hemoglobin A1c measurement HbA1C [facility] Start: 07-13-2023 End: 10-12-2023 aPTT in Platelet poor plasma by Coagulation assay ACTIVATED PARTIAL THROMBOPLASTIN TIME Lab Routine Unruptured cerebral aneurysm Encounter for monitoring antiplatelet therapy Expected: 07/13/2023, Expires: 10/12/2023 [facility] Comment on above: Expected: 07/13/2023 , Expires: 10/12/2023 Start: 07-13-2023 End: 10-12-2023 Basic metabolic 2000 panel - Serum or Plasma BASIC METABOLIC PANEL Lab Routine Unruptured cerebral aneurysm Expected: 07/13/2023, Expires: 10/12/2023 [facility] Comment on above: Expected: 07/13/2023 , Expires: 10/12/2023 Start: 07-13-2023 End: 10-12-2023 CBC panel - Blood by Automated count COMPLETE BLOOD COUNT Lab Routine Unruptured cerebral aneurysm Expected: 07/13/2023, Expires: 10/12/2023 [facility] Work Phone: Comment on above: Expected: 07/13/2023 , Expires: 10/12/2023 Start: 07-13-2023 End: 10-12-2023 PT panel - Platelet poor plasma by Coagulation assay PROTHROMBIN TIME Lab Routine Unruptured cerebral aneurysm Encounter for monitoring antiplatelet therapy Expected: 07/13/2023, Expires: 10/12/2023 [facility] Comment on above: Expected: 07/13/2023 , Expires: 10/12/2023 Start: 07-01-2023 Medicare Annual Wellness Visit Medicare Annual Wellness Visit [facility] Start: 05-20-2023 Urine screening for protein Diabetes: Urine Protein Screening [facility] Start: 05-17-2023 Urine screening for protein Diabetes: Urine Protein Screening [facility] Start: 04-24-2023 Screening for malign ant neoplasm of breast [facility] Start: 04-21-2023 End: 04-21-2023 Patient encounter procedure 04/21/2023 3:00 PM EST Office Visit [facility] [address] [place] [phone] Mily Andrade NP [address] [place], [place] [id number] [facility] Start: 04-16-2023 Medicare Annual Wellness (AWV) Medicare Annual Wellness (AWV) [facility] Start: 03-02-2023 Advance Directive Discussion Advance Directive Discussion [facility] Start: 03-02-2023 Behavioral Health Screening Behavioral Health Screening [facility] Start: 12-11-2022 FUV, Provider: Bruce Elias, Status: Pen, Time: 10:20 AM FUV, Provider: Bruce Elias, Status: Pen, Time: 10:20 AM [facility] 250 DO Work Phone: Start: 10-31-2022 Covid-19 Vaccine () Covid-19 Vaccine () [facility] Start: 10-31-2022 Influenza vaccination Influenza Vacc ine (#1) [facility] Start: 06-11-2022 Hemoglobin A1c measurement Diabetes: Hemoglobin A1C [facility] Start: 03-02-2022 Advance Directive Discussion Advance Directive Discussion [facility] Start: 03-02-2022 Depression Assessment Depression Ass essment [facility] Start: 12-11-2021 FUV, Provider: Bruce Elias, Status: Pen, Time: 11:20 AM FUV, Provider: Bruce Elias, Status: Pen, Time: 11:[address] [facility] Work Phone: Start: 02-19-2021 NURSEVST, Provider: DAVID LANDEROS LIDDER 1,[id number], Status: Pen, Time: 11:00 AM NURSEVST, Provider: DAVID LANDEROS LIDDER 1,[id number], Status: Pen, Time: 11:00 AM [facility] 250 DO Work Phone: Start: 01-09-2021 FUV, Provider: Salas Wilson, Status: Pen, Time: 1:30 PM FUV, Provider: Salas Wilson, Status: Pen, Time: 1:[address] [facility] DO Work Phone: Start: 04-03-2020 Shingrix Vaccine (2 of 2) Shingrix Vaccine (2 of 2) [facility] Start: 2015 Bone Density Screening Bone Density Screening [facility] Start: 2010 RSV Vaccine (1 - 1-d ose 60+ series) RSV Vaccine (1 - 1-dose 60+ series) [facility] Start: 2010 RSV Vaccine (1 - Ris k 60-74 years 1-dose series) RSV Vaccine (1 - Risk 60-74 years 1-dose series) [facility] Start: 02-22-2000 Screening for malign ant neoplasm of lung Lung Cancer Screening [facility] Start: 02-22-2000 Shingrix Vaccine (1 of 2) Shingrix Vaccine (1 of 2) [facility] Start: 1995 Cologuard (FIT-DNA) Cologuard (FIT-D NA) [facility] Start: 1995 Colonoscopy Colonoscopy [facility] Start: 1995 Colorectal Cancer Screening Colorectal Cancer Screening [facility] Start: [address] COLONOGRAPHY [facility] Start: 1995 Diabetes Screening Diabetes Screenin g [facility] Start: 1995 Fecal Occult Blood Fecal Occult Bloo d [facility] Start: 1995 Lipid 1996 panel - Serum or Plasma Lipid Screening [facility] Start: 1995 Screening for malign ant neoplasm of colon [facility] Start: 1995 SIGMOIDOSCOPY SIGMOIDOSCOPY [facility] Start: 1990 Mammography Mammogram Screening [facility] Start: 1969 Urine microalbumin profile DTaP,Tdap,Td Vaccine (1 - Tdap) [facility] Start: 02-22-1968 Annual PCP Team Ballroom Dance Instructor dorina Disease Visit Annual PCP Team Chronic Disease Visit [facility] Start: 02-22-1968 Anxiety Screening Anxiety Screening [facility] Start: 02-22-1968 Depression Screening Depression Scre ening [facility] Start: 02-22-1968 Hepatitis B surface antibody level LDL Cholesterol [facility] Start: 02-22-1968 Hepatitis C Screening Hepatitis C [facility] Start: 02-22-1968 Hepatitis C screening Hepatitis C [facility] Start: 02-22-1960 Diabetic foot examination Diabetic Foot Exam [facility] Start: 02-22-1960 Glaucoma screening Dilated Retinal E xam [facility] Start: 02-22-1960 Hepatitis B screening Urine Al bumin:Creatinine Ratio [facility] Start: 02-22-1956 Pneumococcal Vaccine : 65+ (1 - PCV) Pneumococcal Vaccine: 65+ (1 - PCV) [facility] Start: 1950 Medicare Annual Wellness (AWV) Medicare Annual Wellness (AWV) [facility] Start: 1950 Screening for malign ant neoplasm of colon [facility] End: 01-02-2025 CTA Head vessels WO and W contrast IV CTA HEAD WO/W IVCON Radiology Routine Nonruptured cerebral aneurysm 1 Occurrences starting 12/04/2023 until 01/02/2025 [facility] Work Phone: Comment on above: 1 Occurrences starti ng 12/04/2023 until 01/02/2025 IR CEREBRAL ARCH & THREE VESSEL IR CEREBRAL ARCH & THREE VESSEL Radiology Routine Unruptured cerebral aneurysm Ordered: 07/13/2023 [facility] Comment on above: Ordered: 07/13/2023 Slctv cath intrcrnl brnch angio intrl carot/vert SELECTIVE CATHETER PLACEMENT EACH INTRACRANIAL BRANCH OF THE INTERNAL CAROTID OR VERTEBRAL ARTERIES UNILATERAL W/ ANGIOGRAPHY OF THE SELECTED VESSEL CIRCULATION AND ALL ASSOCIATED RADIOLOGICAL SUPERVISION AND INTERPRETATION Unruptured cerebral aneurysm [facility] Immunizations Immunization Date Immunization Notes Care Provider Ronny naylor 05-16-2022 influenza, injectabl e, quadrivalent, preservative free Chyna Luna DO Work Phone: [facility] 05-16-2022 influenza virus vaccine, unspecified formulation Jah Diaz MD Work Phone: [facility] 04-10-2021 Moderna COVID-19 Vaccine 100 MCG/0.5ML Intramuscular Suspension Mily Andrade Work Phone: -[facility] 250 DO Work Phone: 05-09-2020 Lico COVID-19 Vaccine 0.5 ML Intramuscular Suspension Bruce Elias DO [facility] 600 DO Work Phone: 02-07-2020 influenza, high dose seasonal, preservative-free Bruce Elias DO [facility] Phone: [facility] DO Work Phone: 02-07-2020 zoster vaccine recombinant Bruce Elias DO Work Phone: [facility] 600 DO Work Phone: 02-07-2020 influenza virus vaccine, unspecified formulation Neurology Provider [facility] 03-02-2019 influenza, seasonal, injectable Bruce [facility]as DO [facility] DO Work Phone: 02-14-2019 influenza, high dose seasonal, preservative-free Bruce Elias DO Work Phone: [facility] 600 DO Work Phone: 06-09-2018 tetanus toxoid, redu clif diphtheria toxoid, and acellular pertussis vaccine, adsorbed Bruce Elias DO Work Phone: [facility] 600 DO Work Phone: 03-02-2018 pneumococcal polysaccharide vaccine, 23 valent Bruce Elias DO [facility] DO Work Phone: 12-02-2017 influenza, high dose seasonal, preservative-free Bruce Elias DO Work Phone: [facility] DO Work Phone: 02-25-2017 influenza, high dose seasonal, preservative-free Bruce Elias DO Work Phone: [facility] 600 DO Work Phone: 02-17-2017 pneumococcal polysaccharide vaccine, 23 valent Bruce Elias DO [facility] DO Work Phone: 11-06-2015 influenza, injectabl e, quadrivalent, contains preservative Bruce Elias DO Work Phone: [facility] DO Work Phone: 11-06-2015 influenza, injectabl e, quadrivalent, preservative free Chyna Petznick DO Work Phone: [facility] 11-06-2015 pneumococcal conjuga te vaccine, 13 valent Bruce Elias DO Work Phone: [facility] 600 DO Work Phone: 12-11-2014 seasonal influenza, intradermal, preservative free Chyna Petznick DO Work Phone: [facility] 11-30-2014 influenza, seasonal, injectable, preservative free Chyna Petznick DO Work Phone: [facility] 12-15-2013 influenza, seasonal, injectable Bruce Elias DO Work Phone: [facility] 600 DO Work Phone: 12-21-2012 influenza, seasonal, injectable Bruce Elias DO Work Phone: [facility] 600 DO Work Phone: 12-16-2006 pneumococcal polysaccharide vaccine, 23 valent Bruce Elias DO Work Phone: [facility] 600 DO Work Phone: 11-18-2006 pneumococcal polysaccharide vaccine, 23 valent Bruce Elias DO Work Phone: [phone] Work Phone: Payers Date Payer Category Payer Medicaid [id number] 2023 Medicaid [id number] 2015 Medicare [id number] 2015 Medicare [id number] 1959 Medicare [id number] 1950 Unknown [id number] 2.16.84 0.1.396521.3.579.2.593 1950 Unknown [id number] 2.16. 840.1.686272.3.579.2.356 1950 Unknown [id number] 2.16. 840.1.117735.3.579.2.356 1950 Unknown [id number] 2.16.84 0.1.674776.3.579.2.1286 1950 Unknown [id number] 2.16.8 40.1.925994.3.579.2.1286 1950 Unknown [id number] 2.16.84 0.1.608962.3.579.2.1286 1950 Unknown [id number] 2.16.84 0.1.193103.3.579.2.1286 1950 Unknown [id number] 2.16.8 40.1.681816.3.579.2.1259 1950 Unknown [id number] 2.16.8 40.1.694545.3.579.2.1259 1950 Unknown [id number] 2.16.8 40.1.276370.3.579.2.1259 1950 Unknown [id number] 2.16.8 40.1.812350.3.579.2.1259 1950 Unknown [id number] 2.16.8 40.1.574925.3.579.2.1259 1950 Unknown [id number] 2.16.84 0.1.468261.3.579.2.1259 1950 Unknown [id number] 2.16.84 0.1.199950.3.579.2.1259 1950 Unknown [id number] 2.16.84 0.1.541062.3.579.2.1259 1950 Unknown [id number] 2.16.84 0.1.054943.3.579.2.1259 1950 Unknown [id number] 2.16.84 0.1.469661.3.579.2.1259 1950 Unknown [id number] 2.16.84 0.1.528538.3.579.2.1259 1950 Unknown [id number] 2.16.84 0.1.020715.3.579.2.1259 1950 Unknown [id number] 2.16.84 0.1.421013.3.579.2.1259 1950 Unknown [id number] 2.16.84 0.1.077130.3.579.2.1259 1950 Unknown [id number] 2.16.84 0.1.243661.3.579.2.1259 Unknown Social History Date Type Detail Facility Start: 10-14-2018 End: 09-16-2024 No alcohol use No alcohol use [facility] Comment on above: 1 TEA DAILY; 1/2 PPD; Start: 10-14-2018 End: 03-25-2023 Tobacco smoking status [facility] Smokes tobacco daily [facility] Start: 03-02-1989 History of tobacco use Cigarette Smo ker [facility] Start: 10-14-2018 End: 01-12-2024 Tobacco use and exposure Smokeless tobacco non-user [facility] Start: 04-21-2019 End: 09-16-2024 Tobacco use panel [facility] Start: 09-29-2018 National Score (1-10 0), lower number is lower risk Not on file [facility] Start: 1950 Sex Assigned At Female [facility] Start: 05-14-2022 Gender identity Identifies as female gender (finding) [facility] Start: 12-09-2022 Sexual orientation Heterosexual (fin ding) [facility] Start: 12-26-2022 End: 01-12-2024 Tobacco smoking status [facility] Ex-smoker [facility] Start: 03-02-1989 History of tobacco use Current smoke r [facility] Start: 1950 Sex Assigned At Not on file [facility] Start: 12-02-2023 End: 11-22-2024 Alcoholic beverage intake Lifetime non-drinker (finding) [facility] Start: 11-17-2023 Alcohol Comment caffeine: 2-3 cups per day [facility] How often to you hav e a drink containing alcohol? Never [facility] Start: 04-20-2023 Alcohol Comment caffeine: 1-2 cups per day [facility] Medical Equipment Procedure Code Equipment Code Equipment Origin al Text Equipment Identifier Dates Inject 1 each un chano the skin in the morning and 1 each in the evening and 1 each before bedtime. [id number] Start: 07-22-2022 End: 03-11-2024 Use as instructe d 5 times a day [id number] Start: 04-15-2024 Goals Date Patient Goal Desired Activity /State Personal health goal Functional Status Date Assessment Result Facility 09-16-2024 Patient Health Quest ionnaire 2 item (PHQ-2) [Reported] [facility] Clinical Notes 12-08-2022 to 11-28-2024 Telephone Encounter - Corrie Dorantes MD - 11/22/2024 2:41 PM EDTTelephone Encounter - Corrie Dorantes MD - 11/22/2024 2:41 PM EDTTelephone Encounter - Corrie Dorantes MD - 11/15/2024 4:19 PM EDT Note Date & Type Note Facility 11-28-2024 Note HNO ID: [id number] Author: JEFFERY GORDON APRN.LARRIMAN Service: ? Author Type: Nurse Practitioner Type: Progress Notes Filed: 11/28/2024 14:18 Note Text: ADDENDUM: CTA head (11/18/2024): Compared to 07/07/2023, redemonstrated left MCA M2 segment aneurysm with decreased size of the enhancing lumen. Unchanged overall aneurysm size. New right MCA M2 segment moderate to severe focal stenosis. No large vessel occlusion. No acute intracranial findings. Redemonstrated right MCA, left SIDE SAWYER, and left cerebellar chronic infarcts. Imaging reviewed with Dr. Diaz; no DSA or intervention recommended for aneurysm or MCA stenosis given age and co-morbidities. CTA head in one year (10/2025) to monitor aneurysm. Maximal medical management of vascular risk factors. Labs not available in our system. Recommend cessation of triple AP/AC therapy and continue aspirin and apixaban. Patient notified of Dr. Diaz's recommendations via [employer] message. We will request labs from PCP for review. [facility] 11-22-2024 Telephone encounter Note Approving, but needs appt for additional refills. [facility] 11-22-2024 Miscellaneous Notes Approving, but needs appt for additional refills. documented in this encounter [facility] 11-18-2024 Note HNO ID: [id number] Author: JEFFERY GORDON APRN.CNP Service: ? Author Type: Nurse Practitioner Type: Progress Notes Filed: 11/28/2024 14:18 Note Text: [facility]: Cerebrovascular Neurosurgery and Endovascular Surgical Neuroradiology Established Visit Lucila Tineo [facility] [id number] Date of Service: 11/18/2024 Primary Care Provider: Mily Andrade CNP Subjective PCP: Mily Andrade CNP Collaborating Physician: Jah Diaz MD Referring Provider: Osei Roe Chief Complaint: Unruptured aneurysm History of Event: 74 year old female with PMH HTN, DM, HLD, hypothyroidism, CAD s/p NSTEMI, PAD, right MCA stroke 09/2022 due to M2 occlusion, and AAA, presenting for follow-up her 1.5cm partially thrombosed and calcified left MCA aneurysm. Accompanied by her daughter, who assists with providing history. [place] 07/07/[address] 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 She suffered significant left-sided deficits due to her stroke and resided in a [facility] facility. She reports improvement in her left-sided deficits, now able to walk with a walker. Her left hand function is variable, sometimes cooperative and sometimes not, but she continues to practice exercises taught by therapists. She is right-handed and able to perform daily activities despite the deficits. She has been working with therapy for strength and recovery, but was recently discharged due to insurance reasons. She expresses interest in continuing therapy and in new treatments to improve her left hand function. She denies new headaches, numbness, tingling, or speech difficulties. She reports persistent vision problems since the stroke, which have not worsened. She also reports worsening left leg swelling over the past several weeks, with intermittent pain that has improved with increased activity. She denies any difference in temperature or sensation compared to the right leg. She had negative US as ordered by her PCP, awaiting [facility] with [facility]. She is currently on triple antithrombotic therapy with Eliquis, aspirin 81 mg, and clopidogrel. She reports frequent bruising, but denies any bleeding from the nose, gums, urine, or stool. She is also on medication for hypertension, with recent blood pressure readings of 134/82 and 116/72. She does not monitor her blood pressure at home. She quit smoking in 2022 after her stroke and denies any current tobacco, drug, or alcohol use. She is currently living in assisted living but plans to transition to a granny pod on her daughter's property. She has a family history of stroke in her father and aortic aneurysm in her son. She denies any family history of brain aneurysm, AVMs, dissections. BP today 143/78. Treated for HTN. Aspirin, clopidogrel, Eliquis. Former smoker, quit 09/2022 No family history of brain aneurysms. Father suffered a stroke. Handedness: right-handed Review of Systems - see HPI Head: (-) headache Eyes: (+) decreased vision Ears/Nose/Mouth/Throat: (-) epistaxis, (-) gingival bleeding Gastrointestinal: (-) melena Genitourinary: (-) hematuria Musculoskeletal: (+) left leg swelling, (-) leg pain Neurological: (+) weakness, (-) numbness, (-) tingling, (-) dizziness, (-) lightheadedness, (-) speech difficulty Hematologic/Lymphatic: (+) bruising ACTIVE PROBLEM LIST Uncontrolled Type 2 Diabetes Mellitus With Hyperglycemia (Hcc) Claudication PAST SURGICAL HISTORY Procedure Laterality Date APPENDECTOMY [...] 75 mg by mouth once daily. nitroglycerin s (more content not included)... [facility] 11-18-2024 Note HNO ID: [id number] Author: CODI GAMBOA RT(R) Service: Radiology Author Type: Waste Management Engineer Type: Progress Notes Filed: 11/18/2024 11:15 Note Text: Radiology Service Progress Note PATIENT NAME: Lucila Tineo DATE OF SERVICE: November 18, 2024 TIME: 11:02 AM PATIENT IDENTITY VERIFICATION COMPLETED USING TWO (2) IDENTIFIERS: Name and Date of confirmed by patient verbally and Name and Date of confirmed by identification band. FALL SCREENING: Has the patient had 2 falls in the last year or 1 fall with injury or currently using an Ambulatory Assistive Device (Walker, Cane, Wheelchair, Crutches, etc.)? No PATIENT GENDER DATA: Assigned female at . status: : No status: NO. PATIENT RELEVANT IMPLANT DATA REVIEWED: Yes PATIENT PRESENTS WITH AN IMPLANTABLE OR ATTACHED METAL FURNITURE POLISHER: No RADIOLOGY DEPARTMENT: CT; Exam(s) Completed: Brain and CTA Brain . Anesthesia: No PERIPHERAL IV DATA: Site assessment: Clean,Dry and Intact, Site disposition Discontinued SIGNED BY: RT Nicolasa(R) November 18, 2024 11:02 AM [facility] 11-18-2024 Note HNO ID: [id number] Author: BANDAR SALAZAR RN Service: Radiology Author Type: Registered Nurse Type: Progress Notes Filed: 11/18/2024 11:05 Note Text: Radiology Service Progress Note DATE OF SERVICE: November 18, 2024 TIME: 10:46 AM PATIENT WEIGHT: 170 LBS PATIENT IDENTITY VERIFICATION COMPLETED USING TWO (2) [...] place to prevent falls during this visit? Instructed Patient to Call for Help if Needed, Offered Assistance with Transfers/Clothing, and Instructed Patient to Remain Seated (Not on Exam Table) Until Exam PATIENT GENDER DATA: Assigned female at . status: : No status: NO. ALLERGIES: Reviewed and unchanged CONTRAST ALLERGY: No EXAM: CT -CONTRAST INDUCED NEPHROPATHY RISK FACTORS: Patient age > 60 years and Diabetic: Yes. Current medication(s): Insulin Insulin Pump: N/A Insulin Pump Removed: N/A. Patient currently has insulin pump?: N/A CREATININE: Creatinine Date Value Ref Range Status 03/25/2023 0.60 0.58 - 0.96 mg/dL Final Creatinine (POCT) Date Value Ref Range Status 11/18/2024 0.70 0.7 - 1.4 mg/dL Final 07/07/2023 0.70 0.7 - 1.4 mg/dL Final eGFR (POCT) Date Value Ref Range Status 11/18/2024 >60 mL/min/1.73 m2 Final eGFR- (POCT) Date Value Ref Range Status 09/20/2020 >60 mL/min/1.73 m2 Final P.O.C.T. RESULTS: POC done: Yes, See Lab Tab November 18, 2024 TREATMENT: No Hydration needed. IV SITE: Ambulatory: A peripheral IV was started in the Right antecubital site with a Angio cath: 22 gauge. and A Saline lock was inserted per protocol IV SITE APPEARANCE: Clean,Dry and Intact SIGNATURE: Bandar Salazar RN PATIENT NAME: Lucila Tineo DATE: November 18, 2024 TIME: 10:46 AM [facility] 11-15-2024 Telephone encounter Note Approving, but needs appt for additional refills. [facility] 11-15-2024 Miscellaneous Notes Approving, but needs appt for additional refills. documented in this encounter [facility] 10-28-2024 Telephone encounter Note Patient's daughter called and rescheduled [facility] Work Phone: 10-28-2024 Miscellaneous Notes Patient's daughter called and rescheduled Left message for patient to call office to reschedule 11/02/2024 appointment documented in this encounter [facility] 10-28-2024 Telephone encounter Note Left message for patient to call office to reschedule 11/02/2024 appointment [facility] 10-24-2024 Telephone encounter Note Approving, but needs appt for additional refills. [facility] 10-24-2024 Miscellaneous Notes Approving, but needs appt for additional refills. Sandra from Assisted Living called for refill. Pt only has one week of medication left. documented in this encounter [facility] 10-24-2024 Telephone encounter Note Sandra from Assisted Living called for refill. Pt only has one week of medication left. [facility] 10-04-2024 History of Present illness Narrative Subjective Patient ID: Lucila Tineo is a 74 y.o. female who presents for Edema. HPI History of Present Illness The patient presents for evaluation of left leg swelling. She has been experiencing persistent swelling in her left leg for several weeks, the cause of which remains unknown. The swelling was first noticed after she slipped from her recliner, although it is unclear if an injury occurred at that time. Medical attention was sought two weeks ago, but no injury-related cause was identified. She reports no open wounds on her leg. Elevation of the leg has been attempted, but not as frequently as recommended. The swelling is now localized above her knee. Pain is described as an ache, occasionally accompanied by a shooting pain up the back of the leg. Occasional abdominal pain is reported, which she attributes to her implant injections. No groin pain is reported. She has a history of vascular issues and blockages, with uncertainty regarding whether these were in the right or left leg. Severe pain in both knees upon standing is a new symptom that was not present initially. Stiffness is not believed to be due to increased use during therapy. Walking is particularly difficult due to the swelling. No shortness of breath or chest pain is reported. Limited sensation in the leg is noted, with suspicion that something may have been pulled when trying to catch herself during the fall. There is a tendency to twist the leg under her chair without realizing it until the pain becomes severe due to limited sensation. Despite this, the ache in the leg is now constant. She has been on Xarelto 20 mg daily for some time. Previous consultations include Dr. José Miguel Box at [facility] for an aortic aneurysm and Dr. Hawk for the past year. PAST SURGICAL HISTORY: - Aortic aneurysm repair Objective BP 134/82 Pulse 82 Ht 5' 4 Wt 161 lb SpO2 94% BMI 27.64 kg/m Physical Exam Physical Exam General Appearance: Normal. Vital signs: Within normal limits. HEENT: Within normal limits. Respiratory: Clear to auscultation, no wheezing, rales or rhonchi. Cardiovascular: regular rate and rhythm with no murmur. Abd: soft, nontender, non distended Extremities: Left leg is swollen compared to the right side. There is a difference in temperature between the left and right legs. Toes are colder on the left side. Radha's sign in positive. Skin: Warm and dry, no rash. Neurological: Normal. Psychiatric: Normal. Assessment & Plan Leg edema, left Orders: Vascular US lower extremity venous duplex left; Future Assessment & Plan 1. Left leg swelling. - The left leg swelling is likely due to a blockage along the pathway, possibly originating from the abdominal area. - No evidence of congestive heart failure or other systemic issues, given the absence of shortness of breath or chest pain. - A venous duplex study will be conducted today at 1:30 PM to rule out any blood clots. - If the venous study is negative, an arterial study will be performed tomorrow. documented in this encounter [facility] 09-17-2024 History of Present illness Narrative Associated Problem(s): Type 1 diabetes mellitus with other circulatory complications (HCC) During the appointment today all pertinent labs, [...] any problems or questions. Lucila Tineo is making improvements and encouraged on this. , Will stay on current medications. , The patient is wearing their cgm on a daily basis and making decisions in regards to adjusting insulin daily as well for at least the last 60 days , Instructed on the importance of taking insulin before eating. If it has been more than 30-45 min since eating they should not give the meal dose but should just give a correction insulin dose. , Instructions given today include: Insulin instructions and Dietary education. Bg are much better with dietary changes and changes in her insulin. Occasionally has big spikes but most of the time she is in good control. Gave her a sample shaina 3 reader to see if this helps with her connection issues she was having. Images from the original note were not included. Lucila Tineo is a 74 y.o. female presents with chief complaint of Diabetes HPI: Diabetes Mellitus Follow-up: Lucila Tineo is here for follow-up evaluation of diabetes mellitus. The initial diagnosis of diabetes was made in 2008 Diabetes complications: cardiovascular disease and cerebrovascular disease Hx diabetes medications not tolerated: metformin- diarrhea She has been checking her blood glucose with a [employer] Shaina 3 CGM-READER- on a daily basis. Bg running 120-160 in the am, 110-250 prelunch, 130-180 predinner, 120-180 at bedtime. Gets nervous about not always getting the right amt of insulin and the timing of the insulin as she relies on nurses to give her this at assisted living. They have missed giving her meds at night a couple of times. Last A1c: 8.4 (06/10/24) Last eye exam: 01/12/2024 Current concerns include: Has been doing fingerstick since Thursday due to sensors losing signal often. BG levels: improving overall, still fluctuating Diet: family is work on limiting carbs and sugars. She has one meal a day at the facility Drinks: water, unsweetened ice tea, diet soda Exercise: none Hypoglycemia: none SUBJECTIVE: PROBLEM LIST SOCIAL ALLERGIES: Patient Active Problem List Diagnosis Cerebrovascular accident (CVA) (HCC) Left homonymous hemianopsia Age-related nuclear cataract of both eyes Dry eyes Arthritis Atherosclerotic heart disease of [place] coronary artery without angina pectoris Essential hypertension Bilateral carotid artery stenosis Cigarette nicotine dependence without complication COPD (chronic obstructive pulmonary disease) (HCC) Degeneration of lumbar intervertebral disc Descending aortic aneurysm Type 1 diabetes mellitus with other circulatory complications ([facility]) History of non-ST elevation myocardial infarction (NSTEMI) History of stroke Hyperlipidemia Hypothyroid Intermittent claudication Lumbar radiculopathy, chronic Middle cerebral artery aneurysm ([facility]HS-HCC) Non-ST elevation (NSTEMI) myocardial infarction (HCC) PAD (peripheral artery disease) Other chronic pain Paroxysmal atrial fibrillation (HCC) Thoracic aortic aneurysm without rupture Type 1 diabetes mellitus with hyperglycemia (HCC) Type 1 diabetes mellitus with hypoglycemia and without coma ([facility]) 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 Social History Tobacco Use Smoking status: Former Types: Cigarettes Start date: 2022 Smokeless tobacco: Never Substance Use Topics Alcohol use: Never Comment: caffeine: 2-3 cups per day Drug use: Never Allergies Allergen Reactions Penicillins Hives Synopsis [facility] 09/16/2024 13:31 08/26/2024 00:00 08/02/2024 00:00 Antidiabetic medications Dextrose (Diabetic Use) 16 g PRN PO 16 g PRN PO 16 g PRN PO Insulin Glargine 10 units am and 5 units pm (100 UNIT/ML SOPN) -Discontinued (Dose adjustm) Insulin Glargine 11 units am and 6 units pm (100 UNIT/ML SOPN)-Discontinued 11 units am and 6 units pm (100 UNIT/ML SOPN) Insulin Glargine 12 units am and 9 units pm (100 UNIT/ML SOPN) 12 units am and 9 units pm (100 UNIT/ML SOPN) Insulin Lispro 5 units breakfast, 5 units lunch, 8 units dinner plus correction 1:100 > 150 mg/dl (max daily 50 units) (100 UNIT/ML SOPN) -Discontinued (Dose adjustm) Insulin Lispro 3 units breakfast, 6 units lunch, 10 units dinner plus correction 1:100 > 150 mg/dl (max daily 50 units) (100 UNIT/ML SOPN)-Discontinued (Dose adjustm) 3 units breakfast, 6 units lunch, 10 units dinner plus correction 1:100 > 150 mg/dl (max daily 50 units) (100 UNIT/ML SOPN) Insulin Lispro 4 units breakfast, 8 units lunch, 12 units dinner plus correction 1:75 > 150 mg/dl (max daily 50 units) (100 UNIT/ML SOPN) 4 units breakfast, 8 units lunch, 12 units dinner plus correction 1:75 > 150 mg/dl (max daily 50 units) (100 UNIT/ML SOPN) Labs [facility] HEMOGLOBIN A1C/HEMOGLOBIN.TOTAL:MFR:PT:BLD: QN: 8.9 Outpatient prescription Medication marked as long-term The ASCVD Risk score (Arturo ENRIQUEZ, et al., 2019) failed to calculate for the following reasons: Risk score cannot be calculated because patient has a medical history suggesting prior/existing ASCVD REVIEW OF SYMPTOMS: Review of Systems Constitutional: Negative for appetite change, fatigue and unexpected weight change. Eyes: Negative for visual disturbance. Respiratory: Negative for cough, shortness of breath and wheezing. Cardiovascular: Negative for chest pain, palpitations and leg swelling. Neurological: Negative for numbness. Endocrine: Negative for polydipsia, polyphagia and polyuria. OBJECTIVE: 09/16/2024 1:15 PM 07/01/2024 9:45 AM 06/10/2024 1:40 PM Vitals BMI 27.46 kg/m2 26.95 kg/m2 27.29 kg/m2 Systolic 116 126 126 Diastolic 72 82 76 Heart Rate 82 78 82 Temp 98 F 98.7 F Resp 18 Height (in) 5' 4 5' 4 5' 4 Weight (lb) 160 157 159 Visit Report Report Report Report Physical Exam Constitutional: General: She is not in acute distress. Appearance: Normal appearance. Cardiovascular: Rate and Rhythm: Normal rate and regular rhythm. Heart sounds: No murmur heard. No friction rub. No gallop. Pulmonary: Breath sounds: Normal breath sounds. No wheezing, rhonchi or rales. Musculoskeletal: General: No swelling. Neurological: Mental Status: She is alert. 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 Lucila Tineo is making improvements and encouraged on this. , Will stay on current medications. , The patient is wearing their cgm on a daily basis and making decisions in regards to adjusting insulin daily as well for at least the last 60 days , Instructed on the importance of taking insulin before eating. If it has been more than 30-45 min since eating they should not give the meal dose but should just give a correction insulin dose. , Instructions given today include: Insulin instructions and Dietary education. Bg are much better with dietary changes and changes in her insulin. Occasionally has big spikes but most of the time she is in good control. Gave her a sample shaina 3 reader to see if this helps with her connection issues she was having. Relevant Orders POCT glycosylated hemoglobin (Hb A1C) docked device (Completed) Follow up in about 3 months (around 12/17/2024) for Recheck. Patient's Medications New Prescriptions No medications on file Previous Medications ACETAMINOPHEN (TYLENOL) 325 MG TABLET Take 2 tablets by mouth every 6 (six) hours if needed for mild pain AMLODIPINE (NORVASC) 5 MG TABLET Take 1 tablet (5 mg) by mouth in the morning. ANTI-DIARRHEAL 2 MG TABLET Take 1 tablet by mouth every 6 (six) hours if needed for diarrhea ASPIRIN LOW DOSE 81 MG EC TABLET ATORVASTATIN (LIPITOR) 40 MG TABLET Take 1 tablet (40 mg) by mouth Daily CONTINUOUS GLUCOSE VICE PRESIDENT OF NEWS (FREESTYLE SHAINA 3 READER) DEVICE 1 Device See administration instructions CONTINUOUS GLUCOSE SENSOR (FREESTYLE SHAINA 3 PLUS SENSOR) MISC 1 each See administration instructions D3-1000 25 MCG (1000 UT) CAPSULE Daily GLUCOSE 4 G CHEWABLE TABLET Chew 4 tablets (16 g) if needed for low blood sugar INSULIN GLARGINE (LANTUS SOLOSTAR) 100 UNIT/ML PEN 12 units am and 9 units pm INSULIN LISPRO (HUMALOG KWIKPEN) 100 UNIT/ML INJECTION 4 units breakfast, 8 units lunch, 12 units dinner plus correction 1:75 > 150 mg/dl (max daily 50 units) INSULIN PEN NEEDLE (BD AUTOSHIELD DUO) 30G X 5 MM MISC Use as instructed 5 times a day LEVOTHYROXINE (SYNTHROID) 125 MCG TABLET Take 1 tablet (125 mcg) by mouth Daily Take on an empty stomach ONDANSETRON ODT (ZOFRAN-ODT) 4 MG DISINTEGRATING TABLET Take 4 mg by mouth every 8 (eight) hours if needed for nausea or vomiting OYSTER SHELL CALCIUM 500 MG TABLET Take 1 tablet by mouth in the morning and 1 tablet before bedtime. POTASSIUM CHLORIDE CR (KLOR-CON M20) 20 MEQ ER TABLET Take 2 tablets (40 mEq) by mouth Daily PREGABALIN (LYRICA) 25 MG CAPSULE Take 1 capsule (25 mg) by mouth in the morning and 1 capsule (25 mg) before bedtime. RIVAROXABAN (XARELTO) 20 MG TABLET Take 1 tablet (20 mg) by mouth in the evening. Take with meals Take with food. ROPINIROLE (REQUIP) 0.5 MG TABLET Take 1 tablet (0.5 mg) by mouth at bedtime SENNA-DOCUSATE SODIUM (SENOKOT-S) 8.6-50 MG TABLET Take 1 tablet by mouth 2 (two) times a day as needed for constipation TRAMADOL (ULTRAM) 50 MG TABLET Take 50 mg by mouth every 6 (six) hours if needed for severe pain VENLAFAXINE XR (EFFEXOR XR) 37.5 MG 24 HR CAPSULE Take 1 capsule (37.5 mg) by mouth in the morning. Take with meals. Modified Medications No medications on file Discontinued Medications No medications on file I have reviewed and reconciled the history and medication list with the patient today. documented in this encounter [facility] 08-26-2024 Telephone encounter Note Refills sent. [facility] 08-26-2024 Miscellaneous Notes Refills sent. Hi, my name is Sandra, I am calling from [facility]. Assisted living calling on [facility]. Date of is 1950. She needs a new prescription for her kevin, 25 mg. She takes 1 capsule 2 times a day and she is the [facility]. If you have any questions, you can Give me a call at [phone]. Thank you, [email or web address]. documented in this encounter [facility] 08-26-2024 Telephone encounter Note Hi, my name is Sandra, I am calling from [facility]. Assisted living calling on [email or web address]. Date of is 1950. She needs a new prescription for her kevin, 25 mg. She takes 1 capsule 2 times a day and she is the [facility]. If you have any questions, you can Give me a call at [phone]. Thank you, jakob. [facility] 08-17-2024 Telephone encounter Note Spoke with pt's daughter and rescheduled appointment (from 09/09 per provider). Also per daughter pt is in assisted living and no longer has cell phone. I'm gong to delete this from chart. Daughter said to make her primary contact. [facility] 08-17-2024 Miscellaneous Notes Spoke with pt's daughter and rescheduled appointment (from 09/09 per provider). Also per daughter pt is in assisted living and no longer has cell phone. I'm gong to delete this from chart. Daughter said to make her primary contact. documented in this encounter [facility] 07-29-2024 Telephone encounter Note Approving, but needs appt for additional refills. [facility] 07-29-2024 Miscellaneous Notes Approving, but needs appt for additional refills. documented in this encounter [facility] 07-01-2024 History of Present illness Narrative Images from the original note were not included. Lucila Tineo is a 74 y.o. female presents with chief complaint of Pain HPI: HPI Presents to the office for 3 month follow. She was stared on Lyrica by a provided in [place] to help with the nerve pain in her legs. She feels it does help and would like to continue it. She needs refills sent to the pharmacy. She would like to discuss urinary frequency, she wakes up a 3-4 times a night to void. She limits her oral intake of fluids in the evening but hasn't noticed any difference. SUBJECTIVE: MEDICATIONS: Current Outpatient Medications Medication Instructions acetaminophen (Tylenol) 325 MG tablet 2 tablets, Every 6 hours PRN amLODIPine (NORVASC) 5 mg, Daily RT Anti-Diarrheal 2 MG tablet 1 tablet, Every 6 hours PRN Aspirin Low Dose 81 MG EC tablet atorvastatin (Lipitor) 40 MG tablet Every 24 hours Continuous Glucose Assistant Professor Of Drama (FreeStyle Shaina 3 [place]) device 1 Device, Does not apply, See admin instructions Continuous Glucose Sensor (FreeStyle Shaina 3 Plus Sensor) misc 1 each, Does not apply, See admin instructions D3-1000 25 MCG (1000 UT) capsule Daily glucose 16 g, Oral, As needed insulin glargine (Lantus SoloStar) 100 UNIT/ML pen 10 units am and 5 units pm insulin lispro (HumaLOG KWIKPEN) 100 UNIT/ML injection 5 units breakfast, 5 units lunch, 8 units dinner plus correction 1:100 > 150 mg/dl (max daily 50 units) insulin pen needle (BD AutoShield Duo) 30G x 5 mm misc Use as instructed 5 times a day levothyroxine (Synthroid) 150 MCG tablet Daily before breakfast ondansetron ODT (ZOFRAN-ODT) 4 mg, Every 8 hours PRN Oyster Shell Calcium 500 MG tablet 1 tablet, 2 times daily potassium chloride CR (Klor-Con M20) 20 MEQ ER tablet 40 mEq, Daily pregabalin (LYRICA) 25 mg, Oral, 2 times daily rivaroxaban (XARELTO) 20 mg, Oral, Daily with evening meal, Take with food. rOPINIRole (REQUIP) 0.5 mg, Nightly senna-docusate sodium (Senokot-S) 8.6-50 MG tablet 1 tablet, 2 times daily PRN traMADol (ULTRAM) 50 mg, Every 6 hours PRN venlafaxine XR (EFFEXOR XR) 37.5 mg, Oral, Daily with breakfast I have reviewed and reconciled the history and medication list with the patient today. REVIEW OF SYMPTOMS: Review of Systems OBJECTIVE: Visit Vitals BP 126/82 Pulse 78 Resp 18 Ht 5' 4 Wt 157 lb SpO2 98% BMI 26.95 kg/m Smoking Status Former BSA 1.79 m Physical Exam Vitals reviewed. Constitutional: Appearance: Normal appearance. HENT: Head: Normocephalic and atraumatic. Mouth/Throat: Mouth: Mucous membranes are moist. Eyes: Pupils: Pupils are equal, round, and reactive to light. Cardiovascular: Rate and Rhythm: Normal rate and regular rhythm. Pulses: Normal pulses. Heart sounds: Normal heart sounds. Pulmonary: Effort: Pulmonary effort is normal. Breath sounds: Normal breath sounds. Musculoskeletal: Cervical back: Normal range of motion and neck supple. Right lower leg: No edema. Left lower leg: No edema. Skin: General: Skin is warm and dry. Capillary Refill: Capillary refill takes less than 2 seconds. Findings: No rash. Neurological: General: No focal deficit present. Mental Status: She is alert and oriented to person, place, and time. Recent Results (from the past hour) POCT Urinalysis dipstick Collection Time: 07/01/24 10:57 AM Result Value Ref Range Color, UA Yellow Clarity, UA Clear Glucose, UA Negative Negative - 2000(110) ++++ mg/dL Bilirubin, UA Negative Negative - 4(70) +++ mg/dL Ketones, UA Negative Negative - 160(16) ++++ mg/dL Spec Grav, UA 1.010 1 - 1.03 Blood, UA Negative Negative - 50 Moncho/mcL pH, UA 7.0 5 - 9 Protein, UA Trace Negative - 2000(20) ++++ mg/dL Urobilinogen, UA 0.2 0.2 - 12 mg/dL Leukocytes, UA Trace Negative - 500+++ Cinthia/mcL Nitrite, UA Positive Negative - Positive ASSESSMENT AND PLAN: Assessment/Plan Diagnoses and all orders for this visit: Type 1 diabetes mellitus with other circulatory complications - Comprehensive metabolic panel; Future - Microalbumin / creatinine, urine ratio; Future -managed by Dr. Luna Mixed hyperlipidemia ([facility]/HCC) - Lipid panel; Future - atorvastatin (Lipitor) 40 MG tablet; Take 1 tablet (40 mg) by mouth Daily -on a statin History of stroke Acquired hypothyroidism (CMS/HCC) - TSH W/REFLEX TO FT4; Future - levothyroxine (Synthroid) 150 MCG tablet; Take 1 tablet (150 mcg) by mouth Daily Take on an empty stomach -on synthroid Urinary frequency - Urine culture (clean catch); Future - POCT Urinalysis dipstick - nitrofurantoin, macrocrystal-monohydrate, (Macrobid) 100 MG capsule; Take 1 capsule (100 mg) by mouth in the morning and 1 capsule (100 mg) before bedtime. Do all this for 5 days. -initiate macrobid Lumbar radiculopathy, chronic Essential hypertension (CMS/HCC) - amLODIPine (Norvasc) 5 MG tablet; Take 1 tablet (5 mg) by mouth in the morning. -Discussed current management plan. Goal BP less then 130/80. Discussed heart healthy diet, increase fruits and vegetables, limit salt intake. Encouraged increase physical exercise, try to be as active as possible at least 150 mins per week. Importance of weight management with a goal BMI less then 27 discussed. Discussed complications of uncontrolled blood pressure. Patient instructed to monitor BP's 1-2 times a week, keep a log, and bring to next visit. Barriers to care and medication compliance discussed. Patient voices understanding of meds. Major depressive disorder, remission status unspecified, unspecified whether recurrent (CMS/HCC) - venlafaxine XR (Effexor XR) 37.5 MG 24 hr capsule; Take 1 capsule (37.5 mg) by mouth in the morning. Take with meals. -stable with medications Paroxysmal atrial fibrillation (CMS/HCC) - rivaroxaban (Xarelto) 20 MG tablet; Take 1 tablet (20 mg) by mouth in the evening. Take with meals Take with food. -on xarelto, not on a beta shivani, rate has been ok, she is followed by cardiology Degeneration of lumbar intervertebral disc - pregabalin (Lyrica) 25 MG capsule; Take 1 capsule (25 mg) by mouth in the morning and 1 capsule (25 mg) before bedtime. -pain managed with lyrica RLS (restless legs syndrome) - rOPINIRole (Requip) 0.5 MG tablet; Take 1 tablet (0.5 mg) by mouth at bedtime Hypokalemia - potassium chloride CR (Klor-Con M20) 20 MEQ ER tablet; Take 2 tablets (40 mEq) by mouth Daily documented in this encounter [facility] 06-10-2024 History of Present illness Narrative Associated Problem(s): Type 1 diabetes mellitus with other circulatory complications During the appointment today all pertinent labs, [...] any problems or questions. Lucila Tineo is making improvements and encouraged on this. , The patient is wearing their cgm on a daily basis and making decisions in regards to adjusting insulin daily as well for at least the last 60 days , Discussed dietary changes at length. Encouraged [...] dose. , Instructions given today include: Hypoglycemia management and Insulin instructions. She needs to get protein in for breakfast to prevent early PP spike followed by hypoglycemia. Will decrease lantus as well as insulin for breakfast/lunch to help prevent low bg. Images from the original note were not included. Lucila Tineo is a 74 y.o. female presents with chief complaint of Diabetes HPI: Diabetes Mellitus Follow-up: Lucila Tineo is here for follow-up evaluation of diabetes mellitus. The initial diagnosis of diabetes was made in 2008 Diabetes complications: cardiovascular disease and cerebrovascular disease Hx diabetes medications not tolerated: metformin- diarrhea She has been checking her blood glucose with a Solutionarystyle Shaina 3 CGM-READER- on a daily basis. Bg are spiking after breakfast but then will drop around 10-11 am significantly. Admits to eating cereal and a bananna for breakfast. Last A1c: 9.2 (03/11/24) Last eye exam: 01/12/2024 Current concerns include: BG levels: improving overall Diet: meals are provided for her. Trying to work on limiting carbs and sugars Drinks: unsweetened ice tea, diet pop Exercise: none Hypoglycemia: couple times a week overnight 3 am SUBJECTIVE: PROBLEM LIST SOCIAL ALLERGIES: Patient Active Problem List Diagnosis Cerebrovascular accident (CVA) ([facility]/HCC) Left homonymous hemianopsia Age-related nuclear cataract of both eyes Dry eyes Arthritis Atherosclerotic heart disease of [place] coronary artery without angina pectoris ([facility]/HCC) Essential hypertension ([facility]/HCC) Bilateral carotid artery stenosis Cigarette nicotine dependence without complication COPD (chronic obstructive pulmonary disease) ([facility]/HCC) Degeneration of lumbar intervertebral disc Descending aortic aneurysm ([facility]/HCC) Type 1 diabetes mellitus with other circulatory complications History of non-ST elevation myocardial infarction (NSTEMI) ([facility]/HCC) History of stroke Hyperlipidemia ([facility]/HCC) Hypothyroid ([facility]/HCC) Intermittent claudication ([facility]/HCC) Lumbar radiculopathy, chronic Middle cerebral artery aneurysm Non-ST elevation (NSTEMI) myocardial infarction ([facility]/HCC) PAD (peripheral artery disease) ([facility]/HCC) Other chronic pain Paroxysmal atrial fibrillation ([facility]/HCC) Thoracic aortic aneurysm without rupture ([facility]/HCC) Type 1 diabetes mellitus with hyperglycemia (HCC) ([facility]/HCC) Type 1 diabetes mellitus with hypoglycemia and without coma ([facility]/HCC) 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 Social History Tobacco Use Smoking status: Former Types: Cigarettes Start date: 2022 Smokeless tobacco: Never Substance Use Topics Alcohol use: Never Comment: caffeine: 2-3 cups per day Drug use: Never Allergies Allergen Reactions Penicillins Hives Synopsis [facility] 06/10/2024 04/15/2024 00:00 Antidiabetic medications Dextrose (Diabetic Use) 16 g PRN PO 16 g PRN PO Insulin Glargine 12 units am and 7 units pm (100 UNIT/ML SOPN)-Discontinued (Dose adjustm) 12 units am and 7 units pm (100 UNIT/ML SOPN) Insulin Glargine 10 units am and 5 units pm (100 UNIT/ML SOPN) Insulin Lispro 7 units breakfast, 7 units lunch, 8 units dinner plus correction 1:100 > 150 mg/dl (max daily 50 units) (100 UNIT/ML SOPN)-Discontinued (Dose adjustm) 7 units breakfast, 7 units lunch, 8 units dinner plus correction 1:100 > 150 mg/dl (max daily 50 units) (100 UNIT/ML SOPN) Insulin Lispro 5 units breakfast, 5 units lunch, 8 units dinner plus correction 1:100 > 150 mg/dl (max daily 50 units) (100 UNIT/ML SOPN) Labs [facility] HEMOGLOBIN A1C/HEMOGLOBIN.TOTAL:MFR:PT:BLD: QN: 8.4 Outpatient prescription Medication marked as long-term The ASCVD Risk score (Arturo DK, et al., 2019) failed to calculate for the following reasons: Risk score cannot be calculated because patient has a medical history suggesting prior/existing ASCVD REVIEW OF SYMPTOMS: Review of Systems Constitutional: Positive for fatigue. Negative for appetite change and unexpected weight change. Eyes: Negative for visual disturbance. Respiratory: Negative for cough, shortness of breath and wheezing. Cardiovascular: Negative for chest pain, palpitations and leg swelling. Neurological: Negative for numbness. Endocrine: Negative for polydipsia, polyphagia and polyuria. OBJECTIVE: 06/10/2024 1:40 PM 03/11/2024 10:27 AM 12/08/2023 3:02 PM Vitals BMI 27.29 kg/m2 25.4 kg/m2 24.55 kg/m2 Systolic 126 124 Diastolic 76 72 Heart Rate 82 93 Temp 98.7 F 98.9 F Height (in) 5' 4 5' 4 5' 4 Weight (lb) 159 148 143 Visit Report Report Report Report Physical Exam Constitutional: General: She is not in acute distress. Appearance: Normal appearance. Cardiovascular: Rate and Rhythm: Normal rate and regular rhythm. Heart sounds: No murmur heard. No friction rub. No gallop. Pulmonary: Breath sounds: Normal breath sounds. No wheezing, rhonchi or rales. Musculoskeletal: General: No swelling. Neurological: Mental Status: She is alert. ASSESSMENT AND PLAN: Problem List Items Addressed This Visit Type 1 diabetes mellitus with other circulatory complications During the appointment today all pertinent labs, [...] any problems or questions. Lucila Tineo is making improvements and encouraged on this. , The patient is wearing their cgm on a daily basis and making decisions in regards to adjusting insulin daily as well for at least the last 60 days , Discussed dietary changes at length. Encouraged [...] dose. , Instructions given today include: Hypoglycemia management and Insulin instructions. She needs to get protein in for breakfast to prevent early PP spike followed by hypoglycemia. Will decrease lantus as well as insulin for breakfast/lunch to help prevent low bg. Relevant Orders POCT glycosylated hemoglobin (Hb A1C) docked device (Completed) Type 1 diabetes mellitus with hypoglycemia and without coma ([facility]) - Primary Follow up in about 3 months (around 09/09/2024) for Recheck. Patient's Medications New Prescriptions No medications on file Previous Medications ACETAMINOPHEN (TYLENOL) 325 MG TABLET Take 2 tablets by mouth every 6 (six) hours if needed for mild pain AMLODIPINE (NORVASC) 5 MG TABLET Take 5 mg by mouth in the morning. ANTI-DIARRHEAL 2 MG TABLET Take 1 tablet by mouth every 6 (six) hours if needed for diarrhea ASPIRIN LOW DOSE 81 MG EC TABLET ATORVASTATIN (LIPITOR) 40 MG TABLET 1 (one) time each day at the same time. CONTINUOUS GLUCOSE VICE PRESIDENT OF NEWS (FREESTYLE SHAINA 3 READER) DEVICE 1 Device See administration instructions CONTINUOUS GLUCOSE SENSOR (FREESTYLE SHAINA 3 PLUS SENSOR) MISC 1 each See administration instructions D3-1000 25 MCG (1000 UT) CAPSULE Daily GLUCOSE 4 G CHEWABLE TABLET Chew 4 tablets (16 g) if needed for low blood sugar INSULIN PEN NEEDLE (BD AUTOSHIELD DUO) 30G X 5 MM MISC Use as instructed 5 times a day LEVOTHYROXINE (SYNTHROID) 150 MCG TABLET Take by mouth Daily before meals ONDANSETRON ODT (ZOFRAN-ODT) 4 MG DISINTEGRATING TABLET Take 4 mg by mouth every 8 (eight) hours if needed for nausea or vomiting OYSTER SHELL CALCIUM 500 MG TABLET Take 1 tablet by mouth in the morning and 1 tablet before bedtime. POTASSIUM CHLORIDE CR (KLOR-CON M20) 20 MEQ ER TABLET Take 40 mEq by mouth Daily PREGABALIN [...] MG TABLET Take 1 tablet by mouth 2 (two) times a day as needed for constipation TRAMADOL (ULTRAM) 50 MG TABLET Take 50 mg by mouth every 6 (six) hours if needed for severe pain VENLAFAXINE XR (EFFEXOR XR) 37.5 MG 24 HR CAPSULE Take 1 capsule (37.5 mg) by mouth in the morning. Take with meals. Modified Medications Modified Medication Previous Medication INSULIN GLARGINE (LANTUS SOLOSTAR) 100 UNIT/ML PEN insulin glargine (Lantus SoloStar) 100 UNIT/ML pen 10 units am and 5 units pm 12 units am and 7 units pm INSULIN LISPRO (HUMALOG KWIKPEN) 100 UNIT/ML INJECTION insulin lispro (HumaLOG KWIKPEN) 100 UNIT/ML injection 5 units breakfast, 5 units lunch, 8 units dinner plus correction 1:100 > 150 mg/dl (max daily 50 units) 7 units breakfast, 7 units lunch, 8 units dinner plus correction 1:100 > 150 mg/dl (max daily 50 units) Discontinued Medications No medications on file I have reviewed and reconciled the history and medication list with the patient today. documented in this encounter [facility] 04-21-2024 Telephone encounter Note Approving, but needs appt for additional refills. [facility] 04-21-2024 Miscellaneous Notes Approving, but needs appt for additional refills. Jimena mejia is calling asking for refills sent to [facility]kh documented in this encounter [facility] 04-21-2024 Telephone encounter Note Jimena mejia is calling asking for refills sent to [facility]kh [facility] 04-06-2024 Telephone encounter Note LMOM TO CALL OFFICE TO SCHEDULE AN APPT. [facility] 04-06-2024 Miscellaneous Notes LMOM TO CALL OFFICE TO SCHEDULE AN APPT. Approving, but needs appt for additional refills. documented in this encounter [facility] 03-21-2024 Telephone encounter Note Approving, but needs appt for additional refills. [facility] 03-11-2024 History of Present illness Narrative Associated Problem(s): [...] very concerned for diabetes related complications. , The patient is wearing their cgm on a daily basis and making decisions in regards to adjusting insulin daily as well for at least the last 60 days , Instructed on the importance of taking insulin before eating. If it has been more than 30-45 min since eating they should not give the meal dose but should just give a correction insulin dose. , Instructions given today include: Hypoglycemia management and Insulin instructions. The pt is going to start giving her own insulin for her meals. She showed me in the office that she can dial it up and give the injection correctly. This way she can make sure she gets the insulin in the right time frame when she is eating. Will increase insulin at breakfast and lunch. I am also ok with her increasing/decreasing insulin by 1-2 units for her meals depending on the food that she is eating. Images from the original note were not included. Lucila Tineo is a 74 y.o. female presents with chief complaint of Diabetes HPI: Diabetes Mellitus Follow-up: Lucila Tineo is here for follow-up evaluation of diabetes mellitus. The initial diagnosis of diabetes was made in 2008 Diabetes complications: cardiovascular disease and cerebrovascular disease Previously tried medications include: metformin- diarrhea She has been checking her blood glucose with a Solutionarystyle Shaina 3 CGM-READER- on a daily basis. Bg are fluctuating frequently throughout the day without much of a pattern. Bg the last couple of days are better but running higher after breakfast and lunch. Last A1c: 8.7 on 11/17/2023 Last eye exam: 01/12/2024 Current concerns include: Last office visit was on 12/04/2023 Bg levels: fluctuating. She live is [facility]. Meal and insulin times are inconsistent Asking if glucose tablets can be ordered for her to keep on her nightstand. Diet: meals are provided for her. Trying to work on limiting carbs and sugars Drinks: unsweetened ice tea, diet pop Exercise: walking Hypoglycemia: at least once a week before a meal. Nursing staff was giving her insulin an hour before she eats SUBJECTIVE: PROBLEM LIST SOCIAL ALLERGIES: Patient Active Problem List Diagnosis Cerebrovascular accident (CVA) ([facility]) Left homonymous hemianopsia Age-related nuclear cataract of both eyes Dry eyes Arthritis Atherosclerotic heart disease of [place] coronary artery without angina pectoris ([facility]) Essential hypertension ([facility]) Bilateral carotid artery stenosis Cigarette nicotine dependence without complication COPD (chronic obstructive pulmonary disease) ([facility]) Degeneration of lumbar intervertebral disc Descending aortic aneurysm ([facility]) Type 1 diabetes mellitus with other circulatory complications ([facility]) History of non-ST elevation myocardial infarction (NSTEMI) ([facility]) History of stroke Hyperlipidemia ([facility]/HCC) Hypothyroid ([facility]/HCC) Intermittent claudication ([facility]) Lumbar radiculopathy, chronic Middle cerebral artery aneurysm Non-ST elevation (NSTEMI) myocardial infarction ([facility]) PAD (peripheral artery disease) ([facility]) Other chronic pain Paroxysmal atrial fibrillation ([facility] Thoracic aortic aneurysm without rupture ([facility]) Type 1 diabetes mellitus with hyperglycemia (HCC) ([facility]) Type 1 diabetes mellitus with hypoglycemia and without coma ([facility]) 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 Social History Tobacco Use Smoking status: Former Types: Cigarettes Start date: 2022 Smokeless tobacco: Never Substance Use Topics Alcohol use: Never Comment: caffeine: 2-3 cups per day Drug use: Never Allergies Allergen Reactions Penicillins Hives Synopsis [facility] 03/11/2024 01/12/2024 13:28 01/06/2024 00:00 Antidiabetic medications Insulin Glargine-yfgn (100 UNIT/ML SOPN)-Discontinued (Therapy comp) (100 UNIT/ML SOPN) No sig Insulin Glargine Injection subcutaneous 15 in the am and 10 units at night (100 UNIT/ML SOLN) -Discontinued (Dose adjustm) Insulin Glargine (100 UNIT/ML SOPN)-Discontinued (100 UNIT/ML SOPN) No sig Insulin Glargine Injection subcutaneous 12 in the am and 7 units at night (100 UNIT/ML SOLN)-Discontinued Injection subcutaneous 12 in the am and 7 units at night (100 UNIT/ML SOLN) Injection subcutaneous 12 in the am and 7 units at night (100 UNIT/ML SOLN) Insulin Glargine Inject under the skin at bedtime 12 units am and 7 units pm (100 UNIT/ML SOPN) -Discontinued (Dose adjustm) Insulin Glargine 12 units am and 7 units pm (100 UNIT/ML SOPN) Insulin Lispro Injection subcutaneous 6 units breakfast/lunch, 10 units dinner plus correction 1:75 > 150 mg/dl (max daily 50 units) (100 unit/ml SOLN) -Discontinued (Dose adjustm) Insulin Lispro Injection subcutaneous 6 units breakfast/lunch, 8 units dinner plus correction 1:100 > 150 mg/dl (max daily 50 units) (100 unit/ml SOLN)-Discontinued Injection subcutaneous 6 units breakfast/lunch, 8 units dinner plus correction 1:100 > 150 mg/dl (max daily 50 units) (100 unit/ml SOLN) Injection subcutaneous 6 units breakfast/lunch, 8 units dinner plus correction 1:100 > 150 mg/dl (max daily 50 units) (100 unit/ml SOLN) Insulin Lispro (100 UNIT/ML SOPN)-Discontinued (100 UNIT/ML SOPN) No sig Insulin Lispro Inject under the skin 7 units breakfast, 7 units lunch, 8 units dinner plus correction 1:100 > 150 mg/dl (max daily 50 units) (100 UNIT/ML SOPN) -Discontinued (Dose adjustm) Insulin Lispro 7 units breakfast, 7 units lunch, 8 units dinner plus correction 1:100 > 150 mg/dl (max daily 50 units) (100 UNIT/ML SOPN) Labs MHPT A1C 9.2 Outpatient prescription Medication marked as long-term Patient-reported The ASCVD Risk score (Arturo ENRIQUEZ, et al., 2019) failed to calculate for the following reasons: Risk score cannot be calculated because patient has a medical history suggesting prior/existing ASCVD REVIEW OF SYMPTOMS: Review of Systems Constitutional: Negative for appetite change, fatigue and unexpected weight change. Eyes: Negative for visual disturbance. Respiratory: Negative for cough, shortness of breath and wheezing. Cardiovascular: Negative for chest pain, palpitations and leg swelling. Neurological: Negative for numbness. Endocrine: Negative for polydipsia, polyphagia and polyuria. OBJECTIVE: 03/11/2024 10:27 AM 12/08/2023 3:02 PM 12/04/2023 10:54 AM Vitals BMI 25.4 kg/m2 24.55 kg/m2 24.55 kg/m2 Systolic 124 136 Diastolic 72 80 Heart Rate 93 85 Temp 98.9 F 98.7 F Height (in) 5' 4 5' 4 5' 4 Weight (lb) 148 143 143 Visit Report Report Report Report Physical Exam Constitutional: General: She is not in acute distress. Appearance: Normal appearance. Cardiovascular: Rate and Rhythm: Normal rate and regular rhythm. Heart sounds: No murmur heard. No friction rub. No gallop. Pulmonary: [...] very concerned for diabetes related complications. , The patient is wearing their cgm on a daily basis and making decisions in regards to adjusting insulin daily as well for at least the last 60 days , Instructed on the importance of taking insulin before eating. If it has been more than 30-45 min since eating they should not give the meal dose but should just give a correction insulin dose. , Instructions given today include: Hypoglycemia management and Insulin instructions. The pt is going to start giving her own insulin for her meals. She showed me in the office that she can dial it up and give the injection correctly. This way she can make sure she gets the insulin in the right time frame when she is eating. Will increase insulin at breakfast and lunch. I am also ok with her increasing/decreasing insulin by 1-2 units for her meals depending on the food that she is eating. Relevant Orders POCT glycosylated hemoglobin (Hb A1C) docked device (Completed) Type 1 diabetes mellitus with hyperglycemia (HCC) (CMS/HCC) - Primary Type 1 diabetes mellitus with hypoglycemia and without coma (CMS/HCC) Follow up in about 3 months (around 06/09/2024) for Recheck. Patient's Medications New Prescriptions No medications on file Previous Medications ACETAMINOPHEN (TYLENOL) 325 MG TABLET Take 2 tablets by mouth every 6 (six) hours if needed for mild pain AMLODIPINE (NORVASC) 5 MG TABLET Take 5 mg by mouth in the morning. ANTI-DIARRHEAL 2 MG TABLET Take 1 tablet by mouth every 6 (six) hours if needed for diarrhea ASPIRIN LOW DOSE 81 MG EC TABLET ATORVASTATIN (LIPITOR) 40 MG TABLET 1 (one) time each day at the same time. CONTINUOUS GLUCOSE VICE PRESIDENT OF NEWS (FREESTYLE SHAINA 3 READER) DEVICE 1 Device See administration instructions CONTINUOUS GLUCOSE SENSOR (FREESTYLE SHAINA 3 PLUS SENSOR) MISC 1 each See administration instructions D3-1000 25 MCG (1000 UT) CAPSULE Daily LEVOTHYROXINE (SYNTHROID) 150 MCG TABLET Take by mouth Daily before meals ONDANSETRON ODT (ZOFRAN-ODT) 4 MG DISINTEGRATING TABLET Take 4 mg by mouth every 8 (eight) hours if needed for nausea or vomiting OYSTER SHELL CALCIUM 500 MG TABLET Take 1 tablet by mouth in the morning and 1 tablet before bedtime. POTASSIUM CHLORIDE CR (KLOR-CON M20) 20 MEQ ER TABLET Take 40 mEq by mouth Daily PREGABALIN [...] MG TABLET Take 1 tablet by mouth 2 (two) times a day as needed for constipation TRAMADOL (ULTRAM) 50 MG TABLET Take 50 mg by mouth every 6 (six) hours if needed for severe pain VENLAFAXINE XR (EFFEXOR XR) 37.5 MG 24 HR CAPSULE Take 1 capsule (37.5 mg) by mouth in the morning. Take with meals. Modified Medications Modified Medication Previous Medication INSULIN GLARGINE (LANTUS SOLOSTAR) 100 UNIT/ML PEN insulin glargine (Lantus SoloStar) 100 UNIT/ML pen 12 units am and 7 units pm Inject under the skin at bedtime 12 units am and 7 units pm INSULIN LISPRO (HUMALOG KWIKPEN) 100 UNIT/ML INJECTION insulin lispro (HumaLOG KWIKPEN) 100 UNIT/ML injection 7 units breakfast, 7 units lunch, 8 units dinner plus correction 1:100 > 150 mg/dl (max daily 50 units) Inject under the skin 7 units breakfast, 7 units lunch, 8 units dinner plus correction 1:100 > 150 mg/dl (max daily 50 units) Discontinued Medications ASPIRIN 81 MG CHEWABLE TABLET Chew Daily CONTINUOUS GLUCOSE VICE PRESIDENT OF NEWS (FREESTYLE SHAINA 2 READER) DEVICE 1 each See administration instructions CONTINUOUS GLUCOSE SENSOR (FREESTYLE SHAINA 2 SENSOR) MISC Wear subcutaneous daily every 14 days FLUCONAZOLE (DIFLUCAN) 150 MG TABLET INSULIN GLARGINE (LANTUS) 100 UNIT/ML INJECTION Injection subcutaneous 12 in the am and 7 units at night INSULIN GLARGINE-YFGN (SEMGLEE-YFGN) 100 UNIT/ML PEN INSULIN LISPRO (HUMALOG) 100 UNIT/ML INJECTION Injection subcutaneous 6 units breakfast/lunch, 8 units dinner plus correction 1:100 > 150 mg/dl (max daily 50 units) INSULIN LISPRO (HUMALOG) 100 UNIT/ML INJECTION INSULIN SYRINGE 31G X 5/16 0.3 ML MISC Inject 1 each under the skin in the morning and 1 each in the evening and 1 each before bedtime. LANTUS SOLOSTAR 100 UNIT/ML PEN LIDOCAINE PAIN RELIEF 4 % PATCH MELOXICAM (MOBIC) 7.5 MG TABLET NITROFURANTOIN, MACROCRYSTAL-MONOHYDRATE, (MACROBID) 100 MG CAPSULE ONDANSETRON (ZOFRAN) 4 MG TABLET Take 4 mg by mouth every 8 (eight) hours if needed POTASSIUM CHLORIDE ER (MICRO-K) 10 MEQ ER CAPSULE Take 40 mEq by mouth Daily SENNA-TIME 8.6 MG TABLET I have reviewed and reconciled the history and medication list with the patient today. documented in this encounter [facility] 01-12-2024 History of Present illness Narrative Images [...] day at the same time. Continuous Glucose Assistant Professor Of Drama (FreeStyle Shaina 2 [place]) device 1 each See administration instructions 1 each 0 Continuous Glucose Assistant Professor Of Drama (FreeStyle Shaina 3 [place]) device 1 Device See administration instructions 1 [...] 10 mL 3 Insulin Syringe 31G X 16 0.3 ML misc Inject 1 each under [...] Hypertension (CMS/HCC) Hypothyroidism (CMS/HCC) Left knee pain custodial (current) use of insulin (CMS/HCC) Neck mass PAD (peripheral artery disease) (CMS/HCC) Personal history of other malignant neoplasm of skin Right ankle pain Shingles Shoulder pain Skin cyst Stroke (CMS/HCC) 09/2022 Tobacco dependence Type 2 diabetes mellitus without complications (CMS/HCC) Venous insufficiency of leg Allergies Allergen Reactions [...] @ 1:30 PM Additional Tests Keratometry K1 Troy K2 Troy Right 40.75 093 43.75 003 Left 40.25 [...] Normal Normal Refraction Wearing Rx Sphere Cylinder Troy Add Right +0.25 -3.50 095 +2.25 Left +0.50 -3.25 092 +2.25 Manifest Refraction (Auto) Sphere Cylinder [place] Right +1.75 -5.00 089 Left +2.50 -5.00 087 Final Rx Sphere Cylinder [place] Dist [place] Right +1.00 -5.00 090 20/50 [...] different lens options were explained including the [id number] fees for any upgrades. Intraocular lens (IOL) [...] deferred that decision. documented in this encounter [facility] 01-08-2024 Telephone encounter Note Destiny from [facility] asked for office notes regarding need for Power Wheelchair . ty [facility] 01-08-2024 Miscellaneous Notes Destiny from [facility] asked for office notes regarding need for Power Wheelchair . ty documented in this encounter [facility] 12-15-2023 Telephone encounter Note Refills sent. [facility] 12-15-2023 Miscellaneous Notes Refills sent. Needs to capsules please Rosa at [facility] [phone] Would like a callback about the rx I called the assisted living to confirm the pharmacy and they have to call back, so I'm not sure if the [facility] is correct or not. documented in this encounter [facility] 12-15-2023 Telephone encounter Note Needs to capsules please [facility] 12-15-2023 Telephone encounter Note Rosa at [facility] [phone] Would like a callback about the rx I called the assisted living to confirm the pharmacy and they have to call back, so I'm not sure if the [facility] is correct or not. [facility] 12-10-2023 Telephone encounter Note Please have them change her meal time insulin to 6 units breakfast and lunch and 10 units dinner plus corrections. thanks [facility] 12-10-2023 Miscellaneous Notes Please have them change her meal time insulin to 6 units breakfast and lunch and 10 units dinner plus corrections. thanks documented in this encounter [facility] 12-08-2023 History of Present illness Narrative Images [...] History: Diagnosis Date AAA (abdominal aortic aneurysm) ([facility]/HCC) Arthritis Basal cell carcinoma Bilateral biceps tendonitis Carpal tunnel syndrome Cataract Coronary artery disease (CMS/HCC) COVID-19 Diabetes mellitus (CMS/HCC) Disease of thyroid gland (CMS/HCC) DM (diabetes mellitus) (CMS/HCC) Epidermal cyst of neck Hypercholesteremia (CMS/HCC) Hyperlipidemia (CMS/HCC) Hypertension (CMS/HCC) Hypothyroidism (CMS/HCC) Left knee pain intermediate accountant (current) use of insulin (CMS/HCC) Neck mass [...] same time., Disp: , Rfl: Continuous Glucose Assistant Professor Of Drama (FreeStyle Shaina 3 [place]) device, 1 Device See administration instructions, Disp: [...] each, Does not apply, Daily, Mily Andrade, ANDRESSA Allergies Penicillins Past Surgical History Past Surgical [...] Weakness due to acute cerebrovascular accident (CVA) ([facility]) I63.9 R53.1 6. Pain in both feet [...] utilizing a nail Nipper and electric bur rubber roller grinder without incident. Patient noted relief of symptoms [...] Sonu Bruner DPM documented in this encounter [facility] 12-04-2023 Telephone encounter Note Pt's daughter called requesting the shaina system be sent to the [facility] in [place]. This is who the assisted living facility works with. [facility] 12-04-2023 Miscellaneous Notes Pt's daughter called requesting the shaina system be sent to the [facility] in [place]. This is who the assisted living facility works with. documented in this encounter [facility] 12-04-2023 History of Present illness Narrative Associated Problem(s): Type 1 diabetes mellitus with other circulatory complications ([facility]) During the appointment today all pertinent labs, [...] from the original note were not included. Luclia Tineo is a 73 y.o. female presents [...] the past month. She is living at [facility] since November 14. Was in [facility] and had a stroke making it difficult for her to care for herself. She is getting meals at [facility] and they are giving her all of her medications. Is in the assisted living part of the facility. Jardiance was started couple months ago. She has had couple UTI and yeast infections. Has swelling in her left leg. PCP did an xray- soft tissue swelling. Advised to see physician president. Diet: meals are provided for her. Drinks: [...] Active Problem List Diagnosis Cerebrovascular accident (CVA) ([facility]) Left homonymous hemianopsia Age-related nuclear cataract of both eyes Dry eyes Arthritis Atherosclerotic heart disease of [place] coronary artery without angina pectoris ([facility]) Essential hypertension ([facility]) Bilateral carotid artery stenosis Cigarette nicotine dependence without complication COPD (chronic obstructive pulmonary disease) ([facility]) Degeneration of lumbar intervertebral disc Descending aortic aneurysm ([facility]) Type 1 diabetes mellitus with other circulatory complications ([facility]) History of non-ST elevation myocardial infarction (NSTEMI) ([facility]) History of stroke Hyperlipidemia ([facility]) Hypothyroid ([facility]) Intermittent claudication ([facility]) Lumbar radiculopathy, chronic Middle cerebral artery aneurysm Non-ST elevation (NSTEMI) myocardial infarction ([facility]) PAD (peripheral artery disease) ([facility]) Other chronic pain Paroxysmal atrial fibrillation ([facility]) Thoracic aortic aneurysm without rupture ([facility]) Type 1 diabetes mellitus with hyperglycemia (HCC) ([facility]) Type 1 diabetes mellitus with hypoglycemia and without coma ([facility]) Social History Tobacco Use Smoking status: Former [...] diabetes mellitus with hypoglycemia and without coma ([facility]) Follow up in about 3 months (around [...] day at the same time. CONTINUOUS GLUCOSE VICE PRESIDENT OF NEWS (FREESTYLE SHAINA 2 READER) DEVICE 1 each [...] the patient today. documented in this encounter [facility] 12-02-2023 Miscellaneous Notes Lucila Guidry from [facility] called and left a vm at 12:20 pm She said that she spoke to you yesterday and was wondering if you saw the fax that she sent over. I do see that Rupinder put a fax in the pt's media section yesterday, it says Attention Brea, but I dont see a telephone encounter to you.. so not sure if you did see it? [phone] These were both sent already Lyrica rx needs to go to SLID 2 sensors to go to [facility] in [place] documented in this encounter [facility] 12-02-2023 Telephone encounter Note Lucila Guidry from [facility] called and left a vm at 12:20 pm She said that she spoke to you yesterday and was wondering if you saw the fax that she sent over. I do see that Rupinder put a fax in the pt's media section yesterday, it says Attention Brea, but I dont see a telephone encounter to you.. so not sure if you did see it? [phone] [facility] 12-02-2023 History of Present illness Narrative Prescription sent documented in this encounter [facility] 12-02-2023 Telephone encounter Note Returned call to office, notified that this office did not start the eliquis. It was a historical medication when she first came to the office. Verbalized understanding [facility] 12-02-2023 Miscellaneous Notes Returned call to office, [...] Tine[birth year], 1950). Yes Number to return call [phone] Reason for Call: Medication Question: Chyna from Dr. Foote's office would like to know if patient can change to xarelto, because her insurance will not cover the eliquis. They are asking if you originally started patient on eliquis, this is why the question is raised. Please call back Chyna at the above number. Thank you calling [facility]. You will receive a return call within 48 hours ( or 2 business days if close to the weekend). If you feel that this is an urgent issue and needs immediate attention, it is recommended that you contact your primary care provider office or proceed to your nearest Urgent Care Center of Emergency Room ED for evaluation/treatment. documented in this encounter [facility] 12-02-2023 Telephone encounter Note CV PHONE Name of caller : Dr. Foote PCP Relationship to patient : Caregiver If not self Will need patient permission to release results or disclose health information with called documented in fyi. Patient identified by Name and Date of . ( Lucila Tineo, 1950). Yes Number to return call [phone] Reason for Call: Medication Question: Chyna from Dr. Foote's office would like to know if patient can change to xarelto, because her insurance will not cover the eliquis. They are asking if you originally started patient on eliquis, this is why the question is raised. Please call back Chyna at the above number. Thank you calling [facility]. You will receive a return call within 48 hours ( or 2 business days if close to the weekend). If you feel that this is an urgent issue and needs immediate attention, it is recommended that you contact your primary care provider office or proceed to your nearest Urgent Care Center of Emergency Room ED for evaluation/treatment. [facility] Work Phone: 11-25-2023 Telephone encounter Note These were both sent already [facility] 11-24-2023 Telephone encounter Note Lyrica rx needs to go to SLID 2 sensors to go to [facility] in [place] [facility] 11-24-2023 Telephone encounter Note Sandra from [facility] is requesting a callback, she has questions about this request from last Thursday [phone] no extension [facility] 11-24-2023 Miscellaneous Notes Sandra from [facility] is requesting a callback, she has questions about this request from last Thursday [phone] no extension Cancel Freestyle Shaina script to mail order pharmacy and fax order to [facility] in [place] See other note Loren from [facility] called with a BS of 545 on pt. Said she gave pt 10u of lispro and asked for next recommendation. documented in this encounter [facility] 11-20-2023 Telephone encounter Note Cancel Freestyle Shaina script to mail order pharmacy and fax order to [facility] in [place] [facility] 11-19-2023 History of Present illness Narrative Orders placed documented in this encounter [facility] 11-19-2023 Telephone encounter Note Sandra with [facility] Mechanical Equipment Sales Engineer [facility] called needing on prescription order Lebra 2 sensor and the [place]. At appt pt was put on routine Insulin Sandra needed to know if you was discontinuing the sliding scale. Please call Sandra at [phone]. Thank you [facility] 11-19-2023 Miscellaneous Notes Sandra with [facility] [employer] Equipment Sales Engineer Living called needing on prescription order Lebra 2 sensor and the [place]. At appt pt was put on routine Insulin Sandra needed to know if you was discontinuing the sliding scale. Please call Sandra at [phone]. Thank you Sent message through teams to Dr. Dorantes Tommy from [facility]. She stated that the patient has been having high blood sugars. Reading as follow: 3:30 545 10 units of lispro was given Drop it down to 334 at 4:40 pm 7:30 pm 103 She stated that she is just giving reading to the provider. 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 ([facility]) Neck mass PAD (peripheral artery disease) ([facility]) Personal history of other malignant neoplasm of skin Right ankle pain Shingles Shoulder pain Skin cyst Stroke ([facility]/HCC) 09/2022 Tobacco dependence Type 2 diabetes mellitus without complications ([facility]) Venous insufficiency of leg Social History Tobacco [...] fibrillation (CMS/HCC) -stable documented in this encounter [facility] 11-17-2023 Miscellaneous Notes See other note documented in this encounter [facility] 11-17-2023 Progress note Formatting of t his note might be different from the original. See other note [facility] 11-17-2023 Telephone encounter Note Sandra from [facility] calling to let you know what pt blood sugars were today, before breakfast 88 and then around 10:40AM 257. She will send a copy with her today for her appt at 3pm. [facility] 11-17-2023 Miscellaneous Notes [facility] calling to let you know what pt blood sugars were today, before breakfast 88 and then around 10:40AM 257. She will send a copy with her today for her appt at 3pm. documented in this encounter [facility] 11-16-2023 Telephone encounter Note Sent message through teams to Dr. Dorantes [facility] 11-16-2023 Telephone encounter Note LorenCHRISSY from [facility]. She stated that the patient has been having high blood sugars. Reading as follow: 3:30 545 10 units of lispro was given Drop it down to 334 at 4:40 pm 7:30 pm 103 She stated that she is just giving reading to the provider. Phone: [phone] direct line [facility] 11-16-2023 Telephone encounter Note See other note [facility] 11-16-2023 Telephone encounter Note Loren from [facility] called with a BS of 545 on pt. Said she gave pt 10u of lispro and asked for next recommendation. [facility] 07-16-2023 Telephone encounter Note Rec'd lab report from [facility] imported into [employer]. [facility] Work Phone: 07-16-2023 Miscellaneous Notes Rec'd lab report from [facility] imported into [employer]. documented in this encounter [facility] 07-14-2023 Telephone encounter Note Images from the original note were not included. Rec'd patient PT/INR results imported into [employer]. [facility] Work Phone: 07-14-2023 Miscellaneous Notes Images from the original note were not included. Rec'd patient PT/INR results imported into [employer]. documented in this encounter [facility] 07-07-2023 History of Present illness Narrative [facility] Established Outpatient Visit Lucila Tineo [facility] [id number] Date of Service: 07/07/2023 Primary Care Provider: Mily Andrade, [place]ARR[place] [address] [place] [address] FOLLOW UP VISIT Chief complaint: Follow up for incidental unruptured brain aneurysm History of present illness: Ms. Veloz is a 73-year-old female with vascular risk factors, who presents for follow-up evaluation of an incidentally discovered unruptured brain aneurysm. The patient was residing in [place], and was found down on October 29, [...] stroke work-up. The patient then returned to [place], and she is still at a nursing [...] REVIEW, right posterior MCA territory and left SIDE SAWYER territory encephalomalacia representing prior stroke. Stable overall [...] plan/ continued education. 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 Imaging in 6 months versus cerebral angiogram. Requested daughter to either call this office or send a My Chart message with preference documented in this encounter [facility] 12-16-2022 History of Present illness Narrative [facility] Virtual Visit Lucila Tineo CC#: [id number] Date of Service: 12/16/2022 Primary Care Provider: Mily Andrade, LARRIMAN [address] [place] [address] The patient was referred by Osie Roe for opinion regarding brain aneurysm. I will provide a written report of my findings to the referring through letter, e communication, or epic. OUTPATIENT CONSULTATION Chief complaint: Incidental unruptured brain aneurysm History of present illness: Ms. Veloz is a 72-year-old female with vascular risk factors, who presents for evaluation of an incidentally discovered unruptured brain aneurysm. The patient was residing in [place], and was found down on October 29, [...] stroke work-up. The patient then returned to [place], and she is still at a nursing [...] Disease w/o Stroke Event: Unruptured Aneurysm Modified [place] Score: Score: 4 NIH Stroke Scale: LOC: [...] Diaz MD December 16, 2022 CC OSEI ROE [address] [place] [address] Mily Andrade [address] [place] [address] documented in this encounter [facility] 12-08-2022 Miscellaneous Notes Images from the original note were not included. OSH imaging/records received from [facility]: December 08, 2022 -12.02.22 Dr. Roe Progress Notes scanned to chart. -Medical Hx & Imaging Reports available in Care Everywhere. Received confirmation email from [facility] that imaging hs been uploaded--per dropping off disc to imaging library to upload as I wasn't able to + kept getting error per below. Images from the original note were not included. OSH imaging/records received from [facility]: December 04, 2022 -12.02.22 Dr. Roe Progress Notes scanned to chart. PENDING: -2022 Imaging -Medical Hx & Imaging Reports Walked discs over to imaging library + gave to Adry to upload MAGDALENE. Successfully sent CARRI & [employer] overnight label via [employer]~ Tracking#[id number] December 05, 2022 10:30 AM 07 [employer]Ex Priority Overnight $14.14 From: Theresa mabry Last change on 12/04/2022 12:16:46 pm Sent on 12/04/2022 12:16:33 pm Completed ENDOVASCULAR INTAKE Patient name: Lucila Tineo Confirm Diagnosis/RFV (Reason for Visit): Aneurysm Is this a self-referral? no, who is the referring provider : Osei Roe [email or web address] in [place], [place]/His direct office number if any questions: [phone] Is this a direct referral? yes neurosurgeon Have you been recommended for surgery or procedure? Yes. coiling Are you seeking a second opinion? Yes. Do you have a MRI/MRA/CT/Ultrasound for this diagnosis? Yes. Type of imaging CT's, name/address of facility where completed [facility]. [Only has reports in folder, no images] [...] if any questions. documented in this encounter [facility] Evaluation note Diagnosis Unruptured cerebral aneurysm- Primary Cerebral aneurysm, nonruptured Ischemic stroke (HCC) Hypertension, unspecified type Hyperlipidemia, unspecified hyperlipidemia type Smoking Tobacco use disorder [facility] Diagnosis Unruptured cerebral aneurysm- Primary Cerebral aneurysm, nonruptured Hypertension, unspecified type Hyperlipidemia, unspecified hyperlipidemia type Atrial fibrillation, unspecified type (HCC) Ischemic stroke (HCC) [facility] Diagnosis Nonruptured cerebral aneurysm Cerebral aneurysm, nonruptured [facility] Diagnosis Unruptured cerebral aneurysm- Primary Cerebral aneurysm, nonruptured Encounter for monitoring antiplatelet therapy Encounter for therapeutic drug monitoring [facility] Diagnosis Burning with urination- Primary Dysuria [...] of left foot documented in this encounter [facility]* Diagnosis Paroxysmal atrial fibrillation (CMS/HCC)- Primary Atrial fibrillation documented in this encounter [facility] note* Diagnosis Nonruptured cerebral aneurysm- Primary Cerebral aneurysm, nonruptured [facility] Diagnosis 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 Type 1 diabetes mellitus with hyperglycemia (HCC) (CMS/HCC) Type 1 diabetes mellitus with hypoglycemia and without coma (CMS/HCC) documented in this encounter [facility] HealthcareEvaluation note* Diagnosis Lymph node enlargement- Primary Enlargement of lymph nodes Foot swelling Swelling of limb Onychodystrophy Other specified disease of nail Onychomycosis Dermatophytosis of nail Weakness due to acute cerebrovascular accident (CVA) (CMS/HCC) Pain in both feet documented in this encounter [facility] HealthcareEvaluation note* Diagnosis 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) documented in this encounter [facility] HealthcareEvaluation note* Diagnosis 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 Type 1 diabetes mellitus with hyperglycemia (HCC) (CMS/HCC) Type 1 diabetes mellitus with hypoglycemia and without coma (CMS/HCC) Major depressive disorder, remission status unspecified, unspecified whether recurrent (CMS/HCC)- Primary documented in this encounter [facility] HealthcareEvaluation note* Diagnosis 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 Type 1 diabetes mellitus with hyperglycemia (HCC) (CMS/HCC) Type 1 diabetes mellitus with hypoglycemia and without coma (CMS/HCC) Degeneration of lumbar intervertebral disc Degeneration of lumbar or lumbosacral intervertebral disc documented in this encounter [facility] HealthcareEvaluation note* Diagnosis 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 Type 1 diabetes mellitus with hyperglycemia (HCC) (CMS/HCC) Type 1 diabetes mellitus with hypoglycemia and without coma (CMS/HCC) Age-related nuclear cataract of both eyes- Primary 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 documented in this encounter [facility] HealthcareEvaluation note* Diagnosis Foot swelling- Primary Swelling of limb documented in this encounter [facility]Evaluation note* Diagnosis 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 (CMS/HCC)- Primary documented in this encounter [facility] HealthcareEvaluation note* Diagnosis 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 Type 1 diabetes mellitus with hyperglycemia (HCC) (CMS/HCC) Type 1 diabetes mellitus with hypoglycemia and without coma (CMS/HCC) Type 1 diabetes mellitus with hyperglycemia (HCC) (CMS/HCC)- Primary 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) Type 1 diabetes mellitus with hypoglycemia and without coma (CMS/HCC) documented in this encounter [facility] HealthcareEvaluation note* Diagnosis 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 Type 1 diabetes mellitus with hyperglycemia (HCC) (CMS/HCC) Type 1 diabetes mellitus with hypoglycemia and without coma (CMS/HCC) Type 1 diabetes mellitus with hyperglycemia (HCC) (CMS/HCC)- Primary 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) Type 1 diabetes mellitus with hypoglycemia and without coma (CMS/HCC) Degeneration of lumbar intervertebral disc Degeneration of lumbar or lumbosacral intervertebral disc documented in this encounter [facility] HealthcareEvaluation note* Diagnosis 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 Type 1 diabetes mellitus with hyperglycemia (HCC) (CMS/HCC) Type 1 diabetes mellitus with hypoglycemia and without coma (CMS/HCC) Type 1 diabetes mellitus with hyperglycemia (HCC) (CMS/HCC)- Primary 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) Type 1 diabetes mellitus with hypoglycemia and without coma (CMS/HCC) Degeneration of lumbar intervertebral disc Degeneration of lumbar or lumbosacral intervertebral disc documented in this encounter [facility]Evaluation note* Diagnosis Type 1 diabetes mellitus with other circulatory complications- Primary Type 1 diabetes mellitus with hyperglycemia (HCC) (CMS/HCC) Type 1 diabetes mellitus with hypoglycemia and without coma (CMS/HCC) Type 1 diabetes mellitus with hyperglycemia (HCC) (CMS/HCC)- Primary Type 1 diabetes mellitus with other circulatory complications Type 1 diabetes mellitus with hypoglycemia and without coma (CMS/HCC) Type 1 diabetes mellitus with hypoglycemia and without coma (CMS/HCC)- Primary Type 1 diabetes mellitus with other circulatory complications documented in this encounter [facility] HealthcareEvaluation note* Diagnosis Type 1 diabetes mellitus with other circulatory complications- Primary Type 1 diabetes mellitus with hyperglycemia (HCC) (CMS/HCC) Type 1 diabetes mellitus with hypoglycemia and without coma (CMS/HCC) Type 1 diabetes mellitus with hyperglycemia (HCC) (CMS/HCC)- Primary Type 1 diabetes mellitus with other circulatory complications Type 1 diabetes mellitus with hypoglycemia and without coma (CMS/HCC) Type 1 diabetes mellitus with hypoglycemia and without coma (CMS/HCC)- Primary 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 Degeneration of lumbar or lumbosacral intervertebral disc documented in this encounter [facility] HealthcareEvaluation note* Diagnosis Type 1 diabetes mellitus with other circulatory complications- Primary Type 1 diabetes mellitus with hyperglycemia (HCC) (CMS/HCC) Type 1 diabetes mellitus with hypoglycemia and without coma (CMS/HCC) Type 1 diabetes mellitus with hyperglycemia (HCC) ([facility]/HCC)- Primary Type 1 diabetes mellitus with other circulatory complications Type 1 diabetes mellitus with hypoglycemia and without coma (CMS/HCC) Type 1 diabetes mellitus with hypoglycemia and without coma (CMS/HCC)- Primary 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- Primary Mixed hyperlipidemia (CMS/HCC) Mixed hyperlipidemia History of stroke Transient ischemic attack (TIA), and cerebral infarction without residual deficits Acquired hypothyroidism (CMS/HCC) Unspecified hypothyroidism Urinary frequency Lumbar radiculopathy, chronic Essential hypertension (CMS/HCC) Unspecified essential hypertension Major depressive disorder, remission status unspecified, unspecified whether recurrent (CMS/HCC) Paroxysmal atrial fibrillation ([facility]/HCC) Atrial fibrillation Degeneration of lumbar intervertebral disc Degeneration of lumbar or lumbosacral intervertebral disc RLS (restless legs syndrome) Restless legs syndrome (RLS) Hypokalemia Hypopotassemia documented in this encounter [facility] HealthcareEvaluation note* Diagnosis Type 1 diabetes mellitus with other circulatory complications- Primary Type 1 diabetes mellitus with hyperglycemia (HCC) (CMS/HCC) Type 1 diabetes mellitus with hypoglycemia and without coma (CMS/HCC) Type 1 diabetes mellitus with hyperglycemia (HCC) ([facility]/HCC)- Primary Type 1 diabetes mellitus with other circulatory complications Type 1 diabetes mellitus with hypoglycemia and without coma (CMS/HCC) Type 1 diabetes mellitus with hypoglycemia and without coma (CMS/HCC)- Primary 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 Degeneration of lumbar or lumbosacral intervertebral disc documented in this encounter [facility] HealthcareEvaluation note* Diagnosis Type 1 diabetes mellitus with other circulatory complications (HCC)- Primary Type 1 diabetes mellitus with hyperglycemia (HCC) Type 1 diabetes mellitus with hypoglycemia and without coma (HCC) Type 1 diabetes mellitus with hyperglycemia (HCC)- Primary Type 1 diabetes mellitus with other circulatory complications (HCC) Type 1 diabetes mellitus with hypoglycemia and without coma (HCC) Type 1 diabetes mellitus with hypoglycemia and without coma (HCC)- Primary Type 1 diabetes mellitus with other circulatory complications (HCC) Degeneration of lumbar intervertebral disc Degeneration of lumbar or lumbosacral intervertebral disc documented in this encounter [facility] HealthcareEvaluation note* Diagnosis Type 1 diabetes mellitus with other circulatory complications (HCC)- Primary Type 1 diabetes mellitus with hyperglycemia (HCC) Type 1 diabetes mellitus with hypoglycemia and without coma (HCC) Type 1 diabetes mellitus with hyperglycemia (HCC)- Primary Type 1 diabetes mellitus with other circulatory complications (HCC) Type 1 diabetes mellitus with hypoglycemia and without coma (HCC) Type 1 diabetes mellitus with hypoglycemia and without coma (HCC)- Primary Type 1 diabetes mellitus with other circulatory complications (HCC) Type 1 diabetes mellitus with other circulatory complications (HCC) documented in this encounter [facility] HealthcareEvaluation note* Diagnosis Type 1 diabetes mellitus with other circulatory complications (HCC)- Primary Type 1 diabetes mellitus with hyperglycemia (HCC) Type 1 diabetes mellitus with hypoglycemia and without coma (HCC) Type 1 diabetes mellitus with hyperglycemia (HCC)- Primary Type 1 diabetes mellitus with other circulatory complications (HCC) Type 1 diabetes mellitus with hypoglycemia and without coma (HCC) Type 1 diabetes mellitus with hypoglycemia and without coma (HCC)- Primary Type 1 diabetes mellitus with other circulatory complications (HCC) Type 1 diabetes mellitus with other circulatory complications (HCC) Leg edema, left- Primary Leg edema, left documented in this encounter [facility] HealthcareEvaluation note* Diagnosis Type 1 diabetes mellitus with other circulatory complications (HCC)- Primary Type 1 diabetes mellitus with hyperglycemia (HCC) Type 1 diabetes mellitus with hypoglycemia and without coma (HCC) Type 1 diabetes mellitus with hyperglycemia (HCC)- Primary Type 1 diabetes mellitus with other circulatory complications (HCC) Type 1 diabetes mellitus with hypoglycemia and without coma (HCC) Type 1 diabetes mellitus with hypoglycemia and without coma (HCC)- Primary Type 1 diabetes mellitus with other circulatory complications (HCC) Type 1 diabetes mellitus with other circulatory complications (HCC) Degeneration of lumbar intervertebral disc Degeneration of lumbar or lumbosacral intervertebral disc documented in this encounter [facility]* Diagnosis Type 1 diabetes mellitus with other circulatory complications (HCC)- Primary Type 1 diabetes mellitus with hyperglycemia (HCC) Type 1 diabetes mellitus with hypoglycemia and without coma (HCC) Type 1 diabetes mellitus with hyperglycemia (HCC)- Primary Type 1 diabetes mellitus with other circulatory complications (HCC) Type 1 diabetes mellitus with hypoglycemia and without coma (HCC) Type 1 diabetes mellitus with hypoglycemia and without coma (HCC)- Primary Type 1 diabetes mellitus with other circulatory complications (HCC) Type 1 diabetes mellitus with other circulatory complications (HCC) Degeneration of lumbar intervertebral disc Degeneration of lumbar or lumbosacral intervertebral disc documented in this encounter [facility]* Diagnosis Type 1 diabetes mellitus with other circulatory complications (HCC)- Primary Type 1 diabetes mellitus with hyperglycemia (HCC) Type 1 diabetes mellitus with hypoglycemia and without coma (HCC) Type 1 diabetes mellitus with hyperglycemia (HCC)- Primary Type 1 diabetes mellitus with other circulatory complications (HCC) Type 1 diabetes mellitus with hypoglycemia and without coma (HCC) Type 1 diabetes mellitus with hypoglycemia and without coma (HCC)- Primary 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 She denies medication side effects. -[facility] [address] DO Work Phone: Reason for referral (narrative)* Consultation (Urgent) - Authorized Specialty Diagnoses / Procedures Referred By Contac t Referred To Contact Family Medicine Diagnoses 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 (CMS/HCC) Procedures NM OFFICE/OUTPATIENT [facility] 60 MINUTES Mily Andrade NP [address] [place] [address] Chyna Luna, [address] [facility] [address] [place] [address] Referral ID Status Reason Start Date Expiration Date Visits Requested Visits Authorized [id number] Authorized Specialty Services Required 11/17/2023 05/15/2024 1 1 [facility] Consultation (Urgent) - Pending Review Specialty Diagnoses / Procedures Referred By Clemente jones Referred To Contact Podiatry Diagnoses Foot swelling Procedures NM OFFICE/OUTPATIENT [facility] 60 MINUTES Mily Andrade NP [address] [place] [address] Sonu Bruner, DPAnurad[address] [place] [address] Referral ID Status Reason Start Date Expiration Date Visits Requested Visits Authorized [id number] Pending Review Specialty Services Required 11/19/2023 05/17/2024 1 1 [facility] Summary Purpose Family History No Family History [...] Status:Active Advance Directives No Advanced Directives Records FoundNo Advanced Directives Records FoundNo Advanced Directives Records FoundNo Advanced Directives Records FoundNo Advanced Directives Records FoundNo Advanced Directives Records FoundNo Advanced Directives Records FoundNo Advanced Directives Records FoundNo Advanced Directives Records Found Chief Complaint LUCILA TINEO is being seen [...] hospitalized overnight and treated with infusion. [employer] [facility] inpatient[facility] due to minimally elevated troponin. [...] Specialty Diagnoses / Procedures Referred By Clemente ojnes Referred To Contact CT IMAGING Diagnoses Nonruptured cerebral aneurysm Procedures CTA HEAD WO/W IVCON CT ANGIOGRAPHY HEAD W/CONTRAST/NONCONTRAST Jeffery Gordon APRN.[place] [address] [place] [address] [place] [address] Referral ID Status Reason Start Date Expiration Date V isits Requested Visits Authorized [id number] Closed Auto-Generate d Referral 04/08/2023 05/07/2024 1 1 Referral ID Status Reason Start Date Expiration Date Visits Requested Visits Authorized [id number] New Request Auto-Generat ed Referral 12/04/2023 01/02/2025 1 1 Additional Source Comments INFORMATION SOURCE (unrecogn ized section and content) DATE CREATED AUTHOR 08/20/2020 [facility] DATE CREATED AUTHOR AUTHOR'S ORGANIZ ATION 03/11/2021 [facility] DATE CREATED AUTHOR AUTHOR'S ORGANIZ ATION 12/11/2021 [facility] DATE CREATED AUTHOR AUTHOR'S ORGANIZ ATION 12/11/2021 [employer] DATE CREATED AUTHOR AUTHOR'S ORGANIZ ATION 04/26/2022 [facility] dical Specialist DATE CREATED AUTHOR AUTHOR'S ORGANIZ ATION 03/08/2023 [facility] DATE CREATED AUTHOR AUTHOR'S ORGANIZ ATION 06/27/2023 [facility] DATE CREATED AUTHOR AUTHOR'S ORGANIZ ATION 10/18/2024 [facility] dical Specialists EPIC DATE CREATED AUTHOR AUTHOR'S ORGANIZ ATION 12/04/2024 [facility] Source Comments (unrecognize d section and content) In the event this informatio n is protected by the Federal Confidentiality of Alcohol and Drug Abuse Patient Records regulations: The Federal rules restrict any use of the information to criminally investigate or prosecute any alcohol or drug abuse patient.[facility] the event this information is protected by the Federal Confidentiality of Alcohol and Drug Abuse Patient Records regulations: The Federal rules restrict any use of the information to criminally investigate or prosecute any alcohol or drug abuse patient.[facility] the event this information is protected by the Federal Confidentiality of Alcohol and Drug Abuse Patient Records regulations: The Federal rules restrict any use of the information to criminally investigate or prosecute any alcohol or drug abuse patient.[facility] the event this information is protected by the Federal Confidentiality of Alcohol and Drug Abuse Patient Records regulations: The Federal rules restrict any use of the information to criminally investigate or prosecute any alcohol or drug abuse patient.[facility] the event this information is protected by the Federal Confidentiality of Alcohol and Drug Abuse Patient Records regulations: The Federal rules restrict any use of the information to criminally investigate or prosecute any alcohol or drug abuse patient.[facility] Medical CenterIn the event this information is protected by the Federal Confidentiality of Alcohol and Drug Abuse Patient Records regulations: The Federal rules restrict any use of the information to criminally investigate or prosecute any alcohol or drug abuse patient.[facility] the event this information is protected by the Federal Confidentiality of Alcohol and Drug Abuse Patient Records regulations: The Federal rules restrict any use of the information to criminally investigate or prosecute any alcohol or drug abuse patient.[facility] the event this information is protected by the Federal Confidentiality of Alcohol and Drug Abuse Patient Records regulations: The Federal rules restrict any use of the information to criminally investigate or prosecute any alcohol or drug abuse patient.[facility] Center[facility] the event this information is protected by the Federal Confidentiality of Alcohol and Drug Abuse Patient Records regulations: The Federal rules restrict any use of the information to criminally investigate or prosecute any alcohol or drug abuse patient.[facility] CenterIn the event this information is protected by the Federal Confidentiality of Alcohol and Drug Abuse Patient Records regulations: The Federal rules restrict any use of the information to criminally investigate or prosecute any alcohol or drug abuse patient.[facility] CenterIn the event this information is protected by the Federal Confidentiality of Alcohol and Drug Abuse Patient Records regulations: The Federal rules restrict any use of the information to criminally investigate or prosecute any alcohol or drug abuse patient.[facility] CenterIn the event this information is protected by the Federal Confidentiality of Alcohol and Drug Abuse Patient Records regulations: The Federal rules restrict any use of the information to criminally investigate or prosecute any alcohol or drug abuse patient.[facility] CenterIn the event this information is protected by the Federal Confidentiality of Alcohol and Drug Abuse Patient Records regulations: The Federal rules restrict any use of the information to criminally investigate or prosecute any alcohol or drug abuse patient.[facility] CenterIn the event this information is protected by the Federal Confidentiality of Alcohol and Drug Abuse Patient Records regulations: The Federal rules restrict any use of the information to criminally investigate or prosecute any alcohol or drug abuse patient.[facility] CenterIn the event this information is protected by the Federal Confidentiality of Alcohol and Drug Abuse Patient Records regulations: The Federal rules restrict any use of the information to criminally investigate or prosecute any alcohol or drug abuse patient.[facility] CenterIn the event this information is protected by the Federal Confidentiality of Alcohol and Drug Abuse Patient Records regulations: The Federal rules restrict any use of the information to criminally investigate or prosecute any alcohol or drug abuse patient.[facility] CenterIn the event this information is protected by the Federal Confidentiality of Alcohol and Drug Abuse Patient Records regulations: The Federal rules restrict any use of the information to criminally investigate or prosecute any alcohol or drug abuse patient.[facility] Reason for Visit (unrecogniz ed section and content) Reason Comments Future Appointment New Patient, [place], Any Reason Comments Unruptured Aneurysm Reason Comments Emergency Medical Technician Basic - Other Reason Comments Established Patient Established FORTINO Valdes nt Reason Comments Radiology CT Specialty Diagnoses / Procedures Referred By Clemente t Referred To Contact CT IMAGING Diagnoses Nonruptured cerebral aneurysm Procedures CTA HEAD WO/W IVCON CT ANGIOGRAPHY HEAD W/CONTRAST/NONCONTRAST Jeffery Gordon, SOLAR PROJECT ENGINEER.[place] [address] [place] [address] [place] [address] Referral ID Status Reason Start Date Expiration Date V isits Requested Visits Authorized [id number] Closed Auto-Generate d Referral 04/08/2023 05/07/2024 1 1 Reason Comments Unruptured Aneurysm Diagnostic Cerebral Angiogram Reason Comments Results PT-INR Results Reason Comments Received Outside Medical Records Rec'd l ab report from [facility] imported into [employer]. Reason Comments Medication Question Reason Comments Diabetes UTI Reason Comments Unruptured Aneurysm Reason Comments Diabetes Specialty Diagnoses / Procedures Referred By Contac t Referred To Contact Family Medicine Diagnoses 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 ([facility]) Procedures NM OFFICE/OUTPATIENT [facility] 60 MINUTES Mliy Andrade NP [address] [place] [address] Chyna Luna, DO [address] [place] [address] Referral ID Status Reason Start Date Expiration Date V isits Requested Visits Authorized [id number] Closed Specialty Services Required 11/17/2023 05/15/2024 1 1 Reason Comments Foot Problem 73 yo OP presents to day with concerns of swelling in left foot, pt relates she had xrays done. Had xrays done with [facility], no fx, just soft tissue swelling. Stroke last September 2022. PCP: Bandar [facility]AL[facility] 12/04/23, A1C: 8.7, BS: 325 Specialty Diagnoses / Procedures Referred By Clemente jones Referred To Contact Podiatry Diagnoses Foot swelling Procedures NM OFFICE/OUTPATIENT [facility] 60 MINUTES Mily Andrade NP [address] [place] [address] Sonu Bruner, DPM [address] [place] [address] Referral ID Status Reason Start Date Expiration Date V isits Requested Visits Authorized [id number] Closed Specialty Services Required 11/19/2023 05/17/2024 1 1 Reason Comments Cataract Reason Onset Date Comments Med Refill 04/06/2024 Reason Comments Pain Reason Onset Date Comments Appointment Request 08/17/2024 Reason Comments Edema Reason Onset Date Comments Med Refill 11/14/2024 Care Teams (unrecognized sec tion and content) Automotive Diagnostic Technician Relationship Specialty Start Date End Date Mily Andrade CNP [address] [place] [address] PCP - General Family Medicine 09/29/18 Osei Roe [address] [place] [address] Referring Neurology 12/04/22 Automotive Diagnostic Technician Relationship Specialty Start Date End Date Mily Andrade CNP [address] [place] [address] PCP - General Family Medicine 09/29/18 Osei Roe [address] [place] [address] Referring Neurology 12/04/22 Automotive Diagnostic Technician Relationship Specialty Start Date End Date Mily Andrade CNP [address] [facility] [place] [address] PCP - General Family Medicine 09/29/18 Osei Roe [address] [place] [address] Referring Neurology 12/04/22 Automotive Diagnostic Technician Relationship Specialty Start Date End Date Mily Andrade CNP [address] [facility] [place] [address] PCP - General Family Medicine 09/29/18 Osei Roe [address] [place] [address] Referring Neurology 12/04/22 Automotive Diagnostic Technician Relationship Specialty Start Date End Date Chyna Luna DO [address] [place] [address] PCP - Humana 03/02/20 Corrie Dorantes MD [address] [facility] [place] [address] PCP - General Family Medicine 03/26/23 Automotive Diagnostic Technician Relationship Specialty Start Date End Date Mily Andrade CNP [address] [place] [address] PCP - General Family Medicine 09/29/18 Osei Roe MD [address] [place] [address] Referring Neurology 12/04/22 Automotive Diagnostic Technician Relationship Specialty Start Date End Date Mily Andrade CNP [address] [place] [address] PCP - General Family Medicine 09/29/18 Osei Roe MD [address] [place] [address] Referring Neurology 12/04/22 Automotive Diagnostic Technician Relationship Specialty Start Date End Date Mily Andrade CNP [address] [place] [address] PCP - General Family Medicine 09/29/18 Osei Roe MD [address] [place] [address] Referring Neurology 12/04/22 Automotive Diagnostic Technician Relationship Specialty Start Date End Date Mily Andrade CNP [address] [place] [address] PCP - General Family Medicine 09/29/18 Osei Roe MD [address] [place] [address] Referring Neurology 12/04/22 Automotive Diagnostic Technician Relationship Specialty Start Date End Date Mily AndradeCHELITA [address] [place] [address] PCP - General Family Medicine 09/29/18 Osei Roe MD [address] [place] [address] Referring Neurology 12/04/22 Automotive Diagnostic Technician Relationship Specialty Start Date End Date Mily Andrade [place] [address] [place] [facility] [place] [address] PCP - General Family Medicine 09/29/18 Osei Roe MD [address] [place] [address] Referring Neurology 12/04/22 Automotive Diagnostic Technician Relationship Specialty Start Date End Date Chyna Luna DO [address] [place] [address] PCP - Humana 03/02/19 Corrie Dorantes MD [address] [place] [address] PCP - General Family Medicine 03/26/23 Automotive Diagnostic Technician Relationship Specialty Start Date End Date Chyna Luna DO [address] [place] [address] PCP - Humana 03/02/19 Corrie Dorantes MD [address] [place] [address] PCP - General Family Medicine 03/26/23 Chyna Richardson LSW [facility] 11/27/23 Automotive Diagnostic Technician Relationship Specialty Start Date End Date Mily Andrade CNP [address] [place], [place] [id number] PCP - General Family Medicine 09/29/18 Osei Roe MD [address] [place] [address] Referring Neurology 12/04/22 Automotive Diagnostic Technician Relationship Specialty Start Date End Date Chyna Luna DO [address] [place] [address] PCP - Humana 03/02/19 Corrie Dorantes MD [address] [place] [address] PCP - General Family Medicine 03/26/23 Chyna Richardson [facility] 11/27/23 Automotive Diagnostic Technician Relationship Specialty Start Date End Date Chyna Luna DO [address] [facility] [address] [place] [address] PCP - Humana 03/02/19 Corrie Dorantes MD [address] [place] [address] PCP - General Family Medicine 03/26/23 Chyna Richardson LSW [facility] 11/27/23 Automotive Diagnostic Technician Relationship Specialty Start Date End Date Chyna Luna DO [address] [place] [address] PCP - Humana 03/02/19 Corrie Dorantes MD [address] [facility] [place] [address] PCP - General Family Medicine 03/26/23 Chyna Richardson LSW [facility] 11/27/23 Automotive Diagnostic Technician Relationship Specialty Start Date End Date Mily Andrade CNP [address] [facility] [place] [address] PCP - General Family Medicine 09/29/18 Osei Roe MD [address] [place] [address] Referring Neurology 12/04/22 Automotive Diagnostic Technician Relationship Specialty Start Date End Date Chyna Luna DO [address] [place] [address] PCP - Humana 03/02/19 Corrie Dorantes MD [address] [facility] [place] [address] PCP - General Family Medicine 03/26/23 Chyna Richardson LSW [facility] 11/27/23 Automotive Diagnostic Technician Relationship Specialty Start Date End Date Chyna Luna DO [address] [facility] [address] [place] [address] PCP - Humana 03/02/19 Corrie Dorantes MD [address] [facility] [place] [address] PCP - General Family Medicine 03/26/23 Chyna Richardson LSW [facility] 11/27/23 Automotive Diagnostic Technician Relationship Specialty Start Date End Date hCyna Luna, DO [address] [place] [address] PCP - Humana 03/02/19 Corrie Dorantes MD [address] [place] [address] PCP - General Family Medicine 03/26/23 Chyna Richardson, [facility] 11/27/23 Automotive Diagnostic Technician Relationship Specialty Start Date End Date Chyna Luna, DO [address] [place] [address] PCP - Humana 03/02/19 Corrie Dorantes MD [address] [place] [facility] [place] [address] PCP - General Family Medicine 03/26/23 Chyna Richardson [facility] 11/27/23 Automotive Diagnostic Technician Relationship Specialty Start Date End Date Chyna Luna, DO [address] [place] [address] PCP - Humana 03/02/19 Corrie Dorantes MD [address] [place] [address] PCP - General Family Medicine 03/26/23 Chyna Richardson [facility] 11/27/23 Automotive Diagnostic Technician Relationship Specialty Start Date End Date Chyna Luna, DO [address] [place] [address] PCP - Humana 03/02/19 Corrie Dorantes MD [address] [place] [address] PCP - General Family Medicine 03/26/23 Chyna Richardson LSW [facility] 11/27/23 Kiah Qiu, OD [address] [place] [address] Referring Physician Optometry 01/12/24 Automotive Diagnostic Technician Relationship Specialty Start Date End Date Chyna Luna DO [address] [facility] [address] [place] [address] PCP - Humana 03/02/19 Corrie Dorantes MD [address] [place] [address] PCP - General Family Medicine 03/26/23 Chyna Richardson LSW [facility] 11/27/23 Kiah Qiu, OD [address] [place] [address] Referring Physician Optometry 01/12/24 Automotive Diagnostic Technician Relationship Specialty Start Date End Date Chyna Luna DO [address] [place] [address] PCP - Humana 03/02/19 Corrie Dorantes MD [address] [place] [address] PCP - General Family Medicine 03/26/23 Chyna Richardson LSW [facility] 11/27/23 Kiah Qiu OD [address] [place] [address] Referring Physician Optometry 01/12/24 Automotive Diagnostic Technician Relationship Specialty Start Date End Date Chyna Luna DO [address] [place] [address] PCP - Humana 03/02/19 Corrie Dorantes MD [address] [place], [place] [address] PCP - General Family Medicine 03/26/23 Automotive Diagnostic Technician Relationship Specialty Start Date End Date Chyna Luna DO [address] [place] [address] PCP - Humana 03/02/19 Corrie Doarntes MD [address] [place] [address] PCP - General Family Medicine 03/26/23 Automotive Diagnostic Technician Relationship Specialty Start Date End Date Chyna Luna DO [address] [place] [address] PCP - Humana 03/02/19 Corrie Dorantes MD [address] [place] [address] PCP - General Family Medicine 03/26/23 Automotive Diagnostic Technician Relationship Specialty Start Date End Date Chyna Luna DO [address] [place] [address] PCP - Humana 03/02/19 Corrie Dorantes MD [address] [facility] [place] [address] PCP - General Family Medicine 03/26/23 Automotive Diagnostic Technician Relationship Specialty Start Date End Date Chyna Luna DO [address] [place] [address] PCP - Humana 03/02/19 Corrie Dorantes MD [address] [place] [address] PCP - General Family Medicine 03/26/23 Automotive Diagnostic Technician Relationship Specialty Start Date End Date Chyna Luna DO [address] [facility] [address] [place] [address] PCP - Humana 03/02/19 Corrie Dorantes MD [address] [place] [address] PCP - General Family Medicine 03/26/23 Chyna Richardson LSW [facility] 11/27/23 Kiah Qiu OD [address] [place] [address] Referring Physician Optometry 01/12/24 Automotive Diagnostic Technician Relationship Specialty Start Date End Date Chyna Luna DO [address] [facility] [address] [place] [address] PCP - Humana 03/02/19 Corrie Dorantes MD [address] [place], [place] [address] PCP - General Family Medicine 03/26/23 Chyna Richardson, [employer] [facility] 11/27/23 Kiah Qiu, OD [address] [place] [address] Referring Physician Optometry 01/12/24 Automotive Diagnostic Technician Relationship Specialty Start Date End Date Chyna Luna, DO [address] [place] [address] PCP - Humana 03/02/19 Corrie Dorantes MD [address] [place], [place] [address] PCP - General Family Medicine 03/26/23 Kiah Qiu OD [address] [place] [address] Referring Physician Optometry 01/12/24 Eneida Cantrell LPN Licensed Practical Nurse Family Medicine 03/17/24 Automotive Diagnostic Technician Relationship Specialty Start Date End Date Chyna Luna, DO [address] [place] [address] PCP - Humana 03/02/19 Corrie Dorantes MD [address] [place] [address] PCP - General Family Medicine 03/26/23 Kiah Qiu, OD [address] [place] [address] Referring Physician Optometry 01/12/24 Eneida Cantrell LPN Licensed Practical Nurse Family Medicine 03/17/24 Automotive Diagnostic Technician Relationship Specialty Start Date End Date Corrie Dorantes MD [address] [place] [address] PCP - General Family Medicine 03/26/23 Kiah Qiu OD [address] [facility] [place] [address] Referring Physician Optometry 01/12/24 Eneida Cantrell LPN Licensed Practical Nurse Family Medicine 03/17/24 Automotive Diagnostic Technician Relationship Specialty Start Date End Date Corrie Dorantes MD [address] [place] [facility] [place] [address] PCP - General Family Medicine 03/26/23 Kiah Qiu OD [address] [facility] [place] [address] Referring Physician Optometry 01/12/24 Eneida Cantrell LPN Licensed Practical Nurse Family Medicine 03/17/24 Automotive Diagnostic Technician Relationship Specialty Start Date End Date Corrie Dorantes MD [address] [place] [address] PCP - General Family Medicine 03/26/23 Kiah Qiu OD [address] [facility] [place] [address] Referring Physician Optometry 01/12/24 Eneida Cantrell LPN Licensed Practical Nurse Family Medicine 03/17/24 Automotive Diagnostic Technician Relationship Specialty Start Date End Date Corrie Dorantes MD [address] [place] [address] PCP - General Family Medicine 03/26/23 Kiah Qiu OD [address] [facility] [place] [address] Referring Physician Optometry 01/12/24 Eneida Cantrell LPN Licensed Practical Nurse Family Medicine 03/17/24 Automotive Diagnostic Technician Relationship Specialty Start Date End Date Corrie Dorantes MD [address] [place] [address] PCP - General Family Medicine 03/26/23 Kiah Qiu OD [address] [facility] [place] [address] Referring Physician Optometry 01/12/24 Eneida Cantrell LPN Licensed Practical Nurse Family Medicine 03/17/24 Automotive Diagnostic Technician Relationship Specialty Start Date End Date Corrie Dorantes MD [address] [place] [address] PCP - General Family Medicine 03/26/23 Kiah Qiu OD [address] [facility] [place] [address] Referring Physician Optometry 01/12/24 Eneida Cantrell LPN Licensed Practical Nurse Family Medicine 03/17/24 Automotive Diagnostic Technician Relationship Specialty Start Date End Date Corrie Dorantes MD [address] [place] [address] PCP - General Family Medicine 03/26/23 Kiah Qiu OD [address] [place] [facility] [place] [address] Referring Physician Optometry 01/12/24 Eneida Cantrell LPN Licensed Practical Nurse Family Medicine 03/17/24 Automotive Diagnostic Technician Relationship Specialty Start Date End Date Corrie Dorantes MD [address] [place] [address] PCP - General Family Medicine 03/26/23 Kiah Qiu OD [address] [place] [address] Referring Physician Optometry 01/12/24 Eneida Cantrell LPN Licensed Practical Nurse Family Medicine 03/17/24 Automotive Diagnostic Technician Relationship Specialty Start Date End Date Corrie Dorantes MD [address] [place] [address] PCP - General Family Medicine 03/26/23 Kiah Qiu OD [address] [facility] [place] [address] Referring Physician Optometry 01/12/24 Eneida Cantrell LPN Licensed Practical Nurse Family Medicine 03/17/24 Automotive Diagnostic Technician Relationship Specialty Start Date End Date Corrie Dorantes MD [address] [facility] [place] [address] PCP - General Family Medicine 03/26/23 Kiah Qiu OD [address] [facility] [place] [address] Referring Physician Optometry 01/12/24 Eneida Cantrell LPN Licensed Practical Nurse Family Medicine 03/17/24 Automotive Diagnostic Technician Relationship Specialty Start Date End Date Corrie Dorantes MD [address] [place] [address] PCP - General Family Medicine 03/26/23 Kiah Qiu OD [address] [place] [address] Referring Physician Optometry 01/12/24 Eneida Cantrell LPN Licensed Practical Nurse Family Medicine 03/17/24 Automotive Diagnostic Technician Relationship Specialty Start Date End Date Mily Andrade CNP [address] [place], [place] [id number] PCP - General Family Medicine 09/29/18 Osei Roe MD [address] [address] Referring Neurology 12/04/22 Automotive Diagnostic Technician Relationship Specialty Start Date End Date Corrie Dorantes MD [address] [place], [place] [address] PCP - General Family Medicine 03/26/23 Kiah Qiu OD [address] [place] [address] Referring Physician Optometry 01/12/24 Eneida Cantrell LPN Licensed Practical Nurse Family Medicine 03/17/24 FOR RECORDS PERTAINING TO PATIENTS WHO ARE [...] BE BASED ON THE PRIMARY CLINICAL RECORDS. [employer] [facility]. provides no warranty or guarantee of the accuracy or completeness of information in this document.
--- NOTE | 2024-12-08 09:23 | CT_ITS ---
The [address] [address] Patient Name: KATELYN ZAMORA MRN: [id number] date: 1950 Sex: F Assigned Patient Location: ER Current Patient Location: ER Accession/Order Number: [id number] Exam Date: 12/08/2024 10:30 Report Date: 12/08/2024 11:32 At the request of: LUANA BERGMAN DO Procedure: CT angio neck CLINICAL DATA: Dizziness/vertigo. History of CVA and brain aneurysm. CT BRAIN WITHOUT CONTRAST: COMPARISON: 09/29/2023 TECHNIQUE: Contiguous axial unenhanced images were obtained through the brain. This CT exam was performed using one or more following dose reduction techniques: Automated exposure control, adjustment of the mA and/or kV according to patient size, or use of iterative reconstruction technique. FINDINGS: There is generalized atrophy. The ventricles are similar in size and position. Mild microvascular changes are again noted. Areas of encephalomalacia are present at the right parietal and left occipital lobes and to lesser extent the left cerebellum similar to the prior and compatible with old infarcts. There are no definite developing areas of abnormal attenuation. There is no hemorrhage, mass effect or extra-axial collections. A peripherally calcified aneurysm at the left temporal lobe near the sylvian fissure is again seen measuring approximately 17 mm in size. It is unchanged. The imaged paranasal sinuses and mastoid air cells are clear. CT/CT head/brain wo con IMPRESSION: ATROPHY AND CHRONIC ISCHEMIC CHANGES. STABLE CALCIFIED LEFT MIDDLE CEREBRAL ARTERY ANEURYSM. NO ACUTE INTRACRANIAL ABNORMALITY. CTA OF THE HEAD AND NECK WITH CONTRAST COMPARISON: None Spiral images were obtained through the head neck following 100 MLO of Omnipaque 350. Sagittal and coronal MIP as well as 3-D volume rendered reconstructions of the carotid arteries and [place] were reviewed. Stenosis is evaluated using NASCET criteria. This CT exam was performed using one or more following dose reduction techniques: Automated exposure control, adjustment of the mA and/or kV according to patient size, or use of iterative reconstruction technique. There is ectasia of the ascending aorta and aneurysmal dilatation of the imaged ascending aorta with diameter 4.7 cm. There is mild atherosclerotic plaque at the arch. There is minor plaque in question of a short dissection at the proximal left subclavian artery. The right vertebral artery is patent, without focal stenosis or evidence of dissection. The left vertebral artery is not opacified and may be thrombosed. There is a small amount of plaque at the carotid bifurcations extending of the proximal internal carotid arteries. There is less than 50% associated luminal narrowing. There are mild degenerative changes at the cervical spine. The upper imaged chest shows obstructive lung disease and scarring. There is some opacification of the left vertebral artery at the C1-2 level. It is smaller in caliber than the right. The right vertebral, basilar and posterior cerebral arteries show no significant findings. There is minor carotid siphon plaque, without significant associated stenosis. The anterior and left middle cerebral arteries are patent. There appears to be occlusion of one of the M2 branches on the right with diminished perfusion in that area compared to the left. This is best seen on the reconstructed images. Given the old infarct in this area on the brain imaging, this may be chronic. There is a 17 mm rim calcified nodular structure at the left temporal lobe which is adjacent to the middle cerebral artery. The middle cerebral artery shows slight irregularity at that site. There is no internal enhancement and this is probably a thrombosed aneurysm. IMPRESSION: NONOPACIFIED EXTRACRANIAL LEFT VERTEBRAL ARTERY SUGGESTING THROMBOSIS. 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 MINOR [place]QUE , WITHOUT ADDITIONAL CRITICAL STENOSIS OR VASCULAR OCCLUSIVE DISEASE. CALCIFIED, THROMBOSED LEFT MIDDLE CEREBRAL ARTERY ANEURYSM, ALSO SEEN ON PREVIOUS BRAIN IMAGING. THORACIC AORTIC ANEURYSM. INCIDENTAL OBSTRUCTIVE LUNG DISEASE. Impression dictated by: Deborah Lagunas M.D. 12/08/2024 11:32 AM Dictation Location: [place] [address] Electronically authenticated by: [id number] Y Date: 12/08/2024 11:32
--- NOTE | 2024-12-08 09:23 | CT_ITS ---
The [address] [address] Patient Name: KATELYN ZAMORA MRN: [id number] date: 1950 Sex: F Assigned Patient Location: ER Current Patient Location: ER Accession/Order Number: [id number] Exam Date: 12/08/2024 10:30 Report Date: 12/08/2024 11:32 At the request of: LUANA BERGMAN DO Procedure: CT angio neck CLINICAL DATA: Dizziness/vertigo. History of CVA and brain aneurysm. CT BRAIN WITHOUT CONTRAST: COMPARISON: 09/29/2023 TECHNIQUE: Contiguous axial unenhanced images were obtained through the brain. This CT exam was performed using one or more following dose reduction techniques: Automated exposure control, adjustment of the mA and/or kV according to patient size, or use of iterative reconstruction technique. FINDINGS: There is generalized atrophy. The ventricles are similar in size and position. Mild microvascular changes are again noted. Areas of encephalomalacia are present at the right parietal and left occipital lobes and to lesser extent the left cerebellum similar to the prior and compatible with old infarcts. There are no definite developing areas of abnormal attenuation. There is no hemorrhage, mass effect or extra-axial collections. A peripherally calcified aneurysm at the left temporal lobe near the sylvian fissure is again seen measuring approximately 17 mm in size. It is unchanged. The imaged paranasal sinuses and mastoid air cells are clear. CT/CT angio neck IMPRESSION: ATROPHY AND CHRONIC ISCHEMIC CHANGES. STABLE CALCIFIED LEFT MIDDLE CEREBRAL ARTERY ANEURYSM. NO ACUTE INTRACRANIAL ABNORMALITY. CTA OF THE HEAD AND NECK WITH CONTRAST COMPARISON: None Spiral images were obtained through the head neck following 100 MLO of Omnipaque 350. Sagittal and coronal MIP as well as 3-D volume rendered reconstructions of the carotid arteries and [place] were reviewed. Stenosis is evaluated using NASCET criteria. This CT exam was performed using one or more following dose reduction techniques: Automated exposure control, adjustment of the mA and/or kV according to patient size, or use of iterative reconstruction technique. There is ectasia of the ascending aorta and aneurysmal dilatation of the imaged ascending aorta with diameter 4.7 cm. There is mild atherosclerotic plaque at the arch. There is minor plaque in question of a short dissection at the proximal left subclavian artery. The right vertebral artery is patent, without focal stenosis or evidence of dissection. The left vertebral artery is not opacified and may be thrombosed. There is a small amount of plaque at the carotid bifurcations extending of the proximal internal carotid arteries. There is less than 50% associated luminal narrowing. There are mild degenerative changes at the cervical spine. The upper imaged chest shows obstructive lung disease and scarring. There is some opacification of the left vertebral artery at the C1-2 level. It is smaller in caliber than the right. The right vertebral, basilar and posterior cerebral arteries show no significant findings. There is minor carotid siphon plaque, without significant associated stenosis. The anterior and left middle cerebral arteries are patent. There appears to be occlusion of one of the M2 branches on the right with diminished perfusion in that area compared to the left. This is best seen on the reconstructed images. Given the old infarct in this area on the brain imaging, this may be chronic. There is a 17 mm rim calcified nodular structure at the left temporal lobe which is adjacent to the middle cerebral artery. The middle cerebral artery shows slight irregularity at that site. There is no internal enhancement and this is probably a thrombosed aneurysm. IMPRESSION: NONOPACIFIED EXTRACRANIAL LEFT VERTEBRAL ARTERY SUGGESTING THROMBOSIS. 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 [place]OR [place] , WITHOUT ADDITIONAL CRITICAL STENOSIS OR VASCULAR OCCLUSIVE DISEASE. CALCIFIED, THROMBOSED LEFT MIDDLE CEREBRAL ARTERY ANEURYSM, ALSO SEEN ON PREVIOUS BRAIN IMAGING. THORACIC AORTIC ANEURYSM. INCIDENTAL OBSTRUCTIVE LUNG DISEASE. Impression dictated by: Deborah Lagunas M.D. 12/08/2024 11:32 AM Dictation Location: [place] [address] Electronically authenticated by: [id number] Y Date: 12/08/2024 11:32
--- NOTE | 2024-12-08 09:23 | XR_ITS ---
The [place] [id number] Patient Name: KATELYN ZAMORA MRN: [id number] date: 1950 Sex: F Assigned Patient Location: ER Current Patient Location: ER Accession/Order Number: [id number] Exam Date: 12/08/2024 10:46 Report Date: 12/08/2024 11:02 At the request of: LUANA BERGMAN DO Procedure: XR chest 1V PORTABLE AP ERECT CHEST and 40 hours CLINICAL HISTORY: dizzy COMPARISON: None The heart is borderline enlarged. The thoracic aorta is ectatic. There is no vascular congestion. Minor basilar scarring or atelectasis is seen. No consolidation is noted. There is no effusion or pneumothorax. The bony structures are osteopenic. XR/XR chest 1V IMPRESSION: BORDERLINE CARDIOMEGALY AND AORTIC ECTASIA NO ACUTE PULMONARY FINDINGS Impression dictated by: Deborah Lagunas M.D. 12/08/2024 11:02 AM Dictation Location: [place] [address] Electronically authenticated by: [id number] Y Date: 12/08/2024 11:02
--- NOTE | 2024-12-08 09:23 | CT_ITS ---
The [address] [address] Patient Name: KATELYN ZAMORA MRN: [id number] date: 1950 Sex: F Assigned Patient Location: ER Current Patient Location: ER Accession/Order Number: [id number] Exam Date: 12/08/2024 10:30 Report Date: 12/08/2024 11:32 At the request of: LUANA BERGMAN DO Procedure: CT angio neck CLINICAL DATA: Dizziness/vertigo. History of CVA and brain aneurysm. CT BRAIN WITHOUT CONTRAST: COMPARISON: 09/29/2023 TECHNIQUE: Contiguous axial unenhanced images were obtained through the brain. This CT exam was performed using one or more following dose reduction techniques: Automated exposure control, adjustment of the mA and/or kV according to patient size, or use of iterative reconstruction technique. FINDINGS: There is generalized atrophy. The ventricles are similar in size and position. Mild microvascular changes are again noted. Areas of encephalomalacia are present at the right parietal and left occipital lobes and to lesser extent the left cerebellum similar to the prior and compatible with old infarcts. There are no definite developing areas of abnormal attenuation. There is no hemorrhage, mass effect or extra-axial collections. A peripherally calcified aneurysm at the left temporal lobe near the sylvian fissure is again seen measuring approximately 17 mm in size. It is unchanged. The imaged paranasal sinuses and mastoid air cells are clear. CT/CT angio head IMPRESSION: ATROPHY AND CHRONIC ISCHEMIC CHANGES. STABLE CALCIFIED LEFT MIDDLE CEREBRAL ARTERY ANEURYSM. NO ACUTE INTRACRANIAL ABNORMALITY. CTA OF THE HEAD AND NECK WITH CONTRAST COMPARISON: None Spiral images were obtained through the head neck following 100 MLO of Omnipaque 350. Sagittal and coronal MIP as well as 3-D volume rendered reconstructions of the carotid arteries and [place] were reviewed. Stenosis is evaluated using NASCET criteria. This CT exam was performed using one or more following dose reduction techniques: Automated exposure control, adjustment of the mA and/or kV according to patient size, or use of iterative reconstruction technique. There is ectasia of the ascending aorta and aneurysmal dilatation of the imaged ascending aorta with diameter 4.7 cm. There is mild atherosclerotic plaque at the arch. There is minor plaque in question of a short dissection at the proximal left subclavian artery. The right vertebral artery is patent, without focal stenosis or evidence of dissection. The left vertebral artery is not opacified and may be thrombosed. There is a small amount of plaque at the carotid bifurcations extending of the proximal internal carotid arteries. There is less than 50% associated luminal narrowing. There are mild degenerative changes at the cervical spine. The upper imaged chest shows obstructive lung disease and scarring. There is some opacification of the left vertebral artery at the C1-2 level. It is smaller in caliber than the right. The right vertebral, basilar and posterior cerebral arteries show no significant findings. There is minor carotid siphon plaque, without significant associated stenosis. The anterior and left middle cerebral arteries are patent. There appears to be occlusion of one of the M2 branches on the right with diminished perfusion in that area compared to the left. This is best seen on the reconstructed images. Given the old infarct in this area on the brain imaging, this may be chronic. There is a 17 mm rim calcified nodular structure at the left temporal lobe which is adjacent to the middle cerebral artery. The middle cerebral artery shows slight irregularity at that site. There is no internal enhancement and this is probably a thrombosed aneurysm. IMPRESSION: NONOPACIFIED EXTRACRANIAL LEFT VERTEBRAL ARTERY SUGGESTING THROMBOSIS. 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 [place] , WITHOUT ADDITIONAL CRITICAL STENOSIS OR VASCULAR OCCLUSIVE DISEASE. CALCIFIED, THROMBOSED LEFT MIDDLE CEREBRAL ARTERY ANEURYSM, ALSO SEEN ON PREVIOUS BRAIN IMAGING. THORACIC AORTIC ANEURYSM. INCIDENTAL OBSTRUCTIVE LUNG DISEASE. Impression dictated by: Deborah Lagunas M.D. 12/08/2024 11:32 AM Dictation Location: [place] [address] Electronically authenticated by: [id number] Y Date: 12/08/2024 11:32
--- NOTE | 2024-12-08 09:23 | ECG_ITS ---
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 Measurements Intervals [place] Rate: 69 P: 37 CT: 154 QRS: 11 QRSD: 98 T: 23 QT: 424 QTc: 443 Interpretive Statements 1100 Sinus rhythm 4068 Nonspecific [place] abnormality 5211 Minimal voltage criteria for LVH, may be normal variant 9130 borderline ECG Compared to ECG 09/29/2023 08:07:56 Left ventricular hypertrophy now present Ventricular premature complex(es) no longer present Electronically Signed On 12-08-2024 9:46:37 EDT by SHREYA CASTRO M.D.
[2024-12-08 09:39] LABS: Hematocrit 36.7 % (36.0-48.0); Hemoglobin 12.1 g/dL (12.0-16.0); Immature Granulocytes Abs Auto 0.01 10^3/uL (0.00-0.03); Immature Granulocytes Pct Auto 0.1 % (0.0-0.5); Lymphocytes Absolute Auto 1.4 10^3/uL (1.2-3.8); Mean Corpuscular HGB Conc 33.0 g/dL (29.9-35.2); Mean Corpuscular Hemoglobin 28.1 pg (26.7-34.0); Mean Corpuscular Volume 85.2 fL (81.0-99.0); Platelet Count 219 10^3/uL (150-450); Red Blood Count 4.31 10^6/uL (4.20-5.40); White Blood Count 6.8 10^3/uL (4.0-11.0)
[2024-12-08 09:40] LABS: PCO2 VBG 41.0 mmHg (40.0-52.0); pH VBG 7.397 (7.330-7.430)
[2024-12-08 10:11] LABS: Alanine Aminotransferase 33 U/L (14-59); Albumin Globulin Ratio 0.9; Albumin Level 3.4 g/dL (3.4-5.0); Alkaline Phosphatase 116 U/L (46-116); Anion Gap 14.6; Aspartate Amino Transferase 25 U/L (15-37); Blood Urea Nitrogen 22.0 mg/dL (7.0-18.0); Calcium 9.4 mg/dL (8.5-10.1); Carbon Dioxide 24.8 mmol/L (21.0-32.0); Chloride 109 mmol/L (98-107); Estimated GFR (African America >60 (>=60 mL/min/1.73m^2); Estimated GFR (Non-African Ame >60 (>=60 mL/min/1.73m^2); Globulin 4.0 g/dL; Glucose 104 mg/dL (74-106); Potassium 3.4 mmol/L (3.5-5.1); Sodium 145 mmol/L (136-145); Total Protein 7.4 g/dL (6.4-8.2)
--- NOTE | 2024-12-08 11:38 | ED.GENADUL1 ---
HPI HPI - General Adult General Chief complaint: Dizziness Stated complaint: WEAKNESS Time Seen by Provider: 12/08/24 08:58 Source: patient Mode of arrival: ambulance Limitations: no limitations History of Present Illness HPI narrative: Patient is a 74-year-old female presenting to the emergency department from [facility] for concerns of dizziness. Patient states that she felt fine this morning, however she was doing her morning routine, she began feeling dizzy and lightheaded. She states she feels nauseous as well. She denies history of vertigo or any episodes like this in the past. 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 She is on Xarelto. She also has known history of intracranial aneurysms. She denies any headache, neck pain, visual changes, new weakness in extremities, or new numbness/tingling in the extremities. She denies any chest pain or shortness of breath. No fevers or chills. No abdominal pain, vomiting, or diarrhea, constipation, dysuria, urinary frequency, or hematuria. Related Data Home Medications ?Medication ?Instructions ?Recorded ?Confirmed atorvastatin 20 mg tablet (Lipitor) 40 mg PO DAILY 02/01/24 02/04/24 insulin glargine subcut DAILY 02/01/24 lisinopril 20 mg tablet 20 mg PO DAILY 02/01/24 02/01/24 rivaroxaban 10 mg tablet (Xarelto) 10 mg PO DAILY 02/01/24 02/01/24 venlafaxine 37.5 mg tablet 37.5 mg PO DAILY 02/01/24 02/01/24 calcium 500 mg tablet mg 02/04/24 cholecalciferol (vitamin D3) 25 25 mcg PO DAILY 02/04/24 02/04/24 mcg (1,000 unit) capsule (Vitamin D3) potassium chloride 10 mEq 40 meq PO DAILY 02/04/24 02/04/24 capsule,extended release pregabalin 25 mg capsule (Lyrica) 25 mg PO BID 02/04/24 02/04/24 ropinirole 0.5 mg tablet 0.5 mg PO BEDTIME 02/04/24 02/04/24 tramadol 50 mg tablet 50 mg PO Q6H PRN pain 02/04/24 02/04/24 Allergies Allergy/AdvReac Type Severity Reaction Status Date / Time Penicillins Allergy Severe Hives Verified 11/06/24 02:58 Opioid HPI Opioid Management Most Recent Opioid Data: Last Pain Scale 0 09/29/23, 08:05 Review of Systems ROS Status of ROS 10 or more systems reviewed and unremarkable except as noted in history and below [facility] Medical History (Updated 12/08/24 @ 15:18 by Abdon Martinez DO) Hypothyroid ?E03.9 - Hypothyroidism, unspecified (ICD-10) Essential hypertension ?I10 - Essential (primary) hypertension (ICD-10) CVA (cerebral vascular accident) ?I63.9 - Cerebral infarction, unspecified (ICD-10) Hypoglycemia ?E16.2 - Hypoglycemia, unspecified (ICD-10) Surgical History (Updated 02/04/24 @ 08:12 by Alissa Rey) History of carpal tunnel release of both wrists ?Z98.890 - Other specified postprocedural states (ICD-10) History of tonsillectomy and adenoidectomy ?Z90.89 - Acquired absence of other organs (ICD-10) H/O: hysterectomy ?Z90.710 - Acquired absence of both cervix and uterus (ICD-10) Family History (Updated 02/01/24 @ 09:34 by Serina Shook) Other Family history of hypertension Heart disease Social History (Updated 02/04/24 @ 08:24 by Alissa Rey) Within the past year, how often did you have a drink containing alcohol: never Score interpretation: A score less than 3 is consistent with normal alcohol consumption. Smoking status: Former smoker Non-prescribed substance use: denies use Previous occupational history: RETIRED Highest level of school completed/degree received: high school graduate Little interest or pleasure in doing things: not at all Feeling down, depressed, or hopeless: not at all Exam Narrative Exam Narrative: CONSTITUTIONAL: Patient appears drowsy, but easily arousable, answering questions and following commands appropriately SKIN: Was warm and dry. EYES: No scleral icterus. EARS, NOSE, THROAT: Moist mucosa. No JVD. RESPIRATORY: Clear to auscultation bilaterally, no wheezes, crackles, or stridor, no use of accessory muscles CARDIOVASCULAR: Normal rate and regular rhythm. There is no S3, S4, murmur, rub. Radial pulses are 2+ and symmetrical. GASTROINTESTINAL: Abdomen was soft, non-tender, and non-distended. There is no guarding or rebound tenderness MUSCULOSKELETAL: There is bilateral pitting edema lower extremities, left greater than right. No overlying erythema or cellulitic changes. NEUROLOGIC: Patient is alert and oriented to person place and time with normal speech. Memory is normal and thought process is intact. GCS 15. Sensation: sensation to light touch is intact bilaterally in upper and lower extremities. Motor: Good muscle tone. Strength is slightly diminished on the left side compared to the right. Approximately 4/5 strength in the left upper/lower extremities, 5/5 strength on the right. Cerebellar: Finger to nose intact. Gait testing deferred. Cranial Nerves: Pupils are round, reactive to light and accommodation. Extraocular movements are intact without ptosis. No nystagmus. Facial sensation intact bilaterally to light touch in the V1, V2, V3 distribution. Facial muscle strength is normal and equal bilaterally. Hearing is normal bilaterally. Palate and uvula elevate symmetrically. Shoulder shrug strong and equal bilaterally. Tongue protrudes midline and moves symmetrically. Constitutional Vital Signs, click to edit/add: Last Vital Signs Temp 97.9 F 12/08/24 08:51 Pulse 90 12/08/24 14:54 Resp 17 12/08/24 14:54 BP 143/71 H 12/08/24 14:54 Pulse Ox 92 L 12/08/24 13:30 O2 Del Method Room Air 12/08/24 08:51 Course Vital Signs Vital signs: Vital Signs Temperature 97.9 F 12/08/24 08:51 Pulse Rate 75 12/08/24 08:51 Respiratory Rate 18 12/08/24 08:51 Blood Pressure 149/113 H 12/08/24 08:51 Pulse Oximetry 94 L 12/08/24 08:51 Oxygen Delivery Method Room Air 12/08/24 08:51 Temperature 97.9 F 12/08/24 08:51 Pulse Rate 90 12/08/24 14:54 Respiratory Rate 17 12/08/24 14:54 Blood Pressure 143/71 H 12/08/24 14:54 Pulse Oximetry 92 L 12/08/24 13:30 Oxygen Delivery Method Room Air 12/08/24 08:51 Medical Decision Making MDM Narrative Medical decision making narrative: Patient is a 74-year-old female, history significant for CVA with residual left-sided weakness, known intracranial aneurysms, currently on Xarelto, presenting to the emergency department via EMS from [facility] for concerns of acute onset dizziness and nausea beginning 2 hours prior to arrival. Of note, the patient is DNR/CCA. Her vital signs on arrival are within normal limits. She is afebrile and hemodynamically stable. Patient is drowsy, but easily arousable with a GCS of 15. She does have residual left-sided weakness, however no new focal neurologic deficits are appreciated on exam. She otherwise has an unremarkable physical exam. Differential diagnosis includes CVA, posterior circulation stroke, peripheral vertigo, UTI, pneumonia, ACS, arrhythmia, or other electrolyte/metabolic derangement. IV was established and laboratory studies were obtained. She was given 4 mg IV Zofran for nausea. CT/CTA of the head/neck were ordered. 12 Lead EKG: Normal sinus rhythm at a rate of 69. Normal axis. No ST segment elevations. QRS, MT, and QTc interval within normal limits. Final impression: normal sinus rhythm without evidence of acute myocardial ischemia Chest x-ray independently reviewed/interpreted by myself demonstrated no acute cardiopulmonary process. Laboratory studies were unremarkable. No significant electrolyte or metabolic derangement. No evidence of acute kidney injury. No anemia, leukocytosis, or thrombocytopenia. No transaminitis or hyperbilirubinemia. Troponin nonelevated. Urinalysis was positive for UTI. CT/CTA independently reviewed interpreted myself and radiology demonstrated possible acute thrombosis of the left vertebral artery. No opacification from the origin of the vertebral artery to C1-C2. There appears to be good reconstitution distal to the lesion. On reevaluation, patient states she feels significantly proved and is almost entirely asymptomatic at this point. She was empirically treated with 1 g of IV ceftriaxone for her UTI. I did discuss the patient with neurosurgery at [facility], who recommended consulting neurosurgery who have capabilities for diagnostic angiogram - which might be needed to definitively rule out vertebral artery thrombosis. I discussed the patient with neurology, Dr. Wynn, at [facility]. Given that the patient is at her neurologic baseline with no new deficits, and is already on an appropriate treatment for VA thrombosis (Xarelto), he did not recommend any acute interventions or further diagnositc testing. On reevaluation, the patient looks very well. She states she is excited to be discharged home. She is eating chicken fingers and is currently asymptomatic. I discussed the findings and my discussion with neurosurgery with the patient and her family. They are agreeable to the plan going forward. I urged the patient to return to the emergency department for any new or concerning neurologic symptoms. She was given a prescription for Keflex 500 mg 3 times daily x 7 days for UTI. She was instructed follow-up with her PCP for further care. Patient understands and agrees to plan. FINAL IMPRESSION: #Acute dizziness, resolved #Acute urinary tract infection #Possible left vertebral artery thrombosis #History of prior CVA with residual left-sided weakness DISPOSITION: Discharged to [facility] CONDITION: Fair Medical Records Medical records reviewed: Yes I reviewed the patient's medical records Lab Data Lab results reviewed: Yes I reviewed the patient's lab results Labs: Lab Results 12/08/24 12/08/24 Range/Units 09:32 12:02 WBC 6.8 (4.0-11.0) 10^3/uL RBC 4.31 (4.20-5.40) 10^6/uL Hgb 12.1 (12.0-16.0) g/dL Hct 36.7 (36.0-48.0) % MCV 85.2 (81.0-99.0) fL MCH 28.1 (26.7-34.0) pg MCHC 33.0 (29.9-35.2) g/dL RDW 15.2 H (11.0-15.0) % Plt Count 219 (150-450) 10^3/uL MPV 10.0 (9.5-13.5) fL Neut % (Auto) 71.7 (43.0-75.0) % Lymph % (Auto) 19.9 L (20.5-60.0) % [place] % (Auto) 5.6 (1.7-12.0) % Eos % (Auto) 1.8 (0.9-7.0) % Baso % (Auto) 0.9 (0.2-2.0) % Neut # (Auto) 4.9 (1.4-6.5) 10^3/uL Lymph # (Auto) 1.4 (1.2-3.8) 10^3/uL [place] # (Auto) 0.4 (0.3-0.8) 10^3/uL Eos # (Auto) 0.1 (0.0-0.7) 10^3/uL Baso # (Auto) 0.1 (0.0-0.1) 10^3/uL Abs Immat Gran (auto) 0.01 (0.00-0.03) 10^3/uL Imm/Tot Granulo (auto) 0.1 (0.0-0.5) % PT 12.0 H (9.0-11.6) sec INR 1.15 APTT 27.1 (22.3-36.2) sec VBG pH 7.397 (7.330-7.430) VBG pCO2 41.0 (40.0-52.0) mmHg Sodium 145 (136-145) mmol/L Potassium 3.4 L (3.5-5.1) mmol/L Chloride 109 H (98-107) mmol/L Carbon Dioxide 24.8 (21.0-32.0) mmol/L Anion Gap 14.6 BUN 22.0 H (7.0-18.0) mg/dL Creatinine 0.69 (0.55-1.02) mg/dL Est GFR ( Amer) >60 (>=60 mL/min/1.73m^2) Est GFR (Non-Af Amer) >60 (>=60 mL/min/1.73m^2) BUN/Creatinine Ratio 31.9 Glucose 104 (74-106) mg/dL Calcium 9.4 (8.5-10.1) mg/dL Total Bilirubin 0.5 (0.2-1.0) mg/dL AST 25 (15-37) U/L ALT 33 (14-59) U/L Alkaline Phosphatase 116 (46-116) U/L Troponin I High Sens 10.4 (4.0-51.3) pg/mL Total Protein 7.4 (6.4-8.2) g/dL Albumin 3.4 (3.4-5.0) g/dL Globulin 4.0 g/dL Albumin/Globulin Ratio 0.9 Urine Color Lt. yellow (YELLOW) Urine Clarity Cloudy A (CLEAR) Urine pH 7.5 (5.0-9.0) Ur Specific [place] 1.010 (1.005-1.025) Urine Protein Negative (NEG/TRACE) mg/dL Urine Glucose (UA) Negative (NEGATIVE) mg/dL Urine Ketones Negative (NEGATIVE) mg/dL Urine Occult Blood Trace-i (NEGATIVE) Urine Nitrite Positive A (NEGATIVE) Urine Bilirubin Negative (NEGATIVE) Urine Urobilinogen 0.2 (0.2-1.0) EU/dL Ur Leukocyte Esterase Moderate A (NEGATIVE) Urine RBC 2-5 A (0-2) #/HPF Urine WBC >100 A (NONE SEEN) #/HPF Ur Squamous Epith Cells Few A (NONE/RARE) #/LPF Urine Crystals None seen (None Seen) #/HPF Urine Bacteria Large A (NONE SEEN) #/HPF Urine Casts None seen (NONE SEEN) #/LPF Urine Mucus None seen (NONE SEEN) Ur Culture Indicated? Yes-[facility] [place] Imaging Data CT scan - head: Attestation: I personally reviewed and interpreted this imaging study as follows: Radiologist's impression: ITS Impressions Chest X-Ray 12/08/24 09:23 IMPRESSION: BORDERLINE CARDIOMEGALY AND AORTIC ECTASIA NO ACUTE PULMONARY FINDINGS Impression dictated by: Deborah Lagunas M.D. 12/08/2024 11:02 AM Dictation Location: [place] [id number] Electronically authenticated by: [id number] Y Date: 12/08/2024 11:[address] 12/08/24 09:23 IMPRESSION: ATROPHY AND CHRONIC ISCHEMIC CHANGES. STABLE CALCIFIED LEFT MIDDLE CEREBRAL ARTERY ANEURYSM. NO ACUTE INTRACRANIAL ABNORMALITY. CTA OF THE HEAD AND NECK WITH CONTRAST COMPARISON: None Spiral images were obtained through the head neck following 100 MLO of Omnipaque 350. Sagittal and coronal MIP as well as 3-D volume rendered reconstructions of the carotid arteries and three affiliated of Lyle were reviewed. Stenosis is evaluated using NASCET criteria. This CT exam was performed using one or more following dose reduction techniques: Automated exposure control, adjustment of the mA and/or kV according to patient size, or use of iterative reconstruction technique. There is ectasia of the ascending aorta and aneurysmal dilatation of the imaged ascending aorta with diameter 4.7 cm. There is mild atherosclerotic plaque at the arch. There is minor plaque in question of a short dissection at the proximal left subclavian artery. The right vertebral artery is patent, without focal stenosis or evidence of dissection. The left vertebral artery is not opacified and may be thrombosed. There is a small amount of plaque at the carotid bifurcations extending of the proximal internal carotid arteries. There is less than 50% associated luminal narrowing. There are mild degenerative changes at the cervical spine. The upper imaged chest shows obstructive lung disease and scarring. There is some opacification of the left vertebral artery at the C1-2 level. It is smaller in caliber than the right. The right vertebral, basilar and posterior cerebral arteries show no significant findings. There is minor carotid siphon plaque, without significant associated stenosis. The anterior and left middle cerebral arteries are patent. There appears to be occlusion of one of the M2 branches on the right with diminished perfusion in that area compared to the left. This is best seen on the reconstructed images. Given the old infarct in this area on the brain imaging, this may be chronic. There is a 17 mm rim calcified nodular structure at the left temporal lobe which is adjacent to the middle cerebral artery. The middle cerebral artery shows slight irregularity at that site. There is no internal enhancement and this is probably a thrombosed aneurysm. IMPRESSION: NONOPACIFIED EXTRACRANIAL LEFT VERTEBRAL ARTERY SUGGESTING THROMBOSIS. 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 MINOR PLAQUE , WITHOUT ADDITIONAL CRITICAL STENOSIS OR VASCULAR OCCLUSIVE DISEASE. CALCIFIED, THROMBOSED LEFT MIDDLE CEREBRAL ARTERY ANEURYSM, ALSO SEEN ON PREVIOUS BRAIN IMAGING. THORACIC AORTIC ANEURYSM. INCIDENTAL OBSTRUCTIVE LUNG DISEASE. Impression dictated by: Deborah Lagunas M.D. 12/08/2024 11:32 AM Dictation Location: [place] [id number] Electronically authenticated by: [id number] Y Date: 12/08/2024 11:32 Head CTA 12/08/24 09:23 IMPRESSION: ATROPHY AND CHRONIC ISCHEMIC CHANGES. STABLE CALCIFIED LEFT MIDDLE CEREBRAL ARTERY ANEURYSM. NO ACUTE INTRACRANIAL ABNORMALITY. CTA OF THE HEAD AND NECK WITH CONTRAST COMPARISON: None Spiral images were obtained through the head neck following 100 MLO of Omnipaque 350. Sagittal and coronal MIP as well as 3-D volume rendered reconstructions of the carotid arteries and three affiliated of Lyle were reviewed. Stenosis is evaluated using NASCET criteria. This CT exam was performed using one or more following dose reduction techniques: Automated exposure control, adjustment of the mA and/or kV according to patient size, or use of iterative reconstruction technique. There is ectasia of the ascending aorta and aneurysmal dilatation of the imaged ascending aorta with diameter 4.7 cm. There is mild atherosclerotic plaque at the arch. There is minor plaque in question of a short dissection at the proximal left subclavian artery. The right vertebral artery is patent, without focal stenosis or evidence of dissection. The left vertebral artery is not opacified and may be thrombosed. There is a small amount of plaque at the carotid bifurcations extending of the proximal internal carotid arteries. There is less than 50% associated luminal narrowing. There are mild degenerative changes at the cervical spine. The upper imaged chest shows obstructive lung disease and scarring. There is some opacification of the left vertebral artery at the C1-2 level. It is smaller in caliber than the right. The right vertebral, basilar and posterior cerebral arteries show no significant findings. There is minor carotid siphon plaque, without significant associated stenosis. The anterior and left middle cerebral arteries are patent. There appears to be occlusion of one of the M2 branches on the right with diminished perfusion in that area compared to the left. This is best seen on the reconstructed images. Given the old infarct in this area on the brain imaging, this may be chronic. There is a 17 mm rim calcified nodular structure at the left temporal lobe which is adjacent to the middle cerebral artery. The middle cerebral artery shows slight irregularity at that site. There is no internal enhancement and this is probably a thrombosed aneurysm. IMPRESSION: NONOPACIFIED EXTRACRANIAL LEFT VERTEBRAL ARTERY SUGGESTING THROMBOSIS. 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 MINOR PLAQUE , WITHOUT ADDITIONAL CRITICAL STENOSIS OR VASCULAR OCCLUSIVE DISEASE. CALCIFIED, THROMBOSED LEFT MIDDLE CEREBRAL ARTERY ANEURYSM, ALSO SEEN ON PREVIOUS BRAIN IMAGING. THORACIC AORTIC ANEURYSM. INCIDENTAL OBSTRUCTIVE LUNG DISEASE. Impression dictated by: Deborah Lagunas M.D. 12/08/2024 11:32 AM Dictation Location: [place] [id number] Electronically authenticated by: [id number] Y Date: 12/08/2024 11:32 Neck CTA 12/08/24 09:23 IMPRESSION: ATROPHY AND CHRONIC ISCHEMIC CHANGES. STABLE CALCIFIED LEFT MIDDLE CEREBRAL ARTERY ANEURYSM. NO ACUTE INTRACRANIAL ABNORMALITY. CTA OF THE HEAD AND NECK WITH CONTRAST COMPARISON: None Spiral images were obtained through the head neck following 100 MLO of Omnipaque 350. Sagittal and coronal MIP as well as 3-D volume rendered reconstructions of the carotid arteries and three affiliated of Lyle were reviewed. Stenosis is evaluated using NASCET criteria. This CT exam was performed using one or more following dose reduction techniques: Automated exposure control, adjustment of the mA and/or kV according to patient size, or use of iterative reconstruction technique. There is ectasia of the ascending aorta and aneurysmal dilatation of the imaged ascending aorta with diameter 4.7 cm. There is mild atherosclerotic plaque at the arch. There is minor plaque in question of a short dissection at the proximal left subclavian artery. The right vertebral artery is patent, without focal stenosis or evidence of dissection. The left vertebral artery is not opacified and may be thrombosed. There is a small amount of plaque at the carotid bifurcations extending of the proximal internal carotid arteries. There is less than 50% associated luminal narrowing. There are mild degenerative changes at the cervical spine. The upper imaged chest shows obstructive lung disease and scarring. There is some opacification of the left vertebral artery at the C1-2 level. It is smaller in caliber than the right. The right vertebral, basilar and posterior cerebral arteries show no significant findings. There is minor carotid siphon plaque, without significant associated stenosis. The anterior and left middle cerebral arteries are patent. There appears to be occlusion of one of the M2 branches on the right with diminished perfusion in that area compared to the left. This is best seen on the reconstructed images. Given the old infarct in this area on the brain imaging, this may be chronic. There is a 17 mm rim calcified nodular structure at the left temporal lobe which is adjacent to the middle cerebral artery. The middle cerebral artery shows slight irregularity at that site. There is no internal enhancement and this is probably a thrombosed aneurysm. IMPRESSION: NONOPACIFIED EXTRACRANIAL LEFT VERTEBRAL ARTERY SUGGESTING THROMBOSIS. 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 MINOR PLAQUE , WITHOUT ADDITIONAL CRITICAL STENOSIS OR VASCULAR OCCLUSIVE DISEASE. CALCIFIED, THROMBOSED LEFT MIDDLE CEREBRAL ARTERY ANEURYSM, ALSO SEEN ON PREVIOUS BRAIN IMAGING. THORACIC AORTIC ANEURYSM. INCIDENTAL OBSTRUCTIVE LUNG DISEASE. Impression dictated by: Deborah Lagunas M.D. 12/08/2024 11:32 AM Dictation Location: [place] [id number] Electronically authenticated by: [id number] Y Date: 12/08/2024 11:32 ECG Data Attestation: I personally reviewed and interpreted this ECG as follows: Discharge Plan Discharge Chief Complaint: Dizziness Clinical Impression: Acute UTI, Dizziness Patient Disposition: Home, Self-Care Time of Disposition Decision: 15:18 Condition: Good Mode of Transportation: Private Vehicle Prescriptions / Home Meds: No Action insulin glargine [Lantus U-100 Insulin] subcut DAILY venlafaxine 37.5 mg tablet 37.5 mg PO DAILY lisinopril 20 mg tablet 20 mg PO DAILY Xarelto 10 mg tablet 10 mg PO DAILY atorvastatin [Lipitor] 20 mg tablet 40 mg PO DAILY pregabalin [Lyrica] 25 mg capsule 25 mg PO BID ropinirole 0.5 mg tablet 0.5 mg PO BEDTIME tramadol 50 mg tablet 50 mg PO Q6H PRN (Reason: pain) cholecalciferol (vitamin D3) [Vitamin D3] 25 mcg (1,000 unit) capsule 25 mcg PO DAILY calcium 500 mg tablet potassium chloride 10 mEq capsule, extended release 40 meq PO DAILY Print Language: Angolan Instructions: Dizziness (ED), Urinary Tract Infection in Older Adults (ED) Referrals: MAICOL PATINO [Primary Care Provider, Family Practice] - 1 week
[2024-12-08 11:52] LABS: INR 1.15; Partial Thromboplastin Time 27.1 sec (22.3-36.2); Prothrombin Time 12.0 sec (9.0-11.6)
[2024-12-08 12:27] LABS: Glucose Urine UA NEGATIVE (NEGATIVE)
[2024-12-08 12:43] LABS: Cast Seen? NONE SEEN #/LPF (NONE SEEN); Crystals Seen? None Seen #/HPF (None Seen); Urine Culture Indicated YES-FRMC
--- NOTE | 2024-12-08 13:53 | PC.NURSE ---
Sandra from [facility] called for update on patient. Returned call at this time. Updated on plan of care. Will give her a call back once definite plan is determined.
--- NOTE | 2024-12-08 15:07 | PC.NURSE ---
Patient report given to SHREYA Lawrence at this time
== END 2024-12-08 16:55 | disposition home or self-care (01) ==
PROVIDERS: Emergency Provider Student in an Organized Health Care Education/Training Program; PCP Family Medicine
DX: R42 Dizziness and giddiness (principal); N39.0 Urinary tract infection, site not specified; I69.354 Hemiplegia and hemiparesis following cerebral infarction affecting left non-dominant side; Z79.01 Long term (current) use of anticoagulants; I67.1 Cerebral aneurysm, nonruptured; I71.20 Thoracic aortic aneurysm, without rupture, unspecified; Z87.891 Personal history of nicotine dependence; Z66 Do not resuscitate
CPT/HCPCS: 36415; 70450; 70496; 70498; 71045; 80053; 81001; 82800; 84484; 85025; 85610; 85730; 87086; 87088; 87186; 93005; 96374; 96375; 99285; J0696; J2405; Q9967